=== PATIENT | male | born 1965 | race Caucasian/White ===

== ENCOUNTER 2023-06-25 12:18 | Emergency (ER) | payer MEDICARE, SELFPAY ==
[2023-06-25 12:26] VITALS: BP 120/68; PULSE 82; RESP 20; TEMP 37.2; O2SAT 93; BMI 37.0
--- NOTE | 2023-06-25 13:07 | XR_ITS ---
The [address] [address] Patient Name: ZOIE HEATH MRN: [id number] date: 1965 Sex: M Assigned Patient Location: ER Current Patient Location: ED.MAIN Accession/Order Number: [id number] Exam Date: 06/25/2023 13:15 Report Date: 06/25/2023 13:43 At the request of: VIKY ESPINOZA Procedure: XR chest 2V EXAM: XR chest 2V HISTORY: cough COMPARISON: Chest study dated 11/05/2014 TECHNIQUE: PA and lateral views of the chest were obtained. FINDINGS: Heart and mediastinal contours are unremarkable in appearance. Small faint patchy density overlying the right mid lung field laterally on PA view which may represent atelectatic, fibrotic and/or infiltrative change. No obvious pneumothorax. Mild degenerative changes in the dorsal spine. XR/XR chest 2V IMPRESSION: Mild atelectatic and/or fibrotic and/or minimal infiltrative changes in the right midlung field laterally as described. Follow-up as needed. Electronically authenticated by: OSMANI DINH Date: 06/25/2023 13:43
[2023-06-25 13:45] LABS: Influenza Virus A Antigen Negative; Influenza Virus B Antigen Negative; Internal Control Within Normal Limits
[2023-06-25 13:46] LABS: SARS-CoV-2 Ag NEGATIVE (NEGATIVE)
--- NOTE | 2023-06-25 13:56 | ED.GENADUL1 ---
HPI - General Adult General Chief complaint: Upper Respiratory Infection Stated complaint: URTI Time Seen by Provider: 06/25/23 12:24 Source: patient Mode of arrival: walk-in Limitations: no limitations History of Present Illness HPI narrative: cough for almost 2 weeks. Initially had ear fullness and nasal congestion but that is gone now after taking mucinex and robitussin. However the cough continues and he feels more congestion in my chest . He vomited once but no additional vomiting or any diarrhea. No urinary symptoms. No chest pain, dizziness or syncope. no shortness of breath. Related Data Home Medications Medication Instructions Recorded Confirmed aspirin 81 mg capsule 81 mg PO DAILY 06/25/23 06/25/23 carbamazepine 200 mg 200 mg PO BID 06/25/23 06/25/23 capsule,extended release [id number] cetirizine 10 mg tablet (All Day 10 mg PO DAILY 06/25/23 06/25/23 Allergy (cetirizine)) escitalopram oxalate 20 mg tablet 20 mg PO QDAY 06/25/23 06/25/23 (Lexapro) magnesium 200 mg tablet 400 mg PO BID 06/25/23 06/25/23 montelukast 10 mg tablet 10 mg PO DAILY 06/25/23 06/25/23 (Singulair) mycophenolate sodium 180 mg 1,080 mg PO BID 06/25/23 06/25/23 tablet,delayed release (Myfortic) olanzapine 2.5 mg tablet 2.5 mg PO DAILY 06/25/23 06/25/23 ropinirole 0.5 mg tablet 0.5 mg PO DAILY 06/25/23 06/25/23 ropinirole 0.5 mg tablet 0.5 mg PO DAILY 06/25/23 06/25/23 Previous Rx's Medication Instructions Recorded azithromycin 250 mg tablet See Rx Instructions PO .COMPLEX #6 06/25/23 tabs mumklwiipqtsmos-mhdebzakpcniorp-TU 5 ml PO Q6H PRN cold symptoms #118 06/25/23 2 mg-30 mg-10 mg/5 mL oral syrup mL (Bromfed DM) Allergies Allergy/AdvReac Type Severity Reaction Status Date / Time NSAIDS (Non-Steroidal Allergy Verified 06/25/23 12:26 Anti-Inflamma PFSH PFSH Social History Smoking status: Former smoker Exam Narrative Exam Narrative: Nurses notes and vital signs reviewed and patient is not hypoxic -but room air pulse ox is 93%. afebrile General: Well-appearing and in no apparent distress. Skin: Warm, dry, no pallor noted. No rash. Head: Normocephalic, atraumatic. Neck: Supple, non-tender. No cervical lymphadenopathy Eye: Pupils are equal, round and EOMI. No scleral icterus. Ears, Nose, Mouth, and Throat: TM are clear, no posterior oropharynx erythema or nasal mucosal hypertrophy, uvula is mid-line Oral mucosa is moist Cardiovascular: Regular Rate and Rhythm without murmur, gallop or rub. Respiratory: No accessory muscle use or respiratory distress. Lungs with scattered rhonchi GI: Abdomen is soft, non-distended. Normal bowel sounds. No tenderness to palpation. No rebound, guarding, or rigidity noted. Neurological: A&O x4. No cranial nerve dysfunction observed. No truncal ataxia. Moves all extremities. Sensation intact. Psychiatric: Cooperative and interactive. Normal mood and affect. Constitutional Vital Signs, click to edit/add: Last Vital Signs Temp 99.0 F 06/25/23 12:26 Pulse 82 06/25/23 12:26 Resp 20 06/25/23 12:26 BP 120/68 06/25/23 12: Pulse Ox 93 L 06/25/23 12:26 Course Vital Signs Vital signs: Vital Signs Temperature 99.0 F 06/25/23 12:26 Pulse Rate 82 06/25/23 12:26 Respiratory Rate 20 06/25/23 12:26 Blood Pressure 120/68 06/25/23 12:26 Pulse Oximetry 93 L 06/25/23 12:26 Temperature 99.0 F 06/25/23 12:26 Pulse Rate 82 06/25/23 12:26 Respiratory Rate 20 06/25/23 12:26 Blood Pressure 120/68 06/25/23 12:26 Pulse Oximetry 93 L 06/25/23 12:26 Medical Decision Making MDM Narrative Medical decision making narrative: Swabs for influenza and covid were negative. Symptoms over 2 weeks and now in chest with continued sputum production. Patient discharged home with prescriptions for bromfed syrup for the cough a course of azithromycin. due to duration of illness. ED return if he worsens. Patient advised to rest, stay at home, practice social distancing, take Motrin and Tylenol for pain and fever if not allergic, stay well hydrated with Gatorade or similar drinks if vomiting or eat as tolerated if not and take any meds as prescribed. Reviewed reasons to return including rapid increase in respiratory rate, shortness of breath, confusion, inability to keep down sips of swallowed liquids for more than 24 hours. Asked patient to encourage any ill contacts to stay home and practice similar advice. Lab Data Lab results reviewed: Yes I reviewed the patient's lab results Labs: Lab Results 06/25/23 Range/Units 13:20 SARS-CoV-2 (PCR) Negative (NEGATIVE) Influenza Type A Ag Negative Influenza Type B Ag Negative Discharge Plan Discharge Chief Complaint: Upper Respiratory Infection Clinical Impression: Upper respiratory infection Time of Disposition Decision: 13:59 Prescriptions / Home Meds: New hsrixqmktdvyatu-ractsrkfl-YM [Bromfed DM] 2-30-10 mg/5 mL syrup 5 ml PO Q6H PRN (Reason: cold symptoms) Qty: 118 0RF azithromycin 250 mg tablet See Rx Instructions .ROUTE .COMPLEX Qty: 6 0RF Rx Instructions: For 250 mg dose pack: take 500 mg today (day 1), then 250 mg for 4 days (days 2-5) No Action olanzapine 2.5 mg tablet 2.5 mg PO DAILY magnesium 200 mg tablet 400 mg PO BID cetirizine [All Day Allergy (cetirizine)] 10 mg tablet 10 mg PO DAILY montelukast [Singulair] 10 mg tablet 10 mg PO DAILY ropinirole 0.5 mg tablet 0.5 mg PO DAILY ropinirole 0.5 mg tablet 0.5 mg PO DAILY aspirin 81 mg capsule 81 mg PO DAILY carbamazepine 200 mg capsule, ER multiphase 12 hr 200 mg PO BID escitalopram oxalate [Lexapro] 20 mg tablet 20 mg PO QDAY mycophenolate sodium [Myfortic] 180 mg tablet,delayed release (DR/EC) 1,080 mg PO BID Instructions: Upper Respiratory Infection (ED) Stand Alone Forms: Portal Instructions Referrals: Physician,Non-Staff, MD [Primary Care Provider] - 1 week
[2023-06-26 10:05] LABS: SARS-CoV-2 NAA NOT DETECTED (NOT DETECTE)
== END 2023-06-25 14:10 | disposition home or self-care (01) ==
PROVIDERS: Emergency Provider Emergency Medicine
DX: J06.9 Acute upper respiratory infection, unspecified (principal); Z79.82 Long term (current) use of aspirin; Z79.899 Other long term (current) drug therapy; Z87.891 Personal history of nicotine dependence; Z20.822 Contact with and (suspected) exposure to COVID-19
CPT/HCPCS: 71046; 87635; 87804; 87811; 99284

== ENCOUNTER 2023-10-29 22:13 | Emergency (ER) | payer MEDICARE, SELFPAY ==
[2023-10-29 22:22] VITALS: BP 124/79; PULSE 83; TEMP 37; O2SAT 97; BMI 36.3
--- OUTSIDE RECORDS SUMMARY | 2023-10-29 22:27 | XMS_ITS | CCD ---
Author Organization [facility] Care Team Providers Care 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 Name Role Phone UNKNOWN, PROVIDER Unavailable Unavailable CALL, DOCTOR ON Unavailable Unavailable CALL, DOCTOR ON Unavailable Unavailable KHAVARI, FERESHTE Unavailable Unavailable UNKNOWN, PROVIDER Unavailable Unavailable EL-HINNAWI, ARIEL M Unavailable Unavailable EL-HINNAWI, ARIEL M Unavailable Unavailable KHAVARI, FERESHTE Unavailable Unavailable UNKNOWN, PROVIDER Unavailable Unavailable CALL, DOCTOR ON Unavailable Unavailable CALL, DOCTOR ON Unavailable Unavailable KHAVARI, FERESHTE Unavailable Unavailable KHAVARI, FERESHTE Unavailable Unavailable EL-HINNAWI, ARIEL M Unavailable Unavailable EL-HINNAWI, ARIEL M Unavailable Unavailable UNKNOWN, PROVIDER Unavailable Unavailable KHAVARI, FERESHTE Unavailable Unavailable EL-HINNAWI, ARIEL M Unavailable Unavailable EL-HINNAWI, ARIEL M Unavailable Unavailable UNKNOWN, PROVIDER Unavailable Unavailable Transplant, Coordinator Unavailable Janet, Mariana A Unavailable [phone] FOSTER, JORGE Unavailable Unavailable FOSTER, JORGE Unavailable Unavailable FOSTER, JORGE Unavailable Unavailable AVERY, ROSY L Unavailable Unavailable AVERY, ROSY L Unavailable Unavailable SELF, SELF Unavailable Unavailable AVERY, ROSY L Unavailable Unavailable AVERY, ROSY L Unavailable Unavailable AVERY, ROSY L Unavailable Unavailable SELF, SELF Unavailable Unavailable FOSTER, JORGE Unavailable Unavailable FOSTER, JORGE Unavailable Unavailable JONES, TUCKER Unavailable Unavailable JONES, TUCKER Unavailable Unavailable Eduardubachiterrell, Mariana A Primary Care Unavailable Familia Stringer Attending Unavailable Transplant, Coordinator Unavailable Janet TRACK RIDER-MACHINE STAMPER, Mariana A Primary Care Provide r Transplant, Coordinator Unavailable Transplant, Coordinator Unavailable Trubachik TRACK RIDER-MACHINE STAMPER, Mariana A Primary Care Provide r Trubachik MACHINE STAMPER, Mariana Pollo Primary Care Provider [place]ach[place] TRACK RIDER-MACHINE STAMPER, Mariana A Primary Care Provide r JASVIR VILCHIS Attending Unavailable TRUBACHIK, MARIANA POLLO Primary Care Unavailable JASVIR VILCHIS Attending Unavailable TRUBACHIK, MARIANA POLLO Primary Care Unavailable CHARLEY PASTRANA Attending Unavailable TRUBACHIK, MARIANA POLLO Primary Care Unavailable TRUBACHIK, MARIANA POLLO Primary Care Unavailable MARY MOREIRA Attending Unavailable Transplant, Coordinator Unavailable [phone] Trubach[place] TRACK RIDER-MACHINE STAMPER, Mariana A Primary Care Provide r Transplant, Coordinator Unavailable Trubachik TRACK RIDER-MACHINE STAMPER, Mariana A Primary Care Provide r TRUBACHIK, MARIANA A Primary Care Unavailable TRUBACHIK, MARIANA A Primary Care Unavailable ISABELA TRUONG Attending Unavailable TRUBACHIK, MARIANA A Primary Care Unavailable ELIZABETH HERNADEZ Attending Unavailable TRUBACHIK, MARIANA A Primary Care Unavailable RAHEEM ARCHULETA Attending Unavailable JACKSON SHAFFER Attending Unavailable TRUBACHIK, MARIANA A Primary Care Unavailable TRUBACHIK, MARIANA A Primary Care Unavailable SANJIV, COLIN Referring Unavailable SANJIV, COLIN Attending Unavailable TRUBACHIK, MARIANA A Primary Care Unavailable CATY PENN Referring Unavailabl e CATY PENN Attending Unavailabl e TRUBACHIK, MARIANA A Primary Care Unavailable SANJIV, COLIN Referring Unavailable SANJIV, COLIN Attending Unavailable TRUBACHIK, MARIANA A Primary Care Unavailable TRUBACHIK, MARIANA A Primary Care Unavailable TRUBACHIK, MARIANA A Attending Unavailable SELF, SELF Referring Unavailable TRUBACHIK, MARIANA A Primary Care Unavailable TRUBACHIK, MARIANA A Attending Unavailable SELF, SELF Referring Unavailable BARK, ILENE E Attending Unavailable TRUBACHIK, MARIANA A Primary Care Unavailable TRUBACHIK, MARIANA A Referring Unavailable BARK, ILENE E Referring Unavailable TRUBACHIK, MARIANA A Primary Care Unavailable BARK, ILENE E Attending Unavailable SELF, SELF Referring Unavailable TRUBACHIK, MARIANA A Primary Care Unavailable CATY PENN Referring Unavaila ble GULSHAN, SCHUYLER K Attending Unavailable TRUBACHIK, MARIANA A Primary Care Unavailable REYNALDO MARES Attending Unavailable TRUBACHIK, MARIANA A Primary Care Unavailable SELF, SELF Referring Unavailable TRUBACHIK, MARIANA A Primary Care Unavailable SALBADOR LAWRENCE Attending Unavailable SELF, SELF Referring Unavailable TRUBACHIK, MARIANA A Primary Care Unavailable SELF, SELF Referring Unavailable TYCHONIEVICHCATY Attending Unavaila ble SELF, SELF Referring Unavailable TRUBACHIK, MARIANA A Primary Care Unavailable TYCHONIEVCATY WAYNE Attending Unavaila ble TRUBACHIK, MARIANA A Primary Care Unavailable TRUBACHIK, MARIANA A Referring Unavailable TYCHOCATY CHAPMAN Attending Unavaila ble TRUBACHIK, MARIANA A Primary Care Unavailable TRUBACHIK, MARIANA A Referring Unavailable TYCATY MARTI Attending Unavaila ble TYCHONIEVCATY WAYNE Referring Unavaila ble TRUBACHIK, MARIANA A Primary Care Unavailable TYCHOCATY CHAPMAN Attending Unavaila ble Allergies Allergy Classification Reported Allergen(s) Allergy Type Date of Onset Reaction(s) Facility (20 sources) *Seasonal Propensity to adverse reactions to substance 04-21-2021 [facility] (6 sources) Non-steroidal anti-inflammator y agent Propensity to adverse reactions to drug 04-16-2023 [facility] Medications Current Medications Medication Drug Class(es) Dates Sig (Normalized) Sig (Original) acyclovir 0.05 mg/mg topical ointment (5 sources) Herpesvirus Nucleoside Analog DNA Polymerase Inhibitor, Herpes Simplex Virus Nucleoside Analog DNA Polymerase Inhibitor, Herpes Zoster Virus Nucleoside Analog DNA Polymerase Inhibitor Start: 03-28-2018 acyclovir 5 % Ointment Apply topically to all lesions 6 times daily X 7 days. 1 Tube 0 03/28/2018 Active [id number] 200 actuat albuterol 0.09 mg/actuat metered dose inhaler (5 sources) beta2-Adrenergic Agonist Start: 08-30-2022 End: 09-06-2022 take 2 puff(s) by inhalation every six hours as needed for wheezing albuterol 90 mcg/actuation inhaler Indications: Viral URI Inhale 2 (two) puffs every 6 (six) hours as needed for wheezing . 6.7 g 0 08/30/2022 Active alclometasone dipropionate 0.5 mg/ml topical cream (20 sources) Corticosteroid Start: 04-01-2020 Alclometasone Dipropionate 0.05 % Cream Indications: Seborrheic dermatitis Apply to affected area 1-2 times daily when skin flared 45 g 3 04/01/2020 Active Start: 04-01-2020 alclometasone (ACLOVATE) 0.05 % cream Apply to affected area 1-2 times daily when skin flared 0 04/01/2020 Active amoxicillin 875 mg / clavulanate 125 mg oral tablet (3 sources) Penicillin-class Antibacterial Start: 10-26-2022 take 1 tablet by mouth twice daily Amoxicillin-clavulanate 875-125 MG tablet Take 1 tablet by mouth Twice daily. 0 10/26/2022 Active asenapine 2.5 mg sublingual tablet (5 sources) Atypical Antipsychotic Start: 01-14-2018 Asenapine Maleate (SAPHRIS) 2.5 MG Tab SL 2.5 mg at bedtime. 01/14/2018 Active aspirin 81 mg chewable tablet (20 sources) Platelet Aggregation Inhibitor, Nonsteroidal Anti-inflammatory Drug Start: 10-14-2017 aspirin 81 MG Chew Tab chewable tablet Chew 1 tablet daily every morning. ..Please obtain future renewals of this prescription from your primary care provider. 30 tablet 11 10/14/2017 Active azithromycin 250 mg oral tablet (2 sources) Macrolide Antimicrobial Start: 09-02-2022 End: 09-07-2022 take 2 tablets by mouth once daily, then take 1 tablet by mouth once daily azithromycin (ZITHROMAX) 250 MG tablet Indications: Sinusitis, unspecified chronicity, unspecified location Take 2 (two) tablets (500 mg total) by mouth daily for 1 day, THEN 1 (one) tablet (250 mg total) daily for 4 days. 6 tablet 0 09/02/2022 09/07/2022 Active benzonatate 100 mg oral capsule (4 sources) Non-narcotic Antitussive Start: 08-30-2022 End: 09-06-2022 take 1 capsule by mouth three times daily as needed for cough benzonatate (TESSALON) 100 MG capsule Indications: Viral URI Take 1 (one) capsule (100 mg total) by mouth 3 (three) times a day as needed for cough . 20 capsule 0 08/30/2022 09/06/2022 Active calcium citrate 1200 mg oral tablet (20 sources) take 1200 mg by mouth twice daily CALCIUM CITRATE PO Take 1,200 mg by mouth 2 times daily. Active take 1200 mg by mouth once daily CALCIUM CITRATE PO Take 1,200 mg by mouth daily. 0 Active carBAMazepine 100 mg chewable tablet (20 sources) Mood Stabilizer Start: 04-21-2021 carBAMazepine 100 MG Chew Tab Take 2 tablets daily in the morning and 3 tablets daily in the evening 150 tablet 04/21/2021 Active Start: 12-30-2017 carBAMazepine 100 MG Chew Tab Take 200 mg in the morning & take 200 mg tab along with a 100 mg tab for a total dose of 300 mg in the evening. 14 tablet 0 12/30/2017 Active Start: 12-30-2017 carBAMazepine 200 MG Tab Take 200 mg in the morning & take 200 mg tab along with a 100 mg tab for a total dose of 300 mg in the evening. 28 tablet 0 12/30/2017 Active cetirizine hydrochloride 10 mg oral tablet (20 sources) Histamine-1 Receptor Antagonist Start: 06-28-2023 take 1 tablet by mouth once daily Cetirizine 10 MG tablet Take 1 tablet by mouth daily. 90 tablet 1 06/28/2023 Active Start: 12-05-2021 End: 10-29-2022 take 1 tablet by mouth once daily Cetirizine 10 MG tablet Take 1 tablet by mouth daily. 90 tablet 1 10/29/2022 Active Start: 07-10-2021 take 1 tablet by bernice th once daily cetirizine 10 MG tablet Take 1 tablet by mouth daily. 90 tablet 1 07/10/2021 Active Start: 02-11-2018 End: 05-20-2018 take 1 tablet by mouth once daily cetirizine 10 MG Tab tablet Take 1 tablet by mouth daily. 30 tablet 5 05/20/2018 Active chlorthalidone 25 mg oral tablet (6 sources) Thiazide-like Diuretic take 25 mg by mouth once daily Chlorthalidone (THALITONE PO) Take 25 mg by mouth daily. Active escitalopram 20 mg oral tablet (20 sources) Serotonin Reuptake Inhibitor Start: 021 take 1 tablet by mouth once daily in the morning escitalopram 20 MG tablet Take 1 tablet by mouth daily every morning. 30 tablet 04/21/2021 Active Start: 04-29-2015 take 1 tablet by bernice th at bedtime escitalopram 20 MG Tab tablet Take 20 mg by mouth at bedtime. 04/29/2015 Active fluticasone propionate 0.05 mg/actuat metered dose nasal spray (5 sources) Corticosteroid Start: 04-15-2017 fluticasone 50 MCG/ACT Suspension nasal spray 2 sprays by Nasal route daily. 1 Bottle 2 04/15/2017 Active ketoconazole 20 mg/ml topical cream (20 sources) Azole Antifungal Start: 04-01-2020 ketoconazole 2 % Cream cream Indications: Seborrheic dermatitis Apply to affected area up to twice daily --> okay to use every day without breaks if needed 30 g 3 04/01/2020 Active Start: 04-01-2020 ketoconazole ( NIZORAL) 2 % cream Apply to affected area up to twice daily --> okay to use every day without breaks if needed 0 04/01/2020 Active Start: 11-05-2017 ketoconazole 2 % Shampoo shampoo Apply 1 Application topically 3 times weekly. 120 mL 5 11/05/2017 Active losartan potassium 25 mg oral tablet (20 sources) Angiotensin 2 Receptor Matthew Start: 09-19-2022 take 1 tablet by mouth once daily Losartan 25 MG tablet Take 1 tablet by mouth daily. 90 tablet 3 09/19/2022 Active Start: 09-15-2020 End: 09-18-2021 take 1 tablet by mouth once daily Losartan 25 MG tablet Take 1 tablet by mouth daily. 90 tablet 3 09/19/2022 Active Magnesium Oxide (20 sources) Start: 09-18-2021 take 1 tablet by bernice th twice daily magnesium oxide 400 (241.3 Mg) MG tablet Take 1 tablet by mouth 2 times daily. 180 tablet 3 09/18/2021 Active Start: 09-15-2020 End: 09-18-2021 take 1 tablet by mouth twice daily magnesium oxide 400 (241.3 Mg) MG tablet Take 1 tablet by mouth 2 times daily. 180 tablet 3 09/18/2021 Active Start: 02-27-2018 take 1 tablet by bernice th twice daily magnesium oxide 400 (241.3 Mg) MG Tab tablet Take 1 tablet by mouth 2 times daily. 60 tablet 11 02/27/2018 Active montelukast 10 mg oral tablet (20 sources) Leukotriene Receptor Antagonist Start: 06-28-2023 take 1 tablet by mouth once daily Montelukast 10 MG tablet Take 1 tablet by mouth daily. 90 tablet 1 06/28/2023 Active Start: 12-05-2021 End: 10-29-2022 take 1 tablet by mouth once daily Montelukast 10 MG tablet Take 1 tablet by mouth daily. 90 tablet 1 10/29/2022 Active Start: 07-10-2021 take 1 tablet by bernice th once daily montelukast 10 MG tablet Take 1 tablet by mouth daily. 90 tablet 1 07/10/2021 Active Start: 03-11-2018 take 1 tablet by bernice th once daily montelukast 10 MG Tab tablet Take 1 tablet by mouth daily. 30 tablet 5 03/11/2018 Active Multiple Vitamins-Minerals (Multivitamins) Chew Tab (20 sources) Start: 08-12-2019 Multiple Vitam ins-Minerals (Multivitamins) Chew Tab Indications: S/P laparoscopic sleeve gastrectomy Chew 2 tablets daily. May take pediatric or adult chalky chewable vitamin; double the recommended daily dose. 08/12/2019 Active Start: 08-12-2019 Multiple Vitam ins-Minerals (Multivitamins) Chew Tab Indications: S/P laparoscopic sleeve gastrectomy Chew 2 tablets daily. May take pediatric or adult chalky chewable vitamin; double the recommended daily dose. 0 08/12/2019 Active mycophenolic acid 180 mg delayed release oral tablet (20 sources) Antimetabolite Immunosuppressant Start: 09-18-2021 take 3 tablets by mouth every twelve hours mycophenolate sodium (MYFORTIC) 180 MG EC tablet Take 3 (three) tablets (540 mg total) by mouth every 12 (twelve) hours . 0 09/18/2021 Active Start: 05-18-2021 End: 09-18-2021 take 3 tablets by mouth every twelve hours mycophenolate sodium (MYFORTIC) [address] Take 3 tablets by mouth every 12 hours. 560 tablet 3 09/18/2021 Active Start: 09-18-2017 take 2 tablets by mo [facility] every twelve hours mycophenolate sodium (generic) [address] Take 2 tablets by mouth every 12 hours. 120 tablet 11 09/18/2017 Active ofloxacin 3 mg/ml ophthalmic solution (4 sources) Quinolone Antimicrobial Start: 04-21-2022 End: 09-08-2022 take 1 drop(s) into the eye(s) four times daily ofloxacin 0.3 % ophthalmic solution Place 1 drop in right eye 4 times daily. 5 mL 0 04/21/2022 Active OLANZapine 2.5 mg oral tablet (20 sources) Atypical Antipsychotic Start: 04-21-2021 take 1 tablet by mouth once daily in the morning OLANZapine 2.5 MG tablet Take 1 tablet by mouth daily every morning. 30 tablet 04/21/2021 Active ondansetron 4 mg oral tablet (5 sources) Serotonin-3 Receptor Antagonist Start: 02-22-2017 take 1 tablet by mouth every eight hours as needed ondansetron 4 MG Tab take 1 tablet by mouth every 8 hours as needed for Nausea / Vomiting or Nausea.. 90 tablet 1 02/22/2017 Active pantoprazole 40 mg delayed release oral tablet (8 sources) Proton Pump Inhibitor Start: 03-07-2023 take 1 tablet by mouth twice daily Pantoprazole (Protonix) [address] tablet DR Take 1 tablet by mouth 2 times daily. 180 tablet 2 03/07/2023 Active Start: 12-10-2022 take 1 tablet by bernice twice daily Pantoprazole (Protonix) [address] tablet DR Take 1 tablet by mouth 2 times daily. 180 tablet 0 12/10/2022 Active polymyxin b 72484 unt/ml / trimethoprim 1 mg/ml ophthalmic solution (3 sources) Dihydrofolate Reductase Inhibitor Antibacterial, Polymyxin-class Antibacterial Start: 09-02-2022 End: 09-09-2022 take 1 drop(s) into the eye(s) every six hours trimethoprim-polymyxin b (POLYTRIM) 10,000 unit- 1 mg/mL Drop ophthalmic solution Indications: Acute conjunctivitis of both eyes, unspecified acute conjunctivitis type Apply 1 (one) drop to eye every 6 (six) hours for 7 days . 10 mL 0 09/02/2022 09/03/2022 Discontinued Start: 03-02-2022 End: 03-09-2022 take 1 drop(s) into the eye(s) every four hours polymyxin b-trimethoprim 49476-8.1 UNIT/ML-% Solution ophthalmic solution Place 1 drop in both eyes every 4 hours for 7 days. 10 mL 0 03/02/2022 03/09/2022 Active rOPINIRole 0.5 mg oral tablet (20 sources) Nonergot Dopamine Agonist take 1 tablet by mouth at bedtime rOPINIRole 0.5 MG tablet Take 1 tablet by mouth at bedtime. Active rOPINIRole 0.25 MG Tab take 0.25 mg by mouth at bedtime.. Active sildenafil 100 mg oral tablet (20 sources) Phosphodiesterase 5 Inhibitor Start: 10-09-2021 sildenafil citrate 100 MG tablet Take 0.5-1 tablets by mouth as needed for Erectile Dysfunction. 30 tablet 2 10/09/2021 Active Start: 10-09-2021 sildenafiL ( AGRA) 100 MG tablet Take 0.5 (one-half) tablet to 1 (one) tablet (50-100 mg total) by mouth as needed . 0 10/09/2021 Active sodium zirconium cyclosilicate 5000 mg powder for oral suspension (6 sources) Sodium Zirconium Cyclosilicate (Lokelma) 5 g Pack powder Take 2 packets by mouth daily. Active tacrolimus 1 mg oral capsule (20 sources) Calcineurin Inhibitor Immunosuppressant Start: 021 End: 022 take 1 capsule by mouth twice daily tacrolimus (PROGRAF) 1 MG capsule Take 5 capsules by mouth 2 times daily. 900 capsule 3 09/18/2021 Active Start: 02-27-2018 take 6 capsules by m outh every twelve hours, then take 1 capsule by mouth tacrolimus (generic) 1 MG Cap capsule Take 6 capsules by mouth every 12 hours. Diagnosis Code: ICD 9:V42.0, ICD 10:Z94.0 - Kidney transplant 09/25/2016 360 capsule 11 02/27/2018 Active terbinafine hydrochloride 10 mg/ml topical cream (20 sources) Allylamine Antifungal Start: 04-01-2020 terbinafine 1 % Crea m cream Indications: Tinea pedis, unspecified laterality Apply to affected area (feet) twice daily 36 g 3 04/01/2020 Active testosterone cypionate 200 mg/ml injectable solution (9 sources) Androgen Start: 03-12-2022 Testosterone C ypionate 200 MG/ML Solution Indications: Low testosterone in male Inject 200 mg as directed every 28 days. 5 mL 1 03/12/2022 Active Start: 03-12-2022 testosterone c ypionate (DEPOTESTOTERONE CYPIONATE) 200 mg/mL injection Inject 1 mL (200 mg total) as directed every 28 days . 0 03/12/2022 Active Start: 03-02-2022 Testosterone 1 .62 % Gel Indications: Low testosterone in male 40.5 mg applied once daily in the morning to the shoulder and upper arms 75 g 0 03/02/2022 Active vitamin b12 0.5 mg oral tablet (20 sources) Vitamin B12 Start: 09-26-2021 take 2 tablets by mouth once daily cyanocobalamin 500 MCG tablet Take 2 tablets by mouth daily. 60 tablet 11 09/26/2021 Active Start: 08-22-2020 take 2 tablets by mo uth once daily cyanocobalamin 500 MCG tablet Take 2 tablets by mouth daily. 60 tablet 11 08/22/2020 Active Completed/Discontinued Medications Medication Drug Class(es) Dates Sig (Normalized) Sig (Original) acetaminophen 325 mg oral tablet (11 sources) Start: 03-11-2023 End: 03-11-2023 Acetaminophen (TYLENOL) tablet 650 mg Start: 01-25-2022 End: 12-10-2022 take 3 tablets by mouth every eight hours acetaminophen 325 MG tablet Take 3 tablets by mouth every 8 hours for 5 days. 45 tablet 0 01/25/2022 12/10/2022 Discontinued (Therapy completed) bacitracin 0.5 unt/mg / neomycin 0.0035 mg/mg / polymyxin b 10 unt/mg topical ointment (1 source) Aminoglycoside Antibacterial, Polymyxin-class Antibacterial Start: 10-24-2022 End: 10-24-2022 hztvqnec-lngcqqolfw-izypdgsv n (NEOSPORIN) 400-5-5000 ointment 1 Application. cefTRIAXone 1000 mg injection (2 sources) Cephalosporin Antibacterial Start: 10-26-2022 End: 10-26-2022 cefTRIAXone (ROCEPHIN) injec tion 1,000 mg Start: 10-26-2022 End: 10-26-2022 cefTRIAXone (ROCEPHIN) injec tion 1,000 mg famotidine 20 mg oral tablet (1 source) Histamine-2 Receptor Antagonist Start: 04-21-2021 End: 09-18-2021 take 1 tablet by mouth twice daily famotidine 20 MG tablet Take 1 tablet by mouth 2 times daily. 60 tablet 5 04/21/2021 09/18/2021 Discontinued omeprazole 40 mg delayed release oral capsule (20 sources) Proton Pump Inhibitor Start: 11-09-2022 End: 12-10-2022 take 1 capsule by mouth twice daily omeprazole [address] capsule Indications: Gastroesophageal reflux disease without esophagitis , S/P laparoscopic sleeve gastrectomy Take 1 capsule by mouth 2 times daily. 180 capsule 3 11/09/2022 12/10/2022 Discontinued (Alternate therapy) Start: 02-23-2022 End: 10-29-2022 take 1 capsule by mouth once daily omeprazole [address] capsule Take 1 capsule by mouth daily. 90 capsule 0 09/05/2022 10/29/2022 Discontinued (Therapy completed) Start: 08-17-2021 End: 11-03-2021 take 1 capsule by mouth once daily omeprazole [address] capsule Indications: Gastroesophageal reflux disease without esophagitis , S/P laparoscopic sleeve gastrectomy Take 1 capsule by mouth daily. 90 capsule 0 11/03/2021 Active Start: 04-29-2015 take 1 tablet by bernice th every twelve hours Omeprazole [address] take 20 mg by mouth every 12 hours. 04/29/2015 Active oxyCODONE hydrochloride 5 mg oral tablet (1 source) Opioid Agonist Start: 01-25-2022 End: 03-02-2022 oxyCODONE 5 MG tablet Indications: Polycystic kidney disease Take 1 tablet by mouth every 6 hours as needed for Moderate Pain or Severe Pain for up to 5 doses. 5 tablet 0 01/25/2022 03/02/2022 Discontinued (Therapy completed) patiromer 8400 mg powder for oral suspension (4 sources) Potassium Binder End: 04-16-2023 patiromer 8.4 g Pack Take by mouth daily. 0 04/16/2023 Discontinued (Therapy completed) phentermine hydrochloride 8 mg oral tablet (3 sources) Sympathomimetic Amine Anorectic Start: 03-07-2023 End: 04-16-2023 take 36-36.9 tablets by mouth once daily Phentermine HCl 8 MG tablet Indications: Class 2 severe obesity with serious comorbidity and body mass index (BMI) of 36.0 to 36.9 in adult, unspecified obesity type , Gastroesophageal reflux disease without esophagitis , S/P laparoscopic sleeve gastrectomy 1 tab PO QD 30 tablet 0 03/07/2023 04/16/2023 Discontinued (Therapy completed) Start: 12-10-2022 End: 01-09-2023 take 36-36.9 tablets by mouth once daily in the morning Phentermine HCl 8 MG tablet Indications: Class 2 severe obesity with serious comorbidity and body mass index (BMI) of 36.0 to 36.9 in adult, unspecified obesity type , Gastroesophageal reflux disease without esophagitis , S/P laparoscopic sleeve gastrectomy Take 0.5 tab PO QAM x 7d; then if BP 30 tablet 0 12/10/2022 01/09/2023 Active proparacaine hydrochloride 5 mg/ml ophthalmic solution (1 source) Local Anesthetic Start: 04-21-2022 End: 04-21-2022 proparacaine (ALCAINE) 0.5 % ophthalmic solution 2 drop Problems Active Problems Problem Classification Problem Date Documented Date Episodic/Chronic Administrative/social admission (20 sources) Patient encounter status; 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: [Dietary counseling and surveillance] Onset: 9 Resolved: 0 01-05-2020 Episodic Anxiety disorders (20 sources) Anxiety disorder; 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: [Anxiety disorder, unspecified] Onset: 7 02-19-2017 Chronic Chronic kidney disease (20 sources) End stage renal disease; 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: [History of renal transplant] Onset: 7 Resolved: 2 09-24-2016 Chronic Chronic kidney disease (2 sources) Chronic kidney disease; 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: [Chronic kidney disease, stage 3a] Onset: 2 E Codes: Natural/environment (3 sources) Dog bite - wound; 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: [Bitten by dog, initial encounter] Onset: 3 Episodic Esophageal disorders (20 sources) Gastroesophageal reflux disease; 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: [Gastro-esophageal reflux disease without esophagitis] Onset: 4 Resolved: 0 02-19-2017 Chronic Essential hypertension (12 sources) Essential hypertension; 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: [Essential (primary) hypertension] Onset: 2 07-24-2022 Chronic Hyperplasia of prostate (1 source) Benign prostatic hypertrophy with outflow obstruction; 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: [Benign prostatic hyperplasia with lower urinary tract symptoms] Chronic Immunity disorders (20 sources) Immunodeficiency, unspecified; 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: [Immunosuppression] Onset: 7 Resolved: 7 05-21-2017 Chronic Inflammation; infection of eye (except that caused by tuberculosis or sexually transmitteddisease) (5 sources) Acute infectious conjunctivitis; 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: [Unspecified acute conjunctivitis, right eye] Onset: 3 Episodic Miscellaneous mental health disorders (5 sources) Lack or loss of sexual desire; 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] Onset: 4 Chronic Mood disorders (20 sources) Depressive disorder; 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: [Depression] 02-19-2017 Chronic Mood disorders (17 sources) Mood disorders; 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: [Depression, unspecified] Onset: 7 Resolved: 4 11-30-2021 Nutritional deficiencies (20 sources) Vitamin D deficiency; 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: [Vitamin D deficiency, unspecified] Onset: 9 Resolved: 0 04-26-2020 Chronic Nutritional deficiencies (20 sources) Iron deficiency; 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: [Iron deficiency] Onset: 9 Resolved: 0 04-26-2020 Episodic Other aftercare (2 sources) Transplant follow-up; 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: [Encounter for aftercare following other organ transplant] Chronic Other aftercare (2 sources) Taking high risk medication; 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] Episodic Other aftercare (1 source) Long-term current use of immunosuppressive drug; 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] Episodic Other aftercare (1 source) Wound ; 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: [Encounter for other specified surgical aftercare] Episodic Other aftercare (2 sources) 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; 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: [Other custodial (current) drug therapy] Onset: 4 Episodic Other and unspecified benign neoplasm (1 source) Senile angioma; 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: [Hemangioma of skin and subcutaneous tissue] 05-28-2023 Episodic Other and unspecified benign neoplasm (1 source) Melanocytic nevus of lower limb; 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: [Melanocytic nevi of unspecified lower limb, including hip] 05-28-2023 Episodic Other and unspecified benign neoplasm (1 source) Melanocytic nevus of upper limb; 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: [Melanocytic nevi of unspecified upper limb, including shoulder] 05-28-2023 Episodic Other connective tissue disease (20 sources) Nocturnal muscle spasm ; 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: [Other muscle spasm] 04-15-2017 Episodic Other connective tissue disease (1 source) Pain in right foot; 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: [Pain in right foot] 04-19-2023 Episodic Other diseases of kidney and ureters (20 sources) Hyperparathyroidism due to renal insufficiency; 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: [Secondary hyperparathyroidism of renal origin] 09-25-2016 Chronic Other eye disorders (1 source) Red right eye; 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: [Other specified disorders of eye and adnexa] Episodic Other gastrointestinal disorders (20 sources) History of sleeve gastrectomy; 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: [Bariatric surgery status] Onset: 0 09-03-2021 Episodic Other hereditary and degenerative nervous system conditions (12 sources) Restless legs; 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: [Restless legs syndrome] Onset: 2 03-02-2022 Chronic Other male genital disorders (2 sources) Male erectile dysfunction, unspecified; 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: [Impotence of organic origin] Chronic Other nervous system disorders (2 sources) Other chronic pain; 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: [Other chronic pain] Onset: 8 Chronic Other nervous system disorders (1 source) H/O: respiratory disease; 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: [Personal history of other diseases of the nervous system and sense organs] 09-30-2023 Episodic Other nervous system disorders (2 sources) Personal history of other diseases of the nervous system and sense organs; 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: [Personal history of other diseases of the nervous system and sense organs] Onset: 4 Episodic Other non-traumatic joint disorders (2 sources) Pain in right knee; 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: [Pain in right knee] Onset: 8 Episodic Other non-traumatic joint disorders (1 source) Acute ankle pain; 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: [Pain in right ankle and joints of right foot] 04-16-2023 Episodic Other non-traumatic joint disorders (2 sources) Pain in right ankle and joints of right foot; 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: [Pain in right ankle and joints of right foot] Onset: 3 Episodic Other nutritional; endocrine; and metabolic disorders (20 sources) Morbid (severe) obesity due to excess calories; 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: [Severe obesity] Onset: 7 Resolved: 9 05-10-2017 Chronic Other nutritional; endocrine; and metabolic disorders (2 sources) Body mass index (BMI) 35.0-35.9, adult; 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: [Body mass index (BMI) 35.0-35.9, adult] Onset: 4 Chronic Other nutritional; endocrine; and metabolic disorders (2 sources) Body mass index (BMI) 36.0-36.9, adult; 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: [Body mass index (BMI) 36.0-36.9, adult] Onset: 3 Chronic Other screening for suspected conditions (not mental disorders or infectious disease) (7 sources) Blood chemistry abnormal; 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: [Abnormal finding of blood chemistry, unspecified] Onset: 3 Episodic Other skin disorders (1 source) Lentiginosis; 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: [Other melanin hyperpigmentation] 05-28-2023 Episodic Other skin disorders (1 source) Seborrheic keratosis; 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: [Other seborrheic keratosis] 05-28-2023 Episodic Other upper respiratory disease (20 sources) Allergic disposition; 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: [Other allergic rhinitis] Onset: 8 02-11-2018 Chronic Other upper respiratory infections (4 sources) Sinusitis; 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: [Chronic sinusitis, unspecified] Onset: 3 Chronic Other upper respiratory infections (4 sources) Viral upper respiratory tract infection; 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: [Acute upper respiratory infection, unspecified] Onset: 3 Episodic Residual codes; unclassified (20 sources) Obstructive sleep apnea syndrome; 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: [Obstructive sleep apnea (adult) (pediatric)] Onset: 0 Resolved: 0 04-26-2020 Chronic Residual codes; unclassified (2 sources) Obstructive sleep apnea (adult) (pediatric); 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: [Obstructive sleep apnea (adult) (pediatric)] Onset: 4 Chronic Residual codes; unclassified (1 source) Other general symptoms and signs; 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: [Other general symptoms] Episodic Residual codes; unclassified (1 source) At risk of nutritional deficit; 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: [Other specified personal risk factors, not elsewhere classified] 09-30-2023 Episodic Residual codes; unclassified (2 sources) Other specified personal risk factors, not elsewhere classified; 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: [Other specified personal risk factors, not elsewhere classified] Onset: 4 Episodic Residual codes; unclassified (2 sources) Acquired absence of stomach [part of]; 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: [Acquired absence of stomach (part of)] Onset: 4 Episodic Screening and history of mental health and substance abuse codes (14 sources) Ex-smoker; 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: [Personal history of nicotine dependence] Onset: 2 01-21-2022 Episodic Skin and subcutaneous tissue infections (2 sources) Local infection of the skin and subcutaneous tissue, unspecified; 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: [Local infection of the skin and subcutaneous tissue, unspecified] Onset: 3 Episodic Spondylosis; intervertebral disc disorders; other back problems (2 sources) Acute low back pain; 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: [Acute bilateral low back pain without sciatica] Episodic Sprains and strains (10 sources) Sprain of right ankle; 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: [Sprain of unspecified ligament of right ankle, initial encounter] Onset: 3 03-11-2023 Episodic Unclassified (1 source) Follow-up / 145() Onset: 8 Unclassified (1 source) MRI Results / 555() Onset: 8 Unclassified (1 source) Knee Pain / [id number]() Onset: 8 Past or Other Problems Problem Classification Problem Date Documented Da te Episodic/Chronic Abdominal hernia (20 sources) Umbilical hernia without obstruction AND without gangrene ; 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: [Umbilical hernia] Onset: 04-24-2017 Resolved: 01-05-2020 07-16-2017 Episodic Abdominal pain (20 sources) Right lower quadrant pain; 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: [Right lower quadrant pain] Onset: 02-19-2017 Resolved: 02-20-2017 02-20-2017 Episodic Allergic reactions (8 sources) Allergic disposition; 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 degeneration] Onset: 02-11-2018 02-11-2018 Episodic Appendicitis and other appendiceal conditions (20 sources) Appendicitis; 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: [Unspecified appendicitis] Onset: 12-26-2019 Resolved: 01-05-2020 01-05-2020 Episodic Diabetes mellitus without complication (20 sources) Prediabetes; 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: [Prediabetes] Onset: 04-02-2019 Resolved: 04-29-2020 04-29-2020 Episodic Genitourinary congenital anomalies (20 sources) Multiple congenital cysts of kidney; 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] Onset: 09-24-2016 Resolved: 03-02-2022 02-19-2017 Chronic Intestinal obstruction without hernia (20 sources) Partial obstruction of small bowel; 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: [Partial intestinal obstruction, unspecified as to cause] Onset: 02-28-2019 Resolved: 07-07-2019 07-07-2019 Episodic Mycoses (20 sources) Tinea cruris; 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: [Tinea cruris] Onset: 02-11-2018 Resolved: 03-04-2019 02-11-2018 Episodic Neoplasms of unspecified nature or uncertain behavior (3 sources) Neoplasm of uncertain behavior of skin; 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: [Neoplasm of uncertain behavior of skin] Onset: 05-28-2023 05-28-2023 Episodic Open wounds of extremities (6 sources) Laceration of hand without foreign body; 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: [Laceration without foreign body of right hand, initial encounter] Onset: 10-24-2022 Episodic Other aftercare (1 source) Encounter for other specified aftercare; 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: [Encounter for other specified aftercare] Onset: 10-27-2022 Episodic Other and unspecified benign neoplasm (2 sources) Melanocytic nevus of trunk; 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: [Melanocytic nevi of trunk] Onset: 05-28-2023 05-28-2023 Episodic Other and unspecified benign neoplasm (2 sources) Hemangioma of skin and subcutaneous tissue; 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: [Hemangioma of skin and subcutaneous tissue] Onset: 05-28-2023 Episodic Other and unspecified benign neoplasm (2 sources) Melanocytic nevi of unspecified lower limb, including hip; 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: [Melanocytic nevi of unspecified lower limb, including hip] Onset: 05-28-2023 Episodic Other and unspecified benign neoplasm (1 source) Melanocytic nevi of trunk; 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: [Melanocytic nevi of trunk] Onset: 05-28-2023 Episodic Other and unspecified benign neoplasm (2 sources) Melanocytic nevi of unspecified upper limb, including shoulder; 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: [Melanocytic nevi of unspecified upper limb, including shoulder] Onset: 05-28-2023 Episodic Other eye disorders (2 sources) Ocular pain, right eye; 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: [Ocular pain, right eye] Onset: 04-20-2022 Episodic Other eye disorders (2 sources) Other specified disorders of eye and adnexa; 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: [Other specified disorders of eye and adnexa] Onset: 04-21-2022 Episodic Other gastrointestinal disorders (2 sources) Bariatric surgery status; 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: [Bariatric surgery status] Onset: 01-07-2023 Episodic Other lower respiratory disease (20 sources) Snoring; 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: [Snoring] Resolved: 07-07-2019 04-15-2017 Episodic Other non-traumatic joint disorders (2 sources) Knee pain; 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: [Knee Pain] Onset: 01-29-2018 Episodic Other non-traumatic joint disorders (2 sources) Pain in left knee; 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: [Pain in left knee] Onset: 01-15-2018 Episodic Other nutritional; endocrine; and metabolic disorders (20 sources) Obesity, unspecified; 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: [Obese class I] Onset: 02-19-2017 Resolved: 10-29-2022 05-21-2017 Chronic Other nutritional; endocrine; and metabolic disorders (20 sources) Obesity; 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: [Obesity, unspecified] Resolved: 04-15-2017 04-15-2017 Chronic Other nutritional; endocrine; and metabolic disorders (20 sources) Body mass index 40+ - severely obese; 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: [Morbid (severe) obesity due to excess calories] Onset: 02-28-2019 Resolved: 01-05-2020 01-05-2020 Chronic Other nutritional; endocrine; and metabolic disorders (20 sources) Morbid obesity; 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: [Morbid (severe) obesity due to excess calories] Onset: 07-16-2019 Resolved: 01-05-2020 01-05-2020 Chronic Other nutritional; endocrine; and metabolic disorders (20 sources) Weight gain; 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: [Abnormal weight gain] Onset: 04-02-2019 Resolved: 01-05-2020 01-05-2020 Episodic Other skin disorders (2 sources) Other melanin hyperpigmentation; 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: [Other melanin hyperpigmentation] Onset: 05-28-2023 Episodic Other skin disorders (2 sources) Other seborrheic keratosis; 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: [Other seborrheic keratosis] Onset: 05-28-2023 Episodic Residual codes; unclassified (5 sources) Patient awaiting renal transplant; 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: [Kidney transplant candidate] Onset: 09-24-2016 Resolved: 09-25-2016 09-25-2016 Chronic Residual codes; unclassified (20 sources) Awaiting transplantation of kidney; 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: [Awaiting organ transplant status] Onset: 09-24-2016 Resolved: 09-25-2016 09-25-2016 Chronic Residual codes; unclassified (20 sources) History of repair of umbilical hernia; 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: [Encounter for follow-up examination after completed treatment for conditions other than malignant neoplasm] Onset: 05-10-2017 Resolved: 05-21-2017 05-10-2017 Episodic Unclassified (1 source) Osteoarthritis of right knee, unspecified osteoarthritis type Unclassified (1 source) MRI Results; 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: [MRI Results] Onset: 06-18-2018 Unclassified (5 sources) Onset: 03-10-2023 Resolved: 04-16-2023 03-10-2023 Results Test Name Value Interpretation Reference Range Facility PTH INTACTOrdered By: Kaia Ni on 10-01-2023 Interpretation and review of laboratory results Abnormal [facility] Parathyrin.intact [Mass/Vol] 76.2 pg/mL High 14.0 - 72.0 pg/mL [facility] CBC,PLATELETSon 09-30-2023 Hematocrit (Bld) [Volume fraction] 37.8 % Low 39.6-48.8 [facility] Comment on above: Order Comment: Pleas e CC to PCP (Mariana Miranda) at fax: [phone] Performed By: #### H [facility] #### [facility] (DEFAULT) [address] [place] [address] Hemoglobin (Bld) [Mass/Vol] 12.2 g/dL Low 13.4-16.8 [facility] Comment on above: Order Comment: Pleas e CC to PCP (Mariana Miranda) at fax: [phone] Performed By: #### H [facility] #### [facility] (DEFAULT) [address] [place] [address] MCV (RBC) [Entitic vol] 88.9 fL Normal 79.0-94.5 [facility] Comment on above: Order Comment: Pleas e CC to PCP (Mariana A Trubachik) at fax: [phone] Performed By: #### H EMOGC #### [facility] (DEFAULT) [address] [address] Mean Cell Hgb 28.7 pg Normal 26.1-33.3 [facility] Comment on above: Order Comment: Pleas e CC to PCP (Mariana A Trubachik) at fax: [phone] Performed By: #### H EMOGC #### [facility] (DEFAULT) [address] [address] Mean Cell Hgb Conc 32.3 g/dL Normal 31.9-36.5 [facility] Comment on above: Order Comment: Pleas e CC to PCP (Mariana A Trubachik) at fax: [phone] Performed By: #### H EMOGC #### [facility] (DEFAULT) [address] [place] [address] Platelet mean volume (Bld) [Entitic vol] 11.2 fL Normal 8.7-12.3 [facility] Comment on above: Order Comment: Pleas e CC to PCP (Mariana A Trubachik) at fax: [phone] Performed By: #### H EMOGC #### [facility] (DEFAULT) [address] [address] Platelets (Bld) [#/Vol] 191 10*3/uL Normal 146-337 [facility] Comment on above: Order Comment: Pleas e CC to PCP (Mariana A Trubachik) at fax: [phone] Performed By: #### H EMOGC #### [facility] (DEFAULT) [address] [address] RBC (Bld) [#/Vol] 4.25 10*6/uL Low 4.38-5.83 [facility] Comment on above: Order Comment: Pleas e CC to PCP (Mariana Miranda) at fax: [phone] Performed By: #### H [facility] #### [facility] (DEFAULT) [address] [place] [address] RBC Distribution 12.7 % Normal 10.9-14.3 [facility] Comment on above: Order Comment: Pleas e CC to PCP (Mariana Miranda) at fax: [phone] Performed By: #### H [facility] #### [facility] (DEFAULT) [address] [place] [address] WBC (Bld) [#/Vol] 8.38 10*3/uL Normal 3.73-10.10 [facility] Comment on above: Order Comment: Pleas e CC to PCP (Mariana Miranda) at fax: [phone] Performed By: #### H [facility] #### [facility] (DEFAULT) [address] [place] [address] Erythrocyte distribution width (RBC) [Ratio] 12.7 % 10.9 - 14.3 % [facility] Hematocrit (Bld) [Volume fraction] 37.8 % Low 39.6 - 48.8 % [facility] Hemoglobin (Bld) [Mass/Vol] 12.2 g/dL Low 13.4 - 16.8 g/dL [facility] Interpretation and review of laboratory results Abnormal [facility] MCH (RBC) [Entitic mass] 28.7 pg 26.1 - 33.3 pg [facility] MCHC (RBC) [Mass/Vol] 32.3 g/dL 31.9 - 36.5 g/dL [facility] MCV (RBC) [Entitic vol] 88.9 fL 79.0 - 94.5 fL [facility] Platelet mean volume (Bld) [Entitic vol] 11.2 fL 8.7 - 12.3 fL [facility] Platelets (Bld) [#/Vol] 191 10*3/uL 146 - 337 K/uL [facility] RBC (Bld) [#/Vol] 4.25 10*6/uL Low [facility] WBC (Bld) [#/Vol] 8.38 10*3/uL 3.73 - 10. 10 K/uL [facility] COMPREHENSIVE METABOLIC PANE Abel 09-30-2023 Albumin [Mass/Vol] 4.4 g/dL Normal 3.5-5.0 [facility] Comment on above: Order Comment: Pleas e CC to PCP (Mariana A Trubachik) at fax: [phone] Performed By: #### I RBC, CMPN #### [facility] (DEFAULT) [address] [place] [address] ALP [Catalytic activity/Vol] 60 U/L Normal 32-126 [facility] Comment on above: Order Comment: Pleas e CC to PCP (Mariana A Trubachik) at fax: [phone] Performed By: #### I RBC, CMPN #### [facility] (DEFAULT) [address] [place] [address] ALT [Catalytic activity/Vol] 11 U/L Normal 10-52 [facility] Comment on above: Order Comment: Pleas e CC to PCP (Mariana A Trubachik) at fax: [phone] Performed By: #### I RBC, CMPN #### [facility] (DEFAULT) [address] [place] [address] Anion gap [Moles/Vol] 16 mmol/L Normal 7-17 [facility] Comment on above: Order Comment: Pleas e CC to PCP (Mariana A Trubachik) at fax: [phone] Performed By: #### I RBC, CMPN #### [facility] (DEFAULT) [address] [place] [address] AST [Catalytic activity/Vol] 12 U/L Normal 10-39 [facility] Comment on above: Order Comment: Pleas e CC to PCP (Mariana A Trubachik) at fax: [phone] Performed By: #### I RBC, CMPN #### [facility] (DEFAULT) [address] [place] [address] Bilirubin [Mass/Vol] 0.3 mg/dL Normal <1.5 [facility] Comment on above: Order Comment: Pleas e CC to PCP (Mariana A Trubachik) at fax: [phone] Performed By: #### I RBC, CMPN #### [facility] (DEFAULT) [address] [place] [address] Calcium [Mass/Vol] 9.7 mg/dL Normal 8.6-10.5 [facility] Comment on above: Order Comment: Pleas e CC to PCP (Mariana A Trubachik) at fax: [phone] Performed By: #### I RBC, CMPN #### [facility] (DEFAULT) [address] [place] [address] Chloride [Moles/Vol] 105 mmol/L Normal 98-108 [facility] Comment on above: Order Comment: Pleas e CC to PCP (Mariaan A Trubachik) at fax: [phone] Performed By: #### I RBC, CMPN #### [facility] (DEFAULT) [address] [place] [address] CO2 [Moles/Vol] 25 mmol/L Normal 21-31 [facility] Comment on above: Order Comment: Pleas e CC to PCP (Mariana A Trubachik) at fax: [phone] Performed By: #### I RBC, CMPN #### [facility] (DEFAULT) [address] [place] [address] Creatinine [Mass/Vol] 1.72 mg/dL High 0.70-1.30 [facility] Comment on above: Order Comment: Pleas e CC to PCP (Mariana A Trubachik) at fax: [phone] Performed By: #### I RBC, CMPN #### [facility] (DEFAULT) [address] [place] [address] GFR/1.73 sq M.predicted among non-blacks MDRD (S/P/Bld) [Vol rate/Area] 46 mL/min/{1.73_m2} Low >=60 [facility] Comment on above: Order Comment: Pleas e CC to PCP (Mariana A Trubachik) at fax: [phone] Result Comment: Repo rted eGFR is based on the CKD-EPI 2020 equation using creatinine, age, and sex. Performed By: #### I RBC, CMPN #### [facility] (DEFAULT) [address] [place] [address] Glucose [Mass/Vol] 78 mg/dL Normal 70-99 [facility] Comment on above: Order Comment: Pleas e CC to PCP (Mariana A Trubachik) at fax: [phone] Performed By: #### I RBC, CMPN #### [facility] (DEFAULT) [address] [place] [address] Osmolality [Osmolality] 302 mosm/kg Normal 278-305 [facility] Comment on above: Order Comment: Pleas e CC to PCP (Mariana A Trubachik) at fax: [phone] Performed By: #### I RBC, CMPN #### [facility] (DEFAULT) [address] [place] [address] Potassium [Moles/Vol] 5.0 mmol/L Normal 3.5-5.0 [facility] Comment on above: Order Comment: Pleas e CC to PCP (Mariana A Trubachik) at fax: [phone] Performed By: #### I RBC, CMPN #### [facility] (DEFAULT) [address] [place] [address] Protein [Mass/Vol] 6.9 g/dL Normal 6.4-8.3 [facility] Comment on above: Order Comment: Pleas e CC to PCP (Mariana A Trubachik) at fax: [phone] Performed By: #### I RBC, CMPN #### [facility] (DEFAULT) [address] [place] [address] Sodium [Moles/Vol] 141 mmol/L Normal 135-145 [facility] Comment on above: Order Comment: Pleas e CC to PCP (Mariana A Trubachik) at fax: [phone] Performed By: #### I RBC, CMPN #### [facility] (DEFAULT) [address] [place] [address] Urea nitrogen [Mass/Vol] 31 mg/dL High 7-25 [facility] Comment on above: Order Comment: Pleas e CC to PCP (Mariana A Trubachik) at fax: [phone] Performed By: #### I RBC, CMPN #### [facility] (DEFAULT) [address] [place] [address] Urea nitrogen/Creatinine [Mass ratio] 18 mg/mg Normal [facility] Comment on above: Order Comment: Pleas e CC to PCP (Mariana A Trubachik) at fax: [phone] Performed By: #### I RBC, CMPN #### [facility] (DEFAULT) [address] [place] [address] Albumin [Mass/Vol] 4.4 g/dL 3.5 - 5.0 g/dL [facility] ALP [Catalytic activity/Vol] 60 U/L 32 - 126 U/L [facility] ALT [Catalytic activity/Vol] 11 U/L 10 - 52 U/L [facility] Anion gap [Moles/Vol] 16 mmol/L 7 - 17 mmol/L [facility] AST [Catalytic activity/Vol] 12 U/L 10 - 39 U/L [facility] Bilirubin [Mass/Vol] 0.3 mg/dL NINF - [facility] Calcium [Mass/Vol] 9.7 mg/dL 8.6 - 10. 5 mg/dL [facility] Chloride [Moles/Vol] 105 mmol/L 98 - 10 8 mmol/L [facility] CO2 [Moles/Vol] 25 mmol/L 21 - 31 mmol/L [facility] Creatinine [Mass/Vol] 1.72 mg/dL High 0.70 - 1.30 mg/dL [facility] eGFR, CKD-EPI, Male 46 Low - PINF [facility] Comment on above: Reported eGFR is bas ed on the CKD-EPI 2020 equation using creatinine, age, and sex. Glucose [Mass/Vol] 78 mg/dL 70 - 99 mg/dL [facility] Interpretation and review of laboratory results Abnormal [facility] Osmolality Calc [Osmolality] 302 [facility] Potassium [Moles/Vol] 5.0 mmol/L 3.5 - 5.0 mmol/L [facility] Protein [Mass/Vol] 6.9 g/dL 6.4 - 8.3 g/dL [facility] Sodium [Moles/Vol] 141 mmol/L 135 - 145 mmol/L [facility] Urea nitrogen [Mass/Vol] 31 mg/dL High 7 - 25 mg/dL [facility] Urea nitrogen/Creatinine [Mass ratio] 18 mg/mg [facility] FERRITINon 09-30-2023 Ferritin [Mass/Vol] 381.3 ng/mL High 10.5-307.3 [facility] Comment on above: Order Comment: Pleas e CC to PCP (Mariana Miranda) at fax: [phone] Performed By: #### F OLSB, FERIB, B12B #### [facility] (DEFAULT) [address] [place] [place] [address] Ferritin [Mass/Vol] 381.3 ng/mL High 10.5 - 3 07.3 ng/mL [facility] Interpretation and review of laboratory results Abnormal [facility] FOLATE, SERUMOrdered By: Guerrero Wick on 09-30-2023 Folate [Mass/Vol] 44.78 ng/mL 5.38 - PIN F ng/mL [facility] Interpretation and review of laboratory results Normal [facility] FOLATE, SERUMon 09-30-2023 Folate 44.78 ng/mL Normal >5.38 [facility] Comment on above: Order Comment: Pleas e CC to PCP (Mariana A Trubachik) at fax: [phone] Performed By: #### F OLSB, FERIB, B12B #### [facility] (DEFAULT) [address] [place] [address] IRON/IRON BINDING/TRANSFERRI Non 09-30-2023 Iron [Mass/Vol] 91 ug/dL Normal 40-174 [facility] Comment on above: Order Comment: Pleas e CC to PCP (Mariana A Trubachik) at fax: [phone] Performed By: #### I RBC, CMPN #### [facility] (DEFAULT) [address] [place] [address] Iron Saturation 31 % Normal 20-55 [facility] Comment on above: Order Comment: Pleas e CC to PCP (Mariana A Trubachik) at fax: [phone] Performed By: #### I RBC, CMPN #### [facility] (DEFAULT) [address] [place] [address] Total Iron Binding Capacity 295 mcg/dL Normal 250-425 [facility] Comment on above: Order Comment: Pleas e CC to PCP (Mariana A Trubachik) at fax: [phone] Performed By: #### I RBC, CMPN #### [facility] (DEFAULT) [address] [place] [address] Transferrin [Mass/Vol] 236 mg/dL Normal 200-400 [facility] Comment on above: Order Comment: Pleas e CC to PCP (Mariana A Trubachik) at fax: [phone] Performed By: #### I RBC, CMPN #### [facility] (DEFAULT) [address] [place] [address] Interpretation and review of laboratory results Normal [facility] Iron [Mass/Vol] 91 ug/dL [facility] Iron binding capacity [Mass/Vol] 295 [facility] Iron saturation [Mass fraction] 31 % 20 - 55 % [facility] Transferrin [Mass/Vol] 236 mg/dL 200 - 400 mg/dL [facility] NICOTINE AND METABOLITES,SER UMon 09-30-2023 COTININE <3.0 Normal <3.0 [facility] Comment on above: Result Comment: ADDITIONAL INFORMATION This test was developed and its performance characteristics determined by [facility] in a manner consistent with CLIA requirements. This test has not been cleared or approved by the U.S. Food and Drug Administration. Test Performed by: [place] [address] Industrial Cook: Tashi Zhou M.D. Ph.D.; CLIA# [id number] Performed By: #### Y COT #### [facility] (DEFAULT) [address] [address] NICOTINE <3.0 Normal <3.0 [facility] Comment on above: Performed By: #### Y COT #### [facility] (DEFAULT) [address] [address] No Panel Informationon 09-29 [facility] PTH INTACTon 09-30-2023 Intact PTH 76.2 pg/mL High 14.0-72.0 [facility] Comment on above: Order Comment: Pleas e CC to PCP (Mariana Miranda) at fax: [phone] Performed By: #### I PTH #### [facility] (DEFAULT) [address] [address] VITAMIN Aon 09-30-2023 FREE RETINOL (VIT A) 106.0 mcg/dL High 32.5-78.0 [facility] Comment on above: Order Comment: Joslyn ward CC to PCP (Mariana Miranda) at fax: [phone] Result Comment: ADDITIONAL INFORMATION This test was developed and its performance characteristics determined by [facility] in a manner consistent with CLIA requirements. This test has not been cleared or approved by the U.S. Food and Drug Administration. Test Performed by: [facility] [place] [address] Industrial Cook: Tashi Zhou M.D. Ph.D.; CLIA# [id number] Performed By: #### I PTH #### [facility] (DEFAULT) [address] [place] [address] VITAMIN B1on 09-30-2023 THIAMIN, RBC 159 nmol/L Normal 70-180 [facility] Comment on above: Order Comment: Joslyn ward CC to PCP (Mariana Miranda) at fax: [phone] Result Comment: ADDITIONAL INFORMATION This test was developed and its performance characteristics determined by [facility] in a manner consistent with CLIA requirements. This test has not been cleared or approved by the U.S. Food and Drug Administration. Test Performed by: [facility] [employer] [facility] [place] [address] Industrial Cook: Tashi Zhou M.D. Ph.D.; CLIA# [id number] Performed By: #### Y VITB1 #### [facility] (DEFAULT) [address] [place] [address] VITAMIN B12on 09-30-2023 Cobalamin (Vitamin B12) [Mass/Vol] 513 pg/mL Normal 211-911 [facility] Comment on above: Order Comment: Joslyn ward CC to PCP (Mariana Tone Miranda) at fax: [phone] Result Comment: Test ing of Methylmalonic Acid and Intrinsic Factor Blocking Antibody are recommended if clinical suspicion for pernicious anemia due to B12 deficiency is high for patients with intermediate B12 levels (211 to 400 pg/mL) to rule out spurious heterophile antibodies. Performed By: #### F OLSNELSON Richardson, B12B #### [facility] (DEFAULT) [address] [place] [address] Cobalamin (Vitamin B12) [Mass/Vol] 513 pg/mL 211 - 911 pg/mL [facility] Comment on above: Testing of Methylmal onic Acid and Intrinsic Factor Blocking Antibody are recommended if clinical suspicion for pernicious anemia due to B12 deficiency is high for patients with intermediate B12 levels (211 to 400 pg/mL) to rule out spurious heterophile antibodies. Interpretation and review of laboratory results Normal [facility] VITAMIN D (25-HYDROXY,TOTAL) on 09-30-2023 Interpretation and review of laboratory results Normal [facility] Vitamin D+Metabolites [Mass/Vol] 41.0 ng/mL 30.0 - 100.0 ng/mL [facility] Comment on above: <10 Deficiency 10-29 Insufficiency 30-100 Optimal Level >100 Possible Toxicity Vitamin D values hav e been shown to be falsely decreased in lipemic samples and should be interpreted with caution. [facility] 25-OH Vitamin D Total 41.0 ng/mL Normal 30.0-100.0 [facility] Comment on above: Order Comment: Joslyn HODGSON to PCP (Mariana Miranda) at fax: [phone] Vitamin D values have been shown to be falsely decreased in lipemic samples and should be interpreted with caution. Result Comment: <10 Deficiency 10-29 Insufficiency 30-100 Optimal Level >100 Possible Toxicity Performed By: #### D 25OH #### [facility] (DEFAULT) [address] [place] [address] INTERVENTIONAL UPPER ENDOSCO PYon 2023 [facility] Gastro[facility] Patient Name: Zoie Heath Procedure Date: 2023 9:29 AM Date of : 1965 Admit Type: Outpatient Age: 58 Room: [place] [address] Gender: Male Note Status: Finalized Attending MD: Schuyler Sparks MD, [id number] Procedure: Upper GI endoscopy Indications: Surveillance procedure, Epigastric abdominal pain, Heartburn, Postoperative assessment Providers: Schuyler Sparks MD (Doctor), Carl Mari MD (Doctor), Alex Rascon, TABATHA (Nurse), Ella Gordon RN (Nurse), Cosmo Waters MD (Anesthesia Staff), JADEN Painting (Anesthesia Staff) Referring MD: Caty Penn APRN-TAMY (Referring MD) Medicines: Monitored Anesthesia Care Complications: No immediate complications. Procedure: Pre-Anesthesia Assessment: - Prior to the procedure, a History and Physical was performed, and patient medications, allergies and sensitivities were reviewed. The patient's tolerance of previous anesthesia was reviewed. - The risks and benefits of the procedure and the sedation options and risks were discussed with the patient. All questions were answered and informed consent was obtained. - Patient identification and proposed procedure were verified prior to the procedure by the physician. The procedure was verified in the endoscopy suite at 09:41 AM. - Airway Examination: Mallampati Class II (the uvula but not tonsillar pillars visualized). - ASA Grade Assessment: III - A patient with severe systemic disease. After obtaining informed consent, the endoscope was passed under direct vision. Throughout the procedure, the patient's blood pressure, pulse, and oxygen saturations were monitored continuously. The Endoscope was introduced through the mouth, and advanced to the second part of duodenum. The upper GI endoscopy was accomplished without difficulty. The patient tolerated the procedure well. Findings: No gross lesions were noted in the entire esophagus. The BERGERON capsule with delivery system was introduced through the mouth and advanced into the esophagus, such that the BERGERON pH capsule was positioned 36 cm from the incisors, which was 6 cm proximal to the GE junction. The BERGERON pH capsule was then deployed and attached to the esophageal mucosa. The delivery system was then withdrawn. Endoscopy was utilized for probe placement and diagnostic evaluation. 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 This was characterized by healthy appearing mucosa. The examined duodenum was normal. Impression: - No gross lesions in the entire esophagus. 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 - Normal second portion of the duodenum. - The BERGERON pH capsule was deployed. - No specimens collected. Recommendation: - Discharge patient to home (ambulatory). - Resume previous diet. - Continue present medications. - Patient has a contact number available for emergencies. The signs and symptoms of potential delayed complications were discussed with the patient. Return to normal activities tomorrow. Written discharge instructions were provided to the patient. Procedure Code(s): --- Professional --- 26300, Esophagogastroduodeno scopy, flexible, transoral; diagnostic, including collection of specimen(s) by brushing or washing, when performed (separate procedure) Diagnosis Code(s): --- Professional --- Z98.84, Bariatric surgery status R10.13, Epigastric pain R12, Heartburn Z09, Encounter for follow-up examination after completed treatment for conditions other than (more content not included)... LAB, [facility] Radiology Study observation (narrative) [facility] SURG PATH REQUESTon 05-28-20 Case Report [facility] Comment on above: Result Comment: Surg ical Pathology Report Case: [id number] Authorizing Provider: Aliza Davis MD Collected: 05/28/2023 02:42 PM Ordering Location: Dermatology Outpatient Received: 05/28/2023 02:44 PM [facility] Pathologist: Carlos Eduardo Sharif MD Specimen: Skin Bx Not cyst/tag/debridement/ plastic Performed By: #### I PTH #### [facility] (DEFAULT) [address] [place] [address] Clinical History Associated Diagnosis : Neoplasm of uncertain behavior of skin [D48.5]. Clinical History: R/o irritated nevus vs r/o atypia. Normal [facility] Comment on above: Performed By: #### I PTH #### [facility] (DEFAULT) [address] [place] [address] Gross Description Normal [facility] Comment on above: Result Comment: The specimen is received in one properly labeled container with the patient's name and accession number. A. The specimen is designated L upper arm and consists of an irregular shave of skin that measures 0.5 x 0.3 x 0.1 cm. The surface is raised, saldana to light brown, crusted and roughened. The surgical margin is inked blue and the specimen is submitted whole. TE 1 Lab Use Only: JobID [id number] Grosser for this case was: Génesis Glover Performed By: #### I PTH #### [facility] (DEFAULT) [address] [place] [id number] Microscopic Description A. Histologic sections show nevus cells that are confined to the dermis, that are arranged in nests and cords. The intradermal melanocytes mature adequately showing diminished nest size with depth. [facility] Comment on above: Performed By: #### I PTH #### [facility] (DEFAULT) [address] [place] [address] Pathologic Diagnosis [facility] Comment on above: Result Comment: A. S kin, left upper arm, shave: Melanocytic nevus, intradermal type. Performed By: #### I PTH #### [facility] (DEFAULT) [address] [address] Professional Interpretation Performed at: [facility] Comment on above: Result Comment: [facility] For Immediate Release to Patient's [facility]? Yes [address] [place] [address] Performed By: #### I PTH #### [facility] (DEFAULT) [address] [place] [id number] No Panel Informationon 03-11 IMPRESSION: Radiographically negative right foot and right ankle. RADIOLOGY EXAM: XR FOOT RIGHT 3 VIEWS, XR ANKLE RIGHT 3+ VIEWS HISTORY: The patient is a 57-year-old male with pain COMPARISON: None. FINDINGS: The right foot is radiographically negative with no evidence of fracture, dislocation, joint space narrowing, osteophytes, or other osseous or articular abnormalities. No acute or ununited fractures are seen within or around the ankle joint. The ankle mortise is intact and uniform. The syndesmosis is maintained. No soft tissue swelling is seen. RADIOLOGY Felix Adame M D - 03/11/2023 EXAM: XR FOOT RIGHT 3 VIEWS, XR ANKLE RIGHT 3+ VIEWS HISTORY: The patient is a 57-year-old male with pain COMPARISON: None. FINDINGS: The right foot is radiographically negative with no evidence of fracture, dislocation, joint space narrowing, osteophytes, or other osseous or articular abnormalities. No acute or ununited fractures are seen within or around the ankle joint. The ankle mortise is intact and uniform. The syndesmosis is maintained. No soft tissue swelling is seen. IMPRESSION IMPRESSION: Radiographically negative right foot and right ankle. [facility] No Panel InformationOrdered By: Felix Adame on 03-11-2023 [facility] Work Phone: XR ANKLE RIGHT 3+ VIEWSon XR ANKLE RIGHT 3+ VIEWS EXAM: XR FOOT RIGHT 3 VIEWS, XR ANKLE RIGHT 3+ VIEWS HISTORY: The patient is a 57-year-old male with pain COMPARISON: None. FINDINGS: The right foot is radiographically negative with no evidence of fracture, dislocation, joint space narrowing, osteophytes, or other osseous or articular abnormalities. No acute or ununited fractures are seen within or around the ankle joint. The ankle mortise is intact and uniform. The syndesmosis is maintained. No soft tissue swelling is seen. IMPRESSION: Radiographically negative right foot and right ankle. Normal [facility] XR FOOT RIGHT 3 VIEWSon 03-01 XR FOOT RIGHT 3 VIEWS EXAM: XR FOOT RIGH T 3 VIEWS, XR ANKLE RIGHT 3+ VIEWS HISTORY: The patient is a 57-year-old male with pain COMPARISON: None. FINDINGS: The right foot is radiographically negative with no evidence of fracture, dislocation, joint space narrowing, osteophytes, or other osseous or articular abnormalities. No acute or ununited fractures are seen within or around the ankle joint. The ankle mortise is intact and uniform. The syndesmosis is maintained. No soft tissue swelling is seen. IMPRESSION: Radiographically negative right foot and right ankle. Normal [facility] XR Ankle - right 3 Viewson 0 03-10-2023 Radiology Study observation (narrative) [facility] XR Foot - right 3 Viewson Radiology Study observation (narrative) [facility] VIT.B1 THIAMINE-BLDon 2022 VIT.B1 THIAMINE-BLD 181.7 Normal [facility] Comment on above: Result Comment: Refe rence range: 66.5 to 200.0 Unit: nmol/L (NOTE) This test was developed and its performance characteristics determined by [facility]. It has not been cleared or approved by the Food and Drug Administration. PERFORMED AT [facility] Performed By: #### I PTH #### Testing performed at [address] [address] VITAMIN Aon 01-18-2023 VITAMIN A 101.1 High [facility] Comment on above: Result Comment: Refe rence range: 20.1 to 62.0 Unit: ug/dL (NOTE) Reference intervals for vitamin A determined from [facility] internal studies. Individuals with vitamin A less than 20 ug/dL are considered vitamin A deficient and those with serum concentrations less than 10 ug/dL are considered severely deficient. This test was developed and its performance characteristics determined by [facility]. It has not been cleared or approved by the Food and Drug Administration. PERFORMED AT [facility] Performed By: #### I PTH #### Testing performed at [address] [address] 25 0H VITAMIN D LEVELon 12-29 25 0H VITAMIN D LEVEL 65.9 NG/ML Normal [facility] Comment on above: Result Comment: DEFICIENT <20 NG/ML INSUFFICIENT 20-<30 NG/ML SUFFICIENT 30-100 NG/ML POTENTIAL TOXICITY >100 NG/ML ALBUMINon 01-15-2023 ALBUMIN 4.8 G/dl Normal 3.5-5.0 [facility] Comment on above: Performed By: #### I PTH #### Testing performed at [address] [address] CALCIUMon 01-15-2023 Calcium [Mass/Vol] 9.9 mg/dL Normal 8.4-10.2 [facility] Comment on above: Performed By: #### I PTH #### Testing performed at [address] [address] FAX REQUESTon 01-15-2023 FAX TO ,[phone] Normal [facility] Comment on above: Performed By: #### I PTH #### Testing performed at [address] [address] FAX TO ,[phone] Normal [facility] FAX TO ,[phone] Normal [facility] Comment on above: Performed By: #### I PTH #### Testing performed at [address] [address] FOLATEon 01-15-2023 FOLATE 14.4 NG/ML Normal 2.56-20.0 [facility] Comment on above: Performed By: #### I PTH #### Testing performed at [address] [address] VITAMIN B12on 01-15-2023 Cobalamin (Vitamin B12) [Mass/Vol] 630 pg/mL Normal 239-931 [facility] Comment on above: Performed By: #### I PTH #### Testing performed at [address] [address] TACROLIMUSon 10-18-2022 Tacrolimus (Bld) [Mass/Vol] 6.6 ng/mL Normal [facility] Comment on above: Result Comment: Refe rence range: 2.0 to 20.0 Unit: ng/mL (NOTE) This test was developed and its performance characteristics determined by [facility]. It has not been cleared or approved by the Food and Drug Administration. Trough (immediately following transplant) 15.0 Trough (steady state, 2 weeks or more after transplant): 3.0 - 8.0 Performed by LC-MS/MS technology. PERFORMED AT [facility] Performed By: #### I PTH #### Testing performed at [address] [address] CBCon 10-16-2022 ABSOLUTE BAS 0.0 10*3/uL Normal 0.0-0.2 [facility] Comment on above: Performed By: #### I PTH #### Testing performed at [address] [place] [address] ABSOLUTE EOS 0.1 10*3/uL Normal 0.0-0.7 [facility] Comment on above: Performed By: #### I PTH #### Testing performed at [address] [place] [address] ABSOLUTE NEUTROPHIL COUNT 5.2 10*3/uL Normal 1.4-6.5 [facility] Comment on above: Performed By: #### I PTH #### Testing performed at [address] [place] [address] Basophils/100 WBC (Bld) 0.4 % Normal 0.0-2.0 [facility] Comment on above: Performed By: #### I PTH #### Testing performed at [address] [place] [address] DTYPE AUTO DIFF Normal [facility] Comment on above: Performed By: #### I PTH #### Testing performed at [address] [place] [address] Eosinophils/100 WBC (Bld) 1.1 % Normal 0.0-11.0 [facility] Comment on above: Performed By: #### I PTH #### Testing performed at [address] [place] [address] Lymphocytes (Bld) [#/Vol] 1.8 10*3/uL Normal 1.2-3.4 [facility] Comment on above: Performed By: #### I PTH #### Testing performed at [address] [place] [address] Lymphocytes/100 WBC (Bld) 24.3 % Normal 20.0-55.0 [facility] Comment on above: Performed By: #### I PTH #### Testing performed at [address] [place] [address] Monocytes (Bld) [#/Vol] 0.4 10*3/uL Normal 0.0-0.7 [facility] Comment on above: Performed By: #### I PTH #### Testing performed at [address] [place] [address] Monocytes/100 WBC (Bld) 4.8 % Normal 0.0-10.0 [facility] Comment on above: Performed By: #### I PTH #### Testing performed at [address] [address] Neutrophils/100 WBC (Bld) 69.4 % Normal 37.0-75.0 [facility] Comment on above: Performed By: #### I PTH #### Testing performed at [address] [address] Erythrocyte distribution width (RBC) [Ratio] 13.3 % Normal 11.5-14.5 [facility] Comment on above: Performed By: #### I PTH #### Testing performed at [address] [address] Hematocrit (Bld) [Volume fraction] 37.5 % Low 42.0-52.0 [facility] Comment on above: Performed By: #### I PTH #### Testing performed at [address] [address] Hemoglobin (Bld) [Mass/Vol] 12.5 g/dL Low 14.0-18.0 [facility] Comment on above: Performed By: #### I PTH #### Testing performed at [address] [address] MCH (RBC) [Entitic mass] 30.0 pg Normal 26.0-35.0 [facility] Comment on above: Performed By: #### I PTH #### Testing performed at [address] [address] MCHC (RBC) [Mass/Vol] 33.3 g/dL Normal 27.0-37.0 [facility] Comment on above: Performed By: #### I PTH #### Testing performed at [address] [address] MCV (RBC) [Entitic vol] 90.1 fL Normal 80.0-100.0 [facility] Comment on above: Performed By: #### I PTH #### Testing performed at [address] [address] Platelet mean volume (Bld) [Entitic vol] 9.0 fL Normal 7.4-11.0 [facility] Comment on above: Performed By: #### I PTH #### Testing performed at [address] [place] [address] Platelets (Bld) [#/Vol] 168 10*3/uL Normal 130-400 [facility] Comment on above: Performed By: #### I PTH #### Testing performed at [address] [place] [address] RBC (Bld) [#/Vol] 4.17 10*6/uL Normal 4.0-6.1 [facility] Comment on above: Performed By: #### I PTH #### Testing performed at [address] [address] WBC (Bld) [#/Vol] 7.5 10*3/uL Normal 3.6-11.0 [facility] Comment on above: Performed By: #### I PTH #### Testing performed at [address] [place] [address] CMP FASTINGon 10-16-2022 A:G RATIO 1.4 RATIO Normal 1.3-2.2 [facility] Comment on above: Performed By: #### I PTH #### Testing performed at [address] [place] [address] ALBUMIN 4.5 G/dl Normal 3.5-5.0 [facility] Comment on above: Performed By: #### I PTH #### Testing performed at [address] [place] [address] ALP [Catalytic activity/Vol] 96 U/L Normal 38-126 [facility] Comment on above: Performed By: #### I PTH #### Testing performed at [address] [place] [address] ALT [Catalytic activity/Vol] 18 U/L Normal <50 [facility] Comment on above: Performed By: #### I PTH #### Testing performed at [address] [place] [address] AST [Catalytic activity/Vol] 21 U/L Normal 17-59 [facility] Comment on above: Performed By: #### I PTH #### Testing performed at [address] [address] Bilirubin [Mass/Vol] 0.3 mg/dL Normal 0.2-1.3 [facility] Comment on above: Performed By: #### I PTH #### Testing performed at [address] [address] Calcium [Mass/Vol] 9.3 mg/dL Normal 8.4-10.2 [facility] Comment on above: Performed By: #### I PTH #### Testing performed at [address] [address] Chloride [Moles/Vol] 103 mmol/L Normal 98-107 [facility] Comment on above: Result Comment: Leela pringle note: Triglyceride levels of 600mg/dL or higher may positively bias chloride results by approximately 2.1 mmol Performed By: #### I PTH #### Testing performed at [address] [address] CO2 [Moles/Vol] 25 mmol/L Normal 22-30 [facility] Comment on above: Performed By: #### I PTH #### Testing performed at [address] [address] Creatinine [Mass/Vol] 1.63 mg/dL High 0.7-1.2 [facility] Comment on above: Performed By: #### I PTH #### Testing performed at [address] [address] EST. GFR, 57 ml/min/1.73sq.m [facility] Comment on above: Performed By: #### I PTH #### Testing performed at [address] [place] [address] EST. GFR,Non 47 ml/min/1.73sq.m [facility] Comment on above: Performed By: #### I PTH #### Testing performed at [address] [place] [address] GFR Information Average GFR for 50-5 9 years old = 93. Normal [facility] Comment on above: Result Comment: [employer]isan miguel Kidney disease, GFR = <60. Kidney failure, GFR = <15. The GFR estimate is not adjusted for extreme body surface area or acute process, nor has it been validated for women or ethnic groups other than and . Performed By: #### I PTH #### Testing performed at [address] [address] Glucose [Mass/Vol] 95 mg/dL Normal 70-100 [facility] Comment on above: Result Comment: NORMAL <100 mg/dL PREDIABETES 101-126 mg/dL DIABETES 126 mg/dL or higher Performed By: #### I PTH #### Testing performed at [address] [address] Potassium [Moles/Vol] 5.1 mmol/L Normal 3.5-5.1 [facility] Comment on above: Performed By: #### I PTH #### Testing performed at [address] [address] Protein [Mass/Vol] 7.7 g/dL Normal 6.3-8.2 [facility] Comment on above: Performed By: #### I PTH #### Testing performed at [address] [address] Sodium [Moles/Vol] 137 mmol/L Normal 137-145 [facility] Comment on above: Performed By: #### I PTH #### Testing performed at [address] [address] Urea nitrogen [Mass/Vol] 32 mg/dL High 7-20 [facility] Comment on above: Performed By: #### I PTH #### Testing performed at [address] [place] [address] FAX REQUESTon 10-16-2022 FAX TO [phone] [facility] Comment on above: Performed By: #### I PTH #### Testing performed at [address] [place] [address] FAX TO [phone] [facility] FAX TO [phone] [facility] Comment on above: Performed By: #### I PTH #### Testing performed at [address] [place] [address] FAX TO [phone] Normal [facility] Comment on above: Performed By: #### I PTH #### Testing performed at [address] [place] [address] FERRITINon 10-16-2022 Ferritin [Mass/Vol] 367 ng/mL Normal 17.9-464 [facility] Comment on above: Performed By: #### I PTH #### Testing performed at [address] [place] [address] HEMOGLOBIN A1Con 10-16-2022 Glucose [Mass/Vol] 97 mg/dL Normal [facility] HbA1c (Bld) [Mass fraction] 5.0 % Normal 0-6 [facility] Comment on above: Result Comment: NORMAL <5.7% PREDIABETES 5.7-6.4% DIABETES 6.5% OR HIGHER IRON PROFILEon 10-16-2022 IRON BINDING 295 UG/DL Normal 250-450 [facility] Comment on above: Performed By: #### I PTH #### Testing performed at [address] [place] [address] TRANSFERRIN SATURATION,CALCULATED 26 % Normal [facility] Comment on above: Performed By: #### I PTH #### Testing performed at [address] [place] [address] Iron [Mass/Vol] 78 ug/dL Normal 49-181 [facility] Comment on above: Performed By: #### I PTH #### Testing performed at [address] [place] [address] LAST DOSEon 10-16-2022 LAST DOSE 10/15/22 2330 Normal [facility] Comment on above: Performed By: #### I PTH #### Testing performed at [address] [place] [address] LIPID PROFILEon 10-16-2022 Cholesterol [Mass/Vol] 168 mg/dL Normal 120-200 [facility] Comment on above: Performed By: #### I PTH #### Testing performed at [facility] [address] [place] [address] Cholesterol in HDL [Mass/Vol] 42 mg/dL Normal 26-63 [facility] Comment on above: Performed By: #### I PTH #### Testing performed at [address] [address] Cholesterol in LDL [Mass/Vol] 108 mg/dL Normal [facility] Comment on above: Performed By: #### I PTH #### Testing performed at [address] [place] [address] Cholesterol in VLDL [Mass/Vol] 18 mg/dL Normal 5.0-25 [facility] Comment on above: Performed By: #### I PTH #### Testing performed at [address] [address] Cholesterol.total/Chol esterol in HDL [Mass ratio] 4.00 {ratio} Normal [facility] Comment on above: Result Comment: RISK TOTAL/HDL RATIO MEN WOMEN 1/2 AVERAGE 3.43 3.27 AVERAGE 4.97 4.44 2X AVERAGE 9.55 7.05 3X AVERAGE 23.99 11.04 Performed By: #### I PTH #### Testing performed at [address] [place] [address] Triglyceride [Mass/Vol] 91 mg/dL Normal 0-150 [facility] Comment on above: Performed By: #### I PTH #### Testing performed at [address] [place] [address] MAGNESIUMon 10-16-2022 Magnesium [Mass/Vol] 1.8 mg/dL Normal 1.6-2.3 [facility] Comment on above: Performed By: #### I PTH #### Testing performed at [address] [place] [address] PHOSPHOROUSon 10-16-2022 PHOSPHOROUS 3.1 MG/DL Normal 2.5-4.5 [facility] Comment on above: Performed By: #### I PTH #### Testing performed at [address] [place] [address] PROTEIN CREATININE RATIOon 0 10-16-2022 PROTEIN CREATININE RATIO 0.4 Normal [facility] Comment on above: Result Comment: REFERENCE RANGES <0.2 NORMAL 0.2-3.5 NON-NEPHROTIC >3.5 NEPHROTIC URINE CREATININE RANDOM 23.5 MG/DL Normal [facility] Comment on above: Result Comment: NO N ORMAL VALUES ESTABLISHED FOR RANDOM SPECIMENS URINE TP RANDOM 10 MG/DL Normal 0-10 [facility] PTH,INTACTon 10-16-2022 PTH,INTACT 70.4 pg/mL Normal 12-88 [facility] Comment on above: Performed By: #### I PTH #### Testing performed at [address] [address] TRANSFERRINon 10-16-2022 Transferrin [Mass/Vol] 211 mg/dL Normal 206-381 [facility] Comment on above: Performed By: #### I PTH #### Testing performed at [address] [address] URIC ACIDon 10-16-2022 Urate [Mass/Vol] 7.6 mg/dL Normal 3.5-8.5 [facility] Comment on above: Performed By: #### I PTH #### Testing performed at [address] [address] TACROLIMUSon 04-08-2022 Tacrolimus (Bld) [Mass/Vol] 5.9 ng/mL Normal [facility] Comment on above: Result Comment: Refe rence range: 2.0 to 20.0 Unit: ng/mL (NOTE) This test was developed and its performance characteristics determined by [facility]. It has not been cleared or approved by the Food and Drug Administration. Trough (immediately following transplant) 15.0 Trough (steady state, 2 weeks or more after transplant): 3.0 - 8.0 Performed by LC-MS/MS technology. PERFORMED AT [facility] Performed By: #### I PTH #### Testing performed at [address] [address] BMP FASTINGon 04-05-2022 Anion gap [Moles/Vol] 8 mmol/L Normal 8-16 [facility] Comment on above: Performed By: #### L TAC #### Testing performed at [facility] Calcium [Mass/Vol] 9.2 mg/dL Normal 8.4-10.2 [facility] Comment on above: Performed By: #### L TAC #### Testing performed at [facility] Chloride [Moles/Vol] 107 mmol/L Normal 98-107 [facility] Comment on above: Result Comment: Leela pringle note: Triglyceride levels of 600mg/dL or higher may positively bias chloride results by approximately 2.1 mmol Performed By: #### L TAC #### Testing performed at [facility] CO2 [Moles/Vol] 23 mmol/L Normal 22-30 [facility] Comment on above: Performed By: #### L TAC #### Testing performed at [facility] Creatinine [Mass/Vol] 1.51 mg/dL High 0.7-1.2 [facility] Comment on above: Performed By: #### L TAC #### Testing performed at [facility] EST. GFR, 62 ml/min/1.73sq.m [facility] Comment on above: Performed By: #### L TAC #### Testing performed at [facility] EST. GFR,Non 51 ml/min/1.73sq.m [facility] Comment on above: Performed By: #### L TAC #### Testing performed at [facility] GFR Information Average GFR for 50-5 9 years old = 93. Normal [facility] Comment on above: Result Comment: [employer] miguel Kidney disease, GFR = <60. Kidney failure, GFR = <15. The GFR estimate is not adjusted for extreme body surface area or acute process, nor has it been validated for women or ethnic groups other than and . Performed By: #### L TAC #### Testing performed at [facility] Glucose [Mass/Vol] 99 mg/dL Normal 70-100 [facility] Comment on above: Result Comment: NORMAL <100 mg/dL PREDIABETES 101-126 mg/dL DIABETES 126 mg/dL or higher Performed By: #### L TAC #### Testing performed at [facility] Potassium [Moles/Vol] 4.9 mmol/L Normal 3.5-5.1 [facility] Comment on above: Performed By: #### L TAC #### Testing performed at [facility] Sodium [Moles/Vol] 138 mmol/L Normal 137-145 [facility] Comment on above: Performed By: #### L TAC #### Testing performed at [facility] Urea nitrogen [Mass/Vol] 29 mg/dL High 7-20 [facility] Comment on above: Performed By: #### L TAC #### Testing performed at [facility] CBCon 04-05-2022 ABSOLUTE BAS 0.0 10*3/uL Normal 0.0-0.2 [facility] Comment on above: Performed By: #### L TAC #### Testing performed at [facility] ABSOLUTE EOS 0.1 10*3/uL Normal 0.0-0.7 [facility] Comment on above: Performed By: #### L TAC #### Testing performed at [facility] ABSOLUTE NEUTROPHIL COUNT 4.7 10*3/uL Normal 1.4-6.5 [facility] Comment on above: Performed By: #### L TAC #### Testing performed at [facility] Basophils/100 WBC (Bld) 0.5 % Normal 0.0-2.0 [facility] Comment on above: Performed By: #### L TAC #### Testing performed at [facility] DTYPE AUTO DIFF Normal [facility] Comment on above: Performed By: #### L TAC #### Testing performed at [facility] Eosinophils/100 WBC (Bld) 1.1 % Normal 0.0-11.0 [facility] Comment on above: Performed By: #### L TAC #### Testing performed at [facility] Lymphocytes (Bld) [#/Vol] 1.7 10*3/uL Normal 1.2-3.4 [facility] Comment on above: Performed By: #### L TAC #### Testing performed at [facility] Lymphocytes/100 WBC (Bld) 24.7 % Normal 20.0-55.0 [facility] Comment on above: Performed By: #### L TAC #### Testing performed at [facility] Monocytes (Bld) [#/Vol] 0.3 10*3/uL Normal 0.0-0.7 [facility] Comment on above: Performed By: #### L TAC #### Testing performed at [facility] Monocytes/100 WBC (Bld) 4.1 % Normal 0.0-10.0 [facility] Comment on above: Performed By: #### L TAC #### Testing performed at [facility] Neutrophils/100 WBC (Bld) 69.6 % Normal 37.0-75.0 [facility] Comment on above: Performed By: #### L TAC #### Testing performed at [facility] Erythrocyte distribution width (RBC) [Ratio] 13.3 % Normal 11.5-14.5 [facility] Comment on above: Performed By: #### L TAC #### Testing performed at [facility] Hematocrit (Bld) [Volume fraction] 36.7 % Low 42.0-52.0 [facility] Comment on above: Performed By: #### L TAC #### Testing performed at [facility] Hemoglobin (Bld) [Mass/Vol] 12.5 g/dL Low 14.0-18.0 [facility] Comment on above: Performed By: #### L TAC #### Testing performed at [facility] MCH (RBC) [Entitic mass] 30.5 pg Normal 26.0-35.0 [facility] Comment on above: Performed By: #### L TAC #### Testing performed at [facility] MCHC (RBC) [Mass/Vol] 34.2 g/dL Normal 27.0-37.0 [facility] Comment on above: Performed By: #### L TAC #### Testing performed at [facility] MCV (RBC) [Entitic vol] 89.1 fL Normal 80.0-100.0 [facility] Comment on above: Performed By: #### L TAC #### Testing performed at [facility] Platelet mean volume (Bld) [Entitic vol] 8.6 fL Normal 7.4-11.0 [facility] Comment on above: Performed By: #### L TAC #### Testing performed at [facility] Platelets (Bld) [#/Vol] 151 10*3/uL Normal 130.0-400.0 [facility] Comment on above: Performed By: #### L TAC #### Testing performed at [facility] RBC (Bld) [#/Vol] 4.11 10*6/uL Normal 4.0-6.1 [facility] Comment on above: Performed By: #### L TAC #### Testing performed at [facility] WBC (Bld) [#/Vol] 6.8 10*3/uL Normal 3.6-11.0 [facility] Comment on above: Performed By: #### L TAC #### Testing performed at [facility] FAX REQUESTon 04-05-2022 FAX TO [phone] [facility] Comment on above: Performed By: #### I PTH #### Testing performed at [facility] [address] [place] [address] FAX TO [phone] [facility] Comment on above: Performed By: #### L TAC #### Testing performed at [facility] LAST DOSEon 04-05-2022 LAST DOSE 10.5.22 @2230 [facility] Comment on above: Performed By: #### L TAC #### Testing performed at [facility] MAGNESIUMon 04-05-2022 Magnesium [Mass/Vol] 1.9 mg/dL Normal 1.6-2.3 [facility] Comment on above: Performed By: #### L TAC #### Testing performed at [facility] PHOSPHOROUSon 04-05-2022 PHOSPHOROUS 2.8 MG/DL Normal 2.5-4.5 [facility] Comment on above: Performed By: #### L TAC #### [facility]TACT[facility] 04-05-2022 PTH,INTACT 59.2 pg/mL Normal 12-88 [facility] Comment on above: Performed By: #### I PTH #### Testing performed at [facility] [address] [place] [address] PSA, REFLEX TO FREE AND TOTA L PSAon 01-04-2022 Interpretation and review of laboratory results Normal [facility] Prostate specific Ag [Mass/Vol] 0.68 ng/mL <=4.00 [facility] Comment on above: This test was perfor med on the [employer] Immunoassay platform which is a 2-step sandwich chemiluminescent immunoassay. It is important to note that assays using different manufacturers and/or methods may not be comparable. [facility] TYPE AND SCREEN - PREADMISSI ONon 01-04-2022 ABO/RH(D) TYPE Positive [facility] XR Spine Lumbar and Sacrum 5 Viewson 10-13-2021 IMPRESSION: No evidence of acute fracture or dislocation. No significant degeneration. RADIOLOGY EXAM: XR SPINE LUMBOSACRAL 5 VIEWS HISTORY: Low back pain. COMPARISON: None. TECHNIQUE: 5 views. FINDINGS: 5 lumbar type vertebrae are present. Pedicles are intact. Vertebral body heights and disc spaces are well-maintained. No evidence of acute fracture or dislocation. RADIOLOGY Radha Tejada DO - 10/13/2021 EXAM: XR SPINE LUMBOSACRAL 5 VIEWS HISTORY: Low back pain. COMPARISON: None. TECHNIQUE: 5 views. FINDINGS: 5 lumbar type vertebrae are present. Pedicles are intact. Vertebral body heights and disc spaces are well-maintained. No evidence of acute fracture or dislocation. IMPRESSION IMPRESSION: No evidence of acute fracture or dislocation. No significant degeneration. [facility] XR Spine Lumbar and Sacrum 5 ViewsOrdered By: Radha Tejada on 10-13-2021 [facility] [employer] [facility] Work Phone: Kidneyon 10-12-2021 IMPRESSION: 1. Polycystic kidneys. 2. Mild hydronephrosis of the right lower quadrant renal transplant which allowing for differences in technique is similar to CT from 12/25/2019. RADIOLOGY EXAM: US RENAL INDICATION: Polycystic kidney disease. Renal transplant 09/25/2016 COMPARISON: CT abdomen pelvis 12/25/2019 TECHNIQUE: Grayscale, color Doppler, and spectral images of the kidneys were obtained. Ultrasound of the bladder was also performed. FINDINGS: Right Kidney: Enlarged right kidney containing numerous cysts replacing the majority of the parenchyma. No suspicious renal lesion identified. Right Kidney length: 16.6 cm Right Collecting System: No hydronephrosis. Left Kidney: Enlarged left kidney contains numerous cysts replacing the majority of the parenchyma. No suspicious renal lesion identified. Left Kidney length: 15.6 cm Left Collecting System: No hydronephrosis. Right lower quadrant renal transplant: Normal corticomedullary differentiation. The right renal transplant measures 11.4 x 4.9 x 6.2 cm. No suspicious renal lesion or stone. Mild hydronephrosis which allowing for differences in technique is similar to prior CT. Bladder: Normal. Bilateral ureteral jets seen. RADIOLOGY Trisha Martines MD - 10/12/2021 EXAM: US RENAL INDICATION: Polycystic kidney disease. Renal transplant 09/25/2016 COMPARISON: CT abdomen pelvis 12/25/2019 TECHNIQUE: Grayscale, color Doppler, and spectral images of the kidneys were obtained. Ultrasound of the bladder was also performed. FINDINGS: Right Kidney: Enlarged right kidney containing numerous cysts replacing the majority of the parenchyma. No suspicious renal lesion identified. Right Kidney length: 16.6 cm Right Collecting System: No hydronephrosis. Left Kidney: Enlarged left kidney contains numerous cysts replacing the majority of the parenchyma. No suspicious renal lesion identified. Left Kidney length: 15.6 cm Left Collecting System: No hydronephrosis. Right lower quadrant renal transplant: Normal corticomedullary differentiation. The right renal transplant measures 11.4 x 4.9 x 6.2 cm. No suspicious renal lesion or stone. Mild hydronephrosis which allowing for differences in technique is similar to prior CT. Bladder: Normal. Bilateral ureteral jets seen. IMPRESSION IMPRESSION: 1. Polycystic kidneys. 2. Mild hydronephrosis of the right lower quadrant renal transplant which allowing for differences in technique is similar to CT from 12/25/2019. [facility] Radiology Study observation (narrative) [facility] US KidneyOrdered By: Trisha Patino on 10-12-2021 [facility] Work Phone: XR Spine Lumbar and Sacrum 5 Viewson 10-12-2021 Radiology Study observation (narrative) [facility] POCT URINALYSIS DIPSTICK AUT OMATED W/O SCOPon 10-09-2021 Amorphous sediment LM Ql (Urine sed) [facility] Appearance (U) CLEAR [facility] Bacteria LM Ql (Urine sed) [facility] Bilirubin Ql (U) Negative [facility] Casts LM.LPF (Urine sed) [#/Area] [facility] Color (U) YELLOW [facility] Crystals LM Nom (Urine sed) [facility] Epithelial cells.squamous LM.HPF (Urine sed) [#/Area] [facility] Flow cytometry specialist review Vikas (Unsp spec) [Interp] [facility] Glucose Auto test strip (U) [Mass/Vol] Negative mg/dL [facility] Interpretation and review of laboratory results Normal [facility] Ketones [Mass/Vol] Negative mg/dL [facility] Leukocyte esterase Qn (U) [facility] Leukocyte esterase Test strip Ql (U) Negative [facility] Nitrite Ql (U) Negative [facility] pH (U) 7.0 [pH] [facility] Protein Ql (U) Negative mg/dL [facility] RBC LM.HPF (Urine sed) [#/Area] [facility] RBC Ql (U) Negative [facility] Specific gravity (U) [Rel density] 1.025 [facility] Transitional cells LM Ql (Urine sed) [facility] Urobilinogen Qn (U) 0.2 [facility] WBC LM.HPF (Urine sed) [#/Area] [facility] ECG 12 lead ECGon 08-06-2018 ECG 12 lead ECG [facility] Main [address] [address] Electrocardiograph Report Signed Patient: Zoie Heath MR#: [id number] : 1965 Acct:[id number] Age/Sex: 53 / M ADM Date: 08/06/18 Loc: ID Room: Type: [facility] Attending Dr: Familia Stringer MD Ordering Provider: Jackson De La Cruz MD Date of Service: 08/06/18 ECG/ECG 12 lead ECG: pre-op Copies to: Test Reason : Blood Pressure : / mmHG Vent. Rate : 064 BPM Atrial Rate : 064 BPM P-R Int : 178 ms QRS Dur : 092 ms QT Int : 392 ms P-R-T Axes : 042 -29 029 degrees QTc Int : 404 ms Normal sinus rhythm Normal ECG Confirmed by DEREK JIMÉNEZ DO ([id number]) on 08/06/2018 12:03:24 PM Referred By: Electronically Signed By:DEREK JIMÉNEZ DO Transcribed By: MUS Dictated By: Derek Jiménez DO 08/06/18 0759 Signed By: 08/06/18 1203 [facility] Abel 08-06-2018 L - -------- Specimen: [id number] Received: 08/06/18 Status: EMILIE Gastelum Num: [id number] Spec Type: Surgical Subm Dr: Familia Stringer MD Tissues: A Fistula (LT UP ARM FISTULA) Procedures: SONYA Garner, Gross/Micro L3 -------- Patient Age/Sex Location Account Attending Physician -------- Zoie Heath 53/M ID [id number] Familia Stringer MD -------- SPEC NUM: [id number] RECD: 08/06/18 STATUS: EMILIE GASTELUM NUM: [id number] ZULEIMA: 08/06/[address] [facility] [address]: Familia Stringer MD ENTERED: 08/06/[address] [facility] [address]: ADAM TYPE: Surgical DEPT: S ENTERED BY: [id number] RECV BY: [id number] ORDERED: HE Stain, Gross/Micro L3 ORDERED: HE Stain, Gross/Micro L3 Pathological Diagnosis Left upper arm, aneurysm, excision: Blood clot consistent with aneurysm. Specimen Clinical Information Aneurysm AV fistula; excision left arm fistula Gross Received in formalin, labeled with the patient's name, number, and aneurysm left upper arm fistula is a 14.3 cm in length x 0.7 to 2.7 cm in diameter tubular tissue fragment with scant adherent yellow lobulated fat. Within the most dilated portion of the specimen is red, laminated, gelatinous blood clot. [employer] sections are submitted in one cassette. (OCTAVIO/ORACIO/mary anne) Microscopic One glass slide with H E stained material has been examined. The microscopic findings support the above pathologic diagnosis. [id number] A. Fistula - LT UP ARM FISTULA -------- -------- Specimen: [id number] Received: 08/06/18 Status: EMILIE Gastelum Num: [id number] Spec Type: Surgical Subm Dr: Familia Stringer MD Tissues: A Fistula (LT UP ARM FISTULA) Procedures: HE Stain, Gross/Micro L3 -------- Patient: Zoie Heath [id number] (Continued) -------- Signed (signature on file) Jone Bentley MD 08/07/18 1512 Normal [facility] Potassiumon 08-06-2018 Potassium molar conc 4.9 mmol/L Normal 3.5-5.1 [facility] Comment on above: Result Comment: PERF ORMED BY: [facility] [address] [facility] [place] [id number] PATHOLOGIST [employer]ERE[employer] COMP[employer]ER CLARIBEL MCKENZIE M.D. Performed By: #### K #### [facility] [address] CBC, PLATELETS PANEL, MANUAL ENTERon 05-28-2018 CBC, PLATELETS, MANUAL ENTER Invalid Interpretation Code LAB, [facility] HEMATOCRIT (HCT), MANUAL ENTER 48 Invalid Interpretation Code LAB, [facility] Hemoglobin (HGB), MANUAL ENTER 16.1 Invalid Interpretation Code LAB, [facility] MEAN CELL HGB CONCENTRATION, MANUAL ENTER Invalid Interpretation Code LAB, [facility] MEAN CELL VOLUME, MANUAL ENTER Invalid Interpretation Code LAB, [facility] MEAN PLATELET VOLUME, MANUAL ENTER Invalid Interpretation Code LAB, [facility] PLATELETS, MANUAL ENTER 148 Invalid Interpretation Code LAB, [facility] WBC, MANUAL ENTER 7.2 Invalid Interpretation Code LAB, [facility] NA,K,CL,CO2,BUN,CREA,GLUC, M ANUAL ENTERon 05-28-2018 Blood Urea Nitrogen (BUN), MANUAL ENTER 26 Invalid Interpretation Code LAB, [facility] Carbon Diox(CO2), MANUAL ENTER 26 Invalid Interpretation Code LAB, [facility] Chloride (CL), MANUAL ENTER 106 Invalid Interpretation Code LAB, [facility] CREATININE, SERUM, MANUAL ENTER 1.7 Invalid Interpretation Code LAB, [facility] GLUCOSE, MANUAL ENTER 103 Invalid Interpretation Code LAB, [facility] POTASSIUM (K+), MANUAL ENTER 5.5 Invalid Interpretation Code LAB, [facility] SODIUM (NA), MANUAL ENTER 139 mmol/L Invalid Interpretation Code LAB, [facility] Urinalysison 05-28-2018 RBC Test strip #/vol (U) Invalid Interpretation Code LAB, [facility] Fax Requeston 01-28-2017 Fax To [phone] [facility] Comment on above: Performed By: #### F X ####[facility] [id number] [place] [id number] lab Director: Dr. Bryce Vaughn DO Faxed By PAY 12:58 01/28/17 [facility] Comment on above: Performed By: #### F X ####[facility] [id number] [place] [address] lab Director: Dr. Bryce Vaughn DO Specimen # [id number] [facility] Comment on above: Performed By: #### F X ####[facility] [address] [place] [id number] lab Director: Dr. Bryce Vaughn DO Tacrolimus Lvlon 01-28-2017 Last Dose 01.27.17 at 2245 [facility] Comment on above: Performed By: #### L TAC ####[facility] [address] [place] [address] Tacrolimus Level See Ref. Lab report [facility] Comment on above: Performed By: #### L TAC ####[facility] [address] [place] [address] Fax Requeston 01-21-2017 Fax To [phone] [facility] Comment on above: Performed By: #### F X ####[facility] [address] [place], [place] [id number] lab Director: Dr. Bryce Vaughn DO Faxed By [facility] 01/21/17 @ [facility]2 [facility] Comment on above: Performed By: #### F X ####[facility] [address] [place] [address] lab Director: Dr. Bryce Vaughn, Lipid Profileon 01-21-2017 Cholesterol 124 mg/dL Normal 100 - 199 [facility] Comment on above: Performed By: #### L IP2 ####[facility] [address] [place] [address] Cholesterol in VLDL mass conc 13.0 mg/dL Normal <50.0 [facility] Comment on above: Performed By: #### L IP2 ####[facility] [address] [place] [address] Comment [facility] Comment on above: Result Comment: Lito martin Reference RangeDesirable <200 mg/dLBoderline High 200-239mg/dLHigh >240 mg/dL Performed By: #### L IP2 ####[facility] [address] [place] [address] Coronary Risk 2.88 [facility] Comment on above: Performed By: #### L IP2 ####[facility] [address] [place] [address] Coronary Risk Ref Text Normal [facility] Comment on above: Result Comment: Risk Ratio Men Women1/2 Average 3.433.27Average 4.97 4.442X Average 9.55 7.053X Hmkffig82.99 11.04 Performed By: #### L IP2 ####[facility] [address] [place] [address] HDL Cholesterol 43 mg/dL Normal 40 - 60 [facility] Comment on above: Performed By: #### L IP2 ####[facility] [address] [place] [address] LDL Cholesterol 68 mg/dl Normal 0 - 100 [facility] Comment on above: Performed By: #### L IP2 ####[facility] [address] [place] [address] Specimen # Vitros [id number] [facility] Comment on above: Performed By: #### L IP2 ####[facility] [address] [place] [address] Triglyceride 65 mg/dL Normal <150 [facility] Comment on above: Performed By: #### L IP2 ####[facility] [address] [place] [address] Tacrolimus Lvlon 01-21-2017 Last Dose 01.20.2017 AT 2300 [facility] Comment on above: Performed By: #### L TAC ####[facility] [address] [place] [address] [facility] By [facility] Comment on above: Performed By: #### L TAC ####[facility] [address] [place] [address] lab Director: Dr. Bryce Vaughn DO Specimen # [id number] [facility] Comment on above: Performed By: #### L TAC ####[facility] [address] [place] [address] lab Director: Dr. Bryce Vaughn DO Performed By: #### F X ####[facility] [address] [place] [address] lab Director: Dr. Bryce Vaughn DO Tacrolimus Level See Ref. Lab report [facility] Comment on above: Performed By: #### L TAC ####[facility] [place], [place] [id number] Tacrolimus Lvl 7.4 [facility] Comment on above: Performed By: #### L TAC ####[facility] [address] [place] [address] lab Director: Dr. Bryce Vaughn DO Tacrolimus Lvl Ref Text [facility] Comment on above: Result Comment: Refe rence range: 2.0 to 20.0 Unit: ng/mL(NOTE) Trough (immediately following transplant) 15.0 Trough (steady state, 2 weeks or more after transplant): 3.0 - 8.0 Detection Limit = 1.0 Performed by LC-MS/MS technology.PERFORMED AT [facility] Performed By: #### L TAC ####[facility] [address] [place], [place] [id number] lab Director: Dr. Bryce Vaughn DO Radiologyon 01-14-2017 Radiology Type: OutpatientDictated by: Signed by: Transcribed by: Transcribed Date/Time: 01/04/2017 12:06Dictation Date/Time: 01/02/2017 10:49Report: DATE OF SERVICE: 12/26/2016 DIAGNOSTIC STUDIES/INTERPRETATIO N: Three views of the left wrist taken in our office today interpreted by me demonstrate a distal radius fracture, which is nondisplaced and non-angulated. The fracture lines are less evident and there are signs of callus healing compared to previous study. The metacarpals and remaining components of the wrist remain well aligned. No other acute osseous abnormalities noted. [facility] Tacrolimus Lvlon 01-14-2017 Last Dose 01-13-17 AT 2200 [facility] Comment on above: Performed By: #### L TAC ####[facility] [address] [place] [address] Performed By [facility] Comment on above: Performed By: #### L TAC ####[facility] [address] [place], [place] [id number] lab Director: Dr. Bryce Vaughn, DO Specimen # [id number] [facility] Comment on above: Performed By: #### L TAC ####[facility] [address] [place] [address] lab Director: Dr. Bryce Vaughn, DO Tacrolimus Level See Ref. Lab report [facility] Comment on above: Performed By: #### L TAC ####[facility] [address] [place] [address] Tacrolimus Lvl 8.7 [facility] Comment on above: Performed By: #### L TAC ####[facility] [address] [place], [place] [id number] Lab Director: Dr. Bryce Vaughn, DO Tacrolimus Lvl Ref Text [facility] Comment on above: Result Comment: Refe rence range: 2.0 to 20.0 Unit: ng/mL(NOTE) Trough (immediately following transplant) 15.0 Trough (steady state, 2 weeks or more after transplant): 3.0 - 8.0 Detection Limit = 1.0 Performed by LC-MS/MS technology.PERFORMED AT [facility] Performed By: #### L TAC ####[facility] [address] [place] [address] lab Director: Dr. Bryce Vaughn, DO Tacrolimus Lvlon 01-07-2017 Last Dose 7.9.17 at 2215 [facility] Comment on above: Performed By: #### L TAC ####[facility] [address] [place] [address] Performed By [facility] Comment on above: Performed By: #### L TAC ####[facility] [address] [place] [address] lab Director: Dr. Bryce Vaughn, Specimen # [id number] [facility] Comment on above: Performed By: #### L TAC ####[facility] [address] [place] [id number] lab Director: Dr. Bryce Vaughn, DO Tacrolimus Level See Ref. Lab report [facility] Comment on above: Performed By: #### L TAC ####[facility] [address] [place] [address] Tacrolimus Lvl 7.2 [facility] Comment on above: Performed By: #### L TAC ####[facility] [address] [place] [id number] lab Director: Dr. Bryce Vaughn, DO Tacrolimus Lvl Ref Text [facility] Comment on above: Result Comment: Refe rence range: 2.0 to 20.0 Unit: ng/mL(NOTE) Trough (immediately following transplant) 15.0 Trough (steady state, 2 weeks or more after transplant): 3.0 - 8.0 Detection Limit = 1.0 Performed by LC-MS/MS technology.PERFORMED AT [facility] Performed By: #### L TAC ####[facility] [address] [place] [address] lab Director: Dr. Bryce Vaughn, Tacrolimus Lvlon 12-31-2016 Last Dose . at 2230 [facility] Comment on above: Performed By: #### L TAC ####[facility] [address] [place] [address] Performed By [facility] Comment on above: Performed By: #### L TAC ####[facility] [address] [place] [address] lab Director: Dr. Bryce Vaughn, Specimen # [id number] [facility] Comment on above: Performed By: #### L TAC ####[facility] [address] [place] [address] lab Director: Dr. Bryce Vaughn, Tacrolimus Level See Ref. Lab report [facility] Comment on above: Performed By: #### L TAC ####[facility] [address] [place] [address] Tacrolimus Lvl 8.3 [facility] Comment on above: Performed By: #### L TAC ####[facility] [address] [place] [address] lab Director: Dr. Bryce Vaughn, Tacrolimus Lvl Ref Text [facility] Comment on above: Result Comment: Refe rence range: 2.0 to 20.0 Unit: ng/mL(NOTE) Trough (immediately following transplant) 15.0 Trough (steady state, 2 weeks or more after transplant): 3.0 - 8.0 Detection Limit = 1.0 Performed by LC-MS/MS technology.PERFORMED AT [facility] Performed By: #### L TAC ####[facility] [address] [place] [address] lab Director: Dr. Bryce Vaughn, Vital Signs Date Time Vital Sign Value Performing Clinician Faci lity 09-30-2023 15:22-0400 Diastolic blood pressure 82 mm[Hg] Caty Tychonievich TRACK RIDER-MACHINE STAMPER Work Phone: [facility] 09-30-2023 15:22-0400 Systolic blood pressure 132 mm[Hg] Caty Tychonievich TRACK RIDER-MACHINE STAMPER Work Phone: [facility] 09-30-2023 13:51-0400 Body height 170.2 cm Caty Tyguillermonievich TRACK RIDER-MACHINE STAMPER Work Phone: [facility] 09-30-2023 13:51-0400 Body mass index (BMI) [Ratio] 35.91 kg/m2 Caty Tychonievich TRACK RIDER-MACHINE STAMPER Work Phone: [facility] 09-30-2023 13:51-0400 Body temperature 97.81 [degF] Caty Tyrogerioevich TRACK RIDER-MACHINE STAMPER Work Phone: [facility] 09-30-2023 13:51-0400 Body weight 104.01 kg Caty Tyrogerioevich TRACK RIDER-MACHINE STAMPER Work Phone: [facility] 09-30-2023 13:51-0400 Heart rate 63 /min Catyjuan Johnsonich TRACK RIDER-MACHINE STAMPER Work Phone: [facility] 09-30-2023 13:51-0400 Respiratory rate 16 /min Catyjuan Navanievich TRACK RIDER-MACHINE STAMPER Work Phone: [facility] 09-30-2023 13:51-0400 SaO2% (BldA) [Mass fraction] 98 % [facility] TRACK RIDER-MACHINE STAMPER Work Phone: [facility] Comment on above: [facility] 2023 10:30-0500 Diastolic blood pressure 75 mm[Hg] Schuyler Sparks MD Work Phone: [facility] 2023 10:30-0500 Heart rate 58 /min Schuyler Sparks MD Work Phone: [facility] 2023 10:30-0500 Respiratory rate 22 /min Schuyler Sparks MD Work Phone: [facility] 2023 10:30-0500 SaO2% (BldA) [Mass fraction] 97 % Schuyler Sparks MD Work Phone: [facility] 2023 10:30-0500 Systolic blood pressure 158 mm[Hg] Schuyler Sparks MD Work Phone: [facility] 2023 09:59-0500 Body temperature 98.6 [degF] Schuyler Sparks MD Work Phone: [facility] 2023 09:09-0500 Body height 170.2 cm Schuyler Sparks MD Work Phone: [facility] 04-19-2023 10:26-0400 Body height 170.2 cm Ilene Bark DPM Work Phone: [facility] 04-19-2023 10:26-0400 Body mass index (BMI) [Ratio] 38.4 kg/m2 Ilene Bark DPM Work Phone: [facility] 04-19-2023 10:26-0400 Body temperature 97.7 [degF] Ilene Bark DPM Work Phone: [facility] 04-19-2023 10:26-0400 Body weight 111.2 kg Ilene Bark DPM Work Phone: [facility] 04-16-2023 14:21-0400 Body height 170.2 cm Mariana Miranda APRN-MACHINE STAMPER Work Phone: [facility] 04-16-2023 14:21-0400 Body mass index (BMI) [Ratio] 38.4 kg/m2 Mariana Miranda TRACK RIDER-MACHINE STAMPER Work Phone: [facility] 04-16-2023 14:21-0400 Body temperature 98.71 [degF] Mariana Miranda TRACK RIDER-MACHINE STAMPER Work Phone: [facility] 04-16-2023 14:21-0400 Body weight 111.22 kg Mariana Miranda TRACK RIDER-MACHINE STAMPER Work Phone: [facility] 04-16-2023 14:21-0400 Diastolic blood pressure 74 mm[Hg] Mariana Miranda TRACK RIDER-MACHINE STAMPER Work Phone: [facility] 04-16-2023 14:21-0400 Heart rate 86 /min Mariana Miranda TRACK RIDER-MACHINE STAMPER Work Phone: [facility] 04-16-2023 14:21-0400 Respiratory rate 18 /min Mariana Miranda TRACK RIDER-MACHINE STAMPER Work Phone: [employer] [facility] 04-16-2023 14:21-0400 SaO2% (BldA) [Mass fraction] 97 % Mariana Miranda TRACK RIDER-MACHINE STAMPER Work Phone: [facility] 04-16-2023 14:21-0400 Systolic blood pressure 120 mm[Hg] Mariana Miranda TRACK RIDER-MACHINE STAMPER Work Phone: [facility] 03-10-2023 23:11-0400 Body height 170.2 cm Jackson Shaffer MD Work Phone: [facility] [employer] [facility] 03-10-2023 23:11-0400 Body temperature 97.39 [degF] Jackson Shaffer MD Work Phone: [facility] 03-10-2023 23:11-0400 Diastolic blood pressure 70 mm[Hg] Jackson Shaffer MD Work Phone: [facility] [employer] [facility] 03-10-2023 23:11-0400 Heart rate 67 /min Jackson Shaffer MD Work Phone: [facility] 03-10-2023 23:11-0400 Respiratory rate 20 /min Jackson Shaffer MD Work Phone: [facility] 03-10-2023 23:11-0400 SaO2% (BldA) [Mass fraction] 100 % Jackson Shaffer MD Work Phone: [facility] 03-10-2023 23:11-0400 Systolic blood pressure 154 mm[Hg] Jackson Shaffer MD Work Phone: [facility] 12-10-2022 14:04-0400 Body height 170.2 cm Caty Tychonievich TRACK RIDER-MACHINE STAMPER Work Phone: [facility] 12-10-2022 14:04-0400 Body mass index (BMI) [Ratio] 37.79 kg/m2 Caty Tychonievich TRACK RIDER-MACHINE STAMPER Work Phone: [facility] 12-10-2022 14:04-0400 Body temperature 97.59 [degF] Caty Tychonievich TRACK RIDER-MACHINE STAMPER Work Phone: [facility] 12-10-2022 14:04-0400 Body weight 109.45 kg Caty Tychonievich TRACK RIDER-MACHINE STAMPER Work Phone: [facility] 12-10-2022 14:04-0400 Diastolic blood pressure 74 mm[Hg] Caty Tychonievich TRACK RIDER-MACHINE STAMPER Work Phone: [facility] 12-10-2022 14:04-0400 Heart rate 65 /min Caty Tychonievich TRACK RIDER-MACHINE STAMPER Work Phone: [facility] 12-10-2022 14:04-0400 Respiratory rate 16 /min Caty Tychonievich TRACK RIDER-MACHINE STAMPER Work Phone: [facility] 12-10-2022 14:04-0400 Systolic blood pressure 142 mm[Hg] Caty Tychonievich TRACK RIDER-MACHINE STAMPER Work Phone: [facility] 10-29-2022 09:57-0400 Body height 170.2 cm Mariana Miranda TRACK RIDER-MACHINE STAMPER Work Phone: [facility] 10-29-2022 09:57-0400 Body mass index (BMI) [Ratio] 37.34 kg/m2 Mariana Harkinschik TRACK RIDER-MACHINE STAMPER Work Phone: [facility] [employer] [facility] 10-29-2022 09:57-0400 Body temperature 97.5 [degF] Mariana Harkinschik TRACK RIDER-MACHINE STAMPER Work Phone: [facility] [facility] 10-29-2022 09:57-0400 Body weight 108.14 kg Mariana Harkinschik TRACK RIDER-MACHINE STAMPER Work Phone: [facility] [employer] [facility] 10-29-2022 09:57-0400 Diastolic blood pressure 58 mm[Hg] Mariana Harkinschik TRACK RIDER-MACHINE STAMPER Work Phone: [facility] [facility] 10-29-2022 09:57-0400 Heart rate 71 /min Mariana Healyk TRACK RIDER-MACHINE STAMPER Work Phone: [facility] [facility] 10-29-2022 09:57-0400 Respiratory rate 18 /min Mariana Healyk TRACK RIDER-MACHINE STAMPER Work Phone: [facility] [facility] 10-29-2022 09:57-0400 SaO2% (BldA) [Mass fraction] 97 % Mariana Harkinschik TRACK RIDER-MACHINE STAMPER Work Phone: [facility] [employer] [facility] 10-29-2022 09:57-0400 Systolic blood pressure 116 mm[Hg] Mariana Harkinschik TRACK RIDER-MACHINE STAMPER Work Phone: [facility] 10-26-2022 20:18-0400 Body height 170.2 cm Mary Moreira PA-C Work Phone: [facility] 10-26-2022 20:18-0400 Body mass index (BMI) [Ratio] 38.01 kg/m2 Mary Diasort PA-C Work Phone: [facility] 10-26-2022 20:18-0400 Body temperature 98.6 [degF] Mary Lamport PA-C Work Phone: [facility] 10-26-2022 20:18-0400 Body weight 110.09 kg Mary Lamport PA-C Work Phone: [facility] 10-26-2022 20:18-0400 Diastolic blood pressure 75 mm[Hg] Mary Lamport PA-C Work Phone: [facility] 10-26-2022 20:18-0400 Heart rate 74 /min Mary Lamport PA-C Work Phone: [facility] 10-26-2022 20:18-0400 Respiratory rate 18 /min Mary Lamport PA-C Work Phone: [facility] 10-26-2022 20:18-0400 SaO2% (BldA) [Mass fraction] 93 % Mary Lamport PA-C Work Phone: [facility] 10-26-2022 20:18-0400 Systolic blood pressure 122 mm[Hg] Mary Lamport PA-C Work Phone: [facility] 10-24-2022 07:18-0400 Body height 170.2 cm Elizabeth Hernadez MD Work Phone: [facility] 10-24-2022 07:16-0400 Body temperature 97.9 [degF] Elizabeth Hernadez MD Work Phone: [facility] 10-24-2022 07:16-0400 Diastolic blood pressure 67 mm[Hg] Elizabeth Hernadez MD Work Phone: [facility] 10-24-2022 07:16-0400 Heart rate 67 /min Elizabeth Henradez MD Work Phone: [facility] 10-24-2022 07:16-0400 Respiratory rate 18 /min Elizabeth Hernadez MD Work Phone: [facility] 10-24-2022 07:16-0400 SaO2% (BldA) [Mass fraction] 99 % Elizabeth Hernadez MD Work Phone: [facility] 10-24-2022 07:16-0400 Systolic blood pressure 140 mm[Hg] Elizabeth Hernadez MD Work Phone: [facility] 09-02-2022 12:57-0500 Body mass index (BMI) [Ratio] 36.59 kg/m2 Jasvir Vilchis MACHINE STAMPER Work Phone: [facility] 09-02-2022 12:57-0500 Body temperature 99.61 [degF] Jasvir Adkinsino MACHINE STAMPER Work Phone: [facility] 09-02-2022 12:57-0500 Body weight 105.96 kg Jasvir Adkinsino MACHINE STAMPER Work Phone: [facility] 09-02-2022 12:57-0500 Diastolic blood pressure 72 mm[Hg] Jasvir Adkinsino MACHINE STAMPER Work Phone: [facility] 09-02-2022 12:57-0500 Heart rate 86 /min Jasvir Adkinsino MACHINE STAMPER Work Phone: [facility] 09-02-2022 12:57-0500 Respiratory rate 16 /min Jasvir Vilchis MACHINE STAMPER Work Phone: [facility] 09-02-2022 12:57-0500 SaO2% (BldA) [Mass fraction] 96 % Jasvir Vilchis MACHINE STAMPER Work Phone: [facility] 09-02-2022 12:57-0500 Systolic blood pressure 114 mm[Hg] Jasvir Adkinsino MACHINE STAMPER Work Phone: [facility] 08-30-2022 10:32-0500 Body height 170.2 cm Jasvir Vilchis MACHINE STAMPER Work Phone: [facility] 08-30-2022 10:32-0500 Body mass index (BMI) [Ratio] 37.12 kg/m2 Jasvir Deng MACHINE STAMPER Work Phone: [facility] 08-30-2022 10:32-0500 Body temperature 98.2 [degF] Jasvir Vilchis CNP Work Phone: [facility] 08-30-2022 10:32-0500 Body weight 107.5 kg Jasvir Vilchis MACHINE STAMPER Work Phone: [facility] 08-30-2022 10:32-0500 Diastolic blood pressure 75 mm[Hg] Jasvri Vilchis MACHINE STAMPER Work Phone: [facility] 08-30-2022 10:32-0500 Heart rate 92 /min Jasvir Vilchis MACHINE STAMPER Work Phone: [facility] 08-30-2022 10:32-0500 Respiratory rate 16 /min Jasvir Vilchis MACHINE STAMPER Work Phone: [facility] 08-30-2022 10:32-0500 SaO2% (BldA) [Mass fraction] 96 % Jasvir Vilchis MACHINE STAMPER Work Phone: [facility] 08-30-2022 10:32-0500 Systolic blood pressure 113 mm[Hg] Jasvir Vilchis MACHINE STAMPER Work Phone: [facility] 04-21-2022 10:51-0400 Body height 170.2 cm Raheem Archuleta MD Work Phone: [facility] 04-21-2022 10:50-0400 Body temperature 98.01 [degF] Raheem Archuleta MD Work Phone: [facility] 04-21-2022 10:50-0400 Diastolic blood pressure 77 mm[Hg] Raheem Archuleta MD Work Phone: [facility] 04-21-2022 10:50-0400 Heart rate 67 /min Raheem Archuleta MD Work Phone: [facility] 04-21-2022 10:50-0400 Respiratory rate 16 /min Raheem Archuleta MD Work Phone: [facility] 04-21-2022 10:50-0400 SaO2% (BldA) [Mass fraction] 97 % Raheem Archuleta MD Work Phone: [facility] 04-21-2022 10:50-0400 Systolic blood pressure 140 mm[Hg] Raheem Archuleta MD Work Phone: [facility] 03-02-2022 14:25-0400 Body height 170.2 cm Mariana Trubachik TRACK RIDER-MACHINE STAMPER Work Phone: [facility] 03-02-2022 14:25-0400 Body mass index (BMI) [Ratio] 35.15 kg/m2 Mariana Trubachik TRACK RIDER-MACHINE STAMPER Work Phone: [facility] 03-02-2022 14:25-0400 Body temperature 98.1 [degF] Mariana Trubachik TRACK RIDER-MACHINE STAMPER Work Phone: [facility] 03-02-2022 14:25-0400 Body weight 101.79 kg Mariana Trubachik TRACK RIDER-MACHINE STAMPER Work Phone: [facility] 03-02-2022 14:25-0400 Diastolic blood pressure 68 mm[Hg] Mariana Trubachik TRACK RIDER-MACHINE STAMPER Work Phone: [employer] 03-02-2022 14:25-0400 Heart rate 73 /min Mariana Trubachik TRACK RIDER-MACHINE STAMPER Work Phone: [facility] 03-02-2022 14:25-0400 Respiratory rate 18 /min Mariana Trubachik TRACK RIDER-MACHINE STAMPER Work Phone: [facility] 03-02-2022 14:25-0400 SaO2% (BldA) [Mass fraction] 97 % Mariana Trubachik TRACK RIDER-MACHINE STAMPER Work Phone: [facility] 03-02-2022 14:25-0400 Systolic blood pressure 130 mm[Hg] Mariana Trubachik TRACK RIDER-MACHINE STAMPER Work Phone: [facility] 01-08-2022 08:20-0400 Body height 170.2 cm Mariana Trubachik TRACK RIDER-MACHINE STAMPER Work Phone: [facility] 01-08-2022 08:20-0400 Body mass index (BMI) [Ratio] 34.64 kg/m2 Mariana Miranda TRACK RIDER-MACHINE STAMPER Work Phone: [facility] 01-08-2022 08:20-0400 Body temperature 98.01 [degF] Mariana Miranda TRACK RIDER-MACHINE STAMPER Work Phone: [facility] 01-08-2022 08:20-0400 Body weight 100.34 kg Mariana Miranda TRACK RIDER-MACHINE STAMPER Work Phone: [facility] 01-08-2022 08:20-0400 Diastolic blood pressure 80 mm[Hg] Mariana Miranda TRACK RIDER-MACHINE STAMPER Work Phone: [facility] 01-08-2022 08:20-0400 Heart rate 62 /min Mariana Healyk TRACK RIDER-MACHINE STAMPER Work Phone: [facility] 01-08-2022 08:20-0400 Respiratory rate 18 /min Mariana Miranda TRACK RIDER-MACHINE STAMPER Work Phone: [facility] 01-08-2022 08:20-0400 SaO2% (BldA) [Mass fraction] 97 % Mariana Miranda TRACK RIDER-MACHINE STAMPER Work Phone: [facility] 01-08-2022 08:20-0400 Systolic blood pressure 122 mm[Hg] Mariana Miranda TRACK RIDER-MACHINE STAMPER Work Phone: [facility] 01-04-2022 11:00-0400 Body height 170.2 cm Jennifer Marrufo DO Work Phone: [facility] 01-04-2022 11:00-0400 Body mass index (BMI) [Ratio] 33.8 kg/m2 Jennifer Marrufo DO Work Phone: [facility] 01-04-2022 11:00-0400 Body temperature 98.1 [degF] Jennifer Marrufo DO Work Phone: [facility] 01-04-2022 11:00-0400 Body weight 97.89 kg Jennifer Marrufo DO Work Phone: [facility] 01-04-2022 11:00-0400 Diastolic blood pressure 74 mm[Hg] Jennifer Marrufo DO Work Phone: [facility] 01-04-2022 11:00-0400 Heart rate 54 /min Jennifer [facility]rufo DO Work Phone: [facility] [facility] 01-04-2022 11:00-0400 Respiratory rate 20 /min Jennifer Marrufo DO Work Phone: [facility] 01-04-2022 11:00-0400 SaO2% (BldA) [Mass fraction] 97 % Jennifer Marrufo DO Work Phone: [facility] 01-04-2022 11:00-0400 Systolic blood pressure 134 mm[Hg] Jennifer Marrufo DO Work Phone: [facility] 11-30-2021 11:13-0400 Body height 170.2 cm Karon Howard MD Work Phone: [facility] 11-30-2021 11:13-0400 Body mass index (BMI) [Ratio] 33.47 kg/m2 Karon Howard MD Work Phone: [facility] 11-30-2021 11:13-0400 Body temperature 98.2 [degF] Karon Howard MD Work Phone: [facility] 11-30-2021 11:13-0400 Body weight 96.93 kg Karon Howard MD Work Phone: [facility] 11-30-2021 11:13-0400 Diastolic blood pressure 75 mm[Hg] Karon Howard MD Work Phone: [facility] 11-30-2021 11:13-0400 Heart rate 51 /min Karon Howard MD Work Phone: [facility] 11-30-2021 11:130400 Respiratory rate 16 /min Karon Howard MD Work Phone: [facility] 11-30-2021 11:13-0400 SaO2% (BldA) [Mass fraction] 96 % Karon Howard MD Work Phone: [facility] 11-30-2021 11:13-0400 Systolic blood pressure 131 mm[Hg] Karon Howard MD Work Phone: [facility] 10-26-2021 09:13-0400 Body mass index (BMI) [Ratio] 31.94 kg/m2 Suzie Giraldo MD, PhD Work Phone: [facility] 10-26-2021 09:13-0400 Body temperature 97.2 [degF] Suzie Giraldo MD, PhD Work Phone: [facility] 10-26-2021 09:13-0400 Body weight 92.49 kg Suzie Giraldo MD, PhD Work Phone: [facility] 10-26-2021 09:13-0400 Diastolic blood pressure 72 mm[Hg] Suzie Giraldo MD, PhD Work Phone: [facility] 10-26-2021 09:13-0400 Heart rate 59 /min Suzie Giraldo MD, PhD Work Phone: [facility] 10-26-2021 09:13-0400 Systolic blood pressure 128 mm[Hg] Suzie Giraldo MD, PhD Work Phone: [facility] 10-09-2021 13:11-0400 Body height 170.2 cm Marianamartir Harkinsneftalyterrell JANICE-MACHINE STAMPER Work Phone: [facility] 10-09-2021 13:11-0400 Body mass index (BMI) [Ratio] 32.62 kg/m2 Mariana Miranda TRACK RIDER-MACHINE STAMPER Work Phone: [facility] 10-09-2021 [id number] Body temperature 97.7 [degF] Mariana Miranda TRACK RIDER-MACHINE STAMPER Work Phone: [facility] 10-09-2021 [id number] Body weight 94.46 kg Mariana Miranda TRACK RIDER-MACHINE STAMPER Work Phone: [facility] 10-09-2021 13:11-0400 Diastolic blood pressure 70 mm[Hg] Mariana Miranda TRACK RIDER-MACHINE STAMPER Work Phone: [facility] 10-09-2021 13:11-0400 Heart rate 60 /min Mariana Miranda TRACK RIDER-MACHINE STAMPER Work Phone: [facility] 10-09-2021 13:11-0400 Respiratory rate 18 /min Mariana Miranda TRACK RIDER-MACHINE STAMPER Work Phone: [facility] 10-09-2021 13:11-0400 SaO2% (BldA) [Mass fraction] 98 % Mariana Miranda TRACK RIDER-MACHINE STAMPER Work Phone: [facility] 10-09-2021 13:11-0400 Systolic blood pressure 126 mm[Hg] Mariana Miranda TRACK RIDER-MACHINE STAMPER Work Phone: [facility] 09-18-2021 09:38-0400 Body mass index (BMI) [Ratio] 32.26 kg/m2 Andrew Trinidad TRACK RIDER-MACHINE STAMPER Work Phone: [facility] 09-18-2021 09:38-0400 Body temperature 97.7 [degF] Andrew Trinidad TRACK RIDER-MACHINE STAMPER Work Phone: [facility] 09-18-2021 09:38-0400 Body weight 93.44 kg Andrew Trinidad TRACK RIDER-MACHINE STAMPER Work Phone: [facility] 09-18-2021 09:38-0400 Diastolic blood pressure 76 mm[Hg] Andrew Trinidad TRACK RIDER-MACHINE STAMPER Work Phone: [facility] 09-18-2021 09:38-0400 Heart rate 56 /min Andrew Trinidad TRACK RIDER-MACHINE STAMPER Work Phone: [facility] 09-18-2021 09:38-0400 Systolic blood pressure 133 mm[Hg] Andrew Trinidad TRACK RIDER-MACHINE STAMPER Work Phone: [facility] 05-15-2018 15:08-0500 BMI (Body Mass Index) 39.63 kg/m2 [facility] Work Phone: 05-15-2018 15:08-0500 Body Temperature 97.11 [degF] [facility] Work Phone: 05-15-2018 15:08-0500 Height 170.2 cm [facility] Work Phone: 05-15-2018 15:08-0500 Weight 114.76 kg [facility] Work Phone: Encounters Encounter Date Encounter Type Care Provider Facility Start: 09-30-2023 ambulatory SELF SELF Facility:[facility] Start: 09-30-2023 Encounter for other preprocedural examination CATY PENN Facility:[facility] Start: 09-30-2023 ambulatory MARIANA Lawrence ity:[facility] Start: 09-30-2023 End: 09-30-2023 Office outpatient visit 40 minutes Caty Penn TRACK RIDER-MACHINE STAMPER Work Phone: [facility] Comment on above: Gastroesophageal ref lux disease, unspecified whether esophagitis present (Primary Dx); Class 2 severe obesity with serious comorbidity and body mass index (BMI) of 35.0 to 35.9 in adult, unspecified obesity type; Obstructive sleep apnea (adult) (pediatric); Vitamin D deficiency; Iron deficiency; Medication management; S/P laparoscopic sleeve gastrectomy; At risk for inadequate intake of multiple nutrients; Pre-op testing; History of obstructive sleep apnea Start: 09-30-2023 End: 09-30-2023 Patient encounter status Caty Penn TRACK RIDER-MACHINE STAMPER [facility] Start: 08-01-2023 ambulatory [facility] JANET Facil ity:[facility] Start: 07-29-2023 ambulatory REYNALDO MARES Facilit y:[facility] Start: 2023 ambulatory CATY PENN Facility:[facility] Start: 2023 End: 2023 Subsequent hospital visit by physician Schuyler Sparks MD Work Phone: [facility] Start: 05-28-2023 ambulatory SELF SELF Facility:[facility] Start: 05-28-2023 End: 05-28-2023 Office outpatient visit 15 minutes Aliza Davis MD Work Phone: [facility] Comment on above: Lentigines (Primary Dx); Skin cancer screening; Actinic skin damage; SK (seborrheic keratosis); [place] angioma; Melanocytic nevus of lower extremity including hip, unspecified laterality; Melanocytic nevi of trunk; Melanocytic nevus of upper extremity, unspecified laterality; Neoplasm of uncertain behavior of skin Start: 04-19-2023 ambulatory ILENE DIEGO [facility] Start: 04-19-2023 End: 04-19-2023 Subsequent hospital visit by physician Ilene Diego DPM Work Phone: [facility] Comment on above: Arrived Start: 04-19-2023 End: 04-19-2023 Office outpatient visit 25 minutes Ilene Diego DPM Work Phone: [facility] Comment on above: Right foot pain (Alesia david Dx); Sprain of right ankle, unspecified ligament, initial encounter Start: 04-16-2023 [facility] Start: 04-16-2023 End: 04-16-2023 Office outpatient visit 25 minutes [facility] TRACK RIDER-MACHINE STAMPER Work Phone: [facility] Comment on above: Acute right ankle pa in (Primary Dx); Sprain of right medial ankle joint, initial encounter Start: 03-11-2023 End: 03-11-2023 Emergency department patient visit JACKSON SHAFFER [facility] Start: 03-10-2023 End: 03-11-2023 Emergency department patient visit Jackson Shaffer MD Work Phone: [facility] Start: 01-15-2023 ambulatory [facility] Start: 01-07-2023 ambulatory CATY PENN Facility:[facility] Start: 12-10-2022 ambulatory [facility] Tone [facility] Facil ity:[facility] Start: 12-10-2022 End: 12-10-2022 Office outpatient visit 25 minutes Caty Penn TRACK RIDER-MACHINE STAMPER Work Phone: Bariatric Surgery [facility] Comment on above: Class 2 severe obesi ty with serious comorbidity and body mass index (BMI) of 36.0 to 36.9 in adult, unspecified obesity type (Primary Dx); Gastroesophageal reflux disease without esophagitis; S/P laparoscopic sleeve gastrectomy Start: 11-05-2022 ambulatory [facility] Start: 10-29-[address] [facility] Start: 10-29-2022 End: 10-29-2022 Office outpatient visit 25 minutes Mariana Miranda TRACK RIDER-MACHINE STAMPER Work Phone: [facility] Comment on above: Dog bite, initial en counter (Primary Dx); Encounter for post surgical wound check Start: 10-27-2022 End: 10-27-2022 Emergency department patient visit [facility] Start: 10-26-2022 End: 10-30-2022 ambulatory [facility] POLLO [facility] Start: 10-26-2022 End: 10-26-2022 Office outpatient visit 15 minutes Mary Moreira PA-C Work Phone: [facility] [place] Comment on above: Dog bite of right brooks nd with infection, initial encounter (Primary Dx) Start: 10-24-2022 End: 10-24-2022 Emergency department patient visit [facility] Start: 10-24-2022 End: 10-24-2022 Emergency department patient visit Elizabeth Hernadez MD Work Phone: [facility] Start: 10-16-2022 ambulatory [facility] Start: 09-02-2022 End: 09-02-2022 ambulatory [facility] Start: 09-02-2022 End: 09-02-2022 Office outpatient visit 15 minutes Jasvir Vilchis CNP Work Phone: [facility] [place] Comment on above: Sinusitis, unspecifi ed chronicity, unspecified location (Primary Dx); Acute conjunctivitis of both eyes, unspecified acute conjunctivitis type Start: 08-30-2022 End: 08-30-2022 ambulatory JASVIR PAZ [facility] Start: 08-30-2022 End: 08-30-2022 Office outpatient visit 15 minutes Jasvir Vilchis CNP Work Phone: [facility] [place] Comment on above: Viral URI (Primary D x) Start: 04-21-2022 End: 04-21-2022 Emergency department patient visit [facility] Start: 04-21-2022 End: 04-21-2022 Emergency department patient visit Raheem Archuleta MD Work Phone: [facility] Start: 04-20-2022 End: 04-20-2022 ambulatory CHARLEY PASTRANA [facility] Start: 04-05-2022 ambulatory [facility] Start: 03-02-2022 End: 03-02-2022 Office outpatient visit 25 minutes Mariana Miranda TRACK RIDER-MACHINE STAMPER Work Phone: [employer] [facility] Comment on above: Low testosterone in male (Primary Dx); Acute bacterial conjunctivitis of right eye Start: 01-08-2022 End: 01-08-2022 Office outpatient visit 15 minutes Mariana Miranda TRACK RIDER-MACHINE STAMPER Work Phone: [employer] [facility] Comment on above: Erectile dysfunction , unspecified erectile dysfunction type (Primary Dx); Gastroesophageal reflux disease without esophagitis; Environmental and seasonal allergies Start: 01-04-2022 End: 01-04-2022 Office consultation new/estab patient 60 min Jennifer Marrufo DO Work Phone: Pre-Procedure Evaluation and Assessment [facility] Comment on above: Preop exam for inter nal medicine (Primary Dx); Polycystic kidney disease; -donor 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/25/2016; Immunosuppression; S/P laparoscopic sleeve gastrectomy; BPH with obstruction/lower urinary tract symptoms Start: 01-04-2022 End: 01-04-2022 Patient encounter status Jennifer Stanley Marrufo DO Work Phone: Pre-Procedure Evaluation and Assessment [facility] Start: 11-30-2021 End: 11-30-2021 Office outpatient new 45 minutes Karon Howard MD Work Phone: [facility]rological [facility] at [facility] Comment on above: Polycystic kidney di sease (Primary Dx) Start: 10-26-2021 End: 10-26-2021 Office outpatient new 45 minutes Suzie Giraldo MD, PhD Work Phone: [facility] Comment on above: Kidney replaced by t ransplant (Primary Dx); Long-term use of immunosuppressant medication; Aftercare following organ transplant; Abnormal blood chemistry; Immunosuppressed status; High risk medication use; Other general symptoms and signs Start: 10-12-2021 End: 10-12-2021 Subsequent hospital visit by physician Mariana Miranda TRACK RIDER-MACHINE STAMPER Work Phone: [facility] Comment on above: Arrived Start: 10-09-2021 End: 10-09-2021 Office outpatient visit 25 minutes Mariana Miranda TRACK RIDER-MACHINE STAMPER Work Phone: [facility] Comment on above: Polycystic kidney di sease (Primary Dx); Acute bilateral low back pain without sciatica; Erectile dysfunction, unspecified erectile dysfunction type; -donor 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/25/2016; Lack of sexual desire Start: 09-18-2021 End: 09-18-2021 Office outpatient visit 15 minutes Andrew Angel Amos TRACK RIDER-MACHINE STAMPER Work Phone: [facility] Comment on above: Kidney replaced by t ransplant (Primary Dx); Abnormal blood chemistry; Immunosuppressed status; Aftercare following organ transplant; High risk medication use Start: 04-02-2019 End: 07-07-2019 Patient encounter status Andrew [place] TRACK RIDER-MACHINE STAMPER Work Phone: [facility] Start: 04-02-2019 End: 07-07-2019 Preprocedural examination done Andrew Amos TRACK RIDER-MACHINE STAMPER Work Phone: [facility] Start: 08-06-2018 End: 08-06-2018 Patient encounter procedure Mariana Wayne Nirajterrell Facility:[facility] Start: 06-18-2018 Patient encounter procedure [facility] Start: 05-27-2018 End: 05-27-2018 Patient encounter procedure Jorge Ireland Work Phone: [facility] Comment on above: Arrived Start: 05-20-2018 End: 05-20-2018 Patient encounter Maggi Mcdaniels [facility] Start: 05-15-2018 Patient encounter procedure [facility] Start: 05-15-2018 End: 05-15-2018 Office outpatient visit 25 minutes Jorge Nirav Work Phone: [facility] Comment on above: Osteoarthritis of ri ght knee, unspecified osteoarthritis type (Primary Dx); Chronic pain of right knee Start: 05-15-2018 End: 05-15-2018 Patient encounter procedure Jorge Nirav Work Phone: [facility] Start: 01-29-2018 Patient encounter procedure TUCKER GOLDMAN [facility] Start: 01-22-2018 Patient encounter procedure ROSY Cid [facility] Start: 01-15-2018 Patient encounter procedure ROSY Cid [facility] Start: 01-28-2017 End: 01-29-2017 [facility] Start: 01-21-2017 End: 01-22-2017 [facility] Start: 01-14-2017 End: 01-15-2017 Ambulatory PROVIDER UNKNOWN [facility] Start: 01-07-2017 End: 01-08-2017 Ambulatory PROVIDER UNKNOWN [facility] Start: 12-31-2016 End: 01-01-2017 Ambulatory PROVIDER UNKNOWN [facility] Procedures Date Procedure Procedure Detail Performing Clinician Start: 2023 INTERVENTIONAL UPPER ENDOSCOPY Caty Penn TRACK RIDER-MACHINE STAMPER Work Phone: Start: 03-10-2023 End: 03-10-2023 Radex ankle complete minimum 3 views Jackson Shaffer MD Work Phone: Start: 10-16-2022 Lipid 1996 panel - Serum or Plasma Elizabeth Hernadez MD Work Phone: Start: 01-04-2022 Antibody screen Jennifer Marrufo DO Work Phone: Start: 01-04-2022 Blood typing serologic abo Jennifer R Skin ner DO Work Phone: Start: 01-04-2022 PSA screening Charley Mccracken MD, P hD Work Phone: Start: 10-12-2021 Radex spine lumbosacral minimum 4 views Mariana A Eduardubachik TRACK RIDER-MACHINE STAMPER Work Phone: Start: 10-12-2021 Us retroperitoneal real time w/image complete Mariana A Trubachik TRACK RIDER-MACHINE STAMPER Work Phone: Start: 10-09-2021 Urnls dip stick/tablet rgnt auto w/o microscopy Mariana A Trubachik TRACK RIDER-MACHINE STAMPER Work Phone: Start: 09-25-2021 Lipid 1996 panel - Serum or Plasma Mariana Trubachik TRACK RIDER-MACHINE STAMPER Work Phone: Start: 05-01-2021 Lipid 1996 panel - Serum or Plasma Andrew Triindad TRACK RIDER-MACHINE STAMPER Work Phone: Start: 08-12-2019 History of renal transplant History of renal transplant Andrew Trinidad TRACK RIDER-MACHINE STAMPER Work Phone: Start: 06-18-2018 Follow-up visit Follow-up JORGE IRELAND Start: 05-27-2018 End: 05-27-2018 CBC, PLATELETS PANEL, MANUAL ENTER Other Other Start: 05-27-2018 End: 05-27-2018 NA,K,CL,CO2,BUN,CREA,GLUC, MANUAL ENTER Other Other Start: 05-27-2018 End: 05-27-2018 MRI of knee Jorge Ireland Work Phone: Start: 04-08-2018 Lipid 1996 panel - Serum or Plasma Jorge Ireland Start: 09-25-2016 History of renal transplant -donor 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/25/2016 Andrew Amos TRACK RIDER-MACHINE STAMPER Work Phone: History of renal transplant Kidney replaced by transplant Andrew Angel Amos TRACK RIDER-MACHINE STAMPER Work Phone: History of renal transplant -donor 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/25/2016 Mariana Wayne Janet TRACK RIDER-MACHINE STAMPER Work Phone: History of renal transplant -donor 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/25/2016 Mariana Wayne Janet TRACK RIDER-MACHINE STAMPER Work Phone: History of renal transplant Kidney replaced by transplant Suzie Giraldo MD, PhD Work Phone: History of renal transplant -donor 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/25/2016 Jennifer Marrufo DO Work Phone: Plan of Treatment Date Care Activity Detail Author Start: 10-17-2027 Lipid panel LIPID SCREENING [facility] Start: 09-25-2026 Fasting lipid profile LIPID SCREENING [facility] Start: 09-25-2026 Lipid panel LIPID SCREENING [facility] Start: 07-10-2026 PNEUMOCOCCAL VACCINE SERIES (3 - PPSV23 if available, else PCV20) PNEUMOCOCCAL VACCINE SERIES (3 - PPSV23 if available, else PCV20) [facility] Start: 07-10-2026 PNEUMOCOCCAL VACCINE SERIES (3 - PPSV23 or PCV20) PNEUMOCOCCAL VACCINE SERIES (3 - PPSV23 or PCV20) [facility] Start: 07-10-2026 PNEUMOCOCCAL VACCINE SERIES (3 of 3 - PPSV23 or PCV20) PNEUMOCOCCAL VACCINE SERIES (3 of 3 - PPSV23 or PCV20) [facility] Start: 07-10-2026 PNEUMOCOCCAL VACCINE SERIES (3 of 4 - PPSV23) PNEUMOCOCCAL VACCINE SERIES (3 of 4 - PPSV23) [facility] Start: 07-10-2026 Pneumococcal Vaccine: Ped or At-Risk (3 - PPSV23 if available, else PCV20) Pneumococcal Vaccine: Ped or At-Risk (3 - PPSV23 if available, else PCV20) [facility] Start: 05-01-2026 Fasting lipid profile LIPID SCREENING [facility] Start: 01-04-2026 Tetanus vaccination [facility] Start: 06-02-2024 End: 06-02-2024 Patient encounter procedure 06/02/2024 1:30 PM EST Office Visit [facility] [address] [place], [place] [id number] Aliza Davis MD [address] [place], [place] [phone] [facility] Start: 05-26-2024 End: 05-26-2024 Patient encounter procedure 05/26/2024 11:15 AM EST Office Visit [facility] [address] [place], [place] [id number] Aliza Davis MD [address] [place], [place] [id number] [facility] Start: 04-16-2024 Prostate specific antigen measurement PROSTATE CANCER SCREENING DISCUSSION [facility] Start: 04-16-2024 Screening for malignant neoplasm of colon COLORECTAL CANCER SCREENING DISCUSSION [facility] Start: 12-31-2023 End: 12-31-2023 Telemedicine consultation with patient 12/31/2023 1:30 PM EDT Telemedicine Bariatric Surgery [facility] [address] [place] [address] Caty Penn, TRACK RIDER-MACHINE STAMPER [address] [place] [address] Bariatric Surgery [facility] Start: 10-01-2023 End: 09-29-2024 Overnight pulse oximetry IN PLACE HOME SLEEP STUDY IN - OFFICE PERFORMED Routine S/P laparoscopic sleeve gastrectomy History of obstructive sleep apnea Expected: 10/01/2023, Expires: 09/29/2024 [facility] Comment on above: Expected: 10/01/2023, Expires: Start: 09-30-2023 End: 09-29-2024 NICOTINE AND METABOLITES,SERUM [facility] Comment on above: Expected: 09/30/2023, Expires: Start: 09-30-2023 End: 09-30-2024 VITAMIN A [facility] Comment on above: Expected: 09/30/2023, Expires: Start: 09-30-2023 End: 09-30-2024 VITAMIN B1 [facility] Comment on above: Expected: 09/30/2023, Expires: Start: 07-08-2023 COVID-19 VACCINE ( season) COVID-19 VACCINE ( season) [facility] Start: 06-26-2023 COVID-19 VACCINE ( season) COVID-19 VACCINE ( season) [facility] Comment on above: [facility]poned from 03/01/2023 (patient prefe rence) Start: 06-26-2023 Zoster vaccine hzv live for subcutaneous use ZOSTER (SHINGLES) VACCINE (1 of 2) [facility] Comment on above: Postponed from 1986 (patient prefe rence) Start: 2023 End: 2023 Patient encounter procedure 2023 9:30 AM EST Appointment [facility] [address] [facility] [address] [place] [address] Schuyler Sparks MD [address] [place] [phone] [facility] Start: 05-28-2023 End: 05-28-2023 Patient encounter procedure 05/28/2023 11:00 AM EST Office Visit [facility] [address] [place], [place] [id number] Aliza Davis MD [address] [place], [place] [phone] [facility] Start: 05-10-2023 End: 05-10-2023 ambulatory 05/10/2023 9:20 AM EST Rehab Services Visit [facility] [place] [phone] Ilene Diego, DPM [address] [phone] Landen Vallejo PTA [facility] [place] Start: 05-08-2023 End: 05-08-2023 ambulatory 05/08/2023 9:20 AM EST Rehab Services Visit [facility] [place] [phone] Ilene Diego, DPM [address] [place] [address] Landen Vallejo PTA [facility] [place] Start: 05-06-2023 End: 05-06-2023 ambulatory 05/06/2023 9:20 AM EST Rehab Services Visit [facility] [place] [address] [place] [phone] Ilene Diego, DPM [address] [place] [address] Landen Vallejo PTA [facility] [place] Start: 05-03-2023 End: 05-03-2023 Patient encounter procedure 05/03/2023 1:00 PM EDT Appointment [facility] [address] [facility] [address] [place] [phone] Nahomy Santos MD [address] [place] [phone] [facility] Start: 04-19-2023 End: 04-19-2023 Patient encounter procedure 04/19/2023 10:30 AM EDT Office Visit [facility] [address] [place] [address] Ilene Diego, DPTomas [address] [place] [address] [facility] Start: 04-08-2023 Fasting lipid profile LIPID SCREENING [facility] Work Phone: Start: 03-26-2023 End: 03-26-2023 Telemedicine consultation with patient 03/26/2023 3:00 PM EDT Telemedicine Bariatric Surgery [facility] [address] [place] [phone] Caty Penn, TRACK RIDER-MACHINE STAMPER [address] [place] [phone] Bariatric Surgery [facility] Start: 03-01-2023 Influenza vaccination [facility] Start: 01-07-2023 End: 01-07-2023 Telemedicine consultation with patient 01/07/2023 12:30 PM EDT Telemedicine Bariatric Surgery [facility] [address] [place] [address] Caty Penn, TRACK RIDER-MACHINE STAMPER [address] [place], [place] [id number] Bariatric Surgery [facility] Start: 01-04-2023 Prostate specific antigen measurement PROSTATE CANCER SCREENING DISCUSSION [facility] Start: 11-30-2022 End: 11-30-2022 Patient encounter procedure 11/30/2022 Office Visit Dermatology Aliza Davis MD [address] [place], [place] [id number] [facility] Start: 11-06-2022 End: 11-06-2022 Patient encounter procedure 11/06/2022 Office Visit Transplant Surgery Payal Mahoney, TRACK RIDER-MACHINE STAMPER [address] [place] [address] [facility] [place] [facility] Start: 11-05-2022 End: 11-05-2022 Telemedicine consultation with patient 11/05/2022 Telemedicine General Surgery Caty Penn, TRACK RIDER-MACHINE STAMPER [address] [place] [address] Bariatric Surgery [facility] Start: 09-20-2022 End: 09-20-2022 Patient encounter procedure 09/20/2022 Office Visit Transplant Surgery Colin Hooper MBBS [address] [place] [address] [facility] Transplant [facility] Start: 07-17-2022 End: 07-17-2022 Patient encounter procedure 07/17/2022 Office Visit Family Medicine Mariana Miranda, TRACK RIDER-MACHINE STAMPER [address] [place] [address] [facility] Start: 05-31-2022 End: 05-31-2022 Patient encounter procedure [facility] Start: 03-30-2022 End: 03-02-2023 FREE TESTOSTERONE FREE TESTOSTERONE Lab Routine Low testosterone in male Expected: 03/30/2022, Expires: 03/02/2023 [facility] Comment on above: Expected: 03/30/2022, Expires: 3 Start: 03-30-2022 End: 03-02-2023 Testosterone [Mass/volume] in Serum or Plasma TESTOSTERONE Lab Routine Low testosterone in male Expected: 03/30/2022, Expires: 03/02/2023 [facility] Comment on above: Expected: 03/30/2022, Expires: 3 Start: 03-01-2022 Influenza vaccination [facility] Start: 02-08-2022 End: 02-08-2022 Patient encounter procedure 02/08/2022 Office Visit Urology Charley Mccracken MD, PhD [address] [place] [id number] Division of Urological Surgery at [facility] Start: 01-23-2022 End: 01-23-2022 Evaluation and management of inpatient CCCT [facility] Comment on above: Polycystic kidney disease NEPHRECTOMY OPEN Start: 01-23-2022 End: 01-23-2022 Nephrectomy w/prtl ureterect opn rib rescj compl NEPHRECTOMY OPEN Polycystic kidney disease 01/23/2022 7:15 AM EDT [facility] Start: 01-08-2022 End: 01-08-2022 Patient encounter procedure 01/08/2022 Office Visit Family Medicine Mariana Miranda, TRACK RIDER-MACHINE STAMPER [address] [place] [address] [facility] Start: 12-12-2021 Colonoscopy COLORECTAL CANCER SCREENING DISCUSSION [facility] Start: 12-12-2021 Prostate specific antigen measurement PROSTATE CANCER SCREENING DISCUSSION [facility] Start: 12-12-2021 Screening for malignant neoplasm of colon COLORECTAL CANCER SCREENING DISCUSSION [facility] Start: 12-08-2021 End: 12-08-2021 Admission to same day surgery center 12/08/2021 Surgery Endoscopy Saira Moore MD [address] [address] EGD DIAGNOSTIC [facility] Comment on above: EGD DIAGNOSTIC Start: 12-08-2021 End: 12-08-2021 Esophagogastroduodenoscopy transoral diagnostic EGD DIAGNOSTIC Gastroesophageal reflux disease without esophagitis S/P laparoscopic sleeve gastrectomy 12/08/2021 9:30 AM EDT [facility] Start: 12-08-2021 Subsequent hospital visit by physician 12/08/2021 Hospital Encounter Endoscopy Saira Moore MD [address] [address] Gastroesophageal reflux disease without esophagitis [facility] Comment on above: Gastroesophageal reflux disease without esophagitis Start: 11-30-2021 End: 11-30-2021 Patient encounter procedure 11/30/2021 Office Visit Urology Karon Howard MD [address] [place] [address] Division of Urological Surgery at [facility] Start: 10-09-2021 End: 10-09-2022 FREE TESTOSTERONE FREE TESTOSTERONE Lab Routine Erectile dysfunction, unspecified erectile dysfunction type Lack of sexual desire Expected: 10/09/2021, Expires: 10/09/2022 [facility] Comment on above: Expected: 10/09/2021, Expires: 3 Start: 10-09-2021 End: 10-09-2022 Testosterone [Mass/volume] in Serum or Plasma TESTOSTERONE Lab Routine Erectile dysfunction, unspecified erectile dysfunction type Lack of sexual desire Expected: 10/09/2021, Expires: 10/09/2022 [facility] Comment on above: Expected: 10/09/2021, Expires: 3 Start: 10-09-2021 End: 10-09-2022 Kidney US RENAL Imaging Routine Polycystic kidney disease -donor 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/25/2016 Expected: 10/09/2021, Expires: 10/09/2022 [facility] Comment on above: Expected: 10/09/2021, Expires: 3 Start: 10-09-2021 End: 10-09-2022 XR Spine Lumbar and Sacrum 5 Views XR SPINE LUMBOSACRAL 5 VIEWS Imaging Routine Acute bilateral low back pain without sciatica Expected: 10/09/2021, Expires: 10/09/2022 [facility] Comment on above: Expected: 10/09/2021, Expires: 3 Start: 09-12-2021 COVID-19 VACCINE (3 - Booster for Jenna series) COVID-19 VACCINE (3 - Booster for Jenna series) [facility] Start: 09-12-2021 COVID-19 VACCINE (3 - Jenna risk series) COVID-19 VACCINE (3 - Jenna risk series) [facility] Start: 10-08-2020 COVID-19 VACCINE (2 - Jenna risk 3-dose series) COVID-19 VACCINE (2 - Jenna risk 3-dose series) [facility] Start: 10-08-2020 COVID-19 VACCINE (2 - Jenna risk series) COVID-19 VACCINE (2 - Jenna risk series) [facility] Start: 09-04-2018 End: 09-04-2018 Ambulatory 09/04/2018 Office Visit Transplant Surgery Colin Hooper, CORNEL [address] [place] [address] [facility] Start: 08-01-2018 End: 08-01-2018 Ambulatory 08/01/2018 Office Visit Orthopaedics Tucker Goldman, TRACK RIDER-MACHINE STAMPER [address] [place] [address] [facility] Start: 07-22-2018 Prostate specific antigen measurement PROSTATE CANCER SCREENING DISCUSSION [facility] Work Phone: Start: 05-27-2018 End: 05-27-2018 Ambulatory 05/27/2018 Appointment Magnetic Resonance Imaging Jorge Ireland MD [address] [id number] [phone] [facility] Start: 05-15-2018 Ambulatory 05/15/2018 Procedure Pass Orthopaedics [facility] Start: 03-01-2018 Influenza vaccination INFLUENZA VACCINE (#1) [facility] Work Phone: Start: 2017 Colonoscopy COLON CANCER SCREENING DISCUSSION [facility] Work Phone: Start: 2017 Protein mass conc COLON CANCER SCREENING DISCUSSION [facility] Work Phone: Start: 2017 Screening for malignant neoplasm of colon Flexible sigmoidoscopy [facility] Start: 2017 Zoster vaccine hzv live for subcutaneous use ZOSTER (SHINGLES) VACCINE (1 of 2) [facility] Start: 1986 Administration of herpes zoster vaccine Zoster Vaccines (1 of 2) [facility] Start: 1986 Hepatitis B vaccination HEP B VACCINE (1 of 3 - 19+ 3-dose series) [facility] Start: 1986 Zoster vaccine hzv live for subcutaneous use ZOSTER (SHINGLES) VACCINE (1 of 2) [facility] Start: 1985 Hepatitis C screening Hepatitis C Screening [facility] Start: 1982 HIV screening HIV Screening [facility] Start: 1980 HIV screening HIV SCREENING DISCUSSION [facility] Work Phone: Start: 1979 Depression screening using PHQ-9 (Patient Health Questionnaire 9) score Depression Screening (PHQ-2/9) [facility] Start: 1970 History and physical examination, annual for health maintenance Wellness Visit [facility] Start: 1967 Prostate specific antigen measurement PSA Level [facility] Start: 1967 Screening for malignant neoplasm of colon [facility] Ecg routine ecg w/le ast 12 lds w/i&r IN ELECTROCARDIOGRAM, COMPLETE IN - OFFICE PERFORMED Routine Preop exam for internal medicine Polycystic kidney disease -donor 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/25/2016 Immunosuppression S/P laparoscopic sleeve gastrectomy Ordered: 01/04/2022 [facility] Comment on above: Ordered: 01/04/2022 Esophagogastroduoden oscopy transoral diagnostic EGD DIAGNOSTIC Gastroesophageal reflux disease without esophagitis S/P laparoscopic sleeve gastrectomy [facility] MRI of knee MRI KNEE RIGHT W ITHOUT CONTRAST Routine Chronic pain of right knee Osteoarthritis of right knee, unspecified osteoarthritis type Ordered: 05/15/2018 [facility] Work Phone: Comment on above: Ordered: 05/15/2018 Orthotics mgmt & tra ing initial enctr ea 15 mins IN ORTHOTICS MGMT & TRAINJ INITIAL ENCTR EA 15 MINS IN - OFFICE PERFORMED Routine Right foot pain Sprain of right ankle, unspecified ligament, initial encounter Ordered: 04/19/2023 [facility] Comment on above: Ordered: 04/19/2023 Polysomnography SCHEDULE HOME SL EEP STUDY PFT Routine S/P laparoscopic sleeve gastrectomy History of obstructive sleep apnea Obstructive sleep apnea (adult) (pediatric) Ordered: 09/30/2023 [facility] Comment on above: Ordered: 09/30/2023 Radiography for bone length studies XR BONE LENGTH STUDY Routine Chronic pain of right knee 05/15/2018 3:[address] [facility] Work Phone: Radiologic examination of knee X R KNEE RIGHT 4+ VIEWS Routine Chronic pain of right knee 05/15/2018 3:03 PM EST [facility] Work Phone: Shvg skin lesion 1 t runk/arm/leg diam 0.6-1.0 cm IN SHAV SKIN LES 0.6-1CM TRUNK,ARM,LEG IN Charge Routine Neoplasm of uncertain behavior of skin Ordered: 05/28/2023 [facility] Comment on above: Ordered: 05/28/2023 Standard ECG ECG ECG Routine S/P laparoscopic sleeve gastrectomy Vitamin D deficiency Iron deficiency Medication management Ordered: 09/30/2023 [facility] Comment on above: Ordered: 09/30/2023 SURG PATH REQUEST SURG PATH REQU EST Surg Path Routine Neoplasm of uncertain behavior of skin 05/28/2023 2:42 PM EST [facility] XR Foot - right 3 Views XR FOOT RIGHT 3 VIEWS Imaging Routine Right foot pain 04/19/2023 10:49 AM EDT [facility] Work Phone: Immunizations Immunization Date Immunization Notes Care Provider Antonio guerrero 07-10-2021 pneumococcal polysaccharide vaccine, 23 valent Andrew [employer]Layer TRACK RIDER-MACHINE STAMPER Work Phone: [facility] 04-18-2021 influenza virus vacc ine, unspecified formulation Jennifer Marrufo DO Work Phone: [facility] 09-10-2020 COVID-19 vaccine, AD 26, Jenna 0.5 ML i3 membrane TRACK RIDER-MACHINE STAMPER Work Phone: [facility] 09-12-2018 influenza, injectabl e, quadrivalent, preservative free i3 membrane TRACK RIDER-MACHINE STAMPER Work Phone: [facility] 01-05-2016 tetanus and diphther ia toxoids, adsorbed, preservative free, for adult use (2 Lf of tetanus toxoid and 2 Lf of diphtheria toxoid) [facility] Work Phone: 12-30-2015 pneumococcal conjuga te vaccine, 13 valent [facility] Work Phone: Payers Date Payer Category Payer Medicare [id number] 2018 Self-pay 2013 Medicare [id number] 2013 Medicare [id number] 2013 Medicare [id number] 1967 Unknown [id number] 2.16. 840.1.675495.3.579.2.903 1967 Unknown [id number] 2.16. 840.1.282291.3.579.2.903 1967 Unknown [id number] 2.16. 840.1.963849.3.579.2.903 1967 Unknown [id number] 2.16. 840.1.756754.3.579.2.903 1967 Unknown [id number] 2.16.8 40.1.528215.3.579.2.983 1967 Unknown [id number] 2.16.8 40.1.530683.3.579.2.983 1967 Unknown [id number] 2.16.8 40.1.530653.3.579.2.983 1967 Unknown [id number] 2.16.8 40.1.290126.3.579.2.983 1967 Unknown [id number] 2.16.8 40.1.963666.3.579.2.983 1967 Unknown [id number] 2.16.8 40.1.516806.3.579.2.983 1967 Unknown [id number] 2.16.8 40.1.499134.3.579.2.983 1967 Unknown [id number] 2.16.8 40.1.116993.3.579.2.983 1967 Unknown [id number] 2.16.8 40.1.574958.3.579.2.983 1967 Unknown [id number] 2.16.8 40.1.618868.3.579.2.983 1967 Unknown [id number] 2.16.8 40.1.720880.3.579.2.983 1967 Unknown [id number] 2.16.8 40.1.504619.3.579.2.983 1967 Unknown [id number] 2.16.8 40.1.283783.3.579.2.983 1967 Unknown [id number] 2.16. 840.1.267461.3.579.2.594 1967 Unknown [id number] 2.16. 840.1.524394.3.579.2.594 1967 Unknown [id number] 2.16. 840.1.494157.3.579.2.594 1967 Unknown [id number] 2.16. 840.1.383144.3.579.2.594 1967 Unknown [id number] 2.16. 840.1.699197.3.579.2.594 1967 Unknown [id number] 2.16. 840.1.789710.3.579.2.594 1967 Unknown [id number] 2.16. 840.1.598637.3.579.2.594 1967 Unknown [id number] 2.16. 840.1.622925.3.579.2.594 1967 Unknown [id number] 2.16. 840.1.391389.3.579.2.594 Unknown [id number] 2.16.840 .1.838895.3.579.2.531 Unknown [id number] Social History Date Type Detail Facility Start: 05-15-2018 End: 09-30-2023 Tobacco smoking status NHIS Former smoker [facility] Work Phone: Start: 07-01-1982 End: 07-01-1999 History of tobacco use Current smoker [facility] Work Phone: Start: 07-01-1982 End: 07-01-1999 History of tobacco use Cigarette Smoker [facility] Work Phone: Start: 05-15-2018 End: 09-30-2023 Cigarettes smoked current (pack per day) - Reported [facility] Work Phone: Start: 1965 Sex Assigned At Not on file [facility] Work Phone: Start: 11-30-2016 End: 09-30-2023 Tobacco use and exposure Smokeless tobacco non-user [facility] Start: 08-17-2021 End: 10-01-2023 Alcohol intake Current non-drinker of alcohol (finding) [facility] Start: 09-08-2021 End: 10-27-2022 Exposure to SARS-CoV-2 (event) Not sure [facility] End: 07-01-1999 History of tobacco use Pipe Smoker [facility] Start: 01-21-2022 History SDOH Alcohol Comment none [facility] Start: 08-30-2022 End: 10-26-2022 Alcohol intake Ex-drinker (finding) [facility] Start: 09-02-2022 End: 09-30-2023 Tobacco use panel [facility] Adolescent depressio n screening assessment 0 [facility] Gender identity Identifies as ma le gender (finding) [facility] Start: 09-02-2018 Sexual orientation Heterosexual (fin ding) [facility] NEGATED: Highlighted rowStart: NINF History of tobacco use Passive smoker [facility] Medical Equipment Procedure Code Equipment Code Equipment Origin al Text Equipment Identifier Dates [id number] Uh [employer] Mesh Open Skirt [id number] Start: 05-09-2017 [id number] Uh [employer] Mesh Open Skirt [id number] Start: 05-09-2017 [id number] Uh [employer] Mesh Open Skirt [id number] Start: 05-09-2017 [id number] Uh [employer] Mesh Open Skirt [id number] Start: 05-09-2017 [id number] Uh [employer] Mesh Open Skirt [id number] Start: 05-09-2017 Mesh Marlex 10in X 14in - [id number] Start: 02-27-2019 [id number] Uh [employer] Mesh Open Skirt [id number] Comment on above: Description: [id number] Uh [employer] Mesh Open Skirt [id number] Start: 05-09-2017 Comment on above: Description: [id number] X Goals Date Patient Goal Desired Activity /State Personal health goal Comment on above: Formatting of this n ote might be different from the original. Short Term Goal The patient will demonstrate good adherence and understanding to recommended home exercise program for maintenance of functional gains Alf Goal Increase R ankle PF Strength to 4+ to 5/5 demonstrated by ability to perform at least 15 single leg heel raises to facilitate normalization of gait and stability during dynamic standing activities. Increase ankle PF AROM to 40 deg and DF to 10 deg to facilitate gait mechanics on all surfaces including negotiation of steps. Pt will have pain no greater than 2-3/10 in R ankle after 4-5 hours of accumulated standing throughout a day to improve tolerance for work and household activities. Clinical Notes 09-25-2016 to 09-30-2023 Hetal Willis RN - 09/30/2023 2:00 PM Lesli Penn APRN-TAMY - 09/30/2023 2:00 PM FRANCISCO Cary - 09/30/2023 2:00 PM Lisette Sánchez RN - 2023 11:20 AM ESTAttachments Note Date & Type Note Facility 09-30-2023 History of Present illness Narrative Presents for surgical weight management evaluation. Is interested in a revision. Psych eval has been completed. He was Negative for DEMI. NC is 18. Highest reported weight is 250# and lowest adult weight was 193#. He is currently following a meal plan of low carb high protein. Reports drinking 64 water daily. For exercise he is doing cardio and strength training 2-3 days per week for 60-90 minutes. New Patient Bariatric SURGERY Consult Visit. Nurse Assessment and Education ASSESSMENT: Presents for a surgical weight management evaluation. Stated the following, when asked to complete the sentence I want to have weight loss surgery because... 2. Viewed online/or attended in person information session [x] Yes [] No, Provided Website to review: [email or web address] 3. Is interested in the: [] Sleeve [] RNY [x] Revision [] Lap Band [] Other [] Unknown/Unsure 4. Psych evaluation (a 2 hour visit) (First hour testing, 2nd hour psychologist evaluation) is: [] scheduled [x] completed [] Has ongoing [facility] Pyschologist follow up appts scheduled [] has not been scheduled 5. Dietitian evaluation (a 1 hour visit) is: [] scheduled [x] completed [] Has ongoing CWM RD follow up appts scheduled [] has not been scheduled 6. [] Pt self reports is positive for DEMI Pt is using prescribed treatment device: [] CPAP [] BiPap [] Trilogy [] Pt has DEMI but no use of device was prescribed 7. Other DEMI related: Neck Circumference is__18 [x] Pt self reports is not positive for DEMI [] Patient is not using prescribed DEMI treatment device [] Pt has never tested for DEMI. [] Pt does not have a test that is current for DEMI. [] Pt has had a sleep medicine consult within the last year and continues in evaluation/workup 8. Never had weight surgery: Highest reported adult weight (between the ages of 18 and today) is . Lowest adult weight (never had bariatric surgery) was . 9. Prior history of wt loss surgery: Highest reported adult weight pre bariatric surgery: ___250# . Lowest adult post op bariatric surgery weight was: ___193# . 10. [] Patient is not currently following a formal meal plan that includes no snacking and no sweets. [x] Patient is currently following a formal meal plan that includes no snacking and no sweets. 11. Pt reports is currently drinking at least 64 oz of water daily. [x] Yes [] No 12. Pt is formally exercising outside of normal day to day activity [] No [x] Yes Exercise routine includes: cardio and strength training 2-3/week for 60-90 mins EDUCATION: Pre-visit Nurse Screening Assessment completed [x] Yes [] No DIRECTOR HOUSEKEEPING vs MD Visit General Visit Information: Reinforced instruction on the following as needed: 1. Pt instructed to consider self as an applicant for surgery. Pt will become a candidate for surgery when all initial Providers (DIRECTOR HOUSEKEEPING/RD/Psychologist) have approved the patient to move forward. 2. Notified that all bariatric surgeries are elective. Instructed that will see either rn medical surgical or TRACK RIDER-TAMY today. Currently, RD and Psychologist may both be completed remotely for initial evaluation of surgical requirements if not already completed. 3. Will see Surgeon MD at a pre-operative visit after completing surgery requirements. 4. Expect that a Financial Plant And Instrument Engineer will be in contact within the next 2 weeks and will assist with insurance requirements and programming navigation. The coordinator will follow the pt from the point of contact through surgical approval and scheduling. 5. Testing plan: If a Lab draw is requested today, it will be completed in the [facility] lab. An EKG will be done in the [facility] here on site. Done if none has been completed within the last 6 months, or if otherwise indicated. Call Center Instruction: 1. There are no direct department calls. When calling the office ([phone]), the Call Center staff will notify the appropriate parties. 2. Encouraged the use of MY Chart and assisted with set up as needed. 3. Instructed and demonstrated as needed: sign up for [facility] [phone] text message appointment reminders as applicable. 4. Reminded that the clinic office is open for calls M-F between 8:00am and 3:30pm. There is a Bariatric Surgery resident professional programmer analyst after this at [phone] Pt has 24 hour 7 days per week access to assistance. Assigned Clinic RN Instruction: An assigned clinic nurse will follow pt care along with today's Provider as of this date and throughout pre and postoperative care. A nurse is generally the initial person to receive the MY Chart and Call Center messages for the physicians and DIRECTOR HOUSEKEEPING's. These messages are triaged and answered by the nurse and forwarded on to a Provider as needed. Lab review process 1. Pt may see testing results in [facility]. In general, pts will receive a call, [facility] message, or letter from the Provider after all testing orders from today are resulted. 2. Instructed regarding subsequent routine labs which are done at 6 months and annually. Pt may contact the office 2 weeks before an appt to have their lab orders for the future appointment placed so that results can be reviewed at the point of care, rather than retrospectively. Pts need to call with the name of the facility or Provider and a fax number to have the order placed. Language Preference [x] [place] Leonean [] Other: Badge Number of Dispersion Mixer: Orientation [x] Oriented to room and space as needed Stated understanding of educational instructions provided today. Additional questions answered. [x] Yes [] No If no, additional questions answered: 1. 2. 3. [facility] Surgical Weight Management Evaluation Note CC: New Patient (Presents for surgical weight management evaluation. Is interested in a revision. Psych eval has been completed. He was Negative for DEMI. NC is 18. Highest reported weight is 250# and lowest adult weight was 193#. He is currently following a meal plan of low carb high protein. Reports drinking 64 water daily. For exercise he is doing cardio and strength training 2-3 days per week for 60-90 minutes.) HPI: Camilo presents to clinic today to discuss surgery for durable weight control and the problems that result from obesity. They have been provided with an opportunity to review, discuss, and sign our bariatric surgery patient agreement. PCP: Mariana Miranda Reviewed weight history, goals, desired surgery, occupation & post operative support Goal weight/Surgery goals: to resolve GERD/severe reflux; weight goal 180 - 185 lbs. Weight issues date back to: early adult years - after leaving the [employer] & they have tried the following to lose weight: bariatric surgery (sleeve). phentermine (Adipex/Lomaira) - limited in dosing due to kidney disease / s/p renal transplant; couldn't use top or Well due to renal fxn. 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 Social History Tobacco Use Smoking status: Former Current packs/day: 0.00 Average packs/day: 1 pack/day for 20.0 years (20.0 ttl pk-yrs) Types: Cigarettes Start date: 07/01/1982 Quit date: 07/01/1999 Years since quittin.2 Passive exposure: Never Smokeless tobacco: Never Substance Use Topics Alcohol use: No Comment: none I have reviewed the patient's medication list, medical, surgical, & family history as applicable & emphasized the risks of tobacco and alcohol use after surgery. If applicable, we've discussed the importance of contraception. Relevant Past anesthesia/surgical/pain medication history: morphine equivalent: history DEMI has been off CPAP Review of Systems Gen: denies recent acute illness, fever or chills and denies fatigue; Notes pneumonia and was hospitalized in July. Now recovered. He is drinking > 64 oz fluids; is following a meal plan that includes no snacking and no sweets; eating 3 meals and 2-3 snacks; is not tracking intake. HEENT: Negative for blurry vision, visual field changes, history of glaucoma, hearing loss, frequent nosebleeds, dysphagia , and odynophagia; Advocates: Rx for glasses/contacts CV: Negative for chest pain or pressure , palpitations, and hyperlipidemia requiring medication ; Advocates: HTN , peripheral edema, and notes swelling chronically since dialysis treatments ; losartan is maintenance post transplant. Resp: Negative for chronic cough and shortness of breath; Advocates: Singulair and zyrtec for allergies. +DEMI but no longer symptomatic and not using CPAP GI: Negative for abdominal pain, nausea , vomiting, diarrhea, constipation, flushing, and dumping; Advocates: GERD: severe (heartburn/regurgitation/atypical GERD) > 50% of days; taking Protonix BID : Negative for dysuria, hematuria, urinary frequency, urinary incontinence, and history of kidney stones; Advocates: kidney disease / s/p renal transplant M/S: Negative for back pain and joint pain; Advocates: n/a Neur: Negative for dizziness, frequent headache, numbness/tingling , and history of seizures ; Advocates: n/a Psych: Negative for depression and anxiety; Advocates: n/a Lymph/Heme: Negative for history of clotting disorder and history of bleeding disorder; Advocates: using ASA - due to transplant. Endocrine: Negative for thyroid disease and diabetes ; Negative for thyroid/MEC cancer; Advocates: n/a Skin: Negative for non-healing wounds, skin cancer, eczema, and psoriasis; Advocates: n/a Activity/Body Movement: Can climb 1 flight stairs without stopping 4.0 Mets; doing physical activity outside of ADLs 2-3 days per week Degree of dyspnea 1 no dyspnea except with strenuous exercise - other than while ill with pneumonia Functional status: Independent with daily activities. Pertinent Diagnostic Testing: EKG in past year: no Stress Test: yes - pre transplant Sleep study: none since bariatric surgery, will updated EGD: yes; Screening Colonoscopy: due Baseline bone density test: no (Risks to consider: age (postmenopause, >50 y.o.), previous fracture, steroids, smoking, heavy alcohol use, RA) Sleep related / DEMI screening Sleep history: sleep is restorative, getting at least 8 hours a night; 1. Do you Snore? No 2. Do you often feel Tired or sleepy? No 3. Have you been Observed gasping/choking while asleep? No 4. Do you have or are you being treated for high blood Pressure? On losartan due to transplant history 5. BMI - greater than 35kg/m2? Body mass index is 35.91 kg/m . 6. Age - over 50 years old? 58 y.o. 7. Neck Circumference: >16in. for women and >17in. for men? Yes 18 in 8. Gender - Male? male STOP-BANG score of 3 or more Y = increased risk for sleep apnea; 5 or more: HIGH risk of sleep apnea; Reference: Noble F, Ran R, Fred P, et al. High STOP-Bang score indicates a high probability of obstructive sleep apnoea. Br J Anaesth 2012; 108:768. This patient's DEMI risk score: 10/06 Objective: BP 152/77 (BP Location: Left arm, BP Position: Sitting) Pulse 63 Temp 97.8 F (36.6 C) (Temporal) Resp 16 Ht 1.702 m (5' 7 ) Wt 104 kg (229 lb 4.8 oz) SpO2 98% Comment: roomair BMI 35.91 kg/m Smoking Status Former Body mass index is 35.91 kg/m . 104 kg (229 lb 4.8 oz) BPs at home in 120s / 70s Constitutional: in no apparent distress, well developed and well nourished, in no respiratory distress and acyanotic, and oriented times 3; Grooming: appropriate HEENT: Head: Normocephalic. Eyes: Pupils are equal and round and reactive to light and accomodation. Neck is supple. No carotid bruits heard. No obvious thyromegaly. Mouth/nose appearance grossly normal. Cardiovascular: Normal rate, S1 and S2, No murmur heard. Cardiac sounds distant due to body habitus. Peripheral pulses normal. Trace edema to L >R LE Pulmonary/Chest: Effort normal and no respiratory distress. Breath sounds normal. No wheezes. No rales. Abdominal: Visible central adiposity without visible distension or mass. Musculoskeletal: Ambulates without assistance. Grossly normal range of motion. Exhibits Negative edema. Neurological: they are alert and oriented without focal abnormalities. Skin: Skin is warm, dry and intact. No cyanosis. Clubbing of nails: Absent. Psychiatric: Affect appropriate for situation. Assessment: Zoie Heath is requesting consideration for is interested in gastro-jejunostomy to treat their obesity with common related conditions including: DEMI: needs sleep eval/study, Hypertension: taking med(s), and GERD: taking med(s). They meet NIH criteria for surgery and were informed that surgery is elective. We discussed the operation and required lifestyle changes, how surgery is a tool, the need for vitamin and mineral supplementation, and results are not guaranteed. We discussed the plan of care and expectations after surgery. Additional counseling as noted below regarding tobacco, alcohol and/or drug use and contraception for female patients which was also included in the patient instructions from today's visit. Concerns: none. Pre-Bariatric Surgery Plan Developed 09/30/23 & shared with the patient (already complete if checked): [x] Dietitian evaluation has been completed and does not need follow up. [x] Psychological evaluation has been completed and does not need follow up. [] Risk for sleep apnea. High risk; sleep study ordered; if positive, needs record showing optimized DEMI care near completion of insurance and medical requirements. [] Will provide printed Labs: stool H pylori;. [] Labs: CBC/plt; CMP (including albumin,protein, calcium, chem 7 and LFTs); folate, serum; ferritin; iron/iron binding/transferrin; PTH intact; 25-OH vitamin D; vitamin B12; vitamin A; vitamin B1 (whole blood preferred) serum quant. cotinine/nicotine;. [x] Screening upper endoscopy (EGD) has been completed, is NOT recommended at this time. [x] EKG/ECG ordered. Reviewed in clinic, unchanged from prior. Sinus gorge. [x] Cardiac clearance is not indicated at this time and Pulmonary clearance is not indicated at this time. [] Additional notes / Preventive health recommended: colonoscopy [] 6 months of weight management program is required by our program for patients seeking revision. Programs include: Healthy Living, Living Well, Step It Up!, [employer], one-on-one appointments with PCP and dietitian. Has completed ~ 3 months weight management with me within the last year (October, November, December 2022), will check with PCP to see if she's able to see him for weight management follow up. [] Obesity surgery is contraindicated (not allowed) for patients with ongoing substance abuse problems (including chronic marijuana use or excessive alcohol use) within the previous year. Patients who have recently stopped occasional use of marijuana will need to be free of use, confirmed by testing, for 90 days prior to surgery. [] Insurance/Program Requirements per our Program Financial Plant And Instrument Engineer. All patients will be checked for nicotine/cotinine levels. If not tested via EGD with Bx, typically H pylori stool testing is needed. Note that prior to collecting the stool sample: patients must be off antibiotics for 4 weeks, PPIs (such as omeprazole) for 2 weeks, H2 blockers (such as Pepcid) for 5 days, antacids (such as TUMS) x 1 day. Goals before surgery: Patient is assessed to be a suitable candidate, psychiatrically stable (for at least a year), able to give informed consent. Clearance/support may be needed from behavioral health provider(s). Hemoglobin A1C <8% (controlled blood sugars) Surgery will be postponed for uncontrolled blood sugar, at surgeon's discretion. Tobacco free for 90 days minimum, confirmed by testing; pre-op cotinine test for all patients. Patients cannot use tobacco after bariatric surgery. Documented effectiveness of treatment for > 30 days for patients with meeting criteria for compliance and effectiveness. No weight gain; recommended weight loss of 5-10% for patients with a BMI > 60 Surgery will be postponed if no weight loss or if weight is gained, at surgeon's discretion. BP <140/90 We recommend that you do NOT take NSAIDs (non-steroidal anti-inflammatory medications) after bariatric surgery such as Ibuprofen, Aleve, Motrin, Advil or Aspirin. Try Tylenol based pain medication before your surgery to make sure that it will work for your pain. All patients who can get need to use effective contraception pre-operatively, cannot have surgery sooner than 12 months after a ; it is recommended to wait until 18 months after surgery to become . Alcohol and/or drug use after surgery can derail weight loss, can cause faster intoxication (even 1 drink could take you over the legal limit to drive) and there is a risk of addiction transfer. Tobacco use after bariatric surgery increases risk for stricture and ulcer. [facility]'s Bariatric Surgery website is here: [email or web address] Link to watch [facility] Bariatric Surgery info session is here: [email or web address] Link to watch Dr. Santos's interview with a patient is here: [email or web address] Phone numbers for scheduling [facility] [phone]. [facility] (pulmonary consult, sleep studies, sleep consult): [phone]. EGD [phone], option 2. Comprehensive Weight Management Nurse Practitioner, Dietitian, Psychologist or Seam Rubbing Machine Operator appointments: [phone]. REYES Massey, with surgeons Saira Moore, Maikel Frank, Schuyler Sparks, Danny Ireland, & Nahomy Santos ACTIVITY TIME Direct communication with the patient 40 minutes Other patient care activities related to this service including chart/data review, coordination of care, and/or preparation of documentation. 6 minutes Total time spent on this service. 46 minutes Disposition: please schedule a 30 min Epic video visit follow up with Caty Penn in next available appointment for for surgical follow up AND weight management and specifically pre-op weight management for revision 12 Lead ECG performed per provider's order, per policy. Sign off provided by REYES Peña. Tracing to be scanned into IHIS. documented in this encounter [facility] 2023 Nurse Surgical operation note MD armando to DC. IV removed. DC teaching reviewed. Pt declines help getting dressed. Family present. [facility] 2023 Nurse Note MD armando to DC. IV removed. DC teaching reviewed. Pt declines help getting dressed. Family present. documented in this encounter [facility] 2023 Nurse Note Sedation vitals and monitoring provided by anesthesia. [facility] 2023 Miscellaneous Notes Sedation vitals and monitoring provided by anesthesia. Bergeron teaching done with pt. He has been off of PPI x 1 week and has no stated nickel allergy. Pt states his worst symptoms are reflux and heartburn. He was taught how to record these, plus meals and sleep. Pt voices understanding. Box was given to return recorder via UPS. documented in this encounter [facility] 2023 History and physical note ENDOSCOPIC PREPROCEDURE HISTORY AND PHYSICAL HISTORY OF PRESENT ILLNESS: Zoie Heath is a 58 y.o. male seen in the pre-procedure area at [facility]. The indication for endoscopic evaluation includes: Gastroesophageal reflux disease without esophagitis S/P laparoscopic sleeve gastrectomy Gastroesophageal reflux disease without esophagitis S/P laparoscopic sleeve gastrectomy Having reflex/heart burn x 1 year after having had a sleeve gastrectomy. 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 Chronic kidney disease, stage 4, severely decreased GFR dialysis 3x weekly Depression 2010 1 suicide attempt in 2010 Diverticulosis Dry skin severe dry skin on bottom of bilateral feet - cracked heels ESRD on dialysis 02/22/2011 Fatigue GERD (gastroesophageal reflux disease) Hyperparathyroidism, secondary renal Hyperphosphatemia Inguinal hernia Insomnia Kidney transplant recipient Migraine Night muscle spasms Obesity (BMI 30-39.9) Obesity, Class III, BMI 40-49.9 (morbid obesity) 01/29/2019 DEMI on CPAP Osteoarthritis of knee Polycystic kidney disease 1999 Snoring Umbilical hernia not yet repaired SURGICAL HISTORY: Past Surgical History: Procedure Laterality Date NEPHRECTOMY OPEN Bilateral 01/23/2022 Laterality: Bilateral; Surgeon: Charley Mccracken MD, PhD; [facility] NEPHRECT[facility]Y 2021 APPENDECTOMY LAPAROSCOPIC N/A 12/26/2019 Laterality: N/A; Surgeon: Rosy Lynn DO; [facility] MAIN OR GASTRECTOMY LONGITUDINAL (SLEEVE) LAPAROSCOPIC N/A 08/10/2019 Laterality: N/A; Surgeon: Saira Moore MD; Location: [facility] MAIN OR EGD DIAGNOSTIC N/A 08/10/2019 Laterality: N/A; Surgeon: Saira Moore MD; Location: [facility] MAIN OR EGD DIAGNOSTIC N/A 04/24/2019 Laterality: N/A; Surgeon: Nahomy Santos MD; Location[facility] LAPAROTOMY EXPLORATORY N/A 02/27/2019 Laterality: N/A; Surgeon: Raul Lott MD; [facility] HERN[facility]PAIR 02/27/2019 REPAIR HERNIA UMBILICAL OPEN W/ MESH N/A 05/09/2017 Laterality: N/A; Surgeon: CORNEL Elizondo; Location: [facility] MAIN OR KIDNEY TRANSPLANT W/O TYONEK NEPHRECTOMY N/A 09/25/2016 Laterality: N/A; Surgeon: Jose Shaw MD; Location: [facility] MAIN OR IN KNEE SCOPE, MENISC TRANSPLANT Right 11/12/2014 right knee scope with lateral meniscus repair per Dr. Zepeda HERNIA REPAIR Right 01/08/2012 inguinal - uncomplicated HERNIA REPAIR 01/08/2012 umbilical - incarcerated CREATION ARTERIOVENOUS FISTULA W/ AUTOGENOUS GRAFT Left 2009 CREATION ARTERIOVENOUS FISTULA W/ NONAUTOGENOUS GRAFT 2010 SHOULDER SURGERY Left 2007 clavicle repair and shoulder arthroscopy CHOLECYSTECTOMY 2004 KNEE SURGERY Left 1992 arthroscopy ADENOIDECTOMY EXCISION FISTULA LACTIFEROUS DUCT TONSILLECTOMY MEDICATIONS: Current Outpatient Medications Medication Instructions Alclometasone Dipropionate 0.05 % Cream Apply to affected area 1-2 times daily when skin flared aspirin 81 mg, Oral, DAILY EVERY MORNING, ..Please obtain future renewals of this prescription from your primary care provider. CALCIUM CITRATE PO 1,200 mg, Oral, 2 TIMES DAILY carBAMazepine 100 MG Chew Tab Take 2 tablets daily in the morning and 3 tablets daily in the evening Cetirizine (ZYRTEC) 10 mg, Oral, DAILY Chlorthalidone (THALITONE PO) 25 mg, Oral, DAILY cyanocobalamin (VITAMIN B12) 1,000 mcg, Oral, DAILY escitalopram (LEXAPRO) 20 mg, Oral, DAILY EVERY MORNING ketoconazole 2 % Cream cream Apply to affected area up to twice daily --> okay to use every day without breaks if needed Losartan (COZAAR) 25 mg, Oral, DAILY magnesium oxide (MAX-OX) 400 mg, Oral, 2 TIMES DAILY Montelukast (SINGULAIR) 10 mg, Oral, DAILY Multiple Vitamins-Minerals (Multivitamins) Chew Tab 2 tablets, Oral, DAILY, May take pediatric or adult chalky chewable vitamin; double the recommended daily dose. Mycophenolate sodium (MYFORTIC) 540 mg, Oral, EVERY 12 HOURS OLANZapine (ZYPREXA) 2.5 mg, Oral, DAILY EVERY MORNING Pantoprazole (PROTONIX) 40 mg, Oral, 2 TIMES DAILY rOPINIRole (REQUIP) 0.5 mg, Oral, DAILY AT BEDTIME sildenafil citrate (VIAGRA) 50-100 mg, Oral, NEEDED Sodium Zirconium Cyclosilicate (LOKELMA) 10 g, Oral, DAILY Tacrolimus (PROGRAF) 5 mg, Oral, 2 TIMES DAILY terbinafine 1 % Cream cream Apply to affected area (feet) twice daily Current Outpatient Medications: Alclometasone Dipropionate 0.05 % Cream, Apply to affected area 1-2 times daily when skin flared (Patient taking differently: Apply 0.05 mg topically As directed as needed. Apply to affected area 1-2 times daily when skin flared), Disp: 45 g, Rfl: 3 aspirin 81 MG Chew Tab chewable tablet, Chew 1 tablet daily every morning. ..Please obtain future renewals of this prescription from your primary care provider., Disp: 30 tablet, Rfl: 11 CALCIUM CITRATE PO, Take 1,200 mg by mouth 2 times daily., Disp: , Rfl: carBAMazepine 100 MG Chew Tab, Take 2 tablets daily in the morning and 3 tablets daily in the evening (Patient taking differently: Chew 1 tablet 2 times daily. Take 2 tablets daily in the morning and 3 tablets daily in the evening), Disp: 150 tablet, Rfl: 0 Cetirizine 10 MG tablet, Take 1 tablet by mouth daily., Disp: 90 tablet, Rfl: 1 Chlorthalidone (THALITONE PO), Take 25 mg by mouth daily., Disp: , Rfl: cyanocobalamin 500 MCG tablet, Take 2 tablets by mouth daily. (Patient taking differently: Take 2 tablets by mouth daily every morning.), Disp: 60 tablet, Rfl: 11 escitalopram 20 MG tablet, Take 1 tablet by mouth daily every morning., Disp: 30 tablet, Rfl: 0 ketoconazole 2 % Cream cream, Apply to affected area up to twice daily --> okay to use every day without breaks if needed (Patient taking differently: Apply 1 Application topically daily as needed. Apply to affected area up to twice daily --> okay to use every day without breaks if needed), Disp: 30 g, Rfl: 3 Losartan 25 MG tablet, Take 1 tablet by mouth daily., Disp: 90 tablet, Rfl: 3 magnesium oxide 400 (241.3 Mg) MG tablet, Take 1 tablet by mouth 2 times daily., Disp: 180 tablet, Rfl: 3 Montelukast 10 MG tablet, Take 1 tablet by mouth daily., Disp: 90 tablet, Rfl: 1 Multiple Vitamins-Minerals (Multivitamins) Chew Tab, Chew 2 tablets daily. May take pediatric or adult chalky chewable vitamin; double the recommended daily dose. (Patient taking differently: Chew 2 tablets daily every morning. May take pediatric or adult chalky chewable vitamin; double the recommended daily dose.), Disp: , Rfl: mycophenolate sodium (MYFORTIC) [address], Take 3 tablets by mouth every 12 hours. (Patient taking differently: Take 3 tablets by mouth every 12 hours. Take 3 tablets every AM and every HS.), Disp: 560 tablet, Rfl: 3 OLANZapine 2.5 MG tablet, Take 1 tablet by mouth daily every morning. (Patient taking differently: Take 1 tablet by mouth at bedtime.), Disp: 30 tablet, Rfl: 0 Pantoprazole (Protonix) [address] tablet DR, Take 1 tablet by mouth 2 times daily., Disp: 180 tablet, Rfl: 2 rOPINIRole 0.5 MG tablet, Take 1 tablet by mouth at bedtime., Disp: , Rfl: sildenafil citrate 100 MG tablet, Take 0.5-1 tablets by mouth as needed for Erectile Dysfunction., Disp: 30 tablet, Rfl: 2 Sodium Zirconium Cyclosilicate (Lokelma) 5 g Pack powder, Take 2 packets by mouth daily., Disp: , Rfl: tacrolimus (PROGRAF) 1 MG capsule, Take 5 capsules by mouth 2 times daily. (Patient taking differently: Take 6 capsules by mouth 2 times daily.), Disp: 900 capsule, Rfl: 3 terbinafine 1 % Cream cream, Apply to affected area (feet) twice daily (Patient taking differently: Place 1 Application on skin As directed as needed. Apply to affected area (feet) twice daily), Disp: 36 g, Rfl: 3 ALLERGIES: Allergies Allergen Reactions Nsaids Cannot take due to renal transplant and gastric sleeve *Seasonal Runny Nose FOCUSED REVIEW OF SYSTEMS: Negative for nausea, vomiting, abdominal pain and diarrhea VITAL SIGNS: There were no vitals filed for this visit. PREPROCEDURE PHYSICAL EXAM: AIRWAY: normal, Mallampati: Class II (complete visualization of the uvula) HEART: HDS. PULMONARY: Normal work of breathing, no respiratory distress. ABDOMEN: Soft, nontender, nondistended ASSESSMENT: Zoie Heath is a 58 y.o. male is ready for the planned procedure. ASA Class: ASA 2 - Patient with mild systemic disease with no functional limitations PLAN: Will plan to proceed with [facility]ERGER[facility] PH INTERVENTIONAL UPPER ENDOSCOPY using Monitored Anesthesia Care. Schuyler Sparks MD [facility] Work Phone: 2023 History and physical note ENDOSCOPIC PREPROCEDURE HISTORY AND PHYSICAL HISTORY OF PRESENT ILLNESS: Zoie Heath is a 58 y.o. male seen in the pre-procedure area at [facility]. The indication for endoscopic evaluation includes: Gastroesophageal reflux disease without esophagitis S/P laparoscopic sleeve gastrectomy Gastroesophageal reflux disease without esophagitis S/P laparoscopic sleeve gastrectomy Having reflex/heart burn x 1 year after having had a sleeve gastrectomy. 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 Chronic kidney disease, stage 4, severely decreased GFR dialysis 3x weekly Depression 2010 1 suicide attempt in 2010 Diverticulosis Dry skin severe dry skin on bottom of bilateral feet - cracked heels ESRD on dialysis 02/22/2011 Fatigue GERD (gastroesophageal reflux disease) Hyperparathyroidism, secondary renal Hyperphosphatemia Inguinal hernia Insomnia Kidney transplant recipient Migraine Night muscle spasms Obesity (BMI 30-39.9) Obesity, Class III, BMI 40-49.9 (morbid obesity) 01/29/2019 DEMI on CPAP Osteoarthritis of knee Polycystic kidney disease 1999 Snoring Umbilical hernia not yet repaired SURGICAL HISTORY: Past Surgical History: Procedure Laterality Date NEPHRECTOMY OPEN Bilateral 01/23/2022 Laterality: Bilateral; Surgeon: Charley Mccracken MD, PhD; [facility] [place] [facility] OR NEPHRECTOMY 2021 APPENDECTOMY LAPAROSCOPIC N/A 12/26/2019 Laterality: N/A; Surgeon: Rosy Lynn DO; [facility] GASTRECTOMY LONGITUDINAL (SLEEVE) LAPAROSCOPIC N/A 08/10/2019 Laterality: N/A; Surgeon: Saira Moore MD; [facility] EGD DIAGNOSTIC N/A 08/10/2019 Laterality: N/A; Surgeon: Saira Moore MD; Location: [facility] SAME DAY SURGERY MAIN OR EGD DIAGNOSTIC N/A 04/24/2019 Laterality: N/A; Surgeon: Nahomy Santos MD; [facility] LAPAROTOMY EXPLORATORY N/A 02/27/2019 Laterality: N/A; Surgeon: Raul Lott MD; [facility] HERNIA REPAIR 02/27/2019 REPAIR HERNIA UMBILICAL OPEN W/ MESH N/A 05/09/2017 Laterality: N/A; Surgeon: CORNEL Elizondo; [facility] KIDNEY TRANSPLANT W/O TYONEK NEPHRECTOMY N/A 09/25/2016 Laterality: N/A; Surgeon: Jose Shaw MD; [facility] IN KNEE SCOPE, MENISC TRANSPLANT Right 11/12/2014 right knee scope with lateral meniscus repair per Dr. Zepeda HERNIA REPAIR Right 01/08/2012 inguinal - uncomplicated HERNIA REPAIR 01/08/2012 umbilical - incarcerated CREATION ARTERIOVENOUS FISTULA W/ AUTOGENOUS GRAFT Left 2010 CREATION ARTERIOVENOUS FISTULA W/ NONAUTOGENOUS GRAFT 2009 SHOULDER SURGERY Left 2007 clavicle repair and shoulder arthroscopy CHOLECYSTECTOMY 2005 KNEE SURGERY Left 1992 arthroscopy ADENOIDECTOMY EXCISION FISTULA LACTIFEROUS DUCT TONSILLECTOMY MEDICATIONS: Current Outpatient Medications Medication Instructions Alclometasone Dipropionate 0.05 % Cream Apply to affected area 1-2 times daily when skin flared aspirin 81 mg, Oral, DAILY EVERY MORNING, ..Please obtain future renewals of this prescription from your primary care provider. CALCIUM CITRATE PO 1,200 mg, Oral, 2 TIMES DAILY carBAMazepine 100 MG Chew Tab Take 2 tablets daily in the morning and 3 tablets daily in the evening Cetirizine (ZYRTEC) 10 mg, Oral, DAILY Chlorthalidone (THALITONE PO) 25 mg, Oral, DAILY cyanocobalamin (VITAMIN B12) 1,000 mcg, Oral, DAILY escitalopram (LEXAPRO) 20 mg, Oral, DAILY EVERY MORNING ketoconazole 2 % Cream cream Apply to affected area up to twice daily --> okay to use every day without breaks if needed Losartan (COZAAR) 25 mg, Oral, DAILY magnesium oxide (MAX-OX) 400 mg, Oral, 2 TIMES DAILY Montelukast (SINGULAIR) 10 mg, Oral, DAILY Multiple Vitamins-Minerals (Multivitamins) Chew Tab 2 tablets, Oral, DAILY, May take pediatric or adult chalky chewable vitamin; double the recommended daily dose. Mycophenolate sodium (MYFORTIC) 540 mg, Oral, EVERY 12 HOURS OLANZapine (ZYPREXA) 2.5 mg, Oral, DAILY EVERY MORNING Pantoprazole (PROTONIX) 40 mg, Oral, 2 TIMES DAILY rOPINIRole (REQUIP) 0.5 mg, Oral, DAILY AT BEDTIME sildenafil citrate (VIAGRA) 50-100 mg, Oral, NEEDED Sodium Zirconium Cyclosilicate (LOKELMA) 10 g, Oral, DAILY Tacrolimus (PROGRAF) 5 mg, Oral, 2 TIMES DAILY terbinafine 1 % Cream cream Apply to affected area (feet) twice daily Current Outpatient Medications: Alclometasone Dipropionate 0.05 % Cream, Apply to affected area 1-2 times daily when skin flared (Patient taking differently: Apply 0.05 mg topically As directed as needed. Apply to affected area 1-2 times daily when skin flared), Disp: 45 g, Rfl: 3 aspirin 81 MG Chew Tab chewable tablet, Chew 1 tablet daily every morning. ..Please obtain future renewals of this prescription from your primary care provider., Disp: 30 tablet, Rfl: 11 CALCIUM CITRATE PO, Take 1,200 mg by mouth 2 times daily., Disp: , Rfl: carBAMazepine 100 MG Chew Tab, Take 2 tablets daily in the morning and 3 tablets daily in the evening (Patient taking differently: Chew 1 tablet 2 times daily. Take 2 tablets daily in the morning and 3 tablets daily in the evening), Disp: 150 tablet, Rfl: 0 Cetirizine 10 MG tablet, Take 1 tablet by mouth daily., Disp: 90 tablet, Rfl: 1 Chlorthalidone (THALITONE PO), Take 25 mg by mouth daily., Disp: , Rfl: cyanocobalamin 500 MCG tablet, Take 2 tablets by mouth daily. (Patient taking differently: Take 2 tablets by mouth daily every morning.), Disp: 60 tablet, Rfl: 11 escitalopram 20 MG tablet, Take 1 tablet by mouth daily every morning., Disp: 30 tablet, Rfl: 0 ketoconazole 2 % Cream cream, Apply to affected area up to twice daily --> okay to use every day without breaks if needed (Patient taking differently: Apply 1 Application topically daily as needed. Apply to affected area up to twice daily --> okay to use every day without breaks if needed), Disp: 30 g, Rfl: 3 Losartan 25 MG tablet, Take 1 tablet by mouth daily., Disp: 90 tablet, Rfl: 3 magnesium oxide 400 (241.3 Mg) MG tablet, Take 1 tablet by mouth 2 times daily., Disp: 180 tablet, Rfl: 3 Montelukast 10 MG tablet, Take 1 tablet by mouth daily., Disp: 90 tablet, Rfl: 1 Multiple Vitamins-Minerals (Multivitamins) Chew Tab, Chew 2 tablets daily. May take pediatric or adult chalky chewable vitamin; double the recommended daily dose. (Patient taking differently: Chew 2 tablets daily every morning. May take pediatric or adult chalky chewable vitamin; double the recommended daily dose.), Disp: , Rfl: mycophenolate sodium (MYFORTIC) [address], Take 3 tablets by mouth every 12 hours. (Patient taking differently: Take 3 tablets by mouth every 12 hours. Take 3 tablets every AM and every HS.), Disp: 560 tablet, Rfl: 3 OLANZapine 2.5 MG tablet, Take 1 tablet by mouth daily every morning. (Patient taking differently: Take 1 tablet by mouth at bedtime.), Disp: 30 tablet, Rfl: 0 Pantoprazole (Protonix) [address] tablet DR, Take 1 tablet by mouth 2 times daily., Disp: 180 tablet, Rfl: 2 rOPINIRole 0.5 MG tablet, Take 1 tablet by mouth at bedtime., Disp: , Rfl: sildenafil citrate 100 MG tablet, Take 0.5-1 tablets by mouth as needed for Erectile Dysfunction., Disp: 30 tablet, Rfl: 2 Sodium Zirconium Cyclosilicate (Lokelma) 5 g Pack powder, Take 2 packets by mouth daily., Disp: , Rfl: tacrolimus (PROGRAF) 1 MG capsule, Take 5 capsules by mouth 2 times daily. (Patient taking differently: Take 6 capsules by mouth 2 times daily.), Disp: 900 capsule, Rfl: 3 terbinafine 1 % Cream cream, Apply to affected area (feet) twice daily (Patient taking differently: Place 1 Application on skin As directed as needed. Apply to affected area (feet) twice daily), Disp: 36 g, Rfl: 3 ALLERGIES: Allergies Allergen Reactions Nsaids Cannot take due to renal transplant and gastric sleeve *Seasonal Runny Nose FOCUSED REVIEW OF SYSTEMS: Negative for nausea, vomiting, abdominal pain and diarrhea VITAL SIGNS: There were no vitals filed for this visit. PREPROCEDURE PHYSICAL EXAM: AIRWAY: normal, Mallampati: Class II (complete visualization of the uvula) HEART: HDS. PULMONARY: Normal work of breathing, no respiratory distress. ABDOMEN: Soft, nontender, nondistended ASSESSMENT: Zoie Heath is a 58 y.o. male is ready for the planned procedure. ASA Class: ASA 2 - Patient with mild systemic disease with no functional limitations PLAN: Will plan to proceed with BERGERON PH INTERVENTIONAL UPPER ENDOSCOPY using Monitored Anesthesia Care. Schuyler Sparks MD documented in this encounter [facility] 2023 Nurse Note Bergeron teaching done with pt. He has been off of PPI x 1 week and has no stated nickel allergy. Pt states his worst symptoms are reflux and heartburn. He was taught how to record these, plus meals and sleep. Pt voices understanding. Box was given to return recorder via UPS. [facility] 05-28-2023 History of Present illness Narrative -Referring Provider for today's consult: Self, Self CC: Chief Complaint Patient presents with Skin Exam HPI: Zoie Heath is an 57 y.o. year old male who presents for: FBSE Duration: on going Location: full body Associated Symptoms: Scattered brown spots Modifying factors/treatments tried: FBSE Other social history (marital status, employment, etc): General Questions for Skin Cancer Screening Yes No Comments Previous history of Skin Cancer? If yes, see comments [] [x] Previous history of systemic cancers? If yes, see comments [] [x] Family history of skin cancer? 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 Allergies / Medications / Immunizations: The patient is allergic to nsaids and *seasonal. The patient has a current medication list which includes the following prescription(s): alclometasone dipropionate, aspirin, calcium citrate, carbamazepine, cetirizine, chlorthalidone, cyanocobalamin, escitalopram, ketoconazole, losartan, magnesium oxide, montelukast, multivitamins, mycophenolate sodium, olanzapine, pantoprazole, ropinirole, sildenafil citrate, sodium zirconium cyclosilicate, tacrolimus, and terbinafine. Physical Exam: WD, WN, NAD, A&O x 3. Normal mood and affect. Exam included: This exam/procedure/test/treatment was conducted by Aliza Davis MD, in the presence of a medical web pressman. [x] A full body skin exam was performed including scalp, face, lips, eyelids, neck, back, chest, buttocks, right arm, left arm, right leg, left leg, digits [] A focused waist up exam of scalp, face, lips, eyelids, neck, back, chest, left arm, right arm, and digits performed [] A lymph node exam was performed [] A genital exam was performed [] A focused exam of the following areas was performed: All normal except: Right foot 5th digit brown macule 3 x 2.5 mm-no change from past photo Declined genital exam [x] Sun Damage: Actinic damage present [x] SK: Scattered verrucous stuck on papules [x] Lentigines: Scattered light brown macules in sun-exposed areas [x] Wadsworth Angiomas: Scattered bright red papules [] Dermatofibroma: Firm hyperpigmented, domeshaped papule: Location: [] CALM: Well circumscribed homogenious ovoid brown patch: Location: [] Sebaceous hyperplasia: Dome shaped, yellow papules on the face [] Dilated Pore: Skin colored to brown papules with overlying open black pore [] Milia: Small dome shaped white smooth papules [x] Nevi: Scattered well circumscribed brown macules and papules [] Scar: well healed scar - no evidence of recurrence Location: [] Monitoring Nevi: Brown macule - reassuring under dermoscopy: Location: Size: Shave Removal: [x] Fleshy brown papule Location: left upper arm Size: 6 x 3mm Procedures Performed: Neoplasm of Uncertain Behavior [x] Shave Removal performed with intent for complete removal. Size documented in physical exam section [] Tangential Skin Biopsy performed with intent for diagnosis before treatment Procedure performed after risks, benefits, alternatives discussed. Informed consent obtained. Site: left upper arm Ddx: irritated nevus vs rule out atypia Explained the risk of scarring, bleeding, infection and wound care instructions. Area(s) prepped with alcohol and anesthetized with 1cc intradermal 1% lidocaine with 1:100,000 epinephrine Sterile shave blade used to performed procedure Specimen(s) submitted to pathology <1cc estimated blood loss, procedure well-tolerated Cautery used to stop bleeding if applicable Wound covered with aquaphor and bandaid Wound care instructions given Path / Imaging / Lab Data: None Impression/Plan: ICD-10-CM 1. Lentigines L81.4 2. Skin cancer screening Z12.83 3. Actinic skin damage L57.8 4. SK (seborrheic keratosis) L82.1 5. 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 Melanocytic nevus of lower extremity including hip, unspecified laterality D22.70 7. Melanocytic nevi of trunk D22.5 8. Melanocytic nevus of upper extremity, unspecified laterality D22.60 9. Neoplasm of uncertain behavior of skin D48.5 IN SHAV SKIN LES 0.6-1CM TRUNK,ARM,LEG SURG PATH REQUEST Skin Cancer Screening -education, reassurance regarding benign-appearing lesions on exam today -sunsmart educational materials provided on AVS reviewing sunsmarts including recommendation for daily suscreen spf 30, sun-protective clothing, sun avoidance, and benefit of self skin exams - Explained no need for further tx/biopsy at this time for Seborrheic Keratosis , Lentigines , and Wadsworth Angioma. Will continue to monitor clinically. - Explained that the patient should check their skin monthly at home and watch for growing/changing lesions and call us immediately if they notice any changes. - Discussed importance of photoprotection Nevi - Discussed risk of melanoma in growing/changing moles. Advised monthly self exams, was educated on the ABCD of moles, and broad spectrum SPF and sun/UV protection/avoidance. Patient is to return [facility] for new rapidly growing or unusual appearing moles, if any changes in shape, color or size of the existing moles, and/or if any mole becomes itchy or start to bleed. Nevi-->right fifth digit--> 3 x 2.5 mm--> no change from past photo - pt reports present 10+ years without change. - Discussed treatment options --> bx vs clinical monitoring --> pt opted for clinical monitoring. Took photo and measurement today --> plan to recheck in 12 months - Pt aware of risks/benefits of clinical monitoring vs bx today. - Pt aware that they should take a photo of this spot on their phone and compare the spot to the photo every month. If any change/growth they are aware to call the office and we will schedule a biopsy. Chronic Actinic Damage - This is a chronic condition that requires treatment and long-term monitoring --> recommend at least annual full body skin exam - Recommend photo protection with pants, long sleeves, wide-brimmed hats - Discussed importance of broad-spectrum sunscreen with SPF 30 or greater - Without monitoring and treatment when needed actinic damage can lead to cutaneous malignancies with can result in disfigurement, pain, organ damage, and in some cases NUB Biopsy done today. See procedure note. Return in about 1 year (around 05/28/2024) for Skin Check. Prescriptions written or refilled today include: Requested Prescriptions No prescriptions requested or ordered in this encounter ISarah LPN , served as a scribe and medical web pressman for this exam/procedure on 05/28/2023 This exam/procedure was conducted by Aliza Davis MD in the presence of a medical web pressman I have reviewed this documentation scribed above and it is accurate as of 05/28/2023 12:25 PM Aliza Davis MD Regional Office Coordinator Division of Dermatology [facility] documented in this encounter [facility] 05-28-2023 Instructions Sarah Guerra - 05/28/2023 11:00 AM EST Images from the original note were not included. Skin cancer is the abnormal growth of cells in the skin. It usually appears as a growth that changes in color, shape, or size. This can be a sore that does not heal or a change in a wart or a mole. Skin cancer is almost always curable when found early and treated. So it is important to see your doctor if you have any of these changes in your skin. Skin cancer is the most common type of cancer. It often appears on areas of the body that have been exposed to the sun, such as the head, face, neck, back, chest, or shoulders. Monitor your own skin for the warning signs of a melanoma: A - Asymmetry. Your mole should look the same right side versus left side, and top versus bottom. B - Borders. Your mole should have straight edges. Borders that are jagged or when you can't see where it starts and stops have an increased risk of being troublesome. C - Color. All of your moles should be the same color which corresponds to your hair color, eye color, and skin type. Any mole that looks different, whether black, blue, red, white, or otherwise different is at a higher risk. D - Diameter. Your moles should be less than 6mm which is the width of a pencil. E - Evolution. If any mole is changing color, size, shape, or otherwise, it is at a higher risk. If you are worried about a mole, please make an appointment to be seen. If a mole has one or more of these features, it does not mean that it is a melanoma, but does mean it is higher risk to be a melanoma and should be evaluated. There are two types of sun rays that are harmful to the skin. UVA rays cause skin aging and skin cancer, such as melanoma. UVB rays cause sunburns, cataracts, and also contribute to skin cancer. How can you care for yourself at home? Wear a wide-brimmed hat and long sleeves and pants if you are going to be outdoors for a long time. Avoid the sun between 10 a.m. and 4 p.m., which is the peak time for UV rays. Wear sunscreen on exposed skin. Make sure to use a broad-spectrum sunscreen that has a sun protection factor (SPF) of 30 or higher. Use it every day, even when it is cloudy. Do not use tanning booths or sunlamps. Use lip balm or cream that has sun protection factor (SPF) to protect your lips from getting sunburned. Wear sunglasses that block UV rays. I prefer sunscreens with a physical matthew (titanium dioxide or zinc oxide). Some that I recommend include: - Irish Gold Botanical Mineral Sunscreen - SPF 30 or 50 - Aveeno Baby Continuous Protection Zinc Oxide Mineral Sunscreen - SPF 50 - Aveeno Mineral Sensitive Skin Sunscreen - SPF 50 - Bare Republic Mineral Body Lotion - SPF50 - La Araceli-Posay Anthelios Body And Face Soft Finish Mineral Sunscreen Lotion - SPF 50 - Neutrogena Sheer Zinc Sunscreen Lotion - SPF 50 Wound Care for Open or Sutured Wounds Wound care is done to clean the wound, prevent infection and prevent scab formation. Wounds heal faster when scabs are not allowed to form on wounds. Biopsy and Electrodessication and Curretage (EDC) sites Leave original bandaid in place for 24 Wash the area with gentle soap and water daily. Do not use a wash cloth, loofah or scrubbing brush on area Make sure that the site is the last thing washed before getting out of the shower Pat area dry, apply a layer of Vaseline or Aquaphor using a clean q-tip and apply a bandage Do not use neosporin or polysporin to biopsy or EDC sites Repeat until healed (or until stitches are removed if stitches are placed) It is normal for the site to have a rim of redness and a yellow/red base while healing Call the office if you are concerned about infection or have severe pain, pus, redness spreading > 1 inch outside of the biopsy site We will make every effort to communicate your biopsy test results within ten business days. Certain results may take longer, but are usually received within fourteen days. Results are autoreleased on [employer] before being reviewed by the physician. Please allow 3 business days after results are released for the physician to review results and determine management. Surgical Sites Leave original dressing in place for 48 hours After 48 hours, wash the area with gentle soap and water daily. Do not use a wash cloth, loofah or scrubbing brush on area Wash your hands with soap and water before removing bandage If the bandage is stuck, wet the dressing/bandage with tap water, wait 3-5 minutes and then remove it. Make sure that the surgery site is the last thing washed before getting out of the shower Avoid submerging wound in a bath tub (showers are fine) for 14 days Pat area dry, apply a layer of Vaseline or Aquaphor with a clean qtip and apply a bandage Do NOT use neosporin or polysporin to surgery sites Repeat until stitches are removed. If stitches are all under the skin, repeat for 14 days. Redness along the stitch line is normal Call the office if you are concerned about infection or have severe pain, pus, redness spreading > 1 inch outside the stitch line Avoid elevating your heart rate for atleast 3 days post surgery to prevent bleeding Avoid heavy lifting, exercise, swimming, golfing, fishing, etc until stitches removed to avoid opening wound. If all stitches are under the skin, gradually return to normal activity starting at 14 days Bleeding: Apply direct pressure firmly over the wound for 20 minutes, timed by the clock. If bleeding has not stopped, apply pressure for 20 more minutes along with ice. If bleeding still has not stopped, continue holding pressure on the wound and call your taker away or go to your local emergency room. Pain: Local anesthesia will wear off in approximately 1-3 hours. The area may burn, throb, feel tender or sore but should NOT be excruciatingly painful. If your wound hurts, take Tylenol or Extra-Strength Tylenol (acetaminophen) as directed on bottle, as needed. If Tylenol does not control the pain, alternate between Tylenol and Ibuprofen Call your taker away for pain not controlled by Tylenol and Ibuprofen, this may be a sign of infection Do not take Tylenol or Ibuprofen if instructed to avoid these medications by a Physician What to Expect after Surgery The wound may have a slight pink or brown colored fluid leaking from it. This may show on the dressing. Mild pain. Mild tenderness at the wound site, like a bruise. Mild color changes to skin, like a bruise. A black eye can appear with facial surgeries. Swelling of the eyelids may happen with facial surgeries. Swelling will get worse for the first three days before it will start to improve. To reduce the amount of swelling that may occur, you can apply an ice pack to the area once an hour for 20 minutes at a time. Call your Doctor if you have: Bleeding not controlled by pressure. Increase in redness Pain not controlled by Tylenol and Ibuprofen Swelling Increases or severe pain Drainage of pus Fever over 100.5 degrees Red streaks extending from the operative site. A marble size bump (hematoma) under the skin that is blue/purple/and/or red To reduce scarring: Silicone scar sheets can be applied to the scar or silicone scar gel can be massaged into the scar once the stitches are removed (over the counter) Who to call [facility] Dermatology at for problems Saturday through Saturday in the morning or afternoon. For Urgent problems in the evenings or after hours, call the hospital briquette machine operator helper at and ask for the Delivery Lead professional programmer analyst. TEST RESULTS: We will make every effort to communicate your biopsy test results within ten business days. Certain results may take longer, but are usually received within fourteen days. Results are autoreleased on [employer] before being reviewed by the physician. Please allow 3 business days after results are released for the physician to review results and determine management. Your results will be communicated to you in one of three ways; Mailed to you [id number] Message Reviewed with you over the phone If you have any questions about your visit today or your tests, please call us at [phone] Option 4. Please wait 14 days prior to calling for test results This flipbook was created as a guide to Mohs micrographic surgery, but it has helpful information about healing towards the end. documented in this encounter [facility] 04-22-2023 History of Present illness Narrative Date of Service : 04/19/2023 CHIEF COMPLAINT: New patient with right ankle pain. Chief Complaint Patient presents with New Patient New Pt, Rt ankle pain. DOI 03/11/23(39 days) Jacky Wrap from ED with minimal relief. 4/10 pain at rest, 6/10 pain with WB/Activity. HISTORY: The patient is a 57-year-old male, who presents today with right ankle pain. He injured it about 40 days ago. He had an Jacky bandage, they gave him minimal relief. It never got better. He has 4/10 pain at rest, 6/10 with activity. He notes that he fell and rolled his ankle. He was seen in the [place] [facility] on March 11, 2023, a day after the injury and only one in an Jacky wrap at that point. 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 Chronic kidney disease, stage 4, severely decreased GFR dialysis 3x weekly Depression 2010 1 suicide attempt in 2010 Diverticulosis Dry skin severe dry skin on bottom of bilateral feet - cracked heels ESRD on dialysis 02/22/2011 Fatigue GERD (gastroesophageal reflux disease) Hyperparathyroidism, secondary renal Hyperphosphatemia Inguinal hernia Insomnia Kidney transplant recipient Migraine Night muscle spasms Obesity (BMI 30-39.9) Obesity, Class III, BMI 40-49.9 (morbid obesity) 01/29/2019 DEMI on CPAP Osteoarthritis of knee Polycystic kidney disease 1999 Snoring Umbilical hernia not yet repaired Past Surgical History: Procedure Laterality Date NEPHRECTOMY OPEN Bilateral 01/23/2022 Laterality: Bilateral; Surgeon: Charley Mccracken MD, PhD; [facility] NEPHRECTOMY 2021 APPENDECTOMY LAPAROSCOPIC N/A 12/26/2019 Laterality: N/A; Surgeon: Rosy Lynn DO; Location: [facility] MAIN OR GASTRECTOMY LONGITUDINAL (SLEEVE) LAPAROSCOPIC N/A 08/10/2019 Laterality: N/A; Surgeon: Saira Moore MD; Location: [facility] SAME DAY SURGERY MAIN OR EGD DIAGNOSTIC N/A 08/10/2019 Laterality: N/A; Surgeon: Saira Moore MD; Location: [facility] SAME DAY SURGERY MAIN OR EGD DIAGNOSTIC N/A 04/24/2019 Laterality: N/A; Surgeon: Nahomy Santos MD; Location: [facility] ENDOSCOPY LAPAROTOMY EXPLORATORY N/A 02/27/2019 Laterality: N/A; Surgeon: Rual Lott MD; [facility]PA[facility] 02/27/2019 REPAIR HERNIA UMBILICAL OPEN W/ MESH N/A 05/09/2017 Laterality: N/A; Surgeon: CORNEL Elizondo; Location: [facility] MAIN OR KIDNEY TRANSPLANT W/O TYONEK NEPHRECTOMY N/A 09/25/2016 Laterality: N/A; Surgeon: Jose Shaw MD; Location: [facility] MAIN OR IN KNEE SCOPE, MENISC TRANSPLANT Right 11/12/2014 right knee scope with lateral meniscus repair per Dr. Zepeda HERNIA REPAIR Right 01/08/2012 inguinal - uncomplicated HERNIA REPAIR 01/08/2012 umbilical - incarcerated CREATION ARTERIOVENOUS FISTULA W/ AUTOGENOUS GRAFT Left 2009 CREATION ARTERIOVENOUS FISTULA W/ NONAUTOGENOUS GRAFT 2010 SHOULDER SURGERY Left 2008 clavicle repair and shoulder arthroscopy CHOLECYSTECTOMY 2005 KNEE SURGERY Left 1992 arthroscopy ADENOIDECTOMY EXCISION FISTULA LACTIFEROUS DUCT TONSILLECTOMY Current Outpatient Medications: Alclometasone Dipropionate 0.05 % Cream, Apply to affected area 1-2 times daily when skin flared (Patient taking differently: Apply 0.05 mg topically As directed as needed. Apply to affected area 1-2 times daily when skin flared), Disp: 45 g, Rfl: 3 aspirin 81 MG Chew Tab chewable tablet, Chew 1 tablet daily every morning. ..Please obtain future renewals of this prescription from your primary care provider., Disp: 30 tablet, Rfl: 11 CALCIUM CITRATE PO, Take 1,200 mg by mouth 2 times daily., Disp: , Rfl: carBAMazepine 100 MG Chew Tab, Take 2 tablets daily in the morning and 3 tablets daily in the evening (Patient taking differently: Chew 1 tablet 2 times daily. Take 2 tablets daily in the morning and 3 tablets daily in the evening), Disp: 150 tablet, Rfl: 0 Cetirizine 10 MG tablet, Take 1 tablet by mouth daily., Disp: 90 tablet, Rfl: 1 Chlorthalidone (THALITONE PO), Take 25 mg by mouth daily., Disp: , Rfl: cyanocobalamin 500 MCG tablet, Take 2 tablets by mouth daily. (Patient taking differently: Take 2 tablets by mouth daily every morning.), Disp: 60 tablet, Rfl: 11 escitalopram 20 MG tablet, Take 1 tablet by mouth daily every morning., Disp: 30 tablet, Rfl: 0 ketoconazole 2 % Cream cream, Apply to affected area up to twice daily --> okay to use every day without breaks if needed (Patient taking differently: Apply 1 Application topically daily as needed. Apply to affected area up to twice daily --> okay to use every day without breaks if needed), Disp: 30 g, Rfl: 3 Losartan 25 MG tablet, Take 1 tablet by mouth daily., Disp: 90 tablet, Rfl: 3 magnesium oxide 400 (241.3 Mg) MG tablet, Take 1 tablet by mouth 2 times daily., Disp: 180 tablet, Rfl: 3 Montelukast 10 MG tablet, Take 1 tablet by mouth daily., Disp: 90 tablet, Rfl: 1 Multiple Vitamins-Minerals (Multivitamins) Chew Tab, Chew 2 tablets daily. May take pediatric or adult chalky chewable vitamin; double the recommended daily dose. (Patient taking differently: Chew 2 tablets daily every morning. May take pediatric or adult chalky chewable vitamin; double the recommended daily dose.), Disp: , Rfl: mycophenolate sodium (MYFORTIC) [address], Take 3 tablets by mouth every 12 hours. (Patient taking differently: Take 3 tablets by mouth every 12 hours. Take 3 tablets every AM and every HS.), Disp: 560 tablet, Rfl: 3 OLANZapine 2.5 MG tablet, Take 1 tablet by mouth daily every morning. (Patient taking differently: Take 1 tablet by mouth at bedtime.), Disp: 30 tablet, Rfl: 0 Pantoprazole (Protonix) [address] tablet DR, Take 1 tablet by mouth 2 times daily., Disp: 180 tablet, Rfl: 2 rOPINIRole 0.5 MG tablet, Take 1 tablet by mouth at bedtime., Disp: , Rfl: sildenafil citrate 100 MG tablet, Take 0.5-1 tablets by mouth as needed for Erectile Dysfunction., Disp: 30 tablet, Rfl: 2 Sodium Zirconium Cyclosilicate (Lokelma) 5 g Pack powder, Take 2 packets by mouth daily., Disp: , Rfl: tacrolimus (PROGRAF) 1 MG capsule, Take 5 capsules by mouth 2 times daily. (Patient taking differently: Take 6 capsules by mouth 2 times daily.), Disp: 900 capsule, Rfl: 3 terbinafine 1 % Cream cream, Apply to affected area (feet) twice daily (Patient taking differently: Place 1 Application on skin As directed as needed. Apply to affected area (feet) twice daily), Disp: 36 g, Rfl: 3 Allergies Allergen Reactions Nsaids Cannot take due to renal transplant and gastric sleeve *Seasonal Runny Nose Social History Socioeconomic History Marital status: Spouse name: Derick Number of children: 3 Years of education: 12 Highest education level: Not on file Occupational History Not on file Tobacco Use Smoking status: Former Packs/day: 1.00 Years: 20.00 Additional pack years: 0.00 Total pack years: 20.00 Types: Cigarettes Start date: 07/01/1982 Quit date: 07/01/1999 Years since quittin.8 Passive exposure: Never Smokeless tobacco: Never Vaping Use Vaping Use: Never used Substance and Sexual Activity Alcohol use: No Comment: none Drug use: Never Sexual activity: Yes Partners: Female Comment: Other Topics Concern Service Not Asked Blood Transfusions Not Asked Caffeine Concern Not Asked Occupational Exposure Not Asked Hobby Hazards Not Asked Sleep Concern Not Asked Stress Concern Not Asked Weight Concern Not Asked Special Diet Not Asked Back Care Not Asked Exercise Not Asked Bike Helmet Not Asked Seat Belt Not Asked Domestic Violence No Social History Narrative Not on file Social Determinants of Health Financial Resource Strain: Not on file Food Insecurity: Not on file Transportation Needs: Not on file Physical Activity: Not on file Stress: Not on file Social Connections: Not on file Intimate Partner Violence: Not on file Housing Stability: Not on file Family History Problem Relation Age of Onset Kidney Disease Mother PKD; transplant Hypertension Mother Diabetes Father Diabetes Sister Alzheimer's Maternal Grandmother Other - Specify Maternal Grandfather esrd Anesth Problems Neg Hx Review of Systems Constitutional: Negative for chills, fatigue, fever and unexpected weight change. HENT: Negative for hearing loss. Respiratory: Negative for shortness of breath. Cardiovascular: Negative for chest pain. Gastrointestinal: Negative for abdominal pain and blood in stool. Endocrine: Negative for polydipsia. Genitourinary: Negative for hematuria. Musculoskeletal: Positive for arthralgias. Neurological: Negative for seizures. Hematological: Does not bruise/bleed easily. Psychiatric/Behavioral: Negative for dysphoric mood. *Not diabetic *No dentures/partials PHYSICAL EXAMINATION: GENERAL: He is in no acute distress. He is alert, awake, and oriented x3. His affect is normal. VITAL SIGNS: His temperature is 97.7 degrees Fahrenheit. Height is 5 feet 7 inches, weight is 101.2 kg. EXTREMITIES: On his right ankle, he has no tenderness to palpation over the ATFL over the lateral ankle. He has some tenderness over the deltoid ligament as well as the medial ankle. No instability is notable. No deformity is notable with weightbearing. No weaknesses are notable. He has smooth range of motion in dorsiflexion, plantar flexion, eversion, and inversion with definitive endpoint present. IMAGING: The x-rays from the emergency room were reviewed, 3 views of the right ankle, which revealed no fractures, no dislocations. No signs of significant arthritic changes. DIAGNOSIS: Right ankle sprain. PLAN: Discussed with the patient today that he did sprain the ankle in the medial side. It does sometimes take longer to feel better. At this point, I recommended a brace to give him some support, especially for when he is walking and physical therapy. The ankle lacer brace was dispensed to the patient today. He was shown how to utilize the straps and the laces, how to position the boot for a comfort, stability, and structural fit in all 3 cardinal planes. Six minutes of time spent with the patient and explaining how to utilize the brace. He does not need to sleep in it and we will leave the brace as tolerated and he does physical therapy. (DOC:[id number]) Review of Systems Constitutional: Negative for chills, fatigue, fever and unexpected weight change. HENT: Negative for hearing loss. Respiratory: Negative for shortness of breath. Cardiovascular: Negative for chest pain. Gastrointestinal: Negative for abdominal pain and blood in stool. Endocrine: Negative for polydipsia. Genitourinary: Negative for hematuria. Musculoskeletal: Positive for arthralgias. Neurological: Negative for seizures. Hematological: Does not bruise/bleed easily. Psychiatric/Behavioral: Negative for dysphoric mood. *Not diabetic *No dentures/partials documented in this encounter [facility] 04-16-2023 History of Present illness Narrative Subjective History of Present Illness Right Ankle Pain Zoie Heath presents with ankle pain that started 03/10/2023. This was in association to an injury/accident. 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 Location of pain: right medial ankle to heel. Associated symptoms: pain and swelling )especially end of the day). Aggravating factors: standing, weight bearing, some movements. Alleviating factors: tylenol. No dysesthesias, weakness. Able to bear weight immediately: no, did wrap and stayed off of ankle X 1 day Objective Review of Systems Constitutional: Negative for chills, fatigue, fever. 8# weight gain since in last HENT: Positive for congestion. Negative for ear pain, nosebleeds, postnasal drip, rhinorrhea, sinus pressure, sinus pain, sneezing and sore throat. Eyes: Negative for pain, discharge, redness and itching. Respiratory: Negative for cough, chest tightness, shortness of breath and wheezing. Cardiovascular: Positive for leg swelling (chronic and unchanged). Negative for chest pain and palpitations. Gastrointestinal: Negative for abdominal pain, constipation, diarrhea, nausea and vomiting. Genitourinary: Negative for dysuria, frequency, hematuria and urgency. Skin: Negative for rash. Allergic/Immunologic: Negative for environmental allergies. Neurological: Negative for dizziness and headaches. Psychiatric/Behavioral: Negative for agitation and sleep disturbance. The patient is not nervous/anxious. Physical Exam Musculoskeletal: Right ankle: Swelling (surrounding medial malleolus ) present. No deformity, ecchymosis or lacerations. Tenderness (medial malleolus) present over the medial malleolus. Decreased range of motion. Normal pulse. Constitutional: He is oriented to person, place, and time and well-developed, well-nourished, and in no distress. No distress. overweight HENT: Right Ear: External ear and TM normal. Light yellow, non-occlusive cerumen present. Left Ear: External ear normal tympanic membrane normal. Nose: Mild swollen turbinates with mild erythema, clear rhinorrhea. Right sinus exhibits no maxillary and frontal sinus tenderness and left sinus exhibits maxillary and frontal sinus tenderness. Mouth/Throat: Uvula is midline, oropharynx is clear and moist and mucous membranes are normal. Clear post nasal drainage present with minimal erythema present Eyes: Conjunctivae and lids are normal. Neck: Normal range of motion. Neck supple. Cardiovascular: Normal rate, regular rhythm, S1 normal, S2 normal and intact distal pulses. Murmur heard. Systolic murmur is present with a grade of 2/6 Pulmonary/Chest: Effort normal and breath sounds normal. Lymphadenopathy: Head (right side): No submental, no submandibular and no tonsillar adenopathy present. Head (left side): No submental, no submandibular and no tonsillar adenopathy present. Right cervical: No superficial cervical adenopathy present. Left cervical: No superficial cervical adenopathy present. Right: No supraclavicular adenopathy present. Left: No supraclavicular adenopathy present. Neurological: He is oriented to person, place, and time. He has normal reflexes. Skin: Skin is warm, dry and intact. No abrasion and no bruising noted. Psychiatric: Memory and affect normal. His mood appears not anxious. He does not exhibit a depressed mood. Mental Status Oriented to person, place, and time. Assessment and Plan Right Ankle Pain: s/sx very consistent with sprain and reviewed this. Given educational information regarding this referral in for Dr Diego for repeat imaging if determined needed and to discuss immobilization for healing. Will F/U pending referral results. Discussed rest, ice, elevation to help. documented in this encounter [facility] 03-11-2023 Emergency department Note Pts right foot wrapped in an jacky bandage. Pt verbalized understanding of DC instructions. He denied any further complaints and ambulated out of er [facility] 03-11-2023 Emergency department Note Pts right foot wrapped in an jacky bandage. Pt verbalized understanding of DC instructions. He denied any further complaints and ambulated out of er Emergency Department Report [facility] EMERGENCY MEDICINE Service Date:.03/11/23 PCP: Mariana Miranda Chief Complaint: Chief Complaint Patient presents with Foot Pain Fell and injured inside of right foot at 1530 today. 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 male presents to the ED today due to right foot and ankle injury. Patient fell and injured his right foot and ankle about 3:30 p.m. today. He is able to bear weight. He does have some swelling. He did not take anything for pain. He denies any other injury. He is not on any blood thinners. He has no numbness or tingling.. He has abrasion over knee but does no bother him He has no pain over knee. His tetanus is up to date per him Patient can not take anti-inflammatories because he is a transplant patient Review of Systems: Review of Systems Constitutional: Negative. Musculoskeletal: Positive for joint swelling. Negative for back pain, gait problem, myalgias, neck pain and neck stiffness. Ankle and foot pain Skin: Negative. Neurological: Negative for weakness and numbness. All other systems reviewed and are negative. 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 Chronic kidney disease, stage 4, severely decreased GFR dialysis 3x weekly Depression 2010 1 suicide attempt in 2010 Diverticulosis Dry skin severe dry skin on bottom of bilateral feet - cracked heels ESRD on dialysis 02/22/2011 Fatigue GERD (gastroesophageal reflux disease) Hyperparathyroidism, secondary renal Hyperphosphatemia Inguinal hernia Insomnia Kidney transplant recipient Migraine Night muscle spasms Obesity (BMI 30-39.9) Obesity, Class III, BMI 40-49.9 (morbid obesity) 01/29/2019 DEMI on CPAP Osteoarthritis of knee Polycystic kidney disease 1999 Snoring Umbilical hernia not yet repaired Past Surgical History: Past Surgical History: Procedure Laterality Date NEPHRECTOMY OPEN Bilateral 01/23/2022 Laterality: Bilateral; Surgeon: Charley Mccracken MD, PhD; Location: [facility] MAIN OR NEPHRECTOMY 2021 APPENDECTOMY LAPAROSCOPIC N/A 12/26/2019 Laterality: N/A; Surgeon: Rosy Lynn DO; Location: [facility] MAIN OR GASTRECTOMY LONGITUDINAL (SLEEVE) LAPAROSCOPIC N/A 08/10/2019 Laterality: N/A; Surgeon: Saira Moore MD; Location: [facility] SAME DAY SURGERY MAIN OR EGD DIAGNOSTIC N/A 08/10/2019 Laterality: N/A; Surgeon: Saira Moore MD; Location: [facility] SAME DAY SURGERY MAIN OR EGD DIAGNOSTIC N/A 04/24/2019 Laterality: N/A; Surgeon: Nahomy Santos MD; Location: [facility] ENDOSCOPY LAPAROTOMY EXPLORATORY N/A 02/27/2019 Laterality: N/A; Surgeon: Raul Lott MD; [facility] HERNIA REPAIR 02/27/2019 REPAIR HERNIA UMBILICAL OPEN W/ MESH N/A 05/09/2017 Laterality: N/A; Surgeon: CORNEL Elizondo; Location: [facility] MAIN OR KIDNEY TRANSPLANT W/O TYONEK NEPHRECTOMY N/A 09/25/2016 Laterality: N/A; Surgeon: Jose Shaw MD; Location: [facility] MAIN OR IN KNEE SCOPE, MENISC TRANSPLANT Right 11/12/2014 right knee scope with lateral meniscus repair per Dr. Zepeda HERNIA REPAIR Right 01/08/2012 inguinal - uncomplicated HERNIA REPAIR 01/08/2012 umbilical - incarcerated CREATION ARTERIOVENOUS FISTULA W/ AUTOGENOUS GRAFT Left 2010 CREATION ARTERIOVENOUS FISTULA W/ NONAUTOGENOUS GRAFT 2010 SHOULDER SURGERY Left 2008 clavicle repair and shoulder arthroscopy CHOLECYSTECTOMY 2005 KNEE SURGERY Left 1992 arthroscopy ADENOIDECTOMY EXCISION FISTULA LACTIFEROUS DUCT TONSILLECTOMY Allergies: Allergies Allergen Reactions *Seasonal Runny Nose Medications: Patient's Medications New Prescriptions No medications on file Previous Medications ALCLOMETASONE DIPROPIONATE 0.05 % CREAM Apply to affected area 1-2 times daily when skin flared ASPIRIN 81 MG CHEW TAB CHEWABLE TABLET Chew 1 tablet daily every morning. ..Please obtain future renewals of this prescription from your primary care provider. CALCIUM CITRATE PO Take 1,200 mg by mouth 2 times daily. CARBAMAZEPINE 100 MG CHEW TAB Take 2 tablets daily in the morning and 3 tablets daily in the evening CETIRIZINE 10 MG TABLET Take 1 tablet by mouth daily. CYANOCOBALAMIN 500 MCG TABLET Take 2 tablets by mouth daily. ESCITALOPRAM 20 MG TABLET Take 1 tablet by mouth daily every morning. KETOCONAZOLE 2 % CREAM CREAM Apply to affected area up to twice daily --> okay to use every day without breaks if needed LOSARTAN 25 MG TABLET Take 1 tablet by mouth daily. MAGNESIUM OXIDE 400 (241.3 MG) MG TABLET Take 1 tablet by mouth 2 times daily. MONTELUKAST 10 MG TABLET Take 1 tablet by mouth daily. MULTIPLE VITAMINS-MINERALS (MULTIVITAMINS) CHEW TAB Chew 2 tablets daily. May take pediatric or adult chalky chewable vitamin; double the recommended daily dose. MYCOPHENOLATE SODIUM (MYFORTIC) [address] Take 3 tablets by mouth every 12 hours. OLANZAPINE 2.5 MG TABLET Take 1 tablet by mouth daily every morning. PANTOPRAZOLE (PROTONIX) [address] TABLET DR Take 1 tablet by mouth 2 times daily. PATIROMER 8.4 G PACK Take by mouth daily. PHENTERMINE HCL 8 MG TABLET 1 tab PO QD ROPINIROLE 0.5 MG TABLET Take 1 tablet by mouth at bedtime. SILDENAFIL CITRATE 100 MG TABLET Take 0.5-1 tablets by mouth as needed for Erectile Dysfunction. TACROLIMUS (PROGRAF) 1 MG CAPSULE Take 5 capsules by mouth 2 times daily. TERBINAFINE 1 % CREAM CREAM Apply to affected area (feet) twice daily Modified Medications No medications on file Discontinued Medications No medications on file Family History: Family History Problem Relation Age of Onset Kidney Disease Mother PKD; transplant Hypertension Mother Diabetes Father Diabetes Sister Alzheimer's Maternal Grandmother Other - Specify Maternal Grandfather esrd Anesth Problems Neg Hx Social History: Social History Socioeconomic History Marital status: Spouse name: Derick Number of children: 3 Years of education: 12 Highest education level: Not on file Occupational History Not on file Tobacco Use Smoking status: Former Packs/day: 1.00 Years: 20.00 Additional pack years: 0.00 Total pack years: 20.00 Types: Cigarettes Start date: 07/01/1982 Quit date: 07/01/1999 Years since quittin.7 Passive exposure: Never Smokeless tobacco: Never Vaping Use Vaping Use: Never used Substance and Sexual Activity Alcohol use: No Comment: none Drug use: Never Sexual activity: Yes Partners: Female Comment: Other Topics Concern Service Not Asked Blood Transfusions Not Asked Caffeine Concern Not Asked Occupational Exposure Not Asked Hobby Hazards Not Asked Sleep Concern Not Asked Stress Concern Not Asked Weight Concern Not Asked Special Diet Not Asked Back Care Not Asked Exercise Not Asked Bike Helmet Not Asked Seat Belt Not Asked Domestic Violence No Social History Narrative Not on file Social Determinants of Health Financial Resource Strain: Not on file Food Insecurity: Not on file Transportation Needs: Not on file Physical Activity: Not on file Stress: Not on file Social Connections: Not on file Intimate Partner Violence: Not on file Housing Stability: Not on file Physical Exam: Physical Exam Vitals and nursing note reviewed. Constitutional: General: He is not in acute distress. Appearance: He is not toxic-appearing. Musculoskeletal: Right ankle: Swelling present. No deformity, ecchymosis or lacerations. Tenderness present over the medial malleolus. No lateral malleolus, ATF ligament, AITF ligament, CF ligament, posterior TF ligament, base of 5th metatarsal or proximal fibula tenderness. Normal range of motion. Anterior drawer test negative. Normal pulse. Right Achilles Tendon: Normal. Right foot: Normal range of motion and normal capillary refill. Swelling and tenderness present. No deformity, bunion, Charcot foot, foot drop, prominent metatarsal heads, laceration, bony tenderness or crepitus. Normal pulse. Neurological: Mental Status: He is alert. Vital Signs During ED Visit Patient Vitals for the past 24 hrs: BP Temp Temp src Pulse Resp SpO2 Height 03/10/23 2311 154/70 97.4 F (36.3 C) Oral 67 20 100 % 1.702 m (5' 7 ) Orders/Results: Orders Placed This Encounter XR FOOT RIGHT 3 VIEWS XR ANKLE RIGHT 3+ VIEWS AMB REFERRAL TO FAMILY [facility] Acetaminophen (TYLENOL) tablet 650 mg Results for orders placed or performed in visit on 01/15/23 ALBUMIN Result Value Ref Range Albumin 4.8 3.5 - 5.0 G/dl VITAMIN B12 Result Value Ref Range VITAMIN B12 630 239 - 931 PG/ML CALCIUM Result Value Ref Range CALCIUM 9.9 8.4 - 10.2 MG/DL FOLATE, SERUM Result Value Ref Range FOLATE 14.4 2.56 - 20.0 NG/ML VITAMIN A Result Value Ref Range VITAMIN A 101.1 (H) VITAMIN D (25-HYDROXY,TOTAL) Result Value Ref Range VITAMIN D 25 HYDROXY 65.9 NG/ML VITAMIN B1 Result Value Ref Range Vitamin B1, Thiamine, plasma 181.7 Radiographic Imaging XR FOOT RIGHT 3 VIEWS Final Result IMPRESSION: Radiographically negative right foot and right ankle. XR ANKLE RIGHT 3+ VIEWS Final Result IMPRESSION: Radiographically negative right foot and right ankle. Procedures: Procedures ED Summary/MDM Patient fell and injured his right foot and ankle. He is neurovascularly intact in that leg. She has an abrasion over the knee but denies any knee pain. States his tetanus immunization is up-to-date. X-ray of the ankle and foot reviewed by Radiology and myself was negative for fracture or dislocation. Patient did not want an air splint so was given Jacky wrap. He also declined crutches. He is to take Tylenol as directed as needed for pain. He is to apply ice 5 times a day 15 minutes of time as needed for pain and swelling. He is to follow up with his primary doctor. His primary doctor can decide if further imaging or physical therapy indicated. Patient is comfortable going home and understands discharge and follow-up instructions. Clinical Impression: 1. Sprain of right ankle, unspecified ligament, initial encounter 2. Sprain of right foot, initial encounter No follow-ups on file. New Prescriptions No medications on file Discontinued Medications No medications on file An After Visit Summary was printed and given to the patient with above information. . . Jackson Shaffer MD 03/11/23 0022 Has rt inner foot/ankle pain. + Rt pedal pulse, moves toes easily. Fresh Ice pack to area. documented in this encounter [facility] 03-11-2023 Hospital Discharge instructions Jackson Shaffer MD - 03/11/2023 12:16 AM EDT Call your doctor for follow-up appointment. Apply ice 5 times a day 15 minutes a time as needed for pain and swelling over the next 48 hours. Continue to wear the Jacky wrap until you follow-up with your primary doctor. You can take Tylenol 650 mg every 6 hours as needed for pain. If worsening symptoms come back to the ER. The following attachments cannot be sent through Care Everywhere.[facility] ([facility]) ([place])Ankle Sprain ([place])Ankle Sprain: Rehab Exercises ([place])RICE: General Info ([place])documented in this encounter [facility] 03-10-2023 Physician Emergency department Note Emergency Department Report [facility] EMERGENCY MEDICINE Service Date:.03/11/23 PCP: Mariana Miranda Chief Complaint: Chief Complaint Patient presents with Foot Pain Fell and injured inside of right foot at 1530 today. 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 male presents to the ED today due to right foot and ankle injury. Patient fell and injured his right foot and ankle about 3:30 p.m. today. He is able to bear weight. He does have some swelling. He did not take anything for pain. He denies any other injury. He is not on any blood thinners. He has no numbness or tingling.. He has abrasion over knee but does no bother him He has no pain over knee. His tetanus is up to date per him Patient can not take anti-inflammatories because he is a transplant patient Review of Systems: Review of Systems Constitutional: Negative. Musculoskeletal: Positive for joint swelling. Negative for back pain, gait problem, myalgias, neck pain and neck stiffness. Ankle and foot pain Skin: Negative. Neurological: Negative for weakness and numbness. All other systems reviewed and are negative. 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 Chronic kidney disease, stage 4, severely decreased GFR dialysis 3x weekly Depression 2010 1 suicide attempt in 2010 Diverticulosis Dry skin severe dry skin on bottom of bilateral feet - cracked heels ESRD on dialysis 02/22/2011 Fatigue GERD (gastroesophageal reflux disease) Hyperparathyroidism, secondary renal Hyperphosphatemia Inguinal hernia Insomnia Kidney transplant recipient Migraine Night muscle spasms Obesity (BMI 30-39.9) Obesity, Class III, BMI 40-49.9 (morbid obesity) 01/29/2019 DEMI on CPAP Osteoarthritis of knee Polycystic kidney disease 1999 Snoring Umbilical hernia not yet repaired Past Surgical History: Past Surgical History: Procedure Laterality Date NEPHRECTOMY OPEN Bilateral 01/23/2022 Laterality: Bilateral; Surgeon: Charley Mccracken MD, PhD; Location: [facility] MAIN OR NEPHRECTOMY 2021 APPENDECTOMY LAPAROSCOPIC N/A 12/26/2019 Laterality: N/A; Surgeon: Rosy Lynn DO; Location: [facility] MAIN OR GASTRECTOMY LONGITUDINAL (SLEEVE) LAPAROSCOPIC N/A 08/10/2019 Laterality: N/A; Surgeon: Saira Moore MD; Location: [facility] SAME DAY SURGERY MAIN OR EGD DIAGNOSTIC N/A 08/10/2019 Laterality: N/A; Surgeon: Saira Moore MD; Location: [facility] SAME DAY SURGERY MAIN OR EGD DIAGNOSTIC N/A 04/24/2019 Laterality: N/A; Surgeon: Nahomy Santos MD; Location: [facility] ENDOSCOPY LAPAROTOMY EXPLORATORY N/A 02/27/2019 Laterality: N/A; Surgeon: Raul Lott MD; [facility] HERNIA REPAIR 02/27/2019 REPAIR HERNIA UMBILICAL OPEN W/ MESH N/A 05/09/2017 Laterality: N/A; Surgeon: CORNEL Elizondo; Location: [facility] MAIN OR KIDNEY TRANSPLANT W/O TYONEK NEPHRECTOMY N/A 09/25/2016 Laterality: N/A; Surgeon: Jose Shaw MD; Location: [facility] MAIN OR IN KNEE SCOPE, MENISC TRANSPLANT Right 11/12/2014 right knee scope with lateral meniscus repair per Dr. eZpeda HERNIA REPAIR Right 01/08/2012 inguinal - uncomplicated HERNIA REPAIR 01/08/2012 umbilical - incarcerated CREATION ARTERIOVENOUS FISTULA W/ AUTOGENOUS GRAFT Left 2009 CREATION ARTERIOVENOUS FISTULA W/ NONAUTOGENOUS GRAFT 2010 SHOULDER SURGERY Left 2007 clavicle repair and shoulder arthroscopy CHOLECYSTECTOMY 2005 KNEE SURGERY Left 1992 arthroscopy ADENOIDECTOMY EXCISION FISTULA LACTIFEROUS DUCT TONSILLECTOMY Allergies: Allergies Allergen Reactions *Seasonal Runny Nose Medications: Patient's Medications New Prescriptions No medications on file Previous Medications ALCLOMETASONE DIPROPIONATE 0.05 % CREAM Apply to affected area 1-2 times daily when skin flared ASPIRIN 81 MG CHEW TAB CHEWABLE TABLET Chew 1 tablet daily every morning. ..Please obtain future renewals of this prescription from your primary care provider. CALCIUM CITRATE PO Take 1,200 mg by mouth 2 times daily. CARBAMAZEPINE 100 MG CHEW TAB Take 2 tablets daily in the morning and 3 tablets daily in the evening CETIRIZINE 10 MG TABLET Take 1 tablet by mouth daily. CYANOCOBALAMIN 500 MCG TABLET Take 2 tablets by mouth daily. ESCITALOPRAM 20 MG TABLET Take 1 tablet by mouth daily every morning. KETOCONAZOLE 2 % CREAM CREAM Apply to affected area up to twice daily --> okay to use every day without breaks if needed LOSARTAN 25 MG TABLET Take 1 tablet by mouth daily. MAGNESIUM OXIDE 400 (241.3 MG) MG TABLET Take 1 tablet by mouth 2 times daily. MONTELUKAST 10 MG TABLET Take 1 tablet by mouth daily. MULTIPLE VITAMINS-MINERALS (MULTIVITAMINS) CHEW TAB Chew 2 tablets daily. May take pediatric or adult chalky chewable vitamin; double the recommended daily dose. MYCOPHENOLATE SODIUM (MYFORTIC) [address] Take 3 tablets by mouth every 12 hours. OLANZAPINE 2.5 MG TABLET Take 1 tablet by mouth daily every morning. PANTOPRAZOLE (PROTONIX) [address] TABLET DR Take 1 tablet by mouth 2 times daily. PATIROMER 8.4 G PACK Take by mouth daily. PHENTERMINE HCL 8 MG TABLET 1 tab PO QD ROPINIROLE 0.5 MG TABLET Take 1 tablet by mouth at bedtime. SILDENAFIL CITRATE 100 MG TABLET Take 0.5-1 tablets by mouth as needed for Erectile Dysfunction. TACROLIMUS (PROGRAF) 1 MG CAPSULE Take 5 capsules by mouth 2 times daily. TERBINAFINE 1 % CREAM CREAM Apply to affected area (feet) twice daily Modified Medications No medications on file Discontinued Medications No medications on file Family History: Family History Problem Relation Age of Onset Kidney Disease Mother PKD; transplant Hypertension Mother Diabetes Father Diabetes Sister Alzheimer's Maternal Grandmother Other - Specify Maternal Grandfather esrd Anesth Problems Neg Hx Social History: Social History Socioeconomic History Marital status: Spouse name: Derick Number of children: 3 Years of education: 12 Highest education level: Not on file Occupational History Not on file Tobacco Use Smoking status: Former Packs/day: 1.00 Years: 20.00 Additional pack years: 0.00 Total pack years: 20.00 Types: Cigarettes Start date: 07/01/1982 Quit date: 07/01/1999 Years since quittin.7 Passive exposure: Never Smokeless tobacco: Never Vaping Use Vaping Use: Never used Substance and Sexual Activity Alcohol use: No Comment: none Drug use: Never Sexual activity: Yes Partners: Female Comment: Other Topics Concern Service Not Asked Blood Transfusions Not Asked Caffeine Concern Not Asked Occupational Exposure Not Asked Hobby Hazards Not Asked Sleep Concern Not Asked Stress Concern Not Asked Weight Concern Not Asked Special Diet Not Asked Back Care Not Asked Exercise Not Asked Bike Helmet Not Asked Seat Belt Not Asked Domestic Violence No Social History Narrative Not on file Social Determinants of Health Financial Resource Strain: Not on file Food Insecurity: Not on file Transportation Needs: Not on file Physical Activity: Not on file Stress: Not on file Social Connections: Not on file Intimate Partner Violence: Not on file Housing Stability: Not on file Physical Exam: Physical Exam Vitals and nursing note reviewed. Constitutional: General: He is not in acute distress. Appearance: He is not toxic-appearing. Musculoskeletal: Right ankle: Swelling present. No deformity, ecchymosis or lacerations. Tenderness present over the medial malleolus. No lateral malleolus, ATF ligament, AITF ligament, CF ligament, posterior TF ligament, base of 5th metatarsal or proximal fibula tenderness. Normal range of motion. Anterior drawer test negative. Normal pulse. Right Achilles Tendon: Normal. Right foot: Normal range of motion and normal capillary refill. Swelling and tenderness present. No deformity, bunion, Charcot foot, foot drop, prominent metatarsal heads, laceration, bony tenderness or crepitus. Normal pulse. Neurological: Mental Status: He is alert. Vital Signs During ED Visit Patient Vitals for the past 24 hrs: BP Temp Temp src Pulse Resp SpO2 Height 03/10/23 2311 154/70 97.4 F (36.3 C) Oral 67 20 100 % 1.702 m (5' 7 ) Orders/Results: Orders Placed This Encounter XR FOOT RIGHT 3 VIEWS XR ANKLE RIGHT 3+ VIEWS AMB REFERRAL TO FAMILY PRACTICE Acetaminophen (TYLENOL) tablet 650 mg Results for orders placed or performed in visit on 01/15/23 ALBUMIN Result Value Ref Range Albumin 4.8 3.5 - 5.0 G/dl VITAMIN B12 Result Value Ref Range VITAMIN B12 630 239 - 931 PG/ML CALCIUM Result Value Ref Range CALCIUM 9.9 8.4 - 10.2 MG/DL FOLATE, SERUM Result Value Ref Range FOLATE 14.4 2.56 - 20.0 NG/ML VITAMIN A Result Value Ref Range VITAMIN A 101.1 (H) VITAMIN D (25-HYDROXY,TOTAL) Result Value Ref Range VITAMIN D 25 HYDROXY 65.9 NG/ML VITAMIN B1 Result Value Ref Range Vitamin B1, Thiamine, plasma 181.7 Radiographic Imaging XR FOOT RIGHT 3 VIEWS Final Result IMPRESSION: Radiographically negative right foot and right ankle. XR ANKLE RIGHT 3+ VIEWS Final Result IMPRESSION: Radiographically negative right foot and right ankle. Procedures: Procedures ED Summary/MDM Patient fell and injured his right foot and ankle. He is neurovascularly intact in that leg. She has an abrasion over the knee but denies any knee pain. States his tetanus immunization is up-to-date. X-ray of the ankle and foot reviewed by Radiology and myself was negative for fracture or dislocation. Patient did not want an air splint so was given Jacky wrap. He also declined crutches. He is to take Tylenol as directed as needed for pain. He is to apply ice 5 times a day 15 minutes of time as needed for pain and swelling. He is to follow up with his primary doctor. His primary doctor can decide if further imaging or physical therapy indicated. Patient is comfortable going home and understands discharge and follow-up instructions. Clinical Impression: 1. Sprain of right ankle, unspecified ligament, initial encounter 2. Sprain of right foot, initial encounter No follow-ups on file. New Prescriptions No medications on file Discontinued Medications No medications on file An After Visit Summary was printed and given to the patient with above information. . . Jackson Shaffer MD 03/11/23 0022 [facility] 03-10-2023 Emergency department Note Has rt inner foot/ankle pain. + Rt pedal pulse, moves toes easily. Fresh Ice pack to area. [facility] 12-10-2022 History of Present illness Narrative Comprehensive Weight [facility] Program Clinic Follow-Up Visit: CC: Follow-up (Here to discuss weight loss medication. Had sleeve 2020. Kidney transplant recipient. Does cardio/weight lifting 3x weekly. Tries to follow low CHO meal plan. Gets 60 gm protein daily and drinks > 60 oz fluid daily. Weight has increased 11# since 11/15/22.) Subjective: HPI: Visit conducted today for weight management follow-up. Specific concerns identified today include: for surgical follow up s/p. Gaining weight based available information. Side Effects: Advocates: n/a Increasing omeprazole not helpful,still up several nights a week, even vomiting at times. Habit to avoid any intake after 7 p.m with bedtime 10 p.m. Current use of weight loss tools: Bariatric Surgery: vertical sleeve gastrectomy Medication: phentermine (Adipex/Lomaira) started 12/10/22 with low dose to be used intentionally. Prior relevant medication history: Goals from last visit: updates in bold Doing well with goals. for patients with history of bariatric surgery: No problems updated. Total weight loss since surgery: Patient reports a weight management goal of: BMI Readings from Last 1 Encounters: 12/10/22 37.79 kg/m Wt Readings from Last 3 Encounters: 12/10/22 109.5 kg (241 lb 4.8 oz) 11/05/22 104.3 kg (230 lb) 10/29/22 108.1 kg (238 lb 6.4 oz) ROS: Constitutional: denies recent acute illness, fever or chills and denies fatigue; Hydration/Nutrition: is drinking > 64 oz fluids; is eating > 60 grm protein daily; is not tracking intake. Activity: doing physical activity outside of ADLs 3 days per week; cardio - elliptical aim for 1.5 miles and also weights Supplements: per med list CV: Negative for chest pain, palpitations Resp: Negative for new SOB, dyspnea GI: Negative for abdominal pain, nausea , vomiting, diarrhea, constipation, flushing and dumping; Advocates: GERD: severe (heartburn/regurgitation/atypical GERD) > 50% of days; taking Omeprazola and increased to BID without improvement. : Negative for history kidney stones, abnormal kidney function; contraception plan as noted above. Neur: Negative for numbness, tingling, history seizures Psych: Negative for untreated or new anxiety, depression, states stress is managed well. Social History Tobacco Use Smoking status: Former Packs/day: 1.00 Years: 20.00 Total pack years: 20.00 Types: Cigarettes Start date: 07/01/1982 Quit date: 07/01/1999 Years since quittin.4 Passive exposure: Never Smokeless tobacco: Never Substance Use Topics Alcohol use: No Comment: none I have reviewed the patient's medical history in detail. ECG from 01/04/22 reviewed and acceptable. Sinus gorge at 51 with poss LVH per voltage criteria (h/o DEMI) Objective: BP 142/74 Pulse 65 Temp 97.6 F (36.4 C) (Oral) Resp 16 Ht 1.702 m (5' 7 ) Wt 109.5 kg (241 lb 4.8 oz) BMI 37.79 kg/m Smoking Status Former Body mass index is 37.79 kg/m . 109.5 kg (241 lb 4.8 oz) Exam: Constitutional: in no apparent distress, well developed and well nourished, alert and oriented times 3; Grooming: appropriate Cardiovascular: Normal rate, S1 and S2, No murmur heard. Pulmonary/Chest: Effort normal and no respiratory distress. Breath sounds normal. No wheezes. No rales. Musculoskeletal: Ambulates without assistance. Grossly normal range of motion. Neurological: alert, oriented, cooperative, without focal abnormalities. Skin: Skin is warm, dry and intact. Psychiatric: Appropriate mood and affect for the clinical situation. If medication for weight loss was provided, patient currently meets criteria for weight loss medication use. Impression: Obesity with a history of bariatric surgery who has no contraindications to medication to promote weight loss as an adjunct to diet and exercise. We've identified the tools and goals listed below. Plan: 1. Rx for phentermine 4 - 8 mg PO 1 times a day month # 1 Protonix (pantoprazole). Encouraged vitamin/mineral supplement use as appropriate. 2. no lab studies available for review at time of visit. Continue following with Mariana Miranda to discuss preventive health recommendations. 3. Goals as identified below. See AVS/MyChart for patient education. Follow up: in 6 week(s) via Epic video visit I have counseled the patient on weight loss options and have reviewed the current nutrition and physical activity plan. We discussed criteria, efficacy, side effects and cost for use of medication for weight loss when indicated & when applicable [place]ARRS was reviewed. Goals as of 12/10/22: To reach my health goal(s) I will aim to do the following: Nutrition - I will continue to be mindful and eat the way we were Fluid intake - I will stay hydrated, trying to include water with gatorade low olga and decaf tea and coffee Physical activity - I will keep doing elliptical and weight training Behavior / stress - I will pay attention to this. Sleep - I will make time for rest and I will trial changing to protonix to see if this allows me better rest at night. ACTIVITY TIME Direct communication with the patient 23 minutes Other patient care activities related to this service including chart/data review, coordination of care, and/or preparation of documentation. 5 minutes Total time spent on this service. 28 minutes documented in this encounter [facility] 10-29-2022 History of Present illness Narrative History of Present Illness Dog Bite Onset: Saturday the . Bite by own dog (age 14), up to date with rabies vaccination. Location: in between 2nd and third digits. Patient tried to get dog on bed and and reached for his collar and dog bit him. Aggravating factors: when fingers. Has been lisa taping 2nd and third digits. Sensitive to heat. Relieving factors: Tylenol and lisa taping. Also on Augmentin. Associated s/sx: heat to palm and some discomfort (relieved with Tylenol). Four stiches were placed on 10/24/2022. Started with infective s/sx on 10/26/2022 and was given a Rocephin injection and Augmentin. Area was marked and continued to spread so was seen in ER 10/27/2022 ad nothing was done. Area is looking a lot better. Still has 1 week left on ATB. Review of Systems Vitals: Blood pressure 116/58, pulse 71, temperature 97.5 F (36.4 C), temperature source Temporal, resp. rate 18, height 1.702 m (5' 7 ), weight 108.1 kg (238 lb 6.4 oz), SpO2 97 %. Constitutional: Negative for chills, fatigue and fever. 14 lb weight increase since in last HENT: Positive for rhinorrhea. Negative for congestion, ear pain, sinus pressure, sinus pain, sneezing and sore throat. Eyes: Negative for pain, redness and itching. Respiratory: Negative for cough, chest tightness and shortness of breath. Cardiovascular: Positive for leg swelling (chronic and unchanged). Negative for chest pain and palpitations. Gastrointestinal: Positive for diarrhea (with ATB and new medication). Negative for abdominal pain, blood in stool and nausea. Genitourinary: Negative for decreased urine volume, dysuria, frequency and hematuria. Musculoskeletal: Negative for arthralgias, back pain, myalgias and neck pain. Skin: Positive for wound (dog bite). Negative for rash. Neurological: Negative for dizziness, seizures, light-headedness and headaches. Hematological: Does not bruise/bleed easily. Psychiatric/Behavioral: Negative for sleep disturbance.declines anxiety or depression. Physical Exam Eyes: Conjunctiva/sclera: Right eye: Right conjunctiva is injected. No chemosis, exudate or hemorrhage. Constitutional: General: He is not in acute distress. Appearance: Normal appearance. He is obese. He is not ill-appearing, toxic-appearing or diaphoretic. Psychiatric: Behavior: Behavior is cooperative. Neck: Normal range of motion. Neck supple. Cardiovascular: Normal rate, regular rhythm, S1 normal, S2 normal and intact distal pulses. Murmur heard. Systolic murmur is present with a grade of 2/6 Pulmonary/Chest: Effort normal and breath sounds normal. Abdominal: Soft. Normal appearance and bowel sounds are normal. There is no tenderness. There is no rebound and no CVA tenderness. Surgical scars throughout abdomen. Healed well. Lymphadenopathy: Head (right side): No submental, no submandibular and no tonsillar adenopathy present. Head (left side): No submental, no submandibular and no tonsillar adenopathy present. Right cervical: No superficial cervical adenopathy present. Left cervical: No superficial cervical adenopathy present. Right: No supraclavicular adenopathy present. Left: No supraclavicular adenopathy present. Neurological: He is oriented to person, place, and time. He has normal reflexes. Skin: Skin is warm, dry and intact. No abrasion and no bruising noted. 5 cm, sutured laceration (4 sutures noted) in between the 2nd and third digits of the right dorsal hand. No drainage and minimal surrounding redness right around the wound. No swelling up into wrist or arm as it was before. Healing well. Psychiatric: Memory and affect normal. His mood appears not anxious. He does not exhibit a depressed mood. Mental Status Oriented to person, place, and time. Assessment and Plan Dog Bite/Wound F/U: reviewed all recent ED and urgent care notations. Area healing well with almost complete resolution of redness previously seen. Will finish off course with Augmentin and to scheduled for November 07 for suture removal. Encouraged on continuing with lisa taping and encouraged on steri-strip. Will F/U as needed. To call/return if s/sx persist/worsen. documented in this encounter [facility] 10-26-2022 History of Present illness Narrative Images from the original note were not included. Patient Name: [facility] Location: [address] [facility] [id number] Date Of : Date Of Visit: 1965 10/26/2022 MRN# Provider: [id number] Mary Moreira PA-C Chief Complaint Patient presents with Wound Check Patient got bit by a dog on 10/24, went to ER they closed with stitches, now his entire right hand is swollen going up past his wrist with increased pain in the palm Assessment & Plan 1. Dog bite of right hand with infection, initial encounter No follow-ups on file. Medical Decision Making He has now developed an infected dog bite with lymphangitis. The pharmacies are closed at this time of night. I did go ahead and give him 1 g of Rocephin IM in the clinic today. Augmentin 875 twice daily for 10 days is sent to the local pharmacy and this will be started tomorrow morning. I did go ahead and brad the limits of the redness and swelling. If this is significantly worse tomorrow morning on awakening I would recommend he go to the emergency department for possible IV antibiotics. Subjective 57 y.o. male presents with Wound Check (Patient got bit by a dog on 10/24, went to ER they closed with stitches, now his entire right hand is swollen going up past his wrist with increased pain in the palm) 3 days ago he was bitten on his right hand by a dog that he knew. He presented to [facility] ED in [place]. The ED provider sutured a wound between his second and third interspace. Patient was then discharged. He was not placed on any antibiotics. Over the past 36 hours he has had increased pain, redness and swelling of the right hand and now he has some red streaks going up his right arm. He denies fever or chill. Review Of Systems Review of Systems Constitutional: Negative for chills, fatigue and fever. HENT: Negative for congestion, rhinorrhea, sinus pressure and sore throat. Eyes: Negative for redness. Respiratory: Negative for cough and shortness of breath. Cardiovascular: Negative for chest pain. Gastrointestinal: Negative for abdominal pain, diarrhea, nausea and vomiting. Genitourinary: Negative for dysuria. Musculoskeletal: Negative for arthralgias. Skin: Positive for wound. Negative for rash. Neurological: Negative for dizziness. Medical History History reviewed. No pertinent past medical history. Past Surgical History: Procedure Laterality Date NEPHRECTOMY PT HAD KIDNEY TRANSPLANT There is no problem list on file for this patient. Social History Social History Tobacco Use Smoking status: Former Types: Cigarettes Smokeless tobacco: Never Vaping Use Vaping status: Never Used Substance Use Topics Alcohol use: Not Currently Drug use: Not Currently Family History History reviewed. No pertinent family history. Objective Physical Exam BP 122/75 Pulse 74 Temp 98.6 F (37 C) (Tympanic) Resp 18 Ht 5' 7 Wt 110.1 kg (242 lb 11.2 oz) SpO2 93% BMI 38.01 kg/m Vision/Hearing Exam:No results found. Physical Exam Vitals and nursing note reviewed. Skin: Comments: NoseExamination of the right upper extremity and infected dog bite on the right hand dorsally. There is redness and swelling of the hand. This redness is extending up onto the dorsal aspect of the right wrist. He also has red streaks extending on the volar surface of the wrist up through the antecubital area into the bicep area. There is no obvious abscess at the sutured wound. Procedure Notes Procedures Results No results found for this or any previous visit (from the past 168 hour(s)). No orders to display Orders Placed This Visit No orders of the defined types were placed in this encounter. Medication List At End Of Visit Current Outpatient Medications Medication Sig Dispense Refill acetaminophen (TYLENOL) 325 MG tablet Take 3 (three) tablets (975 mg total) by mouth every 8 (eight) hours . alclometasone (ACLOVATE) 0.05 % cream Apply to affected area 1-2 times daily when skin flared aspirin 81 mg chewable tablet Chew and Swallow 1 (one) tablet (81 mg total) every morning . carBAMazepine (TEGretol) 100 mg chewable tablet Take 2 tablets daily in the morning and 3 tablets daily in the evening cetirizine (ZYRTEC) 10 MG tablet Take 1 (one) tablet (10 mg total) by mouth daily . cyanocobalamin (B-12) 500 MCG tablet Take 2 (two) tablets (1,000 mcg total) by mouth daily . escitalopram oxalate (LEXAPRO) 20 MG tablet Take 1 (one) tablet (20 mg total) by mouth every morning . ketoconazole (NIZORAL) 2 % cream Apply to affected area up to twice daily --> okay to use every day without breaks if needed losartan (COZAAR) 25 MG tablet Take 1 (one) tablet (25 mg total) by mouth daily . montelukast (SINGULAIR) 10 mg tablet Take 1 (one) tablet (10 mg total) by mouth daily . mycophenolate sodium (MYFORTIC) 180 MG EC tablet Take 3 (three) tablets (540 mg total) by mouth every 12 (twelve) hours . OLANZapine (ZYPREXA) 2.5 MG tablet Take 1 (one) tablet (2.5 mg total) by mouth every morning . omeprazole (PRILOSEC) 40 MG capsule Take 1 (one) capsule (40 mg total) by mouth daily . sildenafiL (VIAGRA) 100 MG tablet Take 0.5 (one-half) tablet to 1 (one) tablet (50-100 mg total) by mouth as needed . tacrolimus (PROGRAF) 1 MG capsule Take 5 (five) capsules (5 mg total) by mouth 2 (two) times a day . testosterone cypionate (DEPOTESTOTERONE CYPIONATE) 200 mg/mL injection Inject 1 mL (200 mg total) as directed every 28 days . albuterol 90 mcg/actuation inhaler Inhale 2 (two) puffs every 6 (six) hours as needed for wheezing . 6.7 g 0 amoxicillin-clavulanate (AUGMENTIN) 875-125 mg per tablet Take 1 (one) tablet by mouth 2 (two) times a day . 20 tablet 0 Current Facility-Administered Medications Medication Dose Route Frequency Provider Last Rate Last Admin cefTRIAXone (ROCEPHIN) injection 1,000 mg 1,000 mg Intramuscular Once Mary Moreira PA-C There are no Patient Instructions on file for this visit. documented in this encounter [facility] 10-24-2022 Emergency department Note Triple antibiotic ointment applied to laceration post suture. Non-stick dressing applied and wrapped with kerlix [facility] 10-24-2022 Emergency department Note Triple antibiotic ointment applied to laceration post suture. Non-stick dressing applied and wrapped with kerlix Cleansed laceration with hibiclens and sterile water, bleeding controlled. Emergency Department Report [facility] EMERG[facility] Service Date:.10/24/22 PCP: Mariana A Janet Chief Complaint: No chief complaint on file. HPI Zoie Heath is a 57 y.o. male presents to the ED with chief complaint of laceration to the right hand. States this morning he got cut in his basement around 645. He sustained a laceration to the back of right hand between the 2nd and 3rd digits. He states there is no foreign bodies no glass. He states his last tetanus shot was 4 years ago. He is right-hand dominant. He denies any crush injury or potential fracture. He denies any bleeding disorders or being on blood thinning medications. He denies any numbness or tingling to the fingers. 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 Chronic kidney disease, stage 4, severely decreased GFR dialysis 3x weekly Depression 2010 1 suicide attempt in 2010 Diverticulosis Dry skin severe dry skin on bottom of bilateral feet - cracked heels ESRD on dialysis 02/22/2011 Fatigue GERD (gastroesophageal reflux disease) Hyperparathyroidism, secondary renal Hyperphosphatemia Inguinal hernia Insomnia Kidney transplant recipient Migraine Night muscle spasms Obesity (BMI 30-39.9) Obesity, Class III, BMI 40-49.9 (morbid obesity) 01/29/2019 DEMI on CPAP Osteoarthritis of knee Polycystic kidney disease 1999 Snoring Umbilical hernia not yet repaired Past Surgical History: Past Surgical History: Procedure Laterality Date NEPHRECTOMY OPEN Bilateral 01/23/2022 Laterality: Bilateral; Surgeon: Charley Mccracken MD, PhD; Location: [facility] MAIN OR APPENDECTOMY LAPAROSCOPIC N/A 12/26/2019 Laterality: N/A; Surgeon: Rosy Lynn DO; Location: [facility] MAIN OR GASTRECTOMY LONGITUDINAL (SLEEVE) LAPAROSCOPIC N/A 08/10/2019 Laterality: N/A; Surgeon: Saira Moore MD; Location: [facility] SAME DAY SURGERY MAIN OR EGD DIAGNOSTIC N/A 08/10/2019 Laterality: N/A; Surgeon: Saira Moore MD; Location: [facility] SAME DAY SURGERY MAIN OR EGD DIAGNOSTIC N/A 04/24/2019 Laterality: N/A; Surgeon: Nahomy Santos MD; Location: [facility] ENDOSCOPY LAPAROTOMY EXPLORATORY N/A 02/27/2019 Laterality: N/A; Surgeon: Raul Lott MD; Location: [facility] MAIN OR HERNIA REPAIR 02/27/2019 REPAIR HERNIA UMBILICAL OPEN W/ MESH N/A 05/09/2017 Laterality: N/A; Surgeon: CORNEL Elizondo; Location: [facility] MAIN OR KIDNEY TRANSPLANT W/O TYONEK NEPHRECTOMY N/A 09/25/2016 Laterality: N/A; Surgeon: Jose Shaw MD; Location: [facility] MAIN OR IN KNEE SCOPE, MENISC TRANSPLANT Right 11/12/2014 right knee scope with lateral meniscus repair per Dr. Zepeda HERNIA REPAIR Right 01/08/2012 inguinal - uncomplicated HERNIA REPAIR 01/08/2012 umbilical - incarcerated CREATION ARTERIOVENOUS FISTULA W/ AUTOGENOUS GRAFT Left 2010 CREATION ARTERIOVENOUS FISTULA W/ NONAUTOGENOUS GRAFT 2010 SHOULDER SURGERY Left 2007 clavicle repair and shoulder arthroscopy CHOLECYSTECTOMY 2004 KNEE SURGERY Left 1992 arthroscopy ADENOIDECTOMY EXCISION FISTULA LACTIFEROUS DUCT TONSILLECTOMY Allergies: Allergies Allergen Reactions *Seasonal Runny Nose Medications: Patient's Medications New Prescriptions No medications on file Previous Medications ACETAMINOPHEN 325 MG TABLET Take 3 tablets by mouth every 8 hours for 5 days. ALCLOMETASONE DIPROPIONATE 0.05 % CREAM Apply to affected area 1-2 times daily when skin flared ASPIRIN 81 MG CHEW TAB CHEWABLE TABLET Chew 1 tablet daily every morning. ..Please obtain future renewals of this prescription from your primary care provider. CALCIUM CITRATE PO Take 1,200 mg by mouth 2 times daily. CARBAMAZEPINE 100 MG CHEW TAB Take 2 tablets daily in the morning and 3 tablets daily in the evening CETIRIZINE 10 MG TABLET Take 1 tablet by mouth daily. CYANOCOBALAMIN 500 MCG TABLET Take 2 tablets by mouth daily. ESCITALOPRAM 20 MG TABLET Take 1 tablet by mouth daily every morning. KETOCONAZOLE 2 % CREAM CREAM Apply to affected area up to twice daily --> okay to use every day without breaks if needed LOSARTAN 25 MG TABLET Take 1 tablet by mouth daily. MAGNESIUM OXIDE 400 (241.3 MG) MG TABLET Take 1 tablet by mouth 2 times daily. MONTELUKAST 10 MG TABLET Take 1 tablet by mouth daily. MULTIPLE VITAMINS-MINERALS (MULTIVITAMINS) CHEW TAB Chew 2 tablets daily. May take pediatric or adult chalky chewable vitamin; double the recommended daily dose. MYCOPHENOLATE SODIUM (MYFORTIC) [address] Take 3 tablets by mouth every 12 hours. OFLOXACIN 0.3 % OPHTHALMIC SOLUTION Place 1 drop in right eye 4 times daily. OLANZAPINE 2.5 MG TABLET Take 1 tablet by mouth daily every morning. OMEPRAZOLE [address] CAPSULE Take 1 capsule by mouth daily. Please call in May to schedule follow up in Aug 2021. Scheduling phone [phone] OMEPRAZOLE [address] CAPSULE Take 1 capsule by mouth daily. ROPINIROLE 0.5 MG TABLET Take 0.5 mg by mouth at bedtime. SILDENAFIL CITRATE 100 MG TABLET Take 0.5-1 tablets by mouth as needed for Erectile Dysfunction. TACROLIMUS (PROGRAF) 1 MG CAPSULE Take 5 capsules by mouth 2 times daily. TERBINAFINE 1 % CREAM CREAM Apply to affected area (feet) twice daily TESTOSTERONE CYPIONATE 200 MG/ML SOLUTION Inject 200 mg as directed every 28 days. Modified Medications No medications on file Discontinued Medications No medications on file Family History: Family History Problem Relation Age of Onset Kidney Disease Mother PKD; transplant Hypertension Mother Diabetes Father Diabetes Sister Alzheimer's Maternal Grandmother Other - Specify Maternal Grandfather esrd Anesth Problems Neg Hx Social History: Social History Socioeconomic History Marital status: Spouse name: Derick Number of children: 3 Years of education: 12 Highest education level: Not on file Occupational History Not on file Tobacco Use Smoking status: Former Packs/day: 1.00 Years: 20.00 Pack years: 20.00 Types: Cigarettes Start date: 07/01/1982 Quit date: 07/01/1999 Years since quittin.3 Smokeless tobacco: Never Vaping Use Vaping Use: Never used Substance and Sexual Activity Alcohol use: No Comment: none Drug use: Never Sexual activity: Not on file Other Topics Concern Service Not Asked Blood Transfusions Not Asked Caffeine Concern Not Asked Occupational Exposure Not Asked Hobby Hazards Not Asked Sleep Concern Not Asked Stress Concern Not Asked Weight Concern Not Asked Special Diet Not Asked Back Care Not Asked Exercise Not Asked Bike Helmet Not Asked Seat Belt Not Asked Domestic Violence No Social History Narrative Not on file Social Determinants of Health Financial Resource Strain: Not on file Food Insecurity: Not on file Transportation Needs: Not on file Physical Activity: Not on file Stress: Not on file Social Connections: Not on file Intimate Partner Violence: Not on file Housing Stability: Not on file Physical Exam: Physical Exam General: Well-nourished well-developed nontoxic HENT: Head is. Face is symmetric. Mucous membranes are hydrated Skin: 5 cm laceration noted between the 1st and 2nd digits of the right hand. No foreign body. No injury to the nail beds or tips of the digits Neurologic: Intact sensation to the tips of the digits of the right hand. Hand grasp is strong Lymphatic: No lymphangitis Musculoskeletal: No trauma fracture or deformity noted Psychiatric: Cooperative with examiner Vital Signs During ED Visit No data found. Orders/Results: No results found for this visit on 10/24/22. Radiographic Imaging No orders to display Procedures: Laceration repair Procedures Patient was prepped and draped in a sterile fashion. The wound had been cleaned by nursing staff. 1% lidocaine was instilled into the wound margins. The entire length of laceration was 2.5 cm. The wound was explored. No foreign bodies were seen. The wound was then brought together using 4 0 Ethilon suture. Closure required 4 simple interrupted sutures. Good wound approximation was maintained. Moderate Sedation Procedure: No ED Summary/MDM Patient was placed in sterile dressing. He is to have the sutures removed in the next 14 days. He is return if any worsening symptoms or any signs of infection. Keep the area clean. Clinical Impression: No diagnosis found. No follow-ups on file. New Prescriptions No medications on file Discontinued Medications No medications on file An After Visit Summary was printed and given to the patient with above information. . Elizabeth Hernadez MD 10/24/22 0731 documented in this encounter [facility] 10-24-2022 Emergency department Note Cleansed laceration with hibiclens and sterile water, bleeding controlled. [facility] 10-24-2022 Physician Emergency department Note Emergency Department Report [facility] Service Date:.10/24/22 PCP: Mariana Miranda Chief Complaint: No chief complaint on file. HPI Zoie Heath is a 57 y.o. male presents to the ED with chief complaint of laceration to the right hand. States this morning he got cut in his basement around 645. He sustained a laceration to the back of right hand between the 2nd and 3rd digits. He states there is no foreign bodies no glass. He states his last tetanus shot was 4 years ago. He is right-hand dominant. He denies any crush injury or potential fracture. He denies any bleeding disorders or being on blood thinning medications. He denies any numbness or tingling to the fingers. 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 Chronic kidney disease, stage 4, severely decreased GFR dialysis 3x weekly Depression 2010 1 suicide attempt in 2010 Diverticulosis Dry skin severe dry skin on bottom of bilateral feet - cracked heels ESRD on dialysis 02/22/2011 Fatigue GERD (gastroesophageal reflux disease) Hyperparathyroidism, secondary renal Hyperphosphatemia Inguinal hernia Insomnia Kidney transplant recipient Migraine Night muscle spasms Obesity (BMI 30-39.9) Obesity, Class III, BMI 40-49.9 (morbid obesity) 01/29/2019 DEMI on CPAP Osteoarthritis of knee Polycystic kidney disease 1999 Snoring Umbilical hernia not yet repaired Past Surgical History: Past Surgical History: Procedure Laterality Date NEPHRECTOMY OPEN Bilateral 01/23/2022 Laterality: Bilateral; Surgeon: Charley Mccracken MD, PhD; Location: [facility] MAIN OR APPENDECTOMY LAPAROSCOPIC N/A 12/26/2019 Laterality: N/A; Surgeon: Rosy Lynn DO; Location: [facility] MAIN OR GASTRECTOMY LONGITUDINAL (SLEEVE) LAPAROSCOPIC N/A 08/10/2019 Laterality: N/A; Surgeon: Saira Moore MD; Location: [facility] SAME DAY SURGERY MAIN OR EGD DIAGNOSTIC N/A 08/10/2019 Laterality: N/A; Surgeon: Saira Moore MD; Location: [facility] SAME DAY SURGERY MAIN OR EGD DIAGNOSTIC N/A 04/24/2019 Laterality: N/A; Surgeon: Nahomy Santos MD; Location: [facility] ENDOSCOPY LAPAROTOMY EXPLORATORY N/A 02/27/2019 Laterality: N/A; Surgeon: Raul Lott MD; Location: [facility] MAIN OR HERNIA REPAIR 02/27/2019 REPAIR HERNIA UMBILICAL OPEN W/ MESH N/A 05/09/2017 Laterality: N/A; Surgeon: CORNEL Elizondo; Location: [facility] MAIN OR KIDNEY TRANSPLANT W/O TYONEK NEPHRECTOMY N/A 09/25/2016 Laterality: N/A; Surgeon: Jose Shaw MD; Location: [facility] MAIN OR IN KNEE SCOPE, MENISC TRANSPLANT Right 11/12/2014 right knee scope with lateral meniscus repair per Dr. Zepeda HERNIA REPAIR Right 01/08/2012 inguinal - uncomplicated HERNIA REPAIR 01/08/2012 umbilical - incarcerated CREATION ARTERIOVENOUS FISTULA W/ AUTOGENOUS GRAFT Left 2009 CREATION ARTERIOVENOUS FISTULA W/ NONAUTOGENOUS GRAFT 2010 SHOULDER SURGERY Left 2007 clavicle repair and shoulder arthroscopy CHOLECYSTECTOMY 2004 KNEE SURGERY Left 1992 arthroscopy ADENOIDECTOMY EXCISION FISTULA LACTIFEROUS DUCT TONSILLECTOMY Allergies: Allergies Allergen Reactions *Seasonal Runny Nose Medications: Patient's Medications New Prescriptions No medications on file Previous Medications ACETAMINOPHEN 325 MG TABLET Take 3 tablets by mouth every 8 hours for 5 days. ALCLOMETASONE DIPROPIONATE 0.05 % CREAM Apply to affected area 1-2 times daily when skin flared ASPIRIN 81 MG CHEW TAB CHEWABLE TABLET Chew 1 tablet daily every morning. ..Please obtain future renewals of this prescription from your primary care provider. CALCIUM CITRATE PO Take 1,200 mg by mouth 2 times daily. CARBAMAZEPINE 100 MG CHEW TAB Take 2 tablets daily in the morning and 3 tablets daily in the evening CETIRIZINE 10 MG TABLET Take 1 tablet by mouth daily. CYANOCOBALAMIN 500 MCG TABLET Take 2 tablets by mouth daily. ESCITALOPRAM 20 MG TABLET Take 1 tablet by mouth daily every morning. KETOCONAZOLE 2 % CREAM CREAM Apply to affected area up to twice daily --> okay to use every day without breaks if needed LOSARTAN 25 MG TABLET Take 1 tablet by mouth daily. MAGNESIUM OXIDE 400 (241.3 MG) MG TABLET Take 1 tablet by mouth 2 times daily. MONTELUKAST 10 MG TABLET Take 1 tablet by mouth daily. MULTIPLE VITAMINS-MINERALS (MULTIVITAMINS) CHEW TAB Chew 2 tablets daily. May take pediatric or adult chalky chewable vitamin; double the recommended daily dose. MYCOPHENOLATE SODIUM (MYFORTIC) [address] Take 3 tablets by mouth every 12 hours. OFLOXACIN 0.3 % OPHTHALMIC SOLUTION Place 1 drop in right eye 4 times daily. OLANZAPINE 2.5 MG TABLET Take 1 tablet by mouth daily every morning. OMEPRAZOLE [address] CAPSULE Take 1 capsule by mouth daily. Please call in May to schedule follow up in Aug 2021. Scheduling phone [phone] OMEPRAZOLE [address] CAPSULE Take 1 capsule by mouth daily. ROPINIROLE 0.5 MG TABLET Take 0.5 mg by mouth at bedtime. SILDENAFIL CITRATE 100 MG TABLET Take 0.5-1 tablets by mouth as needed for Erectile Dysfunction. TACROLIMUS (PROGRAF) 1 MG CAPSULE Take 5 capsules by mouth 2 times daily. TERBINAFINE 1 % CREAM CREAM Apply to affected area (feet) twice daily TESTOSTERONE CYPIONATE 200 MG/ML SOLUTION Inject 200 mg as directed every 28 days. Modified Medications No medications on file Discontinued Medications No medications on file Family History: Family History Problem Relation Age of Onset Kidney Disease Mother PKD; transplant Hypertension Mother Diabetes Father Diabetes Sister Alzheimer's Maternal Grandmother Other - Specify Maternal Grandfather esrd Anesth Problems Neg Hx Social History: Social History Socioeconomic History Marital status: Spouse name: Derick Number of children: 3 Years of education: 12 Highest education level: Not on file Occupational History Not on file Tobacco Use Smoking status: Former Packs/day: 1.00 Years: 20.00 Pack years: 20.00 Types: Cigarettes Start date: 07/01/1982 Quit date: 07/01/1999 Years since quittin.3 Smokeless tobacco: Never Vaping Use Vaping Use: Never used Substance and Sexual Activity Alcohol use: No Comment: none Drug use: Never Sexual activity: Not on file Other Topics Concern Service Not Asked Blood Transfusions Not Asked Caffeine Concern Not Asked Occupational Exposure Not Asked Hobby Hazards Not Asked Sleep Concern Not Asked Stress Concern Not Asked Weight Concern Not Asked Special Diet Not Asked Back Care Not Asked Exercise Not Asked Bike Helmet Not Asked Seat Belt Not Asked Domestic Violence No Social History Narrative Not on file Social Determinants of Health Financial Resource Strain: Not on file Food Insecurity: Not on file Transportation Needs: Not on file Physical Activity: Not on file Stress: Not on file Social Connections: Not on file Intimate Partner Violence: Not on file Housing Stability: Not on file Physical Exam: Physical Exam General: Well-nourished well-developed nontoxic HENT: Head is. Face is symmetric. Mucous membranes are hydrated Skin: 5 cm laceration noted between the 1st and 2nd digits of the right hand. No foreign body. No injury to the nail beds or tips of the digits Neurologic: Intact sensation to the tips of the digits of the right hand. Hand grasp is strong Lymphatic: No lymphangitis Musculoskeletal: No trauma fracture or deformity noted Psychiatric: Cooperative with examiner Vital Signs During ED Visit No data found. Orders/Results: No results found for this visit on 10/24/22. Radiographic Imaging No orders to display Procedures: Laceration repair Procedures Patient was prepped and draped in a sterile fashion. The wound had been cleaned by nursing staff. 1% lidocaine was instilled into the wound margins. The entire length of laceration was 2.5 cm. The wound was explored. No foreign bodies were seen. The wound was then brought together using 4 0 Ethilon suture. Closure required 4 simple interrupted sutures. Good wound approximation was maintained. Moderate Sedation Procedure: No ED Summary/MDM Patient was placed in sterile dressing. He is to have the sutures removed in the next 14 days. He is return if any worsening symptoms or any signs of infection. Keep the area clean. Clinical Impression: No diagnosis found. No follow-ups on file. New Prescriptions No medications on file Discontinued Medications No medications on file An After Visit Summary was printed and given to the patient with above information. . Elizabeth Hernadez MD 10/24/22 0731 [facility] Work Phone: 09-03-2022 Note Addended by: ANDREW BINGHAM on: 09/03/2022 09:41 AM Modules accepted: Orders [facility] 09-03-2022 Miscellaneous Notes Addended by: ANDREW MCDUFFIE on: 09/03/2022 09:41 AM Modules accepted: Orders documented in this encounter [facility] 09-02-2022 Instructions Jasvir Vilchis CNP - 09/02/2022 1:23 PM EST Plan: Zithromax and Polytrim as prescribed. Call your equipment coordinator nurse today to notify of the new medications you are taking and inquire if any additional lab work is necessary. Make a follow up appointment with your primary care provider within 7 days for recheck. If symptoms worsen, change, or new symptoms develop go instead immediately to the nearest emergency room for further evaluation and treatment. The following attachments cannot be sent through Care Everywhere.Conjunctivitis ([place])Taking Care of [place]e at Home: Video ([place])Here's Help: How to Give Yourself Eyedrops or Eye Ointment: Video ([place])Sinusitis ([place])documented in this encounter [facility] 09-02-2022 Instructions Jasvir Vilchis CNP - 09/02/2022 1:23 PM EST Plan: Zithromax and Polytrim as prescribed. Call your equipment coordinator nurse today to notify of the new medications you are taking and inquire if any additional lab work is necessary. Make a follow up appointment with your primary care provider within 7 days for recheck. If symptoms worsen, change, or new symptoms develop go instead immediately to the nearest emergency room for further evaluation and treatment. The following attachments cannot be sent through Care Everywhere.Conjunctivitis ([place])Taking Care of [place]e at Home: Video ([place])Here's Help: How to Give Yourself Eyedrops or Eye Ointment: Video ([place])Sinusitis ([place])documented in this encounter [facility] 09-02-2022 History of Present illness Narrative Images from the original note were not included. Patient Name: [facility] Location: Zoie Heath [address] [facility] [id number] Date Of : Date Of Visit: 1965 09/02/2022 MRN# Provider: [id number] Jasvir Vilchis CNP Chief Complaint Patient presents with Illness Was seen , Pt still has runny nose, cough, woke up with matted eyes Assessment & Plan 1. Sinusitis, unspecified chronicity, unspecified location azithromycin (ZITHROMAX) 250 MG tablet 2. Acute conjunctivitis of both eyes, unspecified acute conjunctivitis type trimethoprim-polymyxin b (POLYTRIM) 10,000 unit- 1 mg/mL Drop ophthalmic solution No follow-ups on file. Medical Decision Making See HPI. See Exam findings. Vital signs reviewed. Sinus pain, pressure, drainage, cough, eye redness, matting eye discharge, eye irritation. Symptoms started few days ago and worsening. Denies sharp eye pain, vision loss, double vision. Denies any accident fall or trauma. Exam highlights: Lungs clear. Eyes reddened with drainage, sinus tenderness. No evidence of AOM. Discussion: Discussed with patient's symptoms may represent bacterial sinus infection and bacterial conjunctivitis. Patient was agreeable to try antibiotic treatment. Diagnosis sinusitis, conjunctivitis. Differential considered included bacterial sinus infection, viral sinusitis, bacterial conjunctivitis, viral conjunctivitis, acute otitis media, pneumonia, seasonal allergies. Plan: Zithromax and Polytrim as prescribed. Call your equipment coordinator nurse today to notify of the new medications you are taking and inquire if any additional lab work is necessary. Make a follow up appointment with your primary care provider within 7 days for recheck. If symptoms worsen, change, or new symptoms develop go instead immediately to the nearest emergency room for further evaluation and treatment. Prior to the conclusion of the encounter the nurse practitioner discussed with the patient the diagnosis, treatment plan, and follow up recommendation. Questions were answered until the patient expressed satisfaction that they had no further question, comment or concern. Subjective 57 y.o. male presents with Illness (Was seen , Pt still has runny nose, cough, woke up with matted eyes ) Sinus pain, pressure, drainage, cough, eye redness, matting eye discharge, eye irritation. Symptoms started few days ago and worsening. Denies sharp eye pain, vision loss, double vision. Denies any accident fall or trauma. Illness Associated symptoms include congestion, eye discharge, eye itching, eye redness, rhinorrhea, a sore throat and coughing. Pertinent negatives include no ear discharge, ear pain, stridor, fever, chest pain, shortness of breath, wheezing, diarrhea, vomiting or rash. Review Of Systems Review of Systems Constitutional: Negative for fever. HENT: Positive for congestion, postnasal drip, rhinorrhea, sinus pressure, sinus pain and sore throat. Negative for ear discharge and ear pain. Eyes: Positive for discharge, redness and itching. Respiratory: Positive for cough. Negative for shortness of breath, wheezing and stridor. Cardiovascular: Negative for chest pain and palpitations. Gastrointestinal: Negative for diarrhea and vomiting. Skin: Negative for rash. Neurological: Negative for weakness. Hematological: Negative for adenopathy. Psychiatric/Behavioral: Negative for confusion. Medical History History reviewed. No pertinent past medical history. Past Surgical History: Procedure Laterality Date NEPHRECTOMY PT HAD KIDNEY TRANSPLANT There is no problem list on file for this patient. Social History Social History Tobacco Use Smoking status: Former Types: Cigarettes Smokeless tobacco: Never Substance Use Topics Alcohol use: Not Currently Drug use: Not Currently Family History History reviewed. No pertinent family history. Objective Physical Exam BP 114/72 Pulse 86 Temp 99.6 F (37.6 C) Resp 16 Wt 106 kg (233 lb 9.6 oz) SpO2 96% BMI 36.59 kg/m Vision/Hearing Exam:No results found. Physical Exam Constitutional: General: He is not in acute distress. Appearance: Normal appearance. He is not toxic-appearing. HENT: Head: Normocephalic and atraumatic. Right Ear: Tympanic membrane, ear canal and external ear normal. Left Ear: Tympanic membrane, ear canal and external ear normal. Nose: No congestion or rhinorrhea. Right Sinus: Maxillary sinus tenderness present. Left Sinus: Maxillary sinus tenderness present. Mouth/Throat: Mouth: Mucous membranes are moist. Pharynx: No oropharyngeal exudate or posterior oropharyngeal erythema. Eyes: General: Lids are everted, no foreign bodies appreciated. Vision grossly intact. No allergic shiner, visual field deficit or scleral icterus. Right eye: No foreign body or hordeolum. Left eye: No foreign body or hordeolum. Extraocular Movements: Extraocular movements intact. Conjunctiva/sclera: Right eye: Right conjunctiva is injected. Exudate present. No chemosis or hemorrhage. Left eye: Left conjunctiva is injected. Exudate present. No chemosis or hemorrhage. Pupils: Pupils are equal, round, and reactive to light. Funduscopic exam: Right eye: No papilledema. Red reflex present. Left eye: No papilledema. Red reflex present. Cardiovascular: Rate and Rhythm: Normal rate. Pulmonary: Effort: Pulmonary effort is normal. No respiratory distress. Abdominal: General: There is no distension. Musculoskeletal: Cervical back: Normal range of motion and neck supple. Lymphadenopathy: Cervical: No cervical adenopathy. Skin: General: Skin is warm and dry. Capillary Refill: Capillary refill takes less than 2 seconds. Coloration: Skin is not jaundiced. Neurological: General: No focal deficit present. Mental Status: He is alert and oriented to person, place, and time. Motor: No weakness. Coordination: Coordination normal. Psychiatric: Behavior: Behavior normal. Thought Content: Thought content normal. Procedure Notes Procedures Results No results found for this or any previous visit (from the past 168 hour(s)). No orders to display Orders Placed This Visit No orders of the defined types were placed in this encounter. Medication List At End Of Visit Current Outpatient Medications Medication Sig Dispense Refill acetaminophen (TYLENOL) 325 MG tablet Take 3 (three) tablets (975 mg total) by mouth every 8 (eight) hours . albuterol 90 mcg/actuation inhaler Inhale 2 (two) puffs every 6 (six) hours as needed for wheezing . 6.7 g 0 alclometasone (ACLOVATE) 0.05 % cream Apply to affected area 1-2 times daily when skin flared aspirin 81 mg chewable tablet Chew and Swallow 1 (one) tablet (81 mg total) every morning . benzonatate (TESSALON) 100 MG capsule Take 1 (one) capsule (100 mg total) by mouth 3 (three) times a day as needed for cough . 20 capsule 0 carBAMazepine (TEGretol) 100 mg chewable tablet Take 2 tablets daily in the morning and 3 tablets daily in the evening cetirizine (ZYRTEC) 10 MG tablet Take 1 (one) tablet (10 mg total) by mouth daily . cyanocobalamin (B-12) 500 MCG tablet Take 2 (two) tablets (1,000 mcg total) by mouth daily . escitalopram oxalate (LEXAPRO) 20 MG tablet Take 1 (one) tablet (20 mg total) by mouth every morning . ketoconazole (NIZORAL) 2 % cream Apply to affected area up to twice daily --> okay to use every day without breaks if needed losartan (COZAAR) 25 MG tablet Take 1 (one) tablet (25 mg total) by mouth daily . montelukast (SINGULAIR) 10 mg tablet Take 1 (one) tablet (10 mg total) by mouth daily . mycophenolate sodium (MYFORTIC) 180 MG EC tablet Take 3 (three) tablets (540 mg total) by mouth every 12 (twelve) hours . OLANZapine (ZYPREXA) 2.5 MG tablet Take 1 (one) tablet (2.5 mg total) by mouth every morning . omeprazole (PRILOSEC) 40 MG capsule Take 1 (one) capsule (40 mg total) by mouth daily . sildenafiL (VIAGRA) 100 MG tablet Take 0.5 (one-half) tablet to 1 (one) tablet (50-100 mg total) by mouth as needed . tacrolimus (PROGRAF) 1 MG capsule Take 5 (five) capsules (5 mg total) by mouth 2 (two) times a day . testosterone cypionate (DEPOTESTOTERONE CYPIONATE) 200 mg/mL injection Inject 1 mL (200 mg total) as directed every 28 days . azithromycin (ZITHROMAX) 250 MG tablet Take 2 (two) tablets (500 mg total) by mouth daily for 1 day, THEN 1 (one) tablet (250 mg total) daily for 4 days. 6 tablet 0 trimethoprim-polymyxin b (POLYTRIM) 10,000 unit- 1 mg/mL Drop ophthalmic solution Apply 1 (one) drop to eye every 6 (six) hours for 7 days . 10 mL 0 No current facility-administered medications for this visit. Patient Instructions Plan: Zithromax and Polytrim as prescribed. Call your equipment coordinator nurse today to notify of the new medications you are taking and inquire if any additional lab work is necessary. Make a follow up appointment with your primary care provider within 7 days for recheck. If symptoms worsen, change, or new symptoms develop go instead immediately to the nearest emergency room for further evaluation and treatment. documented in this encounter [facility] 09-02-2022 History of Present illness Narrative Images from the original note were not included. Patient Name: [facility] Location: [facility] [address] [facility] [id number] Date Of : Date Of Visit: 1965 09/02/2022 MRN# Provider: [id number] Jasvir Vilchis CNP Chief Complaint Patient presents with Illness Was seen , Pt still has runny nose, cough, woke up with matted eyes Assessment & Plan 1. Sinusitis, unspecified chronicity, unspecified location azithromycin (ZITHROMAX) 250 MG tablet 2. Acute conjunctivitis of both eyes, unspecified acute conjunctivitis type trimethoprim-polymyxin b (POLYTRIM) 10,000 unit- 1 mg/mL Drop ophthalmic solution No follow-ups on file. Medical Decision Making See HPI. See Exam findings. Vital signs reviewed. Sinus pain, pressure, drainage, cough, eye redness, matting eye discharge, eye irritation. Symptoms started few days ago and worsening. Denies sharp eye pain, vision loss, double vision. Denies any accident fall or trauma. Exam highlights: Lungs clear. Eyes reddened with drainage, sinus tenderness. No evidence of AOM. Discussion: Discussed with patient's symptoms may represent bacterial sinus infection and bacterial conjunctivitis. Patient was agreeable to try antibiotic treatment. Diagnosis sinusitis, conjunctivitis. Differential considered included bacterial sinus infection, viral sinusitis, bacterial conjunctivitis, viral conjunctivitis, acute otitis media, pneumonia, seasonal allergies. Plan: Zithromax and Polytrim as prescribed. Call your equipment coordinator nurse today to notify of the new medications you are taking and inquire if any additional lab work is necessary. Make a follow up appointment with your primary care provider within 7 days for recheck. If symptoms worsen, change, or new symptoms develop go instead immediately to the nearest emergency room for further evaluation and treatment. Prior to the conclusion of the encounter the nurse practitioner discussed with the patient the diagnosis, treatment plan, and follow up recommendation. Questions were answered until the patient expressed satisfaction that they had no further question, comment or concern. Subjective 57 y.o. male presents with Illness (Was seen , Pt still has runny nose, cough, woke up with matted eyes ) Sinus pain, pressure, drainage, cough, eye redness, matting eye discharge, eye irritation. Symptoms started few days ago and worsening. Denies sharp eye pain, vision loss, double vision. Denies any accident fall or trauma. Illness Associated symptoms include congestion, eye discharge, eye itching, eye redness, rhinorrhea, a sore throat and coughing. Pertinent negatives include no ear discharge, ear pain, stridor, fever, chest pain, shortness of breath, wheezing, diarrhea, vomiting or rash. Review Of Systems Review of Systems Constitutional: Negative for fever. HENT: Positive for congestion, postnasal drip, rhinorrhea, sinus pressure, sinus pain and sore throat. Negative for ear discharge and ear pain. Eyes: Positive for discharge, redness and itching. Respiratory: Positive for cough. Negative for shortness of breath, wheezing and stridor. Cardiovascular: Negative for chest pain and palpitations. Gastrointestinal: Negative for diarrhea and vomiting. Skin: Negative for rash. Neurological: Negative for weakness. Hematological: Negative for adenopathy. Psychiatric/Behavioral: Negative for confusion. Medical History History reviewed. No pertinent past medical history. Past Surgical History: Procedure Laterality Date NEPHRECTOMY PT HAD KIDNEY TRANSPLANT There is no problem list on file for this patient. Social History Social History Tobacco Use Smoking status: Former Types: Cigarettes Smokeless tobacco: Never Substance Use Topics Alcohol use: Not Currently Drug use: Not Currently Family History History reviewed. No pertinent family history. Objective Physical Exam BP 114/72 Pulse 86 Temp 99.6 F (37.6 C) Resp 16 Wt 106 kg (233 lb 9.6 oz) SpO2 96% BMI 36.59 kg/m Vision/Hearing Exam:No results found. Physical Exam Constitutional: General: He is not in acute distress. Appearance: Normal appearance. He is not toxic-appearing. HENT: Head: Normocephalic and atraumatic. Right Ear: Tympanic membrane, ear canal and external ear normal. Left Ear: Tympanic membrane, ear canal and external ear normal. Nose: No congestion or rhinorrhea. Right Sinus: Maxillary sinus tenderness present. Left Sinus: Maxillary sinus tenderness present. Mouth/Throat: Mouth: Mucous membranes are moist. Pharynx: No oropharyngeal exudate or posterior oropharyngeal erythema. Eyes: General: Lids are everted, no foreign bodies appreciated. Vision grossly intact. No allergic shiner, visual field deficit or scleral icterus. Right eye: No foreign body or hordeolum. Left eye: No foreign body or hordeolum. Extraocular Movements: Extraocular movements intact. Conjunctiva/sclera: Right eye: Right conjunctiva is injected. Exudate present. No chemosis or hemorrhage. Left eye: Left conjunctiva is injected. Exudate present. No chemosis or hemorrhage. Pupils: Pupils are equal, round, and reactive to light. Funduscopic exam: Right eye: No papilledema. Red reflex present. Left eye: No papilledema. Red reflex present. Cardiovascular: Rate and Rhythm: Normal rate. Pulmonary: Effort: Pulmonary effort is normal. No respiratory distress. Abdominal: General: There is no distension. Musculoskeletal: Cervical back: Normal range of motion and neck supple. Lymphadenopathy: Cervical: No cervical adenopathy. Skin: General: Skin is warm and dry. Capillary Refill: Capillary refill takes less than 2 seconds. Coloration: Skin is not jaundiced. Neurological: General: No focal deficit present. Mental Status: He is alert and oriented to person, place, and time. Motor: No weakness. Coordination: Coordination normal. Psychiatric: Behavior: Behavior normal. Thought Content: Thought content normal. Procedure Notes Procedures Results No results found for this or any previous visit (from the past 168 hour(s)). No orders to display Orders Placed This Visit No orders of the defined types were placed in this encounter. Medication List At End Of Visit Current Outpatient Medications Medication Sig Dispense Refill acetaminophen (TYLENOL) 325 MG tablet Take 3 (three) tablets (975 mg total) by mouth every 8 (eight) hours . albuterol 90 mcg/actuation inhaler Inhale 2 (two) puffs every 6 (six) hours as needed for wheezing . 6.7 g 0 alclometasone (ACLOVATE) 0.05 % cream Apply to affected area 1-2 times daily when skin flared aspirin 81 mg chewable tablet Chew and Swallow 1 (one) tablet (81 mg total) every morning . benzonatate (TESSALON) 100 MG capsule Take 1 (one) capsule (100 mg total) by mouth 3 (three) times a day as needed for cough . 20 capsule 0 carBAMazepine (TEGretol) 100 mg chewable tablet Take 2 tablets daily in the morning and 3 tablets daily in the evening cetirizine (ZYRTEC) 10 MG tablet Take 1 (one) tablet (10 mg total) by mouth daily . cyanocobalamin (B-12) 500 MCG tablet Take 2 (two) tablets (1,000 mcg total) by mouth daily . escitalopram oxalate (LEXAPRO) 20 MG tablet Take 1 (one) tablet (20 mg total) by mouth every morning . ketoconazole (NIZORAL) 2 % cream Apply to affected area up to twice daily --> okay to use every day without breaks if needed losartan (COZAAR) 25 MG tablet Take 1 (one) tablet (25 mg total) by mouth daily . montelukast (SINGULAIR) 10 mg tablet Take 1 (one) tablet (10 mg total) by mouth daily . mycophenolate sodium (MYFORTIC) 180 MG EC tablet Take 3 (three) tablets (540 mg total) by mouth every 12 (twelve) hours . OLANZapine (ZYPREXA) 2.5 MG tablet Take 1 (one) tablet (2.5 mg total) by mouth every morning . omeprazole (PRILOSEC) 40 MG capsule Take 1 (one) capsule (40 mg total) by mouth daily . sildenafiL (VIAGRA) 100 MG tablet Take 0.5 (one-half) tablet to 1 (one) tablet (50-100 mg total) by mouth as needed . tacrolimus (PROGRAF) 1 MG capsule Take 5 (five) capsules (5 mg total) by mouth 2 (two) times a day . testosterone cypionate (DEPOTESTOTERONE CYPIONATE) 200 mg/mL injection Inject 1 mL (200 mg total) as directed every 28 days . azithromycin (ZITHROMAX) 250 MG tablet Take 2 (two) tablets (500 mg total) by mouth daily for 1 day, THEN 1 (one) tablet (250 mg total) daily for 4 days. 6 tablet 0 trimethoprim-polymyxin b (POLYTRIM) 10,000 unit- 1 mg/mL Drop ophthalmic solution Apply 1 (one) drop to eye every 6 (six) hours for 7 days . 10 mL 0 No current facility-administered medications for this visit. Patient Instructions Plan: Zithromax and Polytrim as prescribed. Call your equipment coordinator nurse today to notify of the new medications you are taking and inquire if any additional lab work is necessary. Make a follow up appointment with your primary care provider within 7 days for recheck. If symptoms worsen, change, or new symptoms develop go instead immediately to the nearest emergency room for further evaluation and treatment. documented in this encounter [facility] 08-30-2022 Instructions Jasvir Vilchis CNP - 08/30/2022 11:03 AM EST . Plan: Consider trying over the counter Afrin, Guaifenesin, Dextromethorphan. Avoid NDAIDS including but not limited to ibuprofen, aspirin, aleve, naproxen, advil. Use over the counter plain acetaminophen for pain. Tessalon and Albuterol as prescribed. Make a follow up appointment with your primary care provider within 7 days for recheck. If symptoms worsen, change, or new symptoms develop go instead immediately to the nearest emergency room for further evaluation and treatment. documented in this encounter [facility] 08-30-2022 History of Present illness Narrative Images from the original note were not included. Patient Name: [facility] Location: [facility] [address] [place], [place] [id number] Date Of : Date Of Visit: 1965 08/30/2022 MRN# Provider: [id number] Jasvir Vilchis CNP Chief Complaint Patient presents with Illness Left ear pain, congestion, cough, body aches, chills. Does not want covid test. Pt has kidney transplant, concerned about which meds he can take for cold/flu Assessment & Plan 1. Viral URI albuterol 90 mcg/actuation inhaler benzonatate (TESSALON) 100 MG capsule No follow-ups on file. Medical Decision Making See HPI. See Exam findings. Vital signs reviewed. Coughing, congestion, body aches, chills. Symptoms started yesterday. History kidney transplant. Stated transplanted a few years ago. Taking medications as prescribed; denies any known recent changes/complications related to kidney transplant or kidney function. Denies recent travel, hospitalization, surgery, known exposure to anyone with covid-19. Covid-19 concerns were discussed. Covid-19 test was offered and recommended but patient declined. Influenza testing also declined. Exam highlights: Lungs clear. Afebrile. Diagnosis Viral URI . Differential considered included rhinovirus, covid-19, influenza, bacterial sinusitis, aom, pneumonia . Plan: Consider trying over the counter Afrin, Guaifenesin, Dextromethorphan. Avoid NDAIDS including but not limited to ibuprofen, aspirin, aleve, naproxen, advil. Use over the counter plain acetaminophen for pain. Tessalon and Albuterol as prescribed. Make a follow up appointment with your primary care provider within 7 days for recheck. If symptoms worsen, change, or new symptoms develop go instead immediately to the nearest emergency room for further evaluation and treatment. Prior to the conclusion of the encounter the nurse practitioner discussed with the patient the diagnosis, treatment plan, and follow up recommendation. Questions were answered until the patient expressed satisfaction that they had no further question, comment or concern. Subjective 57 y.o. male presents with Illness (Left ear pain, congestion, cough, body aches, chills. Does not want covid test. Pt has kidney transplant, concerned about which meds he can take for cold/flu) Coughing, congestion, body aches, chills. Symptoms started yesterday. Denies recent travel, hospitalization, surgery, known exposure to anyone with covid-19. Illness Associated symptoms include congestion, ear pain, rhinorrhea and coughing. Pertinent negatives include no sore throat, stridor, fever, chest pain, shortness of breath, wheezing, diarrhea, vomiting or rash. Review Of Systems Review of Systems Constitutional: Positive for chills. Negative for fever. HENT: Positive for congestion, ear pain and rhinorrhea. Negative for sore throat. Respiratory: Positive for cough. Negative for shortness of breath, wheezing and stridor. Cardiovascular: Negative for chest pain and palpitations. Gastrointestinal: Negative for diarrhea and vomiting. Musculoskeletal: Positive for myalgias. Skin: Negative for rash. Neurological: Negative for tremors and weakness. Hematological: Negative for adenopathy. Psychiatric/Behavioral: Negative for confusion. Medical History History reviewed. No pertinent past medical history. Past Surgical History: Procedure Laterality Date NEPHRECTOMY PT HAD KIDNEY TRANSPLANT There is no problem list on file for this patient. Social History Social History Tobacco Use Smoking status: Former Types: Cigarettes Smokeless tobacco: Never Substance Use Topics Alcohol use: Not Currently Drug use: Not Currently Family History History reviewed. No pertinent family history. Objective Physical Exam BP 113/75 Pulse 92 Temp 98.2 F (36.8 C) (Oral) Resp 16 Ht 5' 7 Wt 107.5 kg (237 lb) SpO2 96% BMI 37.12 kg/m Vision/Hearing Exam:No results found. Physical Exam Constitutional: General: He is not in acute distress. Appearance: Normal appearance. He is not ill-appearing, toxic-appearing or diaphoretic. HENT: Head: Normocephalic and atraumatic. Right Ear: Tympanic membrane, ear canal and external ear normal. Left Ear: Tympanic membrane, ear canal and external ear normal. Mouth/Throat: Mouth: Mucous membranes are moist. Pharynx: No oropharyngeal exudate or posterior oropharyngeal erythema. Eyes: Conjunctiva/sclera: Conjunctivae normal. Cardiovascular: Rate and Rhythm: Regular rhythm. Heart sounds: Normal heart sounds. Pulmonary: Effort: Pulmonary effort is normal. No respiratory distress. Breath sounds: Normal breath sounds. No stridor. No wheezing, rhonchi or rales. Abdominal: General: There is no distension. Lymphadenopathy: Cervical: No cervical adenopathy. Skin: General: Skin is warm and dry. Capillary Refill: Capillary refill takes less than 2 seconds. Coloration: Skin is not jaundiced. Neurological: General: No focal deficit present. Mental Status: He is alert and oriented to person, place, and time. Motor: No weakness. Coordination: Coordination normal. Psychiatric: Behavior: Behavior normal. Thought Content: Thought content normal. Procedure Notes Procedures Results No results found for this or any previous visit (from the past 168 hour(s)). No orders to display Orders Placed This Visit No orders of the defined types were placed in this encounter. Medication List At End Of Visit Current Outpatient Medications Medication Sig Dispense Refill acetaminophen (TYLENOL) 325 MG tablet Take 3 (three) tablets (975 mg total) by mouth every 8 (eight) hours . albuterol 90 mcg/actuation inhaler Inhale 2 (two) puffs every 6 (six) hours as needed for wheezing . 6.7 g 0 alclometasone (ACLOVATE) 0.05 % cream Apply to affected area 1-2 times daily when skin flared aspirin 81 mg chewable tablet Chew and Swallow 1 (one) tablet (81 mg total) every morning . benzonatate (TESSALON) 100 MG capsule Take 1 (one) capsule (100 mg total) by mouth 3 (three) times a day as needed for cough . 20 capsule 0 carBAMazepine (TEGretol) 100 mg chewable tablet Take 2 tablets daily in the morning and 3 tablets daily in the evening cetirizine (ZYRTEC) 10 MG tablet Take 1 (one) tablet (10 mg total) by mouth daily . cyanocobalamin (B-12) 500 MCG tablet Take 2 (two) tablets (1,000 mcg total) by mouth daily . escitalopram oxalate (LEXAPRO) 20 MG tablet Take 1 (one) tablet (20 mg total) by mouth every morning . ketoconazole (NIZORAL) 2 % cream Apply to affected area up to twice daily --> okay to use every day without breaks if needed losartan (COZAAR) 25 MG tablet Take 1 (one) tablet (25 mg total) by mouth daily . montelukast (SINGULAIR) 10 mg tablet Take 1 (one) tablet (10 mg total) by mouth daily . mycophenolate sodium (MYFORTIC) 180 MG EC tablet Take 3 (three) tablets (540 mg total) by mouth every 12 (twelve) hours . OLANZapine (ZYPREXA) 2.5 MG tablet Take 1 (one) tablet (2.5 mg total) by mouth every morning . omeprazole (PRILOSEC) 40 MG capsule Take 1 (one) capsule (40 mg total) by mouth daily . sildenafiL (VIAGRA) 100 MG tablet Take 0.5 (one-half) tablet to 1 (one) tablet (50-100 mg total) by mouth as needed . tacrolimus (PROGRAF) 1 MG capsule Take 5 (five) capsules (5 mg total) by mouth 2 (two) times a day . testosterone cypionate (DEPOTESTOTERONE CYPIONATE) 200 mg/mL injection Inject 1 mL (200 mg total) as directed every 28 days . No current facility-administered medications for this visit. Patient Instructions . Plan: Consider trying over the counter Afrin, Guaifenesin, Dextromethorphan. Avoid NDAIDS including but not limited to ibuprofen, aspirin, aleve, naproxen, advil. Use over the counter plain acetaminophen for pain. Tessalon and Albuterol as prescribed. Make a follow up appointment with your primary care provider within 7 days for recheck. If symptoms worsen, change, or new symptoms develop go instead immediately to the nearest emergency room for further evaluation and treatment. documented in this encounter [facility] 04-21-2022 Emergency department Note Patient presented discharge instructions and education to follow up with an staging technician and milk pickup driver medications from the pharmacy. Patient left this ED ambulatory with a steady gait and even respirations. [facility] 04-21-2022 Emergency department Note Patient presented discharge instructions and education to follow up with an staging technician and milk pickup driver medications from the pharmacy. Patient left this ED ambulatory with a steady gait and even respirations. Patient's vision assessed. 20/50 with both eyes. But unable to see anything with affected eye. He did state that he wears bifocals normally and has terrible vision. Dr. Archuleta aware of his baseline vision. EMERGENCY DEPARTMENT REPORT [facility] EMERGENCY MEDICINE SERVICE DATE: 04/21/22 PCP: Mariana Miranda CHIEF COMPLAINT: Right eye redness Chief Complaint Patient presents with Eye Problem Right eye redness x2 days, denies injury and pain HPI: Zoie Heath is a 56 y.o. male who presents with complaint of right eye redness. Onset of redness the previous day. No change in vision. Patient reports no associated pain at this time. Patient reports course to be improving. Patient was evaluated in the urgent care setting the previous day. Patient was informed to present to the emergency department or see an dividend deposit voucher clerk. Patient wears contacts. REVIEW OF SYSTEMS: As documented in HPI. General: No fevers or chills. Eyes: Right eye redness. ENT: Runny nose. Cardiovascular: No chest pain. Respiratory: No shortness of breath. 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 Chronic kidney disease, stage 4, severely decreased GFR dialysis 3x weekly Depression 2010 1 suicide attempt in 2010 Diverticulosis Dry skin severe dry skin on bottom of bilateral feet - cracked heels ESRD on dialysis 02/22/2011 Fatigue GERD (gastroesophageal reflux disease) Hyperparathyroidism, secondary renal Hyperphosphatemia Inguinal hernia Insomnia Kidney transplant recipient Migraine Night muscle spasms Obesity (BMI 30-39.9) Obesity, Class III, BMI 40-49.9 (morbid obesity) 01/29/2019 DEMI on CPAP Osteoarthritis of knee Polycystic kidney disease 1999 Snoring Umbilical hernia not yet repaired SURGICAL HISTORY: Past Surgical History: Procedure Laterality Date NEPHRECTOMY OPEN Bilateral 01/23/2022 Laterality: Bilateral; Surgeon: Charley Mccracken MD, PhD; Location[facility] MAIN OR APPENDECTOMY LAPAROSCOPIC N/A 12/26/2019 Laterality: N/A; Surgeon: Rosy Lynn DO; Location: [facility] MAIN OR GASTRECTOMY LONGITUDINAL (SLEEVE) LAPAROSCOPIC N/A 08/10/2019 Laterality: N/A; Surgeon: Saira Moore MD; Location: [facility] SAME DAY SURGERY MAIN OR EGD DIAGNOSTIC N/A 08/10/2019 Laterality: N/A; Surgeon: Saira Moore MD; Location: [facility] SAME DAY SURGERY MAIN OR EGD DIAGNOSTIC N/A 04/24/2019 Laterality: N/A; Surgeon: Nahomy Santos MD; Location: [facility] ENDOSCOPY LAPAROTOMY EXPLORATORY N/A 02/27/2019 Laterality: N/A; Surgeon: Raul Lott MD; [facility] OR HERNIA REPAIR 02/27/2019 REPAIR HERNIA UMBILICAL OPEN W/ MESH N/A 05/09/2017 Laterality: N/A; Surgeon: CORNEL Elizondo; [facility] KIDNEY TRANSPLANT W/O TYONEK NEPHRECTOMY N/A 09/25/2016 Laterality: N/A; Surgeon: Jose Shaw MD; [facility] IN KNEE SCOPE, MENISC TRANSPLANT Right 11/12/2014 right knee scope with lateral meniscus repair per Dr. Zepeda HERNIA REPAIR Right 01/08/2012 inguinal - uncomplicated HERNIA REPAIR 01/08/2012 umbilical - incarcerated CREATION ARTERIOVENOUS FISTULA W/ AUTOGENOUS GRAFT Left 2009 CREATION ARTERIOVENOUS FISTULA W/ NONAUTOGENOUS GRAFT 2010 SHOULDER SURGERY Left 2007 clavicle repair and shoulder arthroscopy CHOLECYSTECTOMY 2005 KNEE SURGERY Left 1992 arthroscopy ADENOIDECTOMY EXCISION FISTULA LACTIFEROUS DUCT TONSILLECTOMY CURRENT MEDICATIONS: Patient's Medications New Prescriptions OFLOXACIN 0.3 % OPHTHALMIC SOLUTION Place 1 drop in right eye 4 times daily. Previous Medications ACETAMINOPHEN 325 MG TABLET Take 3 tablets by mouth every 8 hours for 5 days. ALCLOMETASONE DIPROPIONATE 0.05 % CREAM Apply to affected area 1-2 times daily when skin flared ASPIRIN 81 MG CHEW TAB CHEWABLE TABLET Chew 1 tablet daily every morning. ..Please obtain future renewals of this prescription from your primary care provider. CALCIUM CITRATE PO Take 1,200 mg by mouth 2 times daily. CARBAMAZEPINE 100 MG CHEW TAB Take 2 tablets daily in the morning and 3 tablets daily in the evening CETIRIZINE 10 MG TABLET Take 1 tablet by mouth daily. CYANOCOBALAMIN 500 MCG TABLET Take 2 tablets by mouth daily. ESCITALOPRAM 20 MG TABLET Take 1 tablet by mouth daily every morning. KETOCONAZOLE 2 % CREAM CREAM Apply to affected area up to twice daily --> okay to use every day without breaks if needed LOSARTAN 25 MG TABLET Take 1 tablet by mouth daily. MAGNESIUM OXIDE 400 (241.3 MG) MG TABLET Take 1 tablet by mouth 2 times daily. MONTELUKAST 10 MG TABLET Take 1 tablet by mouth daily. MULTIPLE VITAMINS-MINERALS (MULTIVITAMINS) CHEW TAB Chew 2 tablets daily. May take pediatric or adult chalky chewable vitamin; double the recommended daily dose. MYCOPHENOLATE SODIUM (MYFORTIC) [address] Take 3 tablets by mouth every 12 hours. OLANZAPINE 2.5 MG TABLET Take 1 tablet by mouth daily every morning. OMEPRAZOLE [address] CAPSULE Take 1 capsule by mouth daily. Please call in May to schedule follow up in Aug 2021. Scheduling phone [phone] ROPINIROLE 0.5 MG TABLET Take 0.5 mg by mouth at bedtime. SILDENAFIL CITRATE 100 MG TABLET Take 0.5-1 tablets by mouth as needed for Erectile Dysfunction. TACROLIMUS (PROGRAF) 1 MG CAPSULE Take 5 capsules by mouth 2 times daily. TERBINAFINE 1 % CREAM CREAM Apply to affected area (feet) twice daily TESTOSTERONE CYPIONATE 200 MG/ML SOLUTION Inject 200 mg as directed every 28 days. Modified Medications No medications on file Discontinued Medications No medications on file ALLERGIES: Allergies Allergen Reactions *Seasonal Runny Nose FAMILY HISTORY: Family History Problem Relation Age of Onset Kidney Disease Mother PKD; transplant Hypertension Mother Diabetes Father Diabetes Sister Alzheimer's Maternal Grandmother Other - Specify Maternal Grandfather esrd Anesth Problems Neg Hx SOCIAL HISTORY: Social History Socioeconomic History Marital status: Spouse name: Derick Number of children: 3 Years of education: 12 Highest education level: Not on file Occupational History Not on file Tobacco Use Smoking status: Former Packs/day: 1.00 Years: 20.00 Pack years: 20.00 Types: Cigarettes Start date: 07/01/1982 Quit date: 07/01/1999 Years since quittin.8 Smokeless tobacco: Never Vaping Use Vaping Use: Never used Substance and Sexual Activity Alcohol use: No Comment: none Drug use: Never Sexual activity: Not on file Other Topics Concern Service Not Asked Blood Transfusions Not Asked Caffeine Concern Not Asked Occupational Exposure Not Asked Hobby Hazards Not Asked Sleep Concern Not Asked Stress Concern Not Asked Weight Concern Not Asked Special Diet Not Asked Back Care Not Asked Exercise Not Asked Bike Helmet Not Asked Seat Belt Not Asked Domestic Violence No Social History Narrative Not on file Social Determinants of Health Financial Resource Strain: Not on file Food Insecurity: Not on file Transportation Needs: Not on file Physical Activity: Not on file Stress: Not on file Social Connections: Not on file Intimate Partner Violence: Not on file Housing Stability: Not on file PHYSICAL EXAM: Constitutional: Oriented and well-developed, well-nourished, and in no distress. Non-toxic appearance. HEENT: Normocephalic and atraumatic. No mucosal edema, rhinorrhea, or nasal deformity. Uvula is midline, no asymmetry or fullness. Mucous membranes are moist. No oral lesions. No posterior oropharyngeal exudate or erythema. No stridor. Eyes: Pupils are equal and round. No scleral icterus. Cardiovascular: Regular rate and rhythm, normal heart sounds and intact distal pulses. No murmur heard. Pulmonary/Chest: Effort normal. Lungs are clear without wheezes, rales or rhonchi. No accessory muscle usage or stridor. No tenderness or retraction. Extremities: No lower extremity edema. Psychiatric: Affect appropriate. VITAL SIGNS DURING ED VISIT: Patient Vitals for the past 24 hrs: BP Temp Temp src Pulse Resp SpO2 Height 04/21/22 1051 -- -- -- -- -- -- 1.702 m (5' 7 ) 04/21/22 1050 140/77 98 F (36.7 C) Oral 67 16 97 % -- ED COURSE & MEDICAL DECISION MAKING: Sharif-Pen pressures obtained in the right eye: 11, 10, 9. Patient reported course to be improving. Nevertheless, patient advised of NEED to follow-up with an eye doctor BAYLEE. Prescription for ofloxacin drops sent as patient uses contacts. ORDERS/RESULTS: Orders Placed This Encounter proparacaine (ALCAINE) 0.5 % ophthalmic solution 2 drop ofloxacin 0.3 % ophthalmic solution Results for orders placed or performed in visit on 04/05/22 PTH INTACT, MANUAL ENTER Result Value Ref Range PTH INTACT, MANUAL ENTER 59.2 IMAGING: No orders to display CLINICAL IMPRESSION: 1. Redness of right eye DISPOSITION: Discharged home. No follow-ups on file. New Prescriptions OFLOXACIN 0.3 % OPHTHALMIC SOLUTION Place 1 drop in right eye 4 times daily. Discontinued Medications No medications on file An after visit summary was printed and given to the patient with the above information. Portions of this chart were created using [employer] electronic dictation. Please excuse any typographical or grammatical errors contained herein. Raheem Archuleta MD 04/21/22 1120 TO Ed with c/o right eye redness. Denies pain, itching, FB sensation, and injury. Saw urgent care tomorrow and was advised to seek emergent treatment and possible dividend deposit voucher clerk eval. documented in this encounter [facility] 04-21-2022 Hospital Discharge instructions Raheem Archuleta MD - 04/21/2022 11:12 AM EDT You will need to see an eye doctor BAYLEE. The following attachments cannot be sent through Care Everywhere.Iritis ([place])documented in this encounter [facility] 04-21-2022 Emergency department Note Patient's vision assessed. 20/50 with both eyes. But unable to see anything with affected eye. He did state that he wears bifocals normally and has terrible vision. Dr. Archuleta aware of his baseline vision. [facility] 04-21-2022 Physician Emergency department Note EMERGENCY DEPARTMENT REPORT [facility] EMERGENCY MEDICINE SERVICE DATE: 04/21/22 PCP: Mariana Miranda CHIEF COMPLAINT: Right eye redness Chief Complaint Patient presents with Eye Problem Right eye redness x2 days, denies injury and pain HPI: Zoie Heath is a 56 y.o. male who presents with complaint of right eye redness. Onset of redness the previous day. No change in vision. Patient reports no associated pain at this time. Patient reports course to be improving. Patient was evaluated in the urgent care setting the previous day. Patient was informed to present to the emergency department or see an dividend deposit voucher clerk. Patient wears contacts. REVIEW OF SYSTEMS: As documented in HPI. General: No fevers or chills. Eyes: Right eye redness. ENT: Runny nose. Cardiovascular: No chest pain. Respiratory: No shortness of breath. 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 Chronic kidney disease, stage 4, severely decreased GFR dialysis 3x weekly Depression 2010 1 suicide attempt in 2010 Diverticulosis Dry skin severe dry skin on bottom of bilateral feet - cracked heels ESRD on dialysis 02/22/2011 Fatigue GERD (gastroesophageal reflux disease) Hyperparathyroidism, secondary renal Hyperphosphatemia Inguinal hernia Insomnia Kidney transplant recipient Migraine Night muscle spasms Obesity (BMI 30-39.9) Obesity, Class III, BMI 40-49.9 (morbid obesity) 01/29/2019 DEMI on CPAP Osteoarthritis of knee Polycystic kidney disease 1999 Snoring Umbilical hernia not yet repaired SURGICAL HISTORY: Past Surgical History: Procedure Laterality Date NEPHRECTOMY OPEN Bilateral 01/23/2022 Laterality: Bilateral; Surgeon: Charley Mccracken MD, PhD; [facility] MA[facility] OR APPENDECTOMY LAPAROSCOPIC N/A 12/26/2019 Laterality: N/A; Surgeon: Rosy Lynn DO; [facility] OR GASTRECTOMY LONGITUDINAL (SLEEVE) LAPAROSCOPIC N/A 08/10/2019 Laterality: N/A; Surgeon: Saira Moore MD; Location: [facility] SAME DAY SURGERY MAIN OR EGD DIAGNOSTIC N/A 08/10/2019 Laterality: N/A; Surgeon: Saira Moore MD; Location: [facility] SAME DAY SURGERY MAIN OR EGD DIAGNOSTIC N/A 04/24/2019 Laterality: N/A; Surgeon: Nahomy Santos MD; Location: [facility] ENDOSCOPY LAPAROTOMY EXPLORATORY N/A 02/27/2019 Laterality: N/A; Surgeon: Raul Lott MD; Location: [facility] MAIN OR HERNIA REPAIR 02/27/2019 REPAIR HERNIA UMBILICAL OPEN W/ MESH N/A 05/09/2017 Laterality: N/A; Surgeon: CORNEL Elizondo; Location: [facility] MAIN OR KIDNEY TRANSPLANT W/O TYONEK NEPHRECTOMY N/A 09/25/2016 Laterality: N/A; Surgeon: Jose Shwa MD; [facility] MA[facility] OR IN KNEE SCOPE, MENISC TRANSPLANT Right 11/12/2014 right knee scope with lateral meniscus repair per Dr. Zepeda HERNIA REPAIR Right 01/08/2012 inguinal - uncomplicated HERNIA REPAIR 01/08/2012 umbilical - incarcerated CREATION ARTERIOVENOUS FISTULA W/ AUTOGENOUS GRAFT Left 2010 CREATION ARTERIOVENOUS FISTULA W/ NONAUTOGENOUS GRAFT 2010 SHOULDER SURGERY Left 2007 clavicle repair and shoulder arthroscopy CHOLECYSTECTOMY 2005 KNEE SURGERY Left 1992 arthroscopy ADENOIDECTOMY EXCISION FISTULA LACTIFEROUS DUCT TONSILLECTOMY CURRENT MEDICATIONS: Patient's Medications New Prescriptions OFLOXACIN 0.3 % OPHTHALMIC SOLUTION Place 1 drop in right eye 4 times daily. Previous Medications ACETAMINOPHEN 325 MG TABLET Take 3 tablets by mouth every 8 hours for 5 days. ALCLOMETASONE DIPROPIONATE 0.05 % CREAM Apply to affected area 1-2 times daily when skin flared ASPIRIN 81 MG CHEW TAB CHEWABLE TABLET Chew 1 tablet daily every morning. ..Please obtain future renewals of this prescription from your primary care provider. CALCIUM CITRATE PO Take 1,200 mg by mouth 2 times daily. CARBAMAZEPINE 100 MG CHEW TAB Take 2 tablets daily in the morning and 3 tablets daily in the evening CETIRIZINE 10 MG TABLET Take 1 tablet by mouth daily. CYANOCOBALAMIN 500 MCG TABLET Take 2 tablets by mouth daily. ESCITALOPRAM 20 MG TABLET Take 1 tablet by mouth daily every morning. KETOCONAZOLE 2 % CREAM CREAM Apply to affected area up to twice daily --> okay to use every day without breaks if needed LOSARTAN 25 MG TABLET Take 1 tablet by mouth daily. MAGNESIUM OXIDE 400 (241.3 MG) MG TABLET Take 1 tablet by mouth 2 times daily. MONTELUKAST 10 MG TABLET Take 1 tablet by mouth daily. MULTIPLE VITAMINS-MINERALS (MULTIVITAMINS) CHEW TAB Chew 2 tablets daily. May take pediatric or adult chalky chewable vitamin; double the recommended daily dose. MYCOPHENOLATE SODIUM (MYFORTIC) [address] Take 3 tablets by mouth every 12 hours. OLANZAPINE 2.5 MG TABLET Take 1 tablet by mouth daily every morning. OMEPRAZOLE [address] CAPSULE Take 1 capsule by mouth daily. Please call in May to schedule follow up in Aug 2021. Scheduling phone [phone] ROPINIROLE 0.5 MG TABLET Take 0.5 mg by mouth at bedtime. SILDENAFIL CITRATE 100 MG TABLET Take 0.5-1 tablets by mouth as needed for Erectile Dysfunction. TACROLIMUS (PROGRAF) 1 MG CAPSULE Take 5 capsules by mouth 2 times daily. TERBINAFINE 1 % CREAM CREAM Apply to affected area (feet) twice daily TESTOSTERONE CYPIONATE 200 MG/ML SOLUTION Inject 200 mg as directed every 28 days. Modified Medications No medications on file Discontinued Medications No medications on file ALLERGIES: Allergies Allergen Reactions *Seasonal Runny Nose FAMILY HISTORY: Family History Problem Relation Age of Onset Kidney Disease Mother PKD; transplant Hypertension Mother Diabetes Father Diabetes Sister Alzheimer's Maternal Grandmother Other - Specify Maternal Grandfather esrd Anesth Problems Neg Hx SOCIAL HISTORY: Social History Socioeconomic History Marital status: Spouse name: Derick Number of children: 3 Years of education: 12 Highest education level: Not on file Occupational History Not on file Tobacco Use Smoking status: Former Packs/day: 1.00 Years: 20.00 Pack years: 20.00 Types: Cigarettes Start date: 07/01/1982 Quit date: 07/01/1999 Years since quittin.8 Smokeless tobacco: Never Vaping Use Vaping Use: Never used Substance and Sexual Activity Alcohol use: No Comment: none Drug use: Never Sexual activity: Not on file Other Topics Concern Service Not Asked Blood Transfusions Not Asked Caffeine Concern Not Asked Occupational Exposure Not Asked Hobby Hazards Not Asked Sleep Concern Not Asked Stress Concern Not Asked Weight Concern Not Asked Special Diet Not Asked Back Care Not Asked Exercise Not Asked Bike Helmet Not Asked Seat Belt Not Asked Domestic Violence No Social History Narrative Not on file Social Determinants of Health Financial Resource Strain: Not on file Food Insecurity: Not on file Transportation Needs: Not on file Physical Activity: Not on file Stress: Not on file Social Connections: Not on file Intimate Partner Violence: Not on file Housing Stability: Not on file PHYSICAL EXAM: Constitutional: Oriented and well-developed, well-nourished, and in no distress. Non-toxic appearance. HEENT: Normocephalic and atraumatic. No mucosal edema, rhinorrhea, or nasal deformity. Uvula is midline, no asymmetry or fullness. Mucous membranes are moist. No oral lesions. No posterior oropharyngeal exudate or erythema. No stridor. Eyes: Pupils are equal and round. No scleral icterus. Cardiovascular: Regular rate and rhythm, normal heart sounds and intact distal pulses. No murmur heard. Pulmonary/Chest: Effort normal. Lungs are clear without wheezes, rales or rhonchi. No accessory muscle usage or stridor. No tenderness or retraction. Extremities: No lower extremity edema. Psychiatric: Affect appropriate. VITAL SIGNS DURING ED VISIT: Patient Vitals for the past 24 hrs: BP Temp Temp src Pulse Resp SpO2 Height 04/21/22 1051 -- -- -- -- -- -- 1.702 m (5' 7 ) 04/21/22 1050 140/77 98 F (36.7 C) Oral 67 16 97 % -- ED COURSE & MEDICAL DECISION MAKING: Sharif-Pen pressures obtained in the right eye: 11, 10, 9. Patient reported course to be improving. Nevertheless, patient advised of NEED to follow-up with an eye doctor BAYLEE. Prescription for ofloxacin drops sent as patient uses contacts. ORDERS/RESULTS: Orders Placed This Encounter proparacaine (ALCAINE) 0.5 % ophthalmic solution 2 drop ofloxacin 0.3 % ophthalmic solution Results for orders placed or performed in visit on 04/05/22 PTH INTACT, MANUAL ENTER Result Value Ref Range PTH INTACT, MANUAL ENTER 59.2 IMAGING: No orders to display CLINICAL IMPRESSION: 1. Redness of right eye DISPOSITION: Discharged home. No follow-ups on file. New Prescriptions OFLOXACIN 0.3 % OPHTHALMIC SOLUTION Place 1 drop in right eye 4 times daily. Discontinued Medications No medications on file An after visit summary was printed and given to the patient with the above information. Portions of this chart were created using [employer] electronic dictation. Please excuse any typographical or grammatical errors contained herein. Raheem Archuleta MD 04/21/22 1120 [facility] 04-21-2022 Emergency department Note TO Ed with c/o right eye redness. Denies pain, itching, FB sensation, and injury. Saw urgent care tomorrow and was advised to seek emergent treatment and possible dividend deposit voucher clerk eval. [facility] 03-02-2022 History of Present illness Narrative History of Present Illness Low Testosterone Recent labs showing free testosterone. Total testosterone at 570 obtained 10/12/2021 and free testosterone at 3.5 obtained 10/12/2021. Patient states that he is having s/sx associated with low testosterone such as: decreased sex drive, depression, erectile dysfunction. Patient does not experience s/sx such as decrease in hair growth on the face and body, decrease in muscle mass, development of breast tissue (gynecomastia), loss of bone mass (osteoporosis). Patient did have additional hormones screened on 10/23/2021 with elevated LH at 8.9 and FSH at 8.9. Patient would like to discuss testosterone supplementation at this time. Red Eye Onset: couple days ago. Location: right eye. Duration: all day over past couple days. Aggravating factors: nothing. Relieving factors: nothing. Associated s/sx: red eye, watery eye. No matting, no pain. Just irritating. Tried to change out contact and tried visine without relief. No known exposure to pink eye. Review of Systems Constitutional: Negative for chills, fatigue, fever. 10# weight gain since in last HENT: Positive for rhinorrhea. Negative for congestion, ear pain, nosebleeds, postnasal drip, sinus pressure, sinus pain, sneezing and sore throat. Eyes: Positive for discharge (Watery right eye) and redness (Right eye). Negative for pain and itching. Respiratory: Negative for cough, chest tightness, shortness of breath and wheezing. Cardiovascular: Positive for leg swelling (Bilateral legs, chronic and unchanged). Negative for chest pain and palpitations. Gastrointestinal: Positive for abdominal pain (Pain from recent nephrectomy). Negative for constipation, diarrhea, nausea and vomiting. Genitourinary: Negative for dysuria, frequency, hematuria and urgency. Skin: Negative for rash. Allergic/Immunologic: Positive for environmental allergies. Neurological: Negative for dizziness and headaches. Psychiatric/Behavioral: Negative for agitation and sleep disturbance. The patient is not nervous/anxious. Physical Exam Eyes: Conjunctiva/sclera: Right eye: Right conjunctiva is injected. No chemosis, exudate or hemorrhage. Constitutional: General: He is not in acute distress. Appearance: Normal appearance. He is obese. He is not ill-appearing, toxic-appearing or diaphoretic. Psychiatric: Behavior: Behavior is cooperative. Neck: Normal range of motion. Neck supple. Cardiovascular: Normal rate, regular rhythm, S1 normal, S2 normal and intact distal pulses. Murmur heard. Systolic murmur is present with a grade of 2/6 Pulmonary/Chest: Effort normal and breath sounds normal. Abdominal: Soft. Normal appearance and bowel sounds are normal. There is no tenderness. There is no rebound and no CVA tenderness. Surgical scars throughout abdomen, healing well and scabbed. Lymphadenopathy: Head (right side): No submental, no submandibular and no tonsillar adenopathy present. Head (left side): No submental, no submandibular and no tonsillar adenopathy present. Right cervical: No superficial cervical adenopathy present. Left cervical: No superficial cervical adenopathy present. Right: No supraclavicular adenopathy present. Left: No supraclavicular adenopathy present. Neurological: He is oriented to person, place, and time. He has normal reflexes. Skin: Skin is warm, dry and intact. No abrasion and no bruising noted. Psychiatric: Memory and affect normal. His mood appears not anxious. He does not exhibit a depressed mood. Mental Status Oriented to person, place, and time. Assessment and Plan Low testosterone: reviewed recent labs. Patient does wish to start on testosterone therapy. Will start on Androgel topically. advised on med, how to use and potential ADR's. Will repeat testosterone lab in 1 month and will call with results and adjust treatment accordingly. F/U in office in 4 months. Sooner if needed. Conjunctivitis: noted conjunctivitis on exam. Will start on antibacterial eye drops for treatment. Advised on med, how to use and potential ADR's. Discussed compresses as well as appropriate cleaning of eye and avoidance of any triggers. F/U as needed. To call/retrun fi s/sx worsen, progress or no resolution with tx. documented in this encounter [facility] 01-08-2022 Instructions REYES Shook - 01/08/2022 8:59 AM EDT Erectile Dysfunction: Pt doing well on current ED medication. To continue with this. spoke regarding methods to help with erectile dysfunction aside from medication including stress reduction, avoid ETOH with sexual intercourse. will f/u in 6 months. sooner if needed. GERD: GERD fairly controlled at this time. to continue with current medication regimen. encouraged on methods to help with heartburn control aside from medication (avoidance of greasy/fatty/spicy foods, don't eat prior to bedtime, sleep with head inclined, take appropriate medications with food, appropriate diet, lose weight, exercise, etc). Encouraged on getting EGD when able. will f/u in 6 months. sooner if needed. Allergies: allergies controlled at this time. To continue with current medication regimen. spoke regarding methods to help with allergy control including keeping pets outdoors or out of bedroom, cover pillows and mattress in plastic to help prevent dust mites, HEPA filter in furnace/air conditioner and vacuum, stay indoors with windows shut as much as possible with high pollen counts, keep away from smoke/burning, cool mist humidification, nasal saline spray. will f/u in 6 months. sooner if needed. documented in this encounter [facility] 01-08-2022 History of Present illness Narrative History of Present Illness Erectile Dysfunction There is a complaint of erectile problems. Onset of problem was the beginning of the year and is described as cant last (will obtain erection, however, this will not last and then, at times, unable to even obtain an erection, also, dont get the urge to want to have sex. 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 The patient reports is able to obtain an erection with masturbation. Ejaculatory problems - No . The patient does not believe that these symptoms are related to medications (nothing has changed). Relationship with partner is good. Risk factors for ED include: nothing. Patient current prescribed and he is taking Viagra 100 mg prior to sexual intercourse and feels like medication is effective. GERD Zoie presents to the office today for follow-up of GERD. He reports None . Additional symptoms include: No abdominal pain, No change in bowel habits, No significant heartburn, No significant change in appetite, No nausea, vomiting, diarrhea, or constipation, No hematemesis, No blood in stools or black tarry stools, No abdominal bloating or early satiety, No dysphagia. He denies dysphagia He has tried, is currently taking include Omeprazole 40 mg once daily. Patient states that current medication is effective at this time. Patient did have to cancel his EGD. Intends to see if he can get this done when in hospital for nephrectomy on 01/23/2022. If eats too late at night, will sometimes have to take second does with Prilosec. Allergies Zoie Hdezguy presents for follow up for allergies. Eyes red/itchy/tearing: yes Nasal congestion: yes Runny nose: yes Ear pain/pressure/stuffiness: no Post nasal drainage: no Sinus pain: no Current medication: Cetrizine 10 mg once daily and Singulair 10 mg once daily. Current medication is effective at this time. Gets allergy s/sx when outside. Review of Systems Constitutional: Negative for chills, fatigue, fever and unexpected weight change. HENT: Rhinorrhea this morning. Negative for congestion, ear pain, nosebleeds, postnasal drip, sinus pressure, sinus pain, sneezing and sore throat. Eyes: Negative for pain, discharge, and itching. Broken blood vessel to left eye. Respiratory: Negative for cough, chest tightness, shortness of breath and wheezing. Cardiovascular: Positive for leg swelling (chronic and unchanged). Negative for chest pain and palpitations. Gastrointestinal: Negative for abdominal pain, constipation, diarrhea, nausea and vomiting. Genitourinary: Negative for dysuria, frequency, hematuria and urgency. Musculoskeletal: Positive for back pain (with kidneys, getting nephrectomy 01/23/2022). Skin: Negative for rash. Allergic/Immunologic: Positive for environmental allergies. Neurological: Negative for dizziness and headaches. Psychiatric/Behavioral: Negative for agitation and sleep disturbance. The patient is not nervous/anxious or depressed. Physical Exam Constitutional: General: He is not in acute distress. Appearance: Normal appearance. He is obese. He is not ill-appearing, toxic-appearing or diaphoretic. Psychiatric: Behavior: Behavior is cooperative. HENT: Eyes: Conjunctivae and lids are normal. Neck: Normal range of motion. Neck supple. Cardiovascular: Normal rate, regular rhythm, S1 normal, S2 normal and intact distal pulses. Murmur heard. Systolic murmur is present with a grade of 2/6 Pulmonary/Chest: Effort normal and breath sounds normal. Abdominal: Soft. Normal appearance and bowel sounds are normal. There is no tenderness. There is no rebound and no CVA tenderness. Surgical scars throughout abdomen, healing well and scabbed. Lymphadenopathy: Head (right side): No submental, no submandibular and no tonsillar adenopathy present. Head (left side): No submental, no submandibular and no tonsillar adenopathy present. Right cervical: No superficial cervical adenopathy present. Left cervical: No superficial cervical adenopathy present. Right: No supraclavicular adenopathy present. Left: No supraclavicular adenopathy present. Neurological: He is oriented to person, place, and time. He has normal reflexes. Skin: Skin is warm, dry and intact. No abrasion and no bruising noted. Psychiatric: Memory and affect normal. His mood appears not anxious. He does not exhibit a depressed mood. Mental Status Oriented to person, place, and time. Assessment and Plan Erectile Dysfunction: Pt doing well on current ED medication. To continue with this. spoke regarding methods to help with erectile dysfunction aside from medication including stress reduction, avoid ETOH with sexual intercourse. will f/u in 6 months. sooner if needed. GERD: GERD fairly controlled at this time. to continue with current medication regimen. encouraged on methods to help with heartburn control aside from medication (avoidance of greasy/fatty/spicy foods, don't eat prior to bedtime, sleep with head inclined, take appropriate medications with food, appropriate diet, lose weight, exercise, etc). Encouraged on getting EGD when able. will f/u in 6 months. sooner if needed. Allergies: allergies controlled at this time. To continue with current medication regimen. spoke regarding methods to help with allergy control including keeping pets outdoors or out of bedroom, cover pillows and mattress in plastic to help prevent dust mites, HEPA filter in furnace/air conditioner and vacuum, stay indoors with windows shut as much as possible with high pollen counts, keep away from smoke/burning, cool mist humidification, nasal saline spray. will f/u in 6 months. sooner if needed. documented in this encounter [facility] 01-04-2022 History and physical note History of Present Illness Mr. Heath is a 56 y.o. male is being evaluated in OPAC due to his medical condition(s) S/p gastric bypass - 2019 Hypertension- stable on medication Kidney transplant 2016 - history of polycystic kidney disease GERD- stable on medication DEMI on CPAP- resolved since wt loss which increases his risk for perioperative complications. Name: Zoie Heath Date of Surgery: 01/23/2022 Surgeon: Kaykay Pre-Op Diagnosis: chronic pain due to kake kidney - polycystic kidney disease Planned Procedure: EXAM UNDER ANESTHESIA, OPEN BILATERAL TYONEK NEPHRECTOMY Do you take Aspirin? Yes, prevenative Does the patient have a central line - no BP 134/74 Pulse 54 Temp 98.1 F (36.7 C) Resp 20 Ht 1.702 m (5' 7 ) Wt 97.9 kg (215 lb 12.8 oz) SpO2 97% BMI 33.80 kg/m Smoking Status Former Smoker ANESTHESIA/AIRWAY Anesthesia alerts -PONV ( scopderm), DEMI risk, renal transplant Personal history of problems related to anesthesia (ex.Malignant Hyperthermia): no Family History of problems related to anesthesia (ex.Malignant Hyperthermia: no Pacer/AICD/DBS: no Glaucoma: no Beta Matthew: no Diabetic Mellitus: no DEMI: no STOP-BANG Risk Assessment (3 or more YES responses is high risk) Do you snore - No Are you frequently tired during the day? - No Have you been observed gasping or choking while asleep? - No Do you have high blood pressure? - No Age more than 50? - Yes Gender male? - Yes Neck circumference greater than 40 cm? - Yes Neck Circumference (cm): 43 BMI more then 35? - No Body mass index is 33.8 kg/m . Mallampati class - 2 TM Distance - 3 FB Oral Opening - 3 FB Teeth - poor condition Cervical range of motion - within normal limits Neck circumference - Neck Circumference (cm): 43 Allergies and adverse drug reactions Allergies Allergen Reactions *Seasonal Anesthesia/Airway A/P - no problems anticipated Intubation Date/Time: 12/26/2019 2:43 PM Airway not difficult General Information and Staff Patient location during procedure: OR Room: [facility] Attending: Danny Mina MD Performed by: Bryon Jacobson DO Indications and Patient Condition Indications for airway management: general anesthesia Spontaneous Ventilation: absent Sedation level: general anesthesia Preoxygenated: yes Patient position: sniffing Mask difficulty assessment: 0 - not attempted Final Airway Details Final airway type: endotracheal airway Successful airway: ETT ETT size: 7.0 mm Cuffed: yes Endotracheal tube insertion site: oral Successful intubation technique: direct laryngoscopy Blade: Fernie Blade size: #4 Facilitating devices/methods: cricoid pressure Cormack-Lehane Classification: grade I - full view of glottis Placement verified by: auscultation, CO2 detection and visualization through the cords Tube secured: 23 CM at the lips Tube Secured with: tape Number of attempts at approach: 1 CARDIOVASCULAR Cardiovascular A/P - This patient is in a low risk category as calculated using the RCRI. RCRI score is 0 points placing the patient at a 4% cardiac risk in the perioperative setting Functional status - : moderate - walks 2 miles, push mows the yard, walks up 2 flights of steps. He denies CP or SOb. BP Readings from Last 3 Encounters: 01/04/22 134/74 01/04/22 141/80 11/30/21 131/75 1. Hypertension - stable on medication PLAN: he has no history of coronary artery disease or cerebral vascular accident. No cardiovascular stents. CARDIAC TESTING: ECG - 01/04/2022, sinus bradycardia , rate 51, ST segments are unremarkable PULMONARY Social History Tobacco Use Smoking Status Former Smoker Packs/day: 1.00 Years: 20.00 Pack years: 20.00 Types: Cigarettes Quit date: 07/01/1999 Years since quittin.5 Smokeless Tobacco Never Used Pulmonary A/P - he has no history of lung disease. Stopped smoking in 1999 SUBSTANCE ABUSE Social History Substance and Sexual Activity Alcohol Use No Social History Substance and Sexual Activity Drug Use Never Substance Abuse A/P - no issues, Pt advised to avoid illicit Rx use, substance abuse, stop smoking leading up to day of surgery due to delayed wound healing. CLOTTING/BLEEDING History of DVT/PE - no Are you a Jehovah Witness? - no In case of surgeons plan or unforseen emergency, are you okay with receiving blood products? - yes Clotting Bleeding A/P - denies issues, Recommend standard DVT/PE prophylaxis postoperatively. DIABETES Diabetes A/P - none Lab Results Component Value Date HGBA1C 5.2 09/25/2021 HGBA1C 5.2 09/25/2021 ADDITIONAL DIAGNOSES OF CONCERN MEDICATIONS Current Outpatient Medications Medication Sig Alclometasone Dipropionate 0.05 % Cream Apply to affected area 1-2 times daily when skin flared (Patient taking differently: Apply 0.05 mg topically As directed as needed. Apply to affected area 1-2 times daily when skin flared) aspirin 81 MG Chew Tab chewable tablet Chew 1 tablet daily every morning. ..Please obtain future renewals of this prescription from your primary care provider. CALCIUM CITRATE PO Take 1,200 mg by mouth 2 times daily. carBAMazepine 100 MG Chew Tab Take 2 tablets daily in the morning and 3 tablets daily in the evening (Patient taking differently: Chew 100 mg 2 times daily. Take 2 tablets daily in the morning and 3 tablets daily in the evening) cetirizine 10 MG tablet Take 1 tablet by mouth daily. (Patient taking differently: Take 10 mg by mouth daily every morning.) cyanocobalamin 500 MCG tablet Take 2 tablets by mouth daily. (Patient taking differently: Take 1,000 mcg by mouth daily every morning.) escitalopram 20 MG tablet Take 1 tablet by mouth daily every morning. ketoconazole 2 % Cream cream Apply to affected area up to twice daily --> okay to use every day without breaks if needed (Patient taking differently: Apply 1 Application topically daily as needed. Apply to affected area up to twice daily --> okay to use every day without breaks if needed) losartan 25 MG tablet Take 1 tablet by mouth daily. (Patient taking differently: Take 25 mg by mouth daily every morning.) magnesium oxide 400 (241.3 Mg) MG tablet Take 1 tablet by mouth 2 times daily. montelukast 10 MG tablet Take 1 tablet by mouth daily. (Patient taking differently: Take 10 mg by mouth daily every morning.) Multiple Vitamins-Minerals (Multivitamins) Chew Tab Chew 2 tablets daily. May take pediatric or adult chalky chewable vitamin; double the recommended daily dose. (Patient taking differently: Chew 2 tablets daily every morning. May take pediatric or adult chalky chewable vitamin; double the recommended daily dose.) mycophenolate sodium (MYFORTIC) [address] Take 3 tablets by mouth every 12 hours. (Patient taking differently: Take 540 mg by mouth every 12 hours. Take 3 tablets every AM and every HS.) OLANZapine 2.5 MG tablet Take 1 tablet by mouth daily every morning. (Patient taking differently: Take 2.5 mg by mouth at bedtime.) omeprazole [address] capsule Take 1 capsule by mouth daily. (Patient taking differently: Take 40 mg by mouth daily every morning.) rOPINIRole 0.5 MG tablet Take 0.5 mg by mouth at bedtime. sildenafil citrate 100 MG tablet Take 0.5-1 tablets by mouth as needed for Erectile Dysfunction. tacrolimus (PROGRAF) 1 MG capsule Take 5 capsules by mouth 2 times daily. terbinafine 1 % Cream cream Apply to affected area (feet) twice daily (Patient taking differently: Place 1 Application on skin As directed as needed. Apply to affected area (feet) twice daily) Medication A/P - Instructions for preoperative medications given to the patient in AVS. LABS Orders Placed This Encounter Type and Cross -Preadmission IN ECG, CLINIC PERFORMED Lab A/P - Labs ordered and reviewed. Lab Results Component Value Date ABORHDTYPE O POS 01/04/2022 Lab Results Component Value Date SODIUM 138 01/02/2022 SODIUM 138 01/02/2022 POTASSIUM 4.7 01/02/2022 POTASSIUM 4.4 01/02/2022 CHLORIDE 106 01/02/2022 CHLORIDE 106 01/02/2022 CO2 25 01/02/2022 CO2 25 01/02/2022 BUN 28 (H) 01/02/2022 CREATSERUM 1.53 (H) 01/02/2022 CREATSERUM 1.53 01/02/2022 Lab Results Component Value Date WBC 5.8 01/02/2022 WBC 5.8 01/02/2022 HGB 15.9 01/02/2022 HGB 15.9 01/02/2022 HCT 45.9 01/02/2022 HCT 45.9 01/02/2022 PLATELET 151 01/02/2022 PLATELET 151 01/02/2022 MCV 89.6 01/02/2022 Lab Results Component Value Date TSH 2.300 09/25/2021 Lab Results Component Value Date GLUCOSE 110 (H) 01/02/2022 OPTIMIZED AT THIS TIME Does pt meet criteria for liberalized NPO? no. If no, why? ASA 3 or more DO Jono Cano [facility] [address] [facility] Review of Systems Review of Systems Constitutional: Negative for chills and fever. HENT: Negative for hearing loss, nosebleeds and sore throat. Eyes: Negative for pain. Respiratory: Negative for cough, wheezing and stridor. Cardiovascular: Negative for chest pain, palpitations and leg swelling. Gastrointestinal: Negative for constipation, nausea and vomiting. Endocrine: Negative for polydipsia. Genitourinary: Positive for flank pain (and lower back pain). Negative for dysuria and urgency. Musculoskeletal: Negative for myalgias and neck pain. Skin: Negative for rash. Neurological: Negative for dizziness, seizures and headaches. Hematological: Does not bruise/bleed easily. Psychiatric/Behavioral: Negative for suicidal ideas. Physical Examination (PHYSEXAM)Physical Exam Vitals and nursing note reviewed. Constitutional: General: He is not in acute distress. Appearance: He is well-developed. He is not toxic-appearing. HENT: Head: Normocephalic and atraumatic. Nose: Nose normal. Eyes: General: Lids are normal. Right eye: No discharge. Left eye: No discharge. Pupils: Pupils are equal, round, and reactive to light. Neck: Thyroid: No thyroid mass. Vascular: Normal carotid pulses. No carotid bruit or JVD. Trachea: Trachea normal. Cardiovascular: Rate and Rhythm: Normal rate and regular rhythm. Pulses: Dorsalis pedis pulses are 2+ on the right side and 2+ on the left side. Posterior tibial pulses are 2+ on the right side and 2+ on the left side. Heart sounds: Normal heart sounds. No murmur heard. No friction rub. No gallop. Pulmonary: Effort: Pulmonary effort is normal. No tachypnea, accessory muscle usage or respiratory distress. Breath sounds: Normal breath sounds. No stridor. No decreased breath sounds, wheezing or rhonchi. Chest: Chest wall: No tenderness. Abdominal: General: Bowel sounds are normal. Palpations: Abdomen is soft. There is no mass. Tenderness: There is no abdominal tenderness. There is no guarding or rebound. Hernia: No hernia is present. Musculoskeletal: General: No deformity. Cervical back: Normal range of motion. No rigidity. Lymphadenopathy: Head: Right side of head: No submandibular or occipital adenopathy. Left side of head: No submandibular or occipital adenopathy. Cervical: No cervical adenopathy. Skin: General: Skin is warm and dry. Findings: No erythema or rash. Nails: There is no clubbing. Neurological: Mental Status: He is alert and oriented to person, place, and time. Cranial Nerves: No cranial nerve deficit. Coordination: Coordination normal. Psychiatric: Attention and Perception: He is attentive. Mood and Affect: Affect is not inappropriate. Behavior: Behavior normal. Thought Content: Thought content normal. Judgment: Judgment normal. Judgment is not inappropriate. Blood pressure 134/74, pulse 54, temperature 98.1 F (36.7 C), resp. rate 20, height 1.702 m (5' 7 ), weight 97.9 kg (215 lb 12.8 oz), SpO2 97 %. 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 Chronic kidney disease, stage 4, severely decreased GFR dialysis 3x weekly Depression 2011 1 suicide attempt in 2010 Diverticulosis Dry skin severe dry skin on bottom of bilateral feet - cracked heels ESRD on dialysis 02/22/2011 Fatigue GERD (gastroesophageal reflux disease) Hyperparathyroidism, secondary renal Hyperphosphatemia Inguinal hernia Insomnia Kidney transplant recipient Migraine Night muscle spasms Obesity (BMI 30-39.9) Obesity, Class III, BMI 40-49.9 (morbid obesity) 01/29/2019 DEMI on CPAP Osteoarthritis of knee Polycystic kidney disease 1999 Snoring Umbilical hernia not yet repaired Past Surgical History: Procedure Laterality Date APPENDECTOMY LAPAROSCOPIC N/A 12/26/2019 Laterality: N/A; Surgeon: Rosy Lynn DO; Location: [facility] MAIN OR GASTRECTOMY LONGITUDINAL (SLEEVE) LAPAROSCOPIC N/A 08/10/2019 Laterality: N/A; Surgeon: Saira Moore MD; Location: [facility] SAME DAY SURGERY MAIN OR EGD DIAGNOSTIC N/A 08/10/2019 Laterality: N/A; Surgeon: Saira Moore MD; Location: [facility] SAME DAY SURGERY MAIN OR EGD DIAGNOSTIC N/A 04/24/2019 Laterality: N/A; Surgeon: Nahomy Santos MD; Location: [facility] ENDOSCOPY LAPAROTOMY EXPLORATORY N/A 02/27/2019 Laterality: N/A; Surgeon: Raul Lott MD; Location: [facility] MAIN OR HERNIA REPAIR 02/27/2019 REPAIR HERNIA UMBILICAL OPEN W/ MESH N/A 05/09/2017 Laterality: N/A; Surgeon: CORNEL Elizondo; Location: [facility] MAIN OR KIDNEY TRANSPLANT W/O TYONEK NEPHRECTOMY N/A 09/25/2016 Laterality: N/A; Surgeon: Jose Shaw MD; Location: [facility] MAIN OR IN KNEE SCOPE, MENISC TRANSPLANT Right 11/12/2014 right knee scope with lateral meniscus repair per Dr. Zepeda HERNIA REPAIR Right 01/08/2012 inguinal - uncomplicated HERNIA REPAIR 01/08/2012 umbilical - incarcerated CREATION ARTERIOVENOUS FISTULA W/ AUTOGENOUS GRAFT Left 2010 CREATION ARTERIOVENOUS FISTULA W/ NONAUTOGENOUS GRAFT 2010 SHOULDER SURGERY Left 2007 clavicle repair and shoulder arthroscopy CHOLECYSTECTOMY 2004 KNEE SURGERY Left 1992 arthroscopy ADENOIDECTOMY EXCISION FISTULA LACTIFEROUS DUCT TONSILLECTOMY Patient Care Team: Mariana Miranda APRN-TAMY as PCP - General (Nurse Practitioner - Family) Coordinator Transplant (Inactive) as PCP - Lottery Office Manager Family History Problem Relation Age of Onset Kidney Disease Mother PKD; transplant Hypertension Mother Diabetes Father Diabetes Sister Alzheimer's Maternal Grandmother Other - Specify Maternal Grandfather esrd Anesth Problems Neg Hx Social History Socioeconomic History Marital status: Spouse name: Derick Number of children: 3 Years of education: 12 Tobacco Use Smoking status: Former Smoker Packs/day: 1.00 Years: 20.00 Pack years: 20.00 Types: Cigarettes Quit date: 07/01/1999 Years since quittin.5 Smokeless tobacco: Never Used Vaping Use Vaping Use: Never used Substance and Sexual Activity Alcohol use: No Drug use: Never Other Topics Concern Domestic Violence No [facility] 01-04-2022 History and physical note History of Present Illness Mr. Heath is a 56 y.o. male is being evaluated in OPAC due to his medical condition(s) S/p gastric bypass - 2019 Hypertension- stable on medication Kidney transplant 2016 - history of polycystic kidney disease GERD- stable on medication DEMI on CPAP- resolved since wt loss which increases his risk for perioperative complications. Name: Zoie Heath Date of Surgery: 01/23/2022 Surgeon: Kaykay Pre-Op Diagnosis: chronic pain due to kake kidney - polycystic kidney disease Planned Procedure: EXAM UNDER ANESTHESIA, OPEN BILATERAL TYONEK NEPHRECTOMY Do you take Aspirin? Yes, prevenative Does the patient have a central line - no BP 134/74 Pulse 54 Temp 98.1 F (36.7 C) Resp 20 Ht 1.702 m (5' 7 ) Wt 97.9 kg (215 lb 12.8 oz) SpO2 97% BMI 33.80 kg/m Smoking Status Former Smoker ANESTHESIA/AIRWAY Anesthesia alerts -PONV ( scopderm), DEMI risk, renal transplant Personal history of problems related to anesthesia (ex.Malignant Hyperthermia): no Family History of problems related to anesthesia (ex.Malignant Hyperthermia: no Pacer/AICD/DBS: no Glaucoma: no Beta Matthew: no Diabetic Mellitus: no DEMI: no STOP-BANG Risk Assessment (3 or more YES responses is high risk) Do you snore - No Are you frequently tired during the day? - No Have you been observed gasping or choking while asleep? - No Do you have high blood pressure? - No Age more than 50? - Yes Gender male? - Yes Neck circumference greater than 40 cm? - Yes Neck Circumference (cm): 43 BMI more then 35? - No Body mass index is 33.8 kg/m . Mallampati class - 2 TM Distance - 3 FB Oral Opening - 3 FB Teeth - poor condition Cervical range of motion - within normal limits Neck circumference - Neck Circumference (cm): 43 Allergies and adverse drug reactions Allergies Allergen Reactions *Seasonal Anesthesia/Airway A/P - no problems anticipated Intubation Date/Time: 12/26/2019 2:43 PM Airway not difficult General Information and Staff Patient location during procedure: OR Room: [facility] Attending: Danny Mina MD Performed by: Bryon Jacobson DO Indications and Patient Condition Indications for airway management: general anesthesia Spontaneous Ventilation: absent Sedation level: general anesthesia Preoxygenated: yes Patient position: sniffing Mask difficulty assessment: 0 - not attempted Final Airway Details Final airway type: endotracheal airway Successful airway: ETT ETT size: 7.0 mm Cuffed: yes Endotracheal tube insertion site: oral Successful intubation technique: direct laryngoscopy Blade: Fernie Blade size: #4 Facilitating devices/methods: cricoid pressure Cormack-Lehane Classification: grade I - full view of glottis Placement verified by: auscultation, CO2 detection and visualization through the cords Tube secured: 23 CM at the lips Tube Secured with: tape Number of attempts at approach: 1 CARDIOVASCULAR Cardiovascular A/P - This patient is in a low risk category as calculated using the RCRI. RCRI score is 0 points placing the patient at a 4% cardiac risk in the perioperative setting Functional status - : moderate - walks 2 miles, push mows the yard, walks up 2 flights of steps. He denies CP or SOb. BP Readings from Last 3 Encounters: 01/04/22 134/74 01/04/22 141/80 11/30/21 131/75 1. Hypertension - stable on medication PLAN: he has no history of coronary artery disease or cerebral vascular accident. No cardiovascular stents. CARDIAC TESTING: ECG - 01/04/2022, sinus bradycardia , rate 51, ST segments are unremarkable PULMONARY Social History Tobacco Use Smoking Status Former Smoker Packs/day: 1.00 Years: 20.00 Pack years: 20.00 Types: Cigarettes Quit date: 07/01/1999 Years since quittin.5 Smokeless Tobacco Never Used Pulmonary A/P - he has no history of lung disease. Stopped smoking in 1999 SUBSTANCE ABUSE Social History Substance and Sexual Activity Alcohol Use No Social History Substance and Sexual Activity Drug Use Never Substance Abuse A/P - no issues, Pt advised to avoid illicit Rx use, substance abuse, stop smoking leading up to day of surgery due to delayed wound healing. CLOTTING/BLEEDING History of DVT/PE - no Are you a Jehovah Witness? - no In case of surgeons plan or unforseen emergency, are you okay with receiving blood products? - yes Clotting Bleeding A/P - denies issues, Recommend standard DVT/PE prophylaxis postoperatively. DIABETES Diabetes A/P - none Lab Results Component Value Date HGBA1C 5.2 09/25/2021 HGBA1C 5.2 09/25/2021 ADDITIONAL DIAGNOSES OF CONCERN MEDICATIONS Current Outpatient Medications Medication Sig Alclometasone Dipropionate 0.05 % Cream Apply to affected area 1-2 times daily when skin flared (Patient taking differently: Apply 0.05 mg topically As directed as needed. Apply to affected area 1-2 times daily when skin flared) aspirin 81 MG Chew Tab chewable tablet Chew 1 tablet daily every morning. ..Please obtain future renewals of this prescription from your primary care provider. CALCIUM CITRATE PO Take 1,200 mg by mouth 2 times daily. carBAMazepine 100 MG Chew Tab Take 2 tablets daily in the morning and 3 tablets daily in the evening (Patient taking differently: Chew 100 mg 2 times daily. Take 2 tablets daily in the morning and 3 tablets daily in the evening) cetirizine 10 MG tablet Take 1 tablet by mouth daily. (Patient taking differently: Take 10 mg by mouth daily every morning.) cyanocobalamin 500 MCG tablet Take 2 tablets by mouth daily. (Patient taking differently: Take 1,000 mcg by mouth daily every morning.) escitalopram 20 MG tablet Take 1 tablet by mouth daily every morning. ketoconazole 2 % Cream cream Apply to affected area up to twice daily --> okay to use every day without breaks if needed (Patient taking differently: Apply 1 Application topically daily as needed. Apply to affected area up to twice daily --> okay to use every day without breaks if needed) losartan 25 MG tablet Take 1 tablet by mouth daily. (Patient taking differently: Take 25 mg by mouth daily every morning.) magnesium oxide 400 (241.3 Mg) MG tablet Take 1 tablet by mouth 2 times daily. montelukast 10 MG tablet Take 1 tablet by mouth daily. (Patient taking differently: Take 10 mg by mouth daily every morning.) Multiple Vitamins-Minerals (Multivitamins) Chew Tab Chew 2 tablets daily. May take pediatric or adult chalky chewable vitamin; double the recommended daily dose. (Patient taking differently: Chew 2 tablets daily every morning. May take pediatric or adult chalky chewable vitamin; double the recommended daily dose.) mycophenolate sodium (MYFORTIC) [address] Take 3 tablets by mouth every 12 hours. (Patient taking differently: Take 540 mg by mouth every 12 hours. Take 3 tablets every AM and every HS.) OLANZapine 2.5 MG tablet Take 1 tablet by mouth daily every morning. (Patient taking differently: Take 2.5 mg by mouth at bedtime.) omeprazole [address] capsule Take 1 capsule by mouth daily. (Patient taking differently: Take 40 mg by mouth daily every morning.) rOPINIRole 0.5 MG tablet Take 0.5 mg by mouth at bedtime. sildenafil citrate 100 MG tablet Take 0.5-1 tablets by mouth as needed for Erectile Dysfunction. tacrolimus (PROGRAF) 1 MG capsule Take 5 capsules by mouth 2 times daily. terbinafine 1 % Cream cream Apply to affected area (feet) twice daily (Patient taking differently: Place 1 Application on skin As directed as needed. Apply to affected area (feet) twice daily) Medication A/P - Instructions for preoperative medications given to the patient in AVS. LABS Orders Placed This Encounter Type and Cross -Preadmission IN ECG, CLINIC PERFORMED Lab A/P - Labs ordered and reviewed. Lab Results Component Value Date ABORHDTYPE O POS 01/04/2022 Lab Results Component Value Date SODIUM 138 01/02/2022 SODIUM 138 01/02/2022 POTASSIUM 4.7 01/02/2022 POTASSIUM 4.4 01/02/2022 CHLORIDE 106 01/02/2022 CHLORIDE 106 01/02/2022 CO2 25 01/02/2022 CO2 25 01/02/2022 BUN 28 (H) 01/02/2022 CREATSERUM 1.53 (H) 01/02/2022 CREATSERUM 1.53 01/02/2022 Lab Results Component Value Date WBC 5.8 01/02/2022 WBC 5.8 01/02/2022 HGB 15.9 01/02/2022 HGB 15.9 01/02/2022 HCT 45.9 01/02/2022 HCT 45.9 01/02/2022 PLATELET 151 01/02/2022 PLATELET 151 01/02/2022 MCV 89.6 01/02/2022 Lab Results Component Value Date TSH 2.300 09/25/2021 Lab Results Component Value Date GLUCOSE 110 (H) 01/02/2022 OPTIMIZED AT THIS TIME Does pt meet criteria for liberalized NPO? no. If no, why? ASA 3 or more DO Jono Cano [facility] Perioperative Clinic [facility] [address] [facility] Review of Systems Review of Systems Constitutional: Negative for chills and fever. HENT: Negative for hearing loss, nosebleeds and sore throat. Eyes: Negative for pain. Respiratory: Negative for cough, wheezing and stridor. Cardiovascular: Negative for chest pain, palpitations and leg swelling. Gastrointestinal: Negative for constipation, nausea and vomiting. Endocrine: Negative for polydipsia. Genitourinary: Positive for flank pain (and lower back pain). Negative for dysuria and urgency. Musculoskeletal: Negative for myalgias and neck pain. Skin: Negative for rash. Neurological: Negative for dizziness, seizures and headaches. Hematological: Does not bruise/bleed easily. Psychiatric/Behavioral: Negative for suicidal ideas. Physical Examination (PHYSEXAM)Physical Exam Vitals and nursing note reviewed. Constitutional: General: He is not in acute distress. Appearance: He is well-developed. He is not toxic-appearing. HENT: Head: Normocephalic and atraumatic. Nose: Nose normal. Eyes: General: Lids are normal. Right eye: No discharge. Left eye: No discharge. Pupils: Pupils are equal, round, and reactive to light. Neck: Thyroid: No thyroid mass. Vascular: Normal carotid pulses. No carotid bruit or JVD. Trachea: Trachea normal. Cardiovascular: Rate and Rhythm: Normal rate and regular rhythm. Pulses: Dorsalis pedis pulses are 2+ on the right side and 2+ on the left side. Posterior tibial pulses are 2+ on the right side and 2+ on the left side. Heart sounds: Normal heart sounds. No murmur heard. No friction rub. No gallop. Pulmonary: Effort: Pulmonary effort is normal. No tachypnea, accessory muscle usage or respiratory distress. Breath sounds: Normal breath sounds. No stridor. No decreased breath sounds, wheezing or rhonchi. Chest: Chest wall: No tenderness. Abdominal: General: Bowel sounds are normal. Palpations: Abdomen is soft. There is no mass. Tenderness: There is no abdominal tenderness. There is no guarding or rebound. Hernia: No hernia is present. Musculoskeletal: General: No deformity. Cervical back: Normal range of motion. No rigidity. Lymphadenopathy: Head: Right side of head: No submandibular or occipital adenopathy. Left side of head: No submandibular or occipital adenopathy. Cervical: No cervical adenopathy. Skin: General: Skin is warm and dry. Findings: No erythema or rash. Nails: There is no clubbing. Neurological: Mental Status: He is alert and oriented to person, place, and time. Cranial Nerves: No cranial nerve deficit. Coordination: Coordination normal. Psychiatric: Attention and Perception: He is attentive. Mood and Affect: Affect is not inappropriate. Behavior: Behavior normal. Thought Content: Thought content normal. Judgment: Judgment normal. Judgment is not inappropriate. Blood pressure 134/74, pulse 54, temperature 98.1 F (36.7 C), resp. rate 20, height 1.702 m (5' 7 ), weight 97.9 kg (215 lb 12.8 oz), SpO2 97 %. 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 Chronic kidney disease, stage 4, severely decreased GFR dialysis 3x weekly Depression 2010 1 suicide attempt in 2010 Diverticulosis Dry skin severe dry skin on bottom of bilateral feet - cracked heels ESRD on dialysis 02/22/2011 Fatigue GERD (gastroesophageal reflux disease) Hyperparathyroidism, secondary renal Hyperphosphatemia Inguinal hernia Insomnia Kidney transplant recipient Migraine Night muscle spasms Obesity (BMI 30-39.9) Obesity, Class III, BMI 40-49.9 (morbid obesity) 01/29/2019 DEMI on CPAP Osteoarthritis of knee Polycystic kidney disease 2000 Snoring Umbilical hernia not yet repaired Past Surgical History: Procedure Laterality Date APPENDECTOMY LAPAROSCOPIC N/A 12/26/2019 Laterality: N/A; Surgeon: Rosy Lynn DO; [facility] GASTRECTOMY LONGITUDINAL (SLEEVE) LAPAROSCOPIC N/A 08/10/2019 Laterality: N/A; Surgeon: Saira Moore MD; [facility] SAME DAY SURGERY MAIN OR EGD DIAGNOSTIC N/A 08/10/2019 Laterality: N/A; Surgeon: Saiar Moore MD; [facility] SAME [facility] SURGERY MAIN OR EGD DIAGNOSTIC N/A 04/24/2019 Laterality: N/A; Surgeon: Nahomy Santos MD; [facility] ENDOSCOPY LAPAROTOMY EXPLORATORY N/A 02/27/2019 Laterality: N/A; Surgeon: Raul Lott MD; [facility] MA[facility] OR HERNIA REPAIR 02/27/2019 REPAIR HERNIA UMBILICAL OPEN W/ MESH N/A 05/09/2017 Laterality: N/A; Surgeon: CORNEL Elizondo; [facility] MAIN OR KIDNEY TRANSPLANT W/O TYONEK NEPHRECTOMY N/A 09/25/2016 Laterality: N/A; Surgeon: Jose Shaw MD; [facility] MAIN OR IN KNEE SCOPE, MENISC TRANSPLANT Right 11/12/2014 right knee scope with lateral meniscus repair per Dr. Zepeda HERNIA REPAIR Right 01/08/2012 inguinal - uncomplicated HERNIA REPAIR 01/08/2012 umbilical - incarcerated CREATION ARTERIOVENOUS FISTULA W/ AUTOGENOUS GRAFT Left 2009 CREATION ARTERIOVENOUS FISTULA W/ NONAUTOGENOUS GRAFT 2010 SHOULDER SURGERY Left 2007 clavicle repair and shoulder arthroscopy CHOLECYSTECTOMY 2005 KNEE SURGERY Left 1992 arthroscopy ADENOIDECTOMY EXCISION FISTULA LACTIFEROUS DUCT TONSILLECTOMY Patient Care Team: Mariana Miranda APRN-MACHINE STAMPER as PCP - General (Nurse Practitioner - Family) Coordinator Transplant (Inactive) as PCP - Lottery Office Manager Family History Problem Relation Age of Onset Kidney Disease Mother PKD; transplant Hypertension Mother Diabetes Father Diabetes Sister Alzheimer's Maternal Grandmother Other - Specify Maternal Grandfather esrd Anesth Problems Neg Hx Social History Socioeconomic History Marital status: Spouse name: Derick Number of children: 3 Years of education: 12 Tobacco Use Smoking status: Former Smoker Packs/day: 1.00 Years: 20.00 Pack years: 20.00 Types: Cigarettes Quit date: 07/01/1999 Years since quittin.5 Smokeless tobacco: Never Used Vaping Use Vaping Use: Never used Substance and Sexual Activity Alcohol use: No Drug use: Never Other Topics Concern Domestic Violence No documented in this encounter [facility] 01-04-2022 Instructions Cayla Dean RN - 01/04/2022 11:13 AM EDT Patient Medication Instructions: - Only take : carbamazepine escitalopram mycophenolate sodium olanzapine omeprazole Tacrolimus on the morning of surgery with a sip of water. Do not take any of your other medications on the morning of surgery. If you use an Inhaler/Inhalers on a daily basis, then use your inhaler on the morning of surgery. Stop taking losartan 24 hours prior to surgery. Do not use aspirin starting 7 days prior to surgery. - Do NOT take herbal medications and supplements (including multi-vitamin, garlic, Glucosamine - Chondroitin, gingko, ginseng, Vitamin E, Vitamin A, probiotics) 2 weeks before surgery, unless otherwise instructed above. - Do NOT take Excedrin, ibuprofen, Advil, Voltaren (Diclofenac), Motrin, naproxen, or Aleve, Mobic (Meloxicam) for the 7-14 days before surgery. Acetaminophen (Tylenol) is ok to take up until the day of surgery. Patient Pre-Operative Instructions: Diet Instructions: -NO food or drink after 11 pm the night before surgery except for enough water to take your medications. (No Candy, Mints and/or Gum) - Do NOT wear any hearing aids, jewelry, watches, rings, hairpieces, makeup, glasses or contact lenses with you into your surgery. - Shower the night before and the morning of surgery. - Do NOT shave, or pluck hair from anywhere near the surgical site one week prior to surgery. - Doyle your teeth and rinse your mouth the morning of surgery. - Do NOT bring your dentures or partials with you into surgery. They may be lost. Give them to someone to bring to you after surgery. If you are unable to complete your scheduled testing or appointments made by [facility] please contact [facility] at [phone]. Failure to do so could delay or cancel your surgery. If you become ill, develop a fever, cough, or any type of infection within 14 days of your scheduled surgery, please call the surgeon's office. You may need to have your surgery moved, as we would not want to put you at risk for complications due to an illness. If you are placed on Antibiotics within 1 week of surgery, please notify our team immediately. - If you have Sleep apnea and have a CPAP or BIPAP, then bring your CPAP mask and machine with you to the hospital. Patient identified as being at high risk for sleep apnea. Patient education material for obstructive sleep apnea given and reviewed. To lessen your chance of getting an infection after your surgery, you will need to wash your skin with a special soap called 4% Chlorhexidine Gluconate (CHG) before your surgery. Your nurse has given you CHG soap today and written instructions; Getting Your Skin Ready for Surgery . Please review the instructions carefully prior to your surgery. ASPEN/MUSA Please contact Medical Information Management Department for all records requests. [phone] [phone] documented in this encounter [facility] 11-30-2021 History and physical note Images from the original note were not included. HPI 56 y.o. 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 He received a donor Kidney Transplant on 09/25/2016 (Kidney). He has been doing well since his transplant until 08/2021. He has constant stabbing bilateral flank and back pain that he rates a 5/10. Sitting too longs is bothersome, moving too much is bothersome. Tylenol sometimes takes the edge off . Denies GH, UTI, dysuria, abdominal distention or bloating. He has been experiencing more acid reflux recently. EGD scheduled next week to evaluate. Energy and appetite are good. Bowels are moving. Dr. Giraldo recommended bilateral robotic nephrectomy. 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 Past Surgical History: He has a past surgical history that includes cholecystectomy (2004); shoulder surgery (Left, 2007); knee surgery (Left, 1992); hernia repair (Right, 01/08/2012); creation arteriovenous fistula w/ autogenous graft (Left, 2009); tonsillectomy; kidney transplant w/o kake nephrectomy (N/A, 09/25/2016); pr knee scope, menisc transplant (Right, 11/12/2014); adenoidectomy; hernia repair (01/08/2012); creation arteriovenous fistula w/ nonautogenous graft (2009); repair hernia umbilical open w/ mesh (N/A, 05/09/2017); excision fistula lactiferous duct; laparotomy exploratory (N/A, 02/27/2019); hernia repair (02/27/2019); egd diagnostic (N/A, 04/24/2019); gastrectomy longitudinal (sleeve) laparoscopic (N/A, 08/10/2019); egd diagnostic (N/A, 08/10/2019); and appendectomy laparoscopic (N/A, 12/26/2019). Medications: He has a current medication list which includes the following prescription(s): alclometasone dipropionate, aspirin, calcium citrate, carbamazepine, cetirizine, cyanocobalamin, escitalopram, ketoconazole, losartan, magnesium oxide, montelukast, multivitamins, mycophenolate sodium, olanzapine, omeprazole, ropinirole, sildenafil citrate, tacrolimus, and terbinafine. Allergies: He is allergic to *seasonal. Social History He reports that he quit smoking about 22 years ago. His smoking use included cigarettes and pipe. He has a 20.00 pack-year smoking history. He has never used smokeless tobacco. He reports that he does not drink alcohol and does not use drugs. Family History: He family history includes Alzheimer's in his maternal grandmother; Diabetes in his father and sister; Hypertension in his mother; Kidney Disease in his mother; Other - Specify in his maternal grandfather. Review of Systems Constitutional: Negative for fever, chills, weight loss, weight gain and malaise/fatigue. Cardiovascular: Negative for chest pain. Respiratory: Negative for shortness of breath. Gastrointestinal: Negative for nausea, abdominal pain, diarrhea, constipation. Genitourinary: see HPI Musculoskeletal: Negative for back pain and joint pain. Neurological: Negative for dizziness and headaches. Psychiatric- no depression or anxiety. Integumentary- no rashes Physical Exam BP 131/75 Pulse 51 Temp 98.2 F (36.8 C) Resp 16 Ht 1.702 m (5' 7 ) Wt 96.9 kg (213 lb 11.2 oz) SpO2 96% BMI 33.47 kg/m Smoking Status Former Smoker Constitutional: NAD, WDWN. HEENT: NCAT. Conjunctivae normal. MMM. Cardiovascular: Regular rate. Pulmonary/Chest: Respirations are even and non-labored bilaterally. Abdominal: Soft. No distension, tenderness, masses or guarding. No CVA tenderness. Neurological: A + O x 3. Normal gait. Extremities: BRYAN x 4, Warm. No clubbing. No cyanosis. Skin: [place], warm and dry. No rashes noted. Diagnostic Tests Lab Results Component Value Date LEUKOCESTUR TRACE (A) 02/27/2019 NITRITE NEG 10/09/2021 PROTEIN NEG 10/09/2021 UPH 5.5 02/27/2019 BLOOD NEG 10/09/2021 SPECIFICGRAV 1.025 10/09/2021 GLUCOSE NEG 10/09/2021 Lab Results Component Value Date CREATSERUM 1.30 (H) 09/25/2021 CREATSERUM 1.42 (H) 07/13/2021 CREATSERUM 1.42 07/13/2021 CREATSERUM 1.47 (H) 05/01/2021 CREATSERUM 1.47 05/01/2021 CREATSERUM 1.40 (H) 02/27/2021 CREATSERUM 1.4 02/27/2021 CREATSERUM 1.49 (H) 12/29/2020 CREATSERUM 1.49 12/29/2020 CREATSERUM 1.40 (H) 11/03/2020 CREATSERUM 1.4 11/03/2020 CREATSERUM 1.46 (H) 08/30/2020 CREATSERUM 1.46 08/30/2020 CREATSERUM 1.64 (H) 07/06/2020 CREATSERUM 1.64 07/06/2020 CREATSERUM 1.56 02/26/2020 Lab Results Component Value Date SODIUM 134 (L) 09/25/2021 POTASSIUM 4.7 09/25/2021 CHLORIDE 107 09/25/2021 CO2 24 09/25/2021 BUN 26 (H) 09/25/2021 CREATSERUM 1.30 (H) 09/25/2021 Lab Results Component Value Date ALT 15 09/25/2021 AST 19 09/25/2021 GGT 57 02/09/2011 ALKPHOS 75 09/25/2021 BILITOTAL 0.6 09/25/2021 BILIDIRECT 0.2 05/01/2021 Lab Results Component Value Date WBC 5.2 09/25/2021 HGB 14.9 09/25/2021 HCT 43.9 09/25/2021 PLATELET 166 09/25/2021 MCV 89.2 09/25/2021 No results found for: CRP Lab Results Component Value Date PSA 1.250 07/22/2017 Radiographic Studies Renal US (10/12/21) 1. Polycystic kidneys. 2. Mild hydronephrosis of the right lower quadrant renal transplant which allowing for differences in technique is similar to CT from 12/25/2019. CT AP (12/25/19) 1. Mildly prominent proximal to midportion of the appendix with a large appendicolith in the proximal aspect of the appendix with minimal induration of the surrounding fat without intraluminal air. This might be secondary to early acute appendicitis without perforation or abscess formation. 2. Previously seen right spigelian hernia probably has been reduced or repaired. 3. Polycystic kidney disease with multiple cysts in the liver with several of these cysts in the kake kidneys have increased density probably secondary to hemorrhage however low-grade malignancy would be difficult to exclude. 4. Diverticulosis without diverticulitis. Assessment 56 y.o. 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 He received a donor Kidney Transplant on 09/25/2016 (Kidney). He has been doing well since his transplant until 08/2021. He has constant stabbing bilateral flank and back pain that he rates a 5/10. Plan - [facility] - Refer to Dr. Mccracken for surgery Associated attestation - Karon Howard MD - 11/30/2021 12:17 PM EDT I have independently interviewed and examined the patient and agree with the history, findings, and assessment as documented by Elena Hu N.P., below. I discussed the case with Elena Hu N.P. I have edited the document as appropriate. In addition: Zoie Heath is a 56 y.o. male who presents in consultation for consideration for bilateral robotic kake nephrectomy of polycystic kidneys which are painfully symptomatic. He was referred by Dr. Giraldo. He has a past medical history of umbilical hernia repair and right inguinal hernia repair with mesh. On examination he has a small periumbilical scar and a right lower quadrant Garcia incision. The Garcia incision is the 1 that herniated and was repaired with mesh. The umbilical hernia was repaired separately had a previous occasion and the patient believes he has mesh in this area. I reviewed images from the November 2019 CT scan. The renal transplant is in the right iliac fossa. I advised the patient that I do think a bilateral kake nephrectomy is indicated given his symptoms. I typically perform this operation through the conventional midline open approach. I have discussed the case via e-mail with my colleague Dr. Mccracken who has experience robotic surgeon. I recommended that the patient consult with Dr. Mccracken for consideration of bilateral robotic kake nephrectomy. In the meantime I do not believe he needs any additional imaging. We will refer him to [facility] for preoperative clearance. [facility] Work Phone: 11-30-2021 History and physical note Images from the original note were not included. HPI 56 y.o. 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 He received a donor Kidney Transplant on 09/25/2016 (Kidney). He has been doing well since his transplant until 08/2021. He has constant stabbing bilateral flank and back pain that he rates a 5/10. Sitting too longs is bothersome, moving too much is bothersome. Tylenol sometimes takes the edge off . Denies GH, UTI, dysuria, abdominal distention or bloating. He has been experiencing more acid reflux recently. EGD scheduled next week to evaluate. Energy and appetite are good. Bowels are moving. Dr. Giraldo recommended bilateral robotic nephrectomy. 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 Past Surgical History: He has a past surgical history that includes cholecystectomy (2004); shoulder surgery (Left, 2007); knee surgery (Left, 1992); hernia repair (Right, 01/08/2012); creation arteriovenous fistula w/ autogenous graft (Left, 2009); tonsillectomy; kidney transplant w/o kake nephrectomy (N/A, 09/25/2016); pr knee scope, menisc transplant (Right, 11/12/2014); adenoidectomy; hernia repair (01/08/2012); creation arteriovenous fistula w/ nonautogenous graft (2009); repair hernia umbilical open w/ mesh (N/A, 05/09/2017); excision fistula lactiferous duct; laparotomy exploratory (N/A, 02/27/2019); hernia repair (02/27/2019); egd diagnostic (N/A, 04/24/2019); gastrectomy longitudinal (sleeve) laparoscopic (N/A, 08/10/2019); egd diagnostic (N/A, 08/10/2019); and appendectomy laparoscopic (N/A, 12/26/2019). Medications: He has a current medication list which includes the following prescription(s): alclometasone dipropionate, aspirin, calcium citrate, carbamazepine, cetirizine, cyanocobalamin, escitalopram, ketoconazole, losartan, magnesium oxide, montelukast, multivitamins, mycophenolate sodium, olanzapine, omeprazole, ropinirole, sildenafil citrate, tacrolimus, and terbinafine. Allergies: He is allergic to *seasonal. Social History He reports that he quit smoking about 22 years ago. His smoking use included cigarettes and pipe. He has a 20.00 pack-year smoking history. He has never used smokeless tobacco. He reports that he does not drink alcohol and does not use drugs. Family History: He family history includes Alzheimer's in his maternal grandmother; Diabetes in his father and sister; Hypertension in his mother; Kidney Disease in his mother; Other - Specify in his maternal grandfather. Review of Systems Constitutional: Negative for fever, chills, weight loss, weight gain and malaise/fatigue. Cardiovascular: Negative for chest pain. Respiratory: Negative for shortness of breath. Gastrointestinal: Negative for nausea, abdominal pain, diarrhea, constipation. Genitourinary: see HPI Musculoskeletal: Negative for back pain and joint pain. Neurological: Negative for dizziness and headaches. Psychiatric- no depression or anxiety. Integumentary- no rashes Physical Exam BP 131/75 Pulse 51 Temp 98.2 F (36.8 C) Resp 16 Ht 1.702 m (5' 7 ) Wt 96.9 kg (213 lb 11.2 oz) SpO2 96% BMI 33.47 kg/m Smoking Status Former Smoker Constitutional: NAD, WDWN. HEENT: NCAT. Conjunctivae normal. MMM. Cardiovascular: Regular rate. Pulmonary/Chest: Respirations are even and non-labored bilaterally. Abdominal: Soft. No distension, tenderness, masses or guarding. No CVA tenderness. Neurological: A + O x 3. Normal gait. Extremities: BRYAN x 4, Warm. No clubbing. No cyanosis. Skin: [place], warm and dry. No rashes noted. Diagnostic Tests Lab Results Component Value Date LEUKOCESTUR TRACE (A) 02/27/2019 NITRITE NEG 10/09/2021 PROTEIN NEG 10/09/2021 UPH 5.5 02/27/2019 BLOOD NEG 10/09/2021 SPECIFICGRAV 1.025 10/09/2021 GLUCOSE NEG 10/09/2021 Lab Results Component Value Date CREATSERUM 1.30 (H) 09/25/2021 CREATSERUM 1.42 (H) 07/13/2021 CREATSERUM 1.42 07/13/2021 CREATSERUM 1.47 (H) 05/01/2021 CREATSERUM 1.47 05/01/2021 CREATSERUM 1.40 (H) 02/27/2021 CREATSERUM 1.4 02/27/2021 CREATSERUM 1.49 (H) 12/29/2020 CREATSERUM 1.49 12/29/2020 CREATSERUM 1.40 (H) 11/03/2020 CREATSERUM 1.4 11/03/2020 CREATSERUM 1.46 (H) 08/30/2020 CREATSERUM 1.46 08/30/2020 CREATSERUM 1.64 (H) 07/06/2020 CREATSERUM 1.64 07/06/2020 CREATSERUM 1.56 02/26/2020 Lab Results Component Value Date SODIUM 134 (L) 09/25/2021 POTASSIUM 4.7 09/25/2021 CHLORIDE 107 09/25/2021 CO2 24 09/25/2021 BUN 26 (H) 09/25/2021 CREATSERUM 1.30 (H) 09/25/2021 Lab Results Component Value Date ALT 15 09/25/2021 AST 19 09/25/2021 GGT 57 02/09/2011 ALKPHOS 75 09/25/2021 BILITOTAL 0.6 09/25/2021 BILIDIRECT 0.2 05/01/2021 Lab Results Component Value Date WBC 5.2 09/25/2021 HGB 14.9 09/25/2021 HCT 43.9 09/25/2021 PLATELET 166 09/25/2021 MCV 89.2 09/25/2021 No results found for: CRP Lab Results Component Value Date PSA 1.250 07/22/2017 Radiographic Studies Renal US (10/12/21) 1. Polycystic kidneys. 2. Mild hydronephrosis of the right lower quadrant renal transplant which allowing for differences in technique is similar to CT from 12/25/2019. CT AP (12/25/19) 1. Mildly prominent proximal to midportion of the appendix with a large appendicolith in the proximal aspect of the appendix with minimal induration of the surrounding fat without intraluminal air. This might be secondary to early acute appendicitis without perforation or abscess formation. 2. Previously seen right spigelian hernia probably has been reduced or repaired. 3. Polycystic kidney disease with multiple cysts in the liver with several of these cysts in the kake kidneys have increased density probably secondary to hemorrhage however low-grade malignancy would be difficult to exclude. 4. Diverticulosis without diverticulitis. Assessment 56 y.o. 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 He received a donor Kidney Transplant on 09/25/2016 (Kidney). He has been doing well since his transplant until 08/2021. He has constant stabbing bilateral flank and back pain that he rates a 5/10. Plan - OPAC - Refer to Dr. Mccracken for surgery Associated attestation - Karon Howard MD - 11/30/2021 12:17 PM EDT I have independently interviewed and examined the patient and agree with the history, findings, and assessment as documented by Elena Hu N.P., below. I discussed the case with Elena Hu N.P. I have edited the document as appropriate. In addition: Zoie Heath is a 56 y.o. male who presents in consultation for consideration for bilateral robotic kake nephrectomy of polycystic kidneys which are painfully symptomatic. He was referred by Dr. Giraldo. He has a past medical history of umbilical hernia repair and right inguinal hernia repair with mesh. On examination he has a small periumbilical scar and a right lower quadrant Garcia incision. The Garcia incision is the 1 that herniated and was repaired with mesh. The umbilical hernia was repaired separately had a previous occasion and the patient believes he has mesh in this area. I reviewed images from the November 2019 CT scan. The renal transplant is in the right iliac fossa. I advised the patient that I do think a bilateral kake nephrectomy is indicated given his symptoms. I typically perform this operation through the conventional midline open approach. I have discussed the case via e-mail with my colleague Dr. Mccracken who has experience robotic surgeon. I recommended that the patient consult with Dr. Mccracken for consideration of bilateral robotic kake nephrectomy. In the meantime I do not believe he needs any additional imaging. We will refer him to OPAC for preoperative clearance. documented in this encounter [facility] 10-26-2021 Instructions Dexter Mcgrath RN - 10/26/2021 10:31 AM EDT - Referral placed with Urology - Return to clinic 09/20/2022 with CORNEL Jones as scheduled documented in this encounter [facility] 10-26-2021 History of Present illness Narrative Images from the original note were not included. PREP SHEET FOR NEPHROLOGY CLINIC Patient Name: Zoie Heath Lottery Office Manager: Chris Curtis Date of Kidney Transplant: 09/25/2016 Primary Disease: Polycystic Kidneys Transplant Frog Farmer: Ariel Hooper Primary Care physician: Mariana Miranda Evaluation for nephrectomy IMMUNOSUPPRESSION AND LABS: Current Immunosuppressive Medication(s) Immunosuppressive Agents mycophenolate sodium (MYFORTIC) [address] Take 3 tablets by mouth every 12 hours. tacrolimus (PROGRAF) 1 MG capsule Take 5 capsules by mouth 2 times daily. I/S levels: Lab Results Component Value Date TACROTRGHMAN 3.8 09/25/2021 TACROTRGHMAN 5.9 07/13/2021 TACROTRGHMAN 2.9 05/01/2021 CHEMISTRY: Lab Results Component Value Date CREATSERUM 1.30 (H) 09/25/2021 CREATSERUM 1.42 (H) 07/13/2021 CREATSERUM 1.42 07/13/2021 HEMATOLOGY: Lab Results Component Value Date WBC 5.2 09/25/2021 WBC 6.4 07/13/2021 WBC 6.4 07/13/2021 Lab Results Component Value Date HGB 14.9 09/25/2021 HGB 14.9 07/13/2021 HGB 14.9 07/13/2021 CURRENT MEDICATIONS: Alclometasone Dipropionate, Calcium Citrate, Multivitamins, OLANZapine, aspirin, carBAMazepine, cetirizine, cyanocobalamin, escitalopram, ketoconazole, losartan, magnesium oxide, montelukast, mycophenolate sodium, omeprazole, rOPINIRole, sildenafil citrate, tacrolimus, and terbinafine [address] [place] [address] [address] [place] [id number] Change in lab frequency / new order today: no Labs needed in clinic today? no COORDINATOR NOTES: Images from the original note were not included. PREP SHEET FOR NEPHROLOGY CLINIC Patient Name: Zoie Heath Lottery Office Manager: Chris Curtis Date of Kidney Transplant: 09/25/2016 Primary Disease: Polycystic Kidneys Transplant Frog Farmer: Ariel Hooper Primary Care physician: Mariana Miranda Last Transplant Appointment: Evaluation for nephrectomy IMMUNOSUPPRESSION AND LABS: Current Immunosuppressive Medication(s) Immunosuppressive Agents mycophenolate sodium (MYFORTIC) [address] Take 3 tablets by mouth every 12 hours. tacrolimus (PROGRAF) 1 MG capsule Take 5 capsules by mouth 2 times daily. I/S levels: Lab Results Component Value Date TACROTRGHMAN 3.8 09/25/2021 TACROTRGHMAN 5.9 07/13/2021 TACROTRGHMAN 2.9 05/01/2021 CHEMISTRY: Lab Results Component Value Date CREATSERUM 1.30 (H) 09/25/2021 CREATSERUM 1.42 (H) 07/13/2021 CREATSERUM 1.42 07/13/2021 HEMATOLOGY: Lab Results Component Value Date WBC 5.2 09/25/2021 WBC 6.4 07/13/2021 WBC 6.4 07/13/2021 Lab Results Component Value Date HGB 14.9 09/25/2021 HGB 14.9 07/13/2021 HGB 14.9 07/13/2021 CURRENT MEDICATIONS: Alclometasone Dipropionate, Calcium Citrate, Multivitamins, OLANZapine, aspirin, carBAMazepine, cetirizine, cyanocobalamin, escitalopram, ketoconazole, losartan, magnesium oxide, montelukast, mycophenolate sodium, omeprazole, rOPINIRole, sildenafil citrate, tacrolimus, and terbinafine [facility] - [address] [place] [address] [facility] [id number] Change in lab frequency / new order today: no Labs needed in clinic today? Physical Exam: Pulse Readings from Last 1 Encounters: 10/26/21 59 BP Readings from Last 1 Encounters: 10/26/21 128/72 Wt Readings from Last 1 Encounters: 10/26/21 92.5 kg (203 lb 14.4 oz) Estimated body mass index is 31.94 kg/m as calculated from the following: Height as of 10/09/21: 1.702 m (5' 7 ). Weight as of this encounter: 92.5 kg (203 lb 14.4 oz). General Appearance: normal HEENT:normal Respiratory: normal Cardiac: normal Abdomen:normal Extremities:normal Other: large PKD with pain Assessment: - 1856 day(s) status post his Donation after Brain donor Kidney Transplant doing well from transplant stand point. He is complaining of abdominal pain likely due to his PKD 1) Kidney function is great creatinine is stable 2) Immunosuppression: [place] 5 mg BID, Myfortic 540 mg BID 3) PKD with abdominal pain: refer to urology for robotic nephrectomy Plan: Labs: Lab Letter: Scripts: Current Outpatient Medications Medication Sig Dispense Refill Alclometasone Dipropionate 0.05 % Cream Apply to affected area 1-2 times daily when skin flared 45 g 3 aspirin 81 MG Chew Tab chewable tablet Chew 1 tablet daily every morning. ..Please obtain future renewals of this prescription from your primary care provider. 30 tablet 11 CALCIUM CITRATE PO Take 1,200 mg by mouth daily. carBAMazepine 100 MG Chew Tab Take 2 tablets daily in the morning and 3 tablets daily in the evening 150 tablet 0 cetirizine 10 MG tablet Take 1 tablet by mouth daily. 90 tablet 1 cyanocobalamin 500 MCG tablet Take 2 tablets by mouth daily. 60 tablet 11 escitalopram 20 MG tablet Take 1 tablet by mouth daily every morning. 30 tablet 0 ketoconazole 2 % Cream cream Apply to affected area up to twice daily --> okay to use every day without breaks if needed 30 g 3 losartan 25 MG tablet Take 1 tablet by mouth daily. 90 tablet 3 magnesium oxide 400 (241.3 Mg) MG tablet Take 1 tablet by mouth 2 times daily. 180 tablet 3 montelukast 10 MG tablet Take 1 tablet by mouth daily. 90 tablet 1 Multiple Vitamins-Minerals (Multivitamins) Chew Tab Chew 2 tablets daily. May take pediatric or adult chalky chewable vitamin; double the recommended daily dose. mycophenolate sodium (MYFORTIC) [address] Take 3 tablets by mouth every 12 hours. 560 tablet 3 OLANZapine 2.5 MG tablet Take 1 tablet by mouth daily every morning. 30 tablet 0 omeprazole [address] capsule Take 1 capsule by mouth daily. May trial MWF dosing after 2 weeks. 30 capsule 2 rOPINIRole 0.5 MG tablet Take 0.5 mg by mouth at bedtime. sildenafil citrate 100 MG tablet Take 0.5-1 tablets by mouth as needed for Erectile Dysfunction. 30 tablet 2 tacrolimus (PROGRAF) 1 MG capsule Take 5 capsules by mouth 2 times daily. 900 capsule 3 terbinafine 1 % Cream cream Apply to affected area (feet) twice daily 36 g 3 No current facility-administered medications for this visit. Mr. Heath is scheduled to return to the [facility] on Visit date not found documented in this encounter [facility] 10-09-2021 Instructions Mariana Miranda, JANICE-MACHINE STAMPER - 10/09/2021 2:46 PM EDT Back Pain: Concern for muscle/bone verses kidney's contributing to pain. Will proceed with imaging of low back as well as renal U/S. He does not appear to have any acute symptoms that suggest as a slipped disk or pinched nerve. I discussed supportive care with the patient, including regular stretching and movement. Heat and ice can also be beneficial. Will call with results once obtained and determine treatment plan accordingly. I have asked the patient to be on the alert for new or increasing symptoms such as worsening pain, new numbness/tingling/radiation of pain, bladder or bowel incontinence, etc and to call directly if such should occur. The patient indicates understanding of these issues and agrees with the plan. Erectile Dysfunction: discussed ED s/sx in depth. pt would like to trial medication management to help with this. discussed risk and potential ADR's with medication management. will rx for Viagra. advised on med, how to take and potential ADR's. spoke regarding methods to help with erectile dysfunction aside from medication including stress reduction, avoid ETOH with sexual intercourse. Will check testosterone levels. will f/u in 3 months. sooner if needed. documented in this encounter [facility] 10-09-2021 History of Present illness Narrative History of Present Illness Back Pain Zoie Heath is a 56 y.o. male who comes in with back pain that started couple months ago. Location lower back. Pain does not radiate to anywhere. Patient experiences pain continuously Trauma/Injury: No Previous similar pain: Yes: When he had a cyst rupture on his kidney. This was short lived, however, and pain now is ongoing. Bladder or Bowel Incontinence/Difficulty: No Tingling, sensory change, focal weakness: No Abdominal Pain: No Dysuria, urgency, frequency, hematuria, flank pain: No Therapies tried so far: nothing. Erectile Dysfunction There is a complaint of erectile problems. Onset of problem was the last four months and is described as cant last (will obtain erection, however, this will not last (here recently, unable to even obtained erection), also, dont get the urge to want to have sex. 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 The patient reports is able to obtain an erection with masturbation. Ejaculatory problems - No . The patient does not believe that these symptoms are related to medications (nothing has changed). Relationship with partner is good. Risk factors for ED include: nothing. Treatments tried in the past include nothing. Review of Systems Constitutional: Negative for chills, fatigue, fever. 4# weight gain since in last HENT: Negative for congestion, ear pain, nosebleeds, postnasal drip, rhinorrhea, sinus pressure, sinus pain, sneezing and sore throat. Eyes: Negative for pain, discharge, redness and itching. Respiratory: Negative for cough, chest tightness, shortness of breath and wheezing. Cardiovascular: Negative for chest pain, palpitations and leg swelling. Gastrointestinal: Negative for abdominal pain, constipation, diarrhea, nausea and vomiting. Genitourinary: Negative for dysuria, frequency, hematuria and urgency. Skin: Negative for rash. Allergic/Immunologic: Positive for environmental allergies. Neurological: Negative for dizziness and headaches. Psychiatric/Behavioral: Negative for agitation and sleep disturbance. The patient is not nervous/anxious. Physical Exam Musculoskeletal/Back: Normal range of motion of back No spinous process tenderness No paraspinal muscular tenderness present in lumbar area Normal sensation, normal strength, normal reflexes Normal gait and balance Negative Straight Leg Raise Test Constitutional: He is oriented to person, place, and time and well-developed, well-nourished, and in no distress. No distress. overweight HENT: Eyes: Conjunctivae and lids are normal. Neck: Normal range of motion. Neck supple. Cardiovascular: Normal rate, regular rhythm, S1 normal, S2 normal and intact distal pulses. Murmur heard. Systolic murmur is present with a grade of 2/6 Pulmonary/Chest: Effort normal and breath sounds normal. Abdominal: Soft. Normal appearance and bowel sounds are normal. There is no tenderness. There is no rebound and no CVA tenderness. Surgical scars throughout abdomen, healing well and scabbed. Lymphadenopathy: Head (right side): No submental, no submandibular and no tonsillar adenopathy present. Head (left side): No submental, no submandibular and no tonsillar adenopathy present. Right cervical: No superficial cervical adenopathy present. Left cervical: No superficial cervical adenopathy present. Right: No supraclavicular adenopathy present. Left: No supraclavicular adenopathy present. Neurological: He is oriented to person, place, and time. He has normal reflexes. Skin: Skin is warm, dry and intact. No abrasion and no bruising noted. Psychiatric: Memory and affect normal. His mood appears not anxious. He does not exhibit a depressed mood. Mental Status Oriented to person, place, and time. Assessment and Plan Back Pain: Concern for muscle/bone verses kidney's contributing to pain. Will proceed with imaging of low back as well as renal U/S. He does not appear to have any acute symptoms that suggest as a slipped disk or pinched nerve. I discussed supportive care with the patient, including regular stretching and movement. Heat and ice can also be beneficial. Will call with results once obtained and determine treatment plan accordingly. I have asked the patient to be on the alert for new or increasing symptoms such as worsening pain, new numbness/tingling/radiation of pain, bladder or bowel incontinence, etc and to call directly if such should occur. The patient indicates understanding of these issues and agrees with the plan. Erectile Dysfunction: discussed ED s/sx in depth. pt would like to trial medication management to help with this. discussed risk and potential ADR's with medication management. will rx for Viagra. advised on med, how to take and potential ADR's. spoke regarding methods to help with erectile dysfunction aside from medication including stress reduction, avoid ETOH with sexual intercourse. Will check testosterone levels. will f/u in 3 months. sooner if needed. documented in this encounter [facility] 09-18-2021 History of Present illness Narrative Images from the original note were not included. Today we were happy to see Zoie Heath at [facility] Transplant Office for evaluation and management of immunosuppression and associated conditions in the setting of solid organ transplantation. As you may be aware Mr. Heath is a 56 y.o. year-old male with a past medical history of ESRD secondary to PKD. He received a donor Kidney Transplant on 09/25/2016 (Kidney). 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 The Myfortic was reduced in dose progressively up to 180 mg BID because of low WBC. He had been on CMV prophylaxis with Valganciclovir. He underwent a ventral hernia repair by Dr. Ny in May. Had L upper arm AVF removed in 2019, done by local vascular Dr. Stringer in [facility] in [place], [place]. Had an incarcerated ventral hernia in March 2019 and underwent ex-lap with small bowel resection and hernia repair. In March he underwent a sleev gastrectomy at [facility] and had lost 30 lbs of weight since then. 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 Chronic kidney disease, stage 4, severely decreased GFR dialysis 3x weekly Depression 2010 1 suicide attempt in 2010 Diverticulosis Dry skin severe dry skin on bottom of bilateral feet - cracked heels ESRD on dialysis 02/22/2011 Fatigue GERD (gastroesophageal reflux disease) Hyperparathyroidism, secondary renal Hyperphosphatemia Inguinal hernia Insomnia Kidney transplant recipient Migraine Night muscle spasms Obesity (BMI 30-39.9) Obesity, Class III, BMI 40-49.9 (morbid obesity) 01/29/2019 DEMI on CPAP Osteoarthritis of knee Polycystic kidney disease 1999 Snoring Umbilical hernia not yet repaired Past Surgical History: Past Surgical History: Procedure Laterality Date APPENDECTOMY LAPAROSCOPIC N/A 12/26/2019 Laterality: N/A; Surgeon: Rosy Lynn DO; Location: [facility] MAIN OR GASTRECTOMY LONGITUDINAL (SLEEVE) LAPAROSCOPIC N/A 08/10/2019 Laterality: N/A; Surgeon: Saira Moore MD; [facility] MA[facility] OR EGD DIAGNOSTIC N/A 08/10/2019 Laterality: N/A; Surgeon: Saira Moore MD; Location: [facility] SAME DAY SURGERY MAIN OR EGD DIAGNOSTIC N/A 04/24/2019 Laterality: N/A; Surgeon: Nahomy Santos MD; Location: [facility] ENDOSCOPY LAPAROTOMY EXPLORATORY N/A 02/27/2019 Laterality: N/A; Surgeon: Raul Lott MD; [facility] HERNIA REPAIR 02/27/2019 REPAIR HERNIA UMBILICAL OPEN W/ MESH N/A 05/09/2017 Laterality: N/A; Surgeon: CORNEL Elizondo; [facility] KIDNEY TRANSPLANT W/O TYONEK NEPHRECTOMY N/A 09/25/2016 Laterality: N/A; Surgeon: Jose Shaw MD; Location: [facility] MAIN OR IN KNEE SCOPE, MENISC TRANSPLANT Right 11/12/2014 right knee scope with lateral meniscus repair per Dr. Zepeda HERNIA REPAIR Right 01/08/2012 inguinal - uncomplicated HERNIA REPAIR 01/08/2012 umbilical - incarcerated CREATION ARTERIOVENOUS FISTULA W/ AUTOGENOUS GRAFT Left 2009 CREATION ARTERIOVENOUS FISTULA W/ NONAUTOGENOUS GRAFT 2010 SHOULDER SURGERY Left 2008 clavicle repair and shoulder arthroscopy CHOLECYSTECTOMY 2005 KNEE SURGERY Left 1992 arthroscopy ADENOIDECTOMY EXCISION FISTULA LACTIFEROUS DUCT TONSILLECTOMY Medications: Current Outpatient Medications Medication Sig Alclometasone Dipropionate 0.05 % Cream Apply to affected area 1-2 times daily when skin flared aspirin 81 MG Chew Tab chewable tablet Chew 1 tablet daily every morning. ..Please obtain future renewals of this prescription from your primary care provider. CALCIUM CITRATE PO Take 1,200 mg by mouth daily. carBAMazepine 100 MG Chew Tab Take 2 tablets daily in the morning and 3 tablets daily in the evening cetirizine 10 MG tablet Take 1 tablet by mouth daily. cyanocobalamin 500 MCG tablet Take 2 tablets by mouth daily. escitalopram 20 MG tablet Take 1 tablet by mouth daily every morning. famotidine 20 MG tablet Take 1 tablet by mouth 2 times daily. ketoconazole 2 % Cream cream Apply to affected area up to twice daily --> okay to use every day without breaks if needed losartan 25 MG tablet Take 1 tablet by mouth daily. magnesium oxide 400 (241.3 Mg) MG tablet Take 1 tablet by mouth 2 times daily. montelukast 10 MG tablet Take 1 tablet by mouth daily. Multiple Vitamins-Minerals (Multivitamins) Chew Tab Chew 2 tablets daily. May take pediatric or adult chalky chewable vitamin; double the recommended daily dose. mycophenolate sodium (MYFORTIC) [address] Take 3 tablets by mouth every 12 hours. OLANZapine 2.5 MG tablet Take 1 tablet by mouth daily every morning. omeprazole [address] capsule Take 1 capsule by mouth daily. May trial MWF dosing after 2 weeks. rOPINIRole 0.5 MG tablet Take 0.5 mg by mouth at bedtime. tacrolimus (PROGRAF) 1 MG capsule Take 5 capsules by mouth 2 times daily. terbinafine 1 % Cream cream Apply to affected area (feet) twice daily Review of systems Const: negative for fever and hot flashes, malaise CV: negative for chest pain, dyspnea on exertion, edema, irregular heartbeat and shortness of breath Lungs: negative for cough, shortness of breath and sputum changes GI: negative for abdominal pain, blood in stools, change in bowel habits, change in stools, hematemesis and melena, appetite loss and nausea/vomiting : negative for dysuria and hematuria Derm: negative for rash or pruritus Physical Exam There were no vitals taken for this visit. Estimated body mass index is 32.26 kg/m as calculated from the following: Height as of 07/10/21: 1.702 m (5' 7 ). Weight as of 07/27/21: 93.4 kg (206 lb). General appearance: alert, well appearing, and in no distress. Chest: clear to auscultation, no wheezes, rales or rhonchi, symmetric air entry. CVS exam: normal rate, regular rhythm, normal S1, S2, no murmurs, rubs, clicks or gallops. Abdominal exam: soft, nontender, nondistended, no masses or organomegaly. Exam of extremities: peripheral pulses normal, no pedal edema, no clubbing or cyanosis Assessment and Plan: 1) Graft function: Creatinine stable 1.4. UPC <1G Last Urine Protein/Creatinine Ratio: PROTEIN/CREAT RATIO, URINE Date Value Ref Range Status 05/01/2021 0.6 Final Comment: REFERENCE RANGES <0.2 NORMAL 0.2-3.5 NON-NEPHROTIC >3.5 NEPHROTIC PROTEIN/CREATININE RATIO, MANUAL ENTER Date Value Ref Range Status 05/01/2021 0.6 Final PROTEIN/CREAT RATION-NEW METHOD, Manual Enter Date Value Ref Range Status 03/12/2019 0.2 Final 2) Immunosuppression Current Immunosuppressive Medication(s) Immunosuppressive Agents mycophenolate sodium (MYFORTIC) [address] Take 3 tablets by mouth every 12 hours. tacrolimus (PROGRAF) 1 MG capsule Take 5 capsules by mouth 2 times daily. Tacrolimus trough goal 4-6. Most recent level within goal and no change today Will continue intensive monitoring for drug levels and toxicity via regularly scheduled laboratory assays given the narrow therapeutic index of the immunosuppressive drug therapy listed above 3) Hypertension BP Readings from Last 3 Encounters: 07/10/21 120/74 04/21/21 110/66 01/09/21 120/72 Home Blood Pressures: 120/130-70's Medications: losartan His blood pressures indicate he is well controlled. We will not be making adjustments to his blood pressure medications. 4) Anemia/iron studies Lab Results Component Value Date HGB 14.9 07/13/2021 HGB 14.9 07/13/2021 HCT 44.7 07/13/2021 HCT 44.7 07/13/2021 PLATELET 167 07/13/2021 PLATELET 167 07/13/2021 MCV 89.9 07/13/2021 Lab Results Component Value Date IRON 81 05/01/2021 IRON 81 05/01/2021 FERRITIN 285 11/03/2020 FERRITIN 285 11/03/2020 Latest hemoglobin is 15 g/dl. stable, and acceptable. 5) Preventative Health PCP Mr. Heath follows with Mariana Miranda for primary care. Risk for Diabetes Mr. Heath was reminded of the risk of new onset diabetes after transplant (NODAT) and we discussed the importance of a healthy weight and lifestyle. His recent glucoses Lab Results Component Value Date GLUCOSE 89 07/13/2021 GLUCOSE 89 07/13/2021 and last hbg A1c, Lab Results Component Value Date HGBA1C 5.1 04/29/2020 indicate his levels are within normal limits, and I am not concerned at this time. Risk for Osteodystrophy Mr. Heath has stable PTH and CA/phos. No intervention needed Lab Results Component Value Date PTH 60.2 11/03/2020 PTH 60.2 11/03/2020 CALCIUM 9.7 05/01/2021 CALCIUM 9.7 05/01/2021 PHOSPHORUS 3.1 05/01/2021 PHOSPHORUS 3.1 05/01/2021 Lifestyle Factors I advised the patient on the importance of lifestyle factors in the improvement of his health, including weight loss, exercise, a healthy, low sodium diet, drinking alcohol in moderation. 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 Return to Clinic: The patient will follow-up with us in clinic in one year however we will see patient earlier should the need arise. We have ordered transplant specific labs per the center s guidelines to monitor and assess for toxicities from immunosuppressant drug therapy. Andrew Trinidad, MSN MACHINE STAMPER Transplant Nurse Practitioner [facility] [address] [address] documented in this encounter [facility] 09-25-2016 Evaluation note Diagnosis Polycystic kidney disease Polycystic kidney, unspecified type -donor 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/25/2016 Kidney replaced by [facility] by transplant- Primary Abnormal blood chemistry Other abnormal blood chemistry Immunosuppressed status Unspecified disorder of immune mechanism Aftercare following organ transplant High risk medication use Encounter for long-term (current) use of other medications [facility] Diagnosis Polycystic kidney disease- Primary Polycystic kidney, unspecified type Acute bilateral low back pain without sciatica Erectile dysfunction, unspecified erectile dysfunction type -donor 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/25/2016 Kidney replaced by transplant Lack of sexual desire Hypoactive sexual desire disorder [facility] Acute bilateral low back pain without sciatica [facility] Diagnosis Kidney replaced by transplant- Primary Long-term use of immunosuppressant medication Encounter for long-term (current) use of other medications Aftercare following organ transplant Abnormal blood chemistry Other abnormal blood chemistry Immunosuppressed status Unspecified disorder of immune mechanism High risk medication use Encounter for long-term (current) use of other medications Other general symptoms and signs Gastroesophageal reflux disease without esophagitis Esophageal reflux S/P laparoscopic sleeve gastrectomy [facility] Diagnosis Polycystic kidney disease- Primary Polycystic kidney, unspecified type Gastroesophageal reflux disease without esophagitis Esophageal reflux S/P laparoscopic sleeve gastrectomy [facility] Preop exam for internal medicine- Primary Other specified pre-operative examination Polycystic kidney disease Polycystic kidney, unspecified type -donor 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/25/2016 Kidney replaced by transplant Immunosuppression Unspecified disorder of immune mechanism S/P laparoscopic 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 and other lower urinary tract symptoms (LUTS) Polycystic kidney disease Polycystic kidney, unspecified type [facility] Diagnosis Erectile dysfunction, unspecified erectile dysfunction type- Primary Gastroesophageal reflux disease without esophagitis Esophageal reflux Environmental and seasonal allergies Polycystic kidney disease Polycystic kidney, unspecified type [facility] Diagnosis Low testosterone in male- Primary Acute bacterial conjunctivitis of right eye [facility]* Diagnosis Redness of right eye- Primary Redness or discharge of eye [facility]* Diagnosis Viral URI- Primary Acute upper respiratory infections of unspecified site [facility] Diagnosis Sinusitis, unspecified chronicity, unspecified location- Primary Acute conjunctivitis of both eyes, unspecified acute conjunctivitis type [facility] Diagnosis Sinusitis, unspecified chronicity, unspecified location- Primary Acute conjunctivitis of both eyes, unspecified acute conjunctivitis type [facility] Diagnosis Laceration of right hand without foreign body, initial encounter- Primary [facility]* Diagnosis Dog bite of right hand with infection, initial encounter- Primary [facility]* Diagnosis Dog bite, initial encounter- Primary Encounter for post surgical wound check [facility]* Diagnosis Class 2 severe obesity with serious comorbidity and body mass index (BMI) of 36.0 to 36.9 in adult, unspecified obesity type- Primary Gastroesophageal reflux disease without esophagitis Esophageal reflux S/P laparoscopic sleeve gastrectomy [facility] Sprain of right ankle, unspecified ligament, initial encounter- Primary Sprain of right foot, initial encounter documented [facility] this [facility]* Diagnosis Acute right ankle pain- Primary Sprain of right medial ankle joint, initial encounter [facility]* Diagnosis Right foot pain- Primary Pain in limb Sprain of right ankle, unspecified ligament, initial encounter [facility]* Diagnosis Lentigines- Primary Other dyschromia Skin cancer screening Screening for malignant neoplasm of the skin Actinic skin damage Other chronic dermatitis due to solar radiation SK (seborrheic keratosis) Other seborrheic keratosis [place]adsworth angioma Nevus, non-neoplastic Melanocytic nevus of lower extremity including hip, unspecified laterality Melanocytic nevi of trunk Benign neoplasm of skin of trunk, except scrotum Melanocytic nevus of upper extremity, unspecified laterality Neoplasm of uncertain behavior of skin [facility] Diagnosis Gastroesophageal reflux disease without esophagitis Esophageal reflux S/P laparoscopic sleeve gastrectomy [facility] Diagnosis Gastroesophageal reflux disease, unspecified whether esophagitis present- Primary Class 2 severe obesity with serious comorbidity and body mass index (BMI) of 35.0 to 35.9 in adult, unspecified obesity type Obstructive sleep apnea (adult) (pediatric) Vitamin D deficiency Unspecified vitamin D deficiency Iron deficiency Other disorders of iron metabolism Medication management Encounter for other specified aftercare S/P laparoscopic sleeve gastrectomy At risk for inadequate intake of multiple nutrients Pre-op testing Preoperative examination, unspecified History of obstructive sleep apnea [facility]* Attachments The following attachments cannot be sent through Care Everywhere. * Hand Laceration: Stitches ([place]) [facility]* Attachments The following attachments cannot be sent through Care Everywhere. * Pain and Pain Control ([facility]) ([place]) [facility] Attachments The following attachments cannot be sent through Care Everywhere. * Bites: Animal ([place]) [facility]* Attachments The following attachments cannot be sent through Care Everywhere. * Ankle Sprain ([place]) [facility] (narrative)* Consultation (Routine) - New Request Specialty Diagnoses / Procedures Referred By Shruthi perry Referred To Contact Urology Diagnoses Kidney replaced by transplant Aftercare following organ transplant Suzie Giraldo MD, PhD [address] [place] [address] Referral ID Status Reason Start Date Expiration Date V isits Requested Visits Authorized [id number] New Request 10/26/2021 11/20/2022 1 1 [facility] Consultation (Urgent) - New Request Specialty Diagnoses / Procedures Referred By Contac t Referred To Contact Family Medicine Diagnoses Sprain of right ankle, unspecified ligament, initial encounter Sprain of right foot, initial encounter Jackson Shaffer MD [address] [place] [address] Mariana Miranda, TRACK RIDER-MACHINE STAMPER [address] [place] [address] Referral ID Status Reason Start Date Expiration Date V isits Requested Visits Authorized [id number] New Request 03/11/2023 04/04/2024 1 1 [facility] Consultation (Routine) - New Request Specialty Diagnoses / Procedures Referred By Contac t Referred To Contact Podiatry Diagnoses Acute right ankle pain Sprain of right medial ankle joint, initial encounter Mariana Miranda, TRACK RIDER-MACHINE STAMPER [address] [place] [address] Ilene Diego, DPM [address] [place] [address] Referral ID Status Reason Start Date Expiration Date V isits Requested Visits Authorized [id number] New Request 04/16/2023 05/10/2024 1 1 [facility] Summary Purpose Family History No Family History Records FoundNo Family History Records FoundNo Family History Records FoundNo Family History Records FoundNo Family History Records FoundNo Family History Records FoundNo Family History Records FoundNo Family History Records Found Advance Directives No Advanced Directives Records FoundLatest Code Status on File Code Status Date Activated Date Inactivated Comments Full Code 12/26/2019 9:39 AM Full Code 08/11/2019 5:40 AM 12/26/2019 9:39 AM Full Code 08/10/2019 11:52 AM 08/10/2019 5:13 PM Full Code 02/28/2019 5:06 AM 08/10/2019 11:52 AM Full Code 02/28/2019 5:06 AM 02/28/2019 5:06 AM Latest Code Status on File Code Status Date Activated Date Inactivated Comments Full Code 12/26/2019 9:39 AM Full Code 08/11/2019 5:40 AM 12/26/2019 9:39 AM Full Code 08/10/2019 11:52 AM 08/10/2019 5:13 PM Full Code 02/28/2019 5:06 AM 08/10/2019 11:52 AM Full Code 02/28/2019 5:06 AM 02/28/2019 5:06 AM Latest Code Status on File Code Status Date Activated Date Inactivated Comments Full Code 01/23/2022 5:28 AM 01/23/2022 4:46 PM Full Code 12/26/2019 9:39 AM 01/23/2022 5:28 AM Latest Code Status on File Code Status Date Activated Date Inactivated Comments Full Code 01/23/2022 5:28 AM 01/23/2022 4:46 PM Code Status History Code Status Date Activated Date Inactivated Comments Full Code 12/26/2019 9:39 AM 01/23/2022 5:28 AM Full Code 08/11/2019 5:40 AM 12/26/2019 9:39 AM Full Code 08/10/2019 11:52 AM 08/10/2019 5:13 PM Full Code 02/28/2019 5:06 AM 08/10/2019 11:52 AM Latest Code Status on File Code Status Date Activated Date Inactivated Comments Full Code 01/23/2022 5:28 AM 01/23/2022 4:46 PM Code Status History Code Status Date Activated Date Inactivated Comments Full Code 12/26/2019 9:39 AM 01/23/2022 5:28 AM Full Code 08/11/2019 5:40 AM 12/26/2019 9:39 AM Full Code 08/10/2019 11:52 AM 08/10/2019 5:13 PM Full Code 02/28/2019 5:06 AM 08/10/2019 11:52 AM Reason for Referral Status Reason Specialty Diagnoses / Procedures Re ferred By Contact Referred To Contact Auth Not Needed Diagnoses Chronic pain of right knee Osteoarthritis of right knee, unspecified osteoarthritis type Procedures MRI KNEE RIGHT WITHOUT CONTRAST IN MRI LOWER EXTREM JT, W/O CONTRAST Jorge Ireland MD [address] [place] [address] Status Reason Specialty Diagnoses / Procedures Referred By Contact Referred To Contact New Request Diagnoses Chronic pain of right knee Procedures XR KNEE RIGHT 4+ VIEWS Jorge Ireland MD [address] [place] [id number] Status Reason Specialty Diagnoses / Procedures Referred By Contact Referred To Contact New Request Diagnoses Chronic pain of right knee Procedures XR BONE LENGTH STUDY Jorge Ireland MD [address] [place] [id number] Specialty Diagnoses / Procedures Referred By Contac t Referred To Contact Diagnoses Polycystic kidney disease -donor kidney transplant Procedures RENAL TrMariana sutton, TRACK RIDER-MACHINE STAMPER [address] [place] [address] Referral ID Status Reason Start Date Expiration Date V isits Requested Visits Authorized [id number] Auth Not Needed 10/09/2021 11/03/2022 1 1 Specialty Diagnoses / Procedures Referred By Contac t Referred To Contact Ultrasound Diagnoses Polycystic kidney disease -donor kidney transplant Procedures RENAL TrubaMariana ware, TRACK RIDER-MACHINE STAMPER [address] [place] [address] [facility] [address] [place] [address] Referral ID Status Reason Start Date Expiration Date Visits Re quested Visits Authorized [id number] Closed 10/09/2021 11/03/2022 1 1 Specialty Diagnoses / Procedures Referred By Contac t Referred To Contact PreOp Diagnoses Polycystic kidney disease Elena Hu, TRACK RIDER-MACHINE STAMPER [address] [place] [id number] Referral ID Status Reason Start Date Expiration Date V isits Requested Visits Authorized [id number] New Request 11/30/2021 12/25/2022 1 1 Specialty Diagnoses / Procedures Referred By Contac t Referred To Contact Podiatry / Physical Therapy Diagnoses Right foot pain Sprain of right ankle, unspecified ligament, initial encounter Ilene Diego, DPM [address] [place] [address] [facility] [address] [address] Referral ID Status Reason Start Date Expiration Date Visits Requested Visits Authorized [id number] Authorized - [facility] 04/19/2023 05/13/2024 6 6 Scheduling Instructions . Specialty Diagnoses / Procedures Referred By Shruthi perry Referred To Contact Diagnoses Gastroesophageal reflux disease without esophagitis S/P laparoscopic sleeve gastrectomy Procedures INTERVENTIONAL UPPER ENDOSCOPY IN ESOPHAGOGASTRODUODENOSCOPY TRANSORAL DIAGNOSTIC Caty Penn TRACK RIDER-MACHINE STAMPER [address] [employer] [address] Referral ID Status Reason Start Date Expiration Date V isits Requested Visits Authorized [id number] Pending Review 11/05/2022 11/30/2023 1 1 Specialty Diagnoses / Procedures Referred By Shruthi perry Referred To Contact Diagnoses S/P laparoscopic sleeve gastrectomy Vitamin D deficiency Iron deficiency Medication management Procedures ECG Caty Penn TRACK RIDER-MACHINE STAMPER [address] [address] Referral ID Status Reason Start Date Expiration Date V isits Requested Visits Authorized [id number] New Request 09/30/2023 10/24/2024 1 1 Specialty Diagnoses / Procedures Referred By Shruthi perry Referred To Contact Diagnoses S/P laparoscopic sleeve gastrectomy History of obstructive sleep apnea Obstructive sleep apnea (adult) (pediatric) Procedures SCHEDULE HOME SLEEP STUDY Caty Penn TRACK RIDER-MACHINE STAMPER [address] [place] [address] Referral ID Status Reason Start Date Expiration Date V isits Requested Visits Authorized [id number] New Request 09/30/2023 10/24/2024 1 1 History of Present Illness * Jorge Ireland MD - 05/15/2018 2:50 PM EST Formatting of this note may be different from the original. Dictation on: 05/15/2018 3:50 PM by: JORGE IRELAND [[email or web address]] I have reviewed the findings of the clinical developer support engineer and agree with their assessment. Jorge Ireland MD Ortho Nurse Patient Intake Room#: 1 Right knee pain Has had cortisone and just finished up Euflexxa injections with no help, PT years ago Date: 05/15/2018 3:12 PM Patient: Zoie Heath MR#: [id number] : 1965 Age: 52 y.o. Referring Physician: Rosy Zepeda MD Insurance: Payor: MEDICARE / Plan: MEDICARE A AND B / Product Type: *No Product type* / Chief Complaint Patient presents with Right Knee - Pain Visit Vitals Temp 97.1 ?F (36.2 ?C) (Temporal) Ht 1.702 m (5' 7 ) Wt 114.8 kg (253 lb) BMI 39.63 kg/m Pain Presence of Pain: complains of pain/discomfort (05/15/18 1509) Pain Location: knee, right (05/15/18 1509) Select Pain Scale: DVPRS (Defense and Veterans Pain Rating Scale) (Adult- Cognitively Intact) (05/15/18 1509) Pain Location: knee, right (05/15/18 1509) Select Pain Scale: DVPRS (Defense and Veterans Pain Rating Scale) (Adult- Cognitively Intact) (05/15/18 1509) Recent Labs No results found for: CRP No results found for: SEDRATE Lab Results Component Value Date WBC 7.0 04/08/2018 WBC 7.0 04/08/2018 HGB 16.7 04/08/2018 HGB 16.7 04/08/2018 HCT 49.0 04/08/2018 HCT 49.0 04/08/2018 PLATELET 161 04/08/2018 PLATELET 161 04/08/2018 MCV 89.7 04/08/2018 History Past Medical History: Diagnosis Date Polycystic kidney disease 1999 Depression 2010 1 suicide attempt in 2010 ESRD on dialysis 02/22/2011 Anxiety disorder 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 Chronic kidney disease, stage 4, severely decreased GFR dialysis 3x weekly Diverticulosis Dry skin severe dry skin on bottom of bilateral feet - cracked heels Fatigue GERD (gastroesophageal reflux disease) Hyperparathyroidism, secondary renal Hyperphosphatemia Inguinal hernia Insomnia Migraine Night muscle spasms Night muscle spasms Obesity Obesity (BMI 30-39.9) Osteoarthritis of knee Snoring Snoring Umbilical hernia not yet repaired Umbilical hernia Past Surgical History: Procedure Laterality Date REPAIR HERNIA UMBILICAL OPEN W/ MESH N/A 05/09/2017 Laterality: N/A; Surgeon: CORNEL Elizondo; Location: [facility] MAIN OR KIDNEY TRANSPLANT W/O TYONEK NEPHRECTOMY N/A 09/25/2016 Laterality: N/A; Surgeon: Jose Shaw MD; Location: [facility] MAIN OR IN KNEE SCOPE, MENISC TRANSPLANT Right 11/12/2014 right knee scope with lateral meniscus repair per Dr. Zepeda HERNIA REPAIR Right 01/08/2012 inguinal - uncomplicated HERNIA REPAIR 01/08/2012 umbilical - incarcerated CREATION ARTERIOVENOUS FISTULA W/ AUTOGENOUS GRAFT Left 2009 CREATION ARTERIOVENOUS FISTULA W/ NONAUTOGENOUS GRAFT 2009 SHOULDER SURGERY Left 2007 clavicle repair and shoulder arthroscopy CHOLECYSTECTOMY 2004 KNEE SURGERY Left 1992 arthroscopy ADENOIDECTOMY TONSILLECTOMY Family History: His family history includes Alzheimer's in his maternal grandmother; Diabetes in his father and sister; Hypertension in his mother; Kidney Disease in his mother. Social History: His reports that he quit smoking about 18 years ago. His smoking use included Cigarettes. He has a 20.00 pack-year smoking history. He has never used smokeless tobacco. He reports that he does not drink alcohol or use drugs. Additional Social History Y N Notes Do you live alone? [] [x] Who lives with you: Do you have children? [x] [] How many: 3 Do you currently work? [] [x] What type of work do you do: Do you have stairs in the home? [x] [] How many do you have to climb to enter your home: What services do you currently receive at home? [] [x] Name: Do you have transportation to go to outpatient therapy if needed? [x] [] What Equipment do you have at home? [x] [] [x]Walker, []Crutches, []Commode Chair, []Shower []Chair, []cane, []bracing Are you followed by a taker away? [] [x] Name: Are you followed by pain management? [] [x] Name: Are you followed by any other specialists? [x] [] Name: Dr Sanjiv CUTLER Nephrology Outpatient Medications Prior to Visit Medication Sig Dispense Refill acyclovir 5 % Ointment Apply topically to all lesions 6 times daily X 7 days. 1 Tube 0 Asenapine Maleate (SAPHRIS) 2.5 MG Tab SL 2.5 mg at bedtime. aspirin 81 MG Chew Tab chewable tablet Chew 1 tablet daily every morning. ..Please obtain future renewals of this prescription from your primary care provider. 30 tablet 11 carBAMazepine 100 MG Chew Tab Take 200 mg in the morning & take 200 mg tab along with a 100 mg tab for a total dose of 300 mg in the evening. 14 tablet 0 carBAMazepine 200 MG Tab Take 200 mg in the morning & take 200 mg tab along with a 100 mg tab for a total dose of 300 mg in the evening. 28 tablet 0 cetirizine 10 MG Tab tablet Take 1 tablet by mouth daily. 30 tablet 2 escitalopram 20 MG Tab tablet Take 20 mg by mouth at bedtime. fluticasone 50 MCG/ACT Suspension nasal spray 2 sprays by Nasal route daily. 1 Bottle 2 ketoconazole 2 % Shampoo shampoo Apply 1 Application topically 3 times weekly. 120 mL 5 magnesium oxide 400 (241.3 Mg) MG Tab tablet Take 1 tablet by mouth 2 times daily. 60 tablet 11 montelukast 10 MG Tab tablet Take 1 tablet by mouth daily. 30 tablet 5 mycophenolate sodium (generic) [address] Take 2 tablets by mouth every 12 hours. 120 tablet 11 Omepraz[address] take 20 mg by mouth every 12 hours. ondansetron 4 MG Tab take 1 tablet by mouth every 8 hours as needed for Nausea / Vomiting or Nausea.. 90 tablet 1 rOPINIRole 0.25 MG Tab take 0.25 mg by mouth at bedtime.. tacrolimus (generic) 1 MG Cap capsule Take 6 capsules by mouth every 12 hours. Diagnosis Code: ICD 9:V42.0, ICD 10:Z94.0 - Kidney transplant 09/25/2016 360 capsule 11 No facility-administered medications prior to visit. Current Outpatient Prescriptions: acyclovir 5 % Ointment, Apply topically to all lesions 6 times daily X 7 days., Disp: 1 Tube, Rfl: 0 Asenapine Maleate (SAPHRIS) 2.5 MG Tab SL, 2.5 mg at bedtime. , Disp: , Rfl: aspirin 81 MG Chew Tab chewable tablet, Chew 1 tablet daily every morning. ..Please obtain future renewals of this prescription from your primary care provider., Disp: 30 tablet, Rfl: 11 carBAMazepine 100 MG Chew Tab, Take 200 mg in the morning & take 200 mg tab along with a 100 mgtab for a total dose of 300 mg in the evening., Disp: 14 tablet, Rfl: 0 carBAMazepine 200 MG Tab, Take 200 mg in the morning & take 200 mg tab along with a 100 mg tab for a total dose of 300 mg in the evening., Disp: 28 tablet, Rfl: 0 cetirizine 10 MG Tab tablet, Take 1 tablet by mouth daily., Disp: 30 tablet, Rfl: 2 escitalopram 20 MG Tab tablet, Take 20 mg by mouth at bedtime. , Disp: , Rfl: fluticasone 50 MCG/ACT Suspension nasal spray, 2 sprays by Nasal route daily., Disp: 1 Bottle, Rfl:2 ketoconazole 2 % Shampoo shampoo, Apply 1 Application topically 3 times weekly., Disp: 120 mL, Rfl:5 magnesium oxide 400 (241.3 Mg) MG Tab tablet, Take 1 tablet by mouth 2 times daily., Disp: 60 tablet, Rfl: 11 montelukast 10 MG Tab tablet, Take 1 tablet by mouth daily., Disp: 30 tablet, Rfl: 5 mycophenolate sodium (generic) [address], Take 2 tablets by mouth every 12 hours., Disp: 120 tablet, Rfl: 11 Omeprazole [address], take 20 mg by mouth every 12 hours. , Disp: , Rfl: ondansetron 4 MG Tab, take 1 tablet by mouth every 8 hours as needed for Nausea / Vomiting or Nausea.., Disp: 90 tablet, Rfl: 1 rOPINIRole 0.25 MG Tab, take 0.25 mg by mouth at bedtime.., Disp: , Rfl: tacrolimus (generic) 1 MG Cap capsule, Take 6 capsules by mouth every 12 hours. Diagnosis Code: ICD9:V42.0, ICD 10:Z94.0 - Kidney transplant 09/25/2016, Disp: 360 capsule, Rfl: 11 Allergies: He has No Known Allergies. Y N Are you allergic to any metals? [] [x] If yes, what metals: Review of Systems System Y N Symptoms Constitutional [] [x] Weight Loss [] [x] Weight Gain [] [x] Chronic Fever [] [x] Insomnia Eyes [] [x] Resent Vision Change [] [x] Cataracts [] [x] Glaucoma [] [x] Any Hx of Metal Fragments in the Eye ENT [] [x] Loss of hearing [] [x] Hearing Aids [x] [x] Seasonal Allergies [] [x] Dental Issues Cardiovascular [] [x] Chest Pain [] [x] Angina [] [x] Stent [] [x] Hypertension [] [x] Heart Murmur [] [x] Irregular Pulse [] [x] Pacemaker [] [x] Palpitations [] [x] High cholesterol Respiratory [] [x] Wheezing [] [x] Shortness of Breath [] [x] Pneumonia [] [x] Bronchitis [] [x] Sleep Apnea [] [x] COPD [] [x] Date/ LOC of last CXR: Gastrointestinal [x] [] Heartburn [] [x] Indigestion [] [x] Constipation [] [x] Ulcer [] [x] GI Stomach Bleed [] [x] Diarrhea [] [x] Colon Cancer [x] [] Acid Reflux [] [x] Blood in Stools Musculoskeletal [x] [] Arthritis [] [x] Muscle Weakness [x] [] Joint Pain [] [x] Back Pain [] [x] Fibromyalgia [] [x] Bone Infection [] [x] Swelling Multiple Joints [] [x] Reflex Sympathetic Dystrophy Skin [] [x] Chronic Rash [] [x] Ulcers [] [x] Eczema [] [x] Psoriasis [] [x] Skin Cancer [] [x] Melanoma Neurologic [] [x] Numbness [] [x] Weakness or loss of sensation in arms or legs [] [x] Leg Pain / Sciatica [] [x] Headaches [] [x] Loss of bowel or bladder control Psychiatric [x] [] Anxiety [] [x] Claustrophobia [] [x] Other Psychiatric Problems Hematologic [x] [] Easy Bruising [] [x] Easy Bleeding [] [x] Blood Transfusion Date: Endocrine [] [x] Hypothyroid [] [x] Hyperthyroid [] [x] Hot Flashes [] [x] Hormone Replacement [x] [] Prednisone Use Does pt have dentures? no Procedures * ChitoAngelo LPN - 05/15/2018 2:50 PM EST Formatting of this note may be different from the original. Ortho Nurse Patient Intake Room#: 1 Right knee pain Has had cortisone and just finished up Euflexxa injections with no help, PT years ago Date: 05/15/2018 3:12 PM Patient: Zoie Heath MR#: [id number] : 1965 Age: 52 y.o. Referring Physician: Rosy Zepeda MD Insurance: Payor: MEDICARE / Plan: MEDICARE A AND B / Product Type: *No Product type* / Chief Complaint Patient presents with Right Knee - Pain Visit Vitals Temp 97.1 ?F (36.2 ?C) (Temporal) Ht 1.702 m (5' 7 ) Wt 114.8 kg (253 lb) BMI 39.63 kg/m Pain Presence of Pain: complains of pain/discomfort (05/15/18 1509) Pain Location: knee, right (05/15/18 1509) Select Pain Scale: DVPRS (Defense and Veterans Pain Rating Scale) (Adult- Cognitively Intact) (05/15/18 1509) Pain Location: knee, right (05/15/18 1509) Select Pain Scale: DVPRS (Defense and Veterans Pain Rating Scale) (Adult- Cognitively Intact) (05/15/18 1509) Recent Labs No results found for: CRP No results found for: SEDRATE Lab Results Component Value Date WBC 7.0 04/08/2018 WBC 7.0 04/08/2018 HGB 16.7 04/08/2018 HGB 16.7 04/08/2018 HCT 49.0 04/08/2018 HCT 49.0 04/08/2018 PLATELET 161 04/08/2018 PLATELET 161 04/08/2018 MCV 89.7 04/08/2018 History Past Medical History: Diagnosis Date Polycystic kidney disease 1999 Depression 2010 1 suicide attempt in 2010 ESRD on dialysis 02/22/2011 Anxiety disorder 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 Chronic kidney disease, stage 4, severely decreased GFR dialysis 3x weekly Diverticulosis Dry skin severe dry skin on bottom of bilateral feet - cracked heels Fatigue GERD (gastroesophageal reflux disease) Hyperparathyroidism, secondary renal Hyperphosphatemia Inguinal hernia Insomnia Migraine Night muscle spasms Night muscle spasms Obesity Obesity (BMI 30-39.9) Osteoarthritis of knee Snoring Snoring Umbilical hernia not yet repaired Umbilical hernia Past Surgical History: Procedure Laterality Date REPAIR HERNIA UMBILICAL OPEN W/ MESH N/A 05/09/2017 Laterality: N/A; Surgeon: CORNEL Elizondo; Location: [facility] MAIN OR KIDNEY TRANSPLANT W/O TYONEK NEPHRECTOMY N/A 09/25/2016 Laterality: N/A; Surgeon: Jose Shaw MD; Location: [facility] MAIN OR IN KNEE SCOPE, MENISC TRANSPLANT Right 11/12/2014 right knee scope with lateral meniscus repair per Dr. Zepeda HERNIA REPAIR Right 01/08/2012 inguinal - uncomplicated HERNIA REPAIR 01/08/2012 umbilical - incarcerated CREATION ARTERIOVENOUS FISTULA W/ AUTOGENOUS GRAFT Left 2009 CREATION ARTERIOVENOUS FISTULA W/ NONAUTOGENOUS GRAFT 2009 SHOULDER SURGERY Left 2007 clavicle repair and shoulder arthroscopy CHOLECYSTECTOMY 2005 KNEE SURGERY Left 1992 arthroscopy ADENOIDECTOMY TONSILLECTOMY Family History: His family history includes Alzheimer's in his maternal grandmother; Diabetes in his father and sister; Hypertension in his mother; Kidney Disease in his mother. Social History: His reports that he quit smoking about 18 years ago. His smoking use included Cigarettes. He has a 20.00 pack-year smoking history. He has never used smokeless tobacco. He reports that he does not drink alcohol or use drugs. Additional Social History Y N Notes Do you live alone? [] [x] Who lives with you: Do you have children? [x] [] How many: 3 Do you currently work? [] [x] What type of work do you do: Do you have stairs in the home? [x] [] How many do you have to climb to enter your home: What services do you currently receive at home? [] [x] Name: Do you have transportation to go to outpatient therapy if needed? [x] [] What Equipment do you have at home? [x] [] [x]Walker, []Crutches, []Commode Chair, []Shower []Chair, []cane, []bracing Are you followed by a taker away? [] [x] Name: Are you followed by pain management? [] [x] Name: Are you followed by any other specialists? [x] [] Name: Dr Sanjiv CUTLER Nephrology Outpatient Medications Prior to Visit Medication Sig Dispense Refill acyclovir 5 % Ointment Apply topically to all lesions 6 times daily X 7 days. 1 Tube 0 Asenapine Maleate (SAPHRIS) 2.5 MG Tab SL 2.5 mg at bedtime. aspirin 81 MG Chew Tab chewable tablet Chew 1 tablet daily every morning. ..Please obtain future renewals of this prescription from your primary care provider. 30 tablet 11 carBAMazepine 100 MG Chew Tab Take 200 mg in the morning & take 200 mg tab along with a 100 mg tab for a total dose of 300 mg in the evening. 14 tablet 0 carBAMazepine 200 MG Tab Take 200 mg in the morning & take 200 mg tab along with a 100 mg tab for a total dose of 300 mg in the evening. 28 tablet 0 cetirizine 10 MG Tab tablet Take 1 tablet by mouth daily. 30 tablet 2 escitalopram 20 MG Tab tablet Take 20 mg by mouth at bedtime. fluticasone 50 MCG/ACT Suspension nasal spray 2 sprays by Nasal route daily. 1 Bottle 2 ketoconazole 2 % Shampoo shampoo Apply 1 Application topically 3 times weekly. 120 mL 5 magnesium oxide 400 (241.3 Mg) MG Tab tablet Take 1 tablet by mouth 2 times daily. 60 tablet 11 montelukast 10 MG Tab tablet Take 1 tablet by mouth daily. 30 tablet 5 mycophenolate sodium (generic) [address] Take 2 tablets by mouth every 12 hours. 120 tablet 11 Omeprazole [address] take 20 mg by mouth every 12 hours. ondansetron 4 MG Tab take 1 tablet by mouth every 8 hours as needed for Nausea / Vomiting or Nausea.. 90 tablet 1 rOPINIRole 0.25 MG Tab take 0.25 mg by mouth at bedtime.. tacrolimus (generic) 1 MG Cap capsule Take 6 capsules by mouth every 12 hours. Diagnosis Code: ICD 9:V42.0, ICD 10:Z94.0 - Kidney transplant 09/25/2016 360 capsule 11 No facility-administered medications prior to visit. Current Outpatient Prescriptions: acyclovir 5 % Ointment, Apply topically to all lesions 6 times daily X 7 days., Disp: 1 Tube, Rfl: 0 Asenapine Maleate (SAPHRIS) 2.5 MG Tab SL, 2.5 mg at bedtime. , Disp: , Rfl: aspirin 81 MG Chew Tab chewable tablet, Chew 1 tablet daily every morning. ..Please obtain future renewals of this prescription from your primary care provider., Disp: 30 tablet, Rfl: 11 carBAMazepine 100 MG Chew Tab, Take 200 mg in the morning & take 200 mg tab along with a 100 mgtab for a total dose of 300 mg in the evening., Disp: 14 tablet, Rfl: 0 carBAMazepine 200 MG Tab, Take 200 mg in the morning & take 200 mg tab along with a 100 mg tab for a total dose of 300 mg in the evening., Disp: 28 tablet, Rfl: 0 cetirizine 10 MG Tab tablet, Take 1 tablet by mouth daily., Disp: 30 tablet, Rfl: 2 escitalopram 20 MG Tab tablet, Take 20 mg by mouth at bedtime. , Disp: , Rfl: fluticasone 50 MCG/ACT Suspension nasal spray, 2 sprays by Nasal route daily., Disp: 1 Bottle, Rfl:2 ketoconazole 2 % Shampoo shampoo, Apply 1 Application topically 3 times weekly., Disp: 120 mL, Rfl:5 magnesium oxide 400 (241.3 Mg) MG Tab tablet, Take 1 tablet by mouth 2 times daily., Disp: 60 tablet, Rfl: 11 montelukast 10 MG Tab tablet, Take 1 tablet by mouth daily., Disp: 30 tablet, Rfl: 5 mycophenolate sodium (generic) [address], Take 2 tablets by mouth every 12 hours., Disp: 120 tablet, Rfl: 11 Omeprazole [address], take 20 mg by mouth every 12 hours. , Disp: , Rfl: ondansetron 4 MG Tab, take 1 tablet by mouth every 8 hours as needed for Nausea / Vomiting or Nausea.., Disp: 90 tablet, Rfl: 1 rOPINIRole 0.25 MG Tab, take 0.25 mg by mouth at bedtime.., Disp: , Rfl: tacrolimus (generic) 1 MG Cap capsule, Take 6 capsules by mouth every 12 hours. Diagnosis Code: ICD9:V42.0, ICD 10:Z94.0 - Kidney transplant 09/25/2016, Disp: 360 capsule, Rfl: 11 Allergies: He has No Known Allergies. Y N Are you allergic to any metals? [] [x] If yes, what metals: Review of Systems System Y N Symptoms Constitutional [] [x] Weight Loss [] [x] Weight Gain [] [x] Chronic Fever [] [x] Insomnia Eyes [] [x] Resent Vision Change [] [x] Cataracts [] [x] Glaucoma [] [x] Any Hx of Metal Fragments in the Eye ENT [] [x] Loss of hearing [] [x] Hearing Aids [x] [x] Seasonal Allergies [] [x] Dental Issues Cardiovascular [] [x] Chest Pain [] [x] Angina [] [x] Stent [] [x] Hypertension [] [x] Heart Murmur [] [x] Irregular Pulse [] [x] Pacemaker [] [x] Palpitations [] [x] High cholesterol Respiratory [] [x] Wheezing [] [x] Shortness of Breath [] [x] Pneumonia [] [x] Bronchitis [] [x] Sleep Apnea [] [x] COPD [] [x] Date/ LOC of last CXR: Gastrointestinal [x] [] Heartburn [] [x] Indigestion [] [x] Constipation [] [x] Ulcer [] [x] GI Stomach Bleed [] [x] Diarrhea [] [x] Colon Cancer [x] [] Acid Reflux [] [x] Blood in Stools Musculoskeletal [x] [] Arthritis [] [x] Muscle Weakness [x] [] Joint Pain [] [x] Back Pain [] [x] Fibromyalgia [] [x] Bone Infection [] [x] Swelling Multiple Joints [] [x] Reflex Sympathetic Dystrophy Skin [] [x] Chronic Rash [] [x] Ulcers [] [x] Eczema [] [x] Psoriasis [] [x] Skin Cancer [] [x] Melanoma Neurologic [] [x] Numbness [] [x] Weakness or loss of sensation in arms or legs [] [x] Leg Pain / Sciatica [] [x] Headaches [] [x] Loss of bowel or bladder control Psychiatric [x] [] Anxiety [] [x] Claustrophobia [] [x] Other Psychiatric Problems Hematologic [x] [] Easy Bruising [] [x] Easy Bleeding [] [x] Blood Transfusion Date: Endocrine [] [x] Hypothyroid [] [x] Hyperthyroid [] [x] Hot Flashes [] [x] Hormone Replacement [x] [] Prednisone Use Does pt have dentures? no in this encounter Assessments Diagnosis Osteoarthritis of right knee , unspecified osteoarthritis type - Primary Chronic pain of right knee Additional Source Comments (unrecognized sect ion and content) No Status Records FoundNo Status Records FoundNo Status Records FoundNo Status Records FoundNo Status Records FoundNo Status Records FoundNo Status Records FoundNo Status Records Found INFORMATION SOURCE (unrecogn ized section and content) DATE CREATED AUTHOR 12/24/2017 [facility] DATE CREATED AUTHOR AUTHOR'S ORGANIZ ATION 12/25/2017 [facility] DATE CREATED AUTHOR AUTHOR'S ORGANIZ ATION 07/02/2018 [facility] DATE CREATED AUTHOR AUTHOR'S ORGANIZ ATION 08/19/2018 [facility] DATE CREATED AUTHOR AUTHOR'S ORGANIZ ATION 10/31/2022 [facility] DATE CREATED AUTHOR AUTHOR'S ORGANIZ ATION 03/15/2023 [facility] DATE CREATED AUTHOR AUTHOR'S ORGANIZ ATION [facility]/20[facility] DATE CREATED AUTHOR AUTHOR'S ORGANIZ ATION 10/12/2023 [facility] Reason for Visit (unrecogniz ed section and content) Reason Comments Pain Reason Comments Medication Refill Status Reason Specialty Diagnoses / Procedures Re ferred By Contact Referred To Contact Closed Diagnoses Chronic pain of right knee Osteoarthritis of right knee, unspecified osteoarthritis type Procedures MRI KNEE RIGHT WITHOUT CONTRAST IN MRI LOWER EXTREM JT, W/O CONTRAST Jorge Ireland MD [address] [place] [address] Status Reason Specialty Diagnoses / Procedures Referred By Contact Referred To Contact New Request Diagnoses Chronic pain of right knee Procedures XR BONE LENGTH STUDY Jorge Ireland MD [address] [place] [address] Reason Comments Kidney Recipient Follow-up Reason Comments Back Pain Specialty Diagnoses / Procedures Referred By Contjulia t Referred To Contact Ultrasound Diagnoses Polycystic kidney disease -donor kidney transplant Procedures US RENAL Mariana Miranda, TRACK RIDER-MACHINE STAMPER [address] [place] [address] [facility] [address] [place] [address] Referral ID Status Reason Start Date Expiration Date Visits Re quested Visits Authorized [id number] Closed 10/09/2021 11/03/2022 1 1 Reason Comments Kidney Recipient Follow-up Reason Comments New Patient Specialty Diagnoses / Procedures Referred By Shruthi perry Referred To Contact Urology Diagnoses Kidney replaced by transplant Aftercare following organ transplant Suzie Giraldo MD, PhD [address] [place] [address] Referral ID Status Reason Start Date Expiration Date V isits Requested Visits Authorized [id number] New Request 10/26/2021 11/20/2022 1 1 Reason Comments Pre-operative Consultation Specialty Diagnoses / Procedures Referred By Shruthi perry Referred To Contact PreOp Diagnoses Polycystic kidney disease Elena Hu, TRACK RIDER-MACHINE STAMPER [address] [place] [address] Referral ID Status Reason Start Date Expiration Date V isits Requested Visits Authorized [id number] New Request 11/30/2021 12/25/2022 1 1 Reason Comments Erectile Dysfunction Esophageal Reflux Other Allergies Reason Comments Other Low testosterone Reason Comments Eye Problem Right eye redness x2 days, denies injury and pain Reason Comments Illness Left ear pain, conge stion, cough, body aches, chills. Does not want covid test. Pt has kidney transplant, concerned about which meds he can take for cold/flu Reason Comments Illness Was seen , P t still has runny nose, cough, woke up with matted eyes Reason Comments Laceration Patient ambulatory t o ED 1 with complaints of a laceration to his right hand while working on some machinery in the basement this morning. He states it was not crushed nor does he have any reason to believe it is broken. Reason Comments Wound Check Patient got bit by a dog on 10/24, went to ER they closed with stitches, now his entire right hand is swollen going up past his wrist with increased pain in the palm Reason Comments ED Follow-up Was dog bitten was at ER and received four stitches, follow up with Urgent Care on Saturday, received two abx at that time. Is following up with Mariana today. Reason Comments Follow-up Here to discuss weig ht loss medication. Had sleeve 2019. Kidney transplant recipient. Does cardio/weight lifting 3x weekly. Tries to follow low CHO meal plan. Gets 60 gm protein daily and drinks > 60 oz fluid daily. Weight has increased 11# since 11/15/22. Reason Comments Foot Pain Fell and injured ins denis of right foot at 1530 today. 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 DOI 03/11/23(39 days) Jacky Wrap from ED with minimal relief. 4/10 pain at rest, 6/10 pain with WB/Activity. Specialty Diagnoses / Procedures Referred By Shruthi perry Referred To Contact Podiatry Diagnoses Acute right ankle pain Sprain of right medial ankle joint, initial encounter Mariana Miranda, TRACK RIDER-MACHINE STAMPER [address] [place] [address] Ilene Diego, [address] [place] [address] Referral ID Status Reason Start Date Expiration Date V isits Requested Visits Authorized [id number] New Request 04/16/2023 05/10/2024 1 1 Reason Comments Skin Exam Specialty Diagnoses / Procedures Referred By Shruthi perry Referred To Contact Diagnoses Gastroesophageal reflux disease without esophagitis S/P laparoscopic sleeve gastrectomy Procedures INTERVENTIONAL UPPER ENDOSCOPY IN ESOPHAGOGASTRODUODENOSCOPY TRANSORAL DIAGNOSTIC Caty Penn, TRACK RIDER-MACHINE STAMPER [address] [facility] [address] [place] [address] Referral ID Status Reason Start Date Expiration Date V isits Requested Visits Authorized [id number] Pending Review 11/05/2022 11/30/2023 1 1 Reason Comments New Patient Presents for surgica l weight management evaluation. Is interested in a revision. Psych eval has been completed. He was Negative for DEMI. NC is 18. Highest reported weight is 250# and lowest adult weight was 193#. He is currently following a meal plan of low carb high protein. Reports drinking 64 water daily. For exercise he is doing cardio and strength training 2-3 days per week for 60-90 minutes. Care Teams (unrecognized sec tion and content) 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 Relationship Specialty Start Date End Date Transplant, Coordinator [address] [place] [address], [place] [phone] PCP - Lottery Office Manager 08/23/10 Mariana Miranda APRN-MACHINE STAMPER PCP - General Nurse Practitioner - Family 07/16/17 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 Relationship Specialty Start Date End Date Transplant, Coordinator [address] [place] [address], [place] [phone] PCP - Lottery Office Manager 08/23/10 Mariana Miranda APRN-MACHINE STAMPER PCP - General Nurse Practitioner - Family 07/16/17 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 Relationship Specialty Start Date End Date Transplant, Coordinator [address] [place] [address], [place] [address] PCP - Lottery Office Manager 08/23/10 Mariana Miranda APRN-MACHINE STAMPER PCP - General Nurse Practitioner - Family 07/16/17 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 Relationship Specialty Start Date End Date Transplant, Coordinator [address] [place] [phone] PCP - Lottery Office Manager 08/23/10 Mariana Miranda APRN-MACHINE STAMPER PCP - General Nurse Practitioner - Family 07/16/17 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 Relationship Specialty Start Date End Date Transplant, Coordinator [address] [place] [address], [place] [phone] PCP - Lottery Office Manager 08/23/10 Mariana Miranda APRN-MACHINE STAMPER PCP - General Nurse Practitioner - Family 07/16/17 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 Relationship Specialty Start Date End Date Transplant, Coordinator [address] [place] [address], [place] [phone] PCP - Lottery Office Manager 08/23/10 Mariana Miranda APRN-MACHINE STAMPER PCP - General Nurse Practitioner - Family 07/16/17 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 Relationship Specialty Start Date End Date Transplant, Coordinator [address] [place] [address], [place] [address] PCP - Lottery Office Manager 08/23/10 Mariana Miranda APRN-MACHINE STAMPER PCP - General Nurse Practitioner - Family 07/16/17 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 Relationship Specialty Start Date End Date Transplant, Coordinator [address] [place] [address], [place] [address] PCP - Lottery Office Manager 08/23/10 Mariana Miranda APRN-MACHINE STAMPER PCP - General Nurse Practitioner - Family 07/16/17 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 Relationship Specialty Start Date End Date Transplant, Coordinator [address] [place] [address], [place] [address] PCP - Lottery Office Manager 08/23/10 Mariana Miranda APRN-MACHINE STAMPER PCP - General Nurse Practitioner - Family 07/16/17 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 Relationship Specialty Start Date End Date Transplant, Coordinator [address] [place] [address], [place] [address] PCP - Lottery Office Manager 08/23/10 Mariana Miranda APRN-MACHINE STAMPER PCP - General Nurse Practitioner - Family 07/16/17 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 Relationship Specialty Start Date End Date Mariana Miranda CNP [address] [facility] [place] [address] PCP - General Nurse Practitioner 04/20/22 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 Relationship Specialty Start Date End Date Mariana Miranda CNP [address] [facility] [place] [address] PCP - General Nurse Practitioner 04/20/22 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 Relationship Specialty Start Date End Date Mariana Miranda CNP [address] [facility] [place] [address] PCP - General Nurse Practitioner 04/20/22 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 Relationship Specialty Start Date End Date Transplant, Coordinator [address] [place] [address] PCP - Lottery Office Manager 08/23/10 Mariana Miranda APRN-MACHINE STAMPER PCP - General Nurse Practitioner - Family 07/16/17 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 Relationship Specialty Start Date End Date Mariana Miranda CNP [address] [facility] [place] [address] PCP - General Nurse Practitioner 04/20/22 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 Relationship Specialty Start Date End Date Transplant, Coordinator [address] [place] [address] PCP - Lottery Office Manager 08/23/10 Mariana Miranda APRN-MACHINE STAMPER PCP - General Nurse Practitioner - Family 07/16/17 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 Relationship Specialty Start Date End Date Transplant, Coordinator [address] [place] [address] PCP - Lottery Office Manager 08/23/10 Mariana Miranda APRN-MACHINE STAMPER [address] [place] [address], [place] [address] PCP - General Nurse Practitioner - Family 07/16/17 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 Relationship Specialty Start Date End Date Transplant, Coordinator [address] [place] [address], [place] [address] PCP - Lottery Office Manager 08/23/10 Mariana Miranda APRN-MACHINE STAMPER [address] [place] [address], [place] [address] PCP - General Nurse Practitioner - Family 07/16/17 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 Relationship Specialty Start Date End Date Transplant, Coordinator [address] [place] [address], [place] [address] PCP - Lottery Office Manager 08/23/10 Mariana Miranda APRN-MACHINE STAMPER [address] [place] [address], [place] [address] PCP - General Nurse Practitioner - Family 07/16/17 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 Relationship Specialty Start Date End Date Transplant, Coordinator [address] [place] [address], [place] [address] PCP - Lottery Office Manager 08/23/10 Mariana Miranda APRN-MACHINE STAMPER [address] [place] [address], [place] [address] PCP - General Nurse Practitioner - Family 07/16/17 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 Relationship Specialty Start Date End Date Transplant, Coordinator [address] [place] [address], [place] [address] PCP - Lottery Office Manager 08/23/10 Mariana Miranda APRN-MACHINE STAMPER [address] [place] [phone] PCP - General Nurse Practitioner - Family 07/16/17 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 Relationship Specialty Start Date End Date Transplant, Coordinator [address] [place] [phone] PCP - Lottery Office Manager 08/23/10 Mariana Miranda APRN-TAMY [address] [place] [phone] PCP - General Nurse Practitioner - Family 07/16/17 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 Relationship Specialty Start Date End Date Transplant, Coordinator [address] [place] [phone] PCP - Lottery Office Manager 08/23/10 Mariana Miranda APRN-TAMY [address] [place] [phone] PCP - General Nurse Practitioner - Family 07/16/17 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 Relationship Specialty Start Date End Date Transplant, Coordinator [address] [place] [phone] PCP - Lottery Office Manager 08/23/10 Mariana Miranda APRN-TAMY [address] [place] [phone] PCP - General Nurse Practitioner - Family 07/16/17 Scheduled Active and Recently Administ ered Medications (unrecognized section and content) Medication Order 04/19/2022 04/20/2022 04/21/2022 proparacaine (ALCAINE) 0.5 % ophthalmic solution 2 drop (COMPLETED) 2 drop, Right Eye, ONCE, 1 dose, On 04/21/22 at 1130 1115 (Given - Provid er: Andrew Guan RN - Comment: per Dr. [place] for bedside procedure) Scheduled Medication Order 10/22/2022 10/23/2022 10/24/2022 qetqwoye-bluhuqsmgg-hkeyppyut (NEOSPORIN) 400-5-5000 ointment 1 Application. (COMPLETED) 1 Application., Topical, ONCE, 1 dose, On Sat10/24/22 at 0800 0749 (Given - Provid er: Amairani Au RN - Comment: was applied and rest sent home with patient) Scheduled Medication Order 03/09/2023 03/10/2023 03/11/2023 Acetaminophen (TYLENOL) tablet 650 mg (COMPLETED) 650 mg, Oral, ONCE, 1 dose, On 03/11/23 at 0000 2348 (Given - Provider: Patience Hurtado RN) FOR RECORDS PERTAINING TO PATIENTS WHO ARE OR HAVE BEEN ENROLLED IN A CHEMICAL DEPENDENCY/SUBSTANCEABUSE PROGRAM, SOME INFORMATION MAY BE OMITTED. This clinical summary was aggregated from multiple sources. Caution should be exercised in using it in the provision of clinical care. This summary normalizes information from multiple sources, and as a consequence, information in this document may materially change the coding, format and clinical context of patient data. In addition, data may be omitted in some cases. CLINICAL DECISIONS SHOULD BE BASED ON THE PRIMARY CLINICAL RECORDS. [employer] provides no warranty or guarantee of the accuracy or completeness of information in this document.
--- NOTE | 2023-10-29 22:28 | XR_ITS ---
The [address] [address] Patient Name: ZOIE HEATH MRN: [id number] date: 1965 Sex: M Assigned Patient Location: ER Current Patient Location: ER Accession/Order Number: [id number] Exam Date: 10/29/2023 22:35 Report Date: 10/29/2023 23:03 At the request of: KAMINI BOLES Procedure: XR chest 1V EXAM: XR chest 1V HISTORY: Cough, short of breath COMPARISON: None. TECHNIQUE: Single view of the chest FINDINGS: Heart size normal. No focal consolidation, pleural effusion, pulmonary congestion or pneumothorax. XR/XR chest 1V IMPRESSION: No acute findings. Electronically authenticated by: FELIPA CABRERA Date: 10/29/2023 23:03
--- NOTE | 2023-10-29 22:28 | ED.URI1 ---
HPI - URI/Sore Throat General Chief Complaint: Upper Respiratory Infection Stated Complaint: URTI Time Seen by Provider: 10/29/23 22:17 Source: patient Limitations: no limitations History of Present Illness HPI Narrative: 58-year-old male presents for cough. Started yesterday and has been nonproductive. He felt a bit winded today. He had pneumonia few months ago and was worried he was getting it again. He is a former smoker. No history of COPD. No vomiting or diarrhea or fever. Related Data Home Medications ?Medication ?Instructions ?Recorded ?Confirmed aspirin 81 mg capsule 81 mg PO DAILY 06/25/23 06/25/23 carbamazepine 200 mg 200 mg PO BID 06/25/23 06/25/23 capsule,extended release [id number] cetirizine 10 mg tablet (All Day 10 mg PO DAILY 06/25/23 06/25/23 Allergy (cetirizine)) escitalopram oxalate 20 mg tablet 20 mg PO QDAY 06/25/23 06/25/23 (Lexapro) magnesium 200 mg tablet 400 mg PO BID 06/25/23 06/25/23 montelukast 10 mg tablet 10 mg PO DAILY 06/25/23 06/25/23 (Singulair) mycophenolate sodium 180 mg 1,080 mg PO BID 06/25/23 06/25/23 tablet,delayed release (Myfortic) olanzapine 2.5 mg tablet 2.5 mg PO DAILY 06/25/23 06/25/23 ropinirole 0.5 mg tablet 0.5 mg PO DAILY 06/25/23 06/25/23 ropinirole 0.5 mg tablet 0.5 mg PO DAILY 06/25/23 06/25/23 Previous Rx's ?Medication ?Instructions ?Recorded azithromycin 250 mg tablet See Rx Instructions PO .COMPLEX #6 06/25/23 tabs kfnunnnkayflbgy-kkuhnftvvhvcetb-RT 5 ml PO Q6H PRN cold symptoms #118 06/25/23 2 mg-30 mg-10 mg/5 mL oral syrup mL (Bromfed DM) azithromycin 250 mg tablet 250 mg PO DAILY 4 days #4 tabs 10/29/23 (Zithromax) Allergies Allergy/AdvReac Type Severity Reaction Status Date / Time NSAIDS (Non-Steroidal Allergy Verified 10/29/23 22:24 Anti-Inflamma Review of Systems ROS Narrative A ten point review of systems is negative except as noted above. PFSH PFSH Social History Smoking status: Former smoker Exam Narrative Exam Narrative: Nurses note and vital signs reviewed and patient is not hypoxic. General: The patient appears well and in no apparent distress. Patient is resting comfortably on cart. Skin: Warm, dry, no pallor noted. There is no rash noted. Head: Normocephalic, atraumatic Eye: Normal conjunctiva, no drainage Ears, Nose, Mouth, and Throat: oral mucosa is moist. Nares patent. Cardiovascular: Regular Rate and Rhythm Respiratory: Patient is in no distress, no accessory muscle use, lungs are clear to auscultation, no wheezing, rales or rhonchi. Good air movement present. Back: non-tender GI: Normal bowel sounds, no tenderness to palpation, no masses appreciated. No rebound, guarding, or rigidity noted. Musculoskeletal: The patient has no evidence of calf tenderness, no pitting edema, symmetrical pulses noted bilaterally Neurological: A&, normal speech Psychiatric: Cooperative Constitutional Vital Signs, click to edit/add: Last Vital Signs Temp 98.6 F 10/29/23 22:22 Pulse 83 10/29/23 22:22 Resp 22 H 10/29/23 22:22 BP 124/79 10/29/23 22:22 Pulse Ox 96 10/29/23 22:32 O2 Del Method Room Air 10/29/23 22:32 Course Vital Signs Vital signs: Vital Signs Temperature 98.6 F 10/29/23 22:22 Pulse Rate 83 10/29/23 22:22 Respiratory Rate 22 H 10/29/23 22:22 Blood Pressure 124/79 10/29/23 22:22 Pulse Oximetry 97 10/29/23 22:22 Oxygen Delivery Method Room Air 10/29/23 22:22 Temperature 98.6 F 10/29/23 22:22 Pulse Rate 83 10/29/23 22:22 Respiratory Rate 22 H 10/29/23 22:22 Blood Pressure 124/79 10/29/23 22:22 Pulse Oximetry 96 10/29/23 22:32 Oxygen Delivery Method Room Air 10/29/23 22:32 MDM - URI/Sore Throat MDM Narrative Medical decision making narrative: COVID and influenza test are negative. Chest x-ray also negative. He is immunocompromise, had a kidney transplant. He started on Zithromax here and prescribed the rest of the course of Zithromax. Treatment diagnosis and follow-up were discussed with the patient. Differential Diagnosis Differential diagnosis: Likely upper respiratory infection, influenza and other (Pneumonia, COVID) Lab Data Attestation: I reviewed the patient's lab results. Labs: Lab Results 10/29/23 Range/Units 22:25 Influenza Type A Ag Negative Influenza Type B Ag Negative SARS-CoV-2 Ag (CV2AG) Negative (NEGATIVE) Imaging Data Chest x-ray: Radiologist's impression: ITS Impressions Chest X-Ray 10/29/23 22:28 IMPRESSION: No acute findings. Electronically authenticated by: FELIPA CABRERA Date: 10/29/2023 23:03 Discharge Plan Discharge Stand Alone Forms: Portal Instructions Chief Complaint: Upper Respiratory Infection Clinical Impression: Upper respiratory infection Patient Disposition: Home, Self-Care Time of Disposition Decision: 23:24 Condition: Good Mode of Transportation: Private Vehicle Prescriptions / Home Meds: New azithromycin [Zithromax] 250 mg tablet 250 mg PO DAILY 4 Days Qty: 4 0RF Rx Instructions: start on day 2 of therapy No Action olanzapine 2.5 mg tablet 2.5 mg PO DAILY magnesium 200 mg tablet 400 mg PO BID cetirizine [All Day Allergy (cetirizine)] 10 mg tablet 10 mg PO DAILY montelukast [Singulair] 10 mg tablet 10 mg PO DAILY ropinirole 0.5 mg tablet 0.5 mg PO DAILY ropinirole 0.5 mg tablet 0.5 mg PO DAILY aspirin 81 mg capsule 81 mg PO DAILY carbamazepine 200 mg capsule, ER multiphase 12 hr 200 mg PO BID escitalopram oxalate [Lexapro] 20 mg tablet 20 mg PO QDAY mycophenolate sodium [Myfortic] 180 mg tablet,delayed release (DR/EC) 1,080 mg PO BID [id number] [Bromfed DM] 2-30-10 mg/5 mL syrup 5 ml PO Q6H PRN (Reason: cold symptoms) Qty: 118 0RF azithromycin 250 mg tablet See Rx Instructions .ROUTE .COMPLEX Qty: 6 0RF Rx Instructions: For 250 mg dose pack: take 500 mg today (day 1), then 250 mg for 4 days (days 2-5) Print Language: Faroese Instructions: Upper Respiratory Infection (ED) Referrals: Physician,Non-Staff, MD [Primary Care Provider] - 1 week
[2023-10-29 22:32] VITALS: O2SAT 96
[2023-10-29 22:44] LABS: Influenza Virus A Antigen Negative; Influenza Virus B Antigen Negative; Internal Control Within Normal Limits; SARS-CoV-2 Ag NEGATIVE (NEGATIVE)
[2023-10-29] MEDS: AZITHROMYCIN 250 MG TABLET 500 MG PO (23:47)
== END 2023-10-30 00:01 | disposition home or self-care (01) ==
PROVIDERS: Emergency Provider Emergency Medicine
DX: J06.9 Acute upper respiratory infection, unspecified (principal); Z87.891 Personal history of nicotine dependence; Z87.01 Personal history of pneumonia (recurrent); Z79.82 Long term (current) use of aspirin; Z79.899 Other long term (current) drug therapy; Z94.0 Kidney transplant status; Z20.822 Contact with and (suspected) exposure to COVID-19
CPT/HCPCS: 71045; 87804; 87811; 99285

== ENCOUNTER 2024-02-24 11:05 | Outpatient (OUT) | payer MEDICARE, SELFPAY ==
--- NOTE | 2024-02-24 11:11 | XR_ITS ---
The [address] [address] Patient Name: ZOIE HEATH MRN: [id number] date: 1965 Sex: M Assigned Patient Location: [facility] Current Patient Location: Accession/Order Number: [id number] Exam Date: 02/24/2024 11:21 Report Date: 02/25/2024 10:36 At the request of: ASHU EVANS Procedure: XR ankle RT min 3V PROCEDURE: XR ankle RT min 3V HISTORY: Right Ankle Pain M25.571 ; lateral ankle pain COMPARISON: None. FINDINGS: BONES:No fracture, dislocation, bone lesion. Small degenerative osteophytes along the anterior articular margin of ankle joint. Small calcaneal plantar spur. SOFT TISSUES:Soft tissue swelling surrounding the ankle. EFFUSION:None visible. OTHER: Negative. XR/XR ankle RT min 3V IMPRESSION: 1. No acute bone abnormality to account for patient's symptoms. Minimal degenerative changes. Electronically authenticated by: MARK CARTWRIGHT Date: 02/25/2024 10:36
--- OUTSIDE RECORDS SUMMARY | 2024-02-24 11:27 | XMS_ITS | CCD ---
Author Organization [facility] Providers Care Header Setup Operator Name Role Phone UNKNOWN, PROVIDER Unavailable Unavailable [...] UNKNOWN, PROVIDER Unavailable Unavailable Transplant, Coordinator Unavailable [phone] Trubachik, Mariana A Unavailable FOSTER, JORGE Unavailable Unavailable FOSTER, JORGE Unavailable Unavailable FOSTER, JORGE Unavailable Unavailable AVERY, ROSY L Unavailable Unavailable AVERY, ROSY L Unavailable Unavailable SELF, SELF Unavailable Unavailable AVERY, ROSY L Unavailable Unavailable AVERY, ROSY L Unavailable Unavailable AVERY, ROSY L Unavailable Unavailable SELF, SELF Unavailable Unavailable FOSTER, JORGE Unavailable Unavailable FOSTER, JORGE Unavailable Unavailable JONES, TUCKER Unavailable Unavailable JONES, TUCKER Unavailable Unavailable Trubachik, Mariana A Primary Care Unavailable Familia Stringer Attending Unavailable Transplant, Coordinator Unavailable [place] CORE CUTTER [employer] REAMER-PUDDLER HELPER, Mariana A Primary Care Provide r Transplant, Coordinator Unavailable Transplant, Coordinator Unavailable [place] CORE CUTTER [employer] REAMER-PUDDLER HELPER, Mariana A Primary Care Provide r [place] PUDDLER HELPER, Mariana Pollo Primary Care Provider [place] [facility], Mariana A Primary Care Provide r JASVIR VILCHIS Attending Unavailable TRUBACHIK, MARIANA POLLO Primary Care Unavailable JASVIR VILCHIS Attending Unavailable TRUBACHIK, MARIANA POLLO Primary Care Unavailable CHARLEY PASTRANA Attending Unavailable TRUBACHIK, MARIANA POLLO Primary Care Unavailable TRUBACHIK, MARIANA POLLO Primary Care Unavailable MARY MOREIRA Attending Unavailable Transplant, Coordinator Unavailable [phone] [place] [facility] A Primary Care Provide r Transplant, Coordinator Unavailable [place] [facility], Mariana A Primary Care Provide r Transplant, Coordinator Unavailable [phone] [place] [facility] Primary Care Provider Unavailable Transplant, Coordinator Unavailable Yosef Saravia MDeshte Primary Care Provider Yosef Saravia MDeshoralia Primary Care Provider TRUBACHIK, MARIANA Primary Care Unavailable SELF, SELF Referring Unavailable TRUBACHIK, MARIANA Attending Unavailable SELF, SELF Referring Unavailable KHAVARI, FERESHTE Attending Unavailable KHAVARI, FERESHTE Primary Care Unavailable SELF, SELF Referring Unavailable KHAVARI, FERESHTE Attending Unavailable TRUBACHIK, MARIANA Primary Care Unavailable BARK, ILENE Referring Unavailable BARK, ILENE Attending Unavailable TRUBACHIK, MARIANA Primary Care Unavailable BARK, ILENE Attending Unavailable TRUBACHIK, MARIANA Referring Unavailable TRUBACHIK, MARIANA Primary Care Unavailable REYNALDO MARES Attending Unavailable SELF, SELF Referring Unavailable TRUBACHIK, MARIANA Primary Care Unavailable SALBADOR LAWRENCE Attending Unavailable SELF, SELF Referring Unavailable TRUBACHIK, MARIANA Primary Care Unavailable CATY PENN Attending Unavaila ble SELF, SELF Referring Unavailable SELF, SELF Referring Unavailable TRUBACHIK, MARIANA Primary Care Unavailable CATY PENN Attending Unavaila ble TRUBACHIK, MARIANA Primary Care Unavailable TYCHONICATY MYLES Referring Unavaila ble SELF, SELF Referring Unavailable KHAVARI, FERESHTE Primary Care Unavailable KHAVARI, FERESHTE Primary Care Unavailable GIANGARDELLA ANNE-MARIE Attending Unavailable GIANGARDELLA, ANNE-MARIE Referring Unavailable SELF, SELF Referring Unavailable KHAVARI, FERESHTE Primary Care Unavailable BRETHAUERGRISELDA A Attending Unavailable KHAVARI, FERESHTE Primary Care Unavailable KHAVARI, FERESHTE Referring Unavailable BRETHAUERGRISELDA A Attending Unavailable TRUBACHIK, MARIANA Referring Unavailable KHAVARI, FERESHTE Primary Care Unavailable TYCHONIEVICHCATY Attending Unavaila ble TRUBACHIK, MARIANA Primary Care Unavailable SELF, SELF Referring Unavailable TRUBACHIK, MARIANA Primary Care Unavailable GULSHAN, SCHUYLER K Attending Unavailable TYCHONIEVICH, CATY Marin Referring Unavaila ble TYCHONIEVICH, CATY Attending Unavailabl e TYCHONIEVICH, CATY Referring Unavailabl e TYCHONIEVICH, CATY Referring Unavailabl e TYCHONIEVICH, CATY Attending Unavailabl e JACKSON SHAFFER Attending Unavailable TRUBACHIK, MARIANA Primary Care Unavailable TRUBACHIK, MARIANA Primary Care Unavailable BARK, ILENE E Referring Unavailable BARK, ILENE E Attending Unavailable TRUBACHIK, MARIANA Primary Care Unavailable BARK, ILENE E Referring Unavailable BARK, ILENE E Attending Unavailable Allergies Allergy Classification Reported Allergen(s) Allergy Type Date of Onset Reaction(s) Facility (20 sources) *Seasonal Propensity to adverse reactions to substance [facility] (14 sources) Non-steroidal anti-inflammator y agent Propensity to adverse reactions to drug 04-16-2023 [facility] Medications Current Medications Medication Drug Class(es) Dates Sig (Normalized) Sig (Original) acyclovir 0.05 mg/mg topical ointment (5 sources) Herpesvirus Nucleoside Analog DNA Polymerase Inhibitor, Herpes Simplex Virus Nucleoside Analog DNA Polymerase Inhibitor, Herpes Zoster Virus Nucleoside Analog DNA Polymerase Inhibitor Start: 03-28-2018 acyclovir 5 % Ointment Apply topically to all lesions 6 times daily X 7 days. 1 Tube 0 03/28/2018 Active [id number] 200 actuat albuterol 0.09 mg/actuat metered dose inhaler (5 sources) beta2-Adrenergic Agonist Start: 08-30-2022 End: 09-06-2022 take 2 puff(s) by inhalation every six hours as needed for wheezing albuterol 90 mcg/actuation inhaler Indications: Viral URI Inhale 2 (two) puffs every 6 (six) hours as needed for wheezing . 6.7 g 0 08/30/2022 Active alclometasone dipropionate 0.5 mg/ml topical cream (20 sources) Corticosteroid Start: 02-24-2024 Alclometasone Active 1 APPLIC TOPICAL Twice daily February 24, 2024 12:00am Start: 12-04-2023 Alclometasone Dipropionate 0.05 % Cream Indications: Seborrheic dermatitis Apply 0.05 mg topically As directed as needed. Apply to affected area 1-2 times daily when skin flared 12/04/2023 Active Start: 04-01-2020 End: 12-04-2023 Alclometasone Dipropionate 0 .05 % Cream Indications: Seborrheic dermatitis Apply to affected area 1-2 times daily when skin flared 45 g 3 04/01/2020 12/04/2023 Discontinued Start: 04-01-2020 alclometasone (ACLOVATE) 0.05 % cream [...] at bedtime. 01/14/2018 Active aspirin 81 mg delayed release oral tablet (20 sources) Platelet Aggregation Inhibitor, Nonsteroidal Anti-inflammatory Drug Start: 08-06-2018 take 81 mg by mouth once daily Aspirin Active 81 MG PO Daily August 06, 2018 1:00am Start: 10-14-2017 aspirin 81 MG Chew Tab [...] capsule 0 08/30/2022 09/06/2022 Active calcium citrate 1040 mg oral tablet (20 sources) Start: 02-24-2024 take 500 mg by mouth once daily Calcium Citrate Active 500 MG PO Daily February 24, 2024 12:00am take 600 mg by mouth twice daily CALCIUM CITRATE PO Take 600 mg by mouth 2 times daily. Active take 1200 mg by mouth twice renetta y CALCIUM CITRATE PO Take 1,200 mg by mouth 2 times daily. Active take 1200 mg by mouth once daily CALCIUM CITRATE PO Take 1,200 mg by mouth daily. 0 Active carBAMazepine 100 mg chewable tablet (20 sources) Mood Stabilizer Start: 04-21-2021 End: 12-04-2023 carBAMazepine 100 MG Chew Tab Take 2 tablets daily in the morning and 3 tablets daily in the evening 12/04/2023 Active Start: 08-06-2018 take 300 mg by mouth once daily at bedtime Carbamazepine Active 300 MG PO Daily at bedtime August 06, 2018 1:00am Start: 08-06-2018 take 200 mg by mouth once daily in the morning Carbamazepine Active 200 MG PO Every morning August 06, 2018 1:00am Start: 12-30-2017 carBAMazepine 100 MG Chew Tab [...] (20 sources) Histamine-1 Receptor Antagonist Start: 06-28-2023 End: 12-04-2023 take 1 tablet by mouth once daily Cetirizine 10 MG tablet Take 1 tablet by mouth daily. 90 tablet 3 12/04/2023 Active Start: 12-05-2021 End: 10-29-2022 take 1 tablet by mouth once daily Cetirizine 10 MG tablet Take 1 tablet by mouth daily. 90 tablet 1 10/29/2022 Active Start: 08-06-2018 take 1 tablet by bernice th once daily cetirizine 10 MG tablet Take 1 tablet by mouth daily. 90 tablet 1 07/10/2021 Active Start: 02-11-2018 End: 05-20-2018 take 1 tablet by mouth once daily cetirizine 10 MG Tab tablet Take 1 tablet by mouth daily. 30 tablet 5 05/20/2018 Active chlorthalidone 25 mg oral tablet (15 sources) Thiazide-like Diuretic Start: 02-24-2024 take 25 mg by mouth once daily Chlorthalidone Active 25 MG PO Daily February 24, 2024 12:00am take 25 mg by mouth once daily C hlorthalidone (THALITONE PO) Take 25 mg by mouth daily. Active Cpap (Continuous Positive Airway Pressure) (1 source) Start: 02-24-2024 Cpap (Continuo us Positive Airway Pressure) Active 0 .ROUTE February 24, 2024 12:00am As directed escitalopram 20 mg oral tablet (20 sources) Serotonin Reuptake Inhibitor Start: 08-06-2018 take 1 tablet by mouth once daily [...] topical cream (20 sources) Azole Antifungal Start: 02-24-2024 Ketoconazole Active 1 APPLIC TOPICAL Daily February 24, 2024 12:00am Start: 12-04-2023 Ketoconazole 2 % Cream cream Indications: Seborrheic dermatitis Apply 1 Application topically daily as needed. Apply to affected area up to twice daily --> okay to use every day without breaks if needed 12/04/2023 Active Start: 04-01-2020 End: 12-04-2023 ketoconazole 2 % Cream cream Indications: Seborrheic dermatitis Apply to affected area up to twice daily --> okay to use every day without breaks if needed 30 g 3 04/01/2020 12/04/2023 Discontinued Start: 04-01-2020 ketoconazole ( NIZORAL) 2 % cream Apply to affected area up to twice daily --> okay to use every day without breaks if needed 0 04/01/2020 Active Start: 11-05-2017 ketoconazole 2 % Shampoo shampoo Apply 1 Application topically 3 times weekly. 120 mL 5 11/05/2017 Active losartan potassium 25 mg oral tablet (20 sources) Angiotensin 2 Receptor Matthew Start: 02-24-2024 take 25 mg by mouth once daily Losartan Active 25 MG PO Daily February 24, 2024 12:00am Start: 09-19-2022 take 1 tablet by bernice th once daily Losartan 25 MG tablet Take [...] daily. 180 tablet 3 09/18/2021 Active Start: 08-06-2018 take 400 mg by mouth twice ruben ly Magnesium Oxide Active 400 MG PO Twice daily August 06, 2018 1:00am Start: 02-27-2018 take 1 tablet by bernice th twice daily magnesium oxide 400 (241.3 Mg) MG Tab tablet Take 1 tablet by mouth 2 times daily. 60 tablet 11 02/27/2018 Active montelukast 10 mg oral tablet (20 sources) Leukotriene Receptor Antagonist Start: 06-28-2023 End: 12-04-2023 take 1 tablet by mouth once daily Montelukast 10 MG tablet Take 1 tablet by mouth daily. 90 tablet 3 12/04/2023 Active Start: 12-05-2021 End: 10-29-2022 take 1 tablet by mouth once daily Montelukast 10 MG tablet Take 1 tablet by mouth daily. 90 tablet 1 10/29/2022 Active Start: 08-06-2018 take 1 tablet by bernice th once daily montelukast 10 MG tablet Take 1 tablet by mouth daily. 90 tablet 1 07/10/2021 Active Start: 03-11-2018 take 1 tablet by bernice th once daily montelukast 10 MG Tab tablet Take 1 tablet by mouth daily. 30 tablet 5 03/11/2018 Active multi (1 source) Start: 02-24-2024 multi Active P O February 24, 2024 12:00am Multiple Vitamins-Minerals (Multivitamins) Chew Tab (20 sources) [...] hours. 560 tablet 3 09/18/2021 Active Start: 08-06-2018 take 360 mg by mouth twice daily Mycophenolate Sodium Active 360 MG PO Twice daily August 06, 2018 1:00am Start: 09-18-2017 take 2 tablets by mo [facility] every twelve hours mycophenolate sodium (generic) 180 [...] oral tablet (20 sources) Atypical Antipsychotic Start: 02-24-2024 take 2.5 mg by mouth once daily Olanzapine Active 2.5 MG PO Daily February 24, 2024 12:00am Start: 04-21-2021 End: 12-04-2023 take 1 tablet by mouth at bedtime OLANZapine 2.5 MG tablet Take 1 tablet by mouth at bedtime. 12/04/2023 Active ondansetron 4 mg oral tablet (5 sources) Serotonin-3 Receptor Antagonist Start: 02-22-2017 take 1 tablet by mouth every eight hours as needed ondansetron 4 MG Tab take 1 tablet by mouth every 8 hours as needed for Nausea / Vomiting or Nausea.. 90 tablet 1 02/22/2017 Active pantoprazole (17 sources) Proton Pump Inhibitor Start: 02-24-2024 Pantoprazole Active MG PO February 24, 2024 12:00am Start: 12-31-2023 take 1 tablet by bernice th twice daily Pantoprazole (Protonix) [address] tablet DR Take 1 tablet by mouth 2 times daily. 180 tablet 3 12/31/2023 Active Start: 03-07-2023 take 1 tablet by bernice th twice daily Pantoprazole (Protonix) [address] tablet DR Take 1 tablet by mouth 2 times daily. 180 tablet 2 03/07/2023 Active Start: 12-10-2022 take 1 tablet by bernice th twice daily Pantoprazole (Protonix) [address] tablet DR Take 1 tablet by mouth 2 times daily. 180 tablet 0 12/10/2022 Active polymyxin b 90272 unt/ml / trimethoprim 1 mg/ml ophthalmic solution [...] the eye(s) every four hours polymyxin b-trimethoprim 65318-6.1 UNIT/ML-% Solution ophthalmic solution Place 1 drop in both eyes every 4 hours for 7 days. 10 mL 0 03/02/2022 03/09/2022 Active rOPINIRole 0.25 mg oral tablet (20 sources) Nonergot Dopamine Agonist Start: 02-24-2024 take 0.5 mg by mouth once daily at bedtime Ropinirole Active 0.5 MG PO Daily at bedtime February 24, 2024 9:32am Start: 08-06-2018 End: 02-24-2024 take 0.25 mg by mouth once daily at bedtime Ropinirole Discontinued 0.25 MG PO Daily at bedtime August 06, 2018 1:00am February 24, 2024 9:35am take 1 tablet by bernice th at bedtime rOPINIRole 0.5 MG tablet Take 1 tablet by mouth at bedtime. Active rOPINIRole 0.25 MG Tab take 0.25 mg by mouth at bedtime.. Active sildenafil 100 mg oral tablet (20 sources) Phosphodiesterase 5 Inhibitor Start: 02-24-2024 Sildenafil Active 100 MG PO Daily February 24, 2024 12:00am administer 30 minutes to 4 hours before activity Start: 10-09-2021 sildenafil cit rate 100 MG tablet Take 0.5-1 tablets by mouth as needed for Erectile Dysfunction. 30 tablet 2 10/09/2021 Active Start: 10-09-2021 sildenafiL ( AGRA) 100 MG tablet Take 0.5 (one-half) tablet to 1 (one) tablet (50-100 mg total) by mouth as needed . 0 10/09/2021 Active sodium zirconium cyclosilica te 5000 mg powder for oral suspension (15 sources) Start: 02-24-2024 Sodium Zirconi um Cyclosilicate (Lokelma) 5 gram powder in packet Active 5 GM PO Daily February 24, 2024 12:00am Sodium Zirconium Cyclosilicate (Lokelma) 5 g Pack powder Take 2 packets by mouth daily. Active tacrolimus 1 mg oral capsule (20 sources) Calcineurin Inhibitor Immunosuppressant Start: 05-18-2021 End: 12-04-2023 take 1 capsule by mouth twice daily Tacrolimus (PROGRAF) 1 MG capsule Take 6 capsules by mouth 2 times daily. 12/04/2023 Active Start: 08-06-2018 take 6 mg by mouth e very twelve hours Tacrolimus Active 6 MG PO Q12H August 06, 2018 1:00am Start: 02-27-2018 take 6 capsules by m outh every twelve hours, then take 1 capsule by mouth tacrolimus (generic) 1 MG Cap capsule Take 6 capsules by mouth every 12 hours. Diagnosis Code: ICD 9:V42.0, ICD 10:Z94.0 - Kidney transplant 09/25/2016 360 capsule 11 02/27/2018 Active terbinafine hydrochloride 10 mg/ml topical cream (20 sources) Allylamine Antifungal Start: 12-04-2023 Terbinafine 1 % Crea m cream Indications: Tinea pedis, unspecified laterality Place 1 Application on skin As directed as needed. Apply to affected area (feet) twice daily 12/04/2023 Active Start: 04-01-2020 End: 12-04-2023 terbinafine 1 % Cream cream Indications: Tinea pedis, unspecified laterality Apply to affected area (feet) twice daily 36 g 3 04/01/2020 12/04/2023 Discontinued testosterone cypionate 200 mg/ml injectable solution (9 [...] tablet (20 sources) Vitamin B12 Start: 09-26-2021 End: 12-04-2023 take 2 tablets by mouth once daily in the morning cyanocobalamin 500 MCG tablet Take 2 tablets by mouth daily every morning. 12/04/2023 Active Start: 08-22-2020 take 2 tablets by [...] Antibacterial, Polymyxin-class Antibacterial Start: 10-24-2022 End: 10-24-2022 fypkeaal-gprmnqhkgx-bgwqkhrn n (NEOSPORIN) 400-5-5000 ointment 1 Application. cefTRIAXone [...] daily. 90 capsule 0 11/03/2021 Active Start: 08-06-2018 End: 02-24-2024 take 40 mg by mouth once daily Omeprazole Discontinued 40 MG PO Daily August 06, 2018 1:00am February 24, 2024 9:34am Start: 04-29-2015 take 1 tablet by bernice [...] 4 Resolved: 0 02-19-2017 Chronic Essential hypertension (20 sources) Essential hypertension; 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: [Essential (primary) hypertension] Onset: 2 01-21-2022 Chronic Hyperplasia of prostate (1 source) Benign [...] disorder; 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: [Depression] 02-19-2017 Chronic Mood disorders (20 sources) Mood disorders; 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: [Depression, unspecified] Onset: 7 Resolved: 4 11-30-2021 Nutritional deficiencies (20 sources) Vitamin D deficiency; 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: [Vitamin D deficiency, unspecified] Onset: 9 Resolved: 0 04-26-2020 Chronic Open wounds of extremities (4 sources) Laceration of hand without foreign body; 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: [Laceration without foreign body of right hand, initial encounter] Onset: 3 Episodic Other aftercare (2 sources) Transplant follow-up; 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: [Encounter for aftercare following other organ transplant] Chronic Other aftercare (2 sources) Taking high risk medication; 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: [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] Episodic Other aftercare (1 source) Long-term current use of immunosuppressive drug; 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: [Other halfway (current) drug therapy] Episodic Other aftercare (1 source) Wound ; 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: [Encounter for other specified surgical aftercare] Episodic Other and unspecified benign neoplasm (1 [...] hyperparathyroidism of renal origin] 09-25-2016 Chronic Other ear and sense organ disorders (1 source) Impacted cerumen in right ear; 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: [Impacted cerumen, right ear] 12-04-2023 Episodic Other eye disorders (1 source) Red right eye; 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: [Other specified disorders of eye and adnexa] Episodic Other gastrointestinal disorders (3 sources) Bariatric surgery status; 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: [Bariatric surgery status] Onset: 3 Episodic Other gastrointestinal disorders (1 source) History of bypass of stomach; 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: [Bariatric surgery status] 02-24-2024 Episodic Other hereditary and degenerative nervous system conditions (20 sources) Restless legs; 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: [Restless legs syndrome] Onset: 2 03-02-2022 Chronic Other inflammatory condition of skin (1 source) Seborrheic dermatitis; 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: [Seborrheic dermatitis, unspecified] 12-04-2023 Episodic Other inflammatory condition of skin (2 sources) Seborrheic dermatitis, unspecified; 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: [Seborrheic dermatitis, unspecified] Onset: 4 Episodic Other male genital disorders (2 sources) Male erectile dysfunction, unspecified; 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: [Impotence of organic origin] Chronic Other nervous system disorders (2 sources) Other chronic pain; 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: [Other chronic pain] Onset: 8 Chronic Other nervous system disorders (3 sources) H/O: respiratory disease; 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: [Personal history of other diseases of the nervous system and sense organs] 09-30-2023 Episodic Other non-traumatic joint disorders (2 sources) Pain in right knee; 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: [Pain in right knee] Onset: 8 Episodic Other non-traumatic joint disorders (2 sources) Acute ankle pain; 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: [Pain in right ankle and joints of right foot] 04-16-2023 Episodic Other non-traumatic joint disorders (2 sources) Pain in right ankle and joints of right foot; 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: [Pain in right ankle and joints of right foot] Onset: 4 Episodic Other non-traumatic joint disorders (1 source) Ankle pain; 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: [Pain in right ankle and joints of right foot] 02-24-2024 Episodic Other nutritional; endocrine; and metabolic disorders (20 sources) Morbid (severe) obesity due to excess calories; 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: [Severe obesity] Onset: 7 Resolved: 9 05-10-2017 Chronic Other nutritional; endocrine; and metabolic disorders (20 sources) Morbid obesity; 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: [Morbid (severe) obesity due to excess calories] Onset: 0 Resolved: 0 01-05-2020 Chronic Other nutritional; endocrine; and metabolic disorders (2 sources) Body mass index (BMI) 35.0-35.9, adult; 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: [Body mass index (BMI) 35.0-35.9, adult] Onset: 4 Chronic Other screening for suspected conditions (not mental disorders or infectious disease) (9 sources) Blood chemistry abnormal; 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: [Abnormal finding [...] Resolved: 0 04-26-2020 Chronic Residual codes; unclassified (4 sources) Obstructive sleep apnea (adult) (pediatric); 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: [Obstructive sleep apnea (adult) (pediatric)] Onset: 4 Chronic Residual codes; unclassified (1 source) Other general symptoms and signs; 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: [Other general symptoms] Episodic Residual codes; unclassified (1 source) At risk of nutritional deficit; 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: [Other specified personal risk factors, not elsewhere classified] 09-30-2023 Episodic Skin and subcutaneous tissue infections (2 sources) Local infection of the skin and subcutaneous tissue, unspecified; 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: [Local infection of the skin and subcutaneous tissue, unspecified] Onset: 3 Episodic Spondylosis; intervertebral disc disorders; other back problems (2 sources) Acute low back pain; 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: [Acute bilateral low back pain without sciatica] Episodic Unclassified (1 source) Follow-up / 145() Onset: 8 Unclassified (1 source) MRI Results / 555() Onset: 8 Unclassified (1 source) Knee Pain / [id number]() Onset: 8 Past or Other Problems Problem [...] behavior of skin] Onset: 05-28-2023 05-28-2023 Episodic Nutritional deficiencies (20 sources) Iron deficiency; 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: [Iron deficiency] Onset: 04-02-2019 Resolved: 04-26-2020 04-26-2020 Episodic Other aftercare (2 sources) Other halfway (current) drug therapy; 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: [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] Onset: 09-30-2023 Episodic Other and unspecified benign neoplasm (2 [...] limb, including shoulder] Onset: 05-28-2023 Episodic Other connective tissue disease (2 sources) Pain in right foot; 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: [Pain in right foot] Onset: 04-30-2023 Episodic Other eye disorders (2 sources) Ocular pain, right eye; 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: [Ocular pain, right eye] Onset: 04-20-2022 Episodic Other gastrointestinal disorders (20 sources) History of sleeve gastrectomy; 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: [Bariatric surgery status] Onset: 08-10-2019 09-03-2021 Episodic Other lower respiratory disease (20 sources) Snoring; 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: [Snoring] Resolved: 07-07-2019 04-15-2017 Episodic Other nervous system disorders (2 sources) Personal history of other diseases of the nervous system and sense organs; 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: [Personal history of other diseases of the nervous system and sense organs] Onset: 11-15-2023 Episodic Other non-traumatic joint disorders (2 sources) [...] neoplasm] Onset: 05-10-2017 Resolved: 05-21-2017 05-10-2017 Episodic Residual codes; unclassified (2 sources) Other specified personal risk factors, not elsewhere classified; 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: [Other specified personal risk factors, not elsewhere classified] Onset: 09-30-2023 Episodic Residual codes; unclassified (2 sources) Acquired absence of stomach [part of]; 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: [Acquired absence of stomach (part of)] Onset: 07-29-2023 Episodic Screening and history of mental health and substance abuse codes (20 sources) Ex-smoker; 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: [Personal history of nicotine dependence] Onset: 01-21-2022 01-21-2022 Episodic Sprains and strains (12 sources) Sprain of right ankle; 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: [Sprain of unspecified ligament of right ankle, initial encounter] Onset: 03-10-2023 03-11-2023 Episodic Unclassified (1 source) Osteoarthritis of right knee, unspecified osteoarthritis type Unclassified (1 source) MRI Results; 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: [MRI Results] Onset: 06-18-2018 Unclassified (5 sources) Onset: 03-10-2023 Resolved: 04-16-2023 03-10-2023 Results Test Name Value Interpretation Reference Range Facility EAR CERUMEN REMOVALon 2023 Sushila Saravia MD 12/04/2023 11:45 AM EAR CERUMEN REMOVAL Date/Time: 12/04/2023 11:00 AM Performed by: Sushila Saravia MD Authorized by: Sushila Saravia MD Procedure: Visualization: otoscopy Impaction noted: yes Location details: Right ear Procedure type: curette Patient tolerance: Tolerated well, no immediate complications [facility] Radiology Study observation (narrative) [facility] H. PYLORI STOOL AGon 024 H. PYLORI STOOL AG Negative Normal [facility] Comment on above: Result Comment: Refe rence range: Negative PERFORMED AT [facility] Performed By: #### L HPYG #### Testing performed at [facility] [address] [place] [address] [place] [address] FAX REQUESTon 11-21-2023 FAX TO [phone] and [phone] Normal [facility] Comment on above: Performed By: #### L HPYG #### Testing performed at [facility] [address] [place] [address] [place] [address] FAX REQUESTon 11-20-2023 FAX TO [phone] Normal [facility] HEMOGLOBIN A1Con 11-20-2023 Glucose [Mass/Vol] 114 mg/dL Normal [facility] HbA1c (Bld) [Mass fraction] 5.6 % Normal 0-6 [facility] Comment on above: Result Comment: NORMAL <5.7% PREDIABETES 5.7-6.4% DIABETES 6.5% OR HIGHER PTH INTACTOrdered By: Kaia Ni on 10-01-2023 Interpretation and review of laboratory results Abnormal [facility] Parathyrin.intact [Mass/Vol] 76.2 pg/mL High 14.0 - 72.0 pg/mL [facility] CBC,PLATELETSon 09-30-2023 Erythrocyte distribution width (RBC) [Ratio] 12.7 % 10.9 - 14.3 % [facility] Hematocrit (Bld) [Volume fraction] 37.8 % Low 39.6 - 48.8 % [facility] Hemoglobin (Bld) [Mass/Vol] 12.2 g/dL Low 13.4 - 16.8 g/dL [facility] Interpretation and review of laboratory results Abnormal [facility] MCH (RBC) [Entitic mass] 28.7 pg 26.1 - 33.3 pg [facility] MCHC (RBC) [Mass/Vol] 32.3 g/dL 31.9 - 36.5 g/dL [facility] MCV (RBC) [Entitic vol] 88.9 fL 79.0 - 94.5 fL [facility] Platelet mean volume (Bld) [Entitic vol] 11.2 fL 8.7 - 12.3 fL [facility] Platelets (Bld) [#/Vol] 191 10*3/uL 146 - 337 K/uL [facility] RBC (Bld) [#/Vol] 4.25 10*6/uL Low [facility] WBC (Bld) [#/Vol] 8.38 10*3/uL 3.73 - 10. 10 K/uL [facility] Hematocrit (Bld) [Volume fraction] 37.8 % Low 39.6-48.8 [facility] Comment on above: Order Comment: Pleas e CC to PCP (Mariana A Nirajk) at fax: [phone] Performed By: #### [place] [facility] [place] #### [facility] (DEFAULT) [address] [address] Hemoglobin (Bld) [Mass/Vol] 12.2 g/dL Low 13.4-16.8 [facility] Comment on above: Order Comment: Pleas e CC to PCP (Mariana A Eduardubachik) at fax: [phone] Performed By: #### [place] [facility] [place] #### [facility] (DEFAULT) [address] [address] MCV (RBC) [Entitic vol] 88.9 fL Normal 79.0-94.5 [facility] Comment on above: Order Comment: Pleas e CC to PCP (Mariana A Eduardubachik) at fax: [phone] Performed By: #### H EMO #### [facility] (DEFAULT) [address] [place] [address] Mean Cell Hgb 28.7 pg Normal 26.1-33.3 [facility] Comment on above: Order Comment: Pleas e CC to PCP (Mraiana A Eduardubachik) at fax: [phone] Performed By: #### H EMO #### [facility] (DEFAULT) [address] [place] [address] Mean Cell Hgb Conc 32.3 g/dL Normal 31.9-36.5 [facility] Comment on above: Order Comment: Pleas e CC to PCP (Mariana A Trubachik) at fax: [phone] Performed By: #### H EMOGC #### [facility] (DEFAULT) [address] [place] [address] Platelet mean volume (Bld) [Entitic vol] 11.2 fL Normal 8.7-12.3 [facility] Comment on above: Order Comment: Pleas e CC to PCP (Mariana A Trubachik) at fax: [phone] Performed By: #### H EMOGC #### [facility] (DEFAULT) [address] [place] [address] Platelets (Bld) [#/Vol] 191 10*3/uL Normal 146-337 [facility] Comment on above: Order Comment: Pleas e CC to PCP (Mariana A Trubachik) at fax: [phone] Performed By: #### H EMOGC #### [facility] (DEFAULT) [address] [place] [address] RBC (Bld) [#/Vol] 4.25 10*6/uL Low 4.38-5.83 [facility] Comment on above: Order Comment: Pleas e CC to PCP (Mariana A Trubachik) at fax: [phone] Performed By: #### H EMOGC #### [facility] (DEFAULT) [address] [place] [address] RBC Distribution 12.7 % Normal 10.9-14.3 [facility] Comment on above: Order Comment: Pleas e CC to PCP (Mariana A Trubachik) at fax: [phone] Performed By: #### H EMOGC #### [facility] (DEFAULT) [address] [place] [address] WBC (Bld) [#/Vol] 8.38 10*3/uL Normal 3.73-10.10 [facility] Comment on above: Order Comment: Pleas e CC to PCP (Mariana Miranda) at fax: [phone] Performed By: #### H [facility] [place] #### [facility] (DEFAULT) [address] [place] [address] COMPREHENSIVE METABOLIC PANE Abel 09-30-2023 Albumin [Mass/Vol] 4.4 g/dL 3.5 - 5.0 g/dL [facility] ALP [Catalytic activity/Vol] 60 U/L 32 - 126 U/L [facility] ALT [Catalytic activity/Vol] 11 U/L 10 - 52 U/L [facility] Anion gap [Moles/Vol] 16 mmol/L 7 - 17 mmol/L [facility] AST [Catalytic activity/Vol] 12 U/L 10 - 39 U/L [facility] Bilirubin [Mass/Vol] 0.3 mg/dL NINF - 1.5 mg/dL [facility] Calcium [Mass/Vol] 9.7 mg/dL 8.6 - 10. 5 mg/dL [facility] Chloride [Moles/Vol] 105 mmol/L 98 - 10 8 mmol/L [facility] CO2 [Moles/Vol] 25 mmol/L 21 - 31 mmol/L [facility] Creatinine [Mass/Vol] 1.72 mg/dL High 0.70 - 1.30 mg/dL [facility] eGFR, CKD-EPI, Male 46 Low - PINF [facility] Comment on above: Reported eGFR is bas ed on the CKD-EPI 2020 equation using creatinine, age, and sex. Glucose [Mass/Vol] 78 mg/dL 70 - 99 mg/dL [facility] Interpretation and review of laboratory results Abnormal [facility] Osmolality Calc [Osmolality] [facility] Potassium [Moles/Vol] 5.0 mmol/L 3.5 - 5.0 mmol/L [facility] Protein [Mass/Vol] 6.9 g/dL 6.4 - 8.3 g/dL [facility] Sodium [Moles/Vol] 141 mmol/L 135 - 145 mmol/L [facility] Urea nitrogen [Mass/Vol] 31 mg/dL High 7 - 25 mg/dL [facility] Urea nitrogen/Creatinine [Mass ratio] 18 mg/mg [facility] Albumin [Mass/Vol] 4.4 g/dL Normal 3.5-5.0 [facility] Comment on above: Order Comment: Pleas e CC to PCP (Mariana A Trubachik) at fax: [phone] Performed By: #### I RBC, CMPN #### [facility] (DEFAULT) [address] [place] [address] ALP [Catalytic activity/Vol] 60 U/L Normal 32-126 [facility] Comment on above: Order Comment: Pleas e CC to PCP (Mariana A Trubachik) at fax: [phone] Performed By: #### I RBC, CMPN #### [facility] (DEFAULT) [address] [place] [address] ALT [Catalytic activity/Vol] 11 U/L Normal 10-52 [facility] Comment on above: Order Comment: Pleas e CC to PCP (Mariana A Trubachik) at fax: [phone] Performed By: #### I RBC, CMPN #### [facility] (DEFAULT) [address] [place] [address] Anion gap [Moles/Vol] 16 mmol/L Normal 7-17 [facility] Comment on above: Order Comment: Pleas e CC to PCP (Mariana A Trubachik) at fax: [phone] Performed By: #### I RBC, CMPN #### [facility] (DEFAULT) [address] [place] [address] AST [Catalytic activity/Vol] 12 U/L Normal 10-39 [facility] Comment on above: Order Comment: Pleas e CC to PCP (Mariana A Trubachik) at fax: [phone] Performed By: #### I RBC, CMPN #### [facility] (DEFAULT) [address] [place] [address] Bilirubin [Mass/Vol] 0.3 mg/dL Normal <1.5 [facility] Comment on above: Order Comment: Pleas e CC to PCP (Mariana A Trubachik) at fax: [phone] Performed By: #### I RBC, CMPN #### [facility] (DEFAULT) [address] [place] [address] Calcium [Mass/Vol] 9.7 mg/dL Normal 8.6-10.5 [facility] Comment on above: Order Comment: Pleas e CC to PCP (Mariana A Trubachik) at fax: [phone] Performed By: #### I RBC, CMPN #### [facility] (DEFAULT) [address] [place] [address] Chloride [Moles/Vol] 105 mmol/L Normal 98-108 [facility] Comment on above: Order Comment: Pleas e CC to PCP (Mariana A Trubachik) at fax: [phone] Performed By: #### I RBC, CMPN #### [facility] (DEFAULT) [address] [place] [address] CO2 [Moles/Vol] 25 mmol/L Normal 21-31 [facility] Comment on above: Order Comment: Pleas e CC to PCP (Mariana A Trubachik) at fax: [phone] Performed By: #### I RBC, CMPN #### [facility] (DEFAULT) [address] [place] [address] Creatinine [Mass/Vol] 1.72 mg/dL High 0.70-1.30 [facility] Comment on above: Order Comment: Pleas e CC to PCP (Mariana A Trubachik) at fax: [phone] Performed By: #### I RBC, CMPN #### [facility] (DEFAULT) [address] [place] [address] GFR/1.73 sq M.predicted among non-blacks MDRD (S/P/Bld) [Vol rate/Area] 46 mL/min/{1.73_m2} Low >=60 [facility] Comment on above: Order Comment: Pleas e CC to PCP (Mariana A Trubachik) at fax: [phone] Result Comment: Repo rted eGFR is based on the CKD-EPI 2020 equation using creatinine, age, and sex. Performed By: #### I RBC, CMPN #### [facility] (DEFAULT) [address] [place] [address] Glucose [Mass/Vol] 78 mg/dL Normal 70-99 [facility] Comment on above: Order Comment: Pleas e CC to PCP (Mariana A Trubachik) at fax: [phone] Performed By: #### I RBC, CMPN #### [facility] (DEFAULT) [address] [place] [address] Osmolality [Osmolality] 302 mosm/kg Normal 278-305 [facility] Comment on above: Order Comment: Pleas e CC to PCP (Mariana A Trubachik) at fax: [phone] Performed By: #### I RBC, CMPN #### [facility] (DEFAULT) [address] [place] [address] Potassium [Moles/Vol] 5.0 mmol/L Normal 3.5-5.0 [facility] Comment on above: Order Comment: Pleas e CC to PCP (Mariana A Trubachik) at fax: [phone] Performed By: #### I RBC, CMPN #### [facility] (DEFAULT) [address] [place] [address] Protein [Mass/Vol] 6.9 g/dL Normal 6.4-8.3 [facility] Comment on above: Order Comment: Pleas e CC to PCP (Mariana A Trubachik) at fax: [phone] Performed By: #### I RBC, CMPN #### [facility] (DEFAULT) [address] [place] [address] Sodium [Moles/Vol] 141 mmol/L Normal 135-145 [facility] Comment on above: Order Comment: Pleas e CC to PCP (Mariana A Trubachik) at fax: [phone] Performed By: #### I RBC, CMPN #### [facility] (DEFAULT) [address] [place] [address] Urea nitrogen [Mass/Vol] 31 mg/dL High 7-25 [facility] Comment on above: Order Comment: Pleas e CC to PCP (Mariana A Trubachik) at fax: [phone] Performed By: #### I RBC, CMPN #### [facility] (DEFAULT) [address] [place] [address] Urea nitrogen/Creatinine [Mass ratio] 18 mg/mg Normal [facility] Comment on above: Order Comment: Pleas e CC to PCP (Mariana A Trubachik) at fax: [phone] Performed By: #### I RBC, CMPN #### [facility] (DEFAULT) [address] [place] [address] FERRITINon 09-30-2023 Ferritin [Mass/Vol] 381.3 ng/mL High 10.5 - 3 07.3 ng/mL [facility] Interpretation and review of laboratory results Abnormal [facility] Ferritin [Mass/Vol] 381.3 ng/mL High 10.5-307.3 [facility] Comment on above: Order Comment: Pleas e CC to PCP (Mariana A Trubachik) at fax: [phone] Performed By: #### F ERIB, FOLSB, B12B #### [facility] (DEFAULT) [address] [place] [address] FOLATE, SERUMOrdered By: Guerrero Wick on 09-30-2023 Folate [Mass/Vol] 44.78 ng/mL 5.38 - PIN F ng/mL [facility] Interpretation and review of laboratory results Normal [facility] FOLATE, SERUMon 09-30-2023 Folate 44.78 ng/mL Normal >5.38 [facility] Comment on above: Order Comment: Pleas e CC to PCP (Mariana Miranda) at fax: [phone] Performed By: #### I RBC, CMPN #### [facility] (DEFAULT) [address] [place] [address] IRON/IRON BINDING/TRANSFERRI Non 09-30-2023 Interpretation and review of laboratory results Normal [facility] Iron [Mass/Vol] 91 ug/dL [facility] Iron binding capacity [Mass/Vol] 295 [facility] Iron saturation [Mass fraction] 31 % 20 - 55 % [facility] Transferrin [Mass/Vol] 236 mg/dL 200 - 400 mg/dL [facility] Iron [Mass/Vol] 91 ug/dL Normal 40-174 [facility] Comment on above: Order Comment: Pleas e CC to PCP (Mariana Miranda) at fax: [phone] Performed By: #### I RBC, CMPN #### [facility] (DEFAULT) [address] [place] [address] Iron Saturation 31 % Normal 20-55 [facility] Comment on above: Order Comment: Pleas e CC to PCP (Mariana Miranda) at fax: [phone] Performed By: #### I RBC, CMPN #### [facility] (DEFAULT) [address] [place] [address] Total Iron Binding Capacity 295 mcg/dL Normal 250-425 [facility] Comment on above: Order Comment: Pleas e CC to PCP (Mariana Miranda) at fax: [phone] Performed By: #### I RBC, CMPN #### [facility] (DEFAULT) [address] [place] [address] Transferrin [Mass/Vol] 236 mg/dL Normal 200-400 [facility] Comment on above: Order Comment: Pleas e CC to PCP (Mariana Miranda) at fax: [phone] Performed By: #### I RBC, CMPN #### [facility] (DEFAULT) [address] [address] NICOTINE AND METABOLITES,SER UMon 09-30-2023 COTININE <3.0 Normal <3.0 [facility] Comment on above: Result Comment: ADDITIONAL INFORMATION This test was developed and its performance characteristics determined by [facility] in a manner consistent with CLIA requirements. This test has not been cleared or approved by the U.S. Food and Drug Administration. Test Performed by: [place] [address] Global Climate Change Researcher: Tashi Zhou M.D. Ph.D.; CLIA# [id number] Performed By: #### I RBC, CMPN #### [facility] (DEFAULT) [address] [address] NICOTINE <3.0 Normal <3.0 [facility] Comment on above: Performed By: #### I RBC, CMPN #### [facility] (DEFAULT) [address] [address] No Panel Informationon 09-29 [facility] PTH INTACTon 09-30-2023 Intact PTH 76.2 pg/mL High 14.0-72.0 [facility] Comment on above: Order Comment: Pleas e CC to PCP (Mariana Miranda) at fax: [phone] Performed By: #### I PTH #### [facility] (DEFAULT) [address] [address] VITAMIN Aon 09-30-2023 FREE RETINOL (VIT A) 106.0 mcg/dL High 32.5-78.0 [facility] Comment on above: Order Comment: Pleas e CC to PCP (Mariana Miranda) at fax: [phone] Result Comment: ADDITIONAL INFORMATION This test was developed and its performance characteristics determined by [facility] in a manner consistent with CLIA requirements. This test has not been cleared or approved by the U.S. Food and Drug Administration. Test Performed by: [facility] [place] [address] Global Climate Change Researcher: Tashi Zhou M.D. Ph.D.; CLIA# [id number] Performed By: #### Y TAE #### [facility] (DEFAULT) [address] [place] [address] VITAMIN B1on 09-30-2023 THIAMIN, RBC 159 nmol/L Normal 70-180 [facility] Comment on above: Order Comment: Joslyn HODGSON to PCP (Mariana Miranda) at fax: [phone] Result Comment: ADDITIONAL INFORMATION This test was developed and its performance characteristics determined by [facility] in a manner consistent with CLIA requirements. This test has not been cleared or approved by the U.S. Food and Drug Administration. Test Performed by: [facility] [place] [address] Global Climate Change Researcher: Tashi Zhou M.D. Ph.D.; CLIA# [id number] Performed By: #### Y VITB1 #### [facility] (DEFAULT) [address] [place] [address] VITAMIN B12on 09-30-2023 Cobalamin (Vitamin B12) [Mass/Vol] 513 pg/mL 211 - 911 pg/mL [facility] Comment on above: Testing of Methylmal onic Acid and Intrinsic Factor Blocking Antibody are recommended if clinical suspicion for pernicious anemia due to B12 deficiency is high for patients with intermediate B12 levels (211 to 400 pg/mL) to rule out spurious heterophile antibodies. Interpretation and review of laboratory results Normal [facility] Cobalamin (Vitamin B12) [Mass/Vol] 513 pg/mL Normal 211-911 [facility] Comment on above: Order Comment: Joslyn ward CC to PCP (Mariana Miranda) at fax: [phone] Result Comment: Test ing of Methylmalonic Acid and Intrinsic Factor Blocking Antibody are recommended if clinical suspicion for pernicious anemia due to B12 deficiency is high for patients with intermediate B12 levels (211 to 400 pg/mL) to rule out spurious heterophile antibodies. Performed By: #### F ERIB, FOLSB, B12B #### [facility] (DEFAULT) [address] [address] VITAMIN D (25-HYDROXY,TOTAL) on 09-30-2023 Interpretation and review of laboratory results Normal [facility] Vitamin D+Metabolites [Mass/Vol] 41.0 ng/mL 30.0 - 100.0 ng/mL [facility] Comment on above: <10 Deficiency 10-29 Insufficiency 30-100 Optimal Level >100 Possible Toxicity Vitamin D values hav e been shown to be falsely decreased in lipemic samples and should be interpreted with caution. [facility] 25-OH Vitamin D Total 41.0 ng/mL Normal 30.0-100.0 [facility] Comment on above: Order Comment: Joslyn ward CC to PCP (Mariana Miranda) at fax: [phone] Vitamin D values have been shown to be falsely decreased in lipemic samples and should be interpreted with caution. Result Comment: <10 Deficiency 10-29 Insufficiency 30-100 Optimal Level >100 Possible Toxicity Performed By: #### D 25OH #### [facility] (DEFAULT) [address] [address] INTERVENTIONAL UPPER ENDOSCO PYon 2023 [facility] Gastroenterology Patient Name: Lino Fontenot Procedure Date: 2023 9:29 AM Date of : 1965 Admit Type: Outpatient Age: 58 Room: [place] [address] Gender: Male Note Status: Finalized Attending MD: Schuyler Sparks MD, [id number] Procedure: Upper GI endoscopy Indications: Surveillance procedure, Epigastric abdominal pain, Heartburn, Postoperative assessment Providers: Schuyler Sparks MD (Doctor), Carl Mari MD (Doctor), Alex Rascon, RN (Nurse), Ella Gordon RN (Nurse), Cosmo Waters MD (Anesthesia Staff), JADEN Painting (Anesthesia Staff) Referring MD: REYES Gotti (Referring MD) Medicines: Monitored Anesthesia Care Complications: [...] the patient. Procedure Code(s): --- Professional --- 76040, Esophagogastroduodeno scopy, flexible, transoral; diagnostic, including collection of specimen(s) by brushing or washing, when performed (separate procedure) Diagnosis Code(s): --- Professional --- Z98.84, Bariatric surgery status R10.13, Epigastric pain R12, Heartburn Z09, Encounter for follow-up examination after completed treatment for conditions other than (more content not included)... LAB, [facility] Radiology Study observation (narrative) [facility] SURG PATH REQUESTon 05-28-20 Case Report [facility] Comment on above: Result Comment: Surg ical Pathology Report Case: [id number] Authorizing Provider: Aliza Davis MD Collected: 05/28/2023 02:42 PM Ordering Location: Dermatology Outpatient Received: 05/28/2023 02:44 PM [facility] Pathologist: Carlos Eduardo Sharif MD Specimen: Skin Bx Not cyst/tag/debridement/ plastic Performed By: #### S URGP #### [facility] (DEFAULT) [address] [place] [address] Clinical History Associated Diagnosis : Neoplasm of uncertain behavior of skin [D48.5]. Clinical History: R/o irritated nevus vs r/o atypia. Normal [facility] Comment on above: Performed By: #### S URGP #### [facility] (DEFAULT) [address] [place] [address] Gross Description [facility] Comment on above: Result Comment: The [...] whole. TE 1 Lab Use Only: JobID [id number] Grosser for this case was: Génesis Glover Performed By: #### S URGP #### [facility] (DEFAULT) [address] [place] [address] Microscopic Description A. Histologic sections show nevus cells that are confined to the dermis, that are arranged in nests and cords. The intradermal melanocytes mature adequately showing diminished nest size with depth. [facility] Comment on above: Performed By: #### S URGP #### [facility] (DEFAULT) [address] [place] [address] Pathologic Diagnosis [facility] Comment on above: Result Comment: A. S yomi, left upper arm, shave: Melanocytic nevus, intradermal type. Performed By: #### S URGP #### [facility] (DEFAULT) [address] [place], [place] [address] Professional Interpretation Performed at: [facility] Comment on above: Result Comment: [facility] For Immediate Release to Patient's [facility]? Yes [address] [address] Performed By: #### S URGP #### [facility] (DEFAULT) [address] [place], [place] [address] No Panel Informationon 03-11 IMPRESSION: Radiographically negative [...] Radiographically negative right foot and right ankle. [facility] No Panel InformationOrdered By: Felix Adame on 03-11-2023 [facility] Work Phone: XR ANKLE RIGHT 3+ [...] negative right foot and right ankle. Normal [facility] XR FOOT RIGHT 3 VIEWSon 03-01 [...] negative right foot and right ankle. Normal [facility] XR Ankle - right 3 View[facility] 0 03-10-2023 Radiology Study observation (narrative) [facility] XR Foot - right 3 [facility] Radiology Study observation (narrative) [facility] PSA, REFLEX TO FREE AND TOTA L PSAon 01-04-2022 Interpretation and review of laboratory results Normal [facility] Prostate specific Ag [Mass/Vol] 0.68 ng/mL <=4.00 [facility] Comment on above: This test was perfor med on the [employer] IM Immunoassay platform which is a 2-step sandwich chemiluminescent immunoassay. It is important to note that assays using different manufacturers and/or methods may not be comparable. [facility] TYPE AND SCREEN - PREADMISSI ONon 01-04-2022 ABO/RH(D) TYPE Positive [facility] XR Spine Lumbar and Sacrum 5 View[place] 10-13-2021 IMPRESSION: No evidence of acute fracture or dislocation. No significant degeneration. RADIOLOGY EXAM: XR SPINE LUMBOSACRAL 5 VIEWS HISTORY: Low back pain. COMPARISON: None. TECHNIQUE: 5 views. FINDINGS: 5 lumbar type vertebrae are present. Pedicles are intact. Vertebral body heights and disc spaces are well-maintained. No evidence of acute fracture or dislocation. RADIOLOGY Radha Tejada, - 10/13/2021 EXAM: XR SPINE LUMBOSACRAL 5 VIEWS HISTORY: Low back pain. COMPARISON: None. TECHNIQUE: 5 views. FINDINGS: 5 lumbar type vertebrae are present. Pedicles are intact. Vertebral body heights and disc spaces are well-maintained. No evidence of acute fracture or dislocation. IMPRESSION IMPRESSION: No evidence of acute fracture or dislocation. No significant degeneration. [facility] XR Spine Lumbar and Sacrum 5 ViewsOrdered By: Radha Tejada on 10-13-2021 [facility] Work Phone: US Kidneyon 10-12-2021 IMPRESSION: 1. Polycystic kidneys. 2. [...] technique is similar to CT from 12/25/2019. [facility] Radiology Study observation (narrative) [facility] US KidneyOrdered By: Trisha Patino on 10-12-2021 [facility] Work Phone: XR Spine Lumbar and Sacrum 5 Viewson 10-12-2021 Radiology Study observation (narrative) [facility] POCT URINALYSIS DIPSTICK AUT OMATED W/O SCOPon 10-09-2021 Amorphous sediment LM Ql (Urine sed) [facility] Appearance (U) CLEAR [facility] Bacteria LM Ql (Urine sed) [facility] Bilirubin Ql (U) Negative [facility] Casts LM.LPF (Urine sed) [#/Area] [facility] Color (U) YELLOW [facility] Crystals LM Nom (Urine sed) [facility] Epithelial cells.squamous LM.HPF (Urine sed) [#/Area] [facility] Flow cytometry specialist review Vikas (Unsp spec) [Interp] [facility] Glucose Auto test strip (U) [Mass/Vol] Negative mg/dL [facility] Interpretation and review of laboratory results Normal [facility] Ketones [Mass/Vol] Negative mg/dL [facility] Leukocyte esterase Qn (U) [facility] Leukocyte esterase Test strip Ql (U) Negative [facility] Nitrite Ql (U) Negative [facility] pH (U) 7.0 [pH] [facility] Protein Ql (U) Negative mg/dL [facility] RBC LM.HPF (Urine sed) [#/Area] [facility] RBC Ql (U) Negative [facility] Specific gravity (U) [Rel density] 1.025 [facility] Transitional cells LM Ql (Urine sed) [facility] Urobilinogen Qn (U) 0.2 [facility] WBC LM.HPF (Urine sed) [#/Area] [facility] ECG 12 lead ECGon 08-06-2018 ECG 12 lead ECG [facility] [place] [address] Electrocardiograph Report Signed Patient: Lino Fontenot MR#: [id number] : 1965 Acct:[id number] Age/Sex: 53 / M ADM Date: 08/06/18 Loc: [place] Room: Type: [facility] Attending Dr: Familia Stringer MD Ordering Provider: [...] DO 08/06/18 0759 Signed By: 08/06/18 1203 [facility] Abel 08-06-2018 L - -------- Specimen: [id number] Received: 08/06/18 Status: JHOANACatie Laura Num: [id number] Spec Type: Surgical Subm Dr: Familia Stringer MD Tissues: A Fistula (LT UP ARM FISTULA) Procedures: Agnes Mora/Isatu L3 -------- Patient Age/Sex Location Account Attending Physician -------- Lino Fontenot 53/M [place] [id number] Familia Stringer MD -------- SPEC NUM: [id number] RECD: 08/06/18 STATUS: EMILIE GASTELUM NUM: [id number] ZULEIMA: 08/06/[address] [facility] [address]: Familia Stringer MD ENTERED: 08/06/[address] [facility] [address]: ADAM TYPE: Surgical DEPT: S ENTERED BY: [id number] RECV BY: [id number] ORDERED: HE Stain, Gross/Micro L3 ORDERED: HE [...] specimen is red, laminated, gelatinous blood clot. Bait Painter sections are submitted in one cassette. (OCTAVIO/ORACIO/mary anne) Microscopic One glass slide with H E stained material has been examined. The microscopic findings support the above pathologic diagnosis. 74672 A. Fistula - LT UP ARM FISTULA -------- -------- Specimen: [id number] Received: 08/06/18 Status: EMILIE Gastelum Num: [id number] Spec Type: Surgical Subm Dr: Familia Stringer MD Tissues: A Fistula (LT UP ARM FISTULA) Procedures: HE Stain, Gross/Micro L3 -------- Patient: Lino Fontenot [id number] (Continued) -------- Signed (signature on file) Jone Bentley MD 08/07/18 [address] [facility] Potassiumon 08-06-2018 Potassium molar conc 4.9 mmol/L Normal 3.5-5.1 [facility] Comment on above: Result Comment: PERF ORMED BY: [facility] [address] [place] [address] PATHOLOGIST SOLARIS ADMINISTRATOR CLARIBEL MCKENZIE M.D. Performed By: #### K #### [facility] [address] CBC, PLATELETS PANEL, MANUAL ENTERon 05-28-2018 [...] LAB, [facility] Fax Requeston 01-28-2017 Fax To [phone] [facility] Comment on above: Performed By: #### F X ####[facility] [address] [place] [id number] lab Director: Dr. Bryce Vaughn DO Faxed By PAY 12:58 01/28/17 [facility] Comment on above: Performed By: #### F X ####[facility] [address] [place] [id number] [facility] Director: Dr. Bryce Vaughn DO Specimen # [id number] [facility] Comment on above: Performed By: #### F X ####[facility] [address] [place] [id number] lab Director: Dr. Bryce Vaughn DO Tacrolimus Lvlon 01-28-2017 Last Dose 01.27.17 at 2245 [facility] Comment on above: Performed By: #### L TAC ####[facility] [place] [id number] Tacrolimus Level See Ref. Lab report [facility] Comment on above: Performed By: #### L TAC ####[facility] [address] [place] [address] Fax Requeston 01-21-2017 Fax To [phone] [facility] Comment on above: Performed By: #### F X ####[facility] [address] [place] [address] lab Director: Dr. Bryce Vaughn DO Faxed By [facility] 01/21/17 @ 1112 [facility] Comment on above: Performed By: #### F X ####[facility] [address] [place] [address] lab Director: Dr. Bryce Vaughn, Lipid Profileon 01-21-2017 Cholesterol 124 mg/dL Normal 100 - 199 [facility] Comment on above: Performed By: #### L IP2 ####[facility] [address] [place] [address] Cholesterol in VLDL mass conc 13.0 mg/dL Normal <50.0 [facility] Comment on above: Performed By: #### L IP2 ####[facility] [address] [place] [address] Comment Normal [facility] Comment on above: Result Comment: Lito veronica Reference RangeDesirable <200 mg/dLBoderline High 200-239mg/dLHigh >240 mg/dL Performed By: #### L IP2 ####[facility] [address] [place] [address] Coronary Risk 2.88 Normal [facility] Comment on above: Performed By: #### L IP2 ####[facility] [address] [place] [address] Coronary Risk Ref Text Normal [facility] Comment on above: Result Comment: Risk Ratio Men Women1/2 Average 3.433.27Average 4.97 4.442X Average 9.55 7.053X Uwqqnsj99.99 11.04 Performed By: #### L IP2 ####[facility] [address] [place] [address] HDL Cholesterol 43 mg/dL Normal 40 - 60 [facility] Comment on above: Performed By: #### L IP2 ####[facility] [address] [place] [address] LDL Cholesterol 68 mg/dl Normal 0 - 100 [facility] Comment on above: Performed By: #### L IP2 ####[facility] [address] [address] Specimen # [id number] [facility] Comment on above: Performed By: #### L IP2 ####[facility] [address] [place] [address] Triglyceride 65 mg/dL Normal <150 [facility] Comment on above: Performed By: #### L IP2 ####[facility] [address] [place] [address] Tacrolimus Lvlon 01-21-2017 Last Dose 01.20.2017 AT 2300 [facility] Comment on above: Performed By: #### L TAC ####[facility] [address] [place] [address] Performed By [facility] Comment on above: Performed By: #### L TAC ####[facility] [address] [place] [address] [facility] Director: Dr. Bryce Vaughn, DO Specimen # [id number] [facility] Comment on above: Performed By: #### L TAC ####[facility] [address] [place] [address] lab Director: Dr. Bryce Vaughn DO Performed By: #### F X ####[facility] [address] [place] [address] lab Director: Dr. Bryce Vaughn DO Tacrolimus Level See Ref. Lab report [facility] Comment on above: Performed By: #### L TAC ####[facility] [place] [address] Tacrolimus Lvl 7.4 [facility] Comment on above: Performed By: #### L TAC ####[facility] [address] [place] [address] lab Director: Dr. Bryce Vaughn DO Tacrolimus Lvl Ref Text [facility] Comment on above: Result Comment: Refe rence range: 2.0 to 20.0 Unit: ng/mL(NOTE) Trough (immediately following transplant) 15.0 Trough (steady state, 2 weeks or more after transplant): 3.0 - 8.0 Detection Limit = 1.0 Performed by LC-MS/MS technology.PERFORMED AT [facility] Performed By: #### L TAC ####[facility] [address] [place] [address] lab Director: Dr. Bryce Vaughn DO Radiologyon [...] aligned. No other acute osseous abnormalities noted. [facility] Tacrolimus Lvlon 01-14-2017 Last Dose 01-13-17 AT 2200 [facility] Comment on above: Performed By: #### L TAC ####[facility] [address] [place] [address] Performed By [facility] Comment on above: Performed By: #### L TAC ####[facility] [address] [place] [address] lab Director: Dr. Bryce Vaughn, Specimen # [id number] [facility] Comment on above: Performed By: #### L TAC ####[facility] [address] [place], [place] [id number] lab Director: Dr. Bryce Vaughn, Tacrolimus Level See Ref. Lab report [facility] Comment on above: Performed By: #### L TAC ####[facility] [address] [place] [address] Tacrolimus Lvl 8.7 [facility] Comment on above: Performed By: #### L TAC ####[facility] [address] [place] [address] lab Director: Dr. Bryce Vaughn, Tacrolimus Lvl Ref Text [facility] Comment on above: Result Comment: Refe rence range: 2.0 to 20.0 Unit: ng/mL(NOTE) Trough (immediately following transplant) 15.0 Trough (steady state, 2 weeks or more after transplant): 3.0 - 8.0 Detection Limit = 1.0 Performed by LC-MS/MS technology.PERFORMED AT [facility] Performed By: #### L TAC ####[facility] [address] [place], [place] [id number] lab Director: Dr. Bryce Vaughn, Tacrolimus Lvlon 01-07-2017 Last Dose 7..17 at 2215 [facility] Comment on above: Performed By: #### L TAC ####[facility] [place] [address] Performed By [facility] Comment on above: Performed By: #### L TAC ####[facility] [address] [place] [address] lab Director: Dr. Bryce Vaughn, Specimen # [id number] [facility] Comment on above: Performed By: #### L TAC ####[facility] [address] [place] [address] lab Director: Dr. Bryce Vaughn, DO Tacrolimus Level See Ref. Lab report [facility] Comment on above: Performed By: #### L TAC ####[facility] [place] [address] Tacrolimus Lvl 7.2 [facility] Comment on above: Performed By: #### L TAC ####[facility] [address] [place] [address] lab Director: Dr. Bryce Vaughn, DO Tacrolimus Lvl Ref Text [facility] Comment on above: Result Comment: Refe rence range: 2.0 to 20.0 Unit: ng/mL(NOTE) Trough (immediately following transplant) 15.0 Trough (steady state, 2 weeks or more after transplant): 3.0 - 8.0 Detection Limit = 1.0 Performed by LC-MS/MS technology.PERFORMED AT [facility] Performed By: #### L TAC ####[facility] [address] [place] [address] lab Director: Dr. Bryce Vaughn, DO Tacrolimus Lvlon 12-31-2016 Last Dose 7. at 2230 [facility] Comment on above: Performed By: #### L TAC ####[facility] [place] [address] Performed By [facility] Comment on above: Performed By: #### L TAC ####[facility] [address] [place] [address] lab Director: Dr. Bryce Vaughn, Specimen # [id number] [facility] Comment on above: Performed By: #### L TAC ####[facility] [address] [place] [address] lab Director: Dr. Bryce Vaughn, DO Tacrolimus Level See Ref. Lab report [facility] Comment on above: Performed By: #### L TAC ####[facility] [address] [place] [address] Tacrolimus Lvl 8.3 [facility] Comment on above: Performed By: #### L TAC ####[facility] [address] [place] [address] lab Director: Dr. Bryce Vaughn, DO Tacrolimus Lvl Ref Text [facility] Comment on above: Result Comment: Refe rence range: 2.0 to 20.0 Unit: ng/mL(NOTE) Trough (immediately following transplant) 15.0 Trough (steady state, 2 weeks or more after transplant): 3.0 - 8.0 Detection Limit = 1.0 Performed by LC-MS/MS technology.PERFORMED AT [facility] Performed By: #### L TAC ####[facility] [address] [place] [address] lab Director: Dr. Bryce Vaughn, Vital Signs Date Time Vital Sign Value Performing Clinician Stefany burnham 02-24-2024 09: Body height 170.18 cm [facility] 02-24-2024 09: Body mass index (BMI) [Ratio] 36.9 kg/m2 [facility] 02-24-2024 09:09-0400 Body weight 107.04 kg [facility] 02-24-2024 09:09-0400 Diastolic blood pressure 68 mm[Hg] [facility] 02-24-2024 09:09-0400 Heart rate 62 /min [facility] 02-24-2024 09:09-0400 SaO2% (BldA) [Mass fraction] 98 % [facility] 02-24-2024 09:09-0400 Systolic blood pressure 112 mm[Hg] [facility] 02-20-2024 11:20-0400 Body height 170.2 cm Griselda Moore MD Work Phone: [facility] 02-20-2024 11:20-0400 Body mass index (BMI) [Ratio] 37.59 kg/m2 Griselda Moore MD Work Phone: [facility] 02-20-2024 11:20-0400 Body temperature 97.2 [degF] Griselda Moore MD Work Phone: [facility] 02-20-2024 11:20-0400 Body weight 108.86 kg Griselda Moore MD Work Phone: [facility] 02-20-2024 11:20-0400 Diastolic blood pressure 72 mm[Hg] Griselda Moore MD Work Phone: [facility] 02-20-2024 11:20-0400 Heart rate 62 /min Griselda Moore MD Work Phone: [facility] 02-20-2024 11:20-0400 Respiratory rate 16 /min Griselda Moore MD Work Phone: [facility] 02-20-2024 11:20-0400 SaO2% (BldA) [Mass fraction] 98 % Griselda Moore MD Work Phone: [facility] 02-20-2024 11:20-0400 Systolic blood pressure 148 mm[Hg] Griselda Moore MD Work Phone: [facility] 01-15-2024 11:08-0400 Body height 170.2 cm Sushila Saravia MD Work Phone: [facility] 01-15-2024 11:08-0400 Body mass index (BMI) [Ratio] 37.93 kg/m2 Sushila Saravia MD Work Phone: [facility] 01-15-2024 11:08-0400 Body temperature 98.01 [degF] Sushila Saravia MD Work Phone: [facility] 01-15-2024 11:08-0400 Body weight 109.86 kg Sushila Saravia MD Work Phone: [facility] 01-15-2024 11:08-0400 Diastolic blood pressure 60 mm[Hg] Sushila Saravia MD Work Phone: [facility] 01-15-2024 11:08-0400 Heart rate 68 /min Sushila Saravia MD Work Phone: [facility] 01-15-2024 11:08-0400 Respiratory rate 12 /min Sushila Saravia MD Work Phone: [facility] 01-15-2024 11:08-0400 SaO2% (BldA) [Mass fraction] 96 % Sushila Saravia MD Work Phone: [facility] 01-15-2024 11:08-0400 Systolic blood pressure 118 mm[Hg] Sushila Saravia MD Work Phone: [facility] 12-25-2023 08:16-0400 Body height 170.2 cm Cait Richardson MD Work Phone: [facility] Comment on above: Per patient 12-25-2023 08:16-0400 Body mass index (BMI) [Ratio] 37.07 kg/m2 Cait Richardson MD Work Phone: [facility] 12-25-2023 08:16-0400 Body weight 107.37 kg Cait Richardson MD Work Phone: [facility] 12-25-2023 08:16-0400 Diastolic blood pressure 68 mm[Hg] Cait Richardson MD Work Phone: [facility] 12-25-2023 08:16-0400 Heart rate 60 /min Cait Richardson MD Work Phone: [facility] 12-25-2023 08:16-0400 SaO2% (BldA) [Mass fraction] 98 % Cait Richardson MD Work Phone: [facility] 12-25-2023 08:16-0400 Systolic blood pressure 122 mm[Hg] Cait Richardson MD Work Phone: [facility] 12-04-2023 10:48-0400 Body height 170.2 cm Sushila Saravia MD Work Phone: [facility] 12-04-2023 10:48-0400 Body mass index (BMI) [Ratio] 37.21 kg/m2 Sushila Saravia MD Work Phone: [facility] 12-04-2023 10:48-0400 Body temperature 98.8 [degF] Sushila Saravia MD Work Phone: [facility] 12-04-2023 10:48-0400 Body weight 107.78 kg Sushila Saravia MD Work Phone: [facility] 12-04-2023 10:48-0400 Diastolic blood pressure 68 mm[Hg] Sushila Saravia MD Work Phone: [facility] 12-04-2023 10:48-0400 Heart rate 71 /min Sushila Saravia MD Work Phone: [facility] 12-04-2023 10:48-0400 Respiratory rate 18 /min Sushila Saravia MD Work Phone: [facility] 12-04-2023 10:48-0400 SaO2% (BldA) [Mass fraction] 97 % Sushila Saravia MD Work Phone: [facility] 12-04-2023 10:48-0400 Systolic blood pressure 94 mm[Hg] Sushila Saravia MD Work Phone: [facility] 09-30-2023 15:22-0400 Diastolic blood pressure 82 mm[Hg] Caty Tychonievich CORE CUTTER AND REAMER-PUDDLER HELPER Work Phone: [facility] 09-30-2023 15:22-0400 Systolic blood pressure 132 mm[Hg] Caty Tychonievich CORE CUTTER AND REAMER-PUDDLER HELPER Work Phone: [facility] 09-30-2023 13:51-0400 Body height 170.2 cm Caty Tychonievich CORE CUTTER AND REAMER-PUDDLER HELPER Work Phone: [facility] 09-30-2023 13:51-0400 Body mass index (BMI) [Ratio] 35.91 kg/m2 Caty Tychonievich CORE CUTTER AND REAMER-PUDDLER HELPER Work Phone: [facility] 09-30-2023 13:51-0400 Body temperature 97.81 [degF] Caty Tychonievich CORE CUTTER AND REAMER-PUDDLER HELPER Work Phone: [facility] 09-30-2023 13:51-0400 Body weight 104.01 kg Caty Tychonievich CORE CUTTER AND REAMER-PUDDLER HELPER Work Phone: [facility] 09-30-2023 13:51-0400 Heart rate 63 /min Caty Tychonievich CORE CUTTER AND REAMER-PUDDLER HELPER Work Phone: [facility] 09-30-2023 13:51-0400 Respiratory rate 16 /min Caty Tychonievich CORE CUTTER AND REAMER-PUDDLER HELPER Work Phone: [facility] 09-30-2023 13:51-0400 SaO2% (BldA) [Mass fraction] 98 % Caty CHAMBERS Work Phone: [facility] Comment on above: roomair 2023 10:30-0500 Diastolic blood pressure 75 mm[Hg] Schuyler Sparks MD Work Phone: [facility] 2023 10:30-0500 Heart rate 58 /min Schuyler Sparks MD Work Phone: [facility] 2023 10:30-0500 Respiratory rate 22 /min Schuyler Sparks MD Work Phone: [facility] 2023 10:30-0500 SaO2% (BldA) [Mass fraction] 97 % Schuyler Sparks MD Work Phone: [facility] 2023 10:30-0500 Systolic blood pressure 158 mm[Hg] Schuyler Sparks MD Work Phone: [facility] 2023 09:59-0500 Body temperature 98.6 [degF] Schuyler Sparks MD Work Phone: [facility] 2023 09:09-0500 Body height 170.2 cm Schuyler Sparks MD Work Phone: [facility] 04-19-2023 10:26-0400 Body height 170.2 cm Ilene Diego DPM Work Phone: [facility] 04-19-2023 10:26-0400 Body mass index (BMI) [Ratio] 38.4 kg/m2 Ilene Bark DPM Work Phone: [facility] 04-19-2023 10:26-0400 Body temperature 97.7 [degF] Ilene Diego DPM Work Phone: [facility] 04-19-2023 10:260400 Body weight 111.2 kg Ilene Diego DPM Work Phone: [facility] 04-16-2023 14:210400 Body height 170.2 cm Mariana Miranda CORE CUTTER AND REAMER-PUDDLER HELPER Work Phone: [facility] [employer] [facility] 04-16-2023 14:-0400 Body mass index (BMI) [Ratio] 38.4 kg/m2 Mariana Chapaubachik CORE CUTTER AND REAMER-PUDDLER HELPER Work Phone: [employer] [facility] 04-16-2023 14:-0400 Body temperature 98.71 [degF] Mariana Chapaubachik CORE CUTTER AND REAMER-PUDDLER HELPER Work Phone: [facility] [employer] [facility] 04-16-2023 14:-0400 Body weight 111.22 kg Mariana Harkinschik CORE CUTTER AND REAMER-PUDDLER HELPER Work Phone: [facility] [employer] [facility] 04-16-2023 14:21-0400 Diastolic blood pressure 74 mm[Hg] Mariana Chapaubachik CORE CUTTER AND REAMER-PUDDLER HELPER Work Phone: [email or web address] [facility] 04-16-2023 14:21-0400 Heart rate 86 /min Mariana Chapaubachik CORE CUTTER AND REAMER-PUDDLER HELPER Work Phone: [facility] [employer] [facility] 04-16-2023 14:21-0400 Respiratory rate 18 /min Mariana Chapaubachik CORE CUTTER AND REAMER-PUDDLER HELPER Work Phone: [facility] [employer] [facility] 04-16-2023 14:21-0400 SaO2% (BldA) [Mass fraction] 97 % Mariana Chapaubachik CORE CUTTER AND REAMER-PUDDLER HELPER Work Phone: [email or web address] [facility] 04-16-2023 14:21-0400 Systolic blood pressure 120 mm[Hg] Mariana Trubachik CORE CUTTER AND REAMER-PUDDLER HELPER Work Phone: [facility] 03-10-2023 23:11-0400 Body height 170.2 cm Jackson Shaffer MD Work Phone: [facility] [employer] [facility] 03-10-2023 23:11-0400 Body temperature 97.39 [degF] Jackson Shaffer MD Work Phone: [facility] 03-10-2023 23:11-0400 Diastolic blood pressure 70 mm[Hg] Jackson Shaffer MD Work Phone: [facility] 03-10-2023 23:11-0400 Heart rate 67 /min Jackson Shaffer MD Work Phone: [facility] 03-10-2023 23:11-0400 Respiratory rate 20 /min Jackson Shaffer MD Work Phone: [facility] 03-10-2023 23:11-0400 SaO2% (BldA) [Mass fraction] 100 % Jackson Shaffer MD Work Phone: [facility] 03-10-2023 23:11-0400 Systolic blood pressure 154 mm[Hg] Jackson Shaffer MD Work Phone: [facility] 12-10-2022 14:04-0400 Body height 170.2 cm Caty Tychonievich CORE CUTTER AND REAMER-PUDDLER HELPER Work Phone: [facility] 12-10-2022 14:04-0400 Body mass index (BMI) [Ratio] 37.79 kg/m2 Caty Tychonievich CORE CUTTER AND REAMER-PUDDLER HELPER Work Phone: [facility] 12-10-2022 14:04-0400 Body temperature 97.59 [degF] Caty Tychonievich CORE CUTTER AND REAMER-PUDDLER HELPER Work Phone: [facility] 12-10-2022 14:04-0400 Body weight 109.45 kg Caty Tychonievich CORE CUTTER AND REAMER-PUDDLER HELPER Work Phone: [facility] 12-10-2022 14:04-0400 Diastolic blood pressure 74 mm[Hg] Caty Tychonievich CORE CUTTER AND REAMER-PUDDLER HELPER Work Phone: [facility] 12-10-2022 14:04-0400 Heart rate 65 /min Caty Tychonievich CORE CUTTER AND REAMER-PUDDLER HELPER Work Phone: [facility] 12-10-2022 14:04-0400 Respiratory rate 16 /min Caty Penn APRN-PUDDLER HELPER Work Phone: [facility] 12-10-2022 14:04-0400 Systolic blood pressure 142 mm[Hg] Caty Penn APRN-PUDDLER HELPER Work Phone: [facility] 10-29-2022 09:57-0400 Body height 170.2 cm Mariana Mrianda APRN-PUDDLER HELPER Work Phone: [facility] 10-29-2022 09:57-0400 Body mass index (BMI) [Ratio] 37.34 kg/m2 Mariana Miranda CORE CUTTER AND REAMER-PUDDLER HELPER Work Phone: [facility] 10-29-2022 09:57-0400 Body temperature 97.5 [degF] Mariana Miranda APRN-PUDDLER HELPER Work Phone: [facility] 10-29-2022 09:57-0400 Body weight 108.14 kg Mariana Miranda CORE CUTTER AND REAMER-PUDDLER HELPER Work Phone: [facility] 10-29-2022 09:57-0400 Diastolic blood pressure 58 mm[Hg] Mariana Miranda CORE CUTTER AND REAMER-PUDDLER HELPER Work Phone: [facility] 10-29-2022 09:57-0400 Heart rate 71 /min Mariana Miranda CORE CUTTER AND REAMER-PUDDLER HELPER Work Phone: [facility] 10-29-2022 09:57-0400 Respiratory rate 18 /min Mariana Miranda CORE CUTTER AND REAMER-PUDDLER HELPER Work Phone: [facility] 10-29-2022 09:57-0400 SaO2% (BldA) [Mass fraction] 97 % Mariana Miranda CORE CUTTER AND REAMER-PUDDLER HELPER Work Phone: [facility] 10-29-2022 09:57-0400 Systolic blood pressure 116 mm[Hg] Mariana Miranda CORE CUTTER AND REAMER-PUDDLER HELPER Work Phone: [facility] 10-26-2022 20:18-0400 Body height 170.2 cm Mary Lamport PA-C Work Phone: [facility] 10-26-2022 20:18-0400 Body mass index (BMI) [Ratio] 38.01 kg/m2 Mary Lamport PA-C Work Phone: [facility] 10-26-2022 20:18-0400 Body temperature 98.6 [degF] Mary Lamport PA-C Work Phone: [facility] 10-26-2022 20:18-0400 Body weight 110.09 kg Mary Lamport PA-C Work Phone: [facility] 10-26-2022 20:18-0400 Diastolic blood pressure 75 mm[Hg] Mary Lamport PA-C Work Phone: [facility] 10-26-2022 20:18-0400 Heart rate 74 /min Mary Lamport PA-C Work Phone: [facility] 10-26-2022 20:18-0400 Respiratory rate 18 /min Mary Lamport PA-C Work Phone: [facility] 10-26-2022 20:18-0400 SaO2% (BldA) [Mass fraction] 93 % Mary Lamport PA-C Work Phone: [facility] 10-26-2022 20:18-0400 Systolic blood pressure 122 mm[Hg] Mary Lamport PA-C Work Phone: [facility] 10-24-2022 07:18-0400 Body height 170.2 cm Maico Hernadez MD Work Phone: [facility] 10-24-2022 07:16-0400 Body temperature 97.9 [degF] Maico Hernadez MD Work Phone: [facility] 10-24-2022 07:16-0400 Diastolic blood pressure 67 mm[Hg] Maico Hernadez MD Work Phone: [facility] 10-24-2022 07:16-0400 Heart rate 67 /min Maico Hernadez MD Work Phone: [facility] 10-24-2022 07:16-0400 Respiratory rate 18 /min Maico Hernadez MD Work Phone: [facility] 10-24-2022 07:16-0400 SaO2% (BldA) [Mass fraction] 99 % Maico Hernadez MD Work Phone: [facility] 10-24-2022 07:16-0400 Systolic blood pressure 140 mm[Hg] Maico Hernadez MD Work Phone: [facility] 09-02-2022 12:57-0500 Body mass index (BMI) [Ratio] 36.59 kg/m2 Jasvir Vilchis PUDDLER HELPER Work Phone: [facility] 09-02-2022 12:57-0500 Body temperature 99.61 [degF] Jasvir Deng PUDDLER HELPER Work Phone: [facility] 09-02-2022 12:57-0500 Body weight 105.96 kg Jasvir Deng PUDDLER HELPER Work Phone: [facility] 09-02-2022 12:57-0500 Diastolic blood pressure 72 mm[Hg] Jasvir Vilchis PUDDLER HELPER Work Phone: [facility] 09-02-2022 12:57-0500 Heart rate 86 /min Jasvir Vilchis PUDDLER HELPER Work Phone: [facility] 09-02-2022 12:57-0500 Respiratory rate 16 /min Jasvir Vilchis PUDDLER HELPER Work Phone: [facility] 09-02-2022 12:57-0500 SaO2% (BldA) [Mass fraction] 96 % Jasvir Vilchis PUDDLER HELPER Work Phone: [facility] 09-02-2022 12:57-0500 Systolic blood pressure 114 mm[Hg] Jasvir Vilchis CNP Work Phone: [facility] 08-30-2022 10:32-0500 Body height 170.2 cm Jasvir Vilchis CNP Work Phone: [facility] 08-30-2022 10:32-0500 Body mass index (BMI) [Ratio] 37.12 kg/m2 Jasvir Vilchis CNP Work Phone: [facility] 08-30-2022 10:32-0500 Body temperature 98.2 [degF] Jasvir Vilchis CNP Work Phone: [facility] 08-30-2022 10:32-0500 Body weight 107.5 kg Jasvir Vilchis CNP Work Phone: [facility] 08-30-2022 10:32-0500 Diastolic blood pressure 75 mm[Hg] Jasvir Vilchis CNP Work Phone: [facility] 08-30-2022 10:32-0500 Heart rate 92 /min Jasvir Vilchis CNP Work Phone: [facility] 08-30-2022 10:32-0500 Respiratory rate 16 /min Jasvir Vilchis CNP Work Phone: [facility] 08-30-2022 10:32-0500 SaO2% (BldA) [Mass fraction] 96 % Jasvir Vilchis CNP Work Phone: [facility] 08-30-2022 10:32-0500 Systolic blood pressure 113 mm[Hg] Jasvir Vilchis CNP Work Phone: [facility] 04-21-2022 10:51-0400 Body height 170.2 cm Raheem Archuleta MD Work Phone: [facility] 04-21-2022 10:50-0400 Body temperature 98.01 [degF] Raheem Archuleta MD Work Phone: [facility] 04-21-2022 10:50-0400 Diastolic blood pressure 77 mm[Hg] Raheem Archuleta MD Work Phone: [facility] 04-21-2022 10:50-0400 Heart rate 67 /min Raheem Archuleta MD Work Phone: [facility] [employer] [facility] 04-21-2022 10:50-0400 Respiratory rate 16 /min Raheem Archuleta MD Work Phone: [facility] 04-21-2022 10:50-0400 SaO2% (BldA) [Mass fraction] 97 % Raheem Archuleta MD Work Phone: [facility] 04-21-2022 10:50-0400 Systolic blood pressure 140 mm[Hg] Raheem Archuleta MD Work Phone: [facility] [employer] [facility] 03-02-2022 14:25-0400 Body height 170.2 cm Mariana Trubachik CORE CUTTER AND REAMER-PUDDLER HELPER Work Phone: [facility] [employer] [facility] 03-02-2022 14:25-0400 Body mass index (BMI) [Ratio] 35.15 kg/m2 Mariana Trubachik CORE CUTTER AND REAMER-PUDDLER HELPER Work Phone: [facility] [employer] [facility] 03-02-2022 14:25-0400 Body temperature 98.1 [degF] Mariana Trubachik CORE CUTTER AND REAMER-PUDDLER HELPER Work Phone: [employer] [facility] 03-02-2022 14:25-0400 Body weight 101.79 kg Mariana Trubachik CORE CUTTER AND REAMER-PUDDLER HELPER Work Phone: [employer] [facility] 03-02-2022 14:25-0400 Diastolic blood pressure 68 mm[Hg] Mariana Trubachik CORE CUTTER AND REAMER-PUDDLER HELPER Work Phone: [email or web address] [facility] 03-02-2022 14:25-0400 Heart rate 73 /min Mariana Trubachik CORE CUTTER AND REAMER-PUDDLER HELPER Work Phone: [email or web address] [facility] 03-02-2022 14:25-0400 Respiratory rate 18 /min Mariana Trubachik CORE CUTTER AND REAMER-PUDDLER HELPER Work Phone: [email or web address] [facility] 03-02-2022 14:25-0400 SaO2% (BldA) [Mass fraction] 97 % Mariana Trubachik CORE CUTTER AND REAMER-PUDDLER HELPER Work Phone: [email or web address] [facility] 03-02-2022 14:25-0400 Systolic blood pressure 130 mm[Hg] Mariana Miranda CORE CUTTER AND REAMER-PUDDLER HELPER Work Phone: [email or web address] [facility] 01-08-2022 08:20-0400 Body height 170.2 cm Mariana Miranda CORE CUTTER AND REAMER-PUDDLER HELPER Work Phone: [email or web address] [facility] 01-08-2022 08:20-0400 Body mass index (BMI) [Ratio] 34.64 kg/m2 Mariana Miranda CORE CUTTER AND REAMER-PUDDLER HELPER Work Phone: [email or web address] [facility] 01-08-2022 08:20-0400 Body temperature 98.01 [degF] Mariana Miranda CORE CUTTER AND REAMER-PUDDLER HELPER Work Phone: [email or web address] [facility] 01-08-2022 08:20-0400 Body weight 100.34 kg Mariana Healyk CORE CUTTER AND REAMER-PUDDLER HELPER Work Phone: [email or web address] [facility] 01-08-2022 08:20-0400 Diastolic blood pressure 80 mm[Hg] Mariana Chapaubachik CORE CUTTER AND REAMER-PUDDLER HELPER Work Phone: [email or web address] [facility] 01-08-2022 08:20-0400 Heart rate 62 /min Mariana Healyk CORE CUTTER AND REAMER-PUDDLER HELPER Work Phone: [employer] 01-08-2022 08:20-0400 Respiratory rate 18 /min Mariana Healyk CORE CUTTER AND REAMER-PUDDLER HELPER Work Phone: [email or web address] [facility] 01-08-2022 08:20-0400 SaO2% (BldA) [Mass fraction] 97 % Mariana Healyk CORE CUTTER AND REAMER-PUDDLER HELPER Work Phone: [email or web address] [facility] 01-08-2022 08:20-0400 Systolic blood pressure 122 mm[Hg] Mariana Miranda CORE CUTTER AND REAMER-PUDDLER HELPER Work Phone: [email or web address] [facility] 01-04-2022 11:00-0400 Body height 170.2 cm Jennifer Marrufo DO Work Phone: [facility] 01-04-2022 11:00-0400 Body mass index (BMI) [Ratio] 33.8 kg/m2 Jennifer Marrufo DO Work Phone: [facility] 01-04-2022 11:00-0400 Body temperature 98.1 [degF] Jennifer Marrufo DO Work Phone: [facility] 01-04-2022 11:00-0400 Body weight 97.89 kg Jennifer Marrufo DO Work Phone: [facility] 01-04-2022 11:00-0400 Diastolic blood pressure 74 mm[Hg] Jennifer Marrufo DO Work Phone: [facility] 01-04-2022 11:00-0400 Heart rate 54 /min Jennifer Marrufo DO Work Phone: [facility] 01-04-2022 11:00-0400 Respiratory rate 20 /min Jennifer Marrufo DO Work Phone: [facility] 01-04-2022 11:00-0400 SaO2% (BldA) [Mass fraction] 97 % Jennifer Marrufo DO Work Phone: [facility] 01-04-2022 11:00-0400 Systolic blood pressure 134 mm[Hg] Jennifer Marrufo DO Work Phone: [facility] 11-30-2021 11:13-0400 Body height 170.2 cm Karon Howard MD Work Phone: [facility] 11-30-2021 11:13-0400 Body mass index (BMI) [Ratio] 33.47 kg/m2 Karon Howard MD Work Phone: [facility] 11-30-2021 11:13-0400 Body temperature 98.2 [degF] Karon Howard MD Work Phone: [facility] 11-30-2021 11:13-0400 Body weight 96.93 kg Karon Howard MD Work Phone: [facility] 11-30-2021 11:13-0400 Diastolic blood pressure 75 mm[Hg] Karon Howard MD Work Phone: [facility] 11-30-2021 11:13-0400 Heart rate 51 /min Karon Howard MD Work Phone: [facility] 11-30-2021 11:13-0400 Respiratory rate 16 /min Karon Howard MD Work Phone: [facility] 11-30-2021 11:13-0400 SaO2% (BldA) [Mass fraction] 96 % Karon Howard MD Work Phone: [facility] 11-30-2021 11:13-0400 Systolic blood pressure 131 mm[Hg] Karon Howard MD Work Phone: [facility] 10-26-2021 09:13-0400 Body mass index (BMI) [Ratio] 31.94 kg/m2 Suzie Giraldo MD, PhD Work Phone: [facility] 10-26-2021 09:13-0400 Body temperature 97.2 [degF] Suzie Giraldo MD, PhD Work Phone: [facility] 10-26-2021 09:13-0400 Body weight 92.49 kg Suzie Giraldo MD, PhD Work Phone: [facility] 10-26-2021 09:13-0400 Diastolic blood pressure 72 mm[Hg] Suzie Giraldo MD, PhD Work Phone: [facility] 10-26-2021 09:13-0400 Heart rate 59 /min Suzie Giraldo MD, PhD Work Phone: [facility] 10-26-2021 09:13-0400 Systolic blood pressure 128 mm[Hg] Suzie Giraldo MD, PhD Work Phone: [facility] 10-09-2021 13:11-0400 Body height 170.2 cm Mariana Miranda CORE CUTTER AND REAMER-PUDDLER HELPER Work Phone: [facility] 10-09-2021 13:11-0400 Body mass index (BMI) [Ratio] 32.62 kg/m2 Mariana Chapaubachik CORE CUTTER AND REAMER-PUDDLER HELPER Work Phone: [facility] 10-09-2021 13:11-0400 Body temperature 97.7 [degF] Mariana Chapaubachik CORE CUTTER AND REAMER-PUDDLER HELPER Work Phone: [facility] 10-09-2021 13:11-0400 Body weight 94.46 kg Mariana Chapaubachik CORE CUTTER AND REAMER-PUDDLER HELPER Work Phone: [facility] 10-09-2021 13:11-0400 Diastolic blood pressure 70 mm[Hg] Mariana Chapaubachik CORE CUTTER AND REAMER-PUDDLER HELPER Work Phone: [employer] [facility] 10-09-2021 13:11-0400 Heart rate 60 /min Mariana Chapaubachik CORE CUTTER AND REAMER-PUDDLER HELPER Work Phone: [facility] 10-09-2021 13:11-0400 Respiratory rate 18 /min Mariana Chapaubachik CORE CUTTER AND REAMER-PUDDLER HELPER Work Phone: [employer] [facility] 10-09-2021 13:11-0400 SaO2% (BldA) [Mass fraction] 98 % Mariana Chapaubachik CORE CUTTER AND REAMER-PUDDLER HELPER Work Phone: [email or web address] [facility] 10-09-2021 13:11-0400 Systolic blood pressure 126 mm[Hg] Mariana Chapaubachik CORE CUTTER AND REAMER-PUDDLER HELPER Work Phone: [facility] 09-18-2021 09:38-0400 Body mass index (BMI) [Ratio] 32.26 kg/m2 Andrew Trinidad CORE CUTTER AND REAMER-PUDDLER HELPER Work Phone: [facility] 09-18-2021 09:38-0400 Body temperature 97.7 [degF] Andrew Trinidad CORE CUTTER AND REAMER-PUDDLER HELPER Work Phone: [facility] 09-18-2021 09:38-0400 Body weight 93.44 kg Andrew Trinidad CORE CUTTER AND REAMER-PUDDLER HELPER Work Phone: [facility] 09-18-2021 09:38-0400 Diastolic blood pressure 76 mm[Hg] Andrew Trinidad CORE CUTTER AND REAMER-PUDDLER HELPER Work Phone: [facility] 09-18-2021 09:38-0400 Heart rate 56 /min Andrew Trinidad CORE CUTTER AND REAMER-PUDDLER HELPER Work Phone: [facility] 09-18-2021 09:38-0400 Systolic blood pressure 133 mm[Hg] Andrew Trinidad CORE CUTTER AND REAMER-PUDDLER HELPER Work Phone: [facility] 05-15-2018 15:08-0500 BMI (Body Mass Index) 39.63 kg/m2 [facility] Work Phone: 05-15-2018 15:08-0500 Body Temperature 97.11 [degF] [facility] Work Phone: 05-15-2018 15:08-0500 Height 170.2 cm [facility] Work Phone: 05-15-2018 15:08-0500 Weight 114.76 kg [facility] Work Phone: Encounters Encounter Date Encounter Type Care Provider Facility Start: 02-24-2024 End: 02-24-2024 ambulatory [facility] Work Phone: Start: 02-24-2024 End: 02-24-2024 Patient encounter procedure Pending Sale To [facility] Work Phone: Start: 02-20-2024 End: 02-20-2024 Patient encounter procedure Griselda Moore MD Work Phone: Bariatric Surgery [facility] Comment on above: Encounter for weight loss counseling (Primary Dx) Start: 02-20-2024 End: 02-20-2024 Office outpatient visit 15 minutes Griselda Moore MD Work Phone: Bariatric Surgery [facility] Comment on above: Gastroesophageal ref lux disease without esophagitis (Primary Dx); Morbid obesity Start: 02-20-2024 ambulatory SELF SELF Facility:[facility] Start: 02-07-2024 ambulatory SUSHILA [place] ty:[facility] Start: 01-15-2024 End: 01-15-2024 Office outpatient visit 25 minutes Sushila Saravia MD Work Phone: [facility] Comment on above: Morbid obesity (Prim gina Dx); Acute right ankle pain; Gastroesophageal reflux disease without esophagitis; Benign hypertension; DEMI (obstructive sleep apnea) Start: 01-15-2024 ambulatory [facility]F [facility] Start: 12-31-2023 [facility] Start: 12-25-2023 End: 12-25-2023 Office consultation new/estab patient 60 min Cait Richardson MD Work Phone: [facility] [place] Comment on above: Obstructive sleep ap hu (adult) (pediatric) [G47.33] (Primary Dx) Start: 12-25-2023 ambulatory SELF SELF Facility:[facility] Start: 12-04-2023 End: 12-04-2023 Office outpatient visit 25 minutes Sushila Saravia MD Work Phone: [facility] Comment on above: Gastroesophageal ref lux disease without esophagitis (Primary Dx); Seborrheic dermatitis; Tinea pedis, unspecified laterality; Morbid obesity; Right ear impacted cerumen Start: 12-04-2023 ambulatory SELF SELF [facility] Start: 11-21-2023 ambulatory [facility] Start: 11-20-2023 ambulatory CATY PENN [facility] Start: 11-15-2023 End: 11-15-2023 Patient encounter procedure [facility] Sleep Therapist Sleep Medicine [facility] Comment on above: S/P laparoscopic sle pearl gastrectomy; History of obstructive sleep apnea Obstructive sleep ap hu (adult) (pediatric) [G47.33] (Primary Dx); S/P laparoscopic sleeve gastrectomy; History of obstructive sleep apnea Start: 11-15-2023 ambulatory MARIANA TRUBACHIK Facilit y:[facility] Start: 11-08-2023 End: 11-08-2023 Documentation procedure [facility] Start: 09-30-2023 ambulatory SELF SELF Facility:[facility] Start: 09-30-2023 Encounter for other preprocedural examination CATY PENN Facility:[facility] Start: 09-30-2023 End: 09-30-2023 Office outpatient visit 40 minutes Caty Penn CORE CUTTER AND REAMER-PUDDLER HELPER Work Phone: Bariatric Surgery [facility] Comment on above: Gastroesophageal ref [...] End: 09-30-2023 Patient encounter status Caty Penn CORE CUTTER AND REAMER-PUDDLER HELPER Work Phone: [facility] Start: 09-30-2023 ambulatory MARIANA TRUBACHIK Facilit y:[facility] Start: 08-01-2023 ambulatory MARIANA TRUBACHIK Facilit y:[facility] Start: 07-29-2023 ambulatory MARIANA TRUBACHIK Facilit y:[facility] Start: 2023 ambulatory MARIANA TRUBACHIK Facilit y:[facility] Start: 2023 End: 2023 Subsequent hospital visit by physician Schuyler Sparks MD Work Phone: [facility] Start: 05-28-2023 End: 05-28-2023 Office outpatient visit 15 minutes Aliza Davis MD Work Phone: [facility] Comment on above: Lentigines (Primary Dx); Skin cancer screening; Actinic skin damage; SK (seborrheic keratosis); [place] angioma; Melanocytic nevus of lower extremity including hip, unspecified laterality; Melanocytic nevi of trunk; Melanocytic nevus of upper extremity, unspecified laterality; Neoplasm of uncertain behavior of skin Start: 05-28-2023 [facility] Start: 05-06-2023 [facility] Start: 04-30-2023 [facility] Start: 04-19-2023 End: 04-19-2023 Subsequent hospital visit by physician Ilene Diego DPM Work Phone: [facility] Comment on above: Arrived Start: 04-19-2023 End: 04-19-2023 Office outpatient visit 25 minutes Ilene Diego DPM Work Phone: [facility] Comment on above: Right foot pain (Alesia david Dx); Sprain of right ankle, unspecified ligament, initial encounter Start: 04-19-2023 [facility] Start: 04-16-2023 End: 04-16-2023 Office outpatient visit 25 minutes Mariana Tone Miranda CORE CUTTER AND REAMER-PUDDLER HELPER Work Phone: [facility] Comment on above: Acute right ankle pa in (Primary Dx); Sprain of right medial ankle joint, initial encounter Start: 04-16-2023 [facility] Start: 03-10-2023 End: 03-11-2023 Emergency department patient visit Jackson Shaffer MD Work Phone: [facility] Start: 12-10-2022 End: 12-10-2022 Office outpatient visit 25 minutes Caty Penn CORE CUTTER AND REAMER-PUDDLER HELPER Work Phone: Bariatric Surgery [facility] Comment on above: Class 2 severe obesi ty with serious comorbidity and body mass index (BMI) of 36.0 to 36.9 in adult, unspecified obesity type (Primary Dx); Gastroesophageal reflux disease without esophagitis; S/P laparoscopic sleeve gastrectomy Start: 10-29-2022 End: 10-29-2022 Office outpatient visit 25 minutes Mariana Miranda CORE CUTTER AND REAMER-PUDDLER HELPER Work Phone: [facility] Comment on above: Dog bite, initial en counter (Primary Dx); Encounter for post surgical wound check Start: 10-26-2022 End: 10-30-2022 [facility] Start: 10-26-2022 End: 10-26-2022 Office outpatient visit 15 minutes Mary Moreira PA-C Work Phone: [facility] Comment on above: Dog bite of right brooks nd with infection, initial encounter (Primary Dx) Start: 10-24-2022 End: 10-24-2022 Emergency department patient visit [facility]ico [facility]adez MD [facility] Start: 09-02-2022 End: 09-02-2022 ambulatory JASVIR [facility] Start: 09-02-2022 End: 09-02-2022 Office outpatient visit 15 minutes Jasvir Vilchis PUDDLER HELPER Work Phone: [facility] Comment on above: Sinusitis, unspecifi ed chronicity, unspecified location (Primary Dx); Acute conjunctivitis of both eyes, unspecified acute conjunctivitis type Start: 08-30-2022 End: 08-30-2022 ambulatory JASVIR [facility] Start: 08-30-2022 End: 08-30-2022 Office outpatient visit 15 minutes Jasvir Vilchis PUDDLER HELPER Work Phone: [facility] Comment on above: Viral URI (Primary D x) Start: 04-21-2022 End: 04-21-2022 Emergency department patient visit Raheem Archuleta MD Work Phone: [facility] Start: 04-20-2022 End: 04-20-2022 ambulatory CHARLEY Fox [facility] Start: 03-02-2022 End: 03-02-2022 Office outpatient visit 25 minutes Mariana Tone Rayn CORE CUTTER AND REAMER-PUDDLER HELPER Work Phone: [employer] [facility] Comment on above: Low testosterone in male (Primary Dx); Acute bacterial conjunctivitis of right eye Start: 01-08-2022 End: 01-08-2022 Office outpatient visit 15 minutes Mariana A Rayn CORE CUTTER AND REAMER-PUDDLER HELPER Work Phone: [facility] Comment on above: Erectile dysfunction , unspecified erectile dysfunction type (Primary Dx); Gastroesophageal reflux disease without esophagitis; Environmental and seasonal allergies Start: 01-04-2022 End: 01-04-2022 Office consultation new/estab patient 60 min Jennifer Marrufo DO Work Phone: Pre-Procedure Evaluation and Assessment [facility] Comment on above: Preop exam for inter nal medicine (Primary Dx); Polycystic kidney disease; -donor 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/25/2016; Immunosuppression; S/P laparoscopic sleeve gastrectomy; BPH with obstruction/lower urinary tract symptoms Start: 01-04-2022 End: 01-04-2022 Patient encounter status Jennifer Marrufo DO Work Phone: Pre-Procedure Evaluation and Assessment [facility] Start: 11-30-2021 End: 11-30-2021 Office outpatient new 45 minutes Karon Howard MD Work Phone: [facility] Comment on above: Polycystic kidney di sease (Primary Dx) Start: 10-26-2021 End: 10-26-2021 Office outpatient new 45 minutes Suzie Giraldo MD, PhD Work Phone: [facility] Comment on above: Kidney replaced by t ransplant (Primary Dx); Long-term use of immunosuppressant medication; Aftercare following organ transplant; Abnormal blood chemistry; Immunosuppressed status; High risk medication use; Other general symptoms and signs Start: 10-12-2021 End: 10-12-2021 Subsequent hospital visit by physician Mariana Miranda APRN-PUDDLER HELPER Work Phone: [facility] Comment on above: Arrived Start: 10-09-2021 End: 10-09-2021 Office outpatient visit 25 minutes Mariana Miranda APRN-PUDDLER HELPER Work Phone: [facility] Comment on above: Polycystic kidney di sease (Primary Dx); Acute bilateral low back pain without sciatica; Erectile dysfunction, unspecified erectile dysfunction type; -donor 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/25/2016; Lack of sexual desire Start: 09-18-2021 End: 09-18-2021 Office outpatient visit 15 minutes Andrew Trinidad CORE CUTTER AND REAMER-PUDDLER HELPER Work Phone: [facility] Comment on above: Kidney replaced by t ransplant (Primary Dx); Abnormal blood chemistry; Immunosuppressed status; Aftercare following organ transplant; High risk medication use Start: 04-02-2019 End: 07-07-2019 Patient encounter status Andrew Trinidad CORE CUTTER AND REAMER-PUDDLER HELPER Work Phone: [facility] Start: 04-02-2019 End: 07-07-2019 Preprocedural examination done Andrew Trinidad APRN-PUDDLER HELPER Work Phone: [facility] Start: 08-06-2018 End: 08-06-2018 Patient encounter procedure Mariana Miranda Facility:[facility] Start: 06-18-2018 Patient encounter procedure [facility] Start: 05-27-2018 End: 05-27-2018 Patient encounter procedure Jorge Nirav Work Phone: [facility] Comment on above: Arrived Start: 05-20-2018 End: 05-20-2018 Patient encounter Maggi Mcdaniels [facility] Start: 05-15-2018 Patient encounter procedure [facility] Start: 05-15-2018 End: 05-15-2018 Office outpatient visit 25 minutes Jorge Ireland Work Phone: [facility] Comment on above: Osteoarthritis of ri ght knee, unspecified osteoarthritis type (Primary Dx); Chronic pain of right knee Start: 05-15-2018 End: 05-15-2018 Patient encounter procedure Jorge Ireland Work Phone: [facility] Start: 01-29-2018 Patient encounter procedure TUCKER GOLDMAN [facility] Start: 01-22-2018 Patient encounter procedure ROSY Cid [facility] Start: 01-15-2018 Patient encounter procedure ROSY Cid [facility] Start: 01-28-2017 End: 01-29-2017 [facility] Start: 01-21-2017 End: 01-22-2017 [facility] Start: 01-14-2017 End: 01-15-2017 Ambulatory PROVIDER UNKNOWN [facility] Start: 01-07-2017 End: 01-08-2017 Ambulatory PROVIDER UNKNOWN [facility] Start: 12-31-2016 End: 01-01-2017 Ambulatory PROVIDER UNKNOWN [facility] Procedures Date Procedure Procedure Detail Performing Clinician Start: 12-31-2023 Follow-up visit Follow-up CATY VERONICA Start: 12-04-2023 Removal impacted cerumen instrumentation elielat Sushila Saravia MD Work Phone: Start: 2023 INTERVENTIONAL UPPER ENDOSCOPY Caty Penn CORE CUTTER AND REAMER-PUDDLER HELPER Work Phone: Start: 03-10-2023 End: 03-10-2023 Radex ankle complete minimum 3 views Jackson Shaffer MD Work Phone: Start: 10-16-2022 Lipid 1996 panel - Serum or Plasma Maico Hernadez MD Work Phone: Start: 01-04-2022 Antibody screen Jennifer Mansfieldner DO Work Phone: Start: 01-04-2022 Blood typing serologic abo Jennifer R Skin ner DO Work Phone: Start: 01-04-2022 PSA screening Charley Mccracken MD, P hD Work Phone: Start: 10-12-2021 Radex spine lumbosacral minimum 4 views Mariana Miranda CORE CUTTER AND REAMER-PUDDLER HELPER Work Phone: Start: 10-12-2021 Us retroperitoneal real time w/image complete Mariana Healyk CORE CUTTER AND REAMER-PUDDLER HELPER Work Phone: Start: 10-09-2021 Urnls dip stick/tablet rgnt auto w/o microscopy Mariana Harkinschik CORE CUTTER AND REAMER-PUDDLER HELPER Work Phone: Start: 09-25-2021 Lipid 1996 panel - Serum or Plasma Mariana Miranda CORE CUTTER AND REAMER-PUDDLER HELPER Work Phone: Start: 05-01-2021 Lipid 1996 panel - Serum or Plasma Andrew Amos CORE CUTTER AND REAMER-PUDDLER HELPER Work Phone: Start: 08-12-2019 History of renal transplant History of renal transplant Andrew Trinidad CORE CUTTER AND REAMER-PUDDLER HELPER Work Phone: Start: 06-18-2018 Follow-up visit Follow-up JORGE IRELAND Start: 05-27-2018 End: 05-27-2018 CBC, PLATELETS PANEL, MANUAL ENTER Other Other Start: 05-27-2018 End: 05-27-2018 NA,K,CL,CO2,BUN,CREA,GLUC, MANUAL ENTER Other Other Start: 05-27-2018 End: 05-27-2018 MRI of knee Jorge Ireland Work Phone: Start: 04-08-2018 Lipid 1996 panel - Serum or Plasma Jorge Ireland Start: 09-25-2016 History of renal transplant -donor 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/25/2016 Andrew Trinidad CORE CUTTER AND REAMER-PUDDLER HELPER Work Phone: History of renal transplant Kidney replaced by transplant Andrew Trinidad CORE CUTTER AND REAMER-PUDDLER HELPER Work Phone: History of renal transplant -donor 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/25/2016 Mariana Miranda CORE CUTTER AND REAMER-PUDDLER HELPER Work Phone: History of renal transplant -donor 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/25/2016 Mariana Chapaubachik CORE CUTTER AND REAMER-PUDDLER HELPER Work Phone: History of renal transplant Kidney replaced by transplant Suzie Giraldo MD, PhD Work Phone: History of renal transplant -donor 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/25/2016 Jennifer Stanley Marrufo DO Work Phone: History of renal transplant History of kidney transplant Plan of Treatment Date Care Activity Detail Author Start: 10-17-2027 Lipid panel LIPID SCREENING [facility] Start: 09-25-2026 Fasting lipid profile LIPID SCREENING [facility] Start: 09-25-2026 Lipid panel LIPID SCREENING [facility] Start: 07-10-2026 PNEUMOCOCCAL VACCINE SERIES (3 - PPSV23 if available, else PCV20) PNEUMOCOCCAL VACCINE SERIES (3 - PPSV23 if available, else PCV20) [facility] Start: 07-10-2026 PNEUMOCOCCAL VACCINE SERIES (3 - PPSV23 or PCV20) PNEUMOCOCCAL VACCINE SERIES (3 - PPSV23 or PCV20) [facility] Start: 07-10-2026 PNEUMOCOCCAL VACCINE SERIES (3 of 3 - PPSV23 or PCV20) PNEUMOCOCCAL VACCINE SERIES (3 of 3 - PPSV23 or PCV20) [facility] Start: 07-10-2026 PNEUMOCOCCAL VACCINE SERIES (3 of 4 - PPSV23) PNEUMOCOCCAL VACCINE SERIES (3 of 4 - PPSV23) [facility] Start: 07-10-2026 Pneumococcal Vaccine: Ped or At-Risk (3 - PPSV23 if available, else PCV20) Pneumococcal Vaccine: Ped or At-Risk (3 - PPSV23 if available, else PCV20) [facility] Start: 05-01-2026 Fasting lipid profile LIPID SCREENING [facility] Start: 01-04-2026 Tetanus vaccination [facility] Start: 06-19-2024 End: 06-19-2024 Patient encounter procedure 06/19/2024 8:00 AM EST Office Visit Sleep Medicine Outpatient Care [address] [place] [address] Anne-Marie Smith, CORE CUTTER AND REAMER-PUDDLER HELPER [address] [place] [address] [facility] Start: 06-02-2024 End: 06-02-2024 Patient encounter procedure 06/02/2024 1:30 PM EST Office Visit [facility] [address] [place] [address] Aliza Davis MD [address] [place] [address] [facility] Start: 05-26-2024 End: 05-26-2024 Patient encounter procedure 05/26/2024 11:15 AM EST Office Visit [facility] [address] [place] [address] Aliza Davis MD [address] [place] [address] [facility] Start: 04-16-2024 Prostate specific antigen measurement PROSTATE CANCER SCREENING DISCUSSION [facility] Start: 04-16-2024 Screening for malignant neoplasm of colon COLORECTAL CANCER SCREENING DISCUSSION [facility] Start: 04-16-2024 End: 04-16-2024 Patient encounter procedure 04/16/2024 9:00 AM EDT Office Visit [facility] [address] [place] [address] Sushila Saravia MD [address] [place] [address] [facility] Start: 03-23-2024 End: 03-23-2024 Esophagogastroduodenoscopy transoral diagnostic EGD DIAGNOSTIC Gastroesophageal reflux disease without esophagitis Morbid obesity 03/23/2024 10:20 AM EDT [facility] Start: 03-23-2024 End: 03-23-2024 Evaluation and management of inpatient MARY [facility] Comment on above: Gastroesophageal reflux disease without esophagitis CONVERSION SLEEVE TO REBEKA-EN-Y GASTRIC BYPASS LAPAROSCOPIC Start: 03-23-2024 End: 03-23-2024 Unlisted laparoscopic procedure stomach CONVERSION SLEEVE TO REBEKA-EN-Y GASTRIC BYPASS LAPAROSCOPIC Gastroesophageal reflux disease without esophagitis Morbid obesity 03/23/2024 10:20 AM EDT [facility] Start: 03-09-2024 End: 03-09-2024 ambulatory 03/09/2024 11:30 AM EDT Pre-Operative Nurse Assessment Telehealth Pre Procedure Preparation [address] [place] [address] Trisha Bass, TABATHA Telehealth Pre Procedure Preparation Start: 03-01-2024 Influenza vaccination INFLUENZA VACCINE (#1) [facility] Start: 02-25-2024 End: 02-25-2024 Patient encounter procedure 02/25/2024 10:30 AM EDT Pre-Operative Assessment Pre-Procedure Evaluation and Assessment [facility] [address] [place] [address] [place] [phone] Sulma Plata APRN-PUDDLER HELPER [address] [facility] [address] [place] [phone] Pre-Procedure Evaluation and Assessment [facility] Start: 02-07-2024 End: 02-07-2024 Telemedicine consultation with patient 02/07/2024 9:00 AM EDT Telemedicine Sleep Medicine Outpatient Care [address] [place], [place] [id number] Anne-Marie Smith CORE CUTTER AND REAMER-PUDDLER HELPER [address] [place], [place] [phone] [facility] [place] Start: 01-15-2024 End: 01-14-2025 XR Ankle - right 3 Views XR ANKLE RIGHT 3+ VIEWS Imaging Routine Acute right ankle pain Expected: 01/15/2024, Expires: 01/14/2025 [facility] Comment on above: Expected: 01/15/2024, Expires: Start: 01-15-2024 End: 01-15-2024 Patient encounter procedure 01/15/2024 11:00 AM EDT Office Visit [facility] [address] [place] [address] Sushila Saravia MD [address] [place] [address] [facility] Start: 01-08-2024 End: 01-08-2024 Patient encounter procedure 01/08/2024 11:00 AM EDT Office Visit Sleep Medicine Outpatient Care [place] [id number] [address] Cait Richardson MD [address] [place] [id number] [facility] [place] Start: 12-31-2023 End: 12-31-2023 Telemedicine consultation with patient 12/31/2023 1:30 PM EDT Telemedicine Bariatric Surgery [facility] [address] [place] [address] [place] [phone] Caty Penn, CORE CUTTER AND REAMER-PUDDLER HELPER [address] [facility] [address] [place] [address] Bariatric Surgery [facility] Start: 12-04-2023 End: 12-04-2023 Patient encounter procedure 12/04/2023 11:00 AM EDT Office Visit [facility] [address] [place] [address] Sushila Saravia MD [address] [place] [address] [facility] Start: 10-01-2023 End: 09-29-[address]24 [address]night [address] PL[address] HOME SLEEP STUDY DE - OFFICE PERFORMED Routine S/P laparoscopic sleeve gastrectomy History of obstructive sleep apnea Expected: 10/01/2023, Expires: 09/29/2024 [facility] Comment on above: Expected: 10/01/2023, Expires: Start: 09-30-2023 End: 09-29-2024 NICOTINE AND METABOLITES,SERUM [facility] Comment on above: Expected: 09/30/2023, Expires: Start: 09-30-2023 End: 09-30-2024 VITAMIN A [facility] Comment on above: Expected: 09/30/2023, Expires: Start: 09-30-2023 End: 09-30-2024 VITAMIN B1 [facility] Comment on above: Expected: 09/30/2023, Expires: Start: 07-08-2023 COVID-19 VACCINE () COVID-19 VACCINE () [facility] Start: 06-26-2023 COVID-19 VACCINE () COVID-19 VACCINE () [facility] Comment on above: Postponed from 03/01/2023 (patient prefe rence) Start: 06-26-2023 Zoster vaccine hzv live for subcutaneous use ZOSTER (SHINGLES) VACCINE (1 of 2) [facility] Comment on above: Postponed from 1986 (patient prefe rence) Start: 2023 End: 2023 Patient encounter procedure 2023 9:30 AM EST Appointment [facility] [address] [facility] [address] [place] [phone] Schuyler Sparks MD [address] [facility] [address] [place] [phone] [facility] Start: 05-28-2023 End: 05-28-2023 Patient encounter procedure 05/28/2023 11:00 AM EST Office Visit [facility] [address] [place] [address] Aliza Davis MD [address] [place] [address] [facility] Start: 05-10-2023 End: 05-10-2023 ambulatory 05/10/2023 9:20 AM EST Rehab Services Visit [facility] [address] [place] [address] Ilene Diego, DPM [address] [facility] [place] [address] Landen Vallejo PTA [facility] [place] Start: 05-08-2023 End: 05-08-2023 ambulatory 05/08/2023 9:20 AM EST Rehab Services Visit [facility] [address], [facility] Ilene Diego, DPM [address] [place] [address] Landen Vallejo PTA [facility] [place] Start: 05-06-2023 End: 05-06-2023 ambulatory 05/06/2023 9:20 AM EST Rehab Services Visit [facility] [place] [phone] Ilene Diego, DPM [address] [facility] Landen Vallejo PTA [facility] [place] Start: 05-03-2023 End: 05-03-2023 Patient encounter procedure 05/03/2023 1:00 PM EDT Appointment [facility] [address] [facility] [address] [place] [phone] Nahomy Santos MD [address] [facility] [address] [place] [address] [facility] Start: 04-19-2023 End: 04-19-2023 Patient encounter procedure 04/19/2023 10:30 AM EDT Office Visit [facility] [address] [place] [address] Ilene Diego, DPM [address] [place] [address] [facility] Start: 04-08-2023 Fasting lipid profile [facility] Work Phone: Start: 03-26-2023 End: 03-26-2023 Telemedicine consultation with patient 03/26/2023 3:00 PM EDT Telemedicine Bariatric Surgery [facility] [address] [place] [phone] Caty Penn, CORE CUTTER AND REAMER-PUDDLER HELPER [address] [facility] [address] [place] [phone] Bariatric Surgery [facility] Start: 03-01-2023 Influenza vaccination [facility] Start: 01-07-2023 End: 01-07-2023 Telemedicine consultation with patient 01/07/2023 12:30 PM EDT Telemedicine Bariatric Surgery [facility] [address] [place] [phone] Caty Penn, CORE CUTTER AND REAMER-PUDDLER HELPER [address] [facility] [address] [place] [phone] Bariatric Surgery [facility] Start: 01-04-2023 Prostate specific antigen measurement PROSTATE CANCER SCREENING DISCUSSION [facility] Start: 11-30-2022 End: 11-30-2022 Patient encounter procedure 11/30/2022 Office Visit Dermatology Aliza Davis MD [address] [place] [address] [facility] Start: 11-06-2022 End: 11-06-2022 Patient encounter procedure 11/06/2022 Office Visit Transplant Surgery Payal Mahoney, CORE CUTTER AND REAMER-PUDDLER HELPER [address] [place] [phone] [facility] Start: 11-05-2022 End: 11-05-2022 Telemedicine consultation with patient 11/05/2022 Telemedicine General Surgery Caty Penn, CORE CUTTER AND REAMER-PUDDLER HELPER [address] [place] [address] [place] [phone] Bariatric Surgery [facility] Start: 09-20-2022 End: 09-20-2022 Patient encounter procedure 09/20/2022 Office Visit Transplant Surgery Colin Hooper MBBS [address] [place] [address] [facility] Start: 07-17-2022 End: 07-17-2022 Patient encounter procedure 07/17/2022 Office Visit Family Medicine Mariana Miranda, CORE CUTTER AND REAMER-PUDDLER HELPER [address] [place] [address] [facility] Start: 05-31-2022 End: 05-31-2022 Patient encounter procedure [facility] Start: 03-30-2022 End: 03-02-2023 FREE TESTOSTERONE FREE TESTOSTERONE Lab Routine Low testosterone in male Expected: 03/30/2022, Expires: 03/02/2023 [facility] Comment on above: Expected: 03/30/2022, Expires: 3 Start: 03-30-2022 End: 03-02-2023 Testosterone [Mass/volume] in Serum or Plasma TESTOSTERONE Lab Routine Low testosterone in male Expected: 03/30/2022, Expires: 03/02/2023 [facility] Comment on above: Expected: 03/30/2022, Expires: 3 Start: 03-01-2022 Influenza vaccination [facility] Start: 02-08-2022 End: 02-08-2022 Patient encounter procedure 02/08/2022 Office Visit Urology Charley Mccracken MD, PhD [address] [place] [address] Division of [facility] at [facility] Start: 01-23-2022 End: 01-23-2022 Evaluation and management of inpatient [facility] Comment on above: Polycystic kidney disease NEPHRECTOMY OPEN Start: 01-23-2022 End: 01-23-2022 Nephrectomy w/prtl ureterect opn rib rescj compl NEPHRECTOMY OPEN Polycystic kidney disease 01/23/2022 7:15 AM EDT [facility] Start: 01-08-2022 End: 01-08-2022 Patient encounter procedure 01/08/2022 Office Visit Family [facility] Mariana Miranda, CORE CUTTER AND REAMER-PUDDLER HELPER [address] [place] [address] [facility] Start: 12-12-2021 Colonoscopy COLORECTAL CANCER SCREENING DISCUSSION [facility] Start: 12-12-2021 Prostate specific antigen measurement PROSTATE CANCER SCREENING DISCUSSION [facility] Start: 12-12-2021 Screening for malignant neoplasm of colon COLORECTAL CANCER SCREENING DISCUSSION [facility] Start: 12-08-2021 End: 12-08-2021 Admission to same day surgery center 12/08/2021 Surgery Endoscopy Griselda Moore MD [address] [address] EGD DIAGNOSTIC [facility] Comment on above: EGD DIAGNOSTIC Start: 12-08-2021 End: 12-08-2021 Esophagogastroduodenoscopy transoral diagnostic EGD DIAGNOSTIC Gastroesophageal reflux disease without esophagitis S/P laparoscopic sleeve gastrectomy 12/08/2021 9:30 AM EDT [facility] Start: 12-08-2021 Subsequent hospital visit by physician 12/08/2021 Hospital Encounter Endoscopy Griselda Moore MD [address] [address] Gastroesophageal reflux disease without esophagitis [facility] Comment on above: Gastroesophageal reflux disease without esophagitis Start: 11-30-2021 End: 11-30-2021 Patient encounter procedure 11/30/2021 Office Visit Urology Karon Howard MD [address] 1[address] Floor [place] [phone] Division [facility] Start: 10-09-2021 End: 10-09-2022 FREE TESTOSTERONE FREE TESTOSTERONE Lab Routine Erectile dysfunction, unspecified erectile dysfunction type Lack of sexual desire Expected: 10/09/2021, Expires: 10/09/2022 [facility] Comment on above: Expected: 10/09/2021, Expires: 3 Start: 10-09-2021 End: 10-09-2022 Testosterone [Mass/volume] in Serum or Plasma TESTOSTERONE Lab Routine Erectile dysfunction, unspecified erectile dysfunction type Lack of sexual desire Expected: 10/09/2021, Expires: 10/09/2022 [facility] Comment on above: Expected: 10/09/2021, Expires: 3 Start: 10-09-2021 End: 10-09-2022 US Kidney US RENAL Imaging Routine Polycystic kidney disease -donor 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/25/2016 Expected: 10/09/2021, Expires: 10/09/2022 [facility] Comment on above: Expected: 10/09/2021, Expires: 3 Start: 10-09-2021 End: 10-09-2022 XR Spine Lumbar and Sacrum 5 Views XR SPINE LUMBOSACRAL 5 VIEWS Imaging Routine Acute bilateral low back pain without sciatica Expected: 10/09/2021, Expires: 10/09/2022 [facility] Comment on above: Expected: 10/09/2021, Expires: 3 Start: 09-12-2021 COVID-19 VACCINE (3 - Booster for Jenna series) COVID-19 VACCINE (3 - Booster for Jenna series) [facility] Start: 09-12-2021 COVID-19 VACCINE (3 - Jenna risk series) COVID-19 VACCINE (3 - Jenna risk series) [facility] Start: 10-08-2020 COVID-19 VACCINE (2 - Jenna risk 3-dose series) COVID-19 VACCINE (2 - Jenna risk 3-dose series) [facility] Start: 10-08-2020 COVID-19 VACCINE (2 - Jenna risk series) COVID-19 VACCINE (2 - Jenna risk series) [facility] Start: 09-04-2018 End: 09-04-2018 Ambulatory 09/04/2018 Office Visit Transplant Surgery Colin Hooper, CORNEL [address] [place] [phone] [facility] Office Start: 08-01-2018 End: 08-01-2018 Ambulatory 08/01/2018 Office Visit Orthopaedics Tucker Goldman, JANICE-PUDDLER HELPER [address] [place] [phone] [facility] Start: 07-22-2018 Prostate specific antigen measurement PROSTATE CANCER SCREENING DISCUSSION [facility] Work Phone: Start: 05-27-2018 End: 05-27-2018 Ambulatory 05/27/2018 Appointment Magnetic Resonance Imaging Jorge Ireland MD [address] [place] [address] [phone] [facility] Start: 05-15-2018 Ambulatory 05/15/2018 Procedure Pass Orthopaedics [facility] Start: 03-01-2018 Influenza vaccination INFLUENZA VACCINE (#1) [facility] Work Phone: Start: 2017 Colonoscopy COLON CANCER SCREENING DISCUSSION [facility] Work Phone: Start: 2017 Protein mass conc COLON CANCER SCREENING DISCUSSION [facility] Work Phone: Start: 2017 Screening for malignant neoplasm of colon Flexible sigmoidoscopy [facility] Start: 2017 Zoster vaccine hzv live for subcutaneous use ZOSTER (SHINGLES) VACCINE (1 of 2) [facility] Start: 1986 Administration of herpes zoster vaccine Zoster Vaccines (1 of 2) [facility] Start: 1986 Hepatitis B vaccination HEP B VACCINE (1 of 3 - 19+ 3-dose series) [facility] Start: 1986 Zoster vaccine hzv live for subcutaneous use ZOSTER (SHINGLES) VACCINE (1 of 2) [facility] Start: 1985 Hepatitis C screening Hepatitis C Screening [facility] Start: 1982 HIV screening HIV Screening [facility] Start: 1980 HIV screening HIV SCREENING DISCUSSION [facility] Work Phone: Start: 1979 Depression screening using PHQ-9 (Patient Health Questionnaire 9) score Depression Screening (PHQ-2/9) [facility] Start: 1970 History and physical examination, annual for health maintenance Wellness Visit [facility] Start: 1965 Prostate specific antigen measurement PSA Level [facility] Start: 1965 Screening for malignant neoplasm of colon [facility] Comprehensive metabo lic 2000 panel - Serum or Plasma [facility] Ecg routine ecg w/le ast 12 lds w/i&r DE ELECTROCARDIOGRAM, COMPLETE DE - OFFICE PERFORMED Routine Preop exam for internal medicine Polycystic kidney disease -donor 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/25/2016 Immunosuppression S/P laparoscopic sleeve gastrectomy Ordered: 01/04/2022 [facility] Comment on above: Ordered: 01/04/2022 Esophagogastroduoden oscopy transoral diagnostic EGD DIAGNOSTIC Gastroesophageal reflux disease without esophagitis S/P laparoscopic sleeve gastrectomy [facility] ENDOSCOPY MRI of knee MRI KNEE RIGHT W ITHOUT CONTRAST Routine Chronic pain of right knee Osteoarthritis of right knee, unspecified osteoarthritis type Ordered: 05/15/2018 [facility] Work Phone: Comment on above: Ordered: 05/15/2018 Orthotics mgmt & tra ing initial enctr ea 15 mins DE ORTHOTICS MGMT & TRAINJ INITIAL ENCTR EA 15 MINS DE - OFFICE PERFORMED Routine Right foot pain Sprain of right ankle, unspecified ligament, initial encounter Ordered: 04/19/2023 [facility] Comment on above: Ordered: 04/19/2023 Polysomnography SCHEDULE HOME SL EEP STUDY PFT Routine S/P laparoscopic sleeve gastrectomy History of obstructive sleep apnea Obstructive sleep apnea (adult) (pediatric) Ordered: 09/30/2023 [facility] Comment on above: Ordered: 09/30/2023 Radiography for bone length studies XR BONE LENGTH STUDY Routine Chronic pain of right knee 05/15/2018 3:03 PM [facility] Work Phone: Radiologic examination of knee X R KNEE RIGHT 4+ VIEWS Routine Chronic pain of right knee 05/15/2018 3:03 PM [facility] Work Phone: Shvg skin lesion 1 t runk/arm/leg diam 0.6-1.0 cm DE SHAV SKIN LES 0.6-1CM TRUNK,ARM,LEG DE Charge Routine Neoplasm of uncertain behavior of skin Ordered: 05/28/2023 [facility] Comment on above: Ordered: 05/28/2023 Standard ECG ECG ECG Routine S/P laparoscopic sleeve gastrectomy Vitamin D deficiency Iron deficiency Medication management Ordered: 09/30/2023 [facility] Comment on above: Ordered: 09/30/2023 SURG PATH REQUEST SURG PATH REQU EST Surg Path Routine Neoplasm of uncertain behavior of skin 05/28/2023 2:42 PM [facility] XR Ankle - right GE [address] [facility] XR Foot - right 3 Views XR FOOT RIGHT 3 VIEWS Imaging Routine Right foot pain 04/19/2023 10:49 AM EDT [facility] Work Phone: [facility] Immunizations Immunization Date Immunization Notes Care Provider Antonio guerrero 05-13-2023 influenza virus vacc ine, unspecified formulation Sushila Saravia MD Work Phone: [facility] 07-10-2021 pneumococcal polysaccharide vaccine, 23 valent Andrew Trinidad C[employer] CUTTER [employer]PUDDLER HELPER Work Phone: [facility] 04-18-2021 influenza virus vacc ine, unspecified formulation Jennifer Marrufo DO Work Phone: [facility] 09-10-2020 COVID-19 vaccine, AD 26, Jenna 0.5 ML Andrew Trinidad CORE CUTTER AND REAMER-PUDDLER HELPER Work Phone: [facility] 09-12-2018 influenza, injectabl e, quadrivalent, preservative free Andrew Pringlewell CORE CUTTER AND REAMER-PUDDLER HELPER Work Phone: [facility] 01-05-2016 tetanus and diphther ia toxoids, adsorbed, preservative free, for adult use (2 Lf of tetanus toxoid and 2 Lf of diphtheria toxoid) Jorge [facility] Work Phone: 12-30-2015 pneumococcal conjuga te vaccine, 13 valent [facility] Work Phone: Payers Date Payer Category Payer Medicare [id number] 2018 Self-pay 2013 Medicare [id number] 2013 Medicare [id number] 2013 Medicare [id number] 1967 Unknown [id number] 2.16. 840.1.887725.3.579.2.903 1967 Unknown [id number] 2.16. 840.1.227622.3.579.2.903 1967 Unknown [id number] 2.16. 840.1.691882.3.579.2.903 1967 Unknown [id number] 2.16. 840.1.080349.3.579.2.903 1967 Unknown [id number] 2.16.8 40.1.702760.3.579.2.983 1967 Unknown [id number] 2.16.8 40.1.739986.3.579.2.983 1967 Unknown [id number] 2.16.8 40.1.945462.3.579.2.983 1967 Unknown [id number] 2.16.8 40.1.302131.3.579.2.983 1967 Unknown [id number] 2.16.8 40.1.381150.3.579.2.983 1967 Unknown [id number] 2.16. 840.1.904855.3.579.2.594 1967 Unknown [id number] 2.16. 840.1.051308.3.579.2.594 1967 Unknown [id number] 2.16. 840.1.782407.3.579.2.594 1967 Unknown [id number] 2.16. 840.1.351714.3.579.2.594 1967 Unknown [id number] 2.16. 840.1.805472.3.579.2.594 1967 Unknown [id number] 2.16. 840.1.121056.3.579.2.594 1967 Unknown [id number] 2.16. 840.1.750522.3.579.2.594 1967 Unknown [id number] 2.16. 840.1.943693.3.579.2.594 1967 Unknown [id number] 2.16. 840.1.931932.3.579.2.594 1967 Unknown [id number] 2.16. 840.1.950349.3.579.2.594 1967 Unknown [id number] 2.16. 840.1.216881.3.579.2.594 1967 Unknown [id number] 2.16. 840.1.648834.3.579.2.594 1967 Unknown [id number] 2.16.8 40.1.957704.3.579.2.983 1967 Unknown [id number] 2.16.8 40.1.134565.3.579.2.983 1967 Unknown [id number] 2.16.8 40.1.492455.3.579.2.983 1967 Unknown [id number] 2.16.8 40.1.526685.3.579.2.983 1967 Unknown [id number] 2.16.8 40.1.203014.3.579.2.983 Medicaid Medicaid [id number] Unknown [id number] 2.16.840 .1.632027.3.579.2.531 Social History Date Type Detail Facility Start: 05-15-2018 End: 02-24-2024 Tobacco smoking status NHIS Former smoker [facility] Work Phone: Start: 07-01-1982 End: 12-30-1999 History of tobacco use Current smoker [facility] Work Phone: Start: 07-01-1982 End: 12-30-1999 History of tobacco use Cigarette Smoker [facility] Work Phone: Start: 05-15-2018 End: 02-20-2024 Cigarettes smoked current (pack per day) - Reported [facility] Work Phone: Start: 1965 Sex Assigned At Not on file O [facility] Work Phone: Start: 11-30-2016 End: 02-20-2024 Tobacco use and exposure Smokeless tobacco non-user [facility] Start: 08-17-2021 End: 12-25-2023 Alcohol intake Current non-drinker of alcohol (finding) [facility] Start: 09-08-2021 End: 10-27-2022 Exposure to SARS-CoV-2 (event) Not sure [facility] End: 07-01-1999 History of tobacco use Pipe Smoker [facility] Start: 01-21-2022 History SDOH Alcohol Comment [facility] Start: 08-30-2022 End: 02-20-2024 Alcohol intake Ex-drinker (finding) [facility] Start: 09-02-2022 End: 02-20-2024 Tobacco use panel [facility] Adolescent depressio n screening assessment 0 [facility] Gender identity Identifies as ma le gender (finding) [facility] Start: 09-02-2018 Sexual orientation Heterosexual (fin ding) [facility] History of tobacco use Passive smoker [facility] Start: 1965 Sex Assigned At Male F [facility] NEGATED: Highlighted rowStart: NINF History of tobacco use Passive smoker [facility] Medical Equipment Procedure Code Equipment Code Equipment Origin al Text Equipment Identifier Dates [id number] Uh Covidien Mesh Open Skirt [id number] Start: 05-09-2017 [id number] Uh Covidien Mesh Open Skirt [id number] Start: 05-09-2017 [id number] Uh Covidien Mesh Open Skirt [id number] Start: 05-09-2017 [id number] Uh Covidien Mesh Open Skirt [id number] Start: 05-09-2017 [id number] Uh Covidien Mesh Open Skirt [id number] Start: 05-09-2017 Mesh Marlex 10in X 14in - [id number] Start: 02-27-2019 [id number] Uh Covidien Mesh Open Skirt [id number] Comment on above: Description: [id number] X [id number] Uh Covidien Mesh Open Skirt [id number] Start: 05-09-2017 Comment on above: Description: [id number] X Goals Date Patient Goal Desired Activity /State Personal health goal Comment on above: Formatting of this n ote might be different from the original. Short Term Goal The patient will demonstrate good adherence and understanding to recommended home exercise program for maintenance of functional gains Longterm Goal Increase R ankle PF Strength to [...] and household activities. Clinical Notes 09-25-2016 to 02-20-[address] - 02/20/2024 11:30 AM Alla Sam RN - 02/20/2024 11:00 AM Attila Moore MD - 02/20/2024 11:00 AM EDTPatient InstructionsPatient InstructionsPatient Instructions Note Date & Type Note Facility 02-20-2024 History of Present illness Narrative Pre-Operative Diet Education Met with Lino who was referred by Dr. Griselda Moore to discuss the liver shrink diet providing 1200 calories and 120 g protein. Relevant PMHx: Past Medical History: Diagnosis Date Anxiety disorder [...] 1999 Snoring Umbilical hernia not yet repaired We discussed using lower carb meal replacement shakes to help reduce liver-volume for surgery. Encouraged him to use non-starchy vegetables as snacks to aid with hunger. Reinforced eating only foods mentioned within the parameters of the diet and to consume >64 oz of sugar free, decaf fluids. Advised patient to remain on diet for the 2-3 weeks prior to his surgery date. Reviewed instructions for the pre-operative drinks, clarifying he needs to consume 1 bottle the night before surgery and 1 bottle 2 hours before his scheduled arrival time on the day of surgery. Discussed the reasoning and benefits for consuming these drinks as directed. Reviewed the step II diet parameters for after surgery. Patient asked appropriate questions and demonstrated understanding; therefore, expect good outcome. Malnutrition Assessment: Unable to Assess due to telehealth visit *based on the AND/ASPEN Malnutrition Criteria 2012 NFPE not warranted at this time; deferred at this time. Learning Barriers Identified: can read and write adequately Understanding Demonstrated: Patient states full understanding Expected Adherence: Patient voices high motivation to learn and/or adhere to recommendations Division Sales Manager resource utilized: No Spent 10 minutes with patient [id number] providing nutrition assessment and/or counseling/education Bina Sheets MS, RDN, LD documented in this encounter [facility] 02-20-2024 History of Present illness Narrative Surgeon Pre-operative Visit: Bariatric Surgery Nurse Education 1 [x] 1. Reviewed todays visit sequence plan. 2. Oriented to room and clinic space. 2 [x] 1. Discussed today's visit as an opportunity to meet the attending surgeon and have discussion regarding the operative procedure(s), ask questions, and verbalize any concerns. 2. Discussed surgeon will often draw a photo of the post op anatomy and obtain surgical consent 3 [x] 1. Introduced to [facility] Nursing Clinical Care Management and call triage process. The outpatient registered nurse team assists with patient care and calls to the department through the Call Center and MY Chart. 2. RN's in the clinic support physician and Nurse Practitioner office care. Discussed that messages sent to a Provider are seen at multiple levels, and may default to the nursing team that supports that individual. The nurse will respond to the messages. He/she may also forward it on to a SENIOR MOBILE WEB DEVELOPER and or the surgeon, or dietitian, as appropriate. 4 [x] 1. Identified location of surgery as [address] with arrival location at the main hospital entrance at Registration. Advised: 2. Preregistration - The hospital will call to pre-register patients for surgery. For patients that have not been called within 2 days of the surgery date, they should call Preregistration at [phone] or [phone]. Patients with MYChart should log in to complete the preregistration questionnaire. 5 [x] Reviewed: 1. Importance of vitamin regimen compliance for disease management as well as water and protein 64 oz/60 grams. 2. Vitamins after surgery are required and are lifelong. 3. Advised patient to take 2-3 sips to finish 1 oz every 10 minutes. Instructed using metrics of cubic centimeter (cc),versus milliliter (ml), versus ounce, versus tablespoons, using a medicine cup a a visual aide. 4. Advised to call the clinic for symptoms of dehydration (identified as most common post op complication) early in the event and early in the day for the best plan of treatment. 5. Advised on use of prescribed or over the counter Miralax as the first line of treatment for prevention of constipation. Stool consistency should be soft (not diarrhea nor hard). Patients should not be straining to have a bowel movement. If constipation is not relieved, pt may use Milk of Magnesia per label instructions and advised to call the office or send a MY CHART for these concerns. 6 [x] Discussed: 1. Pre-Admission Testing as an appointment where a plan is drafted in final preparation for surgery including: A. Type and cross-match for blood B. Lab testing (as determined by PAT) C. Medication holds Reminded to bring their medication(s) in the original vial(s) with them to the Pre-admission testing visit and to the hospital, so that the care team can visualize the medication in case there is a question regarding what is being taken versus the label. D. Surgical scrub protocol (advised of use from neck down, and of special attention needed to cleanse abdomen, arms, and groin) E. Check oral cavity for any evidence of loose teeth or infection 2. Compac evaluation protocol discussed as indicated 7 [x] Notified that this office does not respond to pharmacy requests for medication refill as a policy. A direct call or MYChart message from the patient is required in order to have confirmation of continued use, dosage, and effect. 8 [x] 1. Discussed wearing and use of abdominal binder to be received in-patient. If binder is uncomfortable, may also use tights/jegging. 2. Discussed largest port as location of laprascopic manipulation (commonly RLQ) which may be more tender than other lapracopic incisions. This port may bruise around the incision and it may pucker, however, it should not drain. Uploaded MYchart pictures may be needed to assess a post op wound complication. 9 [x] Requested to bring one to two of their dietitian approved protein shakes to the hospital in case they don't like the [facility] provided shakes. 10 [x] 1. Discussed having chewable multivitamins pre-purchased so they are ready for home. EX: Flintstones Complete with iron or Centrum Chewable or a chewable bariatric vitamin. Reminded to avoid gummies because they do not contain the iron that is needed after surgery. 2. Advised that prescribed post op meds are scheduled and not optional or to be taken as needed, including: A. Anti-acid (for acid suppression around suture line vs GERD), B. Acetaminophen for pain C. Zofran/ondansetron an anti-emetic D. May be prescribed an anti-inflammatory such as Celebrex E. May be prescribed Cyclobenzaprine, a muscle relaxant to help with muscular pain. One as needed medication may be prescribed for pain, such as Percocet 11 [] 1. Advised to pre-purchase unsweetened applesauce. Reviewed this as helpful to mix with medications that may need to be crushed or capsules that need to be opened, also used because of its acidic nature which helps with gallstone and bladder stone prevention. Sugar free gelatin, popsicles, and broth are also items patients may want to pre-purchase which may be helpful as hydration supplements after surgery. 2. After surgery, medications must be SMALLER than the size of a DIME in order to take them whole. Medications that touch the edges of the dime are too big and must be crushed or split. (Large capsules must be opened) until you are on STEP 3 diet. If you have to chew, it's not step two ! 3. Discussed no use of straws. (Complimentary bottle may have a straw which is not to be used after surgery) 12 [x] Regarding DEMI, reminded to bring their own CPAP or BiPAP with them to the hospital! This is very important! 13 [] 1. Advised to discuss diet concerns here today at the RD appointment. Patients will be on a liver shrink diet before surgery. 2. Reviewed that the outpatient dietitian team will also be available to discuss any dietary concerns before surgery and after surgery as well. 14 [x] 1. Advised to schedule a post-operative appointment with primary care provider within 1 month of surgery. 2. Offered [facility] resources as needed. [facility] Internal Medicine accepts patients in attending clinic and residents clinic. Call 15 [x] 1. Pre-Surgery Drink: Reviewed and instructed on the use of the pre-surgery drink to be used the night before and the morning of surgery. This information is included in the Having Bariatric Surgery Book and other individual booklets/handouts that may be received today from the RN and the Dietitian. 2. Advised that the surgical drink is used to decrease hunger, thirst, and nausea before surgery and to improve recovery after surgery. The Dietitian will provide additional instructions if the patient is diabetic. 16 [x] 1. Incentive Spirometer: Completed education on How to Use an Incentive Spirometer/Breathing Director [employer]. [facility] Patient Education information sheet included in clinic pre-op bag. 2. Reviewed use of a pillow to splint the abdomen for coughing and deep breathing. 17 [x] Reinforced the importance of calling surgery procedural scheduling at [phone] for the development of any untoward symptoms such as a cold, new infection, etc. That might develop before surgery. A surgery may be cancelled up to and including the day of surgery for any pt with symptomatic contraindications to surgery. 18 [x] Advised to bring cell phone and records management clerk on the day of surgery. (Patients can use their phones to set a timer to remind them to drink). 19 [x] 1. Pt advised General anticipated length of stay in-patient is 48 hours. 2. Patients should arrange to have an adult escort to home at discharge. Patients will not be permitted to leave the hospital alone 3. As little as possible should be brought to the hospital for this stay. No perishable items, jewelry, nor other valuables should be brought, as family will need to carry these items. The pre op holding is a small area with limited storage. Things to bring with you: A. Your photo ID and health insurance card(s). B. Copay, coinsurance, or deductible for the amount you are responsible for. C. Phone numbers for your doctors and pharmacy you use. D. List of preferred home health agencies or rehabilitation centers, if needed. E. Current copy of your medicine list. Please include all over the counter and prescription medicines, and vitamins, minerals, and herbal products that you take along with the amount (dose) and how often you take it. Also list the last time the medicine was taken. F. Copies of your Living Will and Health Care Power of Promotions Coordinator forms (if you have them). G. Your cell phone and records management clerk. Your phone will be used as a timer to remind you to sip on liquids after surgery. H. Your small bag of clothing and toiletries for the hospital. I. A couple of dietitian approved shakes, in case you do not like what the hospital serves. J. If you have sleep apnea and use a APAP, BiPAP, or CPAP machine, please bring it with you to the hospital. You will be wearing it when you come out of surgery. K. Your Bariatric Surgery Book 1 (If available at this time). L. BSTOP-D (Bariatric Surgery Targeting Opioid Prescriptions) Patient education pamphlet provided with extended education about documentation on Opioid Use Log. Please plan to document your pain rating (scale 1-10), the # of opioids taken, and the # of opioids remaining in the prescription. Please bring this information to your first post op visit. 20 [x] 1. Reviewed department general protocol for seeing surgeon at the 1st post op visit within 2 weeks of discharge. The [place] [facility] PUDDLER HELPER will then see the patient at subsequent post-operative visits of 1 month, 2 months, 6 months, then annually. 2. Reviewed importance to be seen annually by a bariatric deck specialist and to have a nutritional lab review annually so that specific nuances of bariatric care are addressed. 21 [x] 1. Discussed ability to obtain lab draw pre-visit for the 6 month and annual visits. Patient is to contact the office if he/she chooses to do so via office call or MY Chart. 2. If labs are not being done at [facility] the pt will need to provide the facility name and fax number. 3. Advised to keep all surgery materials in the surgery binder for current and future reference. 22 [x] Future Clinic visits after surgery: Advised: Pt should to plan to arrive to the complex at least 30 minutes before any scheduled clinic appt time for parking, vital sign check, and nurse check in which is currently not part of a patients Provider appt time. If a patient is more than 15 minutes late for a visit they may be asked to reschedule. Met with [facility] for liver shrink diet review and post op diet Subjective: Lino Fontenot is a 58 y.o. obese male who presents to clinic today to discuss options for alleviation of reflux secondary to previous laparoscopic sleeve gastrectomy. He has been suffering with reflux for 3 years. Demester score: 44.2 Heaviest weight is 250. The most He has been able to lose is 60 lbs, by LSG. Has regained about 50 pounds back Past Medical History: Diagnosis Date Anxiety disorder [...] Bilateral; Surgeon: Charley Mccracken MD, PhD; Location: [facility] MAIN OR NEPHRECTOMY 2021 APPENDECTOMY LAPAROSCOPIC N/A 12/26/2019 Laterality: N/A; Surgeon: Rosy Lynn DO; Location: [facility] MAIN OR GASTRECTOMY LONGITUDINAL (SLEEVE) LAPAROSCOPIC N/A 08/10/2019 Laterality: N/A; Surgeon: Griselda Moore MD; Location: [facility] SAME DAY SURGERY MAIN OR EGD DIAGNOSTIC N/A 08/10/2019 Laterality: N/A; Surgeon: Griselda Moore MD; Location: [facility] SAME DAY SURGERY MAIN OR EGD DIAGNOSTIC N/A 04/24/2019 Laterality: N/A; Surgeon: Nahomy Santos MD; Location: [facility] ENDOSCOPY LAPAROTOMY EXPLORATORY N/A 02/27/2019 Laterality: N/A; Surgeon: Raul Lott MD; Location: [facility] MAIN OR HERNIA REPAIR 02/27/2019 REPAIR HERNIA UMBILICAL OPEN W/ MESH N/A 05/09/2017 Laterality: N/A; Surgeon: CORNEL Elizondo; Location: [facility] MAIN OR KIDNEY TRANSPLANT W/O AKIAK NEPHRECTOMY N/A 09/25/2016 Laterality: N/A; Surgeon: Jose Shaw MD; Location: [facility] MAIN OR DE ARTHROSCOPY KNEE MENISCAL TRNSPLJ MED/LAT Right 11/12/2014 right knee scope with lateral [...] EXCISION FISTULA LACTIFEROUS DUCT TONSILLECTOMY Current Outpatient Medications Medication Sig Alclometasone Dipropionate 0.05 % Cream Apply 0.05 mg topically As directed as needed. Apply to affected area 1-2 times daily when skin flared aspirin 81 MG Chew Tab chewable tablet Chew 1 tablet daily every morning. ..Please obtain future renewals of this prescription from your primary care provider. CALCIUM CITRATE PO Take 600 mg by mouth 2 times daily. carBAMazepine 100 MG Chew Tab Take 2 tablets daily in the morning and 3 tablets daily in the evening Cetirizine 10 MG tablet Take 1 tablet by mouth daily. Chlorthalidone (THALITONE PO) Take 25 mg by mouth daily. cyanocobalamin 500 MCG tablet Take 2 tablets by mouth daily every morning. (Patient taking differently: Take 1 tablet by mouth daily every morning.) escitalopram 20 MG tablet Take 1 tablet by mouth daily every morning. Ketoconazole 2 % Cream cream Apply 1 Application topically daily as needed. Apply to affected area up to twice daily --> okay to use every day without breaks if needed Losartan 25 MG tablet Take 1 tablet by mouth daily. magnesium oxide 400 (241.3 Mg) MG tablet Take 1 tablet by mouth 2 times daily. Montelukast 10 MG tablet Take 1 tablet [...] Take 1 tablet by mouth at bedtime. Pantoprazole (Protonix) [address] tablet DR Take 1 tablet by mouth 2 times daily. rOPINIRole 0.5 MG tablet Take 1 tablet by mouth at bedtime. sildenafil citrate 100 MG tablet Take 0.5-1 tablets by mouth as needed for Erectile Dysfunction. Sodium Zirconium Cyclosilicate (Lokelma) 5 g Pack powder Take 2 packets by mouth daily. Tacrolimus (PROGRAF) 1 MG capsule Take 6 capsules by mouth 2 times daily. Terbinafine 1 % Cream cream Place 1 Application on skin As directed as needed. Apply to affected area (feet) twice daily Allergies Allergen Reactions Nsaids Cannot take due to renal transplant and gastric sleeve *Seasonal Runny Nose Social History Tobacco Use Smoking status: Former Current packs/day: 0.00 Average packs/day: 1 pack/day for 20.0 years (20.0 ttl pk-yrs) Types: Cigarettes Start date: 07/01/1982 Quit date: 12/30/1999 Years since quittin.1 Passive exposure: Past Smokeless tobacco: Never Substance Use Topics Alcohol use: Not Currently Comment: none Family History Problem Relation Age of Onset Kidney Disease Mother PKD; transplant Hypertension Mother Diabetes Father Diabetes Sister Alzheimer's Maternal Grandmother Other - Specify Maternal Grandfather esrd Anesth Problems Neg Hx Colorectal Cancer Neg Hx GI Disease Neg Hx Review of Systems General/Constitutional: Negative for fever, chills. HEENT: No dysphagia or odynophagia. Cardiovascular: Negative for palpitations or chest pain. Respiratory: Negative for chronic or productive cough or hemoptysis. Gastrointestinal: No abdominal pain, nausea, vomiting, or changes in bowel habits. Genitourinary: Negative for dysuria or kidney stones Musculoskeletal: Negative for other arthralgias, myalgias, or back pain than described. Neurological: Negative for seizures. Psychiatric: Negative for untreated disorders. Lymph/Heme: No history clotting or bleeding disorders. Endocrine: Negative for thyroid or other endocrine disorders Skin: Negative for acute skin lesions. Objective: BP 148/72 (BP Location: Left arm, BP Position: Sitting) Pulse 62 Temp 97.2 F (36.2 C) (Infrared) Resp 16 Ht 1.702 m (5' 7 ) Wt 108.9 kg (240 lb) SpO2 98% BMI 37.59 kg/m Smoking Status Former Body mass index is 37.59 kg/m . 108.9 kg (240 lb) Data Review: Lab Results Component Value Date WBC 8.38 09/30/2023 WBC 7.5 10/16/2022 WBC 7.5 10/16/2022 MCV 88.9 09/30/2023 MCV 90.1 10/16/2022 Lab Results Component Value Date SODIUM 141 09/30/2023 SODIUM 137 10/16/2022 SODIUM 137 10/16/2022 SODIUM 127 (L) 09/25/2016 POTASSIUM 5.0 09/30/2023 POTASSIUM 5.1 10/16/2022 POTASSIUM 5.1 10/16/2022 GLUCOSE 78 09/30/2023 GLUCOSE 95 10/16/2022 GLUCOSE 95 10/16/2022 GLUCOSE 113 (H) 09/25/2016 CHLORIDE 105 09/30/2023 CHLORIDE 103 10/16/2022 CHLORIDE 103 10/16/2022 CO2 25 09/30/2023 CO2 25 10/16/2022 CO2 25 10/16/2022 BUN 31 (H) 09/30/2023 BUN 32 (H) 10/16/2022 BUN 32 10/16/2022 Lab Results Component Value Date ALT 11 09/30/2023 ALT 18 10/16/2022 ALT 18 10/16/2022 AST 12 09/30/2023 AST 21 10/16/2022 AST 21 10/16/2022 GGT 57 02/09/2011 BILIRUBIN NEG 10/09/2021 Lab Results Component Value Date HGBA1C 5.6 11/20/2023 HGBA1C 5.0 10/16/2022 Assessment: Lino Fontenot has clinically severe reflux and specifically desires a laparoscopic revision with a gastrojejunostomy and rebeka-en-y reconstruction. Plan: Lino Fontenot was informed of their options that included continued, non-operative medical management. We spent 20 Minutes discussing this operation, how it achieves resolution of reflux. We also discussed the risks, complications or side-effects whenever someone has an operation or medical procedure. We did talk about the major and most common complications that could happen after this operation including: , heart and lung problems (heart attack, stroke, abnormal heart rhythm), blood clots and pulmonary embolism, leaks at the suture lines in the bowel, bleeding requiring transfusion or reoperation, conversion to an open operation, wound complications such as infections and hernias, strictures in the pouch, nutritional problems including low iron, B12, calcium, and others, gall stones, body image issues related to loose skin, internal hernias, marginal ulcers (shouldn't smoke or take NSAIDs), watch consumption of alcohol, and other rare non-discussed complications We discussed that our goal is to ameliorate reflux and not to obtain a specific body mass index. He understands the risks and benefits and wishes to proceed with the procedure. The consent was signed. He will see our television schedule coordinator prior to starting the 3 week liver shrink diet. He will also be seen in the OPAC clinic. I spent a total of 30 minutes with the patient of which 20 minutes were spent face to face counseling on the above and coordinating care. Preop conversion of LSG to RYGB for GERD BMI 37 Had bilateral nephrectomies done after LSG through chevron incision Transplanted kidney function is stable No prior VTE R/b/a/p discussed, agrees to proceed Griselda Moore MD Preoperative Education Check-List The patient was educated regarding the following perioperative expectations. 1. The expected hospital length of stay for this operation, barring complications, is 1-2 day(s): 2. During the index stay, pain control will be managed by non-opioids first, including tylenol, celebrex, toradol, and lidocaine blocks. Opioid therapy will be considered last-line for uncontrollable pain: yes 3. PONV: The patient was educated that nausea control will be managed by a protocol that includes preoperative prophylaxis with a scopolamine patch, intraoperative treatment of zofran/phenergan and Dexamethasone, and post-operative symptom control: yes 4. The patient will be able to have a Clearfast drink the night of their operation and 2 hours prior to their scheduled operation time: yes 5. The patient is expected to continue a clear liquid diet up to the morning of surgery: yes 6. The patient is expected to drink the provided carb drink 2 hours prior to the scheduled surgical time: yes 7. The patient was instructed to undergo a shower with chlorhexidine the night before surgery:yes 8. The patient was instructed to discontinue all ACEI/ARB medications within 24 hours of surgery :yes 9. The patient was educated was provided an incentive spirometer. yes 10. The patient was provided with educational information covering all discussed material, as well contact information should there be any follow-up questions:yes 11. The patient will be administered a pre-operative education assessment survey prior to leaving this visit: yes documented in this encounter [facility] 02-20-2024 Instructions Lidia ValenciaJordan - 02/20/2024 11:00 AM EDT BEFORE SURGERY: PRE-PROCEDURE PREPARATION (COMPAC) Date: 03/09/24 Call Time: 11:30 am Patients who are scheduled for a surgical or other procedure at [facility] may be required to complete a pre-operative phone/video call. A nurse will collect information about your health, fitness, previous operations, allergies and more. This helps prepare the surgeon, the anesthesiologist and you by identifying any potential anesthetic, surgical or post-operative complications. If applicable, you may be referred to undergo an electrocardiogram (ECG), blood or urine tests or other tests. You will also receive pre- and post-surgery instructions to help ensure you are completely informed about what to expect. [facility] PREOPERATIVE [facility]ESS[facility] (OPAC) Date: 02/25/24 Arrival Time: 10:15 am Located at: [facility] [address] [facility] - 1st floor of the mineral, [address] [place] [address] PLEASE REGISTER ON THE 1ST FLOOR [place] Please allow 2 hours for your OPAC appointment. Your physician has chosen to send you to the OPAC to have your preoperative testing completed. The OPAC is a single site that will help coordinate your preoperative needs and provide you with the information and education you need prior to your surgery. This could include tests and assessments such as: Medical history and physical examination EKG Blood testing Medication documentation Chest x-rays Referrals for other diagnostic testing Preparing for Your OPAC Appointment Please bring the following items to your appointment: A list of medications including the name, dosage and how often you take each medication (you may also bring the bottles, with labels intact) Your insurance card and identification including your social security number or medical record number. Your insurance co-payment if required by your insurance Previous tests and radiology reports (if you have them) Names, addresses and phone numbers of other doctors who are treating you or referred you Personal health information including dates when events occurred and any allergies you may have to medications Family health history information listing significant conditions that affected family members directly related to you A list of questions or concerns you may want to discuss with the doctor or nurse [facility] doctors and staff are educators who teach others about health and medical procedures. We are happy to talk with you so that you can fully understand your condition and can be an active participant in your journey to better health. We look forward to serving you. Please don t hesitate to ask any questions. DAY OF SURGERY: IMPORTANT: If you develop cold/flu like symptoms prior to surgery, please contact our office at [phone] Please note that this schedule is subject to change, you may be contacted up to 24 hours in advance of surgery for any necessary adjustments. This may include an arrival time as early as 5:00 AM. Please plan accordingly. [x] SURGERY SCHEDULE YOUR SURGERY DATE: 03/23/24 ARRIVAL TIME: You will receive an automated call 24-48 hours prior to surgery please call if you do [place] [address] [place] in [address], Patient Admissions (1st room on the right) Office #: [phone] Fax #: [phone] CURRENT COVID VISITOR POLICY: These visitor policy changes for hospital inpatients only are effective 08/24: Hospital inpatients, including COVID-19 positive and suspected patients, can have two named visitors of the patient s choice per day as identified in the patient s electronic medical record. Visitors are required to wear a wristband or visitor badge with the date and visitor s name. Visitation is permitted between 8 a.m. to 7 p.m., seven days a week. Visitors must have no COVID-19 symptoms or recently known exposures. Visitors must have no COVID-19 symptoms or recent known exposures and adhere to these protocols: Show a government-issued photo ID upon arrival. Wear a hospital-provided mask over nose AND mouth at all times in all health care settings, including the patient's room, regardless of vaccination status. Practice good hand hygiene. Existing visitor exceptions remain in place for: Emergency departments Surgery/Procedures End of life/Goals of care Outpatient obstetrics Maternity NOTHING TO EAT OR DRINK AFTER MIDNIGHT. PLEASE HAVE YOUR TRANSPORTATION AVAILABLE AT ANY TIME. Arrange to have an adult to drive you to the hospital and be there to take you home after the surgery. If you are taking a cab, bus or medical transportation service home, an adult, other than the piledriver carpenter, needs to ride with you for your safety. This person will also be responsible for communicating post-operative instructions to you. If you would like to sign up for text messages for [facility] appointment reminders text [facility] TO [phone]. You will receive a response within a few minutes after sending to verify. Please call our office at if you have any questions, problems or if you develop any illnesses such as a cold, sore throat, cough, or fever prior to your surgery. If you are a patient who will require disability paperwork to be completed, please bring your paperwork with you to an office visit. Please allow 7-10 business days for these to be completed. The clinic staff will be completing these forms and you can call the office if you have questions. Medicines to prevent blood clots If you are taking aspirin to prevent blood clots because you have a stent, or you have had a heart attack or stroke, continue to take your aspirin up to, and even on the day of a surgery . If you have a stent, read the Protect Your Stent handout to learn more. The medicines listed below thin the blood to prevent blood clots. Taking them decreases the chance of heart attack, stroke and blood clots. However, taking them before a surgery can also increase the chance of bleeding. Apixiban (Eliquis) Clopidogrel (Plavix) Dabigatran (Pradaxa) Dalteparin (Fragmin) Enoxaparin (Lovenox) Fondaparinux (Arixtra) Prasugrel (Effient) Rivaroxaban (Xarelto) Ticagrelor (Brilinta) Ticlopidine (Ticlid) Warfarin (Coumadin) As soon as you know about a planned surgery: Tell your surgeon about the medicine you take to prevent blood clots. Also, talk with the doctor who prescribes your medicine to prevent clots. He or she can tell you how to adjust your medicine around the time of your surgery. If your surgery date is changed and you stopped taking your medicine to prevent clots, call your doctor. You may need to restart the medicine while you are waiting for your surgery to be rescheduled. What to do about your medicines before surgery Please call your doctor s office if you have any questions about your regular medicines. Some medicines need to be stopped for a time before your surgery to prevent problems. Use this list as a guide. If you are not sure which medicines you should stop before your surgery, ask your doctor to be sure. Follow the directions of your doctor. All herbal medicines should be stopped 14 days before surgery. Monamine oxidase inhibitors should be stopped 7 to 14 days before surgery. These include drugs such as Nardil (Phenelzine Sulfate), Parnate (Tranylcypromine Sulfate), Eldepryl (Seleqiline Hydrochloride). Glucophage (Metformin) should be stopped 48 hours before surgery. Do not take these kinds of medicines the morning of surgery: Metformin should be stopped 48 hours prior to surgery Insulin or oral diabetes medicines - Please check your blood sugar the morning of surgery if you have diabetes. Diuretics (water pills) JACKY Inhibitors for blood pressure Digoxin unless used for irregular heartbeat, such as atrial fibrillation Take these medicines the morning of surgery with a sip of water: All heart medicines All blood pressure medicine, except diuretics (water pills) and JACKY inhibitors All breathing medicines, including inhalers All anti-seizure medicine All heartburn or gastric reflux medicine, except antacids such as Maalox or Mylanta Pain medicine, prescribed to you by a doctor, if in severe pain Steroid medicine Antidepressant medicines, except monamine oxidase inhibitors such as Nardil (Phenelzine Sulfate), Parnate (Tranylcypromine Sulfate), and Eldepryl (Seleqiline Hydrochloride) Preparing for Surgery Do not eat or drink anything (including water, coffee, candy, gum or mints) after midnight before your surgery. Only take the medicine your surgeon or anesthesiologist told you to take by mouth the morning of your surgery. You may brush your teeth, but do not swallow the water. It is important to have an empty stomach before your surgery. Do not smoke/use any sort of tobacco after 6 p.m. the night before your surgery. Wear casual, loose-fitting clothing to the hospital. Do not wear makeup, nail st lucian or hair pins to the hospital. Please remove any body piercing's. Please leave jewelry and other valuables at home. Bring a storage case for contact lenses or glasses. They cannot be worn during surgery. If you take medicines on a routine basis, please bring an updated list of medications with you. Limit the number of people bringing you to the hospital. Adult patients should be escorted by one adult. Arrive at the hospital two hours before your surgery, or as directed by your surgeon s office, to allow time to get you ready for surgery. If you have a living will or durable power of candy starch mold printer, please bring a copy of the documents with you. IF YOU USE CPAP BRING YOUR MACHINE WITH YOU TO THE HOSPITAL ALONG WITH THE PRESCRIPTION FOR CPAP PRESSURE LEVELS Getting Your Skin Ready for Surgery You are scheduled to have a surgery that involves cutting through the skin. Because germs live on everyone's skin, there is a greater chance of getting an infection. To lessen your chance of getting an infection, you need to take special care of your skin before the surgery. Follow These Instructions: You may be given or you will need to buy a special soap called 4% chlorhexidine gluconate or CHG. Common brand names for this soap are Hex-A-Clens or Hibiclens. You will need 2 of the 4-ounce bottles or Hibiclens Foam wash. There may be a store brand that is less costly. Ask your pharmacist where to find it in the drug store. It is often with first aid supplies. You may want to call ahead to check that they have the CHG soap in the store. Do not shave near the site where your doctor will be making the cut for your surgery for at least 48 hours before surgery. You need to shower with the CHG soap two times before your surgery within 48 hours Cleaning Your Skin with CHG * 1. Start by washing your hair as usual with your normal shampoo and wash your body with regular soap. Rinse your hair and body very well to remove any shampoo or soap that might be on your skin. 2. Wet a clean washcloth and turn off the shower. 3. Put the CHG soap on the wet clean washcloth. 4. Apply the CHG soap to your whole body from the neck down only. Do not use CHG soap on your face and be careful not to get the CHG in your eyes or ears. CHG soap does not lather well. Put more CHG on the cloth as you cover more of your body. You should use about 4 ounces or 1/2 cup of CHG with each shower. Note: If you are using the Hibiclens (chlorhexidine) Foam wash, then apply 3 pumps of wash directly onto your skin and lather your body from the neck down. 5. Wash your body gently for 5 minutes, paying special attention to the part on your body where the surgery will be done. Be sure to wash the back of your neck, under your arms, your belly button, private parts and your legs down to your toes. Do not scrub too hard. 6. Turn the shower back on and rinse well to get the CHG soap off your body. 7. Pat yourself dry with a clean, dry towel. 8. Do not use any lotions, moisturizer, make-up or other products on the skin near the part of your body that will be cut for surgery. 9. Put on clean clothes. *Special Notes If you do not have a shower or you are not able to get into the shower, do a sponge bath each time. Do not wash your hair unless you are to have a cut into your scalp. First, bathe with a washcloth and regular soap. Rinse with clean water. Then get a clean washcloth and use the CHG to wash your body. Rinse with another clean washcloth and plain water. Dry with a clean towel. If you have any questions about cleaning your skin, call your doctor s office. Driving Directions to [facility] From the North ([place], [place] and [place]) Take any major highway to [address] to the [address] [employer] exit Turn left onto [address] Road ([employer] turns into [address]) Take [address] to [address] Turn left onto [address] Turn left onto [address] Turn right onto [address] See Parking Directions - Continued From the South ([facility] and [place]) Take any major highway to [address] to the [address] exit Turn right onto [address] Turn right onto [address] Turn left to stay on [address] Turn left onto [address] Turn left onto [address] Turn right onto [address] See Parking Directions - Continued From the East ([place], [place] and [place]) Take any major highway to [address] to the [address] exit Turn right onto [address] Turn right onto [address] Turn left to stay on [address] Turn left onto [address] Turn left onto [address] Turn right onto [address] See Parking Directions - Continued From the West ([place], [place] and [place]) Take any major highway to [address] to the the [address] exit Turn right onto [address] Turn right onto [address] Turn left to stay on [address] Turn left onto [address] Turn left onto [address] Turn right onto [address] See Parking Directions - Continued Parking Directions - Continued [employer] Continued: Take [address] past the intersection of [address] and [address]. Continue straight to the front of [facility] ([facility]). Pull into [employer] on your right. [address] [facility] [place] [address] Continued: From [address], turn left onto [facility]. The [employer] [address] is located on the left and is connected to the medical center by a walkway bridge on the second fl oor. [address] [place] [address] Continued: Take [address] to [address]. Turn right onto [address]. Turn left onto [address]. Turn left onto [address]. The [address] is located on the right and is connected to the medical center by a walkway bridge on the third floor. NOTE: Discounted Garage Parking is available. Please bring your garage ticket to any information desk in the Medical Center to receive your discount ticket. Financial Obligation: Your insurance many require an authorization prior to the procedure. Our pre-cert office will be contacting your insurance to see if authorization is required. If you have questions about how much your insurance will pay, please contact your insurance directly. Please be prepared to pay your co-pay, co-insurance, or deductible on the day of your surgery. We request patients with insurance that is less than 100% coverage to pay a deposit prior to the procedure being performed. A account services representative from the [facility] will contact you to pre-register you for your services. If you have not received a call by two days prior to your procedure date, please call our Pre-Registration Department at [phone] or [phone]. By calling us in advance, your wait time will be reduced. Our trained representatives can assist you in discussing both your physician and hospital obligations. Are you a [employer] user? If yes, you can log on and complete a pre-registration questionnaire. [employer]: You are not eligible for Financial Assistance if you are entering the [facility] solely to seek medical treatment. We want to make sure all patients have access to quality healthcare services at [facility], and we are committed to working with you and your family to obtain appropriate financial assistance. We are here to help. Please let us know if you do not have health insurance or cannot pay your bill in full. We encourage you to contact our Office of Financial Counseling, where staff members are trained to assist you in determining whether you might qualify for an assistance program. Our financial counselors can help you complete applications for government-sponsored programs, describe other financial assistance programs that can help offset costs, or structure workable payment plans for your required medical treatment if you meet certain financial criteria. They can also assist you in explaining your options related to the Affordable Care Act. These options include helping you apply for: [place] Medicaid (if your income meets guidelines) The Affordable Care Act Insurance Exchange Program. Other federal/state assistance programs Or establish a payment plan Other Assistance: [facility] offers an additional sliding scale financial assistance based on Federal Poverty Guidelines. To help determine the appropriate assistance programs for you, you will need to provide details about your job, income, resources, insurance coverage, family size and other information. We realize some of these details may be of a sensitive nature, but it is necessary that you provide them to enable us to help you. We are committed to respecting you and your privacy during this process. If you are uninsured but do not qualify for Medicaid or other assistance programs, our Financial Counselors will be happy to discuss the Affordable Care Act Insurance Exchange programs. If you are interested in learning more about these programs, please contact the Financial Counseling Department at [phone] between 8 a.m. and 5 p.m. weekdays. A financial counselor can assist you with the application process. You will be screened for all potential programs. If you appear to be eligible for Medicaid, you will be assisted through the application process. As a Medicaid recipient, your physician fees and facility fees could be covered. Services not covered by [facility] financial assistance program: Physician Fees Transportation fees Dental Services Medically unnecessary services Prescriptions Durable Medical Equipment We Are 100% Tobacco-Free At [facility], we care about the health of our patients, visitors and staff. That s why all of our locations - inside and outside - are 100% tobacco-free. We understand that nicotine is addictive, and we regret the inconvenience to tobacco users. However, as an academic medical [facility] with leading cancer and [facility] hospitals, creating a healthy environment for everyone who attends, works and visits our [facility] is important. documented in this encounter [facility] 01-15-2024 History of Present illness Narrative Nurse Note: Review of Systems Constitutional: Negative for chills, fever and unexpected weight change. HENT: Negative for nosebleeds and trouble swallowing. Eyes: Negative for pain. Respiratory: Negative for cough, chest tightness, shortness of breath and wheezing. Cardiovascular: Positive for leg swelling. Negative for chest pain. Gastrointestinal: Negative for constipation, diarrhea and vomiting. Endocrine: Negative for polyuria. Genitourinary: Negative for dysuria and urgency. Musculoskeletal: Negative for neck pain. Allergic/Immunologic: Positive for environmental allergies. Neurological: Negative for seizures and syncope. Hematological: Bruises/bleeds easily. Psychiatric/Behavioral: Negative for sleep disturbance. Nursing Assessment: Subjective History of Present Illness 58 year old white male with past medical history status post kidney transplant on 09/25/16 due to polycystic kidney disease, restless leg syndrome, former smoker with last use 24 years ago, HTN, immunosuppression, obesity, hyperparathyroidism, allergies, depression, ckd III, anxiety, and status laparoscopic sleeve gastrectomy in 08/10/2019 presenting for obesity and possible weight loss surgery Patient seen TAMY Penn on 09/30/23. Patient's highest weight on 07/06/2019 was 261. After surgery , weight dropped to 194 on 04/21/21. Weight now has increased to 241 on 01/15/24 Patient has been eating small portions with about 1600 caloric intake. Has been exercising 3 times a week for 1 to 1 1/2 hours. Has been swimming as part of exercise.Patient drinking about 60 ounces of water a day. Does not drink pop.avoiding nsaids at this time except for 81 mg a day. Patient having sever GERD symptoms. Symptoms occurring daily despite taking pantoprazole 40 mg twice a day. Has mid chest burning with burning in back of throat with nausea, halitosis, bloating, burping, nausea,and foul taste in posterior pharynx.coughing with GERD symptoms.has good appetite.Patient denies any melena, abdominal pain, vomiting, chest pain, shortness of breath at rest or exertion, worsening of leg swelling or syncope. 8 pound gain since 09/30/23. Status post status laparoscopic sleeve gastrectomy in 08/10/2019 and adipex 06/04/23;ph monitoring device showed acid exposure 12.4%, longest time for acid exposure 44.6 minutes, DeMeester score 44.2 06/04/23; EGD;No gross lesions in the entire esophagus. 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 - Normal second portion of the duodenum. - The BERGERON pH capsule was deployed. - No specimens collected. 11/20/23; negative H.pylori 11/20/23: hemoglobin A1c 5.6 Has follow up with sleep clinic 02/07/24. Will be seeing Briatric surgeon once has finished with check list for approval Right ankle pain ; present for one month. Awakens patient at night. No injury or falls. Pain described as achy/sharp pain. Worse with weight bearing. Improves with ice and elevation Objective Review of Systems Constitutional: Positive for unexpected weight change (3 pound gain). Negative for activity change, appetite change, chills, diaphoresis, fatigue and fever. HENT: Negative for congestion, ear discharge, ear pain, facial swelling, mouth sores, postnasal drip, rhinorrhea, sinus pressure, sinus pain, sore throat, tinnitus, trouble swallowing and voice change. Eyes: Negative for redness and itching. Respiratory: Negative for apnea, cough, choking, chest tightness, shortness of breath, wheezing and stridor. Cardiovascular: Positive for leg swelling. Negative for chest pain and palpitations. Gastrointestinal: Negative for abdominal distention, abdominal pain, anal bleeding, blood in stool, constipation, diarrhea, nausea, rectal pain and vomiting. Endocrine: Negative for cold intolerance, heat intolerance, polydipsia, polyphagia and polyuria. Genitourinary: Negative for difficulty urinating, dysuria, enuresis, frequency and urgency. Musculoskeletal: Negative for arthralgias, back pain and myalgias. Skin: Negative for rash. Allergic/Immunologic: Positive for environmental allergies. Negative for food allergies. Neurological: Negative for dizziness, tremors, seizures, syncope, facial asymmetry, speech difficulty, weakness, light-headedness, numbness and headaches. Hematological: Negative for adenopathy. Bruises/bleeds easily. Psychiatric/Behavioral: Negative for confusion and dysphoric mood. Psych Review of Symptoms: Depressive Symptoms: No fatigue. Elimination Symptoms: No constipation. Vitals: Blood pressure 118/60, pulse 68, temperature 98 F (36.7 C), temperature source Oral, resp. rate 12, height 1.702 m (5' 7 ), weight 109.9 kg (242 lb 3.2 oz), SpO2 96%. Physical Exam Constitutional: General: He is not in acute distress. Appearance: Normal appearance. He is not ill-appearing, toxic-appearing or diaphoretic. HENT: Head: Normocephalic and atraumatic. Right Ear: Tympanic membrane, ear canal and external ear normal. There is no impacted cerumen. Left Ear: Tympanic membrane, ear canal and external ear normal. There is no impacted cerumen. Nose: Congestion present. Mouth/Throat: Mouth: Mucous membranes are moist. Pharynx: Oropharynx is clear. No oropharyngeal exudate or posterior oropharyngeal erythema. Eyes: General: Lids are normal. No scleral icterus. Right eye: No discharge. Left eye: No discharge. Extraocular Movements: Extraocular movements intact. Conjunctiva/sclera: Conjunctivae normal. Pupils: Pupils are equal, round, and reactive to light. Neck: Thyroid: No thyromegaly. Vascular: No carotid bruit or JVD. Trachea: No tracheal deviation. Cardiovascular: Rate and Rhythm: Normal rate and regular rhythm. Pulses: Normal pulses. Dorsalis pedis pulses are 2+ on the right side and 2+ on the left side. Posterior tibial pulses are 2+ on the right side and 2+ on the left side. Heart sounds: S1 normal and S2 normal. No murmur heard. No friction rub. No gallop. No S3 or S4 sounds. Pulmonary: Effort: Pulmonary effort is normal. No respiratory distress. Breath sounds: Normal breath sounds. No stridor. No wheezing, rhonchi or rales. Chest: Chest wall: No tenderness. Abdominal: General: Abdomen is flat. Bowel sounds are normal. There is no distension. Palpations: Abdomen is soft. There is no mass. Tenderness: There is no abdominal tenderness. There is right CVA tenderness. There is no left CVA tenderness, guarding or rebound. Hernia: A hernia (reducible ventral) is present. Musculoskeletal: General: No tenderness. Cervical back: Normal range of motion and neck supple. No rigidity or tenderness. No muscular tenderness. Right lower leg: Edema (trace pedal edema) present. Left lower leg: Edema (trace pedal edema) present. Lymphadenopathy: Cervical: No cervical adenopathy. Skin: General: Skin is warm. Neurological: General: No focal deficit present. Mental Status: He is alert and oriented to person, place, and time. Psychiatric: Mood and Affect: Mood normal. Behavior: Behavior normal. Neurological Exam Mental Status Alert. Oriented to person, place, and time. Cranial Nerves CN III, IV, : Extraocular movements intact bilaterally. Normal lids and orbits bilaterally. Pupils equal round and reactive to light bilaterally. Right Ankle Exam Tenderness The patient is experiencing tenderness in the ATF and lateral malleolus. Range of Motion Dorsiflexion: normal Plantar flexion: normal Eversion: normal Inversion: abnormal Muscle Strength The patient has normal right ankle strength. Tests Anterior drawer: negative Varus tilt: negative Other Erythema: absent Scars: absent Sensation: normal Pulse: present Assessment and Plan Morbid obesity with uncontrolled GERd. Patient failed diet and exercise . Gained 4 pounds in last month. Patient due to foot pain unable to exercise hard. Patient would be a candidate for weight loss surgery due to hypertension, chronic kidney disease, obesity, GERD, sleep apnea, and right knee osteoarthritis. Call surgeon to set up follow up GERD uncontrolled despite taking pantoprazole 40 mg twice a day Hypertension ; controlled Sleep apnea. Seeing sleep specialist in 02/07/24. Right ankle pain. Concerned for fracture. Will get x-ray of right ankle. If no fracture, then will refer to physical therapy documented in this encounter [facility] 01-15-2024 Instructions Sushila Saravia MD - 01/15/2024 11:00 AM EDT Morbid obesity with uncontrolled GERd. Patient failed diet and exercise . Gained 4 pounds in last month. Patient due to foot pain unable to exercise hard. Patient would be a candidate for weight loss surgery due to hypertension, chronic kidney disease, obesity, GERD, sleep apnea, and right knee osteoarthritis. Call surgeon to set up follow up GERD uncontrolled despite taking pantoprazole 40 mg twice a day Hypertension ; controlled Sleep apnea. Seeing sleep specialist in 02/07/24. Right ankle pain. Concerned for fracture. Will get x-ray of right ankle. If no fracture, then will refer to physical therapy documented in this encounter [facility] 12-25-2023 History of Present illness Narrative This MA verified the patients name and date of . Lino Fontenot is a 58 y.o. male who comes in for consultation regarding recent diagnosis of sleep apnea . Previous sleep study: Yes Positive airway pressure (PAP) device use: No Onset of symptoms was years ago. He goes to bed at 2200 on weekdays and 2300 on weekends. He awakens at 1700 on weekdays and 1800 on weekends. He estimates a total sleep time of 5 hours each night. He falls asleep in 10 minutes, and awakens 0 times per night. Naps: No ( [ ] per week for [ ] min). Abnormal work hours (outside 6 am-7 pm): No. Sleep disordered breathing symptoms (last month) Loud Snoring Never Snorting or gasping Never Breathing stops, chokes, or struggles Never Sleepiness and fatigue frequency (last month) Tired upon awakening Never Very sleepy during the day Never Involuntarialy falling asleep Never Tired or Fatigued Never Fallen asleep driving Never Insomnia severity (last month). Currently having any of the following: No Difficulty falling asleep Difficulty staying asleep Problems waking up too early Abnormal behaviors frequency (last month) Problems disturb bed partner s sleep Never Unusual behaviors during sleep Never Kicking while asleep 5-7 times a week Acting out dreams Never Violent behaviors while asleep Never Hypnagogic hallucinations Never Sleep paralysis Never Cataplexy (ever experienced) No Restless Leg Symptoms (Ever had these symptoms) Unpleasant sensations in legs and urge to move Yes Feelings in your legs occur mainly or only at rest Yes Feelings in your legs improve with movement Yes Feelings worse in the evening or night than in the morning Yes Past Medical History He has a past medical history of [...] disease (1999), Snoring, and Umbilical hernia. Past Family History family history includes Alzheimer's in his maternal grandmother; Diabetes in his father and sister; Hypertension in his mother; Kidney Disease in his mother; Other - Specify in his maternal grandfather. Past Social History He reports that he quit smoking about 24 years ago. His smoking use included cigarettes. He started smoking about 41 years ago. He has a 20 pack-year smoking history. He has never been exposed to tobacco smoke. He has never used smokeless tobacco. He reports that he does not drink alcohol and does not use drugs. Caffeine intake is [ 0 ] drinks per day, up until [ ] hours before bed. Past Surgical History has a past surgical history that includes cholecystectomy (2004); shoulder surgery (Left, 2007); knee surgery (Left, 1992); hernia repair (Right, 01/08/2012); creation arteriovenous fistula w/ autogenous graft (Left, 2009); tonsillectomy; kidney transplant w/o [place] nephrectomy (N/A, 09/25/2016); pr arthroscopy knee meniscal trnsplj med/lat (Right, 11/12/2014); adenoidectomy; hernia repair (01/08/2012); creation arteriovenous fistula w/ nonautogenous graft (2009); repair hernia umbilical open w/ mesh (N/A, 05/09/2017); excision fistula lactiferous duct; laparotomy exploratory (N/A, 02/27/2019); hernia repair (02/27/2019); egd diagnostic (N/A, 04/24/2019); gastrectomy longitudinal (sleeve) laparoscopic (N/A, 08/10/2019); egd diagnostic (N/A, 08/10/2019); appendectomy laparoscopic (N/A, 12/26/2019); nephrectomy open (Bilateral, 01/23/2022); and nephrectomy (2021). Allergies He is allergic to nsaids and *seasonal. Medications He has a current medication list which includes the following prescription(s): alclometasone dipropionate, aspirin, calcium citrate, carbamazepine, cetirizine, chlorthalidone, cyanocobalamin, escitalopram, ketoconazole, losartan, magnesium oxide, montelukast, multivitamins, mycophenolate sodium, olanzapine, pantoprazole, ropinirole, sildenafil citrate, sodium zirconium cyclosilicate, tacrolimus, and terbinafine. Review of Systems Weight has had [ 15 lbs gained], [ lbs lost] in the last year. Patient reported positive symptoms in the past month include: Swelling in the ankles or legs, Heartburn All other systems are negative. Physical Exam height is 1.702 m (5' 7 ) and weight is 107.4 kg (236 lb 11.2 oz). His blood pressure is 122/68 and his pulse is 60. His oxygen saturation is 98%. Body mass index is 37.07 kg/m . Neck Circumference (in): 16 General: alert and oriented, no apparent distress HEENT: Nose: Septum: midline; Mucosa: nl Tongue: Ridging: Yes: Overjet: No Lateral Peritonsilar narrowing: Yes: Retrognathia: No Mallampati Score: III Neck: Goiter: No Chest: Auscultation: clear to auscultation with no crackles or wheezing Heart: RRR: No murmurs, rubs or gallops Ext: Edema: No Clubbing: No Neuro: normal gait, no tremor, alert and oriented Diagnostic Review:I personally reviewed the following tests today: 10/2023 HSAT showed an apnea hypopnea index of 8.6/hour 03/10/2019 11:00 AM 06/05/2019 3:00 PM 12/18/2023 2:24 PM Sleep Medicine Patient Reported Outcomes ESS 9 ESS (manually scored) 3 7 FOSQ 18 FOSQ (manually scored) 20 17.5 IRLS 12 MVAP 0.729 Assessment and Plan The encounter diagnosis was Obstructive sleep apnea (adult) (pediatric) [G47.33]. He has a history of comorbid depression and is post renal transplant. He is currently undergoing an evaluation for possible bariatric surgery. 1. He has mild obstructive sleep apnea with depression. He is currently undergoing an evaluation for possible bariatric surgery. 2. Ordering autotitrating CPAP. He will use [employer]. He understands that untreated DEMI is associated with heart failure, atrial fibrillation, strokes, HTN, and impaired glucose tolerance. 3. He should avoid respiratory suppressants as these can worsen sleep disordered breathing. 4. 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 A handout on drowsy driving tips was given to the patient. 5.Return in about 3 weeks (around 01/15/2024) for follow up with one of the BRITTNY's (video visit is fine). At that time we will discuss his study results and tolerance of therapy if indicated. 6. Weight loss is associated with improvement in sleep disordered breathing. Lino Fontenot should exercise regularly and watch his diet. documented in this encounter [facility] 12-25-2023 Instructions Cait Richardson MD - 12/25/2023 8:30 AM EDT [employer] 4.7(509) [facility] DEMI Education: You have obstructive sleep apnea (DEMI): 1. Obstructive sleep apnea (DEMI) is a condition where the upper airway narrows or closes intermittently during sleep. This can lead to drops in your oxygen levels during sleep, arousals from sleep, and excessive daytime sleepiness. 2. Untreated DEMI is associated with increased risk of hypertension, cardiac disease, myocardial infarction, stroke, and poor blood sugar control. Treating your DEMI can decrease these risks. 3. Weight loss does improve sleep apnea. It is important to have a healthy diet and an exercise program. 4. Alcohol and sedating medicine can make DEMI worse and should be avoided in particular before sleep. 5. If you have surgery or are hospitalized, tell your doctor that you have DEMI and bring your CPAP to the hospital. 6. If you are drowsy or sleepy, you should not drive. If you are driving and become drowsy or sleepy, you should conductor pullman to a safe place. Below are our drowsy driving tips. PAP Machine Care: You should clean your PAP regularly (see your PAP yarn cleaner site for more details) Daily cleaning 1. Wipe mask with a damp towel with mild detergent, rinse with a damp towel and let air dry. You can also use CPAP cleaning wipes. Avoid harsh cleaning wipes or chemicals. 2. Humidifier- empty water daily. Fill with clean distilled water before use before sleep. Weekly Cleaning 1. Clean the mask and tubing weekly with mild dish soap and water. 2. Fill your sink with warm water and a few drops of mild dish soap. Swirl equipment for at least 5 minutes. Rinse well and air dry. Hang hose over something so the water droplets drip out. 3. Clean filter- disposable filters should be changed once a month. 4. Humidifier- Disinfect in solution that is one part vinegar and 5 parts water for 30 min. Thoroughly rinse after. Ask your medical equipment company about renewal of your supplies. At the very least- this should be done once a year. Weight Loss Weight Loss is an important part of treating obstructive sleep apnea. Being at a healthy weight is improtant to prevent and/or facilitate treatment of chronic conditions such as heart disease and diabetes in addition to obstructive sleep apnea. This is optimally achieved through a healthy diet and exercise program that can be maintained [employer]. [facility] does have a Living Well Program to help patients achieve their weight loss goals in a healthy and safe manor. This consists of a 6 month program that focuses on weight loss, nutrition, stress management and exercise. [email or web address] Wellness and Prevention First floor of the [place] [address] For more information please call [phone]. documented in this encounter [facility] 12-04-2023 History of Present illness Narrative Nurse Note: Review of Systems Constitutional: Negative for chills, fatigue, fever and unexpected weight change. HENT: Negative for congestion, ear pain, nosebleeds, postnasal drip, rhinorrhea, sinus pressure, sinus pain, sneezing and sore throat. Eyes: Negative for pain, discharge, redness and itching. Respiratory: Negative for cough, chest tightness, shortness of breath and wheezing. Cardiovascular: Positive for leg swelling. Negative for chest pain and palpitations. Gastrointestinal: Negative for abdominal pain, constipation, diarrhea, nausea and vomiting. Genitourinary: Negative for dysuria, frequency, hematuria and urgency. Skin: Negative for rash. Allergic/Immunologic: Negative for environmental allergies. Neurological: Negative for dizziness and headaches. Psychiatric/Behavioral: Negative for agitation and sleep disturbance. The patient is not nervous/anxious. Nursing Assessment: Physical Exam Weight Management: Camilo is here for weight management for bariatric surgery. Paperwork has been faxed over. Subjective History of Present Illness 58 year old white male with past medical history status post kidney transplant on 09/25/16 due to polycystic kidney disease, restless leg syndrome, former smoker with last use 24 years ago, HTN, immunosuppression, obesity, hyperparathyroidism, allergies, depression, ckd III, anxiety, and status laparoscopic sleeve gastrectomy in 08/10/2019 presenting for obesity and possible weight loss surgery Patient seen PUDDLER HELPER suzanne Penn on 09/30/23. Patient's highest weight on 07/06/2019 was 261. After surgery , weight dropped to 194 on 04/21/21. Weight now has increased to 237 on 12/04/23. Patient has been eating small portions with about 1600 caloric intake. Has been exercising 3 times a week for 1 to 1 1/2 hours. Patient drinking about 60 ounces of water a day. Does not drink pop.avoiding nsaids at this time except for 81 mg a day. Patient having sever GERD symptoms. Symptoms occurring daily despite taking pantoprazole 40 mg twice a day. Has mid chest burning with burning in back of throat with nausea and foul taste in posterior pharynx.coughing with GERD symptoms.has good appetite.Patient denies any bloating, burping , melena, abdominal pain, vomiting, chest pain, shortness of breath at rest or exertion, worsening of leg swelling or syncope. 8 pound gain since 09/30/23. Status post status laparoscopic sleeve gastrectomy in 08/10/2019 and adipex 06/04/23;ph monitoring device showed acid exposure 12.4%, longest time for acid exposure 44.6 minutes, DeMeester score 44.2 06/04/23; EGD;No gross lesions in the entire esophagus. 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 - Normal second portion of the duodenum. - The BERGERON pH capsule was deployed. - No specimens collected. 11/20/23; negative H.pylori 11/20/23: hemoglobin A1c 5.6 09/30/23; negative for nicotine metabolites, , vitamin D 41. Vitamin b12 513, thiamin 159, vitamin A 106, PTH 76 was 196, normal iron 91, transferrin 236, folate 44.78, ferritin 381.3. sodium 141, potassium 5.0, chloride 105, creatinine 1.72 with GFR 46. Normal liver function. Normal white blood cell 8.38, hemoglobin 12.2, hematocrit 37.8 and platelet count 191 Objective Review of Systems Constitutional: Positive for fatigue (occasional fatigue). Negative for activity change, appetite change, chills, diaphoresis, fever and unexpected weight change. HENT: Negative for congestion, ear discharge, ear pain, facial swelling, mouth sores, postnasal drip, rhinorrhea, sinus pressure, sinus pain, sore throat, tinnitus, trouble swallowing and voice change. Eyes: Negative for redness and itching. Respiratory: Negative for apnea, cough, choking, chest tightness, shortness of breath, wheezing and stridor. Cardiovascular: Positive for leg swelling (unchanged leg swelling). Negative for chest pain and palpitations. Gastrointestinal: Negative for abdominal distention, abdominal pain, anal bleeding, blood in stool, constipation, diarrhea, nausea, rectal pain and vomiting. Endocrine: Negative for cold intolerance, heat intolerance, polydipsia, polyphagia and polyuria. Genitourinary: Negative for difficulty urinating, dysuria, enuresis, frequency and urgency. Musculoskeletal: Negative for arthralgias, back pain and myalgias. Skin: Negative for rash. Allergic/Immunologic: Negative for food allergies. Neurological: Negative for dizziness, tremors, seizures, syncope, facial asymmetry, speech difficulty, weakness, light-headedness, numbness and headaches. Hematological: Negative for adenopathy. Psychiatric/Behavioral: Negative for confusion and dysphoric mood. Psych Review of Symptoms: Depressive Symptoms: Fatigue (occasional fatigue). Elimination Symptoms: No constipation. Vitals: Blood pressure 94/68, pulse 71, temperature 98.8 F (37.1 C), resp. rate 18, height 1.702 m (5' 7 ), weight 107.8 kg (237 lb 9.6 oz), SpO2 97%. Physical Exam Constitutional: General: He is not in acute distress. Appearance: Normal appearance. He is not ill-appearing, toxic-appearing or diaphoretic. HENT: Head: Normocephalic and atraumatic. Right Ear: Tympanic membrane, ear canal and external ear normal. There is impacted cerumen. Left Ear: Tympanic membrane, ear canal and external ear normal. There is no impacted cerumen. Nose: Congestion present. No rhinorrhea. Mouth/Throat: Mouth: Mucous membranes are moist. Pharynx: Oropharynx is clear. No oropharyngeal exudate or posterior oropharyngeal erythema. Eyes: General: Lids are normal. No scleral icterus. Right eye: No discharge. Left eye: No discharge. Extraocular Movements: Extraocular movements intact. Conjunctiva/sclera: Conjunctivae normal. Pupils: Pupils are equal, round, and reactive to light. Neck: Thyroid: No thyromegaly. Vascular: No carotid bruit or JVD. Trachea: No tracheal deviation. Cardiovascular: Rate and Rhythm: Normal rate and regular rhythm. Pulses: Normal pulses. Dorsalis pedis pulses are 2+ on the right side and 2+ on the left side. Posterior tibial pulses are 2+ on the right side and 2+ on the left side. Heart sounds: Normal heart sounds, S1 normal and S2 normal. No murmur heard. No friction rub. No gallop. No S3 or S4 sounds. Comments: No jvd or bruit Pulmonary: Effort: Pulmonary effort is normal. No respiratory distress. Breath sounds: Normal breath sounds. No stridor. No wheezing, rhonchi or rales. Chest: Chest wall: No tenderness. Abdominal: General: Abdomen is flat. Bowel sounds are normal. There is no distension. Palpations: Abdomen is soft. There is no mass. Tenderness: There is no abdominal tenderness. There is no right CVA tenderness, left CVA tenderness, guarding or rebound. Hernia: No hernia is present. Comments: Right upper quadrant scare with fullness at site Musculoskeletal: General: No tenderness. Cervical back: Normal range of motion and neck supple. No rigidity or tenderness. No muscular tenderness. Right lower leg: Edema (trace ankle edema) present. Left lower leg: Edema (trace ankle edema) present. Lymphadenopathy: Cervical: No cervical adenopathy. Skin: General: Skin is warm. Neurological: General: No focal deficit present. Mental Status: He is alert and oriented to person, place, and time. Psychiatric: Mood and Affect: Mood normal. Behavior: Behavior normal. Neurological Exam Mental Status Alert. Oriented to person, place, and time. Cranial Nerves CN III, IV, : Extraocular movements intact bilaterally. Normal lids and orbits bilaterally. Pupils equal round and reactive to light bilaterally. Assessment and Plan Morbid obesity along with uncontrolled GERD. Positive ph monitoring system. Patient has negative EGD. Negative h.pylori. sleep study pending. Status post laparoscopic sleev gastrectomy in 08/2019. Patient has hypertension at this time controlled. Advise to exercise moderately 150 minutes a week, monitor diet and keep caloric intake below 1500. Follow up in one month to check weight. With continue obesity and GERD symptoms, patient at risk of developing rodriguez's esophagitis, arthritis, heart disease, diabetes, etc. documented in this encounter [facility] 12-04-2023 Instructions Sushila Saravia MD - 12/04/2023 11:00 AM EDT Morbid obesity along with uncontrolled GERD. Positive ph monitoring system. Patient has negative EGD. Negative h.pylori. sleep study pending. Status post laparoscopic sleev gastrectomy in 08/2019. Patient has hypertension at this time controlled. Advise to exercise moderately 150 minutes a week, monitor diet and keep caloric intake below 1500. Follow up in one month to check weight. With continue obesity and GERD symptoms, patient at risk of developing rodriguez's esophagitis, arthritis, heart disease, diabetes, etc. documented in this encounter [facility] 12-04-2023 Procedure note Associated Ord er(s): EAR CERUMEN REMOVAL Post-Procedure Diagnose(s): Right ear impacted cerumen EAR CERUMEN REMOVAL Date/Time: 12/04/2023 11:00 AM Performed by: Sushila Saravia MD Authorized by: Sushila Saravia MD Procedure: Visualization: otoscopy Impaction noted: yes Location details: Right ear Procedure type: curette Patient tolerance: Tolerated well, no immediate complications [facility] 12-04-2023 Procedure note Associated Ord er(s): EAR CERUMEN REMOVAL Post-Procedure Diagnose(s): Right ear impacted cerumen EAR CERUMEN REMOVAL Date/Time: 12/04/2023 11:00 AM Performed by: Sushila Saravia MD Authorized by: Sushila Saravia MD Procedure: Visualization: otoscopy Impaction noted: yes Location details: Right ear Procedure type: curette Patient tolerance: Tolerated well, no immediate complications documented in this encounter [facility] 11-15-2023 History of Present illness Narrative Encounter for [facility] Home Sleep Apnea Test Patient has completed home sleep testing through [facility]. The data has been reviewed and sent to the interpreting physician. documented in this encounter [facility] 11-15-2023 History of Present illness Narrative Encounter for [facility] Home Sleep Apnea Test Patient has completed home sleep testing through [facility]. The data has been reviewed and sent to the interpreting physician. documented in this encounter [facility] 11-08-2023 History of Present illness Narrative Images from the original note were not included. HSAT ordered by Caty Penn during office visit on 09/30/2023 DX - DEMI Previously DX. Please review. I reviewed the request for the sleep study. The patient was evaluated by the requesting provider and the indication for the study is appropriate. I concur with the planned study. Additional information for the sleep study include: none Talat Carbajal M.D. Professor of Internal Medicine and Neuroscience Division of Pulmonary, Allergy, Critical Care, and Sleep Medicine Director, Sleep Disorders Center [facility] FAX: [phone] Email: [email or web address] documented in this encounter [facility] 09-30-2023 History of Present illness Narrative Presents [...] Yes [] No, Provided Website to review: [email or web address] 3. Is interested in the: [] Sleeve [...] Screening Assessment completed [x] Yes [] No SENIOR MOBILE WEB DEVELOPER vs MD Visit General Visit Information: Reinforced instruction on the following as needed: 1. Pt instructed to consider self as an applicant for surgery. Pt will become a candidate for surgery when all initial Providers (SENIOR MOBILE WEB DEVELOPER/RD/Psychologist) have approved the patient to move forward. 2. Notified that all bariatric surgeries are elective. Instructed that will see either medical records director or CORE CUTTER AND REAMER-PUDDLER HELPER today. Currently, RD and Psychologist may both be completed remotely for initial evaluation of surgical requirements if not already completed. 3. Will see Surgeon MD at a pre-operative visit after completing surgery requirements. 4. Expect that a Financial Furnace Installer will be in contact within the next 2 weeks and will assist with insurance requirements and programming navigation. The coordinator will follow the pt from the point of contact through surgical approval and scheduling. 5. Testing plan: If a Lab draw is requested today, [facility] Done if none has been completed within the last 6 months, or if otherwise indicated. Call Center Instruction: 1. There are no direct department calls. When calling the office ([phone]), the Call Center staff will notify the appropriate parties. 2. Encouraged the use of MY Chart and assisted with set up as needed. 3. Instructed and demonstrated as needed: sign up for [facility] [phone] text message appointment reminders as applicable. 4. Reminded that the clinic office is open for calls M-F between 8:00am and 3:30pm. There is a Bariatric Surgery resident microelectronics engineer after this at [phone] Pt has 24 hour 7 days per week access to assistance. Assigned Clinic RN Instruction: An assigned clinic nurse will follow pt care along with today's Provider as of this date and throughout pre and postoperative care. A nurse is generally the initial person to receive the MY Chart and Call Center messages for the physicians and SENIOR MOBILE WEB DEVELOPER's. These messages are triaged and answered by the nurse and forwarded on to a Provider as needed. Lab review process 1. Pt may see testing results in MYCHART. In general, pts will receive a call, GI TrackHART message, or letter from the Provider after [...] have the order placed. Language Preference [x] Micronesian [] Other: Badge Number of Division Sales Manager: Orientation [x] Oriented to room and space [...] early adult years - after leaving the [employer] & they have tried the following to lose weight: bariatric surgery (sleeve). phentermine (Adipex/Lomaira) - limited in dosing due to kidney disease / s/p renal transplant; couldn't use top or Well due to renal fxn. 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 Social History Tobacco [...] more: HIGH risk of sleep apnea; Reference: Ran Marquez, Fred P, et al. High STOP-Bang score [...] Absent. Psychiatric: Affect appropriate for situation. Assessment: Lino Fontenot is requesting consideration for is interested in [...] [] Insurance/Program Requirements per our Program Financial Furnace Installer. All patients will be checked for nicotine/cotinine [...] surgery increases risk for stricture and ulcer. [facility]'s Bariatric Surgery website is here: [email or web address] Link to watch [facility] Bariatric Surgery info session is here: [email or web address] Link to watch Dr. Santos's interview with a patient is here: [email or web address] Phone numbers for scheduling [facility] Cardiology & ECG [phone]. [facility] Pulmonary & Sleep Medicine (pulmonary consult, sleep studies, sleep consult): [phone]. EGD [phone], option 2. Comprehensive Weight Management Nurse Practitioner, Dietitian, Psychologist or Local Government Legislator appointments: [phone]. Caty Penn APRN-TAMY, with surgeons Griselda Moore, Maikel Frank, Schuyler Sparks, Danny Ireland, [...] scanned into IHIS. documented in this encounter [facility] 2023 Nurse Surgical operation note MD armando to DC. IV removed. DC teaching reviewed. Pt declines help getting dressed. Family present. [facility] 2023 Nurse Note MD armando to HELADIO. IV removed. DC teaching reviewed. Pt declines help getting dressed. Family present. documented in this encounter [facility] 2023 Nurse Note Sedation vitals and monitoring provided by anesthesia. [facility] 2023 Miscellaneous Notes Sedation vitals and monitoring [...] recorder via UPS. documented in this encounter [facility] 2023 History and physical note ENDOSCOPIC PREPROCEDURE HISTORY AND PHYSICAL HISTORY OF PRESENT ILLNESS: Lino Fontenot is a 58 y.o. male seen in the pre-procedure area at [facility]. The indication for endoscopic evaluation [...] Bilateral; Surgeon: Charley Mccracken MD, PhD; Location: [facility] MAIN OR NEPHRECTOMY 2021 APPENDECTOMY LAPAROSCOPIC N/A 12/26/2019 Laterality: N/A; Surgeon: Rosy Lynn DO; Location: [facility] MAIN OR GASTRECTOMY LONGITUDINAL (SLEEVE) LAPAROSCOPIC N/A 08/10/2019 Laterality: N/A; Surgeon: Griselda Moore MD; Location: [facility] SAME DAY SURGERY MAIN OR EGD DIAGNOSTIC N/A 08/10/2019 Laterality: N/A; Surgeon: Griselda Moore MD; Location: [facility] SAME DAY SURGERY MAIN OR EGD DIAGNOSTIC N/A 04/24/2019 Laterality: N/A; Surgeon: Nahomy Santos MD; Location: [facility] ENDOSCOPY LAPAROTOMY EXPLORATORY N/A 02/27/2019 Laterality: N/A; Surgeon: Raul Lott MD; Location: [facility] MAIN OR HERNIA REPAIR 02/27/2019 REPAIR HERNIA UMBILICAL OPEN W/ MESH N/A 05/09/2017 Laterality: N/A; Surgeon: CORNEL Elizondo; Location: [facility] MAIN OR KIDNEY TRANSPLANT W/O AKIAK NEPHRECTOMY N/A 09/25/2016 Laterality: N/A; Surgeon: Jose Shaw MD; Location: [facility] MAIN OR DE KNEE SCOPE, MENISC TRANSPLANT Right 11/12/2014 right [...] respiratory distress. ABDOMEN: Soft, nontender, nondistended ASSESSMENT: Lino Fontenot is a 58 y.o. male is ready for the planned procedure. ASA Class: ASA 2 - Patient with mild systemic disease with no functional limitations PLAN: Will plan to proceed with BERGERON PH INTERVENTIONAL UPPER ENDOSCOPY using Monitored Anesthesia Care. Schuyler Sparks MD [facility] Work Phone: 2023 History and physical note ENDOSCOPIC PREPROCEDURE HISTORY AND PHYSICAL HISTORY OF PRESENT ILLNESS: Lino Fontenot is a 58 y.o. male seen in the pre-procedure area at [facility]. The indication for endoscopic evaluation [...] Bilateral; Surgeon: Charley Mccracken MD, PhD; Location: [facility] MAIN OR NEPHRECTOMY 2021 APPENDECTOMY LAPAROSCOPIC N/A 12/26/2019 Laterality: N/A; Surgeon: Rosy Lynn DO; Location: [facility] MAIN OR GASTRECTOMY LONGITUDINAL (SLEEVE) LAPAROSCOPIC N/A 08/10/2019 Laterality: N/A; Surgeon: Griselda Moore MD; Location: [facility] SAME DAY SURGERY MAIN OR EGD DIAGNOSTIC N/A 08/10/2019 Laterality: N/A; Surgeon: Griselda Moore MD; Location: [facility] SAME DAY SURGERY MAIN OR EGD DIAGNOSTIC N/A 04/24/2019 Laterality: N/A; Surgeon: Nahomy Santos MD; Location: [facility] ENDOSCOPY LAPAROTOMY EXPLORATORY N/A 02/27/2019 Laterality: N/A; Surgeon: Raul Lott MD; Location: [facility] MAIN OR HERNIA REPAIR 02/27/2019 REPAIR HERNIA UMBILICAL OPEN W/ MESH N/A 05/09/2017 Laterality: N/A; Surgeon: CORNEL Elizondo; Location: [facility] MAIN OR KIDNEY TRANSPLANT W/O AKIAK NEPHRECTOMY N/A 09/25/2016 Laterality: N/A; Surgeon: Jose Shaw MD; Location: [facility] MAIN OR DE KNEE SCOPE, MENISC TRANSPLANT Right 11/12/2014 right [...] respiratory distress. ABDOMEN: Soft, nontender, nondistended ASSESSMENT: Lino Fontenot is a 58 y.o. male is ready for the planned procedure. ASA Class: ASA 2 - Patient with mild systemic disease with no functional limitations PLAN: Will plan to proceed with BERGERON PH INTERVENTIONAL UPPER ENDOSCOPY using Monitored Anesthesia Care. Schuyler Sparks MD documented in this encounter [facility] 2023 Nurse Note Bergeron teaching done with pt. He has been off of PPI x 1 week and has no stated nickel allergy. Pt states his worst symptoms are reflux and heartburn. He was taught how to record these, plus meals and sleep. Pt voices understanding. Box was given to return recorder via UPS. [facility] 05-28-2023 History of Present illness Narrative -Referring Provider for today's consult: Self, Self CC: Chief Complaint Patient presents with Skin Exam HPI: Lino Fontenot is an 57 y.o. year old male [...] MD, in the presence of a medical supervisor post wave. [x] A full body skin exam was [...] Neoplasm of uncertain behavior of skin D48.5 DE SHAV SKIN LES 0.6-1CM TRUNK,ARM,LEG SURG PATH [...] prescriptions requested or ordered in this encounter Sarah Pacheco LPN , served as a scribe and medical supervisor post wave for this exam/procedure on 05/28/2023 This exam/procedure was conducted by Aliza Davis MD in the presence of a medical supervisor post wave I have reviewed this documentation scribed above and it is accurate as of 05/28/2023 12:25 PM Aliza Davis MD It Programmer Division of Dermatology [facility] documented in this encounter [facility] 05-28-2023 Instructions Sarah Guerra - 05/28/2023 11:00 [...] oxide). Some that I recommend include: - Cape Verdean Gold Botanical Mineral Sunscreen - SPF 30 or 50 - Aveeno Baby Continuous Protection Zinc Oxide Mineral Sunscreen - SPF 50 - Aveeno Mineral Sensitive Skin Sunscreen - SPF 50 - Bare Republic Mineral Body Lotion - SPF50 - [place]eli-Posay Anthelios Body And Face Soft Finish Mineral [...] within fourteen days. Results are autoreleased on [email or web address] before being reviewed by the physician. Please [...] pressure on the wound and call your statement request clerk or go to your local emergency room. Pain: Local anesthesia will wear off in approximately 1-3 hours. The area may burn, throb, feel tender or sore but should NOT be excruciatingly painful. If your wound hurts, take Tylenol or Extra-Strength Tylenol (acetaminophen) as directed on bottle, as needed. If Tylenol does not control the pain, alternate between Tylenol and Ibuprofen Call your statement request clerk for pain not controlled by Tylenol and [...] removed (over the counter) Who to call [facility] Dermatology at for problems Saturday through Saturday in the morning or afternoon. For Urgent problems in the evenings or after hours, call the hospital non licensed operator at and ask for the Morphologist microelectronics engineer. TEST RESULTS: We will make every effort to communicate your biopsy test results within ten business days. Certain results may take longer, but are usually received within fourteen days. Results are autoreleased on [email or web address] before being reviewed by the physician. Please allow 3 business days after results are released for the physician to review results and determine management. Your results will be communicated to you in one of three ways; Mailed to you ShoutEm Message Reviewed with you over the phone If you have any questions about your visit today or your tests, please call us at [phone] Option 4. Please wait 14 days prior to calling for test results This flipbook was created as a guide to Mohs micrographic surgery, but it has helpful information about healing towards the end. documented in this encounter [facility] 04-22-2023 History of Present illness Narrative Date [...] his ankle. He was seen in the [place] [facility] on March 11, 2023, a [...] Bilateral; Surgeon: Charley Mccracken MD, PhD; Location: [facility] MAIN OR NEPHRECTOMY 2021 APPENDECTOMY LAPAROSCOPIC N/A 12/26/2019 Laterality: N/A; Surgeon: Rosy Lynn DO; Location: [facility] MAIN OR GASTRECTOMY LONGITUDINAL (SLEEVE) LAPAROSCOPIC N/A 08/10/2019 Laterality: N/A; Surgeon: Griselda Moore MD; Location: [facility] SAME DAY SURGERY MAIN OR EGD DIAGNOSTIC N/A 08/10/2019 Laterality: N/A; Surgeon: Griselda Moore MD; Location: [facility] SAME DAY SURGERY MAIN OR EGD DIAGNOSTIC N/A 04/24/2019 Laterality: N/A; Surgeon: Nahomy Santos MD; Location: [facility] ENDOSCOPY LAPAROTOMY EXPLORATORY N/A 02/27/2019 Laterality: N/A; Surgeon: Raul Lott MD; Location: [facility] MAIN OR HERNIA REPAIR 02/27/2019 REPAIR HERNIA UMBILICAL OPEN W/ MESH N/A 05/09/2017 Laterality: N/A; Surgeon: CORNEL Elizondo; Location: [facility] MAIN OR KIDNEY TRANSPLANT W/O AKIAK NEPHRECTOMY N/A 09/25/2016 Laterality: N/A; Surgeon: Jose Shaw MD; Location: [facility] MAIN OR DE KNEE SCOPE, MENISC TRANSPLANT Right 11/12/2014 right [...] as tolerated and he does physical therapy. (DOC:[id number]) Review of Systems Constitutional: Negative for chills, [...] diabetic *No dentures/partials documented in this encounter [facility] 04-16-2023 History of Present illness Narrative Subjective History of Present Illness Right Ankle Pain Lino Fontenot presents with ankle pain that started 03/10/2023. [...] elevation to help. documented in this encounter [facility] 03-11-2023 Emergency department Note Pts right foot wrapped in an jacky bandage. Pt verbalized understanding of DC instructions. He denied any further complaints and ambulated out of er [facility] 03-11-2023 Emergency department Note Pts right foot wrapped in an jacky bandage. Pt verbalized understanding of DC instructions. He denied any further complaints and ambulated out of er Emergency Department Report [facility] Service Date:.03/11/23 PCP: Mariana Miranda Chief Complaint: Chief Complaint Patient presents with Foot Pain Fell and injured inside of right foot at 1530 today. 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 male presents to [...] Surgeon: Charley Mccracken MD, PhD; Location: [facility] MAIN OR NEPHRECTOMY 2021 APPENDECTOMY LAPAROSCOPIC N/A 12/26/2019 Laterality: N/A; Surgeon: Rosy Lynn DO; Location: [facility] MAIN OR GASTRECTOMY LONGITUDINAL (SLEEVE) LAPAROSCOPIC N/A 08/10/2019 Laterality: N/A; Surgeon: Griselda Moore MD; Location: [facility] SAME DAY SURGERY MAIN OR EGD DIAGNOSTIC N/A 08/10/2019 Laterality: N/A; Surgeon: Griselda Moore MD; Location: [facility] SAME DAY SURGERY MAIN OR EGD DIAGNOSTIC N/A 04/24/2019 Laterality: N/A; Surgeon: Nahomy Santos MD; Location: [facility] ENDOSCOPY LAPAROTOMY EXPLORATORY N/A 02/27/2019 Laterality: N/A; Surgeon: Raul Lott MD; Location: [facility] MAIN OR HERNIA REPAIR 02/27/2019 REPAIR HERNIA UMBILICAL OPEN W/ MESH N/A 05/09/2017 Laterality: N/A; Surgeon: CORNEL Elizondo; Location: [facility] MAIN OR KIDNEY TRANSPLANT W/O AKIAK NEPHRECTOMY N/A 09/25/2016 Laterality: N/A; Surgeon: Jose Shaw MD; Location: [facility] MAIN OR DE KNEE SCOPE, MENISC TRANSPLANT Right 11/12/2014 right [...] pack to area. documented in this encounter [facility] 03-11-2023 Hospital Discharge instructions Jackson Shaffer [...] through Care Everywhere.Pain and Pain Control ([facility]) (Micronesian)Ankle Sprain (Micronesian)Ankle Sprain: Rehab Exercises (Micronesian)RICE: General Info (Micronesian)documented in this encounter [facility] 03-10-2023 Physician Emergency department Note Emergency Department Report [facility] Service Date:.03/11/23 PCP: Mariana Miranda Chief Complaint: Chief Complaint Patient presents with Foot Pain Fell and injured inside of right foot at 1530 today. 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 male presents to [...] Bilateral; Surgeon: Charley Mccracken MD, PhD; [facility] OR NEPHRECTOMY 2021 APPENDECTOMY LAPAROSCOPIC N/A 12/26/2019 Laterality: N/A; Surgeon: Rosy Lynn DO; Location: [facility] MAIN OR GASTRECTOMY LONGITUDINAL (SLEEVE) LAPAROSCOPIC N/A 08/10/2019 Laterality: N/A; Surgeon: Griselda Moore MD; Location: [facility] SAME DAY SURGERY MAIN OR EGD DIAGNOSTIC N/A 08/10/2019 Laterality: N/A; Surgeon: Griselda Moore MD; Location: [facility] SAME DAY SURGERY MAIN OR EGD DIAGNOSTIC N/A 04/24/2019 Laterality: N/A; Surgeon: Nahomy Santos MD; Location: [facility] ENDOSCOPY LAPAROTOMY EXPLORATORY N/A 02/27/2019 Laterality: N/A; Surgeon: Raul Lott MD; Location: [facility] MAIN OR HERNIA REPAIR 02/27/2019 REPAIR HERNIA UMBILICAL OPEN W/ MESH N/A 05/09/2017 Laterality: N/A; Surgeon: CORNEL Elizondo; Location: [facility] MAIN OR KIDNEY TRANSPLANT W/O AKIAK NEPHRECTOMY N/A 09/25/2016 Laterality: N/A; Surgeon: Jose Shaw MD; Location: [facility] MAIN OR DE KNEE SCOPE, MENISC TRANSPLANT Right 11/12/2014 right [...] . . Jackson Shaffer MD 03/11/23 0022 [facility] 03-10-2023 Emergency department Note Has rt inner foot/ankle pain. + Rt pedal pulse, moves toes easily. Fresh Ice pack to area. [facility] 12-10-2022 History of Present illness Narrative [facility] Clinic Follow-Up Visit: CC: Follow-up (Here to discuss weight loss medication. Had sleeve 2019. Kidney transplant [...] service. 28 minutes documented in this encounter [facility] 10-29-2022 History of Present illness Narrative History [...] for suture removal. Encouraged on continuing with lsia taping and encouraged on steri-strip. Will F/U as needed. To call/return if s/sx persist/worsen. documented in this encounter [facility] 10-26-2022 History of Present illness Narrative Images from the original note were not included. Patient Name: [facility] Location: Lino Fontenot [address] [facility] [address] Date Of : Date Of Visit: 1965 10/26/2022 MRN# Provider: [id number] Mary Moreira PA-C Chief Complaint Patient presents [...] dog that he knew. He presented to [facility] ED in [place]. The ED provider sutured a wound between [...] for this visit. documented in this encounter [facility] 10-24-2022 Emergency department Note Triple antibiotic ointment applied to laceration post suture. Non-stick dressing applied and wrapped with kerlix [facility] 10-24-2022 Emergency department Note Triple antibiotic ointment applied to laceration post suture. Non-stick dressing applied and wrapped with kerlix Cleansed laceration with hibiclens and sterile water, bleeding controlled. Emergency Department Report [facility] EMERGENCY MEDICINE Service Date:.10/24/22 PCP: Mariana Miranda Chief Complaint: No chief complaint on file. HPI Lino Fontenot is a 57 y.o. male presents to [...] Bilateral; Surgeon: Charley Mccracken MD, PhD; [facility] MAIN OR APPENDECTOMY LAPAROSCOPIC N/A 12/26/2019 Laterality: N/A; Surgeon: Rosy Lynn DO; Location: [facility] MAIN OR GASTRECTOMY LONGITUDINAL (SLEEVE) LAPAROSCOPIC N/A 08/10/2019 Laterality: N/A; Surgeon: Griselda Moore MD; Location: [facility] SAME DAY SURGERY MAIN OR EGD DIAGNOSTIC N/A 08/10/2019 Laterality: N/A; Surgeon: Griselda Moore MD; Location: [facility] SAME DAY SURGERY MAIN OR EGD DIAGNOSTIC N/A 04/24/2019 Laterality: N/A; Surgeon: Nahomy Santos MD; Location: [facility] ENDOSCOPY LAPAROTOMY EXPLORATORY N/A 02/27/2019 Laterality: N/A; Surgeon: Raul Lott MD; Location: [facility] MAIN OR HERNIA REPAIR 02/27/2019 REPAIR HERNIA UMBILICAL OPEN W/ MESH N/A 05/09/2017 Laterality: N/A; Surgeon: CORNEL Elizondo; Location: [facility] MAIN OR KIDNEY TRANSPLANT W/O AKIAK NEPHRECTOMY N/A 09/25/2016 Laterality: N/A; Surgeon: Jose Shaw MD; Location: [facility] MAIN OR DE KNEE SCOPE, MENISC TRANSPLANT Right 11/12/2014 right [...] follow up in Aug 2021. Scheduling phone [phone] CAPSULE Take [...] to the patient with above information. . Maico Hernadez MD 10/24/22 0731 documented in this encounter [facility] 10-24-2022 Emergency department Note Cleansed laceration with hibiclens and sterile water, bleeding controlled. [facility] 10-24-2022 Physician Emergency department Note Emergency Department Report [facility] EMERGENCY MEDICINE Service Date:.10/24/22 PCP: Mariana Miranda Chief Complaint: No chief complaint on file. HPI Lino Fontenot is a 57 y.o. male presents to [...] Bilateral; Surgeon: Charley Mccracken MD, PhD; Location: [facility] MAIN OR APPENDECTOMY LAPAROSCOPIC N/A 12/26/2019 Laterality: N/A; Surgeon: Rosy Lynn DO; Location: [facility] MAIN OR GASTRECTOMY LONGITUDINAL (SLEEVE) LAPAROSCOPIC N/A 08/10/2019 Laterality: N/A; Surgeon: Griselda Moore MD; Location: [facility] SAME DAY SURGERY MAIN OR EGD DIAGNOSTIC N/A 08/10/2019 Laterality: N/A; Surgeon: Griselda Moore MD; Location: [facility] SAME DAY SURGERY MAIN OR EGD DIAGNOSTIC N/A 04/24/2019 Laterality: N/A; Surgeon: Nahomy Santos MD; Location: [facility] ENDOSCOPY LAPAROTOMY EXPLORATORY N/A 02/27/2019 Laterality: N/A; Surgeon: Raul Lott MD; Location: [facility] MAIN OR HERNIA REPAIR 02/27/2019 REPAIR HERNIA UMBILICAL OPEN W/ MESH N/A 05/09/2017 Laterality: N/A; Surgeon: CORNEL Elizondo; Location: [facility] MAIN OR KIDNEY TRANSPLANT W/O AKIAK NEPHRECTOMY N/A 09/25/2016 Laterality: N/A; Surgeon: Jose Shaw MD; Location: [facility] MAIN OR DE KNEE SCOPE, MENISC TRANSPLANT Right 11/12/2014 right [...] follow up in Aug 2021. Scheduling phone [phone] [address]ME[address]LE [address] CAPSULE Take [...] to the patient with above information. . Maico Hernadez MD 10/24/22 0731 [facility] Work Phone: 09-03-2022 Note Addended by: ANDREW BINGHAM on: 09/03/2022 09:41 AM Modules accepted: Orders [facility] 09-03-2022 Miscellaneous Notes Addended by: ANDREW MCDUFFIE on: 09/03/2022 09:41 AM Modules accepted: Orders documented in this encounter [facility] 09-02-2022 Instructions Jasvir Vilchis CNP - 09/02/2022 1:23 PM EST Plan: Zithromax and Polytrim as prescribed. Call your services coordinator nurse today to notify of the [...] attachments cannot be sent through Care Everywhere.Conjunctivitis (Micronesian)Taking Care of [place]keye at Home: Video (Micronesian)Here's Help: How to Give Yourself Eyedrops or Eye Ointment: Video (Micronesian)Sinusitis (Micronesian)documented in this encounter [facility] 09-02-2022 Instructions Jasvir Vilchis CNP - 09/02/2022 1:23 PM EST Plan: Zithromax and Polytrim as prescribed. Call your services coordinator nurse today to notify of the [...] attachments cannot be sent through Care Everywhere.Conjunctivitis (Micronesian)Taking Care of Pinkeye at Home: Video (Micronesian)Here's Help: How to Give Yourself Eyedrops or Eye Ointment: Video (Micronesian)Sinusitis (Micronesian)documented in this encounter [facility] 09-02-2022 History of Present illness Narrative Images from the original note were not included. Patient Name: [facility] Location: Lino [place] [id number] [id number] Date Of : Date Of Visit: 1965 09/02/2022 MRN# Provider: [id number] Jasvir Vilchis CNP Chief Complaint Patient presents [...] Zithromax and Polytrim as prescribed. Call your services coordinator nurse today to notify of the [...] Zithromax and Polytrim as prescribed. Call your services coordinator nurse today to notify of the new medications you are taking and inquire if any additional lab work is necessary. Make a follow up appointment with your primary care provider within 7 days for recheck. If symptoms worsen, change, or new symptoms develop go instead immediately to the nearest emergency room for further evaluation and treatment. documented in this encounter [facility] 09-02-2022 History of Present illness Narrative Images from the original note were not included. Patient Name: [facility] Location: Lino Fontenot [address] [place] [address] Date Of : Date Of Visit: 1965 09/02/2022 MRN# Provider: [id number] Jasvir Vilchis CNP Chief Complaint Patient presents [...] Zithromax and Polytrim as prescribed. Call your services coordinator nurse today to notify of the [...] Zithromax and Polytrim as prescribed. Call your services coordinator nurse today to notify of the new medications you are taking and inquire if any additional lab work is necessary. Make a follow up appointment with your primary care provider within 7 days for recheck. If symptoms worsen, change, or new symptoms develop go instead immediately to the nearest emergency room for further evaluation and treatment. documented in this encounter [facility] 08-30-2022 Instructions Jasvir Vilchis CNP - [...] evaluation and treatment. documented in this encounter [facility] 08-30-2022 History of Present illness Narrative Images from the original note were not included. Patient Name: [facility] Location: Lino Fontenot [address] [facility] [address] Date Of : Date Of Visit: 1965 08/30/2022 MRN# Provider: [id number] Jasvir Vilchis CNP Chief Complaint Patient presents [...] evaluation and treatment. documented in this encounter [facility] 04-21-2022 Emergency department Note Patient presented discharge instructions and education to follow up with an neonatal social worker and chart picker medications from the pharmacy. Patient left this ED ambulatory with a steady gait and even respirations. [facility] 04-21-2022 Emergency department Note Patient presented discharge instructions and education to follow up with an neonatal social worker and chart picker medications from the pharmacy. Patient left this ED ambulatory with a steady gait and even respirations. Patient's vision assessed. 20/50 with both eyes. But unable to see anything with affected eye. He did state that he wears bifocals normally and has terrible vision. Dr. Archuleta aware of his baseline vision. EMERGENCY DEPARTMENT REPORT [facility] EMERGENCY MEDICINE SERVICE DATE: 04/21/22 PCP: Mariana Miranda CHIEF COMPLAINT: Right eye redness Chief Complaint Patient presents with Eye Problem Right eye redness x2 days, denies injury and pain HPI: Lino Fontenot is a 56 y.o. male who presents with complaint of right eye redness. Onset of redness the previous day. No change in vision. Patient reports no associated pain at this time. Patient reports course to be improving. Patient was evaluated in the urgent care setting the previous day. Patient was informed to present to the emergency department or see an chemical laboratory scientist. Patient wears contacts. REVIEW OF SYSTEMS: As [...] OPEN Bilateral 01/23/2022 Laterality: Bilateral; Surgeon: Charley cMcracken MD, PhD; [facility] MA[facility] OR APPENDECTOMY LAPAROSCOPIC N/A 12/26/2019 Laterality: N/A; Surgeon: Rosy Lynn DO; Location: [facility] MAIN OR GASTRECTOMY LONGITUDINAL (SLEEVE) LAPAROSCOPIC N/A 08/10/2019 Laterality: N/A; Surgeon: Griselda Moore MD; Location: [facility] SAME DAY SURGERY MAIN OR EGD DIAGNOSTIC N/A 08/10/2019 Laterality: N/A; Surgeon: Griselda Moore MD; Location: [facility] SAME DAY SURGERY MAIN OR EGD DIAGNOSTIC N/A 04/24/2019 Laterality: N/A; Surgeon: Nahomy Santos MD; Location: [facility] ENDOSCOPY LAPAROTOMY EXPLORATORY N/A 02/27/2019 Laterality: N/A; Surgeon: Raul Lott MD; Location: [facility] MAIN OR HERNIA REPAIR 02/27/2019 REPAIR HERNIA UMBILICAL OPEN W/ MESH N/A 05/09/2017 Laterality: N/A; Surgeon: CORNEL Elizondo; Location: [facility] MAIN OR KIDNEY TRANSPLANT W/O AKIAK NEPHRECTOMY N/A 09/25/2016 Laterality: N/A; Surgeon: Jose Shaw MD; Location: [facility] MAIN OR DE KNEE SCOPE, MENISC TRANSPLANT Right 11/12/2014 right [...] follow up in Aug 2021. Scheduling phone [phone] ROPINIROLE 0.5 MG TABLET Take 0.5 mg [...] Portions of this chart were created using [employer] electronic dictation. Please excuse any typographical or grammatical errors contained herein. Raheem Archuleta MD 04/21/22 1120 TO Ed with c/o right eye redness. Denies pain, itching, FB sensation, and injury. Saw urgent care tomorrow and was advised to seek emergent treatment and possible chemical laboratory scientist eval. documented in this encounter [facility] 04-21-2022 Hospital Discharge instructions Raheem Archuleta MD - 04/21/2022 11:12 AM EDT You will need to see an eye doctor B[place]. The following attachments cannot be sent through Care Everywhere.Iritis (Micronesian)documented in this encounter [facility] 04-21-2022 Emergency department Note Patient's vision assessed. 20/50 with both eyes. But unable to see anything with affected eye. He did state that he wears bifocals normally and has terrible vision. Dr. Archuleta aware of his baseline vision. [facility] 04-21-2022 Physician Emergency department Note EMERGENCY DEPARTMENT REPORT [facility] EMERGENCY MEDICINE SERVICE DATE: 04/21/22 PCP: Mariana Miranda CHIEF COMPLAINT: Right eye redness Chief Complaint Patient presents with Eye Problem Right eye redness x2 days, denies injury and pain HPI: Lino Fontenot is a 56 y.o. male who presents with complaint of right eye redness. Onset of redness the previous day. No change in vision. Patient reports no associated pain at this time. Patient reports course to be improving. Patient was evaluated in the urgent care setting the previous day. Patient was informed to present to the emergency department or see an chemical laboratory scientist. Patient wears contacts. REVIEW OF SYSTEMS: As [...] Bilateral; Surgeon: Charley Mccracken MD, PhD; Location: [facility] MAIN OR APPENDECTOMY LAPAROSCOPIC N/A 12/26/2019 Laterality: N/A; Surgeon: Rosy Lynn DO; Location: [facility] MAIN OR GASTRECTOMY LONGITUDINAL (SLEEVE) LAPAROSCOPIC N/A 08/10/2019 Laterality: N/A; Surgeon: Griselda Moore MD; Location: [facility] SAME DAY SURGERY MAIN OR EGD DIAGNOSTIC N/A 08/10/2019 Laterality: N/A; Surgeon: Griselda Moore MD; Location: [facility] SAME DAY SURGERY MAIN OR EGD DIAGNOSTIC N/A 04/24/2019 Laterality: N/A; Surgeon: Nahomy Santos MD; Location: [facility] ENDOSCOPY LAPAROTOMY EXPLORATORY N/A 02/27/2019 Laterality: N/A; Surgeon: Raul Lott MD; Location: [facility] MAIN OR HERNIA REPAIR 02/27/2019 REPAIR HERNIA UMBILICAL OPEN W/ MESH N/A 05/09/2017 Laterality: N/A; Surgeon: CORNEL Elizondo; Location: [facility] MAIN OR KIDNEY TRANSPLANT W/O AKIAK NEPHRECTOMY N/A 09/25/2016 Laterality: N/A; Surgeon: Jose Shaw MD; Location: [facility] MAIN OR DE KNEE SCOPE, MENISC TRANSPLANT Right 11/12/2014 right [...] follow up in Aug 2021. Scheduling phone [phone] ROPINIROLE 0.5 MG TABLET Take 0.5 mg [...] Portions of this chart were created using [employer] electronic dictation. Please excuse any typographical or grammatical errors contained herein. Raheem Archuleta MD 04/21/22 1120 [facility] 04-21-2022 Emergency department Note TO Ed with c/o right eye redness. Denies pain, itching, FB sensation, and injury. Saw urgent care tomorrow and was advised to seek emergent treatment and possible chemical laboratory scientist eval. [facility] 03-02-2022 History of Present illness Narrative [...] resolution with tx. documented in this encounter [facility] 01-08-2022 Instructions REYES Shook - 01/08/2022 [...] sooner if needed. documented in this encounter [facility] 01-08-2022 History of Present illness Narrative History of Present Illness Erectile Dysfunction There is a complaint of erectile problems. Onset of problem was the beginning of the year and is described as cant last (will obtain erection, however, this will not last and then, at times, unable to even obtain an erection, also, dont get the urge to want to have sex. 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 EDWARDO Lino presents to the office today for follow-up [...] to take second does with Prilosec. Allergies Lino Fontenot presents for follow up for allergies. Eyes [...] sooner if needed. documented in this encounter [facility] 01-04-2022 History and physical note History of Present Illness Mr. Fontenot is a 56 y.o. male is being evaluated in [facility] due to his medical condition(s) S/p gastric bypass - 2019 Hypertension- stable on medication Kidney transplant 2016 - history of polycystic kidney disease GERD- stable on medication DEMI on CPAP- resolved since wt loss which increases his risk for perioperative complications. Name: Lino Fontenot Date of Surgery: 01/23/2022 Surgeon: Kaykay Pre-Op Diagnosis: chronic pain due to [place] kidney - polycystic kidney disease Planned Procedure: EXAM UNDER ANESTHESIA, OPEN BILATERAL AKIAK NEPHRECTOMY Do you take Aspirin? Yes, prevenative [...] Staff Patient location during procedure: OR Room: [facility] Attending: Danny Mina MD Performed by: Bryon [...] Placed This Encounter Type and Cross -Preadmission DE ECG, CLINIC PERFORMED Lab A/P - Labs [...] ASA 3 or more DO Jono Cano [facility] Perioperative Clinic [facility] [address] [facility] Review of Systems Review of Systems Constitutional: [...] Laterality: N/A; Surgeon: Rosy Lynn DO; Location: [facility] MAIN OR GASTRECTOMY LONGITUDINAL (SLEEVE) LAPAROSCOPIC N/A 08/10/2019 Laterality: N/A; Surgeon: Griselda Moore MD; Location: [facility] SAME DAY SURGERY MAIN OR EGD DIAGNOSTIC N/A 08/10/2019 Laterality: N/A; Surgeon: Griselda Moore MD; Location: [facility] SAME DAY SURGERY MAIN OR EGD DIAGNOSTIC N/A 04/24/2019 Laterality: N/A; Surgeon: Nahomy Santos MD; Location: [facility] ENDOSCOPY LAPAROTOMY EXPLORATORY N/A 02/27/2019 Laterality: N/A; Surgeon: Raul Lott MD; Location: [facility] MAIN OR HERNIA REPAIR 02/27/2019 REPAIR HERNIA UMBILICAL OPEN W/ MESH N/A 05/09/2017 Laterality: N/A; Surgeon: CORNEL Elizondo; Location: [facility] MAIN OR KIDNEY TRANSPLANT W/O AKIAK NEPHRECTOMY N/A 09/25/2016 Laterality: N/A; Surgeon: Jose Shaw MD; Location: [facility] MAIN OR DE KNEE SCOPE, MENISC TRANSPLANT Right 11/12/2014 right [...] DUCT TONSILLECTOMY Patient Care Team: Mariana Miranda APRN-PUDDLER HELPER as PCP - General (Nurse Practitioner - Family) Coordinator Transplant (Inactive) as PCP - Drive In Waiter/Waitress Family History Problem Relation Age of Onset [...] Never Other Topics Concern Domestic Violence No [facility] 01-04-2022 History and physical note History of Present Illness Mr. Fontenot is a 56 y.o. male is being evaluated in [facility] due to his medical condition(s) S/p gastric bypass - 2019 Hypertension- stable on medication Kidney transplant 2017 - history of polycystic kidney disease GERD- stable on medication DEMI on CPAP- resolved since wt loss which increases his risk for perioperative complications. Name: Lino Fontenot Date of Surgery: 01/23/2022 Surgeon: Kaykay Pre-Op Diagnosis: chronic pain due to [place] kidney - polycystic kidney disease Planned Procedure: EXAM UNDER ANESTHESIA, OPEN BILATERAL AKIAK NEPHRECTOMY Do you take Aspirin? Yes, prevenative [...] Staff Patient location during procedure: OR Room: [facility] Attending: Danny Mina MD Performed by: Bryon [...] Placed This Encounter Type and Cross -Preadmission DE ECG, CLINIC PERFORMED Lab A/P - Labs [...] DO Jono Cano [facility] Perioperative Clinic [facility] [address] [facility] Review of Systems Review of Systems Constitutional: [...] Psychiatric/Behavioral: Negative for suicidal ideas. Physical Examination ([facility]Physical Exam Vitals and nursing note reviewed. Constitutional: [...] Laterality: N/A; Surgeon: Rosy Lynn DO; Location: [facility] MAIN OR GASTRECTOMY LONGITUDINAL (SLEEVE) LAPAROSCOPIC N/A 08/10/2019 Laterality: N/A; Surgeon: Griselda Moore MD; Location: [facility] SAME DAY SURGERY MAIN OR EGD DIAGNOSTIC N/A 08/10/2019 Laterality: N/A; Surgeon: Griselda Moore MD; Location: [facility] SAME DAY SURGERY MAIN OR EGD DIAGNOSTIC N/A 04/24/2019 Laterality: N/A; Surgeon: Nahomy Santos MD; Location: [facility] ENDOSCOPY LAPAROTOMY EXPLORATORY N/A 02/27/2019 Laterality: N/A; Surgeon: Raul Lott MD; Location: [facility] MAIN OR HERNIA REPAIR 02/27/2019 REPAIR HERNIA UMBILICAL OPEN W/ MESH N/A 05/09/2017 Laterality: N/A; Surgeon: CORNEL Elizondo; Location: [facility] MAIN OR KIDNEY TRANSPLANT W/O AKIAK NEPHRECTOMY N/A 09/25/2016 Laterality: N/A; Surgeon: Jose Shaw MD; Location: [facility] MAIN OR DE KNEE SCOPE, MENISC TRANSPLANT Right 11/12/2014 right [...] DUCT TONSILLECTOMY Patient Care Team: Mariana Miranda APRN-PUDDLER HELPER as PCP - General (Nurse Practitioner - Family) Coordinator Transplant (Inactive) as PCP - Drive In Waiter/Waitress Family History Problem Relation Age of Onset [...] Violence No documented in this encounter [facility] 01-04-2022 Instructions Cayla Dean RN - 01/04/2022 [...] site one week prior to surgery. - [place] your teeth and rinse your mouth the morning of surgery. - Do NOT bring your dentures or partials with you into surgery. They may be lost. Give them to someone to bring to you after surgery. If you are unable to complete your scheduled testing or appointments made by [facility] please contact [facility] at [phone]. Failure to do so could delay or [...] Information Management Department for all records requests. [phone] [phone] documented in this encounter [facility] 11-30-2021 History and physical note Images from [...] graft (Left, 2009); tonsillectomy; kidney transplant w/o [place] nephrectomy (N/A, 09/25/2016); pr knee scope, menisc [...] 4, Warm. No clubbing. No cyanosis. Skin: [employer], warm and dry. No rashes noted. Diagnostic [...] with several of these cysts in the [place] kidneys have increased density probably secondary to [...] edited the document as appropriate. In addition: Lino Fontenot is a 56 y.o. male who presents in consultation for consideration for bilateral robotic [place] nephrectomy of polycystic kidneys which are painfully [...] patient that I do think a bilateral [place] nephrectomy is indicated given his symptoms. I typically perform this operation through the conventional midline open approach. I have discussed the case via e-mail with my colleague Dr. Mccracken who has experience robotic surgeon. I recommended that the patient consult with Dr. Mccracken for consideration of bilateral robotic [place] nephrectomy. In the meantime I do not believe he needs any additional imaging. We will refer him to [facility] for preoperative clearance. [facility] Work Phone: 11-30-2021 History and physical note [...] graft (Left, 2009); tonsillectomy; kidney transplant w/o [place] nephrectomy (N/A, 09/25/2016); pr knee scope, menisc [...] 4, Warm. No clubbing. No cyanosis. Skin: [employer], warm and dry. No rashes noted. Diagnostic [...] with several of these cysts in the [place] kidneys have increased density probably secondary to [...] edited the document as appropriate. In addition: Lino Fontenot is a 56 y.o. male who presents in consultation for consideration for bilateral robotic [place] nephrectomy of polycystic kidneys which are painfully [...] patient that I do think a bilateral [place] nephrectomy is indicated given his symptoms. I typically perform this operation through the conventional midline open approach. I have discussed the case via e-mail with my colleague Dr. Mccracken who has experience robotic surgeon. I recommended that the patient consult with Dr. Mccracken for consideration of bilateral robotic [place] nephrectomy. In the meantime I do not believe he needs any additional imaging. We will refer him to [facility] for preoperative clearance. documented in this encounter [facility] 10-26-2021 Instructions Dexter Mcgrath RN - 10/26/2021 10:31 AM EDT - Referral placed with Urology - Return to clinic 09/20/2022 with CORNEL Jones as scheduled documented in this encounter [facility] 10-26-2021 History of Present illness Narrative Images from the original note were not included. PREP SHEET FOR NEPHROLOGY CLINIC Patient Name: Lino Fontenot Drive In Waiter/Waitress: Chris Curtis Date of Kidney Transplant: 09/25/2016 Primary Disease: Polycystic Kidneys Transplant Rubber Turner: Ariel Hooper Primary Care physician: Mariana Miranda [...] omeprazole, rOPINIRole, sildenafil citrate, tacrolimus, and terbinafine [facility] - [address] - [facility] [address] [facility] [address] Change in lab frequency / new order today: no Labs needed in clinic today? no COORDINATOR NOTES: Images from the original note were not included. PREP SHEET FOR NEPHROLOGY CLINIC Patient Name: Lino Fontenot Drive In Waiter/Waitress: Chris Curtis Date of Kidney Transplant: 09/25/2016 Primary Disease: Polycystic Kidneys Transplant Rubber Turner: Ariel Hooper Primary Care physician: Mariana Miranda [...] omeprazole, rOPINIRole, sildenafil citrate, tacrolimus, and terbinafine [place] [address] [address] [place] [address] [address] [place] [id number] Change in lab frequency / new order [...] current facility-administered medications for this visit. Mr. Fontenot is scheduled to return to the [facility] on Visit date not found documented in this encounter [facility] 10-09-2021 Instructions REYES Shook - 10/09/2021 2:46 PM EDT Back Pain: [...] sooner if needed. documented in this encounter [facility] 10-09-2021 History of Present illness Narrative History of Present Illness Back Pain Lino Fontenot is a 56 y.o. male who comes [...] the urge to want to have sex. 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 documented in this encounter [facility] 09-18-2021 History of Present illness Narrative Images from the original note were not included. Today we were happy to see Lino Fontenot at [facility] Post Transplant Office for evaluation and management of immunosuppression and associated conditions in the setting of solid organ transplantation. As you may be aware Mr. Fontenot is a 56 y.o. year-old male with [...] Had L upper arm AVF removed in 2018, done by local vascular Dr. Stringer in [facility] in [place], [place]. Had an incarcerated ventral hernia in [...] (SLEEVE) LAPAROSCOPIC N/A 08/10/2019 Laterality: N/A; Surgeon: Griselda Moore MD; Location: [facility] SAME DAY SURGERY MAIN OR EGD DIAGNOSTIC N/A 08/10/2019 Laterality: N/A; Surgeon: Griselda Moore MD; Location: [facility] SAME DAY SURGERY MAIN OR EGD DIAGNOSTIC N/A 04/24/2019 Laterality: N/A; Surgeon: Nahomy Santos MD; Location: [facility] ENDOSCOPY LAPAROTOMY EXPLORATORY N/A 02/27/2019 Laterality: N/A; Surgeon: Raul Lott MD; Location: [facility] MAIN OR HERNIA REPAIR 02/27/2019 REPAIR HERNIA UMBILICAL OPEN W/ MESH N/A 05/09/2017 Laterality: N/A; Surgeon: CORNEL Elizondo; Location: [facility] MAIN OR KIDNEY TRANSPLANT W/O [place]IAK NEPHRECTOMY N/A 09/25/2016 Laterality: N/A; Surgeon: Jose Shaw MD; Location: [facility] MAIN OR DE KNEE SCOPE, MENISC TRANSPLANT Right 11/12/2014 right [...] and acceptable. 5) Preventative Health PCP Mr. Fontenot follows with Mariana Miranda for primary care. Risk for Diabetes Mr. Fontenot was reminded of the risk of new [...] at this time. Risk for Osteodystrophy Mr. Fontenot has stable PTH and CA/phos. No intervention [...] skin issues, and follow up with his statement request clerk.This, in combination with his current medical regimen should help improve blood pressure, cholesterol levels, energy level, and will help prevent halfway health complications, and may improve quality and length of life. Return to Clinic: The patient will follow-up with us in clinic in one year however we will see patient earlier should the need arise. We have ordered transplant specific labs per the center s guidelines to monitor and assess for toxicities from immunosuppressant drug therapy. Andrew Trinidad, SAPNA PUDDLER HELPER Transplant Nurse Practitioner [facility] [place] [place] [address] documented in this encounter [facility] 09-25-2016 Evaluation note Diagnosis Polycystic kidney disease Polycystic kidney, unspecified type -donor 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/25/2016 Kidney replaced by transplant [facility] Kidney replaced by transplant- Primary Abnormal blood chemistry Other abnormal blood chemistry Immunosuppressed status Unspecified disorder of immune mechanism Aftercare following organ transplant High risk medication use Encounter for long-term (current) use of other medications [facility] Diagnosis Polycystic kidney disease- Primary Polycystic kidney, unspecified type Acute bilateral low back pain without sciatica Erectile dysfunction, unspecified erectile dysfunction type -donor 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/25/2016 Kidney replaced by transplant Lack of sexual desire Hypoactive sexual desire disorder [facility] Diagnosis Acute bilateral low back pain without sciatica [facility] Diagnosis Kidney replaced by transplant- Primary [...] laparoscopic sleeve gastrectomy [facility] Diagnosis Polycystic kidney disease- Primary Polycystic kidney, unspecified type Gastroesophageal reflux disease without esophagitis Esophageal reflux S/P laparoscopic sleeve gastrectomy [facility] Diagnosis Preop exam for internal medicine- [...] kidney, unspecified type [facility] Diagnosis Erectile dysfunction, unspecified erectile dysfunction type- Primary Gastroesophageal reflux disease without esophagitis Esophageal reflux Environmental and seasonal allergies Polycystic kidney disease Polycystic kidney, unspecified type [facility] Diagnosis Low testosterone in male- Primary Acute bacterial conjunctivitis of right eye [facility] Diagnosis Redness of right eye- Primary Redness or discharge of eye [facility]* Diagnosis Viral URI- Primary Acute upper respiratory infections of unspecified site [facility] Diagnosis Sinusitis, unspecified chronicity, unspecified location- Primary Acute conjunctivitis of both eyes, unspecified acute conjunctivitis type [facility] Diagnosis Sinusitis, unspecified chronicity, unspecified location- Primary Acute conjunctivitis of both eyes, unspecified acute conjunctivitis type [facility] Diagnosis Laceration of right hand without foreign body, initial encounter- Primary [facility]* Diagnosis Dog bite of right hand with infection, initial encounter- Primary [facility] Diagnosis Dog bite, initial encounter- Primary Encounter for post surgical wound check [facility] Diagnosis Class 2 severe obesity with serious comorbidity and body mass index (BMI) of 36.0 to 36.9 in adult, unspecified obesity type- Primary Gastroesophageal reflux disease without esophagitis Esophageal reflux S/P laparoscopic sleeve gastrectomy [facility] Diagnosis Sprain of right ankle, unspecified ligament, initial encounter- Primary Sprain of right foot, initial encounter [facility] Diagnosis Acute right ankle pain- Primary Sprain of right medial ankle joint, initial encounter [facility] Diagnosis Right foot pain- Primary Pain in limb Sprain of right ankle, unspecified ligament, initial encounter [facility]* Diagnosis Lentigines- Primary Other dyschromia Skin [...] behavior of skin [facility] Diagnosis Gastroesophageal reflux disease without esophagitis Esophageal reflux S/P laparoscopic sleeve gastrectomy [facility] Diagnosis Gastroesophageal reflux disease, unspecified whether [...] obstructive sleep apnea [facility] Diagnosis S/P laparoscopic sleeve gastrectomy History of obstructive sleep apnea [facility] Diagnosis Gastroesophageal reflux disease without esophagitis- Primary Esophageal reflux Seborrheic dermatitis Seborrheic dermatitis, unspecified Tinea pedis, unspecified laterality Morbid obesity Right ear impacted cerumen Impacted cerumen [facility] Diagnosis Obstructive sleep apnea (adult) (pediatric) [G47.33]- Primary Obstructive sleep apnea (adult) (pediatric) S/P laparoscopic sleeve gastrectomy History of obstructive sleep apnea [facility] Diagnosis Obstructive sleep apnea (adult) (pediatric) [G47.33]- Primary Obstructive sleep apnea (adult) (pediatric) [facility] Diagnosis Morbid obesity- Primary Acute right ankle pain Gastroesophageal reflux disease without esophagitis Esophageal reflux Benign hypertension Essential hypertension, benign DEMI (obstructive sleep apnea) Obstructive sleep apnea (adult) (pediatric) [facility]* Diagnosis Gastroesophageal reflux disease without esophagitis- Primary Esophageal reflux Morbid obesity Gastroesophageal reflux disease without esophagitis Esophageal reflux Morbid obesity [facility] Diagnosis Encounter for weight loss counseling- Primary Gastroesophageal reflux disease without esophagitis Esophageal reflux Morbid obesity [facility] Diagnosis Onset Date Resolution Status History of gastric bypass ac [place] History of kidney transplant acute Screening for lipid disorders acute Screening for prostate cancer acute [facility] Work Phone: Hospital Discharge instructions* Attachments The following attachments cannot be sent through Care Everywhere. * Hand Laceration: Stitches ([place]) [facility]* Attachments The following attachments cannot be sent through Care Everywhere. * Pain and Pain Control ([facility]) ([place]) [facility] Attachments The following attachments cannot be sent through Care Everywhere. * Bites: Animal (Micron[place]) [facility]* Attachments The following attachments cannot be sent through Care Everywhere. * Ankle Sprain ([place]) [facility] (narrative)* Consultation (Routine) - New Request Specialty Diagnoses / Procedures Referred By Contac t Referred To Contact Urology Diagnoses Kidney replaced by transplant Aftercare following organ transplant Suzie Giraldo MD, PhD [address] [place] [address] Referral ID Status Reason Start Date Expiration Date V isits Requested Visits Authorized [id number] New Request 10/26/2021 11/20/2022 1 1 [facility] [place] [facility] for referral (narrative)* Consultation (Urgent) - New Request Specialty Diagnoses / Procedures Referred By Contac t Referred To Contact Family Medicine Diagnoses Sprain of right ankle, unspecified ligament, initial encounter Sprain of right foot, initial encounter Jackson Shaffer MD [address] [place] [address] Mariana Miranda, CORE CUTTER AND REAMER-PUDDLER HELPER [address] [place] [address] Referral ID Status Reason Start Date Expiration Date V isits Requested Visits Authorized [id number] New Request 03/11/2023 04/04/2024 1 1 [facility] for referral (narrative)* Consultation (Routine) - New Request Specialty Diagnoses / Procedures Referred By Contac t Referred To Contact Podiatry Diagnoses Acute right ankle pain Sprain of right medial ankle joint, initial encounter Mariana Miranda, CORE CUTTER AND REAMER-PUDDLER HELPER [address] [place] [address] Ilene Diego DPM [address] [place] [address] Referral ID Status Reason Start Date Expiration Date V isits Requested Visits Authorized [id number] New Request 04/16/2023 05/10/2024 1 1 [facility] for referral (narrative)* Consultation (Routine) - New Request Specialty Diagnoses / Procedures Referred By Contac t Referred To Contact PreOp Diagnoses Gastroesophageal reflux disease without esophagitis Griselda Moore MD [address] [place] [address] Referral ID Status Reason Start Date Expiration Date V isits Requested Visits Authorized [id number] New Request 02/20/2024 03/16/2025 1 1 [facility] Summary Purpose Family History No Family History Records FoundNo Family History Records FoundNo Family History Records FoundNo Family History Records FoundNo Family History Records FoundNo Family History Records FoundNo Family History Records FoundNo Family History Records Found Advance Directives Latest Code Status on File Code Status [...] Code 02/28/2019 5:06 AM 08/10/2019 11:52 AM Date Activated Date Inactivated Comments 01/23/2022 5:28 AM 01/23/2022 4:46 PM Date Activated Date Inactivated Comments 12/26/2019 9:39 AM 01/23/2022 5:28 AM Date Activated Date Inactivated Comments 08/11/2019 5:40 AM 12/26/2019 9:39 AM Date Activated Date Inactivated Comments 08/10/2019 11:52 AM 08/10/2019 5:13 PM Date Activated Date Inactivated Comments 02/28/2019 5:06 AM 08/10/2019 11:52 AM Date Activated Date Inactivated Comments 01/23/2022 5:28 AM 01/23/2022 4:46 PM Date Activated Date Inactivated Comments 12/26/2019 9:39 AM 01/23/2022 5:28 AM Date Activated Date Inactivated Comments 08/11/2019 5:40 AM 12/26/2019 9:39 AM Date Activated Date Inactivated Comments 08/10/2019 11:52 AM 08/10/2019 5:13 PM Date Activated Date Inactivated Comments 02/28/2019 5:06 AM 08/10/2019 11:52 AM Advance Directive Response Recorded Date/ Time Advance Directives No August 01, 2018 3:35pm Reason for Referral Status Reason Specialty Diagnoses / Procedures Re ferred By Contact Referred To Contact Auth Not Needed Diagnoses Chronic pain of right knee Osteoarthritis of right knee, unspecified osteoarthritis type Procedures MRI KNEE RIGHT WITHOUT CONTRAST DE MRI LOWER EXTREM JT, W/O CONTRAST Jorge Ireland MD [address] [place] [address] Status Reason Specialty Diagnoses / Procedures Referred By Contact Referred To Contact New Request Diagnoses Chronic pain of right knee Procedures XR KNEE RIGHT 4+ VIEWS Jorge Ireland MD [address] [place] [address] Status Reason Specialty Diagnoses / Procedures Referred By Contact Referred To Contact New Request Diagnoses Chronic pain of right knee Procedures XR BONE LENGTH STUDY Jorge Ireland MD [address] [place] [address] Specialty Diagnoses / Procedures Referred By Contac t Referred To Contact Diagnoses Polycystic kidney disease -donor kidney transplant Procedures RENAL TrMariana sutton, CORE CUTTER AND REAMER-PUDDLER HELPER [address] [place] [address] Referral ID Status Reason Start Date Expiration Date V isits Requested Visits Authorized [id number] Auth Not Needed 10/09/2021 11/03/2022 1 1 Specialty Diagnoses / Procedures Referred By Contac t Referred To Contact Ultrasound Diagnoses Polycystic kidney disease -donor kidney transplant Procedures RENAL TrubaMariana ware, CORE CUTTER AND REAMER-PUDDLER HELPER [address] [place] [address] [facility] [address] [place] [address] Referral ID Status Reason Start Date Expiration Date Visits Re quested Visits Authorized [id number] Closed 10/09/2021 11/03/2022 1 1 Specialty Diagnoses / Procedures Referred By Contac t Referred To Contact PreOp Diagnoses Polycystic kidney disease Elena Hu, CORE CUTTER AND REAMER-PUDDLER HELPER [address] [place] [id number] Referral ID Status Reason Start Date Expiration Date V isits Requested Visits Authorized [id number] New Request 11/30/2021 12/25/2022 1 1 Specialty Diagnoses / Procedures Referred By Contac t Referred To Contact Podiatry / Physical Therapy Diagnoses Right foot pain Sprain of right ankle, unspecified ligament, initial encounter Ilene Diego, DPM [address] [place] [address] [facility] [address] [address] Referral ID Status Reason Start Date Expiration Date Visits Requested Visits Authorized [id number] Authorized - [facility] 04/19/2023 05/13/2024 6 6 Scheduling Instructions . Specialty Diagnoses / Procedures Referred By Shruthi perry Referred To Contact Diagnoses Gastroesophageal reflux disease without esophagitis S/P laparoscopic sleeve gastrectomy Procedures INTERVENTIONAL UPPER ENDOSCOPY DE ESOPHAGOGASTRODUODENOSCOPY TRANSORAL DIAGNOSTIC Caty Penn CORE CUTTER AND REAMER-PUDDLER HELPER [address] [employer] [address] [place] [phone] Referral ID Status Reason Start Date Expiration Date V isits Requested Visits Authorized [id number] Pending Review 11/05/2022 11/30/2023 1 1 Specialty Diagnoses / Procedures Referred By Shruthi perry Referred To Contact Diagnoses S/P laparoscopic sleeve gastrectomy Vitamin D deficiency Iron deficiency Medication management Procedures ECG Caty Penn CORE CUTTER AND REAMER-PUDDLER HELPER [address] [facility] [address] [address] Referral ID Status Reason Start Date Expiration Date V isits Requested Visits Authorized [id number] New Request 09/30/2023 10/24/2024 1 1 Specialty Diagnoses / Procedures Referred By Shruthi perry Referred To Contact Diagnoses S/P laparoscopic sleeve gastrectomy History of obstructive sleep apnea Obstructive sleep apnea (adult) (pediatric) Procedures SCHEDULE HOME SLEEP STUDY Caty Penn CORE CUTTER AND REAMER-PUDDLER HELPER [address] [facility] [address] [place] [address] Referral ID Status Reason Start Date Expiration Date V isits Requested Visits Authorized [id number] New Request 09/30/2023 10/24/2024 1 1 Specialty Diagnoses / Procedures Referred By Shruthi perry Referred To Contact Diagnoses Obstructive sleep apnea (adult) (pediatric) Procedures CPAP / BPAP SETUP FOR HOME Cait Richardson MD [address] [place] [id number] Referral ID Status Reason Start Date Expiration Date V isits Requested Visits Authorized [id number] New Request 12/25/2023 01/18/2025 1 1 History of Present Illness * Jorge Ireland MD - 05/15/2018 2:50 PM EST Formatting of this note may be different from the original. Dictation on: 05/15/2018 3:50 PM by: JORGE IRELAND [[email or web address]] I have reviewed the findings of the clinical patient support representative and agree with their assessment. Jorge Ireland MD Ortho Nurse Patient Intake Room#: 1 Right knee pain Has had cortisone and just finished up Euflexxa injections with no help, PT years ago Date: 05/15/2018 3:12 PM Patient: Lino Fontenot MR#: [id number] : 1965 Age: 52 y.o. Referring Physician: [...] Location: [facility] MAIN OR KIDNEY TRANSPLANT W/O AKIA[place] NEPHRECTOMY N/A 09/25/2016 Laterality: N/A; Surgeon: Jose Shaw MD; Location: [facility] MAIN OR DE KNEE SCOPE, MENISC TRANSPLANT Right 11/12/2014 right [...] []cane, []bracing Are you followed by a handle and vent machine operator? [] [x] Name: Are you followed by pain management? [] [x] Name: Are you followed by any other specialists? [x] [] Name: Dr Sandie CUTLER Nephrology Outpatient Medications Prior to Visit [...] Does pt have dentures? no Procedures * Angelo Dale LPN - 05/15/2018 2:50 PM EST Formatting of this note may be different from the original. Ortho Nurse Patient Intake Room#: 1 Right knee pain Has had cortisone and just finished up Euflexxa injections with no help, PT years ago Date: 05/15/2018 3:12 PM Patient: Lino Fontenot MR#: [id number] : 1965 Age: 52 y.o. Referring Physician: [...] Location: [facility] MAIN OR KIDNEY TRANSPLANT W/O AKIAK NEPHRECTOMY N/A 09/25/2016 Laterality: N/A; Surgeon: Jose Shaw MD; Location: [facility] MAIN OR DE KNEE SCOPE, MENISC TRANSPLANT Right 11/12/2014 right [...] []cane, []bracing Are you followed by a handle and vent machine operator? [] [x] Name: Are you followed by pain management? [] [x] Name: Are you followed by any other specialists? [x] [] Name: Dr Sandie CUTLER Nephrology Outpatient Medications Prior to Visit [...] - Primary Chronic pain of right knee Chief Complaint and Reason for Visit Chief Complaint Establish Reason for Visit History of gastric b ypass History of kidney transplant Screening for lipid disorders Screening for prostate cancer Additional Source Comments (unrecognized sect ion and content) No Status Records FoundNo Status Records FoundNo Status Records FoundNo Status Records FoundNo Status Records FoundNo Status Records FoundNo Status Records FoundNo Status Records Found INFORMATION SOURCE (unrecogn ized section and content) DATE CREATED AUTHOR 12/24/2017 [facility] DATE CREATED AUTHOR AUTHOR'S ORGANIZ ATION 12/25/2017 [facility] DATE CREATED AUTHOR AUTHOR'S ORGANIZ ATION 07/02/2018 [facility] DATE CREATED AUTHOR AUTHOR'S ORGANIZ ATION 08/19/2018 [facility] DATE CREATED AUTHOR AUTHOR'S ORGANIZ ATION 10/31/2022 [facility] DATE CREATED AUTHOR AUTHOR'S ORGANIZ ATION 01/18/2024 [facility] DATE CREATED AUTHOR AUTHOR'S ORGANIZ ATION 02/22/2024 [facility] DATE CREATED AUTHOR AUTHOR'S ORGANIZ ATION 02/22/2024 [facility] Reason for Visit (unrecogniz ed section and content) Reason Comments New Patient Specialty Diagnoses / Procedures Referred By Shruthi perry Referred To Contact Pulmonary Disease / Sleep Medicine Diagnoses new bariatric Procedures NEW BARIATRIC PATIENT Self, Self Cait Richardson MD [address] [place] [id number] Referral ID Status Reason Start Date Expiration Date V isits Requested Visits Authorized [id number] New Request 01/08/2024 02/01/2025 1 1 Reason Comments Pain Reason Comments Medication Refill Status Reason Specialty Diagnoses / Procedures Re ferred By Contact Referred To Contact Closed Diagnoses Chronic pain of right knee Osteoarthritis of right knee, unspecified osteoarthritis type Procedures MRI KNEE RIGHT WITHOUT CONTRAST DE MRI LOWER EXTREM JT, W/O CONTRAST Jorge Ireland MD [address] [place] [address] Status Reason Specialty Diagnoses / Procedures Referred By Contact Referred To Contact New Request Diagnoses Chronic pain of right knee Procedures XR BONE LENGTH STUDY Jorge Ireland MD [address] [place] [address] Reason Comments Kidney Recipient Follow-up Reason Comments Back Pain Specialty Diagnoses / Procedures Referred By Shruthi t Referred To Contact Ultrasound Diagnoses Polycystic kidney disease -donor kidney transplant Procedures RENAL Mariana Miranda, CORE CUTTER AND REAMER-PUDDLER HELPER [address] [place] [address] [facility] [address] [place] [address] Referral ID Status Reason Start Date Expiration Date Visits Re quested Visits Authorized [id number] Closed 10/09/2021 11/03/2022 1 1 Reason Comments Kidney Recipient Follow-up Specialty Diagnoses / Procedures Referred By Shruthi t Referred To Contact Urology Diagnoses Kidney replaced by transplant Aftercare following organ transplant Suzie Giraldo MD, PhD [address] [place] [address] Referral ID Status Reason Start Date Expiration Date V isits Requested Visits Authorized [id number] New Request 10/26/2021 11/20/2022 1 1 Reason Comments Pre-operative Consultation Specialty Diagnoses / Procedures Referred By Contac t Referred To Contact PreOp Diagnoses Polycystic kidney disease Elena Hu, CORE CUTTER AND REAMER-PUDDLER HELPER [address] [place] [address] Referral ID Status Reason Start Date Expiration Date V isits Requested Visits Authorized [id number] New Request 11/30/2021 12/25/2022 1 1 Reason [...] at 1530 today. 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 DOI 03/11/23(39 days) Jacky Wrap from ED with minimal relief. 4/10 pain at rest, 6/10 pain with WB/Activity. Specialty Diagnoses / Procedures Referred By Shruthi perry Referred To Contact Podiatry Diagnoses Acute right ankle pain Sprain of right medial ankle joint, initial encounter Mariana Miranda, CORE CUTTER AND REAMER-PUDDLER HELPER [address] [place] [address] Ilene Diego, EDER [address] [place] [id number] Referral ID Status Reason Start Date Expiration Date V isits Requested Visits Authorized [id number] New Request 04/16/2023 05/10/2024 1 1 Reason Comments Skin Exam Specialty Diagnoses / Procedures Referred By Shruthi perry Referred To Contact Diagnoses Gastroesophageal reflux disease without esophagitis S/P laparoscopic sleeve gastrectomy Procedures INTERVENTIONAL UPPER ENDOSCOPY DE ESOPHAGOGASTRODUODENOSCOPY TRANSORAL DIAGNOSTIC Caty Penn Tomas, CORE CUTTER AND REAMER-PUDDLER HELPER [address] [place] [address] Referral ID Status Reason Start Date Expiration Date V isits Requested Visits Authorized [id number] Pending Review 11/05/2022 11/30/2023 1 1 Reason Comments New Patient Presents for surgLifestander l weight management evaluation. Is interested in [...] 2-3 days per week for 60-90 minutes. Reason Comments Record Review Reason Comments Sleep Study Hypersomnia Specialty Diagnoses / Procedures Referred By Shruthi perry Referred To Contact Diagnoses S/P laparoscopic sleeve gastrectomy History of obstructive sleep apnea Obstructive sleep apnea (adult) (pediatric) Procedures SCHEDULE HOME SLEEP STUDY Caty Penn, CORE CUTTER AND REAMER-PUDDLER HELPER [address] [place] [address] Referral ID Status Reason Start Date Expiration Date V isits Requested Visits Authorized [id number] New Request 09/30/2023 10/24/2024 1 1 Reason Comments Weight Management Session Reason Comments Follow-up 6 Weeks Seborrheic Dermatitis Other tinea pedis,Right ea r impacted cerumen Morbid Obesity Reason Comments Heartburn Here to schedule Gas tro J due to GERD. [place] 08/10/2019 GERD started 18 months ago. Pre op weight 249 lbs, lowest post op 194 lbs. +DEMI getting C pap next week. Specialty Diagnoses / Procedures Referred By Shruthi perry Referred To Contact General Surgery Diagnoses Pre op Pt Name: Lino Fontenot MD: Dr. Moore Insurance: [employer] Medicare Auth#: [id number] Procedure: 70600 (Gj), 48806 (Revision), 89036 (EGD) DOS: 05/08/24 - filler date Inpatient stay Procedures NEW BARIATRIC PATIENT Sushila Saravia MD [address] [place] [address] Griselda Moore MD [address] [place] [address] Referral ID Status Reason Start Date Expiration Date V isits Requested Visits Authorized [id number] New Request 02/20/2024 03/16/2025 1 1 Reason Comments Follow-up Care Teams (unrecognized sec tion and content) Header Setup Operator Relationship Specialty Start Date End Date Transplant, Coordinator [address] [place] [phone] PCP - Drive In Waiter/Waitress 08/23/10 Mariana Miranda APRN-PUDDLER HELPER PCP - General Nurse Practitioner - Family 07/16/17 Header Setup Operator Relationship Specialty Start Date End Date Transplant, Coordinator [address] [place] [phone] PCP - Drive In Waiter/Waitress 08/23/10 Mariana Miranda APRN-PUDDLER HELPER PCP - General Nurse Practitioner - Family 07/16/17 Header Setup Operator Relationship Specialty Start Date End Date Transplant, Coordinator [address] [place] [phone] PCP - Drive In Waiter/Waitress 08/23/10 Mariana Miranda APRN-PUDDLER HELPER PCP - General Nurse Practitioner - Family 07/16/17 Header Setup Operator Relationship Specialty Start Date End Date Transplant, Coordinator [address] [place] [phone] PCP - Drive In Waiter/Waitress 08/23/10 Mariana Miranda APRN-PUDDLER HELPER PCP - General Nurse Practitioner - Family 07/16/17 Header Setup Operator Relationship Specialty Start Date End Date Transplant, Coordinator [address] [place] [address], [place] [address] PCP - Drive In Waiter/Waitress 08/23/10 Mariana Miranda CORE CUTTER AND REAMER-PUDDLER HELPER PCP - General Nurse Practitioner - Family 07/16/17 Header Setup Operator Relationship Specialty Start Date End Date Transplant, Coordinator [address] [place] [address], [place] [address] PCP - Drive In Waiter/Waitress 08/23/10 Mariana Miranda APRN-PUDDLER HELPER PCP - General Nurse Practitioner - Family 07/16/17 Header Setup Operator Relationship Specialty Start Date End Date Transplant, Coordinator [address] [place] [address], [place] [address] PCP - Drive In Waiter/Waitress 08/23/10 Mariana Miranda APRN-PUDDLER HELPER PCP - General Nurse Practitioner - Family 07/16/17 Header Setup Operator Relationship Specialty Start Date End Date Transplant, Coordinator [address] [place] [phone] PCP - Drive In Waiter/Waitress 08/23/10 Mariana Miranda APRN-PUDDLER HELPER PCP - General Nurse Practitioner - Family 07/16/17 Header Setup Operator Relationship Specialty Start Date End Date Transplant, Coordinator [address] [place] [phone] PCP - Drive In Waiter/Waitress 08/23/10 Mariana Miranda CORE CUTTER AND REAMER-PUDDLER HELPER PCP - General Nurse Practitioner - Family 07/16/17 Header Setup Operator Relationship Specialty Start Date End Date Transplant, Coordinator [address] [place] [phone] PCP - Drive In Waiter/Waitress 08/23/10 Mariana Miranda CORE CUTTER AND REAMER-PUDDLER HELPER PCP - General Nurse Practitioner - Family 07/16/17 Header Setup Operator Relationship Specialty Start Date End Date Mariana Miranda CNP [address] [place] [facility] [address] PCP - General Nurse Practitioner 04/20/22 Header Setup Operator Relationship Specialty Start Date End Date Mariana Miranda CNP [address] [place] [facility] [address] PCP - General Nurse Practitioner 04/20/22 Header Setup Operator Relationship Specialty Start Date End Date Mariana Miranda CNP [address] [place] [address] PCP - General Nurse Practitioner 04/20/22 Header Setup Operator Relationship Specialty Start Date End Date Transplant, Coordinator [address] [place] [phone] PCP - Drive In Waiter/Waitress 08/23/10 Mariana Miranda CORE CUTTER AND REAMER-PUDDLER HELPER PCP - General Nurse Practitioner - Family 07/16/17 Header Setup Operator Relationship Specialty Start Date End Date Mariana Miranda CNP [address] [place] [address] PCP - General Nurse Practitioner 04/20/22 Header Setup Operator Relationship Specialty Start Date End Date Transplant, Coordinator [address] [place] [address], [place] [address] PCP - Drive In Waiter/Waitress 08/23/10 Mariana Miranda APRN-CNP PCP - General Nurse Practitioner - Family 07/16/17 Header Setup Operator Relationship Specialty Start Date End Date Transplant, Coordinator [address] [place] [address], [place] [address] PCP - Drive In Waiter/Waitress 08/23/10 Mariana Miranda APRN-TAMY [address] [place] [phone] PCP - General Nurse Practitioner - Family 07/16/17 Header Setup Operator Relationship Specialty Start Date End Date Transplant, Coordinator [address] [place] [phone] PCP - Drive In Waiter/Waitress 08/23/10 Mariana Miranda APRN-TAMY [address] [place] [phone] PCP - General Nurse Practitioner - Family 07/16/17 Header Setup Operator Relationship Specialty Start Date End Date Transplant, Coordinator [address] [place] [phone] PCP - Drive In Waiter/Waitress 08/23/10 Mariana Miranda APRN-TAMY [address] [place] [phone] PCP - General Nurse Practitioner - Family 07/16/17 Header Setup Operator Relationship Specialty Start Date End Date Transplant, Coordinator [address] [place] [phone] PCP - Drive In Waiter/Waitress 08/23/10 Mariana Miranda APRN-PUDDLER HELPER [address] [place] [address], [place] [address] PCP - General Nurse Practitioner - Family 07/16/17 Header Setup Operator Relationship Specialty Start Date End Date Transplant, Coordinator [address] [place] [address], [place] [address] PCP - Drive In Waiter/Waitress 08/23/10 Mariana Miranda APRN-PUDDLER HELPER [address] [place] [address], [place] [address] PCP - General Nurse Practitioner - Family 07/16/17 Header Setup Operator Relationship Specialty Start Date End Date Transplant, Coordinator [address] [place] [address], [place] [address] PCP - Drive In Waiter/Waitress 08/23/10 Mariana Miranda APRN-PUDDLER HELPER [address] [place] [address], [place] [address] PCP - General Nurse Practitioner - Family 07/16/17 Header Setup Operator Relationship Specialty Start Date End Date Transplant, Coordinator [address] [place] [address], [place] [address] PCP - Drive In Waiter/Waitress 08/23/10 Mariana Miranda APRN-PUDDLER HELPER [address] [place] [address], [place] [address] PCP - General Nurse Practitioner - Family 07/16/17 Header Setup Operator Relationship Specialty Start Date End Date Transplant, Coordinator [address] [place] [address], [place] [address] PCP - Drive In Waiter/Waitress 08/23/10 Mariana Miranda APRN-PUDDLER HELPER [address] [place] [phone] PCP - General Nurse Practitioner - Family 07/16/17 Header Setup Operator Relationship Specialty Start Date End Date Transplant, Coordinator [address] [place] [phone] PCP - Drive In Waiter/Waitress 08/23/10 Mariana Miranda APRN-PUDDLER HELPER [address] [place] [phone] PCP - General Nurse Practitioner - Family 07/16/17 Header Setup Operator Relationship Specialty Start Date End Date Transplant, Coordinator [address] [place] [phone] PCP - Drive In Waiter/Waitress 08/23/10 Mariana Miranda APRN-PUDDLER HELPER [address] [place] [phone] PCP - General Nurse Practitioner - Family 07/16/17 11/19/23 Header Setup Operator Relationship Specialty Start Date End Date Transplant, Coordinator [address] [place] [phone] PCP - Drive In Waiter/Waitress 08/23/10 Header Setup Operator Relationship Specialty Start Date End Date Transplant, Coordinator [address] [place] [phone] PCP - Drive In Waiter/Waitress 08/23/10 Mariana Miranda APRN-PUDDLER HELPER [address] [place] [phone] PCP - General Nurse Practitioner - Family 07/16/17 11/19/23 Sushila Saravia MD [address] [place] [address] PCP - General Family Medicine 12/04/23 Header Setup Operator Relationship Specialty Start Date End Date Transplant, Coordinator [address] [place] [phone] PCP - Drive In Waiter/Waitress 08/23/10 Sushila Saravia MD [address] [place] [address] PCP - General Family Medicine 12/04/23 Header Setup Operator Relationship Specialty Start Date End Date Transplant, Coordinator [address] [place] [phone] PCP - Drive In Waiter/Waitress 08/23/10 Sushila Saravia MD [address] [place] [address] PCP - General Family Medicine 12/04/23 Header Setup Operator Relationship Specialty Start Date End Date Transplant, Coordinator [address] [place] [phone] PCP - Drive In Waiter/Waitress 08/23/10 Sushila Saravia MD [address] [place] [address] PCP - General Family Medicine 12/04/23 Header Setup Operator Relationship Specialty Start Date End Date Transplant, Coordinator [address] [place] [phone] PCP - Drive In Waiter/Waitress 08/23/10 Sushila Saravia MD [address] [place] [address] PCP - General Family Medicine 12/04/23 Team Status: Active Member Role Status Dates Cayla Velazquez APRN SENIOR MOBILE WEB DEVELOPER-C Primary Care Provider Active Team Status: Inactive Member Role Status Dates Cayla Velazquez APRN SENIOR MOBILE WEB DEVELOPER-C Primary Care Provider, Attending Provider Active Start: February 24, 2024 End: February 24, 2024 Scheduled Active and Recently Administ ered Medications (unrecognized section and content) Medication Order 04/19/2022 04/20/2022 04/21/2022 proparacaine (ALCAINE) 0.5 % ophthalmic solution 2 drop (COMPLETED) 2 drop, Right Eye, ONCE, 1 dose, On 04/21/22 at 1130 1115 (Given - Provid er: Andrew Guan RN - Comment: per Dr. Archuleta for bedside procedure) Scheduled Medication Order 10/22/2022 10/23/2022 10/24/2022 [id number] (NEOSPORIN) 400-5-5000 ointment 1 Application. (COMPLETED) 1 Application., Topical, ONCE, 1 dose, On 10/24/22 at 0800 0749 (Given - Provid er: Amairani Au RN - Comment: was applied and rest sent home with patient) Scheduled Medication Order 03/09/2023 03/10/2023 03/11/2023 Acetaminophen (TYLENOL) tablet 650 mg (COMPLETED) 650 mg, Oral, ONCE, 1 dose, On 03/11/23 at 0000 2348 (Given - Provider: Patience Hurtado RN) Goals (unrecognized section and content) Goals may be documented in a n alternate section FOR RECORDS PERTAINING TO PATIENTS WHO ARE [...] BE BASED ON THE PRIMARY CLINICAL RECORDS. [facility]. provides no warranty or guarantee of the accuracy or completeness of information in this document.
== END 2024-02-24 11:06 | disposition home or self-care (01) ==
LOC: RAD 11:06
PROVIDERS: PCP Nurse Practitioner Family; Visit Provider Nurse Practitioner Family
DX: M25.571 Pain in right ankle and joints of right foot (principal)
CPT/HCPCS: 73610

== ENCOUNTER 2024-02-27 10:12 | Outpatient (OUT) | payer MEDICARE, SELFPAY ==
[2024-02-27 10:48] LABS: Basophils Absolute Auto 0.1 10^3/uL (0.0-0.1); Basophils Percent Auto 0.6 % (0.2-2.0); Eosinophils Absolute Auto 0.1 10^3/uL (0.0-0.7); Eosinophils Percent Auto 1.5 % (0.9-7.0); Hemoglobin 10.9 g/dL (14.0-18.0); Immature Granulocytes Abs Auto 0.02 10^3/uL (0.00-0.03); Immature Granulocytes Pct Auto 0.2 % (0.0-0.5); Lymphocytes Absolute Auto 1.9 10^3/uL (1.2-3.8); Lymphocytes Percent Auto 22.8 % (20.5-60.0); Mean Corpuscular Hemoglobin 29.8 pg (25.9-34.0); Mean Corpuscular Volume 90.2 fL (80.0-94.0); Mean Platelet Volume 11.1 fL (9.5-13.5); Monocytes Absolute Auto 0.5 10^3/uL (0.3-0.8); Monocytes Percent Auto 5.5 % (1.7-12.0); Neutrophils Absolute Auto 5.7 10^3/uL (1.4-6.5); Neutrophils Percent Auto 69.4 % (43.0-75.0); Platelet Count 203 10^3/uL (150-450); Red Blood Count 3.66 10^6/uL (4.70-6.10); Red Cell Distribution Width 12.1 % (11.0-15.0); White Blood Count 8.2 10^3/uL (4.0-11.0)
[2024-02-27 11:26] LABS: Alanine Aminotransferase 21 U/L (16-63); Albumin Globulin Ratio 1.2; Albumin Level 4.1 g/dL (3.4-5.0); Alkaline Phosphatase 81 U/L (46-116); Anion Gap 15.6; Aspartate Amino Transferase 15 U/L (15-37); BUN Creatinine Ratio 19.9; Bilirubin Total 0.3 mg/dL (0.2-1.0); Calcium 9.6 mg/dL (8.5-10.1); Carbon Dioxide 24.1 mmol/L (21.0-32.0); Chloride 103 mmol/L (98-107); Estimated GFR (African America 29 (>=60); Estimated GFR (Non-African Ame 24 (>=60); Globulin 3.5 g/dL; Glucose 93 mg/dL (74-106); Potassium 4.7 mmol/L (3.5-5.1); Sodium 138 mmol/L (136-145); Total Protein 7.6 g/dL (6.4-8.2)
[2024-02-27 11:29] LABS: Chol HDL Ratio 3.4; Cholesterol 160 mg/dL (<=200); HDL Cholesterol 47 mg/dL (40-60); LDL Cholesterol Calculated 87.8 mg/dL; Triglycerides 126 mg/dL (<=150); VLDL CHOLESTEROL 25.2 mg/dL
[2024-02-27 11:47] LABS: Prostate Specific Antigen Scrn 1.95 ng/mL (<=4.00)
== END 2024-02-27 10:13 | disposition home or self-care (01) ==
LOC: LAB 10:14
PROVIDERS: PCP Nurse Practitioner Family; Visit Provider Nurse Practitioner Family
DX: Z01.818 Encounter for other preprocedural examination (principal); Z94.0 Kidney transplant status; Z98.84 Bariatric surgery status; Z13.220 Encounter for screening for lipoid disorders; Z12.5 Encounter for screening for malignant neoplasm of prostate
CPT/HCPCS: 36415; 80053; 80061; 81003; 85025; G0103

== ENCOUNTER 2024-02-27 10:15 | Outpatient (OUT) | payer MEDICARE, SELFPAY ==
[2024-02-27 10:47] LABS: Bilirubin Urine NEGATIVE (NEGATIVE); Blood Urine NEGATIVE (NEGATIVE); Clarity Urine CLEAR (CLEAR); Color Urine LT. YELLOW (YELLOW); Glucose Urine UA NEGATIVE (NEGATIVE); Ketones Urine NEGATIVE (NEGATIVE); Leukocyte Esterase Urine NEGATIVE (NEGATIVE); Nitrite Urine NEGATIVE (NEGATIVE); Protein Urine NEGATIVE (NEG/TRACE); Specific Gravity Urine 1.015 (1.005-1.025); Urobilinogen Urine 0.2 EU/dL (0.2-1.0)
[2024-02-27 10:48] LABS: Urine Microscopic Indicated NO
== END 2024-02-27 10:16 | disposition home or self-care (01) ==
PROVIDERS: PCP Nurse Practitioner Family
DX: Z01.818 Encounter for other preprocedural examination (principal)
CPT/HCPCS: 81003

== ENCOUNTER 2024-03-04 08:34 | Outpatient (OUT) | payer MEDICARE, SELFPAY ==
--- NOTE | 2024-03-04 | XR_ITS ---
[address] [address] Patient Name: ZOIE HEATH MRN: [id number] date: 1965 Sex: M Assigned Patient Location: Current Patient Location: Accession/Order Number: [id number] Exam Date: 03/04/2024 08:38 Report Date: 03/04/2024 18:55 At the request of: BECCA FRANZ Procedure: XR foot RT min 3V EXAM: XR ankle RT min 3V, XR foot RT min 3V HISTORY: RIGHT ANKLE PAIN COMPARISON: None. FINDINGS/IMPRESSION: 1. No acute fracture or dislocation. 2. Ankle mortise is maintained. 3. Small calcaneal Achilles and plantar enthesophytes. 4. No ankle joint effusion. 5. Subcutaneous soft tissue edema about the foot. 6. Mild degeneration of the interphalangeal joints. 7. Normal alignment of the forefoot. Electronically authenticated by: JANELL VALERIO Date: 03/04/2024 18:55
--- NOTE | 2024-03-04 | XR_ITS ---
[address] [address] Patient Name: ZOIE HEATH MRN: [id number] date: 1965 Sex: M Assigned Patient Location: Current Patient Location: Accession/Order Number: [id number] Exam Date: 03/04/2024 08:38 Report Date: 03/04/2024 18:55 At the request of: BECCA FRANZ Procedure: XR ankle RT min 3V EXAM: XR ankle RT min 3V, XR foot RT min 3V HISTORY: RIGHT ANKLE PAIN COMPARISON: None. FINDINGS/IMPRESSION: 1. No acute fracture or dislocation. 2. Ankle mortise is maintained. 3. Small calcaneal Achilles and plantar enthesophytes. 4. No ankle joint effusion. 5. Subcutaneous soft tissue edema about the foot. 6. Mild degeneration of the interphalangeal joints. 7. Normal alignment of the forefoot. Electronically authenticated by: JANELL VALERIO Date: 03/04/2024 18:55
== END 2024-03-04 08:35 | disposition home or self-care (01) ==
LOC: EC 08:35
PROVIDERS: PCP Nurse Practitioner Family; Visit Provider Podiatrist Foot & Ankle Surgery
DX: M25.571 Pain in right ankle and joints of right foot (principal); M25.474 Effusion, right foot
CPT/HCPCS: 73610; 73630

== ENCOUNTER 2024-03-04 11:05 | Outpatient (RCR) | payer MEDICARE, SELFPAY | END 2024-03-21 15:25 | disposition home or self-care (01) | LOC: PT 11:05 | PROVIDERS: PCP Nurse Practitioner Family; Visit Provider Podiatrist Foot & Ankle Surgery | DX: M25.571 Pain in right ankle and joints of right foot (principal) | CPT/HCPCS: 97010; 97035; 97110; 97112; 97162 ==

== ENCOUNTER 2024-04-15 09:14 | Outpatient (OUT) | payer MEDICARE, SELFPAY ==
[2024-04-15 09:28] LABS: Basophils Percent Auto 0.8 % (0.2-2.0); Eosinophils Absolute Auto 0.2 10^3/uL (0.0-0.7); Eosinophils Percent Auto 2.8 % (0.9-7.0); Hematocrit 28.6 % (42.0-54.0); Hemoglobin 9.1 g/dL (14.0-18.0); Immature Granulocytes Abs Auto 0.01 10^3/uL (0.00-0.03); Immature Granulocytes Pct Auto 0.2 % (0.0-0.5); Lymphocytes Absolute Auto 1.4 10^3/uL (1.2-3.8); Lymphocytes Percent Auto 26.5 % (20.5-60.0); Mean Corpuscular HGB Conc 31.8 g/dL (29.9-35.2); Mean Corpuscular Volume 94.4 fL (80.0-94.0); Mean Platelet Volume 11.9 fL (9.5-13.5); Monocytes Absolute Auto 0.3 10^3/uL (0.3-0.8); Monocytes Percent Auto 5.3 % (1.7-12.0); Neutrophils Absolute Auto 3.4 10^3/uL (1.4-6.5); Neutrophils Percent Auto 64.4 % (43.0-75.0); Platelet Count 205 10^3/uL (150-450); Red Blood Count 3.03 10^6/uL (4.70-6.10); Red Cell Distribution Width 12.5 % (11.0-15.0); White Blood Count 5.3 10^3/uL (4.0-11.0)
[2024-04-15 10:32] LABS: Alanine Aminotransferase 17 U/L (16-63); Albumin Globulin Ratio 1.2; Albumin Level 3.7 g/dL (3.4-5.0); Alkaline Phosphatase 68 U/L (46-116); Aspartate Amino Transferase 8 U/L (15-37); BUN Creatinine Ratio 10.5; Bilirubin Total 0.4 mg/dL (0.2-1.0); Calcium 9.6 mg/dL (8.5-10.1); Carbon Dioxide 24.4 mmol/L (21.0-32.0); Chloride 106 mmol/L (98-107); Estimated GFR (African America 24 (>=60 mL/min/1.73m^2); Estimated GFR (Non-African Ame 20 (>=60 mL/min/1.73m^2); Globulin 3.2 g/dL; Glucose 99 mg/dL (74-106); Potassium 5.4 mmol/L (3.5-5.1); Sodium 140 mmol/L (136-145); Total Protein 6.9 g/dL (6.4-8.2)
== END 2024-04-15 09:15 | disposition home or self-care (01) ==
LOC: LAB 09:16
PROVIDERS: PCP Nurse Practitioner Family; Visit Provider Nurse Practitioner Family
DX: D64.9 Anemia, unspecified (principal); Z94.0 Kidney transplant status; R79.89 Other specified abnormal findings of blood chemistry
CPT/HCPCS: 36415; 80053; 85025

== ENCOUNTER 2024-05-06 09:03 | Outpatient (OUT) | payer MEDICARE, SELFPAY ==
--- NOTE | 2024-05-06 09:10 | MR_ITS ---
[address] [address] Patient Name: ZOIE HEATH MRN: [id number] date: 1965 Sex: M Assigned Patient Location: MRI Current Patient Location: Accession/Order Number: [id number] Exam Date: 05/06/2024 09:35 Report Date: 05/08/2024 16:06 At the request of: BECCA FRANZ Procedure: MR ankle RT wo con EXAM: MR ankle RT wo con REASON FOR EXAM: Peroneal Tear. TECHNIQUE: Multiplanar, multisequence imaging of the right ankle was performed without contrast COMPARISON: Radiographs 03/04/2024. FINDINGS: There is fusiform thickening and intermediate signal the Achilles tendon with distal Achilles enthesophytes consistent with tendinosis. No tear is evident. Trace amount of fluid is present in the retrocalcaneal bursa. The visualized plantar fascial appears intact with a tiny inferior calcaneal spur. Laterally, the peroneal tendons are thickened with intermediate signal consistent with tendinosis. Probable intermediate grade partial tearing of the peroneus longus tendon, which extends from the peroneal tubercle to the peroneal tunnel spanning approximately 4 cm in AP dimension. A high-grade tear is not evident. A definite tear of the peroneus brevis tendon is not evident. The superficial peroneal retinaculum is intact. The lateral ligaments are grossly intact. Medially, mild thickening of the posterior tibial tendon, consistent with tendinosis. No tear. The flexor pollicis longus and flexor digitorum longus tendons are intact. The deep deltoid ligament is intact. The spring ligament is intact. The Lisfranc ligament appears intact. Anteriorly, the anterior extensor tendons demonstrate normal thickness and signal without tendinosis or tear. The bone marrow signal is without fracture. The talar dome is congruent. The subtalar joints intact. The sinus tarsi is moderately edematous. The midfoot appears congruent. The plantar musculature demonstrates normal bulk and signal. Nonspecific subcutaneous edema about the lower extremity. MR/MR ankle RT wo con IMPRESSION: 1. Peroneal tendinosis with intermediate grade partial tearing spanning approximately 4 cm in longitudinal dimension from the peroneal tubercle to the peroneal tunnel. A complete rupture not evident. 2. 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 3. Mildly edematous sinus tarsi Electronically authenticated by: INDIO SZYMANSKI Date: 05/08/2024 16:06
--- OUTSIDE RECORDS SUMMARY | 2024-05-06 09:27 | XMS_ITS | CCD ---
Author Organization [facility] CliniSyor Care Team Providers Care Powerhouse Electrician Name Role Phone UNKNOWN, PROVIDER Unavailable Unavailable [...] UNKNOWN, PROVIDER Unavailable Unavailable Transplant, Coordinator Unavailable Trubachik, Geovanna A Unavailable FOSTER, ARI Unavailable Unavailable FOSTER, ARI Unavailable Unavailable FOSTER, ARI Unavailable Unavailable AVERY, ROSY L Unavailable Unavailable AVERY, ROSY L Unavailable Unavailable SELF, SELF Unavailable Unavailable AVERY, ROSY L Unavailable Unavailable AVERY, ROSY L Unavailable Unavailable AVERY, ROSY L Unavailable Unavailable SELF, SELF Unavailable Unavailable FOSTER, ARI Unavailable Unavailable FOSTER, ARI Unavailable Unavailable JONES, NARGIS Unavailable Unavailable JONES, NARGIS Unavailable Unavailable Trubachik, Geovnana A Primary Care Unavailable Familia Stringer Attending Unavailable Transplant, Coordinator Unavailable Trubachik TRIM SAWYER-SHAKE CUTTER, Geovanna A Primary Care Provide r Transplant, Coordinator Unavailable [phone] Transplant, Coordinator Unavailable [phone] Trubachik TRIM SAWYER-SHAKE CUTTER, Geovanna A Primary Care Provide r Trubachik SHAKE CUTTER, [facility] Shu Primary Care Provider Trubachik [facility], [facility] A Primary Care Provide r JAYSHREE VILCHIS Attending Unavailable TRUBACHIK, GEOVANNA SHU Primary Care Unavailable JAYSHREE VILCHIS Attending Unavailable TRUBACHIK, GEOVANNA SHU Primary Care Unavailable CHARLEY PASTRANA Attending Unavailable TRUBACHIK, GEOVANNA SHU Primary Care Unavailable TRUBACHIK, GEOVANNA SHU Primary Care Unavailable MARY MOREIRA Attending Unavailable Transplant, Coordinator Unavailable Trubawilliamson [facility] hospit[facility], [facility] A Primary Care Provide r Transplant, Coordinator Unavailable Trubachik [facility], [facility] A Primary Care Provide r Transplant, Coordinator Unavailable Trubawilliamson arh hospitalk [facility], [facility] Primary Care Provider Unavailable Transplant, Coordinator Unavailable [facility] Primary [facility] Provider [facility]osef [facility] Primary Care Provider TRUBACHIK, GEOVANNA Primary Care Unavailable SELF, SELF Referring Unavailable TRUBACHIK, GEOVANNA Attending Unavailable SELF, SELF Referring Unavailable KHAVARI, FERESHTE Attending Unavailable KHAVARI, FERESHTE Primary Care Unavailable SELF, SELF Referring Unavailable KHAVARI, FERESHTE Attending Unavailable TRUBACHIK, GEOVANNA Primary Care Unavailable BARK, JAVAN Referring Unavailable BARK, JAVAN Attending Unavailable TRUBACHIK, GEOVANNA Primary Care Unavailable BARK, JAVAN Attending Unavailable TRUBACHIK, GEOVANNA Referring Unavailable TYCHONISHAMEKA, LIZA Attending Unavailabl e TYCHONISHAMEKA, LIZA Referring Unavailabl e TYCHONIEVICH, LIZA Referring Unavailabl e TANNACHOADELA, LIZA Attending Unavailabl e ILIA SHAFFER Attending Unavailable TRUBACHIK, GEOVANNA Primary Care Unavailable TRUBACHIK, GEOVANNA Primary Care Unavailable BARK, JAVAN E Referring Unavailable BARK, JAVAN E Attending Unavailable TRUBACHIK, GEOVANNA Primary Care Unavailable BARK, JAVAN E Referring Unavailable BARK, JAVAN E Attending Unavailable Rohrbacher TAMY [facility] Provider Roberto Carlos Davey MD Unavailable ROHCATHERINEACHEStanley CAYLA Referring Unavailable ROHACHER, [facility] Primary Care Unavailable CAYLA GONZALEZ Attending Unavailable LIZA PENN Attending Unavaila ble SELF, SELF Referring Unavailable [facility], [facility] Primary Care Unavailable LIZA PENN Referring Unavaila ble GULSHAN, IVELISSE K Attending Unavailable [facility] Primary Care Unavailable SELF, SELF Referring Unavailable SALBADOR LAWRENCE Attending Unavailable [facility] Primary Care Unavailable GIANGNAHUMELLA ANNE-MARIE Referring Unavailable CYELLA ANNE-MARIE Attending Unavailable K[facility]AVAVA, [facility] Primary Care Unavailable LIZA PENN Attending Unavaila ble TRUBACHIK, [facility] Primary Care Unavailable SELF, SELF Referring Unavailable SELF, SELF Referring Unavailable [facility] Primary Care Unavailable [facility] Primary Care Unavailable SELF, SELF Referring Unavailable GRISELDA GALLEGOS Attending Unavailable [facility] Primary Care Unavailable LIZA PENN Attending Unavaila ble SELF, SELF Referring Unavailable SELF, SELF Referring Unavailable SAM WEISS Attending Un[facility] Primary Care Unavailable [facility] Primary Care Unavailable SWEIGERT, ISABELL E Referring Unavailable SWEIGERT, ISABELL E Attending Unavailable [facility] Primary Care Unavailable GRISELDA GALLEGOS Referring Unavailable SELF, SELF Referring Unavailable KHAVARI, FERESHTE Primary Care Unavailable LIZA PENN Referring Unavaila ble TRUBACHIK, [facility] Primary Care Unavailable GRISELDA GALLEGOS Attending Unavailable KHAVARI, FERESHTE Primary Care Unavailable KHAVARI, FERESHTE Referring Unavailable SELF, SELF Referring Unavailable GRISELDA GALLEGOS Attending Unavailable KHAVARI, FERESHTE Primary Care Unavailable LIZA PENN Attending Unavaila ble KHAVARI, [facility] Primary Care Unavailable [facility], GEOVANNA Referring Unavailable ROHRBACHER, [facility] Primary Care Unavailable SELF, SELF Referring Unavailable ROSY, GRISELDA A Attending Unavailable SELF, SELF Referring Unavailable GEOVANNA GONZALES Primary Care Unavailable ALICIAYONYEVAN PachecoTone Angel Attending Unavailable [facility] Unavailable KELSEY LOZANO Attending Unavailable LINNAUER, GRISELDA A Referring Unavailable [facility] Care Unavailable KELSEY LOZANO Attending Unavailable LINNAUER, GRISELDA A Referring Unavailable [facility] Care Unavailable KHAVARI, FERESHTE Referring Unavailable BRETHAUER, GRISELDA A Attending Unavailable BRETHAUER, GRISELDA A Admitting Unavailable KHAVARI, FERESHTE Primary Care Unavailable CONSULT, NEPHROLOGY - TRANSPLANT (MED) Consultin g Unavailable NATHAN, [facility] Unavailable SELF, SELF Referring Unavailable ROSY GRISELDA A Attending Unavailable Allergies Allergy Classification Reported Allergen(s) Allergy Type Date of Onset Reaction(s) Facility (20 sources) *Seasonal Propensity to adverse reactions to substance [facility] ([facility] sources) Non-steroidal anti-inflammator y agent Propensity to adverse reactions to drug 04-16-2023 [facility] Medications Current Medications Medication Drug Class(es) Dates Sig (Normalized) Sig (Original) acyclovir 0.05 mg/mg topical ointment (5 sources) Herpesvirus Nucleoside Analog DNA Polymerase Inhibitor, Herpes Simplex Virus Nucleoside Analog DNA Polymerase Inhibitor, Herpes Zoster Virus Nucleoside Analog DNA Polymerase Inhibitor Start: 03-28-2018 acyclovir 5 % Ointment Apply topically to all lesions 6 times daily X 7 days. 1 Tube 0 03/28/2018 Active [id number] 200 actuat albuterol 0.09 mg/actuat metered dose [...] Daily August 06, 2018 1:00am Start: 10-14-2017 End: 03-28-2024 aspirin 81 MG Chew Tab chewa ble tablet Chew 1 tablet daily every morning. Take this 1 to 2 hours after taking sucralfate slurry. 30 tablet 11 03/27/2024 Active azithromycin 250 mg oral tablet (2 [...] . 20 capsule 0 08/30/2022 09/06/2022 Active carBAMazepine 100 mg chewable tablet (20 sources) Mood Stabilizer Start: 04-21-2021 End: 12-04-2023 carBAMazepine 100 MG Chew Tab Take 2 tablets daily in the morning and 3 tablets daily in the evening 12/04/2023 Active Start: 08-06-2018 End: 03-28-2024 take 200 mg by mouth once daily in the morning 200 mg, Oral, DAILY EVERY MORNING, First dose (after last modification) on Sat03/24/24 at 0900, Until Discontinued Start: 08-06-2018 End: 03-28-2024 take 300 mg by mouth once daily 300 mg, Oral, Nightly, First dose on Sat03/23/24 at 2100, Until Discontinued Start: 12-30-2017 carBAMazepine 100 MG Chew Tab [...] tablet (20 sources) Histamine-1 Receptor Antagonist Start: 08-06-2018 End: 03-28-2024 take 1 tablet by mouth once daily Cetirizine 10 MG tablet Take 1 tablet by mouth daily. 90 tablet 3 12/04/2023 Active Start: 02-11-2018 End: 05-20-2018 take 1 tablet by mouth once daily cetirizine 10 MG Tab tablet Take 1 tablet by mouth daily. 30 tablet 5 05/20/2018 Active Cpap (Continuous Positive rway Pressure) (2 sources) Start: 02-24-2024 Cpap (Continuo us Positive Airway Pressure) Active 0 .Route February 24, 2024 12:00am As directed Start: 02-24-2024 Cpap (Continuo us Positive Airway Pressure) Active 0 .ROUTE February 24, 2024 12:00am As directed fluticasone propionate 0.05 mg/actuat metered dose nasal spray (5 sources) Corticosteroid Start: 04-15-2017 fluticasone 50 MCG/ACT Suspension nasal spray 2 sprays by Nasal route daily. 1 Bottle 2 04/15/2017 Active ketoconazole 20 mg/ml topical cream (20 sources) Azole Antifungal Start: 12-04-2023 Ketoconazole 2 % Cream cream [...] times weekly. 120 mL 5 11/05/2017 Active Magnesium Oxide (20 sources) Start: 09-18-2021 [...] tablet (20 sources) Leukotriene Receptor Antagonist Start: 08-06-2018 End: 03-28-2024 take 1 tablet by mouth once daily Montelukast 10 MG tablet Take 1 tablet by mouth daily. 90 tablet 3 12/04/2023 Active Start: 03-11-2018 take 1 tablet by bernice th once daily montelukast 10 MG Tab tablet Take 1 tablet by mouth daily. 30 tablet 5 03/11/2018 Active multi (2 sources) Start: 02-24-2024 multi Active P O February 24, 2024 12:00am ofloxacin 3 mg/ml ophthalmic solution (4 sources) Quinolone Antimicrobial Start: 04-21-2022 End: 09-08-2022 take 1 drop(s) into the eye(s) four times daily ofloxacin 0.3 % ophthalmic solution Place 1 drop in right eye 4 times daily. 5 mL 0 04/21/2022 Active ondansetron 4 mg oral tablet (11 sources) Serotonin-3 Receptor Antagonist Start: 04-07-2024 take 4 mg by mouth every six hours Ondansetron Hcl Active 4 MG PO Every 6 hours April 07, 2024 12:00am Start: 03-27-2024 End: 04-10-2024 Ondansetron 4 MG tablet Mariangel cations: Nausea Take 1 tablet by mouth 3 times daily for 14 days. Take scheduled for the first 7 days, then take as needed 42 tablet 03/27/2024 04/10/2024 Active Start: 03-23-2024 End: 03-28-2024 Ondansetron (ZOFRAN) tablet 4 mg Start: 02-22-2017 take 1 tablet by bernice th every eight hours as needed ondansetron 4 MG Tab take 1 tablet by mouth every 8 hours as needed for Nausea / Vomiting or Nausea.. 90 tablet 1 02/22/2017 Active pantoprazole 40 mg delayed release oral tablet (20 sources) Proton Pump Inhibitor Start: 02-24-2024 Pantoprazole Active MG PO February 24, 2024 12:00am Start: 12-31-2023 End: 03-28-2024 Pantoprazole (Protonix) [address] tablet DR Take 1 tablet by mouth 2 times daily. Take 90 days after surgery for ulcer prevention, then stop taking 03/27/2024 Active Start: 03-07-2023 take 1 tablet by [...] 180 tablet 0 12/10/2022 Active polymyxin b 20863 unt/ml / trimethoprim 1 mg/ml ophthalmic solution [...] the eye(s) every four hours polymyxin b-trimethoprim 32833-3.1 UNIT/ML-% Solution ophthalmic solution Place 1 drop in both eyes every 4 hours for 7 days. 10 mL 0 03/02/2022 03/09/2022 Active sucralfate 1000 mg oral tablet (11 sources) Aluminum Complex Start: 03-23-2024 End: 06-25-2024 take 1 tablet by mouth twice daily before mealtime Sucralfate 1 g tablet Take 1 tablet by mouth 2 times daily (take before meals). Put pill into a tablespoon of water to create a slurry. Take for 90 days after surgery for ulcer prevention. 60 tablet 2 03/27/2024 06/25/2024 Active tacrolimus 1 mg oral capsule (20 sources) Calcineurin Inhibitor Immunosuppressant Start: 04-07-2024 take 4 mg by mouth every twelve hours Tacrolimus Active 4 MG PO Q12H April 07, 2024 1:59pm Start: 03-27-2024 End: 03-28-2024 take 4 mg by mouth every twelve hours 4 mg, Oral, EVERY 12 HOURS, First dose (after last modification) on Sat03/27/24 at 2100, Until Discontinued, Do not split, break, crush, or open doses of this medication. Contact pharmacy if altered dose or route needed. Do not split, break, crush, or open doses of this medication. Contact pharmacy if altered dose or route needed. Start: 03-25-2024 End: 03-27-2024 take 5 mg by mouth every twelve hours 5 mg, Oral, EVERY 12 HOURS, First dose on Sat03/25/24 at 2100, Until Discontinued, Do not split, break, crush, or open doses of this medication. Contact pharmacy if altered dose or route needed. Do not split, break, crush, or open doses of this medication. Contact pharmacy if altered dose or route needed. Start: 03-23-2024 End: 03-25-2024 6 mg, Oral, EVERY 12 HOURS, First dose on Sat03/23/24 at 2100, Until Discontinued, Caution check route of administration. For sublingual administration, place liquid under tongue and allow absorption. Start: 05-18-2021 End: 12-04-2023 take 1 capsule by mouth twice daily Tacrolimus (PROGRAF) 1 MG capsule Take 6 capsules by mouth 2 times daily. 12/04/2023 Active Start: 08-06-2018 End: 04-07-2024 take 6 mg by mouth every twelve hours Tacrolimus Discontinued 6 MG PO Q12H August 06, 2018 1:00am April 07, 2024 2:01pm Start: 02-27-2018 take 6 capsules by m outh every twelve hours, then take 1 capsule by mouth tacrolimus (generic) 1 MG Cap capsule Take 6 capsules by mouth every 12 hours. Diagnosis Code: ICD 9:V42.0, ICD 10:Z94.0 - Kidney transplant 09/25/2016 360 capsule 11 02/27/2018 Active tamsulosin hydrochloride 0.4 mg oral capsule (5 sources) alpha-Adrenergic Matthew Start: 04-21-2024 take 1 capsule by mouth once daily Tamsulosin HCl 0.4 MG capsule Take 1 capsule by mouth daily. 90 capsule 3 04/21/2024 Active terbinafine hydrochloride 10 mg/ml topical cream (20 sources) Allylamine Antifungal Start: 12-04-2023 Terbinafine 1 % Cream cream Indications: Tinea pedis, unspecified laterality Place [...] upper arms 75 g 0 03/02/2022 Active Completed/Discontinued Medications Medication Drug Class(es) Dates Sig (Normalized) Sig (Original) acetaminophen 325 mg oral tablet (13 sources) Start: 03-23-2024 End: 03-28-2024 take 1 tablet by mouth every six hours 650 mg, Oral, EVERY 6 HOURS NON-STANDARD, First dose on Sat03/23/24 at 1530, Until Discontinued, Administer if tolerating PO. Do not exceed 4000 mg in 24 hours., Post-op/Post-Proc Start: 03-23-2024 End: 03-23-2024 take 4000 mg by mouth every twenty-four hours 975 mg, Oral, ONCE, 1 dose, On Sat03/23/24 at 0845, Maximum dose of acetaminophen is 4000 mg from all sources in 24 hours., Pre-op/Pre-Proc Start: 03-11-2023 End: 03-11-2023 Acetaminophen (TYLENOL) tabl et 650 mg Start: 01-25-2022 End: 12-10-2022 take 3 tablets by mouth every eight hours acetaminophen 325 MG tablet Take 3 tablets by mouth every 8 hours for 5 days. 45 tablet 0 01/25/2022 12/10/2022 Discontinued (Therapy completed) Ampicillin-Sulbactam Sodium (UNASYN) 3 g in sodium chloride 0.9% (MB PLUS) 100 mL (total volume) IVPB (1 source) Start: 03-27-2024 End: 03-27-2024 3 g, Intravenous, Administer over 30 Minutes, WOODS RIDER TO PROCEDURE, 1 dose, Starting on Sat03/27/24 at 1017, Until Sat03/27/24 at 1501, Surgical Prophylaxis, Initiate antibiotic administration 30-60 minutes prior to surgical incision and complete administration prior to surgical incision., Pre-op/Pre-Proc Aprepitant (APONVIE) injection 32 mg (1 source) Start: 03-23-2024 End: 03-23-2024 32 mg, Intravenous, ONCE, 1 dose, On Sat03/23/24 at 0845, Give by rapid IV push over 30 seconds. bacitracin 0.5 unt/mg / neomycin 0.0035 mg/mg / polymyxin b 10 unt/mg topical ointment (1 source) Aminoglycoside Antibacterial, Polymyxin-class Antibacterial Start: 10-24-2022 End: 10-24-2022 neomycin-bacitracin -polymyxin (NEOSPORIN) 400-5-5000 ointment 1 Application. calcium chloride 0.0014 meq/ml / potassium chloride 0.004 meq/ml / sodium chloride 0.103 meq/ml / sodium lactate 0.028 meq/ml injectable solution (3 sources) Start: 03-23-2024 End: 03-28-2024 Intravenous, at 125 mL/hr, CONTINUOUS, Starting on Sat03/27/24 at 0000, Until Sat03/28/24 at 1526 calcium citrate 1040 mg oral tablet (20 sources) Start: 02-24-2024 End: 04-07-2024 take 500 mg by mouth once daily Calcium Citrate Discontinued 500 MG PO Daily February 24, 2024 12:00am April 07, 2024 2:01pm End: 03-27-2024 take 600 mg by mouth twice daily CALCIUM CITRATE PO Take 600 mg by mouth 2 times daily. 03/27/2024 Discontinued (Stop Taking at Discharge) take 600 mg by mouth twice daily CALCIUM CITRATE PO Take 600 mg by mouth 2 times daily. Active take 1200 mg by mout h twice daily CALCIUM CITRATE PO Take 1,200 mg by mouth 2 times daily. Active take 1200 mg by mout h once daily CALCIUM CITRATE PO Take 1,200 mg by mouth daily. 0 Active cefTRIAXone 1000 mg injection (2 sources) Cephalosporin Antibacterial Start: 10-26-2022 End: 10-26-2022 cefTRIAXone (ROCEPHIN) injection 1,000 mg Start: 10-26-2022 End: 10-26-2022 cefTRIAXone (ROCEPHIN) injec tion 1,000 mg chlorthalidone 25 mg oral tablet (18 sources) Thiazide-like Diuretic Start: 02-24-2024 End: 04-07-2024 take 25 mg by mouth once daily Chlorthalidone Discontinued 25 MG PO Daily February 24, 2024 12:00am April 07, 2024 2:00pm cyclobenzaprine hydrochloride 10 mg oral tablet (1 source) Muscle Relaxant Start: 03-23-2024 End: 03-28-2024 take 5 mg by mouth three times daily as needed for pain 5 mg, Oral, 3 TIMES DAILY NEEDED, Starting on Sat03/23/24 at 1459, Until Sat03/28/24 at 1527, Mild Pain, Post-op/Post-Proc 0.4 ml enoxaparin sodium 100 mg/ml prefilled syringe (2 sources) Low Molecular Weight Heparin Start: 03-24-2024 End: 03-28-2024 inject 40 mg by subcutaneous injection every twenty-four hours 40 mg, Subcutaneous, EVERY 24 HOURS, First dose (after last modification) on Sat03/28/24 at 0900, Until Discontinued, For SUBCUTANEOUS route ONLY: alternate injection sites between left and right abdominal wall, pinching location and avoiding area around navel. If unable to use abdominal sites, may use the front or side of thighs., Indications: DVT/PE prophylaxis escitalopram 10 mg oral tablet (20 sources) Serotonin Reuptake Inhibitor Start: 03-24-2024 End: 03-28-2024 take 20 mg by mouth once daily in the morning 20 mg, Oral, DAILY EVERY MORNING, First dose on Sat03/24/24 at 0900, Until Discontinued Start: 08-06-2018 take 1 tablet by bernice th once daily in the morning escitalopram 20 MG tablet Take 1 tablet by mouth daily every morning. 30 tablet 04/21/2021 Active Start: 04-29-2015 take 1 tablet by bernice th at bedtime escitalopram 20 MG Tab tablet Take 20 mg by mouth at bedtime. 04/29/2015 Active famotidine 20 mg oral tablet (1 source) Histamine-2 Receptor Antagonist Start: 04-21-2021 End: 09-18-2021 take 1 tablet by mouth twice daily famotidine 20 MG tablet Take 1 tablet by mouth 2 times daily. 60 tablet 5 04/21/2021 09/18/2021 Discontinued Flintstones Complete 18 MG Chew Tab (9 sources) Start: 03-27-2024 Flintstones Complete 18 MG Chew Tab Chew 1 tablet 2 times daily. 03/27/2024 Active Furosemide (1 source) Loop Diuretic Start: 03-24-2024 End: 03-24-2024 40 mg, Intravenous, ONCE, 1 dose, On Sat03/24/24 at 0615, Administer by slow IV push at a rate not exceeding 40mg/min haloperidol 0.5 mg oral tablet (1 source) Typical Antipsychotic Start: 03-23-2024 End: 03-28-2024 take 1 tablet by mouth every six hours as needed 0.5 mg, Oral, EVERY 6 HOURS NEEDED, Starting on Sat03/23/24 at 1459, Until 03/28/24 at 1526, nausea/vomiting 2nd line, Post-op/Post-Proc 1 ml heparin sodium, porcine 5000 unt/ml prefilled syringe (1 source) Unfractionated Heparin, Anti-coagulant Start: 03-23-2024 End: 03-23-2024 5,000 Units, Subcutaneous, PRE-OP, 1 dose, On Sat03/23/24 at 0845, Pre-op/Pre-Proc losartan potassium 25 mg oral tablet (20 sources) Angiotensin 2 Receptor Matthew Start: 09-19-2022 End: 04-07-2024 take 25 mg by mouth once daily Losartan Discontinued 25 MG PO Daily February 24, 2024 12:00am April 07, 2024 2:00pm Start: 09-15-2020 End: 09-18-2021 take 1 tablet by mouth once daily Losartan 25 MG tablet Take 1 tablet by mouth daily. 90 tablet 3 09/19/2022 Active Multiple Vitamins-Minerals (Multivitamins) Chew Tab (20 sources) Start: 08-12-2019 End: 03-27-2024 Multiple Vitamins-Minerals (Multivitamins) Chew Tab Indications: S/P laparoscopic sleeve gastrectomy Chew 2 tablets daily. May take pediatric or adult chalky chewable vitamin; double the recommended daily dose. 08/12/2019 03/27/2024 Discontinued (Stop Taking at Discharge) Start: 08-12-2019 Multiple Vitam ins-Minerals (Multivitamins) Chew [...] the recommended daily dose. 0 08/12/2019 Active mycophenolate mofetil 200 mg /ml oral suspension (10 sources) Start: 03-27-2024 End: 04-23-2024 Mycophenolate 200 MG/ML Renan n Susp oral suspension Take 3.75 mL by mouth 2 times daily, at 0800 and 2000 for 14 days. Can go back to taking Myfortic after 14 days. 105 mL 03/27/2024 04/23/2024 Discontinued (Therapy completed) Start: 03-23-2024 End: 03-28-2024 750 mg, Oral, 2 TIMES DAILY (Solid Organ Transplant), First dose on Sat03/23/24 at 2000, Until Discontinued, May be administered via a nasogastric tube (minimum 8 Cymraes, 1.7 mm interior diameter); oral suspension should not be mixed with other medications. Storage Change-Refrigeration no longer required mycophenolic acid 180 mg delayed release oral tablet (20 sources) Antimetabolite Immunosuppressant Start: 09-18-2021 take 3 tablets by mouth every twelve hours mycophenolate sodium (MYFORTIC) 180 MG EC tablet Take 3 (three) tablets (540 mg total) by mouth every 12 (twelve) hours . 0 09/18/2021 Active Start: 05-18-2021 End: 03-27-2024 take 3 tablets by mouth every twelve hours mycophenolate sodium (MYFORTIC) [address] Take 3 tablets by mouth every 12 hours. 560 tablet 3 09/18/2021 03/27/2024 Discontinued (Stop Taking at Discharge) Start: 08-06-2018 take 360 mg by mouth twice daily Mycophenolate Sodium Active 360 MG PO Twice daily August 06, 2018 1:00am Start: 09-18-2017 take 2 tablets by mo uth every twelve hours mycophenolate sodium (generic) [address] Take 2 tablets by mouth every 12 hours. 120 tablet 11 09/18/2017 Active OLANZapine 5 mg oral tablet (20 sources) Atypical Antipsychotic Start: 03-23-2024 End: 03-28-2024 take 2.5 mg by mouth once daily at bedtime 2.5 mg, Oral, DAILY AT BEDTIME, First dose on Sat03/23/24 at 2100, Until Discontinued Start: 04-21-2021 End: 12-04-2023 take 1 tablet by mouth at bedtime OLANZapine 2.5 MG tablet Take 1 tablet by mouth at bedtime. 12/04/2023 Active omeprazole 40 mg delayed release oral capsule [...] Active oxyCODONE hydrochloride 5 mg oral tablet (3 sources) Opioid Agonist Start: 03-25-2024 End: 03-28-2024 take 1 tablet by mouth every six hours as needed 5 mg, Oral, EVERY 6 HOURS NEEDED, Starting on Sat03/25/24 at 1105, Until 03/28/24 at 1526, Moderate Pain, Severe Pain, Post-op/Post-Proc Start: 03-23-2024 End: 03-25-2024 take 1 tablet by mouth every three hours as needed 5 mg, Oral, EVERY 3 HOURS NEEDED, Starting on 03/23/24 at 1459, Until Sat03/25/24 at 1106, Moderate Pain, Severe Pain, Post-op/Post-Proc Start: 01-25-2022 End: 03-02-2022 oxyCODONE 5 MG tablet Indica tions: Polycystic kidney disease Take 1 tablet by [...] BP 30 tablet 0 12/10/2022 01/09/2023 Active polyethylene glycol 3350 47691 mg powder for oral solution (7 sources) Osmotic Laxative Start: 03-24-2024 End: 04-21-2024 Polyethylene glycol (MiraLax) 17 GM/SCOOP Powder powder Take 17 g by mouth daily as needed for Constipation. 225 g 03/27/2024 04/21/2024 Discontinued (Therapy completed) Prochlorperazine (COMPAZINE) injection 5 mg (1 source) Start: 03-23-2024 End: 03-28-2024 take 5 mg intravenously every six hours as needed Prochlorperazine (COMPAZINE) injection 5 mg proparacaine hydrochloride 5 mg/ml ophthalmic solution (1 source) Local Anesthetic Start: 04-21-2022 End: 04-21-2022 proparacaine (ALCAINE) 0.5 % ophthalmic solution 2 drop rOPINIRole 0.5 mg oral tablet (20 sources) Nonergot Dopamine Agonist Start: 03-23-2024 End: 03-28-2024 take 0.5 mg by mouth once daily at bedtime 0.5 mg, Oral, DAILY AT BEDTIME, First dose on Sat03/23/24 at 2100, Until Discontinued, Max 24 mg/day Start: 02-24-2024 take 0.5 mg by mouth once daily at bedtime Ropinirole Active 0.5 MG PO Daily at bedtime February 24, 2024 9:32am Start: 08-06-2018 End: 02-24-2024 take 0.25 mg by mouth once daily at bedtime Ropinirole Discontinued 0.25 MG PO Daily at bedtime August 06, 2018 1:00am February 24, 2024 9:35am rOPINIRole 0.25 MG Tab take 0.25 mg by mouth at bedtime.. Active sildenafil 100 mg oral tablet (20 sources) Phosphodiesterase 5 Inhibitor Start: 10-09-2021 End: 04-21-2024 sildenafil citrate 100 MG tablet Take 0.5-1 tablets by mouth as needed for Erectile Dysfunction. 30 tablet 2 10/09/2021 04/21/2024 Discontinued (Therapy completed) Start: 10-09-2021 sildenafiL ( AGRA) 100 MG tablet Take 0.5 (one-half) tablet to 1 (one) tablet (50-100 mg total) by mouth as needed . 0 10/09/2021 Active 10 ml sodium bicarbonate 84 mg/ml injection (1 source) Start: 03-24-2024 End: 03-24-2024 50 mEq, Intravenous, ONCE, 1 dose, On 03/24/24 at 1030 1000 ml sodium chloride 9 mg /ml injection (1 source) Start: 03-23-2024 End: 03-28-2024 Intravenous, at 20 mL/hr, NEEDED, Starting on 03/23/24 at 1459, Until 03/28/24 at 1527, Carrier Fluid - See Admin. Inst, 250mL 0.9NS to be used as carrier fluid for intermittent small volume or piggyback medication administration as needed. Infusion rate of the carrier fluid should be set at 20 mL/hr unless the rate as the intermittent medication is less than 20 mL/hr. For intermittent medications with a rate less than 20 mL/hr set the carrier fluid at that rate of the intermittent or piggy back medication., Post-op/Post-Proc sodium zirconium cyclosilica te 5000 mg powder for oral suspension (18 sources) Start: 02-24-2024 End: 04-07-2024 Sodium Zirconium Cyclosilica te (Lokelma) 5 gram powder in packet Discontinued 5 GM PO Daily February 24, 2024 12:00am April 07, 2024 2:00pm Sodium Zirconium Cyclosilicate (Lokelma) 5 g Pack powder Take 2 packets by mouth daily. Active vitamin b12 0.5 mg oral tablet (20 sources) Vitamin B12 Start: 09-26-2021 End: 03-27-2024 take 2 tablets by mouth once daily in the morning cyanocobalamin 500 MCG tablet Take 2 tablets by mouth daily every morning. 12/04/2023 03/27/2024 Discontinued (Stop Taking at Discharge) Start: 08-22-2020 take 2 tablets by mo [facility] once daily cyanocobalamin 500 MCG tablet Take 2 tablets by mouth daily. 60 tablet 11 08/22/2020 Active Problems Active Problems Problem Classification Problem Date Documented Date Episodic/Chronic Administrative/social admission (20 sources) Patient encounter status; 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: [Dietary counseling and surveillance] Onset: 9 Resolved: 0 01-05-2020 Episodic Anxiety disorders (20 sources) Anxiety disorder; 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: [Anxiety disorder, unspecified] Onset: 7 02-19-2017 Chronic Cardiac and circulatory congenital anomalies (3 sources) Patent foramen ovale; 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: [PFO (patent foramen ovale)] Onset: 4 02-25-2024 Chronic Chronic kidney disease (20 sources) End stage renal disease; 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: [History of renal transplant] Onset: 7 Resolved: 2 09-24-2016 Chronic Chronic kidney disease (2 sources) Chronic kidney disease; 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: [Chronic kidney disease, stage 3a] Onset: 2 Deficiency and other anemia (1 source) Hemoglobin low; 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: [Anemia, unspecified] 04-07-2024 Episodic Deficiency and other anemia (1 source) Anemia, unspecified; 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: [Anemia, unspecified] 04-07-2024 Episodic E Codes: Natural/environment (3 sources) Dog bite - wound; 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: [Bitten by dog, initial encounter] Onset: 3 Episodic Esophageal disorders (20 sources) Gastroesophageal reflux disease; 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: [Gastro-esophageal reflux disease without esophagitis] Onset: 4 Resolved: 0 02-19-2017 Chronic Essential hypertension (20 sources) Essential hypertension; 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: [Essential (primary) hypertension] Onset: 2 01-21-2022 Chronic Fluid and electrolyte disorders (4 sources) Hyperkalemia; 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: [Hyperkalemia] Onset: 4 03-27-2024 Episodic Genitourinary symptoms and ill-defined conditions (5 sources) Retention of urine; 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: [Retention of urine, unspecified] Onset: 4 04-06-2024 Episodic Hyperplasia of prostate (1 source) Benign prostatic [...] [Depression, unspecified] Onset: 7 Resolved: 4 11-30-2021 Nausea and vomiting (3 sources) Nausea; 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: [Nausea] Onset: 4 03-27-2024 Episodic Nutritional deficiencies (20 sources) Vitamin D deficiency; 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: [Vitamin D deficiency, unspecified] Onset: 9 Resolved: 0 04-26-2020 Chronic Open wounds of extremities (4 sources) Laceration of hand without foreign body; 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: [Laceration without foreign body of right hand, initial encounter] Onset: 3 Episodic Other aftercare (3 sources) Transplant follow-up; 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: [Encounter for aftercare following other organ transplant] Chronic Other aftercare (2 sources) Encounter for aftercare following other organ transplant; 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: [Encounter for aftercare following other organ transplant] Onset: 4 Chronic Other aftercare (3 sources) Taking high risk medication; 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: [Other half-way (current) drug therapy] Episodic Other aftercare (1 source) Long-term current use of immunosuppressive drug; 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: [Other intermediate project manager (current) drug therapy] Episodic Other aftercare (1 source) Wound ; 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: [Encounter for other specified surgical aftercare] Episodic Other aftercare (1 source) Post-discharge follow-up; 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: [Encounter for follow-up examination after completed treatment for conditions other than malignant neoplasm] 04-07-2024 Episodic Other aftercare (1 source) Encounter for follow-up examination after completed treatment for conditions other than malignant neoplasm; 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: [Other follow-up examination] 04-07-2024 Episodic Other aftercare (2 sources) Other intermediate project manager (current) drug therapy; 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: [Other half-way (current) drug therapy] Onset: 4 Episodic Other [...] hyperparathyroidism of renal origin] 09-25-2016 Chronic Other diseases of kidney and ureters (2 sources) Hydronephrosis; 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: [Unspecified hydronephrosis] 03-27-2024 Episodic Other diseases of kidney and ureters (2 sources) Unspecified hydronephrosis; 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: [Unspecified hydronephrosis] Onset: 4 Episodic Other ear and sense organ disorders (1 source) Impacted cerumen in right ear; 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: [Impacted cerumen, right ear] 12-04-2023 Episodic Other eye disorders (1 source) Red right eye; 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: [Other specified disorders of eye and adnexa] Episodic Other gastrointestinal disorders (2 sources) Intestinal bypass and anastomosis status; 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] Onset: 4 Chronic Other gastrointestinal disorders (2 sources) History of bypass of stomach; 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: [Bariatric [...] Onset: 8 Chronic Other nervous system disorders (4 sources) H/O: respiratory disease; 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: [Personal history [...] foot] 04-16-2023 Episodic Other non-traumatic joint disorders (3 sources) Pain in right ankle and joints of right foot; 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: [Pain in joint, ankle and foot] Onset: 4 Episodic Other non-traumatic joint disorders (2 sources) Ankle pain; 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: [Pain in right ankle and joints of right foot] 02-24-2024 Episodic Other nutritional; endocrine; and metabolic disorders (20 sources) Morbid (severe) obesity due to excess calories; 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: [Severe obesity] Onset: 7 Resolved: 9 05-10-2017 Chronic Other nutritional; endocrine; and metabolic disorders (20 sources) Obesity; 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: [Obesity, unspecified] Onset: 4 Resolved: 7 04-15-2017 Chronic Other nutritional; endocrine; and metabolic disorders (2 sources) Body mass index (BMI) 33.0-33.9, adult; 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: [Body mass index (BMI) 33.0-33.9, adult] Onset: 4 Chronic Other nutritional; endocrine; and metabolic disorders (2 sources) Body mass index (BMI) 35.0-35.9, adult; 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: [Body mass index (BMI) 35.0-35.9, adult] Onset: 4 Chronic Other nutritional; endocrine; and metabolic disorders (1 source) H/O: endocrine disorder; 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: [Personal history of other endocrine, nutritional and metabolic disease] 02-25-2024 Episodic Other nutritional; endocrine; and metabolic disorders (1 source) H/O: obesity; 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: [Personal history of other endocrine, nutritional and metabolic disease] 04-23-2024 Episodic Other nutritional; endocrine; and metabolic disorders (2 sources) Personal history of other endocrine, nutritional and metabolic disease; 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: [Personal history of other endocrine, nutritional and metabolic disease] Onset: 4 Episodic Other screening for suspected conditions (not mental disorders or infectious disease) (16 sources) Blood chemistry abnormal; 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: [Abnormal finding of blood chemistry, unspecified] Onset: 3 Episodic Other skin disorders (1 source) Lentiginosis; 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: [Other melanin hyperpigmentation] 05-28-2023 Episodic Other skin disorders (1 source) Seborrheic keratosis; 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: [Other seborrheic keratosis] 05-28-2023 Episodic Other upper respiratory disease (20 sources) Allergic disposition; 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: [Other allergic rhinitis] Onset: 8 02-11-2018 Chronic Other upper respiratory disease (1 source) Allergic rhinitis; 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: [Allergic rhinitis, unspecified] 02-25-2024 Chronic Other upper respiratory disease (2 sources) Allergic rhinitis, unspecified; 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: [Allergic rhinitis, unspecified] Onset: 4 Chronic Other upper respiratory infections (4 sources) Sinusitis; 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: [Chronic sinusitis, unspecified] Onset: 3 Chronic Other upper respiratory infections (4 sources) Viral upper respiratory tract infection; 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: [Acute upper respiratory infection, unspecified] Onset: 3 Episodic Residual codes; unclassified (5 sources) Obstructive sleep apnea (adult) (pediatric); 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: [Obstructive sleep apnea (adult)(pediatric)] Onset: 4 Chronic Residual codes; unclassified (1 source) Other general symptoms and signs; 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: [Other general symptoms] Episodic Residual codes; unclassified (1 source) At risk of nutritional deficit; 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: [Other specified personal risk factors, not elsewhere classified] 09-30-2023 Episodic Residual codes; unclassified (1 source) History of radical nephrectomy; 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: [Acquired absence of kidney] 02-25-2024 Episodic Residual codes; unclassified (1 source) Bilateral lower limb edema; 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: [Localized edema] 02-25-2024 Episodic Residual codes; unclassified (1 source) Postoperative state; 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: [Other specified postprocedural states] 04-23-2024 Episodic Residual codes; unclassified (2 sources) Other specified postprocedural states; 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: [Other specified postprocedural states] Onset: 4 Episodic Residual codes; unclassified (2 sources) Acquired absence of stomach [part of]; 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: [Acquired absence of stomach (part of)] Onset: 4 Episodic Residual codes; unclassified (2 sources) Acquired absence of kidney; 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: [Acquired absence of kidney] Onset: 4 Episodic Residual codes; unclassified (2 sources) Localized edema; 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: [Localized edema] Onset: 4 Episodic Skin and subcutaneous tissue infections (2 [...] 8 Unclassified (1 source) Knee Pain / [id number]() Onset: 8 Unclassified (1 source) Obesity, class 1; 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: [Obesity, class 1] Onset: 4 Past or Other Problems Problem Classification Problem [...] Onset: 04-02-2019 Resolved: 04-26-2020 04-26-2020 Episodic Other and unspecified benign neoplasm (2 [...] surgery status] Onset: 08-10-2019 09-03-2021 Episodic Other gastrointestinal disorders (4 sources) Bariatric surgery status; 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: [Bariatric surgery status] Onset: 01-07-2023 02-24-2024 Episodic Other lower respiratory disease (20 sources) [...] Onset: 04-02-2019 Resolved: 01-05-2020 01-05-2020 Episodic Other nutritional; endocrine; and metabolic disorders (9 sources) Weight increased; 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: [Abnormal weight gain] Onset: 04-02-2019 Resolved: [...] 09-25-2016 Chronic Residual codes; unclassified (20 sources) Obstructive sleep apnea syndrome; 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: [Obstructive sleep apnea (adult) (pediatric)] Onset: 07-07-2019 Resolved: 04-26-2020 04-26-2020 Chronic Residual codes; unclassified (20 sources) History of repair of umbilical hernia; 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: [Encounter for follow-up examination after completed treatment for conditions other than malignant neoplasm] Onset: 05-10-2017 Resolved: 05-21-2017 05-10-2017 Episodic Residual codes; unclassified (2 sources) Other specified personal risk factors, not elsewhere classified; 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: [Other specified personal risk factors, not elsewhere classified] Onset: 09-30-2023 Episodic Screening and history of mental health [...] (5 sources) Onset: 03-10-2023 Resolved: 04-16-2023 03-10-2023 Unclassified (1 source) Obesity, class 1; 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: [Obesity, class 1] Onset: 04-23-2024 Results Test Name Value Interpretation Reference Range Facility ALLOSCREEN RECIPIENT (POST T X PRA)on 04-21-2024 AB SPECIFICITY CLASS COMMENT Antibody Specificity testing performed by [facility]. cPRA calculation based on identification of HLA antibody specificities at MFI >2000 and/or presence of CREG antibodies. Normal [facility] Comment on above: Result Comment: Some of the reagents used for testing in the Clinical Histocompatibility Laboratory have yet to be approved by the FDA. Our certification by CLIA to perform high complexity tests allows us to use these reagents in the context of a stringent QC program, and obviates the need for FDA approval.Testing performed by the [facility] Clinical Histocompatibility Laboratory. [facility] number: [id number]. CLIA number: [id number], Director: Everton Hernandez, PhD, F([facility]). Performed By: #### C A, MGO, IPB, CHM7 #### [facility] (DEFAULT) [address] [address] ANTIBODY SPECIFICITY INTERPRETATION Detected Normal [facility] Comment on above: Performed By: #### C A, MGO, IPB, CHM7 #### [facility] (DEFAULT) [address] [address] CLASS I SPECIFICITIES C:18 Normal [facility] Comment on above: Performed By: #### C A, MGO, IPB, CHM7 #### [facility] (DEFAULT) [address] [place] [address] CLASS II SPECIFICITIES Not detected Normal [facility] Comment on above: Performed By: #### C A, MGO, IPB, CHM7 #### [facility] (DEFAULT) [address] [address] cPRA 1 % High 0 [facility] Comment on above: Performed By: #### C A, MGO, IPB, CHM7 #### [facility] (DEFAULT) [address] [address] BK VIRUS DNA QN, PCR, PLASMA on 04-21-2024 Bk Viral Load, Plasma <500 Normal <500 [facility] Comment on above: Order Comment: This test was performed using a real time PCR assay. The dynamic range for this assay is 500-5,000,000 copies/mL. This test was developed and its performance characteristics determined by The [facility] at [facility]. It has not been cleared or approved by the FDA. The laboratory is regulated under CLIA as qualified to perform high-complexity testing. This test is used for clinical purposes. It should not be regarded as investigational or for research. Performed By: #### X MPO #### [facility] (DEFAULT) [address] [place] [address] CBC,PLATELETSon 04-21-2024 Erythrocyte distribution width (RBC) [Ratio] 12.3 % 10.9 - 14.3 % [facility] Hematocrit (Bld) [Volume fraction] 30.7 % Low 39.6 - 48.8 % [facility] Hemoglobin (Bld) [Mass/Vol] 9.5 g/dL Low 13.4 - 16.8 g/dL [facility] Interpretation and review of laboratory results Abnormal [facility] MCH (RBC) [Entitic mass] 29.0 pg 26.1 - 33.3 pg [facility] MCHC (RBC) [Mass/Vol] 30.9 g/dL Low 31.9 - 36.5 g/dL [facility] MCV (RBC) [Entitic vol] 93.6 fL 79.0 - 94.5 fL [facility] Platelet mean volume (Bld) [Entitic vol] 12.4 fL High 8.7 - 12.3 fL [facility] Platelets (Bld) [#/Vol] 175 10*3/uL 146 - 337 K/uL [facility] RBC (Bld) [#/Vol] 3.28 10*6/uL Low [facility] WBC (Bld) [#/Vol] 6.63 10*3/uL 3.73 - 10. 10 K/uL [facility] Hematocrit (Bld) [Volume fraction] 30.7 % Low 39.6-48.8 [facility] Comment on above: Performed By: #### S URGP #### [facility] (DEFAULT) [address] [place] [address] Hemoglobin (Bld) [Mass/Vol] 9.5 g/dL Low 13.4-16.8 [facility] Comment on above: Performed By: #### S URGP #### [facility] (DEFAULT) [address] [place] [address] MCV (RBC) [Entitic vol] 93.6 fL Normal 79.0-94.5 [facility] Comment on above: Performed By: #### S URGP #### [facility] (DEFAULT) [address] [place] [address] Mean Cell Hgb 29.0 pg Normal 26.1-33.3 [facility] Comment on above: Performed By: #### S URGP #### [facility] (DEFAULT) [address] [place] [address] Mean Cell Hgb Conc 30.9 g/dL Low 31.9-36.5 [facility] Comment on above: Performed By: #### S URGP #### [facility] (DEFAULT) [address] [place] [address] Platelet mean volume (Bld) [Entitic vol] 12.4 fL High 8.7-12.3 [facility] Comment on above: Performed By: #### S URGP #### [facility] (DEFAULT) [address] [place] [address] Platelets (Bld) [#/Vol] 175 10*3/uL Normal 146-337 [facility] Comment on above: Performed By: #### S URGP #### [facility] (DEFAULT) [address] [place] [address] RBC (Bld) [#/Vol] 3.28 10*6/uL Low 4.38-5.83 [facility] Comment on above: Performed By: #### S URGP #### [facility] (DEFAULT) [address] [place] [address] RBC Distribution 12.3 % Normal 10.9-14.3 [facility] Comment on above: Performed By: #### S URGP #### [facility] (DEFAULT) [address] [place] [address] WBC (Bld) [#/Vol] 6.63 10*3/uL Normal 3.73-10.10 [facility] Comment on above: Performed By: #### S URGP #### [facility] (DEFAULT) [address] [place] [address] CHEM 7 (LYTES,BUN,CREA,GLUC) on 04-21-2024 Anion gap [Moles/Vol] 13 mmol/L 7 - 17 mmol/L [facility] Chloride [Moles/Vol] 106 mmol/L 98 - 10 8 mmol/L [facility] CO2 [Moles/Vol] 24 mmol/L 21 - 31 mmol/L [facility] Creatinine [Mass/Vol] 2.35 mg/dL High 0.70 - 1.30 mg/dL [facility] eGFR, CKD-EPI, Male 32 Low - PINF [facility] Comment on above: Reported eGFR is bas ed on the CKD-EPI 2020 equation using creatinine, age, and sex. Glucose [Mass/Vol] 99 mg/dL 70 - 99 mg/dL [facility] Interpretation and review of laboratory results Abnormal [facility] Osmolality Calc [Osmolality] 296 [facility] Potassium [Moles/Vol] 4.6 mmol/L 3.5 - 5.0 mmol/L [facility] Sodium [Moles/Vol] 138 mmol/L 135 - 145 mmol/L [facility] Urea nitrogen [Mass/Vol] 29 mg/dL High 7 - 25 mg/dL [facility] Urea nitrogen/Creatinine [Mass ratio] 12 mg/mg [facility] Anion gap [Moles/Vol] 13 mmol/L Normal 7-17 [facility] Comment on above: Performed By: #### S URGP #### [facility] (DEFAULT) [address] [place] [address] Chloride [Moles/Vol] 106 mmol/L Normal 98-108 [facility] Comment on above: Performed By: #### S URGP #### [facility] (DEFAULT) [address] [place] [address] CO2 [Moles/Vol] 24 mmol/L Normal 21-31 [facility] Comment on above: Performed By: #### S URGP #### [facility] (DEFAULT) [address] [place] [address] Creatinine [Mass/Vol] 2.35 mg/dL High 0.70-1.30 [facility] Comment on above: Performed By: #### S URGP #### [facility] (DEFAULT) [address] [place] [address] GFR/1.73 sq M.predicted among non-blacks MDRD (S/P/Bld) [Vol rate/Area] 32 mL/min/{1.73_m2} Low >=60 [facility] Comment on above: Result Comment: Repo rted eGFR is based on the CKD-EPI 2020 equation using creatinine, age, and sex. Performed By: #### S URGP #### [facility] (DEFAULT) [address] [place] [address] Glucose [Mass/Vol] 99 mg/dL Normal 70-99 [facility] Comment on above: Performed By: #### S URGP #### [facility] (DEFAULT) [address] [place] [address] Osmolality [Osmolality] 296 mosm/kg Normal 278-305 [facility] Comment on above: Performed By: #### S URGP #### [facility] (DEFAULT) [address] [place] [address] Potassium [Moles/Vol] 4.6 mmol/L Normal 3.5-5.0 [facility] Comment on above: Performed By: #### S URGP #### [facility] (DEFAULT) [address] [place] [address] Sodium [Moles/Vol] 138 mmol/L Normal 135-145 [facility] Comment on above: Performed By: #### S URGP #### [facility] (DEFAULT) [address] [place] [address] Urea nitrogen [Mass/Vol] 29 mg/dL High 7-25 [facility] Comment on above: Performed By: #### S URGP #### [facility] (DEFAULT) [address] [place] [address] Urea nitrogen/Creatinine [Mass ratio] 12 mg/mg Normal [facility] Comment on above: Performed By: #### S URGP #### [facility] (DEFAULT) [address] [place] [address] CMV BY PCR, QUANTITATIVE, BL OODon 04-21-2024 CMV By Pcr, Iu/Ml, Plasma <50 Normal <50 [facility] Comment on above: Order Comment: To be collected on POD1 Performed By: #### H EMOGC #### [facility] (DEFAULT) [address] [place] [address] POCT URINE DIPSTICK AUTOMATE Don 04-21-2024 Amorphous sediment LM Ql (Urine sed) [facility] (U[facility] Bacteria LM Ql (Urine sed) [facility] Bilirubin Ql (U) [facility] Casts LM.LPF (Urine sed) [#/Area] [facility] Color (U) yellow [facility] Crystals LM Nom (Urine sed) [facility] Epithelial cells.squamous LM.HPF (Urine sed) [#/Area] [facility] Flow cytometry specialist review Vikas (Unsp spec) [Interp] [facility] Glucose Auto test strip (U) [Mass/Vol] Negative mg/dL [facility] Ketones [Mass/Vol] Negative mg/dL [facility] Leukocyte esterase Qn (U) [facility] Leukocyte esterase Test strip Ql (U) Negative [facility] Microscopic observation Gram stain Nom (Bronch spec) [facility] Nitrite Ql (U) Negative [facility] pH (U) 6.0 [pH] 5 - 7 [facility] Protein Ql (U) Negative mg/dL [facility] RBC LM.HPF (Urine sed) [#/Area] [facility] RBC Ql (U) Negative [facility] Specific gravity (U) [Rel density] 1.010 1.001 - 1.035 [facility] Transitional cells LM Ql (Urine sed) [facility] Urobilinogen Qn (U) 0.2 [facility] WBC LM.HPF (Urine sed) [#/Area] [facility] URINE PROTEIN/CREA RATIO, RA NDOMon 04-21-2024 Creatinine (24H U) [Mass/Vol] 73.10 mg/dL [facility] Protein Unsp time (U) [Mass/Vol] 4 mg/dL [facility] Protein/Creatinine (U) [Mass ratio] 0.055 mg/mg [facility] Creatinine (U) [Mass/Vol] 73.10 mg/dL Normal [facility] Comment on above: Performed By: #### U PCR #### [facility] (DEFAULT) [address] [place] [address] 50269 Prot/Creat Ratio 0.055 mg/mg Normal [facility] Comment on above: Performed By: #### U PCR #### [facility] (DEFAULT) [address] [place] [address] 07298 Protein Ql (U) 4 mg/dL Normal [facility] Comment on above: Performed By: #### U PCR #### [facility] (DEFAULT) [address] [place] [address] 15596 US RENAL TRANSPLANT SCANon 1 US RENAL TRANSPLANT SCAN EXAM: US RENAL TRANSPLANT SCAN, 04/21/2024 13:27 PM CLINICAL INDICATIONS: rising creatitine, previous hydronephrosis of the kidney R33.9:Urinary retention COMPARISON: Ultrasound transplant kidney dated March 25, 2024 TECHNIQUE: Real-time mcgowan scale ultrasound images of the renal transplant in the right lower quadrant were obtained in longitudinal and transverse orientations utilizing a curved array transducer. Color and duplex doppler imaging was used to evaluate vascular flow. FINDINGS: Transplant Kidney: The transplanted kidney is identified in the right lower quadrant. It measures 12.1 cm in bipolar length. Slightly heterogeneous echotexture of the transplant kidney. There is interval mild improvement in the right-sided hydronephrosis with mild residual hydronephrosis within the transplant kidney which persists on the post void images. No peritransplant fluid collections or ascites. No focal cortical lesions. Doppler: Duplex imaging demonstrates normal arterial waveforms in the renal artery. Peak systolic velocity (PSV) in the renal artery: 165 cm/s Acceleration time (AT): 36.7 ms Peak systolic velocity (PSV) in the external iliac artery: 248 cm/s Ratio of PSV(renal) to PSV(iliac): 0.7 Intrarenal arterial resistive indices as follows: Upper pole: 0.67 Interpolar: 0.70 Lower pole: 0.71 (range of resistive indices on the previous examination was 0.74-0.79). Bladder: Urinary bladder is distended with no gross mass or calculus. Bladder wall thickness is within normal limits. Prevoid bladder volume measures 230 cc. Post void residue measures 52.5 cc Abdomen: No ascites in the visualized images. IMPRESSION: 1. Slight heterogeneous echotexture of the transplant kidney with mild residual hydronephrosis improved since the prior comparison study. No focal renal mass lesions or peritransplant fluid collections. No renal calculi 2. Normal vascular flow to the transplant kidney. Resistivity indices within normal limits. 3. No definite bladder mass or stones. Slightly significant post void bladder residue. Please correlate with lower urinary tract symptoms 4. No pelvic ascites Normal [facility] US for transplanted kidney l imitedon 04-21-2024 IMPRESSION: 1. Slight heterogeneous echotexture of the transplant kidney with mild residual hydronephrosis improved since the prior comparison study. No focal renal mass lesions or peritransplant fluid collections. No renal calculi 2. Normal vascular flow to the transplant kidney. Resistivity indices within normal limits. 3. No definite bladder mass or stones. Slightly significant post void bladder residue. Please correlate with lower urinary tract symptoms 4. No pelvic ascites OLOGY EXAM: US RENAL TRANSPLANT SCAN, 04/21/2024 13:27 PM CLINICAL INDICATIONS: rising creatitine, previous hydronephrosis of the kidney R33.9:Urinary retention COMPARISON: Ultrasound transplant kidney dated March 25, 2024 TECHNIQUE: Real-time mcgowan scale ultrasound images of the renal transplant in the right lower quadrant were obtained in longitudinal and transverse orientations utilizing a curved array transducer. Color and duplex doppler imaging was used to evaluate vascular flow. FINDINGS: Transplant Kidney: The transplanted kidney is identified in the right lower quadrant. It measures 12.1 cm in bipolar length. Slightly heterogeneous echotexture of the transplant kidney. There is interval mild improvement in the right-sided hydronephrosis with mild residual hydronephrosis within the transplant kidney which persists on the post void images. No peritransplant fluid collections or ascites. No focal cortical lesions. Doppler: Duplex imaging demonstrates normal arterial waveforms in the renal artery. Peak systolic velocity (PSV) in the renal artery: 165 cm/s Acceleration time (AT): 36.7 ms Peak systolic velocity (PSV) in the external iliac artery: 248 cm/s Ratio of PSV(renal) to PSV(iliac): 0.7 Intrarenal arterial resistive indices as follows: Upper pole: 0.67 Interpolar: 0.70 Lower pole: 0.71 (range of resistive indices on the previous examination was 0.74-0.79). Bladder: Urinary bladder is distended with no gross mass or calculus. Bladder wall thickness is within normal limits. Prevoid bladder volume measures 230 cc. Post void residue measures 52.5 cc Abdomen: No ascites in the visualized images. RADIOLOGY Hayder Orourke MBBS - 04/21/2024 EXAM: US RENAL TRANSPLANT SCAN, 04/21/2024 13:27 PM CLINICAL INDICATIONS: rising creatitine, previous hydronephrosis of the kidney R33.9:Urinary retention COMPARISON: Ultrasound transplant kidney dated March 25, 2024 TECHNIQUE: Real-time mcgowan scale ultrasound images of the renal transplant in the right lower quadrant were obtained in longitudinal and transverse orientations utilizing a curved array transducer. Color and duplex doppler imaging was used to evaluate vascular flow. FINDINGS: Transplant Kidney: The transplanted kidney is identified in the right lower quadrant. It measures 12.1 cm in bipolar length. Slightly heterogeneous echotexture of the transplant kidney. There is interval mild improvement in the right-sided hydronephrosis with mild residual hydronephrosis within the transplant kidney which persists on the post void images. No peritransplant fluid collections or ascites. No focal cortical lesions. Doppler: Duplex imaging demonstrates normal arterial waveforms in the renal artery. Peak systolic velocity (PSV) in the renal artery: 165 cm/s Acceleration time (AT): 36.7 ms Peak systolic velocity (PSV) in the external iliac artery: 248 cm/s Ratio of PSV(renal) to PSV(iliac): 0.7 Intrarenal arterial resistive indices as follows: Upper pole: 0.67 Interpolar: 0.70 Lower pole: 0.71 (range of resistive indices on the previous examination was 0.74-0.79). Bladder: Urinary bladder is distended with no gross mass or calculus. Bladder wall thickness is within normal limits. Prevoid bladder volume measures 230 cc. Post void residue measures 52.5 cc Abdomen: No ascites in the visualized images. IMPRESSION IMPRESSION: 1. Slight heterogeneous echotexture of the transplant kidney with mild residual hydronephrosis improved since the prior comparison study. No focal renal mass lesions or peritransplant fluid collections. No renal calculi 2. Normal vascular flow to the transplant kidney. Resistivity indices within normal limits. 3. No definite bladder mass or stones. Slightly significant post void bladder residue. Please correlate with lower urinary tract symptoms 4. 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 He presents to interventional radiology for transplant nephrostogram and possible nephrostomy catheter. MEDICATIONS: 1:54 PM 03/27/24 midazolam (VERSED) injection 10 mg Ordered and Given 0.5 mg Given Rate: 0 Route: Intravenous; 1:54 PM 03/27/24 fentaNYL (SUBLIMAZE) injection 300 mcg Ordered and Given 25 mcg Given Rate: 0 Route: Intravenous; 2:16 PM 03/27/24 midazolam (VERSED) injection 10 mg Given 1 mg Given Rate: 0 Route: Intravenous; 2:16 PM 03/27/24 fentaNYL (SUBLIMAZE) injection 300 mcg Given 50 mcg Given Rate: 0 Route: Intravenous; 2:26 PM 03/27/24 midazolam (VERSED) injection 10 mg Given 0.5 mg Given Rate: 0 Route: Intravenous; 2:26 PM 03/27/24 fentaNYL (SUBLIMAZE) injection 300 mcg Given 25 mcg Given Rate: 0 Route: Intravenous; 2:36 PM 03/27/24 Iohexol (OMNIPAQUE) 300 MG/ML vial 50 mL Given 13 mL Given Rate: 0 Route: Intravenous; 2:37 PM 03/27/24 Lidocaine 2 % injection Ordered and Given 5 mL Given Rate: 0 Route: Other; TOTAL FLUORO TIME: 0.9 minutes OPERATORS: Netta Titus MD (attending), Anthony Hairston MD (resident) CONSENT: Following discussion of the risks, benefits and alternatives of the procedure, written informed consent was obtained. SEDATION: I performed Moderate Sedation which included the presence of a nurse that assisted in monitoring the patient's level of consciousness and physiologic status. After administration of sedative medication(s), I spent 41 minutes of continuous [id number] time with the patient. COMPARISON: Transplant kidney ultrasound dated March 25, 2024 TIME OUT: Prior to the procedure a time out was performed in the presence of the patient and all personnel involved in this case. The patient identity, procedure type, procedure side/site, and allergies were verified. Intravenous antibiotics were administered before and during the procedure. TECHNIQUE: Position: The patient was transferred to the IR laboratory and was positioned prone on the procedural table. The right lower quadrant using maximum sterile barrier technique. This consisted of cap, mask, hand hygiene, sterile gown and gloves, cutaneous antisepsis and occlusive sterile draping of the field. Procedure: After infiltration of local anesthesia and using direct ultrasound guidance, a 21G needle was advanced into a midpole calyx and an image was saved in the imaging archive system for documentation. Contrast was injected and an antegrade nephrostogram was performed. This demonstrated no significant hydroureteronephrosis with smooth passage of contrast into the bladder and washout of the majority of the contrast. Given these findings, transplant nephrology was contacted, and per attending Dr. Giraldo nephrostomy was no longer needed. The needle was then removed. A sterile occlusive dressing was then placed over the needle access site. IMPRESSION: Right lower quadrant transplant nephrostogram demonstrated no hydroureteronephrosis and brisk passage of contrast into the bladder. Transplant extruder operator multiple was contacted during the case and decision was made not to place nephrostomy catheter. Netta Titus MD was in the room and participated during all jane portions of this procedure. I personally viewed and interpreted these images and I have reviewed and approved this report. Table formatting from the original result was not included. Meds Meds Time Date Event Details User 1:38 PM 03/27/24 Timeout: Sign-in Signed by Maxwell Hsu RN at 03/27/2024 1:38 PM BM 1:54 PM 03/27/24 midazolam (VERSED) injection 10 mg Ordered and Given 0.5 mg Given Rate: 0 Route: Intravenous BM 1:54 PM 03/27/24 fentaNYL (SUBLIMAZE) injection 300 mcg Ordered and Given 25 mcg Given Rate: 0 Route: Intravenous BM 2:16 PM 03/27/24 Timeout: TimeOut Signed by Maxwell Hsu RN at 03/27/2024 2:16 PM BM 2:16 PM 03/27/24 midazolam (VERSED) injection 10 mg Given 1 mg Given Rate: 0 Route: Intravenous BM 2:16 PM 03/27/24 fentaNYL (SUBLIMAZE) injection 300 mcg Given 50 mcg Given Rate: 0 Route: Intravenous BM 2:26 PM 03/27/24 midazolam (VERSED) injection 10 mg Given 0.5 mg Given Rate: 0 Route: Intravenous BM 2:26 PM 03/27/24 fentaNYL (SUBLIMAZE) injection 300 mcg Given 25 mcg Given Rate: 0 Route: Intravenous BM 2:35 PM 03/27/24 Timeout: Sign-out Signed by Maxwell Hsu RN at 03/27/2024 2:35 PM BM 2:36 PM 03/27/24 Iohexol (OMNIPAQUE) 300 MG/ML vial 50 mL Given 13 mL Given Rate: 0 Route: Intravenous CW 2:37 PM 03/27/24 Lidocaine 2 % injection Ordered and Given 5 mL Given Rate: 0 Route: Other CW Physician Physician Time Date Event Details User 1:37 PM 03/27/24 Netta Titus MD - Arrived (more content not included)... Normal [facility] CBC,PLATELETSon 03-28-2024 Erythrocyte distribution width (RBC) [Ratio] 12.5 % 10.9 - 14.3 % [facility] Hematocrit (Bld) [Volume fraction] 23.3 % Low 39.6 - 48.8 % [facility] Hemoglobin (Bld) [Mass/Vol] 7.5 g/dL Low 13.4 - 16.8 g/dL [facility] Interpretation and review of laboratory results Abnormal [facility] MCH (RBC) [Entitic mass] 30.0 pg 26.1 - 33.3 pg [facility] MCHC (RBC) [Mass/Vol] 32.2 g/dL 31.9 - 36.5 g/dL [facility] MCV (RBC) [Entitic vol] 93.2 fL 79.0 - 94.5 fL [facility] Platelet mean volume (Bld) [Entitic vol] 11.6 fL 8.7 - 12.3 fL [facility] Platelets (Bld) [#/Vol] 136 10*3/uL Low 146 - 337 K/uL [facility] RBC (Bld) [#/Vol] 2.50 10*6/uL Low [facility] WBC (Bld) [#/Vol] 5.12 10*3/uL 3.73 - 10. 10 K/uL [facility] Hematocrit (Bld) [Volume fraction] 23.3 % Low 39.6-48.8 [facility] Comment on above: Performed By: #### C A, MGO, IPB, CHM7 #### [facility] (DEFAULT) [address] [place] [address] 44130 Hemoglobin (Bld) [Mass/Vol] 7.5 g/dL Low 13.4-16.8 [facility] Comment on above: Performed By: #### Pamela Wayne, MGO, IPB, CHM7 #### [facility] (DEFAULT) [address] [place] [address] 74101 MCV (RBC) [Entitic vol] 93.2 fL Normal 79.0-94.5 [facility] Comment on above: Performed By: #### Pamela A, MGO, IPB, CHM7 #### [facility] (DEFAULT) [address] [place] [address] 52257 Mean Cell Hgb 30.0 pg Normal 26.1-33.3 [facility] Comment on above: Performed By: #### C A, MGO, IPB, CHM7 #### [facility] (DEFAULT) [address] [place] [address] 23603 Mean Cell Hgb Conc 32.2 g/dL Normal 31.9-36.5 [facility] Comment on above: Performed By: #### C A, MGO, IPB, CHM7 #### [facility] (DEFAULT) [address] [place] [address] 71974 Platelet mean volume (Bld) [Entitic vol] 11.6 fL Normal 8.7-12.3 [facility] Comment on above: Performed By: #### C A, MGO, IPB, CHM7 #### [facility] (DEFAULT) [address] [place] [address] 27330 Platelets (Bld) [#/Vol] 136 10*3/uL Low 146-337 [facility] Comment on above: Performed By: #### C A, MGO, IPB, CHM7 #### U [facility] (DEFAULT) [address] [place] [address] 59920 RBC (Bld) [#/Vol] 2.50 10*6/uL Low 4.38-5.83 [facility] Comment on above: Performed By: #### C A, MGO, IPB, CHM7 #### U [facility] (DEFAULT) [address] [place] [address] 08054 RBC Distribution 12.5 % Normal 10.9-14.3 [facility] Comment on above: Performed By: #### Pamela A, MGO, IPB, CHM7 #### [facility] (DEFAULT) [address] [place] [address] 87137 WBC (Bld) [#/Vol] 5.12 10*3/uL Normal 3.73-10.10 [facility] Comment on above: Performed By: #### C A, MGO, IPB, CHM7 #### [facility] (DEFAULT) [address] [place] [address] 70460 CHEM 7 (LYTES,BUN,CREA,GLUC) on 03-28-2024 Anion gap [Moles/Vol] 13 mmol/L 7 - 17 mmol/L [facility] Chloride [Moles/Vol] 107 mmol/L 98 - 10 8 mmol/L [facility] CO2 [Moles/Vol] 23 mmol/L 21 - 31 mmol/L [facility] Creatinine [Mass/Vol] 2.15 mg/dL High 0.70 - 1.30 mg/dL [facility] eGFR, CKD-EPI, Male 35 Low - PINF [facility] Comment on above: Reported eGFR is bas ed on the CKD-EPI 2020 equation using creatinine, age, and sex. Glucose [Mass/Vol] 87 mg/dL 70 - 99 mg/dL [facility] Interpretation and review of laboratory results Abnormal [facility] Osmolality Calc [Osmolality] 300 [facility] Potassium [Moles/Vol] 4.8 mmol/L 3.5 - 5.0 mmol/L [facility] Sodium [Moles/Vol] 138 mmol/L 135 - 145 mmol/L [facility] Urea nitrogen [Mass/Vol] 41 mg/dL High 7 - 25 mg/dL [facility] Urea nitrogen/Creatinine [Mass ratio] 19 mg/mg [facility] Anion gap [Moles/Vol] 13 mmol/L Normal 7-17 [facility] Comment on above: Performed By: #### JUAN GONZALEZ, IPB ####[facility] (DEFAULT)[address] [facility] [place] [address] Chloride [Moles/Vol] 107 mmol/L Normal 98-108 [facility] Comment on above: Performed By: #### JUAN GONZALEZ, IPB ####[facility] (DEFAULT)[address] [facility] [place] [address] CO2 [Moles/Vol] 23 mmol/L Normal 21-31 [facility] Comment on above: Performed By: #### JUAN GONZALEZ, IPB ####[facility] (DEFAULT)[address] [facility] [place] [address] Creatinine [Mass/Vol] 2.15 mg/dL High 0.70-1.30 [facility] Comment on above: Performed By: #### JUAN GONZALEZ, IPB ####[facility] (DEFAULT)[address] [facility] [place] [address] GFR/1.73 sq M.predicted among non-blacks MDRD (S/P/Bld) [Vol rate/Area] 35 mL/min/{1.73_m2} Low >=60 [facility] Comment on above: Result Comment: Repo rted eGFR is based on the CKD-EPI 2020 equation using creatinine, age, and sex. Performed By: #### JUAN GONZALEZ, IPB ####[facility] (DEFAULT)[address] [place] [address] Glucose [Mass/Vol] 87 mg/dL Normal 70-99 [facility] Comment on above: Performed By: #### JUAN GONZALEZ, IPB ####[facility] (DEFAULT)[address] [place] [address] Osmolality [Osmolality] 300 mosm/kg Normal 278-305 [facility] Comment on above: Performed By: #### JUAN GONZALEZ, IPB ####[facility] (DEFAULT)[address] [place] [address] Potassium [Moles/Vol] 4.8 mmol/L Normal 3.5-5.0 [facility] Comment on above: Performed By: #### JUAN GONZALEZ, IPB ####[facility] (DEFAULT)[address] [place] [address] Sodium [Moles/Vol] 138 mmol/L Normal 135-145 [facility] Comment on above: Performed By: #### JUAN GONZALEZ, IPB ####[facility] (DEFAULT)[address] [place] [address] Urea nitrogen [Mass/Vol] 41 mg/dL High 7-25 [facility] Comment on above: Performed By: #### JUAN GONZALEZ, IPB ####[facility] (DEFAULT)[address] [place] [address] Urea nitrogen/Creatinine [Mass ratio] 19 mg/mg Normal [facility] Comment on above: Performed By: #### JUAN GONZALEZ, IPB ####[facility] (DEFAULT)[address] [place] [address] MAGNESIUMon 03-28-2024 Magnesium [Mass/Vol] 1.7 mg/dL 1.6 - 2 .6 mg/dL [facility] Magnesium [Mass/Vol] 1.7 mg/dL Normal 1.6-2.6 [facility] Comment on above: Performed By: #### JUAN GONZALEZ, TERI ####[facility] (DEFAULT)[address] [place] [address] No Panel Informationon 03-28 Interpretation and review of laboratory results Normal [facility] PHOSPHATE, INORGANICon 03-28 Phosphate [Mass/Vol] 2.8 mg/dL 2.2 - 4 .6 mg/dL [facility] Phosphorous 2.8 mg/dL Normal 2.2-4.6 [facility] Comment on above: Performed By: #### JUAN GONZALEZ, TERI ####[facility] (DEFAULT)[address] [place] [address] TACROLIMUS LEVEL, TROUGH ([place] E DRUG LEVEL)on 03-28-2024 Tacrolimus (Bld) [Mass/Vol] 6.7 ng/mL Bone Marrow Transplant: 5.0-15.0 Kidney/Pancr eatic Transplant: 0 to 3 months: 8.0-10.0, 3 to 12 months: 6.0-8.0, >12 months: 4.0-6.0 [facility] Method performed is a chemiluminescent microparticle immunoasssay on the [employer] i2000. The range is based on experience at [facility] and users should be aware that target concentrations vary widely depending on concomitant therapy, time post-transplant, and desired degree of immunosuppression. [facility] CBC,PLATELETSon 03-27-2024 Erythrocyte distribution width (RBC) [Ratio] 12.5 % 10.9 - 14.3 % [facility] Hematocrit (Bld) [Volume fraction] 23.5 % Low 39.6 - 48.8 % [facility] Hemoglobin (Bld) [Mass/Vol] 7.5 g/dL Low 13.4 - 16.8 g/dL [facility] Interpretation and review of laboratory results Abnormal [facility] MCH (RBC) [Entitic mass] 30.4 pg 26.1 - 33.3 pg [facility] MCHC (RBC) [Mass/Vol] 31.9 g/dL 31.9 - 36.5 g/dL [facility] MCV (RBC) [Entitic vol] 95.1 fL High 79.0 - 94.5 fL [facility] Platelet mean volume (Bld) [Entitic vol] [facility] Comment on above: Not measured Platelets (Bld) [#/Vol] 128 10*3/uL Low 146 - 337 K/uL [facility] RBC (Bld) [#/Vol] 2.47 10*6/uL Low [facility] WBC (Bld) [#/Vol] 5.55 10*3/uL 3.73 - 10. 10 K/uL [facility] Hematocrit (Bld) [Volume fraction] 23.5 % Low 39.6-48.8 [facility] Comment on above: Performed By: #### S URGP #### [facility] (DEFAULT) [address] [address] Hemoglobin (Bld) [Mass/Vol] 7.5 g/dL Low 13.4-16.8 [facility] Comment on above: Performed By: #### S URGP #### [facility] (DEFAULT) [address] [address] MCV (RBC) [Entitic vol] 95.1 fL High 79.0-94.5 [facility] Comment on above: Performed By: #### S URGP #### [facility] (DEFAULT) [address] [address] Mean Cell Hgb 30.4 pg Normal 26.1-33.3 [facility] Comment on above: Performed By: #### S URGP #### [facility] (DEFAULT) [address] [address] Mean Cell Hgb Conc 31.9 g/dL Normal 31.9-36.5 [facility] Comment on above: Performed By: #### S URGP #### [facility] (DEFAULT) [address] [place] [address] 29300 Mean Platelet Volume Normal [facility] Comment on above: Result Comment: Not measured Performed By: #### S URGP #### [facility] (DEFAULT) [address] [place] [address] 71881 Platelets (Bld) [#/Vol] 128 10*3/uL Low 146-337 [facility] Comment on above: Performed By: #### S URGP #### [facility] (DEFAULT) [address] [place] [address] 70925 RBC (Bld) [#/Vol] 2.47 10*6/uL Low 4.38-5.83 [facility] Comment on above: Performed By: #### S URGP #### [facility] (DEFAULT) [address] [place] [address] 14960 RBC Distribution 12.5 % Normal 10.9-14.3 [facility] Comment on above: Performed By: #### S URGP #### [facility] (DEFAULT) [address] [place] [address] 66470 WBC (Bld) [#/Vol] 5.55 10*3/uL Normal 3.73-10.10 [facility] Comment on above: Performed By: #### S URGP #### [facility] (DEFAULT) [address] [place] [address] 01299 CHEM 7 (LYTES,BUN,CREA,GLUC) on 03-27-2024 Anion gap [Moles/Vol] 12 mmol/L 7 - 17 mmol/L [facility] Chloride [Moles/Vol] 111 mmol/L High 98 - 10 8 mmol/L [facility] CO2 [Moles/Vol] 22 mmol/L 21 - 31 mmol/L [facility] Creatinine [Mass/Vol] 2.24 mg/dL High 0.70 - 1.30 mg/dL [facility] eGFR, CKD-EPI, Male 34 Low - PINF [facility] Comment on above: Reported eGFR is bas ed on the CKD-EPI 2020 equation using creatinine, age, and sex. Glucose [Mass/Vol] 92 mg/dL 70 - 99 mg/dL [facility] Interpretation and review of laboratory results Abnormal [facility] Osmolality Calc [Osmolality] 305 [facility] Potassium [Moles/Vol] 4.9 mmol/L 3.5 - 5.0 mmol/L [facility] [facility] Sodium [Moles/Vol] 140 mmol/L 135 - 145 mmol/L [facility] Urea nitrogen [Mass/Vol] 43 mg/dL High 7 - 25 mg/dL [facility] Urea nitrogen/Creatinine [Mass ratio] 19 mg/mg [facility] Anion gap [Moles/Vol] 12 mmol/L Normal 7-17 [facility] Comment on above: Performed By: #### X MPO #### [facility] (DEFAULT) [address] [place] [address] Chloride [Moles/Vol] 111 mmol/L High 98-108 [facility] Comment on above: Performed By: #### X MPO #### [facility] (DEFAULT) [address] [place] [address] CO2 [Moles/Vol] 22 mmol/L Normal 21-31 [facility] Comment on above: Performed By: #### X MPO #### [facility] (DEFAULT) [address] [place] [address] Creatinine [Mass/Vol] 2.24 mg/dL High 0.70-1.30 [facility] Comment on above: Performed By: #### X MPO #### [facility] (DEFAULT) [address] [address] GFR/1.73 sq M.predicted among non-blacks MDRD (S/P/Bld) [Vol rate/Area] 34 mL/min/{1.73_m2} Low >=60 [facility] Comment on above: Result Comment: Repo rted eGFR is based on the CKD-EPI 2020 equation using creatinine, age, and sex. Performed By: #### X MPO #### [facility] (DEFAULT) [address] [place] [address] Glucose [Mass/Vol] 92 mg/dL Normal 70-99 [facility] Comment on above: Performed By: #### X MPO #### [facility] (DEFAULT) [address] [place] [address]41 Osmolality [Osmolality] 305 mosm/kg Normal 278-305 [facility] Comment on above: Performed By: #### X MPO #### [facility] (DEFAULT) [address] [place] [address] Potassium [Moles/Vol] 4.9 mmol/L Normal 3.5-5.0 [facility] Comment on above: Performed By: #### X MPO #### [facility] (DEFAULT) [address] [place] [address]66 Sodium [Moles/Vol] 140 mmol/L Normal 135-145 [facility] Comment on above: Performed By: #### X MPO #### [facility] (DEFAULT) [address] [place] [address]30 Urea nitrogen [Mass/Vol] 43 mg/dL High 7-25 [facility] Comment on above: Performed By: #### X MPO #### [facility] (DEFAULT) [address] [place] [address]382 Urea nitrogen/Creatinine [Mass ratio] 19 mg/mg Normal [facility] Comment on above: Performed By: #### X MPO #### [facility] (DEFAULT) [address] [place] [address]99 GENERAL PROCEDUREon 03-27-20 [facility] Radiology Study observation (narrative) [facility] MAGNESIUMon 03-27-2024 Magnesium [Mass/Vol] 1.8 mg/dL 1.6 - 2 .6 mg/dL [facility] Magnesium [Mass/Vol] 1.8 mg/dL Normal 1.6-2.6 [facility] Comment on above: Performed By: #### X MPO #### [facility] (DEFAULT) [address] [place] [address] No Panel Informationon 03-27 Interpretation and review of laboratory results Normal [facility] PHOSPHATE, INORGANICon 03-27 Phosphate [Mass/Vol] 2.7 mg/dL 2.2 - 4 .6 mg/dL [facility] Phosphorous 2.7 mg/dL Normal 2.2-4.6 [facility] Comment on above: Performed By: #### X MPO #### [facility] (DEFAULT) [address] [place] [address] PREPARE TO TRANSFUSE RED BLO OD CELLSon 03-27-2024 ABO/RH(D) TYPE Positive [facility] BLOOD COMPONENT TYPE Red Cells, Leukoreduced [facility] EXPIRATION DATE [id number] [facility] Product ABO/RH(D) Positive [facility] Product ABO/RH(D) NUMBER [id number] [facility] PRODUCT CODE [id number] [facility] UNIT NUMBER [id number] [facility] UNIT STATUS Available [facility] PT,INR,PTTon 03-27-2024 aPTT Coag (PPP) [Time] 33.0 s [facility] INR Coag (Bld) [Relative time] 1.1 {INR} 0.9 - 1.1 [facility] Interpretation and review of laboratory results Abnormal [facility] PT Coag (PPP) [Time] 14.6 s High [facility] aPTT Coag (Bld) [Time] 33.0 s Normal 24.0-34.3 [facility] Comment on above: Performed By: #### X MPO #### [facility] (DEFAULT) [address] [place] [address] INR Coag (PPP) [Relative time] 1.1 {INR} Normal 0.9-1.1 [facility] Comment on above: Performed By: #### X MPO #### [facility] (DEFAULT) [address] [place] [address] PT Coag (PPP) [Time] 14.6 s High 11.9-14.2 [facility] Comment on above: Performed By: #### X MPO #### [facility] (DEFAULT) [address] [place] [address]75 TACROLIMUS LEVEL, TROUGH ([place] E DRUG LEVEL)on 03-27-2024 Tacrolimus, Trough 6.7 ng/mL Normal [facility] ow Transplant: 5.0-15.0 Kidney/Pancr eatic Transplant: 0 to 3 months: 8.0-10.0, 3 to 12 months: 6.0-8.0, >12 months: 4.0-6.0 [facility] Comment on above: Order Comment: Pleas e draw at specified interval PRIOR to dose. Do not hold dose to wait for level. Specimens batched twice per day, (M-F) and once per day weekendsMethod performed is a chemiluminescent microparticle immunoasssay on the Cash [employer] Manager i2000.The range is based on experience at [facility] and users should be aware that target concentrations vary widely depending on concomitant therapy, time post-transplant, and desired degree of immunosuppression. Performed By: #### S URGP #### [facility] (DEFAULT) [address] [place] [address]95 Tacrolimus (Bld) [Mass/Vol] 7.8 ng/mL Bone Marrow Transplant: 5.0-15.0 Kidney/Pancr eatic Transplant: 0 to 3 months: 8.0-10.0, 3 to 12 months: 6.0-8.0, >12 months: 4.0-6.0 [facility] Method performed is a chemiluminescent microparticle immunoasssay on the [employer] i2000. The range is based on experience at [facility] and users should be aware that target concentrations vary widely depending on concomitant therapy, time post-transplant, and desired degree of immunosuppression. [facility] Tacrolimus, Trough 7.8 ng/mL Normal Bone [facility] ow Transplant: 5.0-15.0 Kidney/Pancr eatic Transplant: 0 to 3 months: 8.0-10.0, 3 to 12 months: 6.0-8.0, >12 months: 4.0-6.0 [facility] Comment on above: Order Comment: To be collected on POD1 Performed By: #### C A, MGO, IPB, CHM7 #### [facility] (DEFAULT) [address] [place] [id number] CBC,PLATELETSon 03-26-2024 Erythrocyte distribution width (RBC) [Ratio] 12.8 % 10.9 - 14.3 % [facility] Hematocrit (Bld) [Volume fraction] 25.1 % Low 39.6 - 48.8 % [facility] Hemoglobin (Bld) [Mass/Vol] 8.0 g/dL Low 13.4 - 16.8 g/dL [facility] Interpretation and review of laboratory results Abnormal [facility] MCH (RBC) [Entitic mass] 30.4 pg 26.1 - 33.3 pg [facility] MCHC (RBC) [Mass/Vol] 31.9 g/dL 31.9 - 36.5 g/dL [facility] MCV (RBC) [Entitic vol] 95.4 fL High 79.0 - 94.5 fL [facility] Platelet mean volume (Bld) [Entitic vol] [facility] Comment on above: Not measured Platelets (Bld) [#/Vol] 141 10*3/uL Low 146 - 337 K/uL [facility] RBC (Bld) [#/Vol] 2.63 10*6/uL Low [facility] WBC (Bld) [#/Vol] 6.70 10*3/uL 3.73 - 10. 10 K/uL [facility] Hematocrit (Bld) [Volume fraction] 25.1 % Low 39.6-48.8 [facility] Comment on above: Performed By: #### H EMOGC #### [facility] (DEFAULT) [address] [address] Hemoglobin (Bld) [Mass/Vol] 8.0 g/dL Low 13.4-16.8 [facility] Comment on above: Performed By: #### H EMOGC #### [facility] (DEFAULT) [address] [address] MCV (RBC) [Entitic vol] 95.4 fL High 79.0-94.5 [facility] Comment on above: Performed By: #### H EMOGC #### [facility] (DEFAULT) [address] [address] Mean Cell Hgb 30.4 pg Normal 26.1-33.3 [facility] Comment on above: Performed By: #### H EMOGC #### [facility] (DEFAULT) [address] [address] Mean Cell Hgb Conc 31.9 g/dL Normal 31.9-36.5 [facility] Comment on above: Performed By: #### H EMOGC #### [facility] (DEFAULT) [address] [address] Mean Platelet Volume Normal [facility] Comment on above: Result Comment: Not measured Performed By: #### H EMOGC #### [facility] (DEFAULT) [address] [address] Platelets (Bld) [#/Vol] 141 10*3/uL Low 146-337 [facility] Comment on above: Performed By: #### H EMOGC #### [facility] (DEFAULT) [address] [address] RBC (Bld) [#/Vol] 2.63 10*6/uL Low 4.38-5.83 [facility] Comment on above: Performed By: #### H [facility] #### [facility] (DEFAULT) [address] [place] [address] RBC Distribution 12.8 % Normal 10.9-14.3 [facility] Comment on above: Performed By: #### H [facility] #### [facility] (DEFAULT) [address] [place] [address] WBC (Bld) [#/Vol] 6.70 10*3/uL Normal 3.73-10.10 [facility] Comment on above: Performed By: #### H [facility] #### [facility] (DEFAULT) [address] [place] [address] CHEM 7 (LYTES,BUN,CREA,GLUC) on 03-26-2024 Anion gap [Moles/Vol] 13 mmol/L 7 - 17 mmol/L [facility] Chloride [Moles/Vol] 111 mmol/L High 98 - 10 8 mmol/L [facility] CO2 [Moles/Vol] 21 mmol/L 21 - 31 mmol/L [facility] Creatinine [Mass/Vol] 2.32 mg/dL High 0.70 - 1.30 mg/dL [facility] eGFR, CKD-EPI, Male 32 Low - PINF [facility] Comment on above: Reported eGFR is bas ed on the CKD-EPI 2020 equation using creatinine, age, and sex. Glucose [Mass/Vol] 96 mg/dL 70 - 99 mg/dL [facility] Interpretation and review of laboratory results Abnormal [facility] Osmolality Calc [Osmolality] 305 [facility] Potassium [Moles/Vol] 5.1 mmol/L High 3.5 - 5.0 mmol/L [facility] Sodium [Moles/Vol] 140 mmol/L 135 - 145 mmol/L [facility] Urea nitrogen [Mass/Vol] 43 mg/dL High 7 - 25 mg/dL [facility] Urea nitrogen/Creatinine [Mass ratio] 19 mg/mg [facility] Anion gap [Moles/Vol] 13 mmol/L Normal 7-17 [facility] Comment on above: Performed By: #### TERI GONZALEZ CHM7 ####[facility] (DEFAULT)[address] [place] [address] Chloride [Moles/Vol] 111 mmol/L High 98-108 [facility] Comment on above: Performed By: #### TERI GONZALEZ CHM7 ####[facility] (DEFAULT)[address] [place] [address] CO2 [Moles/Vol] 21 mmol/L Normal 21-31 [facility] Comment on above: Performed By: #### TERI GONZALEZ CHM7 ####[facility] (DEFAULT)[address] [facility] [place] [address] Creatinine [Mass/Vol] 2.32 mg/dL High 0.70-1.30 [facility] Comment on above: Performed By: #### TERI GONZALEZ, CHM7 ####[facility] (DEFAULT)[address] [facility] [place] [address] GFR/1.73 sq M.predicted among non-blacks MDRD (S/P/Bld) [Vol rate/Area] 32 mL/min/{1.73_m2} Low >=60 [facility] Comment on above: Result Comment: Repo rted eGFR is based on the CKD-EPI 2020 equation using creatinine, age, and sex. Performed By: #### TERI GONZALEZ, CHM7 ####[facility] (DEFAULT)[address] [facility] [place] [address] Glucose [Mass/Vol] 96 mg/dL Normal 70-99 [facility] Comment on above: Performed By: #### TERI GONZALEZ, CHM7 ####[facility] (DEFAULT)[address] [facility] [place] [address] Osmolality [Osmolality] 305 mosm/kg Normal 278-305 [facility] Comment on above: Performed By: #### TERI GONZALEZ CHM7 ####[facility] (DEFAULT)[address] [facility] [place] [address] Potassium [Moles/Vol] 5.1 mmol/L High 3.5-5.0 [facility] Comment on above: Performed By: #### TERI GONZALEZ CHM7 ####[facility] (DEFAULT)[address] [facility] [place] [address] Sodium [Moles/Vol] 140 mmol/L Normal 135-145 [facility] Comment on above: Performed By: #### TERI GONZALEZ CHM7 ####[facility] (DEFAULT)[address] [facility] [place] [address] Urea nitrogen [Mass/Vol] 43 mg/dL High 7-25 [facility] Comment on above: Performed By: #### TERI GONZALEZ CHM7 ####[facility] (DEFAULT)[address] [facility] [place] [address] Urea nitrogen/Creatinine [Mass ratio] 19 mg/mg Normal [facility] Comment on above: Performed By: #### TERI GONZALEZ CHM7 ####[facility] (DEFAULT)[address] [facility] [place] [address] CONTINUOUS CARDIAC MONITORIN G STRIPon 03-26-2024 [facility] MAGNESIUMon 03-26-2024 Magnesium [Mass/Vol] 1.8 mg/dL 1.6 - 2 .6 mg/dL [facility] Magnesium [Mass/Vol] 1.8 mg/dL Normal 1.6-2.6 [facility] Comment on above: Performed By: #### TERI GONZALEZ CHTomas7 ####[facility] (DEFAULT)[address] [facility] [place] [address] No Panel Informationon 03-26 Interpretation and review of laboratory results Normal [facility] PHOSPHATE, INORGANICon 03-26 Phosphate [Mass/Vol] 2.3 mg/dL 2.2 - 4 .6 mg/dL [facility] Phosphorous 2.3 mg/dL Normal 2.2-4.6 [facility] Comment on above: Performed By: #### M GO, IPB, CHM7 ####[facility] (DEFAULT)[address] [place] [address] TACROLIMUS LEVEL, TROUGH ([place] E DRUG LEVEL)on 03-26-2024 Tacrolimus (Bld) [Mass/Vol] 8.5 ng/mL Bone Marrow Transplant: 5.0-15.0 Kidney/Pancr eatic Transplant: 0 to 3 months: 8.0-10.0, 3 to 12 months: 6.0-8.0, >12 months: 4.0-6.0 [facility] Method performed is a chemiluminescent microparticle immunoasssay on the [employer] i2000. The range is based on experience at [facility] and users should be aware that target concentrations vary widely depending on concomitant therapy, time post-transplant, and desired degree of immunosuppression. [facility] Tacrolimus, Trough 8.5 ng/mL Normal Bone [facility] ow Transplant: 5.0-15.0 Kidney/Pancr eatic Transplant: 0 to 3 months: 8.0-10.0, 3 to 12 months: 6.0-8.0, >12 months: 4.0-6.0 [facility] Comment on above: Order Comment: Pleas e draw at specified interval PRIOR to dose. Do not hold dose to wait for level. Specimens batched twice per day, (M-F) and once per day weekendsMethod performed is a chemiluminescent microparticle immunoasssay on the Cash [employer] i2000.The range is based on experience at [facility] and users should be aware that target concentrations vary widely depending on concomitant therapy, time post-transplant, and desired degree of immunosuppression. Performed By: #### T ACRO ####[facility] (DEFAULT)[address] [place] [address] CALCIUMon 03-25-2024 Calcium [Mass/Vol] 8.7 mg/dL 8.6 - 10. 5 mg/dL [facility] Calcium [Mass/Vol] 8.7 mg/dL Normal 8.6-10.5 [facility] Comment on above: Performed By: #### U PCR #### [facility] (DEFAULT) [address] [place] [address] CBC AND ELECTRONIC DIFFon Basophils (Bld) [#/Vol] K/uL 0.00 - 0.09 K/uL [facility] Basophils/100 WBC (Bld) 0.4 % [facility] Differential cell count method Nom (Bld) Electronic Differential [facility] Eosinophils (Bld) [#/Vol] 0.16 10*3/uL 0.00 - 0.48 K/uL [facility] Eosinophils/100 WBC (Bld) 2.2 % [facility] Erythrocyte distribution width (RBC) [Ratio] 13.2 % 10.9 - 14.3 % [facility] Comment on above: This is an appended report. These results have been appended to a previously preliminary verified report. Hematocrit (Bld) [Volume fraction] 21.3 % Low 39.6 - 48.8 % [facility] Comment on above: This is an appended report. These results have been appended to a previously preliminary verified report. Hemoglobin (Bld) [Mass/Vol] 6.5 g/dL Critically low 13.4 - 16.8 g/dL [facility] Comment on above: This result has been called to ALINE ISRAEL RN by João Peña on 03 25 2024 at 1727, and has been read back. This is an appended report. These results have been appended to a previously preliminary verified report. Immature granulocytes (Bld) [#/Vol] 0.04 10*3/uL NINF - 0.07 K/uL [facility] Immature granulocytes/100 WBC (Bld) 0.6 % [facility] Interpretation and review of laboratory results Abnormal [facility] Lymphocytes (Bld) [#/Vol] 1.05 10*3/uL 0.83 - 3.57 K/uL [facility] Lymphocytes/100 WBC (Bld) 14.7 % [facility] MCH (RBC) [Entitic mass] 29.7 pg 26.1 - 33.3 pg [facility] Comment on above: This is an appended report. These results have been appended to a previously preliminary verified report. MCHC (RBC) [Mass/Vol] 30.5 g/dL Low 31.9 - 36.5 g/dL [facility] Comment on above: This is an appended report. These results have been appended to a previously preliminary verified report. MCV (RBC) [Entitic vol] 97.3 fL High 79.0 - 94.5 fL [facility] Comment on above: This is an appended report. These results have been appended to a previously preliminary verified report. Monocytes (Bld) [#/Vol] 0.44 10*3/uL 0.24 - 0.93 K/uL [facility] Monocytes/100 WBC (Bld) 6.2 % [facility] Neutrophils (Bld) [#/Vol] 5.43 10*3/uL 1.57 - 6.19 K/uL [facility] Nucleated RBC/100 WBC (Bld) [Ratio] 0.0 % [facility] Comment on above: This is an appended report. These results have been appended to a previously preliminary verified report. Platelet mean volume (Bld) [Entitic vol] [facility] Comment on above: Not measured Platelets (Bld) [#/Vol] 121 10*3/uL Low 146 - 337 K/uL [facility] Comment on above: This is an appended report. These results have been appended to a previously preliminary verified report. RBC (Bld) [#/Vol] 2.19 10*6/uL Low [facility] Comment on above: This is an appended report. These results have been appended to a previously preliminary verified report. Segmented neutrophils/100 WBC (Bld) 75.9 % [facility] WBC (Bld) [#/Vol] 7.15 10*3/uL 3.73 - 10. 10 K/uL [facility] Comment on above: This is an appended report. These results have been appended to a previously preliminary verified report. [facility] Abs Baso Auto < Normal 0.00-0.09 [facility] Comment on above: Performed By: #### S URGP #### [facility] (DEFAULT) [address] [address] Basophils/100 WBC (Bld) 0.4 % Normal [facility] Comment on above: Performed By: #### S URGP #### [facility] (DEFAULT) [address] [address] DIFF STATUS Electronic Differential Normal [facility] Comment on above: Performed By: #### S URGP #### [facility] (DEFAULT) [address] [place] [address] Eosinophils (Bld) [#/Vol] 0.16 10*3/uL Normal 0.00-0.48 [facility] Comment on above: Performed By: #### S URGP #### [facility] (DEFAULT) [address] [address] Eosinophils/100 WBC (Bld) 2.2 % Normal [facility] Comment on above: Performed By: #### S URGP #### [facility] (DEFAULT) [address] [address] Hematocrit (Bld) [Volume fraction] 21.3 % Low 39.6-48.8 [facility] Comment on above: Result Comment: This is an appended report. These results have been appended to a previously preliminary verified report. Performed By: #### S URGP #### [facility] (DEFAULT) [address] [address] Hemoglobin (Bld) [Mass/Vol] 6.5 g/dL Critically low 13.4-16.8 [facility] Comment on above: Result Comment: This result has been called to ALINE ISRAEL RN by João Peña on 03 25 2024 at 1727, and has been read back. This is an appended report. These results have been appended to a previously preliminary verified report. Performed By: #### S URGP #### [facility] (DEFAULT) [address] [address] Immature Grans % 0.6 % Normal [facility] Comment on above: Performed By: #### S URGP #### [facility] (DEFAULT) [address] [address] Immature Grans Absolute 0.04 K/uL Normal <=0.07 [facility] Comment on above: Performed By: #### S URGP #### [facility] (DEFAULT) [address] [address] Lymphocytes (Bld) [#/Vol] 1.05 10*3/uL Normal 0.83-3.57 [facility] Comment on above: Performed By: #### S URGP #### [facility] (DEFAULT) [address] [address] Lymphocytes/100 WBC (Bld) 14.7 % Normal [facility] Comment on above: Performed By: #### S URGP #### [facility] (DEFAULT) [address] [address] MCV (RBC) [Entitic vol] 97.3 fL High 79.0-94.5 [facility] Comment on above: Result Comment: This is an appended report. These results have been appended to a previously preliminary verified report. Performed By: #### S URGP #### [facility] (DEFAULT) [address] [address] Mean Cell Hgb 29.7 pg Normal 26.1-33.3 [facility] Comment on above: Result Comment: This is an appended report. These results have been appended to a previously preliminary verified report. Performed By: #### S URGP #### [facility] (DEFAULT) [address] [address] Mean Cell Hgb Conc 30.5 g/dL Low 31.9-36.5 [facility] Comment on above: Result Comment: This is an appended report. These results have been appended to a previously preliminary verified report. Performed By: #### S URGP #### [facility] (DEFAULT) [address] [address] Mean Platelet Volume Normal [facility] Comment on above: Result Comment: Not measured Performed By: #### S URGP #### [facility] (DEFAULT) [address] [address] Monocytes (Bld) [#/Vol] 0.44 10*3/uL Normal 0.24-0.93 [facility] Comment on above: Performed By: #### S URGP #### [facility] (DEFAULT) [address] [address] Monocytes/100 WBC (Bld) 6.2 % Normal [facility] Comment on above: Performed By: #### S URGP #### [facility] (DEFAULT) [address] [address] Nucleated RBC 0.0 /100 WBC Normal <=0.2 [facility] Comment on above: Result Comment: This is an appended report. These results have been appended to a previously preliminary verified report. Performed By: #### S URGP #### [facility] (DEFAULT) [address] [address] Platelets (Bld) [#/Vol] 121 10*3/uL Low 146-337 [facility] Comment on above: Result Comment: This is an appended report. These results have been appended to a previously preliminary verified report. Performed By: #### S URGP #### [facility] (DEFAULT) [address] [address] RBC (Bld) [#/Vol] 2.19 10*6/uL Low 4.38-5.83 [facility] Comment on above: Result Comment: This is an appended report. These results have been appended to a previously preliminary verified report. Performed By: #### S URGP #### [facility] (DEFAULT) [address] [place] [address] RBC Distribution 13.2 % Normal 10.9-14.3 [facility] Comment on above: Result Comment: This is an appended report. These results have been appended to a previously preliminary verified report. Performed By: #### S URGP #### [facility] (DEFAULT) [address] [place] [address] Segs + Bands Auto 75.9 % Normal [facility] Comment on above: Performed By: #### S URGP #### [facility] (DEFAULT) [address] [place] [address] Segs + Bands,Absolute Auto 5.43 K/uL Normal 1.57-6.19 [facility] Comment on above: Performed By: #### S URGP #### [facility] (DEFAULT) [address] [place] [address] WBC (Bld) [#/Vol] 7.15 10*3/uL Normal 3.73-10.10 [facility] Comment on above: Result Comment: This is an appended report. These results have been appended to a previously preliminary verified report. Performed By: #### S URGP #### [facility] (DEFAULT) [address] [address] CBC,PLATELETSon 03-25-2024 Erythrocyte distribution width (RBC) [Ratio] 13.1 % 10.9 - 14.3 % [facility] Hematocrit (Bld) [Volume fraction] 26.8 % Low 39.6 - 48.8 % [facility] Hemoglobin (Bld) [Mass/Vol] 8.2 g/dL Low 13.4 - 16.8 g/dL [facility] Interpretation and review of laboratory results Abnormal [facility] MCH (RBC) [Entitic mass] 29.4 pg 26.1 - 33.3 pg [facility] MCHC (RBC) [Mass/Vol] 30.6 g/dL Low 31.9 - 36.5 g/dL [facility] MCV (RBC) [Entitic vol] 96.1 fL High 79.0 - 94.5 fL [facility] Platelet mean volume (Bld) [Entitic vol] 11.4 fL 8.7 - 12.3 fL [facility] Platelets (Bld) [#/Vol] 148 10*3/uL 146 - 337 K/uL [facility] RBC (Bld) [#/Vol] 2.79 10*6/uL Low [facility] WBC (Bld) [#/Vol] 8.94 10*3/uL 3.73 - 10. 10 K/uL [facility] Hematocrit (Bld) [Volume fraction] 26.8 % Low 39.6-48.8 [facility] Comment on above: Performed By: #### S URGP #### [facility] (DEFAULT) [address] [place] [address] Hemoglobin (Bld) [Mass/Vol] 8.2 g/dL Low 13.4-16.8 [facility] Comment on above: Performed By: #### S URGP #### [facility] (DEFAULT) [address] [place] [address] MCV (RBC) [Entitic vol] 96.1 fL High 79.0-94.5 [facility] Comment on above: Performed By: #### S URGP #### [facility] (DEFAULT) [address] [place] [address] Mean Cell Hgb 29.4 pg Normal 26.1-33.3 [facility] Comment on above: Performed By: #### S URGP #### [facility] (DEFAULT) [address] [place] [address] Mean Cell Hgb Conc 30.6 g/dL Low 31.9-36.5 [facility] Comment on above: Performed By: #### S URGP #### [facility] (DEFAULT) [address] [place] [address] Platelet mean volume (Bld) [Entitic vol] 11.4 fL Normal 8.7-12.3 [facility] Comment on above: Performed By: #### S URGP #### [facility] (DEFAULT) [address] [place] [address] Platelets (Bld) [#/Vol] 148 10*3/uL Normal 146-337 [facility] Comment on above: Performed By: #### S URGP #### [facility] (DEFAULT) [address] [place] [address] RBC (Bld) [#/Vol] 2.79 10*6/uL Low 4.38-5.83 [facility] Comment on above: Performed By: #### S URGP #### [facility] (DEFAULT) [address] [place] [address] RBC Distribution 13.1 % Normal 10.9-14.3 [facility] Comment on above: Performed By: #### S URGP #### [facility] (DEFAULT) [address] [place] [address] WBC (Bld) [#/Vol] 8.94 10*3/uL Normal 3.73-10.10 [facility] Comment on above: Performed By: #### S URGP #### [facility] (DEFAULT) [address] [place] [address] Erythrocyte distribution width (RBC) [Ratio] 13.2 % 10.9 - 14.3 % [facility] Hematocrit (Bld) [Volume fraction] 25.2 % Low 39.6 - 48.8 % [facility] Hemoglobin (Bld) [Mass/Vol] 8.0 g/dL Low 13.4 - 16.8 g/dL [facility] Interpretation and review of laboratory results Abnormal [facility] MCH (RBC) [Entitic mass] 29.9 pg 26.1 - 33.3 pg [facility] MCHC (RBC) [Mass/Vol] 31.7 g/dL Low 31.9 - 36.5 g/dL [facility] MCV (RBC) [Entitic vol] 94.0 fL 79.0 - 94.5 fL [facility] Platelet mean volume (Bld) [Entitic vol] 11.5 fL 8.7 - 12.3 fL [facility] Platelets (Bld) [#/Vol] 149 10*3/uL 146 - 337 K/uL [facility] RBC (Bld) [#/Vol] 2.68 10*6/uL Low [facility] WBC (Bld) [#/Vol] 8.93 10*3/uL 3.73 - 10. 10 K/uL [facility] Hematocrit (Bld) [Volume fraction] 25.2 % Low 39.6-48.8 [facility] Comment on above: Performed By: #### H [facility] #### [facility] (DEFAULT) [address] [place] [address] Hemoglobin (Bld) [Mass/Vol] 8.0 g/dL Low 13.4-16.8 [facility] Comment on above: Performed By: #### H EMO #### [facility] (DEFAULT) [address] [place] [address] MCV (RBC) [Entitic vol] 94.0 fL Normal 79.0-94.5 [facility] Comment on above: Performed By: #### H EMOGC #### [facility] (DEFAULT) [address] [place] [address] Mean Cell Hgb 29.9 pg Normal 26.1-33.3 [facility] Comment on above: Performed By: #### H EMOGC #### [facility] (DEFAULT) [address] [place] [address] Mean Cell Hgb Conc 31.7 g/dL Low 31.9-36.5 [facility] Comment on above: Performed By: #### H EMO #### [facility] (DEFAULT) [address] [place] [address] Platelet mean volume (Bld) [Entitic vol] 11.5 fL Normal 8.7-12.3 [facility] Comment on above: Performed By: #### H EMO #### [facility] (DEFAULT) [address] [address] Platelets (Bld) [#/Vol] 149 10*3/uL Normal 146-337 [facility] Comment on above: Performed By: #### H EMO #### [facility] (DEFAULT) [address] [address] RBC (Bld) [#/Vol] 2.68 10*6/uL Low 4.38-5.83 [facility] Comment on above: Performed By: #### H EMO #### [facility] (DEFAULT) [address] [address] RBC Distribution 13.2 % Normal 10.9-14.3 [facility] Comment on above: Performed By: #### H EMO #### [facility] (DEFAULT) [address] [address] WBC (Bld) [#/Vol] 8.93 10*3/uL Normal 3.73-10.10 [facility] Comment on above: Performed By: #### H EMO #### [facility] (DEFAULT) [address] [address] Erythrocyte distribution width (RBC) [Ratio] 13.2 % 10.9 - 14.3 % [facility] Hematocrit (Bld) [Volume fraction] 25.1 % Low 39.6 - 48.8 % [facility] Hemoglobin (Bld) [Mass/Vol] 8.0 g/dL Low 13.4 - 16.8 g/dL [facility] Interpretation and review of laboratory results Abnormal [facility] MCH (RBC) [Entitic mass] 30.2 pg 26.1 - 33.3 pg [facility] MCHC (RBC) [Mass/Vol] 31.9 g/dL 31.9 - 36.5 g/dL [facility] MCV (RBC) [Entitic vol] 94.7 fL High 79.0 - 94.5 fL [facility] Platelet mean volume (Bld) [Entitic vol] 11.7 fL 8.7 - 12.3 fL [facility] Platelets (Bld) [#/Vol] 150 10*3/uL 146 - 337 K/uL [facility] RBC (Bld) [#/Vol] 2.65 10*6/uL Low [facility] WBC (Bld) [#/Vol] 9.82 10*3/uL 3.73 - 10. 10 K/uL [facility] Hematocrit (Bld) [Volume fraction] 25.1 % Low 39.6-48.8 [facility] Comment on above: Performed By: #### U PCR #### [facility] (DEFAULT) [address] [address] Hemoglobin (Bld) [Mass/Vol] 8.0 g/dL Low 13.4-16.8 [facility] Comment on above: Performed By: #### U PCR #### [facility] (DEFAULT) [address] [place] [address] MCV (RBC) [Entitic vol] 94.7 fL High 79.0-94.5 [facility] Comment on above: Performed By: #### U PCR #### [facility] (DEFAULT) [address] [place] [address] Mean Cell Hgb 30.2 pg Normal 26.1-33.3 [facility] Comment on above: Performed By: #### U PCR #### [facility] (DEFAULT) [address] [place] [address] Mean Cell Hgb Conc 31.9 g/dL Normal 31.9-36.5 [facility] Comment on above: Performed By: #### U PCR #### [facility] (DEFAULT) [address] [place] [address] Platelet mean volume (Bld) [Entitic vol] 11.7 fL Normal 8.7-12.3 [facility] Comment on above: Performed By: #### U PCR #### [facility] (DEFAULT) [address] [place] [address] Platelets (Bld) [#/Vol] 150 10*3/uL Normal 146-337 [facility] Comment on above: Performed By: #### U PCR #### [facility] (DEFAULT) [address] [place] [address] RBC (Bld) [#/Vol] 2.65 10*6/uL Low 4.38-5.83 [facility] Comment on above: Performed By: #### U PCR #### [facility] (DEFAULT) [address] [place] [address] RBC Distribution 13.2 % Normal 10.9-14.3 [facility] Comment on above: Performed By: #### U PCR #### [facility] (DEFAULT) [address] [place] [address] WBC (Bld) [#/Vol] 9.82 10*3/uL Normal 3.73-10.10 [facility] Comment on above: Performed By: #### U PCR #### [facility] (DEFAULT) [address] [place] [address] CHEM 7 (LYTES,BUN,CREA,GLUC) on 03-25-2024 Anion gap [Moles/Vol] 11 mmol/L 7 - 17 mmol/L [facility] Chloride [Moles/Vol] 112 mmol/L High 98 - 10 8 mmol/L [facility] CO2 [Moles/Vol] 24 mmol/L 21 - 31 mmol/L [facility] Creatinine [Mass/Vol] 2.49 mg/dL High 0.70 - 1.30 mg/dL [facility] eGFR, CKD-EPI, Male 30 Low - PINF [facility] Comment on above: Reported eGFR is bas ed on the CKD-EPI 2020 equation using creatinine, age, and sex. Glucose [Mass/Vol] 96 mg/dL 70 - 99 mg/dL [facility] Osmolality Calc [Osmolality] 310 High [facility] Potassium [Moles/Vol] 5.0 mmol/L 3.5 - 5.0 mmol/L [facility] Sodium [Moles/Vol] 142 mmol/L 135 - 145 mmol/L [facility] Urea nitrogen [Mass/Vol] 45 mg/dL High 7 - 25 mg/dL [facility] Urea nitrogen/Creatinine [Mass ratio] 18 mg/mg [facility] Anion gap [Moles/Vol] 11 mmol/L Normal 7-17 [facility] Comment on above: Performed By: #### X MPO #### [facility] (DEFAULT) [address] [address] Chloride [Moles/Vol] 112 mmol/L High 98-108 [facility] Comment on above: Performed By: #### X MPO #### [facility] (DEFAULT) [address] [address] CO2 [Moles/Vol] 24 mmol/L Normal 21-31 [facility] Comment on above: Performed By: #### X MPO #### [facility] (DEFAULT) [address] [address] Creatinine [Mass/Vol] 2.49 mg/dL High 0.70-1.30 [facility] Comment on above: Performed By: #### X MPO #### [facility] (DEFAULT) [address] [address] GFR/1.73 sq M.predicted among non-blacks MDRD (S/P/Bld) [Vol rate/Area] 30 mL/min/{1.73_m2} Low >=60 [facility] Comment on above: Result Comment: Repo rted eGFR is based on the CKD-EPI 2020 equation using creatinine, age, and sex. Performed By: #### X MPO #### [facility] (DEFAULT) [address] [place] [address] Glucose [Mass/Vol] 96 mg/dL Normal 70-99 [facility] Comment on above: Performed By: #### X MPO #### [facility] (DEFAULT) [address] [place] [address] Osmolality [Osmolality] 310 mosm/kg High 278-305 [facility] Comment on above: Performed By: #### X MPO #### [facility] (DEFAULT) [address] [place] [address] Potassium [Moles/Vol] 5.0 mmol/L Normal 3.5-5.0 [facility] Comment on above: Performed By: #### X MPO #### [facility] (DEFAULT) [address] [place] [address] Sodium [Moles/Vol] 142 mmol/L Normal 135-145 [facility] Comment on above: Performed By: #### X MPO #### [facility] (DEFAULT) [address] [place] [address] Urea nitrogen [Mass/Vol] 45 mg/dL High 7-25 [facility] Comment on above: Performed By: #### X MPO #### [facility] (DEFAULT) [address] [place] [address] Urea nitrogen/Creatinine [Mass ratio] 18 mg/mg Normal [facility] Comment on above: Performed By: #### X MPO #### [facility] (DEFAULT) [address] [place] [address] Anion gap [Moles/Vol] 12 mmol/L 7 - 17 mmol/L [facility] Chloride [Moles/Vol] 111 mmol/L High 98 - 10 8 mmol/L [facility] CO2 [Moles/Vol] 24 mmol/L 21 - 31 mmol/L [facility] Creatinine [Mass/Vol] 2.51 mg/dL High 0.70 - 1.30 mg/dL [facility] eGFR, CKD-EPI, Male 29 Low - PINF [facility] Comment on above: Reported eGFR is bas ed on the CKD-EPI 2020 equation using creatinine, age, and sex. Glucose [Mass/Vol] 110 mg/dL High 70 - 99 mg/dL [facility] Interpretation and review of laboratory results Abnormal [facility] Osmolality Calc [Osmolality] 310 High [facility] Potassium [Moles/Vol] 5.2 mmol/L High 3.5 - 5.0 mmol/L [facility] Sodium [Moles/Vol] 142 mmol/L 135 - 145 mmol/L [facility] Urea nitrogen [Mass/Vol] 43 mg/dL High 7 - 25 mg/dL [facility] Urea nitrogen/Creatinine [Mass ratio] 17 mg/mg [facility] Anion gap [Moles/Vol] 12 mmol/L Normal 7-17 [facility] Comment on above: Performed By: #### H [facility] #### [facility] (DEFAULT) [address] [address] Chloride [Moles/Vol] 111 mmol/L High 98-108 [facility] Comment on above: Performed By: #### H [facility] #### [facility] (DEFAULT) [address] [place] [address] CO2 [Moles/Vol] 24 mmol/L Normal 21-31 [facility] Comment on above: Performed By: #### H EMO #### [facility] (DEFAULT) [address] [address] Creatinine [Mass/Vol] 2.51 mg/dL High 0.70-1.30 [facility] Comment on above: Performed By: #### H EMO #### [facility] (DEFAULT) [address] [place] [address] GFR/1.73 sq M.predicted among non-blacks MDRD (S/P/Bld) [Vol rate/Area] 29 mL/min/{1.73_m2} Low >=60 [facility] Comment on above: Result Comment: Repo rted eGFR is based on the CKD-EPI 2020 equation using creatinine, age, and sex. Performed By: #### H EMOGC #### [facility] (DEFAULT) [address] [place] [address] Glucose [Mass/Vol] 110 mg/dL High 70-99 [facility] Comment on above: Performed By: #### H EMOGC #### [facility] (DEFAULT) [address] [address] Osmolality [Osmolality] 310 mosm/kg High 278-305 [facility] Comment on above: Performed By: #### H EMO #### [facility] (DEFAULT) [address] [address] Potassium [Moles/Vol] 5.2 mmol/L High 3.5-5.0 [facility] Comment on above: Performed By: #### H EMO #### [facility] (DEFAULT) [address] [place] [address] Sodium [Moles/Vol] 142 mmol/L Normal 135-145 [facility] Comment on above: Performed By: #### H EMOGC #### [facility] (DEFAULT) [address] [place] [address] Urea nitrogen [Mass/Vol] 43 mg/dL High 7-25 [facility] Comment on above: Performed By: #### H EMOGC #### [facility] (DEFAULT) [address] [address] Urea nitrogen/Creatinine [Mass ratio] 17 mg/mg Normal [facility] Comment on above: Performed By: #### H EMOGC #### [facility] (DEFAULT) [address] [place] [address] Anion gap [Moles/Vol] 12 mmol/L 7 - 17 mmol/L [facility] Chloride [Moles/Vol] 110 mmol/L High 98 - 10 8 mmol/L [facility] CO2 [Moles/Vol] 24 mmol/L 21 - 31 mmol/L [facility] Creatinine [Mass/Vol] 2.60 mg/dL High 0.70 - 1.30 mg/dL [facility] eGFR, CKD-EPI, Male 28 Low - PINF [facility] Comment on above: Reported eGFR is bas ed on the CKD-EPI 2020 equation using creatinine, age, and sex. Glucose [Mass/Vol] 111 mg/dL High 70 - 99 mg/dL [facility] Interpretation and review of laboratory results Abnormal [facility] Osmolality Calc [Osmolality] 309 High [facility] Potassium [Moles/Vol] 5.0 mmol/L 3.5 - 5.0 mmol/L [facility] Sodium [Moles/Vol] 141 mmol/L 135 - 145 mmol/L [facility] Urea nitrogen [Mass/Vol] 47 mg/dL High 7 - 25 mg/dL [facility] Urea nitrogen/Creatinine [Mass ratio] 18 mg/mg [facility] Anion gap [Moles/Vol] 12 mmol/L Normal 7-17 [facility] Comment on above: Performed By: #### U PCR #### [facility] (DEFAULT) [address] [place] [address] Chloride [Moles/Vol] 110 mmol/L High 98-108 [facility] Comment on above: Performed By: #### U PCR #### [facility] (DEFAULT) [address] [place] [address] CO2 [Moles/Vol] 24 mmol/L Normal 21-31 [facility] Comment on above: Performed By: #### U PCR #### [facility] (DEFAULT) [address] [place] [address] Creatinine [Mass/Vol] 2.60 mg/dL High 0.70-1.30 [facility] Comment on above: Performed By: #### U PCR #### [facility] (DEFAULT) [address] [place] [address] GFR/1.73 sq M.predicted among non-blacks MDRD (S/P/Bld) [Vol rate/Area] 28 mL/min/{1.73_m2} Low >=60 [facility] Comment on above: Result Comment: Repo rted eGFR is based on the CKD-EPI 2020 equation using creatinine, age, and sex. Performed By: #### U PCR #### [facility] (DEFAULT) [address] [place] [address] Glucose [Mass/Vol] 111 mg/dL High 70-99 [facility] Comment on above: Performed By: #### U PCR #### [facility] (DEFAULT) [address] [place] [address] Osmolality [Osmolality] 309 mosm/kg High 278-305 [facility] Comment on above: Performed By: #### U PCR #### [facility] (DEFAULT) [address] [place] [address] Potassium [Moles/Vol] 5.0 mmol/L Normal 3.5-5.0 [facility] Comment on above: Performed By: #### U PCR #### [facility] (DEFAULT) [address] [place] [address] Sodium [Moles/Vol] 141 mmol/L Normal 135-145 [facility] Comment on above: Performed By: #### U PCR #### [facility] (DEFAULT) [address] [place] [address] Urea nitrogen [Mass/Vol] 47 mg/dL High 7-25 [facility] Comment on above: Performed By: #### U PCR #### [facility] (DEFAULT) [address] [place] [address] Urea nitrogen/Creatinine [Mass ratio] 18 mg/mg Normal [facility] Comment on above: Performed By: #### U PCR #### [facility] (DEFAULT) [address] [place] [address] CONTINUOUS CARDIAC MONITORIN G STRIPon 03-25-2024 [facility] MAGNESIUMon 03-25-2024 Interpretation and review of laboratory results Normal [facility] Magnesium [Mass/Vol] 1.9 mg/dL 1.6 - 2 .6 mg/dL [facility] Magnesium [Mass/Vol] 1.9 mg/dL Normal 1.6-2.6 [facility] Comment on above: Performed By: #### X MPO #### [facility] (DEFAULT) [address] [place] [address] Magnesium [Mass/Vol] 1.9 mg/dL 1.6 - 2 .6 mg/dL [facility] Magnesium [Mass/Vol] 1.9 mg/dL Normal 1.6-2.6 [facility] Comment on above: Performed By: #### H EMOGC #### [facility] (DEFAULT) [address] [place] [address] Magnesium [Mass/Vol] 1.9 mg/dL 1.6 - 2 .6 mg/dL [facility] Magnesium [Mass/Vol] 1.9 mg/dL Normal 1.6-2.6 [facility] Comment on above: Performed By: #### U PCR #### [facility] (DEFAULT) [address] [place] [address] No Panel Informationon 03-25 ABO/RH(D) TYPE Positive [facility] BLOOD COMPONENT TYPE Red Cells, Leukoreduced [facility] EXPIRATION DATE [id number] [facility] Product ABO/RH(D) Positive [facility] Product ABO/RH(D) NUMBER 5100 [facility] PRODUCT CODE [id number] [facility] UNIT NUMBER [id number] [facility] Interpretation and review of laboratory results Abnormal [facility] Method performed is a chemiluminescent microparticle immunoasssay on the [employer] i2000. The range is based on experience at [facility] and users should be aware that target concentrations vary widely depending on concomitant therapy, time post-transplant, and desired degree of immunosuppression. [facility] Interpretation and review of laboratory results Normal [facility] Interpretation and review of laboratory results Normal [facility] PHOSPHATE, INORGANICon 03-25 Phosphate [Mass/Vol] 2.1 mg/dL Low 2.2 - 4 .6 mg/dL [facility] Phosphorous 2.1 mg/dL Low 2.2-4.6 [facility] Comment on above: Performed By: #### X MPO #### [facility] (DEFAULT) [address] [place] [address] Phosphate [Mass/Vol] 2.6 mg/dL 2.2 - 4 .6 mg/dL [facility] Phosphorous 2.6 mg/dL Normal 2.2-4.6 [facility] Comment on above: Performed By: #### H EMOGC #### [facility] (DEFAULT) [address] [place] [address] Phosphate [Mass/Vol] 2.9 mg/dL 2.2 - 4 .6 mg/dL [facility] Phosphorous 2.9 mg/dL Normal 2.2-4.6 [facility] Comment on above: Performed By: #### U PCR #### [facility] (DEFAULT) [address] [place] [address] PREPARE TO TRANSFUSE RED BLO OD CELLSon 03-25-2024 UNIT STATUS released [facility] UNIT STATUS Available [facility] TACROLIMUS LEVEL, TROUGH ([place] E DRUG LEVEL)on 03-25-2024 Tacrolimus (Bld) [Mass/Vol] 8.2 ng/mL Bone Marrow Transplant: 5.0-15.0 Kidney/Pancr eatic Transplant: 0 to 3 months: 8.0-10.0, 3 to 12 months: 6.0-8.0, >12 months: 4.0-6.0 [facility] Method performed is a chemiluminescent microparticle immunoasssay on the [employer] R[employer] Unit Manager i2000. The range is based on experience at [facility] and users should be aware that target concentrations vary widely depending on concomitant therapy, time post-transplant, and desired degree of immunosuppression. [facility] Tacrolimus (Bld) [Mass/Vol] 8.6 ng/mL Bone Marrow Transplant: 5.0-15.0 Kidney/Pancr eatic Transplant: 0 to 3 months: 8.0-10.0, 3 to 12 months: 6.0-8.0, >12 months: 4.0-6.0 [facility] Tacrolimus (Bld) [Mass/Vol] 9.0 ng/mL Bone Marrow Transplant: 5.0-15.0 Kidney/Pancr eatic Transplant: 0 to 3 months: 8.0-10.0, 3 to 12 months: 6.0-8.0, >12 months: 4.0-6.0 [facility] Tacrolimus, Trough 8.2 ng/mL Normal Bone [place]uyler ow Transplant: 5.0-15.0 Kidney/Pancr eatic Transplant: 0 to 3 months: 8.0-10.0, 3 to 12 months: 6.0-8.0, >12 months: 4.0-6.0 [facility] Comment on above: Order Comment: To be collected on POD1 Performed By: #### H [facility] #### [facility] (DEFAULT) [address] [place] [address] Tacrolimus, Trough 9.0 ng/mL Normal Bone [place] ow Transplant: 5.0-15.0 Kidney/Pancr eatic Transplant: 0 to 3 months: 8.0-10.0, 3 to 12 months: 6.0-8.0, >12 months: 4.0-6.0 [facility] Comment on above: Order Comment: To be collected on POD1 Performed By: #### C A, MGSeema, IPB, CHM7 #### [facility] (DEFAULT) [address] [place] [address] TYPE AND SCREENon 03-25-2024 ABO/RH(D) TYPE Positive Normal [facility] Comment on above: Performed By: #### H [facility] #### [facility] (DEFAULT) [address] [place] [address] Outdate Specimen 03/28/2024 23:59 Normal [facility] Comment on above: Performed By: #### H [facility] #### [facility] (DEFAULT) [address] [place] [address] US RENAL TRANSPLANT SCANon 0 03-25-2024 US RENAL TRANSPLANT SCAN EXAM: US RENAL TRANSPLANT SCAN, 03/25/2024 16:15 PM CLINICAL INDICATIONS: Hydronephrosis follow up after bray placement COMPARISON: Renal transplant ultrasound dated March 24, 2024 TECHNIQUE: Real-time mcgowan scale ultrasound images of the renal transplant in the right lower quadrant were obtained in longitudinal and transverse orientations utilizing a curved array transducer. Color and duplex doppler imaging was used to evaluate vascular flow. FINDINGS: Transplant Kidney: The transplanted kidney is identified in the right lower quadrant. It measures 14.0 cm in length. Severe hydronephrosis, similar to the prior exam. Doppler: Duplex imaging demonstrates normal arterial waveforms in the renal artery. Peak systolic velocity (PSV) in the renal artery: 97 cm/s Acceleration time (AT): 44 ms Peak systolic velocity (PSV) in the external iliac artery: 94 cm/s Ratio of PSV(renal) to PSV(iliac): 1 Intrarenal arterial resistive indices as follows: Upper pole: 0.74 Interpolar: 0.77 Lower pole: 0.79 (range of resistive indices on the previous examination was 0.6, 4.7). Bladder: Bray catheter within a mildly distended bladder. Abdomen: No ascites in the visualized images. IMPRESSION: 1. Severe hydronephrosis in the right lower quadrant transplant kidney, similar to the prior exam 2. Resistivity indices within normal limits. Normal [facility] US for transplanted kidney l imitedon 03-25-2024 IMPRESSION: 1. Severe hydronephrosis in the right lower quadrant transplant kidney, similar to the prior exam 2. Resistivity indices within normal limits. OLOGY EXAM: US RENAL TRANSPLANT SCAN, 03/25/2024 16:15 PM CLINICAL INDICATIONS: Hydronephrosis follow up after bray placement COMPARISON: Renal transplant ultrasound dated March 24, 2024 TECHNIQUE: Real-time mcgowan scale ultrasound images of the renal transplant in the right lower quadrant were obtained in longitudinal and transverse orientations utilizing a curved array transducer. Color and duplex doppler imaging was used to evaluate vascular flow. FINDINGS: Transplant Kidney: The transplanted kidney is identified in the right lower quadrant. It measures 14.0 cm in length. Severe hydronephrosis, similar to the prior exam. Doppler: Duplex imaging demonstrates normal arterial waveforms in the renal artery. Peak systolic velocity (PSV) in the renal artery: 97 cm/s Acceleration time (AT): 44 ms Peak systolic velocity (PSV) in the external iliac artery: 94 cm/s Ratio of PSV(renal) to PSV(iliac): 1 Intrarenal arterial resistive indices as follows: Upper pole: 0.74 Interpolar: 0.77 Lower pole: 0.79 (range of resistive indices on the previous examination was 0.6, 4.7). Bladder: Bray catheter within a mildly distended bladder. Abdomen: No ascites in the visualized images. RADIOLOGY Maurice Corbett DO - 03/25/2024 EXAM: US RENAL TRANSPLANT SCAN, 03/25/2024 16:15 PM CLINICAL INDICATIONS: Hydronephrosis follow up after bray placement COMPARISON: Renal transplant ultrasound dated March 24, 2024 TECHNIQUE: Real-time mcgowan scale ultrasound images of the renal transplant in the right lower quadrant were obtained in longitudinal and transverse orientations utilizing a curved array transducer. Color and duplex doppler imaging was used to evaluate vascular flow. FINDINGS: Transplant Kidney: The transplanted kidney is identified in the right lower quadrant. It measures 14.0 cm in length. Severe hydronephrosis, similar to the prior exam. Doppler: Duplex imaging demonstrates normal arterial waveforms in the renal artery. Peak systolic velocity (PSV) in the renal artery: 97 cm/s Acceleration time (AT): 44 ms Peak systolic velocity (PSV) in the external iliac artery: 94 cm/s Ratio of PSV(renal) to PSV(iliac): 1 Intrarenal arterial resistive indices as follows: Upper pole: 0.74 Interpolar: 0.77 Lower pole: 0.79 (range of resistive indices on the previous examination was 0.6, 4.7). Bladder: Bray catheter within a mildly distended bladder. Abdomen: No ascites in the visualized images. IMPRESSION IMPRESSION: 1. Severe hydronephrosis in the right lower quadrant transplant kidney, similar to the prior exam 2. Resistivity indices within normal limits. [facility] Radiology Study observation (narrative) [facility] US for transplanted kidney l imitedOrdered By: Maurice Corbett on 03-25-2024 [facility] Work Phone: CALCIUMon 03-24-2024 Calcium [Mass/Vol] 8.6 mg/dL 8.6 - 10. 5 mg/dL [facility] Calcium [Mass/Vol] 8.6 mg/dL Normal 8.6-10.5 [facility] Comment on above: Order Comment: To be collected on POD1 Performed By: #### C A, MGO, IPB, CHM7 #### [facility] (DEFAULT) [address] [place] [address] CBC,PLATELETSon 03-24-2024 Erythrocyte distribution width (RBC) [Ratio] 12.9 % 10.9 - 14.3 % [facility] Hematocrit (Bld) [Volume fraction] 28.3 % Low 39.6 - 48.8 % [facility] Hemoglobin (Bld) [Mass/Vol] 9.3 g/dL Low 13.4 - 16.8 g/dL [facility] Interpretation and review of laboratory results Abnormal [facility] MCH (RBC) [Entitic mass] 30.4 pg 26.1 - 33.3 pg [facility] MCHC (RBC) [Mass/Vol] 32.9 g/dL 31.9 - 36.5 g/dL [facility] MCV (RBC) [Entitic vol] 92.5 fL 79.0 - 94.5 fL [facility] Platelet mean volume (Bld) [Entitic vol] 11.6 fL 8.7 - 12.3 fL [facility] Platelets (Bld) [#/Vol] 179 10*3/uL 146 - 337 K/uL [facility] RBC (Bld) [#/Vol] 3.06 10*6/uL Low [facility] WBC (Bld) [#/Vol] 14.38 10*3/uL High 3.73 - 10 .10 K/uL [facility] Hematocrit (Bld) [Volume fraction] 28.3 % Low 39.6-48.8 [facility] Comment on above: Order Comment: To be collected on POD1 Performed By: #### H [facility] #### [facility] (DEFAULT) [address] [address] Hemoglobin (Bld) [Mass/Vol] 9.3 g/dL Low 13.4-16.8 [facility] Comment on above: Order Comment: To be collected on POD1 Performed By: #### H EMOGC #### [facility] (DEFAULT) [address] [address] MCV (RBC) [Entitic vol] 92.5 fL Normal 79.0-94.5 [facility] Comment on above: Order Comment: To be collected on POD1 Performed By: #### H EMOGC #### [facility] (DEFAULT) [address] [address] Mean Cell Hgb 30.4 pg Normal 26.1-33.3 [facility] Comment on above: Order Comment: To be collected on POD1 Performed By: #### H EMOGC #### [facility] (DEFAULT) [address] [address] Mean Cell Hgb Conc 32.9 g/dL Normal 31.9-36.5 [facility] Comment on above: Order Comment: To be collected on POD1 Performed By: #### H EMOGC #### [facility] (DEFAULT) [address] [place] [address] Platelet mean volume (Bld) [Entitic vol] 11.6 fL Normal 8.7-12.3 [facility] Comment on above: Order Comment: To be collected on POD1 Performed By: #### H EMOGC #### [facility] (DEFAULT) [address] [place] [address] Platelets (Bld) [#/Vol] 179 10*3/uL Normal 146-337 [facility] Comment on above: Order Comment: To be collected on POD1 Performed By: #### H EMOGC #### [facility] (DEFAULT) [address] [place] [address] RBC (Bld) [#/Vol] 3.06 10*6/uL Low 4.38-5.83 [facility] Comment on above: Order Comment: To be collected on POD1 Performed By: #### H EMOGC #### [facility] (DEFAULT) [address] [place] [address] RBC Distribution 12.9 % Normal 10.9-14.3 [facility] Comment on above: Order Comment: To be collected on POD1 Performed By: #### H EMOGC #### [facility] (DEFAULT) [address] [place] [address] WBC (Bld) [#/Vol] 14.38 10*3/uL High 3.73-10.10 [facility] Comment on above: Order Comment: To be collected on POD1 Performed By: #### H EMOGC #### [facility] (DEFAULT) [address] [place] [address] CHEM 7 (LYTES,BUN,CREA,GLUC) on 03-24-2024 Anion gap [Moles/Vol] 14 mmol/L 7 - 17 mmol/L [facility] Chloride [Moles/Vol] 111 mmol/L High 98 - 10 8 mmol/L [facility] CO2 [Moles/Vol] 19 mmol/L Low 21 - 31 mmol/L [facility] Creatinine [Mass/Vol] 2.17 mg/dL High 0.70 - 1.30 mg/dL [facility] eGFR, CKD-EPI, Male 35 Low - PINF [facility] Comment on above: Reported eGFR is bas ed on the CKD-EPI 2020 equation using creatinine, age, and sex. Glucose [Mass/Vol] 144 mg/dL High 70 - 99 mg/dL [facility] Interpretation and review of laboratory results Abnormal [facility] Osmolality Calc [Osmolality] 306 High [facility] Potassium [Moles/Vol] 5.5 mmol/L High 3.5 - 5.0 mmol/L [facility] Sodium [Moles/Vol] 138 mmol/L 135 - 145 mmol/L [facility] Urea nitrogen [Mass/Vol] 45 mg/dL High 7 - 25 mg/dL [facility] Urea nitrogen/Creatinine [Mass ratio] 21 mg/mg [facility] Anion gap [Moles/Vol] 14 mmol/L Normal 7-17 [facility] Comment on above: Order Comment: To be collected on POD1 Performed By: #### MINDY Lamar IPB, CHM7 #### [facility] (DEFAULT) [address] [place] [address] Chloride [Moles/Vol] 111 mmol/L High 98-108 [facility] Comment on above: Order Comment: To be collected on POD1 Performed By: #### MINDY Lamar IPB, CHM7 #### [facility] (DEFAULT) [address] [place] [address] CO2 [Moles/Vol] 19 mmol/L Low 21-31 [facility] Comment on above: Order Comment: To be collected on POD1 Performed By: #### MINDY Lamar IPB, CHM7 #### [facility] (DEFAULT) [address] [place] [address] Creatinine [Mass/Vol] 2.17 mg/dL High 0.70-1.30 [facility] Comment on above: Order Comment: To be collected on POD1 Performed By: #### MINDY Lamar IPB, CHM7 #### [facility] (DEFAULT) [address] [place] [address] GFR/1.73 sq M.predicted among non-blacks MDRD (S/P/Bld) [Vol rate/Area] 35 mL/min/{1.73_m2} Low >=60 [facility] Comment on above: Order Comment: To be collected on POD1 Result Comment: Repo rted eGFR is based on the CKD-EPI 2020 equation using creatinine, age, and sex. Performed By: #### MINDY Lamar IPB, CHM7 #### [facility] (DEFAULT) [address] [place] [address] Glucose [Mass/Vol] 144 mg/dL High 70-99 [facility] Comment on above: Order Comment: To be collected on POD1 Performed By: #### MINDY Lamar IPB, CHM7 #### [facility] (DEFAULT) [address] [place] [address] Osmolality [Osmolality] 306 mosm/kg High 278-305 [facility] Comment on above: Order Comment: To be collected on POD1 Performed By: #### Pamela Wayne, MGSeema, IPB, CHM7 #### [facility] (DEFAULT) [address] [place] [address] Potassium [Moles/Vol] 5.5 mmol/L High 3.5-5.0 [facility] Comment on above: Order Comment: To be collected on POD1 Performed By: #### Pamela Wayne, MGO, IPB, CHM7 #### [facility] (DEFAULT) [address] [place] [address] Sodium [Moles/Vol] 138 mmol/L Normal 135-145 [facility] Comment on above: Order Comment: To be collected on POD1 Performed By: #### C Tone, MGO, IPB, CHM7 #### [facility] (DEFAULT) [address] [place] [address] Urea nitrogen [Mass/Vol] 45 mg/dL High 7-25 [facility] Comment on above: Order Comment: To be collected on POD1 Performed By: #### C A, MGO, IPB, CHM7 #### [facility] (DEFAULT) [address] [place] [address] Urea nitrogen/Creatinine [Mass ratio] 21 mg/mg Normal [facility] Comment on above: Order Comment: To be collected on POD1 Performed By: #### Pamela Wayne, MGO, IPB, CHM7 #### [facility] (DEFAULT) [address] [place] [address] CONTINUOUS CARDIAC MONITORIN G STRIPon 03-24-2024 [facility] MAGNESIUMon 03-24-2024 Magnesium [Mass/Vol] 1.9 mg/dL 1.6 - 2 .6 mg/dL [facility] Magnesium [Mass/Vol] 1.9 mg/dL Normal 1.6-2.6 [facility] Comment on above: Order Comment: To be collected on POD1 Performed By: #### C Tone, MGO, IPB, CHM7 #### [facility] (DEFAULT) [address] [place] [address] No Panel Informationon 03-24 Interpretation and review of laboratory results Normal [facility] PHOSPHATE, INORGANICon 03-24 Phosphate [Mass/Vol] 2.7 mg/dL 2.2 - 4 .6 mg/dL [facility] Phosphorous 2.7 mg/dL Normal 2.2-4.6 [facility] Comment on above: Order Comment: To be collected on POD1 Performed By: #### C A, MGO, IPB, CHM7 #### [facility] (DEFAULT) [address] [address] POTASSIUMon 03-24-2024 Interpretation and review of laboratory results Normal [facility] Potassium [Moles/Vol] 5.0 mmol/L 3.5 - 5.0 mmol/L [facility] Potassium [Moles/Vol] 5.0 mmol/L Normal 3.5-5.0 [facility] Comment on above: Order Comment: First draw 6-8 hours after administration of potassium eliminating medications per Hyperkalemia treatment guideline. Performed By: #### K KO ####[facility] (DEFAULT)[address] [place] [address] Potassium [Moles/Vol] 5.0 mmol/L Normal 3.5-5.0 [facility] Comment on above: Order Comment: To be collected on POD1 Performed By: #### MINDY Lamar IPB, CHM7 #### [facility] (DEFAULT) [address] [address] POTASSIUMOrdered By: Liss Brito on 03-24-2024 Interpretation and review of laboratory results Normal [facility] Potassium [Moles/Vol] 5.0 mmol/L 3.5 - 5.0 mmol/L [facility] TACROLIMUS LEVEL, TROUGH ([place] E DRUG LEVEL)on 03-24-2024 Tacrolimus, Trough 8.6 ng/mL Normal [facility] Transplant: 5.0-15.0 Kidney/Pancr eatic Transplant: 0 to 3 months: 8.0-10.0, 3 to 12 months: 6.0-8.0, >12 months: 4.0-6.0 [facility] Comment on above: Order Comment: Pleas e draw at specified interval PRIOR to dose. Do not hold dose to wait for level. Specimens batched twice per day, (M-F) and once per day weekendsMethod performed is a chemiluminescent microparticle immunoasssay on the [employer] i2000.The range is based on experience at [facility] and users should be aware that target concentrations vary widely depending on concomitant therapy, time post-transplant, and desired degree of immunosuppression. Performed By: #### T ACRO ####[facility] (DEFAULT)[address] [place], [place] [id number] US RENAL TRANSPLANT SCANon 0 03-24-2024 US RENAL TRANSPLANT SCAN EXAM: US RENAL TRANSPLANT SCAN, 03/24/2024 14:39 PM CLINICAL INDICATIONS: Increased creatinine, hyperkalemia COMPARISON: CT abdomen and pelvis from December 18, 2018 TECHNIQUE: Real-time mcgowan scale ultrasound images of the renal transplant in the right lower quadrant were obtained in longitudinal and transverse orientations utilizing a curved array transducer. Color and duplex doppler imaging was used to evaluate vascular flow. FINDINGS: Transplant Kidney: The transplanted kidney is identified in the right lower quadrant. It measures 14.0 cm in length. There is severe hydronephrosis. No peritransplant fluid collection. Doppler: Duplex imaging demonstrates normal arterial waveforms in the renal artery. Peak systolic velocity (PSV) in the renal artery: 63.7 cm/s Acceleration time (AT): 73.3 ms Peak systolic velocity (PSV) in the external iliac artery: 184 cm/s Ratio of PSV(renal) to PSV(iliac): 0.3 Intrarenal arterial resistive indices as follows: Upper pole: 0.74 Interpolar: 0.64 Lower pole: 0.65 Bladder: Limited imaging of the urinary bladder is distended with volume of 362 cc. Patient unable to void. Abdomen: No ascites in the visualized images. IMPRESSION: 1. Severe hydronephrosis of the transplant kidney. 2. Resistivity indices are normal. I personally viewed and interpreted these images and I have reviewed and approved this report. Normal [facility] US for transplanted kidney l imitedon 03-24-2024 IMPRESSION: 1. Severe hydronephrosis of the transplant kidney. 2. Resistivity indices are normal. I personally viewed and interpreted these images and I have reviewed and approved this report. OLOGY EXAM: US RENAL TRANSPLANT SCAN, 03/24/2024 14:39 PM CLINICAL INDICATIONS: Increased creatinine, hyperkalemia COMPARISON: CT abdomen and pelvis from December 18, 2018 TECHNIQUE: Real-time mcgowan scale ultrasound images of the renal transplant in the right lower quadrant were obtained in longitudinal and transverse orientations utilizing a curved array transducer. Color and duplex doppler imaging was used to evaluate vascular flow. FINDINGS: Transplant Kidney: The transplanted kidney is identified in the right lower quadrant. It measures 14.0 cm in length. There is severe hydronephrosis. No peritransplant fluid collection. Doppler: Duplex imaging demonstrates normal arterial waveforms in the renal artery. Peak systolic velocity (PSV) in the renal artery: 63.7 cm/s Acceleration time (AT): 73.3 ms Peak systolic velocity (PSV) in the external iliac artery: 184 cm/s Ratio of PSV(renal) to PSV(iliac): 0.3 Intrarenal arterial resistive indices as follows: Upper pole: 0.74 Interpolar: 0.64 Lower pole: 0.65 Bladder: Limited imaging of the urinary bladder is distended with volume of 362 cc. Patient unable to void. Abdomen: No ascites in the visualized images. RADIOLOGY Isabelle Escobar MD - 03/24/2024 EXAM: US RENAL TRANSPLANT SCAN, 03/24/2024 14:39 PM CLINICAL INDICATIONS: Increased creatinine, hyperkalemia COMPARISON: CT abdomen and pelvis from December 18, 2018 TECHNIQUE: Real-time mcgowan scale ultrasound images of the renal transplant in the right lower quadrant were obtained in longitudinal and transverse orientations utilizing a curved array transducer. Color and duplex doppler imaging was used to evaluate vascular flow. FINDINGS: Transplant Kidney: The transplanted kidney is identified in the right lower quadrant. It measures 14.0 cm in length. There is severe hydronephrosis. No peritransplant fluid collection. Doppler: Duplex imaging demonstrates normal arterial waveforms in the renal artery. Peak systolic velocity (PSV) in the renal artery: 63.7 cm/s Acceleration time (AT): 73.3 ms Peak systolic velocity (PSV) in the external iliac artery: 184 cm/s Ratio of PSV(renal) to PSV(iliac): 0.3 Intrarenal arterial resistive indices as follows: Upper pole: 0.74 Interpolar: 0.64 Lower pole: 0.65 Bladder: Limited imaging of the urinary bladder is distended with volume of 362 cc. Patient unable to void. Abdomen: No ascites in the visualized images. IMPRESSION IMPRESSION: 1. Severe hydronephrosis of the transplant kidney. 2. Resistivity indices are normal. I personally viewed and interpreted these images and I have reviewed and approved this report. [facility] Radiology Study observation (narrative) [facility] US for transplanted kidney l imitedOrdered By: Isabelle Escobar on 03-24-2024 [facility] Work Phone: BASIC METABOLIC PANELon 03-02 Anion gap [Moles/Vol] 12 mmol/L 7 - 17 mmol/L [facility] Calcium [Mass/Vol] 9.3 mg/dL 8.6 - 10. 5 mg/dL [facility] Chloride [Moles/Vol] 111 mmol/L High 98 - 10 8 mmol/L [facility] CO2 [Moles/Vol] 20 mmol/L Low 21 - 31 mmol/L [facility] Creatinine [Mass/Vol] 2.08 mg/dL High 0.70 - 1.30 mg/dL [facility] eGFR, CKD-EPI, Male 37 Low - PINF [facility] Comment on above: Reported eGFR is bas ed on the CKD-EPI 2020 equation using creatinine, age, and sex. Glucose [Mass/Vol] 99 mg/dL 70 - 99 mg/dL [facility] Interpretation and review of laboratory results Abnormal [facility] Osmolality Calc [O[facility]olality] [facility] Potassium [Moles/Vol] 5.1 mmol/L High 3.5 - 5.0 mmol/L [facility] Sodium [Moles/Vol] 138 mmol/L 135 - 145 mmol/L [facility] Urea nitrogen [Mass/Vol] 47 mg/dL High 7 - 25 mg/dL [facility] Urea nitrogen/Creatinine [Mass ratio] 23 mg[facility] Anion gap [Moles/Vol] 12 mmol/L Normal 7-17 [facility] Comment on above: Performed By: #### U PCR #### [facility] (DEFAULT) [address] [place] [address] Calcium [Mass/Vol] 9.3 mg/dL Normal 8.6-10.5 [facility] Comment on above: Performed By: #### U PCR #### [facility] (DEFAULT) [address] [address] Chloride [Moles/Vol] 111 mmol/L High 98-108 [facility] Comment on above: Performed By: #### U PCR #### [facility] (DEFAULT) [address] [address] CO2 [Moles/Vol] 20 mmol/L Low 21-31 [facility] Comment on above: Performed By: #### U PCR #### [facility] (DEFAULT) [address] [address] Creatinine [Mass/Vol] 2.08 mg/dL High 0.70-1.30 [facility] Comment on above: Performed By: #### U PCR #### [facility] (DEFAULT) [address] [address] GFR/1.73 sq M.predicted among non-blacks MDRD (S/P/Bld) [Vol rate/Area] 37 mL/min/{1.73_m2} Low >=60 [facility] Comment on above: Result Comment: Repo rted eGFR is based on the CKD-EPI 2020 equation using creatinine, age, and sex. Performed By: #### U PCR #### [facility] (DEFAULT) [address] [address] Glucose [Mass/Vol] 99 mg/dL Normal 70-99 [facility] Comment on above: Performed By: #### U PCR #### [facility] (DEFAULT) [address] [place] [address] Osmolality [Osmolality] 303 mosm/kg Normal 278-305 [facility] Comment on above: Performed By: #### U PCR #### [facility] (DEFAULT) [address] [place] [address] Potassium [Moles/Vol] 5.1 mmol/L High 3.5-5.0 [facility] Comment on above: Performed By: #### U PCR #### [facility] (DEFAULT) [address] [place] [address] Sodium [Moles/Vol] 138 mmol/L Normal 135-145 [facility] Comment on above: Performed By: #### U PCR #### [facility] (DEFAULT) [address] [place] [address] Urea nitrogen [Mass/Vol] 47 mg/dL High 7-25 [facility] Comment on above: Performed By: #### U PCR #### [facility] (DEFAULT) [address] [place] [address] Urea nitrogen/Creatinine [Mass ratio] 23 mg/mg Normal [facility] Comment on above: Performed By: #### U PCR #### [facility] (DEFAULT) [address] [place] [address] CONTINUOUS CARDIAC MONITORIN G STRIPon 03-23-2024 [facility] GLUCOSE POCon 03-23-2024 Glucose [Mass/Vol] 104 mg/dL High 70 - 99 mg/dL [facility] Interpretation and review of laboratory results Abnormal [facility] POC Sample Type CAPBL [facility] Test performed at address of the patient encounter. [facility] No Panel InformationOrdered By: Unassigned Pacs on 03-23-2024 [facility] Work Phone: Basophils Auto (Bld) [#/Vol] on 02-27-2024 Basophils (Bld) [#/Vol] 0.1 10 3/uL 0.0-0.1 [facility] Basophils/100 WBC Auto (Bld) on 02-27-2024 Basophils/100 WBC (Bld) 0.6 % 0.2-2.0 [facility] Cholesterol in LDL Calc [Mas s/Vol]on 02-27-2024 Cholesterol in LDL [Mass/Vol] 87.8 mg/dL [facility] Comment on above: <100 mg/dl [id number] 0-129 mg/dl NEAR OR ABOVE [id number] mg/dl BORDERLINE [id number] mg/dl HIGH>190 mg/dl VERY HIGH Cholesterol in VLDL Calc [Ma ss/Vol]on 02-27-2024 Cholesterol in VLDL [Mass/Vol] 25.2 mg/dL [facility] Eosinophils/100 WBC Auto (Bl d)on 02-27-2024 Eosinophils/100 WBC (Bld) 1.5 % 0.9-7.0 [facility] Erythrocyte distribution wid th Auto (RBC) [Ratio]on 02-27-2024 Erythrocyte distribution width (RBC) [Ratio] 12.1 % 11.0-15.0 [facility] Estimated glomerular filtrat ion rate (GFR) non- Americanon 02-27-2024 GFR/1.73 sq M.predicted among non-blacks MDRD (S/P/Bld) [Vol rate/Area] 24 mL/min/{1.73_m2} Low >=60 [facility] Globulin Calc (S) [Mass/Vol] on 02-27-2024 Globulin (S) [Mass/Vol] 3.5 g/dL [facility] Hematocrit Auto (Bld) [Volum e fraction]on 02-27-2024 Hematocrit (Bld) [Volume fraction] 33.0 % Low 42.0-54.0 [facility] Hemoglobin [Mass/volume] in Bloodon 02-27-2024 Hemoglobin (Bld) [Mass/Vol] 10.9 g/dL Low 14.0-18.0 [facility] Laboratory - Chemistry and C hemistry - challengeon 02-27-2024 Albumin [Mass/Vol] 4.1 g/dL 3.4-5.0 [facility] ALP [Catalytic activity/Vol] 81 U/L 46-116 [facility] ALT [Catalytic activity/Vol] 21 U/L 16-63 [facility] AST [Catalytic activity/Vol] 15 U/L 15-37 [facility] Bilirubin [Mass/Vol] 0.3 mg/dL 0.2-1.0 [facility] Calcium [Mass/Vol] 9.6 mg/dL 8.5-10.1 [facility] Chloride [Moles/Vol] 103 mmol/L 98-107 [facility] Cholesterol [Mass/Vol] 160 mg/dL <=200 [facility] Cholesterol in HDL [Mass/Vol] 47 mg/dL 40-60 [facility] Comment on above: > or =60 mg/dl - LOW CARDIOVASCULAR RISK<40 mg/dl - HIGH CARDIOVASCULAR RISK CO2 [Moles/Vol] 24.1 mmol/L 21.0-32.0 [facility] Creatinine [Mass/Vol] 2.77 mg/dL High 0.70-1.30 [facility] GFR/1.73 sq M.predicted MDRD (S/P/Bld) [Vol rate/Area] 29 mL/min/{1.73_m2} Low >=60 [facility] Glucose [Mass/Vol] 93 mg/dL 74-106 [facility] Potassium [Moles/Vol] 4.7 mmol/L 3.5-5.1 [facility] Protein [Mass/Vol] 7.6 g/dL 6.4-8.2 [facility] Sodium [Moles/Vol] 138 mmol/L 136-145 [facility] Triglyceride [Mass/Vol] 126 mg/dL <=150 [facility] Urea nitrogen [Mass/Vol] 55.0 mg/dL High 7.0-18.0 [facility] Urea nitrogen/Creatinine [Mass ratio] 19.9 mg/mg [facility] Bilirubin Ql (U) Negative NEGATIVE [facility] Glucose (U) [Mass/Vol] Negative NEGATIVE [facility] Ketones Ql (U) Negative NEGATIVE [facility] pH (U) 6.0 [pH] 5.0-9.0 [facility] Specific gravity (U) [Rel density] 1.015 1.005-1.025 [facility] Urobilinogen Qn (U) 0.2 {Brodie'U}/dL 0.2-1.0 [facility] Laboratory - Hematology and Cell countson 02-27-2024 Immature granulocytes/100 WBC (Bld) 0.2 % 0.0-0.5 [facility] - Specimen inform ationon 02-27-2024 Appearance (U) CLEAR CLEAR [facility] Color (U) LT. YELLOW YELLOW [facility] Laboratory - Urinalysison Leukocyte esterase Test strip Ql (U) Negative NEGATIVE [facility] Nitrite Ql (U) Negative NEGATIVE [facility] Protein Ql (U) Negative NEG/TRACE [facility] Leukocytes [#/volume] correc july for nucleated erythrocytes in Blood by Automated counon 02-27-2024 WBC corrected for nucl RBC Auto (Bld) [#/Vol] 8.2 10 3/uL 4.0-11.0 [facility] Lymphocytes Auto (Bld) [#/Vo l]on 02-27-2024 Lymphocytes (Bld) [#/Vol] 1.9 10 3/uL 1.2-3.8 [facility] Lymphocytes/100 WBC Auto (Bl d)on 02-27-2024 Lymphocytes/100 WBC (Bld) 22.8 % 20.5-60.0 [facility] MCH Auto (RBC) [Entitic mass ]on 02-27-2024 MCH (RBC) [Entitic mass] 29.8 pg 25.9-34.0 [facility] MCHC Auto (RBC) [Mass/Vol]on 02-27-2024 MCHC (RBC) [Mass/Vol] 33.0 g/dL 29.9-35.2 [facility] MCV Auto (RBC) [Entitic vol] on 02-27-2024 MCV (RBC) [Entitic vol] 90.2 fL 80.0-94.0 [facility] Monocytes Auto (Bld) [#/Vol] on 02-27-2024 Monocytes (Bld) [#/Vol] 0.5 10 3/uL 0.3-0.8 [facility] Monocytes/100 WBC Auto (Bld) on 02-27-2024 Monocytes/100 WBC (Bld) 5.5 % 1.7-12.0 [facility] Neutrophils Auto (Bld) [#/Vo l]on 02-27-2024 Neutrophils (Bld) [#/Vol] 5.7 10 3/uL 1.4-6.5 [facility] Neutrophils/100 WBC Auto (Bl d)on 02-27-2024 Neutrophils/100 WBC (Bld) 69.4 % 43.0-75.0 [facility] No Panel Informationon 02-26 Eosinophils # (Auto) 0.1 10 3/uL 0.0-0.7 [facility] Immature Granulocyte # (Auto) 0.02 10 3/uL 0.00-0.03 [facility] Prostate Specific Antigen Screen 1.95 ng/mL <=4.00 [facility] Urine Microscopic Review NO [facility] Urine Occult Blood Negative NEGATIVE [facility] Platelet mean volume Auto (B ld) [Entitic vol]on 02-27-2024 Platelet mean volume (Bld) [Entitic vol] 11.1 fL 9.5-13.5 [facility] Platelets Auto (Bld) [#/Vol] on 02-27-2024 Platelets (Bld) [#/Vol] 203 10 3/uL 150-450 [facility] RBC Auto (Bld) [#/Vol]on RBC (Bld) [#/Vol] 3.66 10 6/uL Low 4.70-6.10 [facility] Serum or plasma albumin/glob ulin mass ratioon 02-27-2024 Albumin/Globulin [Mass ratio] 1.2 {ratio} [facility] Serum or plasma anion gap de terminationon 02-27-2024 Anion gap [Moles/Vol] 15.6 mmol/L [facility] Serum or plasma total choles terol/high density lipoprotein (HDL) cholesterol mass lotus 02-27-2024 Cholesterol.total/Chol esterol in HDL [Mass ratio] 3.4 {ratio} [facility] Comment on above: 3.3 - 4.4 LOW RISK4. 4 - 7.1 AVERAGE RISK7.1 - 11.0 MODERATE RISK>11.0 HIGH RISK CBC AND ELECTRONIC DIFFon Basophils (Bld) [#/Vol] 0.05 10*3/uL 0.00 - 0.09 K/uL [facility] Basophils/100 WBC (Bld) 0.5 % [facility] Differential cell count method Nom (Bld) Electronic Differential [facility] Eosinophils (Bld) [#/Vol] 0.16 10*3/uL 0.00 - 0.48 K/uL [facility] Eosinophils/100 WBC (Bld) 1.5 % [facility] Erythrocyte distribution width (RBC) [Ratio] 12.2 % 10.9 - 14.3 % [facility] Hematocrit (Bld) [Volume fraction] 34.6 % Low 39.6 - 48.8 % [facility] Hemoglobin (Bld) [Mass/Vol] 11.2 g/dL Low 13.4 - 16.8 g/dL [facility] Immature granulocytes (Bld) [#/Vol] 0.04 10*3/uL NINF - 0.07 K/uL [facility] Immature granulocytes/100 WBC (Bld) 0.4 % [facility] Interpretation and review of laboratory results Abnormal [facility] Lymphocytes (Bld) [#/Vol] 2.14 10*3/uL 0.83 - 3.57 K/uL [facility] Lymphocytes/100 WBC (Bld) 20.3 % [facility] MCH (RBC) [Entitic mass] 29.3 pg 26.1 - 33.3 pg [facility] MCHC (RBC) [Mass/Vol] 32.4 g/dL 31.9 - 36.5 g/dL [facility] MCV (RBC) [Entitic vol] 90.6 fL 79.0 - 94.5 fL [facility] Monocytes (Bld) [#/Vol] 0.50 10*3/uL 0.24 - 0.93 K/uL [facility] Monocytes/100 WBC (Bld) 4.7 % [facility] Neutrophils (Bld) [#/Vol] 7.65 10*3/uL High 1.57 - 6.19 K/uL [facility] Nucleated RBC/100 WBC (Bld) [Ratio] 0.0 % NINF [facility] Platelet mean volume (Bld) [Entitic vol] 11.1 fL 8.7 - 12.3 fL [facility] Platelets (Bld) [#/Vol] 218 10*3/uL 146 - 337 K/uL [facility] RBC (Bld) [#/Vol] 3.82 10*6/uL Low [facility] Segmented neutrophils/100 WBC (Bld) 72.6 % [facility] WBC (Bld) [#/Vol] 10.54 10*3/uL High 3.73 - 10 .10 K/uL [facility] Basophils (Bld) [#/Vol] 0.05 10*3/uL Normal 0.00-0.09 [facility] Comment on above: Performed By: #### S URGP #### [facility] (DEFAULT) [address] [address] Basophils/100 WBC (Bld) 0.5 % Normal [facility] Comment on above: Performed By: #### S URGP #### [facility] (DEFAULT) [address] [address] DIFF STATUS Electronic Differential Normal [facility] Comment on above: Performed By: #### S URGP #### [facility] (DEFAULT) [address] [address] Eosinophils (Bld) [#/Vol] 0.16 10*3/uL Normal 0.00-0.48 [facility] Comment on above: Performed By: #### S URGP #### [facility] (DEFAULT) [address] [place] [address] Eosinophils/100 WBC (Bld) 1.5 % Normal [facility] Comment on above: Performed By: #### S URGP #### [facility] (DEFAULT) [address] [address] Hematocrit (Bld) [Volume fraction] 34.6 % Low 39.6-48.8 [facility] Comment on above: Performed By: #### S URGP #### [facility] (DEFAULT) [address] [address] Hemoglobin (Bld) [Mass/Vol] 11.2 g/dL Low 13.4-16.8 [facility] Comment on above: Performed By: #### S URGP #### [facility] (DEFAULT) [address] [address] Immature Grans % 0.4 % Normal [facility] Comment on above: Performed By: #### S URGP #### [facility] (DEFAULT) [address] [address] Immature Grans Absolute 0.04 K/uL Normal <=0.07 [facility] Comment on above: Performed By: #### S URGP #### [facility] (DEFAULT) [address] [place] [address] Lymphocytes (Bld) [#/Vol] 2.14 10*3/uL Normal 0.83-3.57 [facility] Comment on above: Performed By: #### S URGP #### [facility] (DEFAULT) [address] [address] Lymphocytes/100 WBC (Bld) 20.3 % Normal [facility] Comment on above: Performed By: #### S URGP #### [facility] (DEFAULT) [address] [address] MCV (RBC) [Entitic vol] 90.6 fL Normal 79.0-94.5 [facility] Comment on above: Performed By: #### S URGP #### [facility] (DEFAULT) [address] [address] Mean Cell Hgb 29.3 pg Normal 26.1-33.3 [facility] Comment on above: Performed By: #### S URGP #### [facility] (DEFAULT) [address] [address] Mean Cell Hgb Conc 32.4 g/dL Normal 31.9-36.5 [facility] Comment on above: Performed By: #### S URGP #### [facility] (DEFAULT) [address] [address] Monocytes (Bld) [#/Vol] 0.50 10*3/uL Normal 0.24-0.93 [facility] Comment on above: Performed By: #### S URGP #### [facility] (DEFAULT) [address] [address] Monocytes/100 WBC (Bld) 4.7 % Normal [facility] Comment on above: Performed By: #### S URGP #### [facility] (DEFAULT) [address] [address] Nucleated RBC 0.0 /100 WBC Normal <=0.2 [facility] Comment on above: Performed By: #### S URGP #### [facility] (DEFAULT) [address] [address] Platelet mean volume (Bld) [Entitic vol] 11.1 fL Normal 8.7-12.3 [facility] Comment on above: Performed By: #### S URGP #### [facility] (DEFAULT) [address] [address] Platelets (Bld) [#/Vol] 218 10*3/uL Normal 146-337 [facility] Comment on above: Performed By: #### S URGP #### [facility] (DEFAULT) [address] [address] RBC (Bld) [#/Vol] 3.82 10*6/uL Low 4.38-5.83 [facility] Comment on above: Performed By: #### S URGP #### [facility] (DEFAULT) [address] [place] [address] RBC Distribution 12.2 % Normal 10.9-14.3 [facility] Comment on above: Performed By: #### S URGP #### [facility] (DEFAULT) [address] [place] [address] Segs + Bands Auto 72.6 % Normal [facility] Comment on above: Performed By: #### S URGP #### [facility] (DEFAULT) [address] [place] [address] Segs + Bands,Absolute Auto 7.65 K/uL High 1.57-6.19 [facility] Comment on above: Performed By: #### S URGP #### [facility] (DEFAULT) [address] [place] [address] WBC (Bld) [#/Vol] 10.54 10*3/uL High 3.73-10.10 [facility] Comment on above: Performed By: #### S URGP #### [facility] (DEFAULT) [address] [place] [address] COMPREHENSIVE METABOLIC PANE Abel 02-25-2024 Albumin [Mass/Vol] 4.6 g/dL 3.5 - 5.0 g/dL [facility] ALP [Catalytic activity/Vol] 71 U/L 32 - 126 U/L [facility] ALT [Catalytic activity/Vol] 13 U/L 10 - 52 U/L [facility] Anion gap [Moles/Vol] 12 mmol/L 7 - 17 mmol/L [facility] AST [Catalytic activity/Vol] 15 U/L 10 - 39 U/L [facility] Bilirubin [Mass/Vol] 0.4 mg/dL NINF - 1.5 mg/dL [facility] Calcium [Mass/Vol] 10.0 mg/dL 8.6 - 10. 5 mg/dL [facility] Chloride [Moles/Vol] 102 mmol/L 98 - 10 8 mmol/L [facility] CO2 [Moles/Vol] 26 mmol/L 21 - 31 mmol/L [facility] Creatinine [Mass/Vol] 2.65 mg/dL High 0.70 - 1.30 mg/dL [facility] eGFR, CKD-EPI, Male 29 Low - PINF [facility] Comment on above: Reported eGFR is bas ed on the CKD-EPI 2020 equation using creatinine, age, and sex. Glucose [Mass/Vol] 95 mg/dL 70 - 99 mg/dL [facility] Interpretation and review of laboratory results Abnormal [facility] Osmolality Calc [Osmolality] 297 [facility] Potassium [Moles/Vol] 5.0 mmol/L 3.5 - 5.0 mmol/L [facility] Protein [Mass/Vol] 7.8 g/dL 6.4 - 8.3 g/dL [facility] Sodium [Moles/Vol] 135 mmol/L 135 - 145 mmol/L [facility] Urea nitrogen [Mass/Vol] 45 mg/dL High 7 - 25 mg/dL [facility] Urea nitrogen/Creatinine [Mass ratio] 17 mg/mg [facility] Albumin [Mass/Vol] 4.6 g/dL Normal 3.5-5.0 [facility] Comment on above: Performed By: #### C MPN ####[facility] (DEFAULT)[address] [place] [address] ALP [Catalytic activity/Vol] 71 U/L Normal 32-126 [facility] Comment on above: Performed By: #### C MPN ####[facility] (DEFAULT)[address] [place] [address] ALT [Catalytic activity/Vol] 13 U/L Normal 10-52 [facility] Comment on above: Performed By: #### C MPN ####[facility] (DEFAULT)[address] [place] [address] Anion gap [Moles/Vol] 12 mmol/L Normal 7-17 [facility] Comment on above: Performed By: #### C MPN ####[facility] (DEFAULT)[address] [place] [address] AST [Catalytic activity/Vol] 15 U/L Normal 10-39 [facility] Comment on above: Performed By: #### C MPN ####[facility] (DEFAULT)[address] [place] [address] Bilirubin [Mass/Vol] 0.4 mg/dL Normal <1.5 [facility] Comment on above: Performed By: #### C MPN ####[facility] (DEFAULT)[address] [place] [address] Calcium [Mass/Vol] 10.0 mg/dL Normal 8.6-10.5 [facility] Comment on above: Performed By: #### C MPN ####[facility] (DEFAULT)[address] [facility] [place] [address] Chloride [Moles/Vol] 102 mmol/L Normal 98-108 [facility] Comment on above: Performed By: #### C MPN ####[facility] (DEFAULT)[address] [place] [address] CO2 [Moles/Vol] 26 mmol/L Normal 21-31 [facility] Comment on above: Performed By: #### C MPN ####[facility] (DEFAULT)[address] [facility] [place] [address] Creatinine [Mass/Vol] 2.65 mg/dL High 0.70-1.30 [facility] Comment on above: Performed By: #### C MPN ####[facility] (DEFAULT)[address] [place] [address] GFR/1.73 sq M.predicted among non-blacks MDRD (S/P/Bld) [Vol rate/Area] 27 mL/min/{1.73_m2} Low >=60 [facility] Comment on above: Result Comment: Repo rted eGFR is based on the CKD-EPI 2020 equation using creatinine, age, and sex. Performed By: #### C MPN ####[facility] (DEFAULT)[address] [place] [address] Glucose [Mass/Vol] 95 mg/dL Normal 70-99 [facility] Comment on above: Performed By: #### C MPN ####[facility] (DEFAULT)[address] [place] [address] Osmolality [Osmolality] 297 mosm/kg Normal 278-305 [facility] Comment on above: Performed By: #### C MPN ####[facility] (DEFAULT)[address] [place] [address] Potassium [Moles/Vol] 5.0 mmol/L Normal 3.5-5.0 [facility] Comment on above: Performed By: #### C MPN ####[facility] (DEFAULT)[address] [place] [address] Protein [Mass/Vol] 7.8 g/dL Normal 6.4-8.3 [facility] Comment on above: Performed By: #### C MPN ####[facility] (DEFAULT)[address] [place] [address] Sodium [Moles/Vol] 135 mmol/L Normal 135-145 [facility] Comment on above: Performed By: #### C MPN ####[facility] (DEFAULT)[address] [place] [address] Urea nitrogen [Mass/Vol] 45 mg/dL High 7-25 [facility] Comment on above: Performed By: #### C MPN ####[facility] (DEFAULT)[address] [place] [address] Urea nitrogen/Creatinine [Mass ratio] 17 mg/mg Normal [facility] Comment on above: Performed By: #### C MPN ####[facility] (DEFAULT)[address] [place] [address] TYPE AND SCREEN - PREADMISSI ONon 02-25-2024 ABO/RH(D) TYPE Positive [facility] ABO/RH(D) TYPE Positive Normal [facility] Comment on above: Performed By: #### X MPO #### [facility] (DEFAULT) [address] [place] [address] Outdate Specimen 03/25/2024 08:56 Normal [facility] Comment on above: Performed By: #### X MPO #### [facility] (DEFAULT) [address] [place] [address] EAR CERUMEN REMOVALon 2023 Rodrigo Saravia MD 12/04/2023 11:45 AM EAR CERUMEN REMOVAL Date/Time: 12/04/2023 11:00 AM Performed by: Rodrigo Saravia MD Authorized by: Rodrigo Saravia MD Procedure: Visualization: otoscopy Impaction noted: yes Location details: Right ear Procedure type: curette Patient tolerance: Tolerated well, no immediate complications [facility] Radiology Study observation (narrative) [facility] H. PYLORI STOOL AGon 024 H. PYLORI STOOL AG Negative [facility] Comment on above: Result Comment: Refe rence range: Negative PERFORMED AT [facility] Performed By: #### L HPYG #### Testing performed at [facility] [address] [place] [address] [place] [address] FAX REQUESTon 11-21-2023 FAX TO [phone] and [phone] [facility] Comment on above: Performed By: #### L HPYG #### Testing performed at [facility] [address] [facility] [place] [address] [place] [address] FAX REQUESTon 11-20-2023 FAX TO [phone] [facility] HEMOGLOBIN A1Con 11-20-2023 Glucose [Mass/Vol] 114 mg/dL Normal [facility] HbA1c (Bld) [Mass fraction] 5.6 % Normal 0-6 [facility] Comment on above: Result Comment: NORMAL <5.7% PREDIABETES 5.7-6.4% DIABETES 6.5% OR HIGHER PTH INTACTOrdered By: Kaia Ni on 10-01-2023 Interpretation and review of laboratory results Abnormal [facility] Parathyrin.intact [Mass/Vol] 76.2 pg/mL High 14.0 - 72.0 pg/mL [facility] CBC,PLATELETSon 09-30-2023 Erythrocyte distribution width (RBC) [Ratio] 12.7 % 10.9 - 14.3 % [facility] Hematocrit (Bld) [Volume fraction] 37.8 % Low 39.6 - 48.8 % [facility] Hemoglobin (Bld) [Mass/Vol] 12.2 g/dL Low 13.4 - 16.8 g/dL [facility] Interpretation and review of laboratory results Abnormal [facility] MCH (RBC) [Entitic mass] 28.7 pg 26.1 - 33.3 pg [facility] MCHC (RBC) [Mass/Vol] 32.3 g/dL 31.9 - 36.5 g/dL [facility] MCV (RBC) [Entitic vol] 88.9 fL 79.0 - 94.5 fL [facility] Platelet mean volume (Bld) [Entitic vol] 11.2 fL 8.7 - 12.3 fL [facility] Platelets (Bld) [#/Vol] 191 10*3/uL 146 - 337 K/uL [facility] RBC (Bld) [#/Vol] 4.25 10*6/uL Low [facility] WBC (Bld) [#/Vol] 8.38 10*3/uL 3.73 - 10. 10 K/uL [facility] Hematocrit (Bld) [Volume fraction] 37.8 % Low 39.6-48.8 [facility] Comment on above: Order Comment: To be collected on POD1 Performed By: #### C A, MGO, IPB, CHM7 #### [facility] (DEFAULT) [address] [place] [address] Hemoglobin (Bld) [Mass/Vol] 12.2 g/dL Low 13.4-16.8 [facility] Comment on above: Order Comment: To be collected on POD1 Performed By: #### C A, MGO, IPB, CHM7 #### [facility] (DEFAULT) [address] [place] [address] MCV (RBC) [Entitic vol] 88.9 fL Normal 79.0-94.5 [facility] Comment on above: Order Comment: To be collected on POD1 Performed By: #### Pamela A, MGO, IPB, CHM7 #### [facility] (DEFAULT) [address] [place] [address] Mean Cell Hgb 28.7 pg Normal 26.1-33.3 [facility] Comment on above: Order Comment: To be collected on POD1 Performed By: #### Pamela A, MGO, IPB, CHM7 #### [facility] (DEFAULT) [address] [place] [address] Mean Cell Hgb Conc 32.3 g/dL Normal 31.9-36.5 [facility] Comment on above: Order Comment: To be collected on POD1 Performed By: #### C A, MGO, IPB, CHM7 #### [facility] (DEFAULT) [address] [place] [address] Platelet mean volume (Bld) [Entitic vol] 11.2 fL Normal 8.7-12.3 [facility] Comment on above: Order Comment: To be collected on POD1 Performed By: #### C A, MGO, IPB, CHM7 #### [facility] (DEFAULT) [address] [place] [address] Platelets (Bld) [#/Vol] 191 10*3/uL Normal 146-337 [facility] Comment on above: Order Comment: To be collected on POD1 Performed By: #### Pamela Wayne, MGO, IPB, CHM7 #### [facility] (DEFAULT) [address] [place] [address] RBC (Bld) [#/Vol] 4.25 10*6/uL Low 4.38-5.83 [facility] Comment on above: Order Comment: To be collected on POD1 Performed By: #### Pamela Wayne, MGO, IPB, CHM7 #### [facility] (DEFAULT) [address] [place] [address] RBC Distribution 12.7 % Normal 10.9-14.3 [facility] Comment on above: Order Comment: To be collected on POD1 Performed By: #### Pamela Wayne, MGO, IPB, CHM7 #### [facility] (DEFAULT) [address] [place] [address] WBC (Bld) [#/Vol] 8.38 10*3/uL Normal 3.73-10.10 [facility] Comment on above: Order Comment: To be collected on POD1 Performed By: #### Pamela A, MGO, IPB, CHM7 #### [facility] (DEFAULT) [address] [place] [address] COMPREHENSIVE METABOLIC PANE Abel 09-30-2023 Albumin [Mass/Vol] 4.4 g/dL 3.5 - 5.0 g/dL [facility] ALP [Catalytic activity/Vol] 60 U/L 32 - 126 U/L [facility] ALT [Catalytic activity/Vol] 11 U/L 10 - 52 U/L [facility] Anion gap [Moles/Vol] 16 mmol/L 7 - 17 [facility] AST [Catalytic activity/Vol] 12 U/L 10 - 39 U/L [facility] Bilirubin [Mass/Vol] 0.3 mg/dL NINF - 1.5 mg/dL [facility] Calcium [Mass/Vol] 9.7 mg/dL 8.6 - 10. 5 mg/dL [facility] Chloride [Moles/Vol] 105 mmol/L 98 - 10 8 mmol/L [facility] CO2 [Moles/Vol] 25 mmol/L 21 - 31 mmol/L [facility] Creatinine [Mass/Vol] 1.72 mg/dL High 0.70 - 1.30 mg/dL [facility] eGFR, CKD-EPI, Male 46 Low - PINF [facility] Comment on above: Reported eGFR is bas ed on the CKD-EPI 2020 equation using creatinine, age, and sex. Glucose [Mass/Vol] 78 mg/dL 70 - 99 mg/dL [facility] Interpretation and review of laboratory results Abnormal [facility] Osmolality Calc [Osmolality] 302 [facility] Potassium [Moles/Vol] 5.0 mmol/L 3.5 - 5.0 mmol/L [facility] Protein [Mass/Vol] 6.9 g/dL 6.4 - 8.3 g/dL [facility] Sodium [Moles/Vol] 141 mmol/L 135 - 145 mmol/L [facility] Urea nitrogen [Mass/Vol] 31 mg/dL High 7 - 25 mg/dL [facility] Urea nitrogen/Creatinine [Mass ratio] 18 mg/mg [facility] Albumin [Mass/Vol] 4.4 g/dL Normal 3.5-5.0 [facility] Comment on above: Order Comment: To be collected on POD1 Performed By: #### H [facility] #### [facility] (DEFAULT) [address] [place] [address] ALP [Catalytic activity/Vol] 60 U/L Normal 32-126 [facility] Comment on above: Order Comment: To be collected on POD1 Performed By: #### H [facility] #### [facility] (DEFAULT) [address] [place] [address] ALT [Catalytic activity/Vol] 11 U/L Normal 10-52 [facility] Comment on above: Order Comment: To be collected on POD1 Performed By: #### H EMOGC #### [facility] (DEFAULT) [address] [place] [address] Anion gap [Moles/Vol] 16 mmol/L Normal 7-17 [facility] [facility] Comment on above: Order Comment: To be collected on POD1 Performed By: #### H EMOGC #### [facility] (DEFAULT) [address] [place] [address] 29475 AST [Catalytic activity/Vol] 12 U/L Normal 10-39 [facility] Comment on above: Order Comment: To be collected on POD1 Performed By: #### H EMOGC #### [facility] (DEFAULT) [address] [place] [address] 77486 Bilirubin [Mass/Vol] 0.3 mg/dL Normal <1.5 [facility] Comment on above: Order Comment: To be collected on POD1 Performed By: #### H EMOGC #### [facility] (DEFAULT) [address] [place] [address] 23224 Calcium [Mass/Vol] 9.7 mg/dL Normal 8.6-10.5 [facility] Comment on above: Order Comment: To be collected on POD1 Performed By: #### H EMOGC #### [facility] (DEFAULT) [address] [place] [address] 47534 Chloride [Moles/Vol] 105 mmol/L Normal 98-108 [facility] Comment on above: Order Comment: To be collected on POD1 Performed By: #### H EMOGC #### [facility] (DEFAULT) [address] [place] [address] 85417 CO2 [Moles/Vol] 25 mmol/L Normal 21-31 [facility] Comment on above: Order Comment: To be collected on POD1 Performed By: #### H EMOGC #### [facility] (DEFAULT) [address] [place] [address] 54076 Creatinine [Mass/Vol] 1.72 mg/dL High 0.70-1.30 [facility] Comment on above: Order Comment: To be collected on POD1 Performed By: #### H EMO #### [facility] (DEFAULT) [address] [place] [address] 41343 GFR/1.73 sq M.predicted among non-blacks MDRD (S/P/Bld) [Vol rate/Area] 46 mL/min/{1.73_m2} Low >=60 [facility] Comment on above: Order Comment: To be collected on POD1 Result Comment: Repo rted eGFR is based on the CKD-EPI 2020 equation using creatinine, age, and sex. Performed By: #### H EMO #### [facility] (DEFAULT) [address] [place] [address] 64928 Glucose [Mass/Vol] 78 mg/dL Normal 70-99 [facility] Comment on above: Order Comment: To be collected on POD1 Performed By: #### H EMO #### [facility] (DEFAULT) [address] [place] [address] 73486 Osmolality [Osmolality] 302 mosm/kg Normal 278-305 [facility] Comment on above: Order Comment: To be collected on POD1 Performed By: #### H EMO #### [facility] (DEFAULT) [address] [place] [address] 46577 Potassium [Moles/Vol] 5.0 mmol/L Normal 3.5-5.0 [facility] Comment on above: Order Comment: To be collected on POD1 Performed By: #### H EMOGC #### [facility] (DEFAULT) [address] [address] Protein [Mass/Vol] 6.9 g/dL Normal 6.4-8.3 [facility] Comment on above: Order Comment: To be collected on POD1 Performed By: #### H EMOGC #### [facility] (DEFAULT) [address] [place] [address] 48658 Sodium [Moles/Vol] 141 mmol/L Normal 135-145 [facility] Comment on above: Order Comment: To be collected on POD1 Performed By: #### H EMOGC #### [facility] (DEFAULT) [address] [place] [address] 82951 Urea nitrogen [Mass/Vol] 31 mg/dL High 7-25 [facility] Comment on above: Order Comment: To be collected on POD1 Performed By: #### H EMOGC #### [facility] (DEFAULT) [address] [place] [address] 77464 Urea nitrogen/Creatinine [Mass ratio] 18 mg/mg Normal [facility] Comment on above: Order Comment: To be collected on POD1 Performed By: #### H EMOGC #### [facility] (DEFAULT) [address] [place] [address] 81761 FERRITINon 09-30-2023 Ferritin [Mass/Vol] 381.3 ng/mL High 10.5 - 3 07.3 ng/mL [facility] Interpretation and review of laboratory results Abnormal [facility] Ferritin [Mass/Vol] 381.3 ng/mL High 10.5-307.3 [facility] Comment on above: Order Comment: Pleas e CC to PCP (Geovanna Gonzales) at fax: [phone] Performed By: #### S URGP #### [facility] (DEFAULT) [address] [address] FOLATE, SERUMOrdered By: Guerrero Wick on 09-30-2023 Folate [Mass/Vol] 44.78 ng/mL 5.38 - PIN F ng/mL [facility] Interpretation and review of laboratory results Normal [facility] FOLATE, SERUMon 09-30-2023 Folate 44.78 ng/mL Normal >5.38 [facility] Comment on above: Order Comment: Pleas e CC to PCP (Geovanna Gonzales) at fax: [phone] Performed By: #### S URGP #### [facility] (DEFAULT) [address] [place] [address] 39820 IRON/IRON BINDING/TRANSFERRI Non 09-30-2023 Interpretation and review of laboratory results Normal [facility] Iron [Mass/Vol] 91 ug/dL [facility] Iron binding capacity [Mass/Vol] 295 [facility] Iron saturation [Mass fraction] 31 % 20 - 55 % [facility] Transferrin [Mass/Vol] 236 mg/dL 200 - 400 mg/dL [facility] Iron [Mass/Vol] 91 ug/dL Normal 40-174 [facility] Comment on above: Order Comment: To be collected on POD1 Performed By: #### H EMOGC #### [facility] (DEFAULT) [address] [place] [address] 62213 Iron Saturation 31 % Normal 20-55 [facility] Comment on above: Order Comment: To be collected on POD1 Performed By: #### H EMOGC #### [facility] (DEFAULT) [address] [place] [address] 20415 Total Iron Binding Capacity 295 mcg/dL Normal 250-425 [facility] Comment on above: Order Comment: To be collected on POD1 Performed By: #### H EMOGC #### [facility] (DEFAULT) [address] [place] [address] 35241 Transferrin [Mass/Vol] 236 mg/dL Normal 200-400 [facility] Comment on above: Order Comment: To be collected on POD1 Performed By: #### H EMOGC #### [facility] (DEFAULT) [address] [place] [address] 63917 NICOTINE AND METABOLITES,SER UMon 09-30-2023 COTININE <3.0 Normal <3.0 [facility] Comment on above: Result Comment: ADDITIONAL INFORMATION This test was developed and its performance characteristics determined by [facility] in a manner consistent with CLIA requirements. This test has not been cleared or approved by the U.S. Food and Drug Administration. Test Performed by: [facility] [place] [address] Trade Mark Attorney: Tashi Zhou M.D. Ph.D.; CLIA# [id number] Performed By: #### U PCR #### [facility] (DEFAULT) [address] [address] NICOTINE <3.0 Normal <3.0 [facility] Comment on above: Performed By: #### U PCR #### [facility] (DEFAULT) [address] [place] [address]376 No Panel Informationon 09-29 [facility] PTH INTACTon 09-30-2023 Intact PTH 76.2 pg/mL High 14.0-72.0 [facility] Comment on above: Order Comment: Laias dahlia CC to PCP (Geovanna Gonzales) at fax: [phone] Performed By: #### X MPO #### [facility] (DEFAULT) [address] [place] [address] 27998 VITAMIN Aon 09-30-2023 FREE RETINOL (VIT A) 106.0 mcg/dL High 32.5-78.0 [facility] Comment on above: Order Comment: To be collected on POD1 Result Comment: ADDITIONAL INFORMATION This test was developed and its performance characteristics determined by [facility] in a manner consistent with CLIA requirements. This test has not been cleared or approved by the U.S. Food and Drug Administration. Test Performed by: [facility] [place] [address] Trade Mark Attorney: Tashi Zhou M.D. Ph.D.; CLIA# [id number] Performed By: #### C A, MGO, IPB, CHM7 #### [facility] (DEFAULT) [address] [place] [address] [place] [address] VITAMIN B1on 09-30-2023 THIAMIN, RBC 159 nmol/L Normal 70-180 [facility] Comment on above: Order Comment: To be collected on POD1 Result Comment: ADDITIONAL INFORMATION This test was developed and its performance characteristics determined by [facility] in a manner consistent with CLIA requirements. This test has not been cleared or approved by the U.S. Food and Drug Administration. Test Performed by: [facility] [address] [place] [address] Trade Mark Attorney: Tashi Zhou M.D. Ph.D.; CLIA# [id number] Performed By: #### H [facility] #### [facility] (DEFAULT) [address] [address] VITAMIN B12on 09-30-2023 Cobalamin (Vitamin B12) [Mass/Vol] 513 pg/mL 211 - 911 pg/mL [facility] Comment on above: Testing of Methylmal onic Acid and Intrinsic Factor Blocking Antibody are recommended if clinical suspicion for pernicious anemia due to B12 deficiency is high for patients with intermediate B12 levels (211 to 400 pg/mL) to rule out spurious heterophile antibodies. Interpretation and review of laboratory results Normal [facility] Cobalamin (Vitamin B12) [Mass/Vol] 513 pg/mL Normal 211-911 [facility] Comment on above: Order Comment: Joslyn HODGSON to PCP (Geovanna Gonzales) at fax: [phone] Result Comment: Test ing of Methylmalonic Acid and Intrinsic Factor Blocking Antibody are recommended if clinical suspicion for pernicious anemia due to B12 deficiency is high for patients with intermediate B12 levels (211 to 400 pg/mL) to rule out spurious heterophile antibodies. Performed By: #### S URG #### [facility] (DEFAULT) [address] [address] VITAMIN D (25-HYDROXY,TOTAL) on 04-01-2024 Interpretation and review of laboratory results Normal [facility] Vitamin D+Metabolites [Mass/Vol] 41.0 ng/mL 30.0 - 100.0 ng/mL [facility] Comment on above: <10 Deficiency 10-29 Insufficiency 30-100 Optimal Level >100 Possible Toxicity Vitamin D values hav e been shown to be falsely decreased in lipemic samples and should be interpreted with caution. [facility] 25-OH Vitamin D Total 41.0 ng/mL Normal 30.0-100.0 [facility] Comment on above: Order Comment: Joslyn ward CC to PCP (Geovanna Gonzales) at fax: [phone] D values have been shown to be falsely decreased in lipemic samples and should be interpreted with caution. Result Comment: <10 Deficiency 10-29 Insufficiency 30-100 Optimal Level >100 Possible Toxicity Performed By: #### X MPO #### [facility] (DEFAULT) [address] [place] [address] INTERVENTIONAL UPPER ENDOSCO PYon 2023 [facility] Gastroenterology Patient Name: Lino Fontenot Procedure Date: 2023 9:29 AM Date of : 1965 Admit Type: Outpatient Age: 58 Room: [place] [address] Gender: Male Note Status: Finalized Attending MD: Ivelisse Sparks MD, [id number] Procedure: Upper GI endoscopy Indications: Surveillance procedure, Epigastric abdominal pain, Heartburn, Postoperative assessment Providers: Ivelisse Sparks MD (Doctor), Carl Mari MD (Doctor), Alex Rascon RN (Nurse), Ella Gordon RN (Nurse), Cosmo Waters MD (Anesthesia Staff), JADEN Paintnig (Anesthesia Staff) Referring MD: REYES Gotti (Referring [...] the patient. Procedure Code(s): --- Professional --- 18596, Esophagogastroduodeno scopy, flexible, transoral; diagnostic, including collection of specimen(s) by brushing or washing, when performed (separate procedure) Diagnosis Code(s): --- Professional --- Z98.84, Bariatric surgery status R10.13, Epigastric pain R12, Heartburn Z09, Encounter for follow-up examination after completed treatment for conditions other than (more content not included)... LAB, [facility] Radiology Study observation (narrative) [facility] SURG PATH REQUESTon 05-28-20 Case Report [facility] Comment on above: Result Comment: Surg ical Pathology Report Case: [id number] Authorizing Provider: Aliza Davis MD Collected: 05/28/2023 02:42 PM Ordering Location: Dermatology Outpatient Received: 05/28/2023 02:44 PM [facility] Pathologist: Carlos Eduardo Sharif MD Specimen: Skin Bx Not cyst/tag/debridement/ plastic Performed By: #### S URGP #### [facility] (DEFAULT) [address] [place] [address] Clinical History Associated Diagnosis : Neoplasm of uncertain behavior of skin [D48.5]. Clinical History: R/o irritated nevus vs r/o atypia. [facility] Comment on above: Performed By: #### S URGP #### [facility] (DEFAULT) [address] [place] [address] Gross Description [facility] Comment on above: Result Comment: The [...] whole. TE 1 Lab Use Only: JobID [id number] Grosser for this case was: Génesis Glover Performed By: #### S URGP #### [facility] (DEFAULT) [address] [place] [address]70 Microscopic Description A. Histologic sections show nevus cells that are confined to the dermis, that are arranged in nests and cords. The intradermal melanocytes mature adequately showing diminished nest size with depth. [facility] Comment on above: Performed By: #### S URGP #### [facility] (DEFAULT) [address] [place] [address] 399[address] Pathologic Diagnosis [facility] Comment on above: Result Comment: Danica celaya, left upper arm, shave: Melanocytic nevus, intradermal type. Performed By: #### S URGP #### [facility] (DEFAULT) [address] [place] [address] Professional Interpretation Performed at: Normal [facility] Comment on above: Result Comment: [facility] For Immediate Release [facility] [address] [address] Performed By: #### S URGP #### [facility] (DEFAULT) [address] [place] [address] No Panel Informationon 03-11 IMPRESSION: Radiographically negative [...] Radiographically negative right foot and right ankle. [employer] No Panel InformationOrdered By: Felix Adame on 03-11-2023 [employer] Work Phone: XR ANKLE RIGHT 3+ VIEWSon [...] negative right foot and right ankle. Normal [facility] XR FOOT RIGHT 3 VIEWSon [...] negative right foot and right ankle. Normal [facility] XR Ankle - right 3 [facility] 0 03-10-2023 Radiology Study observation (narrative) [facility] XR Foot - right 3 [place] Radiology Study observation (narrative) [facility] PSA, REFLEX TO FREE AND TOTA L PSAon 01-04-2022 Interpretation and review of laboratory results Normal [facility] Prostate specific Ag [Mass/Vol] 0.68 ng/mL <=4.00 [facility] Comment on above: This test was perfor med on the Accurence IM Immunoassay platform which is a 2-step sandwich chemiluminescent immunoassay. It is important to note that assays using different manufacturers and/or methods may not be comparable. [facility] TYPE AND SCREEN - PREADMISSI ONon 01-04-2022 ABO/RH(D) TYPE Positive [facility] XR Spine Lumbar and Sacrum [...] acute fracture or dislocation. No significant degeneration. [employer] XR Spine Lumbar and Sacrum 5 ViewsOrdered By: Radha Tejada on 10-13-2021 [employer] Work Phone: Kidneyon 10-12-2021 IMPRESSION: 1. Polycystic [...] technique is similar to CT from 12/25/2019. [facility] Radiology Study observation (narrative) [facility] US KidneyOrdered By: Trisha Gonzalez on 10-12-2021 [facility] Work Phone: XR Spine Lumbar and Sacrum 5 Viewson 10-12-2021 Radiology Study observation (narrative) [facility] POCT URINALYSIS DIPSTICK AUT OMATED W/O SCOPon 10-09-2021 Amorphous sediment LM Ql (Urine sed) [facility] Appearance (U) CLEAR [facility] Bacteria LM Ql (Urine sed) [facility] Bilirubin Ql (U) Negative [facility] Casts LM.LPF (Urine sed) [#/Area] [facility] Color (U) YELLOW [facility] Crystals LM Nom (Urine sed) [facility] Epithelial cells.squamous LM.HPF (Urine sed) [#/Area] [facility] Flow cytometry specialist review Vikas (Unsp spec) [Interp] [facility] Glucose Auto test strip (U) [Mass/Vol] Negative mg/dL [facility] Interpretation and review of laboratory results Normal [facility] Ketones [Mass/Vol] Negative mg/dL [facility] Leukocyte esterase Qn (U) [facility] Leukocyte esterase Test strip Ql (U) Negative [facility] Nitrite Ql (U) Negative [facility] pH (U) 7.0 [pH] [facility] Protein Ql (U) Negative mg/dL [facility] RBC LM.HPF (Urine sed) [#/Area] [facility] RBC Ql (U) Negative [facility] Specific gravity (U) [Rel density] 1.025 [facility] Transitional cells LM Ql (Urine sed) [facility] Urobilinogen Qn (U) 0.2 [facility] WBC LM.HPF (Urine sed) [#/Area] [facility] ECG 12 lead ECGon 08-06-2018 ECG 12 lead ECG [facility] [place] [address] [place] [address] Electrocardiograph Report Signed Patient: Lino Fontenot MR#: [id number] : 1965 Acct:[id number] Age/Sex: 53 / M ADM Date: 08/06/18 Loc: [place] Room: Type: [facility] Attending Dr: Familia Stringer MD Ordering Provider: Ilia De La Cruz MD Date of Service: [...] DO 08/06/18 0759 Signed By: 08/06/18 1203 [facility] Abel 08-06-2018 L - -------- Specimen: [id number] Received: 08/06/18 Status: EMILIE Pablotobin Num: [id number] Spec Type: Surgical Subm Dr: Familia Stringer MD Tissues: A Fistula (LT UP ARM FISTULA) Procedures: HE Stain, Gross/Micro L3 -------- Patient Age/Sex Location Account Attending Physician -------- Lino Fontenot/M [place] [id number] Familia Stringer MD -------- SPEC NUM: [id number] RECD: 08/06/18 STATUS: EMILIE ORIANA NUM: [id number] ZULEIMA: 08/06/18 [facility] [address]: Familia Stringer MD ENTERED: 08/06/[address]: ADAM TYPE: Surgical DEPT: S ENTERED BY: [id number] RECV BY: [id number] ORDERED: HE Stain, Gross/Micro L3 ORDERED: HE [...] specimen is red, laminated, gelatinous blood clot. [employer] Tester sections are submitted in one cassette. (OCTAVIO/ORACIO/mary anne) Microscopic One glass slide with H E stained material has been examined. The microscopic findings support the above pathologic diagnosis. 680[address] A. Fistula - LT UP ARM FISTULA -------- -------- Specimen: [id number] Received: 08/06/18 Status: EMILIE Sanchez Num: [id number] Spec Type: Surgical Subm Dr: Familia Stringer MD Tissues: A Fistula (LT UP ARM FISTULA) Procedures: HE Stain, Gross/Micro L3 -------- Patient: Lino Fontenot [id number] (Continued) -------- Signed (signature on file) Jone Bentley MD 08/07/18 1512 Normal [facility] Potassiumon 08-06-2018 Potassium molar conc 4.9 mmol/L Normal 3.5-5.1 [facility] Comment on above: Result Comment: PERF ORMED BY: [facility] [address] [place] [address] PATHOLOGIST SOCIAL SCIENCES RESEARCH SCIENTIST CLARIBEL MCKENZIE M.D. Performed By: #### K #### [facility] [address] CBC, PLATELETS PANEL, MANUAL ENTERon 05-28-2018 [...] LAB, [facility] Fax Requeston 01-28-2017 Fax To [phone] [facility] Comment on above: Performed By: #### F X ####[facility] [address] [place] [address] Lab Director: Dr. Bryce Vaughn DO Faxed By PAY 12:58 01/28/17 [facility] Comment on above: Performed By: #### F X ####[facility] [address] [place] [address] Lab Director: Dr. Bryce Vaughn DO Specimen # [id number] [facility] Comment on above: Performed By: #### F X ####[facility] [address] [place] [address] Lab Director: Dr. Bryce Vaughn DO Tacrolimus Lvlon 01-28-2017 Last Dose 01.27.17 at 2245 [facility] Comment on above: Performed By: #### L TAC ####[facility] [address] [place] [address] Tacrolimus Level See Ref. Lab report [facility] Comment on above: Performed By: #### L TAC ####[facility] [place] [address] Fax Requeston 01-21-2017 Fax To [phone] [facility] Comment on above: Performed By: #### F X ####[facility] [address] [place] [address] Lab Director: Dr. Bryce Vaughn DO Faxed By [facility] 01/21/17 @ 1112 [facility] Comment on above: Performed By: #### F X ####[facility] [address] [place] [address] Lab Director: Dr. Bryce Vaughn, DO Lipid Profileon 01-21-2017 Cholesterol 124 mg/dL Normal 100 - 199 [facility] Comment on above: Performed By: #### L IP2 ####[facility] [address] [place] [address] Cholesterol in VLDL mass conc 13.0 mg/dL Normal <50.0 [facility] Comment on above: Performed By: #### L IP2 ####[facility] [address] [place] [address] Comment Normal [facility] Comment on above: Result Comment: Lito martin Reference RangeDesirable <200 mg/dLBoderline High 200-239mg/dLHigh >240 mg/dL Performed By: #### L IP2 ####[facility] [address] [place] [address] Coronary Risk 2.88 Normal [facility] Comment on above: Performed By: #### L IP2 ####[facility] [address] [place] [address] Coronary Risk Ref Text Normal [facility] Comment on above: Result Comment: Risk Ratio Men Women1/2 Average 3.433.27Average 4.97 4.442X Average 9.55 7.053X Qjirdbk55.99 11.04 Performed By: #### L IP2 ####[facility] [address] [place] [address] HDL Cholesterol 43 mg/dL Normal 40 - 60 [facility] Comment on above: Performed By: #### L IP2 ####[facility] [address] [place] [address] LDL Cholesterol 68 mg/dl Normal 0 - 100 [facility] Comment on above: Performed By: #### L IP2 ####[facility] [address] [place] [address] Specimen # [id number] [id number] [facility] Comment on above: Performed By: #### L IP2 ####[facility] [address] [place] [address] Triglyceride 65 mg/dL Normal <150 [facility] Comment on above: Performed By: #### L IP2 ####[facility] [address] [place] [address] Tacrolimus Lvlon 01-21-2017 Last Dose 01.20.2017 AT 2300 [facility] Comment on above: Performed By: #### L TAC ####[facility] [place] [address] Performed By [facility] Comment on above: Performed By: #### L TAC ####[facility] [address] [place] [address] lab Director: Dr. Bryce Vaughn, DO Specimen # [id number] [facility] Comment on above: Performed By: #### L TAC ####[facility] [address] [place] [address] lab Director: Dr. Bryce Vaughn, DO Performed By: #### F X ####[facility] [address] [place] [address] lab Director: Dr. Bryce Vaughn, DO Tacrolimus Level See Ref. Lab report [facility] Comment on above: Performed By: #### L TAC ####[facility] [address] [place] [address] Tacrolimus Lvl 7.4 [facility] Comment on above: Performed By: #### L TAC ####[facility] [address] [place] [address] lab Director: Dr. Bryce Vaughn DO Tacrolimus Lvl Ref Text [facility] Comment on above: Result Comment: Refe rence range: 2.0 to 20.0 Unit: ng/mL(NOTE) Trough (immediately following transplant) 15.0 Trough (steady state, 2 weeks or more after transplant): 3.0 - 8.0 Detection Limit = 1.0 Performed by LC-MS/MS technology.PERFORMED AT [facility] Performed By: #### L TAC ####[facility] [address] [place] [id number] lab Director: Dr. Bryce Vaughn DO Radiologyon [...] aligned. No other acute osseous abnormalities noted. [facility] Tacrolimus Lvlon 01-14-2017 Last Dose 01-13-17 AT 2200 [facility] Comment on above: Performed By: #### L TAC ####[facility] [address] [place] [address] Performed By [facility] Comment on above: Performed By: #### L TAC ####[facility] [address] [place], [place] [id number] lab Director: Dr. Bryce Vaughn DO Specimen # [id number] [facility] Comment on above: Performed By: #### L TAC ####[facility] [address] [place], [place] [id number] lab Director: Dr. Bryce Vaughn, DO Tacrolimus Level See Ref. Lab report [facility] Comment on above: Performed By: #### L TAC ####[facility] [address] [place] [address] Tacrolimus Lvl 8.7 [facility] Comment on above: Performed By: #### L TAC ####[facility] [address] [place] [address] Lab Director: Dr. Bryce Vaughn, DO Tacrolimus Lvl Ref Text [facility] Comment on above: Result Comment: Refe rence range: 2.0 to 20.0 Unit: ng/mL(NOTE) Trough (immediately following transplant) 15.0 Trough (steady state, 2 weeks or more after transplant): 3.0 - 8.0 Detection Limit = 1.0 Performed by LC-MS/MS technology.PERFORMED AT [facility] Performed By: #### L TAC ####[facility] [address] [place] [address] Lab Director: Dr. Bryce Vaughn, DO Tacrolimus Lvlon 01-07-2017 Last Dose 7..17 at 2215 [facility] Comment on above: Performed By: #### L TAC ####[facility] [address] [place] [address] Performed By [facility] Comment on above: Performed By: #### L TAC ####[facility] [address] [place] [address] lab Director: Dr. Bryce Vaughn, DO Specimen # [id number] [facility] Comment on above: Performed By: #### L TAC ####[facility] [address] [place] [address] lab Director: Dr. Bryce Vaughn, DO Tacrolimus Level See Ref. Lab report [facility] Comment on above: Performed By: #### L TAC ####[facility] [address] [place] [address] Tacrolimus Lvl 7.2 [facility] Comment on above: Performed By: #### L TAC ####[facility] [address] [place] [address] lab Director: Dr. Bryce Vaughn, DO Tacrolimus Lvl Ref Text [facility] Comment on above: Result Comment: Refe rence range: 2.0 to 20.0 Unit: ng/mL(NOTE) Trough (immediately following transplant) 15.0 Trough (steady state, 2 weeks or more after transplant): 3.0 - 8.0 Detection Limit = 1.0 Performed by LC-MS/MS technology.PERFORMED AT [facility] Performed By: #### L TAC ####[facility] [address] [place] [id number] lab Director: Dr. Bryce Vaughn, DO Tacrolimus Lvlon 12-31-2016 Last Dose 7. at 2230 [facility] Comment on above: Performed By: #### L TAC ####[facility] [address] [place] [address] Performed By [facility] Comment on above: Performed By: #### L TAC ####[facility] [address] [place] [address] lab Director: Dr. Bryce Vaughn, DO Specimen # [id number] [facility] Comment on above: Performed By: #### L TAC ####[facility] [address] [place] [address] lab Director: Dr. rByce Vaughn, DO Tacrolimus Level See Ref. Lab report [facility] Comment on above: Performed By: #### L TAC ####[facility] [address] [place], [place] [id number] Tacrolimus Lvl 8.3 [facility] Comment on above: Performed By: #### L TAC ####[facility] [address] [place] [address] lab Director: Dr. Bryce Vaughn, DO Tacrolimus Lvl Ref Text [facility] Comment on above: Result Comment: Refe rence range: 2.0 to 20.0 Unit: ng/mL(NOTE) Trough (immediately following transplant) 15.0 Trough (steady state, 2 weeks or more after transplant): 3.0 - 8.0 Detection Limit = 1.0 Performed by LC-MS/MS technology.PERFORMED AT [facility] Performed By: #### L TAC ####[facility] [address] [place], [place] [id number] lab Director: Dr. Bryce Vaughn, Vital Signs Date Time Vital Sign Value Performing Clinician Stefany burnham 04-23-2024 09:56-0400 Body height 170.2 cm Liza Tyroger[employer] Work Phone: [facility] 04-23-2024 09:56-0400 Body mass index (BMI) [Ratio] 33.74 kg/m2 Liza Tyivette [employer]IM [employer] Work Phone: [facility] 04-23-2024 09:56-0400 Body temperature 97.2 [degF] LizaIdeal Me [employer]IM [employer] Work Phone: [facility] 04-23-2024 09:56-0400 Body weight 97.7 kg Defywire [employer]IM [employer] Work Phone: [facility] 04-23-2024 09:56-0400 Diastolic blood pressure 63 mm[Hg] Liza Tuteeivette [employer]IM [employer] Work Phone: [facility] 04-23-2024 09:56-0400 Heart rate 63 /min Liza Penn TRIM [employer]KE [employer] Work Phone: [facility] 04-23-2024 09:56-0400 Respiratory rate 16 /min Liza Penn TRIM [employer] Work Phone: [facility] 04-23-2024 09:56-0400 SaO2% (BldA) [Mass fraction] 100 % Liza Penn TRIM [employer]KE [employer] Work Phone: [facility] Comment on above: toom [employer] 04-23-2024 09:56-0400 Systolic blood pressure 132 mm[Hg] Liza Penn TRIM [employer]KE [employer] Work Phone: [facility] 04-21-2024 14:13-0400 Body mass index (BMI) [Ratio] 34.03 kg/m2 Sam UNGER Work Phone: [facility] 04-21-2024 14:13-0400 Body temperature 98.1 [degF] Sam UNGER Work Phone: [facility] 04-21-2024 14:13-0400 Body weight 98.57 kg Sam UNGER Work Phone: [facility] 04-21-2024 14:13-0400 Diastolic blood pressure 70 mm[Hg] Sam UNGER Work Phone: [facility] 04-21-2024 14:13-0400 Heart rate 72 /min Sam UNGER Work Phone: [facility] 04-21-2024 14:13-0400 Systolic blood pressure 137 mm[Hg] Sam UNGER Work Phone: [facility] 04-21-2024 11:24-0400 Body mass index (BMI) [Ratio] 33.63 kg/m2 Isabell Frank MD Work Phone: [facility] 04-21-2024 11:24-0400 Body weight 97.39 kg Isabell Frank MD Work Phone: [facility] 04-21-2024 11:24-0400 Diastolic blood pressure 59 mm[Hg] Isabell Frank MD Work Phone: [facility] 04-21-2024 11:24-0400 Heart rate 60 /min Isabell Frank MD Work Phone: [facility] 04-21-2024 11:24-0400 SaO2% (BldA) [Mass fraction] 99 % Isabell Frank MD Work Phone: [facility] 04-21-2024 11:24-0400 Systolic blood pressure 138 mm[Hg] Isabell Frank MD Work Phone: [facility] 04-09-2024 10:22-0400 Body height 170.2 cm Griselda Gallegos MD Work Phone: [facility] 04-09-2024 10:22-0400 Body mass index (BMI) [Ratio] 36.18 kg/m2 Griselda Gallegos MD Work Phone: [facility] 04-09-2024 10:22-0400 Body temperature 97.81 [degF] Griselda Gallegos MD Work Phone: [facility] 04-09-2024 10:22-0400 Body weight 104.78 kg Griselda Gallegos MD Work Phone: [facility] 04-09-2024 10:22-0400 Diastolic blood pressure 69 mm[Hg] Griselda Gallegos MD Work Phone: [facility] 04-09-2024 10:22-0400 Heart rate 61 /min Griselda Gallegos MD Work Phone: [facility] 04-09-2024 10:22-0400 Respiratory rate 16 /min Griselda Gallegos MD Work Phone: [facility] 04-09-2024 10:22-0400 SaO2% (BldA) [Mass fraction] 100 % Griselda Gallegos MD Work Phone: [facility] Comment on above: room air 04-09-2024 10:22-0400 Systolic blood pressure 151 mm[Hg] Griselda Gallegos MD Work Phone: [facility] 04-07-2024 13:56-0400 Body height 170.18 cm [facility] 04-07-2024 13:56-0400 Body mass index (BMI) [Ratio] 36.8 kg/m2 [facility] 04-07-2024 13:56-0400 Body temperature 97.8 [degF] [facility] 04-07-2024 13:56-0400 Body weight 106.7 kg [facility] 04-07-2024 13:56-0400 Diastolic blood pressure 66 mm[Hg] [facility] 04-07-2024 13:56-0400 Heart rate 68 /min [facility] 04-07-2024 13:56-0400 SaO2% (BldA) [Mass fraction] 96 % [facility] 04-07-2024 13:56-0400 Systolic blood pressure 120 mm[Hg] [facility] 04-06-2024 10:59-0400 Body height 170.2 cm aCyla CHAMBERS Work Phone: [facility] 04-06-2024 10:59-0400 Body mass index (BMI) [Ratio] 36.57 kg/m2 Cayla CHAMBERS Work Phone: [facility] 04-06-2024 10:59-0400 Body weight 105.92 kg Cayla CHAMBERS Work Phone: [facility] 04-06-2024 10:59-0400 Heart rate 71 /min Cayla Carey [employer]IM [employer] Work Phone: [facility] 04-06-2024 10:59-0400 SaO2% (BldA) [Mass fraction] 99 % Cayla Carey [employer] Work Phone: [facility] 03-28-2024 10:30-0400 Body temperature 98.6 [degF] Griselda Gallegos MD Work Phone: [facility] 03-28-2024 10:30-0400 Diastolic blood pressure 57 mm[Hg] Griselda Gallegos MD Work Phone: [facility] 03-28-2024 10:30-0400 Heart rate 68 /min Griselda Gallegos MD Work Phone: [facility] 03-28-2024 10:30-0400 Respiratory rate 16 /min Griselda Gallegos MD Work Phone: [facility] 03-28-2024 10:30-0400 SaO2% (BldA) [Mass fraction] 95 % Griselda Gallegos MD Work Phone: [facility] 03-28-2024 10:30-0400 Systolic blood pressure 118 mm[Hg] Griselda Gallegos MD Work Phone: [facility] 03-26-2024 02:34-0400 Body mass index (BMI) [Ratio] 37.07 kg/m2 Griselda Gallegos MD Work Phone: [facility] 03-26-2024 02:34-0400 Body weight 107.37 kg Griselda Gallegos MD Work Phone: [facility] 03-23-2024 08:55-0400 Body height 170.2 cm Griselda Gallegos MD Work Phone: [facility] 02-25-2024 10:18-0400 Body height 170.2 cm Kelsey Lozano [employer] Work Phone: [facility] 02-25-2024 10:18-0400 Body mass index (BMI) [Ratio] 37.26 kg/m2 Kelsey Lozano [employer] Work Phone: [facility] 02-25-2024 10:18-0400 Body temperature 98.2 [degF] Kelsey Joynerner [employer] Work Phone: [facility] 02-25-2024 10:18-0400 Body weight 107.91 kg Kelsey Joynerner [employer] Work Phone: [facility] 02-25-2024 10:18-0400 Diastolic blood pressure 76 mm[Hg] Kelsey Joynerner TRIM [employer] Work Phone: [facility] 02-25-2024 10:18-0400 Heart rate 57 /min Kelsey Joynerner [employer]IM [employer] Work Phone: [facility] 02-25-2024 10:18-0400 Respiratory rate 16 /min Kelsey Lozano TRIM [employer] Work Phone: [facility] 02-25-2024 10:18-0400 SaO2% (BldA) [Mass fraction] 97 % Kelsey Sherlyn [employer]IM [employer] Work Phone: [facility] 02-25-2024 10:18-0400 Systolic blood pressure 112 mm[Hg] Kelsey Sherlyn TRIM [employer] Work Phone: [facility] 02-24-2024 09:09-0400 Body height 170.18 cm [facility] 02-24-2024 09:09-0400 Body mass index (BMI) [Ratio] 36.9 kg/m2 [facility] 02-24-2024 09:09-0400 Body weight 107.04 kg [facility] 02-24-2024 09:09-0400 Diastolic blood pressure 68 mm[Hg] [facility] 02-24-2024 09:09-0400 Heart rate 62 /min [facility] 02-24-2024 09:09-0400 SaO2% (BldA) [Mass fraction] 98 % [facility] 02-24-2024 09:09-0400 Systolic blood pressure 112 mm[Hg] [facility] 02-20-2024 11:20-0400 Body height 170.2 cm Griselda Gallegos MD Work Phone: [facility] 02-20-2024 11:20-0400 Body mass index (BMI) [Ratio] 37.59 kg/m2 Griselda Gallegos MD Work Phone: [facility] 02-20-2024 11:20-0400 Body temperature 97.2 [degF] Griselda Gallegos MD Work Phone: [facility] 02-20-2024 11:20-0400 Body weight 108.86 kg Griselda Gallegos MD Work Phone: [facility] 02-20-2024 11:20-0400 Diastolic blood pressure 72 mm[Hg] Griselda Gallegos MD Work Phone: [facility] 02-20-2024 11:20-0400 Heart rate 62 /min Griselda Gallegos MD Work Phone: [facility] 02-20-2024 11:20-0400 Respiratory rate 16 /min Griselda Gallegos MD Work Phone: [facility] 02-20-2024 11:20-0400 SaO2% (BldA) [Mass fraction] 98 % Griselda Gallegos MD Work Phone: [facility] 02-20-2024 11:20-0400 Systolic blood pressure 148 mm[Hg] Griselda Gallegos MD Work Phone: [facility] 01-15-2024 11:08-0400 Body height 170.2 cm Rodrigo Saravia MD Work Phone: [facility] 01-15-2024 11:08-0400 Body mass index (BMI) [Ratio] 37.93 kg/m2 Rodrigo Saravia MD Work Phone: [facility] 01-15-2024 11:08-0400 Body temperature 98.01 [degF] Rodrigo Saravia MD Work Phone: [facility] 01-15-2024 11:08-0400 Body weight 109.86 kg Rodrigo Saravia MD Work Phone: [facility] 01-15-2024 11:08-0400 Diastolic blood pressure 60 mm[Hg] Rodrigo Saravia MD Work Phone: [facility] 01-15-2024 11:08-0400 Heart rate 68 /min Rodrigo Saravia MD Work Phone: [facility] 01-15-2024 11:08-0400 Respiratory rate 12 /min Rodrigo Saravia MD Work Phone: [facility] 01-15-2024 11:08-0400 SaO2% (BldA) [Mass fraction] 96 % Rodrigo Saravia MD Work Phone: [facility] 01-15-2024 11:08-0400 Systolic blood pressure 118 mm[Hg] Rodrigo Saravia MD Work Phone: [facility] 12-25-2023 08:16-0400 Body height 170.2 cm Cait Richardson MD Work Phone: [facility] Comment on above: Per patient 12-25-2023 08:16-0400 Body mass index (BMI) [Ratio] 37.07 kg/m2 Cait Richardson MD Work Phone: [facility] 12-25-2023 08:16-0400 Body weight 107.37 kg Cait Richardson MD Work Phone: [facility] 12-25-2023 08:16-0400 Diastolic blood pressure 68 mm[Hg] Cait Richardson MD Work Phone: [facility] 12-25-2023 08:16-0400 Heart rate 60 /min Cait Richardson MD Work Phone: [facility] 12-25-2023 08:16-0400 SaO2% (BldA) [Mass fraction] 98 % Cait Richardson MD Work Phone: [facility] 12-25-2023 08:16-0400 Systolic blood pressure 122 mm[Hg] Cait Richardson MD Work Phone: [facility] 12-04-2023 10:48-0400 Body height 170.2 cm Rodrigo Saravia MD Work Phone: [facility] 12-04-2023 10:48-0400 Body mass index (BMI) [Ratio] 37.21 kg/m2 Rodrigo Saravia MD Work Phone: [facility] 12-04-2023 10:48-0400 Body temperature 98.8 [degF] Rodrigo Saravia MD Work Phone: [facility] 12-04-2023 10:48-0400 Body weight 107.78 kg Rodrigo Saravia MD Work Phone: [facility] 12-04-2023 10:48-0400 Diastolic blood pressure 68 mm[Hg] Rodrigo Saravia MD Work Phone: [facility] 12-04-2023 10:48-0400 Heart rate 71 /min Rodrigo Saravia MD Work Phone: [facility] 12-04-2023 10:48-0400 Respiratory rate 18 /min Rodrigo Saravia MD Work Phone: [facility] 12-04-2023 10:48-0400 SaO2% (BldA) [Mass fraction] 97 % Rodrigo Saravia MD Work Phone: [facility] 12-04-2023 10:48-0400 Systolic blood pressure 94 mm[Hg] Rodrigo Saravia MD Work Phone: [facility] 09-30-2023 15:22-0400 Diastolic blood pressure 82 mm[Hg] Liza Tychonievich TRIM [employer]KE [employer] Work Phone: [facility] 09-30-2023 15:22-0400 Systolic blood pressure 132 mm[Hg] Liza Tychonievich TRIM [employer] Work Phone: [facility] 09-30-2023 13:51-0400 Body height 170.2 cm Liza Tychonievich TRIM [employer] Work Phone: [facility] 09-30-2023 13:51-0400 Body mass index (BMI) [Ratio] 35.91 kg/m2 Liza Tychonievich TR[employer] Work Phone: [facility] 09-30-2023 13:51-0400 Body temperature 97.81 [degF] Liza Tychonievich TRIM [employer] Work Phone: [facility] 09-30-2023 13:51-0400 Body weight 104.01 kg Liza Tychonievich TRIM [employer]KE [employer] Work Phone: [facility] 09-30-2023 13:51-0400 Heart rate 63 /min Liza Tychonievich TRIM [employer] Work Phone: [facility] 09-30-2023 13:51-0400 Respiratory rate 16 /min Liza Tychonievich TR[employer] Work Phone: [facility] 09-30-2023 13:51-0400 SaO2% (BldA) [Mass fraction] 98 % Liza CHAMBERS Work Phone: [facility] Comment on above: roomair 2023 10:30-0500 Diastolic blood pressure 75 mm[Hg] Ivelisse Sparks MD Work Phone: [facility] 2023 10:30-0500 Heart rate 58 /min Ivelisse Sparks MD Work Phone: [facility] 2023 10:30-0500 Respiratory rate 22 /min Ivelisse Sparks MD Work Phone: [facility] 2023 10:30-0500 SaO2% (BldA) [Mass fraction] 97 % Ivelisse Sparks MD Work Phone: [facility] 2023 10:30-0500 Systolic blood pressure 158 mm[Hg] Ivelisse Sparks MD Work Phone: [facility] 2023 09:59-0500 Body temperature 98.6 [degF] Ivelisse Sparks MD Work Phone: [facility] 2023 09:09-0500 Body height 170.2 cm Ivelisse Sparks MD Work Phone: [facility] 04-19-2023 10:26-0400 Body height 170.2 cm Javan Diego DPM Work Phone: [facility] 04-19-2023 10:26-0400 Body mass index (BMI) [Ratio] 38.4 kg/m2 Javan Bark DPM Work Phone: [facility] 04-19-2023 10:26-0400 Body temperature 97.7 [degF] Javan Diego DPM Work Phone: [facility] 04-19-2023 10:0400 Body weight 111.2 kg Javan Diego DPM Work Phone: [facility] 04-16-2023 14:0400 Body height 170.2 cm Geovanna Gonzales TRIM [employer]KE [employer] Work Phone: [facility] [employer] [facility] 04-16-2023 14:21-0400 Body mass index (BMI) [Ratio] 38.4 kg/m2 Geovanna Trubachik TRIM [employer]KE [employer] Work Phone: [facility] [employer] [facility] 04-16-2023 14:21-0400 Body temperature 98.71 [degF] Geovanna Trubachik TRIM [employer]SHAKE C[employer] Work Phone: [facility] [employer] [facility] 04-16-2023 14:-0400 Body weight 111.22 kg Geovanna Trubachik TRIM [employer]KE [employer] Work Phone: [facility] [employer] [facility] 04-16-2023 14:21-0400 Diastolic blood pressure 74 mm[Hg] Geovanna Trubachik TRIM SAW[employer]ER[employer]SHAKE CUTTER Work Phone: [employer] [facility] 04-16-2023 14:21-0400 Heart rate 86 /min Geovanna Trubachik TRIM [employer] Work Phone: [facility] [employer] [facility] 04-16-2023 14:21-0400 Respiratory rate 18 /min Geovanna Trubachik TRIM [employer] Work Phone: [facility] [employer] [facility] 04-16-2023 14:21-0400 SaO2% (BldA) [Mass fraction] 97 % Geovanna Trubachik TRIM [employer]KE [employer] Work Phone: [employer] [facility] 04-16-2023 14:21-0400 Systolic blood pressure 120 mm[Hg] Geovanna Trubachik TRIM [employer]KE [employer] Work Phone: [facility] 03-10-2023 23:11-0400 Body height 170.2 cm Ilia Shaffer MD Work Phone: [facility] [employer] [facility] 03-10-2023 23:11-0400 Body temperature 97.39 [degF] Ilia Shaffer MD Work Phone: [facility] 03-10-2023 23:11-0400 Diastolic blood pressure 70 mm[Hg] Ilia Shaffer MD Work Phone: [facility] 03-10-2023 23:11-0400 Heart rate 67 /min Ilia Shaffer MD Work Phone: [facility] 03-10-2023 23:11-0400 Respiratory rate 20 /min Ilia Shaffer MD Work Phone: [facility] 03-10-2023 23:11-0400 SaO2% (BldA) [Mass fraction] 100 % Ilia Shaffer MD Work Phone: [facility] 03-10-2023 23:11-0400 Systolic blood pressure 154 mm[Hg] Ilia Shaffer MD Work Phone: [facility] 12-10-2022 14:04-0400 Body height 170.2 cm Liza Tychonievich TRIM [employer] Work Phone: [facility] 12-10-2022 14:04-0400 Body mass index (BMI) [Ratio] 37.79 kg/m2 Liza Tychonievich TR[employer] Work Phone: [facility] 12-10-2022 14:04-0400 Body temperature 97.59 [degF] Liza Tychonievich TR[employer] Work Phone: [facility] 12-10-2022 14:04-0400 Body weight 109.45 kg Liza Tychonievich [employer] Work Phone: [facility] 12-10-2022 14:04-0400 Diastolic blood pressure 74 mm[Hg] Liza Tychonievich TRIM [employer] Work Phone: [facility] 12-10-2022 14:04-0400 Heart rate 65 /min Liza Tychonievich TRIM [employer] Work Phone: [facility] 12-10-2022 14:04-0400 Respiratory rate 16 /min Liza Penn APRN-SHAKE CUTTER Work Phone: [facility] 12-10-2022 14:04-0400 Systolic blood pressure 142 mm[Hg] Liza Penn APRN-SHAKE CUTTER Work Phone: [facility] 10-29-2022 09:57-0400 Body height 170.2 cm Geovanna Gonzales APRN-SHAKE CUTTER Work Phone: [facility] 10-29-2022 09:57-0400 Body mass index (BMI) [Ratio] 37.34 kg/m2 Geovanna Gonzales TRIM [employer] Work Phone: [facility] 10-29-2022 09:57-0400 Body temperature 97.5 [degF] Geovanna Gonzales APRN-SHAKE CUTTER Work Phone: [facility] 10-29-2022 09:57-0400 Body weight 108.14 kg Geovanna Gonzales TRIM [employer] Work Phone: [facility] 10-29-2022 09:57-0400 Diastolic blood pressure 58 mm[Hg] Geovanna Gonzales TRIM [employer] Work Phone: [facility] 10-29-2022 09:57-0400 Heart rate 71 /min Geovanna Gonzales TRIM [employer] Work Phone: [facility] 10-29-2022 09:57-0400 Respiratory rate 18 /min Geovanna Gonzales TRIM [employer] Work Phone: [facility] 10-29-2022 09:57-0400 SaO2% (BldA) [Mass fraction] 97 % Geovanna Gonzales TRIM [employer] Work Phone: [facility] 10-29-2022 09:57-0400 Systolic blood pressure 116 mm[Hg] Geovanna Gonzales TRIM [employer] Work Phone: [facility] 10-26-2022 20:18-0400 Body height 170.2 cm Mary Lamport PA-C Work Phone: [facility] 10-26-2022 20:18-0400 Body mass index (BMI) [Ratio] 38.01 kg/m2 Mary Lamport PA-C Work Phone: [facility] 10-26-2022 20:18-0400 Body temperature 98.6 [degF] Mary Lamport PA-C Work Phone: [facility] 10-26-2022 20:18-0400 Body weight 110.09 kg Mary Lamport PA-C Work Phone: [facility] 10-26-2022 20:18-0400 Diastolic blood pressure 75 mm[Hg] Mary Lamport PA-C Work Phone: [facility] 10-26-2022 20:18-0400 Heart rate 74 /min Mary Lamport PA-C Work Phone: [facility] 10-26-2022 20:18-0400 Respiratory rate 18 /min Mary Lamport PA-C Work Phone: [facility] 10-26-2022 20:18-0400 SaO2% (BldA) [Mass fraction] 93 % Mary Lamport PA-C Work Phone: [facility] 10-26-2022 20:18-0400 Systolic blood pressure 122 mm[Hg] Mary Lamport PA-C Work Phone: [facility] 10-24-2022 07:18-0400 Body height 170.2 cm Maico Hernadez MD Work Phone: [facility] 10-24-2022 07:16-0400 Body temperature 97.9 [degF] Maico Hernadez MD Work Phone: [facility] 10-24-2022 07:16-0400 Diastolic blood pressure 67 mm[Hg] Maico Hernadez MD Work Phone: [facility] 10-24-2022 07:16-0400 Heart rate 67 /min Maico Hernadez MD Work Phone: [facility] 10-24-2022 07:16-0400 Respiratory rate 18 /min Maico Hernadez MD Work Phone: [facility] 10-24-2022 07:16-0400 SaO2% (BldA) [Mass fraction] 99 % Maico Hernadez MD Work Phone: [facility] 10-24-2022 07:16-0400 Systolic blood pressure 140 mm[Hg] Maico Hernadez MD Work Phone: [facility] 09-02-2022 12:57-0500 Body mass index (BMI) [Ratio] 36.59 kg/m2 Jayshree Vilchis SHAKE CUTTER Work Phone: [facility] 09-02-2022 12:57-0500 Body temperature 99.61 [degF] Jayshree Deng SHAKE CUTTER Work Phone: [facility] 09-02-2022 12:57-0500 Body weight 105.96 kg Jayshree Deng SHAKE CUTTER Work Phone: [facility] 09-02-2022 12:57-0500 Diastolic blood pressure 72 mm[Hg] Jayshree Vilchis SHAKE CUTTER Work Phone: [facility] 09-02-2022 12:57-0500 Heart rate 86 /min Jayshree Vilchis SHAKE CUTTER Work Phone: [facility] 09-02-2022 12:57-0500 Respiratory rate 16 /min Jayshree Vilchis SHAKE CUTTER Work Phone: [facility] 09-02-2022 12:57-0500 SaO2% (BldA) [Mass fraction] 96 % Jayshree Vilchis SHAKE CUTTER Work Phone: [facility] 09-02-2022 12:57-0500 Systolic blood pressure 114 mm[Hg] Jayshree Deng SHAKE CUTTER Work Phone: [facility] 08-30-2022 10:32-0500 Body height 170.2 cm Jayshree Vilchis CNP Work Phone: [facility] 08-30-2022 10:32-0500 Body mass index (BMI) [Ratio] 37.12 kg/m2 Jayshree Vilchis CNP Work Phone: [facility] 08-30-2022 10:32-0500 Body temperature 98.2 [degF] Jayshree Vilchis CNP Work Phone: [facility] 08-30-2022 10:32-0500 Body weight 107.5 kg Jayshree Vilchis CNP Work Phone: [facility] 08-30-2022 10:32-0500 Diastolic blood pressure 75 mm[Hg] Jayshree Vilchis CNP Work Phone: [facility] 08-30-2022 10:32-0500 Heart rate 92 /min Jayshree Vilchis CNP Work Phone: [facility] 08-30-2022 10:32-0500 Respiratory rate 16 /min Jayshree Vilchis CNP Work Phone: [facility] 08-30-2022 10:32-0500 SaO2% (BldA) [Mass fraction] 96 % Jayshree Vilchis CNP Work Phone: [facility] 08-30-2022 10:32-0500 Systolic blood pressure 113 mm[Hg] Jayshree Vilchis CNP Work Phone: [facility] 04-21-2022 10:51-0400 Body height 170.2 cm Raheem Archuleta MD Work Phone: [facility] 04-21-2022 10:50-0400 Body temperature 98.01 [degF] Raheem Archuleta MD Work Phone: [facility] 04-21-2022 10:50-0400 Diastolic blood pressure 77 mm[Hg] Raheem Archuleta MD Work Phone: [facility] 04-21-2022 10:50-0400 Heart rate 67 /min Raheem Archuleta MD Work Phone: [facility] 04-21-2022 10:50-0400 Respiratory rate 16 /min Raheem Archuleta MD Work Phone: [facility] 04-21-2022 10:50-0400 SaO2% (BldA) [Mass fraction] 97 % Raheem Archuleta MD Work Phone: [facility] 04-21-2022 10:50-0400 Systolic blood pressure 140 mm[Hg] Raheem Archuleta MD Work Phone: [facility] 03-02-2022 14:25-0400 Body height 170.2 cm Geovanna Trubachik TRIM [employer]WYER[employer]SHAKE C[employer]TER Work Phone: [facility] 03-02-2022 14:25-0400 Body mass index (BMI) [Ratio] 35.15 kg/m2 Geovanna Trubachik TRIM SAWYER-SHAKE CUTTER Work Phone: [facility] [employer] [facility] 03-02-2022 14:25-0400 Body temperature 98.1 [degF] Geovanna Trubachik TRIM [employer]SHAKE C[employer] Work Phone: [facility] 03-02-2022 14:25-0400 Body weight 101.79 kg Geovanna Trubachik TRIM [employer]SHAKE C[employer] Work Phone: [facility] [employer] [facility] 03-02-2022 14:25-0400 Diastolic blood pressure 68 mm[Hg] Geovanna Trubachik TRIM [employer]SHAKE C[employer] Work Phone: [facility] [employer] [facility] 03-02-2022 14:25-0400 Heart rate 73 /min Geovanna Trubachik TRIM SAWYER[employer]SHAKE C[employer]TER Work Phone: [facility] 03-02-2022 14:25-0400 Respiratory rate 18 /min Geovanna Trubachik TRIM [employer]SHAKE C[employer] Work Phone: [facility] 03-02-2022 14:25-0400 SaO2% (BldA) [Mass fraction] 97 % Geovanna Trubachik TRIM SA[employer]SHAKE C[employer]TER Work Phone: [employer] [facility] 03-02-2022 14:25-0400 Systolic blood pressure 130 mm[Hg] Geovanna Gonzales TRIM [employer]SHAKE C[employer] Work Phone: [employer] [facility] 01-08-2022 08:20-0400 Body height 170.2 cm Geovanna Gonzales TRIM [employer]SHAKE C[employer] Work Phone: [employer] [facility] 01-08-2022 08:20-0400 Body mass index (BMI) [Ratio] 34.64 kg/m2 Geovanna Gonzales TRIM [employer]SHAKE C[employer] Work Phone: [employer] [facility] 01-08-2022 08:20-0400 Body temperature 98.01 [degF] Geovanna Gonzales TRIM [employer]KE [employer] Work Phone: [employer] [facility] 01-08-2022 08:20-0400 Body weight 100.34 kg Geovanna Gonzales TRIM [employer]KE [employer] Work Phone: [employer] [facility] 01-08-2022 08:20-0400 Diastolic blood pressure 80 mm[Hg] Geovanna Healyk TRIM [employer]KE [employer] Work Phone: [employer] [facility] 01-08-2022 08:20-0400 Heart rate 62 /min Geovanna Gonzales TRIM [employer] Work Phone: [employer] [facility] 01-08-2022 08:20-0400 Respiratory rate 18 /min Geovanna Gonzales TRIM [employer]KE [employer] Work Phone: [employer] [facility] 01-08-2022 08:20-0400 SaO2% (BldA) [Mass fraction] 97 % Geovanna Gonzales TRIM [employer]KE [employer] Work Phone: [employer] [facility] 01-08-2022 08:20-0400 Systolic blood pressure 122 mm[Hg] Geovanna Gonzales TRIM [employer]KE [employer] Work Phone: [employer] [facility] 01-04-2022 11:00-0400 Body height 170.2 cm Jennifer Marrufo DO Work Phone: [facility] 01-04-2022 11:00-0400 Body mass index (BMI) [Ratio] 33.8 kg/m2 Jennifer Marrufo DO Work Phone: [facility] 01-04-2022 11:00-0400 Body temperature 98.1 [degF] Jennifer Marrufo DO Work Phone: [facility] 01-04-2022 11:00-0400 Body weight 97.89 kg Jennifer Marrufo DO Work Phone: [facility] 01-04-2022 11:00-0400 Diastolic blood pressure 74 mm[Hg] Jennifer Marrufo DO Work Phone: [facility] 01-04-2022 11:00-0400 Heart rate 54 /min Jennifer Marrufo DO Work Phone: [facility] 01-04-2022 11:00-0400 Respiratory rate 20 /min Jennifer Marrufo DO Work Phone: [facility] 01-04-2022 11:00-0400 SaO2% (BldA) [Mass fraction] 97 % Jennifer Marrufo DO Work Phone: [facility] 01-04-2022 11:00-0400 Systolic blood pressure 134 mm[Hg] Jennifer Marrufo DO Work Phone: [facility] 11-30-2021 11:13-0400 Body height 170.2 cm Karon Howard MD Work Phone: [facility] 11-30-2021 11:13-0400 Body mass index (BMI) [Ratio] 33.47 kg/m2 Karon Howard MD Work Phone: [facility] 11-30-2021 11:13-0400 Body temperature 98.2 [degF] Karon Howard MD Work Phone: [facility] 11-30-2021 11:13-0400 Body weight 96.93 kg Karon Howard MD Work Phone: [facility] 11-30-2021 11:13-0400 Diastolic blood pressure 75 mm[Hg] Karon Howard MD Work Phone: [facility] 11-30-2021 11:13-0400 Heart rate 51 /min Karon Howard MD Work Phone: [facility] 11-30-2021 11:13-0400 Respiratory rate 16 /min Karon Howard MD Work Phone: [facility] 11-30-2021 11:13-0400 SaO2% (BldA) [Mass fraction] 96 % Karon Howard MD Work Phone: [facility] 11-30-2021 11:13-0400 Systolic blood pressure 131 mm[Hg] Karon Howard MD Work Phone: [facility] 10-26-2021 09:13-0400 Body mass index (BMI) [Ratio] 31.94 kg/m2 Suzie Giraldo MD, PhD Work Phone: [facility] 10-26-2021 09:13-0400 Body temperature 97.2 [degF] Suzie Giraldo MD, PhD Work Phone: [facility] 10-26-2021 09:13-0400 Body weight 92.49 kg Suzie Giraldo MD, PhD Work Phone: [facility] 10-26-2021 09:13-0400 Diastolic blood pressure 72 mm[Hg] Suzie Giraldo MD, PhD Work Phone: [facility] 10-26-2021 09:13-0400 Heart rate 59 /min Suzie Giraldo MD, PhD Work Phone: [facility] 10-26-2021 09:13-0400 Systolic blood pressure 128 mm[Hg] Suzie Giraldo MD, PhD Work Phone: [facility] 10-09-2021 13:11-0400 Body height 170.2 cm Geovanna Gonzales TRIM [employer] Work Phone: [facility] 10-09-2021 13:11-0400 Body mass index (BMI) [Ratio] 32.62 kg/m2 Geovanna Chapaubaneftalyk TRIM [employer]SHAKE C[employer]TER Work Phone: [facility] [employer] [facility] 10-09-2021 13:11-0400 Body temperature 97.7 [degF] Geovanna Harkinschik TRIM [employer]KE [employer] Work Phone: [facility] [employer] [facility] 10-09-2021 13:11-0400 Body weight 94.46 kg Geovanna Chapaubachaz TRIM [employer] Work Phone: [facility] [employer] [facility] 10-09-2021 13:11-0400 Diastolic blood pressure 70 mm[Hg] Geovanna Chapaubachik TRIM [employer]KE [employer] Work Phone: [facility] [facility] 10-09-2021 13:11-0400 Heart rate 60 /min Geovanna Chapaubaneftalyk TRIM [employer]SHAKE [employer] Work Phone: [facility] [employer] [facility] 10-09-2021 13:11-0400 Respiratory rate 18 /min Geovanna Chapaubachik TRIM [employer]KE [employer] Work Phone: [facility] [employer] [facility] 10-09-2021 13:11-0400 SaO2% (BldA) [Mass fraction] 98 % Geovanna Harkinschik TRIM [employer]SHAKE C[employer]TER Work Phone: [employer] [facility] 10-09-2021 13:11-0400 Systolic blood pressure 126 mm[Hg] Geovanna Chapaubachaz TRIM [employer]SHAKE [employer] Work Phone: [facility] [employer] [facility] 09-18-2021 09:38-0400 Body mass index (BMI) [Ratio] 32.26 kg/m2 Andrew Trinidad TRIM [employer]SHAKE [employer] Work Phone: [facility] 09-18-2021 09:38-0400 Body temperature 97.7 [degF] Andrew Trinidad TRIM [employer]KE [employer] Work Phone: [facility] 09-18-2021 09:38-0400 Body weight 93.44 kg Andrew Trinidad TRIM [employer]KE [employer] Work Phone: [facility] 09-18-2021 09:38-0400 Diastolic blood pressure 76 mm[Hg] Andrew Trinidad TRIM [employer]KE [employer] Work Phone: [facility] 09-18-2021 09:38-0400 Heart rate 56 /min Andrew Trinidad TRIM [employer]SHAKE [employer] Work Phone: [facility] 09-18-2021 09:38-0400 Systolic blood pressure 133 mm[Hg] Andrew Trinidad TRIM [employer]SHAKE [employer] Work Phone: [facility] 05-15-2018 15:08-0500 BMI (Body Mass Index) 39.63 kg/m2 [facility] Work Phone: 05-15-2018 15:08-0500 Body Temperature 97.11 [degF] [facility] Work Phone: 05-15-2018 15:08-0500 Height 170.2 cm [facility] Work Phone: 05-15-2018 15:08-0500 Weight 114.76 kg [facility] Work Phone: Encounters Encounter Date Encounter Type Care Provider Facility Start: 04-23-2024 End: 04-23-2024 Patient encounter procedure Liza Penn TRIM [employer]KE [employer] Work Phone: B[facility]ric [facility] Comment on above: Encounter for weight loss counseling (Primary Dx) Start: 04-23-2024 End: 04-23-2024 Postop follow up visit related to original px Liza Penn TRIM [employer]ER[employer]SHAKE C[employer]TER Work Phone: Bariatric Surgery [facility] Comment on above: S/P bypass gastrojej unostomy (Primary Dx); Class 1 obesity with serious comorbidity and body mass index (BMI) of 33.0 to 33.9 in adult, unspecified obesity type; Post-operative state; History of obstructive sleep apnea; History of morbid obesity Start: 04-23-2024 ambulatory CAYLA Sloan ility:[facility] Start: 04-21-2024 End: 04-21-2024 Office outpatient visit 40 minutes Sam UNGER Work Phone: [facility] Comment on above: Kidney replaced by t ransplant (Primary Dx); Abnormal blood chemistry; Aftercare following organ transplant; Immunosuppressed status; High risk medication use; Hydronephrosis, unspecified hydronephrosis type; Hyperkalemia Start: 04-21-2024 ambulatory SELF SELF Facility:[facility] Start: 04-21-2024 ambulatory CAYLA Sloan ility:[facility] Start: 04-21-2024 End: 04-21-2024 Subsequent hospital visit by physician Isabell Frank MD Work Phone: Imaging [facility] Comment on above: Arrived Start: 04-21-2024 End: 04-21-2024 Office consultation new/estab patient 60 min Isabell Frank MD Work Phone: [facility] [place] Comment on above: Urinary retention (P rimary Dx) Start: 04-21-2024 ambulatory CAYLA Sloan ili:[facility] Start: 04-09-2024 End: 04-09-2024 Patient encounter procedure Bina Sheets RD Work Phone: Bariatric Surgery [facility] Comment on above: Encounter for weight loss counseling (Primary Dx) Start: 04-09-2024 End: 04-09-2024 Postop follow up visit related to original px Griselda Gallegos MD Work Phone: Bariatric Surgery [facility] Comment on above: Gastroesophageal ref lux disease without esophagitis (Primary Dx) Start: 04-09-2024 ambulatory CAYLA Sloan ility:[facility] Start: 04-07-2024 End: 04-07-2024 ambulatory [facility] Work Phone: Start: 04-07-2024 End: 04-07-2024 Patient encounter procedure [facility] Work Phone: Start: 04-06-2024 End: 04-06-2024 Clinical Support Encounter Cayla Gonzalez TRIM [employer]ER[employer]SHAKE CUTTER Work Phone: [facility] Comment on above: Urinary retention (P rimary Dx) Start: 04-06-2024 ambulatory CAYLA Sloan ility:[facility] Start: 03-23-2024 End: 03-28-2024 Encounter for other preprocedural examination GRISELDA GALLEGOS Facility:[facility] Start: 03-23-2024 End: 03-28-2024 Evaluation and management of inpatient Griselda Gallegos MD Work Phone: [email or web address] Comment on above: Elective surgery Start: 03-23-2024 End: 03-28-2024 Patient encounter status Griselda Gallegos MD Work Phone: [facility] Start: 03-09-2024 ambulatory CAYLA Sloan ility:[facility] Start: 02-27-2024 Non-patient / Non-visit [facility] Work Phone: Start: 02-25-2024 ambulatory CAYLA Sloan ility:[facility] Start: 02-25-2024 End: 02-25-2024 Office consultation new/estab patient 60 min Kelsey Lozano TRIM [employer]SHAKE C[employer]TER Work Phone: Pre-Procedure Evaluation and Assessment [facility] Comment on above: Preop exam for inter nal medicine (Primary Dx); Gastroesophageal reflux disease without esophagitis; History of surgery; Essential hypertension; PFO (patent foramen ovale); DEMI (obstructive sleep apnea); Allergic rhinitis, unspecified seasonality, unspecified trigger; Former smoker; History of hyperparathyroidism; -donor kidney transplant; History of radical nephrectomy; Depression, unspecified depression type; Anxiety disorder, unspecified type; Bilateral lower extremity edema; H/O gastric sleeve Start: 02-25-2024 End: 02-25-2024 Patient encounter status Kelsey Lozano TRIM [employer]ER[employer]SHAKE CUTTER Work Phone: [facility] Work Phone: Start: 02-25-[address] [facility] ility:[facility] Start: 02-24-2024 End: 02-24-2024 ambulatory [facility] Work Phone: Start: 02-24-2024 End: 02-24-2024 Patient encounter procedure [facility] Work Phone: Start: 02-20-2024 End: 02-20-2024 Patient encounter procedure Griselda Gallegos MD Work Phone: Bariatric Surgery [facility] Comment on above: Encounter for weight loss counseling (Primary Dx) Start: 02-20-2024 End: 02-20-2024 Office outpatient visit 15 minutes Griselda Gallegos MD Work Phone: Bariatric Surgery [facility] Comment on above: Gastroesophageal ref lux disease without esophagitis (Primary Dx); Morbid obesity Start: 02-20-2024 ambulatory SELF SELF Facility:[facility] Start: 02-07-2024 ambulatory ANNE-MARIE Sloan ility:[facility] Start: 01-15-2024 End: 01-15-2024 Office outpatient visit 25 minutes Rodrigo Saravia MD Work Phone: [facility] Comment on above: Morbid obesity (Prim gina Dx); Acute right ankle pain; Gastroesophageal reflux disease without esophagitis; Benign hypertension; DEMI (obstructive sleep apnea) Start: 01-15-2024 ambulatory SELF SELF [facility] Start: 12-31-2023 ambulatory LIZA PENN Facility:[facility] Start: 12-25-2023 End: 12-25-2023 Office consultation new/estab patient 60 min Cait Richardson MD Work Phone: [facility] [place] Comment on above: Obstructive sleep ap hu (adult) (pediatric) [G47.33] (Primary Dx) Start: 12-25-2023 ambulatory SELF SELF Facility:[facility] Start: 12-04-2023 End: 12-04-2023 Office outpatient visit 25 minutes Rodrigo Saravia MD Work Phone: [facility] Comment on above: Gastroesophageal ref lux disease without esophagitis (Primary Dx); Seborrheic dermatitis; Tinea pedis, unspecified laterality; Morbid obesity; Right ear impacted cerumen Start: 12-04-2023 ambulatory SELF SELF [facility] Start: 11-21-2023 ambulatory [facility] Start: 11-20-2023 ambulatory [facility] Start: 11-15-2023 End: 11-15-2023 Patient encounter procedure [facility] Sleep Therapist Sleep Medicine [facility] Comment on above: S/P laparoscopic sle pearl gastrectomy; History of obstructive sleep apnea Obstructive sleep ap hu (adult) (pediatric) [G47.33] (Primary Dx); S/P laparoscopic sleeve gastrectomy; History of obstructive sleep apnea Start: 11-15-2023 ambulatory LIZA PENN Facility:[facility] Start: 11-08-2023 End: 11-08-2023 Documentation procedure [facility] Start: 09-30-2023 ambulatory LIZA PENN Facility:[facility] Start: 09-30-2023 End: 09-30-2023 Office outpatient visit 40 minutes Liza Penn TRIM [employer] Work Phone: Bariatric Surgery [facility] Comment on above: Gastroesophageal [...] Start: 09-30-2023 End: 09-30-2023 Patient encounter status Liza Penn TRIM [employer]KE [employer]TER Work Phone: [facility] Start: 09-30-2023 ambulatory LIZA PENN Facility:[facility] Start: 08-01-2023 ambulatory SELF SELF Facility:[facility] Start: 07-29-2023 ambulatory SELF SELF Facility:[facility] Start: 2023 ambulatory [facility] Tomas ROGERIOROSANA Facility:[facility] Start: 2023 End: 2023 Subsequent hospital visit by physician Ivelisse Sparks MD Work Phone: [facility] Start: 05-28-2023 End: 05-28-2023 Office outpatient visit 15 minutes Aliza Davis MD Work Phone: [facility] [place] Comment on above: Lentigines (Primary Dx); Skin cancer screening; Actinic skin damage; SK (seborrheic keratosis); [place] angioma; Melanocytic nevus of lower extremity including hip, unspecified laterality; Melanocytic nevi of trunk; Melanocytic nevus of upper extremity, unspecified laterality; Neoplasm of uncertain behavior of skin Start: 05-28-2023 ambulatory SELF SELF Facility:[facility] Start: 05-06-2023 ambulatory [facility] Start: 04-30-2023 ambulatory [facility] Start: 04-19-2023 End: 04-19-2023 Subsequent hospital visit by physician Javan Diego DPM Work Phone: [facility] [facility] Comment on above: Arrived Start: 04-19-2023 End: 04-19-2023 Office outpatient visit 25 minutes Javan Diego DPM Work Phone: [facility] Comment on above: Right foot pain (Alesia david Dx); Sprain of right ankle, unspecified ligament, initial encounter Start: 04-19-2023 ambulatory [facility] Start: 04-16-2023 End: 04-16-2023 Office outpatient visit 25 minutes [facility]-SHAKE CUTTER Work Phone: [facility] Comment on above: Acute right ankle pa in (Primary Dx); Sprain of right medial ankle joint, initial encounter Start: 04-16-2023 ambulatory [facility] Start: 03-10-2023 End: 03-11-2023 Emergency department patient visit Ilia Shaffer MD Work Phone: [facility] Medicine Start: 12-10-2022 End: 12-10-2022 Office outpatient visit 25 minutes Liza Penn TRIM [employer]ER[employer]SHAKE C[employer]TER Work Phone: Bariatric Surgery [facility] Comment on above: Class 2 severe obesi ty with serious comorbidity and body mass index (BMI) of 36.0 to 36.9 in adult, unspecified obesity type (Primary Dx); Gastroesophageal reflux disease without esophagitis; S/P laparoscopic sleeve gastrectomy Start: 10-29-2022 End: 10-29-2022 Office outpatient visit 25 minutes [facility]-SHAKE CUTTER Work Phone: [facility] Comment on above: Dog bite, initial en counter (Primary Dx); Encounter for post surgical wound check Start: 10-26-2022 End: 10-30-2022 ambulatory [facility] Start: 10-26-2022 End: 10-26-2022 Office outpatient visit 15 minutes Mary Moreira PA-C Work Phone: [facility] [place] Comment on above: Dog bite of right brooks nd with infection, initial encounter (Primary Dx) Start: 10-24-2022 End: 10-24-2022 Emergency department patient visit Maico Hernadez MD Work Phone: [facility] Emergency Medicine Start: 09-02-2022 End: 09-02-2022 ambulatory [facility] Start: 09-02-2022 End: 09-02-2022 Office outpatient visit 15 minutes Jayshree Vilchis SHAKE CUTTER Work Phone: [facility] Comment on above: Sinusitis, unspecifi ed chronicity, unspecified location (Primary Dx); Acute conjunctivitis of both eyes, unspecified acute conjunctivitis type Start: 08-30-2022 End: 08-30-2022 ambulatory JAYSHREE [facility] Start: 08-30-2022 End: 08-30-2022 Office outpatient visit 15 minutes Jayshree Vilchis SHAKE CUTTER Work Phone: [facility] Comment on above: Viral URI (Primary D x) Start: 04-21-2022 End: 04-21-2022 Emergency department patient visit Raheem Archuleta MD Work Phone: [facility] Emergency Medicine Start: 04-20-2022 End: 04-20-2022 ambulatory [facility] Start: 03-02-2022 End: 03-02-2022 Office outpatient visit 25 minutes Geovanna Tone Gonzales TRIM [employer]SHAKE CUTTER Work Phone: [facility] Comment on above: Low testosterone in male (Primary Dx); Acute bacterial conjunctivitis of right eye Start: 01-08-2022 End: 01-08-2022 Office outpatient visit 15 minutes Geovanna Tone Gonzales TRIM [employer]SHAKE C[employer]TER Work Phone: [facility] Comment on above: Erectile dysfunction , unspecified erectile dysfunction type (Primary Dx); Gastroesophageal reflux disease without esophagitis; Environmental and seasonal allergies Start: 01-04-2022 End: 01-04-2022 Office consultation new/estab patient 60 min Jennifer Marrufo DO Work Phone: Pre-Procedure Evaluation and Assessment [facility] Comment on above: Preop exam for inter nal medicine (Primary Dx); Polycystic kidney disease; -donor 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/25/2016; Immunosuppression; S/P laparoscopic sleeve gastrectomy; BPH with obstruction/lower urinary tract symptoms Start: 01-04-2022 End: 01-04-2022 Patient encounter status Jennifer Stanley Marrufo DO Work Phone: Pre-Procedure Evaluation and Assessment [facility] Start: 11-30-2021 End: 11-30-2021 Office outpatient new 45 minutes Karon Howard MD Work Phone: Division [facility] Urological Surgery at [facility] Comment on above: Polycystic kidney di sease (Primary Dx) Start: 10-26-2021 End: 10-26-2021 Office outpatient new 45 minutes Suzie Giraldo MD, PhD Work Phone: [facility] Trans[facility] Comment on above: Kidney replaced by t ransplant (Primary Dx); Long-term use of immunosuppressant medication; Aftercare following organ transplant; Abnormal blood chemistry; Immunosuppressed status; High risk medication use; Other general symptoms and signs Start: 10-12-2021 End: 10-12-2021 Subsequent hospital visit by physician Geovanna Gonzales APRN-SHAKE CUTTER Work Phone: [facility] Diagnostic Radiology Comment on above: Arrived Start: 10-09-2021 End: 10-09-2021 Office outpatient visit 25 minutes Geovanna Gonzales TRIM [employer]SHAKE C[employer]TER [facility] Comment on above: Polycystic kidney di sease (Primary Dx); Acute bilateral low back pain without sciatica; Erectile dysfunction, unspecified erectile dysfunction type; -donor 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/25/2016; Lack of sexual desire Start: 09-18-2021 End: 09-18-2021 Office outpatient visit 15 minutes Andrew Trinidad TRIM SAWYER-SHAKE CUTTER Work Phone: [facility] Comment on above: Kidney replaced by t ransplant (Primary Dx); Abnormal blood chemistry; Immunosuppressed status; Aftercare following organ transplant; High risk medication use Start: 04-02-2019 End: 07-07-2019 Patient encounter status Andrew Trinidad TRIM SAW[employer]ER-SHAKE CUTTER Work Phone: [facility] Start: 04-02-2019 End: 07-07-2019 Preprocedural examination done Andrew Amos TRIM SAWYER-SHAKE CUTTER Work Phone: [facility] Start: 08-06-2018 End: 08-06-2018 Patient encounter procedure Geovanna Gonzales Facility:[facility] Start: 06-18-2018 Patient encounter procedure [facility] Start: 05-27-2018 End: 05-27-2018 Patient encounter procedure Ari Ireland Work Phone: [facility] Comment on above: Arrived Start: 05-20-2018 End: 05-20-2018 Patient encounter Maggi Mcdaniels [facility] Start: 05-15-2018 Patient encounter procedure [facility] Start: 05-15-2018 End: 05-15-2018 Office outpatient visit 25 minutes Ari Ireland Work Phone: [facility] Comment on above: Osteoarthritis of ri ght knee, unspecified osteoarthritis type (Primary Dx); Chronic pain of right knee Start: 05-15-2018 End: 05-15-2018 Patient encounter procedure Ari Ireland Work Phone: [facility] Start: 01-29-2018 Patient encounter procedure NARGIS GOLDMAN [facility] Start: 01-22-2018 Patient encounter procedure ROSY Cid [facility] Start: 01-15-2018 Patient encounter procedure ROSY Cid [facility] Start: 01-28-2017 End: 01-29-2017 Ambulatory [facility] Start: 01-21-2017 End: 01-22-2017 Ambulatory [facility] Start: 01-14-2017 End: 01-15-2017 Ambulatory PROVIDER UNKNOWN [facility] Start: 01-07-2017 End: 01-08-2017 Ambulatory PROVIDER UNKNOWN [facility] Start: 12-31-2016 End: 01-01-2017 Ambulatory PROVIDER UNKNOWN [facility] Procedures Date Procedure Procedure Detail Performing Clinician Start: 04-23-2024 H/O: 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 S/P bypass gastrojejunostomy Liza Penn TRIM [employer]SHAKE CUTTER Work Phone: Start: 04-21-2024 Creatinine blood Alesiadanish Abhishek UNGER Work Phone: Start: 04-21-2024 Us trnsplnt kidney real time w/image docmtn Isabell Frank MD Work Phone: Start: 04-21-2024 Urnls dip stick/tablet rgnt auto w/o microscopy Isabell Frank MD Work Phone: Start: 03-28-2024 Assay of magnesium Jamel Uriarte MD Work Phone: Start: 03-27-2024 Drug screen quantitative tacrolimus Lauren Roman [facility] Work Phone: Start: 03-27-2024 Assay of magnesium Jamel Uriarte MD Work Phone: Start: 03-27-2024 Drug screen quantitative tacrolimus Jamel Uriarte MD Work Phone: Start: 03-26-2024 CONTINUOUS CARDIAC MONITORING STRIP Other Other Start: 03-26-2024 Blood count complete automated Jamel keenan MD Work Phone: Start: 03-26-2024 CONTINUOUS CARDIAC MONITORING STRIP Other Other Start: 03-26-2024 Assay of magnesium Jamel Uriarte MD Work Phone: Start: 03-26-2024 Drug screen quantitative tacrolimus Jyotsna Bahena MD Work Phone: Start: 03-25-2024 Blood count complete automated Jesus Tonja daly MD Work Phone: Start: 03-25-2024 CBC AND ELECTRONIC DIFF Griselda angel MD Work Phone: Start: 03-25-2024 Complete blood count with white cell differential, automated Griselda Gallegos MD Work Phone: Start: 03-25-2024 Us trnsplnt kidney real time w/image docmatthewn Jamel Uriarte MD Work Phone: Start: 03-25-2024 Assay of magnesium Griselda Gallegos MD Work Phone: Start: 03-25-2024 CONTINUOUS CARDIAC MONITORING STRIP Other Other Start: 03-25-2024 End: 03-25-2024 Antibody screen Griselda Gallegos MD Work Phone: Comment on above: Performed By: #### HEMOGC #### [facility] ([facility]) [address] [place] [address] Start: 03-25-2024 Assay of magnesium Jamel Uriarte MD Work Phone: Start: 03-25-2024 Drug screen quantitative tacrolimus Griselda Gallegos MD Work Phone: Start: 03-25-2024 PREPARE TO TRANSFUSE RED BLOOD CELLS Jesus Mck[place] MD Work Phone: Start: 03-25-2024 CONTINUOUS CARDIAC MONITORING STRIP Other Other Start: 03-25-2024 Assay of magnesium Jamel Uriarte MD Work Phone: Start: 03-25-2024 Drug screen quantitative tacrolimus Jyotsna Bahena MD Work Phone: Start: 03-24-2024 Drug screen quantitative tacrolimus Jyotsna Bahena MD Work Phone: Start: 03-24-2024 Potassium serum plasma/whole blood Hayley Alcantar MD Work Phone: Start: 03-24-2024 CONTINUOUS CARDIAC MONITORING STRIP Other Other Start: 03-24-2024 trnsplnt kidney real time w/image docmtn Jamel Uriarte MD Work Phone: Start: 03-24-2024 Potassium serum plasma/whole blood Hayley Alcantar MD Work Phone: Start: 03-24-2024 Assay of magnesium Jyotsna Bahena MD Work Phone: Start: 03-23-2024 CONTINUOUS CARDIAC MONITORING STRIP Other Other Start: 03-23-2024 CONTINUOUS CARDIAC MONITORING STRIP Other Other Start: 03-23-2024 CARDIAC RHYTHM Other Other Start: 03-23-2024 End: 03-23-2024 Esophagogastroduodenoscopy transoral diagnostic Griselda Gallegos MD Work Phone: Start: 03-23-2024 End: 03-23-2024 Unlisted laparoscopic procedure stomach Griselda Gallegos MD Work Phone: Start: 03-23-2024 Basic metabolic panel calcium total Griselda Gallegos MD Work Phone: Start: 03-23-2024 Glucose measurement, blood Griselda swann MD Work Phone: Start: 02-25-2024 Antibody screen Kelsey Lozano [employer]IM [employer]SHAKE CUTTER Work Phone: Start: 02-25-2024 Antibody screen CAYLA VELAZQUEZ Comment on above: Performed By: #### XMPO #### [facility] (DEFAULT) [address] [place] [address] Start: 02-25-2024 Blood typing serologic abo Kelsey villarreal [employer]IM [employer]SHAKE C[employer]TER Work Phone: Start: 02-25-2024 CBC AND ELECTRONIC DIFF Kelsey Lozano [employer]IM [employer]KE [employer]TER Work Phone: Start: 02-25-2024 Complete blood count with white cell differential, automated Kelsey Lozano [employer]IM [employer]SHAKE C[employer]TER Work Phone: Start: 02-25-2024 Comprehensive metabolic panel Kelsey huizar [employer]IM [employer]SHAKE C[employer]TER Work Phone: Start: 12-31-2023 Follow-up visit Follow-up LIZA PENN Start: 12-04-2023 Removal impacted cerumen instrumentation elielat Rodrigo Saravia MD Work Phone: Start: 2023 INTERVENTIONAL UPPER ENDOSCOPY Liza Penn TRIM [employer]ER[employer]SHAKE CUTTER Work Phone: Start: 03-10-2023 End: 03-10-2023 Radex ankle complete minimum 3 views Ilia Shaffer MD Work Phone: Start: 10-16-2022 Lipid 1996 panel - Serum or Plasma Maico Hernadez MD Work Phone: Start: 01-04-2022 Antibody screen Jennifer Marrufo DO Work Phone: Start: 01-04-2022 Blood typing serologic abo Jennifer Angel Skin ner DO Work Phone: Start: 01-04-2022 PSA screening Charley Mccracken MD, PhD Work Phone: Start: 10-12-2021 Radex spine lumbosacral minimum 4 views Geovanna Wayne Trubachik TRIM [employer]SHAKE C[employer]TER Work Phone: Start: 10-12-2021 Us retroperitoneal real time w/image complete Geovanna Wayne Trubachik TRIM [employer]SHAKE C[employer]TER Work Phone: Start: 10-09-2021 Urnls dip stick/tablet rgnt auto w/o microscopy Egovanna A Trubachik [employer]IM [employer]SHAKE CUTTER Work Phone: Start: 09-25-2021 Lipid 1996 panel - Serum or Plasma Geovanna ChapaBooxmediachik TRIM [employer]ER[employer]SHAKE CUTTER Work Phone: Start: 05-01-2021 Lipid 1996 panel - Serum or Plasma Andrew Trinidad TRIM [employer]SHAKE C[employer]TER Work Phone: Start: 08-12-2019 History of renal transplant History of renal transplant Adnrew Pringlewell TRIM SAWYER-SHAKE CUTTER Work Phone: Start: 06-18-2018 Follow-up visit Follow-up ARI IRELAND Start: 05-27-2018 End: 05-27-2018 CBC, PLATELETS PANEL, MANUAL ENTER Other Other Start: 05-27-2018 End: 05-27-2018 NA,K,CL,CO2,BUN,CREA,GLUC, MANUAL ENTER Other Other Start: 05-27-2018 End: 05-27-2018 MRI of knee Ari Ireland Work Phone: Start: 04-08-2018 Lipid 1996 panel - Serum or Plasma rAi Ireland Start: 09-25-2016 History of renal transplant -donor 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/25/2016 Andrew Trinidad TRIM [employer]SHAKE C[employer]TER Work Phone: H/O: surgery History of surgery Kelsey Lozano TRIM [employer]SHAKE CUTTER Work Phone: History of renal transplant Kidn ey replaced by transplant Andrew Trinidad TRIM [employer]SHAKE CUTTER Work Phone: History of renal transplant Dece ased-donor 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/25/2016 Geovanna Harkinsneftalyterrell TRIM SAWYER-SHAKE CUTTER Work Phone: History of renal transplant Dece ased-donor 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/25/2016 Geovanna A Trubachiterrell TRIM SAWYER[employer]SHAKE CUTTER Work Phone: History of renal transplant Kidn ey replaced by transplant Suzie Giraldo MD, PhD Work Phone: History of renal transplant Dece ased-donor 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/25/2016 Jennifer Marrufo DO Work Phone: History of renal transplant Hist ory of kidney transplant History of renal transplant Dece ased-donor kidney transplant Kelsey Lozano TRIM SAWYER-SHAKE CUTTER Work Phone: History of renal transplant Kidn ey replaced by transplant Sam UNGER Work Phone: Plan of Treatment Date Care Activity Detail Author Start: 2032 PNEUMOCOCCAL VACCINE SERIES (4 of 4 - PPSV23 or PCV20) PNEUMOCOCCAL VACCINE SERIES (4 of 4 - PPSV23 or PCV20) [facility] Start: 10-17-2027 Lipid panel LIPID SCREENING [facility] Start: 09-25-2026 Fasting lipid profile LIPID SCREENING [facility] Start: 09-25-2026 Lipid panel LIPID SCREENING [facility] Start: 07-10-2026 PNEUMOCOCCAL VACCINE SERIES (3 - PPSV23 if available, else PCV20) PNEUMOCOCCAL VACCINE SERIES (3 - PPSV23 if available, else PCV20) [facility] Start: 07-10-2026 PNEUMOCOCCAL VACCINE SERIES (3 - PPSV23 or PCV20) PNEUMOCOCCAL VACCINE SERIES (3 - PPSV23 or PCV20) [facility] Start: 07-10-2026 PNEUMOCOCCAL VACCINE SERIES (3 of 3 - PPSV23 or PCV20) PNEUMOCOCCAL VACCINE SERIES (3 of 3 - PPSV23 or PCV20) [facility] Start: 07-10-2026 PNEUMOCOCCAL VACCINE SERIES (3 of 4 - PPSV23) PNEUMOCOCCAL VACCINE SERIES (3 of 4 - PPSV23) [facility] Start: 07-10-2026 Pneumococcal Vaccine: Ped or At-Risk (3 - PPSV23 if available, else PCV20) Pneumococcal Vaccine: Ped or At-Risk (3 - PPSV23 if available, else PCV20) [facility] Start: 05-01-2026 Fasting lipid profile LIPID SCREENING [facility] Start: 01-04-2026 Tetanus vaccination [facility] Start: 10-29-2024 End: 10-29-2024 Patient encounter procedure 10/29/2024 9:45 AM EDT Office Visit [facility]plant [facility] [address] [place] [address] Kadeem rFanco MBBS [address] 1st [place] [address] [facility] [facility] Start: 06-19-2024 End: 06-19-2024 Patient encounter procedure 06/19/2024 8:00 AM EST Office Visit [facility] [address] [place] [address] Anne-Marie Smith, TRIM SAWYER-SHAKE CUTTER [address] [facility] [address] [place] [address] [facility] [place] Start: 06-02-2024 End: 06-02-2024 Patient encounter procedure 06/02/2024 1:30 PM EST Office Visit [facility] [place] [address] [place], [place] [id number] Aliza Davis MD [address] [facility] [address] [place], [place] [id number] [facility] [place] Start: 06-01-2024 End: 06-01-2024 Patient encounter procedure 06/01/2024 3:15 PM EST Office Visit Urology Outpatient Care [address] [place] [address] Isabell Frank MD [address] [facility] [address] [place] [address] [facility] [place] Start: 05-26-2024 End: 05-26-2024 Patient encounter procedure 05/26/2024 11:15 AM EST Office Visit [facility] [place] [address] [place] [address] Aliza Davis MD [address] [place] [address] [facility] [place] Start: 05-21-2024 End: 05-21-2024 Patient encounter procedure 05/21/2024 10:00 AM EST Office Visit Bariatric Surgery [facility] [address] [facility] [address] [place] [phone] Liza Penn, TRIM SAWYER-SHAKE CUTTER [address] [facility] [address] [place] [phone] Bariatric Surgery [facility] Start: 04-23-2024 End: 04-23-2024 Patient encounter procedure 04/23/2024 10:00 AM EDT Office Visit Bariatric Surgery [facility] [address] [facility] [address] [place] [phone] Liza Penn, TRIM SAWYER-SHAKE CUTTER [address] [facility] [address] [place] [address] Bariatric Surgery [facility] Start: 04-21-2024 End: 04-21-2024 Patient encounter procedure 04/21/2024 3:00 PM EDT Office Visit [facility] [address] [place] [address] Sam Weiss MBBS [address] [address] [facility] Start: 04-21-2024 End: 04-21-2025 ALLOSCREEN RECIPIENT (POST TX PRA) [facility] Comment on above: Expected: 04/21/2024, Expires: Start: 04-21-2024 End: 04-21-2025 BK VIRUS DNA QN, PCR, PLASMA [facility] Comment on above: Expected: 04/21/2024, Expires: Start: 04-21-2024 End: 04-21-2025 CMV BY PCR, QUANTITATIVE, BLOOD [facility] Comment on above: Expected: 04/21/2024, Expires: Start: 04-16-2024 Prostate specific antigen measurement PROSTATE CANCER SCREENING DISCUSSION [facility] Start: 04-16-2024 Screening for malignant neoplasm of colon COLORECTAL CANCER SCREENING DISCUSSION [facility] Start: 04-16-2024 End: 04-16-2024 Patient encounter procedure 04/16/2024 9:00 AM EDT Office Visit [facility] [address] [place] [address] Rodrigo Saravia MD [address] [place] [address] [facility] Start: 04-09-2024 End: 04-09-2024 Patient encounter procedure Bariatric [facility] Start: 03-27-2024 End: 03-27-2025 CHEM 7 (LYTES,BUN,CREA,GLUC) CHEM 7 (LYTES,BUN,CREA,GLUC) Lab Routine Hydronephrosis, unspecified hydronephrosis type Hyperkalemia Expected: 03/27/2024, Expires: 03/27/2025 [facility] Comment on above: Expected: 03/27/2024, Expires: Start: 03-23-2024 End: 03-23-2024 Esophagogastroduodenoscopy transoral diagnostic EGD DIAGNOSTIC Gastroesophageal reflux disease without esophagitis Morbid obesity 03/23/2024 10:20 AM EDT [facility] Start: 03-23-2024 End: 03-23-2024 Evaluation and management of inpatient MARY ANNE Comment on above: Gastroesophageal reflux disease without esophagitis CONVERSION SLEEVE TO MAY-EN-Y GASTRIC BYPASS LAPAROSCOPIC Start: 03-23-2024 End: 03-23-2024 Unlisted laparoscopic procedure stomach CONVERSION SLEEVE TO MAY-EN-Y GASTRIC BYPASS LAPAROSCOPIC Gastroesophageal reflux disease without esophagitis Morbid obesity 03/23/2024 10:20 AM EDT [facility] Start: 03-09-2024 End: 03-09-2024 ambulatory 03/09/2024 11:30 AM EDT Pre-Operative Nurse Assessment Telehealth Pre Procedure Preparation [address] [place] [address] Trisha Bass RN Telehealth Pre Procedure Preparation Start: 03-01-2024 Influenza vaccination INFLUENZA VACCINE (#1) [facility] Start: 02-26-2024 End: 04-26-2024 CHEM 6 (LYTES, BUN CREA) CHEM 6 (LYTES, BUN CREA) Lab Routine Preop exam for internal medicine Expected: 02/26/2024, Expires: 04/26/2024 [facility] Comment on above: Expected: 02/26/2024, Expires: Start: 02-26-2024 End: 04-26-2024 URINALYSIS REFLEX TO CULTURE URINALYSIS REFLEX TO CULTURE Fluids Routine Preop exam for internal medicine Expected: 02/26/2024, Expires: 04/26/2024 [facility] Comment on above: Expected: 02/26/2024, Expires: Start: 02-25-2024 End: 02-25-2024 Patient encounter procedure 02/25/2024 10:30 AM EDT Pre-Operative Assessment Pre-Procedure Evaluation and Assessment [facility] [address] [facility] [address] [place] [address] Kelsey Lozano, TRIM SAWYER-SHAKE CUTTER [address] [facility] [address] [place] [phone] Pre-Procedure Evaluation and Assessment [facility] Start: 02-07-2024 End: 02-07-2024 Telemedicine consultation with patient 02/07/2024 9:00 AM EDT Telemedicine Sleep [facility]patient Care [address] [place] [address] Anne-Marie Smith, TRIM SAWYER-SHAKE CUTTER [address] [place] [address] [facility] [place] Start: 01-15-2024 End: 01-14-2025 XR Ankle - right 3 Views XR ANKLE RIGHT 3+ VIEWS Imaging Routine Acute right ankle pain Expected: 01/15/2024, Expires: 01/14/2025 [facility] Comment on above: Expected: 01/15/2024, Expires: Start: 01-15-2024 End: 01-15-2024 Patient encounter procedure 01/15/2024 11:00 AM EDT Office Visit [facility] [address] [place] [address] Rodrigo Saravia MD [address] [place] [address] [facility] Start: 01-08-2024 End: 01-08-2024 Patient encounter procedure 01/08/2024 11:00 AM EDT Office Visit [facility] [address] [place] [address] Cait Richardson MD [address] [place] [address] [facility] [place] Start: 12-31-2023 End: 12-31-2023 Telemedicine consultation with patient 12/31/2023 1:30 PM EDT Telemedicine Bariatric [facility] [address] [facility] [address] [place] [address] Liza Penn, TRIM SAWYER-SHAKE CUTTER [address] [place] [address] [place] [address] [facility] Start: 12-04-2023 End: 12-04-2023 Patient encounter procedure 12/04/2023 11:00 AM EDT Office Visit [facility] [address] [place] [address] Rodrigo Saravia MD [address] [place] [address] [facility] Start: 10-01-2023 End: 09-29-2024 [address]night [address]xim[address] [place] [address] [facility] SLEEP STUDY [place] - OFFICE PERFORMED Routine S/P laparoscopic sleeve gastrectomy History of obstructive sleep apnea Expected: 10/01/2023, Expires: 09/29/2024 [facility] Comment on above: Expected: 10/01/2023, Expires: Start: 09-30-2023 End: 09-29-2024 NICOTINE AND METABOLITES,SERUM [facility] Comment on above: Expected: 09/30/2023, Expires: Start: 09-30-2023 End: 09-30-2024 VITAMIN A [facility] Comment on above: Expected: 09/30/2023, Expires: Start: 09-30-2023 End: 09-30-2024 VITAMIN B1 [facility] Comment on above: Expected: 09/30/2023, Expires: Start: 07-08-2023 COVID-19 VACCINE ( season) COVID-19 VACCINE () [facility] Start: 06-26-2023 COVID-19 VACCINE ( season) COVID-19 VACCINE () [facility] Comment on above: Postponed from 03/01/2023 (patient prefe rence) Start: 06-26-2023 Zoster vaccine hzv live for subcutaneous use ZOSTER (SHINGLES) VACCINE (1 of 2) [facility] Comment on above: Postponed from 1986 (patient prefdahlia trevizo) Start: 2023 End: 2023 Patient encounter procedure 2023 9:30 AM EST Appointment [facility] [address] [facility] 2nd [place] [address] Ivelisse Sparks MD [address] [place] [phone] [facility] Start: 05-28-2023 End: 05-28-2023 Patient encounter procedure 05/28/2023 11:00 AM EST Office Visit [facility] [place] [address] [place] [address] Aliza Davis MD [address] [place], [place] [phone] [facility] [place] Start: 05-10-2023 End: 05-10-2023 ambulatory 05/10/2023 9:20 AM EST Rehab Services Visit [facility] [place] [address] [place] [address] Javan Diego, DPM [address] [place] [address] Landen Vallejo PTA [facility] [place] Start: 05-08-2023 End: 05-08-2023 ambulatory 05/08/2023 9:20 AM EST Rehab Services Visit [facility] [place] [address] [place] [address] Javan Diego, DPM [address] [place] [address] Landen Vallejo PTA [facility] [place] Start: 05-06-2023 End: 05-06-2023 ambulatory 05/06/2023 9:20 AM EST Rehab Services Visit [facility] [place] [phone] [place] [phone] Javan Diego DPM [address] [place] [address] Landen Vallejo PTA [facility] [place] Start: 05-03-2023 End: 05-03-2023 Patient encounter procedure 05/03/2023 1:00 PM EDT Appointment [facility] [address] [facility] 2nd [place] [address] Nahomy Santos MD [address] [facility] [address] [place] [phone] [facility] Start: 04-19-2023 End: 04-19-2023 Patient encounter procedure 04/19/2023 10:30 AM EDT Office Visit [facility] [address] [place] [address] Javan Diego DPM [address] [facility] [place] [address] [facility] Start: 04-08-2023 Fasting lipid profile LIPID SCREENING [facility] Work Phone: Start: 03-26-2023 End: 03-26-2023 Telemedicine consultation with patient 03/26/2023 3:00 PM EDT Telemedicine Bariatric Surgery [facility] [address] [place] [address] Liza Penn, TRIM SAWYER-SHAKE CUTTER [address] [place] [phone] Bariatric Surgery [facility] Start: 03-01-2023 Influenza vaccination [facility] Start: 01-07-2023 End: 01-07-2023 Telemedicine consultation with patient 01/07/2023 12:30 PM EDT Telemedicine Bariatric Surgery [facility] [address] [place] [phone] Liza Penn, TRIM SAWYER-SHAKE CUTTER [address] [facility] [address] [place] [address] Bariatric Surgery [facility] Start: 01-04-2023 Prostate specific antigen measurement PROSTATE CANCER SCREENING DISCUSSION [facility] Start: 11-30-2022 End: 11-30-2022 Patient encounter procedure 11/30/2022 Office Visit Dermatology Aliza Davis MD [address] [facility] [address] [place], [place] [phone] [facility] [place] Start: 11-06-2022 End: 11-06-2022 Patient encounter procedure 11/06/2022 Office Visit Transplant Surgery Payal Mahoney, TRIM SAWYER-SHAKE CUTTER [address] [place] [address] [facility] [place] [facility] Start: 11-05-2022 End: 11-05-2022 Telemedicine consultation with patient 11/05/2022 Telemedicine General Surgery Liza Penn, TRIM SAWYER-SHAKE CUTTER [address] [facility] [address] [place] [address] Bariatric Surgery [facility] Start: 09-20-2022 End: 09-20-2022 Patient encounter procedure 09/20/2022 Office Visit Transplant Surgery Colin Hooper MBBS [address] [place] [address] [facility] Start: 07-17-2022 End: 07-17-2022 Patient encounter procedure 07/17/2022 Office Visit Family Medicine Geovanna Gonzales TRIM [employer]WYER-SHAKE CUTTER [address] [place] [address] [facility] Start: 05-31-2022 End: 05-31-2022 Patient encounter procedure [facility] [place] Start: 03-30-2022 End: 03-02-2023 FREE TESTOSTERONE FREE TESTOSTERONE Lab Routine Low testosterone in male Expected: 03/30/2022, Expires: 03/02/2023 [facility] Comment on above: Expected: 03/30/2022, Expires: 3 Start: 03-30-2022 End: 03-02-2023 Testosterone [Mass/volume] in Serum or Plasma TESTOSTERONE Lab Routine Low testosterone in male Expected: 03/30/2022, Expires: 03/02/2023 [facility] Comment on above: Expected: 03/30/2022, Expires: 3 Start: 03-01-2022 Influenza vaccination [facility] Start: 02-08-2022 End: 02-08-2022 Patient encounter procedure 02/08/2022 Office Visit Urology Charley Mccracken MD, PhD [address] [place] [id number] Division of Urological Surgery at [facility] Start: 01-23-2022 End: 01-23-2022 Evaluation and management of inpatient CCCT [facility] Comment on above: Polycystic kidney disease NEPHRECTOMY OPEN Start: 01-23-2022 End: 01-23-2022 Nephrectomy w/prtl ureterect opn rib rescj compl NEPHRECTOMY OPEN Polycystic kidney disease 01/23/2022 7:15 AM EDT [facility] Start: 01-08-2022 End: 01-08-2022 Patient encounter procedure 01/08/2022 Office Visit Family Medicine Geovanna Gonzales, TRIM [employer]KE [employer]TER [address] [place] [address] [facility] Start: 12-12-2021 Colonoscopy COLORECTAL CANCER SCREENING DISCUSSION [facility] Start: 12-12-2021 Prostate specific antigen measurement PROSTATE CANCER SCREENING DISCUSSION [facility] Start: 12-12-2021 Screening for malignant neoplasm of colon COLORECTAL CANCER SCREENING DISCUSSION [facility] Start: 12-08-2021 End: 12-08-2021 Admission to same day surgery center 12/08/2021 Surgery Endoscopy Griselda Gallegos MD [address] [place] [phone] EGD DIAGNOSTIC [facility] Comment on above: EGD DIAGNOSTIC Start: 12-08-2021 End: 12-08-2021 Esophagogastroduodenoscopy transoral diagnostic EGD DIAGNOSTIC Gastroesophageal reflux disease without esophagitis S/P laparoscopic sleeve gastrectomy 12/08/2021 9:30 AM EDT [facility] Start: 12-08-2021 Subsequent hospital visit by physician 12/08/2021 Hospital Encounter Endoscopy Griselda Gallegos MD [address] [address] Gastroesophageal reflux disease without esophagitis [facility] Comment on above: Gastroesophageal reflux disease without esophagitis Start: 11-30-2021 End: 11-30-2021 Patient encounter procedure 11/30/2021 Office Visit Urology Karon Howard MD [address] [place] [address] Division of Urological Surgery at [facility] Start: 10-09-2021 End: 10-09-2022 FREE TESTOSTERONE FREE TESTOSTERONE Lab Routine Erectile dysfunction, unspecified erectile dysfunction type Lack of sexual desire Expected: 10/09/2021, Expires: 10/09/2022 [facility] Comment on above: Expected: 10/09/2021, Expires: Start: 10-09-2021 End: 10-09-2022 Testosterone [Mass/volume] in Serum or Plasma TESTOSTERONE Lab Routine Erectile dysfunction, unspecified erectile dysfunction type Lack of sexual desire Expected: 10/09/2021, Expires: 10/09/2022 [facility] Comment on above: Expected: 10/09/2021, Expires: 3 Start: 10-09-2021 End: 10-09-2022 US Kidney US RENAL Imaging Routine Polycystic kidney disease -donor 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/25/2016 Expected: 10/09/2021, Expires: 10/09/2022 [facility] Comment on above: Expected: 10/09/2021, Expires: 3 Start: 10-09-2021 End: 10-09-2022 XR Spine Lumbar and Sacrum 5 Views XR SPINE LUMBOSACRAL 5 VIEWS Imaging Routine Acute bilateral low back pain without sciatica Expected: 10/09/2021, Expires: 10/09/2022 [facility] Comment on above: Expected: 10/09/2021, Expires: 3 Start: 09-12-2021 COVID-19 VACCINE (3 - Booster for Jenna series) COVID-19 VACCINE (3 - Booster for Jenna series) [facility] Start: 09-12-2021 COVID-19 VACCINE (3 - Jenna risk series) COVID-19 VACCINE (3 - Jenna risk series) [facility] Start: 10-08-2020 COVID-19 VACCINE (2 - Jenna risk 3-dose series) COVID-19 VACCINE (2 - Jenna risk 3-dose series) [facility] Start: 10-08-2020 COVID-19 VACCINE (2 - Jenna risk series) COVID-19 VACCINE (2 - Jenna risk series) [facility] Start: 09-04-2018 End: 09-04-2018 Ambulatory 09/04/2018 Office Visit Transplant Surgery Colin Hooper, CORNEL [address] [place] [address] [facility] Post Transplant Office Start: 08-01-2018 End: 08-01-2018 Ambulatory 08/01/2018 Office Visit Orthopaedics Nargis Goldman, TRIM [employer] [address] [place] [address] [facility] Start: 07-22-2018 Prostate specific antigen measurement PROSTATE CANCER SCREENING DISCUSSION [facility] Work Phone: Start: 05-27-2018 End: 05-27-2018 Ambulatory 05/27/2018 Appointment Magnetic Resonance Imaging Ari Ireland MD [address] [place] [address] [phone] [facility] Start: 05-15-2018 Ambulatory 05/15/2018 Procedure Pass Orthopaedics [facility] Start: 03-01-2018 Influenza vaccination INFLUENZA VACCINE (#1) [facility] Work Phone: Start: 2017 Colonoscopy COLON CANCER SCREENING DISCUSSION [facility] Work Phone: Start: 2017 Protein mass conc COLON CANCER SCREENING DISCUSSION [facility] Work Phone: Start: 2017 Screening for malignant neoplasm of colon Flexible sigmoidoscopy [facility] Start: 2017 Zoster vaccine hzv live for subcutaneous use ZOSTER (SHINGLES) VACCINE (1 of 2) [facility] Start: 1986 Administration of herpes zoster vaccine Zoster Vaccines (1 of 2) [facility] Start: 1986 Hepatitis B vaccination HEP B VACCINE (1 of 3 - 19+ 3-dose series) [facility] Start: 1986 Zoster vaccine hzv live for subcutaneous use ZOSTER (SHINGLES) VACCINE (1 of 2) [facility] Start: 1985 Hepatitis C screening Hepatitis C Screening [facility] Start: 1982 HIV screening HIV Screening [facility] Start: 1980 HIV screening HIV SCREENING DISCUSSION [facility] Work Phone: Start: 1979 Depression screening using PHQ-9 (Patient Health Questionnaire 9) score Depression Screening (PHQ-2/9) [facility] Start: 1970 History and physical examination, annual for health maintenance Wellness Visit [facility] Start: 1967 Prostate specific antigen measurement PSA Level [facility] Start: 1967 Screening for malignant neoplasm of colon [facility] Bldr irrigation smpl lavage &/instlj WY BLDR IRRIGATION SMPL LAVAGE &/INSTLJ WY Charge Routine Urinary retention Ordered: 04/06/2024 [facility] Comment on above: Ordered: 04/06/2024 Comprehensive metabo lic 1999 panel - Serum or Plasma [facility] Comprehensive metabo lic 1999 panel - Serum or Plasma [facility] Ecg routine ecg w/le ast 12 lds w/i&r WY ELECTROCARDIOGRAM, COMPLETE WY - OFFICE PERFORMED Routine Preop exam for internal medicine Polycystic kidney disease -donor 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/25/2016 Immunosuppression S/P laparoscopic sleeve gastrectomy Ordered: 01/04/2022 [facility] Comment on above: Ordered: 01/04/2022 Ecg routine ecg w/le ast 12 lds w/i&r WY ECG ROUTINE ECG W/LEAST 12 LDS W/I&R WY - OFFICE PERFORMED Routine Preop exam for internal medicine History of surgery Ordered: 02/25/2024 [facility] Comment on above: Ordered: 02/25/2024 Esophagogastroduoden oscopy transoral diagnostic EGD DIAGNOSTIC Gastroesophageal reflux disease without esophagitis S/P laparoscopic sleeve gastrectomy [facility] End: 03-27-2024 GENERAL PROCEDURE GENERAL PROCEDURE Procedures Routine Once for 1 Occurrences starting 03/27/2024 until 03/27/2024 [facility] Work Phone: Comment on above: Once for 1 Occurrences starting 03/27/20 24 until 03/27/2024 Gaurav post-voiding re sidual urine&/bladder cap WY GAURAV POST-VOIDING RESIDUAL URINE&/BLADDER CAP WY Charge Routine Urinary retention Ordered: 04/06/2024 [facility] Comment on above: Ordered: 04/06/2024 Gaurav post-voiding re sidual urine&/bladder cap WY GAURAV POST-VOIDING RESIDUAL URINE&/BLADDER CAP WY Charge Routine Urinary retention Ordered: 04/21/2024 [facility] Comment on above: Ordered: 04/21/2024 MRI of knee MRI KNEE RIGHT W ITHOUT CONTRAST Routine Chronic pain of right knee Osteoarthritis of right knee, unspecified osteoarthritis type Ordered: 05/15/2018 [facility] Work Phone: Comment on above: Ordered: 05/15/2018 Orthotics mgmt & tra ing initial enctr ea 15 mins WY ORTHOTICS MGMT & TRAINJ INITIAL ENCTR EA 15 MINS WY - OFFICE PERFORMED Routine Right foot pain Sprain of right ankle, unspecified ligament, initial encounter Ordered: 04/19/2023 [facility] Comment on above: Ordered: 04/19/2023 End: 03-26-2024 PLACEMENT NEPHROSTOMY CATHETER PERCUTANEOUS W/ IMAGE GUIDANCE [facility] Work Phone: Comment on above: One Time for 1 Occurrences starting 03/02 until 03/26/2024 Polysomnography SCHEDULE HOME SL EEP STUDY PFT Routine S/P laparoscopic sleeve gastrectomy History of obstructive sleep apnea Obstructive sleep apnea (adult) (pediatric) Ordered: 09/30/2023 [facility] Comment on above: Ordered: 09/30/2023 WY REMOVE BRAY CATHETER WY CEE VE BRAY CATHETER WY - OFFICE PERFORMED Routine Urinary retention Ordered: 04/06/2024 [facility] Comment on above: Ordered: 04/06/2024 Radiography for bone length studies XR BONE LENGTH STUDY Routine Chronic pain of right knee 05/15/2018 3:03 PM [facility] Work Phone: Radiologic examination of knee X R KNEE RIGHT 4+ VIEWS Routine Chronic pain of right knee 05/15/2018 3:03 PM EST [facility] Work Phone: Shvg skin lesion 1 t runk/arm/leg diam 0.6-1.0 cm WY SHAV SKIN LES 0.6-1CM TRUNK,ARM,LEG WY Charge Routine Neoplasm of uncertain behavior of skin Ordered: 05/28/2023 [facility] Comment on above: Ordered: 05/28/2023 Standard ECG ECG ECG Routine S/P laparoscopic sleeve gastrectomy Vitamin D deficiency Iron deficiency Medication management Ordered: 09/30/2023 [facility] Comment on above: Ordered: 09/30/2023 SURG PATH REQUEST SURG PATH REQU EST Surg Path Routine Neoplasm of uncertain behavior of skin 05/28/2023 2:42 PM EST [facility] XR Ankle - right GE 3 Views [facility] XR Foot - right 3 Views XR FOOT RIGHT 3 VIEWS Imaging Routine Right foot pain 04/19/2023 10:49 AM EDT [facility] Work Phone: [facility] Immunizations Immunization Date Immunization Notes Care Provider Fa cili 05-13-2023 influenza virus vacc ine, unspecified formulation Rodrigo Saravia MD Work Phone: [facility] 07-10-2021 pneumococcal polysaccharide vaccine, 23 valent Andrew Amos [employer] Work Phone: [facility] 04-18-2021 influenza virus vacc ine, unspecified formulation Jennifer Marrufo DO Work Phone: [facility] 09-10-2020 COVID-19 vaccine, AD 26, Jenna 0.5 ML Face++ [employer] Work Phone: [facility] 09-12-2018 influenza, injectabl e, quadrivalent, preservative free Andrew [employer] Work Phone: [facility] 01-05-2016 tetanus and diphther ia toxoids, adsorbed, preservative free, for adult use (2 Lf of tetanus toxoid and 2 Lf of diphtheria toxoid) [facility] Work Phone: 12-30-2015 pneumococcal conjuga te vaccine, 13 valent [facility] Work Phone: Payers Date Payer Category Payer Medicare [id number] 2018 Self-pay 2013 Medicare [id number] 2013 Medicare [id number] 2013 Medicare [id number] 1967 Unknown [id number] 2.16. 840.1.241648.3.579.2.903 1967 Unknown [id number] 2.16. 840.1.153982.3.579.2.903 1967 Unknown [id number] 2.16. 840.1.368545.3.579.2.903 1967 Unknown [id number] 2.16. 840.1.118944.3.579.2.903 1967 Unknown [id number] 2.16.8 40.1.045070.3.579.2.983 1967 Unknown [id number] 2.16.8 40.1.922149.3.579.2.983 1967 Unknown [id number] 2.16.8 40.1.670945.3.579.2.983 1967 Unknown [id number] 2.16.8 40.1.570883.3.579.2.983 1967 Unknown [id number] 2.16.8 40.1.259778.3.579.2.983 1967 Unknown [id number] 2.16.8 40.1.278747.3.579.2.983 1967 Unknown [id number] 2.16.8 40.1.420194.3.579.2.983 1967 Unknown [id number] 2.16.8 40.1.535530.3.579.2.983 1967 Unknown [id number] 2.16.8 40.1.520570.3.579.2.983 1967 Unknown [id number] 2.16.8 40.1.503983.3.579.2.983 1967 Unknown [id number] 2.16. 840.1.000433.3.579.2.594 1967 Unknown [id number] 2.16. 840.1.894707.3.579.2.594 1967 Unknown [id number] 2.16. 840.1.896635.3.579.2.594 1967 Unknown [id number] 2.16. 840.1.122997.3.579.2.594 1967 Unknown [id number] 2.16. 840.1.857752.3.579.2.594 1967 Unknown [id number] 2.16. 840.1.800938.3.579.2.594 1967 Unknown [id number] 2.16. 840.1.030104.3.579.2.594 1967 Unknown [id number] 2.16. 840.1.504170.3.579.2.594 1967 Unknown [id number] 2.16 840.1.061094.3.579.2.594 1967 Unknown [id number] 2.16 840.1.886705.3.579.2.594 1967 Unknown [id number] 2.16. 840.1.795508.3.579.2.594 1967 Unknown [id number] 2.16. 840.1.510711.3.579.2.594 1967 Unknown [id number] 2.16. 840.1.090187.3.579.2.594 1967 Unknown [id number] 2.16 840.1.049126.3.579.2.594 1967 Unknown [id number] 2.16. 840.1.282565.3.579.2.594 1967 Unknown [id number] 2.16. 840.1.310214.3.579.2.594 1967 Unknown [id number] 2.16. 840.1.599745.3.579.2.594 1967 Unknown [id number] 2.16. 840.1.657929.3.579.2.594 1967 Unknown [id number] 2.16. 840.1.523363.3.579.2.594 1967 Unknown [id number] 2.16. 840.1.406381.3.579.2.594 1967 Unknown [id number] 2.16. 840.1.509488.3.579.2.594 1967 Unknown [id number] 2.16. 840.1.348285.3.579.2.594 1967 Unknown [id number] 2.16. 840.1.262680.3.579.2.594 1967 Unknown [id number] 2.16. 840.1.676847.3.579.2.594 Medicaid Medicaid [id number] [id number] Unknown [id number] 2.16.840 .1.853819.3.579.2.531 Social History Date Type Detail Facility Start: 05-15-2018 End: 02-20-2024 Tobacco smoking status NHIS Former smoker [facility] Work Phone: Start: 07-01-1982 End: 12-30-1999 History of tobacco use Current smoker [facility] Work Phone: Start: 07-01-1982 End: 12-30-1999 History of tobacco use Cigarette Smoker [facility] Work Phone: Start: 05-15-2018 End: 04-23-2024 Cigarettes smoked current (pack per day) - Reported [facility] Work Phone: Start: 1965 Sex Assigned At Not on file [facility] Work Phone: Start: 11-30-2016 End: 02-20-2024 Tobacco use and exposure Smokeless tobacco non-user [facility] Start: 08-17-2021 End: 12-25-2023 Alcohol intake Current non-drinker of alcohol (finding) [facility] Start: 09-08-2021 End: 10-27-2022 Exposure to SARS-CoV-2 (event) Not sure [facility] End: 07-01-1999 History of tobacco use Pipe Smoker [facility] Start: 01-21-2022 History SDOH Alcohol Comment none [facility] Start: 08-30-2022 End: 04-23-2024 Alcohol intake Ex-drinker (finding) [facility] Start: 09-02-2022 End: 04-23-2024 Tobacco use panel [facility] Adolescent depressio n screening assessment 0 [facility] Gender identity Identifies as ma le gender (finding) [facility] Start: 09-02-2018 Sexual orientation Heterosexual (alfredo telles) [facility] History of tobacco use Passive smoker [facility] Start: 1965 Sex Assigned At Male F [facility] Has the electric, gas, oil, or water company threatened to shut off services in your home in past 12Mo No [facility] (I/We) worried whether (my/our) food would run out before (I/we) got money to buy more. Never true [facility] NEGATED: Highlighted rowStart: NINF History of tobacco use Passive smoker [facility] Medical Equipment Procedure Code Equipment Code Equipment Origin al Text Equipment Identifier Dates [id number] Uh Covidien Mesh Open Skirt [id number] Start: 05-09-2017 [id number] Uh Covidien Mesh Open Skirt [id number] Start: 05-09-2017 [id number] Uh Covidien Mesh Open Skirt [id number] Start: 05-09-2017 [id number] Uh Covidien Mesh Open Skirt [id number] Start: 05-09-2017 [id number] Uh Covidien Mesh Open Skirt [id number] Start: 05-09-2017 Mesh Marlex 10in X 14in - [id number] Start: 02-27-2019 [id number] Covidiskinny Mesh Open Skirt [id number] Comment on above: Description: [id number] Covidiskinny Mesh Open Skirt [id number] Start: 05-09-2017 Comment on above: Description: [id number] X Goals Date Patient Goal Desired Activity /State Personal health goal Comment on above: Formatting of this n ote might be different from the original. Short Term Goal The patient will demonstrate good adherence and understanding to recommended home exercise program for maintenance of functional gains Wheel Cutter Goal Increase R ankle PF Strength to [...] and household activities. Clinical Notes 09-25-2016 to 04-23-2024 Bina Sheets, SHITAL - 04/23/2024 10:30 AM EDTAssessment & Plan Note - REYES Massey - 04/23/2024 10:20 AM ELVITHARSH Massey CNP - 04/23/2024 10:00 AM EDT Note Date & Type Note Facility 04-23-2024 History of Present illness Narrative Patient was referred to group underwriter by Liza Peralta CNP for step IV diet advancement. Patient is about 1 month s/p Sleeve gastrectomy to May-en-Y gastric bypass surgery. BMI: Estimated body mass index is 33.74 kg/m as calculated from the following: Height as of an earlier encounter on 04/23/24: 1.702 m (5' 7 ). Weight as of an earlier encounter on 04/23/24: 97.7 kg (215 lb 6.4 oz). Patient stated they have been tolerating step III diet well and denies any regular nausea, vomiting, abdominal pain/dumping. Pt said their current intake is at least 60 grams of protein and >64 oz fluid daily. Advanced to step IV, encouraging 60-80 gm of protein and >64oz of sugar free, decaf, and non-carbonated fluids. Discussed supplementing protein intake at meals/snacks. Advised to advance slowly with well-tolerated foods. Discussed continuing with pre-pao/multivitamin, 1,200-1,500 mg calcium citrate, and 500 mcg of vitamin B12. Patient states understanding of info presented. Malnutrition Assessment: Patient does not meet malnutrition criteria for diagnosis; *based on the AND/ASPEN Malnutrition Criteria 2012 NFPE not warranted at this time; deferred at this time. Learning Barriers Identified: can read and write adequately Understanding Demonstrated: Patient states full understanding Expected Adherence: Patient voices high motivation to learn and/or adhere to recommendations Health And Safety Coordinator resource utilized: No Spent 10 minutes with patient [id number] providing nutrition assessment and/or counseling/education and discussing step IV dietary guidelines. Bina Sheets MS, RDN, LD documented in this encounter [facility] 04-23-2024 Evaluation + Plan note Associated Problem(s): S/P bypass gastrojejunostomy 1 months post gastro-jejunostomy. Should now be following the Step [address] referral is desired by the provider/patient at this time. Labs will be checked 6 months post op, typically ordered at 2 month post op visit. Continue following with Cayla Gons[facility] Rx provided: n/a. Encouraged vitamin/mineral supplement use as appropriate. Continue PPI and carafate for a total of 3 mos post surgery & follow up if discontinuation not tolerated. Gallstone prophylaxis with ursodiol is not indicated s/p knual. Activity restrictions: No lifting more than 25 lbs until 2 mos post-op We recommend continuation PAP use until 6 months post-op & having sleep apnea re-assessed if not using, if symptoms change, or at 6 months or more post-op. [facility] 04-23-2024 Miscellaneous Notes Associated Problem(s): S/P bypass gastrojejunostomy 1 months post gastro-jejunostomy. Should now be following the Step [address] referral is desired by the provider/patient at this time. Labs will be checked 6 months post op, typically ordered at 2 month post op visit. Continue following with Cayla Gonsalez [facility] Rx provided: n/a. Encouraged vitamin/mineral supplement use as appropriate. Continue PPI and carafate for a total of 3 mos post surgery & follow up if discontinuation not tolerated. Gallstone prophylaxis with ursodiol is not indicated s/p kunal. Activity restrictions: No lifting more than 25 lbs until 2 mos post-op We recommend continuation PAP use until 6 months post-op & having sleep apnea re-assessed if not using, if symptoms change, or at 6 months or more post-op. documented in this encounter [facility] 04-23-2024 History of Present illness Narrative Images from the original note were not included. [facility] Surgical Follow-Up Note CC: Follow-up (Sleeve to May-En-Y 03/23/2024. Had some N/V 10 days ago, thinks it was eating too much, no problems since. Fluid intake 1 gallon per day, protein intake eats first every meal, 1 shake per day. Bowels working well. Exercise is walking .5-1 mile daily, Weight is down 15 lbs from last visit and DOS. ) HPI: Lino Fontenot is a patient with a history of bariatric surgery. Specific concerns identified today include: for bariatric surgery follow up. Problem S/P Bypass Gastrojejunostomy As of current visit, regarding common health conditions associated with obesity DEMI []using PAP [x]not using PAP []needs sleep f/u []resolved per study []did not have prior to diallo sx HTN [x]taking med(s) Renal protection []Off meds []did not have prior to diallo sx HLD []taking med(s) []Off meds [x]did not have prior to diallo sx GERD [x]taking med(s) Pantoprazole BID []Is < 90d post op []Off meds []did not have prior to diallo sx DM []Insulin []other med(s) []Off meds [x]did not have prior to diallo sx Weight Data: At time of gastroj conversion: 231 lbs 0 oz. At time of sleeve surgery: 249 lbs. 14 oz. Highest weight in the year prior to surgery: 261 lbs. 13 oz. Date: 07-07-19 He reports a goal weight of 170-175 pounds. Last weighed this in his 20s. Email on file: [email or web address] is not on surgical patient support group email list. Declines Today's Weight Wt Readings from Last 1 Encounters: 04/23/24 97.7 kg (215 lb 6.4 oz) BMI Readings from Last 1 Encounters: 04/23/24 33.74 kg/m Wt Readings from Last 3 Encounters: 04/23/24 97.7 kg (215 lb 6.4 oz) 04/21/24 98.6 kg (217 lb 4.8 oz) 04/21/24 97.4 kg (214 lb 11.2 oz) Total weight decrease since surgery: 16 lbs since gastroj ROS: Hydration/Nutrition: is drinking > 64 oz hydrating fluids; is eating 60 - 80 gm protein daily via 08/29- ; is not tracking intake. Supplements: per med list Activity: activity includes walking for 0.5-1 mile daily Constitutional: denies recent acute illness, fever or chills and denies fatigue; is not currently using CPAP. GI: Negative for abdominal pain, nausea , vomiting, diarrhea, constipation, flushing, dumping, and GERD ; Advocates a little nausea or sensation of food being stuck early post op - still getting adjusted to portions post-op ; Derm (positive if checked): [] hair loss [] rashes [] yeast infection [] Treatment including: Social History Tobacco Use Smoking status: Former Current packs/day: 0.00 Average packs/day: 1 pack/day for 20.0 years (20.0 ttl pk-yrs) Types: Cigarettes Start date: 07/01/1982 Quit date: 12/30/1999 Years since quittin.3 Passive exposure: Past Smokeless tobacco: Never Substance Use Topics Alcohol use: Not Currently Comment: none I have reviewed the patient's medical history in detail. Vital Signs BP 132/63 (BP Location: Left arm, BP Position: Sitting) Pulse 63 Temp 97.2 F (36.2 C) (Temporal) Resp 16 Ht 1.702 m (5' 7 ) Wt 97.7 kg (215 lb 6.4 oz) SpO2 100% Comment: toom air BMI 33.74 kg/m Smoking Status Former Exam Constitutional: They are in no acute distress. Cardiovascular: Normal rate, S1 and S2, No murmur heard. Pulmonary/Chest: Effort normal with no respiratory distress. Clear to auscultation bilaterally. Abdominal: soft, nontender, nondistended, no masses or organomegaly. Incisions healed. Neurological: Alert and cooperative. No focal abnormalities. Skin: Skin appears well perfused and intact. Psychiatric: Appropriate mood and affect for the clinical situation. Assessment/Plan S/P bypass gastrojejunostomy 1 months post gastro-jejunostomy. Should now be following the Step [address] referral is desired by the provider/patient at this time. Labs will be checked 6 months post op, typically ordered at 2 month post op visit. [facility] Rx provided: n/a. Encouraged vitamin/mineral supplement use as appropriate. Continue PPI and carafate for a total of 3 mos post surgery & follow up if discontinuation not tolerated. Gallstone prophylaxis with ursodiol is not indicated s/p kunal. Activity restrictions: No lifting more than 25 lbs until 2 mos post-op We recommend continuation PAP use until 6 months post-op & having sleep apnea re-assessed if not using, if symptoms change, or at 6 months or more post-op. He's following closely re: kidney health with his provider team, notes I was in appointments all day yesterday. Post bariatric lifestyle recommendations were reinforced, including adequate hydration (64 oz or more for most patients, mostly water), nutrition (60 - 80 gm protein daily; calorie/portion-controlled), activity (working toward >=150 min / wk including cardio and strength), healthy self-care and adequate sleep. We discussed importance of ongoing protein rich diet and resistance training to maintain healthy body composition. Please see Patient Instructions/MyChart and/or notes below for applicable patient education/goals. Disposition: patient with a history of vertical sleeve gastrectomy and gastro-jejunostomy conversion on 03/23/24 to follow up in 1 month for bariatric surgery follow up. 30 min clinic visit, reason: early post op with Kourtney Simon in Dr. Gallegos clinic to be scheduled by staff/patient. ACTIVITY TIME Direct communication with the patient 19 minutes Other patient care activities related to this service including chart/data review, coordination of care, and/or preparation of documentation. 5 minutes Total time spent on this service. 24 minutes LEARNING ASSESSMENT Learning needs identified: Yes Learner: patient Readiness to learn: No barriers; Ready to learn EDUCATION PLAN Educational packet: Yes Reviewed action plan and expected sequence of events for today s visit. Oriented to room and clinic environment Diet and exercise tracking reviewed and encouraged LEARNING RESPONSE Teaching method Verbal Response to teaching Applies knowledge LENGTH OF TIME TEACHING Time spent teaching [address] for diet review and recommendations documented in this encounter [facility] 04-21-2024 History of Present illness Narrative Images from the original note were not included. PREP SHEET FOR NEPHROLOGY CLINIC Patient Name: Lino Fontenot Blending Operator: Chris Curtis Date of Kidney Transplant: 09/25/2016 7 years 6 months S/P transplant Primary Disease: Polycystic Kidneys Transplant Email Campaign Manager: Kadeem Franco, Primary Care physician: Cayla Velazquez Last Transplant Appointment: 09/30/2023- Transferred his TXP care to local provider- Coordinator Notes: [facility] discharge 03/28/2024- who presented on 03/23/24 for elective sleeve gastrectomy conversion to May-en-Y gastric bypass. The patient tolerated the procedure well. Patient was found to have rising creatinine and low urine output, so he received a renal transplant ultrasound which revealed severe hydronephrosis. A bray catheter was placed and another ultrasound was performed shortly after which revealed minimal change in his hydronephrosis. He was taken to IR for nephrogram and potential nephrostomy tube placement, which revealed significant improvement in the hydronephrosis so no nephrostomy was placed. Patient also had increased creatinine at that time, and tacrolimus levels were elevated. Patient's tacrolimus was decreased to 4 mg bid. IMMUNOSUPPRESSION AND LABS: Current Immunosuppressive Medication(s) Immunosuppressive Agents Mycophenolate 200 MG/ML Recon Susp oral suspension Take 3.75 mL by mouth 2 times daily, at 0800 and 2000 for 14 days. Can go back to taking Myfortic after 14 days. Tacrolimus (PROGRAF) 1 MG capsule Take 6 capsules by mouth 2 times daily. Patient taking differently: Take 4 capsules by mouth 2 times daily. I/S levels: No results found for: CYCLOSPORIN , CYCLOSPORIN2 , [id number] , CYCLORAND No results found for: CYCLOSPORINE No results found for: SIROLIMUS , RAPAMUNE , RAPAMYCIN No results found for: EVEROLIMUS , EVRLMSTRGH , EVERTRGHMANE , EVRLMSRND Lab Results Component Value Date TACROLIMUS 6.7 03/27/2024 TACROLIMUS 7.8 03/27/2024 TACROLIMUS 8.5 03/26/2024 TACROTRGHMAN 6.6 10/16/2022 TACROTRGHMAN 5.9 04/05/2022 TACROTRGHMAN 3.8 09/25/2021 CHEMISTRY: Lab Results Component Value Date CREATSERUM 2.15 (H) 03/28/2024 CREATSERUM 2.24 (H) 03/27/2024 CREATSERUM 2.32 (H) 03/26/2024 HEMATOLOGY: Lab Results Component Value Date WBC 5.12 03/28/2024 WBC 5.55 03/27/2024 WBC 6.70 03/26/2024 Lab Results Component Value Date HGB 7.5 (L) 03/28/2024 HGB 7.5 (L) 03/27/2024 HGB 8.0 (L) 03/26/2024 IMMUNOLOGY: Lab Results Component Value Date CMVPCR Positive < 200 08/31/2019 CMVPCR positive <200 08/31/2019 CMVPCR Negative 07/08/2019 CMVPCR negative 07/08/2019 EBVBYPCR <2000 01/23/2017 EBVBYPCR <2000 11/21/2016 EBVBYPCR <2000 11/07/2016 BKVIRALP <500 06/05/2017 BKVIRALP <500 04/24/2017 BKVIRALP <500 03/27/2017 CURRENT MEDICATIONS: Alclometasone Dipropionate, Cetirizine, Flintstones Complete, Ketoconazole, Montelukast, Mycophenolate, OLANZapine, Pantoprazole, Polyethylene glycol, Sucralfate, Tacrolimus, Terbinafine, aspirin, carBAMazepine, escitalopram, magnesium oxide, rOPINIRole, and sildenafil citrate [place] [id number] [facility] [address] Change in lab frequency / new order today: no Labs needed in clinic today? no enter orders & screen shot Images from the original note were not included. Nursing Assessment In Clinic Patient is accompanied to clinic today by: self only Did patient require a wheelchair or medical transport for appointment: no Is patient employed: no (Needed for [employer] forms) VITALS BP Readings from Last 3 Encounters: 04/21/24 137/70 04/21/24 138/59 04/09/24 151/69 Pulse Readings from Last 3 Encounters: 04/21/24 72 04/21/24 60 04/09/24 61 Wt Readings from Last 6 Encounters: 04/21/24 98.6 kg (217 lb 4.8 oz) 04/21/24 97.4 kg (214 lb 11.2 oz) 04/09/24 104.8 kg (231 lb) 04/06/24 105.9 kg (233 lb 8 oz) 03/26/24 107.4 kg (236 lb 11.2 oz) 02/25/24 107.9 kg (237 lb 14.4 oz) Body mass index is 34.03 kg/m . Lab Results Component Value Date GLUCOSE neg 04/21/2024 Lab Results Component Value Date HGBA1C 5.6 11/20/2023 IMMUNOSUPPRESSION Current Immunosuppressive Medication(s) Immunosuppressive Agents Mycophenolate 200 MG/ML Recon Susp oral suspension Take 3.75 mL by mouth 2 times daily, at 0800 and 2000 for 14 days. Can go back to taking Myfortic after 14 days. Tacrolimus (PROGRAF) 1 MG capsule Take 6 capsules by mouth 2 times daily. Patient taking differently: Take 4 capsules by mouth 2 times daily. PREFERRED LAB AND PHARMACY: [facility] - [facility] Suresh BAGLEY. [address] [place] [address]Ambrose BAGLEY. [address] [place] [id number] [facility] [id number] - [place] [address] - [address] [facility] [address] [facility] [address] ROS and SCREEN: Chest Pain: negative Cough: negative SOB: negative Abd Pain: negative Nausea: negative Vomiting: negative Diarrhea: negative Constipation: negative Dysuria: negative; notes UOP has been baseline since hospital discharge. Edema: BLE edema Tremors: positive Headaches: negative Wound issues: negative Have a Primary Care provider? yes Cayla Banks in [place] Been seen in the last 12 months? yes QUESTIONS OR CONCERNS TO ADDRESS WITH PHYSICIAN: Notes he has had labs checked locally since hospital discharge, creatinine was 3.23 on 04/18/24. No tacrolimus level with that draw. Images from the original note were not included. Today we were happy to see Lino Fontenot at [facility] Post Transplant Office for evaluation and management of immunosuppression and associated conditions in the setting of solid organ transplantation. As you may be aware Mr. Fontenot is a 58 y.o. year-old male. He received an organ transplant from a Don[facility] after [facility] on 09/25/2016 (Kidney). The patient is currently 2765 days out from transplantation. 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 BL around 1.3-1.5. But starting last year looks like it has been progressing. Cr recently in 2s. Current IS Tac 6/6 and Myfortic 720. Hospital course complicated by hydronephrosis of the transplant kidney. He had low UOP and rising creatinine which did not improve with bray placement so he was going to have a nephrostomy tube placed, but was noted to have resolved hydronephrosis on the antegrade nephrostogram by IR and prompt drainage into the bladder, so no NT was placed. He was discharged with his bray catheter and this was removed on 04/06/24 after successful void trial in the urology clinic with a PVR of 2 cc. Plan for today - feeling well. Renal function on labs 2 days ago was 3.2 but labs from today at [facility] is improving to 2.35. he is still not at baseline of 1.7. We will obtain chem 7 next week to continue monitoring for improvement. UPC minimal. BK, alloscreen pending. No change in IS. Will follow with general nephrology and dermatology. US with improving hydronephrosis and follows with Dr. Frank who started him on flomax. The patient was last seen for follow-up at the [facility] on 04/21/24. We did review if the patient has had any changes in the past medical history, general state of health, hospitalizations, or visited the Emergency Room for any reason. The patient s problem, allergy and medication lists have been reviewed and updated today. REVIEW OF SYSTEMS: The patient currently endorses no complains and denies chest pain, shortness of breath, nausea or emesis. Otherwise all other systems are per HPI or negative. MEDICATIONS: Current Outpatient Medications Medication Sig aspirin 81 MG Chew Tab chewable tablet Chew 1 tablet daily every morning. Take this 1 to 2 hours after taking sucralfate slurry. carBAMazepine 100 MG Chew Tab Take 2 tablets daily in the morning and 3 tablets daily in the evening Cetirizine 10 MG tablet Take 1 tablet by mouth daily. (Patient taking differently: Take 1 tablet by mouth daily every morning.) escitalopram 20 MG tablet Take 1 tablet by mouth daily every morning. Flintstones Complete 18 MG Chew Tab Chew 1 tablet 2 times daily. magnesium oxide 400 (241.3 Mg) MG tablet Take 1 tablet by mouth 2 times daily. Montelukast 10 MG tablet Take 1 tablet by mouth daily. (Patient taking differently: Take 1 tablet by mouth daily every morning.) Mycophenolate sodium (MYFORTIC) [address] Take 3 tablets by mouth every 12 hours. OLANZapine 2.5 MG tablet Take 1 tablet by mouth at bedtime. Pantoprazole (Protonix) [address] tablet DR Take 1 tablet by mouth 2 times daily. Take 90 days after surgery for ulcer prevention, then stop taking rOPINIRole 0.5 MG tablet Take 1 tablet by mouth at bedtime. Sucralfate 1 g tablet Take 1 tablet by mouth 2 times daily (take before meals). Put pill into a tablespoon of water to create a slurry. Take for 90 days after surgery for ulcer prevention. Tacrolimus (PROGRAF) 1 MG capsule Take 6 capsules by mouth 2 times daily. (Patient taking differently: Take 4 capsules by mouth 2 times daily.) Tamsulosin HCl 0.4 MG capsule Take 1 capsule by mouth daily. Alclometasone Dipropionate 0.05 % Cream Apply 0.05 mg topically As directed as needed. Apply to affected area 1-2 times daily when skin flared Ketoconazole 2 % Cream cream Apply 1 Application topically daily as needed. Apply to affected area up to twice daily --> okay to use every day without breaks if needed Mycophenolate 200 MG/ML Recon Susp oral suspension Take 3.75 mL by mouth 2 times daily, at 0800 and 2000 for 14 days. Can go back to taking Myfortic after 14 days. Polyethylene glycol (MiraLax) 17 GM/SCOOP Powder powder Take 17 g by mouth daily as needed for Constipation. sildenafil citrate 100 MG tablet Take 0.5-1 tablets by mouth as needed for Erectile Dysfunction. Terbinafine 1 % Cream cream Place 1 Application on skin As directed as needed. Apply to affected area (feet) twice daily PHYSICAL EXAM: VITALS: Blood pressure 137/70, pulse 72, temperature 98.1 F (36.7 C), temperature source Temporal, weight 98.6 kg (217 lb 4.8 oz). GENERAL: Alert and oriented x 3 in no apparent Distress HEENT: Normocephalic, EOMI, Moist Oral Membranes, Neck Soft/Supple, No JVD or LAD CV: Regular Rhythm, Positive S1 / S2, Negative for Rubs PULM: Bilateral Breath Sounds. No Wheezes, Crackles, Rubs, Ronchi ABD: Soft, Non-Tender, Positive Bowel Sounds : Transplanted Graft Palpable. Non-Tender, Erythematous, or Warm EXT: Symmetric, Mobile, No Edema, No Cyanosis or Clubbing LABORATORY VALUES: WBC Count Date Value Ref Range Status 04/21/2024 6.63 3.73 - 10.10 K/uL Final Hemoglobin Date Value Ref Range Status 04/21/2024 9.5 (L) 13.4 - 16.8 g/dL Final Hematocrit Date Value Ref Range Status 04/21/2024 30.7 (L) 39.6 - 48.8 % Final Platelet Count Date Value Ref Range Status 04/21/2024 175 146 - 337 K/uL Final Sodium Date Value Ref Range Status 04/21/2024 138 135 - 145 mmol/L Final Chloride Date Value Ref Range Status 04/21/2024 106 98 - 108 mmol/L Final BUN Date Value Ref Range Status 04/21/2024 29 (H) 7 - 25 mg/dL Final Potassium Date Value Ref Range Status 04/21/2024 4.6 3.5 - 5.0 mmol/L Final HCO3 Date Value Ref Range Status 09/25/2016 25 mmol/L Final Creatinine Date Value Ref Range Status 04/21/2024 2.35 (H) 0.70 - 1.30 mg/dL Final Glucose Date Value Ref Range Status 04/21/2024 99 70 - 99 mg/dL Final PT Date Value Ref Range Status 03/27/2024 14.6 (H) 11.9 - 14.2 sec Final PTT Date Value Ref Range Status 03/27/2024 33.0 24.0 - 34.3 sec Final Total Protein Date Value Ref Range Status 02/25/2024 7.8 6.4 - 8.3 g/dL Final Albumin Date Value Ref Range Status 02/25/2024 4.6 3.5 - 5.0 g/dL Final AST Date Value Ref Range Status 02/25/2024 15 10 - 39 U/L Final ALT Date Value Ref Range Status 02/25/2024 13 10 - 52 U/L Final GGT Date Value Ref Range Status 02/09/2011 57 8 - 64 U/L Final Bilirubin Total Date Value Ref Range Status 02/25/2024 0.4 <1.5 mg/dL Final Calcium Date Value Ref Range Status 03/25/2024 8.7 8.6 - 10.5 mg/dL Final Phosphorous Date Value Ref Range Status 03/28/2024 2.8 2.2 - 4.6 mg/dL Final Magnesium Date Value Ref Range Status 03/28/2024 1.7 1.6 - 2.6 mg/dL Final ASSESSMENT AND PLAN: Encounter for aftercare post-transplant: Latest Creatinine Lab Results Component Value Date CREATSERUM 2.35 (H) 04/21/2024 CREATURINE 73.10 04/21/2024 Improving, follow BK and alloscreen No interventions are warranted at this time. Proteinuria: Last Urine Protein/Creatinine Ratio: PROTEIN/CREAT RATIO, URINE Date Value Ref Range Status 10/16/2022 0.4 Final Comment: REFERENCE RANGES <0.2 NORMAL 0.2-3.5 NON-NEPHROTIC >3.5 NEPHROTIC PROTEIN/CREATININE RATIO, MANUAL ENTER Date Value Ref Range Status 10/16/2022 0.4 Final Prot/Creat Ratio Date Value Ref Range Status 04/21/2024 0.055 mg/mg Final At Goal. An intervention is not indicated at this time. High Risk Medical Decision Making For Drug Therapy Requiring Intensive Monitoring For Toxicity Current Immunosuppressive medication(s) include: Current Immunosuppressive Medication(s) Immunosuppressive Agents Mycophenolate sodium (MYFORTIC) [address] Take 3 tablets by mouth every 12 hours. Tacrolimus (PROGRAF) 1 MG capsule Take 6 capsules by mouth 2 times daily. Patient taking differently: Take 4 capsules by mouth 2 times daily. Mycophenolate 200 MG/ML Recon Susp oral suspension Take 3.75 mL by mouth 2 times daily, at 0800 and 2000 for 14 days. Can go back to taking Myfortic after 14 days. I/S levels: Lab Results Component Value Date TACROLIMUS 6.7 03/27/2024 No Changes are warranted at this time. Will continue intensive monitoring for drug levels and toxicity via regularly scheduled laboratory assays given the narrow therapeutic index of the immunosuppressive drug therapy listed above. High risk for infection in setting of immunosuppression 1) BK, CMV pending 2) On bactrim 3) DSAs pending Hypertension: Stable Today in the clinic the blood pressure was BP Readings from Last 1 Encounters: 04/21/24 137/70 These values are acceptable. An intervention is not indicated at this time. Anemia of chronic kidney disease: Latest hemoglobin Hemoglobin Date Value Ref Range Status 04/21/2024 9.5 (L) 13.4 - 16.8 g/dL Final Acceptable per current post-transplant protocols. An intervention is not indicated at this time. Bone mineral disease Last Phosphorous Level: Phosphorous Date Value Ref Range Status 03/28/2024 2.8 2.2 - 4.6 mg/dL Final Last Calcium Level: Calcium Date Value Ref Range Status 03/25/2024 8.7 8.6 - 10.5 mg/dL Final Last PTH Intact PTH Date Value Ref Range Status 09/30/2023 76.2 (H) 14.0 - 72.0 pg/mL Final No interventions are warranted at this time. Hyperlipidemia: Stable CHOLESTEROL Date Value Ref Range Status 10/16/2022 168 120 - 200 MG/DL Final TOTAL CHOLESTERL, MANUAL ENTER Date Value Ref Range Status 10/16/2022 168 Final HDL, MANUAL ENTER Date Value Ref Range Status 10/16/2022 42 Final HDL CHOLESTEROL Date Value Ref Range Status 10/16/2022 42 26 - 63 MG/DL Final LDL CHOLESTEROL, CALCULATED Date Value Ref Range Status 10/16/2022 108 MG/DL Final LDL, MANUAL ENTER Date Value Ref Range Status 10/16/2022 108 Final TRIGLYCERIDES, MANUAL ENTER Date Value Ref Range Status 10/16/2022 91 Final TRIGLYCERIDE Date Value Ref Range Status 10/16/2022 91 0 - 150 MG/DL Final TCHOL/HDL RATIO, MANUAL ENTER Date Value Ref Range Status 10/16/2022 4.00 RATIO Final Comment: RISK TOTAL/HDL RATIO MEN WOMEN 1/2 AVERAGE 3.43 3.27 AVERAGE 4.97 4.44 2X AVERAGE 9.55 7.05 3X AVERAGE 23.99 11.04 An intervention is not indicated at this time. Counseling: I counseled the patient on: The need to avoid sun exposure and the use of sunblock while outdoors given the relatively higher risk of skin malignancy in an immunosuppressed state. The need for adherence to immunosuppression medication. Patient verbalized understanding. Follow-Up: The patient will follow-up with us in clinic per transplant center follow-up protocol however we will see patient earlier should the need arise. We have ordered transplant specific labs per the center s guidelines to monitor and assess for toxicities from immunosuppressant drug therapy. - Yearly dermatology follow-up - Establish contact with general nephrology per Transplant center protocol - Age appropriate health screening per PCP I confirm that I have addressed the multifaceted nature of patients health needs by furnishing care for the patients complex, chronic condition that will require ongoing care with myself or someone from the transplant team. Thank you for allowing us to partake in the care of your patient. Should you have any questions please do not hesitate to contact me. documented in this encounter [facility] 04-21-2024 Instructions Isabell Zuleta RN - 04/21/2024 3:00 PM EDT - Return to see Dr. Franco in 6 months. - Labs today in clinic. documented in this encounter [facility] 04-21-2024 History of Present illness Narrative U/A dip was performed and results documented. Bladder Scan for Post-Void Residual: Bladder scan was performed for a residual of 101ml Patient tolerated well with no complaints. Results recorded to [facility] flow sheet. Referring provider: Griselda Gallegos MD Chief Complaint Elevated PVR Hydronephrosis of transplant kidney HPI Mr. Fontenot is a 58 y.o. male with history of anxiety/depression who presents with hydronephrosis of the transplant kidney, elevated PVR, and rising Cr. He was recently hospitalized for a may-en-y gastric bypass with Dr. Gallegos. He had low UOP and rising creatinine which did not improve with bray placement so he was going to have a nephrostomy tube placed, but was noted to have resolved hydronephrosis on the antegrade nephrostogram by IR and prompt drainage into the bladder, so no NT was placed. He was discharged with his bray catheter and this was removed on 04/06/24 after successful void trial in the urology clinic with a PVR of 2 cc. Here today for follow up. He denies baseline LUTS. Reports stream is good, feels he empties his bladder. Nocturia x1. PVR today 101 cc. Cr done by PCP yesterday increased to 3.2, baseline of 1.6. Past Medical History Past Medical History: Diagnosis Date Anxiety disorder [...] Umbilical hernia not yet repaired Past Surgical History Past Surgical History: Procedure Laterality Date PLACEMENT NEPHROSTOMY CATHETER PERCUTANEOUS W/ IMAGE GUIDANCE Right 03/27/2024 Laterality: Right; Surgeon: Netta Titus MD; Location: [facility] INTERVENTIONAL RADIOLOGY (VIR) EGD DIAGNOSTIC N/A 03/23/2024 Laterality: N/A; Surgeon: Griselda Gallegos MD; Location: [facility] SAME DAY SURGERY MAIN OR NEPHRECTOMY OPEN Bilateral 01/23/2022 Laterality: Bilateral; Surgeon: Charley Mccracken MD, PhD; Location: [facility] MAIN OR NEPHRECTOMY 2021 APPENDECTOMY LAPAROSCOPIC N/A 12/26/2019 Laterality: N/A; Surgeon: Rosy Lynn DO; Location: [facility] MAIN OR GASTRECTOMY LONGITUDINAL (SLEEVE) LAPAROSCOPIC N/A 08/10/2019 Laterality: N/A; Surgeon: Griselda Gallegos MD; Location: [facility] SURGERY MAIN OR EGD DIAGNOSTIC N/A 08/10/2019 Laterality: N/A; Surgeon: Griselda Gallegos MD; Location: [facility] SAME [facility] SURGERY MAIN OR EGD DIAGNOSTIC N/A 04/24/2019 Laterality: N/A; Surgeon: Nahomy Santos MD; Location: [facility] ENDOSCOPY LAPAROTOMY EXPLORATORY N/A 02/27/2019 Laterality: N/A; Surgeon: Raul Lott MD; Location: [facility] MA[facility] OR HERNIA REPAIR 02/27/2019 REPAIR HERNIA UMBILICAL OPEN W/ MESH N/A 05/09/2017 Laterality: N/A; Surgeon: CORNEL Elizondo; Location: [facility] MAIN OR KIDNEY TRANSPLANT W/O TUNUNAK NEPHRECTOMY N/A 09/25/2016 Laterality: N/A; Surgeon: Jose Shaw MD; Location: [facility] MAIN OR [place] ARTHROSCOPY KNEE MENISCAL TRNSPLJ MED/LAT Right 11/12/2014 [...] arthroscopy ADENOIDECTOMY EXCISION FISTULA LACTIFEROUS DUCT TONSILLECTOMY Medications Current Outpatient Medications Medication Sig Dispense Refill Alclometasone Dipropionate 0.05 % Cream Apply 0.05 mg topically As directed as needed. Apply to affected area 1-2 times daily when skin flared aspirin 81 MG Chew Tab chewable tablet Chew 1 tablet daily every morning. Take this 1 to 2 hours after taking sucralfate slurry. 30 tablet 11 carBAMazepine 100 MG Chew Tab Take 2 tablets daily in the morning and 3 tablets daily in the evening Cetirizine 10 MG tablet Take 1 tablet by mouth daily. (Patient taking differently: Take 1 tablet by mouth daily every morning.) 90 tablet 3 escitalopram 20 MG tablet Take 1 tablet by mouth daily every morning. 30 tablet 0 Flintstones Complete 18 MG Chew Tab Chew 1 tablet 2 times daily. Ketoconazole 2 % Cream cream Apply 1 Application topically daily as needed. Apply to affected area up to twice daily --> okay to use every day without breaks if needed magnesium oxide 400 (241.3 Mg) MG tablet Take 1 tablet by mouth 2 times daily. 180 tablet 3 Montelukast 10 MG tablet Take 1 tablet by mouth daily. (Patient taking differently: Take 1 tablet by mouth daily every morning.) 90 tablet 3 Mycophenolate 200 MG/ML Recon Susp oral suspension Take 3.75 mL by mouth 2 times daily, at 0800 and 2000 for 14 days. Can go back to taking Myfortic after 14 days. 105 mL 0 OLANZapine 2.5 MG tablet Take 1 tablet by mouth at bedtime. Pantoprazole (Protonix) [address] tablet DR Take 1 tablet by mouth 2 times daily. Take 90 days after surgery for ulcer prevention, then stop taking Polyethylene glycol (MiraLax) 17 GM/SCOOP Powder powder Take 17 g by mouth daily as needed for Constipation. 225 g 0 rOPINIRole 0.5 MG tablet Take 1 tablet by mouth at bedtime. sildenafil citrate 100 MG tablet Take 0.5-1 tablets by mouth as needed for Erectile Dysfunction. 30 tablet 2 Sucralfate 1 g tablet Take 1 tablet by mouth 2 times daily (take before meals). Put pill into a tablespoon of water to create a slurry. Take for 90 days after surgery for ulcer prevention. 60 tablet 2 Tacrolimus (PROGRAF) 1 MG capsule Take 6 capsules by mouth 2 times daily. (Patient taking differently: Take 4 capsules by mouth 2 times daily.) Tamsulosin HCl 0.4 MG capsule Take 1 capsule by mouth daily. 90 capsule 3 Terbinafine 1 % Cream cream Place 1 Application on skin As directed as needed. Apply to affected area (feet) twice daily No current facility-administered medications for this visit. Allergies Allergies Allergen Reactions Nsaids Cannot take due to renal transplant and gastric sleeve *Seasonal Runny Nose Social History Social History Socioeconomic History Marital status: Spouse name: Derick Number of children: 3 Years of education: 12 Tobacco Use Smoking status: Former Current packs/day: 0.00 Average packs/day: 1 pack/day for 20.0 years (20.0 ttl pk-yrs) Types: Cigarettes Start date: 07/01/1982 Quit date: 12/30/1999 Years since quittin.3 Passive exposure: Past Smokeless tobacco: Never Vaping Use Vaping status: Never Used Substance and Sexual Activity Alcohol use: Not Currently Comment: none Drug use: Never Sexual activity: Yes Partners: Female control/protection: Hysterectomy Comment: Other Topics Concern Occupational Exposure No Hobby Hazards No Domestic Violence No Social Determinants of Health Food Insecurity: No Food Insecurity (03/23/2024) Hunger Vital Sign Worried About Running Out of Food in the Last Year: Never true Ran Out of Food in the Last Year: Never true Transportation Needs: No Transportation Needs (03/23/2024) PRAPARE - Transportation Lack of Transportation (Medical): No Lack of Transportation (Non-Medical): No Intimate Partner Violence: Not At Risk (03/23/2024) Humiliation, Afraid, Rape, and Kick questionnaire Fear of Current or Ex-Partner: No Emotionally Abused: No Physically Abused: No Sexually Abused: No Housing Stability: Unknown (03/23/2024) Housing Stability Vital Sign Unable to Pay for Housing in the Last Year: No Homeless in the Last Year: No Family History Family History Problem Relation Age of Onset Kidney Disease Mother PKD; transplant Hypertension Mother Diabetes Father Diabetes Sister Alzheimer's Maternal Grandmother Other - Specify Maternal Grandfather esrd Anesth Problems Neg Hx Colorectal Cancer Neg Hx GI Disease Neg Hx Physical Exam BP 138/59 (BP Location: Right arm, BP Position: Sitting) Pulse 60 Wt 97.4 kg (214 lb 11.2 oz) SpO2 99% BMI 33.63 kg/m Smoking Status Former Body mass index is 33.63 kg/m . Constitutional: NAD Pulmonary: Respirations are even and non-labored bilaterally. Neurological: A + O x 3 Extremities: BRYAN x 4 Labs TESTOSTERONE (no units) Date Value 10/12/2021 570 FSH (no units) Date Value 10/23/2021 8.9 LH (no units) Date Value 10/23/2021 8.9 (H) Hematocrit (Calculated) (%) Date Value 09/25/2016 35 (L) 09/25/2016 35 (L) 09/25/2016 35 (L) HEMATOCRIT (HCT), MANUAL ENTER (no units) Date Value 10/16/2022 37.5 04/05/2022 36.7 01/02/2022 45.9 07/13/2021 44.7 05/01/2021 47.3 02/27/2021 47.4 12/29/2020 42.6 11/03/2020 48.8 08/30/2020 47.1 07/06/2020 46.3 HEMATOCRIT (HCT) (%) Date Value 10/16/2022 37.5 (L) 04/05/2022 36.7 (L) 01/02/2022 45.9 09/25/2021 43.9 07/13/2021 44.7 05/01/2021 47.3 02/27/2021 47.4 12/29/2020 42.6 11/03/2020 48.8 08/30/2020 47.1 Hematocrit (%) Date Value 03/28/2024 23.3 (L) 03/27/2024 23.5 (L) 03/26/2024 25.1 (L) 03/25/2024 26.8 (L) 03/25/2024 21.3 (L) 03/25/2024 25.2 (L) 03/25/2024 25.1 (L) 03/24/2024 28.3 (L) 02/25/2024 34.6 (L) 09/30/2023 37.8 (L) PROSTATE SPECIFIC ANTIGEN (NG/ML) Date Value 07/22/2017 1.250 PSA (Prostate Sp Ag) (ng/mL) Date Value 01/04/2022 0.68 Lab Results Component Value Date HGBA1C 5.6 11/20/2023 Lab Results Component Value Date TSH 2.300 09/25/2021 Lab Results Component Value Date CHOLESTEROL 168 10/16/2022 CHOLESTEROL 168 10/16/2022 CHOLESTEROL 155 11/07/2016 HDL 42 10/16/2022 HDL 42 10/16/2022 CHOLTOTALHDL 3.7 01/29/2019 CHOLTOTALHDL 3.1 11/07/2016 The 10-year ASCVD risk score (Rufus GRAJEDA, et al., 2019) is: 6.7%* Values used to calculate the score: Age: 58 years Sex: Male Is Non- : No Diabetic: No Tobacco smoker: No Systolic Blood Pressure: 138 mmHg Is BP treated: No HDL Cholesterol: 42 mg/dL* Total Cholesterol: 168 mg/dL* * - Cholesterol units were assumed for this score calculation Imaging I personally reviewed the following images: CT AP 12/25/19: IMPRESSION: 1. Mildly prominent proximal to midportion of [...] with several of these cysts in the [place] kidneys have increased density probably secondary to hemorrhage however low-grade malignancy would be difficult to exclude. 4. Diverticulosis without diverticulitis. Assessment/Plan Mr. Fontenot is a 58 y.o. male with hydronephrosis of the transplant kidney, elevated PVR, and rising Cr. - No ureteral obstruction seen on antegrade nephrostogram - PVR is not dramatic today but question whether retention + vesicoureteral reflux into the transplant kidney is a component. His prostate measures ~[address] from 2019 so likely some degree of BPH. - Would not place a bray for this degree of retention - Will start Flomax 0.4 mg daily - Repeat renal transplant US today ordered STAT prior to his nephrology follow up this afternoon - Defer to nephrology for other potential causes of RJ and will touch base after his appointment today for follow up plan Isabell Frank MD Assembly Line Machine Operator of Urology documented in this encounter [facility] 04-09-2024 History of Present illness Narrative Patient was referred to group underwriter by Dr. Griselda Gallegos for step III diet advancement. Patient is about 2 weeks s/p May-en-Y gastric bypass surgery. BMI: Estimated body mass index is 36.18 kg/m as calculated from the following: Height as of an earlier encounter on 04/09/24: 1.702 m (5' 7 ). Weight as of an earlier encounter on 04/09/24: 104.8 kg (231 lb). Patient stated that they have been tolerating step II diet well and denies any regular nausea, vomiting, abdominal pain/dumping. Pt said their current intake is at least 60 grams of protein and 64 oz fluid daily. Endorses some episodes of self-advancement with diet textures. Continues to trial and error different textures, reports he is listening to satiety cues. Advanced diet to step III, encouraging 60-80 gm of protein and >64oz of sugar free, decaf, non-carbonated fluids. Discussed supplementing protein intake at meals/snacks. Reviewed portion sizes on Step III & progressing to solid foods slowly. Discussed avoiding high calorie/fat foods and focusing on allowed step III foods. Reviewed with patient adding [id number] mg calcium citrate and 500mcg of Sublingual vitamin B12. Patient states understanding of info presented. Malnutrition Assessment: Patient does not meet malnutrition criteria for diagnosis; *based on the AND/ASPEN Malnutrition Criteria 2012 NFPE not warranted at this time; deferred at this time. Learning Barriers Identified: can read and write adequately Understanding Demonstrated: Patient states full understanding Expected Adherence: Patient voices motivation to learn and/or adhere to recommendations Health And Safety Coordinator resource utilized: No Spent 12 minutes with patient [id number] providing nutrition assessment and/or counseling/education and discussing step III dietary guidelines. Bina Sheets MS, RDN, LD documented in this encounter [facility] 04-09-2024 History of Present illness Narrative First Post-Operative Visit Goals Marker Response/Education Standards Reviewed MD/MUD TEMPERER notified of deviation from standard 1. 64 oz water/fluid [] Yes [] No Ounces: [] If no, Post op standard reviewed, education provided [] Comment: 2. 60 gm protein [] Yes [] No Grams: [] If no, Post op standard reviewed, education provided [] Comment: 3. Exercise/activity began [] Yes Activity: How many minutes: [] No [] If no, Post op standard reviewed, education provided [] Comment: 4. Pain Controlled [] Yes [] No * Pain Number: (Rate pain, even if 0 ). See pain flowsheets for detail. [] If no, Post op standard reviewed, education provided [] Comment: 5. Wearing Binder [] Yes [] No [] If no, Post op standard reviewed, education provided [] Comment: 6. Incisions closed [] Yes [] No. [] If no, Post op Standard discussed. Reviewed with MD/MUD TEMPERER. Gave wound care and instructions. Verbal understanding reciprocated. [] Other Comment: 7. Voiding clear yellow urine regularly [] Yes [] No [] If no, Post op standard reviewed, education provided [] Comment: 8. Stools soft, w/o constipation, diarrhea, bloating [] Yes [] No [] If no, Post op standard reviewed, education provided [] Comment: 9. Energy, weakness, fatigue resolving [] Yes [] No [] If no, Post op standard reviewed, education provided [] Comment: 10. Swallowing with ease [] Yes [] No [] If no, Post op standard reviewed, education provided [] Comment: 11. Nausea is present [] Yes [] If yes, Post op standard reviewed, education provided [] Comment: [] No 12. Vomiting is present [] Yes [] If yes, Post op standard reviewed, education provided [] Comment: [] No 13. Reflux is present [] Yes [] If yes, Post op standard reviewed, education provided [] Comment: [] No 14. Aware of activity restrictions protocol [] Yes [] No [] If no, Post op standard reviewed, education provided [] Comment: 15. Medication refill requests [] Yes [] If yes, med(s) requested: 1. 2. 3. [] No 16. Work restrictions/FMLA paperwork needed [] Yes [] If Yes, post op education provided as needed. Referred to FML office staff as needed. [] Comment: [] No 17. Primary care 1 month post op scheduled [] Yes [] No [] If no, Post op standard reviewed, education provided [] Comment: 18. Have you disposed of the [facility] prescribed opioid pills? [] Yes [] No # of narcotic pills remaining: [] If no, discussed disposal how, where, and why. [] Comment: LEARNING ASSESSMENT Learning needs identified: Yes Learner: patient Readiness to learn: No barriers; Ready to learn First Post-Operative Visit Goals Marker Response/Education Standards Reviewed MD/MUD TEMPERER notified of deviation from standard 1. 64 oz water/fluid [x] Yes [] No Ounces: [] If no, Post op standard reviewed, education provided [] Comment: 2. 60 gm protein [x] Yes [] No Grams: [] If no, Post op standard reviewed, education provided [] Comment: 3. Exercise/activity began [x] Yes Activity: How many minutes:_ 60 [] No [] If no, Post op standard reviewed, education provided [] Comment: 4. Pain Controlled [x] Yes [] No * Pain Number:___0 (Rate pain, even if 0 ). See pain flowsheets for detail. [] If no, Post op standard reviewed, education provided [] Comment: 5. Wearing Binder [] Yes [x] No [x] If no, Post op standard reviewed, education provided [] Comment: 6. Incisions closed [x] Yes [] No. [] If no, Post op Standard discussed. Reviewed with MD/MUD TEMPERER. Gave wound care and instructions. Verbal understanding reciprocated. [] Other Comment: 7. Voiding clear yellow urine regularly [x] Yes [] No [] If no, Post op standard reviewed, education provided [] Comment: 8. Stools soft, w/o constipation, diarrhea, bloating [x] Yes [] No [] If no, Post op standard reviewed, education provided [] Comment: 9. Energy, weakness, fatigue resolving [x] Yes [] No [] If no, Post op standard reviewed, education provided [] Comment: 10. Swallowing with ease [x] Yes [] No [] If no, Post op standard reviewed, education provided [] Comment: 11. Nausea is present [] Yes [] If yes, Post op standard reviewed, education provided [] Comment: [x] No 12. Vomiting is present [] Yes [] If yes, Post op standard reviewed, education provided [] Comment: [x] No 13. Reflux is present [] Yes [] If yes, Post op standard reviewed, education provided [] Comment: [x] No 14. Aware of activity restrictions protocol [x] Yes [] No [] If no, Post op standard reviewed, education provided [] Comment: 15. Medication refill requests [] Yes [] If yes, med(s) requested: 1. 2. 3. [x] No 16. Work restrictions/FMLA paperwork needed [] Yes [] If Yes, post op education provided as needed. Referred to FML office staff as needed. [] Comment: [x] No 17. Primary care 1 month post op scheduled [x] Yes [] No [] If no, Post op standard reviewed, education provided [] Comment: 18. Have you disposed of the [facility] prescribed opioid pills? [] Yes [] No # of narcotic pills remaining: [] If no, discussed disposal how, where, and why. [] Comment: none prescribed Chief Complaint Patient presents with Post Op Visit Here for first post op visit for sleeve to RNY 03/23/24. Denies n/v. No heartburn, no dysphagia. Bowels move daily. Incisions with no redness or swelling. Drinking > 64 oz daily andgetting > 60 gm protein daily.Weight is unchanged since DOS. Will meet with RD for nutrition education. Lino Fontenot presents today 2 weeks after having undergone a gastric bypass. He reports that when following the step 2 diet He does not have negative symptoms including nausea, vomiting, reflux symptoms, bloating, diarrhea or constipation, or hair loss He reports an intact satiety mechanism but notes He has to remind themselves to eat. He is remaining active and energy level is as expected. He is tolerating the appropriate diet. Past Medical History: Diagnosis Date Anxiety disorder [...] repaired Past Surgical History: Procedure Laterality Date PLACEMENT NEPHROSTOMY CATHETER PERCUTANEOUS W/ IMAGE GUIDANCE Right 03/27/2024 Laterality: Right; Surgeon: Netta Titus MD; Location: [facility] INTERVENTIONAL RADIOLOGY (VIR) EGD DIAGNOSTIC N/A 03/23/2024 Laterality: N/A; Surgeon: Griselda Gallegos MD; Location: [facility] SAME DAY SURGERY MAIN OR NEPHRECTOMY OPEN Bilateral 01/23/2022 Laterality: Bilateral; Surgeon: Charley Mccracken MD, PhD; Location: [facility] MAIN OR NEPHRECTOMY 2021 APPENDECTOMY LAPAROSCOPIC N/A 12/26/2019 Laterality: N/A; Surgeon: Rosy Lynn DO; Location: [facility] MAIN OR GASTRECTOMY LONGITUDINAL (SLEEVE) LAPAROSCOPIC N/A 08/10/2019 Laterality: N/A; Surgeon: Griselda Gallegos MD; Location: [facility] SAME DAY SURGERY MAIN OR EGD DIAGNOSTIC N/A 08/10/2019 Laterality: N/A; Surgeon: Griselda Gallegos MD; Location: [facility] SAME DAY SURGERY MAIN OR EGD DIAGNOSTIC N/A 04/24/2019 Laterality: N/A; Surgeon: Nahomy Santos MD; Location: [facility] ENDOSCOPY LAPAROTOMY EXPLORATORY N/A 02/27/2019 Laterality: N/A; Surgeon: Raul Lott MD; Location: [facility] MAIN OR HERNIA REPAIR 02/27/2019 REPAIR HERNIA UMBILICAL OPEN W/ MESH N/A 05/09/2017 Laterality: N/A; Surgeon: CORNEL Elizondo; Location: [facility] MAIN OR KIDNEY TRANSPLANT W/O TUNUNAK NEPHRECTOMY N/A 09/25/2016 Laterality: N/A; Surgeon: Jose Shaw MD; Location: [facility] MAIN OR WY ARTHROSCOPY KNEE MENISCAL TRNSPLJ MED/LAT Right 11/12/2014 [...] tablet Chew 1 tablet daily every morning. Take this 1 to 2 hours after taking sucralfate slurry. carBAMazepine 100 MG Chew Tab Take 2 tablets daily in the morning and 3 tablets daily in the evening Cetirizine 10 MG tablet Take 1 tablet by mouth daily. (Patient taking differently: Take 1 tablet by mouth daily every morning.) escitalopram 20 MG tablet Take 1 tablet by mouth daily every morning. Flintstones Complete 18 MG Chew Tab Chew 1 tablet 2 times daily. Ketoconazole 2 % Cream cream Apply 1 Application topically daily as needed. Apply to affected area up to twice daily --> okay to use every day without breaks if needed magnesium oxide 400 (241.3 Mg) MG tablet Take 1 tablet by mouth 2 times daily. Montelukast 10 MG tablet Take 1 tablet by mouth daily. (Patient taking differently: Take 1 tablet by mouth daily every morning.) Mycophenolate 200 MG/ML Recon Susp oral suspension Take 3.75 mL by mouth 2 times daily, at 0800 and 2000 for 14 days. Can go back to taking Myfortic after 14 days. OLANZapine 2.5 MG tablet Take 1 tablet by mouth at bedtime. Ondansetron 4 MG tablet Take 1 tablet by mouth 3 times daily for 14 days. Take scheduled for the first 7 days, then take as needed Pantoprazole (Protonix) [address] thomas RIVERA Take 1 tablet by mouth 2 times daily. Take 90 days after surgery for ulcer prevention, then stop taking Polyethylene glycol (MiraLax) 17 GM/SCOOP Powder powder Take 17 g by mouth daily as needed for Constipation. rOPINIRole 0.5 MG tablet Take 1 tablet by mouth at bedtime. Sucralfate 1 g tablet Take 1 tablet by mouth 2 times daily (take before meals). Put pill into a tablespoon of water to create a slurry. Take for 90 days after surgery for ulcer prevention. Tacrolimus (PROGRAF) 1 MG capsule Take 6 capsules by mouth 2 times daily. (Patient taking differently: Take 4 capsules by mouth 2 times daily.) Terbinafine 1 % Cream cream Place 1 Application on skin As directed as needed. Apply to affected area (feet) twice daily sildenafil citrate 100 MG tablet Take 0.5-1 tablets by mouth as needed for Erectile Dysfunction. Wt Readings from Last 3 Encounters: 04/09/24 104.8 kg (231 lb) 04/06/24 105.9 kg (233 lb 8 oz) 03/26/24 107.4 kg (236 lb 11.2 oz) Body mass index is 36.18 kg/m . BP 151/69 (BP Location: Left arm, BP Position: Sitting) Pulse 61 Temp 97.8 F (36.6 C) (Temporal) Resp 16 Ht 1.702 m (5' 7 ) Wt 104.8 kg (231 lb) SpO2 100% Comment: room air BMI 36.18 kg/m Smoking Status Former On Exam Abdomen in soft and non-tender. The incisions are well healed, without signs of infection. There are no palpable seromas or hernias Assessment: He is s/p gastric bypass and is doing as expected. No further issues related to his transplanted kidney, bray out, getting creatinine checked by PCP next week. Plan: 1. We have recommended transition to a Step 3 diet. 2. The patient will see our disability case manager today 3. We encouraged exercise and/or increasing overall activity as appropriate. 4. Prescription offered as needed. 5. The patient will follow up in 2 weeks or earlier if needed. documented in this encounter [facility] 04-06-2024 History of Present illness Narrative Pt was given an explanation regarding the voiding trial and wishes to proceed. Pt undressed and the bray bag was removed from the catheter. 420 mL of 0.9%NaCl was slowly instilled into the bladder. The balloon of a 16 Cymraes catheter was then deflated. The patient voiced an urge to urinate and the catheter was removed. The patient tolerated the procedure well. Pt was allowed to void. 420 mL of clear urine was returned and a PVR was performed and showed 2 mL of urine in the bladder Provider, Cayla Gonzalez CNP, was immediately available in the suite for any questions or concerns. Nurse Visit. I was present in the clinic area and available should any issues or questions arise documented in this encounter [facility] 03-28-2024 History of Present illness Narrative Patient discharged to home per MD order. Charge nurse reviewed bariatric diet instructions, post-surgical instructions, and urinary catheter instructions. Additional catheter supplies including leg bag sent with patient. Mr. Fontenot verbalized understanding regarding follow up appointments, medications, catheter care requirements, and when to notify health care provider/surgery team. Patient left facility via wheelchair with car ride en-route home. Pt is back from IR. No neph tubes placed. Assessment complete and the only difference is in urine being bloody/blood tinged which is expected. Will check vitals and monitor. Pt left to IR in stable condition accompanied by transport. Notified Dr Mckenzie of Hgb results=6.[address] Banks that hgb result=6.5 Transplant Nephrology Follow Up Subjective Resting in bed today. No overnight events. 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 Transplant consulted for IS management. Immunosuppression: Continue current management. Check Tac troughs. Saturday and Saturday. Today tac trough 8.2. Decrease to Tac 5/5. Graft function Hyperkalemia - BL difficult to assess. Likely 1.3-1.6. Cr max 2.6. Currently 2.51. Renal US with severe hydro. TRR consulted. Bray placed. Monitor output. Enrique Ambriz Nephrology Fellow PGY-7 Please see attending attestation for final recommendations. Attending Physician Addendum I saw and personally examined Mr. Fontenot with the renal team. I discussed the findings and plan of the case. I agree with the history, physical examination, and medical decisions as outlined above. VS Temp: [97.7 F (36.5 C)-99.3 F (37.4 C)] 98.6 F (37 C) Pulse (Heart Rate): [64-75] 71 Resp Rate: [16-18] 16 BP: (131-155)/(55-69) 137/60 O2 Sat (%): [92 %-96 %] 96 % I/O last 3 completed shifts: In: 2385.2 [P.O.:1105; I.V.:1190.2; Other:90] Out: 2600 [Urine:2600] I/O this shift: In: 76.5 [I.V.:76.5] Out: - LABS Lab Results Component Value Date WBC 8.93 03/25/2024 HGB 8.0 (L) 03/25/2024 PLATELET 149 03/25/2024 Lab Results Component Value Date SODIUM 142 03/25/2024 POTASSIUM 5.0 03/25/2024 CHLORIDE 112 (H) 03/25/2024 CO2 24 03/25/2024 BUN 45 (H) 03/25/2024 CREATSERUM 2.49 (H) 03/25/2024 GLUCOSE 96 03/25/2024 Lab Results Component Value Date CALCIUM 8.7 03/25/2024 PHOSPHORUS 2.1 (L) 03/25/2024 Lab Results Component Value Date CREATSERUM 2.49 (H) 03/25/2024 CREATSERUM 2.51 (H) 03/25/2024 CREATSERUM 2.60 (H) 03/25/2024 CREATSERUM 1.63 (H) 10/16/2022 CREATSERUM 1.63 10/16/2022 CREATSERUM 1.51 (H) 04/05/2022 CREATSERUM 1.51 04/05/2022 CREATSERUM 1.53 (H) 01/02/2022 CREATSERUM 1.53 01/02/2022 Scr improving Decrease FK as above Volume expand Primo Barber MD, DIANN Assembly Line Machine Operator of Clinical Medicine [facility] A dual assessment of skin condition was performed by this group underwriter and Tere MAYS. Skin Assessment: Skin within defined limits:Yes Except surgical incisions Adilson Score: 20 LDA Added:No Aline Israel RN BARIATRIC SURGERY ATTENDING Day 2 s/p lap sleeve to bypass for severe GERD Preop his creatinine had bumped transiently to 2.6 but came down to 2.0 the day of surgery. Back up to 2.6 today. UO 2600 yesterday. Renal ultrasound yesterday showed severe hydronephrosis of transplant kidney Hb is drifting down from 11 preop to 9 yesterday and 8 today. Minimal blood loss during case and not tachycardic or hypotensive but need to watch closely. Make sure T&S is current Recheck labs this afternoon Will follow up with transplant team to help manage hydronephrosis. Can continue clear liquids for now. Griselda Gallegos MD Post Bariatric Surgery education reviewed with the patient. Topics covered: Step 2 pureed diet essentials; home medications-what to take, hold and crush/split; medications to be prescribed to control pain and nausea at discharge; getting in 60 gm protein and 64 oz fluid each day at home/recording amounts in the handbook provided and home BP monitoring. Explained the goal to get to 40-48 oz of fluid intake by early evening tomorrow for discharge to home. The patient was provided opportunities to ask questions and seek clarification. Staff will continue to reinforce daily while inpatient. REYES Ann, 03/24/2024 1:12 PM Advised primary team that Carafate may require PA Discharge Planning Patient Assessment Admission Assessment Patient Assessment Completed: Initial Expected Discharge Disposition: Home Reason for Admission: planned admission for bariatric revision surgery Is the patient able to participate in the assessment?: Yes Information source: Patient Demographics Verified and Updated: Yes Has the patient been admitted to any hospital in the last 30 days?: No Advanced Care Planning Has the patient completed Advance Directives?: Not Completed Referral to Social Work for Advance Care Planning? : Patient Declines Legal Next of Kin Does the patient have a Guardian?: No Spouse: Yes Name and Contact information: Derick Fontenot Spouse [phone] Adult Child(edgardo), List All Adult Children: Yes Referral to Social Work to Identify Legal Next of Kin?: No Reviewed and Updated in Demographics? : Yes Outpatient Providers Does patient have a primary care physician? : Yes When was the patient's last PCP visit?: Unknown at this time Does the patient follow any specialists?: Yes Reviewed and updated Care Team?: Yes Patient Care Team: Cayla Velazquez CNP as PCP - General (Certified Nurse Practitioner) Coordinator Transplant (Inactive) as PCP - Blending Operator Roberto Carlos Davey MD as Consulting Physician (Nephrology) Environment/Caregivers Is the patient from a facility or alf?: No Patient lives with: Spouse or Partner Living Environment: House How many steps does the patient have to navigate to enter or inside the home? : none Does the patient have a first floor set-up with bed and bathroom?: Yes Patient Caregiving Responsibilities: Self Patient-identified caregiver/support network: Family Who does the patient identify as a teachable caregiver(s)?: Spouse or Partner Services Does the patient use a home health or hospice agency?: No Current with dialysis?: No Does the patient use any community programs or services?: No Does patient use DME? : none Does the patient use oxygen?: No Does patient use medical supplies? : none Anticipated Changes Related to Illness/Injury? : No Initial ADLs Prior to Arrival What is the patient's baseline physical functioning prior to this acute illness?: independent What is the patient's baseline cognitive functioning prior to this acute illness?: independent Is the patient's baseline functioning changed by this acute illness? : No Concerns with patient being able to care for themselves at home? : No Are there therapy or specialists consults?: No Does the patient's home require any home modifications for discharge? : No CM to recommend therapy or other consults? : No Medication Management Does the patient have prescription insurance coverage? : Yes Is the patient on Anticoagulation? : No [id number] [place] [address] - [address] [facility] [address] [facility] [address] [address] Does the patient or manufacturer representative express financial concerns? : No Employed?: Retired Coping/Stress Concerns about patient s coping and stress?: No Concerns about patient s caregiver s coping and stress?: No Values and Beliefs Cultural or zoroastrianism practices that may impact discharge planning and/or medical care?: No Initial Discharge Planning Expected Discharge Disposition: Home Transportation Available for Discharge: Private Vehicle Anticipated DME: none Anticipated Services at Discharge: Outpatient follow up Patient Assessment Completed: Initial Expected Discharge Date: 03/25/2024 Discharge Planning Summary Met with patient for initial assessment. Patient denies any discharge planning needs. Patient will discharge in 1-2 days if patient remains medically stable post op, is meeting all their post op goals and is tolerating a bariatric diet. No needs identified. CM will continue to follow to assess ongoing needs and assist with discharge planning. Care Management Plan Home Brad Silva RN, BSN, ACM Clinical Time Broker [place] Bariatric Surgery Progress Note Subjective: Reports no problems overnight. Pain is under control. Nausea is under control. Reports voiding without difficulty. PMHx: Obesity, Body mass index is 36.59 kg/m ., Kidney Transplant, depression, anxiety, GERD, and PCKD Objective: BP 151/78 (BP Location: Left arm, BP Position: Lying) Pulse 72 Temp 98.2 F (36.8 C) (Oral) Resp 16 Ht 1.702 m (5' 7 ) Wt 106 kg (233 lb 9.6 oz) SpO2 92% BMI 36.59 kg/m Smoking Status Former I/O last 3 completed shifts: In: 4008.2 [P.O.:400; I.V.:3508.2; IV Piggyback:100] Out: 550 [Urine:550] Recent Labs 03/23/24 0903/24/24 0157 POTASSIUM 5.1* 5.5* CREATSERUM 2.08* 2.17* Physical Exam: Gen: sitting up in bed, alert and oriented, in no acute distress Lungs: unlabored breathing on room air Cardiac: regular rate and rhythm on quality assurance monitor body Abdomen: soft, appropriately-tender, non-distended, laparoscopic incisions well approximated, dry, without signs of infection. Labs: WBC/Hgb/Hct/Plts: 14.38/9.3/28.3/179 (03/24 157) Na/K+/Phos/Mg/Ca: 138/5.5/2.7/1.9/8.6 (03/24 157) Bun/Creat/Cl/CO2/Glucose: 45/2.17/111/19/144 (03/24 157) Assessment/Plan: Lino Fontenot is a 58 y.o. male with Class III Obesity, Body mass index is 36.59 kg/m ., who is 1 Day Post-Op following Procedure(s) (LRB): CONVERSION SLEEVE TO MAY-EN-Y GASTRIC BYPASS LAPAROSCOPIC (N/A) EGD DIAGNOSTIC (N/A). Fluid management/Diet: MIV 150ml/hr and will go down to 50ml/hr later today if po intake and urine output are adequate; Step 1 bariatric liquid protein diet-encourage 6 oz per hour oral intake. DVT prophylaxis: SCD, SQ lovenox to start POD1 Pain control: Scheduled: Tylenol; PRN: Flexeril and Oxycodone; Nausea control: Scheduled zofran, scopolamine patch placed on POD 0, PRN: Haldol, Compazine GI: Miralax daily until return of bowel function, PPI ulcer prophylaxis Resp: Encourage patient to ambulate in the hallway 3-5x per day and use incentive spirometer every hour while awake. Nephrology: Lasix 40 mg IV x1, Sodium Bicarbonate 50 mEq IV x1, Renal Transplant Ultrasound, Transplant Nephrology consulted, Tacrolimus level to be obtained. Continue home tacrolimus and mycophenolate Discharge planning: Resume pertinent home meds. Encouraged patient to review of Step 2 diet education provided at bedside and watch discharge video. Complexity. Obesity Body mass index is 36.59 kg/m . - Follow with PCP for dietary and lifestyle modifications. Any conditions listed below are present on admission unless otherwise specified. . Discharge pending transplant nephrology evaluation Jamel Uriarte MD, 03/24/2024 9:53 AM Bariatric Surgery Post-Operative Check ID/CC: Lino Fontenot is a 58 y.o. male who is now status post Procedure(s) (LRB): CONVERSION SLEEVE TO MAY-EN-Y GASTRIC BYPASS LAPAROSCOPIC (N/A) EGD DIAGNOSTIC (N/A). I came to evaluate the patient after he came up to the hospital floor. Subjective: Patient reports mild abdominal pain, well-controlled with pain medications. He denies any nausea, emesis, chest pain, palpitations, or dyspnea. He has not voided, has ambulated, has attempted PO. The patient has no other immediate concerns. Objective: BP 123/65 (BP Location: Left arm, BP Position: Lying) Pulse 62 Temp 97.2 F (36.2 C) (Oral) Resp 16 Ht 1.702 m (5' 7 ) Wt 104.3 kg (230 lb) SpO2 92% BMI 36.02 kg/m Smoking Status Former Physical Exam: Gen: lying in bed, NAD Cardiac: regular rate and rhythm Lung: no increased work of breathing, equal chest rise bilaterally, oxygen via Abdomen: soft, appropriately tender to palpation, non-distended; surgical wounds clean, dry, and intact : deferred Extremities: no cyanosis, no edema, warm and well-perfused Neuro: AAOx3, CN 2-12 grossly intact, no focal motor or sensory deficits Psych: no evidence of delirium or psychosis, appropriate mood and affect Assessment/Plan: Lino Fontenot is a 58 y.o. male who is now s/p Procedure(s) (LRB): CONVERSION SLEEVE TO MAY-EN-Y GASTRIC BYPASS LAPAROSCOPIC (N/A) EGD DIAGNOSTIC (N/A). He is recovering well post-operatively. - pain and nausea control as needed - DIET BARIATRIC STEP 1 - IS, OOB; ambulate as able - I/Os - will continue to monitor If there are any questions or concerns, please do not hesitate to page the logistics operations director resident Jamel Uriarte MD PGY-1 Anesthesiology Bariatric ([facility]) Surgery Service Pager: [phone] 03/23/24 5:54 PM On admission to [facility], from OR a dual RN initial assessment of skin condition was performed by Roberto Carlos Morgan RN and Andrew MAYS. Skin Assessment: Skin within defined limits:Yes Adilson Score: 19 LDA Added:No Roberto Carlos Morgan RN documented in this encounter [facility] 03-28-2024 Plan of care note Problem: Adult Inpatient Plan of Care Goal: Plan of Care Review Outcome: Progressing Goal: Patient-Specific Goal (Individualized) Outcome: Progressing Goal: Absence of Hospital-Acquired Illness or Injury Outcome: Progressing Goal: Optimal Comfort and Wellbeing Outcome: Progressing Goal: Readiness for Transition of Care Outcome: Progressing Problem: VTE (Venous Thromboembolism) Goal: Tissue Perfusion Outcome: Progressing Problem: Pain Acute Goal: Optimal Pain Control and Function Outcome: Progressing [facility] 03-28-2024 Miscellaneous Notes Problem: Adult Inpatient Plan of Care Goal: Plan of Care Review Outcome: Progressing Goal: Patient-Specific Goal (Individualized) Outcome: Progressing Goal: Absence of Hospital-Acquired Illness or Injury Outcome: Progressing Goal: Optimal Comfort and Wellbeing Outcome: Progressing Goal: Readiness for Transition of Care Outcome: Progressing Problem: VTE (Venous Thromboembolism) Goal: Tissue Perfusion Outcome: Progressing Problem: Pain Acute Goal: Optimal Pain Control and Function Outcome: Progressing Plan of care update - Notified intra-procedurally of nephrostogram findings with mild hydronephrosis and w/o obstruction - decision made not to place transplant nephrostomy tube - Given continued improvement of Cr with bray placement, OK for discharge from transplant surgery perspective WITH bray in place - Please have patient follow-up with urology for void trial in a couple weeks - Please have patient follow-up with the transplant center for continued follow-up to ensure Cr continues to normalize, ludwig once bray is removed - We will otherwise sign off at this time. Please call with questions. Patient was discussed with transplant surgery attending, Dr. Giraldo. Thank you for allowing us to participate in the care of your patient. Should you have any further questions, please do not hesitate to contact the surgery consult team. PER Bentley MD PGY4 General Surgery *[id number] Transplant Nephrology Plan of Care Tac trough remains elevated. Reduce Tac to 4mg/4mg. Problem: Adult Inpatient Plan of Care Goal: Plan of Care Review Outcome: Progressing Problem: Bariatric Surgery Goal: Optimal Coping with Surgery Outcome: Progressing Goal: Absence of Infection Signs and Symptoms Outcome: Progressing Goal: Optimal Pain Control and Function Outcome: Progressing Intervention: Prevent or Manage Pain Flowsheets (Taken 03/27/2024 0936) Diversional Activities: television smartphone Pain Management Interventions: [id number] dosing utilized pain medication given pain management plan reviewed with patient/caregiver relaxation techniques promoted Problem: Adult Inpatient Plan of Care Goal: Plan of Care Review Outcome: Progressing Goal: Patient-Specific Goal (Individualized) Outcome: Progressing Goal: Absence of Hospital-Acquired Illness or Injury Outcome: Progressing Goal: Optimal Comfort and Wellbeing Outcome: Progressing Goal: Readiness for Transition of Care Outcome: Progressing Problem: VTE (Venous Thromboembolism) Goal: Tissue Perfusion Outcome: Progressing Goal: Right Ventricular Function Outcome: Progressing Problem: Pain Acute Goal: Optimal Pain Control and Function Outcome: Progressing Problem: Bariatric Surgery Goal: Optimal Coping with Surgery Outcome: Progressing Goal: Absence of Bleeding Outcome: Progressing Goal: Fluid and Electrolyte Balance Outcome: Progressing Goal: Effective Gastrointestinal Motility and Elimination Outcome: Progressing Goal: Blood Glucose Level Within Desired Range Outcome: Progressing Goal: Absence of Infection Signs and Symptoms Outcome: Progressing Goal: Anesthesia/Sedation Recovery Outcome: Progressing Goal: Optimal Pain Control and Function Outcome: Progressing Goal: Nausea and Vomiting Relief Outcome: Progressing Goal: Effective Urinary Elimination Outcome: Progressing Goal: Effective Oxygenation and Ventilation Outcome: Progressing Problem: VTE (Venous Thromboembolism) Goal: Tissue Perfusion Outcome: Progressing Problem: Bariatric Surgery Goal: Optimal Coping with Surgery Outcome: Progressing Problem: Pain Acute Goal: Optimal Pain Control and Function Outcome: Progressing Plan of care update - Repeat U/S renal reviewed w/ concern for persistent severe hydronephrosis in transplant kidney despite bray placement - Recommend IR consult for nephrostogram and transplant neph tube placement Thank you for allowing us to participate in the care of your patient. Should you have any further questions, please do not hesitate to contact the surgery consult team. PER Bentley MD PGY4 General Surgery *[id number] Problem: Adult Inpatient Plan of Care Goal: Plan of Care Review Outcome: Progressing Goal: Patient-Specific Goal (Individualized) Outcome: Progressing Goal: Absence of Hospital-Acquired Illness or Injury Outcome: Progressing Goal: Optimal Comfort and Wellbeing Outcome: Progressing Goal: Readiness for Transition of Care Outcome: Progressing Problem: VTE (Venous Thromboembolism) Goal: Tissue Perfusion Outcome: Progressing Goal: Right Ventricular Function Outcome: Progressing Problem: Pain Acute Goal: Optimal Pain Control and Function Outcome: Progressing Problem: Bariatric Surgery Goal: Optimal Coping with Surgery Outcome: Progressing Goal: Absence of Bleeding Outcome: Progressing Goal: Fluid and Electrolyte Balance Outcome: Progressing Goal: Effective Gastrointestinal Motility and Elimination Outcome: Progressing Goal: Blood Glucose Level Within Desired Range Outcome: Progressing Goal: Absence of Infection Signs and Symptoms Outcome: Progressing Goal: Anesthesia/Sedation Recovery Outcome: Progressing Goal: Optimal Pain Control and Function Outcome: Progressing Goal: Nausea and Vomiting Relief Outcome: Progressing Goal: Effective Urinary Elimination Outcome: Progressing Goal: Effective Oxygenation and Ventilation Outcome: Progressing Problem: Pain Acute Goal: Optimal Pain Control and Function Outcome: Progressing Problem: Bariatric Surgery Goal: Optimal Coping with Surgery Outcome: Progressing 03/24/24 1115 Medication Prior Auth Medication Requiring Prior Auth SUCRALFATE Dosage Form Tablet Intervention spoke with team Outcome Prior Auth Started Medication PA Process Complete? In Progress Brad Silva RN, BSN, ACM Clinical Time Broker Problem: Adult Inpatient Plan of Care Goal: Plan of Care Review Outcome: Progressing Goal: Patient-Specific Goal (Individualized) Outcome: Progressing Goal: Absence of Hospital-Acquired Illness or Injury Outcome: Progressing Goal: Optimal Comfort and Wellbeing Outcome: Progressing Goal: Readiness for Transition of Care Outcome: Progressing Problem: VTE (Venous Thromboembolism) Goal: Tissue Perfusion Outcome: Progressing Goal: Right Ventricular Function Outcome: Progressing Problem: Pain Acute Goal: Optimal Pain Control and Function Outcome: Progressing Problem: Bariatric Surgery Goal: Optimal Coping with Surgery Outcome: Progressing Goal: Absence of Bleeding Outcome: Progressing Goal: Fluid and Electrolyte Balance Outcome: Progressing Goal: Effective Gastrointestinal Motility and Elimination Outcome: Progressing Goal: Blood Glucose Level Within Desired Range Outcome: Progressing Goal: Absence of Infection Signs and Symptoms Outcome: Progressing Goal: Anesthesia/Sedation Recovery Outcome: Progressing Goal: Optimal Pain Control and Function Outcome: Progressing Goal: Nausea and Vomiting Relief Outcome: Progressing Goal: Effective Urinary Elimination Outcome: Progressing Goal: Effective Oxygenation and Ventilation Outcome: Progressing Pt's V/S are stable, Afebrile, AOX4. Pt's states pain is 0/10 Pt has been educated with meals and fluid encouragement Pt is receiving SCD's/Medication intervention for DVT prophylaxis Call light is within reach. Will continue to monitor Coughing and I/S therapy/use was also encouraged. Problem: Adult Inpatient Plan of Care Goal: Plan of Care Review Outcome: Progressing Goal: Optimal Comfort and Wellbeing Outcome: Progressing Problem: Bariatric Surgery Goal: Optimal Coping with Surgery Outcome: Progressing Goal: Effective Gastrointestinal Motility and Elimination Outcome: Progressing Goal: Optimal Pain Control and Function Outcome: Progressing Problem: Adult Inpatient Plan of Care Goal: Plan of Care Review Outcome: Progressing Goal: Patient-Specific Goal (Individualized) Outcome: Progressing Goal: Absence of Hospital-Acquired Illness or Injury Outcome: Progressing Goal: Optimal Comfort and Wellbeing Outcome: Progressing Goal: Readiness for Transition of Care Outcome: Progressing Problem: VTE (Venous Thromboembolism) Goal: Tissue Perfusion Outcome: Progressing Goal: Right Ventricular Function Outcome: Progressing Problem: Pain Acute Goal: Optimal Pain Control and Function Outcome: Progressing Pt's V/S are stable, Afebrile, AOX4. Pt's states pain is 0/10 Pt has been educated with meals and fluid encouragement Pt is receiving SCD's/Medication intervention for DVT prophylaxis Coughing and I/S therapy/use was also encouraged. Call light is within reach. Will continue to monitor Patient met PACU discharge criteria. Phone report given to TABATHA Townsend. Patient transported on telemetry and cont. Pulse ox with Rn. Patient family updated. Lino Fontenot ([id number]) PRE OPERATIVE DIAGNOSIS Gastroesophageal reflux disease without esophagitis [K21.9] Morbid obesity [E66.01] POST OPERATIVE DIAGNOSIS Gastroesophageal reflux disease without esophagitis [K21.9] Morbid obesity [E66.01] PROCEDURE PERFORMED Procedure(s) (LRB): CONVERSION SLEEVE TO MAY-EN-Y GASTRIC BYPASS LAPAROSCOPIC (N/A) EGD DIAGNOSTIC (N/A) PRIMARY CLOSURE Yes INTRAOPERATIVE FINDINGS Lap sleeve to bypass. Negative leak test SURGEON Surgeons and Role: * Griselda Gallegos MD - Primary * Jyotsna Bahena MD - Assisting ANESTHESIOLOGIST Anesthesiologist: Kurt Gonzalez MD; Yulia Hong MD Coat Padder: JADEN Vaughan; JADEN Orosco Student Anesthesiologist Sheep Sticker: Jayshree West SURGICAL STAFF Slot Floorman: Della Ace RN; Prema Rodriguez RN Scrub Person: Mary Ortiz COMPLICATIONS None ESTIMATED BLOOD LOSS Minimal SPECIMENS No specimen sent * No specimens in log * Jyotsna Bahena MD March 23, 2024 1:47 PM OPERATIVE/PROCEDURE REPORT Surgeon(s)/Proceduralist(s) and Sheep Sticker(s): Surgeon(s) and Role: * Griselda Gallegos - Primary * - Fellow - Jyotsna Bahena Please note due to the complex nature of this advanced laparoscopic procedure, Dr. Bahena's presence was requested, as there were no capable available residents. Procedure(s): - Laparoscopic conversion of sleeve gastrectomy to May en Y gastric bypass - EGD Anesthesia: Choice - Anesthesia Consult Pre-Op/Pre-Procedure Diagnosis: - Morbid obesity with a Body mass index is 36.18 kg/m . and GERD s/p LSG Post-Op/Post-Procedure Diagnosis: - Morbid obesity with a Body mass index is 36.18 kg/m . and and GERD s/p LSG Operative Indication: The patient is a 58 y.o. male with Body mass index is 36.18 kg/m . and GERD s/p LSG refractory to maximal medical therapy. Operative Findings: - Operation completed laparoscopically. 150 cm antecolic-antegastric Amy limb, 50 cm biliopancreatic limb, and 15 mL gastric pouch. - Endoscopic leak test performed and negative Operative Procedure: Informed consent was obtained. The patient was taken to the main operating room and a identified by name, MRN, and date of . A sign in huddle was done. The patient was then placed under general anesthesia. The abdomen was prepped and draped in a sterile fashion. A Veress needle was used to establish pneumoperitoneum through a left upper quadrant incision. A 5-mm optical trocar was placed through the same incision and visual access to the peritoneal cavity was obtained. Remaining trocars were placed in the standard positions across the upper abdomen under direct vision. There were omental adhesions to the anterior abdominal wall from his prior umbilical hernia repair and prior bilateral nephrectomies and these were easily taken down using Ligasure. After we were able to retract the omentum above the transverse colong, the ligament of Treitz was easily identified and the small bowel divided 50 cm distal to the ligament of Treitz. A saldana load of the linear stapler was used to divide the bowel and then the mesentery was divided with the Ligasure device. The May limb was marked with a suture. A 150 cm May limb was measured and approximated to the end of the biliopancreatic limb. Adjacent enterotomies were created with ultrasonic rosibel and a saldana load of the stapler was used to create a [id number] anastomosis. The common opening was closed with a transverse firing of the stapler and reinforcement stitches were placed at both ends of the anastomosis. The mesenteric defect was closed with running 2-0 Surgidac suture. The omental split was then completed with the Ligasure device. The liver retractor was placed. The patient was put in steep reverse Trendelenburg position and the pars flaccida was opened. The lesser omentum was then divided with the Ligasure device and the omental adhesions to the lateral edge of the pouch were divided and the upper sleeve was inspected. The sleeve was tubular without retained fundus and no hiatal hernia was present. We then fired a purple load horizontally to create the gastric pouch. The tip of the remnant staple line was also resected with a purple load to avoid ischemia and the small piece of stomach was removed through the 12 mm port. Once this was completed, the May limb was brought up in the antecolic-antegastric position sewn to the posterior gastric pouch with running 2-0 Surgidac suture. Adjacent enterotomy and gastrotomy were created with ultrasonic rosibel and the purple load of the stapler was used to create a 1.5 cm linear stapled anastomosis. The common opening was closed with a running 2-0 Polysorb suture. An imbricating anterior layer was placed using 2-0 Surgidac to complete the 2-layer anastomosis. The bowel clamp was placed on the May limb. The endoscope was used to provide air insufflation and a leak test was performed, which was negative for any air leaks and the endoscopic view was normal. The mesenteric defect was then closed behind the May limb and approximated the May limb mesentery to the mesocolon up to the the level of the gastric remnant. The omentum was then sewn anteriorly over the gastrojejunostomy. The 12-mm trocar sites were closed with #0 Vicryl suture using the Malachi-Eusebia suture passer and the final inspection for hemostasis was good. Sponge and needle counts were correct. The trocars were removed under direct vision and the abdomen desufflated. Fascial sutures were tied down. Skin incisions were closed with 4-0 Monocryl. Dressings were applied. The patient tolerated the procedure well, was awakened, extubated in the operating room, and taken to recovery room in stable condition. Estimated Blood Loss: minimal Specimens: - None Implantable Devices: None Drains: - None Complications: None Dr. Gallegos was scrubbed the entire case. Griselda Gallegos MD Patient arrived to PACU 8 from OR . Patient stable and attached to monitors. Bedside report from Dahlia Bahena MD and JADEN Krishnan. Patient turned side to side to remove extra linens. Patient denies nausea, states has moderate pain. VSS. documented in this encounter [facility] 03-27-2024 Plan of care note Plan of care update - Notified intra-procedurally of nephrostogram findings with mild hydronephrosis and w/o obstruction - decision made not to place transplant nephrostomy tube - Given continued improvement of Cr with bray placement, OK for discharge from transplant surgery perspective WITH bray in place - Please have patient follow-up with urology for void trial in a couple weeks - Please have patient follow-up with the transplant center for continued follow-up to ensure Cr continues to normalize, ludwig once bray is removed - We will otherwise sign off at this time. Please call with questions. Patient was discussed with transplant surgery attending, Dr. Giraldo. Thank you for allowing us to participate in the care of your patient. Should you have any further questions, please do not hesitate to contact the surgery consult team. PER Bentley MD PGY4 General Surgery *[id number] [facility] Work Phone: 03-27-2024 Plan of care note Transplant Nephrology Plan of Care Tac trough remains elevated. Reduce Tac to 4mg/4mg. [facility] 03-27-2024 Plan of care note Problem: Adult Inpatient Plan of Care Goal: Plan of Care Review Outcome: Progressing Problem: Bariatric Surgery Goal: Optimal Coping with Surgery Outcome: Progressing Goal: Absence of Infection Signs and Symptoms Outcome: Progressing Goal: Optimal Pain Control and Function Outcome: Progressing Intervention: Prevent or Manage Pain Flowsheets (Taken 03/27/2024 0936) Diversional Activities: television smartphone Pain Management Interventions: [id number] dosing utilized pain medication given pain management plan reviewed with patient/caregiver relaxation techniques promoted [facility] 03-27-2024 Consult note Formatting of th is note might be different from the original. Consults Vascular Access Consult Note Assessment: Patient seen and evaluated for peripheral IV insertion using ultrasound guidance. ID band present, allergies verified and patient/nurse questioned of limb precautions. Skin integrity within normal limits at time of insertion. No evidence of ecchymosis, infiltration, hematoma, or any condition that would prevent safe insertion of a peripheral IV with ultrasound. Insertion Ultrasound guided access: 20 gauge 1.75 length Nexiva [employer] catheter inserted into right forearm. Peripheral IV placed per aseptic technique under ultrasound guidance. Positive blood return, flushes easily without symptoms, occlusive dressing applied. Patient tolerated procedure well. []Obtained labs. [x]Call light. [x]Bed locked. [x]Bed low. [x]Tray table within reach. [x]Physician and junior business analyst notified of the above Education Patient/Family informed to notify nurse of any complications including pain, redness, swelling, or leaking post-insertion. Thank you for allowing our team to participate in the care of this patient. Vascular Access Team [phone] [facility] 03-27-2024 Consult note Formatting of th is note might be different from the original. Consults Vascular Access Consult Note Assessment: Patient seen and evaluated for peripheral IV insertion using ultrasound guidance. ID band present, allergies verified and patient/nurse questioned of limb precautions. Skin integrity within normal limits at time of insertion. No evidence of ecchymosis, infiltration, hematoma, or any condition that would prevent safe insertion of a peripheral IV with ultrasound. Insertion Ultrasound guided access: 20 gauge 1.75 length Nexiva [employer] catheter inserted into right forearm. Peripheral IV placed per aseptic technique under ultrasound guidance. Positive blood return, flushes easily without symptoms, occlusive dressing applied. Patient tolerated procedure well. []Obtained labs. [x]Call light. [x]Bed locked. [x]Bed low. [x]Tray table within reach. [x]Physician and junior business analyst notified of the above Education Patient/Family informed to notify nurse of any complications including pain, redness, swelling, or leaking post-insertion. Thank you for allowing our team to participate in the care of this patient. Vascular Access Team [phone] Associated Order(s): IP CONSULT TO INTERVENTIONAL RADIOLOGY Interventional Radiology Consult Note [facility] temple marker [id number] - [facility] temple marker [id number] Admission Date: 03/23/2024 Requesting Provider/Service: Hayley Alcantar MD Reason for Consult: h/o renal transplant 2016, now with severe hydronephrosis. pls assess for nephrostogram and transplant neph tube placement per transplant surgery HPI: Lino Fontenot is a 58 y.o. male with a past medical history of polycystic kidney disease s/p renal transplant presenting with severe hydronephrosis. IR consulted for nephrostomy tube placement. Barriers to Consent: None Sedation Anticipated: Moderate Diet: DIET BARIATRIC STEP 1 Code Status: Full Code Anticoagulation: LVX not held Contrast allergy: None Pertinent Labs: PT/INR None this admission PLT 141 Cr 2.32 Laboratory Data: Lab Results Component Value Date/Time PT 13.2 02/27/2019 04:11 PM PT 10.2 02/27/2019 11:40 AM INR 1.0 02/27/2019 04:11 PM INR 0.94 02/27/2019 11:40 AM PTT 34.4 (H) 02/18/2017 07:05 PM Lab Results Component Value Date WBC 6.70 03/26/2024 HGB 8.0 (L) 03/26/2024 HCT 25.1 (L) 03/26/2024 PLATELET 141 (L) 03/26/2024 MCV 95.4 (H) 03/26/2024 Lab Results Component Value Date SODIUM 140 03/26/2024 POTASSIUM 5.1 (H) 03/26/2024 CHLORIDE 111 (H) 03/26/2024 CO2 21 03/26/2024 BUN 43 (H) 03/26/2024 CREATSERUM 2.32 (H) 03/26/2024 GLUCOSE 96 03/26/2024 Lab Results Component Value Date/Time GFR 32 (L) 03/26/2024 05:45 AM GFR 47 10/16/2022 11:39 AM GFR 47 10/16/2022 11:39 AM Allergies: Allergies Allergen Reactions Nsaids Cannot take due to renal transplant and gastric sleeve *Seasonal Runny Nose Imaging Findings: Severe hydronephrosis in the right lower quadrant transplant kidney, similar to the prior exam. Impression/Plan: Lino Fontenot is a 58 y.o. year old male who presents with right lower quadrant transplant kidney hydronephrosis. This appears amenable to percutaneous nephrostomy placement. Request for nephrostogram and nephrostomy tube received. This appears amenable to percutaneous nephrostomy with ultrasound guidance. Will schedule as imaging suite availability permits. Please make patient NPO at midnight prior to the procedure Coagulation goals: Hemoglobin > 8, Platelets > 50, INR < 1.5 Blood pressure goal: 160s/90 or lower Anticoagulation, if any not listed, will need to be held per guidelines Consult discussed with Dr. Uriarte from the requesting team on 03/26/2024 at 0900 Consult reviewed with IR Attending Dr. Titus who agrees with the above plan. Salbador Hardy MD 03/26/2024 9:09 AM Important Notes Procedures are performed with either moderate sedation or anesthesia services. Both require the patient to be NPO (which includes tube feeds). Patients will need to lie flat comfortably for the duration of the procedure. Please be aware that patients requiring anesthesia services will require additional coordination which may increase the time from consult to procedure. Associated Order(s): IP CONSULT TO SURGERY - TRANSPLANT (RENAL) TRANSPLANT SURGERY CONSULT NOTE: Consult: 03/25/2024, 7:37 AM Theatre Arts Professor: Aurora Guardado MD Reason for Consult: 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 CURRENT HOSPITALIZATION LOS: Admit Date: 03/23/2024 [facility] LOS: 2 days Lino Fontenot is a 58 y.o. 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 Shaw 08/2016 and bilateral nephrectomies ([place], 2021), currently POD2 from laparoscopic conversion of sleeve gastrectomy to May-en-Y gastric bypass for reflux. He has been recovering appropriately from a bariatric surgery standpoint and was planned for discharge today; however his creatinine has been uptrending. Baseline Cr around 1.3-1.7, but has been progressing in the past two years; 2.08 prior to surgery, today 2.60. K5.5 yesterday, treated with lokelma, now 5.0. Has good UOP (2.6L in past 24hrs). Transplant medicine following. Transplant US 03/24 showed severe hydronephrosis of transplanted kidney with normal resistive indices. Patient denies dysuria, hematuria, abdominal pain. Endorses good UOP at home prior to surgery. PROBLEM LIST: Principal Problem: Elective surgery Active Problems: Obesity MEDICAL HISTORY: Past Medical History: Diagnosis Date [...] HISTORY: Past Surgical History: Procedure Laterality Date EGD DIAGNOSTIC N/A 03/23/2024 Laterality: N/A; Surgeon: Griselda Gallegos MD; Location: [facility] MAIN OR NEPHRECTOMY OPEN Bilateral 01/23/2022 Laterality: Bilateral; Surgeon: Charley Mccracken MD, PhD; Location: [facility] MAIN OR NEPHRECTOMY 2021 APPENDECTOMY LAPAROSCOPIC N/A 12/26/2019 Laterality: N/A; Surgeon: Rosy Lynn DO; Location: [facility] MAIN OR GASTRECTOMY LONGITUDINAL (SLEEVE) LAPAROSCOPIC N/A 08/10/2019 Laterality: N/A; Surgeon: Griselda Gallegos MD; Location[facility] MA[facility] OR EGD DIAGNOSTIC N/A 08/10/2019 Laterality: N/A; Surgeon: Griselda Gallegos MD; Location[facility] MAIN OR EGD DIAGNOSTIC N/A 04/24/2019 Laterality: N/A; Surgeon: Nahomy Santos MD; Location: [facility] ENDOSCOPY LAPAROTOMY EXPLORATORY N/A 02/27/2019 Laterality: N/A; Surgeon: Raul Lott MD; Location: [facility] MA[facility] OR HERNIA REPAIR 02/27/2019 REPAIR HERNIA UMBILICAL OPEN W/ MESH N/A 05/09/2017 Laterality: N/A; Surgeon: CORNEL Elizondo; Location: [facility] MAIN OR KIDNEY TRANSPLANT W/O TUNUNAK NEPHRECTOMY N/A 09/25/2016 Laterality: N/A; Surgeon: Jose Shaw MD; Location: [facility] MAIN OR [place] ARTHROSCOPY KNEE MENISCAL TRNSPLJ MED/LAT Right 11/12/2014 [...] arthroscopy ADENOIDECTOMY EXCISION FISTULA LACTIFEROUS DUCT TONSILLECTOMY ALLERGIES: Allergies Allergen Reactions Nsaids Cannot take due to renal transplant and gastric sleeve *Seasonal Runny Nose PRIOR TO ARRIVAL MEDS: Current Facility-Administered Medications Medication Dose Route Frequency Provider Last Rate Last Admin Acetaminophen (TYLENOL) tablet 650 mg 650 mg Oral Q6HNS Jyotsna Bahena MD 650 mg at 03/25/24 0532 aspirin chewable tablet 81 mg 81 mg Oral QAM Tiki Mi APRN-SHAKE CUTTER 81 mg at 03/24/24 0802 carBAMazepine (TEGRETOL) chewable tablet 200 mg 200 mg Oral QAM Tiki Mi APRN-SHAKE CUTTER 200 mg at 03/24/24 0804 carBAMazepine (TEGRETOL) chewable tablet 300 mg 300 mg Oral Nightly Jyotsna Bahena MD 300 mg at 03/24/242021 Cetirizine (ZyrTEC) tablet 10 mg 10 mg Oral Daily REYES Ann Cyclobenzaprine (FLEXERIL) tablet 5 mg 5 mg Oral TID PRN Jyotsna Bahena MD 5 mg at 03/24/242024 Enoxaparin Sodium (LOVENOX) injection 40 mg 40 mg Subcutaneous Q24H Jyotsna Bahena MD 40 mg at 03/24/24 08 Escitalopram (LEXAPRO) tablet 20 mg 20 mg Oral QAM Jyotsna Bahena MD 20 mg at 03/24/24 08 Haloperidol (HALDOL) tablet 0.5 mg 0.5 mg Oral Q6H PRN Jyotsna Bahena MD Lactated ringers IV solution Intravenous Continuous Jamel Uriarte MD 50 mL/hr at 03/25/24 0358 Rate Verify at 03/25/24 0358 Montelukast (SINGULAIR) tablet 10 mg 10 mg Oral Daily REYES Ann Mycophenolate oral suspension 750 mg 750 mg Oral bid Jyotsna Bahena MD 750 mg at 03/24/242020 OLANZapine (zyPREXA) tablet 2.5 mg 2.5 mg Oral QHS Jyotsna Bahena MD 2.5 mg at 03/24/242154 Ondansetron (ZOFRAN) tablet 4 mg 4 mg Oral Q6HNS Jyotsna Bahena MD 4 mg at 03/25/24 0103 Or Ondansetron 4mg/2ml (ZOFRAN) injection 4 mg 4 mg Intravenous Q6HNS Jyotsna Bahena MD 4 mg at 03/23/24 182 oxyCODONE (ROXICODONE) tablet 5 mg 5 mg Oral Q3H PRN Jyotsna Bahena MD 5 mg at 03/23/242030 Pantoprazole (PROTONIX) tablet DR 40 mg 40 mg Oral BID REYES Ann 40 mg at 03/24/24 165 Polyethylene glycol (MIRALAX) packet 17 g 17 g Oral Daily Jyotsna Bahnea MD 17 g at 03/24/24 0803 Prochlorperazine (COMPAZINE) injection 5 mg 5 mg Intravenous Q6H PRN Jyotsna Bahena MD Or Prochlorperazine (COMPAZINE) tablet 5 mg 5 mg Oral Q6H PRN Jyotsna Bahena MD 5 mg at 03/24/242023 rOPINIRole (REQUIP) tablet 0.5 mg 0.5 mg Oral QHS Jyotsna Bahena MD 0.5 mg at 03/24/242023 Sodium chloride 0.9% IV solution 250 mL 250 mL Intravenous PRN Jyotsna Bahena MD Sucralfate (CARAFATE) tablet 1 g 1 g Oral BID AC Tiki Mi APRN-SHAKE CUTTER 1 g at 03/24/241652 tacrolimus (PROGRAF) susp 6 mg 6 mg Oral Q12H Griselda Gallegos MD 6 mg at 03/24/242020 REVIEW OF SYSTEMS: As Per HPI CURRENT MEDS: Scheduled Meds: Acetaminophen 650 mg Oral Q6HNS aspirin 81 mg Oral QAM carBAMazepine 200 mg Oral QAM carBAMazepine 300 mg Oral Nightly cetirizine 10 mg Oral Daily enoxaparin 40 mg Subcutaneous Q24H escitalopram 20 mg Oral QAM Montelukast 10 mg Oral Daily Mycophenolate 750 mg Oral bid OLANZapine 2.5 mg Oral QHS Ondansetron 4 mg Oral Q6HNS Or Ondansetron 4mg/2ml 4 mg Intravenous Q6HNS Pantoprazole 40 mg Oral BID Polyethylene glycol 17 g Oral Daily rOPINIRole 0.5 mg Oral QHS Sucralfate 1 g Oral BID AC tacrolimus 6 mg Oral Q12H Continuous Infusions: Lactated ringers 50 mL/hr at 03/25/24 0358 PRN Meds:Cyclobenzaprine, Haloperidol, oxyCODONE, Prochlorperazine OR Prochlorperazine, Sodium chloride 0.9% OBJECTIVE FINDINGS: Vital Signs (24hrs): Temp: [97.4 F (36.3 C)-98.1 F (36.7 C)] 97.7 F (36.5 C) Pulse (Heart Rate): [60-75] 75 Resp Rate: [16-18] 18 BP: (131-147)/(62-69) 145/65 O2 Sat (%): [92 %-94 %] 94 % Hemodynamic/Invasive Device Data (24 hrs): Pulmonary/Cardiac Hemodynamics Pulse (Heart Rate): 75 Neuro ICP/CPP Monitoring MAP (mmHg): 96 mmHg Neuro ICP/CPP Monitoring 2 MAP (mmHg): 96 mmHg Lines/Drains/Airways/Wounds: Patient Lines/Drains/Airways Status Active Lines, Drains, Airways, & Wound Overview Name Placement date Placement time Site Days Peripheral IV Line - Single Lumen 03/23/24 09 metacarpal vein (top of hand), right 20 gauge 03/23/24 0920 -- 1 Wound Surgical 03/23/24 1130 Abdomen 03/23/24 1130 Abdomen 1 Subcutaneous Infusion Insertion/Assess 01/23/22 1025 01/23/22 1025 -- 791 Fluid Management (24hrs): Intake/Output last 3 shifts: I/O last 3 completed shifts: In: 3059.4 [P.O.:1055; I.V.:1914.4; Other:90] Out: 2650 [Urine:2650] Intake/Output this shift: No intake/output data recorded. PHYSICAL EXAM: Current vitals: BP 145/65 (BP Location: Left arm, BP Position: Lying) Pulse 75 Temp 97.7 F (36.5 C) (Oral) Resp 18 Ht 1.702 m (5' 7 ) Wt 106 kg (233 lb 9.6 oz) SpO2 94% BMI 36.59 kg/m Smoking Status Former General: No acute distress Neuro: alert and oriented x 3 Cardiovascular: regular rate and rhythm, no murmurs, rubs, gallops Pulmonary: normal work of breathing on room air Abdomen: soft, mildly distended, appropriately tender to palpation, lap incision sites c/d/I with dermabond, no TTP to lower quadrants Extremities: warm and well perfused, no pitting edema DIAGNOSTIC RESULTS/PROCEDURES: Imaging/Radiological Studies: Transplant US 03/24 - severe hydronephrosis of transplanted kidney with normal resistive indices Labs-CBC: WBC/Hgb/Hct/Plts: 9.82/8.0/25.1/150 (03/25 310) Labs-Chem 7([facility]): Bun/Creat/Cl/CO2/Glucose: 47/2.60/110/24/111 (03/25 310) Na/K+/Phos/Mg/Ca: 141/5.0/2.9/1.9/8.7 (03/25 310) Labs-Coags: ASSESSMENT/PLAN: Lino Fontenot is a 58 y.o. 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 Shaw 08/2016 and bilateral nephrectomies ([place], 2021), currently POD2 from lap conversion of sleeve gastrectomy to RNYGB, found to have severe hydronephrosis of transplanted kidney seen on renal US. - Place bray for decompression - Repeat transplant renal US this afternoon - Further recs to follow Patient was discussed with fellow Dr. Ketan Mcduffie. Thank you for the opportunity to participate in the care of this patient. Aurora Guardado MD General Surgery PGY-1 Transplant - Renal Associated attestation - Suzie Giraldo MD, PhD - 03/25/2024 11:09 AM EDT I. Suzie Giraldo MD, PhD, have independently seen and examined the patient, reviewed the labs, discussed the patient with the fellow/resident and agree with the note. I agree with the team plan: please repeat renal ultrasound to see if hydronephrosis improve with Bray. If not he will need a nephrostogram by IR. Associated Order(s): IP CONSULT TO NEPHROLOGY - TRANSPLANT (MEDICINE) Transplant Consult Note HPI: 56M with HX of PCKD s/p DDKT 08/2016 and BL nephrectomies presented for conversion for sleeve to R&Y 2/2 reflux. BL uncertain. Was around 1.3-1.5. But starting last year looks like it has been progressing. Cr recently in 2s. 02/24 2.65 then 2.2 prior to procedure. Now 2.17. Current IS Tac 6/6 and Myfortic 720. 4008/550 UOP . K 5.5. Bicarb 19. Hgb 9.3 from 11.2. Seen at bedside. Resting in bed. Has abd pain but doing well otherwise. No changes in urination. Past Medical History: Diagnosis Date Anxiety disorder [...] repaired Past Surgical History: Procedure Laterality Date EGD DIAGNOSTIC N/A 03/23/2024 Laterality: N/A; Surgeon: Griselda Gallegos MD; Location: [facility] MAIN OR NEPHRECTOMY OPEN Bilateral 01/23/2022 Laterality: Bilateral; Surgeon: Charley Mccracken MD, PhD; [facility] 2021 APPENDECTOMY LAPAROSCOPIC N/A 12/26/2019 Laterality: N/A; Surgeon: Rosy Lynn DO; Location: [facility] MAIN OR GASTRECTOMY LONGITUDINAL (SLEEVE) LAPAROSCOPIC N/A 08/10/2019 Laterality: N/A; Surgeon: Griselda Gallegos MD; Location: [facility] MAIN OR EGD DIAGNOSTIC N/A 08/10/2019 Laterality: N/A; Surgeon: Griselda Gallegos MD; Location: [facility] SAME DAY SURGERY MAIN OR EGD DIAGNOSTIC N/A 04/24/2019 Laterality: N/A; Surgeon: Nahomy Santos MD; Location: [facility] ENDOSCOPY LAPAROTOMY EXPLORATORY N/A 02/27/2019 Laterality: N/A; Surgeon: Raul Lott MD; Location: [facility] MAIN OR HERNIA REPAIR 02/27/2019 REPAIR HERNIA UMBILICAL OPEN W/ MESH N/A 05/09/2017 Laterality: N/A; Surgeon: CORNEL Elizondo; Location: [facility] MAIN OR KIDNEY TRANSPLANT W/O TUNUNAK NEPHRECTOMY N/A 09/25/2016 Laterality: N/A; Surgeon: Jose Shaw MD; Location: [facility] MAIN OR [place] ARTHROSCOPY KNEE MENISCAL TRNSPLJ MED/LAT Right 11/12/2014 [...] arthroscopy ADENOIDECTOMY EXCISION FISTULA LACTIFEROUS DUCT TONSILLECTOMY Social History Socioeconomic History Marital status: Spouse name: Derick Number of children: 3 Years of education: 12 Tobacco Use Smoking status: Former Current packs/day: 0.00 Average packs/day: 1 pack/day for 20.0 years (20.0 ttl pk-yrs) Types: Cigarettes Start date: 07/01/1982 Quit date: 12/30/1999 Years since quittin.2 Passive exposure: Past Smokeless tobacco: Never Vaping Use Vaping status: Never Used Substance and Sexual Activity Alcohol use: Not Currently Comment: none Drug use: Never Sexual activity: Yes Partners: Female control/protection: Hysterectomy Comment: Other Topics Concern Occupational Exposure No Hobby Hazards No Domestic Violence No Social Determinants of Health Food Insecurity: No Food Insecurity (03/23/2024) Hunger Vital Sign Worried About Running Out of Food in the Last Year: Never true Ran Out of Food in the Last Year: Never true Transportation Needs: No Transportation Needs (03/23/2024) PRAPARE - Transportation Lack of Transportation (Medical): No Lack of Transportation (Non-Medical): No Intimate Partner Violence: Not At Risk (03/23/2024) Humiliation, Afraid, Rape, and Kick questionnaire Fear of Current or Ex-Partner: No Emotionally Abused: No Physically Abused: No Sexually Abused: No Housing Stability: Unknown (03/23/2024) Housing Stability Vital Sign Unable to Pay for Housing in the Last Year: No Homeless in the Last Year: No family history includes Alzheimer's in his maternal grandmother; Diabetes in his father and sister; Hypertension in his mother; Kidney Disease in his mother; Other - Specify in his maternal grandfather. Objective: BP 131/63 (BP Location: Left arm, BP Position: Lying) Pulse 75 Temp 97.4 F (36.3 C) (Oral) Resp 16 Ht 1.702 m (5' 7 ) Wt 106 kg (233 lb 9.6 oz) SpO2 92% BMI 36.59 kg/m Smoking Status Former Gen: NAD Heart: audible heart sounds, minimal edema Lungs: CTAB Abd: soft, NT Neuro: Awake and alert Bun/Creat/Cl/CO2/Glucose: 45/2.17/111/19/144 (03/24 157) WBC/Hgb/Hct/Plts: 14.38/9.3/28.3/179 (03/24 157) Assessment / Plan 56M with HX of PCKD s/p DDKT 08/2016 and BL nephrectomies presented for conversion for sleeve to R&Y 2/2 reflux. Transplant consulted for IS management. Immunosuppression: Continue current management. Check Tac troughs Saturday and Saturday. Graft function Hyperkalemia - BL difficult to assess. Likely 1.3-1.6. Recently had Cr of 2.65. Recheck 2.2. Now 2.08. Acidosis and hyperkalemia noted. Please check Transplant US. Recommend an amp of bicarb and lokelma. Agree with fluids at thsi time. Enrique Ambriz Nephrology Fellow PGY-7 Please see attending attestation for final recommendations. Attending Physician Addendum I saw and personally examined Mr. Fontenot with the renal team. I discussed the findings and plan of the case. I agree with the history, physical examination, and medical decisions as outlined above. VS Temp: [97.4 F (36.3 C)-98.2 F (36.8 C)] 98.1 F (36.7 C) Pulse (Heart Rate): [60-76] 64 Resp Rate: [16] 16 BP: (122-151)/(62-78) 142/69 O2 Sat (%): [92 %-93 %] 92 % Weight: [106 kg (233 lb 9.6 oz)] 106 kg (233 lb 9.6 oz) I/O last 3 completed shifts: In: 4035.1 [P.O.:700; I.V.:3335.1] Out: 1150 [Urine:1150] I/O this shift: In: 320 [P.O.:320] Out: 700 [Urine:700] LABS Lab Results Component Value Date WBC 14.38 (H) 03/24/2024 HGB 9.3 (L) 03/24/2024 PLATELET 179 03/24/2024 Lab Results Component Value Date SODIUM 138 03/24/2024 POTASSIUM 5.0 03/24/2024 CHLORIDE 111 (H) 03/24/2024 CO2 19 (L) 03/24/2024 BUN 45 (H) 03/24/2024 CREATSERUM 2.17 (H) 03/24/2024 GLUCOSE 144 (H) 03/24/2024 Lab Results Component Value Date CALCIUM 8.6 03/24/2024 PHOSPHORUS 2.7 03/24/2024 Lab Results Component Value Date CREATSERUM 2.17 (H) 03/24/2024 CREATSERUM 2.08 (H) 03/23/2024 CREATSERUM 2.65 (H) 02/25/2024 CREATSERUM 1.63 (H) 10/16/2022 CREATSERUM 1.63 10/16/2022 CREATSERUM 1.51 (H) 04/05/2022 CREATSERUM 1.51 04/05/2022 CREATSERUM 1.53 (H) 01/02/2022 CREATSERUM 1.53 01/02/2022 Primo Barber MD, DIANN Assembly Line Machine Operator of Clinical Medicine [facility] documented in this encounter [facility] 03-26-2024 Plan of care note Problem: Adult Inpatient Plan of Care Goal: Plan of Care Review Outcome: Progressing Goal: Patient-Specific Goal (Individualized) Outcome: Progressing Goal: Absence of Hospital-Acquired Illness or Injury Outcome: Progressing Goal: Optimal Comfort and Wellbeing Outcome: Progressing Goal: Readiness for Transition of Care Outcome: Progressing Problem: VTE (Venous Thromboembolism) Goal: Tissue Perfusion Outcome: Progressing Goal: Right Ventricular Function Outcome: Progressing Problem: Pain Acute Goal: Optimal Pain Control and Function Outcome: Progressing Problem: Bariatric Surgery Goal: Optimal Coping with Surgery Outcome: Progressing Goal: Absence of Bleeding Outcome: Progressing Goal: Fluid and Electrolyte Balance Outcome: Progressing Goal: Effective Gastrointestinal Motility and Elimination Outcome: Progressing Goal: Blood Glucose Level Within Desired Range Outcome: Progressing Goal: Absence of Infection Signs and Symptoms Outcome: Progressing Goal: Anesthesia/Sedation Recovery Outcome: Progressing Goal: Optimal Pain Control and Function Outcome: Progressing Goal: Nausea and Vomiting Relief Outcome: Progressing Goal: Effective Urinary Elimination Outcome: Progressing Goal: Effective Oxygenation and Ventilation Outcome: Progressing Problem: VTE (Venous Thromboembolism) Goal: Tissue Perfusion Outcome: Progressing Problem: Bariatric Surgery Goal: Optimal Coping with Surgery Outcome: Progressing Problem: Pain Acute Goal: Optimal Pain Control and Function Outcome: Progressing [facility] 03-26-2024 Consult note Associated Order (s): IP CONSULT TO INTERVENTIONAL RADIOLOGY Interventional Radiology Consult Note [facility] [place] [id number] - [facility] [place] [id number] Admission Date: 03/23/2024 Requesting Provider/Service: Hayley Alcantar MD Reason for Consult: h/o renal transplant 2016, now with severe hydronephrosis. pls assess for nephrostogram and transplant neph tube placement per transplant surgery HPI: Lino Fontenot is a 58 y.o. male with a past medical history of polycystic kidney disease s/p renal transplant presenting with severe hydronephrosis. IR consulted for nephrostomy tube placement. Barriers to Consent: None Sedation Anticipated: Moderate Diet: DIET BARIATRIC STEP 1 Code Status: Full Code Anticoagulation: LVX not held Contrast allergy: None Pertinent Labs: PT/INR None this admission PLT 141 Cr 2.32 Laboratory Data: Lab Results Component Value Date/Time PT 13.2 02/27/2019 04:11 PM PT 10.2 02/27/2019 11:40 AM INR 1.0 02/27/2019 04:11 PM INR 0.94 02/27/2019 11:40 AM PTT 34.4 (H) 02/18/2017 07:05 PM Lab Results Component Value Date WBC 6.70 03/26/2024 HGB 8.0 (L) 03/26/2024 HCT 25.1 (L) 03/26/2024 PLATELET 141 (L) 03/26/2024 MCV 95.4 (H) 03/26/2024 Lab Results Component Value Date SODIUM 140 03/26/2024 POTASSIUM 5.1 (H) 03/26/2024 CHLORIDE 111 (H) 03/26/2024 CO2 21 03/26/2024 BUN 43 (H) 03/26/2024 CREATSERUM 2.32 (H) 03/26/2024 GLUCOSE 96 03/26/2024 Lab Results Component Value Date/Time GFR 32 (L) 03/26/2024 05:45 AM GFR 47 10/16/2022 11:39 AM GFR 47 10/16/2022 11:39 AM Allergies: Allergies Allergen Reactions Nsaids Cannot take due to renal transplant and gastric sleeve *Seasonal Runny Nose Imaging Findings: Severe hydronephrosis in the right lower quadrant transplant kidney, similar to the prior exam. Impression/Plan: Lino Fontenot is a 58 y.o. year old male who presents with right lower quadrant transplant kidney hydronephrosis. This appears amenable to percutaneous nephrostomy placement. Request for nephrostogram and nephrostomy tube received. This appears amenable to percutaneous nephrostomy with ultrasound guidance. Will schedule as imaging suite availability permits. Please make patient NPO at midnight prior to the procedure Coagulation goals: Hemoglobin > 8, Platelets > 50, INR < 1.5 Blood pressure goal: 160s/90 or lower Anticoagulation, if any not listed, will need to be held per guidelines Consult discussed with Dr. Uriarte from the requesting team on 03/26/2024 at 0900 Consult reviewed with IR Attending Dr. Titus who agrees with the above plan. Salbador Hardy MD 03/26/2024 9:09 AM Important Notes Procedures are performed with either moderate sedation or anesthesia services. Both require the patient to be NPO (which includes tube feeds). Patients will need to lie flat comfortably for the duration of the procedure. Please be aware that patients requiring anesthesia services will require additional coordination which may increase the time from consult to procedure. [facility] Work Phone: 03-25-2024 Plan of care note Plan of care update - Repeat U/S renal reviewed w/ concern for persistent severe hydronephrosis in transplant kidney despite bray placement - Recommend IR consult for nephrostogram and transplant neph tube placement Thank you for allowing us to participate in the care of your patient. Should you have any further questions, please do not hesitate to contact the surgery consult team. PER Bentley MD PGY4 General Surgery *[id number] [facility] 03-25-2024 Plan of care note Problem: Adult Inpatient Plan of Care Goal: Plan of Care Review Outcome: Progressing Goal: Patient-Specific Goal (Individualized) Outcome: Progressing Goal: Absence of Hospital-Acquired Illness or Injury Outcome: Progressing Goal: Optimal Comfort and Wellbeing Outcome: Progressing Goal: Readiness for Transition of Care Outcome: Progressing Problem: VTE (Venous Thromboembolism) Goal: Tissue Perfusion Outcome: Progressing Goal: Right Ventricular Function Outcome: Progressing Problem: Pain Acute Goal: Optimal Pain Control and Function Outcome: Progressing Problem: Bariatric Surgery Goal: Optimal Coping with Surgery Outcome: Progressing Goal: Absence of Bleeding Outcome: Progressing Goal: Fluid and Electrolyte Balance Outcome: Progressing Goal: Effective Gastrointestinal Motility and Elimination Outcome: Progressing Goal: Blood Glucose Level Within Desired Range Outcome: Progressing Goal: Absence of Infection Signs and Symptoms Outcome: Progressing Goal: Anesthesia/Sedation Recovery Outcome: Progressing Goal: Optimal Pain Control and Function Outcome: Progressing Goal: Nausea and Vomiting Relief Outcome: Progressing Goal: Effective Urinary Elimination Outcome: Progressing Goal: Effective Oxygenation and Ventilation Outcome: Progressing Problem: Pain Acute Goal: Optimal Pain Control and Function Outcome: Progressing Problem: Bariatric Surgery Goal: Optimal Coping with Surgery Outcome: Progressing [facility] 03-25-2024 Consult note Associated Order (s): IP CONSULT TO SURGERY - TRANSPLANT (RENAL) TRANSPLANT SURGERY CONSULT NOTE: Consult: 03/25/2024, 7:37 AM Theatre Arts Professor: Aurora Guardado MD Reason for Consult: 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 CURRENT HOSPITALIZATION LOS: Admit Date: 03/23/2024 [facility] LOS: 2 days Lino Fontenot is a 58 y.o. 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 Shaw 08/2016 and bilateral nephrectomies (Gon, 2021), currently POD2 from laparoscopic conversion of sleeve gastrectomy to May-en-Y gastric bypass for reflux. He has been recovering appropriately from a bariatric surgery standpoint and was planned for discharge today; however his creatinine has been uptrending. Baseline Cr around 1.3-1.7, but has been progressing in the past two years; 2.08 prior to surgery, today 2.60. K5.5 yesterday, treated with lokelma, now 5.0. Has good UOP (2.6L in past 24hrs). Transplant medicine following. Transplant US 03/24 showed severe hydronephrosis of transplanted kidney with normal resistive indices. Patient denies dysuria, hematuria, abdominal pain. Endorses good UOP at home prior to surgery. 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 Chronic kidney disease, stage 4, severely decreased GFR dialysis 3x weekly Depression 2010 07 suicide attempt in 2010 Diverticulosis Dry skin [...] HISTORY: Past Surgical History: Procedure Laterality Date EGD DIAGNOSTIC N/A 03/23/2024 Laterality: N/A; Surgeon: Griselda Gallegos MD; Location: [facility] SAME DAY SURGERY MAIN OR NEPHRECTOMY OPEN Bilateral 01/23/2022 Laterality: Bilateral; Surgeon: Charley Mccracken MD, PhD; Location: [facility] [place] MAIN OR NEPHRECTOMY 2021 APPENDECTOMY LAPAROSCOPIC N/A 12/26/2019 Laterality: N/A; Surgeon: Rosy Lynn DO; Location: [facility] MAIN OR GASTRECTOMY LONGITUDINAL (SLEEVE) LAPAROSCOPIC N/A 08/10/2019 Laterality: N/A; Surgeon: Griselda Gallegos MD; Location: [facility] SAME DAY SURGERY MAIN OR EGD DIAGNOSTIC N/A 08/10/2019 Laterality: N/A; Surgeon: Griselda Gallegos MD; Location: [facility] SAME DAY SURGERY MAIN OR EGD DIAGNOSTIC N/A 04/24/2019 Laterality: N/A; Surgeon: Nahomy Santos MD; Location: [facility] LAPAROTOMY EXPLORATORY N/A 02/27/2019 Laterality: N/A; Surgeon: Raul Lott MD; Location: [facility] MAIN OR HERNIA REPAIR 02/27/2019 REPAIR HERNIA UMBILICAL OPEN W/ MESH N/A 05/09/2017 Laterality: N/A; Surgeon: CORNEL Elizondo; Location: [facility] MAIN OR KIDNEY TRANSPLANT W/O TUNUNAK NEPHRECTOMY N/A 09/25/2016 Laterality: N/A; Surgeon: Jose Shaw MD; Location: [facility] MAIN OR [place] ARTHROSCOPY KNEE MENISCAL TRNSPLJ MED/LAT Right 11/12/2014 [...] arthroscopy ADENOIDECTOMY EXCISION FISTULA LACTIFEROUS DUCT TONSILLECTOMY ALLERGIES: Allergies Allergen Reactions Nsaids Cannot take due to renal transplant and gastric sleeve *Seasonal Runny Nose PRIOR TO ARRIVAL MEDS: Current Facility-Administered Medications Medication Dose Route Frequency Provider Last Rate Last Admin Acetaminophen (TYLENOL) tablet 650 mg 650 mg Oral Q6HNS Jyotsna Bahena MD 650 mg at 03/25/24 0532 aspirin chewable tablet 81 mg 81 mg Oral QAM REYES Ann 81 mg at 03/24/24 0802 carBAMazepine (TEGRETOL) chewable tablet 200 mg 200 mg Oral QAM REYES Ann 200 mg at 03/24/24 0804 carBAMazepine (TEGRETOL) chewable tablet 300 mg 300 mg Oral Nightly Jyotsna Bahena MD 300 mg at 03/24/242021 Cetirizine (ZyrTEC) tablet 10 mg 10 mg Oral Daily REYES Ann Cyclobenzaprine (FLEXERIL) tablet 5 mg 5 mg Oral TID PRN Jyotsna Bahena MD 5 mg at 03/24/242024 Enoxaparin Sodium (LOVENOX) injection 40 mg 40 mg Subcutaneous Q24H Jyotsna D Josef, MD 40 mg at 03/24/24 0803 Escitalopram (LEXAPRO) tablet 20 mg 20 mg Oral QAM Jyotsna Bahena MD 20 mg at 03/24/24 08 Haloperidol (HALDOL) tablet 0.5 mg 0.5 mg Oral Q6H PRN Jyotsna Bahena MD Lactated ringers IV solution Intravenous Continuous Jamel Uriarte MD 50 mL/hr at 03/25/24 0358 Rate Verify at 03/25/24 0358 Montelukast (SINGULAIR) tablet 10 mg 10 mg Oral Daily Tiki Mi APRN-SHAKE CUTTER Mycophenolate oral suspension 750 mg 750 mg Oral bid Jyotsna Bahena MD 750 mg at 03/24/242020 OLANZapine (zyPREXA) tablet 2.5 mg 2.5 mg Oral QHS Jyotsna Bahena MD 2.5 mg at 03/24/242154 Ondansetron (ZOFRAN) tablet 4 mg 4 mg Oral Q6HNS Jyotsna Bahena MD 4 mg at 03/25/24 010 Or Ondansetron 4mg/2ml (ZOFRAN) injection 4 mg 4 mg Intravenous Q6HNS Jyotsna Bahena MD 4 mg at 03/23/24 182 oxyCODONE (ROXICODONE) tablet 5 mg 5 mg Oral Q3H PRN Jyotsna Bahena MD 5 mg at 03/23/242030 Pantoprazole (PROTONIX) tablet DR 40 mg 40 mg Oral BID Tiki Mi APRN-SHAKE CUTTER 40 mg at 03/24/24 165 Polyethylene glycol (MIRALAX) packet 17 g 17 g Oral Daily Jyotsna Bahena MD 17 g at 03/24/24 0803 Prochlorperazine (COMPAZINE) injection 5 mg 5 mg Intravenous Q6H PRN Jyotsna Bahena MD Or Prochlorperazine (COMPAZINE) tablet 5 mg 5 mg Oral Q6H PRN Jyotsna Bahena MD 5 mg at 03/24/242023 rOPINIRole (REQUIP) tablet 0.5 mg 0.5 mg Oral QHS Jyotsna Bahena MD 0.5 mg at 03/24/242023 Sodium chloride 0.9% IV solution 250 mL 250 mL Intravenous PRN Jyotsna Bahena MD Sucralfate (CARAFATE) tablet 1 g 1 g Oral BID AC Tiki Mi APRN-SHAKE CUTTER 1 g at 03/24/241652 tacrolimus (PROGRAF) susp 6 mg 6 mg Oral Q12H Griselda Gallegos MD 6 mg at 03/24/242020 REVIEW OF SYSTEMS: As Per HPI CURRENT MEDS: Scheduled Meds: Acetaminophen 650 mg Oral Q6HNS aspirin 81 mg Oral QAM carBAMazepine 200 mg Oral QAM carBAMazepine 300 mg Oral Nightly cetirizine 10 mg Oral Daily enoxaparin 40 mg Subcutaneous Q24H escitalopram 20 mg Oral QAM Montelukast 10 mg Oral Daily Mycophenolate 750 mg Oral bid OLANZapine 2.5 mg Oral QHS Ondansetron 4 mg Oral Q6HNS Or Ondansetron 4mg/2ml 4 mg Intravenous Q6HNS Pantoprazole 40 mg Oral BID Polyethylene glycol 17 g Oral Daily rOPINIRole 0.5 mg Oral QHS Sucralfate 1 g Oral BID AC tacrolimus 6 mg Oral Q12H Continuous Infusions: Lactated ringers 50 mL/hr at 03/25/24 0358 PRN Meds:Cyclobenzaprine, Haloperidol, oxyCODONE, Prochlorperazine OR Prochlorperazine, Sodium chloride 0.9% OBJECTIVE FINDINGS: Vital Signs (24hrs): Temp: [97.4 F (36.3 C)-98.1 F (36.7 C)] 97.7 F (36.5 C) Pulse (Heart Rate): [60-75] 75 Resp Rate: [16-18] 18 BP: (131-147)/(62-69) 145/65 O2 Sat (%): [92 %-94 %] 94 % Hemodynamic/Invasive Device Data (24 hrs): Pulmonary/Cardiac Hemodynamics Pulse (Heart Rate): 75 Neuro ICP/CPP Monitoring MAP (mmHg): 96 mmHg Neuro ICP/CPP Monitoring 2 MAP (mmHg): 96 mmHg Lines/Drains/Airways/Wounds: Patient Lines/Drains/Airways Status Active Lines, Drains, Airways, & Wound Overview Name Placement date Placement time Site Days Peripheral IV Line - Single Lumen 03/23/24 0920 metacarpal vein (top of hand), right 20 gauge 03/23/24 0920 -- 1 Wound Surgical 03/23/24 1130 Abdomen 03/23/24 1130 Abdomen 1 Subcutaneous Infusion Insertion/Assess 01/23/22 1025 01/23/22 1025 -- 791 Fluid Management (24hrs): Intake/Output last 3 shifts: I/O last 3 completed shifts: In: 3059.4 [P.O.:1055; I.V.:1914.4; Other:90] Out: 2650 [Urine:2650] Intake/Output this shift: No intake/output data recorded. PHYSICAL EXAM: Current vitals: BP 145/65 (BP Location: Left arm, BP Position: Lying) Pulse 75 Temp 97.7 F (36.5 C) (Oral) Resp 18 Ht 1.702 m (5' 7 ) Wt 106 kg (233 lb 9.6 oz) SpO2 94% BMI 36.59 kg/m Smoking Status Former General: No acute distress Neuro: alert and oriented x 3 Cardiovascular: regular rate and rhythm, no murmurs, rubs, gallops Pulmonary: normal work of breathing on room air Abdomen: soft, mildly distended, appropriately tender to palpation, lap incision sites c/d/I with dermabond, no TTP to lower quadrants Extremities: warm and well perfused, no pitting edema DIAGNOSTIC RESULTS/PROCEDURES: Imaging/Radiological Studies: Transplant US 03/24 - severe hydronephrosis of transplanted kidney with normal resistive indices Labs-CBC: WBC/Hgb/Hct/Plts: 9.82/8.0/25.1/150 (03/25 310) Labs-Chem 7([facility]): Bun/Creat/Cl/CO2/Glucose: 47/2.60/110/24/111 (03/25 310) Na/K+/Phos/Mg/Ca: 141/5.0/2.9/1.9/8.7 (03/25 310) Labs-Coags: ASSESSMENT/PLAN: Lino Fontenot is a 58 y.o. 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 Shaw 08/2016 and bilateral nephrectomies (Gong, 2021), currently POD2 from lap conversion of sleeve gastrectomy to RNYGB, found to have severe hydronephrosis of transplanted kidney seen on renal US. - Place bray for decompression - Repeat transplant renal US this afternoon - Further recs to follow Patient was discussed with fellow Dr. Ketan Mcduffie. Thank you for the opportunity to participate in the care of this patient. Aurora Guardado MD General Surgery PGY-1 Transplant - Renal Associated attestation - Suzie Giraldo MD, PhD - 03/25/2024 11:09 AM EDT I. Suzie Giraldo MD, PhD, have independently seen and examined the patient, reviewed the labs, discussed the patient with the fellow/resident and agree with the note. I agree with the team plan: please repeat renal ultrasound to see if hydronephrosis improve with Bray. If not he will need a nephrostogram by IR. [facility] Work Phone: 03-24-2024 Consult note Associated Order (s): IP CONSULT TO NEPHROLOGY - TRANSPLANT (MEDICINE) Transplant Consult Note HPI: 56M with HX of PCKD s/p DDKT 08/2016 and BL nephrectomies presented for conversion for sleeve to R&Y 2/2 reflux. BL uncertain. Was around 1.3-1.5. But starting last year looks like it has been progressing. Cr recently in 2s. 02/24 2.65 then 2.2 prior to procedure. Now 2.17. Current IS Tac 6/6 and Myfortic 720. 4008/550 UOP . K 5.5. Bicarb 19. Hgb 9.3 from 11.2. Seen at bedside. Resting in bed. Has abd pain but doing well otherwise. No changes in urination. Past Medical History: Diagnosis Date Anxiety disorder [...] repaired Past Surgical History: Procedure Laterality Date EGD DIAGNOSTIC N/A 03/23/2024 Laterality: N/A; Surgeon: Griselda Gallegos MD; Location: [facility] SURGERY MAIN OR NEPHRECTOMY OPEN Bilateral 01/23/2022 Laterality: Bilateral; Surgeon: Charley Mccracken MD, PhD; Location[facility] MA[facility] OR NEPHRECTOMY 2021 APPENDECTOMY LAPAROSCOPIC N/A 12/26/2019 Laterality: N/A; Surgeon: Rosy Lynn DO; Location: [facility] MAIN OR GASTRECTOMY LONGITUDINAL (SLEEVE) LAPAROSCOPIC N/A 08/10/2019 Laterality: N/A; Surgeon: Griselda Gallegos MD; Location: [facility]GERY MAIN OR EGD DIAGNOSTIC N/A 08/10/2019 Laterality: N/A; Surgeon: Griselda Gallegos MD; Location: [facility] SAME DAY SURGERY MAIN OR EGD DIAGNOSTIC N/A 04/24/2019 Laterality: N/A; Surgeon: Nahomy Santos MD; Location: [facility] END[facility] LAPAROTOMY EXPLORATORY N/A 02/27/2019 Laterality: N/A; Surgeon: Raul Lott MD; Location: [facility] MAIN OR HERNIA REPAIR 02/27/2019 REPAIR HERNIA UMBILICAL OPEN W/ MESH N/A 05/09/2017 Laterality: N/A; Surgeon: CORNEL Elizondo; Location: [facility] MAIN OR KIDNEY TRANSPLANT W/O TUNUNAK NEPHRECTOMY N/A 09/25/2016 Laterality: N/A; Surgeon: Jose Shaw MD; Location: [facility] MAIN OR [place] ARTHROSCOPY KNEE MENISCAL TRNSPLJ MED/LAT Right 11/12/2014 [...] arthroscopy ADENOIDECTOMY EXCISION FISTULA LACTIFEROUS DUCT TONSILLECTOMY Social History Socioeconomic History Marital status: Spouse name: Derick Number of children: 3 Years of education: 12 Tobacco Use Smoking status: Former Current packs/day: 0.00 Average packs/day: 1 pack/day for 20.0 years (20.0 ttl pk-yrs) Types: Cigarettes Start date: 07/01/1982 Quit date: 12/30/1999 Years since quittin.2 Passive exposure: Past Smokeless tobacco: Never Vaping Use Vaping status: Never Used Substance and Sexual Activity Alcohol use: Not Currently Comment: none Drug use: Never Sexual activity: Yes Partners: Female control/protection: Hysterectomy Comment: Other Topics Concern Occupational Exposure No Hobby Hazards No Domestic Violence No Social Determinants of Health Food Insecurity: No Food Insecurity (03/23/2024) Hunger Vital Sign Worried About Running Out of Food in the Last Year: Never true Ran Out of Food in the Last Year: Never true Transportation Needs: No Transportation Needs (03/23/2024) PRAPARE - Transportation Lack of Transportation (Medical): No Lack of Transportation (Non-Medical): No Intimate Partner Violence: Not At Risk (03/23/2024) Humiliation, Afraid, Rape, and Kick questionnaire Fear of Current or Ex-Partner: No Emotionally Abused: No Physically Abused: No Sexually Abused: No Housing Stability: Unknown (03/23/2024) Housing Stability Vital Sign Unable to Pay for Housing in the Last Year: No Homeless in the Last Year: No family history includes Alzheimer's in his maternal grandmother; Diabetes in his father and sister; Hypertension in his mother; Kidney Disease in his mother; Other - Specify in his maternal grandfather. Objective: BP 131/63 (BP Location: Left arm, BP Position: Lying) Pulse 75 Temp 97.4 F (36.3 C) (Oral) Resp 16 Ht 1.702 m (5' 7 ) Wt 106 kg (233 lb 9.6 oz) SpO2 92% BMI 36.59 kg/m Smoking Status Former Gen: NAD Heart: audible heart sounds, minimal edema Lungs: CTAB Abd: soft, NT Neuro: Awake and alert Bun/Creat/Cl/CO2/Glucose: 45/2.17/111/19/144 (09/24 0157) WBC/Hgb/Hct/Plts: 14.38/9.3/28.3/179 (03/24 157) Assessment / Plan 56M with HX of PCKD s/p DDKT 08/2016 and BL nephrectomies presented for conversion for sleeve to R&Y 2/2 reflux. Transplant consulted for IS management. Immunosuppression: Continue current management. Check Tac troughs Saturday and Saturday. Graft function Hyperkalemia - BL difficult to assess. Likely 1.3-1.6. Recently had Cr of 2.65. Recheck 2.2. Now 2.08. Acidosis and hyperkalemia noted. Please check Transplant US. Recommend an amp of bicarb and lokelma. Agree with fluids at thsi time. Enrique Ambriz Nephrology Fellow PGY-7 Please see attending attestation for final recommendations. Attending Physician Addendum I saw and personally examined Mr. Fontenot with the renal team. I discussed the findings and plan of the case. I agree with the history, physical examination, and medical decisions as outlined above. VS Temp: [97.4 F (36.3 C)-98.2 F (36.8 C)] 98.1 F (36.7 C) Pulse (Heart Rate): [60-76] 64 Resp Rate: [16] 16 BP: (122-151)/(62-78) 142/69 O2 Sat (%): [92 %-93 %] 92 % Weight: [106 kg (233 lb 9.6 oz)] 106 kg (233 lb 9.6 oz) I/O last 3 completed shifts: In: 4035.1 [P.O.:700; I.V.:3335.1] Out: 1150 [Urine:1150] I/O this shift: In: 320 [P.O.:320] Out: 700 [Urine:700] LABS Lab Results Component Value Date WBC 14.38 (H) 03/24/2024 HGB 9.3 (L) 03/24/2024 PLATELET 179 03/24/2024 Lab Results Component Value Date SODIUM 138 03/24/2024 POTASSIUM 5.0 03/24/2024 CHLORIDE 111 (H) 03/24/2024 CO2 19 (L) 03/24/2024 BUN 45 (H) 03/24/2024 CREATSERUM 2.17 (H) 03/24/2024 GLUCOSE 144 (H) 03/24/2024 Lab Results Component Value Date CALCIUM 8.6 03/24/2024 PHOSPHORUS 2.7 03/24/2024 Lab Results Component Value Date CREATSERUM 2.17 (H) 03/24/2024 CREATSERUM 2.08 (H) 03/23/2024 CREATSERUM 2.65 (H) 02/25/2024 CREATSERUM 1.63 (H) 10/16/2022 CREATSERUM 1.63 10/16/2022 CREATSERUM 1.51 (H) 04/05/2022 CREATSERUM 1.51 04/05/2022 CREATSERUM 1.53 (H) 01/02/2022 CREATSERUM 1.53 01/02/2022 Primo Barber MD, DIANN Assembly Line Machine Operator of Clinical Medicine [facility] 03-24-2024 Nurse Note 03/24/24 1115 Medication Prior Auth Medication Requiring Prior Auth SUCRALFATE Dosage Form Tablet Intervention spoke with team Outcome Prior Auth Started Medication PA Process Complete? In Progress Brad Silva RN, BSN, ACM Clinical Time Broker [facility] 03-24-2024 Plan of care note Problem: Adult Inpatient Plan of Care Goal: Plan of Care Review Outcome: Progressing Goal: Patient-Specific Goal (Individualized) Outcome: Progressing Goal: Absence of Hospital-Acquired Illness or Injury Outcome: Progressing Goal: Optimal Comfort and Wellbeing Outcome: Progressing Goal: Readiness for Transition of Care Outcome: Progressing Problem: VTE (Venous Thromboembolism) Goal: Tissue Perfusion Outcome: Progressing Goal: Right Ventricular Function Outcome: Progressing Problem: Pain Acute Goal: Optimal Pain Control and Function Outcome: Progressing Problem: Bariatric Surgery Goal: Optimal Coping with Surgery Outcome: Progressing Goal: Absence of Bleeding Outcome: Progressing Goal: Fluid and Electrolyte Balance Outcome: Progressing Goal: Effective Gastrointestinal Motility and Elimination Outcome: Progressing Goal: Blood Glucose Level Within Desired Range Outcome: Progressing Goal: Absence of Infection Signs and Symptoms Outcome: Progressing Goal: Anesthesia/Sedation Recovery Outcome: Progressing Goal: Optimal Pain Control and Function Outcome: Progressing Goal: Nausea and Vomiting Relief Outcome: Progressing Goal: Effective Urinary Elimination Outcome: Progressing Goal: Effective Oxygenation and Ventilation Outcome: Progressing Pt's V/S are stable, Afebrile, AOX4. Pt's states pain is 0/10 Pt has been educated with meals and fluid encouragement Pt is receiving SCD's/Medication intervention for DVT prophylaxis Call light is within reach. Will continue to monitor Coughing and I/S therapy/use was also encouraged. [facility] 03-23-2024 Plan of care note Problem: Adult Inpatient Plan of Care Goal: Plan of Care Review Outcome: Progressing Goal: Optimal Comfort and Wellbeing Outcome: Progressing Problem: Bariatric Surgery Goal: Optimal Coping with Surgery Outcome: Progressing Goal: Effective Gastrointestinal Motility and Elimination Outcome: Progressing Goal: Optimal Pain Control and Function Outcome: Progressing [facility] 03-23-2024 Plan of care note Problem: Adult Inpatient Plan of Care Goal: Plan of Care Review Outcome: Progressing Goal: Patient-Specific Goal (Individualized) Outcome: Progressing Goal: Absence of Hospital-Acquired Illness or Injury Outcome: Progressing Goal: Optimal Comfort and Wellbeing Outcome: Progressing Goal: Readiness for Transition of Care Outcome: Progressing Problem: VTE (Venous Thromboembolism) Goal: Tissue Perfusion Outcome: Progressing Goal: Right Ventricular Function Outcome: Progressing Problem: Pain Acute Goal: Optimal Pain Control and Function Outcome: Progressing Pt's V/S are stable, Afebrile, AOX4. Pt's states pain is 0/10 Pt has been educated with meals and fluid encouragement Pt is receiving SCD's/Medication intervention for DVT prophylaxis Coughing and I/S therapy/use was also encouraged. Call light is within reach. Will continue to monitor [facility] 03-23-2024 Nurse Note Patient met PACU discharge criteria. Phone report given to TABATHA Townsend. Patient transported on telemetry and cont. Pulse ox with Rn. Patient family updated. [facility] 03-23-2024 Surgery Postoperative evaluation and management note Lino Fontenot ([id number]) PRE OPERATIVE DIAGNOSIS Gastroesophageal reflux disease without esophagitis [K21.9] Morbid obesity [E66.01] POST OPERATIVE DIAGNOSIS Gastroesophageal reflux disease without esophagitis [K21.9] Morbid obesity [E66.01] PROCEDURE PERFORMED Procedure(s) (LRB): CONVERSION SLEEVE TO MAY-EN-Y GASTRIC BYPASS LAPAROSCOPIC (N/A) EGD DIAGNOSTIC (N/A) PRIMARY CLOSURE Yes INTRAOPERATIVE FINDINGS Lap sleeve to bypass. Negative leak test SURGEON Surgeons and Role: * Griselda Gallegos MD - Primary * Jyotsna Bahena MD - Assisting ANESTHESIOLOGIST Anesthesiologist: Kurt Gonzalez MD; Yulia Hong MD Coat Padder: JADEN Vaughan; JADEN Orosco Student Anesthesiologist Sheep Sticker: Jayshree West SURGICAL STAFF Slot Floorman: Della Ace RN; Prema Rodriguez RN Scrub Person: Mary Angel COMPLICATIONS None ESTIMATED BLOOD LOSS Minimal SPECIMENS No specimen sent * No specimens in log * Jyotsna Bahena MD March 23, 2024 1:47 PM [facility] Work Phone: 03-23-2024 Surgery Postoperative evaluation and management note OPERATIVE/PROCEDURE REPORT Surgeon(s)/Proceduralist(s) and Sheep Sticker(s): Surgeon(s) and Role: * Griselda Gallegos - Primary * - Fellow - Jyotsna Bahena Please note due to the complex nature of this advanced laparoscopic procedure, Dr. Bahena's presence was requested, as there were no capable available residents. Procedure(s): - Laparoscopic conversion of sleeve gastrectomy to May en Y gastric bypass - EGD Anesthesia: Choice - Anesthesia Consult Pre-Op/Pre-Procedure Diagnosis: - Morbid obesity with a Body mass index is 36.18 kg/m . and GERD s/p LSG Post-Op/Post-Procedure Diagnosis: - Morbid obesity with a Body mass index is 36.18 kg/m . and and GERD s/p LSG Operative Indication: The patient is a 58 y.o. male with Body mass index is 36.18 kg/m . and GERD s/p LSG refractory to maximal medical therapy. Operative Findings: - Operation completed laparoscopically. 150 cm antecolic-antegastric May limb, 50 cm biliopancreatic limb, and 15 mL gastric pouch. - Endoscopic leak test performed and negative Operative Procedure: Informed consent was obtained. The patient was taken to the main operating room and a identified by name, MRN, and date of . A sign in huddle was done. The patient was then placed under general anesthesia. The abdomen was prepped and draped in a sterile fashion. A Veress needle was used to establish pneumoperitoneum through a left upper quadrant incision. A 5-mm optical trocar was placed through the same incision and visual access to the peritoneal cavity was obtained. Remaining trocars were placed in the standard positions across the upper abdomen under direct vision. There were omental adhesions to the anterior abdominal wall from his prior umbilical hernia repair and prior bilateral nephrectomies and these were easily taken down using Ligasure. After we were able to retract the omentum above the transverse colong, the ligament of Treitz was easily identified and the small bowel divided 50 cm distal to the ligament of Treitz. A saldana load of the linear stapler was used to divide the bowel and then the mesentery was divided with the Ligasure device. The May limb was marked with a suture. A 150 cm May limb was measured and approximated to the end of the biliopancreatic limb. Adjacent enterotomies were created with ultrasonic rosibel and a saldana load of the stapler was used to create a [id number] anastomosis. The common opening was closed with a transverse firing of the stapler and reinforcement stitches were placed at both ends of the anastomosis. The mesenteric defect was closed with running 2-0 Surgidac suture. The omental split was then completed with the Ligasure device. The liver retractor was placed. The patient was put in steep reverse Trendelenburg position and the pars flaccida was opened. The lesser omentum was then divided with the Ligasure device and the omental adhesions to the lateral edge of the pouch were divided and the upper sleeve was inspected. The sleeve was tubular without retained fundus and no hiatal hernia was present. We then fired a purple load horizontally to create the gastric pouch. The tip of the remnant staple line was also resected with a purple load to avoid ischemia and the small piece of stomach was removed through the 12 mm port. Once this was completed, the May limb was brought up in the antecolic-antegastric position sewn to the posterior gastric pouch with running 2-0 Surgidac suture. Adjacent enterotomy and gastrotomy were created with ultrasonic rosibel and the purple load of the stapler was used to create a 1.5 cm linear stapled anastomosis. The common opening was closed with a running 2-0 Polysorb suture. An imbricating anterior layer was placed using 2-0 Surgidac to complete the 2-layer anastomosis. The bowel clamp was placed on the May limb. The endoscope was used to provide air insufflation and a leak test was performed, which was negative for any air leaks and the endoscopic view was normal. The mesenteric defect was then closed behind the May limb and approximated the May limb mesentery to the mesocolon up to the the level of the gastric remnant. The omentum was then sewn anteriorly over the gastrojejunostomy. The 12-mm trocar sites were closed with #0 Vicryl suture using the Malachi-Eusebia suture passer and the final inspection for hemostasis was good. Sponge and needle counts were correct. The trocars were removed under direct vision and the abdomen desufflated. Fascial sutures were tied down. Skin incisions were closed with 4-0 Monocryl. Dressings were applied. The patient tolerated the procedure well, was awakened, extubated in the operating room, and taken to recovery room in stable condition. Estimated Blood Loss: minimal Specimens: - None Implantable Devices: None Drains: - None Complications: None Dr. Gallegos was scrubbed the entire case. Griselda Gallegos MD [facility] 03-23-2024 Nurse Note Patient arrived to PACU 8 from OR . Patient stable and attached to monitors. Bedside report from Dahlia Bahena MD and JADEN Krishnan. Patient turned side to side to remove extra linens. Patient denies nausea, states has moderate pain. VSS. [facility] 03-23-2024 Hospital Discharge instructions Jamel Uriarte MD - 03/23/2024 9:10 AM EDT Reminder about all medications: You may take tablets and capsules whole that are smaller than a dime. All tablets and capsules that are larger than a dime should be split or opened until you are on the Step 3 diet. BARIATRIC SURGERY MEDICATIONS FOR PAIN CONTROL Tylenol (Acetaminophen): you may take [id number] Tylenol as needed every 6 hours. Do not take more than 4,000mg in 24 hours because it can harm your liver. TO PREVENT NAUSEA Many patients experience nausea after bariatric surgery. It is important to control your nausea so you can keep drinking and to prevent dehydration. Take your medications for nausea as prescribed whether or not you have nausea. TO PREVENT CONSTIPATION Milk of Magnesia and Miralax: Take Miralax twice per day if you have constipation. If you have regular bowel movements, you can take Miralax daily to keep your bowels moving. Stop taking Miralax if you develop diarrhea. If you are constipated despite taking Miralax twice daily, you may take Milk of Magnesia as directed on the bottle to assist with constipation. It is also okay to use a suppository to assist with constipation after surgery. Please contact the Bariatric Surgery Clinic if you have not had a bowel movement 5 days from the day of surgery. TO DECREASE STOMACH ACID AND PREVENT ULCERS Take scheduled anti-acid medication as directed for the first three months (90 days) after surgery to prevent ulcers. Avoid things that can irritate the stomach lining such as Aspirin, Ibuprofen, Aleve, Advil, Motrin, Excedrin, Alcohol, Caffeine or Cigarette smoke (including second-hand smoke). VITAMINS [place] Complete Chewable vitamin: take it twice per day rather than once per day. OR Bariatric chewable vitamin: follow the instructions on the bottle. Long-term vitamins will be ordered once you are on Step 3 diet. ACTIVITY You should walk on a regular basis to reduce the risk of blood clots or pneumonia, and improve healing. Gradually increase your activity over the course of the next week until you are walking at least 20-30 minutes per day. It is ok and encouraged to take the stairs. Driving restrictions: You may not return to driving at this time. Your surgeon will tell you if it is ok to drive at your follow-up appointment. Lifting restrictions: Do not lift, push or pull anything that weighs more than 10 pounds (A gallon of milk weighs 8 pounds). Work restrictions: You may not return to work at this time. Your surgeon will discuss recommendations at your follow-up appointment. DIET See the information in your After Bariatric Surgery booklet for instructions about week one and week two at home. You should remain on the Bariatric Step 2 diet until follow up. DRESSING AND WOUND CARE See the information in your After Bariatric Surgery booklet for instructions. HOME MONITORING INSTRUCTIONS For patients with High blood pressure/hypertension: Please check your blood pressure at home at least three times per week and report values to your primary care provider as we expect that your blood pressure will fluctuate while you are losing weight rapidly and your medications may need to be adjusted. If your blood pressure is consistently higher than 140/90 or the top number is less than 110 consistently, please notify your primary provider. WHEN TO NOTIFY YOUR HEALTH CARE TEAM Sign of Wound Infection Fever over 101 degrees. Wound becomes extremely swollen, shows red streaks, warm to the touch, and/or drainage from the incision site or foul-smelling drainage. Wound edges separate or opens up Bleeding or bruising If you have bleeding, apply pressure to the site and hold the pressure firmly for 5 minutes. If the bleeding continues, apply pressure again and call 911. If the bleeding stopped, call your healthcare team to report it. Call your healthcare team if you have increased bleeding from your site and increased bruising or a lump forms or gets larger under your skin at the site. Unrelieved Pain Call your healthcare team if your pain gets worse or is not eased 1 hour after taking your pain medicine, or if it is severe and uncontrolled. Nausea and Vomiting Call your healthcare team as early as possible if you have nausea and vomiting that is keeping you from taking your medicine or keeping you from drinking fluids and taking in protein Fever, Flu-like symptoms Fever over 101 degrees and/or chills Gastrointestinal Bleeding Symptoms Black tarry bowel movements. This can be normal after surgery on the stomach, but should resolve in a day or two. Call 911 if you suddenly have signs of blood loss such as: Vomiting blood Fast heart rate Feeling faint, sweaty, or blacking out Passing bright red blood from your rectum Blood Clot Symptoms Tender, swollen or reddened areas in your calf muscle or thighs. Numbness or tingling in your lower leg or calf, or at the top of your leg or groin Skin on your leg looks pale or blue or feels cold to touch Chest pain or have trouble breathing, lightheadedness, fast heart rate Sudden Onset of Symptoms Call 911 if you suddenly have: Leg weakness and spasm Loss of bladder or bowel function Seizure Confusion, severe headache, dizziness or feeling unsteady, problems talking, difficulty swallowing, and/or numbness or muscle weakness as these can be signs of a stroke CONTACT INFORMATION During usual business hours 8am-4pm, you may call the Bariatric Surgery Clinic Call Center at [phone]. It is important that you try to contact the Bariatric Surgery Clinic Call Center during morning hours if you feel that you may need to be seen the same day before closing time. After 4pm weekdays and on weekends an urgent need that is not an emergency may be handled by the General Surgery Resident Control Specialist: Call the hospital four slide operator at [phone] to ask for the on-call General Surgery Resident to be paged. You may choose to send a [employer] message to your provider for non-urgent questions that can be addressed on the next business day. If you are unable to reach your doctor and it is a medical emergency, dial 911 or report to the nearest Emergency Department for evaluation. LINK: AFTER BARIATRIC SURGERY BOOKLET: (YOU CAN COPY AND PASTE THIS LINK INTO YOUR WEB BROWSER FROM THE AFTER VISIT SUMMARY IN [place] IF YOU WANT AN ELECTRONIC COPY OF THE BOOKLET YOU WERE GIVEN IN THE HOSPITAL): [email or web address] [facility] Comprehensive Weight Management & Bariatric Surgery The following attachments cannot be sent through Care Everywhere.Home Care for Bray Catheter: Male ([facility]) (Russian)Caring for Your Urinary Catheter: Video (Russian)documented in this encounter [facility] 03-23-2024 History and physical note Perioperative Surgical History and Physical Pre-op diagnoses: Gastroesophageal reflux disease without esophagitis [K21.9] Morbid obesity [E66.01] Procedure(s): CONVERSION SLEEVE TO MAY-EN-Y GASTRIC BYPASS LAPAROSCOPIC EGD DIAGNOSTIC Surgeon(s): Surgeons and Role: * Griselda Gallegos MD - Primary S: Patient feeling well. Denies any recent hospitalizations or emergency room visits. Denies chest pain, shortness of breath, abdominal pain, nausea, vomiting, diarrhea, constipation. Has been holding chlorthalidone and losartan since January due to increased creatinine. Denies use of anticoagulation. Confirms use of aspirin, no other antiplatelet medications. Last meal: 03/22/24 1800 O: There were no vitals filed for this visit. Physical Exam: Gen: resting comfortably, in no acute distress CV: RRR on monitor Pulm: breathing easy and regular Abd: soft, nontender, nondistended Ext: warm A/P: Reviewed patient's history and physical exam is reassuring. Will proceed with Procedure(s): CONVERSION SLEEVE TO MAY-EN-Y GASTRIC BYPASS LAPAROSCOPIC EGD DIAGNOSTIC. - ALOC, consent done - Pending BMP for creatinine level Jamel Uriarte MD PGY-1 Anesthesiology Bariatric ([facility]) Surgery Service Pager: [phone] [facility] 03-23-2024 History and physical note Perioperative Surgical History and Physical Pre-op diagnoses: Gastroesophageal reflux disease without esophagitis [K21.9] Morbid obesity [E66.01] Procedure(s): CONVERSION SLEEVE TO MAY-EN-Y GASTRIC BYPASS LAPAROSCOPIC EGD DIAGNOSTIC Surgeon(s): Surgeons and Role: * Griselda Gallegos MD - Primary S: Patient feeling well. Denies any recent hospitalizations or emergency room visits. Denies chest pain, shortness of breath, abdominal pain, nausea, vomiting, diarrhea, constipation. Has been holding chlorthalidone and losartan since January due to increased creatinine. Denies use of anticoagulation. Confirms use of aspirin, no other antiplatelet medications. Last meal: 03/22/24 1800 O: There were no vitals filed for this visit. Physical Exam: Gen: resting comfortably, in no acute distress CV: RRR on monitor Pulm: breathing easy and regular Abd: soft, nontender, nondistended Ext: warm A/P: Reviewed patient's history and physical exam is reassuring. Will proceed with Procedure(s): CONVERSION SLEEVE TO MAY-EN-Y GASTRIC BYPASS LAPAROSCOPIC EGD DIAGNOSTIC. - ALOC, consent done - Pending BMP for creatinine level Jamel Uriarte MD PGY-1 Anesthesiology Bariatric ([facility]) Surgery Service Pager: [phone] documented in this encounter [facility] 02-25-2024 History and physical note Images from the original note were not included. PREOPERATIVE ASSESSMENT [facility] Name: Lino Fontenot Date of Surgery: 03/23/2024 . Surgeon: Rosy Pre-Op Diagnosis: GERD without esophagitis. Planned Procedure: lap conversion of sleeve to gastric bypass, egd Anesthesia Type: planned for general anesthesia SUMMARY AND RECOMMENDATIONS Pending lab results from Outside Facility. Strict NPO Diet recommended. Lino Fontenot is a 58 y.o. year old patient with a history the following diagnoses which increase his risk for perioperative complications. he being referred for pre operative evaluation and optimization. The relative status of the medical conditions are further explained in this note. 1. Preop exam for internal medicine 2. Gastroesophageal reflux disease without esophagitis 3. History of surgery 4. Essential hypertension 5. PFO (patent foramen ovale) 6. DEMI (obstructive sleep apnea) 7. Allergic rhinitis, unspecified seasonality, unspecified trigger 8. Former smoker 9. History of hyperparathyroidism 10. -donor kidney transplant 11. History of radical nephrectomy 12. Depression, unspecified depression type 13. Anxiety disorder, unspecified type 14. Bilateral lower extremity edema 15. H/O gastric sleeve ANESTHESIA and AIRWAY Anesthesia alerts: ESR PROTOCOL. DEMI. Hx of bilateral Nephrectomy, Right Kidney Transplant. PFO found on Echo. Uncontrolled GERD. Personal history of problems related to anesthesia (ex.Malignant Hyperthermia): no Family History of problems related to anesthesia (ex.Malignant Hyperthermia: no Pacer/AICD: no Parenteral Access: no Glaucoma: no DEMI: yes Mallampati class - 1 TM Distance - 2 FB Oral Opening - 3 FB Teeth - normal dentition for age. Cervical range of motion - within normal limits. Denies Radiculopathy. Neck circumference - Body mass index is 37.26 kg/m . Allergies and adverse drug reactions Allergies Allergen Reactions Nsaids Cannot take due to renal transplant and gastric sleeve *Seasonal Runny Nose ANESTHESIA/AIRWAY ASSESSMENT AND PLAN- # Anesthesia Alerts as above if applicable # Previous Airway Details below (if available) 01/23/2022 AIRWAY, NEPHRECTOMY: CARDIOVASCULAR Do you take Aspirin or other antiplatelet agents? yes - after patient had transplant, was told take it daily. Do you take anti-coagulations? no Beta Matthew: no Patient denies a history of cardiac events or IL. Denies chest pain, palpitation or worsening SOB over the last few months ASSESSMENT AND PLAN- # Functional status - METS: Moderate: 4-7 METS functional status. 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 # Pre-operative Risk Evaluation: Patient Meets the Following RCRI Criteria (RCRI): None: 0 criteria suggesting a 3.9% risk of major cardiac events or within 30 days. Lino Fontenot is at a Acceptable risk based on the RCRI above. Patient can achieve METS > 4. Per ACC/AHA guidelines, the patient requires further testing at this time. The patient is at elevated risk for the following perioperative complications not captured by the RCRI: N/A # Essential HTN: -stable/chronic -Controlled on losartan -Hold losartan 24 hours prior to surgery. BP Readings from Last 3 Encounters: 02/25/24 112/76 02/20/24 148/72 01/15/24 118/60 CARDIAC TESTING and REVIEW OF PREVIOUS CARDIAC TESTING/IMAGING EKG (02/25/2024): Sinus Bradycardia with a HR of 58. No LVH. No ST changes noted as interpreted by me 05/04/2016 ECHO, personally reviewed: -Suspected PFO -EF is 55-60% 05/18/2016 PHARM STRESS TEST, personally reviewed: PULMONARY ASSESSMENT AND PLAN: # DEMI: -Getting CPAP this week. -Perioperative DEMI precautions and encourage NIPPV use while naps post operatively. -Cautious narcotic use. -Patient was instructed to bring their device with them. # Allergic Rhinitis: -Chronic/Stable -Takes Montelukast PULMONARY TESTING AND REVIEW OF RECORDS if any SOCIAL/SUBSTANCE USE HISTORY Social History Tobacco Use Smoking Status Former Current packs/day: 0.00 Average packs/day: 1 pack/day for 20.0 years (20.0 ttl pk-yrs) Types: Cigarettes Start date: 07/01/1982 Quit date: 12/30/1999 Years since quittin.1 Passive exposure: Past Smokeless Tobacco Never Social History Substance and Sexual Activity Alcohol Use Not Currently Comment: none Social History Substance and Sexual Activity Drug Use Never Does the patient Vape? no ASSESSMENT AND PLAN: # Former smoker: -Quit 1999. -2 PPD. Since patient was 18 y/o. HEMATOLOGY History of DVT/PE - no In case of surgeons plan or unforseen emergency, are you okay with receiving blood products? - yes Have you ever been diagnosed with any bleeding disorders in the past (Hemophilia A or B, Von Willebrand Disease)? - No Patient has not received blood transfusions in the last 30 days. ASSESSMENT AND PLAN # None Reported. Recommend standard VTE prophylaxis inpatient DIABETES and ENDOCRINOLOGY ASSESSMENT AND PLAN # None Reported. Lab Results Component Value Date HGBA1C 5.6 11/20/2023 # Hx of Hyperparathyroidism: -Secondary to ESRD. ADDITIONAL DIAGNOSES OF CONCERN # GERD without esophagitis: -Planned procedure with Dr. Gallegos for Gastric Sleeve to Roun y. -Talking pantoprazole. -Pt typically sleeps sitting up. Admits to nocturnal s/s. # Kidney Transplant Receipient: -S/p Bilateral Nephrectomy. -s/p right kidney transplant. # Depression: -Chronic. -Subjectively stable on home meds # NADEEM: -Chronic -Subjectively stable on home meds # Bilateral LE: -S/p dialysis -Taking Chlorthalidone. -Pt denies fluid overload today. # Hx of Gastric Sleeve: -S/p 2020. ADVANCED CARE PLANNING (for elderly and frail patients) # Code Status: Prior MEDICATIONS Current Outpatient Medications Medication Sig Alclometasone [...] by mouth daily. (Patient taking differently: Take 1 tablet by mouth daily every morning.) Chlorthalidone (THALITONE PO) Take 25 mg by mouth daily every morning. cyanocobalamin 500 MCG tablet Take 2 tablets [...] by mouth daily. (Patient taking differently: Take 1 tablet by mouth daily every morning.) magnesium oxide 400 (241.3 Mg) MG tablet Take 1 tablet by mouth 2 times daily. Montelukast 10 MG tablet Take 1 tablet by mouth daily. (Patient taking differently: Take 1 tablet by mouth daily every morning.) Multiple Vitamins-Minerals [...] mouth every 12 hours. Take 3 tablets bid.) OLANZapine 2.5 MG tablet Take 1 tablet by mouth at bedtime. Pantoprazole (Protonix) [address] tablet DR Take 1 tablet by mouth 2 times daily. rOPINIRole 0.5 MG tablet Take 1 tablet by mouth at bedtime. sildenafil citrate 100 MG tablet Take 0.5-1 tablets by mouth as needed for Erectile Dysfunction. Sodium Zirconium Cyclosilicate (Lokelma) 5 g Pack powder Take 1 packet by mouth Every morning. 2hrs after all meds Tacrolimus (PROGRAF) 1 MG capsule Take 6 capsules by mouth 2 times daily. Terbinafine 1 % Cream cream Place 1 Application on skin As directed as needed. Apply to affected area (feet) twice daily Medication A/P - Instructions for preoperative medications given to the patient in AVS. LABS Orders Placed This Encounter CBC, EDIF, PLATELET COMPREHENSIVE METABOLIC PANEL CBC AND ELECTRONIC DIFF CHEM 6 (LYTES, BUN CREA) Type and Cross -Preadmission URINALYSIS REFLEX TO CULTURE [place] ECG, CLINIC PERFORMED Lab A/P - Lab Results Component Value Date SODIUM 135 02/25/2024 POTASSIUM 5.0 02/25/2024 CHLORIDE 102 02/25/2024 CO2 26 02/25/2024 BUN 45 (H) 02/25/2024 CREATSERUM 2.65 (H) 02/25/2024 GLUCOSE 95 02/25/2024 This MUD TEMPERER called patient and notified him of abnormal lab results. Instructed patient to hold Chlorthalidone and Losartan for 2 days, increase water intake and that I will place orders for a repeat lab draw on 02/27/2024 at [facility] near patient's home. I asked patient to reach out to his Email Campaign Manager, Dr. Davey at the ID in to regarding lab results. Abnormal results were sent to patient's Nephrologists office, including my recommendations to patient. Lab Results Component Value Date WBC 10.54 (H) 02/25/2024 HGB 11.2 (L) 02/25/2024 HCT 34.6 (L) 02/25/2024 PLATELET 218 02/25/2024 MCV 90.6 02/25/2024 Lab Results Component Value Date INR 1.0 02/27/2019 INR 0.94 02/27/2019 INR 1.0 02/18/2017 PT 13.2 02/27/2019 PT 10.2 02/27/2019 PT 13.2 02/18/2017 Patient had labs recollected on 02/27/2024. Urinalysis order as well d/t elevated WBC. Pending results UA: PENDING OUTSIDE FACILITY. All labs and imaging personally reviewed. Thank you for allowing us to participate in the care of Lino Fontenot. Note to patient: The 21st Century Cures Act makes medical notes like these available to patients in the interest of transparency. However, be advised this is a medical document. It is intended as [id number] communication. It is written in medical language and may contain abbreviations or verbiage that are unfamiliar. It may appear blunt or direct. Medical documents are intended to carry relevant information, facts as evident, and the clinical opinion of the practitioner. Voter [employer] dictation software may have been used to write this note. Please excuse any errors that may have occurred as a result of the dictation. Kelsey Lozano, TRIM [employer]KE [employer]TER [facility] [place] [id number] [facility] Review of Systems (OSUROS) Review of Systems Constitutional: Negative for activity change, appetite change, chills, fatigue, fever and unexpected weight change. HENT: Negative for dental problem, rhinorrhea, sore throat and trouble swallowing. Respiratory: Negative for cough, chest tightness, shortness of breath, wheezing and stridor. Cardiovascular: Negative for chest pain, palpitations and leg swelling. Gastrointestinal: Negative for abdominal pain, blood in stool, constipation, diarrhea, nausea and vomiting. Genitourinary: Negative for difficulty urinating, dysuria, frequency, hematuria and urgency. Skin: Negative for rash and wound. Neurological: Negative for dizziness, light-headedness and headaches. Hematological: Does not bruise/bleed easily. All other pertinent positives are also in the note above. Physical Examination (PHYSEXAM) Blood pressure 112/76, pulse 57, temperature 98.2 F (36.8 C), temperature source Infrared, resp. rate 16, height 1.702 m (5' 7 ), weight 107.9 kg (237 lb 14.4 oz), SpO2 97%. Physical Exam Vitals reviewed. Constitutional: General: He is not in acute distress. Appearance: He is obese. HENT: Mouth/Throat: Mouth: Mucous membranes are moist. Pharynx: Oropharynx is clear. No posterior oropharyngeal erythema. Eyes: Extraocular Movements: Extraocular movements intact. Conjunctiva/sclera: Conjunctivae normal. Pupils: Pupils are equal, round, and reactive to light. Neck: Vascular: No carotid bruit. Cardiovascular: Rate and Rhythm: Normal rate and regular rhythm. Pulses: Normal pulses. Heart sounds: Normal heart sounds. No murmur heard. Pulmonary: Effort: Pulmonary effort is normal. No respiratory distress. Breath sounds: Normal breath sounds. No stridor. No wheezing, rhonchi or rales. Chest: Chest wall: No tenderness. Abdominal: General: Bowel sounds are normal. There is no distension. Palpations: Abdomen is soft. Tenderness: There is no abdominal tenderness. Musculoskeletal: Cervical back: Normal range of motion and neck supple. No tenderness. Right lower leg: No edema. Left lower leg: No edema. Lymphadenopathy: Cervical: No cervical adenopathy. Skin: General: Skin is warm and dry. Findings: No erythema or rash. Neurological: General: No focal deficit present. Mental Status: He is alert and oriented to person, place, and time. Cranial Nerves: No cranial nerve deficit. Psychiatric: Mood and Affect: Mood normal. Behavior: Behavior normal. Thought Content: Thought content normal. Judgment: Judgment normal. Past Medical History: Diagnosis Date Anxiety disorder [...] Bilateral; Surgeon: Charley Mccracken MD, PhD; Location: [facility] [place] MAIN OR NEPHRECTOMY 2021 APPENDECTOMY LAPAROSCOPIC N/A 12/26/2019 Laterality: N/A; Surgeon: Rosy Lynn DO; Location: [facility] MAIN OR GASTRECTOMY LONGITUDINAL (SLEEVE) LAPAROSCOPIC N/A 08/10/2019 Laterality: N/A; Surgeon: Griselda Gallegos MD; Location: [facility] SAME DAY SURGERY MAIN OR EGD DIAGNOSTIC N/A 08/10/2019 Laterality: N/A; Surgeon: Griselda Gallegos MD; Location: [facility] SAME DAY SURGERY MAIN OR EGD DIAGNOSTIC N/A 04/24/2019 Laterality: N/A; Surgeon: Nahomy Santos MD; Location: [facility] ENDOSCOPY LAPAROTOMY EXPLORATORY N/A 02/27/2019 Laterality: N/A; Surgeon: Raul Lott MD; Location: [facility] MAIN OR HERNIA REPAIR 02/27/2019 REPAIR HERNIA UMBILICAL OPEN W/ MESH N/A 05/09/2017 Laterality: N/A; Surgeon: CORNEL Elizondo; Location: [facility] MAIN OR KIDNEY TRANSPLANT W/O TUNUNAK NEPHRECTOMY N/A 09/25/2016 Laterality: N/A; Surgeon: Jose Shaw MD; Location: [facility] MAIN OR [place]Y ARTHROSCOPY KNEE MENISCAL TRNSPLJ MED/LAT Right 11/12/2014 [...] FISTULA LACTIFEROUS DUCT TONSILLECTOMY Patient Care Team: Cayla Velazquez CNP as PCP - General (Certified Nurse Practitioner) Coordinator Transplant (Inactive) as PCP - Blending Operator Roberto Carlos Davey MD as Consulting Physician (Nephrology) Family History Problem Relation Age of Onset Kidney Disease Mother PKD; transplant Hypertension Mother Diabetes Father Diabetes Sister Alzheimer's Maternal Grandmother Other - Specify Maternal Grandfather esrd Anesth Problems Neg Hx Colorectal Cancer Neg Hx GI Disease Neg Hx Social History Socioeconomic History Marital status: Spouse name: Derick Number of children: 3 Years of education: 12 Tobacco Use Smoking status: Former Current packs/day: 0.00 Average packs/day: 1 pack/day for 20.0 years (20.0 ttl pk-yrs) Types: Cigarettes Start date: 07/01/1982 Quit date: 12/30/1999 Years since quittin.1 Passive exposure: Past Smokeless tobacco: Never Vaping Use Vaping status: Never Used Substance and Sexual Activity Alcohol use: Not Currently Comment: none Drug use: Never Sexual activity: Yes Partners: Female control/protection: Hysterectomy Comment: Other Topics Concern Occupational Exposure No Hobby Hazards No Domestic Violence No Anesthesia/Medical Assessment/plan: Reviewed patient's history, assessment & ECG findings with Anesthesiologist Dr. Dykes. [facility] 02-25-2024 History and physical note Images from the original note were not included. PREOPERATIVE ASSESSMENT H&P [facility] [place] Name: Lino Fontenot Date of Surgery: 03/23/2024 . Surgeon: Rosy Pre-Op Diagnosis: GERD without esophagitis. Planned Procedure: lap conversion of sleeve to gastric bypass, egd Anesthesia Type: planned for general anesthesia SUMMARY AND RECOMMENDATIONS Pending lab results from Outside Facility. Strict NPO Diet recommended. Lino Fontenot is a 58 y.o. year old patient with a history the following diagnoses which increase his risk for perioperative complications. he being referred for pre operative evaluation and optimization. The relative status of the medical conditions are further explained in this note. 1. Preop exam for internal medicine 2. Gastroesophageal reflux disease without esophagitis 3. History of surgery 4. Essential hypertension 5. PFO (patent foramen ovale) 6. DEMI (obstructive sleep apnea) 7. Allergic rhinitis, unspecified seasonality, unspecified trigger 8. Former smoker 9. History of hyperparathyroidism 10. -donor kidney transplant 11. History of radical nephrectomy 12. Depression, unspecified depression type 13. Anxiety disorder, unspecified type 14. Bilateral lower extremity edema 15. H/O gastric sleeve ANESTHESIA and AIRWAY Anesthesia alerts: ESR PROTOCOL. DEMI. Hx of bilateral Nephrectomy, Right Kidney Transplant. PFO found on Echo. Uncontrolled GERD. Personal history of problems related to anesthesia (ex.Malignant Hyperthermia): no Family History of problems related to anesthesia (ex.Malignant Hyperthermia: no Pacer/AICD: no Parenteral Access: no Glaucoma: no DEMI: yes Mallampati class - 1 TM Distance - 2 FB Oral Opening - 3 FB Teeth - normal dentition for age. Cervical range of motion - within normal limits. Denies Radiculopathy. Neck circumference - Body mass index is 37.26 kg/m . Allergies and adverse drug reactions Allergies Allergen Reactions Nsaids Cannot take due to renal transplant and gastric sleeve *Seasonal Runny Nose ANESTHESIA/AIRWAY ASSESSMENT AND PLAN- # Anesthesia Alerts as above if applicable # Previous Airway Details below (if available) 01/23/2022 AIRWAY, NEPHRECTOMY: CARDIOVASCULAR Do you take Aspirin or other antiplatelet agents? yes - after patient had transplant, was told take it daily. Do you take anti-coagulations? no Beta Matthew: no Patient denies a history of cardiac events or IL. Denies chest pain, palpitation or worsening SOB over the last few months ASSESSMENT AND PLAN- # Functional status - METS: Moderate: 4-7 METS functional status. 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 # Pre-operative Risk Evaluation: Patient Meets the Following RCRI Criteria (RCRI): None: 0 criteria suggesting a 3.9% risk of major cardiac events or within 30 days. Lino Fontenot is at a Acceptable risk based on the RCRI above. Patient can achieve METS > 4. Per ACC/AHA guidelines, the patient requires further testing at this time. The patient is at elevated risk for the following perioperative complications not captured by the RCRI: N/A # Essential HTN: -stable/chronic -Controlled on losartan -Hold losartan 24 hours prior to surgery. BP Readings from Last 3 Encounters: 02/25/24 112/76 02/20/24 148/72 01/15/24 118/60 CARDIAC TESTING and REVIEW OF PREVIOUS CARDIAC TESTING/IMAGING EKG (02/25/2024): Sinus Bradycardia with a HR of 58. No LVH. No ST changes noted as interpreted by me 05/04/2016 ECHO, personally reviewed: -Suspected PFO -EF is 55-60% 05/18/2016 PHARM STRESS TEST, personally reviewed: PULMONARY ASSESSMENT AND PLAN: # DEMI: -Getting CPAP this week. -Perioperative DEMI precautions and encourage NIPPV use while naps post operatively. -Cautious narcotic use. -Patient was instructed to bring their device with them. # Allergic Rhinitis: -Chronic/Stable -Takes Montelukast PULMONARY TESTING AND REVIEW OF RECORDS if any SOCIAL/SUBSTANCE USE HISTORY Social History Tobacco Use Smoking Status Former Current packs/day: 0.00 Average packs/day: 1 pack/day for 20.0 years (20.0 ttl pk-yrs) Types: Cigarettes Start date: 07/01/1982 Quit date: 12/30/1999 Years since quittin.1 Passive exposure: Past Smokeless Tobacco Never Social History Substance and Sexual Activity Alcohol Use Not Currently Comment: none Social History Substance and Sexual Activity Drug Use Never Does the patient Vape? no ASSESSMENT AND PLAN: # Former smoker: -Quit 1999. -2 PPD. Since patient was 18 y/o. HEMATOLOGY History of DVT/PE - no In case of surgeons plan or unforseen emergency, are you okay with receiving blood products? - yes Have you ever been diagnosed with any bleeding disorders in the past (Hemophilia A or B, Von Willebrand Disease)? - No Patient has not received blood transfusions in the last 30 days. ASSESSMENT AND PLAN # None Reported. Recommend standard VTE prophylaxis inpatient DIABETES and ENDOCRINOLOGY ASSESSMENT AND PLAN # None Reported. Lab Results Component Value Date HGBA1C 5.6 11/20/2023 # Hx of Hyperparathyroidism: -Secondary to ESRD. ADDITIONAL DIAGNOSES OF CONCERN # GERD without esophagitis: -Planned procedure with Dr. Gallegos for Gastric Sleeve to Roun y. -Talking pantoprazole. -Pt typically sleeps sitting up. Admits to nocturnal s/s. # Kidney Transplant Receipient: -S/p Bilateral Nephrectomy. -s/p right kidney transplant. # Depression: -Chronic. -Subjectively stable on home meds # NADEEM: -Chronic -Subjectively stable on home meds # Bilateral LE: -S/p dialysis -Taking Chlorthalidone. -Pt denies fluid overload today. # Hx of Gastric Sleeve: -S/p 2019. ADVANCED CARE PLANNING (for elderly and frail patients) # Code Status: Prior MEDICATIONS Current Outpatient Medications Medication Sig Alclometasone [...] by mouth daily. (Patient taking differently: Take 1 tablet by mouth daily every morning.) Chlorthalidone (THALITONE PO) Take 25 mg by mouth daily every morning. cyanocobalamin 500 MCG tablet Take 2 tablets [...] by mouth daily. (Patient taking differently: Take 1 tablet by mouth daily every morning.) magnesium oxide 400 (241.3 Mg) MG tablet Take 1 tablet by mouth 2 times daily. Montelukast 10 MG tablet Take 1 tablet by mouth daily. (Patient taking differently: Take 1 tablet by mouth daily every morning.) Multiple Vitamins-Minerals [...] mouth every 12 hours. Take 3 tablets bid.) OLANZapine 2.5 MG tablet Take 1 tablet by mouth at bedtime. Pantoprazole (Protonix) [address] tablet DR Take 1 tablet by mouth 2 times daily. rOPINIRole 0.5 MG tablet Take 1 tablet by mouth at bedtime. sildenafil citrate 100 MG tablet Take 0.5-1 tablets by mouth as needed for Erectile Dysfunction. Sodium Zirconium Cyclosilicate (Lokelma) 5 g Pack powder Take 1 packet by mouth Every morning. 2hrs after all meds Tacrolimus (PROGRAF) 1 MG capsule Take 6 capsules by mouth 2 times daily. Terbinafine 1 % Cream cream Place 1 Application on skin As directed as needed. Apply to affected area (feet) twice daily Medication A/P - Instructions for preoperative medications given to the patient in AVS. LABS Orders Placed This Encounter CBC, EDIF, PLATELET COMPREHENSIVE METABOLIC PANEL CBC AND ELECTRONIC DIFF CHEM 6 (LYTES, BUN CREA) Type and Cross -Preadmission URINALYSIS REFLEX TO CULTURE [place] ECG, CLINIC PERFORMED Lab A/P - Lab Results Component Value Date SODIUM 135 02/25/2024 POTASSIUM 5.0 02/25/2024 CHLORIDE 102 02/25/2024 CO2 26 02/25/2024 BUN 45 (H) 02/25/2024 CREATSERUM 2.65 (H) 02/25/2024 GLUCOSE 95 02/25/2024 This MUD TEMPERER called patient and notified him of abnormal lab results. Instructed patient to hold Chlorthalidone and Losartan for 2 days, increase water intake and that I will place orders for a repeat lab draw on 02/27/2024 at [facility] near patient's home. I asked patient to reach out to his Email Campaign Manager, Dr. Davey at the ID in to regarding lab results. Abnormal results were sent to patient's Nephrologists office, including my recommendations to patient. Lab Results Component Value Date WBC 10.54 (H) 02/25/2024 HGB 11.2 (L) 02/25/2024 HCT 34.6 (L) 02/25/2024 PLATELET 218 02/25/2024 MCV 90.6 02/25/2024 Lab Results Component Value Date INR 1.0 02/27/2019 INR 0.94 02/27/2019 INR 1.0 02/18/2017 PT 13.2 02/27/2019 PT 10.2 02/27/2019 PT 13.2 02/18/2017 Patient had labs recollected on 02/27/2024. Urinalysis order as well d/t elevated WBC. Pending results UA: PENDING OUTSIDE FACILITY. All labs and imaging personally reviewed. Thank you for allowing us to participate in the care of Lino Fontenot. Note to patient: The Century Cures Act makes medical notes like these available to patients in the interest of transparency. However, be advised this is a medical document. It is intended as [id number]-pjgy communication. It is written in medical language and may contain abbreviations or verbiage that are unfamiliar. It may appear blunt or direct. Medical documents are intended to carry relevant information, facts as evident, and the clinical opinion of the practitioner. [employer] dictation software may have been used to write this note. Please excuse any errors that may have occurred as a result of the dictation. Kelsey Lozano, TRIM SAW[employer]SHAKE CUTTER [facility] Review of Systems (OSUROS) Review of Systems Constitutional: Negative for activity change, appetite change, chills, fatigue, fever and unexpected weight change. HENT: Negative for dental problem, rhinorrhea, sore throat and trouble swallowing. Respiratory: Negative for cough, chest tightness, shortness of breath, wheezing and stridor. Cardiovascular: Negative for chest pain, palpitations and leg swelling. Gastrointestinal: Negative for abdominal pain, blood in stool, constipation, diarrhea, nausea and vomiting. Genitourinary: Negative for difficulty urinating, dysuria, frequency, hematuria and urgency. Skin: Negative for rash and wound. Neurological: Negative for dizziness, light-headedness and headaches. Hematological: Does not bruise/bleed easily. All other pertinent positives are also in the note above. Physical Examination [facility] Blood pressure 112/76, pulse 57, temperature 98.2 F (36.8 C), temperature source Infrared, resp. rate 16, height 1.702 m (5' 7 ), weight 107.9 kg (237 lb 14.4 oz), SpO2 97%. Physical Exam Vitals reviewed. Constitutional: General: He is not in acute distress. Appearance: He is obese. HENT: Mouth/Throat: Mouth: Mucous membranes are moist. Pharynx: Oropharynx is clear. No posterior oropharyngeal erythema. Eyes: Extraocular Movements: Extraocular movements intact. Conjunctiva/sclera: Conjunctivae normal. Pupils: Pupils are equal, round, and reactive to light. Neck: Vascular: No carotid bruit. Cardiovascular: Rate and Rhythm: Normal rate and regular rhythm. Pulses: Normal pulses. Heart sounds: Normal heart sounds. No murmur heard. Pulmonary: Effort: Pulmonary effort is normal. No respiratory distress. Breath sounds: Normal breath sounds. No stridor. No wheezing, rhonchi or rales. Chest: Chest wall: No tenderness. Abdominal: General: Bowel sounds are normal. There is no distension. Palpations: Abdomen is soft. Tenderness: There is no abdominal tenderness. Musculoskeletal: Cervical back: Normal range of motion and neck supple. No tenderness. Right lower leg: No edema. Left lower leg: No edema. Lymphadenopathy: Cervical: No cervical adenopathy. Skin: General: Skin is warm and dry. Findings: No erythema or rash. Neurological: General: No focal deficit present. Mental Status: He is alert and oriented to person, place, and time. Cranial Nerves: No cranial nerve deficit. Psychiatric: Mood and Affect: Mood normal. Behavior: Behavior normal. Thought Content: Thought content normal. Judgment: Judgment normal. Past Medical History: Diagnosis Date Anxiety disorder [...] Bilateral; Surgeon: Charley Mccracken MD, PhD; Location: [facility] [place] MAIN OR NEPHRECTOMY 2021 APPENDECTOMY LAPAROSCOPIC N/A 12/26/2019 Laterality: N/A; Surgeon: Rosy Lynn DO; Location: [facility] MAIN OR GASTRECTOMY LONGITUDINAL (SLEEVE) LAPAROSCOPIC N/A 08/10/2019 Laterality: N/A; Surgeon: Griselda Gallegos MD; Location: [facility] SAME DAY SURGERY MAIN OR EGD DIAGNOSTIC N/A 08/10/2019 Laterality: N/A; Surgeon: Griselda Gallegos MD; Location: [facility] SAME DAY SURGERY MAIN OR EGD DIAGNOSTIC N/A 04/24/2019 Laterality: N/A; Surgeon: Nahomy Santos MD; Location: [facility] ENDOSCOPY LAPAROTOMY EXPLORATORY N/A 02/27/2019 Laterality: N/A; Surgeon: Raul Lott MD; Location: [facility] MAIN OR HERNIA REPAIR 02/27/2019 REPAIR HERNIA UMBILICAL OPEN W/ MESH N/A 05/09/2017 Laterality: N/A; Surgeon: CORNEL Elizondo; Location: [facility] MAIN OR KIDNEY TRANSPLANT W/O TUNUNAK NEPHRECTOMY N/A 09/25/2016 Laterality: N/A; Surgeon: Jose Shaw MD; Location: [facility] MAIN OR WY ARTHROSCOPY KNEE MENISCAL TRNSPLJ MED/LAT Right 11/12/2014 [...] FISTULA LACTIFEROUS DUCT TONSILLECTOMY Patient Care Team: Cayla Velazquez CNP as PCP - General (Certified Nurse Practitioner) Coordinator Transplant (Inactive) as PCP - Blending Operator Roberto Carlos Davey MD as Consulting Physician (Nephrology) Family History Problem Relation Age of Onset Kidney Disease Mother PKD; transplant Hypertension Mother Diabetes Father Diabetes Sister Alzheimer's Maternal Grandmother Other - Specify Maternal Grandfather esrd Anesth Problems Neg Hx Colorectal Cancer Neg Hx GI Disease Neg Hx Social History Socioeconomic History Marital status: Spouse name: Derick Number of children: 3 Years of education: 12 Tobacco Use Smoking status: Former Current packs/day: 0.00 Average packs/day: 1 pack/day for 20.0 years (20.0 ttl pk-yrs) Types: Cigarettes Start date: 07/01/1982 Quit date: 12/30/1999 Years since quittin.1 Passive exposure: Past Smokeless tobacco: Never Vaping Use Vaping status: Never Used Substance and Sexual Activity Alcohol use: Not Currently Comment: none Drug use: Never Sexual activity: Yes Partners: Female control/protection: Hysterectomy Comment: Other Topics Concern Occupational Exposure No Hobby Hazards No Domestic Violence No Anesthesia/Medical Assessment/plan: Reviewed patient's history, assessment & ECG findings with Anesthesiologist Dr. Dykes. documented in this encounter [facility] 02-25-2024 Instructions Della Purdy LPN - 02/25/2024 10:30 AM EDT PRIOR TO SURGERY INSTRUCTIONS Please follow these instructions prior to surgery to help us minimize delays and complications to your surgery THE FOLLOWING MEDICATIONS LABS, STUDIES, AND CONSULTATIONS WERE ORDERED TODAY: Orders Placed This Encounter CBC, EDIF, PLATELET COMPREHENSIVE METABOLIC PANEL Type and Cross -Preadmission [place] ECG, CLINIC PERFORMED PREOPERATIVE MEDICATION INSTRUCTIONS Below are instructions for what to do with your medicines before your surgery/procedure. Take the medications marked take the morning of surgery/procedure with a sip of water. Please follow this table below for instructions on which medications to hold prior to surgery If you have a change in daily medications prior to surgery/procedure, call the [facility] Clinic at [phone]. Current Outpatient Medications Medication Sig Instructions: Alclometasone Dipropionate 0.05 % Cream Apply 0.05 mg topically As directed as needed. Apply to affected area 1-2 times daily when skin flared Do not take morning of surgery aspirin 81 MG Chew Tab chewable tablet Chew 1 tablet daily every morning. ..Please obtain future renewals of this prescription from your primary care provider. Take morning of surgery. CALCIUM CITRATE PO Take 600 mg by mouth 2 times daily. Do not take morning of surgery carBAMazepine 100 MG Chew Tab Take 2 tablets daily in the morning and 3 tablets daily in the evening Take morning of surgery. Cetirizine 10 MG tablet Take 1 tablet by mouth daily. (Patient taking differently: Take 1 tablet by mouth daily every morning.) Take morning of surgery. Chlorthalidone (THALITONE PO) Take 25 mg by mouth daily every morning. Do not take morning of surgery cyanocobalamin 500 MCG tablet Take 2 tablets by mouth daily every morning. (Patient taking differently: Take 1 tablet by mouth daily every morning.) Do not take morning of surgery escitalopram 20 MG tablet Take 1 tablet by mouth daily every morning. Take morning of surgery. Ketoconazole 2 % Cream cream Apply 1 Application topically daily as needed. Apply to affected area up to twice daily --> okay to use every day without breaks if needed Do not take morning of surgery Losartan 25 MG tablet Take 1 tablet by mouth daily. (Patient taking differently: Take 1 tablet by mouth daily every morning.) Do not take 24 hours prior to surgery magnesium oxide 400 (241.3 Mg) MG tablet Take 1 tablet by mouth 2 times daily. Do not take morning of surgery Montelukast 10 MG tablet Take 1 tablet by mouth daily. (Patient taking differently: Take 1 tablet by mouth daily every morning.) Take morning of surgery. Multiple Vitamins-Minerals (Multivitamins) Chew Tab Chew 2 tablets daily. May take pediatric or adult chalky chewable vitamin; double the recommended daily dose. (Patient taking differently: Chew 2 tablets daily every morning. May take pediatric or adult chalky chewable vitamin; double the recommended daily dose.) Do Not take 14 days prior to surgery mycophenolate sodium (MYFORTIC) [address] Take 3 tablets by mouth every 12 hours. (Patient taking differently: Take 3 tablets by mouth every 12 hours. Take 3 tablets bid.) Take morning of surgery. OLANZapine 2.5 MG tablet Take 1 tablet by mouth at bedtime. Take as normally scheduled. Pantoprazole (Protonix) [address] tablet DR Take 1 tablet by mouth 2 times daily. Take morning of surgery. rOPINIRole 0.5 MG tablet Take 1 tablet by mouth at bedtime. Take as normally scheduled. sildenafil citrate 100 MG tablet Take 0.5-1 tablets by mouth as needed for Erectile Dysfunction. Do not take morning of surgery Sodium Zirconium Cyclosilicate (Lokelma) 5 g Pack powder Take 1 packet by mouth Every morning. 2hrs after all meds Do not take morning of surgery Tacrolimus (PROGRAF) 1 MG capsule Take 6 capsules by mouth 2 times daily. Take morning of surgery. Terbinafine 1 % Cream cream Place 1 Application on skin As directed as needed. Apply to affected area (feet) twice daily Do not take morning of surgery DO NOT take Excedrin, ibuprofen, Advil, Voltaren (Diclofenac), Motrin, naproxen, or Aleve, Mobic (Meloxicam) for the 7 days before surgery. Acetaminophen (Tylenol) is ok to take up until the day of surgery for pain control VITAMINS & HERBALS Do NOT take herbal medications or vitamins such as, but not limited to, fish oil ([place]-3), garlic, glucosamine -chondroitin, gingko, ginseng, probiotics, or multivitamins) 2 weeks before surgery unless your surgeon instructed differently. If your Medical Doctor has prescribed vitamins or herbal supplements due to a medical condition such as malabsorption issues, only hold the day of surgery. DIET INSTRUCTIONS: NO food or drink after 11 pm the night before surgery except for enough water to take your medications. (No Candy, Mints and/or Gum). If your surgeon has given you special shakes to take prior to surgery, it is okay to take them and follow those instructions SOAP INSTRUCTIONS (if this applies to you): To lessen your chance of getting an infection after your surgery, you will need to wash your skin with a special soap called 4% Chlorhexidine Gluconate (CHG) before your surgery. Your nurse has given you CHG soap today and written instructions; Getting Your Skin Ready for Surgery . Please review the instructions carefully prior to your surgery. AVOID using surgical soap around eyes, ears, nose, mouth, and genital areas. OBSTRUCTIVE SLEEP APNEA (if this applies to you): Patients with obstructive sleep apnea need to be cautious with general anesthesia. The condition makes anesthesia riskier because it slows down breathing and can make you more sensitive to its effects. If you have sleep apnea, you might experience being more tired and taking longer to wake up from anesthesia. If you do have a diagnosis of obstructive sleep apnea, we ask you to bring your own CPAP/Autopap or any machine/devices you use for the treatment of sleep apnea if you have them. Patient Education handout DEMI Care after Sedation or Anesthesia given to patient. PREOPERATIVE INSTRUCTIONS: If additional testing has been ordered by [facility]AC outside of what can be done today after your visit, we will contact you with an appointment date, location and time for this testing. Please complete this testing as it would be vital to proceeding with your surgery. Any delays in testing could result in delays in your surgery. . Do not wear any jewelry, watches, rings, hairpieces, makeup, dentures, glasses or contact lenses on day of surgery. Do not wear artificial nails or nail malagasy the day of surgery. Do NOT bring your hearing aids or dentures or partials with you into surgery. They may get lost. Give them to someone to bring to you after surgery Shower the night before and the morning of surgery. If we have provided you with a special soap, follow those directions. AVOID using surgical soap around eyes, ears, nose, mouth, and genital areas Avoid any creams, ointments or deodorant on the morning of surgery Do not shave, or pluck hair from anywhere near the surgical site for 48 hours prior to surgery. [place] your teeth and rinse your mouth the morning of surgery. Avoid Swallowing toothpaste. If you are a female, under the age of 60, you may be required to provide a urine specimen the morning of surgery. DO NOT DRINK ALCOHOL for at least 24 hours prior to surgery. AVOID USING NICOTINE or TOBACCO of any form around the time of surgery. This includes but not limited to: Smoking, Cigarettes, Vaping, Chewing/Rubbing Tobacco and Nicorette Gum. If you smoke, we recommend that you quit smoking at least 2 weeks prior to surgery as nicotine products can impair wound healing. Your anesthesia team recommends that you have no nicotine in your system for at least 24 hours (at a minimum) prior to anesthesia. Your surgery could get cancelled at your surgeon's discretion if you do not follow these instructions AVOID MARIJUANA USE for at least 72 hours prior to surgery. Arriving to surgery intoxicated or under the influence of recreational drugs may result in cancellation of procedure. If you have a cold or flu symptoms, recently hospitalized or new diagnosis, please contact your surgeon s office before your procedure. If you become ill, develop a fever, cough, develop any type of infection, or are admitted to the hospital for any reason within 14 days of your scheduled surgery, please notify our team ([facility]) and your surgeon's office. You may need to have your surgery moved, as we would not want to put you at risk for complications, You MUST arrange for a responsible adult to drive you to your procedure, stay for the surgery, listen to discharge instructions, and drive you home after surgery, otherwise your surgery may be cancelled. SURGERY LOCATIONS [facility] [address] [place] [address] Parking: Cross Country/Track And Field Coach or Safe [employer] Phone-Main [place] [phone]-Ask for the Surgery Department Please call for any questions, delay of arrival, cancellation, or illness on the day of surgery. [facility] [address] [place] [address] 1st Floor Surgery Center [place], [place] [address] Please call for any questions, delay of arrival, cancellation, or illness on the day of surgery. [facility] [address] [place] [address]. [place], [place] [address] Please call for any questions, delay of arrival, cancellation, or illness on the day of surgery. [facility] [place] [address] [place] [id number] Please call for any questions, delay of arrival, cancellation, or illness on the day of surgery. PLEASE BRING YOUR MEDICATIONS WITH YOU IN THE ORIGINAL BOTTLES, ON THE DAY OF SURGERY. [facility] [address] [place] [address] Please call for any questions, delay of arrival, cancellation, or illness on the day of surgery. PLEASE BRING YOUR MEDICATIONS WITH YOU IN THE ORIGINAL BOTTLES, ON THE DAY OF SURGERY. [facility] [address] [place], [place] [address] Please call for any questions, delay of arrival, cancellation, or illness on the day of surgery. [facility] [address] [place], [place] [address] Please call for any questions, delay of arrival, cancellation, or illness on the day of surgery. [facility] Preoperative Testing [facility] [place] [phone] AVS/EEH documented in this encounter [facility] 02-20-2024 History of Present illness Narrative Pre-Operative Diet Education Met with Lino who was referred by Dr. Griselda Gallegos to discuss the liver shrink diet providing [...] motivation to learn and/or adhere to recommendations Health And Safety Coordinator resource utilized: No Spent 10 minutes with patient [id number] providing nutrition assessment and/or counseling/education Bina Sheets MS, RDN, LD documented in this encounter [facility] 02-20-2024 History of Present illness Narrative Surgeon [...] surgical consent 3 [x] 1. Introduced to [facility] Nursing Clinical Care Management and call triage [...] may also forward it on to a MUD TEMPERER and or the surgeon, or dietitian, as appropriate. 4 [x] 1. Identified location of surgery as [address] [place] [address] with arrival location at the main hospital entrance at Registration. Advised: 2. Preregistration - The hospital will call to pre-register patients for surgery. For patients that have not been called within 2 days of the surgery date, they should call Preregistration at [phone] or [phone]. Patients with MYChart should log in to [...] hospital in case they don't like the [facility] provided shakes. 10 [x] 1. Discussed having [...] within 1 month of surgery. 2. Offered [facility] resources as needed. [facility] Internal Medicine accepts patients in attending clinic [...] on How to Use an Incentive Spirometer/Breathing In Home Caregiver. [facility] Patient Education information sheet included in clinic pre-op bag. 2. Reviewed use of a pillow to splint the abdomen for coughing and deep breathing. 17 [x] Reinforced the importance of calling surgery procedural scheduling at [phone] for the development of any untoward symptoms such as a cold, new infection, etc. That might develop before surgery. A surgery may be cancelled up to and including the day of surgery for any pt with symptomatic contraindications to surgery. 18 [x] Advised to bring cell phone and psych sales specialist on the day of surgery. (Patients can [...] Living Will and Health Care Power of Food And Drug Inspector forms (if you have them). G. Your cell phone and psych sales specialist. Your phone will be used as a [...] visit within 2 weeks of discharge. The ripley practice SHAKE CUTTER will then see the patient at subsequent post-operative visits of 1 month, 2 months, 6 months, then annually. 2. Reviewed importance to be seen annually by a bariatric property management specialist and to have a nutritional lab [...] may be asked to reschedule. Met with RD for liver shrink diet review and post [...] Bilateral; Surgeon: Charley Mccracken MD, PhD; Location: [facility] MAIN OR NEPHRECTOMY 2021 APPENDECTOMY LAPAROSCOPIC N/A 12/26/2019 Laterality: N/A; Surgeon: Rosy Lynn DO; Location: [facility] MAIN OR GASTRECTOMY LONGITUDINAL (SLEEVE) LAPAROSCOPIC N/A 08/10/2019 Laterality: N/A; Surgeon: Griselda Gallegos MD; Location: [facility] SAME DAY SURGERY MAIN OR EGD DIAGNOSTIC N/A 08/10/2019 Laterality: N/A; Surgeon: Griselda Gallegos MD; Location: [facility] SAME DAY SURGERY MAIN OR EGD DIAGNOSTIC N/A 04/24/2019 Laterality: N/A; Surgeon: Nahomy Santos MD; Location: [facility] ENDOSCOPY LAPAROTOMY EXPLORATORY N/A 02/27/2019 Laterality: N/A; Surgeon: Raul Lott MD; Location: [facility] MAIN OR HERNIA REPAIR 02/27/2019 REPAIR HERNIA UMBILICAL OPEN W/ MESH N/A 05/09/2017 Laterality: N/A; Surgeon: CORNEL Elizondo; [facility] MA[facility] OR KIDNEY TRANSPLANT W/O TUNUNAK NEPHRECTOMY N/A 09/25/2016 Laterality: N/A; Surgeon: Jose Shaw MD; Location[facility] MAIN OR [place] ARTHROSCOPY KNEE MENISCAL TRNSPLJ MED/LAT Right 11/12/2014 [...] a laparoscopic revision with a gastrojejunostomy and may-en-y reconstruction. Plan: Lino Fontenot was informed of [...] consent was signed. He will see our disability case manager prior to starting the 3 week liver [...] VTE R/b/a/p discussed, agrees to proceed Griselda Gallegos MD Preoperative Education Check-List The patient was [...] this visit: yes documented [facility] Instructions Lidia Rosenthal - 02/20/2024 11:00 AM EDT BEFORE SURGERY: PRE-PROCEDURE PREPARATION ([facility]AC) Date: 03/09/24 Call Time: 11:30 am Patients who are scheduled for a surgical or other procedure at [facility] may be required to complete a pre-operative [...] are completely informed about what to expect. [facility] ([facility]) Date: 02/25/24 Arrival Time: 10:15 am Located at: [address] - 1st floor of the [address]xton, [address] [place] [address] PLEASE REGISTER ON THE 1ST FLOOR BAGLEY Please allow 2 hours for your [facility] [...] to discuss with the doctor or nurse [facility] doctors and staff are educators who teach [...] to surgery, please contact our office at [phone] Please note that this schedule is subject [...] you do [place] [address] [place] in [address], Patient Admissions (1st room on the right) Office #: [phone] Fax #: [phone] CURRENT COVID VISITOR POLICY: These visitor policy [...] service home, an adult, other than the commercial truck driver, needs to ride with you for your safety. This person will also be responsible for communicating post-operative instructions to you. If you would like to sign up for text messages for [facility] appointment reminders text [facility] TO [phone]. You will receive a response within a [...] if you have diabetes. Diuretics (water pills) MICHAEL Inhibitors for blood pressure Digoxin unless used for irregular heartbeat, such as atrial fibrillation Take these medicines the morning of surgery with a sip of water: All heart medicines All blood pressure medicine, except diuretics (water pills) and MICHAEL inhibitors All breathing medicines, including inhalers All [...] the hospital. Do not wear makeup, nail malagasy or hair pins to the hospital. Please [...] a living will or durable power of attorney general, please bring a copy of the documents [...] your doctor s office. Driving Directions to [facility] From the North ([place], [place] and [place]) Take [address] major [address] to [address] south to the [place] exit Turn left onto [address] ([place] turns into [address]) Take [address] to [place] Turn left onto [place] Turn left onto [address] Turn right onto [facility] [address] See Parking Directions - Continued From the South ([facility] and [place]) Take any major highway to [address] to [address] to the [address] exit Turn right onto [address] Turn right onto [address] Turn left to stay on [address] Turn left onto [address] Turn left onto [address] Turn right onto [address] See Parking Directions - Continued From the East ([place], [place] and [place]) Take any major highway to [address] to [address] to the [address] exit Turn right onto [address] Turn right onto [address] Turn left to stay on [address] Turn left onto [address] Turn left onto [address] Turn right onto [address] See Parking Directions - Continued From the West ([place], [place] and [place]) Take any major highway to [address] to [address] to the the [address] exit Turn right onto [address] Turn right onto [address] Turn left to stay on [address] Turn left onto [address] Turn left onto [address] Turn right onto [address] See Parking Directions - Continued Parking Directions - Continued Patient Cross Country/Track And Field Coach Continued: Take [address] past the intersection of [address] and [address]. Continue straight to the front of [facility] ([facility]). Pull into Patient Cross Country/Track And Field Coach on your right. [employer] [address] [facility] [place] [address] Continued: From [address], turn left onto [facility]. The [employer] is located on the left and is connected to the medical center by a walkway bridge on the second fl oor. [address] [place] [address] Continued: Take [address] to [address] [...] ticket to any information desk in the [facility] to receive your discount ticket. Financial Obligation: [...] prior to the procedure being performed. A manufacturer representative from the [facility] will contact you to pre-register you for your services. If you have not received a call by two days prior to your procedure date, please call our Pre-Registration Department at [phone] or [phone]. By calling us in advance, your wait time will be reduced. Our trained representatives can assist you in discussing both your physician and hospital obligations. Are you a [employer] user? If yes, you can log on and complete a pre-registration questionnaire. Room Service Associate: You are not eligible for Financial Assistance if you are entering the [facility] solely to seek medical treatment. We want to make sure all patients have access to quality healthcare services at [facility], and we are committed to working with [...] These options include helping you apply for: [place] Medicaid (if your income meets guidelines) The Affordable Care Act Insurance Exchange Program. Other federal/state assistance programs Or establish a payment plan Other Assistance: [facility] offers an additional sliding scale financial assistance [...] please contact the Financial Counseling Department at [phone] between 8 a.m. and 5 p.m. weekdays. A financial counselor can assist you with the application process. You will be screened for all potential programs. If you appear to be eligible for Medicaid, you will be assisted through the application process. As a Medicaid recipient, your physician fees and facility fees could be covered. Services not covered by [facility] financial assistance program: Physician Fees Transportation fees Dental Services Medically unnecessary services Prescriptions Durable Medical Equipment We Are 100% Tobacco-Free At The [facility], we care about the health of our patients, visitors and staff. That s why all of our locations - inside and outside - are 100% tobacco-free. We understand that nicotine is addictive, and we regret the inconvenience to tobacco users. However, as an [facility] with leading [facility] and [facility] hospitals, creating a healthy environment for everyone who attends, works and visits our Medical Center is important. documented in this encounter [facility] 01-15-2024 History of Present illness Narrative Nurse [...] to physical therapy documented in this encounter [facility] 01-15-2024 Instructions Rodrigo Saravia MD - 01/15/2024 11:00 AM EDT [...] to physical therapy documented in this encounter [facility] 12-25-2023 History of Present illness Narrative [...] graft (Left, 2009); tonsillectomy; kidney transplant w/o [place] nephrectomy (N/A, 09/25/2016); pr arthroscopy knee meniscal [...] 2. Ordering autotitrating CPAP. He will use [employer]. He understands that untreated DEMI is associated with heart failure, atrial fibrillation, strokes, HTN, and impaired glucose tolerance. 3. He should avoid respiratory suppressants as these can worsen sleep disordered breathing. 4. He should never drive if drowsy and should fur puller at a safe place if he becomes [...] his diet. documented in this encounter [facility] 12-25-2023 Instructions Cait Richardson MD - 12/25/2023 8:30 AM EDT [place] [employer] 4.7(527) [place] [facility] DEMI Education: You have obstructive sleep apnea [...] and become drowsy or sleepy, you should fur puller to a safe place. Below are our drowsy driving tips. PAP Machine Care: You should clean your PAP regularly (see your PAP outdoor fitness trainer site for more details) Daily cleaning 1. [...] and exercise program that can be maintained half-way. The [facility] does have a Living Well Program to help patients achieve their weight loss goals in a healthy and safe manor. This consists of a 6 month program that focuses on weight loss, nutrition, stress management and exercise. [email or web address] [email or web address]- [email or web address]-well [facility] Wellness and Prevention First floor of the [place] [address] For more information please call [phone]. documented in this encounter [facility] 12-04-2023 History of Present illness Narrative Nurse [...] disease, diabetes, etc. documented in this encounter [facility] 12-04-2023 Instructions Rodrigo Saravia MD - 12/04/2023 11:00 AM EDT [...] disease, diabetes, etc. documented in this encounter [facility] 12-04-2023 Procedure note Associated Ord er(s): EAR CERUMEN REMOVAL Post-Procedure Diagnose(s): Right ear impacted cerumen EAR CERUMEN REMOVAL Date/Time: 12/04/2023 11:00 AM Performed by: Rodrigo Saravia MD Authorized by: Rodrigo Saravia MD Procedure: Visualization: otoscopy Impaction noted: yes Location details: Right ear Procedure type: curette Patient tolerance: Tolerated well, no immediate complications [facility] 12-04-2023 Procedure note Associated Ord er(s): EAR CERUMEN REMOVAL Post-Procedure Diagnose(s): Right ear impacted cerumen EAR CERUMEN REMOVAL Date/Time: 12/04/2023 11:00 AM Performed by: Rodrigo Saravia MD Authorized by: Rodrigo Saravia MD Procedure: Visualization: otoscopy Impaction noted: yes Location details: Right ear Procedure type: curette Patient tolerance: Tolerated well, no immediate complications documented in this encounter [facility] 11-15-2023 History of Present illness Narrative Encounter for [facility] Home Sleep Apnea Test Patient has completed home sleep testing through [facility]. The data has been reviewed and sent to the interpreting physician. documented in this encounter [facility] 11-15-2023 History of Present illness Narrative Encounter for [facility] Home Sleep Apnea Test Patient has completed home sleep testing through [facility]. The data has been reviewed and sent to the interpreting physician. documented in this encounter [facility] 11-08-2023 History of Present illness Narrative Images from the original note were not included. HSAT ordered by Liza Penn during office visit on 09/30/2023 DX [...] Sleep Medicine Director, Sleep Disorders Center [facility] FAX: [phone] Email: [email or web address] documented in this encounter [facility] 09-30-2023 History of Present illness Narrative Presents [...] Yes [] No, Provided Website to review: [email or web address] 3. Is interested in the: [] Sleeve [...] Screening Assessment completed [x] Yes [] No MUD TEMPERER vs MD Visit General Visit Information: Reinforced instruction on the following as needed: 1. Pt instructed to consider self as an applicant for surgery. Pt will become a candidate for surgery when all initial Providers (MUD TEMPERER/RD/Psychologist) have approved the patient to move forward. 2. Notified that all bariatric surgeries are elective. Instructed that will see either biomedical engineering professor or TRIM SAWYER-SHAKE CUTTER today. Currently, RD and Psychologist may both be completed remotely for initial evaluation of surgical requirements if not already completed. 3. Will see Surgeon MD at a pre-operative visit after completing surgery requirements. 4. Expect that a Financial Land Development Manager will be in contact within the next 2 weeks and will assist with insurance requirements and programming navigation. The coordinator will follow the pt from the point of contact through surgical approval and scheduling. 5. Testing plan: If a Lab draw is requested today, it will be completed in the [facility] lab. An EKG will be done in the [place] here on site. Done if none has been completed within the last 6 months, or if otherwise indicated. Call Center Instruction: 1. There are no direct department calls. When calling the office ([phone]), the Call Center staff will notify the appropriate parties. 2. Encouraged the use of MY Chart and assisted with set up as needed. 3. Instructed and demonstrated as needed: sign up for [place] [phone] text message appointment reminders as applicable. 4. Reminded that the clinic office is open for calls M-F between 8:00am and 3:30pm. There is a Bariatric Surgery resident logistics operations director after this at [phone] Pt has 24 hour 7 days per week access to assistance. Assigned Clinic RN Instruction: An assigned clinic nurse will follow pt care along with today's Provider as of this date and throughout pre and postoperative care. A nurse is generally the initial person to receive the MY Chart and Call Center messages for the physicians and MUD TEMPERER's. These messages are triaged and answered by the nurse and forwarded on to a Provider as needed. Lab review process 1. Pt may see testing results in MYCHART. In general, pts will receive a call, Events CoreHART message, or letter from the Provider after [...] have the order placed. Language Preference [x] Russian [] Other: Badge Number of Health And Safety Coordinator: Orientation [x] Oriented to room and space as needed Stated understanding of educational instructions provided today. Additional questions answered. [x] Yes [] No If no, additional questions answered: 1. 2. 3. [facility] Comprehensive Weight Management, Metabolic & Bariatric Surgery [...] sign our bariatric surgery patient agreement. PCP: Geovanna Gonzales Reviewed weight history, goals, desired surgery, occupation & post operative support Goal weight/Surgery goals: to resolve GERD/severe reflux; weight goal 180 - 185 lbs. Weight issues date back to: early adult years - after leaving the [employer] & they have tried the following to lose weight: bariatric surgery (sleeve). phentermine (Adipex/Lomaira) - limited in dosing due to kidney disease / s/p renal transplant; couldn't use top or Well due to renal fxn. 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 Social History Tobacco [...] [] Insurance/Program Requirements per our Program Financial Land Development Manager. All patients will be checked for nicotine/cotinine [...] surgery increases risk for stricture and ulcer. [facility]'s Bariatric Surgery website is here: [email or web address] Link to watch [facility] Bariatric Surgery info session is here: [email or web address] Link to watch Dr. Santos's interview with a patient is here: [email or web address] Phone numbers for scheduling [facility] Cardiology & ECG [phone]. [facility] Pulmonary & Sleep Medicine (pulmonary consult, sleep studies, sleep consult): [phone]. EGD [phone], option 2. Comprehensive Weight Management Nurse Practitioner, Dietitian, Psychologist or Measurement And Verification Engineer appointments: [phone]. REYES Massey, with surgeons Griselda Gallegos, Maikel Frank, Ivelisse Sparks, Danny Ireland, & Nahomy Santos ACTIVITY TIME Direct communication with the patient 40 minutes Other patient care activities related to this service including chart/data review, coordination of care, and/or preparation of documentation. 6 minutes Total time spent on this service. 46 minutes Disposition: please schedule a 30 min Epic video visit follow up with Liza Penn in next available appointment for for surgical follow up AND weight management and specifically pre-op weight management for revision 12 Lead ECG performed per provider's order, per policy. Sign off provided by REYES Peña. Tracing to be scanned into IHIS. documented in this encounter [facility] 2023 Nurse Surgical operation note MD armando to HELADIO. IV removed. DC teaching reviewed. Pt declines help getting dressed. Family present. [facility] 2023 Nurse Note MD tr tabares DC. IV removed. DC teaching reviewed. Pt declines help getting dressed. Family present. documented in this encounter [facility] 2023 Nurse Note Sedation vitals and monitoring provided by anesthesia. [facility] 2023 Miscellaneous Notes Sedation vitals and [...] recorder via UPS. documented in this encounter [facility] 2023 History and physical note ENDOSCOPIC PREPROCEDURE HISTORY AND PHYSICAL HISTORY OF PRESENT ILLNESS: Lino Fontenot is a 58 y.o. male seen in the pre-procedure area at [facility]. The indication for endoscopic evaluation [...] Bilateral; Surgeon: Charley Mccracken MD, PhD; Location: [facility] MAIN OR NEPHRECTOMY 2021 APPENDECTOMY LAPAROSCOPIC N/A 12/26/2019 Laterality: N/A; Surgeon: Rosy Lynn DO; Location: [facility] MAIN OR GASTRECTOMY LONGITUDINAL (SLEEVE) LAPAROSCOPIC N/A 08/10/2019 Laterality: N/A; Surgeon: Griselda Gallegos MD; Location: [facility] SAME DAY SURGERY MAIN OR EGD DIAGNOSTIC N/A 08/10/2019 Laterality: N/A; Surgeon: Griselda Gallegos MD; Location: [facility] SAME DAY SURGERY MAIN OR EGD DIAGNOSTIC N/A 04/24/2019 Laterality: N/A; Surgeon: Nahomy Santos MD; Location: [facility] LAPAROTOMY EXPLORATORY N/A 02/27/2019 Laterality: N/A; Surgeon: Raul Lott MD; Location: [facility] MAIN OR HERNIA REPAIR 02/27/2019 REPAIR HERNIA UMBILICAL OPEN W/ MESH N/A 05/09/2017 Laterality: N/A; Surgeon: CORNEL Elizondo; Location: [facility] MAIN OR KIDNEY TRANSPLANT W/O TUNUNAK NEPHRECTOMY N/A 09/25/2016 Laterality: N/A; Surgeon: Jose Shaw MD; Location: [facility] MAIN OR WY KNEE SCOPE, MENISC TRANSPLANT Right 11/12/2014 right [...] INTERVENTIONAL UPPER ENDOSCOPY using Monitored Anesthesia Care. Ivelisse Sparks MD [facility] Work Phone: 2023 History and physical note ENDOSCOPIC PREPROCEDURE HISTORY AND PHYSICAL HISTORY OF PRESENT ILLNESS: Lino Fontenot is a 58 y.o. male seen in the pre-procedure area at [facility]. The indication for endoscopic evaluation [...] Bilateral; Surgeon: Charley Mccracken MD, PhD; Location: [facility] MAIN OR NEPHRECTOMY 2021 APPENDECTOMY LAPAROSCOPIC N/A 12/26/2019 Laterality: N/A; Surgeon: Rosy Lynn DO; Location: [facility] MAIN OR GASTRECTOMY LONGITUDINAL (SLEEVE) LAPAROSCOPIC N/A 08/10/2019 Laterality: N/A; Surgeon: Griselda Gallegos MD; Location: [facility] SAME DAY SURGERY MAIN OR EGD DIAGNOSTIC N/A 08/10/2019 Laterality: N/A; Surgeon: Griselda Gallegos MD; Location: [facility] SAME DAY SURGERY MAIN OR EGD DIAGNOSTIC N/A 04/24/2019 Laterality: N/A; Surgeon: Nahomy Santos MD; Location: [facility] ENDOSCOPY LAPAROTOMY EXPLORATORY N/A 02/27/2019 Laterality: N/A; Surgeon: Raul Lott MD; Location: [facility] MAIN OR HERNIA REPAIR 02/27/2019 REPAIR HERNIA UMBILICAL OPEN W/ MESH N/A 05/09/2017 Laterality: N/A; Surgeon: CORNEL Elizondo; Location: [facility] MAIN OR KIDNEY TRANSPLANT W/O TUNUNAK NEPHRECTOMY N/A 09/25/2016 Laterality: N/A; Surgeon: Jose Shaw MD; Location: [facility] MAIN OR WY KNEE SCOPE, MENISC TRANSPLANT Right 11/12/2014 right [...] INTERVENTIONAL UPPER ENDOSCOPY using Monitored Anesthesia Care. Ivelisse Sparks MD documented in this encounter [facility] 2023 Nurse Note Bergeron teaching done with pt. He has been off of PPI x 1 week and has no stated nickel allergy. Pt states his worst symptoms are reflux and heartburn. He was taught how to record these, plus meals and sleep. Pt voices understanding. Box was given to return recorder via UPS. [facility] 05-28-2023 History of Present illness Narrative -Referring [...] MD, in the presence of a medical cement finisher apprentice. [x] A full body skin exam was [...] Neoplasm of uncertain behavior of skin D48.5 WY SHAV SKIN LES 0.6-1CM TRUNK,ARM,LEG SURG PATH [...] , served as a scribe and medical cement finisher apprentice for this exam/procedure on 05/28/2023 This exam/procedure was conducted by Aliza Davis MD in the presence of a medical cement finisher apprentice I have reviewed this documentation scribed above and it is accurate as of 05/28/2023 12:25 PM Aliza Davis MD Assembly Line Machine Operator Division of Dermatology [facility] documented in this encounter [facility] 05-28-2023 Instructions Sarah Guerra - [...] oxide). Some that I recommend include: - Japanese Gold Botanical Mineral Sunscreen - SPF 30 [...] within fourteen days. Results are autoreleased on [facility] before being reviewed by the physician. Please [...] pressure on the wound and call your topper press operator automatic or go to your local emergency room. Pain: Local anesthesia will wear off in approximately 1-3 hours. The area may burn, throb, feel tender or sore but should NOT be excruciatingly painful. If your wound hurts, take Tylenol or Extra-Strength Tylenol (acetaminophen) as directed on bottle, as needed. If Tylenol does not control the pain, alternate between Tylenol and Ibuprofen Call your topper press operator automatic for pain not controlled by Tylenol and [...] removed (over the counter) Who to call [facility] Dermatology at for problems Saturday through Saturday in the morning or afternoon. For Urgent problems in the evenings or after hours, call the hospital four slide operator at and ask for the Seismometer Operator logistics operations director. TEST RESULTS: We will make every effort to communicate your biopsy test results within ten business days. Certain results may take longer, but are usually received within fourteen days. Results are autoreleased on [facility] before being reviewed by the physician. Please allow 3 business days after results are released for the physician to review results and determine management. Your results will be communicated to you in one of three ways; Mailed to you SimpleOrder Message Reviewed with you over the phone If you have any questions about your visit today or your tests, please call us at [phone] Option 4. Please wait 14 days prior to calling for test results This flipbook was created as a guide to Mohs micrographic surgery, but it has helpful information about healing towards the end. documented in this encounter [facility] 04-22-2023 History of Present illness Narrative Date of Service : 04/19/2023 CHIEF COMPLAINT: New patient with right ankle pain. Chief Complaint Patient presents with New Patient New Pt, Rt ankle pain. DOI 03/11/23(39 days) Michael Wrap from ED with minimal relief. 4/10 pain at rest, 6/10 pain with WB/Activity. HISTORY: The patient is a 57-year-old male, who presents today with right ankle pain. He injured it about 40 days ago. He had an Michael bandage, they gave him minimal relief. It never got better. He has 4/10 pain at rest, 6/10 with activity. He notes that he fell and rolled his ankle. He was seen in the [place] [facility] on March 11, 2023, a day after the injury and only one in an Michael wrap at that point. He works doing [...] Bilateral; Surgeon: Charley Mccracken MD, PhD; Location: [facility] [place] MAIN OR NEPHRECTOMY 2021 APPENDECTOMY LAPAROSCOPIC N/A 12/26/2019 Laterality: N/A; Surgeon: Rosy Lynn DO; Location: [facility] MAIN OR GASTRECTOMY LONGITUDINAL (SLEEVE) LAPAROSCOPIC N/A 08/10/2019 Laterality: N/A; Surgeon: Griselda Gallegos MD; Location: [facility] SAME DAY SURGERY MAIN OR EGD DIAGNOSTIC N/A 08/10/2019 Laterality: N/A; Surgeon: Griselda Gallegos MD; Location: [facility] SAME DAY SURGERY MAIN OR EGD DIAGNOSTIC N/A 04/24/2019 Laterality: N/A; Surgeon: Nahomy Santos MD; Location: [facility] ENDOSCOPY LAPAROTOMY EXPLORATORY N/A 02/27/2019 Laterality: N/A; Surgeon: Raul Lott MD; Location: [facility] MAIN OR HERNIA REPAIR 02/27/2019 REPAIR HERNIA UMBILICAL OPEN W/ MESH N/A 05/09/2017 Laterality: N/A; Surgeon: CORNEL Elizondo; Location: [facility] MAIN OR KIDNEY TRANSPLANT W/O TUNUNAK NEPHRECTOMY N/A 09/25/2016 Laterality: N/A; Surgeon: Jose Shaw MD; Location: [facility] MAIN OR WY KNEE SCOPE, MENISC TRANSPLANT Right 11/12/2014 right [...] as tolerated and he does physical therapy. (DOC:[id number]) Review of Systems Constitutional: Negative for chills, [...] diabetic *No dentures/partials [facility] History of Present illness Narrative Subjective [...] elevation to help. documented in this encounter [facility] 03-11-2023 Emergency department Note Pts right foot wrapped in an michael bandage. Pt verbalized understanding of DC instructions. He denied any further complaints and ambulated out of er [facility] 03-11-2023 Emergency department Note Pts right foot wrapped in an michael bandage. Pt verbalized understanding of DC instructions. He denied any further complaints and ambulated out of er Emergency Department Report [facility] Service Date:.03/11/23 PCP: Geovanna Gonzales Chief Complaint: Chief Complaint Patient presents with Foot Pain Fell and injured inside of right foot at 1530 today. 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 HPI Lino Fontenot is a 57 y.o. [...] Surgeon: Charley Mccracken MD, PhD; [facility] NEPHRECTOMY 2021 APPENDECTOMY LAPAROSCOPIC N/A 12/26/2019 Laterality: N/A; Surgeon: Rosy Lynn DO; Location: [facility] MAIN OR GASTRECTOMY LONGITUDINAL (SLEEVE) LAPAROSCOPIC N/A 08/10/2019 Laterality: N/A; Surgeon: Griselda Gallegos MD; Location: [facility] SAME DAY SURGERY MAIN OR EGD DIAGNOSTIC N/A 08/10/2019 Laterality: N/A; Surgeon: Griselda Gallegos MD; Location: [facility] SAME DAY SURGERY MAIN OR EGD DIAGNOSTIC N/A 04/24/2019 Laterality: N/A; Surgeon: Nahomy Santos MD; Location: [facility] ENDOSCOPY LAPAROTOMY EXPLORATORY N/A 02/27/2019 Laterality: N/A; Surgeon: Raul Lott MD; Location: [facility] MAIN OR HERNIA REPAIR 02/27/2019 REPAIR HERNIA UMBILICAL OPEN W/ MESH N/A 05/09/2017 Laterality: N/A; Surgeon: CORNEL Elizondo; Location: [facility] MAIN OR KIDNEY TRANSPLANT W/O TUNUNAK NEPHRECTOMY N/A 09/25/2016 Laterality: N/A; Surgeon: Jose Shaw MD; Location: [facility] MAIN OR WY KNEE SCOPE, MENISC TRANSPLANT Right 11/12/2014 right [...] want an air splint so was given Michael wrap. He also declined crutches. He is [...] the patient with above information. . . Ilia Shaffer MD 03/11/23 0022 Has rt inner foot/ankle pain. + Rt pedal pulse, moves toes easily. Fresh Ice pack to area. documented in this encounter [facility] 03-11-2023 Hospital Discharge instructions Ilia Shaffer MD - 03/11/2023 12:16 AM EDT Call your doctor for follow-up appointment. Apply ice 5 times a day 15 minutes a time as needed for pain and swelling over the next 48 hours. Continue to wear the Michael wrap until you follow-up with your primary doctor. You can take Tylenol 650 mg every 6 hours as needed for pain. If worsening symptoms come back to the ER. The following attachments cannot be sent through Care Everywhere.Pain and Pain Control ([facility]) (Russian)Ankle Sprain (Russian)Ankle Sprain: Rehab Exercises (Russian)RICE: General Info (Russian)documented in this encounter [facility] 03-10-2023 Physician Emergency department Note Emergency Department Report [facility] Service Date:.03/11/23 PCP: Geovanna Gonzales Chief Complaint: Chief Complaint Patient presents with Foot Pain Fell and injured inside of right foot at 1530 today. 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 HPI Lino Fontenot is a 57 y.o. [...] Surgeon: Charley Mccracken MD, PhD; Location: [facility] MAIN OR NEPHRECTOMY 2021 APPENDECTOMY LAPAROSCOPIC N/A 12/26/2019 Laterality: N/A; Surgeon: Rosy Lynn DO; Location: [facility] MAIN OR GASTRECTOMY LONGITUDINAL (SLEEVE) LAPAROSCOPIC N/A 08/10/2019 Laterality: N/A; Surgeon: Griselda Gallegos MD; Location: [facility] SAME DAY SURGERY MAIN OR EGD DIAGNOSTIC N/A 08/10/2019 Laterality: N/A; Surgeon: Griselda Gallegos MD; Location: [facility] DAY [facility]GERY MAIN OR EGD DIAGNOSTIC N/A 04/24/2019 Laterality: N/A; Surgeon: Nahomy Santos MD; Location: [facility] ENDOSCOPY LAPAROTOMY EXPLORATORY N/A 02/27/2019 Laterality: N/A; Surgeon: Raul Lott MD; Location: [facility] MAIN OR HERNIA REPAIR 02/27/2019 REPAIR HERNIA UMBILICAL OPEN W/ MESH N/A 05/09/2017 Laterality: N/A; Surgeon: CORNEL Elizondo; Location: [facility] MAIN OR KIDNEY TRANSPLANT W/O TUNUNAK NEPHRECTOMY N/A 09/25/2016 Laterality: N/A; Surgeon: Jose Shaw MD; Location: [facility] MAIN OR WY KNEE SCOPE, MENISC TRANSPLANT Right 11/12/2014 right [...] want an air splint so was given Michael wrap. He also declined crutches. He is [...] the patient with above information. . . Ilia Shaffer MD 03/11/23 0022 [facility] 03-10-2023 Emergency department Note Has rt inner foot/ankle pain. + Rt pedal pulse, moves toes easily. Fresh Ice pack to area. [facility] 12-10-2022 History of Present illness Narrative Comprehensive [...] at time of visit. Continue following with Geovanna Gonzales to discuss preventive health recommendations. 3. Goals as identified below. See AVS/MyChart for patient education. Follow up: in 6 week(s) via blogfoster video visit I have counseled the patient [...] 28 minutes documented in this encounter [facility] 10-29-2022 History of Present illness [...] if s/sx persist/worsen. documented in this encounter [facility] 10-26-2022 History of Present illness Narrative Images from the original note were not included. Patient Name: [facility] Location: Lino Fontenot [address] [facility] [id number] Date Of : Date Of Visit: 1965 10/26/2022 MRN# Provider: [id number] Mary Moreira PA-C Chief Complaint Patient presents [...] dog that he knew. He presented to [facility] ED in [place]. The ED provider sutured a wound between [...] for this visit. documented in this encounter [facility] 10-24-2022 Emergency department Note Triple antibiotic ointment applied to laceration post suture. Non-stick dressing applied and wrapped with kerlix [facility] 10-24-2022 Emergency department Note Triple antibiotic ointment applied to laceration post suture. Non-stick dressing applied and wrapped with kerlix Cleansed laceration with hibiclens and sterile water, bleeding controlled. Emergency Department Report [facility] Service Date:.10/24/22 PCP: Geovanna Gonzales Chief Complaint: No chief complaint on file. JOE Fontenot is a 57 y.o. male presents [...] Bilateral; Surgeon: Charley Mccracken MD, PhD; Location: [facility] MAIN OR APPENDECTOMY LAPAROSCOPIC N/A 12/26/2019 Laterality: N/A; Surgeon: Rosy Lynn DO; Location: [facility] MAIN OR GASTRECTOMY LONGITUDINAL (SLEEVE) LAPAROSCOPIC N/A 08/10/2019 Laterality: N/A; Surgeon: Griselda Gallegos MD; Location: [facility] SAME DAY SURGERY MAIN OR EGD DIAGNOSTIC N/A 08/10/2019 Laterality: N/A; Surgeon: Griselda Gallegos MD; Location: [facility] SAME DAY SURGERY MAIN OR EGD DIAGNOSTIC N/A 04/24/2019 Laterality: N/A; Surgeon: Nahomy Santos MD; Location: [facility] ENDOSCOPY LAPAROTOMY EXPLORATORY N/A 02/27/2019 Laterality: N/A; Surgeon: Raul Lott MD; Location: [facility] MAIN OR HERNIA REPAIR 02/27/2019 REPAIR HERNIA UMBILICAL OPEN W/ MESH N/A 05/09/2017 Laterality: N/A; Surgeon: CORNEL Elizondo; Location: [facility] MAIN OR KIDNEY TRANSPLANT W/O TUNUNAK NEPHRECTOMY N/A 09/25/2016 Laterality: N/A; Surgeon: Jose Shaw MD; Location: [facility] MAIN OR WY KNEE SCOPE, MENISC TRANSPLANT Right 11/12/2014 right [...] follow up in Aug 2021. Scheduling phone [phone] CAPSULE Take [...] MD 10/24/22 0731 documented in this encounter [facility] 10-24-2022 Emergency department Note Cleansed laceration with hibiclens and sterile water, bleeding controlled. [facility] 10-24-2022 Physician Emergency department Note Emergency Department Report [facility] Service Date:.10/24/22 PCP: Geovanna Gonzales Chief Complaint: No chief complaint on file. JOE Fontenot is a 57 y.o. male presents [...] Bilateral; Surgeon: Charley Mccracken MD, PhD; Location: [facility] MAIN OR APPENDECTOMY LAPAROSCOPIC N/A 12/26/2019 Laterality: N/A; Surgeon: Rosy Lynn DO; Location: [facility] MAIN OR GASTRECTOMY LONGITUDINAL (SLEEVE) LAPAROSCOPIC N/A 08/10/2019 Laterality: N/A; Surgeon: Griselda Gallegos MD; Location: [facility] SAME DAY SURGERY MAIN OR EGD DIAGNOSTIC N/A 08/10/2019 Laterality: N/A; Surgeon: Griselda Gallegos MD; Location: [facility] SAME DAY SURGERY MAIN OR EGD DIAGNOSTIC N/A 04/24/2019 Laterality: N/A; Surgeon: Nahomy Santos MD; Location: [facility] ENDOSCOPY LAPAROTOMY EXPLORATORY N/A 02/27/2019 Laterality: N/A; Surgeon: Raul Lott MD; Location: [facility] MAIN OR HERNIA REPAIR 02/27/2019 REPAIR HERNIA UMBILICAL OPEN W/ MESH N/A 05/09/2017 Laterality: N/A; Surgeon: CORNEL Elizondo; Location: [facility] MAIN OR KIDNEY TRANSPLANT W/O TUNUNAK NEPHRECTOMY N/A 09/25/2016 Laterality: N/A; Surgeon: Jose Shaw MD; Location: [facility] MAIN OR WY KNEE SCOPE, MENISC TRANSPLANT Right 11/12/2014 right knee scope with lateral meniscus repair per Dr. Avery HERNIA REPAIR Right 01/08/2012 inguinal - uncomplicated [...] follow up in Aug 2021. Scheduling phone [phone] [address] CAPSULE Take [...] information. . Maico Hernadez MD 10/24/22 0731 [facility] Work Phone: 09-03-2022 Note Addended by: ANDREW BINGHAM on: 09/03/2022 09:41 AM Modules accepted: Orders [facility] 09-03-2022 Miscellaneous Notes Addended by: ANDREW MCDUFFIE on: 09/03/2022 09:41 AM Modules accepted: Orders documented in this encounter [facility] 09-02-2022 Instructions Jayshree Vilchis CNP - 09/02/2022 1:23 PM EST Plan: Zithromax and Polytrim as prescribed. Call your catering coordinator nurse today to notify of the [...] attachments cannot be sent through Care Everywhere.Conjunctivitis (Russian)Taking Care of Pinkeye at Home: Video (Russian)Here's Help: How to Give Yourself Eyedrops or Eye Ointment: Video (Russian)Sinusitis (Russian)documented in this encounter [facility] 09-02-2022 Instructions Jayshree Vilchis CNP - 09/02/2022 1:23 PM EST Plan: Zithromax and Polytrim as prescribed. Call your catering coordinator nurse today to notify of the [...] attachments cannot be sent through Care Everywhere.Conjunctivitis (Russian)Taking Care of Pinkeye at Home: Video (Russian)Here's Help: How to Give Yourself Eyedrops or Eye Ointment: Video (Russian)Sinusitis (Russian)documented in this encounter [facility] 09-02-2022 History of Present illness Narrative Images from the original note were not included. Patient Name: [facility] Location: Lino Fontenot [address] [facility] [address] Date Of : Date Of Visit: 1965 09/02/2022 MRN# Provider: [id number] Jayshree Vilchis CNP Chief Complaint Patient presents with [...] Zithromax and Polytrim as prescribed. Call your catering coordinator nurse today to notify of the [...] Zithromax and Polytrim as prescribed. Call your catering coordinator nurse today to notify of the new medications you are taking and inquire if any additional lab work is necessary. Make a follow up appointment with your primary care provider within 7 days for recheck. If symptoms worsen, change, or new symptoms develop go instead immediately to the nearest emergency room for further evaluation and treatment. documented in this encounter [facility] 09-02-2022 History of Present illness Narrative Images from the original note were not included. Patient Name: [facility] Location: Lino Fontenot [facility] [address] [facility] [address] Date Of : Date Of Visit: 1965 09/02/2022 MRN# Provider: [id number] Jayshree Vilchis CNP Chief Complaint Patient presents with [...] Zithromax and Polytrim as prescribed. Call your catering coordinator nurse today to notify of the [...] Zithromax and Polytrim as prescribed. Call your catering coordinator nurse today to notify of the new medications you are taking and inquire if any additional lab work is necessary. Make a follow up appointment with your primary care provider within 7 days for recheck. If symptoms worsen, change, or new symptoms develop go instead immediately to the nearest emergency room for further evaluation and treatment. documented in this encounter [facility] 08-30-2022 Instructions Jayshree Vilchis CNP - 08/30/2022 11:03 AM EST [...] evaluation and treatment. documented in this encounter [facility] 08-30-2022 History of Present illness Narrative Images from the original note were not included. Patient Name: [facility] Location: Lino Fontenot [facility] [facility] [address] Date Of : Date Of Visit: 1965 08/30/2022 MRN# Provider: [id number] Jayshree Vilchis CNP Chief Complaint Patient presents with [...] evaluation and treatment. documented in this encounter [facility] 04-21-2022 Emergency department Note Patient presented discharge instructions and education to follow up with an field agent and picking machine operator helper medications from the pharmacy. Patient left this ED ambulatory with a steady gait and even respirations. [facility] 04-21-2022 Emergency department Note Patient presented discharge instructions and education to follow up with an field agent and picking machine operator helper medications from the pharmacy. Patient left this ED ambulatory with a steady gait and even respirations. Patient's vision assessed. 20/50 with both eyes. But unable to see anything with affected eye. He did state that he wears bifocals normally and has terrible vision. Dr. Archuleta aware of his baseline vision. EMERGENCY DEPARTMENT REPORT [facility] EMERGENCY MEDICINE SERVICE DATE: 04/21/22 PCP: Geovanna Gonzales CHIEF COMPLAINT: Right eye redness Chief Complaint [...] to the emergency department or see an extruder operator. Patient wears contacts. REVIEW OF SYSTEMS: As [...] Bilateral; Surgeon: Charley Mccracken MD, PhD; Location: [facility] MAIN OR APPENDECTOMY LAPAROSCOPIC N/A 12/26/2019 Laterality: N/A; Surgeon: Rosy Lynn DO; Location: [facility] MAIN OR GASTRECTOMY LONGITUDINAL (SLEEVE) LAPAROSCOPIC N/A 08/10/2019 Laterality: N/A; Surgeon: Griselda Gallegos MD; Location: [facility] SAME DAY SURGERY MAIN OR EGD DIAGNOSTIC N/A 08/10/2019 Laterality: N/A; Surgeon: Griselda Gallegos MD; Location: [facility] SAME DAY SURGERY MAIN OR EGD DIAGNOSTIC N/A 04/24/2019 Laterality: N/A; Surgeon: Nahomy Santos MD; Location: [facility] ENDOSCOPY LAPAROTOMY EXPLORATORY N/A 02/27/2019 Laterality: N/A; Surgeon: Raul Lott MD; Location: [facility] MAIN OR HERNIA REPAIR 02/27/2019 REPAIR HERNIA UMBILICAL OPEN W/ MESH N/A 05/09/2017 Laterality: N/A; Surgeon: CORNEL Elizondo; Location: [facility] MAIN OR KIDNEY TRANSPLANT W/O TUNUNAK NEPHRECTOMY N/A 09/25/2016 Laterality: N/A; Surgeon: Jose Shaw MD; Location: [facility] MAIN OR [place]Y KNEE SCOPE, MENISC TRANSPLANT Right 11/12/2014 right [...] follow up in Aug 2021. Scheduling phone [phone] ROPINIROLE 0.5 MG TABLET Take 0.5 mg [...] Portions of this chart were created using [email or web address] electronic dictation. Please excuse any typographical or grammatical errors contained herein. Raheem Archuleta MD 04/21/22 1120 TO Ed with c/o right eye redness. Denies pain, itching, FB sensation, and injury. Saw urgent care tomorrow and was advised to seek emergent treatment and possible extruder operator eval. documented in this encounter [facility] 04-21-2022 Hospital Discharge instructions Raheem Archuleta MD - 04/21/2022 11:12 AM EDT You will need to see an eye doctor B[facility]LEE. The following attachments cannot be sent through Care Everywhere.Iritis (Russian)documented in this encounter [facility] 04-21-2022 Emergency department Note Patient's vision assessed. 20/50 with both eyes. But unable to see anything with affected eye. He did state that he wears bifocals normally and has terrible vision. Dr. Archuleta aware of his baseline vision. [facility] 04-21-2022 Physician Emergency department Note EMERGENCY DEPARTMENT REPORT [facility] EMERGENCY MEDICINE SERVICE DATE: 04/21/22 PCP: Geovanna Gonzales CHIEF COMPLAINT: Right eye redness Chief Complaint [...] to the emergency department or see an extruder operator. Patient wears contacts. REVIEW OF SYSTEMS: As [...] Bilateral; Surgeon: Charley Mccracken MD, PhD; Location: [facility] MAIN OR APPENDECTOMY LAPAROSCOPIC N/A 12/26/2019 Laterality: N/A; Surgeon: Rosy Lynn DO; Location: [facility] MAIN OR GASTRECTOMY LONGITUDINAL (SLEEVE) LAPAROSCOPIC N/A 08/10/2019 Laterality: N/A; Surgeon: Griselda Gallegos MD; Location: [facility] SAME DAY SURGERY MAIN OR EGD DIAGNOSTIC N/A 08/10/2019 Laterality: N/A; Surgeon: Griselda Gallegos MD; Location: [facility] SAME DAY SURGERY MAIN OR EGD DIAGNOSTIC N/A 04/24/2019 Laterality: N/A; Surgeon: Nahomy Santos MD; Location: [facility] ENDOSCOPY LAPAROTOMY EXPLORATORY N/A 02/27/2019 Laterality: N/A; Surgeon: Raul Lott MD; Location: [facility] MAIN OR HERNIA REPAIR 02/27/2019 REPAIR HERNIA UMBILICAL OPEN W/ MESH N/A 05/09/2017 Laterality: N/A; Surgeon: CORNEL Elizondo; Location: [facility] MAIN OR KIDNEY TRANSPLANT W/O TUNUNAK NEPHRECTOMY N/A 09/25/2016 Laterality: N/A; Surgeon: Jose Shaw MD; Location: [facility] MAIN OR [place] KNEE SCOPE, MENISC TRANSPLANT Right 11/12/2014 right [...] follow up in Aug 2021. Scheduling phone [phone] ROPINIROLE 0.5 MG TABLET Take 0.5 mg [...] Portions of this chart were created using [email or web address] electronic dictation. Please excuse any typographical or grammatical errors contained herein. Raheem Archuleta MD 04/21/22 1120 [facility] 04-21-2022 Emergency department Note TO Ed with c/o right eye redness. Denies pain, itching, FB sensation, and injury. Saw urgent care tomorrow and was advised to seek emergent treatment and possible extruder operator eval. [facility] 03-02-2022 History of Present illness Narrative History [...] resolution with tx. documented in this encounter [facility] 07-11-2022 Instructions REYES Shook - 01/08/2022 8:59 AM [...] sooner if needed. documented in this encounter [facility] 01-08-2022 History of Present illness Narrative History of Present Illness Erectile Dysfunction There is a complaint of erectile problems. Onset of problem was the beginning of the year and is described as cant last (will obtain erection, however, this will not last and then, at times, unable to even obtain an erection, also, dont get the urge to want to have sex. 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 GERD Lino presents to the office today for [...] sooner if needed. documented in this encounter [facility] 01-04-2022 History and physical note History of Present Illness Mr. Fontenot is a 56 y.o. male is being evaluated in [facility] due to his medical condition(s) S/p gastric bypass - 2019 Hypertension- stable on medication Kidney transplant 2016 - history of polycystic kidney disease GERD- stable on medication DEMI on CPAP- resolved since wt loss which increases his risk for perioperative complications. 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 Yes, prevenative [...] Staff Patient location during procedure: OR Room: [facility] Attending: Danny Mina MD Performed by: Bryon [...] oral Successful intubation technique: direct laryngoscopy Blade: Ferine Blade size: #4 Facilitating devices/methods: cricoid pressure [...] Placed This Encounter Type and Cross -Preadmission [place] ECG, CLINIC PERFORMED Lab A/P - Labs [...] ASA 3 or more DO Jono Cano [facility] Perioperative Clinic [facility] [address] Review of Systems Review of Systems [...] Laterality: N/A; Surgeon: Rosy Lynn DO; Location: [facility] MAIN OR GASTRECTOMY LONGITUDINAL (SLEEVE) LAPAROSCOPIC N/A 08/10/2019 Laterality: N/A; Surgeon: Griselda Gallegos MD; Location: [facility] SAME DAY SURGERY MAIN OR EGD DIAGNOSTIC N/A 08/10/2019 Laterality: N/A; Surgeon: Griselda Gallegos MD; Location: [facility] SAME DAY SURGERY MAIN OR EGD DIAGNOSTIC N/A 04/24/2019 Laterality: N/A; Surgeon: Nahomy Santos MD; Location: [facility] ENDOSCOPY LAPAROTOMY EXPLORATORY N/A 02/27/2019 Laterality: N/A; Surgeon: Raul Lott MD; Location: [facility] MA[facility] OR HERNIA REPAIR 02/27/2019 REPAIR HERNIA UMBILICAL OPEN W/ MESH N/A 05/09/2017 Laterality: N/A; Surgeon: CORNEL Elizondo; Location: [facility] MAIN OR KIDNEY TRANSPLANT W/O TUNUNAK NEPHRECTOMY N/A 09/25/2016 Laterality: N/A; Surgeon: Jose Shaw MD; Location: [facility] MAIN OR [place] KNEE SCOPE, MENISC TRANSPLANT Right 11/12/2014 right [...] FISTULA LACTIFEROUS DUCT TONSILLECTOMY Patient Care Team: Geovanna Gonzales APRN-SHAKE CUTTER as PCP - General (Nurse Practitioner - Family) Coordinator Transplant (Inactive) as PCP - Blending Operator Family History Problem Relation Age of Onset [...] Never Other Topics Concern Domestic Violence No [facility] 01-04-2022 History and physical note History of Present Illness Mr. Fontenot is a 56 y.o. male is being evaluated in [facility] due to his medical condition(s) S/p gastric bypass - 2019 Hypertension- stable on medication Kidney transplant 2017 - history of polycystic kidney disease GERD- stable on medication DEMI on CPAP- resolved since wt loss which increases his risk for perioperative complications. 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 Yes, prevenative [...] Staff Patient location during procedure: OR Room: [facility] Attending: Danny Mina MD Performed by: Bryon [...] Placed This Encounter Type and Cross -Preadmission [place] ECG, CLINIC PERFORMED Lab A/P - Labs [...] DO Jono Cano [facility] Perioperative Clinic [facility] [address] Review of Systems Review of Systems [...] Laterality: N/A; Surgeon: Rosy Lynn DO; Location: [facility] MAIN OR GASTRECTOMY LONGITUDINAL (SLEEVE) LAPAROSCOPIC N/A 08/10/2019 Laterality: N/A; Surgeon: Griselda Gallegos MD; Location: [facility] SAME DAY SURGERY MAIN OR EGD DIAGNOSTIC N/A 08/10/2019 Laterality: N/A; Surgeon: Griselda Gallegos MD; Location: [facility] SAME DAY SURGERY MAIN OR EGD DIAGNOSTIC N/A 04/24/2019 Laterality: N/A; Surgeon: Nahomy Santos MD; Location: [facility] ENDOSCOPY LAPAROTOMY EXPLORATORY N/A 02/27/2019 Laterality: N/A; Surgeon: Raul Lott MD; Location: [facility] MAIN OR HERNIA REPAIR 02/27/2019 REPAIR HERNIA UMBILICAL OPEN W/ MESH N/A 05/09/2017 Laterality: N/A; Surgeon: CORNEL Elizondo; Location: [facility] MAIN OR KIDNEY TRANSPLANT W/O TUNUNAK NEPHRECTOMY N/A 09/25/2016 Laterality: N/A; Surgeon: Jose Shaw MD; Location: [facility] MAIN OR [place] KNEE SCOPE, MENISC TRANSPLANT Right 11/12/2014 right [...] FISTULA LACTIFEROUS DUCT TONSILLECTOMY Patient Care Team: Geovanna Gonzales APRN-SHAKE CUTTER as PCP - General (Nurse Practitioner - Family) Coordinator Transplant (Inactive) as PCP - Blending Operator Family History Problem Relation Age of Onset [...] Violence No documented in this encounter [facility] 01-04-2022 Instructions Cayla Dean RN [...] site one week prior to surgery. - [place] your teeth and rinse your mouth the morning of surgery. - Do NOT bring your dentures or partials with you into surgery. They may be lost. Give them to someone to bring to you after surgery. If you are unable to complete your scheduled testing or appointments made by [facility] please contact [facility] at [phone]. Failure to do so could delay or [...] Information Management Department for all records requests. [phone] [phone] documented in this encounter [facility] 11-30-2021 History and physical note Images [...] graft (Left, 2009); tonsillectomy; kidney transplant w/o shoalwater nephrectomy (N/A, 09/25/2016); pr knee scope, menisc [...] 4, Warm. No clubbing. No cyanosis. Skin: [place], warm and dry. No rashes noted. Diagnostic [...] with several of these cysts in the shoalwater kidneys have increased density probably secondary to [...] in consultation for consideration for bilateral robotic shoalwater nephrectomy of polycystic kidneys which are painfully [...] patient that I do think a bilateral shoalwater nephrectomy is indicated given his symptoms. I typically perform this operation through the conventional midline open approach. I have discussed the case via e-mail with my colleague Dr. Mccracken who has experience robotic surgeon. I recommended that the patient consult with Dr. Mccracken for consideration of bilateral robotic shoalwater nephrectomy. In the meantime I do not believe he needs any additional imaging. We will refer him to [facility] for preoperative clearance. [facility] Work Phone: 11-30-2021 History and physical [...] graft (Left, 2009); tonsillectomy; kidney transplant w/o shoalwater nephrectomy (N/A, 09/25/2016); pr knee scope, menisc [...] 4, Warm. No clubbing. No cyanosis. Skin: [place], warm and dry. No rashes noted. Diagnostic [...] with several of these cysts in the shoalwater kidneys have increased density probably secondary to [...] in consultation for consideration for bilateral robotic shoalwater nephrectomy of polycystic kidneys which are painfully [...] patient that I do think a bilateral shoalwater nephrectomy is indicated given his symptoms. I typically perform this operation through the conventional midline open approach. I have discussed the case via e-mail with my colleague Dr. Mccracken who has experience robotic surgeon. I recommended that the patient consult with Dr. Mccracken for consideration of bilateral robotic shoalwater nephrectomy. In the meantime I do not believe he needs any additional imaging. We will refer him to [facility] for preoperative clearance. documented in this encounter [facility] 10-26-2021 Instructions Dexter Mcgrath RN - 10/26/2021 10:31 AM EDT - Referral placed with Urology - Return to clinic 09/20/2022 with CORNEL Jones as scheduled documented in this encounter [facility] 10-26-2021 History of Present illness Narrative Images from the original note were not included. PREP SHEET FOR NEPHROLOGY CLINIC Patient Name: Lino Fontenot Blending Operator: Chris Curtis Date of Kidney Transplant: 09/25/2016 Primary Disease: Polycystic Kidneys Transplant Email Campaign Manager: Ariel Hooper Primary Care physician: Geovanna Gonzales Evaluation for nephrectomy IMMUNOSUPPRESSION AND LABS: Current [...] omeprazole, rOPINIRole, sildenafil citrate, tacrolimus, and terbinafine [facility] - [address] [place] [address] [facility] [address] Change in lab frequency / new order today: no Labs needed in clinic today? no COORDINATOR NOTES: Images from the original note were not included. PREP SHEET FOR NEPHROLOGY CLINIC Patient Name: Lino Fontenot Blending Operator: Chris Curtis Date of Kidney Transplant: 09/25/2016 Primary Disease: Polycystic Kidneys Transplant Email Campaign Manager: Ariel Hooper Primary Care physician: Geovanna Gonzales Last Transplant Appointment: Evaluation for nephrectomy IMMUNOSUPPRESSION [...] omeprazole, rOPINIRole, sildenafil citrate, tacrolimus, and terbinafine [place] [address] [address] [place] [address] [address] [place] [phone] Change in lab frequency / new order [...] date not found documented in this encounter [facility] 10-09-2021 Instructions REYES Shook - 10/09/2021 2:46 [...] sooner if needed. documented in this encounter [facility] 10-09-2021 History of Present illness Narrative [...] the urge to want to have sex. 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 documented in this encounter [facility] 09-18-2021 History of Present illness Narrative Images from the original note were not included. Today we were happy to see Lino Fontenot at [facility] Post Transplant Office for [...] underwent a ventral hernia repair by Dr. yN in May. Had L upper arm AVF removed in 2018, done by local vascular Dr. Stringer in [facility] in [place], [place]. Had an incarcerated ventral hernia in [...] LAPAROSCOPIC N/A 08/10/2019 Laterality: N/A; Surgeon: Griselda Gallegos MD; Location: [facility] SAME DAY SURGERY MAIN OR EGD DIAGNOSTIC N/A 08/10/2019 Laterality: N/A; Surgeon: Griselda Gallegos MD; Location: [facility] SAME DAY SURGERY MAIN OR EGD DIAGNOSTIC N/A 04/24/2019 Laterality: N/A; Surgeon: Nahomy Santos MD; Location: [facility] ENDOSCOPY LAPAROTOMY EXPLORATORY N/A 02/27/2019 Laterality: N/A; Surgeon: Raul Lott MD; Location: [facility] MAIN OR HERNIA REPAIR 02/27/2019 REPAIR HERNIA UMBILICAL OPEN W/ MESH N/A 05/09/2017 Laterality: N/A; Surgeon: CORNEL Elizondo; Location: [facility] MAIN OR KIDNEY TRANSPLANT W/O TUNUNAK NEPHRECTOMY N/A 09/25/2016 Laterality: N/A; Surgeon: Jose Shaw MD; Location: [facility] MAIN OR [place] KNEE SCOPE, MENISC TRANSPLANT Right 11/12/2014 right [...] Preventative Health PCP Mr. Fontenot follows with Geovanna Gonzales for primary care. Risk for Diabetes Mr. [...] skin issues, and follow up with his topper press operator automatic.This, in combination with his current medical regimen should help improve blood pressure, cholesterol levels, energy level, and will help prevent intermediate project manager health complications, and may improve quality and length of life. Return to Clinic: The patient will follow-up with us in clinic in one year however we will see patient earlier should the need arise. We have ordered transplant specific labs per the center s guidelines to monitor and assess for toxicities from immunosuppressant drug therapy. Andrew Trinidad, MSN SHAKE CUTTER Transplant Nurse Practitioner [facility] [place] [place] [address] documented in this encounter [facility] 09-25-2016 Evaluation note Diagnosis Polycystic kidney disease Polycystic kidney, unspecified type -donor 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/25/2016 Kidney replaced by transplant [facility] Kidney replaced by transplant- Primary Abnormal blood chemistry Other abnormal blood chemistry Immunosuppressed status Unspecified disorder of immune mechanism Aftercare following organ transplant High risk medication use Encounter for long-term (current) use of other medications [facility] Polycystic kidney disease- Primary Polycystic kidney, unspecified type Acute bilateral low back pain without sciatica Erectile dysfunction, unspecified erectile dysfunction type -donor 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/25/2016 Kidney replaced by transplant Lack of sexual desire Hypoactive sexual desire disorder [facility] Diagnosis Acute bilateral low back pain without sciatica [facility] Kidney replaced by transplant- Primary [...] laparoscopic sleeve gastrectomy [facility] Diagnosis Polycystic kidney disease- Primary Polycystic kidney, unspecified type Gastroesophageal reflux disease without esophagitis Esophageal reflux S/P laparoscopic sleeve gastrectomy [facility] Preop exam for internal [...] kidney, unspecified type [facility] Diagnosis Erectile dysfunction, unspecified erectile dysfunction type- Primary Gastroesophageal reflux disease without esophagitis Esophageal reflux Environmental and seasonal allergies Polycystic kidney disease Polycystic kidney, unspecified type [facility] Diagnosis Low testosterone in male- Primary Acute bacterial conjunctivitis of right eye [facility] Diagnosis Redness of right eye- Primary Redness or discharge of eye [facility] Diagnosis Viral URI- Primary Acute upper respiratory infections of unspecified site [facility] Diagnosis Sinusitis, unspecified chronicity, unspecified location- Primary Acute conjunctivitis of both eyes, unspecified acute conjunctivitis type [facility] Diagnosis Sinusitis, unspecified chronicity, unspecified location- Primary Acute conjunctivitis of both eyes, unspecified acute conjunctivitis type [facility] Diagnosis Laceration of right hand without foreign body, initial encounter- Primary documented in this encounter [facility]* Diagnosis Dog bite of right hand with infection, initial encounter- Primary documented in this encounter [facility] note* Diagnosis Dog bite, initial encounter- Primary Encounter for post surgical wound check [facility] Diagnosis Class 2 severe obesity with serious comorbidity and body mass index (BMI) of 36.0 to 36.9 in adult, unspecified obesity type- Primary Gastroesophageal reflux disease without esophagitis Esophageal reflux S/P laparoscopic sleeve gastrectomy [facility] Diagnosis Sprain of right ankle, unspecified ligament, initial encounter- Primary Sprain of right foot, initial encounter [facility] Diagnosis Acute right ankle pain- Primary Sprain of right medial ankle joint, initial encounter documented in this encounter [facility] note* Diagnosis Right foot pain- Primary Pain in limb Sprain of right ankle, unspecified ligament, initial encounter documented in this encounter [facility] note* Diagnosis Lentigines- Primary Other dyschromia Skin [...] behavior of [facility] Diagnosis Gastroesophageal reflux disease without esophagitis Esophageal reflux S/P laparoscopic sleeve gastrectomy [facility] Diagnosis Gastroesophageal reflux disease, unspecified whether [...] obstructive sleep apnea [facility] Diagnosis S/P laparoscopic sleeve gastrectomy History of obstructive sleep apnea [facility] Diagnosis Gastroesophageal reflux disease without esophagitis- Primary Esophageal reflux Seborrheic dermatitis Seborrheic dermatitis, unspecified Tinea pedis, unspecified laterality Morbid obesity Right ear impacted cerumen Impacted cerumen [facility] Diagnosis Obstructive sleep apnea (adult) (pediatric) [G47.33]- Primary Obstructive sleep apnea (adult) (pediatric) S/P laparoscopic sleeve gastrectomy History of obstructive sleep apnea [facility] Diagnosis Obstructive sleep apnea (adult) (pediatric) [G47.33]- Primary Obstructive sleep apnea (adult) (pediatric) [facility] Diagnosis Morbid obesity- Primary Acute right ankle pain Gastroesophageal reflux disease without esophagitis Esophageal reflux Benign hypertension Essential hypertension, benign DEMI (obstructive sleep apnea) Obstructive sleep apnea (adult) (pediatric) [facility] Diagnosis Gastroesophageal reflux disease without esophagitis- Primary Esophageal reflux Morbid obesity Gastroesophageal reflux disease without esophagitis Esophageal reflux Morbid obesity [facility] Diagnosis Encounter for weight loss counseling- Primary Gastroesophageal reflux disease without esophagitis Esophageal reflux Morbid obesity [facility] Diagnosis Onset Date Resolution Status History of gastric bypass ac [place] History of kidney transplant acute Screening for lipid disorders acute Screening for prostate cancer acute [facility] Work Phone: Evaluation note* Diagnosis Preop exam for internal medicine- Primary Other specified pre-operative examination Gastroesophageal reflux disease without esophagitis Esophageal reflux History of surgery Essential hypertension Unspecified essential hypertension PFO (patent foramen ovale) Ostium secundum type atrial septal defect DEMI (obstructive sleep apnea) Obstructive sleep apnea (adult) (pediatric) Allergic rhinitis, unspecified seasonality, unspecified trigger Former smoker Personal history of tobacco use, presenting hazards to health History of hyperparathyroidism Personal history of other endocrine, metabolic, and immunity disorders -donor kidney transplant Kidney replaced by transplant History of radical nephrectomy Depression, unspecified depression type Anxiety disorder, unspecified type Bilateral lower extremity edema Edema H/O gastric sleeve Gastroesophageal reflux disease without esophagitis Esophageal reflux Morbid obesity [facility] Diagnosis Elective surgery- Primary Unspecified elective surgery for purposes other than remedying health states Gastroesophageal reflux disease without esophagitis Esophageal reflux Morbid obesity Preop exam for internal medicine Other specified pre-operative examination Hydronephrosis, unspecified hydronephrosis type Nausea Nausea alone Hyperkalemia Hyperpotassemia Obesity Obesity, unspecified [facility] Diagnosis Urinary retention- Primary Retention of urine, unspecified [facility] Diagnosis Onset Date Resolution Status Anxiety acute Depression acute GERD (gastroesophageal reflux disease) acute History of gastric bypass ac [place] History of kidney transplant acute Hypertension acute DEMI (obstructive sleep apnea) acute Right ankle pain acute Screening for lipid disorders acute Screening for prostate cancer acute Elevated serum creatinine ac [place] History of kidney transplant acute Hospital discharge follow-up acute Low hemoglobin acute [facility] Work Phone: Evaluation note* Diagnosis Encounter for weight loss counseling- Primary [facility] Diagnosis Gastroesophageal reflux disease without esophagitis- Primary Esophageal reflux [facility] Diagnosis Urinary retention- Primary Retention of urine, unspecified Urinary retention Retention of urine, unspecified [facility] Diagnosis Kidney replaced by transplant- Primary Abnormal blood chemistry Other abnormal blood chemistry Aftercare following organ transplant Immunosuppressed status Unspecified disorder of immune mechanism High risk medication use Encounter for long-term (current) use of other medications Hydronephrosis, unspecified hydronephrosis type Hyperkalemia Hyperpotassemia [facility] Diagnosis Urinary retention Retention of urine, unspecified [facility] Diagnosis S/P bypass gastrojejunostomy- Primary Intestinal bypass or anastomosis status Class 1 obesity with serious comorbidity and body mass index (BMI) of 33.0 to 33.9 in adult, unspecified obesity type Post-operative state Other postprocedural status History of obstructive sleep apnea History of morbid obesity [facility] Diagnosis S/P bypass gastrojejunostomy- Primary Intestinal bypass or anastomosis status Class 1 obesity with serious comorbidity and body mass index (BMI) of 33.0 to 33.9 in adult, unspecified obesity type Post-operative state Other postprocedural status History of obstructive sleep apnea History of morbid obesity Encounter for weight loss counseling- Primary [facility]* Attachments The following attachments cannot be sent through Care Everywhere. * Hand Laceration: Stitches (Russian[facility] Attachments The following attachments cannot be sent through Care Everywhere. * [facility] Control [facility] (Russian) [facility] Attachments The following attachments cannot be sent through Care Everywhere. * Bites: Animal (Russian) [facility] Attachments The following attachments cannot be sent through Care Everywhere. * Ankle Sprain (Russian) [facility] Consultation (Routine) - New Request Specialty Diagnoses / Procedures Referred By Shruthi perry Referred To Contact Urology Diagnoses Kidney replaced by transplant Aftercare following organ transplant Suzie Giraldo MD, PhD [address] [place], [place] [address] [address] [place] [address] Referral ID Status Reason Start Date Expiration Date V isits Requested Visits Authorized [id number] New Request 10/26/2021 11/20/2022 1 1 [facility] for referral (narrative)* Consultation (Urgent) - New Request Specialty Diagnoses / Procedures Referred By Shruthi perry Referred To Contact Family Medicine Diagnoses Sprain of right ankle, unspecified ligament, initial encounter Sprain of right foot, initial encounter Ilia Shaffer MD [address] [place] [address] Geovanna Gonzales, TRIM [employer]-SHAKE CUTTER [address] [place] [address] Referral ID Status Reason Start Date Expiration Date V isits Requested Visits Authorized [id number] New Request 03/11/2023 04/04/2024 1 1 [facility] for referral (narrative)* Consultation (Routine) - New Request Specialty Diagnoses / Procedures Referred By Contac t Referred To Contact Podiatry Diagnoses Acute right ankle pain Sprain of right medial ankle joint, initial encounter Geovanna Gonzales APRN-TAMY [address] [place] [address] Javan Diego DPM [address] [place] [address] Referral ID Status Reason Start Date Expiration Date V isits Requested Visits Authorized [id number] New Request 04/16/2023 05/10/2024 1 1 [facility] for referral (narrative)* Consultation (Routine) - New Request Specialty Diagnoses / Procedures Referred By Contac t Referred To Contact PreOp Diagnoses Gastroesophageal reflux disease without esophagitis Griselda Gallegos MD [address] [place] [address] Referral ID Status Reason Start Date Expiration Date V isits Requested Visits Authorized [id number] New Request 02/20/2024 03/16/2025 1 1 [facility] for referral (narrative)* Consultation (Routine) - New Request Specialty Diagnoses / Procedures Referred By Contjulia t Referred To Contact Transplant Surgery Diagnoses Hydronephrosis, unspecified hydronephrosis type Griselda Gallegos MD [address] [place] [address] Referral ID Status Reason Start Date Expiration Date V isits Requested Visits Authorized [id number] New Request 03/27/2024 04/21/2025 1 1 * Consultation (Routine) - New Request Specialty Diagnoses / Procedures Referred By Contac t Referred To Contact Urology Diagnoses Hydronephrosis, unspecified hydronephrosis type Griselda Gallegos MD [address] [place] [address] Referral ID Status Reason Start Date Expiration Date V isits Requested Visits Authorized [id number] New Request 03/27/2024 04/21/2025 1 1 * (Routine) Specialty Diagnoses / Procedures Referred By Contac t Referred To Contact [address] [place] [address] Referral ID Status Reason Start Date Expiration Date Visits Re quested Visits Authorized * Radiology (Routine) - New Request Specialty Diagnoses / Procedures Referred By Contac t Referred To Contact Procedures US RENAL TRANSPLANT SCAN Griselda Gallegos MD [address] [place] [address] Referral ID Status Reason Start Date Expiration Date V isits Requested Visits Authorized [id number] New Request 03/25/2024 04/19/2025 1 1 * Radiology (Routine) - New Request Specialty Diagnoses / Procedures Referred By Contac t Referred To Contact Procedures US RENAL TRANSPLANT SCAN Griselda Gallegos MD [address] [place] [address] Referral ID Status Reason Start Date Expiration Date V isits Requested Visits Authorized [id number] New Request 03/24/2024 04/18/2025 1 1 * Unlisted Procedure Code (Routine) - New Request Specialty Diagnoses / Procedures Referred By Contac t Referred To Contact Procedures PLATELET MONITORING PER PROTOCOL Jyotsna Bahena MD [address] [facility] 2nd [address] [place] [address] Referral ID Status Reason Start Date Expiration Date V isits Requested Visits Authorized [id number] New Request 03/23/2024 04/17/2025 1 1 * Unlisted Procedure Code (Routine) - New Request Specialty Diagnoses / Procedures Referred By Contac t Referred To Contact Procedures DVT/VTE RISK ASSESSMENT Jyotsna Bahena MD [address] [facility] 2[address] [place] [address] Referral ID Status Reason Start Date Expiration Date V isits Requested Visits Authorized [id number] New Request 03/23/2024 04/17/2025 1 1 [facility] Auth/Cert Specialty Diagnoses / Procedures Referred By Contjulia t Referred To Contact Diagnoses Gastroesophageal reflux disease without esophagitis Morbid obesity Gastroesophageal reflux disease without esophagitis [K21.9] Morbid obesity [E66.01] Procedures WY UNLISTED LAPAROSCOPY PROCEDURE STOMACH WY ESOPHAGOGASTRODUODENOSCOPY TRANSORAL DIAGNOSTIC CONVERSION SLEEVE TO MAY-EN-Y GASTRIC BYPASS LAPAROSCOPIC EGD DIAGNOSTIC Griselda Gallegos MD [address] [place] [address] [facility] [address] [place] [address] Referral ID Status Reason Start Date Expiration Date Visits Re quested Visits Authorized [id number] 1 1 [facility] Summary Purpose Family History No Family [...] Advance Directives No August 01, 2018 3:35pm Date Activated Date Inactivated Comments 02/27/2024 8:23 PM Date Activated Date Inactivated Comments 01/23/2022 5:28 AM 01/23/2022 4:46 PM Date Activated Date Inactivated Comments 12/26/2019 9:39 AM 01/23/2022 5:28 AM Date Activated Date Inactivated Comments 08/11/2019 5:40 AM 12/26/2019 9:39 AM Date Activated Date Inactivated Comments 08/10/2019 11:52 AM 08/10/2019 5:13 PM Date Activated Date Inactivated Comments 03/23/2024 8:42 AM Date Activated Date Inactivated Comments 02/27/2024 8:23 PM 03/23/2024 8:42 AM Date Activated Date Inactivated Comments 01/23/2022 5:28 AM 01/23/2022 4:46 PM Date Activated Date Inactivated Comments 12/26/2019 9:39 AM 01/23/2022 5:28 AM Date Activated Date Inactivated Comments 08/11/2019 5:40 AM 12/26/2019 9:39 AM Date Activated Date Inactivated Comments 03/23/2024 8:42 AM Date Activated Date Inactivated Comments 02/27/2024 8:23 PM 03/23/2024 8:42 AM Date Activated Date Inactivated Comments 01/23/2022 5:28 AM 01/23/2022 4:46 PM Date Activated Date Inactivated Comments 12/26/2019 9:39 AM 01/23/2022 5:28 AM Date Activated Date Inactivated Comments 08/11/2019 5:40 AM 12/26/2019 9:39 AM Reason for Referral Status Reason Specialty Diagnoses / Procedures Re ferred By Contact Referred To Contact Auth Not Needed Diagnoses Chronic pain of right knee Osteoarthritis of right knee, unspecified osteoarthritis type Procedures MRI KNEE RIGHT WITHOUT CONTRAST W[place] MRI LOWER EXTREM JT, W/O CONTRAST Ari Ireland MD [address] [place] [address] Status Reason Specialty Diagnoses / Procedures Referred By Contact Referred To Contact New Request Diagnoses Chronic pain of right knee Procedures XR KNEE RIGHT 4+ VIEWS Ari Ireland MD [address] [place] [address] Status Reason Specialty Diagnoses / Procedures Referred By Contact Referred To Contact New Request Diagnoses Chronic pain of right knee Procedures XR BONE LENGTH STUDY Ari Ireland MD [address] [place] [address] Specialty Diagnoses / Procedures Referred By Contac t Referred To Contact Diagnoses Polycystic kidney disease -donor kidney transplant Procedures RENAL TrGeovanna sutton, TRIM [employer]SHAKE CUTTER [address] [place] [address] Referral ID Status Reason Start Date Expiration Date V isits Requested Visits Authorized [id number] Auth Not Needed 10/09/2021 11/03/2022 1 1 Specialty Diagnoses / Procedures Referred By Contac t Referred To Contact Ultrasound Diagnoses Polycystic kidney disease -donor kidney transplant Procedures US RENAL TrGeovanna sutton, TRIM [employer]SHAKE C[employer]TER [address] [place] [address] Jared Buc Ultrasound [address] [place] [address] Referral ID Status Reason Start Date Expiration Date Visits Re quested Visits Authorized [id number] Closed 10/09/2021 11/03/2022 1 1 Specialty Diagnoses / Procedures Referred By Contac t Referred To Contact PreOp Diagnoses Polycystic kidney disease Elena Hu, TRIM [employer]KE [employer]TER [address] [place] [address] Referral ID Status Reason Start Date Expiration Date V isits Requested Visits Authorized [id number] New Request 11/30/2021 12/25/2022 1 1 Specialty Diagnoses / Procedures Referred By Shruthi t Referred To Contact Podiatry / Physical Therapy Diagnoses Right foot pain Sprain of right ankle, unspecified ligament, initial encounter Javan Diego, M [address] [place] [address] [facility] [address] [address] Referral ID Status Reason Start Date Expiration Date Visits Requested Visits Authorized [id number] Authorized - [facility] 04/19/2023 05/13/2024 6 6 Scheduling Instructions . Specialty Diagnoses / Procedures Referred By Shruthi perry Referred To Contact Diagnoses Gastroesophageal reflux disease without esophagitis S/P laparoscopic sleeve gastrectomy Procedures INTERVENTIONAL UPPER ENDOSCOPY WY ESOPHAGOGASTRODUODENOSCOPY TRANSORAL DIAGNOSTIC Liza Penn, TRIM [employer]KE CUTTER [address] [place] [address] Referral ID Status Reason Start Date Expiration Date V isits Requested Visits Authorized [id number] Pending Review 11/05/2022 11/30/2023 1 1 Specialty Diagnoses / Procedures Referred By Shruthi perry Referred To Contact Diagnoses S/P laparoscopic sleeve gastrectomy Vitamin D deficiency Iron deficiency Medication management Procedures ECG Liza Penn, TRIM [employer]KE C[employer]TER [address] [place] [address] Referral ID Status Reason Start Date Expiration Date V isits Requested Visits Authorized [id number] New Request 09/30/2023 10/24/2024 1 1 Specialty Diagnoses / Procedures Referred By Shruthi perry Referred To Contact Diagnoses S/P laparoscopic sleeve gastrectomy History of obstructive sleep apnea Obstructive sleep apnea (adult) (pediatric) Procedures SCHEDULE HOME SLEEP STUDY Liza Penn, TRIM [employer]SHAKE CUTTER [address] [place] [address] Referral ID Status Reason Start Date Expiration Date V isits Requested Visits Authorized [id number] New Request 09/30/2023 10/24/2024 1 1 Specialty Diagnoses / Procedures Referred By Contac t Referred To Contact Diagnoses Obstructive sleep apnea (adult) (pediatric) Procedures CPAP / BPAP SETUP FOR HOME Cait Richardson MD [address] [place] [address] Referral ID Status Reason Start Date Expiration Date V isits Requested Visits Authorized [id number] New Request 12/25/2023 01/18/2025 1 1 Specialty Diagnoses / Procedures Referred By Contac t Referred To Contact Diagnoses Urinary retention Procedures US RENAL TRANSPLANT SCAN Isabell Frank MD [address] [facility] [address] [place] [address] Referral ID Status Reason Start Date Expiration Date V isits Requested Visits Authorized [id number] New Request 04/21/2024 05/16/2025 1 1 History of Present Illness * Ari Ireland MD - 05/15/2018 2:50 PM EST Formatting of this note may be different from the original. Dictation on: 05/15/2018 3:50 PM by: ARI IRELAND [[email or web address]] I have reviewed the findings of the clinical applications support specialist and agree with their assessment. Ari Ireland MD Ortho Nurse Patient Intake Room#: 1 Right knee pain Has had cortisone and just finished up Euflexxa injections with no help, PT years ago Date: 05/15/2018 3:12 PM Patient: Lino Fontenot MR#: [id number] : 1965 Age: 52 y.o. Referring Physician: [...] Location[facility] KIDNEY TRANSPLANT W/O TUNUNAK NEPHRECTOMY N/A 09/25/2016 Laterality: N/A; Surgeon: Jose Shaw MD; Location: [facility] [place] KNEE SCOPE, MENISC TRANSPLANT Right 11/12/2014 right [...] []cane, []bracing Are you followed by a assessment technician? [] [x] Name: Are you followed by [...] 05/15/2018 3:12 PM Patient: Lino Fontenot MR#: [id number] : 1965 Age: 52 y.o. Referring Physician: [...] Location: [facility] KIDNEY TRANSPLANT W/O TUNUNAK NEPHRECTOMY N/A 09/25/2016 Laterality: N/A; Surgeon: Jose Shaw MD; Location: [facility] OR [place] KNEE SCOPE, MENISC TRANSPLANT Right 11/12/2014 right [...] []cane, []bracing Are you followed by a assessment technician? [] [x] Name: Are you followed by [...] for lipid disorders Screening for prostate cancer Chief Complaint Establish [facility] Reason for Visit Anxiety Depression GERD (gastroesophageal reflux disease) History of gastric bypass History of kidney transplant Hypertension DEMI (obstructive sleep apnea) Right ankle pain Screening for lipid disorders Screening for prostate cancer Elevated serum creatinine History of kidney transplant Hospital discharge follow-up Low hemoglobin Additional Source Comments (unrecognized sect ion and content) No Status Records FoundNo Status Records FoundNo Status Records FoundNo Status Records FoundNo Status Records FoundNo Status Records FoundNo Status Records FoundNo Status Records Found INFORMATION SOURCE (unrecogn ized section and content) DATE CREATED AUTHOR 12/24/2017 [facility] DATE CREATED AUTHOR AUTHOR'S ORGANIZ ATION 12/25/2017 [place] [facility] DATE CREATED AUTHOR AUTHOR'S ORGANIZ ATION 07/02/2018 [facility] DATE CREATED AUTHOR AUTHOR'S ORGANIZ ATION 08/19/2018 [facility] DATE CREATED AUTHOR AUTHOR'S ORGANIZ ATION 10/31/2022 [facility] DATE CREATED AUTHOR AUTHOR'S ORGANIZ ATION 01/18/2024 [facility] DATE CREATED AUTHOR AUTHOR'S ORGANIZ ATION 02/22/2024 [facility] DATE CREATED AUTHOR AUTHOR'S ORGANIZ ATION 04/25/2024 [facility] Reason for Visit (unrecogniz ed section and content) Reason Comments New Patient Specialty Diagnoses / Procedures Referred By Shruthi perry Referred To Contact Pulmonary Disease / Sleep Medicine Diagnoses new bariatric Procedures NEW BARIATRIC PATIENT Self, Self Cait Richardson MD [address] [place] [address] Referral ID Status Reason Start Date Expiration Date V isits Requested Visits Authorized [id number] New Request 01/08/2024 02/01/2025 1 1 Reason Comments Pain Reason Comments Medication Refill Status Reason Specialty Diagnoses / Procedures Re ferred By Contact Referred To Contact Closed Diagnoses Chronic pain of right knee Osteoarthritis of right knee, unspecified osteoarthritis type Procedures MRI KNEE RIGHT WITHOUT CONTRAST WY MRI LOWER EXTREM JT, W/O CONTRAST Ari Ireland MD [address] [place] [address] Status Reason Specialty Diagnoses / Procedures Referred By Contact Referred To Contact New Request Diagnoses Chronic pain of right knee Procedures XR BONE LENGTH STUDY Ari Ireland MD [address] [place] [address] Reason Comments Kidney Recipient Follow-up Reason Comments Back Pain Specialty Diagnoses / Procedures Referred By Shruthi t Referred To Contact Ultrasound Diagnoses Polycystic kidney disease -donor kidney transplant Procedures US RENAL Geovanna Gonzales, TRIM SAWYER-SHAKE CUTTER [address] [place] [address] Jared Buc Ultrasound [address] [employer] [facility] [place] [address] Referral ID Status Reason Start Date Expiration Date Visits Re quested Visits Authorized [id number] Closed 10/09/2021 11/03/2022 1 1 Reason Comments Kidney Recipient Follow-up Specialty Diagnoses / Procedures Referred By Shruthi perry Referred To Contact Urology Diagnoses Kidney replaced by transplant Aftercare following organ transplant Suzie Giraldo MD, PhD [address] [place] [address] Referral ID Status Reason Start Date Expiration Date V isits Requested Visits Authorized [id number] New Request 10/26/2021 11/20/2022 1 1 Reason Comments Pre-operative Consultation Specialty Diagnoses / Procedures Referred By Shruthi perry Referred To Contact PreOp Diagnoses Polycystic kidney disease Elena Hu, TRIM [employer]-SHAKE CUTTER [address] [place] [address] Referral ID Status Reason Start Date Expiration Date V isits Requested Visits Authorized [id number] New Request 11/30/2021 12/25/2022 1 1 Reason [...] at that time. Is following up with Geovanna today. Reason Comments Follow-up Here to discuss weig ht loss medication. Had sleeve 2020. Kidney transplant recipient. Does cardio/weight lifting 3x weekly. Tries to follow low CHO meal plan. Gets 60 gm protein daily and drinks > 60 oz fluid daily. Weight has increased 11# since 11/15/22. Reason Comments Foot Pain Fell and injured ins denis of right foot at 1530 today. 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 Reason Comments Ankle Pain Reason Comments New Patient New Pt, Rt ankle amber n. DOI 03/11/23(39 days) Michael Wrap from ED with minimal relief. 4/10 pain at rest, 6/10 pain with WB/Activity. Specialty Diagnoses / Procedures Referred By Shruthi perry Referred To Contact Podiatry Diagnoses Acute right ankle pain Sprain of right medial ankle joint, initial encounter Geovanna Gonzales, TRIM SAWYER-SHAKE CUTTER [address] [place] [address] Javan Diego, [address] [place] [address] Referral ID Status Reason Start Date Expiration Date V isits Requested Visits Authorized [id number] New Request 04/16/2023 05/10/2024 1 1 Reason Comments Skin Exam Specialty Diagnoses / Procedures Referred By Shruthi perry Referred To Contact Diagnoses Gastroesophageal reflux disease without esophagitis S/P laparoscopic sleeve gastrectomy Procedures INTERVENTIONAL UPPER ENDOSCOPY WY ESOPHAGOGASTRODUODENOSCOPY TRANSORAL DIAGNOSTIC Liza Penn, TRIM SAWYER-SHAKE CUTTER [address] [facility] [address] [place] [address] Referral ID Status Reason Start Date Expiration Date V isits Requested Visits Authorized [id number] Pending Review 11/05/2022 11/30/2023 1 1 Reason [...] (adult) (pediatric) Procedures SCHEDULE HOME SLEEP STUDY Liza Penn, TRIM SAWYER-SHAKE CUTTER [address] [place] [address] Referral ID Status Reason Start Date Expiration Date V isits Requested Visits Authorized [id number] New Request 09/30/2023 10/24/2024 1 1 Reason [...] op Pt Name: Lino Fontenot MD: Dr. Gallegos Insurance: An[employer] Medicare Auth#: [id number] Procedure: 48492 (Gj), 84350 (Revision), 26065 (EGD) DOS: 05/08/24 - filler date Inpatient stay Procedures NEW BARIATRIC PATIENT Rodrigo Saravia MD [address] [place] [address] Griselda Gallegos MD [address] [place] [address] Referral ID Status Reason Start Date Expiration Date V isits Requested Visits Authorized [id number] New Request 02/20/2024 03/16/2025 1 1 Reason Comments Follow-up Specialty Diagnoses / Procedures Referred By Shruthi perry Referred To Contact PreOp Diagnoses Gastroesophageal reflux disease without esophagitis Griselda Gallegos MD [address] [place] [address] Referral ID Status Reason Start Date Expiration Date V isits Requested Visits Authorized [id number] New Request 02/20/2024 03/16/2025 1 1 Reason Comments Post Op Visit Here for first post op visit for sleeve to RNY 03/23/24. Denies n/v. No heartburn, no dysphagia. Bowels move daily. Incisions with no redness or swelling. Drinking > 64 oz daily andgetting > 60 gm protein daily.Weight is unchanged since DOS. Will meet with RD for nutrition education. Reason Comments New Patient Hydronephrosis Specialty Diagnoses / Procedures Referred By Shruthi perry Referred To Contact Urology Diagnoses Hydronephrosis, unspecified hydronephrosis type Griselda Gallegos MD [address] [place] [address] Referral ID Status Reason Start Date Expiration Date V isits Requested Visits Authorized [id number] New Request 03/27/2024 04/21/2025 1 1 Specialty Diagnoses / Procedures Referred By Shruthi perry Referred To Contact Diagnoses Urinary retention Procedures US RENAL TRANSPLANT SCAN Isabell Frank MD [address] [facility] [address] [place] [address] Referral ID Status Reason Start Date Expiration Date V isits Requested Visits Authorized [id number] New Request 04/21/2024 05/16/2025 1 1 Reason Comments Follow-up Sleeve to May-En-Y 03/23/2024. Had some N/V 10 days ago, thinks it was eating too much, no problems since. Fluid intake 1 gallon per day, protein intake eats first every meal, 1 shake per day. Bowels working well. Exercise is walking .5-1 mile daily, Weight is down 15 lbs from last visit and DOS. Care Teams (unrecognized sec tion and content) Powerhouse Electrician Relationship Specialty Start Date End Date Transplant, Coordinator [address] [place] [phone] PCP - Blending Operator 08/23/10 Geovanna Gonzales, TRIM SAWYER-SHAKE CUTTER PCP - General Nurse Practitioner - Family 07/16/17 Powerhouse Electrician Relationship Specialty Start Date End Date Transplant, Coordinator [address] [place] [address], [place] [phone] PCP - Blending Operator 08/23/10 Geovanna Gonzaels APRN-SHAKE CUTTER PCP - General Nurse Practitioner - Family 07/16/17 Powerhouse Electrician Relationship Specialty Start Date End Date Transplant, Coordinator [address] [place] [address], [place] [phone] PCP - Blending Operator 08/23/10 Geovanna Gonzales APRN-SHAKE CUTTER PCP - General Nurse Practitioner - Family 07/16/17 Powerhouse Electrician Relationship Specialty Start Date End Date Transplant, Coordinator [address] [place] [address], [place] [phone] PCP - Blending Operator 08/23/10 Geovanna Gonzales APRN-SHAKE CUTTER PCP - General Nurse Practitioner - Family 07/16/17 Powerhouse Electrician Relationship Specialty Start Date End Date Transplant, Coordinator [address] [place] [address], [place] [phone] PCP - Blending Operator 08/23/10 Geovanna Gonzales TRIM SAWYER-SHAKE CUTTER PCP - General Nurse Practitioner - Family 07/16/17 Powerhouse Electrician Relationship Specialty Start Date End Date Transplant, Coordinator [address] [place] [address], [place] [phone] PCP - Blending Operator 08/23/10 Geovanna Gonzales APRN-SHAKE CUTTER PCP - General Nurse Practitioner - Family 07/16/17 Powerhouse Electrician Relationship Specialty Start Date End Date Transplant, Coordinator [address] [place] [phone] PCP - Blending Operator 08/23/10 Geovanna Gonzales APRN-SHAKE CUTTER PCP - General Nurse Practitioner - Family 07/16/17 Powerhouse Electrician Relationship Specialty Start Date End Date Transplant, Coordinator [address] [place] [address], [place] [phone] PCP - Blending Operator 08/23/10 Geovanna Gonzales APRN-SHAKE CUTTER PCP - General Nurse Practitioner - Family 07/16/17 Powerhouse Electrician Relationship Specialty Start Date End Date Transplant, Coordinator [address] [place] [phone] PCP - Blending Operator 08/23/10 Geovanna Gonzales TRIM SAWYER-SHAKE CUTTER PCP - General Nurse Practitioner - Family 07/16/17 Powerhouse Electrician Relationship Specialty Start Date End Date Transplant, Coordinator [address] [place] [phone] PCP - Blending Operator 08/23/10 Geovanna Gonzales TRIM SAWYER-SHAKE CUTTER PCP - General Nurse Practitioner - Family 07/16/17 Powerhouse Electrician Relationship Specialty Start Date End Date Geovanna Gonzales CNP [address] [place] [address] PCP - General Nurse Practitioner 04/20/22 Powerhouse Electrician Relationship Specialty Start Date End Date Geovanna Gonzales CNP [address] [place] [address] PCP - General Nurse Practitioner 04/20/22 Powerhouse Electrician Relationship Specialty Start Date End Date Geovanna Gonzales CNP [address] [place] [facility] [place] [address] PCP - General Nurse Practitioner 04/20/22 Powerhouse Electrician Relationship Specialty Start Date End Date Transplant, Coordinator [address] [place] [address], [place] [phone] PCP - Blending Operator 08/23/10 Geovanna Gonzales APRN-SHAKE CUTTER PCP - General Nurse Practitioner - Family 07/16/17 Powerhouse Electrician Relationship Specialty Start Date End Date Geovanna Gonzales CNP [address] [place] [facility] [place] [address] PCP - General Nurse Practitioner 04/20/22 Powerhouse Electrician Relationship Specialty Start Date End Date Transplant, Coordinator [address] [place] [address], [place] [address] PCP - Blending Operator 08/23/10 Geovanna Gonzales APRN-SHAKE CUTTER PCP - General Nurse Practitioner - Family 07/16/17 Powerhouse Electrician Relationship Specialty Start Date End Date Transplant, Coordinator [address] [place] [phone] PCP - Blending Operator 08/23/10 Geovanna Gonzales APRN-SHAKE CUTTER [address] [place] [phone] PCP - General Nurse Practitioner - Family 07/16/17 Powerhouse Electrician Relationship Specialty Start Date End Date Transplant, Coordinator [address] [place] [phone] PCP - Blending Operator 08/23/10 Geovanna Gonzales APRN-SHAKE CUTTER [address] [place] [address], [place] [phone] PCP - General Nurse Practitioner - Family 07/16/17 Powerhouse Electrician Relationship Specialty Start Date End Date Transplant, Coordinator [address] [place] [address], [place] [phone] PCP - Blending Operator 08/23/10 Geovanna Gonzales APRN-SHAKE CUTTER [address] [place] [address], [place] [address] PCP - General Nurse Practitioner - Family 07/16/17 Powerhouse Electrician Relationship Specialty Start Date End Date Transplant, Coordinator [address] [place] [address], [place] [phone] PCP - Blending Operator 08/23/10 Geovanna Gonzales APRN-SHAKE CUTTER [address] [place] [address], [place] [phone] PCP - General Nurse Practitioner - Family 07/16/17 Powerhouse Electrician Relationship Specialty Start Date End Date Transplant, Coordinator [address] [place] [address], [place] [phone] PCP - Blending Operator 08/23/10 Geovanna Gonzales APRN-SHAKE CUTTER [address] [place] [address], [place] [phone] PCP - General Nurse Practitioner - Family 07/16/17 Powerhouse Electrician Relationship Specialty Start Date End Date Transplant, Coordinator [address] [place] [address], [place] [phone] PCP - Blending Operator 08/23/10 Geovanna Gonzales APRN-SHAKE CUTTER [address] [place] [address], [place] [address] PCP - General Nurse Practitioner - Family 07/16/17 Powerhouse Electrician Relationship Specialty Start Date End Date Transplant, Coordinator [address] [place] [address], [place] [phone] PCP - Blending Operator 08/23/10 Geovanna Gonzales APRN-SHAKE CUTTER [address] [place] [address], [place] [address] PCP - General Nurse Practitioner - Family 07/16/17 Powerhouse Electrician Relationship Specialty Start Date End Date Transplant, Coordinator [address] [place] [address], [place] [address] PCP - Blending Operator 08/23/10 Geovanna Gonzales APRN-SHAKE CUTTER [address] [place] [phone] PCP - General Nurse Practitioner - Family 07/16/17 Powerhouse Electrician Relationship Specialty Start Date End Date Transplant, Coordinator [address] [place] [address], [place] [phone] PCP - Blending Operator 08/23/10 Geovanna Gonzales APRN-SHAKE CUTTER [address] [place] [phone] PCP - General Nurse Practitioner - Family 07/16/17 Powerhouse Electrician Relationship Specialty Start Date End Date Transplant, Coordinator [address] [place] [address], [place] [address] PCP - Blending Operator 08/23/10 Geovanna Gonzales APRN-SHAKE CUTTER [address] [place] [phone] PCP - General Nurse Practitioner - Family 07/16/17 11/19/23 Powerhouse Electrician Relationship Specialty Start Date End Date Transplant, Coordinator [address] [place] [phone] PCP - Blending Operator 08/23/10 Powerhouse Electrician Relationship Specialty Start Date End Date Transplant, Coordinator [address] [place] [address], [place] [phone] PCP - Blending Operator 08/23/10 Geovanna Gonzales, TRIM SAWYER-SHAKE CUTTER [address] [place] [phone] PCP - General Nurse Practitioner - Family 07/16/17 11/19/23 Rodrigo Saravia MD [address] [place] [address] PCP - General Family Medicine 12/04/23 Powerhouse Electrician Relationship Specialty Start Date End Date Transplant, Coordinator [address] [place] [address], [place] [address] PCP - Blending Operator 08/23/10 Rodrigo Saravia MD [address] [place] [address] PCP - General Family Medicine 12/04/23 Powerhouse Electrician Relationship Specialty Start Date End Date Transplant, Coordinator [address] [place] [phone] PCP - Blending Operator 08/23/10 Rodrigo Saravia MD [address] [place] [address] PCP - General Family Medicine 12/04/23 Powerhouse Electrician Relationship Specialty Start Date End Date Transplant, Coordinator [address] [place] [phone] PCP - Blending Operator 08/23/10 Rodrigo Saravia MD [address] [place] [address] PCP - General Family Medicine 12/04/23 Powerhouse Electrician Relationship Specialty Start Date End Date Transplant, Coordinator [address] [place] [phone] PCP - Blending Operator 08/23/10 Rodrigo Saravia MD [address] [place] [address] PCP - General Family Medicine 12/04/23 Team Status: Active Member Role Status Dates Cayla Velazquez APRN MUD TEMPERER-C Primary Care Provider Active Team Status: Inactive Member Role Status Dates Cayla Velazquez APRN MUD TEMPERER-C Primary Care Provider, Attending Provider Active Start: February 24, 2024 End: February 24, 2024 Powerhouse Electrician Relationship Specialty Start Date End Date Transplant, Coordinator [address] [place] [phone] PCP - Blending Operator 08/23/10 Cayla Velazquez CNP [address] [place] [phone] PCP - General Certified Nurse Practitioner 02/25/24 Roberto Carlos Davey MD [address] [place] [address] Consulting Physician Nephrology 02/25/24 Powerhouse Electrician Relationship Specialty Start Date End Date Transplant, Coordinator [address] [place] [phone] PCP - Blending Operator 08/23/10 Cayla Velazquez CNP [address] [place] [phone] PCP - General Certified Nurse Practitioner 02/25/24 Roberto Carlos Davey MD [address] [place] [address] Consulting Physician Nephrology 02/25/24 Powerhouse Electrician Relationship Specialty Start Date End Date Transplant, Coordinator [address] [place] [phone] PCP - Blending Operator 08/23/10 Cayla Velazquez CNP [address] [place] [phone] PCP - General Certified Nurse Practitioner 02/25/24 Roberto Carlos Davey MD [address] [place] [address] Consulting Physician Nephrology 02/25/24 Team Status: Active Member Role Status Dates Cayla Velazquez APRN MUD TEMPERER-C Primary Care Provider, Attending Provider Active Start: February 27, 2024 Team Status: Inactive Member Role Status Dates Cayla Velazquez APRN MUD TEMPERER-C Primary Care Provider, Attending Provider Active Start: April 07, 2024 End: April 07, 2024 Powerhouse Electrician Relationship Specialty Start Date End Date Transplant, Coordinator [address] [place] [phone] PCP - Blending Operator 08/23/10 Cayla Velazquez CNP [address] [place] [address] PCP - General Certified Nurse Practitioner 02/25/24 Roberto Carlos Davey MD [address] [place] [address] Consulting Physician Nephrology 02/25/24 Powerhouse Electrician Relationship Specialty Start Date End Date Transplant, Coordinator [address] [place] [phone] PCP - Blending Operator 08/23/10 Cayla Velazquez CNP [address] [place] [address] (Fax) PCP - General Certified Nurse Practitioner 02/25/24 Roberto Carlos Davey MD [address] [place] [address] Consulting Physician Nephrology 02/25/24 Powerhouse Electrician Relationship Specialty Start Date End Date Transplant, Coordinator [address] [place] [phone] PCP - Blending Operator 08/23/10 Cayla Velazquez CNP [address] [place] [phone] (Fax) PCP - General Certified Nurse Practitioner 02/25/24 Roberto Carlos Davey MD [address] [place] [address] Consulting Physician Nephrology 02/25/24 Powerhouse Electrician Relationship Specialty Start Date End Date Transplant, Coordinator [address] [place] [phone] PCP - Blending Operator 08/23/10 Cayla Velazquez CNP [address] [place] [address] (Fax) PCP - General Certified Nurse Practitioner 02/25/24 Roberto Carlos Davey MD [address] [place] [address] Consulting Physician Nephrology 02/25/24 Powerhouse Electrician Relationship Specialty Start Date End Date Transplant, Coordinator [address] [place] [phone] PCP - Blending Operator 08/23/10 Cayla Velazquez CNP [address] [place] [address] PCP - General Certified Nurse Practitioner 02/25/24 Roberto Carlos Davey MD [address] [place] [address] Consulting Physician Nephrology 02/25/24 Powerhouse Electrician Relationship Specialty Start Date End Date Transplant, Coordinator [address] [place] [phone] PCP - Blending Operator 08/23/10 Cayla Velazquez CNP [address] [place] [phone] PCP - General Certified Nurse Practitioner 02/25/24 Roberto Carlos Davey MD [address] [place] [address] Consulting Physician Nephrology 02/25/24 Scheduled Active and Recently Administ ered Medications (unrecognized section and content) Medication Order 04/19/2022 04/20/2022 04/21/2022 proparacaine (ALCAINE) 0.5 % ophthalmic solution 2 drop (COMPLETED) 2 drop, Right Eye, ONCE, 1 dose, On 04/21/22 at 1130 1115 (Given - Provid er: Andrew Guan RN - Comment: per Dr. Archuleta for bedside procedure) Scheduled Medication Order 10/22/2022 10/23/2022 10/24/2022 kcnnmzxp-ynnvglznbm-useuiipir (NEOSPORIN) 400-5-5000 ointment 1 Application. (COMPLETED) 1 Application., Topical, ONCE, 1 dose, On Sat10/24/22 at 0800 0749 (Given - Provid er: Amairani Au RN - Comment: was applied and rest sent home with patient) Scheduled Medication Order 03/09/2023 03/10/2023 03/11/2023 Acetaminophen (TYLENOL) tablet 650 mg (COMPLETED) 650 mg, Oral, ONCE, 1 dose, On Sat03/11/23 at 0000 2348 (Given - Provider: Patience Hurtado, TABATHA) Scheduled Medication Order 03/26/2024 03/27/2024 03/28/2024 Acetaminophen (TYLENOL) tablet 650 mg 650 mg, Oral, EVERY 6 HOURS NON-STANDARD, First dose on Sat03/23/24 at 1530, Until Discontinued, Administer if tolerating PO. Do not exceed 4000 mg in 24 hours., Post-op/Post-Proc 0531 (Given - Provider: Sarah Mireles RN)0849 (Given - Provider: Aline Israel RN)1628 (Given - Provider: Aline Israel RN)2013 (Given - Provider: Sarah Mireles RN) 0145 (Not Given - Provider: Sarah Mireles RN - Reason: Patient sleeping)0808 (Given - Provider: Gamal Chino RN)1509 (Given - Provider: Gamal Chino RN)2038 (Given - Provider: Kg Blackburn, TABATHA) 0334 (Not Given - Provider: Frederick Campos RN - Reason: Patient sleeping)0909 (Given - Provider: Kg Blackburn, TABATHA) aspirin chewable tablet 81 mg 81 mg, Oral, DAILY EVERY MORNING, First dose on Sat03/24/24 at 0900, Until Discontinued, Give two hours after am carafate slurry please 0844 (Given - Provider: Aline Israel RN) 0808 (Given - Provider: Gamal Chino RN) 0908 (Given - Provider: Kg Blackburn, TABATHA) carBAMazepine (TEGRETOL) chewable tablet 200 mg 200 mg, Oral, DAILY EVERY MORNING, First dose (after last modification) on Sat03/24/24 at 0900, Until Discontinued 0844 (Given - Provider: Aline Israel RN) 08 (Given - Provider: Gamal Chino RN) 09 (Given - Provider: Kg Blackburn, TABATHA) carBAMazepine (TEGRETOL) chewable tablet 300 mg 300 mg, Oral, Nightly, First dose on Sat03/23/24 at 2100, Until Discontinued 2014 (Given - Provider: Sarah Mireles RN) 2040 (Given - Provider: Kg Blackburn RN) Cetirizine (ZyrTEC) tablet 10 mg 10 mg, Oral, DAILY, First dose on Sat03/24/24 at 1400, Until Discontinued 842 (Given - Provider: Aline Israel RN) 08 (Given - Provider: Gamal Chino RN) 907 (Given - Provider: Kg Blackburn RN) Enoxaparin Sodium (LOVENOX) injection 40 mg (CANCELED) 40 mg, Subcutaneous, EVERY 24 HOURS, First dose on Sat03/24/24 at 0900, Until Discontinued, For SUBCUTANEOUS route ONLY: alternate injection sites between left and right abdominal wall, pinching location and avoiding area around navel. If unable to use abdominal sites, may use the front or side of thighs., Indications: DVT/PE prophylaxis, Post-op/Post-Proc, On hold since [facility] 03/26/2024 at 0922 until manually unheld 0841 (Given - Provider: Aline Israel RN)09 (Held by provider - Provider: Jamel Uriarte MD - Reason: Other) 0900 (Automatically Held - Provider: Jamel Uriarte MD)1451 (Unheld by provider - Provider: Jamel Uriarte MD) Enoxaparin Sodium (LOVENOX) injection 40 mg 40 mg, Subcutaneous, EVERY 24 HOURS, First dose (after last modification) on Sat03/28/24 at 0900, Until Discontinued, For SUBCUTANEOUS route ONLY: alternate injection sites between left and right abdominal wall, pinching location and avoiding area around navel. If unable to use abdominal sites, may use the front or side of thighs., Indications: DVT/PE prophylaxis (Not Given - Provider: Kg Blackburn RN - Reason: Patient/family refused) Escitalopram (LEXAPRO) tablet 20 mg 20 mg, Oral, DAILY EVERY MORNING, First dose on Sat03/24/24 at 0900, Until Discontinued 0847 (Given - Provider: Aline Israel RN) 08 (Given - Provider: Gamal Chino RN) 09 (Given - Provider: Kg Blackburn RN) Iohexol (OMNIPAQUE) 300 MG/ML vial 50 mL (COMPLETED) 50 mL, Intravenous, ONCE, 1 dose, On Sat03/27/24 at 1400, Extravasation Risk, Intra-op/Intra-Proc 1400 (Due)1436 (Given - Provider: Netta Titus MD) Montelukast (SINGULAIR) tablet 10 mg 10 mg, Oral, DAILY, First dose on Sat03/24/24 at 1400, Until Discontinued 08 (Given - Provider: Aline Israel RN) 08 (Given - Provider: Gamal Chino RN) 906 (Given - Provider: Kg Blackburn RN) Mycophenolate oral suspension 750 mg 750 mg, Oral, 2 TIMES DAILY (Solid Organ Transplant), First dose on Sat03/23/24 at 2000, Until Discontinued, May be administered via a nasogastric tube (minimum 8 Cymraes, 1.7 mm interior diameter); oral suspension should not be mixed with other medications. Storage Change-Refrigeration no longer required 0848 (Given - Provider: Aline Israel RN)2013 (Given - Provider: Sarah Mireles RN) 810 (Given - Provider: Gamal Chino RN)2038 (Given - Provider: Kg Blackburn, TABATHA) 904 (Given - Provider: Kg Blackburn, TABATHA) OLANZapine (zyPREXA) tablet 2.5 mg 2.5 mg, Oral, DAILY AT BEDTIME, First dose on Sat03/23/24 at 2100, Until Discontinued 2013 (Given - Provider: Sarah Mireles RN) 2040 (Given - Provider: Kg Blackburn, TABATHA) Ondansetron (ZOFRAN) tablet 4 mg(Linked Group 1) 4 mg, Oral, EVERY 6 HOURS NON-STANDARD, First dose on Sat03/23/24 at 1930, Until Discontinued, Post-op/Post-Proc 0314 (Not Given - Provider: Sarah Mireles RN - Reason: Patient sleeping)0531 (Given - Provider: Sarah Mireles RN)1209 (Given - Provider: Aline Israel RN)2013 (Given - Provider: Sarah Mireles RN) 004 (Given - Provider: Sarah Mireles RN)0808 (Given - Provider: Gamal Chino RN)1509 (Given - Provider: Gamal Chino RN)2038 (Given - Provider: Kg Blackburn, ATBATHA) 0103 (Given - Provider: Frederick Campos RN)0908 (Given - Provider: Kg Blackburn RN)1330 (Canceled Entry - Provider: System Discharge - Comment: Automatically canceled at discontinue of medication order) Ondansetron 4mg/2ml (ZOFRAN) injection 4 mg(Linked Group 1) 4 mg, Intravenous, EVERY 6 HOURS NON-STANDARD, First dose on Sat03/23/24 at 1930, Until Discontinued, If unable to take oral ondansetron., Post-op/Post-Proc 0314 (See Alternative - Provider: Sarah Mireles RN)0531 (See Alternative - Provider: Sarah Mireles RN)1209 (See Alternative - Provider: Aline Israel RN)2013 (See Alternative - Provider: Sarah Mireles RN) 004 (See Alternative - Provider: Sarah Mireles RN)0808 (See Alternative - Provider: Gamal Chino RN)150 (See Alternative - Provider: Gamal Chino RN)2038 (See Alternative - Provider: Kg Blackburn RN) 0103 (See Alternative - Provider: Frederick Campos, TABATHA)0908 (See Alternative - Provider: Kg Blackburn, TABATHA)1330 (Canceled Entry - Provider: System Discharge - Comment: Automatically canceled at discontinue of medication order) Pantoprazole (PROTONIX) tablet DR 40 mg 40 mg, Oral, 2 TIMES DAILY, First dose (after last modification) on Sat03/24/24 at 0900, Until Discontinued, Taken whole., Indications: Inpt Stress Ulcer Prophylaxis, Post-op/Post-Proc 0843 (Given - Provider: Aline Israel RN)1628 (Given - Provider: Aline Israel RN) 0808 (Given - Provider: Gamal Chino, TABATHA)1644 (Given - Provider: Maxwell Lopez, TABATHA) 0908 (Given - Provider: Kg Blackburn RN) Polyethylene glycol (MIRALAX) packet 17 g 17 g, Oral, DAILY, First dose on Sat03/24/24 at 0900, Until Discontinued, Post-op/Post-Proc 0836 (Given - Provider: Aline Israel RN) 0819 (Not Given - Provider: Gamal Chino RN - Reason: Other - Comment: NPO for IR) 09 (Given - Provider: Kg Blackburn RN) rOPINIRole (REQUIP) tablet 0.5 mg 0.5 mg, Oral, DAILY AT BEDTIME, First dose on Sat03/23/24 at 2100, Until Discontinued, Max 24 mg/day 2014 (Given - Provider: Sarah Mireles RN) 2037 (Given - Provider: Kg Blackburn RN) Sucralfate (CARAFATE) tablet 1 g 1 g, Oral, 2 TIMES DAILY BEFORE MEALS, First dose on Sat03/23/24 at 1600, Until Discontinued, Avoid administration of other oral medications within 2 hours of sucralfate. Put pill into a tablespoon of water to create a slurry. 0843 (Given - Provider: Aline Israel RN)1629 (Given - Provider: Aline Israle RN) 0808 (Given - Provider: Gamal Chino RN)1644 (Given - Provider: Maxwell Lopez, TABATHA) 0907 (Given - Provider: Kg Blackburn RN) Tacrolimus (PROGRAF) capsule 4 mg 4 mg, Oral, EVERY 12 HOURS, First dose (after last modification) on Sat03/27/24 at 2100, Until Discontinued, Do not split, break, crush, or open doses of this medication. Contact pharmacy if altered dose or route needed. Do not split, break, crush, or open doses of this medication. Contact pharmacy if altered dose or route needed. 2039 (Given - Provider: Kg Blackburn RN) 904 (Given - Provider: Kg Blackburn RN) Tacrolimus (PROGRAF) capsule 5 mg (CANCELED) 5 mg, Oral, EVERY 12 HOURS, First dose on Sat03/25/24 at 2100, Until Discontinued, Do not split, break, crush, or open doses of this medication. Contact pharmacy if altered dose or route needed. Do not split, break, crush, or open doses of this medication. Contact pharmacy if altered dose or route needed. 0845 (Given - Provider: Aline Israel RN)2013 (Given - Provider: Sarah Mireles RN) 0811 (Given - Provider: Gamal Chino RN) Continuous Medication Order 03/26/2024 03/27/2024 03/28/2024 Lactated ringers IV solution () Intravenous, at 50 mL/hr, CONTINUOUS, Starting on Sat03/23/24 at 1500, Until Sat03/27/24 at 0000, Post-op/Post-Proc 0157 (Rate/Dose Verify - Provider: Sarah Mireles RN)0533 ($$New Bag$$ - Provider: Sarah Mireles RN)0833 (Rate/Dose Verify - Provider: Aline Israel RN)1207 (Rate/Dose Verify - Provider: Aline Israel RN)1208 (Rate/Dose Verify - Provider: Aline Israel RN)1625 (Rate/Dose Verify - Provider: Aline Israel RN)2200 (Rate/Dose Verify - Provider: Sarah Mireles RN) 0037 (Restarted - Provider: Sarah Mireles RN)0038 (Stopped - Provider: Sarah Mireles RN)0042 (Stopped - Provider: Sarah Mireles RN) Lactated ringers IV solution Intravenous, at 125 mL/hr, CONTINUOUS, Starting on Sat03/27/24 at 0000, Until Sat03/28/24 at 1526 0038 ($$New Bag$$ - Provider: Sarah Mireles RN)0442 (Rate/Dose Verify - Provider: Sarah Mireles RN)0541 (Stopped - Provider: Sarah Mireles RN)0549 (Restarted - Provider: Gamal Chino RN)0819 ($$New Bag$$ - Provider: Gamal Chino RN)0859 (Paused - Provider: Gamal Chino, RN)0905 (Restarted - Provider: Gamal Chino RN)1052 (Stopped - Provider: Gamal Chino, TABATHA)1053 (Stopped - Provider: Gamal Chino, TABATHA) PRN Medication Order 03/26/2024 03/27/2024 03/28/2024 Ampicillin-Sulbactam Sodium (UNASYN) 3 g in sodium chloride 0.9% (MB PLUS) 100 mL (total volume) IVPB (COMPLETED) 3 g, Intravenous, Administer over 30 Minutes, WOODS RIDER TO PROCEDURE, 1 dose, Starting on Sat03/27/24 at 1017, Until Sat03/27/24 at 1501, Surgical Prophylaxis, Initiate antibiotic administration 30-60 minutes prior to surgical incision and complete administration prior to surgical incision., Pre-op/Pre-Proc 1240 ($$New Bag$$ - Provider : Bee Mccurdy RN)1501 (Stopped - Provider: Gamal Chino RN) Cyclobenzaprine (FLEXERIL) tablet 5 mg 5 mg, Oral, 3 TIMES DAILY NEEDED, Starting on 03/23/24 at 1459, Until 03/28/24 at 1527, Mild Pain, Post-op/Post-Proc fentaNYL (SUBLIMAZE) injection 300 mcg () 300 mcg, Intravenous, Administer over 2 Minutes, ADMINISTER DIRECTED, Starting on Sat03/27/24 at 1353, Until Sat03/27/24 at 1552, intraoperative pain management, Administration during procedure as directed by physician. Recorded MAR dose is cumulative amount given during procedure., Intra-op/Intra-Proc 1354 (Given - Provider: Ruperto Hsu RN)1416 (Given - Provider: Maxwell Hsu RN)1426 (Given - Provider: Maxwell Hsu, TABATHA) Haloperidol (HALDOL) tablet 0.5 mg 0.5 mg, Oral, EVERY 6 HOURS NEEDED, Starting on Sat03/23/24 at 1459, Until 03/28/24 at 1526, nausea/vomiting 2nd line, Post-op/Post-Proc Lidocaine 2 % injection (COMPLETED) ONCE NEEDED, 1 dose, Starting on Sat03/27/24 at 1437, Until Sat03/27/24 at 1437, Intra-op/Intra-Proc 1437 (Given - Provider: Netta Titus MD) midazolam (VERSED) injection 10 mg () 10 mg, Intravenous, ADMINISTER DIRECTED, Starting on Sat03/27/24 at 1353, Until Sat03/27/24 at 1752, Procedural sedation, Administer during procedure as directed by physician. Recorded MAR dose is cumulative amount given during procedure., Intra-op/Intra-Proc 1354 (Given - Provider: Ruperto Hsu, TABATHA)1416 (Given - Provider: Maxwell Hsu, RN)1426 (Given - Provider: Maxwell Hsu RN) oxyCODONE (ROXICODONE) tablet 5 mg 5 mg, Oral, EVERY 6 HOURS NEEDED, Starting on Sat03/25/24 at 1105, Until 03/28/24 at 1526, Moderate Pain, Severe Pain, Post-op/Post-Proc Prochlorperazine (COMPAZINE) injection 5 mg(Linked Group 2) 5 mg, Intravenous, EVERY 6 HOURS NEEDED, Starting on Sat03/23/24 at 1459, Until 03/28/24 at 1526, Nausea / Vomiting, moderate nausea and vomiting, 1st line (if NOT tolerating PO), For IV route: dilute dose with 10mL normal saline and give by slow IV push at a rate of 5mg/min. Maximum of 40mg/day., Post-op/Post-Proc Prochlorperazine (COMPAZINE) tablet 5 mg(Linked Group 2) 5 mg, Oral, EVERY 6 HOURS NEEDED, Starting on Sat03/23/24 at 1459, Until 03/28/24 at 1526, Nausea / Vomiting, Refractory Nausea Vomiting, 1st line (if tolerating PO), Post-op/Post-Proc Sodium chloride 0.9% IV solution 250 mL Intravenous, at 20 mL/hr, NEEDED, Starting on Sat03/23/24 at 1459, Until 03/28/24 at 1527, Carrier Fluid - See Admin. Inst, 250mL 0.9NS to be used as carrier fluid for intermittent small volume or piggyback medication administration as needed. Infusion rate of the carrier fluid should be set at 20 mL/hr unless the rate as the intermittent medication is less than 20 mL/hr. For intermittent medications with a rate less than 20 mL/hr set the carrier fluid at that rate of the intermittent or piggy back medication., Post-op/Post-Proc Linked Groups Order Group 1: Ondansetron (ZOFRAN) tablet 4 mgJump to med 4 mg, Oral, EVERY 6 HOURS NON-STANDARD, First dose on Sat03/23/24 at 1930, Until Discontinued, Post-op/Post-Proc Or Ondansetron 4mg/2ml (ZOFRAN) injection 4 mgJump to med 4 mg, Intravenous, EVERY 6 HOURS NON-STANDARD, First dose on Sat03/23/24 at 1930, Until Discontinued, If unable to take oral ondansetron., Post-op/Post-Proc Group 2: Prochlorperazine (COMPAZINE) injection 5 mgJump to med 5 mg, Intravenous, EVERY 6 HOURS NEEDED, Starting on Sat03/23/24 at 1459, Until 03/28/24 at 1526, Nausea / Vomiting, moderate nausea and vomiting, 1st line (if NOT tolerating PO), For IV route: dilute dose with 10mL normal saline and give by slow IV push at a rate of 5mg/min. Maximum of 40mg/day., Post-op/Post-Proc Or Prochlorperazine (COMPAZINE) tablet 5 mgJump to med 5 mg, Oral, EVERY 6 HOURS NEEDED, Starting on Sat03/23/24 at 1459, Until 03/28/24 at 1526, Nausea / Vomiting, Refractory Nausea Vomiting, 1st line (if tolerating PO), Post-op/Post-Proc Goals (unrecognized section and content) Goals may be documented in a n alternate sectionGoals may be documented in an alternate section FOR RECORDS PERTAINING TO PATIENTS [...] BE BASED ON THE PRIMARY CLINICAL RECORDS. [employer] provides no warranty or guarantee of the accuracy or completeness of information in this document.
== END 2024-05-06 09:04 | disposition home or self-care (01) ==
LOC: MRI 09:04
PROVIDERS: PCP Nurse Practitioner Family; Visit Provider Podiatrist Foot & Ankle Surgery
DX: S86.311A Strain of muscle(s) and tendon(s) of peroneal muscle group at lower leg level, right leg, initial encounter (principal); M76.61 Achilles tendinitis, right leg; M25.571 Pain in right ankle and joints of right foot
CPT/HCPCS: 73721

== ENCOUNTER 2024-05-26 08:57 | Outpatient (OUT) | payer MEDICARE, SELFPAY ==
[2024-05-26 10:11] LABS: Anion Gap 17.8; BUN Creatinine Ratio 10.9; Calcium 8.9 mg/dL (8.5-10.1); Carbon Dioxide 21.1 mmol/L (21.0-32.0); Chloride 108 mmol/L (98-107); Estimated GFR (African America 34 (>=60 mL/min/1.73m^2); Estimated GFR (Non-African Ame 28 (>=60 mL/min/1.73m^2); Glucose 92 mg/dL (74-106); Potassium 4.9 mmol/L (3.5-5.1); Sodium 142 mmol/L (136-145)
== END 2024-05-26 08:58 | disposition home or self-care (01) ==
LOC: LAB 09:00
PROVIDERS: PCP Nurse Practitioner Family
DX: R79.9 Abnormal finding of blood chemistry, unspecified (principal); Z94.0 Kidney transplant status; Z48.298 Encounter for aftercare following other organ transplant; D64.9 Anemia, unspecified; Z79.60 Long term (current) use of unspecified immunomodulators and immunosuppressants; Z79.899 Other long term (current) drug therapy; R68.89 Other general symptoms and signs
CPT/HCPCS: 36415; 80048

== ENCOUNTER 2024-09-04 08:32 | Outpatient (OUT) | payer MEDICARE, SELFPAY ==
[2024-09-04 09:02] LABS: Basophils Percent Auto 0.7 % (0.2-2.0); Eosinophils Absolute Auto 0.1 10^3/uL (0.0-0.7); Eosinophils Percent Auto 2.3 % (0.9-7.0); Hematocrit 30.8 % (42.0-54.0); Hemoglobin 9.9 g/dL (14.0-18.0); Lymphocytes Percent Auto 22.9 % (20.5-60.0); Mean Corpuscular HGB Conc 32.1 g/dL (29.9-35.2); Mean Corpuscular Hemoglobin 29.6 pg (25.9-34.0); Mean Corpuscular Volume 92.2 fL (80.0-94.0); Mean Platelet Volume 10.9 fL (9.5-13.5); Monocytes Absolute Auto 0.3 10^3/uL (0.3-0.8); Neutrophils Percent Auto 68.1 % (43.0-75.0); Platelet Count 161 10^3/uL (150-450); Red Blood Count 3.34 10^6/uL (4.70-6.10); White Blood Count 4.3 10^3/uL (4.0-11.0)
[2024-09-04 09:55] LABS: Percent Iron Saturation 28.3 %
[2024-09-04 09:58] LABS: Alanine Aminotransferase 16 U/L (16-63); Albumin Globulin Ratio 1.4; Albumin Level 3.8 g/dL (3.4-5.0); Alkaline Phosphatase 75 U/L (46-116); Anion Gap 11.1; Aspartate Amino Transferase 16 U/L (15-37); BUN Creatinine Ratio 10.2; Bilirubin Total 0.3 mg/dL (0.2-1.0); Calcium 9.1 mg/dL (8.5-10.1); Carbon Dioxide 26.8 mmol/L (21.0-32.0); Chloride 104 mmol/L (98-107); Estimated GFR (African America 45 (>=60 mL/min/1.73m^2); Estimated GFR (Non-African Ame 37 (>=60 mL/min/1.73m^2); Globulin 2.7 g/dL; Glucose 94 mg/dL (74-106); Potassium 4.9 mmol/L (3.5-5.1); Sodium 137 mmol/L (136-145); Total Protein 6.5 g/dL (6.4-8.2)
[2024-09-05 05:10] LABS: Vitamin B12 551 pg/mL (232-1245)
[2024-09-05 06:10] LABS: Transferrin 198 mg/dL (177-329)
[2024-09-06 11:07] LABS: PTH, Intact 45 pg/mL (15-65)
[2024-09-12 23:07] LABS: Vitamin A, Serum 74.6 ug/dL (20.1-62.0)
== END 2024-09-04 08:33 | disposition home or self-care (01) ==
LOC: LAB 08:34
PROVIDERS: PCP Nurse Practitioner Family
DX: N18.31 Chronic kidney disease, stage 3a (principal); Z98.0 Intestinal bypass and anastomosis status; Z94.0 Kidney transplant status; Z91.89 Other specified personal risk factors, not elsewhere classified; E55.9 Vitamin D deficiency, unspecified; E61.1 Iron deficiency; Z79.899 Other long term (current) drug therapy; R79.89 Other specified abnormal findings of blood chemistry
CPT/HCPCS: 36415; 80053; 82306; 82607; 82728; 82746; 83540; 83550; 83970; 84425; 84466; 84590; 85025

== ENCOUNTER 2025-02-25 09:47 | Outpatient (OUT) | payer MEDICARE, SELFPAY ==
--- OUTSIDE RECORDS SUMMARY | 2025-02-25 09:56 | XMS_ITS | Encounter Summary ---
[facility] Address [address] [place] [address] Care Team Providers Care Inspector Tester Sorter Name Role Phone Transplant, Coordinator Unavailable Unavaila Rodrigo Nash MD Primary Care Provider [phone] Cayla Velazquez CNP Primary Care Provider + Roberto Carlos Davey MD Unavailable [phone] Reason for Visit * Reason Comments Other Encounter Details Date Type Department Care Team (Late st Contact Info) Description 12/06/2023 External Facility Telemed Consult [facility] [address], [place] [id number] Rodrigo Saravia MD [address] [place] [address] Social History Tobacco Use Types Packs/Day Years Used Date Smoking Tobacco: Former Cigarettes 1 20 0 07/01/1982 - 07/01/1999 Passive Smoke Exposure: Never Smokeless Tobacco: Never Alcohol Use Standard Drinks/Week Comments No 0 (1 standard drink = 0.6 oz pur e alcohol) none Depression Answer Date Recorded PHQ-9 Total Score (Interpret ation of Total Score 1-4 = Minimal depression; 5-9 = Mild depression; 10-14 = Moderate depression; 15-19 = Moderately severe depression) 0 09/30/2023 Sex and Gender Information Value Date Recorded Sex Assigned at Not on file Legal Sex Male 6:42 PM EST Gender Identity Male Sexual Orientation Straight 09/02/2018 9: 26 PM EST documented as of this encounter Functional Status * Are you deaf or do you have serious difficulty hearing? Answer Date of Assessment Author No 01/23/2022 4:38 PM EDT Claire Mcbride RN * Are you blind or do you have serious difficulty seeing, even when wearing glasses? Answer Date of Assessment Author No 01/23/2022 4:38 PM EDT Claire Mcbride RN * Do you have serious difficulty walking or climbing stairs (5 years or older)? Answer Date of Assessment Author No 01/23/2022 4:38 PM EDT Claire Mcbride RN * Do you have difficulty dressing or bathing (5 yrs or older)? Answer Date of Assessment Author No 01/23/2022 4:38 PM EDT Claire Mcbride RN * Because of a physical, mental, or emotional condition, do you have difficulty doing errands alone such as visiting a doctor's office or shopping (5 yrs or older)? Answer Date of Assessment Author No 01/23/2022 4:38 PM EDT Claire Mcbride RN documented as of this encounter Mental Status * Because of a physical, mental, or emotional condition, do you have serious difficulty concentrating, remembering, or making decisions (5 yrs or older)? Answer Entry Date Author No 01/23/2022 4:38 PM EDT Claire Mcbride RN documented in this encounter Plan of Treatment Upcoming Encounters Date Type Department Care Team (Late st Contact Info) Description 03/08/2025 11:30 AM EDT Telemedicine Bariatric Surgery [facility] [address] [facility] [address] [phone] [facility] [address] [place] [id number] documented as of this encounter Visit Diagnoses Not on filedocumented in this encounter Additional Health Concerns Assessment Noted Time PHQ-9 Depression Total Score: 0 09/30/19 24 2:03 PM EDT documented as of this encounter Care Teams Inspector Tester Sorter Relationship Specialty Start Date End Date Transplant, Coordinator PCP - Sausage [employer]er 08/23/10 Rodrigo Saravia MD PCP - General Family Medicine 12/04/23 02/24/24 Cayla Velazquez CNP [address] [place] [address] PCP - General Certified Nurse Practitioner 02/25/24 Roberto Carlos Davey MD [address] [place] [address] Consulting Physician Nephrology 02/25/24 documented as of this encounter
--- OUTSIDE RECORDS SUMMARY | 2025-02-25 09:56 | XMS_ITS | Clinical Summary ---
Author Organization [facility] [employer] [facility] Address [address] [place] [address] [place] [address] Care Team Providers Care Certified Orthotist Practice Manager Name Role Phone Transplant, Coordinator Unavailable Cayla Rivers CNP Primary Care Provider + Roberto Carlos Davey MD Unavailable [phone] Allergies Active Allergy Reactions Criticality Noted Date Comments *Seasonal Runny Nose Low 04/21/2021 Nsaids 04/16/2023 Cannot take due to renal transplant and gastric sleeve Medications rOPINIRole 0.5 MG tablet Take 1 tablet by mouth at bedtime. Active escitalopram 20 MG tablet Take 1 tablet by mouth daily every morning. 30 tablet 1 Active magnesium oxide 400 (241.3 Mg) MG tablet Take 1 tablet by mouth 2 times daily. 180 tablet 3 2 Active carBAMazepine 100 MG Chew Tab Take 2 tablets daily in the morning and 3 tablets daily in the evening 4 Active Montelukast 10 MG tablet Take 1 tablet by mouth daily. 90 tablet 3 4 Active Additional Information Patient taking differently:10 mg OralDAILY EVERY MORNING, Reported on 09/09/2024 Cetirizine 10 MG tablet Take 1 tablet by mouth daily. 90 tablet 3 4 Active Additional Information Patient taking differently:10 mg OralDAILY EVERY MORNING, Reported on 09/09/2024 OLANZapine 2.5 MG tablet Take 1 tablet by mouth at bedtime. 4 Active Tacrolimus (PROGRAF) 1 MG capsule Take 6 capsules by mouth 2 times daily. 4 Active Additional Information Patient taking differently: 4 mgOral 2 TIMES DAILY,3 capsules in morning and 4 at night, Reported on 09/09/2024 Terbinafine 1 % Cream creamIndications :Tinea pedis, unspecified laterality Place 1 Application on skin As directed as needed. Apply to affected area (feet) twice daily 4 Active aspirin 81 MG Chew Tab chewable tablet Chew 1 tablet daily every morning. Take this 1 to 2 hours after taking sucralfate slurry. 30 tablet 11 4 Active Tamsulosin HCl 0.4 MG capsule Take 1 capsule by mouth daily. 90 capsule 3 4 Active Mycophenolate sodium (MYFORTIC) [address] Take 3 tablets by mouth every 12 hours. Active Alclometasone Dipropionate 0.05 % CreamIndications :Seborrheic dermatitis Apply 0.05 mg topically As directed as needed. Apply to affected area 1-2 times daily when skin flared 60 g 1 4 Active Ketoconazole 2 % Cream creamIndications :Seborrheic dermatitis Apply 1 Application topically daily as needed. Apply to affected area up to twice daily --> okay to use every day without breaks if needed 60 g 1 4 Active Multiple Vitamin (ONE-A-DAY MENS PO) Take 1 tablet by mouth 2 times daily. Active Active Problems Problem Noted Date Diagnosed Date S/P bypass gastrojejunostomy 04/23/2024 Overview (10/04/2024): As of current visit, regarding common health [...] pounds. Last weighed this in his 20s. Assessment & Plan (10/04/2024 1:57 PM EDT): Labs: orders written for new lab studies as appropriate; see orders, printed lab order to do nutrition labs in ~ [address] consult is requested. Pharmacist consult is not requested. Continue following with Cayla Velazquez to discuss preventive health recommendations. Encouraged vitamin/mineral supplement use as appropriate. Goals as identified below. Assessment & Plan (05/29/2024 9:52 PM EST): Labs: orders written for new lab studies as appropriate; see orders, printed lab order to do nutrition labs in ~ [address] consult is requested. Pharmacist consult is not requested. Continue following with Cayla Velazquez to discuss preventive health recommendations. Encouraged vitamin/mineral supplement use as appropriate. Goals as identified below. Assessment & Plan (04/23/2024 10:20 AM EDT): 1 months post gastro-jejunostomy. Should now be [...] or at 6 months or more post-op. Obesity 03/23/2024 Elective surgery 03/23/2024 Restless leg syndrome 03/02/2022 Stage 3a chronic kidney disease 01/21/2022 Essential hypertension 01/21/2022 Former smoker 01/21/2022 History of renal transplant 08/12/2019 Immunosuppression 08/12/2019 S/P laparoscopic sleeve gastrectomy 08/10/2019 Overview (09/09/2024): As of current visit, regarding common health conditions associated with obesity DEMI []using PAP [x]not using PAP []needs sleep f/u []resolved per study []did not have prior to diallo sx HTN []taking med(s) [x]Off meds []did not have prior to diallo sx HLD []taking med(s) []Off meds [x]did not have prior to diallo sx GERD []taking med(s) Pantoprazole BID []Is < 90d post op [x]Off meds []did not have prior to diallo sx DM []Insulin []other med(s) []Off meds [x]did not have prior to diallo sx Weight Data: At time of surgery: 249 lbs. 14 oz. Highest weight in the year prior to surgery: 261 lbs. 13 oz. Date: 07-07-19 He reports a goal weight of 170-175 pounds. Last weighed this in his 20s. Environmental and seasonal allergies 02/11/2018 Class 2 severe obesity due t o excess calories with serious comorbidity and body mass index (BMI) of 38.0 to 38.9 in adult 05/10/2017 Overview (10/01/2022): 09/29/22 IMO Update S/P umbilical hernia repair, follow-up exam 05/01 -donor 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/25/201609/25 Hyperparathyroidism, secondary renal Depression Anxiety disorder Night muscle spasms Resolved Problems Problem Noted Date Diagnosed Date Resolved Date Appendicitis 12/26/2019 01/05/2020 Overview (12/26/2019): Added automatically from request for surgery [id number] Obesity: body mass index of 30.0-34.9 12/26/2019 10/29/2022 Morbid obesity 07/16/2019 01/05/2020 Overview (07/16/2019): Added automatically from request for surgery [id number] DEMI (obstructive sleep apnea) 07/07/2019 04/26/2020 Morbid obesity with BMI of 40.0-44.9, adult 04/02/2019 07/07/2019 Overview (04/02/2019): Added automatically from request for surgery [id number] Weight loss counseling, encounter for 04/02/2019 01/05/2020 Overview (04/02/2019): Added automatically from request for surgery [id number] Weight gain 04/02/2019 01/05/2020 Overview (04/02/2019): Added automatically from request for surgery [id number] Pre-op testing 04/02/2019 07/07/2019 Overview (04/02/2019): Added automatically from request for surgery [id number] Pre-op evaluation 04/02/2019 07/07/2019 Overview (04/02/2019): Added automatically from request for surgery [id number] Iron deficiency 04/02/2019 04/26/2020 Overview (04/02/2019): Added automatically from request for surgery [id number] Pre-diabetes 04/02/2019 04/29/2020 Overview (04/02/2019): Added automatically from request for surgery [id number] Vitamin D deficiency 04/02/2019 020 Overview (04/02/2019): Added automatically from request for surgery [id number] Obesity: body mass index of 40.0-49.9 02/28/2019 01/05/2020 Small bowel obstruction, partial 02/28/2019 07/07/2019 Incarcerated incisional hernia 02/27/2019 01/05/2020 Overview (02/27/2019): Added automatically from request for surgery [id number] Incisional hernia 02/27/2019 03/04/2019 Bilateral recurrent inguinal hernia without obstruction or gangrene 11/10/2018 01/05/2020 Catrachoethel sherrons 02/11/2018 03/04/2019 H/O umbilical hernia repair 05/10/2017 05/21/2017 Umbilical hernia without obs truction and without gangrene 04/24/2017 07/16/2017 Overview (04/24/2017): Added automatically from request for surgery [id number] Obesity: body mass index of 30.0-34.9 02/19/2017 05/21/2017 Abdominal pain, RLQ 02/19/2017 02/21/20 17 Immunocompromised seconadry to medications 09/25/2016 05/21/2017 Kidney transplant candidate 09/24/2016 09/25/2016 End-stage renal disease 09/24/201608/2021 Polycystic kidney disease 09/24/2016 GERD (gastroesophageal reflux disease) 04/26/2020 Obesity 04/15/2017 Snoring 07/07/2019 Immunizations Immunization Administration Dates Next Due [id number] COVID-19 monovalen t vaccine, AD26, Jenna 0.5 ML 09/10/2020 Influenza, injectable, quadrivalent, preservativ e free 09/12/2018 Pneumococcal Conjugate 13-valent vaccine 016 Pneumococcal Polysac 23-Valent Vaccine 2 Td Vaccine 2-2 LF 01/05/2016 Family History Medical History Relation Name Comments Diabetes Father Wang Other - Specify Maternal Grandfather zoie esrd Alzheimer's Maternal Grandmother Hypertension Mother Abbie Kidney Disease Mother Abbie PKD; transpla nt Other - Specify Mother Abbie esrd Diabetes Sister 1 Walker Diabetes Sister 2 Walker Anesth Problems Neg Hx Colorectal Cancer Neg Hx GI Disease Neg Hx Relation Name Status Comments Brother Vadim Alive Daughter 1 Alive Daughter 2 Alive Father Wang Alive Maternal Grandfather zoie Alive Maternal Grandmother Mother Abbie Alive Paternal Grandfather Paternal Grandmother Sister 1 Walker Alive Sister 2 Walker Alive Son Alive Social History Tobacco Use Types Packs/Day Years Used Date Smoking Tobacco: Former Cigarettes 1 20 0 07/01/1982 - 12/30/1999 Passive Smoke Exposure: Past Smokeless Tobacco: Never Tobacco Cessation:Counseling Given: Not Answered Alcohol Use Standard Drinks/Week Comments Not Currently 0 (1 standard drink = 0.6 oz pur e alcohol) none [facility] Utilities Answer Date Recorded In the past 12 months has th e electric, gas, oil, or water company threatened to shut off services in your home? No 03/23/2024 Hunger Vital Sign Answer Date Recorded Within the past 12 months, y ou worried that your food would run out before you got the money to buy more. Never true 03/23/20 24 Within the past 12 months, t he food you bought just didn't last and you didn't have money to get more. Never true 03/23/2024 PRAPARE - Transportation Answer Date Re corded In the past 12 months, has l ack of transportation kept you from medical appointments or from getting medications? No 03/02 In the past 12 months, has l ack of transportation kept you from meetings, work, or from getting things needed for daily living? No 03/23/2024 Housing Stability Vital Sign Answer Mohan e Recorded In the last 12 months, was t here a time when you were not able to pay the mortgage or rent on time? No 03/23/2024 Number of Times Moved in the Last Year Not on fi le 03/23/2024 At any time in the past 12 m [facility], were you homeless or living in a half-way (including now)? No 03/23/2024 Depression Answer Date Recorded PHQ-9 Total Score (Interpret ation of Total Score 1-4 = Minimal depression; 5-9 = Mild depression; 10-14 = Moderate depression; 15-19 = Moderately severe depression) 0 09/09/2024 Sex and Gender Information Value Date Recorded Sex Assigned at Not on file Legal Sex Male 6:42 PM EST Gender Identity Male Sexual Orientation Straight 09/02/2018 9: 26 PM EST Last Filed Vital Signs Vital Sign Reading Time Taken Comments Blood Pressure 142/79 05/21/2024 10:04 AM EST Pulse 70 05/21/2024 10:04 AM EST Temperature 36.7 C (98.1 F) 05/21/2024 10:04 AM EST Respiratory Rate 16 05/21/2024 10:04 AM EST Oxygen Saturation 99% 05/21/2024 10:04 AM EST Inhaled Oxygen Concentration - - Weight 82.1 kg (181 lb) 09/09/2024 8:36 AM EDT Height 170.2 cm (5' 7 ) 09/09/2024 8:36 AM EDT Body Mass Index 28.35 09/09/2024 8:36 AM EDT Plan of Treatment Upcoming Encounters Date Type Department Care Team (Late st Contact Info) Description 03/08/2025 11:30 AM EDT Telemedicine Bariatric Surgery [facility] [address] [place] [address] Bina Sheets, RD [address] [place] [address] Health Maintenance Due Date Last Done Comments HEP B VACCINE (1 of 3 - 19+ 3-dose series) 1986 COVID-19 VACCINE (4 - season) 2024 05/13/2023, 07/18/2021, 09/10/2020 COLORECTAL CANCER SCREENING DISCUSSION 04/16/2024 04/16/2023 (Declined), 12/12/2020 (Declined) PROSTATE CANCER SCREENING DISCUSSION 04/16/2024 04/16/2023 (Declined), 01/04/2022, 12/12/2020 (Declined), Additional history exists INFLUENZA VACCINE (#1) 2025 , 05/13/2023, 04/16/2023 (Declined), Additional history exists TETANUS 01/04/2026 01/05/2016 PNEUMOCOCCAL VACCINE SERIES (4 of 4 - PCV20 or PCV21) 07/10/2026 07/10/2021, 02/07/2018, 01/10/2016, Additional history exists LIPID SCREENING 10/17/2027 10/16/2022, 03/01/2022, 05/01/2021, Additional history exists HEPATITIS C VIRUS SCREENING Completed 02/09/2011 TDAP (ADULT) Completed 01/05/2016 ZOSTER (SHINGLES) VACCINE Completed 05/20/2019, HIV SCREENING DISCUSSION Addressed 12/12/2020 (Decl ined) Overridden with the intention of not completing the topic PNEUMOCOCCAL VACCINE SERIES Discontinued 07/10/2021, 02/07/2018, 01/10/2016, Additional history exists Medical Devices Implanted Type Area Security Systems Technician Device Identifier Shelf Expiration Date Model / Serial / Lot Mesh Marlex 10in X 14in - [id number] Implanted:Qty: 1 on 02/27/2019 by Raul Lott MD at [facility] Mesh N/A: Abdomen BARD/DAVOL 07/31/2023 [id number] / / [id number] Covidien Mesh Open Skirt [id number] Implanted:Qty: 1 on 05/09/2017 at [facility] Explanted:at [facility] (Quantity not on file) N/A: Umbilical U S SURGICAL 01/28/2021 [id number] / / [id number] Description:[id number] Procedures Procedure Name Priority Date/Time Associated Diagnosis Comments LIPID PANEL W CALCULATED LDL Routine 10/16/2022 11:39 AM EDT PSA, REFLEX TO FREE AND TOTAL PSA Routine 01/04/2022 11:55 AM EDT BPH with obstruction/lower urinary tract symptoms PRE-TRANSPLANT KIDNEY PACKAGE Routine 02/09/2011 11:09 AM EDT from Last 3 Months or Most Recently Relevant to Health Maintenance Results * LIPID PANEL W CALCULATED LDL (10/16/2022 11:39 AM EDT) CHOLESTEROL 168 120 - 200 MG/DL [facility] - [address] - [place] TRIGLYCERIDE 91 0 - 150 MG/DL [facility] - [address] - [facility] HDL CHOLESTEROL 42 26 - 63 MG/DL [facility] - [address] - [place] LDL CHOLESTEROL, CALCULATED 108 MG/DL [facility] - [address] - [facility] VLDL Cholesterol, Calculated 18 5.0 - 25 MG/DL [facility] - [address] - [place] TCHOL/HDL RATIO, MANUAL ENTER 4.00 RATIO [facility] - [address] - [facility] Comment: RISK TOTAL/HDL RATIO MEN WOMEN 1/2 AVERAGE 3.43 3.27 AVERAGE 4.97 4.44 2X AVERAGE 9.55 7.05 3X AVERAGE 23.99 11.04 10/16/2022 11:3 9 AM EDT 10/16/2022 11:40 AM EDT us Colin UNGER CHEMISTRY ORDERABLES Final Resu lt [facility] - [address] - [place] [address] [place] [address] * PSA, REFLEX TO FREE AND TOTAL PSA (01/04/2022 11:55 AM EDT) PSA (Prostate Sp Ag) 0.68 <=4.00 ng/mL 01/04/2022 2:53 PM EDT [facility] Comment:This test was perfor med on the QuantiaMD IM Immunoassay platform which is a 2-step sandwich chemiluminescent immunoassay. It is important to note that assays using different manufacturers and/or methods may not be comparable. Blood Butterfly / Unknown 01/04/2022 11:55 AM EDT 01/04/2022 11:57 AM EDT us Alexandru Mccracken MD, PhD CHEMISTRY ORDERABLES Bridgette l Result [facility] [address] [place] [address] * (ABNORMAL) PRE-TRANSPLANT KIDNEY PACKAGE (02/09/2011 11:09 AM EDT) BUN 47(H) 6.0 - 20.0 mg/dL [facility], [facility] CREATININE SERUM 4.23(H) 0.90 - 1.30 mg/dL [facility] BUN/CREA RATIO 11 [facility] ESTIMATED GFR, NON AMER 15 (mL/min/1.73 square meters) [facility] ESTIMATED GFR, 19 (mL/min/1.73 square meters) The estimated GFRs are based on the MDRD formula for assessment of stable or slowly declining kidney function in adults. Estimated GFR values are not accurate in: obese (BMI>34) or underweight (BMI<20) people, the very old or very young, races other than or -Syrian and people with acute illnesses, amputations or acute kidney failure. Estimated GFR should be interpreted in clinical context and an alternative method such as a timed urine collection for creatinine clearance used to verify questionable results. [facility] CALCIUM 8.9 8.6 - 10.0 mg/dL [facility] ALKALINE PHOSPHATASE 93 38 - 126 U/L [facility] ALT 13 10 - 40 U/L [facility] AST 14 5 - 34 U/L [facility] GGT 57 8 - 64 U/L [facility] BILIRUBIN, TOTAL 0.4 <1.5 mg/dL [facility] Albumin 3.9 3.4 - 4.8 g/dL [facility] HEMOGLOBIN A1C 5.3 4.7 - 5.8 % [facility] Estimated Average Glucose 105 [facility] PTH INTACT 303.7(H) 14.0 - 72.0 pg/mL [facility] Herpes simplex virus 1 Ab.IgG POSITIVE(A) NEG [facility] Herpes simplex virus 2 Ab.IgG NEGATIVE NEG [facility] EBV Antibody to Viral Capsid Antigen IgG POSITIVE(A) NEG [facility] CMV Antibody IgG NEGATIVE NEG [facility] HEP C AB NEGATIVE NEG [facility] Hep B Surf AB NEGATIVE NEG [facility], [facility] HEP B CORE AB,TOTAL(IGG+IG M) NEGATIVE NEG [facility] HIV-1/HIV-2 AB/p24 Antigen NONREACTIVE NRAT [facility], [facility] Hep B Surf AG NEGATIVE NEG [facility] 02/09/2011 11:0 9 AM EDT 02/09/2011 3:40 PM EDT us Jc Burnett MD HEMATOLOGY ORDERABLES Final Re sult LAB, [facility] [address] [place] [address] from Last 3 Months or Most Recently Relevant to Health Maintenance Insurance Medicare [place] HMO Advance Directives For more information, please contact: [phone] (7:30 AM - 6PM [facility], Saturday-Saturday) * Full Code (Latest Code Status on File) Date Activated Date Inactivated Comments 03/23/2024 8:42 AM * Full Code Date Activated Date Inactivated Comments 02/27/2024 8:23 PM 03/23/2024 8:42 AM * Full Code Date Activated Date Inactivated Comments 01/23/2022 5:28 AM 01/23/2022 4:46 PM * Full Code Date Activated Date Inactivated Comments 12/26/2019 9:39 AM 01/23/2022 5:28 AM * Full Code Date Activated Date Inactivated Comments 08/11/2019 5:40 AM 12/26/2019 9:39 AM Care Teams Certified Orthotist Practice Manager Relationship Specialty Start Date End Date Transplant, Coordinator PCP - Piecer 08/23/10 Cayla Velazquez CNP [address] [place] [address] PCP - General Certified Nurse Practitioner 02/25/24 Roberto Carlos Davey MD [address] [place] [address] Consulting Physician Nephrology 02/25/24
--- OUTSIDE RECORDS SUMMARY | 2025-02-25 09:56 | XMS_ITS ---
Continuity of Care Document (CCD) Created on: February 25, 2025 Lino Fontenot External Reference #: [id number] : [id number] Sex: Male Author Organization [facility] [place] Address [address] [place] [phone] Phone [phone] Care Team Providers Care Wrestling Coach Name Role Phone [facility] Care Team Information Planner Chief + [phone] Social History Type Date Description Comments Sex Male Tobacco Use Start: Unknown End: Unknown Patient is a former smoker PT STOPPED IN 1999 Smoking Status Reviewed: 07/01/99 Patient is a former smoker PT STOPPED IN 1999 Results Test Acquired Date Facility Test Result H/L Range N ote BUN - Urea Nitrogen 06/25/2012 [facility] [phone] BUN - Urea Nitrogen 33 Creatine Serum Mass/Vol 06/25/2012 [facility] [phone] Creatine Serum Mass/Vol 4.41 Electrolytes Panel 06/25/2012 [facility] [phone] Carbon Dioxide 24 Chloride 107 Potassium 4.2 Sodium 139 .Calcium, Phosphorus 06/25/2012 [facility] [phone] Calcium Blood 8.5 Phosphorus 3.9 .Hemoglobin And Hematocrit 10/31/2010 [facility] [phone] Hemoglobin 11.6 Hematocrit 32.9 BUN - Urea Nitrogen 10/31/2010 [facility] [phone] BUN - Urea Nitrogen 45 Creatine Serum Mass/Vol 10/31/2010 [facility] [phone] Creatine Serum Mass/Vol 4.06 Electrolytes Panel 10/31/2010 [facility] [phone] Carbon Dioxide 24 Chloride 105 Potassium 4.6 Sodium 137 .Calcium, Phosphorus 10/31/2010 [facility] [phone] Calcium Blood 8.4 Phosphorus 3.8 .Intact Parathyroid Hormone 10/31/2010 [facility] [phone] .Intact Parathyroid Hormone 143 Encounters Type Date Location Provider Dx Diagnosis Office Visit 02/20/2011 3:30p [place] [facility] Sean Hancock M.D. 753.13 Polycystic Kidney Disease, Adult 401.0 Hypertension Maligna nt Essential 588.81 Hyperparathyroidism, Renal 285.21 Anemia In Chronic Ki dney Disease Office Visit 08/17/2010 10:40a [place] [facility] Sean Hancock M.D. 753.13 Polycystic Kidney Disease, Adult 585.4 Chronic Kidney Disea se Stage 4 401.0 Hypertension Maligna nt Essential 588.81 Hyperparathyroidism, Renal Office Visit 05/02/2010 9:40a [place] [facility] Sean sharp M.D. 753.13 Polycystic Kidney Disease, Adult 585.4 Chronic Kidney Disea se Stage 4 404.10 Hypertensive Cardior enal Benign 588.81 Hyperparathyroidism, Renal Assessments Date Code Description Provider 09/28/2016 Q61.2 Polycystic kidney, adult typ e Homero East MD 09/28/2016 N18.6 End stage renal disease Scarlet East MD 09/28/2016 Z99.2 Dependence on renal dialysis Homero East MD 08/28/2016 Q61.2 Polycystic kidney, adult typ e Homero East MD 08/28/2016 N18.6 End stage renal disease Scarlet East MD 08/28/2016 Z99.2 Dependence on renal dialysis Homero East MD 07/31/2016 Q61.2 Polycystic kidney, adult typ e Homero East MD 07/31/2016 N18.6 End stage renal disease Scarlet East MD 07/31/2016 Z99.2 Dependence on renal dialysis Homero East MD 06/30/2016 Q61.2 Polycystic kidney, adult typ e Sean Hancock M.D. 06/30/2016 N18.6 End stage renal disease Maria Luisa Hancock M.D. 06/30/2016 Z99.2 Dependence on renal dialysis Sean Hancock M.D. 05/30/2016 Q61.2 Polycystic kidney, adult typ e Sean Hancock M.D. 05/30/2016 N18.6 End stage renal disease Maria Luisa Hancock M.D. 05/30/2016 Z99.2 Dependence on renal dialysis Sean Hancock M.D. 04/30/2016 Q61.2 Polycystic kidney, adult typ e Sean Hancock M.D. 04/30/2016 N18.6 End stage renal disease Maria Luisa Hancock M.D. 04/30/2016 Z99.2 Dependence on renal dialysis Sean Hancock M.D. 03/30/2016 N18.6 End stage renal disease Maria Luisa Hancock M.D. 03/30/2016 Z99.2 Dependence on renal dialysis Sean Hancock M.D. 02/29/2016 N18.6 End stage renal disease Maria Luisa Hancock M.D. 02/29/2016 Z99.2 Dependence on renal dialysis Sean Hancock M.D. 01/29/2016 N18.6 End stage renal disease Maria Luisa Hancock M.D. 01/29/2016 Z99.2 Dependence on renal dialysis Sean Hancock M.D. 12/29/2015 N18.6 End stage renal disease Maria Luisa Hancock M.D. 12/29/2015 Z99.2 Dependence on renal dialysis Sean Hancock M.D. 11/29/2015 N18.6 End stage renal disease Maria Luisa Hancock M.D. 11/29/2015 Z99.2 Dependence on renal dialysis Sean Hacnock M.D. 10/29/2015 N18.6 End stage renal disease Maria Luisa Hancock M.D. 10/29/2015 Z99.2 Dependence on renal dialysis Sean Hancock M.D. 09/29/2015 N18.6 End stage renal disease Maria Luisa Hancock M.D. 09/29/2015 Z99.2 Dependence on renal dialysis Sean Hancock M.D. 08/29/2015 N18.6 End stage renal disease Maria Luisa Hancock M.D. 08/29/2015 Z99.2 Dependence on renal dialysis Saen Hancock M.D. 07/31/2015 N18.6 End stage renal disease Maria Luisa Hancock M.D. 07/31/2015 Z99.2 Dependence on renal dialysis Sean Hancock M.D. 06/30/2015 N18.6 End stage renal disease Maria Luisa Hancock M.D. 06/30/2015 Z99.2 Dependence on renal dialysis Sean Hancock M.D. 05/30/2015 N18.6 End stage renal disease Maria Luisa Hancock M.D. 05/30/2015 Z99.2 Dependence on renal dialysis Sean Hancock M.D. 04/30/2015 N18.6 End stage renal disease Maria Luisa Hancock M.D. 04/30/2015 Z99.2 Dependence on renal dialysis Sean Hancock M.D. 03/30/2015 N18.6 End stage renal disease Maria Luisa Hancock M.D. 03/30/2015 Z99.2 Dependence on renal dialysis Sean Hancock M.D. 02/28/2015 V45.11 Renal Dialysis Status Sean Hancock M.D. 02/28/2015 585.6 Chronic Renal Failure/End St age Renal Disease Sean Hancock M.D. 01/28/2015 V45.11 Renal Dialysis Status Sean Hancock M.D. 01/28/2015 585.6 Chronic Renal Failure/End St age Renal Disease Sean Hancock M.D. 01/13/2015 V45.11 Renal Dialysis Status Sean Hancock M.D. 01/13/2015 585.6 Chronic Renal Failure/End St age Renal Disease Sean Hancock M.D. 12/28/2014 585.6 Chronic Renal Failure/End St age Renal Disease Sean Hancock M.D. 12/28/2014 V45.11 Renal Dialysis Status Sean Hancock M.D. 11/28/2014 585.6 Chronic Renal Failure/End St age Renal Disease Sean Hancock M.D. 11/28/2014 V45.11 Renal Dialysis Status Sean Hancock M.D. 11/27/2014 585.6 Chronic Renal Failure/End St age Renal Disease Aurora Hancock M.D. 11/27/2014 789.00 Pain Abdominal Unspec Site S jayson Hancock M.D. 11/27/2014 285.21 Anemia In Chronic Kidney Dis ease Aurora Hancock M.D. 11/27/2014 753.13 Polycystic Kidney Disease, A gissellet Aurora Hancock M.D. 11/26/2014 585.6 Chronic Renal Failure/End St age Renal Disease Reji Cole M.D. 11/26/2014 789.00 Pain Abdominal Unspec Site R romeo Cole M.D. 11/26/2014 285.21 Anemia In Chronic Kidney Dis ease Reji Cole M.D. 11/26/2014 753.13 Polycystic Kidney Disease, A gissellet Reji Cole M.D. 11/25/2014 585.6 Chronic Renal Failure/End St age Renal Disease Sean Hancock M.D. 11/25/2014 V45.11 Renal Dialysis Status Sean Hancock M.D. 10/28/2014 585.6 Chronic Renal Failure/End St age Renal Disease Sean Hancock M.D. 10/28/2014 V45.11 Renal Dialysis Status Sean Hancock M.D. 09/28/2014 585.6 Chronic Renal Failure/End St age Renal Disease Sean Hancock M.D. 09/28/2014 V45.11 Renal Dialysis Status Sean Hancock M.D. 08/28/2014 585.6 Chronic Renal Failure/End St age Renal Disease Sean Hancock M.D. 08/28/2014 V45.11 Renal Dialysis Status Sean Hancock M.D. 07/31/2014 585.6 Chronic Renal Failure/End St age Renal Disease Sean Hancock M.D. 07/31/2014 V45.11 Renal Dialysis Status Sean Hancock M.D. 06/30/2014 585.6 Chronic Renal Failure/End St age Renal Disease Sean Hancock M.D. 06/30/2014 V45.11 Renal Dialysis Status Sean Hancock M.D. 05/30/2014 585.6 Chronic Renal Failure/End St age Renal Disease Sean Hancock M.D. 05/30/2014 V45.11 Renal Dialysis Status Sean Hancock M.D. 04/30/2014 585.6 Chronic Renal Failure/End St age Renal Disease Sean Hancock M.D. 04/30/2014 V45.11 Renal Dialysis Status Sean Hancock M.D. 03/30/2014 585.6 Chronic Renal Failure/End St age Renal Disease Sean Hancock M.D. 03/30/2014 V45.11 Renal Dialysis Status Sean Hancock M.D. 02/28/2014 585.6 Chronic Renal Failure/End St age Renal Disease Sean Hancock M.D. 02/28/2014 V45.11 Renal Dialysis Status Sean Hancock M.D. 01/28/2014 585.6 Chronic Renal Failure/End St age Renal Disease Sean Hancock M.D. 01/28/2014 V45.11 Renal Dialysis Status Sean Hancock M.D. 12/28/2013 585.6 Chronic Renal Failure/End St age Renal Disease Sean Hancock M.D. 12/28/2013 V45.11 Renal Dialysis Status Sean Hancock M.D. 11/28/2013 585.6 Chronic Renal Failure/End St age Renal Disease Sean Hancock M.D. 11/28/2013 V45.11 Renal Dialysis Status Sean Hancock M.D. 10/28/2013 585.6 Chronic Renal Failure/End St age Renal Disease Sean Hancock M.D. 10/28/2013 V45.11 Renal Dialysis Status Sean Hancock M.D. 09/28/2013 585.6 Chronic Renal Failure/End St age Renal Disease Sean Hancock M.D. 09/28/2013 V45.11 Renal Dialysis Status Sean Hancock M.D. 08/28/2013 585.6 Chronic Renal Failure/End St age Renal Disease Sean Hancock M.D. 08/28/2013 V45.11 Renal Dialysis Status Sean Hancock M.D. 07/31/2013 585.6 Chronic Renal Failure/End St age Renal Disease Sean Hancock M.D. 07/31/2013 V45.11 Renal Dialysis Status Sean Hancock M.D. 06/30/2013 585.6 Chronic Renal Failure/End St age Renal Disease Sean Hancock M.D. 06/30/2013 V45.11 Renal Dialysis Status Sean Hancock M.D. 05/30/2013 585.6 Chronic Renal Failure/End St age Renal Disease Sean Hancock M.D. 05/30/2013 V45.11 Renal Dialysis Status Sean Hancock M.D. 04/30/2013 585.6 Chronic Renal Failure/End St age Renal Disease Sean Hancock M.D. 04/30/2013 V45.11 Renal Dialysis Status Sean Hancock M.D. 03/30/2013 585.6 Chronic Renal Failure/End St age Renal Disease Sean Hancock M.D. 03/30/2013 V45.11 Renal Dialysis Status Sean Hancock M.D. 02/28/2013 585.6 Chronic Renal Failure/End St age Renal Disease Sean Hancock M.D. 02/28/2013 V45.11 Renal Dialysis Status Sean Hancock M.D. 01/28/2013 585.6 Chronic Renal Failure/End St age Renal Disease Sean Hancock M.D. 01/28/2013 V45.11 Renal Dialysis Status Sean Hancock M.D. 12/28/2012 585.6 Chronic Renal Failure/End St age Renal Disease Sean Hancock M.D. 12/28/2012 V45.11 Renal Dialysis Status Sean Hancock M.D. 11/28/2012 585.6 Chronic Renal Failure/End St age Renal Disease Sean Hancock M.D. 11/28/2012 V45.11 Renal Dialysis Status Sean Hancock M.D. 10/28/2012 585.6 Chronic Renal Failure/End St age Renal Disease Sean Hancock M.D. 10/28/2012 V45.11 Renal Dialysis Status Sean Hancock M.D. 09/28/2012 585.6 Chronic Renal Failure/End St age Renal Disease Sean Hancock M.D. 09/28/2012 V45.11 Renal Dialysis Status Sean Hancock M.D. 08/28/2012 585.6 Chronic Renal Failure/End St age Renal Disease Sean Hancock M.D. 08/28/2012 V45.11 Renal Dialysis Status Sean Hancock M.D. 07/31/2012 585.6 Chronic Renal Failure/End St age Renal Disease Sean Hancock M.D. 07/31/2012 V45.11 Renal Dialysis Status Sean Hancock M.D. 06/30/2012 585.6 Chronic Renal Failure/End St age Renal Disease Sean Hancock M.D. 06/30/2012 V45.11 Renal Dialysis Status Sean Hancock M.D. 05/30/2012 585.6 Chronic Renal Failure/End St age Renal Disease Sean Hancock M.D. 05/30/2012 V45.11 Renal Dialysis Status Sean Hancock M.D. 04/30/2012 585.6 Chronic Renal Failure/End St age Renal Disease Sean Hancock M.D. 04/30/2012 V45.11 Renal Dialysis Status Sean Hancock M.D. 03/30/2012 585.6 Chronic Renal Failure/End St age Renal Disease Sean Hancock M.D. 03/30/2012 V45.11 Renal Dialysis Status Sean Hancock M.D. 02/29/2012 585.6 Chronic Renal Failure/End St age Renal Disease Sean Hancock M.D. 02/29/2012 V45.11 Renal Dialysis Status Sean Hancock M.D. 01/29/2012 585.6 Chronic Renal Failure/End St age Renal Disease Sean Hancock M.D. 01/29/2012 V45.11 Renal Dialysis Status Sean Hancock M.D. 12/29/2011 585.6 Chronic Renal Failure/End St age Renal Disease Sean Hancock M.D. 12/29/2011 V45.11 Renal Dialysis Status Sean Hancock M.D. 11/29/2011 585.6 Chronic Renal Failure/End St age Renal Disease Sean Hancock M.D. 11/29/2011 V45.11 Renal Dialysis Status Sean Hancock M.D. 10/29/2011 585.6 Chronic Renal Failure/End St age Renal Disease Sean Hancock M.D. 10/29/2011 V45.11 Renal Dialysis Status Sean Hancock M.D. 09/29/2011 585.6 Chronic Renal Failure/End St age Renal Disease Sean Hancock M.D. 09/29/2011 V45.11 Renal Dialysis Status Sean Hancock M.D. 08/29/2011 585.6 Chronic Renal Failure/End St age Renal Disease Sean Hancock M.D. 08/29/2011 V45.11 Renal Dialysis Status Sean Hancock M.D. 07/31/2011 585.6 Chronic Renal Failure/End St age Renal Disease Sean Hancock M.D. 07/31/2011 V45.11 Renal Dialysis Status Sean Hancock M.D. 06/30/2011 585.6 Chronic Renal Failure/End St age Renal Disease Sean Hancock M.D. 06/30/2011 V45.11 Renal Dialysis Status Sean Hancock M.D. 05/30/2011 585.6 Chronic Renal Failure/End St age Renal Disease Sean Hancock M.D. 05/30/2011 V45.11 Renal Dialysis Status Sean Hancock M.D. 05/02/2011 585.6 End Stage Renal Disease Maria Luisa Hancock M.D. 04/30/2011 585.6 End Stage Renal Disease Maria Luisa Hancock M.D. 04/30/2011 V45.11 Renal Dialysis Status Sean Hancock M.D. 03/30/2011 585.6 End Stage Renal Disease Maria Luisa Hancock M.D. 03/30/2011 V45.11 Renal Dialysis Status Sean Hancock M.D. 02/23/2011 585.6 End Stage Renal Disease Bryce Smith M.D. 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 02/23/2011 401.1 Hypertension Benign Jaswant Smith M.D. 02/23/2011 285.21 Anemia In Chronic Kidney Dis ease Jaswant Smith M.D. 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 02/22/2011 401.1 Hypertension Benign Jaswant Smith M.D. 02/22/2011 285.21 Anemia In Chronic Kidney Dis ease Jaswant Smith M.D. 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 02/20/2011 401.0 Hypertension Malignant Sean Hancock M.D. 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 02/20/2011 285.21 Anemia In Chronic Kidney Dis ease Sean Hancock M.D. 11/16/2010 585.4 Chronic Kidney Disease Stage 4 Sean Hancock M.D. 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 08/17/2010 585.4 Chronic Kidney Disease Stage IV Severe Sean Hancock M.D. 08/17/2010 401.0 Hypertension Malignant Sean Hancock M.D. 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 05/02/2010 585.4 Chronic Kidney Disease Stage IV Severe Sean Hancock M.D. 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 05/02/2010 588.81 Secondary Hyperparathyroidis m-Renal Sean Hancock M.D. 01/03/2010 585.4 Chronic Kidney Disease Stage IV Severe Sean Hancock M.D. 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 01/03/2010 401.1 Hypertension Benign Sean pitts M.D. 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 09/05/2009 585.4 Chronic Kidney Disease Stage IV Severe Sean Hancock M.D. 09/05/2009 401.0 Hypertension Malignant Sean Hancock M.D. 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
--- OUTSIDE RECORDS SUMMARY | 2025-02-25 09:56 | XMS_ITS | Encounter Summary ---
Author Organization [facility] [employer] Address [address] [place] [address] Care Team Providers Care Go Go Dancer Name Role Phone Rodrigo Saravia MD Primary Care Provider + [phone] Transplant, Coordinator Unavailable Unavaila Mariana Linn SODA ROOM OPERATOR-SHIP SCALER Primary Care Provider Unavailable Rodrigo Saravia MD Primary Care Provider [phone] Cayla Velazquez CNP Primary Care Provider + Roberto Carlos Davey MD Unavailable [phone] Encounter Details Date Type Department Care Team (Late st Contact Info) Description 08/10/2016 Telephone [facility] [address] [place] [address] Renata Noble Social History Tobacco Use Types Packs/Day Years Used Date Smoking Tobacco: Former Cigarettes 1 20 0 07/01/1979 - 07/01/1999 Alcohol Use Standard Drinks/Week Comments No 0 (1 standard drink = 0.6 oz pur e alcohol) Sex and Gender Information Value Date Recorded Sex Assigned at Not on file Legal Sex Male 6:42 PM EST Gender Identity Male Sexual Orientation Straight 09/02/2018 9: 26 PM EST documented as of this encounter Functional Status * Are you deaf or do you have serious difficulty hearing? Answer Date of Assessment Author No 11/25/2015 1:49 AM EDT Yesy torres, Ni, RN * Are you blind or do you have serious difficulty seeing, even when wearing glasses? Answer Date of Assessment Author No 11/25/2015 1:49 AM EDT Ni Dang RN * Do you have serious difficulty walking or climbing stairs (5 years or older)? Answer Date of Assessment Author No 11/25/2015 1:49 AM EDT Ni Dang RN * Do you have difficulty dressing or bathing (5 yrs or older)? Answer Date of Assessment Author No 11/25/2015 1:49 AM EDT Ni Dang RN * Because of a physical, mental, or emotional condition, do you have difficulty doing errands alone such as visiting a doctor's office or shopping (5 yrs or older)? Answer Date of Assessment Author No 11/25/2015 1:49 AM EDT Ni Dang RN documented as of this encounter Mental Status * Because of a physical, mental, or emotional condition, do you have serious difficulty concentrating, remembering, or making decisions (5 yrs or older)? Answer Entry Date Author No 11/25/2015 1:49 AM EDT Ni Dang RN documented in this encounter Plan of Treatment Upcoming Encounters Date Type Department Care Team (Late st Contact Info) Description 03/08/2025 11:30 AM EDT Telemedicine Bariatric Surgery [facility] [address] [facility] [address] [phone] Bina Sheets, RD [address] [facility] [address] [place] [phone] documented as of this encounter Visit Diagnoses Not on filedocumented in this encounter Additional Health Concerns Infection Onset Date Last Indicated Resolved Time COVID-19 Suspected 12/26/2019 12/26/2019 0 9:17 AM EDT COVID-19 Suspected 06/21/2020 06/21/2020 1 4:17 AM EST documented as of this encounter Care Teams Go Go Dancer Relationship Specialty Start Date End Date Rodrigo Saravia MD [address] [place] [address] PCP - General 02/09/11 07/15/17 Transplant, Coordinator [address] [place] [address] PCP - Transportation Dispatcher 08/23/10 Mariana Miranda APRN-SHIP SCALER [address] [place] [address] PCP - General Nurse Practitioner - Family 07/16/17 11/19/23 Rodrigo Saravia MD [address] [place] [address] PCP - General Family Medicine 12/04/23 02/24/24 Cayla Velazquez CNP [address] [place] [address] PCP - General Certified Nurse Practitioner 02/25/24 Roberto Carlos Davey MD [address] [facility] [address] Consulting Physician Nephrology 02/25/24 documented as of this encounter
--- OUTSIDE RECORDS SUMMARY | 2025-02-25 09:56 | XMS_ITS | Encounter Summary ---
Author Organization [facility] [employer] Address [address] [place] [address] Care Team Providers Care Space Operations Officer Name Role Phone Transplant, Coordinator Unavailable Unavaila Mariana Linn Primary Care Provider Unavailable Rodrigo Saravia MD Primary Care Provider Cayla Velazquez CNP Primary Care Provider + Roberto Carlos Davey MD Unavailable [phone] Encounter Details Date Type Department Care Team (Late st Contact Info) Description 09/15/2020 Orders Only [facility] [address] [place] [address] Payal Luis, REYES Social History Tobacco Use Types Packs/Day Years Used Date Smoking Tobacco: Former Cigarettes 1 20 0 07/01/1979 - 07/01/1999 Smokeless Tobacco: Never Alcohol Use Standard Drinks/Week Comments No 0 (1 standard drink = 0.6 oz pur e alcohol) Sex and Gender Information Value Date Recorded Sex Assigned at Not on file Legal Sex Male 6:42 PM EST Gender Identity Male Sexual Orientation Straight 09/02/2018 9: 26 PM EST COVID-19 Exposure Response Date Recorded In the last month, have you been in contact with someone who was confirmed or suspected to have Coronavirus / COVID-19? No / Unsure 09/15/2020 1:03 PM EDT documented as of this encounter Functional Status * Are you deaf or do you have serious difficulty hearing? Answer Date of Assessment Author No 12/26/2019 9:45 AM Edenilson Mock RN * Are you blind or do you have serious difficulty seeing, even when wearing glasses? Answer Date of Assessment Author No 12/26/2019 9:45 AM Edenilson Mock RN * Do you have serious difficulty walking or climbing stairs (5 years or older)? Answer Date of Assessment Author No 12/26/2019 9:45 AM Edenilson Mock RN * Do you have difficulty dressing or bathing (5 yrs or older)? Answer Date of Assessment Author No 12/26/2019 9:45 AM Edenilson Mock RN * Because of a physical, mental, or emotional condition, do you have difficulty doing errands alone such as visiting a doctor's office or shopping (5 yrs or older)? Answer Date of Assessment Author No 12/26/2019 9:45 AM Edenilson Mock RN documented as of this encounter Mental Status * Because of a physical, mental, or emotional condition, do you have serious difficulty concentrating, remembering, or making decisions (5 yrs or older)? Answer Entry Date Author No 12/26/2019 9:45 AM Edenilson Mock RN documented in this encounter Plan of Treatment Upcoming Encounters Date Type Department Care Team (Late st Contact Info) Description 03/08/2025 11:30 AM EDT Telemedicine Bariatric Surgery [facility] Outpatient Care [address] [address] Bina Sheets, RD [address] [address] documented as of this encounter Visit Diagnoses Not on filedocumented in this encounter Care Teams Space Operations Officer Relationship Specialty Start Date End Date Transplant, Coordinator PCP - Blocking Machine Tender 08/23/10 Mariana Miranda APRN-AUTOMATIC FANCY MACHINE OPERATOR PCP - General Nurse Practitioner - Family 07/16/17 11/19/23 Rodrigo Saravia MD PCP - General Family Medicine 12/04/23 02/24/24 Cayla Velazquez CNP [address] [place] [address] PCP - General Certified Nurse Practitioner 02/25/24 Roberto Carlos Davey MD [address] [place] [address] Consulting Physician Nephrology 02/25/24 documented as of this encounter
--- OUTSIDE RECORDS SUMMARY | 2025-02-25 09:56 | XMS_ITS | Encounter Summary ---
Author Organization [facility] Address [address] [place] [id number] Care Team Providers Care Travel Guide Name Role Phone Transplant, Coordinator Unavailable Unavaila Mariana Linn MOBILE UI DEVELOPER-COLLECTOR OF PORT Primary Care Provider Unavailable Rodrigo Saravia MD Primary Care Provider [phone] Cayla Velazquez CNP Primary Care Provider + Roberto Carlos Davey MD Unavailable [phone] Encounter Details Date Type Department Care Team (Late st Contact Info) Description 11/06/2018 Orders Only [facility] [address] [place] [phone] Tramaine Stephens PA-C [address] [place] [address] Social History Tobacco Use Types Packs/Day Years [...] hearing? Answer Date of Assessment Author No 02/18/2017 6:49 PM EDT Franny Strong, TABATHA * Are you blind or do you have serious difficulty seeing, even when wearing glasses? Answer Date of Assessment Author No 02/18/2017 6:49 PM EDT Franny Strong RN * Do you have serious difficulty walking or climbing stairs (5 years or older)? Answer Date of Assessment Author No 02/18/2017 6:49 PM EDT Franny Strong RN * Do you have difficulty dressing or bathing (5 yrs or older)? Answer Date of Assessment Author No 02/18/2017 6:49 PM EDT Franny Strong RN * Because of a physical, mental, or emotional condition, do you have difficulty doing errands alone such as visiting a doctor's office or shopping (5 yrs or older)? Answer Date of Assessment Author No 02/18/2017 6:49 PM EDT Franny Strong RN documented as of this encounter Mental Status * Because of a physical, mental, or emotional condition, do you have serious difficulty concentrating, remembering, or making decisions (5 yrs or older)? Answer Entry Date Author No 02/18/2017 6:49 PM EDT Franny Strong RN documented in this encounter Plan of Treatment Upcoming Encounters Date Type Department Care Team (Late st Contact Info) Description 03/08/2025 11:30 AM EDT Telemedicine Bariatric Surgery [facility]patient [facility] [address] [phone] Bina Sheets, RD [address] [phone] documented as of this encounter Visit Diagnoses Not on filedocumented in this encounter Additional Health Concerns Infection Onset Date Last Indicated Resolved Time COVID-19 Suspected 12/26/2019 12/26/2019 0 9:17 AM EDT COVID-19 Suspected 06/21/2020 06/21/2020 1 4:17 AM EST documented as of this encounter Care Teams Travel Guide Relationship Specialty Start Date End Date Transplant, Coordinator PCP - Vehicle Window Tinter 08/23/10 Mariana Miranda APRN-COLLECTOR OF PORT PCP - General Nurse Practitioner - Family 07/16/17 11/19/23 Rodrigo Saravia MD PCP - General Family Medicine 12/04/23 02/24/24 Cayla Velazquez CNP [address] [place] [address] PCP - General Certified Nurse Practitioner 02/25/24 Roberto Carlos Davey MD [address] [place] [address] Consulting Physician Nephrology 02/25/24 documented as of this encounter
--- OUTSIDE RECORDS SUMMARY | 2025-02-25 09:56 | XMS_ITS | Encounter Summary ---
Author Organization [facility] [employer] [facility] Address [address] [place] [address] Care Team Providers Care Vp Site Name Role Phone Rodrigo Saravia MD Primary Care Provider + [phone] Transplant, Coordinator Unavailable Unavaila Mariana Linn SHOE DRESSER-PAIN MANAGEMENT NURSE Primary Care Provider Unavailable Rodrigo Saravia MD Primary Care Provider [phone] Cayla Velazquez CNP Primary Care Provider + Roberto Carlos Davey MD Unavailable [phone] Encounter Details Date Type Department Care Team (Late st Contact Info) Description 09/19/2016 Telephone Comprehensive Transplant Center [facility] [address] [place] [address] Lynsey Rodriguez Social History Tobacco Use Types Packs/Day Years [...] 03/08/2025 11:30 AM EDT Telemedicine Bariatric Surgery [facility] Outpatient Care [address] [phone] [address]ina Sheets, RD [address] [phone] documented as of this encounter Visit Diagnoses Not on filedocumented in this encounter Additional Health Concerns Infection Onset Date Last Indicated Resolved Time COVID-19 Suspected 12/26/2019 12/26/2019 0 9:17 AM EDT COVID-19 Suspected 06/21/2020 06/21/2020 1 4:17 AM EST documented as of this encounter Care Teams Vp Site Relationship Specialty Start Date End Date Rodrigo Saravia MD [address] [place] [address] PCP - General 02/09/11 07/15/17 Transplant, Coordinator [address] [place] [address] PCP - Lineworker 08/23/10 Mariana Miranda APRN-PAIN MANAGEMENT NURSE [address] [place] [address] PCP - General Nurse Practitioner - Family 07/16/17 11/19/23 Rodrigo Saravia MD [address] [place] [address] PCP - General Family Medicine 12/04/23 02/24/24 Cayla Velazquez CNP [address] [place] [address] PCP - General Certified Nurse Practitioner 02/25/24 Roberto Carlos Davey MD [address] [place] [address] Consulting Physician Nephrology 02/25/24 documented as of this encounter
--- OUTSIDE RECORDS SUMMARY | 2025-02-25 09:56 | XMS_ITS | Encounter Summary ---
Author Organization [facility] [employer] Address [address] [place] [address] Care Team Providers Care Basic Acoustic Analyst Name Role Phone Rodrigo Saravia MD Primary Care Provider + [phone] Transplant, Coordinator Unavailable Unavaila Mariana Linn TELEPHONE SERVICE REPRESENTATIVE-COMPUTER NETWORK AND SYSTEMS ENGINEER Primary Care Provider Unavailable Rodrigo Saravia MD Primary Care Provider [phone] Cayla Velazquez COMPUTER NETWORK AND SYSTEMS ENGINEER Primary Care Provider + Roberto Carlos Davey MD Unavailable [phone] Reason for Visit * Reason Onset Date Comments Insurance 07/12/2016 Encounter Details Date Type Department Care Team (Late st Contact Info) Description 07/12/2016 Telephone Comprehensive Transplant Center Brain [facility] Sp[facility] [address] [place] [id number] Renata Noble Insurance Social History Tobacco Use Types Packs/Day Years [...] 03/08/2025 11:30 AM EDT Telemedicine Bariatric Surgery [facility] Outpatient Care [address] [phone] Bina Sheets, RD [address] [phone] documented as of this encounter Visit Diagnoses Not on filedocumented in this encounter Additional Health Concerns Infection Onset Date Last Indicated Resolved Time COVID-19 Suspected 12/26/2019 12/26/2019 0 9:17 AM EDT COVID-19 Suspected 06/21/2020 06/21/2020 1 4:17 AM EST documented as of this encounter Care Teams Basic Acoustic Analyst Relationship Specialty Start Date End Date Rodrigo Saravia MD [address] [place] [address] PCP - General 02/09/11 07/15/17 Transplant, Coordinator [address] [place] [address] PCP - Green Material Value Added Assessor 08/23/10 Mariana Miranda APRN-COMPUTER NETWORK AND SYSTEMS ENGINEER [address] [place] [address] PCP - General Nurse Practitioner - Family 07/16/17 11/19/23 Rodrigo Saravia MD [address] [place] [address] PCP - General Family Medicine 12/04/23 02/24/24 Cayla Velazquez CNP [address] [place] [address] PCP - General Certified Nurse Practitioner 02/25/24 Roberto Carlos Davey MD [address] [facility] [place] [address] Consulting Physician Nephrology 02/25/24 documented as of this encounter
--- OUTSIDE RECORDS SUMMARY | 2025-02-25 10:16 | XMS_ITS | CCD ---
Author Organization [facility] ion Partnership [facility] Care Team Providers Care Automatic Steel Tie Adjuster Name Role Phone UNKNOWN, PROVIDER Unavailable Unavailable [...] UNKNOWN, PROVIDER Unavailable Unavailable Transplant, Coordinator Unavailable [phone] Ruben, Geovanna A Unavailable FOSTERARI Unavailable Unavailable FOSTER, ARI Unavailable Unavailable FOSTER, ARI Unavailable Unavailable AVERY, ROSY L Unavailable Unavailable AVERY, ROSY L Unavailable Unavailable SELF, SELF Unavailable Unavailable AVERY, ROSY L Unavailable Unavailable AVERY, ROSY L Unavailable Unavailable AVERY, ROSY L Unavailable Unavailable SELF, SELF Unavailable Unavailable FOSTER, ARI Unavailable Unavailable FOSTER, ARI Unavailable Unavailable JONES, NARGIS Unavailable Unavailable JONES, NARGIS Unavailable Unavailable Ruben, Geovanna A Primary Care Unavailable Familia Stringer Attending Unavailable Transplant, Coordinator Unavailable [phone] Ruben CEMENTER HAND-MANAGER DISH, Geovanna A Primary Care Provide r Transplant, Coordinator Unavailable Transplant, Coordinator Unavailable Trubachik CEMENTER [facility], [facility] A Primary Care Provide r Trubachik MANAGER DISH, [facility] Shu Primary Care Provider Trubachik CEMENTER [facility], Geovanna A Primary Care Provide r JAYSHREE VILCHIS Attending Unavailable TRUBACHIK, GEOVANNA SHU Primary Care Unavailable JAYSHREE VILCHIS Attending Unavailable TRUBACHIK, GEOVANNA SHU Primary Care Unavailable CHARLEY PASTRANA Attending Unavailable TRUBACHIK, GEOVANNA SHU Primary Care Unavailable TRUBACHIK, GEOVANNA SHU Primary Care Unavailable MARY MOREIRA Attending Unavailable Transplant, Coordinator Unavailable Trubachik CEMENTER [facility], [facility] A Primary Care Provide r Transplant, Coordinator Unavailable [phone] Trubachik CEMENTER [facility], [facility] A Primary Care Provide r Transplant, Coordinator Unavailable Trubachik CEMENTER [facility], [facility] Primary Care Provider Unavailable Transplant, Coordinator Unavailable [phone] Rodrigo Saravia MD Primary Care Provider [phone] Rodrigo Saravia MD Primary Care Provider [phone] TRUBACHIK, GEOVANNA Primary Care Unavailable SELF, SELF Referring Unavailable TRUBACHIK, GEOVANNA Attending Unavailable SELF, SELF Referring Unavailable KHAVARI, FERESHTE Attending Unavailable KHAVARI, FERESHTE Primary Care Unavailable SELF, SELF Referring Unavailable KHAVARI, FERESHTE Attending Unavailable TRUBACHIK, GEOVANNA Primary Care Unavailable BARK, JAVAN Referring Unavailable BARK, JAVAN Attending Unavailable TRUBACHIK, GEOVANNA Primary Care Unavailable BARK, JAVAN Attending Unavailable TRUBACHIK, GEOVANNA Referring Unavailable TYCHONIEVANICH, LIZA Attending Unavailabl e TYCHONIEVICH, LIZA Referring Unavailabl e TYCHONIEVICH, LIZA Referring Unavailabl e TYCHOADELA, LIZA Attending Unavailabl ILIA Bennett Attending Unavailable TRUBACHIK, GEOVANNA Primary Care Unavailable TRUBACHIK, GEOVANNA Primary Care Unavailable BARK, JAVAN E Referring Unavailable BARK, JAVAN E Attending Unavailable TRUBACHIK, GEOVANNA Primary Care Unavailable BARK, JAVAN E Referring Unavailable BARK, JAVAN E Attending Unavailable Rohrbacher TAMY [facility] Primary Care Provider Roberto Carlos Davey MD Unavailable ROHRBACHER, CAYLA Primary Care Unavailable GRISELDA GALLEGOS Attending Unavailable SELF, SELF Referring Unavailable LIZA PENN Attending Unavaila ble ROHRBACHER, CAYLA Primary Care Unavailable ROHRBACHER, CAYLA Referring Unavailable ROHRBACHER, CAYLA Primary Care Unavailable KHAVARI, FERESHTE Referring Unavailable ROHRBACHER, CAYLA Referring Unavailable CAYLA GONZALEZ Attending Unavailable ROHRBACHER, [facility] Primary Care Unavailable ROHRBACHER, [facility] Primary Care Unavailable LIZA PENN Attending Unavaila ble SELF, SELF Referring Unavailable SELF, SELF Referring Unavailable KHAVARI, FERESHTE Primary Care Unavailable SELF, SELF Referring Unavailable GRISELDA GALLEGOS Attending Unavailable LINDARBACHER, [facility] Primary Care Unavailable LIZA PENN Attending Unavaila ble ROHRBACHER, [facility] Primary Care Unavailable SELF, SELF Referring Unavailable LIZA PENN Attending Unavaila ble TRUBACHIK, GEOVANNA Referring Unavailable KHAVARI, FERESHTE Primary Care Unavailable KHAVARI, FERESHTE Primary Care Unavailable TOSHIA ANNE-MARIE Referring Unavailable ANNE-MARIE POPE Attending Unavailable GRISELDA GALLEGOS Attending Unavailable KHAVARI, FERESHTE Primary Care Unavailable KHAVARI, FERESHTE Referring Unavailable LINDARBACHER, CAYLA Referring Unavailable LIZA PENN Attending Unavaila ble ROHRBACHER, CAYLA Primary Care Unavailable SELF, SELF Referring Unavailable GRISELDA GALLEGOS Attending Unavailable KHAVARI, FERESHTE Primary Care Unavailable ROHRBACHER, CAYLA Primary Care Unavailable SALBDAOR LAWRENCE Attending Unavailable ROHRBACHER, CAYLA Referring Unavailable ROHRBACHER, CAYLA Primary Care Unavailable SAM WEISS Attending Unavailable SELF, SELF Referring Unavailable KELSEY LOZANO Attending Unavailable BRETHAUER, GRISELDA A Referring Unavailable CAYLA VELAZQUEZ Primary Care Unavailable SELF, SELF Referring Unavailable LINNAUER, GRISELDA A Attending Unavailable NATHAN [facility] Care Unavailable LINNAUER, GRISELDA A Referring Unavailable LINDARBACHER, [facility] Care Unavailable KELSEY LOZANO Attending Unavailable LINNAUER, GRISELDA A Referring [facility] Care Unavailable ISABELL FRANK Referring Unavailable ISABELL FRANK Attending Unavailable BAUDILIOR, [facility] Care Unavailable CARYNTHAUER, GRISELDA A Admitting Unavailable LINNAUER, GRISELDA A Attending Unavailable CONSULT, NEPHROLOGY - TRANSPLANT (MED) Consultin g Unavailable RODRIGO SARAVIA Primary Care Unavailable Allergies Allergy Classification Reported Allergen(s) Allergy Type Date of Onset Reaction(s) Facility (20 sources) *Seasonal Propensity to adverse reactions to substance 04-21-2021 [facility] Nose [facility] (20 sources) Non-steroidal anti-inflammator y agent Propensity to adverse reactions to drug 04-16-2023 [facility] Medications Current Medications Medication Drug Class(es) Dates Sig (Normalized) Sig (Original) acyclovir 0.05 mg/mg topical ointment (5 sources) Herpesvirus Nucleoside Analog DNA Polymerase Inhibitor, Herpes Simplex Virus Nucleoside Analog DNA Polymerase Inhibitor, Herpes Zoster Virus Nucleoside Analog DNA Polymerase Inhibitor Start: 03-28-2018 acyclovir 5 % Ointment Apply topically to all lesions 6 times daily X 7 days. 1 Tube 0 03/28/2018 Active [id number] 200 actuat albuterol 0.09 mg/actuat metered dose [...] daily when skin flared 60 g 1 04/24/2024 Active Start: 04-01-2020 End: 12-04-2023 Alclometasone Dipropionate [...] without breaks if needed 60 g 1 04/24/2024 Active Start: 04-01-2020 End: 12-04-2023 ketoconazole 2 [...] 180 tablet 0 12/10/2022 Active polymyxin b 65981 unt/ml / trimethoprim 1 mg/ml ophthalmic solution [...] the eye(s) every four hours polymyxin b-trimethoprim 23687-0.1 UNIT/ML-% Solution ophthalmic solution Place 1 drop in both eyes every 4 hours for 7 days. 10 mL 0 03/02/2022 03/09/2022 Active sucralfate 1000 mg oral tablet (13 sources) Aluminum Complex Start: 03-23-2024 End: 06-25-2024 [...] Active tamsulosin hydrochloride 0.4 mg oral capsule (7 sources) alpha-Adrenergic Matthew Start: 04-21-2024 take 1 [...] 3 g, Intravenous, Administer over 30 Minutes, WATER SYSTEM OPERATOR TO PROCEDURE, 1 dose, Starting on Sat03/27/24 [...] CONTINUOUS, Starting on Sat03/27/24 at 0000, Until 03/28/24 at 1526 calcium citrate 1040 mg oral [...] Discontinued Flintstones Complete 18 MG Chew Tab (11 sources) Start: 03-27-2024 Flintstones Complete 18 MG [...] DAILY (Solid Organ Transplant), First dose on 03/23/24 at 2000, Until Discontinued, May be administered via a nasogastric tube (minimum 8 Guyanese, 1.7 mm interior diameter); oral suspension should [...] Start: 09-18-2017 take 2 tablets by mo [facility] every twelve hours mycophenolate sodium (generic) [...] Start: 04-29-2015 take 1 tablet by bernice every twelve hours Omeprazole [address] take 20 mg by mouth every 12 hours. 04/29/2015 Active oxyCODONE hydrochloride 5 mg oral tablet (3 sources) Opioid Agonist Start: 03-25-2024 End: 09-28-2024 take 1 tablet by mouth every six [...] 0 12/10/2022 01/09/2023 Active polyethylene glycol 3350 32138 mg powder for oral solution (7 sources) [...] Start: 08-22-2020 take 2 tablets by mo coh once daily cyanocobalamin 500 MCG tablet Take 2 tablets by mouth daily. 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] Onset: 8 02-11-2018 Episodic Anxiety disorders (20 sources) Anxiety disorder; 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: [Anxiety disorder, unspecified] Onset: 7 02-19-2017 Chronic Cardiac and circulatory congenital anomalies (3 sources) Patent foramen ovale; 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: [PFO (patent foramen ovale)] Onset: 4 02-25-2024 Chronic Chronic kidney disease (20 sources) End stage renal disease; 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: [History of renal transplant] Onset: 7 Resolved: 2 09-24-2016 Chronic Deficiency and other anemia (1 source) Hemoglobin [...] Onset: 3 Episodic Miscellaneous mental health disorders (1 source) Lack or loss of sexual desire; 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] Chronic Mood disorders (20 sources) Depressive disorder; Translations: [Depression] 02-19-2017 Chronic Mood disorders (20 sources) Mood disorders; Translations: [Depression, unspecified] Onset: 7 Resolved: 4 11-30-2021 Neoplasms of unspecified nature or uncertain behavior (1 source) Neoplasm of uncertain behavior of skin; Translations: [Neoplasm of uncertain behavior of skin] 05-28-2023 Episodic Nutritional deficiencies (20 sources) Vitamin D deficiency; Translations: [Vitamin D deficiency, unspecified] Onset: 9 Resolved: 0 04-26-2020 Chronic Nutritional deficiencies (20 sources) Iron deficiency; Translations: [Iron deficiency] Onset: 9 Resolved: 0 04-26-2020 Episodic Open wounds of extremities (4 sources) Laceration [...] sources) Taking high risk medication; Translations: [Other assisted (current) drug therapy] Episodic Other aftercare (1 source) Long-term current use of immunosuppressive drug; Translations: [Other terminal make up operator (current) drug therapy] Episodic Other aftercare (1 [...] Translations: [Other follow-up examination] 04-07-2024 Episodic Other and unspecified benign neoplasm (1 source) Senile angioma; Translations: [Hemangioma of skin and subcutaneous tissue] 05-28-2023 Episodic Other and unspecified benign neoplasm (1 source) Melanocytic nevus of lower limb; Translations: [Melanocytic nevi of unspecified lower limb, including hip] 05-28-2023 Episodic Other and unspecified benign neoplasm (1 source) Melanocytic nevus of trunk; Translations: [Melanocytic nevi of trunk] 05-28-2023 Episodic Other and unspecified benign neoplasm [...] Hydronephrosis; Translations: [Unspecified hydronephrosis] 03-27-2024 Episodic Other ear and sense organ disorders (1 source) Impacted cerumen in right ear; Translations: [Impacted cerumen, right ear] 12-04-2023 Episodic Other eye disorders (1 source) Red right eye; Translations: [Other specified disorders of eye and adnexa] Episodic Other gastrointestinal disorders (2 sources) Intestinal bypass and anastomosis status; 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] Onset: 4 Chronic Other gastrointestinal disorders (20 sources) History of sleeve gastrectomy; Translations: [Bariatric surgery status] Onset: 0 09-03-2021 Episodic Other gastrointestinal disorders (2 sources) History of bypass of stomach; Translations: [Bariatric surgery status] 02-24-2024 Episodic Other gastrointestinal disorders (2 sources) Bariatric surgery status; Translations: [Bariatric surgery status] 02-24-2024 Episodic Other [...] nutritional; endocrine; and metabolic disorders (1 source) Body mass index 30+ - obesity; Translations: [Obesity, unspecified] 05-29-2024 Chronic Other nutritional; endocrine; and metabolic disorders [...] nutritional and metabolic disease] 04-23-2024 Episodic Other skin disorders (1 source) Lentiginosis; [...] postprocedural states] 04-23-2024 Episodic Residual codes; unclassified (1 source) At risk for imbalanced nutrition, less than body requirements; Translations: [Other specified personal risk factors, not elsewhere classified] 05-21-2024 Episodic Skin and subcutaneous tissue infections (2 [...] 8 Unclassified (1 source) Knee Pain / [id number]() Onset: 8 Unclassified (1 source) Obesity, class 1; Translations: [Obesity, class 1] Onset: 4 Past or Other Problems Problem Classification Problem Date Documented Date Episodic/Chronic Abdominal hernia (20 sources) Umbilical hernia without obstruction AND without gangrene ; Translations: [Umbilical hernia] Onset: 04-24-2017 Resolved: 01-05-2020 07-16-2017 Episodic Abdominal pain (20 sources) Right lower quadrant pain; Translations: [Right lower quadrant pain] Onset: 02-19-2017 Resolved: 02-20-2017 02-20-2017 Episodic Administrative/social admission (20 sources) Patient encounter status; Translations: [Dietary counseling and surveillance] Onset: 04-02-2019 Resolved: 01-05-2020 01-05-2020 Episodic Appendicitis and other appendiceal conditions (20 sources) Appendicitis; Translations: [Unspecified appendicitis] Onset: 12-26-2019 Resolved: 01-05-2020 01-05-2020 Episodic Diabetes mellitus without complication (20 sources) Prediabetes; Translations: [Prediabetes] Onset: 04-02-2019 Resolved: 04-29-2020 04-29-2020 Episodic Fluid and electrolyte disorders (4 sources) Hyperkalemia; Translations: [Hyperkalemia] Onset: 04-21-2024 03-27-2024 Episodic Genitourinary congenital anomalies (20 sources) Multiple congenital cysts of kidney; 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] Onset: 09-24-2016 Resolved: 03-02-2022 02-19-2017 Chronic Genitourinary symptoms and ill-defined conditions (5 sources) Retention of urine; Translations: [Retention of urine, unspecified] Onset: 04-21-2024 04-06-2024 Episodic Intestinal obstruction without hernia (20 sources) Partial obstruction of small bowel; Translations: [Partial intestinal obstruction, unspecified as to cause] Onset: 02-28-2019 Resolved: 07-07-2019 07-07-2019 Episodic Mycoses (20 sources) Tinea cruris; Translations: [Tinea cruris] Onset: 02-11-2018 Resolved: 03-04-2019 02-11-2018 Episodic Nausea and vomiting (3 sources) Nausea; Translations: [Nausea] Onset: 03-23-2024 03-27-2024 Episodic Other aftercare (2 sources) Other terminal make up operator (current) drug therapy; Translations: [Other assisted (current) drug therapy] Onset: 04-21-2024 Episodic Other connective tissue disease (2 sources) Pain in right foot; Translations: [Pain in right foot] Onset: 04-30-2023 Episodic Other diseases of kidney and ureters (2 sources) Unspecified hydronephrosis; Translations: [Unspecified hydronephrosis] Onset: 04-21-2024 Episodic Other eye disorders (2 sources) Ocular pain, right eye; Translations: [Ocular pain, right eye] Onset: 04-20-2022 Episodic Other lower respiratory disease (20 sources) Snoring; Translations: [Snoring] Resolved: 07-07-2019 04-15-2017 Episodic Other nervous system disorders (2 sources) Personal history of other diseases of the nervous system and sense organs; Translations: [Personal history of other diseases of the nervous system and sense organs] Onset: 04-23-2024 Episodic Other non-traumatic joint disorders (2 sources) [...] Episodic Other nutritional; endocrine; and metabolic disorders (11 sources) Weight increased; Translations: [Abnormal weight gain] Onset: 04-02-2019 Resolved: 01-05-2020 01-05-2020 Episodic Other nutritional; endocrine; and metabolic disorders (2 sources) Personal history of other endocrine, nutritional and metabolic disease; Translations: [Personal history of other endocrine, nutritional and metabolic disease] Onset: 04-23-2024 Episodic Other screening for suspected conditions (not mental disorders or infectious disease) (13 sources) Blood chemistry abnormal; Translations: [Abnormal finding of blood chemistry, unspecified] Onset: 04-21-2024 Episodic Residual codes; unclassified (5 sources) Patient [...] states; Translations: [Other specified postprocedural states] Onset: 04-23-2024 Episodic Residual codes; unclassified (2 sources) Acquired absence of kidney; Translations: [Acquired absence of kidney] Onset: 02-25-2024 Episodic Residual codes; unclassified (2 sources) Localized edema; Translations: [Localized edema] Onset: 02-25-2024 Episodic Residual codes; unclassified (2 sources) Acquired absence of stomach [part of]; Translations: [Acquired absence of stomach (part of)] Onset: 02-25-2024 Episodic Screening and history of mental health [...] >2000 and/or presence of CREG antibodies. Normal [facility] Comment on above: Result Comment: Some of the reagents used for testing in the Clinical Histocompatibility Laboratory have yet to be approved by the FDA. Our certification by CLIA to perform high complexity tests allows us to use these reagents in the context of a stringent QC program, and obviates the need for FDA approval.Testing performed by the [facility] Clinical Histocompatibility Laboratory. [facility] number: [id number]. CLIA number: [id number], Director: Everton Hernandez, PhD, F([facility]). Performed By: #### C Tone, IPB, MGO, CHM7 #### [facility] (DEFAULT) [address] [place] [address] [id number] ANTIBODY SPECIFICITY INTERPRETATION Detected Normal [facility] Comment on above: Performed By: #### C A, IPB, MGO, CHM7 #### [facility] (DEFAULT) [address] [place] [address] [id number] CLASS I SPECIFICITIES C:18 Normal [facility] Comment on above: Performed By: #### C A, IPB, MGO, CHM7 #### [facility] (DEFAULT) [address] [place] [address] [id number] CLASS II SPECIFICITIES Not detected Normal [facility] Comment on above: Performed By: #### C A, IPB, MGO, CHM7 #### [facility] (DEFAULT) [address] [place] [address] cPRA 1 % High 0 [facility] Comment on above: Performed By: #### TERI Lamar MGO, CHM7 #### [facility] (DEFAULT) [address] [place] [address] BK VIRUS DNA QN, PCR, PLASMA on 04-21-2024 Bk Viral Load, Plasma <500 Normal <500 [facility] Comment on above: Order Comment: To be collected on POD1 Performed By: #### TERI Lamar MGO, CHM7 #### [facility] (DEFAULT) [address] [place] [address] CBC,PLATELETSon 04-21-2024 Erythrocyte distribution width (RBC) [Ratio] 12.3 % 10.9 - 14.3 % [facility] Hematocrit (Bld) [Volume fraction] 30.7 % Low 39.6 - 48.8 % [facility] Hemoglobin (Bld) [Mass/Vol] 9.5 g/dL Low 13.4 - 16.8 g/dL [facility] Interpretation and review of laboratory results Abnormal [facility] MCH (RBC) [Entitic mass] 29.0 pg 26.1 - 33.3 pg [facility] MCHC (RBC) [Mass/Vol] 30.9 g/dL Low 31.9 - 36.5 g/dL [facility] MCV (RBC) [Entitic vol] 93.6 fL 79.0 - 94.5 fL [facility] Platelet mean volume (Bld) [Entitic vol] 12.4 fL High 8.7 - 12.3 fL [facility] Platelets (Bld) [#/Vol] 175 10*3/uL 146 - 337 K/uL [facility] RBC (Bld) [#/Vol] 3.28 10*6/uL Low [facility] WBC (Bld) [#/Vol] 6.63 10*3/uL 3.73 - 10. 10 K/uL [facility] Hematocrit (Bld) [Volume fraction] 30.7 % Low 39.6-48.8 [facility] Comment on above: Performed By: #### C 7C #### [facility] (DEFAULT) [address] [place] [address]87 Hemoglobin (Bld) [Mass/Vol] 9.5 g/dL Low 13.4-16.8 [facility] Comment on above: Performed By: #### C 7C #### [facility] (DEFAULT) [address] [place] [id number] MCV (RBC) [Entitic vol] 93.6 fL Normal 79.0-94.5 [facility] Comment on above: Performed By: #### C 7C #### [facility] (DEFAULT) [address] [place] [address] [phone] Mean Cell Hgb 29.0 pg Normal 26.1-33.3 [facility] Comment on above: Performed By: #### C 7C #### [facility] (DEFAULT) [address] [place] [address] 72760 Mean Cell Hgb Conc 30.9 g/dL Low 31.9-36.5 [facility] Comment on above: Performed By: #### C 7C #### [facility] (DEFAULT) [address] [place] [address]95 Platelet mean volume (Bld) [Entitic vol] 12.4 fL High 8.7-12.3 [facility] Comment on above: Performed By: #### C 7C #### [facility] (DEFAULT) [address] [place] [address] [id number] Platelets (Bld) [#/Vol] 175 10*3/uL Normal 146-337 [facility] Comment on above: Performed By: #### C 7C #### [facility] (DEFAULT) [address] [place] [address] [id number] RBC (Bld) [#/Vol] 3.28 10*6/uL Low 4.38-5.83 [facility] Comment on above: Performed By: #### C 7C #### [facility] (DEFAULT) [address] [place] [address] RBC Distribution 12.3 % Normal 10.9-14.3 [facility] Comment on above: Performed By: #### C 7C #### [facility] (DEFAULT) [address] [place] [address] WBC (Bld) [#/Vol] 6.63 10*3/uL Normal 3.73-10.10 [facility] Comment on above: Performed By: #### C 7C #### [facility] (DEFAULT) [address] [place] [address] 12507 CHEM 7 (LYTES,BUN,CREA,GLUC) on 04-21-2024 Anion gap [Moles/Vol] 13 mmol/L 7 - 17 mmol/L [facility] Chloride [Moles/Vol] 106 mmol/L 98 - 10 8 mmol/L [facility] CO2 [Moles/Vol] 24 mmol/L 21 - 31 mmol/L [facility] Creatinine [Mass/Vol] 2.35 mg/dL High 0.70 - 1.30 mg/dL [facility] eGFR, CKD-EPI, Male 32 Low - PINF [facility] Comment on above: Reported eGFR is bas ed on the CKD-EPI 2020 equation using creatinine, age, and sex. Glucose [Mass/Vol] 99 mg/dL 70 - 99 mg/dL [facility] Interpretation and review of laboratory results Abnormal [facility] Osmolality Calc [Osmolality] 296 [facility] Potassium [Moles/Vol] 4.6 mmol/L 3.5 - 5.0 mmol/L [facility] Sodium [Moles/Vol] 138 mmol/L 135 - 145 mmol/L [facility] Urea nitrogen [Mass/Vol] 29 mg/dL High 7 - 25 mg/dL [facility] [facility] Urea nitrogen/Creatinine [Mass ratio] 12 mg/mg [facility] Anion gap [Moles/Vol] 13 mmol/L Normal 7-17 [facility] Comment on above: Performed By: #### C A, IPB, MGO, CHM7 #### [facility] (DEFAULT) [address] [place] [address] 52953 Chloride [Moles/Vol] 106 mmol/L Normal 98-108 [facility] Comment on above: Performed By: #### C A, IPB, MGO, CHM7 #### [facility] (DEFAULT) [address] [place] [address] 78710 CO2 [Moles/Vol] 24 mmol/L Normal 21-31 [facility] Comment on above: Performed By: #### Pamela A, IPB, MGO, CHM7 #### [facility] (DEFAULT) [address] [place] [address] 05078 Creatinine [Mass/Vol] 2.35 mg/dL High 0.70-1.30 [facility] Comment on above: Performed By: #### Pamela A, IPB, MGO, CHM7 #### [facility] (DEFAULT) [address] [place] [address] 90115 GFR/1.73 sq M.predicted among non-blacks MDRD (S/P/Bld) [Vol rate/Area] 32 mL/min/{1.73_m2} Low >=60 [facility] Comment on above: Result Comment: Repo rted eGFR is based on the CKD-EPI 2020 equation using creatinine, age, and sex. Performed By: #### C A, IPB, MGO, CHM7 #### [facility] (DEFAULT) [address] [place] [address] 23888 Glucose [Mass/Vol] 99 mg/dL Normal 70-99 [facility] Comment on above: Performed By: #### C A, IPB, MGO, CHM7 #### [facility] (DEFAULT) [address] [place] [address] 66537 Osmolality [Osmolality] 296 mosm/kg Normal 278-305 [facility] Comment on above: Performed By: #### TERI Lamar MGO, CHM7 #### [facility] (DEFAULT) [address] [place] [address] 38181 Potassium [Moles/Vol] 4.6 mmol/L Normal 3.5-5.0 [facility] Comment on above: Performed By: #### TERI Lamar, MINDY, CHM7 #### [facility] (DEFAULT) [address] [place] [address] 33307 Sodium [Moles/Vol] 138 mmol/L Normal 135-145 [facility] Comment on above: Performed By: #### TERI Lamar MGO, CHM7 #### [facility] (DEFAULT) [address] [place] [address] 17308 Urea nitrogen [Mass/Vol] 29 mg/dL High 7-25 [facility] Comment on above: Performed By: #### TERI Lamar MGO, CHM7 #### [facility] (DEFAULT) [address] [place] [address] 85179 Urea nitrogen/Creatinine [Mass ratio] 12 mg/mg Normal [facility] Comment on above: Performed By: #### TERI Lamar MGO, CHM7 #### [facility] (DEFAULT) [address] [place] [address] 05884 CMV BY PCR, QUANTITATIVE, BL OODon 04-21-2024 CMV By Pcr, Iu/Ml, Plasma <50 Normal <50 [facility] Comment on above: Order Comment: To be collected on POD1 Performed By: #### TERI Lamar MGO, CHM7 #### [facility] (DEFAULT) [address] [place] [address] 49989 POCT URINE DIPSTICK AUTOMATE Don 04-21-2024 Amorphous sediment LM Ql (Urine sed) [facility] Appearance (U) clear [facility] Bacteria LM Ql (Urine sed) [facility] Bilirubin Ql (U) Negative [facility] Casts LM.LPF (Urine sed) [#/Area] [facility] Color (U) yellow [facility] Crystals LM Nom (Urine sed) [facility] Epithelial cells.squamous LM.HPF (Urine sed) [#/Area] [facility] Flow cytometry specialist review Vikas (Unsp spec) [Interp] [facility] Glucose Auto test strip (U) [Mass/Vol] Negative mg/dL [facility] Ketones [Mass/Vol] Negative mg/dL [facility] Leukocyte esterase Qn (U) [facility] Leukocyte esterase Test strip Ql (U) Negative [facility] Microscopic observation Gram stain Nom (Bronch spec) [facility] Nitrite Ql (U) Negative [facility] pH (U) 6.0 [pH] 5 - 7 [facility] Protein Ql (U) Negative mg/dL [facility] RBC LM.HPF (Urine sed) [#/Area] [facility] RBC Ql (U) Negative [facility] Specific gravity (U) [Rel density] 1.010 1.001 - 1.035 [facility] Transitional cells LM Ql (Urine sed) [facility] Urobilinogen Qn (U) 0.2 [facility] WBC LM.HPF (Urine sed) [#/Area] [facility] URINE PROTEIN/CREA RATIO, RA LOLISOMon 04-21-2024 Creatinine (24H U) [Mass/Vol] 73.10 mg/dL [facility] Protein Unsp time (U) [Mass/Vol] 4 mg/dL [facility] Protein/Creatinine (U) [Mass ratio] 0.055 mg/mg [facility] Creatinine (U) [Mass/Vol] 73.10 mg/dL Normal [facility] Comment on above: Performed By: #### C A, IPB, MGO, CHM7 #### [facility] (DEFAULT) [address] [place] [address] 81952 Prot/Creat Ratio 0.055 mg/mg Normal [facility] Comment on above: Performed By: #### C A, IPB, MGO, CHM7 #### [facility] (DEFAULT) [address] [place] [address] 23965 Protein Ql (U) 4 mg/dL Normal [facility] Comment on above: Performed By: #### C A, IPB, MGO, CHM7 #### [facility] (DEFAULT) [address] [place] [address] 25296 US RENAL TRANSPLANT SCANon 1 US RENAL [...] tract symptoms 4. No pelvic ascites Normal [facility] US for transplanted kidney l imitedon 04-21-2024 [...] ascites in the visualized images. RADIOLOGY Hayder Orourke, CORNEL - 04/21/2024 EXAM: US RENAL TRANSPLANT SCAN, [...] urinary tract symptoms 4. No pelvic ascites [facility] Radiology Study observation (narrative) [facility] US for transplanted kidney l imitedOrdered By: Hayder Orourke on 04-21-2024 [facility] Work Phone: PLACEMENT NEPHROSTOMY CATHET ER PERCUTANEOUS [...] medication(s), I spent 41 minutes of continuous kjel-ld-nluy time with the patient. COMPARISON: Transplant kidney [...] passage of contrast into the bladder. Transplant cable worker helper was contacted during the case and decision [...] - Arrived (more content not included)... Normal [facility] CBC,PLATELETSon 03-28-2024 Erythrocyte distribution width (RBC) [Ratio] 12.5 % 10.9 - 14.3 % [facility] Hematocrit (Bld) [Volume fraction] 23.3 % Low 39.6 - 48.8 % [facility] Hemoglobin (Bld) [Mass/Vol] 7.5 g/dL Low 13.4 - 16.8 g/dL [facility] Interpretation and review of laboratory results Abnormal [facility] MCH (RBC) [Entitic mass] 30.0 pg 26.1 - 33.3 pg [facility] MCHC (RBC) [Mass/Vol] 32.2 g/dL 31.9 - 36.5 g/dL [facility] MCV (RBC) [Entitic vol] 93.2 fL 79.0 - 94.5 fL [facility] Platelet mean volume (Bld) [Entitic vol] 11.6 fL 8.7 - 12.3 fL [facility] Platelets (Bld) [#/Vol] 136 10*3/uL Low 146 - 337 K/uL [facility] RBC (Bld) [#/Vol] 2.50 10*6/uL Low [facility] WBC (Bld) [#/Vol] 5.12 10*3/uL 3.73 - 10. 10 K/uL [facility] Hematocrit (Bld) [Volume fraction] 23.3 % Low 39.6-48.8 [facility] Comment on above: Performed By: #### C TERI Wayne MGO, CHM7 #### [facility] (DEFAULT) [address] [place] [address] 23286 Hemoglobin (Bld) [Mass/Vol] 7.5 g/dL Low 13.4-16.8 [facility] Comment on above: Performed By: #### C TERI Wayne MGO, CHM7 #### [facility] (DEFAULT) [address] [place] [address] MCV (RBC) [Entitic vol] 93.2 fL Normal 79.0-94.5 [facility] Comment on above: Performed By: #### TERI Lamar MGO, CHM7 #### [facility] (DEFAULT) [address] [place] [address] 21325 Mean Cell Hgb 30.0 pg Normal 26.1-33.3 [facility] Comment on above: Performed By: #### Pamela Wayne, IPB, MGO, CHM7 #### [facility] (DEFAULT) [address] [place] [address] 86180 Mean Cell Hgb Conc 32.2 g/dL Normal 31.9-36.5 [facility] Comment on above: Performed By: #### Pamela Wayne, IPB, MGO, CHM7 #### [facility] (DEFAULT) [address] [place] [address] 28996 Platelet mean volume (Bld) [Entitic vol] 11.6 fL Normal 8.7-12.3 [facility] Comment on above: Performed By: #### Pamela Wayne, IPB, MGO, CHM7 #### [facility] (DEFAULT) [address] [place] [address] 62369 Platelets (Bld) [#/Vol] 136 10*3/uL Low 146-337 [facility] Comment on above: Performed By: #### Pamela Wayne, IPB, MGO, CHM7 #### [facility] (DEFAULT) [address] [place] [address] 87075 RBC (Bld) [#/Vol] 2.50 10*6/uL Low 4.38-5.83 [facility] Comment on above: Performed By: #### Pamela Wyane, IPB, MGO, CHM7 #### [facility] (DEFAULT) [address] [place] [address] 97265 RBC Distribution 12.5 % Normal 10.9-14.3 [facility] Comment on above: Performed By: #### Pamela Wayne, IPB, MGO, CHM7 #### [facility] (DEFAULT) [address] [place] [address] 74336 WBC (Bld) [#/Vol] 5.12 10*3/uL Normal 3.73-10.10 [facility] Comment on above: Performed By: #### Pamela A, IPB, MGO, CHM7 #### [facility] (DEFAULT) [address] [place] [address] CHEM 7 (LYTES,BUN,CREA,GLUC) on 03-28-2024 Anion gap [Moles/Vol] 13 mmol/L 7 - 17 mmol/L [facility] Chloride [Moles/Vol] 107 mmol/L 98 - 10 8 mmol/L [facility] CO2 [Moles/Vol] 23 mmol/L 21 - 31 mmol/L [facility] Creatinine [Mass/Vol] 2.15 mg/dL High 0.70 - 1.30 mg/dL [facility] eGFR, CKD-EPI, Male 35 Low - PINF [facility] Comment on above: Reported eGFR is bas ed on the CKD-EPI 2020 equation using creatinine, age, and sex. Glucose [Mass/Vol] 87 mg/dL 70 - 99 mg/dL [facility] Interpretation and review of laboratory results Abnormal [facility] Osmolality Calc [Osmolality] 300 [facility] Potassium [Moles/Vol] 4.8 mmol/L 3.5 - 5.0 mmol/L [facility] Sodium [Moles/Vol] 138 mmol/L 135 - 145 mmol/L [facility] Urea nitrogen [Mass/Vol] 41 mg/dL High 7 - 25 mg/dL [facility] Urea nitrogen/Creatinine [Mass ratio] 19 mg/mg [facility] Anion gap [Moles/Vol] 13 mmol/L Normal 7-17 [facility] Comment on above: Performed By: #### C Tone, IPB, MGO, CHM7 #### [facility] (DEFAULT) [address] [place] [address] Chloride [Moles/Vol] 107 mmol/L Normal 98-108 [facility] Comment on above: Performed By: #### C Tone, IPB, MGO, CHM7 #### [facility] (DEFAULT) [address] [place] [address] CO2 [Moles/Vol] 23 mmol/L Normal 21-31 [facility] Comment on above: Performed By: #### TERI Lamar MGO, CHM7 #### [facility] (DEFAULT) [address] [place] [address] 65466 Creatinine [Mass/Vol] 2.15 mg/dL High 0.70-1.30 [facility] Comment on above: Performed By: #### TERI Lamar MGO, CHM7 #### [facility] (DEFAULT) [address] [place] [address] 75682 GFR/1.73 sq M.predicted among non-blacks MDRD (S/P/Bld) [Vol rate/Area] 35 mL/min/{1.73_m2} Low >=60 [facility] Comment on above: Result Comment: Repo rted eGFR is based on the CKD-EPI 2020 equation using creatinine, age, and sex. Performed By: #### TERI Lamar MGO, SHAHNAZM7 #### [facility] (DEFAULT) [address] [place] [address] 56732 Glucose [Mass/Vol] 87 mg/dL Normal 70-99 [facility] Comment on above: Performed By: #### TERI Lamar MGO, CHM7 #### [facility] (DEFAULT) [address] [place] [address] 88698 Osmolality [Osmolality] 300 mosm/kg Normal 278-305 [facility] Comment on above: Performed By: #### TERI Lamar MGO, CHM7 #### [facility] (DEFAULT) [address] [place] [address] 23491 Potassium [Moles/Vol] 4.8 mmol/L Normal 3.5-5.0 [facility] Comment on above: Performed By: #### TERI Lamar, MGO, CHM7 #### [facility] (DEFAULT) [address] [place] [address] 88803 Sodium [Moles/Vol] 138 mmol/L Normal 135-145 [facility] Comment on above: Performed By: #### Pamela Wayne, IPB, MGO, CHM7 #### [facility] (DEFAULT) [address] [place] [address] 11602 Urea nitrogen [Mass/Vol] 41 mg/dL High 7-25 [facility] Comment on above: Performed By: #### Pamela Wayne, IPB, MGO, CHM7 #### [facility] (DEFAULT) [address] [place] [address] 32667 Urea nitrogen/Creatinine [Mass ratio] 19 mg/mg Normal [facility] Comment on above: Performed By: #### Pamela Wayne, IPB, MGO, CHM7 #### [facility] (DEFAULT) [address] [place] [address] 40354 MAGNESIUMon 03-28-2024 Magnesium [Mass/Vol] 1.7 mg/dL 1.6 - 2 .6 mg/dL [facility] Magnesium [Mass/Vol] 1.7 mg/dL Normal 1.6-2.6 [facility] Comment on above: Performed By: #### Pamela Wayne, JANEB, MGO, CHM7 #### [facility] (DEFAULT) [address] [place] [address] 13397 No Panel Informationon 03-28 Interpretation and review of laboratory results Normal [facility] PHOSPHATE, INORGANICon 03-28 Phosphate [Mass/Vol] 2.8 mg/dL 2.2 - 4 .6 mg/dL [facility] Phosphorous 2.8 mg/dL Normal 2.2-4.6 [facility] Comment on above: Performed By: #### Pamela Wayne, IPB, MGO, CHM7 #### [facility] (DEFAULT) [address] [place] [address] 13672 TACROLIMUS LEVEL, TROUGH (AL E DRUG LEVEL)on 03-28-2024 Tacrolimus (Bld) [Mass/Vol] 6.7 ng/mL Bone Marrow Transplant: 5.0-15.0 Kidney/Pancr eatic Transplant: 0 to 3 months: 8.0-10.0, 3 to 12 months: 6.0-8.0, >12 months: 4.0-6.0 [facility] Method performed is a chemiluminescent microparticle immunoasssay on the [employer] i2000. The range is based on experience at [facility] and users should be aware that target concentrations vary widely depending on concomitant therapy, time post-transplant, and desired degree of immunosuppression. [facility] CBC,PLATELETSon 03-27-2024 Erythrocyte distribution width (RBC) [Ratio] 12.5 % 10.9 - 14.3 % [facility] Hematocrit (Bld) [Volume fraction] 23.5 % Low 39.6 - 48.8 % [facility] Hemoglobin (Bld) [Mass/Vol] 7.5 g/dL Low 13.4 - 16.8 g/dL [facility] Interpretation and review of laboratory results Abnormal [facility] MCH (RBC) [Entitic mass] 30.4 pg 26.1 - 33.3 pg [facility] MCHC (RBC) [Mass/Vol] 31.9 g/dL 31.9 - 36.5 g/dL [facility] MCV (RBC) [Entitic vol] 95.1 fL High 79.0 - 94.5 fL [facility] Platelet mean volume (Bld) [Entitic vol] [facility] Comment on above: Not measured Platelets (Bld) [#/Vol] 128 10*3/uL Low 146 - 337 K/uL [facility] RBC (Bld) [#/Vol] 2.47 10*6/uL Low [facility] WBC (Bld) [#/Vol] 5.55 10*3/uL 3.73 - 10. 10 K/uL [facility] Hematocrit (Bld) [Volume fraction] 23.5 % Low 39.6-48.8 [facility] Comment on above: Performed By: #### C 7C #### [facility] (DEFAULT) [address] [place] [address] 27919 Hemoglobin (Bld) [Mass/Vol] 7.5 g/dL Low 13.4-16.8 [facility] Comment on above: Performed By: #### C 7C #### [facility] (DEFAULT) [address] [place] [address] 80345 MCV (RBC) [Entitic vol] 95.1 fL High 79.0-94.5 [facility] Comment on above: Performed By: #### C 7C #### [facility] (DEFAULT) [address] [place] [address] 45104 Mean Cell Hgb 30.4 pg Normal 26.1-33.3 [facility] Comment on above: Performed By: #### C 7C #### [facility] (DEFAULT) [address] [address] Mean Cell Hgb Conc 31.9 g/dL Normal 31.9-36.5 [facility] Comment on above: Performed By: #### C 7C #### [facility] (DEFAULT) [address] [address] Mean Platelet Volume Normal [facility] Comment on above: Result Comment: Not measured Performed By: #### C 7C #### [facility] (DEFAULT) [address] [address] Platelets (Bld) [#/Vol] 128 10*3/uL Low 146-337 [facility] Comment on above: Performed By: #### C 7C #### [facility] (DEFAULT) [address] [place] [address] 80413 RBC (Bld) [#/Vol] 2.47 10*6/uL Low 4.38-5.83 [facility] Comment on above: Performed By: #### C 7C #### [facility] (DEFAULT) [address] [place] [address] 67577 RBC Distribution 12.5 % Normal 10.9-14.3 [facility] Comment on above: Performed By: #### C 7C #### [facility] (DEFAULT) [address] [place] [address] WBC (Bld) [#/Vol] 5.55 10*3/uL Normal 3.73-10.10 [facility] Comment on above: Performed By: #### C 7C #### [facility] (DEFAULT) [address] [place] [address] CHEM 7 (LYTES,BUN,CREA,GLUC) on 03-27-2024 Anion gap [Moles/Vol] 12 mmol/L 7 - 17 mmol/L [facility] Chloride [Moles/Vol] 111 mmol/L High 98 - 10 8 mmol/L [facility] CO2 [Moles/Vol] 22 mmol/L 21 - 31 mmol/L [facility] Creatinine [Mass/Vol] 2.24 mg/dL High 0.70 - 1.30 mg/dL [facility] eGFR, CKD-EPI, Male 34 Low - PINF [facility] Comment on above: Reported eGFR is bas ed on the CKD-EPI 2020 equation using creatinine, age, and sex. Glucose [Mass/Vol] 92 mg/dL 70 - 99 mg/dL [facility] Interpretation and review of laboratory results Abnormal [facility] Osmolality Calc [Osmolality] 305 [facility] Potassium [Moles/Vol] 4.9 mmol/L 3.5 - 5.0 mmol/L [facility] Sodium [Moles/Vol] 140 mmol/L 135 - 145 mmol/L [facility] Urea nitrogen [Mass/Vol] 43 mg/dL High 7 - 25 mg/dL [facility] Urea nitrogen/Creatinine [Mass ratio] 19 mg/mg [facility] Anion gap [Moles/Vol] 12 mmol/L Normal 7-17 [facility] Comment on above: Performed By: #### C A, IPB, MGO, CHM7 #### [facility] (DEFAULT) [address] [place] [address] Chloride [Moles/Vol] 111 mmol/L High 98-108 [facility] Comment on above: Performed By: #### TERI Lamar MGO, CHM7 #### [facility] (DEFAULT) [address] [place] [address] 88982 CO2 [Moles/Vol] 22 mmol/L Normal 21-31 [facility] Comment on above: Performed By: #### TERI Lamar MGO CHM7 #### [facility] (DEFAULT) [address] [place] [address] 78088 Creatinine [Mass/Vol] 2.24 mg/dL High 0.70-1.30 [facility] Comment on above: Performed By: #### TERI Lamar MGO CHM7 #### [facility] (DEFAULT) [address] [place] [address] 19831 GFR/1.73 sq M.predicted among non-blacks MDRD (S/P/Bld) [Vol rate/Area] 34 mL/min/{1.73_m2} Low >=60 [facility] Comment on above: Result Comment: Repo rted eGFR is based on the CKD-EPI 2020 equation using creatinine, age, and sex. Performed By: #### TERI Lamar MGO CHM7 #### [facility] (DEFAULT) [address] [place] [address] 37236 Glucose [Mass/Vol] 92 mg/dL Normal 70-99 [facility] Comment on above: Performed By: #### TERI Lamar MGO, CHM7 #### [facility] (DEFAULT) [address] [place] [address] 36228 Osmolality [Osmolality] 305 mosm/kg Normal 278-305 [facility] Comment on above: Performed By: #### TERI Lamar MGO, CHM7 #### [facility] (DEFAULT) [address] [place] [address] 32622 Potassium [Moles/Vol] 4.9 mmol/L Normal 3.5-5.0 [facility] Comment on above: Performed By: #### Pamela Wayne, IPB, MGO, CHM7 #### [facility] (DEFAULT) [address] [place] [address] 65366 Sodium [Moles/Vol] 140 mmol/L Normal 135-145 [facility] Comment on above: Performed By: #### Pamela Wayne, IPB, MGO, CHM7 #### [facility] (DEFAULT) [address] [place] [address] 50202 Urea nitrogen [Mass/Vol] 43 mg/dL High 7-25 [facility] Comment on above: Performed By: #### Pamela Wayne, IPB, MGO, CHM7 #### [facility] (DEFAULT) [address] [place] [address] 04203 Urea nitrogen/Creatinine [Mass ratio] 19 mg/mg Normal [facility] Comment on above: Performed By: #### Pamela Wayne, IPB, MGO, CHM7 #### [facility] (DEFAULT) [address] [place] [address] GENERAL PROCEDUREon 03-27-20 [facility] Radiology Study observation (narrative) [facility] MAGNESIUMon 03-27-2024 Magnesium [Mass/Vol] 1.8 mg/dL 1.6 - 2 .6 mg/dL [facility] Magnesium [Mass/Vol] 1.8 mg/dL Normal 1.6-2.6 [facility] Comment on above: Performed By: #### Pamela Wayne, IPB, MGO, CHM7 #### [facility] (DEFAULT) [address] [place] [id number] No Panel Informationon 03-27 Interpretation and review of laboratory results Normal [facility] PHOSPHATE, INORGANICon 03-27 Phosphate [Mass/Vol] 2.7 mg/dL 2.2 - 4 .6 mg/dL [facility] Phosphorous 2.7 mg/dL Normal 2.2-4.6 [facility] Comment on above: Performed By: #### TERI Lamar MGO, CHM7 #### [facility] (DEFAULT) [address] [place] [address] PREPARE TO TRANSFUSE RED BLO OD CELLSon 03-27-2024 ABO/RH(D) TYPE Positive [facility] BLOOD COMPONENT TYPE Red Cells, Leukoreduced [facility] EXPIRATION DATE [id number] [facility] Product ABO/RH(D) Positive [facility] Product ABO/RH(D) NUMBER 5100 [facility] PRODUCT CODE [id number] [facility] UNIT NUMBER [id number] [facility] UNIT STATUS Available [facility] PT,INR,PTTon 03-27-2024 aPTT Coag (PPP) [Time] 33.0 s [facility] INR Coag (Bld) [Relative time] 1.1 {INR} 0.9 - 1.1 [facility] Interpretation and review of laboratory results Abnormal [facility] PT Coag (PPP) [Time] 14.6 s High [facility] aPTT Coag (Bld) [Time] 33.0 s Normal 24.0-34.3 [facility] Comment on above: Performed By: #### TERI Lamar MGO, CHM7 #### [facility] (DEFAULT) [address] [place] [address] INR Coag (PPP) [Relative time] 1.1 {INR} Normal 0.9-1.1 [facility] Comment on above: Performed By: #### TERI Lamar MGO, CHM7 #### [facility] (DEFAULT) [address] [place] [address] PT Coag (PPP) [Time] 14.6 s High 11.9-14.2 [facility] Comment on above: Performed By: #### TERI Lamar MGO, CHM7 #### [facility] (DEFAULT) [address] [place] [address] 27032 TACROLIMUS LEVEL, TROUGH (AL E DRUG LEVEL)on 03-27-2024 Tacrolimus, Trough 6.7 ng/mL Normal [facility] ow Transplant: 5.0-15.0 Kidney/Pancr eatic Transplant: 0 to 3 months: 8.0-10.0, 3 to 12 months: 6.0-8.0, >12 months: 4.0-6.0 [facility] Comment on above: Order Comment: To be collected on POD1 Performed By: #### TERI Lamar MGO, CHM7 #### [facility] (DEFAULT) [address] [place] [address] 97865 Tacrolimus (Bld) [Mass/Vol] 7.8 ng/mL Bone Marrow Transplant: 5.0-15.0 Kidney/Pancr eatic Transplant: 0 to 3 months: 8.0-10.0, 3 to 12 months: 6.0-8.0, >12 months: 4.0-6.0 [facility] Method performed is a chemiluminescent microparticle immunoasssay on the [employer] i2000. The range is based on experience at [facility] and users should be aware that target concentrations vary widely depending on concomitant therapy, time post-transplant, and desired degree of immunosuppression. [facility] Tacrolimus, Trough 7.8 ng/mL Normal Bone [facility] ow Transplant: 5.0-15.0 Kidney/Pancr eatic Transplant: 0 to 3 months: 8.0-10.0, 3 to 12 months: 6.0-8.0, >12 months: 4.0-6.0 [facility] Comment on above: Order Comment: To be collected on POD1 Performed By: #### TERI Lamar MGO, CHM7 #### [facility] (DEFAULT) [address] [place] [address] CBC,PLATELETSon 03-26-2024 Erythrocyte distribution width (RBC) [Ratio] 12.8 % 10.9 - 14.3 % [facility] Hematocrit (Bld) [Volume fraction] 25.1 % Low 39.6 - 48.8 % [facility] Hemoglobin (Bld) [Mass/Vol] 8.0 g/dL Low 13.4 - 16.8 g/dL [facility] Interpretation and review of laboratory results Abnormal [facility] MCH (RBC) [Entitic mass] 30.4 pg 26.1 - 33.3 pg [facility] MCHC (RBC) [Mass/Vol] 31.9 g/dL 31.9 - 36.5 g/dL [facility] MCV (RBC) [Entitic vol] 95.4 fL High 79.0 - 94.5 fL [facility] Platelet mean volume (Bld) [Entitic vol] [facility] Comment on above: Not measured Platelets (Bld) [#/Vol] 141 10*3/uL Low 146 - 337 K/uL [facility] RBC (Bld) [#/Vol] 2.63 10*6/uL Low [facility] WBC (Bld) [#/Vol] 6.70 10*3/uL 3.73 - 10. 10 K/uL [facility] Hematocrit (Bld) [Volume fraction] 25.1 % Low 39.6-48.8 [facility] Comment on above: Performed By: #### C 7C #### [facility] (DEFAULT) [address] [address] Hemoglobin (Bld) [Mass/Vol] 8.0 g/dL Low 13.4-16.8 [facility] Comment on above: Performed By: #### C 7C #### [facility] (DEFAULT) [address] [address] MCV (RBC) [Entitic vol] 95.4 fL High 79.0-94.5 [facility] Comment on above: Performed By: #### C 7C #### [facility] (DEFAULT) [address] [address] Mean Cell Hgb 30.4 pg Normal 26.1-33.3 [facility] Comment on above: Performed By: #### C 7C #### [facility] (DEFAULT) [address] [address] Mean Cell Hgb Conc 31.9 g/dL Normal 31.9-36.5 [facility] Comment on above: Performed By: #### Pamela 7C #### [facility] (DEFAULT) [address] [address] Mean Platelet Volume Normal [facility] Comment on above: Result Comment: Not measured Performed By: #### Pamela 7C #### [facility] (DEFAULT) [address] [address] Platelets (Bld) [#/Vol] 141 10*3/uL Low 146-337 [facility] Comment on above: Performed By: #### Pamela 7C #### [facility] (DEFAULT) [address] [address] RBC (Bld) [#/Vol] 2.63 10*6/uL Low 4.38-5.83 [facility] Comment on above: Performed By: #### Pamela 7C #### [facility] (DEFAULT) [address] [address] RBC Distribution 12.8 % Normal 10.9-14.3 [facility] Comment on above: Performed By: #### Pamela 7C #### [facility] (DEFAULT) [address] [address] WBC (Bld) [#/Vol] 6.70 10*3/uL Normal 3.73-10.10 [facility] Comment on above: Performed By: #### Pamela 7C #### [facility] (DEFAULT) [address] [address] CHEM 7 (LYTES,BUN,CREA,GLUC) on 03-26-2024 Anion gap [Moles/Vol] 13 mmol/L 7 - 17 mmol/L [facility] Chloride [Moles/Vol] 111 mmol/L High 98 - 10 8 mmol/L [facility] CO2 [Moles/Vol] 21 mmol/L 21 - 31 mmol/L [facility] Creatinine [Mass/Vol] 2.32 mg/dL High 0.70 - 1.30 mg/dL [facility] eGFR, CKD-EPI, Male 32 Low - PINF [facility] Comment on above: Reported eGFR is bas ed on the CKD-EPI 2020 equation using creatinine, age, and sex. Glucose [Mass/Vol] 96 mg/dL 70 - 99 mg/dL [facility] Interpretation and review of laboratory results Abnormal [facility] Osmolality Calc [Osmolality] 305 [facility] Potassium [Moles/Vol] 5.1 mmol/L High 3.5 - 5.0 mmol/L [facility] Sodium [Moles/Vol] 140 mmol/L 135 - 145 mmol/L [facility] Urea nitrogen [Mass/Vol] 43 mg/dL High 7 - 25 mg/dL [facility] Urea nitrogen/Creatinine [Mass ratio] 19 mg/mg [facility] Anion gap [Moles/Vol] 13 mmol/L Normal 7-17 [facility] Comment on above: Performed By: #### L [id number] #### [facility] (DEFAULT) [address] [place] [address] Chloride [Moles/Vol] 111 mmol/L High 98-108 [facility] Comment on above: Performed By: #### L [id number] #### [facility] (DEFAULT) [address] [place] [address] CO2 [Moles/Vol] 21 mmol/L Normal 21-31 [facility] Comment on above: Performed By: #### L [id number] #### [facility] (DEFAULT) [address] [place] [address] Creatinine [Mass/Vol] 2.32 mg/dL High 0.70-1.30 [facility] Comment on above: Performed By: #### L [id number] #### [facility] (DEFAULT) [address] [place] [address] GFR/1.73 sq M.predicted among non-blacks MDRD (S/P/Bld) [Vol rate/Area] 32 mL/min/{1.73_m2} Low >=60 [facility] Comment on above: Result Comment: Repo rted eGFR is based on the CKD-EPI 2020 equation using creatinine, age, and sex. Performed By: #### L [id number] #### [facility] (DEFAULT) [address] [place] [address] Glucose [Mass/Vol] 96 mg/dL Normal 70-99 [facility] Comment on above: Performed By: #### L [id number] #### [facility] (DEFAULT) [address] [place] [address] Osmolality [Osmolality] 305 mosm/kg Normal 278-305 [facility] Comment on above: Performed By: #### L [id number] #### [facility] (DEFAULT) [address] [place] [address] Potassium [Moles/Vol] 5.1 mmol/L High 3.5-5.0 [facility] Comment on above: Performed By: #### L [id number] #### [facility] (DEFAULT) [address] [place] [address] Sodium [Moles/Vol] 140 mmol/L Normal 135-145 [facility] Comment on above: Performed By: #### L [id number] #### [facility] (DEFAULT) [address] [place] [address] Urea nitrogen [Mass/Vol] 43 mg/dL High 7-25 [facility] Comment on above: Performed By: #### L AB980 #### [facility] (DEFAULT) [address] [place] [address] Urea nitrogen/Creatinine [Mass ratio] 19 mg/mg Normal [facility] Comment on above: Performed By: #### L [id number] #### [facility] (DEFAULT) [address] [place] [address] CONTINUOUS CARDIAC MONITORIN G STRIPon 03-26-2024 [facility] MAGNESIUMon 03-26-2024 Magnesium [Mass/Vol] 1.8 mg/dL 1.6 - 2 .6 mg/dL [facility] Magnesium [Mass/Vol] 1.8 mg/dL Normal 1.6-2.6 [facility] Comment on above: Performed By: #### L [id number] #### [facility] (DEFAULT) [address] [place] [address] No Panel Informationon 03-26 Interpretation and review of laboratory results Normal [facility] PHOSPHATE, INORGANICon 03-26 Phosphate [Mass/Vol] 2.3 mg/dL 2.2 - 4 .6 mg/dL [facility] Phosphorous 2.3 mg/dL Normal 2.2-4.6 [facility] Comment on above: Performed By: #### L [id number] #### [facility] (DEFAULT) [address] [place] [address]68 TACROLIMUS LEVEL, TROUGH (AL E DRUG LEVEL)on 03-26-2024 Tacrolimus (Bld) [Mass/Vol] 8.5 ng/mL Bone Marrow Transplant: 5.0-15.0 Kidney/Pancr eatic Transplant: 0 to 3 months: 8.0-10.0, 3 to 12 months: 6.0-8.0, >12 months: 4.0-6.0 [facility] Method performed is a chemiluminescent microparticle immunoasssay on the [employer] i2000. The range is based on experience at [facility] and users should be aware that target concentrations vary widely depending on concomitant therapy, time post-transplant, and desired degree of immunosuppression. [facility] Tacrolimus, Trough 8.5 ng/mL Normal Bone Schuyler ow Transplant: 5.0-15.0 Kidney/Pancr eatic Transplant: 0 to 3 months: 8.0-10.0, 3 to 12 months: 6.0-8.0, >12 months: 4.0-6.0 [facility] Comment on above: Order Comment: Joslyn e draw at specified interval PRIOR to dose. Do not hold dose to wait for level. Specimens batched twice per day, (M-F) and once per day weekendsMethod performed is a chemiluminescent microparticle immunoasssay on the [employer] i2000.The range is based on experience at [facility] and users should be aware that target concentrations vary widely depending on concomitant therapy, time post-transplant, and desired degree of immunosuppression. Performed By: #### L [id number] #### [facility] (DEFAULT) [address] [place] [address] CALCIUMon 03-25-2024 Calcium [Mass/Vol] 8.7 mg/dL 8.6 - 10. 5 mg/dL [facility] Calcium [Mass/Vol] 8.7 mg/dL Normal 8.6-10.5 [facility] Comment on above: Performed By: #### M GO, CHM7, CA, IPB #### [facility] (DEFAULT) [address] [place] [address] CBC AND ELECTRONIC DIFFon Basophils (Bld) [#/Vol] K/uL 0.00 - 0.09 K/uL [facility] Basophils/100 WBC (Bld) 0.4 % [facility] Differential cell count method Nom (Bld) Electronic Differential [facility] Eosinophils (Bld) [#/Vol] 0.16 10*3/uL 0.00 - 0.48 K/uL [facility] Eosinophils/100 WBC (Bld) 2.2 % [facility] Erythrocyte distribution width (RBC) [Ratio] 13.2 % 10.9 - 14.3 % [facility] Comment on above: This is an appended report. These results have been appended to a previously preliminary verified report. Hematocrit (Bld) [Volume fraction] 21.3 % Low 39.6 - 48.8 % [facility] Comment on above: This is an appended report. These results have been appended to a previously preliminary verified report. Hemoglobin (Bld) [Mass/Vol] 6.5 g/dL Critically low 13.4 - 16.8 g/dL [facility] Comment on above: This result has been called to ALINE ISRAEL RN by João Peña on 03 25 2024 at 1727, and has been read back. This is an appended report. These results have been appended to a previously preliminary verified report. Immature granulocytes (Bld) [#/Vol] 0.04 10*3/[facility]L [facility] K/uL [facility] Immature granulocytes/100 WBC (Bld) 0.6 % [facility] Interpretation and review of laboratory results Abnormal [facility] Lymphocytes (Bld) [#/Vol] 1.05 10*3/uL 0.83 - 3.57 K/uL [facility] Lymphocytes/100 WBC (Bld) 14.7 % [facility] MCH (RBC) [Entitic mass] 29.7 pg 26.1 - 33.3 pg [facility] Comment on above: This is an appended report. These results have been appended to a previously preliminary verified report. MCHC (RBC) [Mass/Vol] 30.5 g/dL Low 31.9 - 36.5 g/dL [facility] Comment on above: This is an appended report. These results have been appended to a previously preliminary verified report. MCV (RBC) [Entitic vol] 97.3 fL High 79.0 - 94.5 fL [facility] Comment on above: This is an appended report. These results have been appended to a previously preliminary verified report. Monocytes (Bld) [#/Vol] 0.44 10*3/uL 0.24 - 0.93 K/uL [facility] Monocytes/100 WBC (Bld) 6.2 % [facility] Neutrophils (Bld) [#/Vol] 5.43 10*3/uL 1.57 - 6.19 K/uL [facility] Nucleated RBC/100 WBC (Bld) [Ratio] 0.0 % [facility] Comment on above: This is an appended report. These results have been appended to a previously preliminary verified report. Platelet mean volume (Bld) [Entitic vol] [facility] Comment on above: Not measured Platelets (Bld) [#/Vol] 121 10*3/uL Low 146 - 337 K/uL [facility] Comment on above: This is an appended report. These results have been appended to a previously preliminary verified report. RBC (Bld) [#/Vol] 2.19 10*6/uL Low [facility] Comment on above: This is an appended report. These results have been appended to a previously preliminary verified report. Segmented neutrophils/100 WBC (Bld) 75.9 % [facility] WBC (Bld) [#/Vol] 7.15 10*3/uL 3.73 - 10. 10 K/uL [facility] Comment on above: This is an appended report. These results have been appended to a previously preliminary verified report. [facility] Abs Baso Auto < Normal 0.00-0.09 [facility] Comment on above: Performed By: #### L [id number] #### [facility] (DEFAULT) [address] [address] Basophils/100 WBC (Bld) 0.4 % Normal [facility] Comment on above: Performed By: #### L [id number] #### [facility] (DEFAULT) [address] [address] DIFF STATUS Electronic Differential Normal [facility] Comment on above: Performed By: #### L [id number] #### [facility] (DEFAULT) [address] [address] Eosinophils (Bld) [#/Vol] 0.16 10*3/uL Normal 0.00-0.48 [facility] Comment on above: Performed By: #### L [id number] #### [facility] (DEFAULT) [address] [address] Eosinophils/100 WBC (Bld) 2.2 % Normal [facility] Comment on above: Performed By: #### L [id number] #### [facility] (DEFAULT) [address] [address] Hematocrit (Bld) [Volume fraction] 21.3 % Low 39.6-48.8 [facility] Comment on above: Result Comment: This is an appended report. These results have been appended to a previously preliminary verified report. Performed By: #### L [id number] #### [facility] (DEFAULT) [address] [address] Hemoglobin (Bld) [Mass/Vol] 6.5 g/dL Critically low 13.4-16.8 [facility] Comment on above: Result Comment: This result has been called to ALINE ISRAEL RN by João Peña on 03 25 2024 at 1727, and has been read back. This is an appended report. These results have been appended to a previously preliminary verified report. Performed By: #### L [id number] #### [facility] (DEFAULT) [address] [address] Immature Grans % 0.6 % Normal [facility] Comment on above: Performed By: #### L [id number] #### [facility] (DEFAULT) [address] [address] Immature Grans Absolute 0.04 K/uL Normal <=0.07 [facility] Comment on above: Performed By: #### L [id number] #### [facility] (DEFAULT) [address] [address] Lymphocytes (Bld) [#/Vol] 1.05 10*3/uL Normal 0.83-3.57 [facility] Comment on above: Performed By: #### L [id number] #### [facility] (DEFAULT) [address] [address] Lymphocytes/100 WBC (Bld) 14.7 % Normal [facility] Comment on above: Performed By: #### L [id number] #### [facility] (DEFAULT) [address] [address] MCV (RBC) [Entitic vol] 97.3 fL High 79.0-94.5 [facility] Comment on above: Result Comment: This is an appended report. These results have been appended to a previously preliminary verified report. Performed By: #### L [id number] #### [facility] (DEFAULT) [address] [address] Mean Cell Hgb 29.7 pg Normal 26.1-33.3 [facility] Comment on above: Result Comment: This is an appended report. These results have been appended to a previously preliminary verified report. Performed By: #### L [id number] #### [facility] (DEFAULT) [address] [address] Mean Cell Hgb Conc 30.5 g/dL Low 31.9-36.5 [facility] Comment on above: Result Comment: This is an appended report. These results have been appended to a previously preliminary verified report. Performed By: #### L [id number] #### [facility] (DEFAULT) [address] [address] Mean Platelet Volume Normal [facility] Comment on above: Result Comment: Not measured Performed By: #### L [id number] #### [facility] (DEFAULT) [address] [address] Monocytes (Bld) [#/Vol] 0.44 10*3/uL Normal 0.24-0.93 [facility] Comment on above: Performed By: #### L [id number] #### [facility] (DEFAULT) [address] [address] Monocytes/100 WBC (Bld) 6.2 % Normal [facility] Comment on above: Performed By: #### L [id number] #### [facility] (DEFAULT) [address] [address] Nucleated RBC 0.0 /100 WBC Normal <=0.2 [facility] Comment on above: Result Comment: This is an appended report. These results have been appended to a previously preliminary verified report. Performed By: #### L [id number] #### [facility] (DEFAULT) [address] [address] Platelets (Bld) [#/Vol] 121 10*3/uL Low 146-337 [facility] Comment on above: Result Comment: This is an appended report. These results have been appended to a previously preliminary verified report. Performed By: #### L [id number] #### [facility] (DEFAULT) [address] [address] RBC (Bld) [#/Vol] 2.19 10*6/uL Low 4.38-5.83 [facility] Comment on above: Result Comment: This is an appended report. These results have been appended to a previously preliminary verified report. Performed By: #### L [id number] #### [facility] (DEFAULT) [address] [address] RBC Distribution 13.2 % Normal 10.9-14.3 [facility] Comment on above: Result Comment: This is an appended report. These results have been appended to a previously preliminary verified report. Performed By: #### L [id number] #### [facility] (DEFAULT) [address] [address] Segs + Bands Auto 75.9 % Normal [facility] Comment on above: Performed By: #### L AB980 #### [facility] (DEFAULT) [address] [address] Segs + Bands,Absolute Auto 5.43 K/uL Normal 1.57-6.19 [facility] Comment on above: Performed By: #### L AB980 #### [facility] (DEFAULT) [address] [address] WBC (Bld) [#/Vol] 7.15 10*3/uL Normal 3.73-10.10 [facility] Comment on above: Result Comment: This is an appended report. These results have been appended to a previously preliminary verified report. Performed By: #### L [id number] #### [facility] (DEFAULT) [address] [place] [address] CBC,PLATELETSon 03-25-2024 Erythrocyte distribution width (RBC) [Ratio] 13.1 % 10.9 - 14.3 % [facility] Hematocrit (Bld) [Volume fraction] 26.8 % Low 39.6 - 48.8 % [facility] Hemoglobin (Bld) [Mass/Vol] 8.2 g/dL Low 13.4 - 16.8 g/dL [facility] Interpretation and review of laboratory results Abnormal [facility] MCH (RBC) [Entitic mass] 29.4 pg 26.1 - 33.3 pg [facility] MCHC (RBC) [Mass/Vol] 30.6 g/dL Low 31.9 - 36.5 g/dL [facility] MCV (RBC) [Entitic vol] 96.1 fL High 79.0 - 94.5 fL [facility] Platelet mean volume (Bld) [Entitic vol] 11.4 fL 8.7 - 12.3 fL [facility] Platelets (Bld) [#/Vol] 148 10*3/uL 146 - 337 K/uL [facility] RBC (Bld) [#/Vol] 2.79 10*6/uL Low [facility] WBC (Bld) [#/Vol] 8.94 10*3/uL 3.73 - 10. 10 K/uL [facility] Hematocrit (Bld) [Volume fraction] 26.8 % Low 39.6-48.8 [facility] Comment on above: Performed By: #### C 7C #### [facility] (DEFAULT) [address] [place] [address] Hemoglobin (Bld) [Mass/Vol] 8.2 g/dL Low 13.4-16.8 [facility] Comment on above: Performed By: #### C 7C #### [facility] (DEFAULT) [address] [place] [address] MCV (RBC) [Entitic vol] 96.1 fL High 79.0-94.5 [facility] Comment on above: Performed By: #### C 7C #### [facility] (DEFAULT) [address] [place] [address] 27744 Mean Cell Hgb 29.4 pg Normal 26.1-33.3 [facility] Comment on above: Performed By: #### C 7C #### [facility] (DEFAULT) [address] [place] [address]90 Mean Cell Hgb Conc 30.6 g/dL Low 31.9-36.5 [facility] Comment on above: Performed By: #### C 7C #### [facility] (DEFAULT) [address] [place] [address] Platelet mean volume (Bld) [Entitic vol] 11.4 fL Normal 8.7-12.3 [facility] Comment on above: Performed By: #### C 7C #### [facility] (DEFAULT) [address] [place] [address] Platelets (Bld) [#/Vol] 148 10*3/uL Normal 146-337 [facility] Comment on above: Performed By: #### C 7C #### [facility] (DEFAULT) [address] [place] [address] RBC (Bld) [#/Vol] 2.79 10*6/uL Low 4.38-5.83 [facility] Comment on above: Performed By: #### C 7C #### [facility] (DEFAULT) [address] [address] RBC Distribution 13.1 % Normal 10.9-14.3 [facility] Comment on above: Performed By: #### C 7C #### [facility] (DEFAULT) [address] [place] [address] WBC (Bld) [#/Vol] 8.94 10*3/uL Normal 3.73-10.10 [facility] Comment on above: Performed By: #### C 7C #### [facility] (DEFAULT) [address] [place] [address] Erythrocyte distribution width (RBC) [Ratio] 13.2 % 10.9 - 14.3 % [facility] Hematocrit (Bld) [Volume fraction] 25.2 % Low 39.6 - 48.8 % [facility] Hemoglobin (Bld) [Mass/Vol] 8.0 g/dL Low 13.4 - 16.8 g/dL [facility] Interpretation and review of laboratory results Abnormal [facility] MCH (RBC) [Entitic mass] 29.9 pg 26.1 - 33.3 pg [facility] MCHC (RBC) [Mass/Vol] 31.7 g/dL Low 31.9 - 36.5 g/dL [facility] MCV (RBC) [Entitic vol] 94.0 fL 79.0 - 94.5 fL [facility] Platelet mean volume (Bld) [Entitic vol] 11.5 fL 8.7 - 12.3 fL [facility] Platelets (Bld) [#/Vol] 149 10*3/uL 146 - 337 K/uL [facility] RBC (Bld) [#/Vol] 2.68 10*6/uL Low [facility] WBC (Bld) [#/Vol] 8.93 10*3/uL 3.73 - 10. 10 K/uL [facility] Hematocrit (Bld) [Volume fraction] 25.2 % Low 39.6-48.8 [facility] Comment on above: Performed By: #### C A, IPDylan, MGO, CHM7 #### [facility] (DEFAULT) [address] [place] [address] Hemoglobin (Bld) [Mass/Vol] 8.0 g/dL Low 13.4-16.8 [facility] Comment on above: Performed By: #### Pamela Wayne, IPB, MGO, CHM7 #### [facility] (DEFAULT) [address] [place] [address] MCV (RBC) [Entitic vol] 94.0 fL Normal 79.0-94.5 [facility] Comment on above: Performed By: #### Pamela Wayne, IPB, MGO, CHM7 #### [facility] (DEFAULT) [address] [place] [address] Mean Cell Hgb 29.9 pg Normal 26.1-33.3 [facility] Comment on above: Performed By: #### Pamela Wayne, IPB, MGO, CHM7 #### [facility] (DEFAULT) [address] [place] [address] 111[address] Mean Cell Hgb Conc 31.7 g/dL Low 31.9-36.5 [facility] Comment on above: Performed By: #### Pamela Wayne, IPB, MGO, CHM7 #### [facility] (DEFAULT) [address] [place] [address] Platelet mean volume (Bld) [Entitic vol] 11.5 fL Normal 8.7-12.3 [facility] Comment on above: Performed By: #### Pamela A, IPB, MGO, CHM7 #### [facility] (DEFAULT) [address] [place] [address] Platelets (Bld) [#/Vol] 149 10*3/uL Normal 146-337 [facility] Comment on above: Performed By: #### C A, IPB, MGO, CHM7 #### [facility] (DEFAULT) [address] [place] [address] RBC (Bld) [#/Vol] 2.68 10*6/uL Low 4.38-5.83 [facility] Comment on above: Performed By: #### Pamela A, IPB, MGO, CHM7 #### [facility] (DEFAULT) [address] [place] [address] [place] [address] RBC Distribution 13.2 % Normal 10.9-14.3 [facility] Comment on above: Performed By: #### TERI Lamar MGO, CHM7 #### [facility] (DEFAULT) [address] [place] [address] WBC (Bld) [#/Vol] 8.93 10*3/uL Normal 3.73-10.10 [facility] Comment on above: Performed By: #### TERI Lamar MGO, CHM7 #### [facility] (DEFAULT) [address] [place] [address] Erythrocyte distribution width (RBC) [Ratio] 13.2 % 10.9 - 14.3 % [facility] Hematocrit (Bld) [Volume fraction] 25.1 % Low 39.6 - 48.8 % [facility] Hemoglobin (Bld) [Mass/Vol] 8.0 g/dL Low 13.4 - 16.8 g/dL [facility] Interpretation and review of laboratory results Abnormal [facility] MCH (RBC) [Entitic mass] 30.2 pg 26.1 - 33.3 pg [facility] MCHC (RBC) [Mass/Vol] 31.9 g/dL 31.9 - 36.5 g/dL [facility] MCV (RBC) [Entitic vol] 94.7 fL High 79.0 - 94.5 fL [facility] Platelet mean volume (Bld) [Entitic vol] 11.7 fL 8.7 - 12.3 fL [facility] Platelets (Bld) [#/Vol] 150 10*3/uL 146 - 337 K/uL [facility] RBC (Bld) [#/Vol] 2.65 10*6/uL Low [facility] WBC (Bld) [#/Vol] 9.82 10*3/uL 3.73 - 10. 10 K/uL [facility] Hematocrit (Bld) [Volume fraction] 25.1 % Low 39.6-48.8 [facility] Comment on above: Performed By: #### TERI Lamar, MGSeema, CHM7 #### [facility] (DEFAULT) [address] [place] [address] Hemoglobin (Bld) [Mass/Vol] 8.0 g/dL Low 13.4-16.8 [facility] Comment on above: Performed By: #### Pamela Wayne, JANEB, MGO, CHM7 #### [facility] (DEFAULT) [address] [place] [address] MCV (RBC) [Entitic vol] 94.7 fL High 79.0-94.5 [facility] Comment on above: Performed By: #### JANE LamarB, MGO, CHM7 #### [facility] (DEFAULT) [address] [place] [address] Mean Cell Hgb 30.2 pg Normal 26.1-33.3 [facility] Comment on above: Performed By: #### Pamela Wayne, IPB, MGO, CHM7 #### [facility] (DEFAULT) [address] [place] [address] Mean Cell Hgb Conc 31.9 g/dL Normal 31.9-36.5 [facility] Comment on above: Performed By: #### Pamela Wayne, IPB, MGO, CHM7 #### [facility] (DEFAULT) [address] [place] [address] Platelet mean volume (Bld) [Entitic vol] 11.7 fL Normal 8.7-12.3 [facility] Comment on above: Performed By: #### Pamela Wayne, IPB, MGO, CHM7 #### [facility] (DEFAULT) [address] [place] [address] Platelets (Bld) [#/Vol] 150 10*3/uL Normal 146-337 [facility] Comment on above: Performed By: #### Pamela Wayne, IPB, MGO, CHM7 #### [facility] (DEFAULT) [address] [place] [address] RBC (Bld) [#/Vol] 2.65 10*6/uL Low 4.38-5.83 [facility] Comment on above: Performed By: #### C A, IPB, MGO, CHM7 #### [facility] (DEFAULT) [address] [place] [address] RBC Distribution 13.2 % Normal 10.9-14.3 [facility] Comment on above: Performed By: #### C A, IPB, MGO, CHM7 #### [facility] (DEFAULT) [address] [place] [address] WBC (Bld) [#/Vol] 9.82 10*3/uL Normal 3.73-10.10 [facility] Comment on above: Performed By: #### C A, IPB, MGO, CHM7 #### [facility] (DEFAULT) [address] [place] [address] CHEM 7 (LYTES,BUN,CREA,GLUC) on 03-25-2024 Anion gap [Moles/Vol] 11 mmol/L 7 - 17 mmol/L [facility] Chloride [Moles/Vol] 112 mmol/L High 98 - 10 8 mmol/L [facility] CO2 [Moles/Vol] 24 mmol/L 21 - 31 mmol/L [facility] Creatinine [Mass/Vol] 2.49 mg/dL High 0.70 - 1.30 mg/dL [facility] eGFR, CKD-EPI, Male 30 Low - PINF [facility] Comment on above: Reported eGFR is bas ed on the CKD-EPI 2020 equation using creatinine, age, and sex. Glucose [Mass/Vol] 96 mg/dL 70 - 99 mg/dL [facility] Osmolality Calc [Osmolality] 310 High [facility] Potassium [Moles/Vol] 5.0 mmol/L 3.5 - 5.0 mmol/L [facility] Sodium [Moles/Vol] 142 mmol/L 135 - 145 mmol/L [facility] Urea nitrogen [Mass/Vol] 45 mg/dL High 7 - 25 mg/dL [facility] Urea nitrogen/Creatinine [Mass ratio] 18 mg/mg [facility] Anion gap [Moles/Vol] 11 mmol/L Normal 7-17 [facility] Comment on above: Performed By: #### C A, IPB, MGO, CHM7 #### [facility] (DEFAULT) [address] [place] [address] Chloride [Moles/Vol] 112 mmol/L High 98-108 [facility] Comment on above: Performed By: #### Pamela A, IPB, MGO, CHM7 #### [facility] (DEFAULT) [address] [place] [address] CO2 [Moles/Vol] 24 mmol/L Normal 21-31 [facility] Comment on above: Performed By: #### Pamela A, IPB, MGO, CHM7 #### [facility] (DEFAULT) [address] [place] [address] Creatinine [Mass/Vol] 2.49 mg/dL High 0.70-1.30 [facility] Comment on above: Performed By: #### Pamela A, IPB, MGO, CHM7 #### [facility] (DEFAULT) [address] [place] [address] 35515 GFR/1.73 sq M.predicted among non-blacks MDRD (S/P/Bld) [Vol rate/Area] 30 mL/min/{1.73_m2} Low >=60 [facility] Comment on above: Result Comment: Repo rted eGFR is based on the CKD-EPI 2020 equation using creatinine, age, and sex. Performed By: #### C A, IPB, MGO, CHM7 #### [facility] (DEFAULT) [address] [place] [address] Glucose [Mass/Vol] 96 mg/dL Normal 70-99 [facility] Comment on above: Performed By: #### C A, IPB, MGO, CHM7 #### [facility] (DEFAULT) [address] [place] [address] Osmolality [Osmolality] 310 mosm/kg High 278-305 [facility] Comment on above: Performed By: #### C A, IPB, MGO, CHM7 #### [facility] (DEFAULT) [address] [place] [address] Potassium [Moles/Vol] 5.0 mmol/L Normal 3.5-5.0 [facility] Comment on above: Performed By: #### C A, IPB, MGO, CHM7 #### [facility] (DEFAULT) [address] [place] [address] 369[address] Sodium [Moles/Vol] 142 mmol/L Normal 135-145 [facility] Comment on above: Performed By: #### C A, IPB, MGO, CHM7 #### [facility] (DEFAULT) [address] [place] [address] Urea nitrogen [Mass/Vol] 45 mg/dL High 7-25 [facility] Comment on above: Performed By: #### C A, IPB, MGO, CHM7 #### [facility] (DEFAULT) [address] [place] [address] Urea nitrogen/Creatinine [Mass ratio] 18 mg/mg Normal [facility] Comment on above: Performed By: #### C A, IPB, MGO, CHM7 #### [facility] (DEFAULT) [address] [place] [address] Anion gap [Moles/Vol] 12 mmol/L 7 - 17 mmol/L [facility] Chloride [Moles/Vol] 111 mmol/L High 98 - 10 8 mmol/L [facility] CO2 [Moles/Vol] 24 mmol/L 21 - 31 mmol/L [facility] Creatinine [Mass/Vol] 2.51 mg/dL High 0.70 - 1.30 mg/dL [facility] eGFR, CKD-EPI, Male 29 Low - PINF [facility] Comment on above: Reported eGFR is bas ed on the CKD-EPI 2020 equation using creatinine, age, and sex. Glucose [Mass/Vol] 110 mg/dL High 70 - 99 mg/dL [facility] Interpretation and review of laboratory results Abnormal [facility] Osmolality Calc [Osmolality] 310 High [facility] Potassium [Moles/Vol] 5.2 mmol/L High 3.5 - 5.0 mmol/L [facility] Sodium [Moles/Vol] 142 mmol/L 135 - 145 mmol/L [facility] Urea nitrogen [Mass/Vol] 43 mg/dL High 7 - 25 mg/dL [facility] Urea nitrogen/Creatinine [Mass ratio] 17 mg/mg [facility] Anion gap [Moles/Vol] 12 mmol/L Normal 7-17 [facility] Comment on above: Performed By: #### C A, IPB, MGO, CHM7 #### [facility] (DEFAULT) [address] [place] [address]809 Chloride [Moles/Vol] 111 mmol/L High 98-108 [facility] Comment on above: Performed By: #### C A, IPB, MGO, CHM7 #### [facility] (DEFAULT) [address] [place] [address] 88438 CO2 [Moles/Vol] 24 mmol/L Normal 21-31 [facility] Comment on above: Performed By: #### C A, IPB, MGO, CHM7 #### [facility] (DEFAULT) [address] [place] [address] 42404 Creatinine [Mass/Vol] 2.51 mg/dL High 0.70-1.30 [facility] Comment on above: Performed By: #### C A, IPB, MGO, CHM7 #### [facility] (DEFAULT) [address] [place] [address] 85484 GFR/1.73 sq M.predicted among non-blacks MDRD (S/P/Bld) [Vol rate/Area] 29 mL/min/{1.73_m2} Low >=60 [facility] Comment on above: Result Comment: Repo rted eGFR is based on the CKD-EPI 2020 equation using creatinine, age, and sex. Performed By: #### Pamela Wayne, IPB, MGO, CHM7 #### [facility] (DEFAULT) [address] [place] [address] 24351 Glucose [Mass/Vol] 110 mg/dL High 70-99 [facility] Comment on above: Performed By: #### Pamela Wayne, IPB, MGO, CHM7 #### [facility] (DEFAULT) [address] [place] [address] 57061 Osmolality [Osmolality] 310 mosm/kg High 278-305 [facility] Comment on above: Performed By: #### Pamela Wayne, IPB, MGO, CHM7 #### [facility] (DEFAULT) [address] [place] [address] 48243 Potassium [Moles/Vol] 5.2 mmol/L High 3.5-5.0 [facility] Comment on above: Performed By: #### Pamela Wayne, IPB, MGO, CHM7 #### [facility] (DEFAULT) [address] [place] [address] 89658 Sodium [Moles/Vol] 142 mmol/L Normal 135-145 [facility] Comment on above: Performed By: #### Pamela A, IPB, MGO, CHM7 #### [facility] (DEFAULT) [address] [place] [address] 50012 Urea nitrogen [Mass/Vol] 43 mg/dL High 7-25 [facility] Comment on above: Performed By: #### Pamela A, IPB, MGO, CHM7 #### [facility] (DEFAULT) [address] [place] [address] 65732 Urea nitrogen/Creatinine [Mass ratio] 17 mg/mg Normal [facility] Comment on above: Performed By: #### C TERI Wayne, JUAN GUILLEN #### [facility] (DEFAULT) [address] [place] [address] Anion gap [Moles/Vol] 12 mmol/L 7 - 17 mmol/L [facility] Chloride [Moles/Vol] 110 mmol/L High 98 - 10 8 mmol/L [facility] CO2 [Moles/Vol] 24 mmol/L 21 - 31 mmol/L [facility] Creatinine [Mass/Vol] 2.60 mg/dL High 0.70 - 1.30 mg/dL [facility] eGFR, CKD-EPI, Male 28 Low - PINF [facility] Comment on above: Reported eGFR is bas ed on the CKD-EPI 2020 equation using creatinine, age, and sex. Glucose [Mass/Vol] 111 mg/dL High 70 - 99 mg/dL [facility] Interpretation and review of laboratory results Abnormal [facility] Osmolality Calc [Osmolality] 309 High [facility] Potassium [Moles/Vol] 5.0 mmol/L 3.5 - 5.0 mmol/L [facility] Sodium [Moles/Vol] 141 mmol/L 135 - 145 mmol/L [facility] Urea nitrogen [Mass/Vol] 47 mg/dL High 7 - 25 mg/dL [facility] Urea nitrogen/Creatinine [Mass ratio] 18 mg/mg [facility] Anion gap [Moles/Vol] 12 mmol/L Normal 7-17 [facility] Comment on above: Performed By: #### JUAN GONZALEZ, TERI MO #### [facility] (DEFAULT) [address] [place] [address] Chloride [Moles/Vol] 110 mmol/L High 98-108 [facility] Comment on above: Performed By: #### JUAN GONZALEZ, CHEPE, JANEB #### [facility] (DEFAULT) [address] [place] [address] 31275 CO2 [Moles/Vol] 24 mmol/L Normal 21-31 [facility] Comment on above: Performed By: #### Tomas WILL CHM7, [place], IPB #### [facility] (DEFAULT) [address] [place] [address] 24721 Creatinine [Mass/Vol] 2.60 mg/dL High 0.70-1.30 [facility] Comment on above: Performed By: #### Tomas WILL CHM7, [place], IPB #### [facility] (DEFAULT) [address] [place] [address] 59929 GFR/1.73 sq M.predicted among non-blacks MDRD (S/P/Bld) [Vol rate/Area] 28 mL/min/{1.73_m2} Low >=60 [facility] Comment on above: Result Comment: Repo rted eGFR is based on the CKD-EPI 2020 equation using creatinine, age, and sex. Performed By: #### Tomas WILL CHM7, [place], IPB #### [facility] (DEFAULT) [address] [place] [address] 10407 Glucose [Mass/Vol] 111 mg/dL High 70-99 [facility] Comment on above: Performed By: #### Tomas WILL CHM7, [place], IPB #### [facility] (DEFAULT) [address] [place] [address] 91655 Osmolality [Osmolality] 309 mosm/kg High 278-305 [facility] Comment on above: Performed By: #### Tomas WILL CHM7, [place], IPB #### [facility] (DEFAULT) [address] [place] [address] 81645 Potassium [Moles/Vol] 5.0 mmol/L Normal 3.5-5.0 [facility] Comment on above: Performed By: #### Tomas WILL, CHM7, [place], IPB #### [facility] (DEFAULT) [address] [place] [address] 25338 Sodium [Moles/Vol] 141 mmol/L Normal 135-145 [facility] Comment on above: Performed By: #### JUAN GONZALEZ, [place], IPB #### [facility] (DEFAULT) [address] [place] [address] 39441 Urea nitrogen [Mass/Vol] 47 mg/dL High - [facility] Comment on above: Performed By: #### JUAN GONZALEZ, [place], IPB #### [facility] (DEFAULT) [address] [place] [address] 85478 Urea nitrogen/Creatinine [Mass ratio] 18 mg/mg Normal [facility] [facility] Comment on above: Performed By: #### JUAN GONZALEZ, [place], IPB #### [facility] (DEFAULT) [address] [place] [address] [phone] CONTINUOUS CARDIAC MONITORIN G STRIPon 03-25-2024 [facility] MAGNESIUMon 03-25-2024 Interpretation and review of laboratory results Normal [facility] Magnesium [Mass/Vol] 1.9 mg/dL 1.6 - 2 .6 mg/dL [facility] Magnesium [Mass/Vol] 1.9 mg/dL Normal 1.6-2.6 [facility] Comment on above: Performed By: #### JANE LamarB, MGO, CHM7 #### [facility] (DEFAULT) [address] [place] [address] 67769 Magnesium [Mass/Vol] 1.9 mg/dL 1.6 - 2 .6 mg/dL [facility] Magnesium [Mass/Vol] 1.9 mg/dL Normal 1.6-2.6 [facility] Comment on above: Performed By: #### JANE LamarB, MGO, CHM7 #### [facility] (DEFAULT) [address] [place] [address]406 Magnesium [Mass/Vol] 1.9 mg/dL 1.6 - 2 .6 mg/dL [facility] Magnesium [Mass/Vol] 1.9 mg/dL Normal 1.6-2.6 [facility] Comment on above: Performed By: #### M JUAN WILL, TERI MO #### [facility] (DEFAULT) [address] [place] [address] No Panel Informationon 03-25 ABO/RH(D) TYPE Positive [facility] BLOOD COMPONENT TYPE Red Cells, Leukoreduced [facility] EXPIRATION DATE [id number] [facility] Product ABO/RH(D) Positive [facility] Product ABO/RH(D) NUMBER 5100 [facility] PRODUCT CODE [id number] [facility] UNIT NUMBER [id number] [facility] Interpretation and review of laboratory results Abnormal [facility] Method performed is a chemiluminescent microparticle immunoasssay on the [employer] i2000. The range is based on experience at [facility] and users should be aware that target concentrations vary widely depending on concomitant therapy, time post-transplant, and desired degree of immunosuppression. [facility] Interpretation and review of laboratory results Normal [facility] Interpretation and review of laboratory results Normal [facility] PHOSPHATE, INORGANICon 03-25 Phosphate [Mass/Vol] 2.1 mg/dL Low 2.2 - 4 .6 mg/dL [facility] Phosphorous 2.1 mg/dL Low 2.2-4.6 [facility] Comment on above: Performed By: #### C TERI Wayne, SHAHNAZ GUILLENM7 #### [facility] (DEFAULT) [address] [place] [address] 24090 Phosphate [Mass/Vol] 2.6 mg/dL 2.2 - 4 .6 mg/dL [facility] Phosphorous 2.6 mg/dL Normal 2.2-4.6 [facility] Comment on above: Performed By: #### C AJANEB, MGO, CHM7 #### [facility] (DEFAULT) [address] [place] [address] Phosphate [Mass/Vol] 2.9 mg/dL 2.2 - 4 .6 mg/dL [facility] Phosphorous 2.9 mg/dL Normal 2.2-4.6 [facility] Comment on above: Performed By: #### M GO, CHM7, CA, IPB #### [facility] (DEFAULT) [address] [place] [address] PREPARE TO TRANSFUSE RED BLO OD CELLSon 03-25-2024 UNIT STATUS released [facility] UNIT STATUS Available [facility] TACROLIMUS LEVEL, TROUGH (AL E DRUG LEVEL)on 03-25-2024 Tacrolimus (Bld) [Mass/Vol] 8.2 ng/mL Bone Marrow Transplant: 5.0-15.0 Kidney/Pancr eatic Transplant: 0 to 3 months: 8.0-10.0, 3 to 12 months: 6.0-8.0, >12 months: 4.0-6.0 [facility] Method performed is a chemiluminescent microparticle immunoasssay on the [employer] Ar[employer]ist i2000. The range is based on experience at [facility] and users should be aware that target concentrations vary widely depending on concomitant therapy, time post-transplant, and desired degree of immunosuppression. [facility] Tacrolimus (Bld) [Mass/Vol] 8.6 ng/mL Bone Marrow Transplant: 5.0-15.0 Kidney/Pancr eatic Transplant: 0 to 3 months: 8.0-10.0, 3 to 12 months: 6.0-8.0, >12 months: 4.0-6.0 [facility] Tacrolimus (Bld) [Mass/Vol] 9.0 ng/mL Bone Marrow Transplant: 5.0-15.0 Kidney/Pancr eatic Transplant: 0 to 3 months: 8.0-10.0, 3 to 12 months: 6.0-8.0, >12 months: 4.0-6.0 [facility] Tacrolimus, Trough 8.2 ng/mL Normal Bone Schuyler ow Transplant: 5.0-15.0 Kidney/Pancr eatic Transplant: 0 to 3 months: 8.0-10.0, 3 to 12 months: 6.0-8.0, >12 months: 4.0-6.0 [facility] Comment on above: Order Comment: To be collected on POD1 Performed By: #### C Tone, TERI, MINDY, CHM7 #### [facility] (DEFAULT) [address] [place] [address] 74594 Tacrolimus, Trough 9.0 ng/mL Normal Bone Schuyler ow Transplant: 5.0-15.0 Kidney/Pancr eatic Transplant: 0 to 3 months: 8.0-10.0, 3 to 12 months: 6.0-8.0, >12 months: 4.0-6.0 [facility] Comment on above: Order Comment: To be collected on POD1 Performed By: #### Pamela Wayne, TERI, MINDY, CHM7 #### [facility] (DEFAULT) [address] [place] [address]240 TYPE AND SCREENon 03-25-2024 ABO/RH(D) TYPE Positive Normal [facility] Comment on above: Performed By: #### TERI Lamar, MGSeema, CHM7 #### [facility] (DEFAULT) [address] [place] [address] 98089 Outdate Specimen 03/28/2024 23:59 Normal [facility] Comment on above: Performed By: #### Pamela Wayne, TERI, MGO, CHM7 #### [facility] (DEFAULT) [address] [place] [address]958 US RENAL TRANSPLANT SCANon 0 03-25-2024 US [...] 2. Resistivity indices within normal limits. Normal [facility] US for transplanted kidney l imitedon 03-25-2024 [...] exam 2. Resistivity indices within normal limits. [facility] Radiology Study observation (narrative) [facility] US for transplanted kidney l imitedOrdered By: Maurice Corbett on 03-25-2024 [facility] Work Phone: CALCIUMon 03-24-2024 Calcium [Mass/Vol] 8.6 mg/dL 8.6 - 10. 5 mg/dL [facility] Calcium [Mass/Vol] 8.6 mg/dL Normal 8.6-10.5 [facility] Comment on above: Order Comment: To be collected on POD1 Performed By: #### C A, IPB, MGO, CHM7 #### [facility] (DEFAULT) [address] [place] [address] CBC,PLATELETSon 03-24-2024 Erythrocyte distribution width (RBC) [Ratio] 12.9 % 10.9 - 14.3 % [facility] Hematocrit (Bld) [Volume fraction] 28.3 % Low 39.6 - 48.8 % [facility] Hemoglobin (Bld) [Mass/Vol] 9.3 g/dL Low 13.4 - 16.8 g/dL [facility] Interpretation and review of laboratory results Abnormal [facility] MCH (RBC) [Entitic mass] 30.4 pg 26.1 - 33.3 pg [facility] MCHC (RBC) [Mass/Vol] 32.9 g/dL 31.9 - 36.5 g/dL [facility] MCV (RBC) [Entitic vol] 92.5 fL 79.0 - 94.5 fL [facility] Platelet mean volume (Bld) [Entitic vol] 11.6 fL 8.7 - 12.3 fL [facility] Platelets (Bld) [#/Vol] 179 10*3/uL 146 - 337 K/uL [facility] RBC (Bld) [#/Vol] 3.06 10*6/uL Low [facility] WBC (Bld) [#/Vol] 14.38 10*3/uL High 3.73 - 10 .10 K/uL [facility] Hematocrit (Bld) [Volume fraction] 28.3 % Low 39.6-48.8 [facility] Comment on above: Order Comment: To be collected on POD1 Performed By: #### C 7C #### [facility] (DEFAULT) [address] [place] [address] 41245 Hemoglobin (Bld) [Mass/Vol] 9.3 g/dL Low 13.4-16.8 [facility] Comment on above: Order Comment: To be collected on POD1 Performed By: #### C 7C #### [facility] (DEFAULT) [address] [place] [address] 37868 MCV (RBC) [Entitic vol] 92.5 fL Normal 79.0-94.5 [facility] Comment on above: Order Comment: To be collected on POD1 Performed By: #### C 7C #### [facility] (DEFAULT) [address] [place] [address] 96284 Mean Cell Hgb 30.4 pg Normal 26.1-33.3 [facility] Comment on above: Order Comment: To be collected on POD1 Performed By: #### C 7C #### [facility] (DEFAULT) [address] [place] [address] 45801 Mean Cell Hgb Conc 32.9 g/dL Normal 31.9-36.5 [facility] Comment on above: Order Comment: To be collected on POD1 Performed By: #### C 7C #### [facility] (DEFAULT) [address] [place] [address] 47342 Platelet mean volume (Bld) [Entitic vol] 11.6 fL Normal 8.7-12.3 [facility] Comment on above: Order Comment: To be collected on POD1 Performed By: #### C 7C #### [facility] (DEFAULT) [address] [place] [address] 74192 Platelets (Bld) [#/Vol] 179 10*3/uL Normal 146-337 [facility] Comment on above: Order Comment: To be collected on POD1 Performed By: #### C 7C #### [facility] (DEFAULT) [address] [place] [address] 63320 RBC (Bld) [#/Vol] 3.06 10*6/uL Low 4.38-5.83 [facility] Comment on above: Order Comment: To be collected on POD1 Performed By: #### C 7C #### [facility] (DEFAULT) [address] [place] [address] 75124 RBC Distribution 12.9 % Normal 10.9-14.3 [facility] Comment on above: Order Comment: To be collected on POD1 Performed By: #### C 7C #### [facility] (DEFAULT) [address] [place] [address] 32736 WBC (Bld) [#/Vol] 14.38 10*3/uL High 3.73-10.10 [facility] Comment on above: Order Comment: To be collected on POD1 Performed By: #### C 7C #### [facility] (DEFAULT) [address] [place] [address] 00655 CHEM 7 (LYTES,BUN,CREA,GLUC) on 03-24-2024 Anion gap [Moles/Vol] 14 mmol/L 7 - 17 mmol/L [facility] Chloride [Moles/Vol] 111 mmol/L High 98 - 10 8 mmol/L [facility] CO2 [Moles/Vol] 19 mmol/L Low 21 - 31 mmol/L [facility] Creatinine [Mass/Vol] 2.17 mg/dL High 0.70 - 1.30 mg/dL [facility] eGFR, CKD-EPI, Male 35 Low - PINF [facility] Comment on above: Reported eGFR is bas ed on the CKD-EPI 2020 equation using creatinine, age, and sex. Glucose [Mass/Vol] 144 mg/dL High 70 - 99 mg/dL [facility] Interpretation and review of laboratory results Abnormal [facility] Osmolality Calc [Osmolality] 306 High [facility] Potassium [Moles/Vol] 5.5 mmol/L High 3.5 - 5.0 mmol/L [facility] Sodium [Moles/Vol] 138 mmol/L 135 - 145 mmol/L [facility] Urea nitrogen [Mass/Vol] 45 mg/dL High 7 - 25 mg/dL [facility] Urea nitrogen/Creatinine [Mass ratio] 21 mg/mg [facility] Anion gap [Moles/Vol] 14 mmol/L Normal 7-17 [facility] Comment on above: Order Comment: To be collected on POD1 Performed By: #### C A, IPB, MGO, CHM7 #### [facility] (DEFAULT) [address] [place] [address] 80462 Chloride [Moles/Vol] 111 mmol/L High 98-108 [facility] Comment on above: Order Comment: To be collected on POD1 Performed By: #### C A, IPB, MGO, CHM7 #### [facility] (DEFAULT) [address] [place] [address] 92736 CO2 [Moles/Vol] 19 mmol/L Low 21-31 [facility] Comment on above: Order Comment: To be collected on POD1 Performed By: #### C A, IPB, MGO, CHM7 #### [facility] (DEFAULT) [address] [place] [address] 02645 Creatinine [Mass/Vol] 2.17 mg/dL High 0.70-1.30 [facility] Comment on above: Order Comment: To be collected on POD1 Performed By: #### C A, IPB, MGO, CHM7 #### [facility] (DEFAULT) [address] [place] [address] 79866 GFR/1.73 sq M.predicted among non-blacks MDRD (S/P/Bld) [Vol rate/Area] 35 mL/min/{1.73_m2} Low >=60 [facility] Comment on above: Order Comment: To be collected on POD1 Result Comment: Repo rted eGFR is based on the CKD-EPI 2020 equation using creatinine, age, and sex. Performed By: #### C A, IPB, MGO, CHM7 #### [facility] (DEFAULT) [address] [place] [address] 42645 Glucose [Mass/Vol] 144 mg/dL High 70-99 [facility] Comment on above: Order Comment: To be collected on POD1 Performed By: #### Pamela Wayne, IPB, MGO, CHM7 #### [facility] (DEFAULT) [address] [place] [address] 46192 Osmolality [Osmolality] 306 mosm/kg High 278-305 [facility] Comment on above: Order Comment: To be collected on POD1 Performed By: #### C A, IPB, MGO, CHM7 #### [facility] (DEFAULT) [address] [place] [address] 97293 Potassium [Moles/Vol] 5.5 mmol/L High 3.5-5.0 [facility] Comment on above: Order Comment: To be collected on POD1 Performed By: #### C A, IPB, MGO, CHM7 #### [facility] (DEFAULT) [address] [place] [address] 17456 Sodium [Moles/Vol] 138 mmol/L Normal 135-145 [facility] Comment on above: Order Comment: To be collected on POD1 Performed By: #### C A, IPB, MGO, CHM7 #### [facility] (DEFAULT) [address] [place] [address] 74140 Urea nitrogen [Mass/Vol] 45 mg/dL High 7-25 [facility] Comment on above: Order Comment: To be collected on POD1 Performed By: #### C A, IPB, MGO, CHM7 #### [facility] (DEFAULT) [address] [place] [address] 77408 Urea nitrogen/Creatinine [Mass ratio] 21 mg/mg Normal [facility] Comment on above: Order Comment: To be collected on POD1 Performed By: #### C A, IPB, MGO, CHM7 #### [facility] (DEFAULT) [address] [place] [address] 08796 CONTINUOUS CARDIAC MONITORIN G STRIPon 03-24-2024 [facility] MAGNESIUMon 03-24-2024 Magnesium [Mass/Vol] 1.9 mg/dL 1.6 - 2 .6 mg/dL [facility] Magnesium [Mass/Vol] 1.9 mg/dL Normal 1.6-2.6 [facility] Comment on above: Order Comment: To be collected on POD1 Performed By: #### TERI Lamar MGO, CHM7 #### [facility] (DEFAULT) [address] [place] [address] No Panel Informationon 03-24 Interpretation and review of laboratory results Normal [facility] PHOSPHATE, INORGANICon 03-24 Phosphate [Mass/Vol] 2.7 mg/dL 2.2 - 4 .6 mg/dL [facility] Phosphorous 2.7 mg/dL Normal 2.2-4.6 [facility] Comment on above: Order Comment: To be collected on POD1 Performed By: #### TERI Lamar MGO, CHM7 #### [facility] (DEFAULT) [address] [address] POTASSIUMon 03-24-2024 Interpretation and review of laboratory results Normal [facility] Potassium [Moles/Vol] 5.0 mmol/L 3.5 - 5.0 mmol/L [facility] Potassium [Moles/Vol] 5.0 mmol/L Normal 3.5-5.0 [facility] Comment on above: Order Comment: First draw 6-8 hours after administration of potassium eliminating medications per Hyperkalemia treatment guideline. Performed By: #### L AB980 #### [facility] (DEFAULT) [address] [address] Potassium [Moles/Vol] 5.0 mmol/L Normal 3.5-5.0 [facility] Comment on above: Order Comment: To be collected on POD1 Performed By: #### TERI Lamar MGO, MILDRED7 #### [facility] (DEFAULT) [address] [address] POTASSIUMOrdered By: Liss Brito on 03-24-2024 Interpretation and review of laboratory results Normal [facility] Potassium [Moles/Vol] 5.0 mmol/L 3.5 - 5.0 mmol/L [facility] TACROLIMUS LEVEL, TROUGH (AL E DRUG LEVEL)on 03-24-2024 Tacrolimus, Trough 8.6 ng/mL Normal Bone [facility] ow Transplant: 5.0-15.0 Kidney/Pancr eatic Transplant: 0 to 3 months: 8.0-10.0, 3 to 12 months: 6.0-8.0, >12 months: 4.0-6.0 [facility] Comment on above: Order Comment: To be collected on POD1 Performed By: #### C A, IPB, MGO, CHM7 #### [facility] (DEFAULT) [address] [address] [place] RENAL TRANSPLANT SCANon 0 03-24-2024 US [...] have reviewed and approved this report. Normal [facility] US for transplanted kidney l imitedon 03-24-2024 [...] I have reviewed and approved this report. [facility] Radiology Study observation (narrative) [facility] US for transplanted kidney l imitedOrdered By: Isabelle Escobar on 03-24-2024 [facility] Work Phone: BASIC METABOLIC PANELon 03-02 Anion gap [Moles/Vol] 12 mmol/L 7 - 17 mmol/L [facility] Calcium [Mass/Vol] 9.3 mg/dL 8.6 - 10. 5 mg/dL [facility] Chloride [Moles/Vol] 111 mmol/L High 98 - 10 8 mmol/L [facility] CO2 [Moles/Vol] 20 mmol/L Low 21 - 31 mmol/L [facility] Creatinine [Mass/Vol] 2.08 mg/dL High 0.70 - 1.30 mg/dL [facility] eGFR, CKD-EPI, Male 37 Low - PINF [facility] Comment on above: Reported eGFR is bas ed on the CKD-EPI 2020 equation using creatinine, age, and sex. Glucose [Mass/Vol] 99 mg/dL 70 - 99 mg/dL [facility] Interpretation and review of laboratory results Abnormal [facility] Osmolality Calc [Osmolality] 303 [facility] Potassium [Moles/Vol] 5.1 mmol/L High 3.5 - 5.0 mmol/L [facility] Sodium [Moles/Vol] 138 mmol/L 135 - 145 mmol/L [facility] Urea nitrogen [Mass/Vol] 47 mg/dL High 7 - 25 mg/dL [facility] Urea nitrogen/Creatinine [Mass ratio] 23 mg/mg [facility] Anion gap [Moles/Vol] 12 mmol/L Normal 7-17 [facility] Comment on above: Performed By: #### C 7C #### [facility] (DEFAULT) [address] [place] [address] 10419 Calcium [Mass/Vol] 9.3 mg/dL Normal 8.6-10.5 [facility] Comment on above: Performed By: #### C 7C #### [facility] (DEFAULT) [address] [place] [address] 93674 Chloride [Moles/Vol] 111 mmol/L High 98-108 [facility] Comment on above: Performed By: #### C 7C #### [facility] (DEFAULT) [address] [place] [address] 58338 CO2 [Moles/Vol] 20 mmol/L Low 21-31 [facility] Comment on above: Performed By: #### C 7C #### [facility] (DEFAULT) [address] [place] [address] 77824 Creatinine [Mass/Vol] 2.08 mg/dL High 0.70-1.30 [facility] Comment on above: Performed By: #### C 7C #### [facility] (DEFAULT) [address] [place] [address] 90883 GFR/1.73 sq M.predicted among non-blacks MDRD (S/P/Bld) [Vol rate/Area] 37 mL/min/{1.73_m2} Low >=60 [facility] Comment on above: Result Comment: Repo rted eGFR is based on the CKD-EPI 2020 equation using creatinine, age, and sex. Performed By: #### C 7C #### [facility] (DEFAULT) [address] [place] [address] 01299 Glucose [Mass/Vol] 99 mg/dL Normal 70-99 [facility] Comment on above: Performed By: #### C 7C #### [facility] (DEFAULT) [address] [place] [address] 68022 Osmolality [Osmolality] 303 mosm/kg Normal 278-305 [facility] Comment on above: Performed By: #### C 7C #### [facility] (DEFAULT) [address] [place] [address] 29299 Potassium [Moles/Vol] 5.1 mmol/L High 3.5-5.0 [facility] Comment on above: Performed By: #### C 7C #### [facility] (DEFAULT) [address] [place] [address] 20027 Sodium [Moles/Vol] 138 mmol/L Normal 135-145 [facility] Comment on above: Performed By: #### C 7C #### [facility] (DEFAULT) [address] [place] [address] 14247 Urea nitrogen [Mass/Vol] 47 mg/dL High 7-25 [facility] Comment on above: Performed By: #### C 7C #### [facility] (DEFAULT) [address] [place] [address] 29866 Urea nitrogen/Creatinine [Mass ratio] 23 mg/mg Normal [facility] Comment on above: Performed By: #### C 7C #### [facility] (DEFAULT) [address] [place] [address] 95109 CONTINUOUS CARDIAC MONITORIN G STRIPon 03-23-2024 [facility] GLUCOSE POCon 03-23-2024 Glucose [Mass/Vol] 104 mg/dL High 70 - 99 mg/dL [facility] Interpretation and review of laboratory results Abnormal [facility] POC Sample Type CAPBL [facility] Test performed at address of the patient encounter. [facility] No Panel InformationOrdered By: Unassigned Pacs on 03-23-2024 [facility] Work Phone: Basophils Auto (Bld) [#/Vol] on 02-27-2024 Basophils (Bld) [#/Vol] 0.1 10 3/uL 0.0-0.1 [facility] Basophils/100 WBC Auto (Bld) on 02-27-2024 Basophils/100 WBC (Bld) 0.6 % 0.2-2.0 [facility] Cholesterol in LDL Calc [Mas s/Vol]on 02-27-2024 Cholesterol in LDL [Mass/Vol] 87.8 mg/dL [facility] Comment on above: <100 mg/dl [id number] 0-129 mg/dl NEAR OR ABOVE [id number] mg/dl BORDERLINE [id number] mg/dl HIGH>190 mg/dl VERY HIGH Cholesterol in VLDL Calc [Ma ss/Vol]on 02-27-2024 Cholesterol in VLDL [Mass/Vol] 25.2 mg/dL [facility] Eosinophils/100 WBC Auto (Bl d)on 02-27-2024 Eosinophils/100 WBC (Bld) 1.5 % 0.9-7.0 [facility] Erythrocyte distribution wid th Auto (RBC) [Ratio]on 02-27-2024 Erythrocyte distribution width (RBC) [Ratio] 12.1 % 11.0-15.0 [facility] Estimated glomerular filtrat ion rate (GFR) non- Americanon 02-27-2024 GFR/1.73 sq M.predicted among non-blacks MDRD (S/P/Bld) [Vol rate/Area] 24 mL/min/{1.73_m2} Low >=60 [facility] Globulin Calc (S) [Mass/Vol] on 02-27-2024 Globulin (S) [Mass/Vol] 3.5 g/dL [facility] Hematocrit Auto (Bld) [Volum e fraction]on 02-27-2024 Hematocrit (Bld) [Volume fraction] 33.0 % Low 42.0-54.0 [facility] Hemoglobin [Mass/volume] in Bloodon 02-27-2024 Hemoglobin (Bld) [Mass/Vol] 10.9 g/dL Low 14.0-18.0 [facility] Laboratory - Chemistry and C hemistry - challengeon 02-27-2024 Albumin [Mass/Vol] 4.1 g/dL 3.4-5.0 [facility] ALP [Catalytic activity/Vol] 81 U/L 46-116 [facility] ALT [Catalytic activity/Vol] 21 U/L 16-63 [facility] AST [Catalytic activity/Vol] 15 U/L 15-37 [facility] Bilirubin [Mass/Vol] 0.3 mg/dL 0.2-1.0 [facility] Calcium [Mass/Vol] 9.6 mg/dL 8.5-10.1 [facility] Chloride [Moles/Vol] 103 mmol/L 98-107 [facility] Cholesterol [Mass/Vol] 160 mg/dL <=200 [facility] Cholesterol in HDL [Mass/Vol] 47 mg/dL 40-60 [facility] Comment on above: > or =60 mg/dl - LOW CARDIOVASCULAR RISK<40 mg/dl - HIGH CARDIOVASCULAR RISK CO2 [Moles/Vol] 24.1 mmol/L 21.0-32.0 [facility] Creatinine [Mass/Vol] 2.77 mg/dL High 0.70-1.30 [facility] GFR/1.73 sq M.predicted MDRD (S/P/Bld) [Vol rate/Area] 29 mL/min/{1.73_m2} Low >=60 [facility] Glucose [Mass/Vol] 93 mg/dL 74-106 [facility] Potassium [Moles/Vol] 4.7 mmol/L 3.5-5.1 [facility] Protein [Mass/Vol] 7.6 g/dL 6.4-8.2 [facility] Sodium [Moles/Vol] 138 mmol/L 136-145 [facility] Triglyceride [Mass/Vol] 126 mg/dL <=150 [facility] Urea nitrogen [Mass/Vol] 55.0 mg/dL High 7.0-18.0 [facility] Urea nitrogen/Creatinine [Mass ratio] 19.9 mg/mg [facility] Bilirubin Ql (U) Negative NEGATIVE [facility] Glucose (U) [Mass/Vol] Negative NEGATIVE [facility] Ketones Ql (U) Negative NEGATIVE [facility] pH (U) 6.0 [pH] 5.0-9.0 [facility] Specific gravity (U) [Rel density] 1.015 1.005-1.025 [facility] Urobilinogen Qn (U) 0.2 {Brodie'U}/dL 0.2-1.0 [facility] Laboratory - Hematology and Cell countson 02-27-2024 Immature granulocytes/100 WBC (Bld) 0.2 % 0.0-0.5 [facility] Laboratory - Specimen inform ationon 02-27-2024 Appearance (U) CLEAR CLEAR [facility] Color (U) LT. YELLOW YELLOW [facility] Laboratory - Urinalysison Leukocyte esterase Test strip Ql (U) Negative NEGATIVE [facility] Nitrite Ql (U) Negative NEGATIVE [facility] Protein Ql (U) Negative NEG/TRACE [facility] Leukocytes [#/volume] correc july for nucleated erythrocytes in Blood by Automated counon 02-27-2024 WBC corrected for nucl RBC Auto (Bld) [#/Vol] 8.2 10 3/uL 4.0-11.0 [facility] Lymphocytes Auto (Bld) [#/Vo l]on 02-27-2024 Lymphocytes (Bld) [#/Vol] 1.9 10 3/uL 1.2-3.8 [facility] Lymphocytes/100 WBC Auto (Bl d)on 02-27-2024 Lymphocytes/100 WBC (Bld) 22.8 % 20.5-60.0 [facility] MCH Auto (RBC) [Entitic mass ]on 02-27-2024 MCH (RBC) [Entitic mass] 29.8 pg 25.9-34.0 [facility] MCHC Auto (RBC) [Mass/Vol]on 02-27-2024 MCHC (RBC) [Mass/Vol] 33.0 g/dL 29.9-35.2 [facility] MCV Auto (RBC) [Entitic vol] on 02-27-2024 MCV (RBC) [Entitic vol] 90.2 fL 80.0-94.0 [facility] Monocytes Auto (Bld) [#/Vol] on 02-27-2024 Monocytes (Bld) [#/Vol] 0.5 10 3/uL 0.3-0.8 [facility] Monocytes/100 WBC Auto (Bld) on 02-27-2024 Monocytes/100 WBC (Bld) 5.5 % 1.7-12.0 [facility] Neutrophils Auto (Bld) [#/Vo l]on 02-27-2024 Neutrophils (Bld) [#/Vol] 5.7 10 3/uL 1.4-6.5 [facility] Neutrophils/100 WBC Auto (Bl d)on 02-27-2024 Neutrophils/100 WBC (Bld) 69.4 % 43.0-75.0 [facility] No Panel Informationon 02-26 Eosinophils # (Auto) 0.1 10 3/uL 0.0-0.7 [facility] Immature Granulocyte # (Auto) 0.02 10 3/uL 0.00-0.03 [facility] Prostate Specific Antigen Screen 1.95 ng/mL <=4.00 [facility] Urine Microscopic Review NO [facility] Urine Occult Blood Negative NEGATIVE [facility] Platelet mean volume Auto (B ld) [Entitic vol]on 02-27-2024 Platelet mean volume (Bld) [Entitic vol] 11.1 fL 9.5-13.5 [facility] Platelets Auto (Bld) [#/Vol] on 02-27-2024 Platelets (Bld) [#/Vol] 203 10 3/uL 150-450 [facility] RBC Auto (Bld) [#/Vol]on RBC (Bld) [#/Vol] 3.66 10 6/uL Low 4.70-6.10 [facility] Serum or plasma albumin/glob ulin mass ratioon 02-27-2024 Albumin/Globulin [Mass ratio] 1.2 {ratio} [facility] Serum or plasma anion gap de terminationon 02-27-2024 Anion gap [Moles/Vol] 15.6 mmol/L [facility] Serum or plasma total choles terol/high density lipoprotein (HDL) cholesterol mass lotus 02-27-2024 Cholesterol.total/Chol esterol in HDL [Mass ratio] 3.4 {ratio} [facility] Comment on above: 3.3 - 4.4 LOW RISK4. 4 - 7.1 AVERAGE RISK7.1 - 11.0 MODERATE RISK>11.0 HIGH RISK CBC AND ELECTRONIC DIFFon Basophils (Bld) [#/Vol] 0.05 10*3/uL 0.00 - 0.09 K/uL [facility] Basophils/100 WBC (Bld) 0.5 % [facility] Differential cell count method Nom (Bld) Electronic Differential [facility] Eosinophils (Bld) [#/Vol] 0.16 10*3/uL 0.00 - 0.48 K/uL [facility] Eosinophils/100 WBC (Bld) 1.5 % [facility] Erythrocyte distribution width (RBC) [Ratio] 12.2 % 10.9 - 14.3 % [facility] Hematocrit (Bld) [Volume fraction] 34.6 % Low 39.6 - 48.8 % [facility] Hemoglobin (Bld) [Mass/Vol] 11.2 g/dL Low 13.4 - 16.8 g/dL [facility] Immature granulocytes (Bld) [#/Vol] 0.04 10*3/uL NINF - 0.07 K/uL [facility] Immature granulocytes/100 WBC (Bld) 0.4 % [facility] Interpretation and review of laboratory results Abnormal [facility] Lymphocytes (Bld) [#/Vol] 2.14 10*3/uL 0.83 - 3.57 K/uL [facility] Lymphocytes/100 WBC (Bld) 20.3 % [facility] MCH (RBC) [Entitic mass] 29.3 pg 26.1 - 33.3 pg [facility] MCHC (RBC) [Mass/Vol] 32.4 g/dL 31.9 - 36.5 g/dL [facility] MCV (RBC) [Entitic vol] 90.6 fL 79.0 - 94.5 fL [facility] Monocytes (Bld) [#/Vol] 0.50 10*3/uL 0.24 - 0.93 K/uL [facility] Monocytes/100 WBC (Bld) 4.7 % [facility] Neutrophils (Bld) [#/Vol] 7.65 10*3/uL High 1.57 - 6.19 K/uL [facility] Nucleated RBC/100 WBC (Bld) [Ratio] 0.0 % NINF [facility] Platelet mean volume (Bld) [Entitic vol] 11.1 fL 8.7 - 12.3 fL [facility] Platelets (Bld) [#/Vol] 218 10*3/uL 146 - 337 K/uL [facility] RBC (Bld) [#/Vol] 3.82 10*6/uL Low [facility] Segmented neutrophils/100 WBC (Bld) 72.6 % [facility] WBC (Bld) [#/Vol] 10.54 10*3/uL High 3.73 - 10 .10 K/uL [facility] Basophils (Bld) [#/Vol] 0.05 10*3/uL Normal 0.00-0.09 [facility] Comment on above: Performed By: #### C 7C #### [facility] (DEFAULT) [address] [place] [address] Basophils/100 WBC (Bld) 0.5 % Normal [facility] Comment on above: Performed By: #### C 7C #### [facility] (DEFAULT) [address] [place] [address]994 DIFF STATUS Electronic Differential Normal [facility] Comment on above: Performed By: #### C 7C #### [facility] (DEFAULT) [address] [place] [address] Eosinophils (Bld) [#/Vol] 0.16 10*3/uL Normal 0.00-0.48 [facility] Comment on above: Performed By: #### C 7C #### [facility] (DEFAULT) [address] [place] [address] Eosinophils/100 WBC (Bld) 1.5 % Normal [facility] Comment on above: Performed By: #### C 7C #### [facility] (DEFAULT) [address] [place] [address] Hematocrit (Bld) [Volume fraction] 34.6 % Low 39.6-48.8 [facility] Comment on above: Performed By: #### C 7C #### [facility] (DEFAULT) [address] [place] [address]471 Hemoglobin (Bld) [Mass/Vol] 11.2 g/dL Low 13.4-16.8 [facility] Comment on above: Performed By: #### C 7C #### [facility] (DEFAULT) [address] [place] [address] Immature Grans % 0.4 % Normal [facility] Comment on above: Performed By: #### C 7C #### [facility] (DEFAULT) [address] [place] [address] 97869 Immature Grans Absolute 0.04 K/uL Normal <=0.07 [facility] Comment on above: Performed By: #### C 7C #### [facility] (DEFAULT) [address] [place] [address]69 Lymphocytes (Bld) [#/Vol] 2.14 10*3/uL Normal 0.83-3.57 [facility] Comment on above: Performed By: #### C 7C #### [facility] (DEFAULT) [address] [place] [address]44 Lymphocytes/100 WBC (Bld) 20.3 % Normal [facility] Comment on above: Performed By: #### C 7C #### [facility] (DEFAULT) [address] [place] [address]28 MCV (RBC) [Entitic vol] 90.6 fL Normal 79.0-94.5 [facility] Comment on above: Performed By: #### C 7C #### [facility] (DEFAULT) [address] [address] Mean Cell Hgb 29.3 pg Normal 26.1-33.3 [facility] Comment on above: Performed By: #### C 7C #### [facility] (DEFAULT) [address] [place] [address]15 Mean Cell Hgb Conc 32.4 g/dL Normal 31.9-36.5 [facility] Comment on above: Performed By: #### C 7C #### [facility] (DEFAULT) [address] [place] [address]70 Monocytes (Bld) [#/Vol] 0.50 10*3/uL Normal 0.24-0.93 [facility] Comment on above: Performed By: #### C 7C #### [facility] (DEFAULT) [address] [address] Monocytes/100 WBC (Bld) 4.7 % Normal [facility] Comment on above: Performed By: #### C 7C #### [facility] (DEFAULT) [address] [place] [address]50 Nucleated RBC 0.0 /100 WBC Normal <=0.2 [facility] Comment on above: Performed By: #### C 7C #### [facility] (DEFAULT) [address] [place] [address]755 Platelet mean volume (Bld) [Entitic vol] 11.1 fL Normal 8.7-12.3 [facility] Comment on above: Performed By: #### C 7C #### [facility] (DEFAULT) [address] [address] Platelets (Bld) [#/Vol] 218 10*3/uL Normal 146-337 [facility] Comment on above: Performed By: #### C 7C #### [facility] (DEFAULT) [address] [address] RBC (Bld) [#/Vol] 3.82 10*6/uL Low 4.38-5.83 [facility] Comment on above: Performed By: #### C 7C #### [facility] (DEFAULT) [address] [place] [address] RBC Distribution 12.2 % Normal 10.9-14.3 [facility] Comment on above: Performed By: #### C 7C #### [facility] (DEFAULT) [address] [place] [address] Segs + Bands Auto 72.6 % Normal [facility] Comment on above: Performed By: #### Pamela 7C #### [facility] (DEFAULT) [address] [address] Segs + Bands,Absolute Auto 7.65 K/uL High 1.57-6.19 [facility] Comment on above: Performed By: #### C 7C #### [facility] (DEFAULT) [address] [place] [address]509 WBC (Bld) [#/Vol] 10.54 10*3/uL High 3.73-10.10 [facility] Comment on above: Performed By: #### C 7C #### [facility] (DEFAULT) [address] [place] [address] COMPREHENSIVE METABOLIC PANE Abel 02-25-2024 Albumin [Mass/Vol] 4.6 g/dL 3.5 - 5.0 g/dL [facility] ALP [Catalytic activity/Vol] 71 U/L 32 - 126 U/L [facility] ALT [Catalytic activity/Vol] 13 U/L 10 - 52 U/L [facility] Anion gap [Moles/Vol] 12 mmol/L 7 - 17 mmol/L [facility] AST [Catalytic activity/Vol] 15 U/L 10 - 39 U/L [facility] Bilirubin [Mass/Vol] 0.4 mg/dL NINF - 1.5 mg/dL [facility] Calcium [Mass/Vol] 10.0 mg/dL 8.6 - 10. 5 mg/dL [facility] Chloride [Moles/Vol] 102 mmol/L 98 - 10 8 mmol/L [facility] CO2 [Moles/Vol] 26 mmol/L 21 - 31 mmol/L [facility] Creatinine [Mass/Vol] 2.65 mg/dL High 0.70 - 1.30 mg/dL [facility] eGFR, CKD-EPI, Male 27 Low - PINF [facility] Comment on above: Reported eGFR is bas ed on the CKD-EPI 2020 equation using creatinine, age, and sex. Glucose [Mass/Vol] 95 mg/dL 70 - 99 mg/dL [facility] Interpretation and review of laboratory results Abnormal [facility] Osmolality Calc [Osmolality] 297 [facility] Potassium [Moles/Vol] 5.0 mmol/L 3.5 - 5.0 mmol/L [facility] Protein [Mass/Vol] 7.8 g/dL 6.4 - 8.3 g/dL [facility] Sodium [Moles/Vol] 135 mmol/L 135 - 145 mmol/L [facility] Urea nitrogen [Mass/Vol] 45 mg/dL High 7 - 25 mg/dL [facility] Urea nitrogen/Creatinine [Mass ratio] 17 mg/mg [facility] Albumin [Mass/Vol] 4.6 g/dL Normal 3.5-5.0 [facility] Comment on above: Performed By: #### C 7C #### [facility] (DEFAULT) [address] [place] [address] ALP [Catalytic activity/Vol] 71 U/L Normal 32-126 [facility] Comment on above: Performed By: #### C 7C #### [facility] (DEFAULT) [address] [place] [address] ALT [Catalytic activity/Vol] 13 U/L Normal 10-52 [facility] Comment on above: Performed By: #### C 7C #### [facility] (DEFAULT) [address] [place] [address] Anion gap [Moles/Vol] 12 mmol/L Normal 7-17 [facility] Comment on above: Performed By: #### C 7C #### [facility] (DEFAULT) [address] [place] [address] AST [Catalytic activity/Vol] 15 U/L Normal 10-39 [facility] Comment on above: Performed By: #### C 7C #### [facility] (DEFAULT) [address] [place] [address]643 Bilirubin [Mass/Vol] 0.4 mg/dL Normal <1.5 [facility] Comment on above: Performed By: #### C 7C #### [facility] (DEFAULT) [address] [place] [address] Calcium [Mass/Vol] 10.0 mg/dL Normal 8.6-10.5 [facility] Comment on above: Performed By: #### C 7C #### [facility] (DEFAULT) [address] [place] [address] Chloride [Moles/Vol] 102 mmol/L Normal 98-108 [facility] Comment on above: Performed By: #### C 7C #### [facility] (DEFAULT) [address] [place] [address] CO2 [Moles/Vol] 26 mmol/L Normal 21-31 [facility] Comment on above: Performed By: #### C 7C #### [facility] (DEFAULT) [address] [place] [address] Creatinine [Mass/Vol] 2.65 mg/dL High 0.70-1.30 [facility] Comment on above: Performed By: #### C 7C #### [facility] (DEFAULT) [address] [place] [address] GFR/1.73 sq M.predicted among non-blacks MDRD (S/P/Bld) [Vol rate/Area] 27 mL/min/{1.73_m2} Low >=60 [facility] Comment on above: Result Comment: Repo rted eGFR is based on the CKD-EPI 2020 equation using creatinine, age, and sex. Performed By: #### C 7C #### [facility] (DEFAULT) [address] [address] Glucose [Mass/Vol] 95 mg/dL Normal 70-99 [facility] Comment on above: Performed By: #### C 7C #### [facility] (DEFAULT) [address] [place] [address] Osmolality [Osmolality] 297 mosm/kg Normal 278-305 [facility] Comment on above: Performed By: #### C 7C #### [facility] (DEFAULT) [address] [address] Potassium [Moles/Vol] 5.0 mmol/L Normal 3.5-5.0 [facility] Comment on above: Performed By: #### C 7C #### [facility] (DEFAULT) [address] [address] Protein [Mass/Vol] 7.8 g/dL Normal 6.4-8.3 [facility] Comment on above: Performed By: #### C 7C #### [facility] (DEFAULT) [address] [address] Sodium [Moles/Vol] 135 mmol/L Normal 135-145 [facility] Comment on above: Performed By: #### C 7C #### [facility] (DEFAULT) [address] [place] [address] Urea nitrogen [Mass/Vol] 45 mg/dL High 01-22 [facility] Comment on above: Performed By: #### C 7C #### [facility] (DEFAULT) [address] [place] [address] Urea nitrogen/Creatinine [Mass ratio] 17 mg/mg Normal [facility] Comment on above: Performed By: #### C 7C #### [facility] (DEFAULT) [address] [place] [address] TYPE AND SCREEN - PREADMISSI ONon 02-25-2024 ABO/RH(D) TYPE Positive [facility] ABO/RH(D) TYPE Positive Normal [facility] Comment on above: Performed By: #### C A, TERI, MGO, CHM7 #### [facility] (DEFAULT) [address] [place] [address] Outdate Specimen 03/25/2024 08:56 Normal [facility] Comment on above: Performed By: #### C Tone, JANEB, MGO, CHM7 #### [facility] (DEFAULT) [address] [place] [address] EAR CERUMEN REMOVALon 2023 Rodrigo Saravia MD 12/04/2023 11:45 AM EAR CERUMEN REMOVAL Date/Time: 12/04/2023 11:00 AM Performed by: Rodrigo Saravia MD Authorized by: Rodrigo Saravia MD Procedure: Visualization: otoscopy Impaction noted: yes Location details: Right ear Procedure type: curette Patient tolerance: Tolerated well, no immediate complications [facility] Radiology Study observation (narrative) [facility] H. PYLORI STOOL AGon 024 H. PYLORI STOOL AG Negative Normal [facility] Comment on above: Result Comment: Refe rence range: Negative PERFORMED AT [facility] Performed By: #### L HPYG #### Testing performed at [facility] [address] [address] [place] [address] FAX REQUESTon 11-21-2023 FAX TO [phone] and [phone] Normal [facility] Comment on above: Performed By: #### L HPYG #### Testing performed at [facility] [address] [place] [address] [place] [address] FAX REQUESTon 11-20-2023 FAX TO [phone] Normal [facility] HEMOGLOBIN A1Con 11-20-2023 Glucose [Mass/Vol] 114 mg/dL Normal [facility] HbA1c (Bld) [Mass fraction] 5.6 % Normal 0-6 [facility] Comment on above: Result Comment: NORMAL <5.7% PREDIABETES 5.7-6.4% DIABETES 6.5% OR HIGHER PTH INTACTOrdered By: Kaia Ni on 10-01-2023 Interpretation and review of laboratory results Abnormal [facility] Parathyrin.intact [Mass/Vol] 76.2 pg/mL High 14.0 - 72.0 pg/mL [facility] CBC,PLATELETSon 09-30-2023 Erythrocyte distribution width (RBC) [Ratio] 12.7 % 10.9 - 14.3 % [facility] Hematocrit (Bld) [Volume fraction] 37.8 % Low 39.6 - 48.8 % [facility] Hemoglobin (Bld) [Mass/Vol] 12.2 g/dL Low 13.4 - 16.8 g/dL [facility] Interpretation and review of laboratory results Abnormal [facility] MCH (RBC) [Entitic mass] 28.7 pg 26.1 - 33.3 pg [facility] MCHC (RBC) [Mass/Vol] 32.3 g/dL 31.9 - 36.5 g/dL [facility] MCV (RBC) [Entitic vol] 88.9 fL 79.0 - 94.5 fL [facility] Platelet mean volume (Bld) [Entitic vol] 11.2 fL 8.7 - 12.3 fL [facility] Platelets (Bld) [#/Vol] 191 10*3/uL 146 - 337 K/uL [facility] RBC (Bld) [#/Vol] 4.25 10*6/uL Low [facility] WBC (Bld) [#/Vol] 8.38 10*3/uL 3.73 - 10. 10 K/uL [facility] COMPREHENSIVE METABOLIC PANE Abel 09-30-2023 Albumin [Mass/Vol] 4.4 g/dL 3.5 - 5.0 g/dL [facility] ALP [Catalytic activity/Vol] 60 U/L 32 - 126 U/L [facility] ALT [Catalytic activity/Vol] 11 U/L 10 - 52 U/L [facility] Anion gap [Moles/Vol] 16 mmol/L 7 - 17 mmol/L [facility] AST [Catalytic activity/Vol] 12 U/L 10 - 39 U/L [facility] Bilirubin [Mass/Vol] 0.3 mg/dL NINF - 1.5 mg/dL [facility] Calcium [Mass/Vol] 9.7 mg/dL 8.6 - 10. 5 mg/dL [facility] Chloride [Moles/Vol] 105 mmol/L 98 - 10 8 mmol/L [facility] CO2 [Moles/Vol] 25 mmol/L 21 - 31 mmol/L [facility] Creatinine [Mass/Vol] 1.72 mg/dL High 0.70 - 1.30 mg/dL [facility] eGFR, CKD-EPI, Male 48 Low - PINF [facility] Comment on above: Reported eGFR is bas ed on the CKD-EPI 2020 equation using creatinine, age, and sex. Glucose [Mass/Vol] 78 mg/dL 70 - 99 mg/dL [facility] Interpretation and review of laboratory results Abnormal [facility] Osmolality Calc [facility]olality] [facility] Potassium [Moles/Vol] 5.0 mmol/L 3.5 - 5.0 mmol/L [facility] Protein [Mass/Vol] 6.9 g/dL 6.4 - 8.3 g/dL [facility] Sodium [Moles/Vol] 141 mmol/L 135 - 145 mmol/L [facility] Urea nitrogen [Mass/Vol] 31 mg/dL High 7 - 25 mg/dL [facility] Urea nitrogen/Creatinine [Mass ratio] 18 mg/mg [facility] FERRITINon 09-30-2023 Ferritin [Mass/Vol] 381.3 ng/mL High 10.5 - 3 07.3 ng/mL [facility] Interpretation and review of laboratory results Abnormal [facility] FOLATE, SERUMOrdered By: Guerrero Wick on 09-30-2023 Folate [Mass/Vol] 44.78 ng/mL 5.38 - PIN F ng/mL [facility] Interpretation and review of laboratory results Normal [facility] IRON/IRON BINDING/TRANSFERRI Non 09-30-2023 Interpretation and review of laboratory results Normal [facility] Iron [Mass/Vol] 91 ug/dL [facility] Iron binding capacity [Mass/Vol] 295 [facility] Iron saturation [Mass fraction] 31 % 20 - 55 % [facility] Transferrin [Mass/Vol] 236 mg/dL 200 - 400 mg/dL [facility] No Panel Informationon 09-29 [facility] VITAMIN B12on 09-30-2023 Cobalamin (Vitamin B12) [Mass/Vol] 513 pg/mL 211 - 911 pg/mL [facility] Comment on above: Testing of Methylmal onic Acid and Intrinsic Factor Blocking Antibody are recommended if clinical suspicion for pernicious anemia due to B12 deficiency is high for patients with intermediate B12 levels (211 to 400 pg/mL) to rule out spurious heterophile antibodies. Interpretation and review of laboratory results Normal [facility] VITAMIN D (25-HYDROXY,TOTAL) on 09-30-2023 Interpretation and review of laboratory results Normal [facility] Vitamin D+Metabolites [Mass/Vol] 41.0 ng/mL 30.0 - 100.0 ng/mL [facility] Comment on above: <10 Deficiency 10-29 Insufficiency 30-100 Optimal Level >100 Possible Toxicity Vitamin D values hav e been shown to be falsely decreased in lipemic samples and should be interpreted with caution. [facility] INTERVENTIONAL UPPER ENDOSCO PYon 2023 [facility] [place] [facility] Patient Name: Zoie Heath Procedure Date: 2023 9:29 AM Date of : 1965 Admit Type: Outpatient Age: 58 Room: [place] [address] Gender: Male Note Status: Finalized Attending MD: Schuyler Sparks MD, [id number] Procedure: Upper GI endoscopy Indications: Surveillance procedure, [...] the patient. Procedure Code(s): --- Professional --- 82837, Esophagogastroduodeno scopy, flexible, transoral; diagnostic, including collection of specimen(s) by brushing or washing, when performed (separate procedure) Diagnosis Code(s): --- Professional --- Z98.84, Bariatric surgery status R10.13, Epigastric pain R12, Heartburn Z09, Encounter for follow-up examination after completed treatment for conditions other than (more content not included)... LAB, [facility] Radiology Study observation (narrative) [facility] No Panel Informationon 03-11 IMPRESSION: Radiographically negative [...] Radiographically negative right foot and right ankle. [facility] No Panel InformationOrdered By: Felix Adame on 03-11-2023 [facility] Work Phone: XR ANKLE RIGHT 3+ [...] negative right foot and right ankle. Normal [facility] XR FOOT RIGHT 3 VIEWSon 03-01 XR [...] negative right foot and right ankle. Normal [facility] XR Ankle - right 3 Viewson 0 03-10-2023 Radiology Study observation (narrative) [facility] XR Foot - right 3 Viewson Radiology Study observation (narrative) [facility] PSA, REFLEX TO FREE AND TOTA L PSAon 01-04-2022 Interpretation and review of laboratory results Normal [facility] Prostate specific Ag [Mass/Vol] 0.68 ng/mL <=4.00 [facility] Comment on above: This test was perfor med on the Siemens Socialspiel IM Immunoassay platform which is a 2-step sandwich chemiluminescent immunoassay. It is important to note that assays using different manufacturers and/or methods may not be comparable. [facility] TYPE AND SCREEN - PREADMISSI ONon 01-04-2022 ABO/RH(D) TYPE Positive [facility] XR Spine Lumbar and Sacrum 5 Viewson [...] acute fracture or dislocation. No significant degeneration. [facility] XR Spine Lumbar and Sacrum 5 ViewsOrdered By: Radha Tejada on 10-13-2021 [facility] Work Phone: US Kidneyon 10-12-2021 IMPRESSION: [...] technique is similar to CT from 12/25/2019. [facility] Radiology Study observation (narrative) [facility] US KidneyOrdered By: Trisha Gonzalez on 10-12-2021 [facility] Work Phone: XR Spine Lumbar and Sacrum 5 Viewson 10-12-2021 Radiology Study observation (narrative) [facility] POCT URINALYSIS DIPSTICK AUT OMATED W/O SCOPon 10-09-2021 Amorphous sediment LM Ql (Urine sed) [facility] Appearance (U) CLEAR [facility] Bacteria LM Ql (Urine sed) [facility] Bilirubin Ql (U) Negative [facility] Casts LM.LPF (Urine sed) [#/Area] [facility] Color (U) YELLOW [facility] Crystals LM Nom (Urine sed) [facility] Epithelial cells.squamous LM.HPF (Urine sed) [#/Area] [facility] Flow cytometry specialist review Vikas (Unsp spec) [Interp] [facility] Glucose Auto test strip (U) [Mass/Vol] Negative mg/dL [facility] Interpretation and review of laboratory results Normal [facility] Ketones [Mass/Vol] Negative mg/dL [facility] Leukocyte esterase Qn (U) [facility] Leukocyte esterase Test strip Ql (U) Negative [facility] Nitrite Ql (U) Negative [facility] pH (U) 7.0 [pH] [facility] Protein Ql (U) Negative mg/dL [facility] RBC LM.HPF (Urine sed) [#/Area] [facility] RBC Ql (U) Negative [facility] Specific gravity (U) [Rel density] 1.025 [facility] Transitional cells LM Ql (Urine sed) [facility] Urobilinogen Qn (U) 0.2 [facility] WBC LM.HPF (Urine sed) [#/Area] [facility] ECG 12 lead ECGon 08-06-2018 ECG 12 lead ECG [facility] [place] [address] Electrocardiograph Report Signed Patient: Zoie Heath MR#: [id number] : 1965 Acct:[id number] Age/Sex: 53 / M ADM Date: 08/06/18 Loc: DC Room: Type: [facility] Attending Dr: Familia Stringer MD Ordering [...] [id number] Signed By: 08/06/18 1203 [facility] Abel 08-06-2018 L - -------- Specimen: [id number] Received: 08/06/18 Status: JHOANACatie Laura Num: [id number] Spec Type: Surgical Subm Dr: Familia Stringer MD Tissues: A Fistula (LT UP ARM FISTULA) Procedures: Agnes Mora/Isatu L3 -------- Patient Age/Sex Location Account Attending Physician -------- Zoie Heath/M DC [id number] Familia Stringer MD -------- SPEC NUM: [id number] RECD: 08/06/18 STATUS: EMILIE GASTELUM NUM: [id number] ZULEIMA: 08/06/18 [facility] DR: Familia Stringer MD ENTERED: 08/06/[address] [facility] [address]: ADAM TYPE: Surgical DEPT: S ENTERED BY: [id number] RECV BY: [id number] ORDERED: HE Stain, Gross/Micro L3 ORDERED: HE [...] specimen is red, laminated, gelatinous blood clot. Sustainability Executive Director sections are submitted in one cassette. (OCTAVIO/ORACIO/mary anne) Microscopic One glass slide with H E stained material has been examined. The microscopic findings support the above pathologic diagnosis. 67523 A. Fistula - LT UP ARM FISTULA -------- -------- Specimen: [id number] Received: 08/06/18 Status: EMILIE Gastelum Num: [id number] Spec Type: Surgical Subm Dr: Familia Stringer MD Tissues: A Fistula (LT UP ARM FISTULA) Procedures: HE Stain, Gross/Micro L3 -------- Patient: Zoie Heath [id number] (Continued) -------- Signed (signature on file) Jone Bentley MD 08/07/18 1512 Normal [facility] Potassiumon 08-06-2018 Potassium molar conc 4.9 mmol/L Normal 3.5-5.1 [facility] Comment on above: Result Comment: PERF ORMED BY: [facility] [address] [place] [address] PATHOLOGIST FACTORY MANAGER CLARIBEL MCKENZIE M.D. Performed By: #### K #### [facility] [address] CBC, PLATELETS PANEL, MANUAL ENTERon 05-28-2018 [...] LAB, [facility] Fax Requeston 01-28-2017 Fax To [phone] [facility] Comment on above: Performed By: #### F X ####[facility] [address] [place] [address] lab Director: Dr. Bryce Vaughn DO Faxed By PAY 12:58 01/28/17 [facility] Comment on above: Performed By: #### F X ####[facility] [address] [place], [place] [address] lab Director: Dr. Bryce Vaughn DO Specimen # [id number] [facility] Comment on above: Performed By: #### F X ####[facility] [address] [place] [address] lab Director: Dr. Bryce Vaughn DO Tacrolimus Lvlon 01-28-2017 Last Dose 01.27.17 at 2245 [facility] Comment on above: Performed By: #### L TAC ####[facility] [place] [id number] Tacrolimus Level See Ref. Lab report Normal [facility] Comment on above: Performed By: #### L TAC ####[facility] [address] [place] [address] Fax Requeston 01-21-2017 Fax To [phone] [facility] Comment on above: Performed By: #### F X ####[facility] [address] [place] [address] lab Director: Dr. Bryce Vaughn DO Faxed By [facility] 01/21/17 @ 1112 [facility] Comment on above: Performed By: #### F X ####[facility] [address] [place] [address] lab Director: Dr. Bryce Vaughn, Lipid Profileon 01-21-2017 Cholesterol 124 mg/dL Normal 100 - 199 [facility] Comment on above: Performed By: #### L IP2 ####[facility] [address] [place] [address] Cholesterol in VLDL mass conc 13.0 mg/dL Normal <50.0 [facility] Comment on above: Performed By: #### L IP2 ####[facility] [address] [place] [address] Comment Normal [facility] Comment on above: Result Comment: Lito martin Reference RangeDesirable <200 mg/dLBoderline High 200-239mg/dLHigh >240 mg/dL Performed By: #### L IP2 ####[facility] [address] [facility] [address] Coronary Risk 2.88 Normal [facility] Comment on above: Performed By: #### L IP2 ####[facility] [address] [place] [address] Coronary Risk Ref Text Normal [facility] Comment on above: Result Comment: Risk Ratio Men Women1/2 Average 3.433.27Average 4.97 4.442X Average 9.55 7.053X Civmkkn74.99 11.04 Performed By: #### L IP2 ####[facility] [address] [place] [address] HDL Cholesterol 43 mg/dL Normal 40 - 60 [facility] Comment on above: Performed By: #### L IP2 ####[facility] [address] [place] [address] LDL Cholesterol 68 mg/dl Normal 0 - 100 [facility] Comment on above: Performed By: #### L IP2 ####[facility] [address] [place] [address] Specimen # [id number] [facility] Comment on above: Performed By: #### L IP2 ####[facility] [address] [place] [address] Triglyceride 65 mg/dL Normal <150 [facility] Comment on above: Performed By: #### L IP2 ####[facility] [address] [place] [address] Tacrolimus Lvlon 01-21-2017 Last Dose 01.20.2017 AT 2300 [facility] Comment on above: Performed By: #### L TAC ####[facility] [address] [place] [address] Performed By [facility] Comment on above: Performed By: #### L TAC ####[facility] [address] [facility], [place] [address] [facility] Director: Dr. Bryce Vaughn, DO Specimen # [id number] [facility] Comment on above: Performed By: #### L TAC ####[facility] [address] [place] [address] lab Director: Dr. Bryce Vaughn DO Performed By: #### F X ####[facility] [address] [place] [address] lab Director: Dr. Bryce Vaughn DO Tacrolimus Level See Ref. Lab report [facility] Comment on above: Performed By: #### L TAC ####[facility] [place] [address] Tacrolimus Lvl 7.4 [facility] Comment on above: Performed By: #### L TAC ####[facility] [address] [place] [address] lab Director: Dr. Bryce Vaughn DO Tacrolimus Lvl Ref Text [facility] Comment on above: Result Comment: Refe rence range: 2.0 to 20.0 Unit: ng/mL(NOTE) Trough (immediately following transplant) 15.0 Trough (steady state, 2 weeks or more after transplant): 3.0 - 8.0 Detection Limit = 1.0 Performed by LC-MS/MS technology.PERFORMED AT [facility] Performed By: #### L TAC ####[facility] [address] [place] [address] lab Director: Dr. Bryce Vaughn DO Radiologyon [...] aligned. No other acute osseous abnormalities noted. Normal [facility] Tacrolimus Lvlon 01-14-2017 Last Dose 01-13-17 AT 2200 [facility] Comment on above: Performed By: #### L TAC ####[facility] [place] [address] Performed By [facility] Comment on above: Performed By: #### L TAC ####[facility] [address] [place] [address] lab Director: Dr. Bryce Vaughn, DO Specimen # [id number] [facility] Comment on above: Performed By: #### L TAC ####[facility] [address] [place] [id number] lab Director: Dr. Bryce Vaughn, Tacrolimus Level See Ref. Lab report [facility] Comment on above: Performed By: #### L TAC ####[facility] [address] [place] [address] Tacrolimus Lvl 8.7 [facility] Comment on above: Performed By: #### L TAC ####[facility] [address] [place] [id number] lab Director: Dr. Bryce Vaughn, DO Tacrolimus Lvl Ref Text [facility] Comment on above: Result Comment: Refe rence range: 2.0 to 20.0 Unit: ng/mL(NOTE) Trough (immediately following transplant) 15.0 Trough (steady state, 2 weeks or more after transplant): 3.0 - 8.0 Detection Limit = 1.0 Performed by LC-MS/MS technology.PERFORMED AT [facility] Performed By: #### L TAC ####[facility] [address] [place] [address] lab Director: Dr. Bryce Vaughn, Tacrolimus Lvlon 01-07-2017 Last Dose 7..17 at 2215 [facility] Comment on above: Performed By: #### L TAC ####[facility] [address] [place] [id number] Performed By [facility] Comment on above: Performed By: #### L TAC ####[facility] [address] [place] [id number] lab Director: Dr. Bryce Vaughn, DO Specimen # [id number] [facility] Comment on above: Performed By: #### L TAC ####[facility] [address] [place] [id number] lab Director: Dr. Bryce Vaughn, DO Tacrolimus Level See Ref. Lab report [facility] Comment on above: Performed By: #### L TAC ####[facility] [address] [place] [address] Tacrolimus Lvl 7.2 [facility] Comment on above: Performed By: #### L TAC ####[facility] [address] [place] [id number] lab Director: Dr. Bryce Vaughn, DO Tacrolimus Lvl Ref Text [facility] Comment on above: Result Comment: Refe rence range: 2.0 to 20.0 Unit: ng/mL(NOTE) Trough (immediately following transplant) 15.0 Trough (steady state, 2 weeks or more after transplant): 3.0 - 8.0 Detection Limit = 1.0 Performed by LC-MS/MS technology.PERFORMED AT [facility] Performed By: #### L TAC ####[facility] [address] [place] [id number] lab Director: Dr. Bryce Vaughn, DO Tacrolimus Lvlon 12-31-2016 Last Dose 12.30.2016 at 2230 [facility] Comment on above: Performed By: #### L TAC ####[facility] [address] [place] [id number] Performed By [facility] Comment on above: Performed By: #### L TAC ####[facility] [address] [place], [place] [address] lab Director: Dr. Bryce Vaughn, Specimen # [id number] [facility] Comment on above: Performed By: #### L TAC ####[facility] [address] [place] [address] lab Director: Dr. Bryce Vaughn, DO Tacrolimus Level See Ref. Lab report [facility] Comment on above: Performed By: #### L TAC ####[facility] [address] [place] [address] Tacrolimus Lvl 8.3 [facility] Comment on above: Performed By: #### L TAC ####[facility] [address] [place] [address] lab Director: Dr. Bryce Vaughn, DO Tacrolimus Lvl Ref Text [facility] Comment on above: Result Comment: Refe rence range: 2.0 to 20.0 Unit: ng/mL(NOTE) Trough (immediately following transplant) 15.0 Trough (steady state, 2 weeks or more after transplant): 3.0 - 8.0 Detection Limit = 1.0 Performed by LC-MS/MS technology.PERFORMED AT [facility] Performed By: #### L TAC ####[facility] [address] [place], [place] [address] lab Director: Dr. Bryce Vaughn, Vital Signs Date Time Vital Sign Value Performing Clinician Stefany burnham 05-21-2024 10:04-0500 Body height 170.2 cm Liza Penn CEMENTER HAND-MANAGER DISH Work Phone: [facility] 05-21-2024 10:04-0500 Body mass index (BMI) [Ratio] 32.83 kg/m2 Liza Penn CEMENTER HAND-MANAGER [employer]ISH Work Phone: [facility] 05-21-2024 10:04-0500 Body temperature 98.1 [degF] Liza Penn CEMENTER HAND-MANAGER [employer]ISH Work Phone: [facility] 05-21-2024 10:04-0500 Body weight 95.07 kg Liza Penn CEMENTER HAND-MANAGER [employer] Work Phone: [facility] 05-21-2024 10:04-0500 Diastolic blood pressure 79 mm[Hg] Liza Penn CEMENTER HAND-MANAGER [employer]ISH Work Phone: [facility] 05-21-2024 10:04-0500 Heart rate 70 /min Liza Penn CEMENTER HAND-MANAGER [employer]ISH Work Phone: [facility] 05-21-2024 10:04-0500 Respiratory rate 16 /min Liza Penn CEMENTER HAND-MANAGER [employer]ISH Work Phone: [facility] 05-21-2024 10:04-0500 SaO2% (BldA) [Mass fraction] 99 % Liza Penn CEMENTER HAND-MANAGER [employer]ISH Work Phone: [facility] 05-21-2024 10:04-0500 Systolic blood pressure 142 mm[Hg] Liza Penn CEMENTER HAND-MANAGER DISH Work Phone: [facility] 04-23-2024 09:56-0400 Body height 170.2 cm Liza Penn CEMENTER HAND-MANAGER [employer]ISH Work Phone: [facility] 04-23-2024 09:56-0400 Body mass index (BMI) [Ratio] 33.74 kg/m2 Liza Penn CEMENTER HAND-MANAGER [employer]ISH Work Phone: [facility] 04-23-2024 09:56-0400 Body temperature 97.2 [degF] Liza Penn CEMENTER HAND-MANAGER DISH Work Phone: [facility] 04-23-2024 09:56-0400 Body weight 97.7 kg Liza Penn CEMENTER HAND-MANAGER DISH Work Phone: [facility] 04-23-2024 09:56-0400 Diastolic blood pressure 63 mm[Hg] Liza Popeevich CEMENTER HAND-MANAGER DISH Work Phone: [facility] 04-23-2024 09:56-0400 Heart rate 63 /min Lizajuan Penn CEMENTER HAND-MANAGER [employer]ISH Work Phone: [facility] 04-23-2024 09:56-0400 Respiratory rate 16 /min Lizajuan Penn CEMENTER HAND-MANAGER DISH Work Phone: [facility] 04-23-2024 09:56-0400 SaO2% (BldA) [Mass fraction] 100 % [facility] CEMENTER HAND-MANAGER DISH Work Phone: [facility] Comment on above: toom air 04-23-2024 09:56-0400 Systolic blood pressure 132 mm[Hg] Liza Penn CEMENTER HAND-MANAGER DISH Work Phone: [facility] 04-21-2024 14:13-0400 Body mass index (BMI) [Ratio] 34.03 kg/m2 Sam UNGER Work Phone: [facility] 04-21-2024 14:13-0400 Body temperature 98.1 [degF] Sam UNGER Work Phone: [facility] 04-21-2024 14:13-0400 Body weight 98.57 kg Sam UNGER Work Phone: [facility] 04-21-2024 14:13-0400 Diastolic blood pressure 70 mm[Hg] Sam UNGER Work Phone: [facility] 04-21-2024 14:13-0400 Heart rate 72 /min Sam UNGER Work Phone: [facility] 04-21-2024 14:13-0400 Systolic blood pressure 137 mm[Hg] Sam UNGER Work Phone: [facility] 04-21-2024 11:24-0400 Body mass index (BMI) [Ratio] 33.63 kg/m2 Isabell Frank MD Work Phone: [facility] 04-21-2024 11:24-0400 Body weight 97.39 kg Isabell Frank MD Work Phone: [facility] 04-21-2024 11:24-0400 Diastolic blood pressure 59 mm[Hg] Isabell Frank MD Work Phone: [facility] 04-21-2024 11:24-0400 Heart rate 60 /min Isabell Frank MD Work Phone: [facility] 04-21-2024 11:24-0400 SaO2% (BldA) [Mass fraction] 99 % Isabell Frank MD Work Phone: [facility] 04-21-2024 11:24-0400 Systolic blood pressure 138 mm[Hg] Isabell Frank MD Work Phone: [facility] 04-09-2024 10:22-0400 Body height 170.2 cm Griselda Gallegos MD Work Phone: [facility] 04-09-2024 10:22-0400 Body mass index (BMI) [Ratio] 36.18 kg/m2 Griselda Gallegos MD Work Phone: [facility] 04-09-2024 10:22-0400 Body temperature 97.81 [degF] Griselda Gallegos MD Work Phone: [facility] 04-09-2024 10:22-0400 Body weight 104.78 kg Griselda Gallegos MD Work Phone: [facility] 04-09-2024 10:22-0400 Diastolic blood pressure 69 mm[Hg] Griselda Gallegos MD Work Phone: [facility] 04-09-2024 10:22-0400 Heart rate 61 /min Griselda Gallegos MD Work Phone: [facility] 04-09-2024 10:22-0400 Respiratory rate 16 /min Griselda Gallegos MD Work Phone: [facility] 04-09-2024 10:22-0400 SaO2% (BldA) [Mass fraction] 100 % Griselda Gallegos MD Work Phone: [facility] Comment on above: room air 04-09-2024 10:22-0400 Systolic blood pressure 151 mm[Hg] Griselda Gallegos MD Work Phone: [facility] 04-07-2024 13:56-0400 Body height 170.18 cm [facility] 04-07-2024 13:56-0400 Body mass index (BMI) [Ratio] 36.8 kg/m2 [facility] 04-07-2024 13:56-0400 Body temperature 97.8 [degF] [facility] 04-07-2024 13:56-0400 Body weight 106.7 kg [facility] 04-07-2024 13:56-0400 Diastolic blood pressure 66 mm[Hg] [facility] 04-07-2024 13:56-0400 Heart rate 68 /min [facility] 04-07-2024 13:56-0400 SaO2% (BldA) [Mass fraction] 96 % [facility] 04-07-2024 13:56-0400 Systolic blood pressure 120 mm[Hg] [facility] 04-06-2024 10:59-0400 Body height 170.2 cm Cayla Carey CHAMBERS Work Phone: [facility] 04-06-2024 10:59-0400 Body mass index (BMI) [Ratio] 36.57 kg/m2 Cayla Carey CHAMBERS Work Phone: [facility] 04-06-2024 10:59-0400 Body weight 105.92 kg Cayla Carey CAMACHO-MANAGER DISH Work Phone: [facility] 04-06-2024 10:59-0400 Heart rate 71 /min Cayla Carey CAMACHO-MANAGER DISH Work Phone: [facility] 04-06-2024 10:59-0400 SaO2% (BldA) [Mass fraction] 99 % Cayla CHAMBERS Work Phone: [facility] 03-28-2024 10:30-0400 Body temperature 98.6 [degF] Griselda Gallegos MD Work Phone: [facility] 03-28-2024 10:30-0400 Diastolic blood pressure 57 mm[Hg] Griselda Gallegos MD Work Phone: [facility] 03-28-2024 10:30-0400 Heart rate 68 /min Griselda Gallegos MD Work Phone: [facility] 03-28-2024 10:30-0400 Respiratory rate 16 /min Griselda Gallegos MD Work Phone: [facility] 03-28-2024 10:30-0400 SaO2% (BldA) [Mass fraction] 95 % Griselda Gallegos MD Work Phone: [facility] 03-28-2024 10:30-0400 Systolic blood pressure 118 mm[Hg] Griselda Gallegos MD Work Phone: [facility] 03-26-2024 02:34-0400 Body mass index (BMI) [Ratio] 37.07 kg/m2 Griselda Gallegos MD Work Phone: [facility] 03-26-2024 02:34-0400 Body weight 107.37 kg Griselda Gallegos MD Work Phone: [facility] 03-23-2024 08:55-0400 Body height 170.2 cm Griselda Gallegos MD Work Phone: [facility] 02-25-2024 10:18-0400 Body height 170.2 cm Kelsey Lozano CEMENTER HAND-MANAGER DISH Work Phone: [facility] 02-25-2024 10:18-0400 Body mass index (BMI) [Ratio] 37.26 kg/m2 Kelsey Lozano CEMENTER HAND-MANAGER DISH Work Phone: [facility] 02-25-2024 10:18-0400 Body temperature 98.2 [degF] Kelsey Lozano CEMENTER HAND-MANAGER DISH Work Phone: [facility] 02-25-2024 10:18-0400 Body weight 107.91 kg Kelsey Lozano CEMENTER HAND-MANAGER DISH Work Phone: [facility] 02-25-2024 10:18-0400 Diastolic blood pressure 76 mm[Hg] Kelsey Lozano CEMENTER HAND-MANAGER DISH Work Phone: [facility] 02-25-2024 10:18-0400 Heart rate 57 /min Kelsey Lozano CEMENTER HAND-MANAGER DISH Work Phone: [facility] 02-25-2024 10:18-0400 Respiratory rate 16 /min Kelsey Lozano CEMENTER HAND-MANAGER DISH Work Phone: [facility] 02-25-2024 10:18-0400 SaO2% (BldA) [Mass fraction] 97 % Kelsey Lozano CEMENTER HAND-MANAGER DISH Work Phone: [facility] 02-25-2024 10:18-0400 Systolic blood pressure 112 mm[Hg] Kelsey Lozano CEMENTER HAND-MANAGER DISH Work Phone: [facility] 02-24-2024 09:09-0400 Body height 170.18 cm [facility] 02-24-2024 09:09-0400 Body mass index (BMI) [Ratio] 36.9 kg/m2 [facility] 02-24-2024 09:09-0400 Body weight 107.04 kg [facility] 02-24-2024 09:09-0400 Diastolic blood pressure 68 mm[Hg] [facility] 02-24-2024 09:09-0400 Heart rate 62 /min [facility] 02-24-2024 09:09-0400 SaO2% (BldA) [Mass fraction] 98 % [facility] 02-24-2024 09:09-0400 Systolic blood pressure 112 mm[Hg] [facility] 02-20-2024 11:20-0400 Body height 170.2 cm Griselda Gallegos MD Work Phone: [facility] 02-20-2024 11:20-0400 Body mass index (BMI) [Ratio] 37.59 kg/m2 Griselda Gallegos MD Work Phone: [facility] 02-20-2024 11:20-0400 Body temperature 97.2 [degF] Griselda Gallegos MD Work Phone: [facility] 02-20-2024 11:20-0400 Body weight 108.86 kg Griselda Gallegos MD Work Phone: [facility] 02-20-2024 11:20-0400 Diastolic blood pressure 72 mm[Hg] Griselda Gallegos MD Work Phone: [facility] 02-20-2024 11:20-0400 Heart rate 62 /min Griselda Gallegos MD Work Phone: [facility] 02-20-2024 11:20-0400 Respiratory rate 16 /min Griselda Gallegos MD Work Phone: [facility] 02-20-2024 11:20-0400 SaO2% (BldA) [Mass fraction] 98 % Griselda Gallegos MD Work Phone: [facility] 02-20-2024 11:20-0400 Systolic blood pressure 148 mm[Hg] Griselda Gallegos MD Work Phone: [facility] 01-15-2024 11:08-0400 Body height 170.2 cm Rodrigo Saravia MD Work Phone: [facility] 01-15-2024 11:08-0400 Body mass index (BMI) [Ratio] 37.93 kg/m2 Rodrigo Saravia MD Work Phone: [facility] 01-15-2024 11:08-0400 Body temperature 98.01 [degF] Rodrigo Saravia MD Work Phone: [facility] 01-15-2024 11:08-0400 Body weight 109.86 kg Rodrigo Saravia MD Work Phone: [facility] 01-15-2024 11:08-0400 Diastolic blood pressure 60 mm[Hg] Rodrigo Saravia MD Work Phone: [facility] 01-15-2024 11:08-0400 Heart rate 68 /min Rodrigo Saravia MD Work Phone: [facility] 01-15-2024 11:08-0400 Respiratory rate 12 /min Rodrigo Saravia MD Work Phone: [facility] 01-15-2024 11:08-0400 SaO2% (BldA) [Mass fraction] 96 % Rodrigo Saravia MD Work Phone: [facility] 01-15-2024 11:08-0400 Systolic blood pressure 118 mm[Hg] Rodrigo Saravia MD Work Phone: [facility] 12-25-2023 08:16-0400 Body height 170.2 cm Cait Richardson MD Work Phone: [facility] Comment on above: Per patient 12-25-2023 08:16-0400 Body mass index (BMI) [Ratio] 37.07 kg/m2 Cait Richardson MD Work Phone: [facility] 12-25-2023 08:16-0400 Body weight 107.37 kg Cait Richardson MD Work Phone: [facility] 12-25-2023 08:16-0400 Diastolic blood pressure 68 mm[Hg] Cait Richardson MD Work Phone: [facility] 12-25-2023 08:16-0400 Heart rate 60 /min Cait Richardson MD Work Phone: [facility] 12-25-2023 08:16-0400 SaO2% (BldA) [Mass fraction] 98 % Cait Richardson MD Work Phone: [facility] 12-25-2023 08:16-0400 Systolic blood pressure 122 mm[Hg] Cait Richardson MD Work Phone: [facility] 12-04-2023 10:48-0400 Body height 170.2 cm Rodrigo Saravia MD Work Phone: [facility] 12-04-2023 10:48-0400 Body mass index (BMI) [Ratio] 37.21 kg/m2 Rodrigo Saravia MD Work Phone: [facility] 12-04-2023 10:48-0400 Body temperature 98.8 [degF] Rodrigo Saravia MD Work Phone: [facility] 12-04-2023 10:48-0400 Body weight 107.78 kg Rodrigo Saravia MD Work Phone: [facility] 12-04-2023 10:48-0400 Diastolic blood pressure 68 mm[Hg] Rodrigo Saravia MD Work Phone: [facility] 12-04-2023 10:48-0400 Heart rate 71 /min Rodrigo Saravia MD Work Phone: [facility] 12-04-2023 10:48-0400 Respiratory rate 18 /min Rodrigo Saravia MD Work Phone: [facility] 12-04-2023 10:48-0400 SaO2% (BldA) [Mass fraction] 97 % Rodrigo Saravia MD Work Phone: [facility] 12-04-2023 10:48-0400 Systolic blood pressure 94 mm[Hg] Rodrigo Saravia MD Work Phone: [facility] 09-30-2023 15:22-0400 Diastolic blood pressure 82 mm[Hg] Liza Isamar CEMENTER HAND-MANAGER DISH Work Phone: [facility] 09-30-2023 15:22-0400 Systolic blood pressure 132 mm[Hg] Liza Alexich CEMENTER HAND-MANAGER DISH Work Phone: [facility] 09-30-2023 13:51-0400 Body height 170.2 cm Liza Isamar CEMENTER HAND-MANAGER DISH Work Phone: [facility] 09-30-2023 13:51-0400 Body mass index (BMI) [Ratio] 35.91 kg/m2 Liza Tyivette CEMENTER HAND-MANAGER DISH Work Phone: [facility] 09-30-2023 13:51-0400 Body temperature 97.81 [degF] Liza Isamar CEMENTER HAND-MANAGER DISH Work Phone: [facility] 09-30-2023 13:51-0400 Body weight 104.01 kg Liza Penn CEMENTER HAND-MANAGER DISH Work Phone: [facility] 09-30-2023 13:51-0400 Heart rate 63 /min Liza Penn CEMENTER HAND-MANAGER DISH Work Phone: [facility] 09-30-2023 13:51-0400 Respiratory rate 16 /min Liza Penn CEMENTER HAND-MANAGER DISH Work Phone: [facility] 09-30-2023 13:51-0400 SaO2% (BldA) [Mass fraction] 98 % [facility] HAND-MANAGER DISH Work Phone: [facility] Comment on above: [facility] 2023 10:30-0500 Diastolic blood pressure 75 mm[Hg] Schuyler Sparks MD Work Phone: [facility] 2023 10:30-0500 Heart rate 58 /min Schuyler Sparks MD Work Phone: [facility] 2023 10:30-0500 Respiratory rate 22 /min Schuyler Sparks MD Work Phone: [facility] 2023 10:30-0500 SaO2% (BldA) [Mass fraction] 97 % Schuyler Sparks MD Work Phone: [facility] 2023 10:30-0500 Systolic blood pressure 158 mm[Hg] Schuyler Sparks MD Work Phone: [facility] 2023 09:59-0500 Body temperature 98.6 [degF] Schuyler Sparks MD Work Phone: [facility] 2023 09:09-0500 Body height 170.2 cm Schuyler Sparks MD Work Phone: [facility] 04-19-2023 10:26-0400 Body height 170.2 cm Javan Bark DPM Work Phone: [facility] 04-19-2023 10:26-0400 Body mass index (BMI) [Ratio] 38.4 kg/m2 Javan Bark DPM Work Phone: [facility] 04-19-2023 10:26-0400 Body temperature 97.7 [degF] Javan Bark DPM Work Phone: [facility] 04-19-2023 10:26-0400 Body weight 111.2 kg Javan Bark DPM Work Phone: [facility] 04-16-2023 14:21-0400 Body height 170.2 cm Geovanna Trubachik CEMENTER HAND-MANAGER DISH Work Phone: [facility] 04-16-2023 14:21-0400 Body mass index (BMI) [Ratio] 38.4 kg/m2 Geovanna Trubachik CEMENTER HAND-MANAGER DISH Work Phone: [facility] 04-16-2023 14:21-0400 Body temperature 98.71 [degF] Geovanna Trubachik CEMENTER HAND-MANAGER DISH Work Phone: [facility] 04-16-2023 14:21-0400 Body weight 111.22 kg Geovanna Trubachik CEMENTER HAND-MANAGER DISH Work Phone: [employer] [facility] 04-16-2023 14:21-0400 Diastolic blood pressure 74 mm[Hg] Geovanna Trubachik CEMENTER HAND-MANAGER DISH Work Phone: [facility] 04-16-2023 14:21-0400 Heart rate 86 /min Geovanna Trubachik CEMENTER HAND-MANAGER DISH Work Phone: [facility] 04-16-2023 14:21-0400 Respiratory rate 18 /min Geovanna Trubachik CEMENTER HAND-MANAGER DISH Work Phone: [facility] 04-16-2023 14:21-0400 SaO2% (BldA) [Mass fraction] 97 % Geovanna Miranda CEMENTER HAND-MANAGER DISH Work Phone: [facility] 04-16-2023 14:21-0400 Systolic blood pressure 120 mm[Hg] Geovanna Miranda CEMENTER HAND-MANAGER DISH Work Phone: [facility] 03-10-2023 23:11-0400 Body height 170.2 cm Ilia Shaffer MD Work Phone: [facility] 03-10-2023 23:11-0400 Body temperature 97.39 [degF] Ilia Shaffer MD Work Phone: [facility] 03-10-2023 23:11-0400 Diastolic blood pressure 70 mm[Hg] Ilia Shaffer MD Work Phone: [facility] 03-10-2023 23:11-0400 Heart rate 67 /min Ilia Shaffer MD Work Phone: [facility] 03-10-2023 23:11-0400 Respiratory rate 20 /min Ilia Shaffer MD Work Phone: [facility] 03-10-2023 23:11-0400 SaO2% (BldA) [Mass fraction] 100 % Ilia Shaffer MD Work Phone: [facility] 03-10-2023 23:11-0400 Systolic blood pressure 154 mm[Hg] Ilia Shaffer MD Work Phone: [facility] 12-10-2022 14:04-0400 Body height 170.2 cm Liza Rembertorogerioevansurjit CEMENTER HAND-MANAGER DISH Work Phone: [facility] 12-10-2022 14:04-0400 Body mass index (BMI) [Ratio] 37.79 kg/m2 Liza Toshiaevanich CEMENTER HAND-MANAGER DISH Work Phone: [facility] 12-10-2022 14:04-0400 Body temperature 97.59 [degF] Liza Penn CEMENTER HAND-MANAGER DISH Work Phone: [facility] 12-10-2022 14:04-0400 Body weight 109.45 kg Liza Penn CEMENTER HAND-MANAGER DISH Work Phone: [facility] 12-10-2022 14:04-0400 Diastolic blood pressure 74 mm[Hg] Liza Isamar CEMENTER HAND-MANAGER DISH Work Phone: [facility] 12-10-2022 14:04-0400 Heart rate 65 /min Liza Isamar CEMENTER HAND-MANAGER DISH Work Phone: [facility] 12-10-2022 14:04-0400 Respiratory rate 16 /min Liza Isamar CEMENTER HAND-MANAGER DISH Work Phone: [facility] 12-10-2022 14:04-0400 Systolic blood pressure 142 mm[Hg] Liza Penn CEMENTER HAND-MANAGER DISH Work Phone: [facility] 10-29-2022 09:57-0400 Body height 170.2 cm Geovanna Miranda CEMENTER HAND-MANAGER DISH Work Phone: [facility] 10-29-2022 09:57-0400 Body mass index (BMI) [Ratio] 37.34 kg/m2 Geovanna Miranda CEMENTER HAND-MANAGER DISH Work Phone: [facility] 10-29-2022 09:57-0400 Body temperature 97.5 [degF] Geovanna Miranda CEMENTER HAND-MANAGER DISH Work Phone: [facility] 10-29-2022 09:57-0400 Body weight 108.14 kg Geovanna Miranda CEMENTER HAND-MANAGER DISH Work Phone: [facility] 10-29-2022 09:57-0400 Diastolic blood pressure 58 mm[Hg] Geovanna Miranda CEMENTER HAND-MANAGER DISH Work Phone: [facility] 10-29-2022 09:57-0400 Heart rate 71 /min Geovanna Healyk CEMENTER HAND-MANAGER DISH Work Phone: [facility] 10-29-2022 09:57-0400 Respiratory rate 18 /min Geovanna Harkinschik CEMENTER HAND-MANAGER DISH Work Phone: [facility] 10-29-2022 09:57-0400 SaO2% (BldA) [Mass fraction] 97 % Geovanna Harkinschik CEMENTER HAND-MANAGER DISH Work Phone: [facility] 10-29-2022 09:57-0400 Systolic blood pressure 116 mm[Hg] Geovanna Miranda CEMENTER HAND-MANAGER DISH Work Phone: [facility] 10-26-2022 20:18-0400 Body height 170.2 cm Mary Lamport PA-C Work Phone: [facility] 10-26-2022 20:18-0400 Body mass index (BMI) [Ratio] 38.01 kg/m2 Mary Lamport PA-C Work Phone: [facility] 10-26-2022 20:18-0400 Body temperature 98.6 [degF] Mary Lamport PA-C Work Phone: [facility] 10-26-2022 20:18-0400 Body weight 110.09 kg Mary Lamport PA-C Work Phone: [facility] 10-26-2022 20:18-0400 Diastolic blood pressure 75 mm[Hg] Mary Lamport PA-C Work Phone: [facility] 10-26-2022 20:18-0400 Heart rate 74 /min Mary Lamport PA-C Work Phone: [facility] 10-26-2022 20:18-0400 Respiratory rate 18 /min Mary Lamport PA-C Work Phone: [facility] 10-26-2022 20:18-0400 SaO2% (BldA) [Mass fraction] 93 % Mary Lamport PA-C Work Phone: [facility] 10-26-2022 20:18-0400 Systolic blood pressure 122 mm[Hg] Mary Moreira PA-C Work Phone: [facility] 10-24-2022 07:18-0400 Body height 170.2 cm Maico Hernadez MD Work Phone: [facility] 10-24-2022 07:16-0400 Body temperature 97.9 [degF] Maico Hernadez MD Work Phone: [facility] 10-24-2022 07:16-0400 Diastolic blood pressure 67 mm[Hg] Maico Hernadez MD Work Phone: [facility] 10-24-2022 07:16-0400 Heart rate 67 /min Maico Hernadez MD Work Phone: [facility] 10-24-2022 07:16-0400 Respiratory rate 18 /min Maico Hernadez MD Work Phone: [facility] 10-24-2022 07:16-0400 SaO2% (BldA) [Mass fraction] 99 % Maico Hernadez MD Work Phone: [facility] 10-24-2022 07:16-0400 Systolic blood pressure 140 mm[Hg] Maico Hernadez MD Work Phone: [facility] 09-02-2022 12:57-0500 Body mass index (BMI) [Ratio] 36.59 kg/m2 Jayshree Vilchis CNP Work Phone: [facility] 09-02-2022 12:57-0500 Body temperature 99.61 [degF] Jayshree Vilchis CNP Work Phone: [facility] 09-02-2022 12:57-0500 Body weight 105.96 kg Jayshree Vilchis CNP Work Phone: [facility] 09-02-2022 12:57-0500 Diastolic blood pressure 72 mm[Hg] Jayshree Vilchis CNP Work Phone: [facility] 09-02-2022 12:57-0500 Heart rate 86 /min Jayshree Adkinsino MANAGER DISH Work Phone: [facility] 09-02-2022 12:57-0500 Respiratory rate 16 /min Jayshree Adkinsino MANAGER DISH Work Phone: [facility] 09-02-2022 12:57-0500 SaO2% (BldA) [Mass fraction] 96 % Jayshree Adkinsino MANAGER DISH Work Phone: [facility] 09-02-2022 12:57-0500 Systolic blood pressure 114 mm[Hg] Jayshree Adkinsino MANAGER DISH Work Phone: [facility] 08-30-2022 10:32-0500 Body height 170.2 cm Jayshree Adkinsino MANAGER DISH Work Phone: [facility] 08-30-2022 10:32-0500 Body mass index (BMI) [Ratio] 37.12 kg/m2 Jayshree Adkinsino MANAGER DISH Work Phone: [facility] 08-30-2022 10:32-0500 Body temperature 98.2 [degF] Jayshree Adkinsino MANAGER DISH Work Phone: [facility] 08-30-2022 10:32-0500 Body weight 107.5 kg Jayshree Adkinsino MANAGER DISH Work Phone: [facility] 08-30-2022 10:32-0500 Diastolic blood pressure 75 mm[Hg] Jayshree Adkinsino MANAGER DISH Work Phone: [facility] 08-30-2022 10:32-0500 Heart rate 92 /min Jayshree Adkinsino MANAGER DISH Work Phone: [facility] 08-30-2022 10:32-0500 Respiratory rate 16 /min Jayshree Adkinsino MANAGER DISH Work Phone: [facility] 08-30-2022 10:32-0500 SaO2% (BldA) [Mass fraction] 96 % Jayshree Adkinsino MANAGER DISH Work Phone: [facility] 08-30-2022 10:32-0500 Systolic blood pressure 113 mm[Hg] Jayshree Vilchis MANAGER DISH Work Phone: [facility] 04-21-2022 10:51-0400 Body height 170.2 cm Raheem Archuleta MD Work Phone: [facility] 04-21-2022 10:50-0400 Body temperature 98.01 [degF] Raheem Archuleta MD Work Phone: [facility] 04-21-2022 10:50-0400 Diastolic blood pressure 77 mm[Hg] Raheem Archuleta MD Work Phone: [facility] 04-21-2022 10:50-0400 Heart rate 67 /min Raheem Archuleta MD Work Phone: [facility] 04-21-2022 10:50-0400 Respiratory rate 16 /min Raheem Archuleta MD Work Phone: [facility] 04-21-2022 10:50-0400 SaO2% (BldA) [Mass fraction] 97 % Raheem Archuleta MD Work Phone: [facility] 04-21-2022 10:50-0400 Systolic blood pressure 140 mm[Hg] Raheem Archuleta MD Work Phone: [facility] 03-02-2022 14:25-0400 Body height 170.2 cm Geovannamarion Miranda CEMENTER HAND-MANAGER DISH Work Phone: [facility] 03-02-2022 14:25-0400 Body mass index (BMI) [Ratio] 35.15 kg/m2 Geovanna Gonzalezubachik CEMENTER HAND-MANAGER DISH Work Phone[facility] [facility] 03-02-2022 14:25-0400 Body temperature 98.1 [degF] Geovanna Miranda CEMENTER HAND-MANAGER DISH Work Phone: [facility] 03-02-2022 14:25-0400 Body weight 101.79 kg Geovanna Miranda CEMENTER HAND-MANAGER DISH Work Phone: [facility] 03-02-2022 14:25-0400 Diastolic blood pressure 68 mm[Hg] Geovanna Healyk CEMENTER HAND-MANAGER DISH Work Phone: [facility] 03-02-2022 14:25-0400 Heart rate 73 /min Geovanna Gonzalezubaneftalyk CEMENTER HAND-MANAGER DISH Work Phone: [facility] 03-02-2022 14:25-0400 Respiratory rate 18 /min Geovanna Gonzalezubaneftalyk CEMENTER HAND-MANAGER DISH Work Phone: [facility] [facility] 03-02-2022 14:25-0400 SaO2% (BldA) [Mass fraction] 97 % Geovanna Healyk CEMENTER HAND-MANAGER DISH Work Phone: [facility] 03-02-2022 14:25-0400 Systolic blood pressure 130 mm[Hg] Geovanna Healyk CEMENTER HAND-MANAGER DISH Work Phone: [facility] [employer] [facility] 01-08-2022 08:20-0400 Body height 170.2 cm Geovanna Healyk CEMENTER HAND-MANAGER DISH Work Phone: [facility] [employer] [facility] 01-08-2022 08:20-0400 Body mass index (BMI) [Ratio] 34.64 kg/m2 Geovanna Gonzalezubaneftalyk CEMENTER HAND-MANAGER DISH Work Phone: [facility] [employer] [facility] 01-08-2022 08:20-0400 Body temperature 98.01 [degF] Geovanna Healyk CEMENTER HAND-MANAGER DISH Work Phone: [facility] [employer] [facility] 01-08-2022 08:20-0400 Body weight 100.34 kg Geovanna Gonzalezubachik CEMENTER HAND-MANAGER DISH Work Phone: [facility] 01-08-2022 08:20-0400 Diastolic blood pressure 80 mm[Hg] Geovanna Gonzalezubachik CEMENTER HAND-MANAGER DISH Work Phone: [facility] 01-08-2022 08:20-0400 Heart rate 62 /min Geovanna Gonzalezubachik CEMENTER HAND-MANAGER DISH Work Phone: [facility] [employer] [facility] 01-08-2022 08:20-0400 Respiratory rate 18 /min Geovanna Miranda APRN-MANAGER DISH Work Phone: [facility] 01-08-2022 08:20-0400 SaO2% (BldA) [Mass fraction] 97 % Geovanna Miranda APRN-MANAGER DISH Work Phone: [facility] 01-08-2022 08:20-0400 Systolic blood pressure 122 mm[Hg] Geovanna CHAMBERS Work Phone: [facility] 01-04-2022 11:00-0400 Body height 170.2 cm Jennifer Marrufo DO Work Phone: [facility] 01-04-2022 11:00-0400 Body mass index (BMI) [Ratio] 33.8 kg/m2 Jennifer Marrufo DO Work Phone: [facility] 01-04-2022 11:00-0400 Body temperature 98.1 [degF] Jennifer Marrufo DO Work Phone: [facility] 01-04-2022 11:00-0400 Body weight 97.89 kg Jennifer Marrufo DO Work Phone: [facility] 01-04-2022 11:00-0400 Diastolic blood pressure 74 mm[Hg] Jennifer Marrufo DO Work Phone: [facility] 01-04-2022 11:00-0400 Heart rate 54 /min Jennifer Marrufo DO Work Phone: [facility] 01-04-2022 11:00-0400 Respiratory rate 20 /min Jennifer Marrufo DO Work Phone: [facility] 01-04-2022 11:00-0400 SaO2% (BldA) [Mass fraction] 97 % Jennifer Marrufo DO Work Phone: [facility] 01-04-2022 11:00-0400 Systolic blood pressure 134 mm[Hg] Jennifer Marrufo DO Work Phone: [facility] 11-30-2021 11:13-0400 Body height 170.2 cm Karon Howard MD Work Phone: [facility] 11-30-2021 11:13-0400 Body mass index (BMI) [Ratio] 33.47 kg/m2 Karon Howard MD Work Phone: [facility] 11-30-2021 11:13-0400 Body temperature 98.2 [degF] Karon Howard MD Work Phone: [facility] 11-30-2021 11:13-0400 Body weight 96.93 kg Karon Howard MD Work Phone: [facility] 11-30-2021 11:13-0400 Diastolic blood pressure 75 mm[Hg] Karon Howard MD Work Phone: [facility] 11-30-2021 11:13-0400 Heart rate 51 /min Karon Howard MD Work Phone: [facility] 11-30-2021 11:13-0400 Respiratory rate 16 /min Karon Howard MD Work Phone: [facility] 11-30-2021 11:13-0400 SaO2% (BldA) [Mass fraction] 96 % Karon Howard MD Work Phone: [facility] 11-30-2021 11:13-0400 Systolic blood pressure 131 mm[Hg] Karon Howard MD Work Phone: [facility] 10-26-2021 09:13-0400 Body mass index (BMI) [Ratio] 31.94 kg/m2 Suzie Giraldo MD, PhD Work Phone: [facility] 10-26-2021 09:13-0400 Body temperature 97.2 [degF] Suzie Giraldo MD, PhD Work Phone: [facility] 10-26-2021 09:130400 Body weight 92.49 kg Suzie Giraldo MD, PhD Work Phone: [facility] 10-26-2021 09:13-0400 Diastolic blood pressure 72 mm[Hg] Suzie Giraldo MD, PhD Work Phone: [facility] 10-26-2021 09:13-0400 Heart rate 59 /min Suzie Giraldo MD, PhD Work Phone: [facility] 10-26-2021 09:13-0400 Systolic blood pressure 128 mm[Hg] Suzie Giraldo MD, PhD Work Phone: [facility] 10-09-2021 [id number] Body height 170.2 cm Geovanna Eduardubachik CEMENTER HAND-MANAGER DISH Work Phone: [facility] 10-09-2021 13:11-0400 Body mass index (BMI) [Ratio] 32.62 kg/m2 Geovanna Eduardubachik CEMENTER HAND-MANAGER DISH Work Phone: [facility] 10-09-2021 13:11-0400 Body temperature 97.7 [degF] Geovanna Trubachik CEMENTER HAND-MANAGER DISH Work Phone: [facility] 10-09-2021 13:11-0400 Body weight 94.46 kg Geovanna Trubachik CEMENTER HAND-MANAGER [employer]ISH Work Phone: [facility] 10-09-2021 13:11-0400 Diastolic blood pressure 70 mm[Hg] Geovanna Trubachik CEMENTER HAND-MANAGER DISH Work Phone: [facility] 10-09-2021 13:11-0400 Heart rate 60 /min Geovanna Trubachik CEMENTER HAND-MANAGER [employer]ISH Work Phone: [facility] 10-09-2021 13:11-0400 Respiratory rate 18 /min Geovanna Trubachik CEMENTER HAND-MANAGER [employer]ISH Work Phone: [facility] 10-09-2021 13:11-0400 SaO2% (BldA) [Mass fraction] 98 % Geovanna Miranda CEMENTER HAND-MANAGER DISH Work Phone: [facility] 10-09-2021 13:11-0400 Systolic blood pressure 126 mm[Hg] Geovanna Miranda CEMENTER HAND-MANAGER [employer]ISH Work Phone: [facility] 09-18-2021 09:38-0400 Body mass index (BMI) [Ratio] 32.26 kg/m2 Andrew Trinidad CEMENTER HAND-MANAGER DISH Work Phone: [facility] 09-18-2021 09:38-0400 Body temperature 97.7 [degF] Andrew Trinidad CEMENTER HAND-MANAGER DISH Work Phone: [facility] 09-18-2021 09:38-0400 Body weight 93.44 kg Andrew Trinidad CEMENTER HAND-MANAGER [employer]ISH Work Phone: [facility] 09-18-2021 09:38-0400 Diastolic blood pressure 76 mm[Hg] Andrew Trinidad CEMENTER HAND-MANAGER [employer]ISH Work Phone: [facility] 09-18-2021 09:38-0400 Heart rate 56 /min Andrew Trinidad CEMENTER HAND-MANAGER [employer]ISH Work Phone: [facility] 09-18-2021 09:38-0400 Systolic blood pressure 133 mm[Hg] Andrew Trinidad CEMENTER HAND-MANAGER DISH Work Phone: [facility] 05-15-2018 15:08-0500 BMI (Body Mass Index) 39.63 kg/m2 [facility] Work Phone: 05-15-2018 15:08-0500 Body Temperature 97.11 [degF] [facility] Work Phone: 05-15-2018 15:08-0500 Height 170.2 cm Ari [facility] Work Phone: 05-15-2018 [id number] Weight 114.76 kg [facility] Work Phone: Encounters Encounter Date Encounter Type Care Provider Facility Start: 09-09-2024 ambulatory CAYLA Sloan ility:[facility] Start: 07-22-2024 ambulatory CAYLA Sloan ility:[facility] Start: 05-21-2024 End: 05-21-2024 Patient encounter procedure Liza M Isamar CEMENTER HAND-MANAGER DISH Work Phone: Bariatric Surgery [facility] Comment on above: Encounter for weight loss counseling (Primary Dx) Start: 05-21-2024 End: 05-29-2024 Postop follow up visit related to original px Liza Penn CEMENTER HAND-MANAGER DISH Work Phone: [facility]ariatric Surgery [facility] Comment on above: Obesity with body ma ss index greater than 30 (Primary Dx); Stage 3a chronic kidney disease; S/P bypass gastrojejunostomy; History of renal transplant; Vitamin D deficiency; Iron deficiency; Medication management; High serum vitamin A; S/P laparoscopic sleeve gastrectomy; At risk for inadequate intake of multiple nutrients Start: 05-21-2024 ambulatory LIZA PENN Facility:[facility] Start: 04-23-2024 End: 04-23-2024 Patient encounter procedure Liza M Alexsurjit CEMENTER HAND-MANAGER DISH Work Phone: Bariatric Surgery [facility] Comment on above: Encounter for weight loss counseling (Primary Dx) Start: 04-23-2024 End: 04-23-2024 Postop follow up visit related to original px Liza M Isamar CEMENTER HAND-MANAGER DISH Work Phone: Bariatric Surgery [facility] Comment on above: S/P bypass gastrojej unostomy (Primary Dx); Class 1 obesity with serious comorbidity and body mass index (BMI) of 33.0 to 33.9 in adult, unspecified obesity type; Post-operative state; History of obstructive sleep apnea; History of morbid obesity Start: 04-23-2024 ambulatory CAYLA Sloan ility:[facility] Start: 04-21-2024 End: 04-21-2024 Office outpatient visit 40 minutes Sam UNGER Work Phone: [facility] Comment on above: Kidney replaced by t ransplant (Primary Dx); Abnormal blood chemistry; Aftercare following organ transplant; Immunosuppressed status; High risk medication use; Hydronephrosis, unspecified hydronephrosis type; Hyperkalemia Start: 04-21-2024 ambulatory CAYLA mariety:[facility] Start: 04-21-2024 ambulatory ISABELL Paris ty:[facility] Start: 04-21-2024 End: 04-21-2024 Subsequent hospital visit by physician Isabell Frank MD Work Phone: [facility] Comment on above: Arrived Start: 04-21-2024 End: 04-21-2024 Office consultation new/estab patient 60 min Isabell Frank MD Work Phone: [facility] [place] Comment on above: Urinary retention (P rimary Dx) Start: 04-21-2024 ambulatory GRISELDA Lawrence ity:[facility] Start: 04-09-2024 End: 04-09-2024 Patient encounter procedure Bina Sheets RD Work Phone: Bariatric Surgery [facility] Comment on above: Encounter for weight loss counseling (Primary Dx) Start: 04-09-2024 End: 04-09-2024 Postop follow up visit related to original px Griselda Gallegos MD Work Phone: Bariatric Surgery [facility] Comment on above: Gastroesophageal ref lux disease without esophagitis (Primary Dx) Start: 04-09-2024 ambulatory SELF SELF Facility:[facility] Start: 04-07-2024 End: 04-07-2024 ambulatory [facility] Work Phone: Start: 04-07-2024 End: 04-07-2024 [facility] Work Phone: Start: 04-06-2024 End: 04-06-2024 Clinical Support Encounter Cayla Gonzalez CEMENTER HAND-MANAGER DISH Work Phone: [facility] [place] Comment on above: Urinary retention (P rimary Dx) Start: 04-06-2024 ambulatory CAYLA Sloan ility:[facility] Start: 03-23-2024 End: 03-28-2024 Encounter for other preprocedural examination GRISELDA GALLEGOS Facility:[facility] Start: 03-23-2024 End: 03-28-2024 Evaluation and management of inpatient Griselda Gallegos MD Work Phone: [email or web address] Comment on above: Elective surgery Start: 03-23-2024 End: 03-28-2024 Patient encounter status Griselda Gallegos MD Work Phone: [facility] Start: 03-09-2024 ambulatory CAYLA Sloan ility:[facility] Start: 02-27-2024 Non-patient / [facility]-visit [facility] Work Phone: Start: 02-25-2024 ambulatory KELSYE LOZANO Facilit y:[facility] Start: 02-25-2024 End: 02-25-2024 Office consultation new/estab patient 60 min Kelsey Lozano CEMENTER HAND-MANAGER DISH Work Phone: Pre-Procedure Evaluation and Assessment [facility] Comment on above: Preop exam [...] End: 02-25-2024 Patient encounter status Kelsey Lozano CEMENTER HAND-MANAGER DISH Work Phone: [facility] Work Phone: Start: 02-25-2024 ambulatory KELSEY LOZANO Facilit y:[facility] Start: 02-24-2024 End: 02-24-2024 ambulatory [facility] Work Phone: Start: 02-24-2024 End: 02-24-2024 Patient encounter procedure [facility] Work Phone: Start: 02-20-2024 End: 02-20-2024 Patient encounter procedure Griselda Gallegos MD Work Phone: Bariatric Surgery [facility] Comment on above: Encounter for weight loss counseling (Primary Dx) Start: 02-20-2024 End: 02-20-2024 Office outpatient visit 15 minutes Griselda Gallegos MD Work Phone: Bariatric Surgery [facility] Comment on above: Gastroesophageal ref lux disease without esophagitis (Primary Dx); Morbid obesity Start: 02-20-2024 ambulatory SELF SELF Facility:[facility] Start: 02-07-2024 [facility] Start: 01-15-2024 End: 01-15-2024 Office outpatient visit 25 minutes Rodrigo Saravia MD Work Phone: [facility] Comment on above: Morbid obesity (Prim gina Dx); Acute right ankle pain; Gastroesophageal reflux disease without esophagitis; Benign hypertension; DEMI (obstructive sleep apnea) Start: 01-15-2024 ambulatory SELF SELF [facility] Start: 12-31-2023 ambulatory LIZA PENN Facility:[facility] Start: 12-25-2023 End: 12-25-2023 Office consultation new/estab patient 60 min Cait Richardson MD Work Phone: [facility] [place] Comment on above: Obstructive sleep ap hu (adult) (pediatric) [G47.33] (Primary Dx) Start: 12-25-2023 ambulatory SELF SELF Facility:[facility] Start: 12-04-2023 End: 12-04-2023 Office outpatient visit 25 minutes Rodrigo Saravia MD Work Phone: [facility] Comment on above: Gastroesophageal ref lux disease without esophagitis (Primary Dx); Seborrheic dermatitis; Tinea pedis, unspecified laterality; Morbid obesity; Right ear impacted cerumen Start: 12-04-2023 ambulatory SELF SELF [facility] Start: 11-21-2023 [facility] Start: 11-20-2023 ambulatory LIZA [facility] Start: 11-15-2023 End: 11-15-2023 Patient encounter procedure [facility] Therapist Sleep Medicine [facility] Comment on above: S/P laparoscopic sle pearl gastrectomy; History of obstructive sleep apnea Obstructive sleep ap hu (adult) (pediatric) [G47.33] (Primary Dx); S/P laparoscopic sleeve gastrectomy; History of obstructive sleep apnea Start: 11-08-2023 End: 11-08-2023 Documentation procedure [facility] Start: 09-30-2023 End: 09-30-2023 Office outpatient visit 40 minutes Liza Penn CEMENTER HAND-MANAGER DISH Work Phone: Bariatric Surgery [facility] Comment on above: Gastroesophageal ref [...] End: 09-30-2023 Patient encounter status Liza Penn CEMENTER HAND-MANAGER DISH Work Phone: [facility] Start: 2023 End: 2023 Subsequent hospital visit by physician Schuyler Sparks MD Work Phone: [facility] Start: 05-28-2023 End: 05-28-2023 Office outpatient visit 15 minutes Aliza Davis MD Work Phone: [facility] [place] Comment on above: Lentigines (Primary Dx); Skin cancer screening; Actinic skin damage; SK (seborrheic keratosis); [place] angioma; Melanocytic nevus of lower extremity including hip, unspecified laterality; Melanocytic nevi of trunk; Melanocytic nevus of upper extremity, unspecified laterality; Neoplasm of uncertain behavior of skin Start: 05-06-2023 [facility] Start: 04-30-2023 ambulatory [facility] Start: 04-19-2023 End: 04-19-2023 Subsequent hospital visit by physician Javan ORTAM Work Phone: [facility] Comment on above: Arrived Start: 04-19-2023 End: 04-19-2023 Office outpatient visit 25 minutes Javan ORTAM Work Phone: [facility] Comment on above: Right foot pain (Alesia david Dx); Sprain of right ankle, unspecified ligament, initial encounter Start: 04-19-2023 [facility] Start: 04-16-2023 End: 04-16-2023 Office outpatient visit 25 minutes Geovannamarion Harkinsneftalyterrell CEMENTER HAND-MANAGER DISH Work Phone: [facility] Comment on above: Acute right ankle pa in (Primary Dx); Sprain of right medial ankle joint, initial encounter Start: 04-16-2023 [facility] Start: 03-10-2023 End: 03-11-2023 Emergency department patient visit Ilia Shaffer MD Work Phone: [facility] Start: 12-10-2022 End: 12-10-2022 Office outpatient visit 25 minutes Liza Penn CEMENTER HAND-MANAGER DISH Work Phone: Bariatric Surgery [facility] Comment on above: Class 2 severe obesi ty with serious comorbidity and body mass index (BMI) of 36.0 to 36.9 in adult, unspecified obesity type (Primary Dx); Gastroesophageal reflux disease without esophagitis; S/P laparoscopic sleeve gastrectomy Start: 10-29-2022 End: 10-29-2022 Office outpatient visit 25 minutes Geovanna Miranda CEMENTER HAND-MANAGER DISH Work Phone: [facility] Comment on above: Dog bite, initial en counter (Primary Dx); Encounter for post surgical wound check Start: 10-26-2022 End: 10-30-2022 [facility] Start: 10-26-2022 End: 10-26-2022 Office outpatient visit 15 minutes Mary Moreira PA-C Work Phone: [facility] [place] Comment on above: Dog bite of right brooks nd with infection, initial encounter (Primary Dx) Start: 10-24-2022 End: 10-24-2022 Emergency department patient visit Maico Hernadez MD Work Phone: [employer] [place] [facility] Start: 09-02-2022 End: 09-02-2022 [facility] Start: 09-02-2022 End: 09-02-2022 Office outpatient visit 15 minutes Jayshree Vilchis MANAGER DISH Work Phone: [facility] [place] Comment on above: Sinusitis, unspecifi ed chronicity, unspecified location (Primary Dx); Acute conjunctivitis of both eyes, unspecified acute conjunctivitis type Start: 08-30-2022 End: 08-30-2022 ambulatory JAYSHREE [facility] Start: 08-30-2022 End: 08-30-2022 Office outpatient visit 15 minutes Jayshree Vilchis MANAGER DISH Work Phone: [facility] [place] Comment on above: Viral URI (Primary D x) Start: 04-21-2022 End: 04-21-2022 Emergency department patient visit Raheem Archuleta MD Work Phone: [facility] Start: 04-20-2022 End: 04-20-[address] [facility] Start: 03-02-2022 End: 03-02-2022 Office outpatient visit 25 minutes Geovanna Miranda CEMENTER HAND-MANAGER DISH Work Phone: [facility] Comment on above: Low testosterone in male (Primary Dx); Acute bacterial conjunctivitis of right eye Start: 01-08-2022 End: 01-08-2022 Office outpatient visit 15 minutes Geovanna Miranda CEMENTER HAND-MANAGER DISH Work Phone: [facility] Comment on above: Erectile dysfunction , unspecified erectile dysfunction type (Primary Dx); Gastroesophageal reflux disease without esophagitis; Environmental and seasonal allergies Start: 01-04-2022 End: 01-04-2022 Office consultation new/estab patient 60 min Jennifer Marrufo DO Work Phone: Pre-Procedure Evaluation and Assessment [facility] Comment on above: Preop exam [...] Phone: Division of Urological Surgery at [facility] Comment on above: Polycystic kidney di sease (Primary Dx) Start: 10-26-2021 End: 10-26-2021 Office outpatient new 45 minutes Suzie Giraldo MD, PhD Work Phone: [facility] Comment on above: Kidney replaced by t ransplant (Primary Dx); Long-term use of immunosuppressant medication; Aftercare following organ transplant; Abnormal blood chemistry; Immunosuppressed status; High risk medication use; Other general symptoms and signs Start: 10-12-2021 End: 10-12-2021 Subsequent hospital visit by physician Geovanna Wayne uRben CEMENTER HAND-MANAGER DISH Work Phone: [facility] [place] [facility] Comment on above: Arrived Start: 10-09-2021 End: 10-09-2021 Office outpatient visit 25 minutes Geovanna Wayne Ruben CEMENTER HAND-MANAGER DISH Work Phone: [facility] Comment on above: Polycystic kidney di sease (Primary Dx); Acute bilateral low back pain without sciatica; Erectile dysfunction, unspecified erectile dysfunction type; -donor 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/25/2016; Lack of sexual desire Start: 09-18-2021 End: 09-18-2021 Office outpatient visit 15 minutes Andrew Stanley Amos CEMENTER [employer] Work Phone: [facility] Comment on above: Kidney replaced by t ransplant (Primary Dx); Abnormal blood chemistry; Immunosuppressed status; Aftercare following organ transplant; High risk medication use Start: 04-02-2019 End: 07-07-2019 Patient encounter status Andrew Amos CEMENTER [employer] Work Phone: [facility] Start: 04-02-2019 End: 07-07-2019 Preprocedural examination done Andrew Amos CEMENTER [employer] Work Phone: [facility] Start: 08-06-2018 End: 08-06-2018 Patient encounter procedure Geovanna Miranda Facility:[facility] Start: 06-18-2018 Patient encounter procedure [facility] Start: 05-27-2018 End: 05-27-2018 Patient encounter procedure Ari Ireland Work Phone: [facility] [place] [facility] Comment on above: Arrived Start: 05-20-2018 End: 05-20-2018 Patient encounter Maggi Mcdaniels [facility] Start: 05-15-2018 Patient encounter procedure [facility] Start: 05-15-2018 End: 05-15-2018 Office outpatient visit 25 minutes Ari Ireland Work Phone: [facility] Comment on above: Osteoarthritis of ri ght knee, unspecified osteoarthritis type (Primary Dx); Chronic pain of right knee Start: 05-15-2018 End: 05-15-2018 Patient encounter procedure Ari Ireland Work Phone: [facility] Start: 01-29-2018 Patient encounter procedure NARGIS GOLDMAN [facility] Start: 01-22-2018 Patient encounter procedure ROSY Cid [facility] Start: 01-15-2018 Patient encounter procedure ROSY Cid [facility] Start: 01-28-2017 End: 01-29-2017 Ambulatory [facility] Start: 01-21-2017 End: 01-22-2017 Ambulatory [facility] Start: 01-14-2017 End: 01-15-2017 Ambulatory PROVIDER UNKNOWN [facility] Start: 01-07-2017 End: 01-08-2017 Ambulatory PROVIDER UNKNOWN [facility] Start: 12-31-2016 End: 01-01-2017 Ambulatory PROVIDER UNKNOWN [place] [facility] Procedures Date Procedure Procedure Detail Performing Clinician Start: 09-09-2024 Follow-up visit Follow-up LIAZ PENN Start: 04-23-2024 H/O: 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 S/P bypass gastrojejunostomy Liza Penn [employer] Work Phone: Start: 04-21-2024 Creatinine blood Sam UNGER Work Phone: Start: 04-21-2024 Us trnsplnt kidney real time w/image docmtn Isabell Frank MD Work Phone: Start: 04-21-2024 Urnls dip stick/tablet rgnt auto w/o microscopy Isabell Frank MD Work Phone: Start: 03-28-2024 Assay of magnesium Jamel Uriarte MD Work Phone: Start: 03-27-2024 Drug screen quantitative tacrolimus Lauren Roman [facility] Work Phone: Start: 03-27-2024 Assay of magnesium [...] Start: 03-25-2024 Blood count complete automated Jesus daly MD Work Phone: Start: 03-25-2024 CBC AND ELECTRONIC DIFF Griselda sweet MD Work Phone: Start: 03-25-2024 Complete blood count with white cell differential, automated Griselda Gallegos MD Work Phone: Start: 03-25-2024 trnsplnt kidney real time w/image docmtn Jamel Uriarte MD Work Phone: Start: 03-25-2024 Assay of magnesium Griselda Gallegos MD Work Phone: Start: 03-25-2024 CONTINUOUS CARDIAC MONITORING STRIP Other Other Start: 03-25-2024 End: 03-25-2024 Antibody screen Griselda Gallegos MD Work Phone: Comment on above: Performed By: #### CA, IPB, MGO, CHM7 ## ## [facility] (DEFAULT) [address] [place] [address] Start: 03-25-2024 Assay of magnesium Jamel Uriarte MD Work Phone: Start: 03-25-2024 Drug screen quantitative tacrolimus Griselda Gallegos MD Work Phone: Start: 03-25-2024 PREPARE TO TRANSFUSE RED BLOOD CELLS Jesus Mckenzie MD Work Phone: Start: 03-25-2024 CONTINUOUS CARDIAC MONITORING STRIP Other Other Start: 03-25-2024 Assay of magnesium Jamel Uriarte MD Work Phone: Start: 03-25-2024 Drug screen quantitative tacrolimus Jyotnsa Bahena MD Work Phone: Start: 03-24-2024 Drug screen quantitative tacrolimus Jyotsna Bahena MD Work Phone: Start: 03-24-2024 Potassium serum plasma/whole blood Hayley Alcantar MD Work Phone: Start: 03-24-2024 CONTINUOUS CARDIAC MONITORING STRIP Other Other Start: 03-24-2024 Us trnsplnt kidney real time w/image docmtn Jamel [...] Phone: Start: 02-25-2024 Antibody screen Kelsey Lozano [employer]ER [employer]NAGER [employer] Work Phone: Start: 02-25-2024 Antibody screen CAYLA VELAZQUEZ Comment on above: Performed By: #### CA, IPB, MGO, CHM7 ## ## [facility] ([facility]) [address] [place] [address] Start: 02-25-2024 Blood typing serologic abo Kelsey Funez phil [employer] Work Phone: Start: 02-25-2024 CBC AND ELECTRONIC DIFF Kelsey Lozano [employer]ER [employer]GER [employer] Work Phone: Start: 02-25-2024 Complete blood count with white cell differential, automated Kelsey Lozano [employer]NAGER [employer] Work Phone: Start: 02-25-2024 Comprehensive metabolic panel Kelsey huizar [employer]ER [employer]NAGER [employer] Work Phone: Start: 12-04-2023 Removal impacted cerumen instrumentation elielat Rodrigo Saravia MD Work Phone: Start: 2023 INTERVENTIONAL UPPER ENDOSCOPY Liza Penn C[employer]ER [employer]NAGER [employer] Work Phone: Start: 03-10-2023 End: 03-10-2023 Radex [...] Radex spine lumbosacral minimum 4 views Geovanna A Trubachik [employer]ER [employer]MANAGER [employer] Work Phone: Start: 10-12-2021 Us retroperitoneal real time w/image complete Geovanna A Trubachik [employer]ER [employer]GER [employer] Work Phone: Start: 10-09-2021 Urnls dip stick/tablet rgnt auto w/o microscopy Geovanna A Trubachik [employer]GER [employer] Work Phone: Start: 09-25-2021 Lipid 1996 panel - Serum or Plasma Geovanna Miranda C[employer]ER [employer]NAGER [employer] Work Phone: Start: 05-01-2021 Lipid 1996 panel - Serum or Plasma Andrew Trinidad C[employer]ER [employer]NAGER [employer] Work Phone: Start: 08-12-2019 History of renal transplant History of renal transplant Andrew Trinidad C[employer]ER [employer]-MANAGER [employer] Work Phone: Start: 06-18-2018 Follow-up visit Follow-up ARI IRELAND Start: 05-27-2018 End: 05-27-2018 CBC, PLATELETS PANEL, MANUAL ENTER Other Other Start: 05-27-2018 End: 05-27-2018 NA,K,CL,CO2,BUN,CREA,GLUC, MANUAL ENTER Other Other Start: 05-27-2018 End: 05-27-2018 MRI of knee Ari Ireland Work Phone: Start: 04-08-2018 Lipid 1996 panel - Serum or Plasma Ari Ireland Start: 09-25-2016 History of renal transplant -donor 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/25/2016 Andrew Trinidad [employer]ER [employer]NAGER [employer] Work Phone: H/O: 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 S/P bypa ss gastrojejunostomy Liza Penn [employer]ER [employer]NAGER [employer] Work Phone: H/O: surgery History of surgery Kelsey Lozano [employer]ER [employer]NAGER [employer] Work Phone: History of renal transplant Kidn ey replaced by transplant Andrew Stanley Amos C[employer]ER HAND-MANAGER [employer] Work Phone: History of renal transplant Dece ased-donor 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/25/2016 Geovannamarion Miranda C[employer]ER [employer]-MANAGER [employer] Work Phone: History of renal transplant Dece ased-donor 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/25/2016 Geovanna Tone Miranda [employer]ER [employer]NAGER [employer] Work Phone: History of renal transplant Kidn ey replaced by transplant Suzie Giraldo MD, PhD Work Phone: History of renal transplant Dece ased-donor 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/25/2016 Jennifer Marrufo DO Work Phone: History of renal transplant Hist ory of kidney transplant History of renal transplant Dece ased-donor kidney transplant Kelsey Cid Sherlyn C[employer]ER HAND-MANAGER [employer] Work Phone: History of renal transplant Kidn ey replaced by transplant Alesiadanish Abhishek MBBS Work Phone: History of renal transplant Hist ory of renal transplant Liza Marin Rembertorogerioevansurjit CEMENTER HAND-MANAGER [employer]ISH Work Phone: Plan of Treatment Date Care Activity Detail Author Start: 2032 PNEUMOCOCCAL VACCINE SERIES (4 of 4 - PPSV23 or PCV20) PNEUMOCOCCAL VACCINE SERIES (4 of 4 - PPSV23 or PCV20) [facility] Start: 10-17-2027 Lipid panel LIPID SCREENING [facility] Start: 09-25-2026 Fasting lipid profile LIPID SCREENING [facility] Start: 09-25-2026 Lipid panel LIPID SCREENING [facility] Start: 07-10-2026 PNEUMOCOCCAL VACCINE SERIES (3 - PPSV23 if available, else PCV20) PNEUMOCOCCAL VACCINE SERIES (3 - PPSV23 if available, else PCV20) [facility] Start: 07-10-2026 PNEUMOCOCCAL VACCINE SERIES (3 - PPSV23 or PCV20) PNEUMOCOCCAL VACCINE SERIES (3 - PPSV23 or PCV20) [facility] Start: 07-10-2026 PNEUMOCOCCAL VACCINE SERIES (3 of 3 - PPSV23 or PCV20) PNEUMOCOCCAL VACCINE SERIES (3 of 3 - PPSV23 or PCV20) [facility] Start: 07-10-2026 PNEUMOCOCCAL VACCINE SERIES (3 of 4 - PPSV23) PNEUMOCOCCAL VACCINE SERIES (3 of 4 - PPSV23) [facility] Start: 07-10-2026 Pneumococcal Vaccine: Ped or At-Risk (3 - PPSV23 if available, else PCV20) Pneumococcal Vaccine: Ped or At-Risk (3 - PPSV23 if available, else PCV20) [facility] Start: 05-01-2026 Fasting lipid profile LIPID SCREENING [facility] Start: 01-04-2026 Tetanus vaccination [facility] Start: 10-29-2024 End: 10-29-2024 Patient encounter procedure 10/29/2024 9:45 AM EDT Office Visit [facility] Trans[facility] [place] [facility] [address] 11th [place] [phone] Kadeem Franco MBBS [address] 1st [place] [address] [facility] Trans[facility] Start: 09-09-2024 End: 09-09-2024 Telemedicine consultation with patient 09/09/2024 9:00 AM EDT Telemedicine Bariatric Surgery [facility] [address] [facility] [address] [place] [phone] Liza Penn, CEMENTER HAND-MANAGER [employer]ISH [address] [place] [address] [place] [phone] [facility] Start: 07-22-2024 End: 07-22-2024 Telemedicine consultation with patient 07/22/2024 11:00 AM EST Telemedicine Bariatric Surgery [facility] [address] [facility] [address] [place] [phone] Salbador Lawrence, RD [address] [facility] [address] [place] [phone] [facility] Start: 06-19-2024 End: 06-19-2024 Patient encounter procedure 06/19/2024 8:00 AM EST Office Visit [facility] [address] [place] [address] Anne-Marie Pope, CEMENTER HAND-MANAGER [employer]ISH [address] [place], [place] [phone] [facility] [place] Start: 06-02-2024 End: 06-02-2024 Patient encounter procedure 06/02/2024 1:30 PM EST Office Visit [facility] [place] [address] [place] [address] Aliza Davis MD [address] [place] [address] [facility] [place] Start: 06-01-2024 End: 06-01-2024 Patient encounter procedure 06/01/2024 3:15 PM EST Office Visit [facility] Outpatient Care [address] [place] [address] Isabell Frank MD [address] [facility] [address] [place] [address] [facility] [place] Start: 05-26-2024 End: 05-26-2024 Patient encounter procedure 05/26/2024 11:15 AM EST Office Visit [facility] [place] [address] [place] [address] Aliza Davis MD [address] [place] [address] [facility] [place] Start: 05-21-2024 End: 05-21-2024 Patient encounter procedure 05/21/2024 10:00 AM EST Office Visit Bariatric Surgery [facility] [address] [facility] [address] [place] [phone] Liza Penn, CEMENTER HAND-MANAGER DISH [address] [facility] [address] [place] [phone] [facility] Start: 04-23-2024 End: 04-23-2024 Patient encounter procedure 04/23/2024 10:00 AM EDT Office Visit Bariatric Surgery [facility] [address] [place] [address] [place] [phone] Liza Penn, CEMENTER HAND-MANAGER DISH [address] [facility] [address] [place] [phone] Bariatric Surgery [facility] Start: 04-21-2024 End: 04-21-2024 Patient encounter procedure 04/21/2024 3:00 PM EDT Office Visit [facility] Transplant [facility] [address] 11[address] [place] [address] Sam Weiss MBBS [address] [place] [address] [facility] Start: 04-21-2024 End: 04-21-2025 ALLOSCREEN RECIPIENT (POST TX PRA) [facility] Comment on above: Expected: 04/21/2024, Expires: Start: 04-21-2024 End: 04-21-2025 BK VIRUS DNA QN, PCR, PLASMA [facility] Comment on above: Expected: 04/21/2024, Expires: Start: 04-21-2024 End: 04-21-2025 CMV BY PCR, QUANTITATIVE, BLOOD [facility] Comment on above: Expected: 04/21/2024, Expires: Start: 04-16-2024 Prostate specific antigen measurement PROSTATE CANCER SCREENING DISCUSSION [facility] Start: 04-16-2024 Screening for malignant neoplasm of colon COLORECTAL CANCER SCREENING DISCUSSION [facility] Start: 04-16-2024 End: 04-16-2024 Patient encounter procedure 04/16/2024 9:00 AM EDT Office Visit [facility] [address] [facility] [place] [address] Rodrigo Saravia MD [address] [facility] [place] [address] [facility] Start: 04-09-2024 End: 04-09-2024 Patient encounter procedure Bariatric [facility] Start: 03-27-2024 End: 03-27-2025 CHEM 7 (LYTES,BUN,CREA,GLUC) CHEM 7 (LYTES,BUN,CREA,GLUC) Lab Routine Hydronephrosis, unspecified hydronephrosis type Hyperkalemia Expected: 03/27/2024, Expires: 03/27/2025 [facility] Comment on above: Expected: 03/27/2024, Expires: Start: [...] Telehealth Pre Procedure Preparation [address] [place] [address] Trisha Bass, TABATHA Telehealth Pre Procedure Preparation Start: 03-01-2024 COVID-19 VACCINE ( season) COVID-19 VACCINE ( season) [facility] Start: 03-01-2024 Influenza vaccination INFLUENZA VACCINE (#1) [facility] Start: 02-26-2024 End: 04-26-2024 CHEM 6 (LYTES, BUN CREA) CHEM 6 (LYTES, BUN CREA) Lab Routine Preop exam for internal medicine Expected: 02/26/2024, Expires: 04/26/2024 [facility] Comment on above: Expected: 02/26/2024, Expires: Start: 02-26-2024 End: 04-26-2024 URINALYSIS REFLEX TO CULTURE URINALYSIS REFLEX TO CULTURE Fluids Routine Preop exam for internal medicine Expected: 02/26/2024, Expires: 04/26/2024 [facility] Comment on above: Expected: 02/26/2024, Expires: Start: 02-25-2024 End: 02-25-2024 Patient encounter procedure 02/25/2024 10:30 AM EDT Pre-Operative Assessment Pre-Procedure Evaluation and Assessment [facility] [address] [facility] [address] [place] [phone] Kelsey Lozano, CEMENTER HAND-MANAGER [employer]ISH [address] [facility] [address] [place] [phone] Pre-Procedure Evaluation and Assessment [facility] Start: 02-07-2024 End: 02-07-2024 Telemedicine consultation with patient 02/07/2024 9:00 AM EDT Telemedicine [facility] [place] [address] [facility] [address] [place] [address] Anne-Marie Pope, CEMENTER HAND-MANAGER DISH [address] [place] [address] [facility] [place] Start: 01-15-2024 End: 01-14-2025 XR Ankle - right 3 Views XR ANKLE RIGHT 3+ VIEWS Imaging Routine Acute right ankle pain Expected: 01/15/2024, Expires: 01/14/2025 [facility] Comment on above: Expected: 01/15/2024, Expires: Start: 01-15-2024 End: 01-15-2024 Patient encounter procedure 01/15/2024 11:00 AM EDT Office Visit [facility] [address] [place] [address] Rodrigo Saravia MD [address] [place] [address] [facility] Start: 01-08-2024 End: 01-08-2024 Patient encounter procedure 01/08/2024 11:00 AM EDT Office Visit [facility] [place] [address] [facility] [address] [place] [address] Cait Richardson MD [address] [place] [address] [facility] [place] Start: 12-31-2023 End: 12-31-2023 Telemedicine consultation with patient 12/31/2023 1:30 PM EDT Telemedicine Bariatric Surgery [facility] [address] [place] [address] [place] [phone] Liza Penn, CEMENTER HAND-MANAGER [employer]ISH [address] [facility] [address] [place] [address] [facility] Start: 12-04-2023 End: 12-04-2023 Patient encounter procedure 12/04/2023 11:00 AM EDT Office Visit [facility] [address] [place] [address] Rodrigo Saravia MD [address] [place] [address] [facility] Start: 10-01-2023 End: 09-29-2024 Overnight pulse oximetry AL PLACE HOME SLEEP STUDY AL - OFFICE PERFORMED Routine S/P laparoscopic sleeve gastrectomy History of obstructive sleep apnea Expected: 10/01/2023, Expires: 09/29/2024 [facility] Comment on above: Expected: 10/01/2023, Expires: Start: 09-30-2023 End: 09-29-2024 NICOTINE AND METABOLITES,SERUM [facility] Comment on above: Expected: 09/30/2023, Expires: Start: 09-30-2023 End: 09-30-2024 VITAMIN A [facility] Comment on above: Expected: 09/30/2023, Expires: Start: 09-30-2023 End: 09-30-2024 VITAMIN B1 [facility] Comment on above: Expected: 09/30/2023, Expires: Start: 07-08-2023 COVID-19 VACCINE () COVID-19 VACCINE () [facility] Start: 06-26-2023 COVID-19 VACCINE () COVID-19 VACCINE () [facility] Comment on above: Postponed from 03/01/2023 (patient prefe rence) Start: 06-26-2023 Zoster vaccine hzv live for subcutaneous use ZOSTER (SHINGLES) VACCINE (1 of 2) [facility] Comment on above: Postponed from 1986 (patient prefe rence) Start: 2023 End: 2023 Patient encounter procedure 2023 9:30 AM EST Appointment [facility] [address] [facility] 2nd [place] [phone] Schuyler Sparks MD [address] [facility] [address] [facility] [address] [place] [address] [facility] Start: 05-28-2023 End: 05-28-2023 Patient encounter procedure 05/28/2023 11:00 AM EST Office Visit [facility] [place] [address] [place] [address] Aliza Davis MD [address] [place], [place] [phone] [facility] [place] Start: 05-10-2023 End: 05-10-2023 ambulatory 05/10/2023 9:20 AM EST Rehab Services Visit [facility] [address] [address] Javan Diego DPM [address] [place] [address] Landen Vallejo PTA [facility] Start: 05-08-2023 End: 05-08-2023 ambulatory 05/08/2023 9:20 AM EST Rehab Services Visit [facility] [address] [place] [address] Javan Diego, DPM [address] [place] [address] Landen Vallejo PTA [facility] Start: 05-06-2023 End: 05-06-2023 ambulatory 05/06/2023 9:20 AM EST Rehab Services Visit [facility] [address] [address] Javan Diego, DPM [address] [place] [address] Landen Vallejo PTA [facility] Start: 05-03-2023 End: 05-03-2023 Patient encounter procedure 05/03/2023 1:00 PM EDT Appointment [facility] [address] [facility] 2nd [place] [phone] Nahomy Santos MD [address] [facility] [address] [place] [phone] [facility] Start: 04-19-2023 End: 04-19-2023 Patient encounter procedure 04/19/2023 10:30 AM EDT Office Visit [facility] [address] [place] [address] Javan Diego, DPM [address] [place] [address] [facility] Start: 04-08-2023 Fasting lipid profile LIPID SCREENING [facility] Work Phone: Start: 03-26-2023 End: 03-26-2023 Telemedicine consultation with patient 03/26/2023 3:00 PM EDT Telemedicine Bariatric Surgery [facility] [address] [facility] [address] [place] [address] Liza Penn CEMENTER HAND-MANAGER DISH [address] [facility] [address] [place] [address] [facility] Start: 03-01-2023 [facility] Start: 01-07-2023 End: 01-07-2023 Telemedicine consultation with patient 01/07/2023 12:30 PM EDT Telemedicine Bariatric Surgery [facility] [address] [facility] [address] [place] [address] Liza Penn, CEMENTER HAND-MANAGER DISH [address] [facility] [address] [place] [address] [facility] Start: 01-04-2023 Prostate specific antigen measurement PROSTATE CANCER SCREENING DISCUSSION [facility] Start: 11-30-2022 End: 11-30-2022 Patient encounter procedure 11/30/2022 Office Visit Dermatology Aliza Davis MD [address] [facility] [facility] [address] [place] [address] [facility] [place] Start: 11-06-2022 End: 11-06-2022 Patient encounter procedure 11/06/2022 Office Visit Transplant Surgery Payal Mahoney CEMENTER HAND-MANAGER DISH [address] [place] [address] [facility] Start: 11-05-2022 End: 11-05-2022 Telemedicine consultation with patient 11/05/2022 Telemedicine General Surgery Liza Penn, CEMENTER HAND-MANAGER DISH [address] [place] [address] [place] [phone] B[facility]ric [facility] Start: 09-20-2022 End: 09-20-2022 Patient encounter procedure 09/20/2022 Office Visit Transplant Surgery Colin Hooper, CORNEL [address] [place] [address] [facility] Start: 07-17-2022 End: 07-17-2022 Patient encounter procedure 07/17/2022 Office Visit Family Medicine Geovanna Miranda, CEMENTER HAND-MANAGER DISH [address] [place] [address] [facility] Start: 05-31-2022 End: 05-31-2022 Patient encounter procedure [facility] [place] Start: 03-30-2022 End: 03-02-2023 FREE TESTOSTERONE FREE TESTOSTERONE Lab Routine Low testosterone in male Expected: 03/30/2022, Expires: 03/02/2023 [facility] Comment on above: Expected: 03/30/2022, Expires: 3 Start: 03-30-2022 End: 03-02-2023 Testosterone [Mass/volume] in Serum or Plasma TESTOSTERONE Lab Routine Low testosterone in male Expected: 03/30/2022, Expires: 03/02/2023 [facility] Comment on above: Expected: 03/30/2022, Expires: 3 Start: 03-01-2022 Influenza vaccination [facility] Start: 02-08-2022 End: 02-08-2022 Patient encounter procedure 02/08/2022 Office Visit Urology Charley Mccracken MD, PhD [address] [place] [address] [facility] Start: 01-23-2022 End: 01-23-2022 Evaluation and management of inpatient CCCT [facility] Comment on above: Polycystic kidney disease NEPHRECTOMY OPEN Start: 01-23-2022 End: 01-23-2022 Nephrectomy w/prtl ureterect opn rib rescj compl NEPHRECTOMY OPEN Polycystic kidney disease 01/23/2022 7:15 AM EDT [facility] Start: 01-08-2022 End: 01-08-2022 Patient encounter procedure 01/08/2022 Office Visit Family [facility] Geovanna Miranda, CEMENTER HAND-MANAGER DISH [address] [place] [address] [facility] Start: 12-12-2021 Colonoscopy COLORECTAL CANCER SCREENING DISCUSSION [facility] Start: 12-12-2021 Prostate specific antigen measurement PROSTATE CANCER SCREENING DISCUSSION [facility] Start: 12-12-2021 Screening for malignant neoplasm of colon COLORECTAL CANCER SCREENING DISCUSSION [facility] Start: 12-08-2021 End: 12-08-2021 Admission to same day surgery center 12/08/2021 Surgery Endoscopy Griselda Gallegos MD [address] [address] EGD DIAGNOSTIC [facility] Comment on above: EGD DIAGNOSTIC Start: 12-08-2021 End: 12-08-2021 Esophagogastroduodenoscopy transoral diagnostic EGD DIAGNOSTIC Gastroesophageal reflux disease without esophagitis S/P laparoscopic sleeve gastrectomy 12/08/2021 9:30 AM EDT [facility] Start: 12-08-2021 Subsequent hospital visit by physician 12/08/2021 Hospital Encounter Endoscopy Griselda Gallegos MD [address] [address] Gastroesophageal reflux disease without esophagitis [facility] Comment on above: Gastroesophageal reflux disease without esophagitis Start: 11-30-2021 End: 11-30-2021 Patient encounter procedure 11/30/2021 Office Visit Urology Karon Howard MD [address] 1st [place] [address] Division [facility] at [facility] Start: 10-09-2021 End: 10-09-2022 FREE TESTOSTERONE FREE TESTOSTERONE Lab Routine Erectile dysfunction, unspecified erectile dysfunction type Lack of sexual desire Expected: 10/09/2021, Expires: 10/09/2022 [facility] Comment on above: Expected: 10/09/2021, Expires: 3 Start: 10-09-2021 End: 10-09-2022 Testosterone [Mass/volume] in Serum or Plasma TESTOSTERONE Lab Routine Erectile dysfunction, unspecified erectile dysfunction type Lack of sexual desire Expected: 10/09/2021, Expires: 10/09/2022 [facility] Comment on above: Expected: 10/09/2021, Expires: 3 Start: 10-09-2021 End: 10-09-2022 US Kidney US RENAL Imaging Routine Polycystic kidney disease -donor 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/25/2016 Expected: 10/09/2021, Expires: 10/09/2022 [facility] Comment on above: Expected: 10/09/2021, Expires: 3 Start: 10-09-2021 End: 10-09-2022 XR Spine Lumbar and Sacrum 5 Views XR SPINE LUMBOSACRAL 5 VIEWS Imaging Routine Acute bilateral low back pain without sciatica Expected: 10/09/2021, Expires: 10/09/2022 [facility] Comment on above: Expected: 10/09/2021, Expires: 3 Start: 09-12-2021 COVID-19 VACCINE (3 - Booster for Jenna series) COVID-19 VACCINE (3 - Booster for Jenna series) [facility] Start: 09-12-2021 COVID-19 VACCINE (3 - Jenna risk series) COVID-19 VACCINE (3 - Jenna risk series) [facility] Start: 10-08-2020 COVID-19 VACCINE (2 - Jenna risk 3-dose series) COVID-19 VACCINE (2 - Jenna risk 3-dose series) [facility] Start: 10-08-2020 COVID-19 VACCINE (2 - Jenna risk series) COVID-19 VACCINE (2 - Jenna risk series) [facility] Start: 09-04-2018 End: 09-04-2018 Ambulatory 09/04/2018 Office Visit Transplant Surgery Colin Hooper MBBS [address] [place] [address] [phone] [facility] Office Start: 08-01-2018 End: 08-01-2018 Ambulatory 08/01/2018 Office Visit Orthopaedics Nargis Goldman, [employer] [address] [place] [id number] [facility] Start: 07-22-2018 Prostate specific antigen measurement PROSTATE CANCER SCREENING DISCUSSION [facility] Work Phone: Start: 05-27-2018 End: 05-27-2018 Ambulatory 05/27/2018 Appointment Magnetic Resonance Imaging Ari Ireland MD [address] [place] [address] [phone] [facility] Start: 05-15-2018 Ambulatory 05/15/2018 Procedure Pass Orthopaedics [facility] Start: 03-01-2018 Influenza vaccination INFLUENZA VACCINE (#1) [facility] Work Phone: Start: 2017 Colonoscopy COLON CANCER SCREENING DISCUSSION [facility] Work Phone: Start: 2017 Protein mass conc COLON CANCER SCREENING DISCUSSION [facility] Work Phone: Start: 2017 Screening for malignant neoplasm of colon Flexible sigmoidoscopy [facility] Start: 2017 Zoster vaccine hzv live for subcutaneous use ZOSTER (SHINGLES) VACCINE (1 of 2) [facility] Start: 1986 Administration of herpes zoster vaccine Zoster Vaccines (1 of 2) [facility] Start: 1986 Hepatitis B vaccination HEP B VACCINE (1 of 3 - 19+ 3-dose series) [facility] Start: 1986 Zoster vaccine hzv live for subcutaneous use ZOSTER (SHINGLES) VACCINE (1 of 2) [facility] Start: 1985 Hepatitis C screening Hepatitis C Screening [facility] Start: 1982 HIV screening HIV Screening [facility] Start: 1980 HIV screening HIV SCREENING DISCUSSION [facility] Work Phone: Start: 1979 Depression screening using PHQ-9 (Patient Health Questionnaire 9) score Depression Screening (PHQ-2/9) [facility] Start: 1970 History and physical examination, annual for health maintenance Wellness Visit [facility] Start: 1967 Prostate specific antigen measurement PSA Level [facility] Start: 1967 Screening for malignant neoplasm of colon [facility] Bldr irrigation smpl lavage &/instlj AL BLDR IRRIGATION SMPL LAVAGE &/INSTLJ AL Charge Routine Urinary retention Ordered: 04/06/2024 [facility] Comment on above: Ordered: 04/06/2024 Comprehensive metabo lic 2000 panel - Serum or Plasma [facility] Comprehensive metabo lic 2000 panel - Serum or Plasma [facility] Ecg routine ecg w/le ast 12 lds w/i&r AL ELECTROCARDIOGRAM, COMPLETE AL - OFFICE PERFORMED Routine Preop exam for internal medicine Polycystic kidney disease -donor 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/25/2016 Immunosuppression S/P laparoscopic sleeve gastrectomy Ordered: 01/04/2022 [facility] Comment on above: Ordered: 01/04/2022 Ecg routine ecg w/le ast 12 lds w/i&r AL ECG ROUTINE ECG W/LEAST 12 LDS W/I&R AL - OFFICE PERFORMED Routine Preop exam for internal medicine History of surgery Ordered: 02/25/2024 [facility] Comment on above: Ordered: 02/25/2024 Esophagogastroduoden oscopy transoral diagnostic EGD DIAGNOSTIC Gastroesophageal reflux disease without esophagitis S/P laparoscopic sleeve gastrectomy [facility] End: 03-27-2024 GENERAL PROCEDURE GENERAL PROCEDURE Procedures Routine Once for 1 Occurrences starting 03/27/2024 until 03/27/2024 [facility] Work Phone: Comment on above: Once for 1 Occurrences starting 03/27/20 24 until 03/27/2024 Gaurav post-voiding re sidual urine&/bladder cap AL GAURAV POST-VOIDING RESIDUAL URINE&/BLADDER CAP AL Charge Routine Urinary retention Ordered: 04/06/2024 [facility] Comment on above: Ordered: 04/06/2024 Gaurav post-voiding re sidual urine&/bladder cap AL GAURAV POST-VOIDING RESIDUAL URINE&/BLADDER CAP AL Charge Routine Urinary retention Ordered: 04/21/2024 [facility] Comment on above: Ordered: 04/21/2024 MRI of knee MRI KNEE RIGHT W ITHOUT CONTRAST Routine Chronic pain of right knee Osteoarthritis of right knee, unspecified osteoarthritis type Ordered: 05/15/2018 [facility] Work Phone: Comment on above: Ordered: 05/15/2018 Orthotics mgmt & tra ing initial enctr ea 15 mins AL ORTHOTICS MGMT & TRAINJ INITIAL ENCTR EA 15 MINS AL - OFFICE PERFORMED Routine Right foot pain Sprain of right ankle, unspecified ligament, initial encounter [facility] [facility] Comment on above: Ordered: 04/19/2023 End: 03-26-2024 PLACEMENT NEPHROSTOMY CATHETER PERCUTANEOUS W/ IMAGE GUIDANCE [facility] Work Phone: Comment on above: One Time for 1 Occurrences starting 03/02 until 03/26/2024 Polysomnography SCHEDULE HOME SL EEP STUDY PFT Routine S/P laparoscopic sleeve gastrectomy History of obstructive sleep apnea Obstructive sleep apnea (adult) (pediatric) Ordered: 09/30/2023 [facility] Comment on above: Ordered: 09/30/2023 AL REMOVE BRAY CATHETER AL CEE VE BRAY CATHETER AL - OFFICE PERFORMED Routine Urinary retention Ordered: 04/06/2024 [facility] Comment on above: Ordered: 04/06/2024 Radiography for bone length studies XR BONE LENGTH STUDY Routine Chronic pain of right knee 05/15/2018 3:03 PM EST [facility] Work Phone: Radiologic examination of knee X R KNEE RIGHT 4+ VIEWS Routine Chronic pain of right knee 05/15/2018 3:03 PM EST [facility] Work Phone: Shvg skin lesion 1 t runk/arm/leg diam 0.6-1.0 cm AL SHAV SKIN LES 0.6-1CM TRUNK,ARM,LEG AL Charge Routine Neoplasm of uncertain behavior of skin Ordered: 05/28/2023 [facility] Comment on above: Ordered: 05/28/2023 Standard ECG ECG ECG Routine S/P laparoscopic sleeve gastrectomy Vitamin D deficiency Iron deficiency Medication management Ordered: 09/30/2023 [facility] Comment on above: Ordered: 09/30/2023 SURG PATH REQUEST SURG PATH REQU EST Surg Path Routine Neoplasm of uncertain behavior of skin 05/28/2023 2:42 PM EST [facility] XR Ankle - right GE 3 Views [facility] XR Foot - right 3 Views XR FOOT RIGHT 3 VIEWS Imaging Routine Right foot pain 04/19/2023 10:49 AM EDT [facility] Work Phone: [facility] Immunizations Immunization Date Immunization Notes Care Provider [facility] 05-13-2023 influenza virus vacc ine, unspecified formulation Rodrigo Saravia MD Work Phone: [facility] 07-10-2021 pneumococcal polysaccharide vaccine, 23 valent Andrew Trinidad [employer] Work Phone: [facility] 04-18-2021 influenza virus vacc ine, unspecified formulation Jennifer Marrufo DO Work Phone: [facility] 09-10-2020 COVID-19 vaccine, AD 26, Jenna 0.5 ML Andrew Trinidad [employer] Work Phone: [facility] 09-12-2018 influenza, injectabl e, quadrivalent, preservative free Andrew Trinidad [employer] Work Phone: [facility] 01-05-2016 tetanus and diphther ia toxoids, adsorbed, preservative free, for adult use (2 Lf of tetanus toxoid and 2 Lf of diphtheria toxoid) Ari Ireland [facility] Work Phone: 12-30-2015 pneumococcal conjuga te vaccine, 13 valent Ari Ireland [facility] Work Phone: Payers Date Payer Category Payer Medicare [id number] 2018 Self-pay 2013 Medicare [id number] 2013 Medicare [id number] 2013 Medicare [id number] 1967 Unknown [id number] 2.16. 840.1.183456.3.579.2.903 1967 Unknown [id number] 2.16. 840.1.074452.3.579.2.903 1967 Unknown [id number] 2.16. 840.1.965358.3.579.2.903 1967 Unknown [id number] 2.16. 840.1.258565.3.579.2.903 1967 Unknown [id number] 2.16.8 40.1.181727.3.579.2.983 1967 Unknown [id number] 2.16.8 40.1.577172.3.579.2.983 1967 Unknown [id number] 2.16.8 40.1.493920.3.579.2.983 1967 Unknown [id number] 2.16.8 40.1.714343.3.579.2.983 1967 Unknown [id number] 2.16.8 40.1.708986.3.579.2.983 1967 Unknown [id number] 2.16.8 40.1.150433.3.579.2.983 1967 Unknown [id number] 2.16.8 40.1.319743.3.579.2.983 1967 Unknown [id number] 2.16.8 40.1.033307.3.579.2.983 1967 Unknown [id number] 2.16.8 40.1.113281.3.579.2.983 1967 Unknown [id number] 2.16.8 40.1.095036.3.579.2.983 1967 Unknown [id number] 2.16. 840.1.749741.3.579.2.594 1967 Unknown [id number] 2.16. 840.1.821384.3.579.2.594 1967 Unknown [id number] 2.16. 840.1.921885.3.579.2.594 1967 Unknown [id number] 2.16. 840.1.125031.3.579.2.594 1967 Unknown [id number] 2.16 840.1.099128.3.579.2.594 1967 Unknown [id number] 2.16. 840.1.427297.3.579.2.594 1967 Unknown [id number] 2.16. 840.1.088286.3.579.2.594 1967 Unknown [id number] 2.16. 840.1.249554.3.579.2.594 1967 Unknown [id number] 2.16. 840.1.119946.3.579.2.594 1967 Unknown [id number] 2.16. 840.1.664455.3.579.2.594 1967 Unknown [id number] 2.16. 840.1.055667.3.579.2.594 1967 Unknown [id number] 2.16. 840.1.413974.3.579.2.594 1967 Unknown [id number] 2.16. 840.1.867230.3.579.2.594 1967 Unknown [id number] 2.16. 840.1.949560.3.579.2.594 1967 Unknown [id number] 2.16. 840.1.042201.3.579.2.594 1967 Unknown [id number] 2.16. 840.1.549040.3.579.2.594 1967 Unknown [id number] 2.16. 840.1.596063.3.579.2.594 1967 Unknown [id number] 2.16. 840.1.016998.3.579.2.594 1967 Unknown [id number] 2.16. 840.1.083438.3.579.2.594 1967 Unknown [id number] 2.16. 840.1.114079.3.579.2.594 1967 Unknown [id number] 2.16. 840.1.688850.3.579.2.594 Medicaid Medicaid [id number] Unknown [id number] 2.16.840 .1.812304.3.579.2.531 Social History Date Type Detail Facility Start: 05-15-2018 End: 02-20-2024 Tobacco smoking status NHIS Former smoker [facility] Work Phone: Start: 07-01-1982 End: 12-30-1999 History of tobacco use Current smoker [facility] Work Phone: Start: 07-01-1982 End: 12-30-1999 History of tobacco use Cigarette Smoker [facility] Work Phone: Start: 05-15-2018 End: 05-21-2024 Cigarettes smoked current (pack per day) - Reported [facility] Work Phone: Start: 1965 Sex Assigned At Not on file O [facility] Work Phone: Start: 11-30-2016 End: 02-20-2024 Tobacco use and exposure Smokeless tobacco non-user [facility] Start: 08-17-2021 End: 12-25-2023 Alcohol intake Current non-drinker of alcohol (finding) [facility] Start: 09-08-2021 End: 10-27-2022 Exposure to SARS-CoV-2 (event) Not sure [facility] End: 07-01-1999 History of tobacco use Pipe Smoker [facility] Start: 01-21-2022 History SDOH Alcohol Comment none [facility] Start: 08-30-2022 End: 05-21-2024 Alcohol intake Ex-drinker (finding) [facility] Start: 09-02-2022 End: 05-21-2024 Tobacco use panel [facility] Adolescent depressio n screening assessment 0 [facility] Gender identity Identifies as ma le gender (finding) [facility] Start: 09-02-2018 Sexual orientation Heterosexual (fin ding) [facility] History of tobacco use Passive smoker [facility] Start: 1965 Sex Assigned At Male F [facility] Has the electric, gas, oil, or water company threatened to shut off services in your home in past 12Mo No [facility] (I/We) worried whether (my/our) food would run out before (I/we) got money to buy more. Never true [facility] NEGATED: Highlighted rowStart: NINF History of tobacco use Passive smoker [facility] Medical Equipment Procedure Code Equipment Code Equipment Origin al Text Equipment Identifier Dates [id number] Uh Covidien Mesh Open Skirt [id number] Start: 05-09-2017 [id number] Uh [employer]ien Mesh Open Skirt [id number] Start: 05-09-2017 [id number] Uh [employer] Mesh Open Skirt [id number] Start: 05-09-2017 [id number] Uh [employer]ien Mesh Open Skirt [id number] Start: 05-09-2017 [id number] Uh [employer] Mesh Open Skirt [id number] Start: 05-09-2017 Mesh Marlex 10in X 14in - [id number] Start: 02-27-2019 [id number] Uh [employer] Mesh Open Skirt [id number] Comment on above: Description: [id number] Uh [employer] Mesh Open Skirt [id number] Start: 05-09-2017 Comment on above: Description: [id number] X Goals Date Patient Goal Desired Activity /State Personal health goal Comment on above: Formatting of this n ote might be different from the original. Short Term Goal The patient will demonstrate good adherence and understanding to recommended home exercise program for maintenance of functional gains Skilled Nursing Goal Increase R ankle PF Strength to [...] and household activities. Clinical Notes 09-25-2016 to 05-29-2024 Assessment & Plan Note - REYES Massey - 05/29/2024 9:52 PM ESTAssessment & Plan Note - REYES Massey - 05/29/2024 9:52 PM ESTPatient Instructions Note Date & Type Note Facility 05-29-2024 Evaluation + Plan note Associated Problem(s): S/P bypass gastrojejunostomy Labs: orders written for new lab studies as appropriate; see orders, printed lab order to do nutrition labs in ~ [address] consult is requested. Pharmacist consult is not requested. Continue following with Cayla Velazquez to discuss preventive health recommendations. Encouraged vitamin/mineral supplement use as appropriate. Goals as identified below. [facility] 05-29-2024 Miscellaneous Notes Associated Problem(s): S/P bypass gastrojejunostomy Labs: orders written for new lab studies as appropriate; see orders, printed lab order to do nutrition labs in ~ [address] consult is requested. Pharmacist consult is not requested. Continue following with Cayla Velazquez to discuss preventive health recommendations. Encouraged vitamin/mineral supplement use as appropriate. Goals as identified below. documented in this encounter [facility] 05-21-2024 History of Present illness Narrative Visited with patient per Liza Peralta CNP request. S/p GJ on 03/23/2024. He continues to tolerate step 4 well and is meeting both fluid and protein goals daily. He endorses a recent episode of discomfort due to eating too much during a meal. Discussed pre-portioning meals and snacks ahead of time and eating every couple of hours to prevent overeating. Patient verbalizes understanding of information provided. Bina Sheets MS, RDN, LD documented in this encounter [facility] 05-21-2024 History of Present illness Narrative Presents for surgical weight management follow up s/p GJ on 03-23-24. Weight is down 6# since last clinic visit on 04-23-24 and down 22# since DOS. He denies any nausea, vomiting, diarrhea, constipation, bloating and symptoms of reflux. Is drinking 64 oz of fluid and taking in 60-80 grams of protein daily. For exercise he is walking 4-5 days per week for 60-90 minutes. Images from the original note were not included. [facility] Comprehensive Weight Management, Metabolic & Bariatric Surgery Program Surgical Follow-Up Note CC: Follow-up (Presents for surgical weight management follow up s/p GJ on 03-23-24. Weight is down 6# since last clinic visit on 04-23-24 and down 22# since DOS. He denies any nausea, vomiting, diarrhea, constipation, bloating and symptoms of reflux. Is drinking 64 oz of fluid and taking in 60-80 grams of protein daily. For exercise he is walking 4-5 days per week for 60-90 minutes. ) HPI: Zoie Heath is a patient with a history of bariatric surgery. Specific concerns identified today include: for bariatric surgery follow up. He notes that he's got torn ligaments in his foot - recently identified on MRI and was told to expect ~ 3 months to recover (issues started in October). Plan to start elliptical and weight lifting. He's typically exercised 3 days a week along with his spouse. Weights 1-3 times a week. At home is 204.4 and has a digital scale that transmits to phone. [place] Problem S/P Bypass Gastrojejunostomy As of current [...] sx Weight Data: At time of gastroj conversion (03/23/24): 231 lbs 0 oz. At time of sleeve surgery: 249 lbs. 14 oz. Highest weight in the year prior to surgery: 261 lbs. 13 oz. Date: 07-07-19 He reports a goal weight of 170-175 pounds. Last weighed this in his 20s. Email on file: [email or web address] does not want to be on surgical patient support group email list. BMI Readings from Last 1 Encounters: 05/21/24 32.83 kg/m Wt Readings from Last 3 Encounters: 05/21/24 95.1 kg (209 lb 9.6 oz) 04/23/24 97.7 kg (215 lb 6.4 oz) 04/21/24 98.6 kg (217 lb 4.8 oz) Total weight decrease since surgery: 40 lbs. Is down one size in pants since conversion surgery. ROS: Hydration/Nutrition: is drinking > 64 oz fluids; eating >60 grm protein via 08/29-2 meal(s)/snack(s) daily; is not tracking intake. Supplements: per med list Activity: doing physical activity outside of ADLs 4-5 days per week Constitutional: denies recent acute illness, fever or chills and denies fatigue; is not currently using CPAP. GI: Negative for abdominal pain, nausea , vomiting, diarrhea, constipation, flushing, dumping, and GERD ; Advocates n/a; Hair/skin: no issues at this time. Social History Tobacco Use Smoking status: Former Current packs/day: 0.00 Average packs/day: 1 pack/day for 20.0 years (20.0 ttl pk-yrs) Types: Cigarettes Start date: 07/01/1982 Quit date: 12/30/1999 Years since quittin.4 Passive exposure: Past Smokeless tobacco: Never Substance Use Topics Alcohol use: Not Currently Comment: none I have reviewed the patient's medical history in detail. Vital Signs BP 142/79 (BP Location: Left arm, BP Position: Sitting) Pulse 70 Temp 98.1 F (36.7 C) (Temporal) Resp 16 Ht 1.702 m (5' 7 ) Wt 95.1 kg (209 lb 9.6 oz) SpO2 99% BMI 32.83 kg/m Smoking Status Former Exam Constitutional: They [...] the clinical situation. Assessment/Plan S/P bypass gastrojejunostomy Labs: orders written for new lab studies as appropriate; see orders, printed lab order to do nutrition labs in ~ [address] is requested. Pharmacist consult is not requested. Continue following with Cayla Velazquez to discuss preventive health recommendations. Encouraged vitamin/mineral supplement use as appropriate. Goals as identified below. Activity restrictions: No lifting restrictions >2 mos post-op. Lifestyle recommendations for healthy weight adequate hydration (64 oz or more for most patients, mostly water), nutrition (60 - 80 gm protein daily; calorie/portion-controlled), activity (working toward/maintaining >=150 min / wk including cardio and strength), healthy self-care and adequate sleep. Ongoing protein rich diet and resistance training are jane to maintain healthy body composition. Disposition: patient with a history of gastro-jejunostomy on 03/23/24 needs Consult with Dietitian 30 min Epic video visit follow up with Liza Penn in 4 months for bariatric surgery follow up and for review of testing. ACTIVITY TIME Direct communication with the patient 19 minutes Other patient care activities related to this service including chart/data review, coordination of care, and/or preparation of documentation. minutes Total time spent on this service. 19 minutes documented in this encounter [facility] 05-21-2024 Instructions REYES Massey - 05/21/2024 10:00 AM EST Images from the original note were not included. GENERAL INSTRUCTIONS FOLLOWING BARIATRIC SURGERY Such as GASTRIC BYPASS & SLEEVE GASTRECTOMY This handout is designed to help you remember the very important lifestyle changes you must follow after surgery and it also will help you recognize some side effects of the surgery. One of the most important ways to support success post surgery is to follow up regularly, as directed, more often early post-op and then at least once a year. Our scheduling center can be reached at [phone]. Please call 3 months before you wish to be seen. NUTRITION RELATED BLOOD WORK (LABS): It is very important to periodically check labs after bariatric surgery. We recommend checking labs 6 months after surgery and then at least once per year. To do this ahead of your appointment, please contact us for a lab order 3-4 weeks in advance if you are doing labs outside of [facility] and at least 2 weeks in advance for labs to be drawn at [facility]. DAILY VITAMINS: Take 1 vitamin daily or 2 multivitamins daily (or a complete bariatric vitamin). Take Calcium Citrate with Vitamin D 600mg twice a day (may already be included in complete bariatric vitamin). For best absorption, do not take Calcium and Iron supplements together - should be 2 hours apart. Take 500mcg of Vitamin B12 sublingually (under your tongue) daily (may be included in complete bariatric vitamin). We recommend 3,000 units (75 mcg) of vitamin D supplementation daily for all bariatric surgery patients (may be included in complete bariatric vitamin; some patients may need a higher dose). DO NOT TAKE NSAIDS (non-steroidal anti-inflammatory medications) & other pain meds that can irritate the stomach such as: Ibuprofen, Advil, Motrin, Aleve, Aspirin (and salicylates including Pepto Bismol), Naproxen - and other medications in this class. If you're unsure, check with a pharmacist or health care provider. However, Tylenol (acetaminophen) is okay! CONSTIPATION: to help prevent or relieve constipation you should: Drink plenty of water; ongoing goal of at least 64 oz a day. Take Miralax - this is usually given at discharge and is available over the counter. It may take several days to help. Milk of Magnesia - also available over the counter. Takes 30 min - 6 hours and may take more than 1 dose. If no results please call our office or your primary care provider. DUMPING SYNDROME--Dumping Syndrome happens when your stomach contents are dumped into your small intestine quickly. Often this happens soon after eating and symptoms can range from mild to severe. This can happen if you eat and drink at the same time, take too big a bite, or have more than 10 grams of sugar in one meal or snack. In most cases dumping improves on its own. SYMPTOMS: (immediately-1hour after eating) nausea, vomiting, abdominal pain, cramps, diarrhea, dizziness, lightheadedness, bloating, belching LATER SYMPTOMS: (1hr-3hrs after eating) sweating, weakness, fatigue, anxiety, heart palpitations, fainting, mental confusion, shakiness. NEW EATING HABITS--The surgery that you had will restrict how much you are able to eat and drink. To avoid problems please follow these guidelines below: Eat small amounts. Eat and drink slowly and chew food thoroughly. Wait 30 min after meals/solid food to drink liquids; it is best to wait 30mins after drinking liquids to eat solid food. Try new foods one at a time. NO high sugar foods! (less than 10 grams per meal or snack). Be careful with high starch (carbohydrate) foods as these can turn to sugar when digested and cause similar problems. Limit/avoid alcohol. Don't drink alcohol until 6 months after surgery, to let your stomach heal. Don't drink alcohol if you haven't had anything to eat within the last 2-3 hours. Alcohol may make you more intoxicated (drunk/tipsy) than you expect, which can be unsafe! POST-OPERATIVE RESTRICTIONS/INSTRUCTIONS 2 weeks after surgery: You may walk and do stairs. No water exercise until incision sites are well-healed (no scabs). Do not lift more than 10 lbs for 2 weeks after your surgery. Do not lift more than 25 lbs until 2 months after your surgery. Do not drive until you are 2 weeks post-op or after your first follow-up appointment. 2 months after surgery: No lifting restriction. You may add intensity to your exercise routine, including weight training. After advancing to step 3 diet and until 6 months after surgery: If you have your gallbladder, we recommend Actigall (ursodiol) 300mg twice a day until you are 6 months post-op (rapid weight loss period) to help prevent gallbladder disease. Ongoing: Nutrition labs - let us know where you want to complete your labs, which we can discuss at your 6 month follow up visit and then each year and your annual follow up. *Under no circumstances should you smoke after surgery. Smoking will increase your risk for developing ulcers and other post-op complications. We encourage at least 30 minutes of daily exercise. Weight training can increase your metabolism! Free Support Group - we strongly recommend you attend support group meetings We are currently offering a virtual support group on and Saturday from 5 - 6 p.m. via [employer]. To sign up, email [email or web address]. Remember to check your spam folder if you don't see the messages in your inbox. Your most recent recorded weights and BMI: Wt Readings from Last 3 Encounters: 05/21/24 95.1 kg (209 lb 9.6 oz) 04/23/24 97.7 kg (215 lb 6.4 oz) 04/21/24 98.6 kg (217 lb 4.8 oz) ; BMI Readings from Last 1 Encounters: 05/21/24 32.83 kg/m [facility] outpatient labs can be drawn at any of the following locations: Outpatient Blood Drawing Stations A Department of [facility] Services offered vary by location. For the latest clinical laboratory information, please visit [facility][email or web address]- services. Outpatient Care [facility], Room 2148 Saturday-Saturday, 7:30 a.m.-5:30 p.m. 543 2. Outpatient Care [place] [address] [facility], [address] Saturday-Saturday, 7:30 a.m.-5 p.m. 3. Outpatient Care [place] [address] [facility], [address] Saturday-Saturday, 7:30 a.m.-4:30 p.m. 4. Outpatient Care [place] [address] [facility] Saturday-Saturday, 8 a.m.-4:30 p.m. 5. [place] Out[facility] [facility], [address] Saturday-Saturday, 7:00 a.m.-5:00 p.m. 6. [facility] [address] First Floor, Room [address]1100 Saturday-Saturday, 7:30 a.m.-4:30 p.m. 7. Outpatient Care [place] [address] [facility] Saturday-Saturday, 7:30 a.m.-5 p.m. Saturday, 8 a.m.-12 p.m. 8. [facility] [address] [facility] First Floor, Room 1400 Saturday-Saturday, 8 a.m.-4:30 p.m. 9. Outpatient Care [address], [address] Saturday-Saturday, 8 a.m.-4:30 p.m. 10. [facility], Room 1001 Saturday-Saturday, 7 a.m.-5 p.m. documented in this encounter [facility] 04-23-2024 History of Present illness Narrative Patient was referred to automatic typewriter inspector by Liza Peralta CNP for step IV [...] slowly with well-tolerated foods. Discussed continuing with pre-/multivitamin, 1,200-1,500 mg calcium citrate, and 500 mcg [...] motivation to learn and/or adhere to recommendations Head Sugar Reprocess Operator resource utilized: No Spent 10 minutes with patient [id number] providing nutrition assessment and/or counseling/education and discussing step IV dietary guidelines. Bina Sheets MS, RDN, LD documented in this encounter [facility] 04-23-2024 Evaluation + Plan note Associated Problem(s): [...] or at 6 months or more post-op. [facility] 04-23-2024 Miscellaneous Notes Associated Problem(s): S/P bypass [...] more post-op. documented in this encounter [facility] 04-23-2024 History of Present illness Narrative [...] from last visit and DOS. ) HPI: Zoie Heath is a patient with a history of [...] this in his 20s. Email on file: [email or web address] is not on surgical patient support group [...] 60 - 80 gm protein daily via ; is not tracking intake. Supplements: per [...] post op visit. [facility] care Rx provided: n/a. Encouraged vitamin/mineral supplement [...] and recommendations documented in this encounter [facility] 04-21-2024 History of Present illness Narrative Images from the original note were not included. 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 Date of Kidney Transplant: 09/25/2016 7 years 6 months S/P transplant Primary Disease: Polycystic Kidneys Transplant Wash Box Operator: Kadeem Franco, Primary Care physician: Cayla Velazquez [...] results found for: CYCLOSPORIN , CYCLOSPORIN2 , [id number] , CYCLORAND No results found for: CYCLOSPORINE [...] CMVPCR Negative 07/08/2019 CMVPCR negative 07/08/2019 EBVBYPCR <199901/23/2017 EBVBYPCR <199911/21/2016 EBVBYPCR <199911/07/2016 BKVIRALP <500 06/05/2017 BKVIRALP <500 04/24/2017 BKVIRALP <500 03/27/2017 CURRENT MEDICATIONS: Alclometasone Dipropionate, Cetirizine, Flintstones Complete, Ketoconazole, Montelukast, Mycophenolate, OLANZapine, Pantoprazole, Polyethylene glycol, Sucralfate, Tacrolimus, Terbinafine, aspirin, carBAMazepine, escitalopram, magnesium oxide, rOPINIRole, and sildenafil citrate [facility] - [address] [facility] [address] [facility] [address] [facility] [address] Change in lab frequency / new order today: no Labs needed in clinic today? no enter orders & screen shot Images from the original note were not included. Nursing Assessment In Clinic Patient is accompanied to clinic today by: self only Did patient require a wheelchair or medical transport for appointment: no Is patient employed: no (Needed for [employer] forms) VITALS BP Readings from Last 3 [...] 2 times daily. PREFERRED LAB AND PHARMACY: [facility] [address] [place], [place] [address]KLEVER BAGLEY. [address] [place] [address] [id number] [facility] [id number] - [place] [address] - [address] [facility] [address] ROS and SCREEN: Chest Pain: negative Cough: negative SOB: negative Abd Pain: negative Nausea: negative Vomiting: negative Diarrhea: negative Constipation: negative Dysuria: negative; notes UOP has been baseline since hospital discharge. Edema: BLE edema Tremors: positive Headaches: negative Wound issues: negative Have a Primary Care provider? yes Cayla Banks in [place] Been seen in the last 12 months? yes QUESTIONS OR CONCERNS TO ADDRESS WITH PHYSICIAN: Notes he has had labs checked locally since hospital discharge, creatinine was 3.23 on 04/18/24. No tacrolimus level with that draw. Images from the original note were not included. Today we were happy to see Zoie Heath at [facility] Post Transplant Office for evaluation and management of immunosuppression and associated conditions in the setting of solid organ transplantation. As you may be aware Mr. Heath is a 58 y.o. year-old male. He [...] to contact me. documented in this encounter [facility] 04-21-2024 Instructions Isabell Zuleta RN - 04/21/2024 3:00 PM EDT - Return to see Dr. Franco in 6 months. - Labs today in clinic. documented in this encounter [facility] 04-21-2024 History of Present illness Narrative U/A dip was performed and results documented. Bladder Scan for Post-Void Residual: Bladder scan was performed for a residual of 101ml Patient tolerated well with no complaints. Results recorded to IHIS flow sheet. Referring provider: Griselda Gallegos MD Chief Complaint Elevated PVR Hydronephrosis of transplant kidney HPI Mr. Heath is a 58 y.o. male with history [...] Laterality: Right; Surgeon: Netta Titus MD; Location: [facility] INTERVENTIONAL RADIOLOGY (VIR) EGD DIAGNOSTIC N/A 03/23/2024 Laterality: N/A; Surgeon: Griselda Gallegos MD; Location: [facility] SAME DAY SURGERY MAIN OR NEPHRECTOMY OPEN Bilateral 01/23/2022 Laterality: Bilateral; Surgeon: Charley Mccracken MD, PhD; Location: [facility] MAIN OR NEPHRECTOMY 2021 APPENDECTOMY LAPAROSCOPIC N/A 12/26/2019 Laterality: N/A; Surgeon: Rosy Lynn DO; Location: [facility] MAIN OR GASTRECTOMY LONGITUDINAL (SLEEVE) LAPAROSCOPIC N/A 08/10/2019 Laterality: N/A; Surgeon: Griselda Gallegos MD; Location: [facility] SAME DAY SURGERY MAIN OR EGD DIAGNOSTIC N/A 08/10/2019 Laterality: N/A; Surgeon: Griselda Gallegos MD; Location: [facility] SAME DAY SURGERY MAIN OR EGD DIAGNOSTIC N/A 04/24/2019 Laterality: N/A; Surgeon: Nahomy Santos MD; Location: [facility] ENDOSCOPY LAPAROTOMY EXPLORATORY N/A 02/27/2019 Laterality: N/A; Surgeon: Raul Lott MD; Location: [facility] MAIN OR HERNIA REPAIR 02/27/2019 REPAIR HERNIA UMBILICAL OPEN W/ MESH N/A 05/09/2017 Laterality: N/A; Surgeon: CORNEL Elizondo; Location: [facility] MAIN OR KIDNEY TRANSPLANT W/O MORONGO NEPHRECTOMY N/A 09/25/2016 Laterality: N/A; Surgeon: Jose Shaw MD; Location: [facility] MAIN OR AL ARTHROSCOPY KNEE MENISCAL TRNSPLJ MED/LAT Right 11/12/2014 [...] with several of these cysts in the king salmon kidneys have increased density probably secondary to hemorrhage however low-grade malignancy would be difficult to exclude. 4. Diverticulosis without diverticulitis. Assessment/Plan Mr. Heath is a 58 y.o. male with hydronephrosis [...] for follow up plan Isabell Frank MD Surface Water Manager of Urology documented in this encounter [facility] 04-09-2024 History of Present illness Narrative Patient was referred to automatic typewriter inspector by Dr. Griselda Gallegos for step III [...] step III foods. Reviewed with patient adding 4604-1755 mg calcium citrate and 500mcg of Sublingual [...] motivation to learn and/or adhere to recommendations Head Sugar Reprocess Operator resource utilized: No Spent 12 minutes with patient [id number] providing nutrition assessment and/or counseling/education and discussing step III dietary guidelines. Bina Sheets MS, RDN, LD documented in this encounter [facility] 04-09-2024 History of Present illness Narrative First Post-Operative Visit Goals Marker Response/Education Standards Reviewed MD/CLOCK AND WATCH HANDS DIPPER notified of deviation from standard 1. 64 [...] no, Post op Standard discussed. Reviewed with MD/CLOCK AND WATCH HANDS DIPPER. Gave wound care and instructions. Verbal understanding [...] Comment: 18. Have you disposed of the [facility] prescribed opioid pills? [] Yes [] No # of narcotic pills remaining: [] If no, discussed disposal how, where, and why. [] Comment: LEARNING ASSESSMENT Learning needs identified: Yes Learner: patient Readiness to learn: No barriers; Ready to learn First Post-Operative Visit Goals Marker Response/Education Standards Reviewed MD/CLOCK AND WATCH HANDS DIPPER notified of deviation from standard 1. 64 [...] no, Post op Standard discussed. Reviewed with MD/CLOCK AND WATCH HANDS DIPPER. Gave wound care and instructions. Verbal understanding [...] op education provided as needed. Referred to [facility] office staff as needed. [] Comment: [x] No 17. Primary care 1 month post op scheduled [x] Yes [] No [] If no, Post op standard reviewed, education provided [] Comment: 18. Have you disposed of the [facility] prescribed opioid pills? [] Yes [...] Will meet with RD for nutrition education. Zoie Heath presents today 2 weeks after having undergone [...] Laterality: Right; Surgeon: Netta Titus MD; Location: [facility] INTERVENTIONAL RADIOLOGY (VIR) EGD DIAGNOSTIC N/A 03/23/2024 Laterality: N/A; Surgeon: Griselda Gallegos MD; Location: [facility] SAME DAY SURGERY MAIN OR NEPHRECTOMY OPEN Bilateral 01/23/2022 Laterality: Bilateral; Surgeon: Charley Mccracken MD, PhD; [facility] NEPH[facility] 2021 APPENDECTOMY LAPAROSCOPIC N/A 12/26/2019 Laterality: N/A; Surgeon: Rosy Lynn DO; [facility] OR GASTRECTOMY LONGITUDINAL (SLEEVE) LAPAROSCOPIC N/A 08/10/2019 Laterality: N/A; Surgeon: Griselda Gallegos MD; Location: [facility] SAME DAY SURGERY MAIN OR EGD DIAGNOSTIC N/A 08/10/2019 Laterality: N/A; Surgeon: Griselda Gallegos MD; Location: [facility] SAME DAY SURGERY MAIN OR EGD DIAGNOSTIC N/A 04/24/2019 Laterality: N/A; Surgeon: Nahomy Santos MD; Location: [facility] ENDOSCOPY LAPAROTOMY EXPLORATORY N/A 02/27/2019 Laterality: N/A; Surgeon: Raul Lott MD; Location: [facility] MAIN OR HERNIA REPAIR 02/27/2019 REPAIR HERNIA UMBILICAL OPEN W/ MESH N/A 05/09/2017 Laterality: N/A; Surgeon: CORNEL Elizondo; Location: [facility] MAIN OR KIDNEY TRANSPLANT W/O MORONGO NEPHRECTOMY N/A 09/25/2016 Laterality: N/A; Surgeon: Jose Shaw MD; Location: [facility] MAIN OR AL ARTHROSCOPY KNEE MENISCAL TRNSPLJ MED/LAT Right 11/12/2014 [...] needed Pantoprazole (Protonix) [address] tablet [...] diet. 2. The patient will see our radiotelegraph operator servicer today 3. We encouraged exercise and/or increasing overall activity as appropriate. 4. Prescription offered as needed. 5. The patient will follow up in 2 weeks or earlier if needed. documented in this encounter [facility] 04-06-2024 History of Present illness Narrative Pt was given an explanation regarding the voiding trial and wishes to proceed. Pt undressed and the bray bag was removed from the catheter. 420 mL of 0.9%NaCl was slowly instilled into the bladder. The balloon of a 16 Guyanese catheter was then deflated. The patient voiced [...] questions arise documented in this encounter [facility] 03-28-2024 History of Present illness Narrative Patient discharged to home per MD order. Charge nurse reviewed bariatric diet instructions, post-surgical instructions, and urinary catheter instructions. Additional catheter supplies including leg bag sent with patient. Mr. Heath verbalized understanding regarding follow up appointments, medications, [...] Addendum I saw and personally examined Mr. Heath with the renal team. I discussed the [...] above Volume expand Primo Barber MD, DIANN Surface Water Manager of Clinical Medicine [facility] A dual assessment of skin condition was performed by this automatic typewriter inspector and Tere MAYS. Skin Assessment: Skin within [...] Spouse: Yes Name and Contact information: Derick Heath Spouse [phone] Adult Child(edgardo), List All Adult Children: Yes [...] Practitioner) Coordinator Transplant (Inactive) as PCP - Truck Driver Rubbish Collector Roberto Carlos Davey MD as Consulting Physician (Nephrology) Environment/Caregivers Is the patient from a facility or penitentiary?: No Patient lives with: Spouse or Partner [...] Is the patient on Anticoagulation? : No [facility] [id number] - [place] [address] - [address] [facility] [address] [facility] [address] [address] Does the patient or healthcare sales representative express financial concerns? : No Employed?: Retired Coping/Stress Concerns about patient s coping and stress?: No Concerns about patient s caregiver s coping and stress?: No Values and Beliefs Cultural or yazidi practices that may impact discharge planning and/or [...] Home Brad Silva RN, BSN, ACM Clinical Recruitment And Outreach Assistant [facility] Bariatric Surgery Progress Note Subjective: Reports no [...] IV Piggyback:100] Out: 550 [Urine:550] Recent Labs 03/23/2492303/24/24156 POTASSIUM 5.1* 5.5* CREATSERUM 2.08* 2.17* Physical Exam: Gen: sitting up in bed, alert and oriented, in no acute distress Lungs: unlabored breathing on room air Cardiac: regular rate and rhythm on hall monitor Abdomen: soft, appropriately-tender, non-distended, laparoscopic incisions well approximated, dry, without signs of infection. Labs: WBC/Hgb/Hct/Plts: 14.38/9.3/28.3/179 (03/24 157) Na/K+/Phos/Mg/Ca: 138/5.5/2.7/1.9/8.6 (03/24 157) Bun/Creat/Cl/CO2/Glucose: 45/2.17/111/19/144 (03/24 015) Assessment/Plan: Zoie Heath is a 58 y.o. male with Class [...] 9:53 AM Bariatric Surgery Post-Operative Check ID/CC: Zoie Heath is a 58 y.o. male who is [...] or psychosis, appropriate mood and affect Assessment/Plan: Zoie Heath is a 58 y.o. male who is [...] please do not hesitate to page the instruction dean resident Jamel Uriarte MD PGY-1 Anesthesiology Bariatric ([facility]) Surgery Service Pager: [phone] 03/23/24 5:54 PM On admission to [facility], from OR a dual RN initial assessment of skin condition was performed by Roberto Carlos Morgan RN and Andrew MASY. Skin Assessment: Skin within defined limits:Yes Adilson Score: 19 LDA Added:No Roberto Carlos Morgan RN [facility] Plan of care note [...] Optimal Pain Control and Function Outcome: Progressing [facility] 03-28-2024 Miscellaneous Notes Problem: Adult Inpatient [...] Diversional Activities: television smartphone Pain Management Interventions: [id number]-ynjkp dosing utilized pain medication given pain management [...] Progress Brad Silva RN, BSN, ACM Clinical Recruitment And Outreach Assistant Problem: Adult Inpatient Plan of Care Goal: [...] Pulse ox with Rn. Patient family updated. Zoie Heath ([id number]) PRE OPERATIVE DIAGNOSIS Gastroesophageal reflux disease without [...] Anesthesiologist: Kurt Gonzalez MD; Yulia Hong MD Venetian Blind Cleaner And Repairer: JADEN Vaughan; JADEN Orosco Student Anesthesiologist Insurance Claim Representative: Jayshree West SURGICAL STAFF Fashion Artist: Della Ace RN; Prema Rodriguez RN Scrub Person: Mary Angel COMPLICATIONS None ESTIMATED BLOOD LOSS Minimal SPECIMENS No specimen sent * No specimens in log * Jyotsna Bahena MD March 23, 2024 1:47 PM OPERATIVE/PROCEDURE REPORT Surgeon(s)/Proceduralist(s) and Insurance Claim Representative(s): Surgeon(s) and Role: * Griselda Gallegos - [...] the stapler was used to create a zdpa-wi-cobs anastomosis. The common opening was closed with [...] moderate pain. VSS. documented in this encounter [facility] 03-27-2024 Plan of care note Plan of [...] PER Bentley MD PGY4 General Surgery *[id number] [facility] Work Phone: 03-27-2024 Plan of care note Transplant Nephrology Plan of Care Tac trough remains elevated. Reduce Tac to 4mg/4mg. [facility] 03-27-2024 Plan of care note Problem: Adult Inpatient Plan of Care Goal: Plan of Care Review Outcome: Progressing Problem: Bariatric Surgery Goal: Optimal Coping with Surgery Outcome: Progressing Goal: Absence of Infection Signs and Symptoms Outcome: Progressing Goal: Optimal Pain Control and Function Outcome: Progressing Intervention: Prevent or Manage Pain Flowsheets (Taken 03/27/2024 0936) Diversional Activities: television smartphone Pain Management Interventions: vlajed-yvw-dzdqc dosing utilized pain medication given pain management plan reviewed with patient/caregiver relaxation techniques promoted T [facility] 03-27-2024 Consult note Formatting of is note might be different from the [...] low. [x]Tray table within reach. [x]Physician and clinical services director notified of the above Education Patient/Family informed to notify nurse of any complications including pain, redness, swelling, or leaking post-insertion. Thank you for allowing our team to participate in the care of this patient. Vascular Access Team [phone] [facility] 03-27-2024 Consult note Formatting of is note might be different from the [...] low. [x]Tray table within reach. [x]Physician and clinical services director notified of the above Education Patient/Family informed to notify nurse of any complications including pain, redness, swelling, or leaking post-insertion. Thank you for allowing our team to participate in the care of this patient. Vascular Access Team [phone] Associated Order(s): IP CONSULT TO INTERVENTIONAL RADIOLOGY Interventional Radiology Consult Note [facility] dynamometer mechanic [id number] - [facility] dynamometer mechanic [id number] Admission Date: 03/23/2024 Requesting Provider/Service: Hayley Alcantar MD Reason for Consult: h/o renal transplant 2017, now with severe hydronephrosis. pls assess for nephrostogram and transplant neph tube placement per transplant surgery HPI: Zoie Heath is a 58 y.o. male with a [...] kidney, similar to the prior exam. Impression/Plan: Zoie Heath is a 58 y.o. year old male [...] SURGERY CONSULT NOTE: Consult: 03/25/2024, 7:37 AM Furniture Finisher Apprentice: Aurora Guardado MD Reason for Consult: 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 CURRENT HOSPITALIZATION LOS: Admit Date: 03/23/2024 [facility] Hospital LOS: 2 days Zoie Heath is a 58 y.o. 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 Shaw 08/2016 and bilateral nephrectomies ([place], 2021), currently POD2 from laparoscopic conversion of [...] Laterality: N/A; Surgeon: Griselda Gallegos MD; Location: [facility] SAME DAY SURGERY MAIN OR NEPHRECTOMY OPEN Bilateral 01/23/2022 Laterality: Bilateral; Surgeon: Charley Mccracken MD, PhD; Location: [facility] [facility] APPENDECTOMY LAPAROSCOPIC N/A 12/26/2019 Laterality: N/A; Surgeon: Rosy Lynn DO; Location: [facility] MAIN OR GASTRECTOMY LONGITUDINAL (SLEEVE) LAPAROSCOPIC N/A 08/10/2019 Laterality: N/A; Surgeon: Griselda Gallegos MD; Location: [facility] SAME DAY SURGERY MAIN OR EGD DIAGNOSTIC N/A 08/10/2019 Laterality: N/A; Surgeon: Griselda Gallegos MD; Location: [facility] SAME DAY SURGERY MAIN OR EGD DIAGNOSTIC N/A 04/24/2019 Laterality: N/A; Surgeon: Nahomy Santos MD; Location: [facility] ENDOSCOPY LAPAROTOMY EXPLORATORY N/A 02/27/2019 Laterality: N/A; Surgeon: Raul Lott MD; Location: [facility] MAIN OR HERNIA REPAIR 02/27/2019 REPAIR HERNIA UMBILICAL OPEN W/ MESH N/A 05/09/2017 Laterality: N/A; Surgeon: CORNLE Elizondo; Location: [facility] MAIN OR KIDNEY TRANSPLANT W/O MORONGO NEPHRECTOMY N/A 09/25/2016 Laterality: N/A; Surgeon: Jose Shaw MD; Location: [facility] MAIN OR AL ARTHROSCOPY KNEE MENISCAL TRNSPLJ MED/LAT Right 11/12/2014 [...] Jyotsna Bahena MD 40 mg at 03/24/24 0803 Escitalopram (LEXAPRO) tablet 20 mg 20 mg Oral QAM Jyotsna Bahena MD 20 mg at 03/24/24 0803 Haloperidol (HALDOL) tablet 0.5 mg 0.5 mg Oral Q6H PRN Jyotsna Bahena MD Lactated ringers IV solution Intravenous Continuous Jamel Uriarte MD 50 mL/hr at 03/25/24 0358 Rate Verify at 03/25/24 0358 Montelukast (SINGULAIR) tablet 10 mg 10 mg Oral Daily Tiki Mi APRN-TAMY Mycophenolate oral suspension 750 mg 750 mg [...] Q6HNS Jyotsna Bahena MD 4 mg at 03/23/241827 oxyCODONE (ROXICODONE) tablet 5 mg 5 mg Oral Q3H PRN Jyotsna Bahena MD 5 mg at 03/23/242030 Pantoprazole (PROTONIX) tablet DR 40 mg 40 mg Oral BID Tiki Mi APRN-MANAGER DISH 40 mg at 03/24/24 165 Polyethylene glycol [...] 1 g Oral BID AC Tiki Mi APRN-MANAGER DISH 1 g at 03/24/24 165 tacrolimus (PROGRAF) susp 6 mg 6 mg [...] indices Labs-CBC: WBC/Hgb/Hct/Plts: 9.82/8.0/25.1/150 (03/25 310) Labs-Chem 7([facility]): Bun/Creat/Cl/CO2/Glucose: 47/2.60/110/24/111 (03/25 310) Na/K+/Phos/Mg/Ca: 141/5.0/2.9/1.9/8.7 (03/25 310) Labs-Coags: ASSESSMENT/PLAN: Zoie Heath is a 58 y.o. male with PMH [...] Laterality: N/A; Surgeon: Griselda Gallegos MD; Location: [facility] SAME DAY SURGERY MAIN OR NEPHRECTOMY OPEN Bilateral 01/23/2022 Laterality: Bilateral; Surgeon: Charley Mccracken MD, PhD; [facility] 2021 APPENDECTOMY LAPAROSCOPIC N/A 12/26/2019 Laterality: N/A; Surgeon: Rosy Lynn DO; Location: [facility] MAIN OR GASTRECTOMY LONGITUDINAL (SLEEVE) LAPAROSCOPIC N/A 08/10/2019 Laterality: N/A; Surgeon: Griselda Gallegos MD; Location: [facility] SAME DAY SURGERY MAIN OR EGD DIAGNOSTIC N/A 08/10/2019 Laterality: N/A; Surgeon: Griselda Gallegos MD; Location: [facility] SAME DAY SURGERY MAIN OR EGD DIAGNOSTIC N/A 04/24/2019 Laterality: N/A; Surgeon: Nahomy Santos MD; Location: [facility] ENDOSCOPY LAPAROTOMY EXPLORATORY N/A 02/27/2019 Laterality: N/A; Surgeon: Raul Lott MD; Location: [facility] MAIN OR HERNIA REPAIR 02/27/2019 REPAIR HERNIA UMBILICAL OPEN W/ MESH N/A 05/09/2017 Laterality: N/A; Surgeon: CORNEL Elizondo; Location: [facility] MAIN OR KIDNEY TRANSPLANT W/O MORONGO NEPHRECTOMY N/A 09/25/2016 Laterality: N/A; Surgeon: Jose Shaw MD; Location: [facility] MAIN OR AL ARTHROSCOPY KNEE MENISCAL TRNSPLJ MED/LAT Right 11/12/2014 [...] Neuro: Awake and alert Bun/Creat/Cl/CO2/Glucose: 45/2.17/111/19/144 (03/24 0157) WBC/Hgb/Hct/Plts: 14.38/9.3/28.3/179 (03/24 015) Assessment / Plan 56M with HX of [...] Addendum I saw and personally examined Mr. Heath with the renal team. I discussed the [...] CREATSERUM 1.53 01/02/2022 Primo Barber MD, DIANN Surface Water Manager of Clinical Medicine [facility] documented in this encounter [facility] 03-26-2024 Plan of care note Problem: [...] Optimal Pain Control and Function Outcome: Progressing [facility] 03-26-2024 Consult note Associated Order (s): IP CONSULT TO INTERVENTIONAL RADIOLOGY Interventional Radiology Consult Note [facility] dynamometer mechanic [id number] - [facility] dynamometer mechanic [id number] Admission Date: 03/23/2024 Requesting Provider/Service: Hayley Alcantar MD Reason for Consult: h/o renal transplant 2016, now with severe hydronephrosis. pls assess for nephrostogram and transplant neph tube placement per transplant surgery HPI: Zoie Heath is a 58 y.o. male with a [...] kidney, similar to the prior exam. Impression/Plan: Zoie Heath is a 58 y.o. year old male [...] increase the time from consult to procedure. [facility] Work Phone: 03-25-2024 Plan of care note [...] team. PER Bentley MD PGY4 General Surgery *[id number] [facility] 03-25-2024 Plan of care note Problem: Adult [...] Goal: Optimal Coping with Surgery Outcome: Progressing [facility] 03-25-2024 Consult note Associated Order (s): IP CONSULT TO SURGERY - TRANSPLANT (RENAL) TRANSPLANT SURGERY CONSULT NOTE: Consult: 03/25/2024, 7:37 AM Furniture Finisher Apprentice: Aurora Guardado MD Reason for Consult: 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 CURRENT HOSPITALIZATION LOS: Admit Date: 03/23/2024 [facility] LOS: 2 days Zoie Heath is a 58 y.o. 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 Shaw 08/2016 and bilateral nephrectomies (, 2021), currently POD2 from laparoscopic conversion of [...] Laterality: N/A; Surgeon: Griselda Gallegos MD; Location: [facility] SAME DAY SURGERY MAIN OR NEPHRECTOMY OPEN Bilateral 01/23/2022 Laterality: Bilateral; Surgeon: Charley Mccracken MD, PhD; Location: [facility] MAIN OR NEPHRECTOMY 2021 APPENDECTOMY LAPAROSCOPIC N/A 12/26/2019 Laterality: N/A; Surgeon: Rosy Lynn DO; Location: [facility] MAIN OR GASTRECTOMY LONGITUDINAL (SLEEVE) LAPAROSCOPIC N/A 08/10/2019 Laterality: N/A; Surgeon: Griselda Gallegos MD; Location: [facility] SAME DAY SURGERY MAIN OR EGD DIAGNOSTIC N/A 08/10/2019 Laterality: N/A; Surgeon: Griselda Gallegos MD; Location: [facility] SAME DAY SURGERY MAIN OR EGD DIAGNOSTIC N/A 04/24/2019 Laterality: N/A; Surgeon: Nahomy Santos MD; Location: [facility] ENDOSCOPY LAPAROTOMY EXPLORATORY N/A 02/27/2019 Laterality: N/A; Surgeon: Raul Lott MD; Location: [facility] MAIN OR HERNIA REPAIR 02/27/2019 REPAIR HERNIA UMBILICAL OPEN W/ MESH N/A 05/09/2017 Laterality: N/A; Surgeon: CORNEL Elizondo; Location: [facility] MAIN OR KIDNEY TRANSPLANT W/O MORONGO NEPHRECTOMY N/A 09/25/2016 Laterality: N/A; Surgeon: Jose Shaw MD; Location: [facility] MAIN OR AL ARTHROSCOPY KNEE MENISCAL TRNSPLJ MED/LAT Right 11/12/2014 [...] QAM REYES Ann 81 mg at 03/24/24 08 carBAMazepine (TEGRETOL) chewable tablet 200 mg 200 mg Oral QAM RYEES Ann 200 mg at 03/24/24 08 carBAMazepine (TEGRETOL) chewable tablet 300 mg 300 mg Oral Nightly Jyotsna Bahena MD 300 mg at 03/24/242021 Cetirizine (ZyrTEC) tablet 10 mg 10 mg Oral Daily REYES Ann Cyclobenzaprine (FLEXERIL) tablet 5 mg 5 mg Oral TID PRN Jyotsna Bahena MD 5 mg at 03/24/242024 Enoxaparin Sodium (LOVENOX) injection 40 mg 40 mg Subcutaneous Q24H Jyotsna Bahena MD 40 mg at 03/24/24802 Escitalopram (LEXAPRO) tablet 20 mg 20 mg Oral QAM Jyotsna Bahena MD 20 mg at 03/24/24 08 Haloperidol (HALDOL) tablet 0.5 mg 0.5 mg Oral Q6H PRN Jyotsna Bahena MD Lactated ringers IV solution Intravenous Continuous Jamel Uriarte MD 50 mL/hr at 03/25/24 0358 Rate Verify at 03/25/24 0358 Montelukast (SINGULAIR) tablet 10 mg 10 mg Oral Daily Tiki Mi APRN-TAMY Mycophenolate oral suspension 750 mg 750 mg [...] 1 g 1 g Oral BID AC REYES Ann 1 g at 03/24/24 165 tacrolimus (PROGRAF) susp 6 mg 6 mg [...] indices Labs-CBC: WBC/Hgb/Hct/Plts: 9.82/8.0/25.1/150 (03/25 310) Labs-Chem 7([facility]): Bun/Creat/Cl/CO2/Glucose: 47/2.60/110/24/111 (03/25 310) Na/K+/Phos/Mg/Ca: 141/5.0/2.9/1.9/8.7 (03/25 310) Labs-Coags: ASSESSMENT/PLAN: Zoie Heath is a 58 y.o. male with PMH [...] he will need a nephrostogram by IR. [facility] Work Phone: 03-24-2024 Consult note Associated Order [...] N/A; Surgeon: Griselda Gallegos MD; Location: [facility] SAME DAY SURGERY MAIN OR NEPHRECTOMY OPEN Bilateral 01/23/2022 Laterality: Bilateral; Surgeon: Charley Mccracken MD, PhD; Location: [facility] MAIN OR NEPHRECTOMY 2021 APPENDECTOMY LAPAROSCOPIC N/A 12/26/2019 Laterality: N/A; Surgeon: Rosy Lynn DO; Location: [facility] MAIN OR GASTRECTOMY LONGITUDINAL (SLEEVE) LAPAROSCOPIC N/A 08/10/2019 Laterality: N/A; Surgeon: Griselda Gallegos MD; Location: [facility] SAME DAY SURGERY MAIN OR EGD DIAGNOSTIC N/A 08/10/2019 Laterality: N/A; Surgeon: Griselda Gallegos MD; Location: [facility] SAME DAY SURGERY MAIN OR EGD DIAGNOSTIC N/A 04/24/2019 Laterality: N/A; Surgeon: Nahomy Santos MD; Location: [facility] ENDOSCOPY LAPAROTOMY EXPLORATORY N/A 02/27/2019 Laterality: N/A; Surgeon: Raul Lott MD; Location: [facility] MAIN OR HERNIA REPAIR 02/27/2019 REPAIR HERNIA UMBILICAL OPEN W/ MESH N/A 05/09/2017 Laterality: N/A; Surgeon: CORNEL Elizondo; Location: [facility] MAIN OR KIDNEY TRANSPLANT W/O MORONGO NEPHRECTOMY N/A 09/25/2016 Laterality: N/A; Surgeon: Jose Shaw MD; Location: [facility] MAIN OR AL ARTHROSCOPY KNEE MENISCAL TRNSPLJ MED/LAT Right 11/12/2014 [...] Addendum I saw and personally examined Mr. Heath with the renal team. I discussed the [...] CREATSERUM 1.53 01/02/2022 Primo Barber MD, DIANN Surface Water Manager of Clinical Medicine [facility] 03-24-2024 Nurse Note 03/24/24 1115 Medication Prior Auth Medication Requiring Prior Auth SUCRALFATE Dosage Form Tablet Intervention spoke with team Outcome Prior Auth Started Medication PA Process Complete? In Progress Brad Silva RN, BSN, ACM Clinical Recruitment And Outreach Assistant [facility] 03-24-2024 Plan of care note Problem: Adult [...] Coughing and I/S therapy/use was also encouraged. [facility] 03-23-2024 Plan of care note Problem: Adult Inpatient Plan of Care Goal: Plan of Care Review Outcome: Progressing Goal: Optimal Comfort and Wellbeing Outcome: Progressing Problem: Bariatric Surgery Goal: Optimal Coping with Surgery Outcome: Progressing Goal: Effective Gastrointestinal Motility and Elimination Outcome: Progressing Goal: Optimal Pain Control and Function Outcome: Progressing [facility] 03-23-2024 Plan of care note Problem: Adult [...] is within reach. Will continue to monitor [facility] 03-23-2024 Nurse Note Patient met PACU discharge criteria. Phone report given to TABATHA Townsend. Patient transported on telemetry and cont. Pulse ox with Rn. Patient family updated. [facility] 03-23-2024 Surgery Postoperative evaluation and management note Zoie Heath ([id number]) PRE OPERATIVE DIAGNOSIS Gastroesophageal reflux disease without [...] Anesthesiologist: Kurt Gonzalez MD; Yulia Hong MD Venetian Blind Cleaner And Repairer: JADEN Vaughan; JADEN Orosco Student Anesthesiologist Insurance Claim Representative: Jayshree West SURGICAL STAFF Fashion Artist: Della Ace RN; Prema Rodriguez RN Scrub Person: Mary Ortiz COMPLICATIONS None ESTIMATED BLOOD LOSS Minimal SPECIMENS No specimen sent * No specimens in log * Jyotsna Bahena MD March 23, 2024 1:47 PM [facility] Work Phone: 03-23-2024 Surgery Postoperative evaluation and management note OPERATIVE/PROCEDURE REPORT Surgeon(s)/Proceduralist(s) and Insurance Claim Representative(s): Surgeon(s) and Role: * Griselda Gallegos - [...] the stapler was used to create a [id number] anastomosis. The common opening was closed with [...] scrubbed the entire case. Griselda Gallegos MD [facility] 03-23-2024 Nurse Note Patient arrived to PACU 8 from OR . Patient stable and attached to monitors. Bedside report from Dahlia Bahena MD and JADEN Krishnan. Patient turned side to side to remove extra linens. Patient denies nausea, states has moderate pain. VSS. [facility] 03-23-2024 Hospital Discharge instructions Jamel Uriarte MD - 03/23/2024 9:10 AM EDT Reminder about all medications: You may take tablets and capsules whole that are smaller than a dime. All tablets and capsules that are larger than a dime should be split or opened until you are on the Step 3 diet. BARIATRIC SURGERY MEDICATIONS FOR PAIN CONTROL Tylenol (Acetaminophen): you may take [id number] Tylenol as needed every 6 hours. Do [...] or Cigarette smoke (including second-hand smoke). VITAMINS Arlene's Complete Chewable vitamin: take it twice per [...] the Bariatric Surgery Clinic Call Center at [phone]. It is important that you try to contact the Bariatric Surgery Clinic Call Center during morning hours if you feel that you may need to be seen the same day before closing time. After 4pm weekdays and on weekends an urgent need that is not an emergency may be handled by the General Surgery Resident [employer] Insights Lead: Call the hospital tape keller operator at [phone] to ask for the on-call General Surgery Resident to be paged. You may choose to send a [email or web address] / [email or web address] message to your provider for non-urgent questions that can be addressed on the next business day. If you are unable to reach your doctor and it is a medical emergency, dial 911 or report to the nearest Emergency Department for evaluation. LINK: AFTER BARIATRIC SURGERY BOOKLET: (YOU CAN COPY AND PASTE THIS LINK INTO YOUR WEB BROWSER FROM THE AFTER VISIT SUMMARY IN [email or web address] IF YOU WANT AN ELECTRONIC COPY OF THE BOOKLET YOU WERE GIVEN IN THE HOSPITAL): [email or web address] [facility] Comprehensive Weight Management & Bariatric Surgery The following attachments cannot be sent through Care Everywhere.Home Care for Bray Catheter: Male ([facility]) ([place])Caring for Your Urinary Catheter: Video ([place])documented in this encounter [facility] 03-23-2024 History and physical note Perioperative Surgical [...] level Jamel Uriarte MD PGY-1 Anesthesiology Bariatric ([facility]) Surgery Service Pager: [phone] [facility] 03-23-2024 History and physical note Perioperative Surgical [...] level Jamel Uriarte MD PGY-1 Anesthesiology Bariatric ([facility]) Surgery Service Pager: [phone] documented in this encounter [facility] 02-25-2024 History and physical note Images from the original note were not included. PREOPERATIVE ASSESSMENT H&P [facility] [place] Name: Zoie Heath Date of Surgery: 03/23/2024 . Surgeon: Oscar Pre-Op Diagnosis: GERD without esophagitis. Planned Procedure: lap conversion of sleeve to gastric bypass, egd Anesthesia Type: planned for general anesthesia SUMMARY AND RECOMMENDATIONS Pending lab results from Outside Facility. Strict NPO Diet recommended. Zoie Heath is a 58 y.o. year old patient [...] denies a history of cardiac events or CA. Denies chest pain, palpitation or worsening SOB over the last few months ASSESSMENT AND PLAN- # Functional status - METS: Moderate: 4-7 METS functional status. 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 # Pre-operative Risk Evaluation: Patient Meets the Following RCRI Criteria (RCRI): None: 0 criteria suggesting a 3.9% risk of major cardiac events or within 30 days. Zoie Heath is at a Acceptable risk based on [...] and Cross -Preadmission URINALYSIS REFLEX TO CULTURE AL ECG, CLINIC PERFORMED Lab A/P - Lab Results Component Value Date SODIUM 135 02/25/2024 POTASSIUM 5.0 02/25/2024 CHLORIDE 102 02/25/2024 CO2 26 02/25/2024 BUN 45 (H) 02/25/2024 CREATSERUM 2.65 (H) 02/25/2024 GLUCOSE 95 02/25/2024 This CLOCK AND WATCH HANDS DIPPER called patient and notified him of abnormal lab results. Instructed patient to hold Chlorthalidone and Losartan for 2 days, increase water intake and that I will place orders for a repeat lab draw on 02/27/2024 at [facility] near patient's home. I asked patient to reach out to his Wash Box Operator, Dr. Davey at the OR in [place], [place] to regarding lab results. Abnormal results were [...] us to participate in the care of Zoie Heath. Note to patient: The 21st Century Cures Act makes medical notes like these available to patients in the interest of transparency. However, be advised this is a medical document. It is intended as xprw-hj-yvcr communication. It is written in medical language and may contain abbreviations or verbiage that are unfamiliar. It may appear blunt or direct. Medical documents are intended to carry relevant information, facts as evident, and the clinical opinion of the practitioner. Mmodal dictation software may have been used to write this note. Please excuse any errors that may have occurred as a result of the dictation. Kelsey Lozano, CEMENTER HAND-TAMY [facility] Perioperative [facility] [address] [facility] Review of Systems (OSUROS) Review of [...] Bilateral; Surgeon: Charley Mccracken MD, PhD; Location: [facility] MAIN OR NEPHRECTOMY 2021 APPENDECTOMY LAPAROSCOPIC N/A 12/26/2019 Laterality: N/A; Surgeon: Rosy Lynn DO; Location: [facility] MAIN OR GASTRECTOMY LONGITUDINAL (SLEEVE) LAPAROSCOPIC N/A 08/10/2019 Laterality: N/A; Surgeon: Griselda Gallegos MD; Location: [facility] SAME DAY SURGERY MAIN OR EGD DIAGNOSTIC N/A 08/10/2019 Laterality: N/A; Surgeon: Griselda Gallegos MD; Location: [facility] SAME DAY SURGERY MAIN OR EGD DIAGNOSTIC N/A 04/24/2019 Laterality: N/A; Surgeon: Nahomy Santos MD; Location: [facility] ENDOSCOPY LAPAROTOMY EXPLORATORY N/A 02/27/2019 Laterality: N/A; Surgeon: Raul Lott MD; Location: [facility] MAIN OR HERNIA REPAIR 02/27/2019 REPAIR HERNIA UMBILICAL OPEN W/ MESH N/A 05/09/2017 Laterality: N/A; Surgeon: CORNEL Elizondo; Location: [facility] MAIN OR KIDNEY TRANSPLANT W/O MORONGO NEPHRECTOMY N/A 09/25/2016 Laterality: N/A; Surgeon: Jose Shaw MD; Location: [facility] MAIN OR AL ARTHROSCOPY KNEE MENISCAL TRNSPLJ MED/LAT Right 11/12/2014 [...] Practitioner) Coordinator Transplant (Inactive) as PCP - Truck Driver Rubbish Collector Roberto Carlos Davey MD as Consulting Physician [...] & ECG findings with Anesthesiologist Dr. Dykes. [facility] 02-25-2024 History and physical note Images from the original note were not included. [facility] Date of Surgery: 03/23/2024 . Surgeon: Oscar Pre-Op Diagnosis: GERD without esophagitis. Planned Procedure: lap conversion of sleeve to gastric bypass, egd Anesthesia Type: planned for general anesthesia SUMMARY AND RECOMMENDATIONS Pending lab results from Outside Facility. Strict NPO Diet recommended. Zoie Heath is a 58 y.o. year old patient [...] denies a history of cardiac events or CA. Denies chest pain, palpitation or worsening SOB over the last few months ASSESSMENT AND PLAN- # Functional status - METS: Moderate: 4-7 METS functional status. 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 # Pre-operative Risk Evaluation: Patient Meets the Following RCRI Criteria (RCRI): None: 0 criteria suggesting a 3.9% risk of major cardiac events or within 30 days. Zoie Heath is at a Acceptable risk based on [...] and Cross -Preadmission URINALYSIS REFLEX TO CULTURE AL ECG, CLINIC PERFORMED Lab A/P - Lab Results Component Value Date SODIUM 135 02/25/2024 POTASSIUM 5.0 02/25/2024 CHLORIDE 102 02/25/2024 CO2 26 02/25/2024 BUN 45 (H) 02/25/2024 CREATSERUM 2.65 (H) 02/25/2024 GLUCOSE 95 02/25/2024 This CLOCK AND WATCH HANDS DIPPER called patient and notified him of abnormal lab results. Instructed patient to hold Chlorthalidone and Losartan for 2 days, increase water intake and that I will place orders for a repeat lab draw on 02/27/2024 at [facility] near patient's home. I asked patient to reach out to his Wash Box Operator, Dr. Davey at the OR in [place], [place] to regarding lab results. Abnormal results were [...] us to participate in the care of Zoie Heath. Note to patient: The Century Cures Act makes medical notes like these available to patients in the interest of transparency. However, be advised this is a medical document. It is intended as zmwv-zx-vtwq communication. It is written in medical language and may contain abbreviations or verbiage that are unfamiliar. It may appear blunt or direct. Medical documents are intended to carry relevant information, facts as evident, and the clinical opinion of the practitioner. Tow Choice dictation software may have been used to write this note. Please excuse any errors that may have occurred as a result of the dictation. Kelsey Lozano, CEMENTER HAND-MANAGER DISH [facility] [address] [facility] Review of Systems (OSUROS) Review of [...] also in the note above. [facility] Blood pressure 112/76, pulse 57, temperature 98.2 [...] Charley Mccracken MD, PhD; [facility] 2021 APPENDECTOMY LAPAROSCOPIC N/A 12/26/2019 Laterality: N/A; Surgeon: Rosy Lynn DO; Location: [facility] MAIN OR GASTRECTOMY LONGITUDINAL (SLEEVE) LAPAROSCOPIC N/A 08/10/2019 Laterality: N/A; Surgeon: Griselda Gallegos MD; Location: [facility] SAME DAY SURGERY MAIN OR EGD DIAGNOSTIC N/A 08/10/2019 Laterality: N/A; Surgeon: Griselda Gallegos MD; Location: [facility] SAME DAY SURGERY MAIN OR EGD DIAGNOSTIC N/A 04/24/2019 Laterality: N/A; Surgeon: Nahomy Santos MD; Location: [facility] ENDOSCOPY LAPAROTOMY EXPLORATORY N/A 02/27/2019 Laterality: N/A; Surgeon: Raul Lott MD; Location: [facility] MAIN OR HERNIA REPAIR 02/27/2019 REPAIR HERNIA UMBILICAL OPEN W/ MESH N/A 05/09/2017 Laterality: N/A; Surgeon: CORNEL Elizondo; Location: [facility] MAIN OR KIDNEY TRANSPLANT W/O MORONGO NEPHRECTOMY N/A 09/25/2016 Laterality: N/A; Surgeon: Jose Shaw MD; Location: [facility] MAIN OR AL ARTHROSCOPY KNEE MENISCAL TRNSPLJ MED/LAT Right 11/12/2014 [...] Practitioner) Coordinator Transplant (Inactive) as PCP - Truck Driver Rubbish Collector Roberto Carlos Davey MD as Consulting Physician [...] Dr. Dykes. documented in this encounter [facility] 02-25-2024 Instructions Della Purdy LPN - 02/25/2024 10:30 AM EDT PRIOR TO SURGERY INSTRUCTIONS Please follow these instructions prior to surgery to help us minimize delays and complications to your surgery THE FOLLOWING MEDICATIONS LABS, STUDIES, AND CONSULTATIONS WERE ORDERED TODAY: Orders Placed This Encounter CBC, EDIF, PLATELET COMPREHENSIVE METABOLIC PANEL Type and Cross -Preadmission AL ECG, CLINIC PERFORMED PREOPERATIVE MEDICATION INSTRUCTIONS Below are instructions for what to do with your medicines before your surgery/procedure. Take the medications marked take the morning of surgery/procedure with a sip of water. Please follow this table below for instructions on which medications to hold prior to surgery If you have a change in daily medications prior to surgery/procedure, call the [facility] at [phone]. Current Outpatient Medications Medication Sig Instructions: Alclometasone [...] as, but not limited to, fish oil ([place]-3), garlic, glucosamine -chondroitin, gingko, ginseng, probiotics, or [...] Do not wear artificial nails or nail austrian the day of surgery. Do NOT bring [...] site for 48 hours prior to surgery. [place] your teeth and rinse your mouth the [...] your scheduled surgery, please notify our team ([facility] clinic) and your surgeon's office. You may need to have your surgery moved, as we would not want to put you at risk for complications, You MUST arrange for a responsible adult to drive you to your procedure, stay for the surgery, listen to discharge instructions, and drive you home after surgery, otherwise your surgery may be cancelled. SURGERY LOCATIONS [facility] [address] [address] Parking: Engineering Test Mechanic or Safe Auto Garage Phone-Main [place] [phone]-Ask for the Surgery Department Please call for any questions, delay of arrival, cancellation, or illness on the day of surgery. [facility] [address] 1st Floor Surgery Center [place], [place] [address] Please call for any questions, delay of arrival, cancellation, or illness on the day of surgery. [facility] [address] [facility] [address] [place], [place] [address] Please call for any questions, delay of arrival, cancellation, or illness on the day of surgery. [facility] [address] [place], [place] [address] Please call for any questions, delay of arrival, cancellation, or illness on the day of surgery. PLEASE BRING YOUR MEDICATIONS WITH YOU IN THE ORIGINAL BOTTLES, ON THE DAY OF SURGERY. [facility] [address] [place] [address] Please call for any questions, delay of arrival, cancellation, or illness on the day of surgery. PLEASE BRING YOUR MEDICATIONS WITH YOU IN THE ORIGINAL BOTTLES, ON THE DAY OF SURGERY. [facility] [address] [place], [place] [address] Please call for any questions, delay of arrival, cancellation, or illness on the day of surgery. [facility] [address] [place], [place] [address] Please call for any questions, delay of arrival, cancellation, or illness on the day of surgery. OPAC Preoperative Testing Clinic [place] [phone] AVS/EEH documented in this encounter [facility] 02-20-2024 History of Present illness Narrative Pre-Operative Diet Education Met with Zoie who was referred by Dr. Griselda Gallegos [...] motivation to learn and/or adhere to recommendations Head Sugar Reprocess Operator resource utilized: No Spent 10 minutes with patient loao-py-sscd providing nutrition assessment and/or counseling/education Bina Sheets MS, RDN, LD documented in this encounter [facility] 02-20-2024 History of Present illness Narrative Surgeon [...] surgical consent 3 [x] 1. Introduced to [facility] Nursing Clinical Care Management and call [...] may also forward it on to a CLOCK AND WATCH HANDS DIPPER and or the surgeon, or dietitian, as appropriate. 4 [x] 1. Identified location of surgery as [address] with arrival location at the main hospital entrance at Registration. Advised: 2. Preregistration - The hospital will call to pre-register patients for surgery. For patients that have not been called within 2 days of the surgery date, they should call Preregistration at [phone] or [phone]. Patients with MYChart should log in to [...] hospital in case they don't like the [facility] provided shakes. 10 [x] 1. [...] within 1 month of surgery. 2. Offered [facility] resources as needed. [facility] accepts patients in attending clinic [...] on How to Use an Incentive Spirometer/Breathing Drafter Detail. [facility] Patient Education information sheet included in clinic pre-op bag. 2. Reviewed use of a pillow to splint the abdomen for coughing and deep breathing. 17 [x] Reinforced the importance of calling surgery procedural scheduling at [phone] for the development of any untoward symptoms such as a cold, new infection, etc. That might develop before surgery. A surgery may be cancelled up to and including the day of surgery for any pt with symptomatic contraindications to surgery. 18 [x] Advised to bring cell phone and fiberglass insulation installer on the day of surgery. (Patients can [...] Living Will and Health Care Power of Speech And Hearing Clinic Director forms (if you have them). G. Your cell phone and fiberglass insulation installer. Your phone will be used as a [...] visit within 2 weeks of discharge. [facility] MANAGER DISH will then see the patient at subsequent post-operative visits of 1 month, 2 months, 6 months, then annually. 2. Reviewed importance to be seen annually by a bariatric gas plant specialist and to have a nutritional lab [...] diet review and post op diet Subjective: Zoie Heath is a 58 y.o. obese male who [...] Bilateral; Surgeon: Charley Mccracken MD, PhD; Location: [facility] MAIN OR NEPHRECTOMY 2021 APPENDECTOMY LAPAROSCOPIC N/A 12/26/2019 Laterality: N/A; Surgeon: Rosy Lynn DO; Location: [facility] MAIN OR GASTRECTOMY LONGITUDINAL (SLEEVE) LAPAROSCOPIC N/A 08/10/2019 Laterality: N/A; Surgeon: Griselda Gallegos MD; Location: [facility] SAME DAY SURGERY MAIN OR EGD DIAGNOSTIC N/A 08/10/2019 Laterality: N/A; Surgeon: Griselda Gallegos MD; Location: [facility] SAME DAY SURGERY MAIN OR EGD DIAGNOSTIC N/A 04/24/2019 Laterality: N/A; Surgeon: Nahomy Santos MD; Location: [facility] ENDOSCOPY LAPAROTOMY EXPLORATORY N/A 02/27/2019 Laterality: N/A; Surgeon: Raul Lott MD; Location: [facility] MAIN OR HERNIA REPAIR 02/27/2019 REPAIR HERNIA UMBILICAL OPEN W/ MESH N/A 05/09/2017 Laterality: N/A; Surgeon: CORNEL Elizondo; Location: [facility] MAIN OR KIDNEY TRANSPLANT W/O MORONGO NEPHRECTOMY N/A 09/25/2016 Laterality: N/A; Surgeon: Jose Shaw MD; Location: [facility] MAIN OR AL ARTHROSCOPY KNEE MENISCAL TRNSPLJ MED/LAT Right 11/12/2014 [...] HGBA1C 5.6 11/20/2023 HGBA1C 5.0 10/16/2022 Assessment: Zoie Heath has clinically severe reflux and specifically desires a laparoscopic revision with a gastrojejunostomy and may-en-y reconstruction. Plan: Zoie Heath was informed of their options that included [...] consent was signed. He will see our radiotelegraph operator servicer prior to starting the 3 week liver [...] this visit: yes documented in this encounter [facility] 02-20-2024 Instructions Lidia Rosenthal - 02/20/2024 11:00 AM EDT BEFORE SURGERY: PRE-PROCEDURE PREPARATION (COMPAC) Date: 03/09/24 Call Time: 11:30 am Patients who are scheduled for a surgical or other procedure at [facility] may be required to complete a pre-operative [...] are completely informed about what to expect. [facility] PREOPERATIVE ASSESSMENT CENTER (OPAC) Date: 02/25/24 Arrival Time: 10:15 am Located at: [facility] [address] - 1st floor of the pavilion, [address] [place] [address] PLEASE REGISTER ON THE 1ST FLOOR PAVILION Please allow 2 hours for your OPAC [...] to discuss with the doctor or nurse [facility] doctors and staff are educators who teach [...] to surgery, please contact our office at [phone] Please note that this schedule is subject [...] you do [place] [address] [place] [address], Patient Admissions (1st room on the right) Office #: [phone] Fax #: [phone] CURRENT COVID VISITOR POLICY: These visitor policy [...] service home, an adult, other than the local hazmat driver, needs to ride with you for your safety. This person will also be responsible for communicating post-operative instructions to you. If you would like to sign up for text messages for [facility] appointment reminders text [facility] TO [phone]. You will receive a response within a [...] the hospital. Do not wear makeup, nail austrian or hair pins to the hospital. Please [...] a living will or durable power of vocational examiner, please bring a copy of the documents [...] your doctor s office. Driving Directions to [facility] From the North ([place], [place] and [place]) Take any major highway to [address] south to the Ozzy[employer] Provider Resource Holdingsnear exit Turn left onto [address] ([address] turns into [place] [address]card) Take [employer] Icard to [employer]ociety[employer] Inc[employer] Turn left onto [address] Turn left onto [address] Turn right onto [address] See Parking Directions - Continued From the South ([facility] and [place]) Take any major highway to [address] north to [address] to the [address] exit Turn right onto [address] Turn right onto [place] [address] Turn left to stay on [place] [address]card Turn left onto [address] Turn left onto [address] Turn right onto [address] See Parking Directions - Continued From the East ([place], [place] and [place]) Take any major highway to [address] to [address] north to the [address] exit Turn right onto [address] Turn right onto [place] [address] Turn left to stay on [place] [address] Turn left onto [address] Turn left onto [address] Turn right onto [address] See Parking Directions - Continued From the West ([place], [place] and [place]) Take any major highway to [address] to [address] to the the [address] exit Turn right onto [address] Turn right onto [place] [address] Turn left to stay on [place] [address] Turn left onto [address] Turn left onto [address] Turn right onto [address] See Parking Directions - Continued Parking Directions - Continued Patient Engineering Test Mechanic Continued: Take [address] past the intersection of [address] and [address]. Continue straight to the front of [facility] ([facility]). Pull into Patient Engineering Test Mechanic on your right. [employer] [facility] [address] [facility] [place] [address] Continued: From [address], turn left onto [facility]. The [employer] is located on the left and is connected to the medical center by a walkway bridge on the second fl oor. [address] [place] [address] Continued: Take [address] to [address] [...] ticket to any information desk in the [facility] to receive your discount ticket. Financial [...] prior to the procedure being performed. A healthcare sales representative from the [facility] will contact you to pre-register you for your services. If you have not received a call by two days prior to your procedure date, please call our Pre-Registration Department at [phone] or [phone]. By calling us in advance, your wait time will be reduced. Our trained representatives can assist you in discussing both your physician and hospital obligations. Are you a [employer] / Net[employer] user? If yes, you can log on and complete a pre-registration questionnaire. Study Manager: You are not eligible for Financial Assistance if you are entering the [facility] solely to seek medical treatment. We want to make sure all patients have access to quality healthcare services at [facility], and we are committed to working with [...] These options include helping you apply for: [place] Medicaid (if your income meets guidelines) The Affordable Care Act Insurance Exchange Program. Other federal/state assistance programs Or establish a payment plan Other Assistance: [facility] offers an additional sliding scale financial assistance [...] please contact the Financial Counseling Department at [phone] between 8 a.m. and 5 p.m. weekdays. A financial counselor can assist you with the application process. You will be screened for all potential programs. If you appear to be eligible for Medicaid, you will be assisted through the application process. As a Medicaid recipient, your physician fees and facility fees could be covered. Services not covered by [facility] financial assistance program: Physician Fees Transportation fees Dental Services Medically unnecessary services Prescriptions Durable Medical Equipment We Are 100% Tobacco-Free At [facility] [place], we care about the health of our patients, visitors and staff. That s why all of our locations - inside and outside - are 100% tobacco-free. We understand that nicotine is addictive, and we regret the inconvenience to tobacco users. However, as an academic medical center with leading cancer and heart hospitals, creating a healthy environment for everyone who attends, works and visits our Medical Center is important. documented in this encounter [facility] 01-15-2024 History of Present illness Narrative Nurse [...] possible weight loss surgery Patient seen TAMY suzanne Penn on 09/30/23. Patient's highest weight [...] second portion of the duodenum. - The BERGERNO pH capsule was deployed. - No specimens [...] to physical therapy documented in this encounter [facility] 01-15-2024 Instructions Rodrigo Saravia MD - [...] to physical therapy documented in this encounter [facility] 12-25-2023 History of Present illness Narrative This MA verified the patients name and date of . Zoie Heath is a 58 y.o. male who comes [...] that includes cholecystectomy (2004); shoulder surgery (Left, 2008); knee surgery (Left, 1992); hernia repair (Right, 01/08/2012); creation arteriovenous fistula w/ autogenous graft (Left, 2009); tonsillectomy; kidney transplant w/o king salmon nephrectomy (N/A, 09/25/2016); pr arthroscopy knee meniscal [...] 2. Ordering autotitrating CPAP. He will use [employer]. He understands that untreated DEMI is associated with heart failure, atrial fibrillation, strokes, HTN, and impaired glucose tolerance. 3. He should avoid respiratory suppressants as these can worsen sleep disordered breathing. 4. He should never drive if drowsy and should loop puller at a safe place if he [...] associated with improvement in sleep disordered breathing. Zoie Heath should exercise regularly and watch his diet. documented in this encounter [facility] 12-25-2023 Instructions Cait Richardson MD - 12/25/2023 8:30 AM EDT [employer] 4.7(216) Home health care service [address] DEMI Education: You have obstructive sleep [...] and become drowsy or sleepy, you should loop puller to a safe place. Below are our drowsy driving tips. PAP Machine Care: You should clean your PAP regularly (see your PAP field sales associate site for more details) Daily cleaning 1. [...] and exercise program that can be maintained assisted. The [facility] does have a Living Well Program to help patients achieve their weight loss goals in a healthy and safe manor. This consists of a 6 month program that focuses on weight loss, nutrition, stress management and exercise. https://[email or web address]/serena ght-management/weight-management- nonsurgical/living-well [facility] for Wellness and Prevention First floor of the [address] [address] For more information please call [phone]. documented in this encounter [facility] 12-04-2023 History of Present illness Narrative Nurse [...] possible weight loss surgery Patient seen TAMY suzanne Alexsurjit on 09/30/23. Patient's highest weight on 07/06/2019 [...] disease, diabetes, etc. documented in this encounter [facility] 12-04-2023 Instructions Rodrigo Saravia MD - [...] disease, diabetes, etc. documented in this encounter [facility] 12-04-2023 Procedure note Associated Ord er(s): EAR CERUMEN REMOVAL Post-Procedure Diagnose(s): Right ear impacted cerumen EAR CERUMEN REMOVAL Date/Time: 12/04/2023 11:00 AM Performed by: Rodrigo Saravia MD Authorized by: Rodrigo Saravia MD Procedure: Visualization: otoscopy Impaction noted: yes Location details: Right ear Procedure type: curette Patient tolerance: Tolerated well, no immediate complications [facility] 12-04-2023 Procedure note Associated Ord er(s): EAR CERUMEN REMOVAL Post-Procedure Diagnose(s): Right ear impacted cerumen EAR CERUMEN REMOVAL Date/Time: 12/04/2023 11:00 AM Performed by: Rodrigo Saravia MD Authorized by: Rodrigo Saravia MD Procedure: Visualization: otoscopy Impaction noted: yes Location details: Right ear Procedure type: curette Patient tolerance: Tolerated well, no immediate complications documented in this encounter [facility] 11-15-2023 History of Present illness Narrative Encounter for [facility] Home Sleep Apnea Test Patient has completed home sleep testing through [facility]. The data has been reviewed and sent to the interpreting physician. documented in this encounter [facility] 11-15-2023 History of Present illness Narrative [facility] Patient has completed home sleep testing through [facility]. The data has been reviewed and sent to the interpreting physician. documented in this encounter [facility] 11-08-2023 History of Present illness Narrative Images [...] Sleep Medicine Director, Sleep Disorders Center [facility] FAX: [phone] Email: [email or web address] documented in this encounter [facility] 09-30-2023 History of Present illness Narrative Presents [...] Yes [] No, Provided Website to review: [email or web address] 3. Is interested in the: [] Sleeve [...] Screening Assessment completed [x] Yes [] No CLOCK AND WATCH HANDS DIPPER vs MD Visit General Visit Information: Reinforced instruction on the following as needed: 1. Pt instructed to consider self as an applicant for surgery. Pt will become a candidate for surgery when all initial Providers (CLOCK AND WATCH HANDS DIPPER/RD/Psychologist) have approved the patient to move forward. 2. Notified that all bariatric surgeries are elective. Instructed that will see either medical claims processor or CEMENTER HAND-MANAGER DISH today. Currently, RD and Psychologist may both be completed remotely for initial evaluation of surgical requirements if not already completed. 3. Will see Surgeon MD at a pre-operative visit after completing surgery requirements. 4. Expect that a Financial Public Policy Associate will be in contact within the next 2 weeks and will assist with insurance requirements and programming navigation. The coordinator will follow the pt from the point of contact through surgical approval and scheduling. 5. Testing plan: If a Lab draw is requested today, it will be completed in the [facility] lab. An EKG will be done in the [place] here on site. Done if none has been completed within the last 6 months, or if otherwise indicated. Call Center Instruction: 1. There are no direct department calls. When calling the office ([phone]), the Call Center staff will notify the appropriate parties. 2. Encouraged the use of MY Chart and assisted with set up as needed. 3. Instructed and demonstrated as needed: sign up for [facility] [phone] text message appointment reminders as applicable. 4. Reminded that the clinic office is open for calls M-F between 8:00am and 3:30pm. There is a Bariatric Surgery resident instruction dean after this at [phone] Pt has 24 hour 7 days per week access to assistance. Assigned Clinic RN Instruction: An assigned clinic nurse will follow pt care along with today's Provider as of this date and throughout pre and postoperative care. A nurse is generally the initial person to receive the MY Chart and Call Center messages for the physicians and CLOCK AND WATCH HANDS DIPPER's. These messages are triaged and answered by the nurse and forwarded on to a Provider as needed. Lab review process 1. Pt may see testing results in MYCHART. In general, pts will receive a call, [place] LocksmithHART message, or letter from the Provider after [...] have the order placed. Language Preference [x] Argentine [] Other: Badge Number of Head Sugar Reprocess Operator: Orientation [x] Oriented to room and space [...] sign our bariatric surgery patient agreement. PCP: eGovanna Miranda Reviewed weight history, goals, desired surgery, occupation & post operative support Goal weight/Surgery goals: to resolve GERD/severe reflux; weight goal 180 - 185 lbs. Weight issues date back to: early adult years - after leaving the [place] & they have tried the following to lose weight: bariatric surgery (sleeve). phentermine (Adipex/Lomaira) - limited in dosing due to kidney disease / s/p renal transplant; couldn't use top or Well due to renal fxn. 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 Social [...] [] Insurance/Program Requirements per our Program Financial Public Policy Associate. All patients will be checked for nicotine/cotinine [...] surgery increases risk for stricture and ulcer. [facility]'s Bariatric Surgery website is here: [email or web address] [email or web address]/[place]rena ght-management/bariatric-surgery Link to watch [facility] Bariatric Surgery info session is here: [email or web address] Link to watch Dr. Santos's interview with a patient is here: [email or web address] Phone numbers for scheduling [facility] [phone]. [facility] (pulmonary consult, sleep studies, sleep consult): [phone]. EGD [phone], option 2. Comprehensive Weight Management Nurse Practitioner, Dietitian, Psychologist or Cattle Alley Worker appointments: [phone]. Liza Penn APRN-TMAY, with surgeons Griselda Gallegos, Maikel Frank, Schuyler Sparks, Danny Ireland, & [...] scanned into IHIS. documented in this encounter [facility] 2023 Nurse Surgical operation note MD armando to HELADIO. IV removed. DC teaching reviewed. Pt declines help getting dressed. Family present. [facility] 2023 Nurse Note MD tr tabares DC. IV removed. DC teaching reviewed. Pt declines help getting dressed. Family present. documented in this encounter [facility] 2023 Nurse Note Sedation vitals and monitoring provided by anesthesia. [facility] 2023 Miscellaneous Notes Sedation vitals and monitoring [...] recorder via UPS. documented in this encounter [facility] 2023 History and physical note ENDOSCOPIC PREPROCEDURE HISTORY AND PHYSICAL HISTORY OF PRESENT ILLNESS: Zoie Heath is a 58 y.o. male seen in the pre-procedure area at [facility] ENDOSCOPY. The indication for endoscopic evaluation [...] Bilateral; Surgeon: Charley Mccracken MD, PhD; Location: [facility] MAIN OR NEPHRECTOMY 2021 APPENDECTOMY LAPAROSCOPIC N/A 12/26/2019 Laterality: N/A; Surgeon: Rosy Lynn DO; Location: [facility] MAIN OR GASTRECTOMY LONGITUDINAL (SLEEVE) LAPAROSCOPIC N/A 08/10/2019 Laterality: N/A; Surgeon: Griselda Gallegos MD; Location: [facility] SAME DAY SURGERY MAIN OR EGD DIAGNOSTIC N/A 08/10/2019 Laterality: N/A; Surgeon: Griselda Gallegos MD; Location: [facility] SAME DAY SURGERY MAIN OR EGD DIAGNOSTIC N/A 04/24/2019 Laterality: N/A; Surgeon: Nahomy Santos MD; Location: [facility] ENDOSCOPY LAPAROTOMY EXPLORATORY N/A 02/27/2019 Laterality: N/A; Surgeon: Raul Lott MD; Location: [facility] MAIN OR HERNIA REPAIR 02/27/2019 REPAIR HERNIA UMBILICAL OPEN W/ MESH N/A 05/09/2017 Laterality: N/A; Surgeon: CORNEL Elizondo; Location: [facility] MAIN OR KIDNEY TRANSPLANT W/O MORONGO NEPHRECTOMY N/A 09/25/2016 Laterality: N/A; Surgeon: Jose Shaw MD; Location: [facility] MAIN OR AL KNEE SCOPE, MENISC TRANSPLANT Right 11/12/2014 right [...] using Monitored Anesthesia Care. Schuyler Sparks MD [facility] Work Phone: 2023 History and physical note ENDOSCOPIC PREPROCEDURE HISTORY AND PHYSICAL HISTORY OF PRESENT ILLNESS: Zoie Heath is a 58 y.o. male seen in the pre-procedure area at [facility] ENDOSCOPY. The indication for endoscopic evaluation [...] Bilateral; Surgeon: Charley Mccracken MD, PhD; Location: [facility] MAIN OR NEPHRECTOMY 2021 APPENDECTOMY LAPAROSCOPIC N/A 12/26/2019 Laterality: N/A; Surgeon: Rosy Lynn DO; Location: [facility] MAIN OR GASTRECTOMY LONGITUDINAL (SLEEVE) LAPAROSCOPIC N/A 08/10/2019 Laterality: N/A; Surgeon: Griselda Gallegos MD; Location: [facility] SAME DAY SURGERY MAIN OR EGD DIAGNOSTIC N/A 08/10/2019 Laterality: N/A; Surgeon: Griselda Gallegos MD; Location: [facility] SAME DAY SURGERY MAIN OR EGD DIAGNOSTIC N/A 04/24/2019 Laterality: N/A; Surgeon: Nahomy Santos MD; Location: [facility] ENDOSCOPY LAPAROTOMY EXPLORATORY N/A 02/27/2019 Laterality: N/A; Surgeon: Raul Lott MD; Location: [facility] MAIN OR HERNIA REPAIR 02/27/2019 REPAIR HERNIA UMBILICAL OPEN W/ MESH N/A 05/09/2017 Laterality: N/A; Surgeon: CORNEL Elizondo; Location: [facility] MAIN OR KIDNEY TRANSPLANT W/O MORONGO NEPHRECTOMY N/A 09/25/2016 Laterality: N/A; Surgeon: Jose Shaw MD; Location: [facility] MAIN OR AL KNEE SCOPE, MENISC TRANSPLANT Right 11/12/2014 right [...] Schuyler Sparks MD documented in this encounter [facility] 2023 Nurse Note Bergeron teaching done with pt. He has been off of PPI x 1 week and has no stated nickel allergy. Pt states his worst symptoms are reflux and heartburn. He was taught how to record these, plus meals and sleep. Pt voices understanding. Box was given to return recorder via [employer]. [facility] 05-28-2023 History of Present illness Narrative [...] MD, in the presence of a medical parts counter sales person. [x] A full body skin exam was [...] Neoplasm of uncertain behavior of skin D48.5 AL SHAV SKIN LES 0.6-1CM TRUNK,ARM,LEG SURG PATH [...] , served as a scribe and medical parts counter sales person for this exam/procedure on 05/28/2023 This exam/procedure was conducted by Aliza Davis MD in the presence of a medical parts counter sales person I have reviewed this documentation scribed above and it is accurate as of 05/28/2023 12:25 PM Aliza Davis MD Surface Water Manager Division of Dermatology [facility] documented in this encounter [facility] 05-28-2023 Instructions Sarah Guerra - 05/28/2023 [...] oxide). Some that I recommend include: - Burmese Gold Botanical Mineral Sunscreen - SPF 30 [...] within fourteen days. Results are autoreleased on echoecho before being reviewed by the physician. Please [...] pressure on the wound and call your supervisor steel division or go to your local emergency room. Pain: Local anesthesia will wear off in approximately 1-3 hours. The area may burn, throb, feel tender or sore but should NOT be excruciatingly painful. If your wound hurts, take Tylenol or Extra-Strength Tylenol (acetaminophen) as directed on bottle, as needed. If Tylenol does not control the pain, alternate between Tylenol and Ibuprofen Call your supervisor steel division for pain not controlled by Tylenol and [...] removed (over the counter) Who to call [facility] Dermatology at for problems Saturday through Saturday in the morning or afternoon. For Urgent problems in the evenings or after hours, call the hospital tape keller operator at and ask for the Boiler Fireman instruction dean. TEST RESULTS: We will make every effort to communicate your biopsy test results within ten business days. Certain results may take longer, but are usually received within fourteen days. Results are autoreleased on ENJOREhart before being reviewed by the physician. Please allow 3 business days after results are released for the physician to review results and determine management. Your results will be communicated to you in one of three ways; Mailed to you Plan B FundingharGuides[employer]ob Message Reviewed with you over the phone If you have any questions about your visit today or your tests, please call us at [phone] Option 4. Please wait 14 days prior to calling for test results This flipbook was created as a guide to Mohs micrographic surgery, but it has helpful information about healing towards the end. documented in this encounter [facility] 04-22-2023 History of Present illness Narrative Date [...] his ankle. He was seen in the [place] [facility] on March 11, 2023, a [...] Bilateral; Surgeon: Charley Mccracken MD, PhD; Location: [facility] MAIN OR NEPHRECTOMY 2021 APPENDECTOMY LAPAROSCOPIC N/A 12/26/2019 Laterality: N/A; Surgeon: Rosy Lynn DO; Location: [facility] MAIN OR GASTRECTOMY LONGITUDINAL (SLEEVE) LAPAROSCOPIC N/A 08/10/2019 Laterality: N/A; Surgeon: Griselda Gallegos MD; Location: [facility] SAME DAY SURGERY MAIN OR EGD DIAGNOSTIC N/A 08/10/2019 Laterality: N/A; Surgeon: Griselda Gallegos MD; Location: [facility] SAME DAY SURGERY MAIN OR EGD DIAGNOSTIC N/A 04/24/2019 Laterality: N/A; Surgeon: Nahomy Santos MD; Location: [facility] ENDOSCOPY LAPAROTOMY EXPLORATORY N/A 02/27/2019 Laterality: N/A; Surgeon: Raul Lott MD; Location: [facility] MAIN OR HERNIA REPAIR 02/27/2019 REPAIR HERNIA UMBILICAL OPEN W/ MESH N/A 05/09/2017 Laterality: N/A; Surgeon: CORNEL Elizondo; Location: [facility] MAIN OR KIDNEY TRANSPLANT W/O MORONGO NEPHRECTOMY N/A 09/25/2016 Laterality: N/A; Surgeon: Jose Shaw MD; Location: [facility] MAIN OR AL KNEE SCOPE, MENISC TRANSPLANT Right 11/12/2014 right [...] as tolerated and he does physical therapy. (DOC:[id number]) Review of Systems Constitutional: Negative for chills, [...] diabetic *No dentures/partials documented in this encounter [facility] 04-16-2023 History of Present illness Narrative [...] elevation to help. documented in this encounter [facility] 03-11-2023 Emergency department Note Pts right foot wrapped in an michael bandage. Pt verbalized understanding of DC instructions. He denied any further complaints and ambulated out of er [facility] 03-11-2023 Emergency department Note Pts right foot wrapped in an michael bandage. Pt verbalized understanding of DC instructions. He denied any further complaints and ambulated out of er Emergency Department Report [facility] EMERGENCY MEDICINE Service Date:.03/11/23 PCP: Geovanna Miranda Chief Complaint: Chief Complaint Patient presents with Foot Pain Fell and injured inside of right foot at 1530 today. Denies taking any medication wire brush maker. HPI Zoie Heath is a 57 y.o. [...] Bilateral; Surgeon: Charley Mccracken MD, PhD; Location: [facility] MAIN OR NEPHRECTOMY 2021 APPENDECTOMY LAPAROSCOPIC N/A 12/26/2019 Laterality: N/A; Surgeon: Rosy Lynn DO; Location: [facility] MAIN OR GASTRECTOMY LONGITUDINAL (SLEEVE) LAPAROSCOPIC N/A 08/10/2019 Laterality: N/A; Surgeon: Griselda Gallegos MD; Location: [facility] SAME DAY SURGERY MAIN OR EGD DIAGNOSTIC N/A 08/10/2019 Laterality: N/A; Surgeon: Griselda Gallegos MD; Location: [facility] SAME DAY SURGERY MAIN OR EGD DIAGNOSTIC N/A 04/24/2019 Laterality: N/A; Surgeon: Nahomy Santos MD; Location: [facility] ENDOSCOPY LAPAROTOMY EXPLORATORY N/A 02/27/2019 Laterality: N/A; Surgeon: Raul Lott MD; Location: [facility] MAIN OR HERNIA REPAIR 02/27/2019 REPAIR HERNIA UMBILICAL OPEN W/ MESH N/A 05/09/2017 Laterality: N/A; Surgeon: CORNEL Elizondo; Location: [facility] MAIN OR KIDNEY TRANSPLANT W/O MORONGO NEPHRECTOMY N/A 09/25/2016 Laterality: N/A; Surgeon: Jose Shaw MD; Location: [facility] MAIN OR AL KNEE SCOPE, MENISC TRANSPLANT Right 11/12/2014 right [...] pack to area. documented in this encounter [facility] 03-11-2023 Hospital Discharge instructions Ilia Shaffer [...] through Care Everywhere.Pain and Pain Control ([facility]) ([place])Ankle Sprain ([place])Ankle Sprain: Rehab Exercises ([place])RICE: General Info ([place])documented in this encounter [facility] 03-10-2023 Physician Emergency department Note Emergency Department Report [facility] EMERGENCY MEDICINE Service Date:.03/11/23 PCP: Geovanna Miranda Chief Complaint: Chief Complaint Patient presents with Foot Pain Fell and injured inside of right foot at 1530 today. Denies taking any medication wire brush maker. HPI Zoie Heath is a 57 y.o. [...] Bilateral; Surgeon: Charley Mccracken MD, PhD; Location: [facility] MAIN OR NEPHRECTOMY 2021 APPENDECTOMY LAPAROSCOPIC N/A 12/26/2019 Laterality: N/A; Surgeon: Rosy Lynn DO; Location: [facility] MAIN OR GASTRECTOMY LONGITUDINAL (SLEEVE) LAPAROSCOPIC N/A 08/10/2019 Laterality: N/A; Surgeon: Griselda Gallegos MD; Location: [facility] SAME DAY SURGERY MAIN OR EGD DIAGNOSTIC N/A 08/10/2019 Laterality: N/A; Surgeon: Griselda Gallegos MD; Location: [facility] SAME DAY SURGERY MAIN OR EGD DIAGNOSTIC N/A 04/24/2019 Laterality: N/A; Surgeon: Nahomy Santos MD; Location: [facility] ENDOSCOPY LAPAROTOMY EXPLORATORY N/A 02/27/2019 Laterality: N/A; Surgeon: Raul Lott MD; Location: [facility] MAIN OR HERNIA REPAIR 02/27/2019 REPAIR HERNIA UMBILICAL OPEN W/ MESH N/A 05/09/2017 Laterality: N/A; Surgeon: CORNEL Elizondo; Location: [facility] MAIN OR KIDNEY TRANSPLANT W/O MORONGO NEPHRECTOMY N/A 09/25/2016 Laterality: N/A; Surgeon: Jose Shaw MD; Location: [facility] MAIN OR AL KNEE SCOPE, MENISC TRANSPLANT Right 11/12/2014 right [...] . . Ilia Shaffer MD 03/11/23 0022 [facility] 03-10-2023 Emergency department Note Has rt inner foot/ankle pain. + Rt pedal pulse, moves toes easily. Fresh Ice pack to area. [facility] 12-10-2022 History of Present illness Narrative [...] time of visit. Continue following with Geovanna Miranda to discuss preventive health recommendations. 3. [...] service. 28 minutes documented in this encounter [facility] 10-29-2022 History of Present illness Narrative History of Present Illness Dog Bite Onset: Saturday. Bite by own dog (age 14), up [...] if s/sx persist/worsen. documented in this encounter [facility] 10-26-2022 History of Present illness Narrative Images from the original note were not included. Patient Name: [facility] Location: Zoie Heath [facility] [place] [address] Date Of : Date Of Visit: 1965 10/26/2022 MRN# Provider: [id number] Mary Moreira PA-C Chief Complaint Patient presents [...] dog that he knew. He presented to [facility] ED in [place]. The ED provider sutured a wound between [...] for this visit. documented in this encounter [facility] 10-24-2022 Emergency department Note Triple antibiotic ointment applied to laceration post suture. Non-stick dressing applied and wrapped with kerlix [facility] 10-24-2022 Emergency department Note Triple antibiotic ointment applied to laceration post suture. Non-stick dressing applied and wrapped with kerlix Cleansed laceration with hibiclens and sterile water, bleeding controlled. Emergency Department Report [facility] EMERGENCY MEDICINE Service Date:.10/24/22 PCP: Geovanna Miranda Chief Complaint: No chief complaint on file. HPI Zoie Heaht is a 57 y.o. male presents to [...] Charley Mccracken MD, PhD; Location: [facility] MAIN OR APPENDECTOMY LAPAROSCOPIC N/A 12/26/2019 Laterality: [...] Location: [facility] MAIN OR KIDNEY TRANSPLANT W/O MORONGO NEPHRECTOMY N/A 09/25/2016 Laterality: N/A; Surgeon: Jose Shaw MD; Location: [facility] MAIN OR AL KNEE SCOPE, MENISC TRANSPLANT Right 11/12/2014 right [...] follow up in Aug 2021. Scheduling phone [phone] CAPSULE Take [...] MD 10/24/22 0731 documented in this encounter [facility] 10-24-2022 Emergency department Note Cleansed laceration with hibiclens and sterile water, bleeding controlled. [facility] 10-24-2022 Physician Emergency department Note Emergency Department Report [facility] EMERGENCY MEDICINE Service Date:.10/24/22 PCP: Geovanna Miranda Chief Complaint: No chief complaint on [...] Charley Mccracken MD, PhD; Location: [facility] MAIN OR APPENDECTOMY LAPAROSCOPIC N/A 12/26/2019 Laterality: [...] Location: [facility] MAIN OR KIDNEY TRANSPLANT W/O MORONGO NEPHRECTOMY N/A 09/25/2016 Laterality: N/A; Surgeon: Jose Shaw MD; Location: [facility] MAIN OR AL KNEE SCOPE, MENISC TRANSPLANT Right 11/12/2014 right [...] follow up in Aug 2021. Scheduling phone [phone] [address]MEPRAZ[address]LE [address] CAPSULE Take [...] information. . Maico Hernadez MD 10/24/22 0731 [employer] [facility] [employer] Work Phone: 09-03-2022 Note Addended by: ANDREW BINGHAM on: 09/03/2022 09:41 AM Modules accepted: Orders [facility] 09-03-2022 Miscellaneous Notes Addended by: ANDREW MCDUFFIE on: 09/03/2022 09:41 AM Modules accepted: Orders documented in this encounter [facility] 09-02-2022 Instructions Jayshree Vilchis CNP - 09/02/2022 1:23 PM EST Plan: Zithromax and Polytrim as prescribed. Call your background check coordinator nurse today to notify of the [...] attachments cannot be sent through Care Everywhere.Conjunctivitis ([place])Taking Care of [place] at Home: Video ([place])Here's Help: How to Give Yourself Eyedrops or Eye Ointment: Video ([place])Sinusitis ([place])documented in this encounter [facility] 09-02-2022 Instructions Jayshree Vilchis CNP - 09/02/2022 1:23 PM EST Plan: Zithromax and Polytrim as prescribed. Call your background check coordinator nurse today to notify of the [...] attachments cannot be sent through Care Everywhere.Conjunctivitis ([place])Taking Care of [place] at Home: Video ([place])Here's Help: How to Give Yourself Eyedrops or Eye Ointment: Video ([place])Sinusitis ([place])documented in this encounter [facility] 09-02-2022 History of Present illness Narrative Images from the original note were not included. Patient Name: [facility] Location: Zoie Hdez[address] Date Of : Date Of Visit: 1965 09/02/2022 MRN# Provider: [id number] Jayshree Vilchis CNP Chief Complaint Patient presents [...] Zithromax and Polytrim as prescribed. Call your background check coordinator nurse today to notify of the [...] Zithromax and Polytrim as prescribed. Call your background check coordinator nurse today to notify of the new medications you are taking and inquire if any additional lab work is necessary. Make a follow up appointment with your primary care provider within 7 days for recheck. If symptoms worsen, change, or new symptoms develop go instead immediately to the nearest emergency room for further evaluation and treatment. documented in this encounter [facility] 09-02-2022 History of Present illness Narrative Images from the original note were not included. Patient Name: [facility] Location: Zoie Heath [address] [place] [id number] Date Of : Date Of Visit: 1965 09/02/2022 MRN# Provider: [id number] Jayshree Vilchis CNP Chief Complaint Patient presents [...] Zithromax and Polytrim as prescribed. Call your background check coordinator nurse today to notify of the [...] Zithromax and Polytrim as prescribed. Call your background check coordinator nurse today to notify of the new medications you are taking and inquire if any additional lab work is necessary. Make a follow up appointment with your primary care provider within 7 days for recheck. If symptoms worsen, change, or new symptoms develop go instead immediately to the nearest emergency room for further evaluation and treatment. documented in this encounter [facility] 08-30-2022 Instructions Jayshree Vilchis CNP - [...] evaluation and treatment. documented in this encounter [facility] 08-30-2022 History of Present illness Narrative Images from the original note were not included. Patient Name: [facility] Location: Zoie Heath [address] [facility] [id number] Date Of : Date Of Visit: 1965 08/30/2022 MRN# Provider: [id number] Jayshree Vilchis CNP Chief Complaint Patient presents [...] evaluation and treatment. documented in this encounter [facility] 04-21-2022 Emergency department Note Patient presented discharge instructions and education to follow up with an roller skate assembler and picker and sorter load and unload medications from the pharmacy. Patient left this ED ambulatory with a steady gait and even respirations. [facility] 04-21-2022 Emergency department Note Patient presented discharge instructions and education to follow up with an roller skate assembler and picker and sorter load and unload medications from the pharmacy. Patient left this ED ambulatory with a steady gait and even respirations. Patient's vision assessed. 20/50 with both eyes. But unable to see anything with affected eye. He did state that he wears bifocals normally and has terrible vision. Dr. Archuleta aware of his baseline vision. EMERGENCY DEPARTMENT REPORT [facility] SERV[facility] DATE: 04/21/22 PCP: Geovanna Miranda CHIEF COMPLAINT: Right eye redness Chief [...] to the emergency department or see an steaming cabinet tender. Patient wears contacts. REVIEW OF SYSTEMS: As [...] Bilateral; Surgeon: Charley Mccracken MD, PhD; Location: [facility] MAIN OR APPENDECTOMY LAPAROSCOPIC N/A 12/26/2019 Laterality: N/A; Surgeon: Rosy Lynn DO; Location: [facility] MAIN OR GASTRECTOMY LONGITUDINAL (SLEEVE) LAPAROSCOPIC N/A 08/10/2019 Laterality: N/A; Surgeon: Griselda Gallegos MD; Location: [facility] SAME DAY SURGERY MAIN OR EGD DIAGNOSTIC N/A 08/10/2019 Laterality: N/A; Surgeon: Griselda Gallegos MD; Location: [facility] SAME DAY SURGERY MAIN OR EGD DIAGNOSTIC N/A 04/24/2019 Laterality: N/A; Surgeon: Nahomy Santos MD; Location: [facility] ENDOSCOPY LAPAROTOMY EXPLORATORY N/A 02/27/2019 Laterality: N/A; Surgeon: Raul Lott MD; Location: [facility] MAIN OR HERNIA REPAIR 02/27/2019 REPAIR HERNIA UMBILICAL OPEN W/ MESH N/A 05/09/2017 Laterality: N/A; Surgeon: CORNEL Elizondo; Location: [facility] MAIN OR KIDNEY TRANSPLANT W/O MORONGO NEPHRECTOMY N/A 09/25/2016 Laterality: N/A; Surgeon: Jose Shaw MD; Location: [facility] MAIN OR AL KNEE SCOPE, MENISC TRANSPLANT Right 11/12/2014 right [...] follow up in Aug 2021. Scheduling phone [phone] ROPINIROLE 0.5 MG TABLET Take 0.5 mg [...] Portions of this chart were created using [employer] electronic dictation. Please excuse any typographical or grammatical errors contained herein. Raheem Archuleta MD 04/21/22 1120 TO Ed with c/o right eye redness. Denies pain, itching, FB sensation, and injury. Saw urgent care tomorrow and was advised to seek emergent treatment and possible steaming cabinet tender eval. documented in this encounter [facility] 04-21-2022 Hospital Discharge instructions Raheem Archuleta MD - 04/21/2022 11:12 AM EDT You will need to see an eye doctor [place]. The following attachments cannot be sent through Care Everywhere.Iritis ([place])documented in this encounter [facility] 04-21-2022 Emergency department Note Patient's vision assessed. 20/50 with both eyes. But unable to see anything with affected eye. He did state that he wears bifocals normally and has terrible vision. Dr. Archuleta aware of his baseline vision. [facility] 04-21-2022 Physician Emergency department Note EMERGENCY DEPARTMENT REPORT [facility] EMERGENCY MEDICINE SERVICE DATE: 04/21/22 PCP: Geovanna Miranda CHIEF COMPLAINT: Right eye redness Chief Complaint Patient presents with Eye Problem Right eye redness x2 days, denies injury and pain HPI: Zoie Haeth is a 56 y.o. male who presents with complaint of right eye redness. Onset of redness the previous day. No change in vision. Patient reports no associated pain at this time. Patient reports course to be improving. Patient was evaluated in the urgent care setting the previous day. Patient was informed to present to the emergency department or see an steaming cabinet tender. Patient wears contacts. REVIEW OF SYSTEMS: As [...] Bilateral; Surgeon: Charley Mccracken MD, PhD; Location: [facility] MAIN OR APPENDECTOMY LAPAROSCOPIC N/A 12/26/2019 Laterality: N/A; Surgeon: Rosy Lynn DO; Location: [facility] MAIN OR GASTRECTOMY LONGITUDINAL (SLEEVE) LAPAROSCOPIC N/A 08/10/2019 Laterality: N/A; Surgeon: Griselda Gallegos MD; Location: [facility] SAME DAY SURGERY MAIN OR EGD DIAGNOSTIC N/A 08/10/2019 Laterality: N/A; Surgeon: Griselda Gallegos MD; Location: [facility] SAME DAY SURGERY MAIN OR EGD DIAGNOSTIC N/A 04/24/2019 Laterality: N/A; Surgeon: Nahomy Santos MD; Location: [facility] ENDOSCOPY LAPAROTOMY EXPLORATORY N/A 02/27/2019 Laterality: N/A; Surgeon: Raul Lott MD; Location: [facility] MAIN OR HERNIA REPAIR 02/27/2019 REPAIR HERNIA UMBILICAL OPEN W/ MESH N/A 05/09/2017 Laterality: N/A; Surgeon: CORNEL Elizondo; Location: [facility] MAIN OR KIDNEY TRANSPLANT W/O MORONGO NEPHRECTOMY N/A 09/25/2016 Laterality: N/A; Surgeon: Jose Shaw MD; Location: [facility] MAIN OR AL KNEE SCOPE, MENISC TRANSPLANT Right 11/12/2014 right [...] follow up in Aug 2021. Scheduling phone [phone] ROPINIROLE 0.5 MG TABLET Take 0.5 mg [...] Portions of this chart were created using [employer] electronic dictation. Please excuse any typographical or grammatical errors contained herein. Raheem Archuleta MD 04/21/22 1120 [facility] 04-21-2022 Emergency department Note TO Ed with c/o right eye redness. Denies pain, itching, FB sensation, and injury. Saw urgent care tomorrow and was advised to seek emergent treatment and possible steaming cabinet tender eval. [facility] 03-02-2022 History of Present illness Narrative [...] resolution with tx. documented in this encounter [facility] 01-08-2022 Instructions REYES Shook - 01/08/2022 [...] sooner if needed. documented in this encounter [facility] 01-08-2022 History of Present illness Narrative History of Present Illness Erectile Dysfunction There is a complaint of erectile problems. Onset of problem was the beginning of the year and is described as cant last (will obtain erection, however, this will not last and then, at times, unable to even obtain an erection, also, dont get the urge to want to have sex. picker and sorter load and unload erections - Yes: will awaken with one [...] and feels like medication is effective. EDWARDO Zoie presents to the office today for [...] take second does with Prilosec. Allergies Zoie Heath presents for follow up for allergies. Eyes [...] sooner if needed. documented in this encounter [facility] 01-04-2022 History and physical note History of Present Illness Mr. Heath is a 56 y.o. male is being evaluated in [facility] due to his medical condition(s) S/p gastric bypass - 2019 Hypertension- stable on medication Kidney transplant 2016 - history of polycystic kidney disease GERD- stable on medication DEMI on CPAP- resolved since wt loss which increases his risk for perioperative complications. Name: Zoie Heath Date of Surgery: 01/23/2022 Surgeon: Kaykay Pre-Op Diagnosis: chronic pain due to king salmon kidney - polycystic kidney disease Planned Procedure: EXAM UNDER ANESTHESIA, OPEN BILATERAL MORONGO NEPHRECTOMY Do you take Aspirin? Yes, prevenative [...] Staff Patient location during procedure: OR Room: [facility] Attending: Danny Mina MD Performed by: [...] Placed This Encounter Type and Cross -Preadmission AL ECG, CLINIC PERFORMED Lab A/P - Labs [...] ASA 3 or more DO Jono Cano [facility] Perioperative Clinic The [address] Review of Systems Review of Systems Constitutional: [...] Laterality: N/A; Surgeon: Rosy Lynn DO; Location: [facility] MAIN OR GASTRECTOMY LONGITUDINAL (SLEEVE) LAPAROSCOPIC N/A 08/10/2019 Laterality: N/A; Surgeon: Griselda Gallegos MD; Location: [facility] SAME DAY SURGERY MAIN OR EGD DIAGNOSTIC N/A 08/10/2019 Laterality: N/A; Surgeon: Griselda Gallegos MD; Location: [facility] SAME DAY SURGERY MAIN OR EGD DIAGNOSTIC N/A 04/24/2019 Laterality: N/A; Surgeon: Nahomy Santos MD; Location: [facility] ENDOSCOPY LAPAROTOMY EXPLORATORY N/A 02/27/2019 Laterality: N/A; Surgeon: Raul Lott MD; Location: [facility] MAIN OR HERNIA REPAIR 02/27/2019 REPAIR HERNIA UMBILICAL OPEN W/ MESH N/A 05/09/2017 Laterality: N/A; Surgeon: CORNEL Elizondo; Location: [facility] MAIN OR KIDNEY TRANSPLANT W/O MORONGO NEPHRECTOMY N/A 09/25/2016 Laterality: N/A; Surgeon: Jose Shaw MD; Location: [facility] MAIN OR AL KNEE SCOPE, MENISC TRANSPLANT Right 11/12/2014 right [...] LACTIFEROUS DUCT TONSILLECTOMY Patient Care Team: Geovanna Miranda APRN-TAMY as PCP - General (Nurse Practitioner - Family) Coordinator Transplant (Inactive) as 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 01-04-2022 History and physical note History of Present Illness Mr. Heath is a 56 y.o. male is being evaluated in [facility] due to his medical condition(s) S/p gastric bypass - 2019 Hypertension- stable on medication Kidney transplant 2016 - history of polycystic kidney disease GERD- stable on medication DEMI on CPAP- resolved since wt loss which increases his risk for perioperative complications. Name: Zoie Heath Date of Surgery: 01/23/2022 Surgeon: Kaykay Pre-Op Diagnosis: chronic pain due to king salmon kidney - polycystic kidney disease Planned Procedure: EXAM UNDER ANESTHESIA, OPEN BILATERAL MORONGO NEPHRECTOMY Do you take Aspirin? Yes, prevenative [...] Staff Patient location during procedure: OR Room: [facility] Attending: Danny Mina MD Performed by: [...] Placed This Encounter Type and Cross -Preadmission AL ECG, CLINIC PERFORMED Lab A/P - Labs [...] DO Jono Cano [facility] Perioperative Clinic The [place] [id number] [facility] Review of Systems Review of Systems [...] Psychiatric/Behavioral: Negative for suicidal ideas. [facility] Exam Vitals and nursing note reviewed. Constitutional: [...] Laterality: N/A; Surgeon: Nahomy Santos MD; [facility] END[facility]COPY LAPAROTOMY EXPLORATORY N/A 02/27/2019 Laterality: N/A; Surgeon: Raul oLtt MD; Location: [facility] MAIN OR HERNIA REPAIR 02/27/2019 REPAIR HERNIA UMBILICAL OPEN W/ MESH N/A 05/09/2017 Laterality: N/A; Surgeon: CORNEL Elizondo; Location: [facility] MAIN OR KIDNEY TRANSPLANT W/O MORONGO NEPHRECTOMY N/A 09/25/2016 Laterality: N/A; Surgeon: Jose Shaw MD; Location: [facility] MAIN OR AL KNEE SCOPE, MENISC TRANSPLANT Right 11/12/2014 right [...] LACTIFEROUS DUCT TONSILLECTOMY Patient Care Team: Geovanna Miranda APRN-TAMY as PCP - General (Nurse Practitioner - Family) Coordinator Transplant (Inactive) 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 - [place] your teeth and rinse your mouth the morning of surgery. - Do NOT bring your dentures or partials with you into surgery. They may be lost. Give them to someone to bring to you after surgery. If you are unable to complete your scheduled testing or appointments made by [facility] please contact [facility] at [phone]. Failure to do so could delay or [...] Information Management Department for all records requests. [phone] [phone] documented in this encounter [facility] 11-30-2021 History and physical note Images [...] graft (Left, 2009); tonsillectomy; kidney transplant w/o king salmon nephrectomy (N/A, 09/25/2016); pr knee scope, menisc [...] 4, Warm. No clubbing. No cyanosis. Skin: [place], warm and dry. No rashes noted. Diagnostic [...] with several of these cysts in the king salmon kidneys have increased density probably secondary to [...] in consultation for consideration for bilateral robotic king salmon nephrectomy of polycystic kidneys which are painfully [...] patient that I do think a bilateral king salmon nephrectomy is indicated given his symptoms. I typically perform this operation through the conventional midline open approach. I have discussed the case via e-mail with my colleague Dr. Mccracken who has experience robotic surgeon. I recommended that the patient consult with Dr. Mccracken for consideration of bilateral robotic king salmon nephrectomy. In the meantime I do not believe he needs any additional imaging. We will refer him to [facility] for preoperative clearance. [facility] Work Phone: 11-30-2021 History and physical note [...] graft (Left, 2009); tonsillectomy; kidney transplant w/o king salmon nephrectomy (N/A, 09/25/2016); pr knee scope, menisc [...] 4, Warm. No clubbing. No cyanosis. Skin: [place], warm and dry. No rashes noted. Diagnostic [...] with several of these cysts in the king salmon kidneys have increased density probably secondary to [...] in consultation for consideration for bilateral robotic king salmon nephrectomy of polycystic kidneys which are painfully [...] patient that I do think a bilateral king salmon nephrectomy is indicated given his symptoms. I typically perform this operation through the conventional midline open approach. I have discussed the case via e-mail with my colleague Dr. Mccracken who has experience robotic surgeon. I recommended that the patient consult with Dr. Mccracken for consideration of bilateral robotic king salmon nephrectomy. In the meantime I do not believe he needs any additional imaging. We will refer him to [facility] for preoperative clearance. documented in this encounter [facility] 10-26-2021 Instructions Dexter Mcgrath RN - 10/26/2021 10:31 AM EDT - Referral placed with Urology - Return to clinic 09/20/2022 with CORNEL Jones as scheduled documented in this encounter [facility] 10-26-2021 History of Present illness Narrative Images from the original note were not included. 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 Date of Kidney Transplant: 09/25/2016 Primary Disease: Polycystic Kidneys Transplant Wash Box Operator: Ariel Hooper Primary Care physician: Geovanna Miranda Evaluation for nephrectomy IMMUNOSUPPRESSION AND LABS: [...] omeprazole, rOPINIRole, sildenafil citrate, tacrolimus, and terbinafine [place] [address] [address] [place] [address] [place] [address] Change in lab frequency / new order today: no Labs needed in clinic today? no COORDINATOR NOTES: Images from the original note were not included. 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 Date of Kidney Transplant: 09/25/2016 Primary Disease: Polycystic Kidneys Transplant Wash Box Operator: Ariel Hooper Primary Care physician: Geovanna Miranda Last Transplant Appointment: Evaluation for nephrectomy [...] omeprazole, rOPINIRole, sildenafil citrate, tacrolimus, and terbinafine [place] [address] [address] [facility] [address] Change in lab frequency / new order [...] date not found documented in this encounter [facility] 10-09-2021 Instructions REYES Shook - 10/09/2021 [...] sooner if needed. documented in this encounter [facility] 10-09-2021 History of Present illness Narrative [...] the urge to want to have sex. picker and sorter load and unload erections - Yes: will awaken with one [...] sooner if needed. documented in this encounter [facility] 09-18-2021 History of Present illness Narrative Images from the original note were not included. Today we were happy to see Zoie Heath at [facility] Post Transplant Office for evaluation [...] done by local vascular Dr. Stringer in [facility] in [place], [place]. Had an incarcerated ventral hernia in [...] Laterality: N/A; Surgeon: Griselda Gallegos MD; Location: [facility] SAME DAY SURGERY MAIN OR EGD DIAGNOSTIC N/A 08/10/2019 Laterality: N/A; Surgeon: Griselda Gallegos MD; Location: [facility] SAME DAY SURGERY MAIN OR EGD DIAGNOSTIC N/A 04/24/2019 Laterality: N/A; Surgeon: Nahomy Santos MD; Location: [facility] ENDOSCOPY LAPAROTOMY EXPLORATORY N/A 02/27/2019 Laterality: N/A; Surgeon: Raul Lott MD; Location: [facility] MAIN OR HERNIA REPAIR 02/27/2019 REPAIR HERNIA UMBILICAL OPEN W/ MESH N/A 05/09/2017 Laterality: N/A; Surgeon: CORNEL Elizondo; Location: [facility] MAIN OR KIDNEY TRANSPLANT W/O MORONGO NEPHRECTOMY N/A 09/25/2016 Laterality: N/A; Surgeon: Jose Shaw MD; Location: [facility] MAIN OR AL KNEE SCOPE, MENISC TRANSPLANT Right 11/12/2014 right [...] capsule Take 1 capsule by mouth daily. October trial MWF dosing after 2 weeks. rOPINIRole [...] Preventative Health PCP Mr. Heath follows with Geovanna Miranda for primary care. 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 Return to Clinic: The patient will follow-up with us in clinic in one year however we will see patient earlier should the need arise. We have ordered transplant specific labs per the center s guidelines to monitor and assess for toxicities from immunosuppressant drug therapy. Andrew Trinidad, MSN MANAGER DISH Transplant Nurse Practitioner [facility] [place] [address] documented in this encounter [facility] 09-25-2016 Evaluation note Diagnosis Polycystic kidney disease Polycystic kidney, unspecified type -donor 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/25/2016 Kidney replaced by transplant [facility] replaced by transplant- Primary Abnormal blood chemistry Other abnormal blood chemistry Immunosuppressed status Unspecified disorder of immune mechanism Aftercare following organ transplant High risk medication use Encounter for long-term (current) use of other medications [facility] Diagnosis Polycystic kidney disease- Primary Polycystic kidney, unspecified type Acute bilateral low back pain without sciatica Erectile dysfunction, unspecified erectile dysfunction type -donor 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/25/2016 Kidney replaced by transplant Lack of sexual desire Hypoactive sexual desire disorder [facility] Diagnosis Acute bilateral low back pain without sciatica [facility] Diagnosis Kidney replaced by [...] laparoscopic sleeve gastrectomy [facility] Diagnosis Polycystic kidney disease- Primary Polycystic kidney, unspecified type Gastroesophageal reflux disease without esophagitis Esophageal reflux S/P laparoscopic sleeve gastrectomy [facility] Diagnosis Preop exam for internal medicine- [...] kidney, unspecified type documented [facility]* Diagnosis Erectile dysfunction, unspecified erectile dysfunction type- Primary Gastroesophageal reflux disease without esophagitis Esophageal reflux Environmental and seasonal allergies Polycystic kidney disease Polycystic kidney, unspecified type [facility] Diagnosis Low testosterone in male- Primary Acute bacterial conjunctivitis of right eye [facility]* Diagnosis Redness of right eye- Primary Redness or discharge of eye [facility]* Diagnosis Viral URI- Primary Acute upper respiratory infections of unspecified site [facility] Diagnosis Sinusitis, unspecified chronicity, unspecified location- Primary Acute conjunctivitis of both eyes, unspecified acute conjunctivitis type [facility]* Diagnosis Sinusitis, unspecified chronicity, unspecified location- Primary Acute conjunctivitis of both eyes, unspecified acute conjunctivitis type [facility] Diagnosis Laceration of right hand without foreign body, initial encounter- Primary [facility]* Diagnosis Dog bite of right hand with infection, initial encounter- Primary [facility]* Diagnosis Dog bite, initial encounter- Primary Encounter for post surgical wound check [facility]* Diagnosis Class 2 severe obesity with serious comorbidity and body mass index (BMI) of 36.0 to 36.9 in adult, unspecified obesity type- Primary Gastroesophageal reflux disease without esophagitis Esophageal reflux S/P laparoscopic sleeve gastrectomy [facility] Diagnosis Sprain of right ankle, unspecified ligament, initial encounter- Primary Sprain of right foot, initial encounter [facility] Diagnosis Acute right ankle pain- Primary Sprain of right medial ankle joint, initial encounter [facility] Diagnosis Right foot pain- Primary Pain in limb Sprain of right ankle, unspecified ligament, initial encounter [facility] Diagnosis Lentigines- Primary Other dyschromia Skin [...] behavior of skin [facility] Diagnosis Gastroesophageal reflux disease without esophagitis Esophageal reflux S/P laparoscopic sleeve gastrectomy [facility] Diagnosis Gastroesophageal reflux disease, unspecified whether [...] sleep apnea [facility] Diagnosis S/P laparoscopic sleeve gastrectomy History of obstructive sleep apnea [facility] Diagnosis Gastroesophageal reflux disease without esophagitis- Primary Esophageal reflux Seborrheic dermatitis Seborrheic dermatitis, unspecified Tinea pedis, unspecified laterality Morbid obesity Right ear impacted cerumen Impacted cerumen [facility] Diagnosis Obstructive sleep apnea (adult) (pediatric) [G47.33]- Primary Obstructive sleep apnea (adult) (pediatric) S/P laparoscopic sleeve gastrectomy History of obstructive sleep apnea [facility] Diagnosis Obstructive sleep apnea (adult) (pediatric) [G47.33]- Primary Obstructive sleep apnea (adult) (pediatric) documented [facility]* Diagnosis Morbid obesity- Primary Acute right ankle pain Gastroesophageal reflux disease without esophagitis Esophageal reflux Benign hypertension Essential hypertension, benign DEMI (obstructive sleep apnea) Obstructive sleep apnea (adult) (pediatric) [facility] Diagnosis Gastroesophageal reflux disease without esophagitis- Primary Esophageal reflux Morbid obesity Gastroesophageal reflux disease without esophagitis Esophageal reflux Morbid obesity [facility] Diagnosis Encounter for weight loss counseling- Primary Gastroesophageal reflux disease without esophagitis Esophageal reflux Morbid obesity [facility] Diagnosis Onset Date Resolution Status History of gastric bypass [place] History of kidney transplant acute Screening for lipid disorders acute Screening for prostate cancer acute [facility] [place] Work Phone: Evaluation note* Diagnosis Preop exam [...] Morbid obesity [facility] Diagnosis Elective surgery- Primary Unspecified elective surgery for purposes other than remedying health states Gastroesophageal reflux disease without esophagitis Esophageal reflux Morbid obesity Preop exam for internal medicine Other specified pre-operative examination Hydronephrosis, unspecified hydronephrosis type Nausea Nausea alone Hyperkalemia Hyperpotassemia Obesity Obesity, unspecified [facility] Diagnosis Urinary retention- Primary Retention of urine, unspecified [facility] Diagnosis Onset Date Resolution Status Anxiety acute Depression acute GERD (gastroesophageal reflux disease) acute History of gastric bypass [place] History of kidney transplant acute Hypertension acute DEMI (obstructive sleep apnea) acute Right ankle pain acute Screening for lipid disorders acute Screening for prostate cancer acute Elevated serum creatinine [place] History of kidney transplant acute Hospital discharge follow-up acute Low hemoglobin acute [facility] [place] Work Phone: Evaluation note* Diagnosis Encounter for weight loss counseling- Primary [facility] Diagnosis Gastroesophageal reflux disease without esophagitis- Primary Esophageal reflux [facility] Diagnosis Urinary retention- Primary Retention of urine, unspecified Urinary retention Retention of urine, unspecified [facility] Diagnosis Kidney replaced by transplant- Primary Abnormal blood chemistry Other abnormal blood chemistry Aftercare following organ transplant Immunosuppressed status Unspecified disorder of immune mechanism High risk medication use Encounter for long-term (current) use of other medications Hydronephrosis, unspecified hydronephrosis type Hyperkalemia Hyperpotassemia [facility] Diagnosis Urinary retention Retention of urine, unspecified [facility] Diagnosis S/P bypass gastrojejunostomy- Primary Intestinal bypass or anastomosis status Class 1 obesity with serious comorbidity and body mass index (BMI) of 33.0 to 33.9 in adult, unspecified obesity type Post-operative state Other postprocedural status History of obstructive sleep apnea History of morbid obesity [facility] Diagnosis S/P bypass gastrojejunostomy- Primary Intestinal bypass or anastomosis status Class 1 obesity with serious comorbidity and body mass index (BMI) of 33.0 to 33.9 in adult, unspecified obesity type Post-operative state Other postprocedural status History of obstructive sleep apnea History of morbid obesity Encounter for weight loss counseling- Primary [facility] Diagnosis S/P bypass gastrojejunostomy- Primary Intestinal bypass or anastomosis status Class 1 obesity with serious comorbidity and body mass index (BMI) of 33.0 to 33.9 in adult, unspecified obesity type Post-operative state Other postprocedural status History of obstructive sleep apnea History of morbid obesity Encounter for weight loss counseling- Primary [facility] Diagnosis S/P bypass gastrojejunostomy- Primary Intestinal bypass or anastomosis status Class 1 obesity with serious comorbidity and body mass index (BMI) of 33.0 to 33.9 in adult, unspecified obesity type Post-operative state Other postprocedural status History of obstructive sleep apnea History of morbid obesity Obesity with body mass index greater than 30- Primary Stage 3a chronic kidney disease S/P bypass gastrojejunostomy Intestinal bypass or anastomosis status History of renal transplant Kidney replaced by transplant Vitamin D deficiency Unspecified vitamin D deficiency Iron deficiency Other disorders of iron metabolism Medication management Encounter for other specified aftercare High serum vitamin A S/P laparoscopic sleeve gastrectomy At risk for inadequate intake of multiple nutrients [facility]* Attachments The following attachments cannot be sent through Care Everywhere. * Hand Laceration: Stitches ([place]) [facility]* Attachments The following attachments cannot be sent through Care Everywhere. * Pain and Pain Control ([facility]) ([place]) [facility] Attachments The following attachments cannot be sent through Care Everywhere. * Bites: Animal ([place]) documented in this encounterOhioHealthInstructions* Attachments The following attachments cannot be sent through Care Everywhere. * Ankle Sprain ([place]) documented in this encounterGeorgetown Behavioral HospitalReason for referral (narrative)* Consultation (Routine) - New Request Specialty Diagnoses / Procedures Referred By Shruthi perry Referred To Contact Urology Diagnoses Kidney replaced by transplant Aftercare following organ transplant Suzie Giraldo MD, PhD [address] [place] [address] Referral ID Status Reason Start Date Expiration Date V isits Requested Visits Authorized [id number] New Request 10/26/2021 11/20/2022 1 1 [facility] Consultation (Urgent) - New Request Specialty Diagnoses / Procedures Referred By Contac t Referred To Contact Family Medicine Diagnoses Sprain of right ankle, unspecified ligament, initial encounter Sprain of right foot, initial encounter Ilia Shaffer MD [address] [place] [address] Geovanna Miranda, CEMENTER HAND-MANAGER DISH [address] [place] [address] Referral ID Status Reason Start Date Expiration Date V isits Requested Visits Authorized [id number] New Request 03/11/2023 04/04/2024 1 1 [facility] for referral (narrative)* Consultation (Routine) - New Request Specialty Diagnoses / Procedures Referred By Contac t Referred To Contact Podiatry Diagnoses Acute right ankle pain Sprain of right medial ankle joint, initial encounter Geovanna Miranda, CEMENTER HAND-MANAGER DISH [address] [place] [address] Javan Diego, DPM [address] [place] [address] Referral ID Status Reason Start Date Expiration Date V isits Requested Visits Authorized [id number] New Request 04/16/2023 05/10/2024 1 1 [facility] for referral (narrative)* Consultation (Routine) - New Request Specialty Diagnoses / Procedures Referred By Contac t Referred To Contact PreOp Diagnoses Gastroesophageal reflux disease without esophagitis Griselda Gallegos MD [address] [place] [address] Referral ID Status Reason Start Date Expiration Date V isits Requested Visits Authorized [id number] New Request 02/20/2024 03/16/2025 1 1 [facility] ([facility]ative)* Consultation (Routine) - New Request Specialty Diagnoses / Procedures Referred By Contac t Referred To Contact Transplant Surgery Diagnoses Hydronephrosis, unspecified hydronephrosis type Griselda Gallegos MD [address] [place] [address] Referral ID Status Reason Start Date Expiration Date V isits Requested Visits Authorized [id number] New Request 03/27/2024 04/21/2025 1 1 * Consultation (Routine) - New Request Specialty Diagnoses / Procedures Referred By Contac t Referred To Contact Urology Diagnoses Hydronephrosis, unspecified hydronephrosis type Griselda Gallegos MD [address] [place] [address] Referral ID Status Reason Start Date Expiration Date V isits Requested Visits Authorized [id number] New Request 03/27/2024 04/21/2025 1 1 * (Routine) Specialty Diagnoses / Procedures Referred By Milesac t Referred To Contact [address] [place] [address] Referral ID Status Reason Start Date Expiration Date Visits Re quested Visits Authorized * Radiology (Routine) - New Request Specialty Diagnoses / Procedures Referred By Shruthi t Referred To Contact Procedures US RENAL TRANSPLANT SCAN Griselda Gallegos MD [address] [place] [address] Referral ID Status Reason Start Date Expiration Date V isits Requested Visits Authorized [id number] New Request 03/25/2024 04/19/2025 1 1 * Radiology (Routine) - New Request Specialty Diagnoses / Procedures Referred By Shruthi t Referred To Contact Procedures US RENAL TRANSPLANT SCAN Griselda Gallegos MD [address] [place] [address] Referral ID Status Reason Start Date Expiration Date V isits Requested Visits Authorized [id number] New Request 03/24/2024 04/18/2025 1 1 * Unlisted Procedure Code (Routine) - New Request Specialty Diagnoses / Procedures Referred By Contac t Referred To Contact Procedures PLATELET MONITORING PER PROTOCOL Jyotsna Bahena MD [address] [place] [address] Referral ID Status Reason Start Date Expiration Date V isits Requested Visits Authorized [id number] New Request 03/23/2024 04/17/2025 1 1 * Unlisted Procedure Code (Routine) - New Request Specialty Diagnoses / Procedures Referred By Contac t Referred To Contact Procedures DVT/VTE RISK ASSESSMENT Jyotsna Bahena MD [address] [place] [address] Referral ID Status Reason Start Date Expiration Date V isits Requested Visits Authorized [id number] New Request 03/23/2024 04/17/2025 1 1 [facility] visit Narrative* Auth/Cert Specialty Diagnoses / Procedures Referred By Contac t Referred To Contact Diagnoses Gastroesophageal reflux disease without esophagitis Morbid obesity Gastroesophageal reflux disease without esophagitis [K21.9] Morbid obesity [E66.01] Procedures AL UNLISTED LAPAROSCOPY PROCEDURE STOMACH AL ESOPHAGOGASTRODUODENOSCOPY TRANSORAL DIAGNOSTIC CONVERSION SLEEVE TO MAY-EN-Y GASTRIC BYPASS LAPAROSCOPIC EGD DIAGNOSTIC Griselda Gallegos MD [address] [place] [address] [facility] [address] [place] [address] Referral ID Status Reason Start Date Expiration Date Visits Re quested Visits Authorized [id number] 1 1 [facility] Summary Purpose Family History No Family History [...] type Procedures MRI KNEE RIGHT WITHOUT CONTRAST AL MRI LOWER EXTREM JT, W/O CONTRAST Ari Ireland MD [address] [place] [address] Status Reason Specialty Diagnoses / Procedures Referred By Contact Referred To Contact New Request Diagnoses Chronic pain of right knee Procedures XR KNEE RIGHT 4+ VIEWS Ari Ireland MD [address] [place] [address] Status Reason Specialty Diagnoses / Procedures Referred By Contact Referred To Contact New Request Diagnoses Chronic pain of right knee Procedures XR BONE LENGTH STUDY Ari Ireland MD [address] [place] [address] Specialty Diagnoses / Procedures Referred By Contac t Referred To Contact Diagnoses Polycystic kidney disease -donor kidney transplant Procedures RENAL Geovanna Miranda, CEMENTER HAND-MANAGER DISH [address] [place] [address] Referral ID Status Reason Start Date Expiration Date V isits Requested Visits Authorized [id number] Auth Not Needed 10/09/2021 11/03/2022 1 1 Specialty Diagnoses / Procedures Referred By Contac t Referred To Contact Ultrasound Diagnoses Polycystic kidney disease -donor kidney transplant Procedures US RENAL Geovanna Miranda, CEMENTER HAND-MANAGER DISH [address] [place] [address] [facility] [address] [place] [address] Referral ID Status Reason Start Date Expiration Date Visits Re quested Visits Authorized [id number] Closed 10/09/2021 11/03/2022 1 1 Specialty Diagnoses / Procedures Referred By Contac t Referred To Contact PreOp Diagnoses Polycystic kidney disease Elena Hu, CEMENTER HAND-MANAGER DISH [address] [place] [address] Referral ID Status Reason Start Date Expiration Date V isits Requested Visits Authorized [id number] New Request 11/30/2021 12/25/2022 1 1 Specialty Diagnoses / Procedures Referred By Milesac t Referred To Contact Podiatry / Physical Therapy Diagnoses Right foot pain Sprain of right ankle, unspecified ligament, initial encounter Javan Diego, [facility] [address] [place] [address] [facility] [address] [address] Referral ID Status Reason Start Date Expiration Date Visits Requested Visits Authorized [id number] Authorized - [facility] 04/19/2023 05/13/2024 6 6 Scheduling Instructions . Specialty Diagnoses / Procedures Referred By Shruthi t Referred To Contact Diagnoses Gastroesophageal reflux disease without esophagitis S/P laparoscopic sleeve gastrectomy Procedures INTERVENTIONAL UPPER ENDOSCOPY AL ESOPHAGOGASTRODUODENOSCOPY TRANSORAL DIAGNOSTIC Liza Penn, CEMENTER HAND-MANAGER DISH [address] [address] Referral ID Status Reason Start Date Expiration Date V isits Requested Visits Authorized [id number] Pending Review 11/05/2022 11/30/2023 1 1 Specialty Diagnoses / Procedures Referred By Contac t Referred To Contact Diagnoses S/P laparoscopic sleeve gastrectomy Vitamin D deficiency Iron deficiency Medication management Procedures ECG Liza Penn M, CEMENTER HAND-MANAGER DISH [address] [place] [address] Referral ID Status Reason Start Date Expiration Date V isits Requested Visits Authorized [id number] New Request 09/30/2023 10/24/2024 1 1 Specialty Diagnoses / Procedures Referred By Contac t Referred To Contact Diagnoses S/P laparoscopic sleeve gastrectomy History of obstructive sleep apnea Obstructive sleep apnea (adult) (pediatric) Procedures SCHEDULE HOME SLEEP STUDY Liza Penn, CEMENTER HAND-MANAGER DISH [address] [place] [address] [place] [address] Referral ID Status Reason Start Date Expiration Date V isits Requested Visits Authorized [id number] New Request 09/30/2023 10/24/2024 1 1 Specialty Diagnoses / Procedures Referred By Contac t Referred To Contact Diagnoses Obstructive sleep apnea (adult) (pediatric) Procedures CPAP / BPAP SETUP FOR HOME Cait Richardson MD [address] [place] [address] Referral ID Status Reason Start Date Expiration Date V isits Requested Visits Authorized [id number] New Request 12/25/2023 01/18/2025 1 1 Specialty Diagnoses / Procedures [facility] Referred To Contact Diagnoses Urinary retention Procedures [place] [address] [place] [address] [address] [place] [address] Referral ID Status Reason Start Date Expiration Date V isits Requested Visits Authorized [id number] New Request 04/21/2024 05/16/2025 1 1 History of Present Illness * Ari Ireland MD - 05/15/2018 2:50 PM EST Formatting of this note may be different from the original. Dictation on: 05/15/2018 3:50 PM by: ARI IRELAND [[email or web address]] I have reviewed the findings of the clinical academic support director and agree with their assessment. Ari Ireland MD Ortho Nurse Patient Intake Room#: 1 Right knee pain Has had cortisone and just finished up Euflexxa injections with no help, PT years ago Date: 05/15/2018 3:12 PM Patient: Zoie Heath MR#: [id number] : 1965 Age: 52 y.o. Referring Physician: [...] Location: [facility] MAIN OR KIDNEY TRANSPLANT W/O MORONGO NEPHRECTOMY N/A 09/25/2016 Laterality: N/A; Surgeon: Jose Shaw MD; Location: [facility] MAIN OR AL KNEE SCOPE, MENISC TRANSPLANT Right 11/12/2014 right [...] []cane, []bracing Are you followed by a threading machine tender? [] [x] Name: Are you followed by [...] 05/15/2018 3:12 PM Patient: Zoie Heath MR#: [id number] : 1965 Age: 52 y.o. Referring Physician: [...] Location: [facility] MAIN OR KIDNEY TRANSPLANT W/O MORONGO NEPHRECTOMY N/A 09/25/2016 Laterality: N/A; Surgeon: Jose Shaw MD; Location: [facility] MAIN OR AL KNEE SCOPE, MENISC TRANSPLANT Right 11/12/2014 right [...] []cane, []bracing Are you followed by a threading machine tender? [] [x] Name: Are you followed by [...] section and content) DATE CREATED AUTHOR 12/24/2017 [facility] DATE CREATED AUTHOR AUTHOR'S ORGANIZ ATION 12/25/2017 [facility] DATE CREATED AUTHOR AUTHOR'S ORGANIZ ATION 07/02/2018 [facility] DATE CREATED AUTHOR AUTHOR'S ORGANIZ ATION 08/19/2018 [facility] DATE CREATED AUTHOR AUTHOR'S ORGANIZ ATION 10/31/2022 [facility] DATE CREATED AUTHOR AUTHOR'S ORGANIZ ATION 01/18/2024 [facility] DATE CREATED AUTHOR AUTHOR'S ORGANIZ ATION 02/22/2024 [facility] DATE CREATED AUTHOR AUTHOR'S ORGANIZ ATION 11/28/2024 [facility] Reason for Visit (unrecogniz ed section and content) Reason Comments New Patient Specialty Diagnoses / Procedures Referred By Contac t Referred To Contact Pulmonary Disease / Sleep Medicine Diagnoses new bariatric Procedures NEW BARIATRIC PATIENT Self, Self Cait Richardson MD [address] [place] [address] Referral ID Status Reason Start Date Expiration Date V isits Requested Visits Authorized [id number] New Request 01/08/2024 02/01/2025 1 1 Reason Comments Pain Reason Comments Medication Refill Status Reason Specialty Diagnoses / Procedures Re ferred By Contact Referred To Contact Closed Diagnoses Chronic pain of right knee Osteoarthritis of right knee, unspecified osteoarthritis type Procedures MRI KNEE RIGHT WITHOUT CONTRAST AL MRI LOWER EXTREM JT, W/O CONTRAST Ari Ireland MD [address] [place] [address] Status Reason Specialty Diagnoses / Procedures Referred By Contact Referred To Contact New Request Diagnoses Chronic pain of right knee Procedures XR BONE LENGTH STUDY Ari Ireland MD [address] [place] [address] Reason Comments Kidney Recipient Follow-up Reason Comments Back Pain Specialty Diagnoses / Procedures Referred By Contac t Referred To Contact Ultrasound Diagnoses Polycystic kidney disease -donor kidney transplant Procedures RENAL Geovanna Miranda, CEMENTER HAND-MANAGER DISH [address] [place] [address] [facility] [address] [place] [address] Referral ID Status Reason Start Date Expiration Date Visits Re quested Visits Authorized [id number] Closed 10/09/2021 11/03/2022 1 1 Reason Comments Kidney Recipient Follow-up Specialty Diagnoses / Procedures Referred By Contac t Referred To Contact Urology Diagnoses Kidney replaced by transplant Aftercare following organ transplant Suzie Giraldo MD, PhD [address] [place] [address] Referral ID Status Reason Start Date Expiration Date V isits Requested Visits Authorized [id number] New Request 10/26/2021 11/20/2022 1 1 Reason Comments Pre-operative Consultation Specialty Diagnoses / Procedures Referred By Contac t Referred To Contact PreOp Diagnoses Polycystic kidney disease Elena Hu, CEMENTER HAND-MANAGER DISH [address] [place] [address] Referral ID Status Reason Start Date Expiration Date V isits Requested Visits Authorized [id number] New Request 11/30/2021 12/25/2022 1 1 Reason [...] at 1530 today. Denies taking any medication wire brush maker. Reason Comments Ankle Pain Reason Comments New Patient New Pt, Rt ankle amber n. DOI 03/11/23(39 days) Michael Wrap from ED with minimal relief. 4/10 pain at rest, 6/10 pain with WB/Activity. Specialty Diagnoses / Procedures Referred By Shruthi perry Referred To Contact Podiatry Diagnoses Acute right ankle pain Sprain of right medial ankle joint, initial encounter Geovanna Miranda, CEMENTER HAND-MANAGER DISH [address] [place] [address] Javan Diego, DPM [address] [place] [phone] Referral ID Status Reason Start Date Expiration Date V isits Requested Visits Authorized [id number] New Request 04/16/2023 05/10/2024 1 1 Reason Comments Skin Exam Specialty Diagnoses / Procedures Referred By Shruthi perry Referred To Contact Diagnoses Gastroesophageal reflux disease without esophagitis S/P laparoscopic sleeve gastrectomy Procedures INTERVENTIONAL UPPER ENDOSCOPY AL ESOPHAGOGASTRODUODENOSCOPY TRANSORAL DIAGNOSTIC Liza Penn, CEMENTER HAND-MANAGER DISH [address] [facility] [address] [place] [address] Referral ID Status Reason Start Date Expiration Date V isits Requested Visits Authorized [id number] Pending Review 11/05/2022 11/30/2023 1 1 Reason [...] Procedures SCHEDULE HOME SLEEP STUDY Liza Penn, CEMENTER HAND-MANAGER DISH [address] [facility] [address] [place] [address] Referral ID Status Reason Start Date Expiration Date V isits Requested Visits Authorized [id number] New Request 09/30/2023 10/24/2024 1 1 Reason [...] week. Specialty Diagnoses / Procedures Referred By Contac t Referred To Contact General Surgery Diagnoses Pre op Pt Name: Zoie Heath MD: Dr. Gallegos Insurance: Anthem Medicare Auth#: [id number] Procedure: 23120 (Gj), 20922 (Revision), 09775 (EGD) DOS: 05/08/24 - filler date Inpatient stay Procedures NEW BARIATRIC PATIENT Rodrigo Saravia MD [address] [place] [address] Griselda Gallegos MD [address] [place] [address] Referral ID Status Reason Start Date Expiration Date V isits Requested Visits Authorized [id number] New Request 02/20/2024 03/16/2025 1 1 Reason Comments Follow-up Specialty Diagnoses / Procedures Referred By Shruthi perry Referred To Contact PreOp Diagnoses Gastroesophageal reflux disease without esophagitis Griselda Gallegos MD [address] [place] [address] Referral ID Status Reason Start Date Expiration Date V isits Requested Visits Authorized [id number] New Request 02/20/2024 03/16/2025 1 1 Reason [...] type Griselda Gallegos MD [address] [place] [phone] Referral ID Status Reason Start Date Expiration Date V isits Requested Visits Authorized [id number] New Request 03/27/2024 04/21/2025 1 1 Specialty Diagnoses / Procedures Referred By Shruthi perry Referred To Contact Diagnoses Urinary retention Procedures US RENAL TRANSPLANT SCAN Isabell Frank MD [address] [facility] [address] [place] [address] Referral ID Status Reason Start Date Expiration Date V isits Requested Visits Authorized [id number] New Request 04/21/2024 05/16/2025 1 1 Reason Comments Follow-up Sleeve to May-En-Y 03/23/2024. Had some N/V 10 days ago, thinks it was eating too much, no problems since. Fluid intake 1 gallon per day, protein intake eats first every meal, 1 shake per day. Bowels working well. Exercise is walking .5-1 mile daily, Weight is down 15 lbs from last visit and DOS. Reason Comments Follow-up Presents for surgica l weight management follow up s/p GJ on 03-23-24. Weight is down 6# since last clinic visit on 04-23-24 and down 22# since DOS. He denies any nausea, vomiting, diarrhea, constipation, bloating and symptoms of reflux. Is drinking 64 oz of fluid and taking in 60-80 grams of protein daily. For exercise he is walking 4-5 days per week for 60-90 minutes. Care Teams (unrecognized sec tion and content) Automatic Steel Tie Adjuster Relationship Specialty Start Date End Date Transplant, Coordinator [address] [place] [phone] PCP - Truck Driver Rubbish Collector 08/23/10 Geovanna Miranda APRN-MANAGER DISH PCP - General Nurse Practitioner - Family 07/16/17 Automatic Steel Tie Adjuster Relationship Specialty Start Date End Date Transplant, Coordinator [address] [place] [phone] PCP - Truck Driver Rubbish Collector 08/23/10 Geovanna Miranda APRN-MANAGER DISH PCP - General Nurse Practitioner - Family 07/16/17 Automatic Steel Tie Adjuster Relationship Specialty Start Date End Date Transplant, Coordinator [address] [place] [phone] PCP - Truck Driver Rubbish Collector 08/23/10 Geovanna Miranda APRN-MANAGER DISH PCP - General Nurse Practitioner - Family 07/16/17 Automatic Steel Tie Adjuster Relationship Specialty Start Date End Date Transplant, Coordinator [address] [place] [phone] PCP - Truck Driver Rubbish Collector 08/23/10 Geovanna Miranda CEMENTER HAND-MANAGER DISH PCP - General Nurse Practitioner - Family 07/16/17 Automatic Steel Tie Adjuster Relationship Specialty Start Date End Date Transplant, Coordinator [address] [place] [address], [place] [phone] PCP - Truck Driver Rubbish Collector 08/23/10 Geovanna Miranda CEMENTER HAND-MANAGER DISH PCP - General Nurse Practitioner - Family 07/16/17 Automatic Steel Tie Adjuster Relationship Specialty Start Date End Date Transplant, Coordinator [address] [place] [address], [place] [phone] PCP - Truck Driver Rubbish Collector 08/23/10 Geovanna Miranda CEMENTER HAND-MANAGER DISH PCP - General Nurse Practitioner - Family 07/16/17 Automatic Steel Tie Adjuster Relationship Specialty Start Date End Date Transplant, Coordinator [address] [place] [address], [place] [phone] PCP - Truck Driver Rubbish Collector 08/23/10 Geovanna Miranda CEMENTER HAND-MANAGER DISH PCP - General Nurse Practitioner - Family 07/16/17 Automatic Steel Tie Adjuster Relationship Specialty Start Date End Date Transplant, Coordinator [address] [place] [address], [place] [phone] PCP - Truck Driver Rubbish Collector 08/23/10 Geovanna Miranda CEMENTER HAND-MANAGER DISH PCP - General Nurse Practitioner - Family 07/16/17 Automatic Steel Tie Adjuster Relationship Specialty Start Date End Date Transplant, Coordinator [address] [place] [address], [place] [phone] PCP - Truck Driver Rubbish Collector 08/23/10 Geovanna Miranda CEMENTER HAND-MANAGER DISH PCP - General Nurse Practitioner - Family 07/16/17 Automatic Steel Tie Adjuster Relationship Specialty Start Date End Date Transplant, Coordinator [address] [place] [phone] PCP - Truck Driver Rubbish Collector 08/23/10 Geovanna Miranda APRN-MANAGER DISH PCP - General Nurse Practitioner - Family 07/16/17 Automatic Steel Tie Adjuster Relationship Specialty Start Date End Date Geovanna Miranda CNP [address] [place] [address] PCP - General Nurse Practitioner 04/20/22 Automatic Steel Tie Adjuster Relationship Specialty Start Date End Date Geovanna Miranda CNP [address] [place] [address] PCP - General Nurse Practitioner 04/20/22 Automatic Steel Tie Adjuster Relationship Specialty Start Date End Date Geovanna Miranda CNP [address] [place] [address] PCP - General Nurse Practitioner 04/20/22 Automatic Steel Tie Adjuster Relationship Specialty Start Date End Date Transplant, Coordinator [address] [place] [phone] PCP - Truck Driver Rubbish Collector 08/23/10 Geovanna Miranda APRN-MANAGER DISH PCP - General Nurse Practitioner - Family 07/16/17 Automatic Steel Tie Adjuster Relationship Specialty Start Date End Date Geovanna Miranda CNP [address] [place] [address] PCP - General Nurse Practitioner 04/20/22 Automatic Steel Tie Adjuster Relationship Specialty Start Date End Date Transplant, Coordinator [address] [place] [phone] PCP - Truck Driver Rubbish Collector 08/23/10 Geovanna Miranda APRN-MANAGER DISH PCP - General Nurse Practitioner - Family 07/16/17 Automatic Steel Tie Adjuster Relationship Specialty Start Date End Date Transplant, Coordinator [address] [place] [address], [place] [address] PCP - Truck Driver Rubbish Collector 08/23/10 Geovanna Miranda APRN-MANAGER DISH [address] [place] [address], [place] [address] PCP - General Nurse Practitioner - Family 07/16/17 Automatic Steel Tie Adjuster Relationship Specialty Start Date End Date Transplant, Coordinator [address] [place] [address], [place] [phone] PCP - Truck Driver Rubbish Collector 08/23/10 Geovanna Miranda CEMENTER HAND-MANAGER DISH [address] [place] [address], [place] [phone] PCP - General Nurse Practitioner - Family 07/16/17 Automatic Steel Tie Adjuster Relationship Specialty Start Date End Date Transplant, Coordinator [address] [place] [address], [place] [phone] PCP - Truck Driver Rubbish Collector 08/23/10 Geovanna Miranda CEMENTER HAND-MANAGER DISH [address] [place] [address], [place] [address] PCP - General Nurse Practitioner - Family 07/16/17 Automatic Steel Tie Adjuster Relationship Specialty Start Date End Date Transplant, Coordinator [address] [place] [address], [place] [phone] PCP - Truck Driver Rubbish Collector 08/23/10 Geovanna Miranda APRN-MANAGER DISH [address] [place] [address], [place] [phone] PCP - General Nurse Practitioner - Family 07/16/17 Automatic Steel Tie Adjuster Relationship Specialty Start Date End Date Transplant, Coordinator [address] [place] [address], [place] [phone] PCP - Truck Driver Rubbish Collector 08/23/10 Geovanna Miranda APRN-TAMY [address] [place] [address], [place] [phone] PCP - General Nurse Practitioner - Family 07/16/17 Automatic Steel Tie Adjuster Relationship Specialty Start Date End Date Transplant, Coordinator [address] [place] [address], [place] [phone] PCP - Truck Driver Rubbish Collector 08/23/10 Geovanna Miranda APRN-MANAGER DISH [address] [place] [address], [place] [phone] PCP - General Nurse Practitioner - Family 07/16/17 Automatic Steel Tie Adjuster Relationship Specialty Start Date End Date Transplant, Coordinator [address] [place] [address], [place] [phone] PCP - Truck Driver Rubbish Collector 08/23/10 Geovanna Miranda APRN-CNP [address] [place] [address], [place] [phone] PCP - General Nurse Practitioner - Family 07/16/17 Automatic Steel Tie Adjuster Relationship Specialty Start Date End Date Transplant, Coordinator [address] [place] [address], [place] [phone] PCP - Truck Driver Rubbish Collector 08/23/10 Geovanna Miranda APRN-CNP [address] [place] [address], [place] [phone] PCP - General Nurse Practitioner - Family 07/16/17 Automatic Steel Tie Adjuster Relationship Specialty Start Date End Date Transplant, Coordinator [address] [place] [address], [place] [phone] PCP - Truck Driver Rubbish Collector 08/23/10 Geovanna Miranda APRN-MANAGER DISH [address] [place] [phone] PCP - General Nurse Practitioner - Family 07/16/17 Automatic Steel Tie Adjuster Relationship Specialty Start Date End Date Transplant, Coordinator [address] [place] [phone] PCP - Truck Driver Rubbish Collector 08/23/10 Geovanna Miranda APRN-MANAGER DISH [address] [place] [phone] PCP - General Nurse Practitioner - Family 07/16/17 11/19/23 Automatic Steel Tie Adjuster Relationship Specialty Start Date End Date Transplant, Coordinator [address] [place] [address], [place] [phone] PCP - Truck Driver Rubbish Collector 08/23/10 Automatic Steel Tie Adjuster Relationship Specialty Start Date End Date Transplant, Coordinator [address] [place] [phone] PCP - Truck Driver Rubbish Collector 08/23/10 Geovanna Miranda CEMENTER HAND-MANAGER DISH [address] [place] [phone] PCP - General Nurse Practitioner - Family 07/16/17 11/19/23 Rodrigo Saravia MD [address] [place] [address] PCP - General Family Medicine 12/04/23 Automatic Steel Tie Adjuster Relationship Specialty Start Date End Date Transplant, Coordinator [address] [place] [phone] PCP - Truck Driver Rubbish Collector 08/23/10 Rodrigo Saravia MD [address] [place] [address] PCP - General Family Medicine 12/04/23 Automatic Steel Tie Adjuster Relationship Specialty Start Date End Date Transplant, Coordinator [address] [place] [phone] PCP - Truck Driver Rubbish Collector 08/23/10 Rodrigo Saravia MD [address] [place] [address] PCP - General Family Medicine 12/04/23 Automatic Steel Tie Adjuster Relationship Specialty Start Date End Date Transplant, Coordinator [address] [place], [place] [phone] PCP - Truck Driver Rubbish Collector 08/23/10 Rodrigo Saravia MD [address] [place] [address] PCP - General Family Medicine 12/04/23 Automatic Steel Tie Adjuster Relationship Specialty Start Date End Date Transplant, Coordinator [address] [place] [phone] PCP - Truck Driver Rubbish Collector 08/23/10 Rodrigo Saravia MD [address] [place] [address] PCP - General Family Medicine 12/04/23 Team Status: Active Member Role Status Dates Cayla Velazquez APRN CLOCK AND WATCH HANDS DIPPER-C Primary Care Provider Active Team Status: Inactive Member Role Status Dates Cayla Velazquez APRN CLOCK AND WATCH HANDS DIPPER-C Primary Care Provider, Attending Provider Active Start: February 24, 2024 End: February 24, 2024 Automatic Steel Tie Adjuster Relationship Specialty Start Date End Date Transplant, Coordinator [address] [place] [phone] PCP - Truck Driver Rubbish Collector 08/23/10 Cayla Velazquez CNP [address] [place] [phone] (Fax) PCP - General Certified Nurse Practitioner 02/25/24 Roberto Carlos Davey MD [address] [place] [address] Consulting Physician Nephrology 02/25/24 Automatic Steel Tie Adjuster Relationship Specialty Start Date End Date Transplant, Coordinator [address] [place] [phone] PCP - Truck Driver Rubbish Collector 08/23/10 Cayla Velazquez CNP [address] [place] [address] PCP - General Certified Nurse Practitioner 02/25/24 Roberto Carlos Davey MD [address] [place] [address] Consulting Physician Nephrology 02/25/24 Automatic Steel Tie Adjuster Relationship Specialty Start Date End Date Transplant, Coordinator [address] [place] [phone] PCP - Truck Driver Rubbish Collector 08/23/10 Cayla Velazquez CNP [address] [place] [address] PCP - General Certified Nurse Practitioner 02/25/24 Roberto Carlos Davey MD [address] [place] [address] Consulting Physician Nephrology 02/25/24 Team Status: Active Member Role Status Dates Cayla Velazquez APRN CLOCK AND WATCH HANDS DIPPER-C Primary Care Provider, Attending Provider Active Start: February 27, 2024 Team Status: Inactive Member Role Status Dates Cayla Velazquez APRN CLOCK AND WATCH HANDS DIPPER-C Primary Care Provider, Attending Provider Active Start: April 07, 2024 End: April 07, 2024 Automatic Steel Tie Adjuster Relationship Specialty Start Date End Date Transplant, Coordinator [address] [place] [phone] PCP - Truck Driver Rubbish Collector 08/23/10 Cayla Velazquez CNP [address] [place] [address] PCP - General Certified Nurse Practitioner 02/25/24 Roberto Carlos Davey MD [address] [place] [address] Consulting Physician Nephrology 02/25/24 Automatic Steel Tie Adjuster Relationship Specialty Start Date End Date Transplant, Coordinator [address] [place] [phone] PCP - Truck Driver Rubbish Collector 08/23/10 Cayla Velazquez CNP [address] [place] [address] PCP - General Certified Nurse Practitioner 02/25/24 Roberto Carlos Davey MD [address] [place] [address] Consulting Physician Nephrology 02/25/24 Automatic Steel Tie Adjuster Relationship Specialty Start Date End Date Transplant, Coordinator [address] [place] [phone] PCP - Truck Driver Rubbish Collector 08/23/10 Cayla Velazquez CNP [address] [place] [phone] (Fax) PCP - General Certified Nurse Practitioner 02/25/24 Roberto Carlos Davey MD [address] [place] [address] Consulting Physician Nephrology 02/25/24 Automatic Steel Tie Adjuster Relationship Specialty Start Date End Date Transplant, Coordinator [address] [place] [phone] PCP - Truck Driver Rubbish Collector 08/23/10 Cayla Velazquez CNP [address] [place] [phone] (Fax) PCP - General Certified Nurse Practitioner 02/25/24 Roberto Carlos Davey MD [address] [place] [address] Consulting Physician Nephrology 02/25/24 Automatic Steel Tie Adjuster Relationship Specialty Start Date End Date Transplant, Coordinator [address] [place] [phone] PCP - Truck Driver Rubbish Collector 08/23/10 Cayla Velazquez CNP [address] [place] [address] (Fax) PCP - General Certified Nurse Practitioner 02/25/24 Roberto Carlos Davey MD [address] [place] [address] Consulting Physician Nephrology 02/25/24 Automatic Steel Tie Adjuster Relationship Specialty Start Date End Date Transplant, Coordinator [address] [place] [phone] PCP - Truck Driver Rubbish Collector 08/23/10 Cayla Velazquez CNP [address] [place] [phone] PCP - General Certified Nurse Practitioner 02/25/24 Roberto Carlos Davey MD [address] [place] [address] Consulting Physician Nephrology 02/25/24 Automatic Steel Tie Adjuster Relationship Specialty Start Date End Date Transplant, Coordinator [address] [place] [phone] PCP - Truck Driver Rubbish Collector 08/23/10 Cayla Velazquez CNP [address] [place] [address] PCP - General Certified Nurse Practitioner 02/25/24 Roberto Carlos Davey MD [address] [place] [address] Consulting Physician Nephrology 02/25/24 Scheduled Active and Recently Administ ered Medications (unrecognized section and content) Medication Order 04/19/2022 04/20/2022 04/21/2022 proparacaine (ALCAINE) 0.5 % ophthalmic solution 2 drop (COMPLETED) 2 drop, Right Eye, ONCE, 1 dose, On 04/21/22 at 1130 1115 (Given - Provid er: Andrew Guan RN - Comment: per Dr. Archuleta for bedside procedure) Scheduled Medication Order 10/22/2022 10/23/2022 10/24/2022 pjyjvkii-ddifenoull-oioxmjrfd (NEOSPORIN) 400-5-5000 ointment 1 Application. (COMPLETED) 1 Application., Topical, ONCE, 1 dose, On Sat10/24/22 at 0800 0749 (Given - Provid er: Amairani Au RN - Comment: was applied and rest sent home with patient) Scheduled Medication Order 03/09/2023 03/10/2023 03/11/2023 Acetaminophen (TYLENOL) tablet 650 mg (COMPLETED) 650 mg, Oral, ONCE, 1 dose, On Sat03/11/23 at 0000 2348 (Given - Provider: Patience Hurtado RN) Scheduled Medication Order 03/26/2024 03/27/2024 03/28/2024 Acetaminophen (TYLENOL) tablet 650 mg 650 mg, Oral, EVERY 6 HOURS NON-STANDARD, First dose on Sat03/23/24 at 1530, Until Discontinued, Administer if tolerating PO. Do not exceed 4000 mg in 24 hours., Post-op/Post-Proc 0531 (Given - Provider: Sarah Mireles RN)0849 (Given - Provider: Aline Israel RN)1628 (Given - Provider: Aline Israel RN)2014 (Given - Provider: Sarah Mireles RN) 0145 [...] Chino RN) 0908 (Given - Provider: Kg Blackburn RN) carBAMazepine (TEGRETOL) chewable tablet 200 mg 200 mg, Oral, DAILY EVERY MORNING, First dose (after last modification) on Sat03/24/24 at 0900, Until Discontinued 0844 (Given - Provider: Aline Israel RN) 0810 (Given - Provider: Gamal Chino RN) 0910 (Given - Provider: Kg Blackburn, TABATHA) carBAMazepine (TEGRETOL) chewable tablet 300 mg 300 mg, Oral, Nightly, First dose on Sat03/23/24 at 2100, Until Discontinued 2014 (Given - Provider: Sarah Mireles RN) 2040 (Given - Provider: Kg Blackburn, RN) Cetirizine (ZyrTEC) tablet 10 mg 10 mg, Oral, DAILY, First dose on Sat03/24/24 at 1400, Until Discontinued 08 (Given - Provider: Aline Israel RN) 08 (Given - Provider: Gamal Chino RN) 09 (Given - Provider: Kg Blackburn RN) Enoxaparin [...] Indications: DVT/PE prophylaxis, Post-op/Post-Proc, On hold since Dee 03/26/2024 at 0922 until manually unheld 0841 (Given - Provider: Aline Israel RN)0922 (Held by provider - Provider: Jamel Uriarte [...] or side of thighs., Indications: DVT/PE prophylaxis 09 (Not Given - Provider: Kg Blackburn RN - Reason: Patient/family refused) Escitalopram (LEXAPRO) tablet 20 mg 20 mg, Oral, DAILY EVERY MORNING, First dose on Sat03/24/24 at 0900, Until Discontinued 0847 (Given - Provider: Aline Israel RN) 0811 (Given - Provider: Gamal Chino RN) 0911 (Given - Provider: Kg Blackburn, TABATHA) Iohexol (OMNIPAQUE) 300 MG/ML vial 50 mL (COMPLETED) 50 mL, Intravenous, ONCE, 1 dose, On Sat03/27/24 at 1400, Extravasation Risk, Intra-op/Intra-Proc 1400 (Due)1436 (Given - Provider: Netta Titus MD) Montelukast (SINGULAIR) tablet 10 mg 10 mg, Oral, DAILY, First dose on Sat03/24/24 at 1400, Until Discontinued 0843 (Given - Provider: Aline Israel RN) 0808 (Given - Provider: Gamal Chino RN) 09 (Given - Provider: Kg Blackburn, TABATHA) Mycophenolate oral suspension 750 mg 750 mg, Oral, 2 TIMES DAILY (Solid Organ Transplant), First dose on Sat03/23/24 at 2000, Until Discontinued, May be administered via a nasogastric tube (minimum 8 Guyanese, 1.7 mm interior diameter); oral suspension should not be mixed with other medications. Storage Change-Refrigeration no longer required 0848 (Given - Provider: Aline Israel RN)2013 (Given - Provider: Sarah Mireles RN) 0811 (Given - Provider: Gamal Chino RN)2038 (Given - Provider: Kg Blackburn, TABATHA) 09 (Given - Provider: Kg Blackburn, RN) OLANZapine (zyPREXA) tablet 2.5 mg 2.5 mg, Oral, DAILY AT BEDTIME, First dose on Sat03/23/24 at 2100, Until Discontinued 2013 (Given - Provider: Sarah Mireles RN) 2040 (Given - Provider: Kg Blackburn, RN) Ondansetron (ZOFRAN) tablet 4 mg(Linked Group 1) 4 mg, Oral, EVERY 6 HOURS NON-STANDARD, First dose on Sat03/23/24 at 1930, Until Discontinued, Post-op/Post-Proc 313 (Not Given - Provider: Sarah Mireles RN - Reason: Patient sleeping)0531 (Given - Provider: Sarah Mireles RN)1209 (Given - Provider: Ailne Israel RN)2013 (Given - Provider: Sarah Mireles RN) 0040 (Given - Provider: Sarah Mireles RN)0808 (Given - Provider: Gamal Chino, TABATHA)1509 (Given - Provider: Gamal Chino RN)203 (Given - Provider: Kg Blackburn RN) 0103 (Given - Provider: Frederick Campos, TABATHA)0908 (Given - Provider: Kg Blackburn RN)1330 (Canceled [...] (See Alternative - Provider: Sarah Mireles RN) 0040 (See Alternative - Provider: Sarah Mireles RN)0808 (See Alternative - Provider: Gamal Chino, TABATHA)1509 (See Alternative - Provider: Gamal Chino RN)203 (See Alternative - Provider: Kg Blackburn, TABATHA) 0103 (See Alternative - Provider: Frederick Campos, [...] Gamal Chino RN)1644 (Given - Provider: Maxwell Lopez RN) 0908 (Given - Provider: Kg Blackburn RN) Polyethylene glycol (MIRALAX) packet 17 g 17 g, Oral, DAILY, First dose on Sat03/24/24 at 0900, Until Discontinued, Post-op/Post-Proc 0836 (Given - Provider: Aline Israel RN) 0819 (Not Given - Provider: Gamal Chino RN - Reason: Other - Comment: NPO for IR) 09 (Given - Provider: Kg Blackburn, RN) rOPINIRole (REQUIP) tablet 0.5 mg 0.5 mg, Oral, DAILY AT BEDTIME, First dose on Sat03/23/24 at 2100, Until Discontinued, Max 24 mg/day 2014 (Given - Provider: Sarah Mireles RN) 2037 (Given - Provider: Kg Blackburn, TABATHA) Sucralfate (CARAFATE) tablet 1 g 1 g, Oral, 2 TIMES DAILY BEFORE MEALS, First dose on Sat03/23/24 at 1600, Until Discontinued, Avoid administration of other oral medications within 2 hours of sucralfate. Put pill into a tablespoon of water to create a slurry. 0843 (Given - Provider: Aline Israel RN)1629 (Given - Provider: Aline Israel RN) 0808 (Given - Provider: Gamal Chino, TABATHA)1644 (Given - Provider: Maxwell Lopez, TABATHA) 0907 (Given - Provider: Kg Blackburn, TABATHA) Tacrolimus (PROGRAF) capsule 4 mg 4 mg, [...] route needed. 2039 (Given - Provider: Kg Blackburn, TABATHA) 904 (Given - Provider: Kg Blackburn, TABATHA) Tacrolimus (PROGRAF) capsule 5 mg (CANCELED) 5 [...] Mireles RN) 0811 (Given - Provider: Gamal Chino, RN) Continuous Medication Order 03/26/2024 03/27/2024 03/28/2024 [...] CONTINUOUS, Starting on Sat03/27/24 at 0000, Until 03/28/24 at 1526 0038 ($$New Bag$$ - Provider: Sarah Mireles RN)0442 (Rate/Dose Verify - Provider: Sarah Mireles RN)0541 (Stopped - Provider: Sarah Mireles RN)0549 (Restarted - Provider: Gamal Chino RN)0819 ($$New Bag$$ - Provider: Gamal Chino, RN)0859 (Paused - Provider: Gamal Chino, RN)0905 (Restarted - Provider: Gamal Chino, RN)1052 (Stopped - Provider: Gamal Chino, TABATHA)1053 (Stopped - Provider: Gamal Chino, RN) PRN Medication Order 03/26/2024 03/27/2024 03/28/2024 Ampicillin-Sulbactam Sodium (UNASYN) 3 g in sodium chloride 0.9% (MB PLUS) 100 mL (total volume) IVPB (COMPLETED) 3 g, Intravenous, Administer over 30 Minutes, WATER SYSTEM OPERATOR TO PROCEDURE, 1 dose, Starting on Sat03/27/24 at 1017, Until Sat03/27/24 at 1501, Surgical Prophylaxis, Initiate antibiotic administration 30-60 minutes prior to surgical incision and complete administration prior to surgical incision., Pre-op/Pre-Proc 1240 ($$New Bag$$ - Provider : Bee Mccurdy, RN)1501 (Stopped - Provider: Gamal Chino RN) Cyclobenzaprine (FLEXERIL) tablet 5 mg 5 mg, Oral, 3 TIMES DAILY NEEDED, Starting on Sat03/23/24 at 1459, Until 03/28/24 at 1527, Mild [...] Maxwell Hsu RN)1426 (Given - Provider: Maxwell Hsu RN) Haloperidol (HALDOL) tablet 0.5 mg 0.5 mg, [...] Maxwell Hsu, RN)1426 (Given - Provider: Maxwell Hsu, RN) oxyCODONE (ROXICODONE) tablet 5 mg 5 [...] BE BASED ON THE PRIMARY CLINICAL RECORDS. [facility]. provides no warranty or guarantee of the accuracy or completeness of information in this document.
[2025-02-25 11:06] LABS: Alanine Aminotransferase 20 U/L (16-63); Albumin Globulin Ratio 1.2; Albumin Level 3.6 g/dL (3.4-5.0); Alkaline Phosphatase 74 U/L (46-116); Anion Gap 7.0; Aspartate Amino Transferase 16 U/L (15-37); Blood Urea Nitrogen 23.0 mg/dL (7.0-18.0); Calcium 9.3 mg/dL (8.5-10.1); Carbon Dioxide 30.3 mmol/L (21.0-32.0); Chloride 107 mmol/L (98-107); Cholesterol 142 mg/dL (<=200); Estimated GFR (African America 53 (>=60 mL/min/1.73m^2); Estimated GFR (Non-African Ame 44 (>=60 mL/min/1.73m^2); Globulin 3.0 g/dL; Glucose 91 mg/dL (74-106); HDL Cholesterol 80 mg/dL (40-60); Potassium 5.3 mmol/L (3.5-5.1); Sodium 139 mmol/L (136-145); TSH W/ REFLEX FT4 2.523 uIU/mL (0.358-3.740); Total Protein 6.6 g/dL (6.4-8.2); Triglycerides 57 mg/dL (<=150); VLDL CHOLESTEROL 11.4 mg/dL
[2025-02-25 11:18] LABS: Iron 71.0 ug/dL (65.0-175.0); Percent Iron Saturation 25.4 %; Total Iron Binding Capacity 279.0 ug/dL (250.0-450.0)
[2025-02-25 11:42] LABS: Ferritin 253.0 ng/mL (26.0-388.0)
[2025-02-26 04:07] LABS: Vitamin B12 420 pg/mL (232-1245)
== END 2025-02-25 09:48 | disposition home or self-care (01) ==
LOC: LAB 09:49
PROVIDERS: PCP Nurse Practitioner Family; Visit Provider Nurse Practitioner Family
DX: I12.9 Hypertensive chronic kidney disease with stage 1 through stage 4 chronic kidney disease, or unspecified chronic kidney disease (principal); N18.9 Chronic kidney disease, unspecified; Z13.220 Encounter for screening for lipoid disorders; R53.83 Other fatigue; Z12.5 Encounter for screening for malignant neoplasm of prostate
CPT/HCPCS: 36415; 80053; 80061; 82306; 82607; 82728; 83540; 83550; 84443; G0103

== ENCOUNTER 2025-05-10 12:00 | Outpatient (OUT) | payer MEDICARE, SELFPAY ==
--- OUTSIDE RECORDS SUMMARY | 2025-05-10 12:05 | XMS_ITS | Continuity of Care Document ---
Author Organization [facility] [place] Address [address] [place] [phone] Phone [phone] Care Team Providers Care Stratigraphy Teacher Name Role Phone [facility] Care Team Information Weigh And Charge Worker + [phone] Social History Type Date Description Comments Sex Male Tobacco Use Start: Unknown End: Unknown Patient is a former smoker PT STOPPED IN 1999 Smoking Status Reviewed: 07/01/99 Patient is a former smoker PT STOPPED IN 1999 Results Test Acquired Date Facility Test Result H/L Range N ote BUN - Urea Nitrogen 06/25/2012 [facility] (000)-000-0000BUN - Urea Inmeasfs35Ykrgegyt Serum Mass/Vol06/25/2012[facility] (000)-000-0000Creatine Serum Mass/Vol4.41Electrolytes Panel06/25/2012[facility] (000)-000-0000Carbon Wbbvdsb90Ruogqpzy850Ktjomgpgq3.4Zfmqlu335.Calcium, Fjzitytpit33/26/2012[facility] (000)-000-0000Calcium Blood8.6Japfxshfol5.9.Hemoglobin And Ipmmmbksln00/03/2011 [facility] (000)-000-2587Axmmkuujmi82.0Vicmzmkdty75.9BUN - Urea Mgugaaro63/03/2011[facility] (000)-000-0000BUN - Urea Sutrsvvx96Xtpbameb Serum Mass/Vol10/31/2010[facility] (000)-000-0000Creatine Serum Mass/Vol4.06Electrolytes Panel10/31/2010[facility] (000)-000-0000Carbon Tyucvzv72Vyszakuk099Movydgywm1.9Iecgla189.Calcium, Rojphzpepr10/03/2011[facility] (000)-000-0000Calcium Blood8.4Aqjqefvlpg3.8.Intact Parathyroid Qgbxumv6710/31/2010 [facility] [phone].Intact Parathyroid Qdnjuwd681 Encounters Type Date Location Provider Dx Diagnosis Office Visit 02/20/2011 3:30p [facility] Sean Hancock M.D. 753.13 Polycystic Kidney Disease, Adult 401.0 Hypertension Maligna nt Essential 588.81 Hyperparathyroidism, Renal 285.21 Anemia In Chronic Ki dney Disease Office Visit 08/17/2010 10:40a [facility] Sean Hancock M.D. 753.13 Polycystic Kidney Disease, Adult 585.4 Chronic Kidney Disea se Stage 4 401.0 Hypertension Maligna nt Essential 588.81 Hyperparathyroidism, Renal Office Visit 05/02/2010 9:40a [facility] Sean sharp M.D. 753.13 Polycystic Kidney [...] N18.6 End stage renal disease Maria Luisa Hanccok M.D. 03/30/2016 Z99.2 Dependence on renal dialysis Sean Hancock M.D. 02/29/2016 N18.6 End stage renal disease Maria Luisa Hancock M.D. 02/29/2016 Z99.2 Dependence on renal dialysis Sean Hancock M.D. 01/29/2016 N18.6 End stage renal disease Maria Luisa Hancock M.D. 01/29/2016 Z99.2 Dependence on renal dialysis Sean Hancock M.D. 12/29/2015 N18.6 End stage renal disease Maria Liusa Hancock M.D. 12/29/2015 Z99.2 Dependence on renal dialysis Sean Hancock M.D. 11/29/2015 N18.6 End stage renal disease Maria Luisa Hancock M.D. 11/29/2015 Z99.2 Dependence on renal dialysis Sean Hancock M.D. 10/29/2015 N18.6 End stage renal disease Maria Luisa Hancock M.D. 10/29/2015 Z99.2 Dependence on renal dialysis Sean Hacnock M.D. 09/29/2015 N18.6 End stage renal disease Maria Luisa Hancock M.D. 09/29/2015 Z99.2 Dependence on renal dialysis Sean Hancock M.D. 08/29/2015 N18.6 End stage renal disease Maria Luisa Hancock M.D. 08/29/2015 Z99.2 Dependence on renal dialysis Sean Hancock M.D. 07/31/2015 N18.6 End stage renal [...] Renal Failure/End St age Renal Disease Aurora Hacnock M.D. 11/27/2014 789.00 Pain Abdominal Unspec Site [...] M.D. 05/30/2011 V45.11 Renal Dialysis Status Sean Hanocck M.D. 05/02/2011 585.6 End Stage Renal Disease [...] 02/22/2011 585.6 End Stage Renal Disease Bryce son Scott Smith 02/22/2011 753.13 Polycystic Kidne y [...] Sean pitts M.D. 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 09/05/2009 585.4 Chronic Kidney Disease Stage IV Severe Sean Hancock M.D. 09/05/2009 401.0 Hypertension Malignant Sean Hancock M.D. 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
--- OUTSIDE RECORDS SUMMARY | 2025-05-10 12:12 | XMS_ITS | CCD ---
Author Organization [facility] ion Partnership [facility] Care Team Providers Care Office Manager Name Role Phone UNKNOWN, PROVIDER Unavailable Unavailable [...] UNKNOWN, PROVIDER Unavailable Unavailable Transplant, Coordinator Unavailable [phone] Ruben, Geovanna A Unavailable FOSTERARI Unavailable [...] NARGIS Unavailable Unavailable JONES, NARGIS Unavailable Unavailable Eduardubachaz, Geovanna A Primary Care Unavailable Familia Stringer Attending Unavailable Transplant, Coordinator Unavailable [phone] Ruben INSURANCE SALES SPECIALIST-CYBER DEFENSE FORENSICS ANALYST, Geovanna A Primary Care Provide r Transplant, Coordinator Unavailable Transplant, Coordinator Unavailable Trubachik INSURANCE SALES SPECIALIST-[facility], [facility] A Primary Care Provide r Trubachik CYBER DEFENSE FORENSICS ANALYST, [facility] Shu Primary Care Provider Trubachik INSURANCE SALES SPECIALIST-[facility], Geovanna A Primary Care Provide r JAYSHREE VILCHIS Attending Unavailable TRUBACHIK, GEOVANNA SUH Primary Care Unavailable JAYSHREE VILCHIS Attending Unavailable TRUBACHIK, GEOVANNA SHU Primary Care Unavailable CHARLEY PASTRANA Attending Unavailable TRUBACHIK, GEOVANNA SHU Primary Care Unavailable TRUBACHIK, GEOVANNA SHU Primary Care Unavailable MARY MOREIRA Attending Unavailable Transplant, Coordinator Unavailable [phone] Trubachik INSURANCE SALES SPECIALIST-[facility], [facility] A Primary Care Provide r Transplant, Coordinator Unavailable Trubachik INSURANCE SALES SPECIALIST-[facility], [facility] A Primary Care Provide r Transplant, Coordinator Unavailable Trubachik INSURANCE SALES SPECIALIST-[facility], [facility] Primary Care Provider Unavailable Transplant, Coordinator Unavailable Rodrigo Saravia MD Primary Care Provider [phone] Rodrigo Saravia MD Primary Care Provider [phone] TRUBACHIK, GEOVANNA Primary Care Unavailable SELF, [...] Unavailabl e TYCHONIEVICH, LIZA Referring Unavailabl e TYCHOGERALDINE, LIZA Attending Unavailabl ILIA Bennett Attending Unavailable TRUBACHIK, GEOVANNA Primary Care Unavailable TRUBACHIK, GEOVANNA Primary Care Unavailable BARK, JAVAN E Referring Unavailable BARK, JAVAN E Attending Unavailable TRUBACHIK, GEOVANNA Primary Care Unavailable BARK, JAVAN E Referring Unavailable BARK, JAVAN E Attending Unavailable Rohrbacher TAMY, [facility] Primary Care Provider Roberto Carlos Davey MD Unavailable Rohrbacher INSURANCE SALES SPECIALIST, [facility] Primary Care Provider Rohrbacher INSURANCE SALES SPECIALIST, Cayla Attending Provider [phone] ROHRBACHER, CAYLA Primary Care Unavailable ROHRBACHER, CAYLA Referring Unavailable LIZA PENN Attending Unavaila ble ROHRBACHER, CAYLA Primary Care Unavailable SELF, SELF Referring Unavailable GRISELDA GALLEGOS Attending Unavailable LINDARBACHER, CAYLA Primary Care Unavailable LIZA PENN Attending Unavaila ble SELF, SELF Referring Unavailable ROHRBACHER, CAYLA Primary Care Unavailable SELF, SELF Referring Unavailable SAM WEISS Attending Unavailable SWEIGERT, ISABELL E Referring Unavailable SWEIGERT, ISABELL E Attending Unavailable ROHRBACHER, [facility] Primary Care Unavailable GRISELDA GALLEGOS Referring Unavailable ROHRBACHER, CAYLA Primary Care Unavailable GRISELDA GALLEGOS Attending Unavailable SELF, SELF Referring Unavailable ROHRBACHER, CAYLA Primary Care Unavailable ROHRBACHER, CAYLA Primary Care Unavailable GRISELDA GALLEGOS Attending Unavailable SELF, SELF Referring Unavailable ROHRBACHER, CAYLA Referring Unavailable ROHRBACHER, CAYLA Primary Care Unavailable CAYLA GONZALEZ Attending Unavailable ROHRBACHER, CAYLA Primary Care Unavailable ROHRBACHER, CAYLA Referring Unavailable BINA SHEETS Attending Unavailable ROHRBACHER, [facility] Primary Care Unavailable ROHRBACHER, CAYLA Referring Unavailable LIZA PENN Attending Unavaila GRISELDA Dimas Attending Unavailable GRISELDA GALLEGOS Admitting Unavailable CONSULT, NEPHROLOGY - TRANSPLANT (MED) Consultin g Unavailable KHAVARI, FERESHTE Primary Care Unavailable ROHRBACHER, CAYLA Primary Care Unavailable ROHRBACHER, CAYLA Referring Unavailable SALBADOR LAWRENCE Attending Unavailable CAYLA VELAZQUEZ Primary Care Unavailable LIZA PENN Attending Unavaila ble SELF, SELF Referring Unavailable Allergies Allergy ClassificationReported Allergen(s)Allergy TypeDate of OnsetReaction(s) Facility (20 sources)*SeasonalPropensity to adverse reactions to -[id number] (20 sources)Non-steroidal anti-inflammatory agentPropensity to adverse reactions to [id number] Medications Current Medications MedicationDrug Class(es)DatesSig (Normalized)Sig (Original)acyclovir 0.05 mg/mg topical ointment (5 sources)Herpesvirus Nucleoside Analog DNA Polymerase Inhibitor, Herpes Simplex Virus Nucleoside Analog DNA Polymerase Inhibitor, Herpes Zoster Virus Nucleoside Analog DNA Polymerase InhibitorStart: 79-82-1955jkeufximg 5 % Ointment Apply topically to all lesions 6 times daily X 7 days. 1 Tube 0 03/28/2018 [id number] 200 actuat albuterol 0.09 mg/actuat metered dose inhaler (5 sources)beta2-Adrenergic AgonistStart: 08-30-2022 End: 60-62-7313gxmk 2 puff(s) by inhalation every six hours as needed for wheezingalbuterol 90 mcg/actuation inhaler Indications: Viral URI Inhale 2 (two) puffs every 6 (six) hours as needed for wheezing . 6.7 g 0 08/30/2022 Active alclometasone dipropionate 0.5 mg/ml topical cream (20 sources)CorticosteroidStart: 74-53-5773Ngabgkzoxwoih 0.05 % cream Active 1 APPLIC TOPICAL Twice daily February 24, 2024 12:00am Complies with drug therapy Start: 98-88-8195Nrpfkhxlbzdct Dipropionate 0.05 % Cream Indications: Seborrheic dermatitis Apply 0.05 mg topically As directed as needed. Apply to affected area 1-2 times daily when skin flared 60 g 1 04/24/2024 ActiveStart: 04-01-2020 End: 22-17-3862Reqqxrpwhghdm Dipropionate 0.05 % Cream Indications: Seborrheic dermatitis Apply to affected area 1-2 times daily when skin flared 45 g 3 04/01/2020 12/04/2023 DiscontinuedStart: 29-19-7694ymmymqrmisshk (ACLOVATE) 0.05 % cream Apply to affected area 1-2 times daily when skin flared 0 04/01/2020 Activeamoxicillin 875 mg / clavulanate 125 mg oral tablet (3 sources)Penicillin-class AntibacterialStart: 60-66-9105agvj 1 tablet by mouth twice dailyAmoxicillin-clavulanate 875-125 MG tablet Take 1 tablet by mouth Twice daily. 0 10/26/2022 Activeasenapine 2.5 mg sublingual tablet (5 sources)Atypical AntipsychoticStart: 91-31-3617Qooathhtw Maleate (SAPHRIS) 2.5 MG Tab SL 2.5 mg at bedtime. 01/14/2018 Activeaspirin 81 mg delayed release oral tablet (20 sources)Platelet Aggregation Inhibitor, Nonsteroidal Anti-inflammatory Drug Start: 36-63-0069fggo 1 tablet by mouth once dailyAspirin 81 mg Tablet,Delayed Release (Dr/Ec) Active 81 MG PO Daily August 06, 2018 1:00am Complies with drug therapyStart: 10-14-2017 End: 29-71-8650ubnxhgi 81 MG Chew Tab chewable tablet Chew 1 tablet daily every morning. Take this 1 to 2 hours after taking sucralfate slurry. 30 tablet 11 03/27/2024 Activeazithromycin 250 mg oral tablet (2 sources)Macrolide AntimicrobialStart: 09-02-2022 End: 95-51-7277qkqv 2 tablets by mouth once daily, then take 1 tablet by mouth once dailyazithromycin (ZITHROMAX) 250 MG tablet Indications: Sinusitis, unspecified chronicity, unspecified location Take 2 (two) tablets (500 mg total) by mouth daily for 1 day, THEN 1 (one) tablet (250 mg total) daily for 4 days. 6 tablet 0 09/02/2022 09/07/2022 Activebenzonatate 100 mg oral capsule (4 sources)Non-narcotic AntitussiveStart: 08-30-2022 End: 22-58-7281dywh 1 capsule by mouth three times daily as needed for cough benzonatate (TESSALON) 100 MG capsule Indications: Viral URI Take 1 (one) capsule (100 mg total) bymouth 3 (three) times a day as needed for cough . 20 capsule 0 08/30/2022 09/06/2022 ActivecarBAMazepine 100 mg chewable tablet (20 sources)Mood StabilizerStart: 04-21-2021 End: 55-32-3312vwoWLPagwupbg 100 MG Chew Tab Take 2 tablets daily in the morning and 3 tablets daily in the evening 12/04/2023 ActiveStart: 12-11-0416kupc 1 tablet by mouth once daily at bedtimeCarbamazepine 100 mg Tablet,Chewable Active 300 MG PO Daily at bedtime August 06, 2018 1:00am Complies with drug therapy Start: 08-06-2018 End: 30-07-3571cpvh 200 mg by mouth once daily in the mg, Oral, DAILY EVERY MORNING, First dose (after last modification) on Sat03/24/24 at 0900, Unti l DiscontinuedStart: 08-06-2018 End: 26-14-5058mfti 300 mg by mouth once wtsmi722 mg, Oral, Nightly, First dose on Sat03/23/24 at 2100, Until DiscontinuedStart: 67-09-0654tknEXVadxefkf 100 MG Chew Tab Take 200 mg in the morning & take 200 mg tab along with a 100 mg tab for a total dose of 300 mg in the evening. 14 tablet 0 12/30/2017 ActiveStart: 38-54-6196zinWMSoxvuxad 200 MG Tab Take 200 mg in the morning & take 200 mg tab along with a 100 mg tab for a total dose of 300 mg in the evening. 28 tablet 0 12/30/2017 Activecetirizine hydrochloride 10 mg oral tablet (20 sources)Histamine-1 Receptor AntagonistStart: 08-06-2018 End: 22-15-9136xahk 1 tablet by mouth once dailyCetirizine 10 mg tablet Active 10 MG PO Daily 90 90 February 25, 2025 9:27am Complies with drug therapyStart: 02-11-2018 End: 72-45-7766fpiv 1 tablet by mouth once dailycetirizine 10 MG Tab tablet Take 1 tablet by mouth daily. 30 tablet 5 05/20/2018 ActiveCpap (Continuous Positive Airway Pressure) (2 sources)Start: 62-84-3541Eimf (Continuous Positive Airway Pressure) Active 0 .Route February 24, 2024 12:00am As directedStart: 55-26-3161Ksdi (Continuous Positive Airway Pressure) Active 0 .ROUTE February 24, 2024 12:00am As directed Cpap (Continuous Positive Airway Pressure) unit (1 source)Start: 56-85-6754Srig (Continuous Positive Airway Pressure) unit Active 0 .Route February 24, 2024 12:00am As directedfluticasone propionate 0.05 mg/actuat metered dose nasal spray (5 sources)CorticosteroidStart: 59-74-6563denmminenll 50 MCG/ACT Suspension nasal spray 2 sprays by Nasal route daily. 1 Bottle 2 04/15/2017 Active ketoconazole 20 mg/ml topical cream (20 sources)Azole AntifungalStart: 80-09-2016Zjxkdduycrnq 2 % cream Active 1 APPLIC TOPICAL Daily February 24, 2024 12:00am Complies with drug therapyStart: 22-58-9009Tdjjqmnoskds 2 % Cream cream Indications: Seborrheic dermatitis Apply 1 Application topically dailyas needed. Apply to affected area up to twice daily --> okay to use every day without breaks if needed 60 g 1 04/24/2024 Active Start: 04-01-2020 End: 19-11-4452djsixwwieyiu 2 % Cream cream Indications: Seborrheic dermatitis Apply to affected area up to twice daily --> okay to use every day without breaks if needed 30 g 3 04/01/2020 12/04/2023 DiscontinuedStart: 04-01-2020 ketoconazole (NIZORAL) 2 % cream Apply to affected area up to twice daily --> okay to use every day without breaks if needed 0 04/01/2020 ActiveStart: 70-38-7585bvwhxcqjepgm 2 % Shampoo shampoo Apply 1 Application topically 3 times weekly. 120 mL 5 11/05/2017 ActiveMagnesium Oxide (20 sources)Start: 03-51-2543urgj 1 tablet by mouth twice dailymagnesium oxide 400 (241.3 Mg) MG tablet Take 1 tablet by mouth 2 times daily. 180 tablet 3 09/18/2021 ActiveStart: 09-15-2020 End: 50-23-6378kwpd 1 tablet by mouth twice dailymagnesium oxide 400 (241.3 Mg) MG tablet Take 1 tablet by mouth 2 times daily. 180 tablet 3 09/18/2021 Active Start: 96-16-9469oczj 1 tablet by mouth twice dailyMagnesium Oxide 400 mg (241.3 mg magnesium) Tablet Active 400 MG PO Twice daily August 06, 2018 1:00am Complies with drug therapyStart: 13-02-4961ajcf 1 tablet by mouth twice daily magnesium oxide 400 (241.3 Mg) MG Tab tablet Take 1 tablet by mouth 2 times daily. 60 tablet 11 02/27/2018 ActivemethylPREDNISolone 4 mg oral tablet (1 source)CorticosteroidStart: 55-57-2402cycz 1 tablet by mouth once Methylprednisolone (Medrol (Scooter)) 4 mg tablets,dose pack Active 0 PO per package directions February 25, 2025 12:00am PO PER PKG DIR Complies with drug therapymontelukast 10 mg oral tablet (20 sources)Leukotriene Receptor AntagonistStart: 08-06-2018 End: 36-08-6195ugwe 1 tablet by mouth once dailyMontelukast 10 mg tablet Active 10 MG PO Daily 90 90 February 25, 2025 9:28am Complies with drug therapyStart: 94-97-4656jvvq 1 tablet by mouth once dailymontelukast 10 MG Tab tablet Take 1 tablet by mouth daily. 30 tablet 5 03/11/2018 Activemulti (3 sources)Start: 30-26-2790ximke Active PO February 24, 2024 12:00am Complies with drug therapyStart: 02-41-7160aaqaq Active PO February 24, 2024 12:00am ofloxacin 3 mg/ml ophthalmic solution (4 sources)Quinolone AntimicrobialStart: 04-21-2022 End: 15-64-0280qbuc 1 drop(s) into the eye(s) four times dailyofloxacin 0.3 % ophthalmic solution Place 1 drop in right eye 4 times daily. 5 mL 0 04/21/2022 Activeondansetron 4 mg oral tablet (12 sources)Serotonin-3 Receptor AntagonistStart: 52-86-6460yujf 1 tablet by mouth every six hoursOndansetron Hcl 4 mg tablet Active 4 MG PO Every 6 hours April 07, 2024 12:00am Complies with drug therapyStart: 03-27-2024 End: 46-12-9814Oxguynfvxtz 4 MG tablet Indications: Nausea Take 1 tablet by mouth 3 times daily for 14 days. Take scheduled for the first 7 days, then take as needed 42 tablet 03/27/2024 04/10/2024 ActiveStart: 03-23-2024 End: 41-40-4622Vwiqhrndvjj (ZOFRAN) tablet 4 mgStart: 75-56-5937ipxc 1 tablet by mouth every eight hours as neededondansetron 4 MG Tab take 1 tablet by mouth every 8 hours as needed for Nausea / Vomiting or Nausea.. 90 tablet 1 02/22/2017 Activepantoprazole 40 mg delayed release oral tablet (20 sources)Proton Pump InhibitorStart: 97-13-8441Pyjhqdysiygy Active MG PO February 24, 2024 12:00amStart: 12-31-2023 End: 64-35-0017Kmmprgtvodru 40 mg tablet,delayed release (DR/EC) Active MG PO February 24, 2024 12:00am Complies with drug therapyStart: 60-74-2763lovs 1 tablet by mouth twice dailyPantoprazole (Protonix) [address] tablet DR Take 1 tablet by mouth 2 times daily. 180 tablet 2 03/07/2023 ActiveStart: 12-10-2022 take 1 tablet by mouth twice dailyPantoprazole (Protonix) [address] tablet DR Take 1 tablet by mouth 2 times daily. 180 tablet 0 12/10/2022 Activepolymyxin b 87455 unt/ml / trimethoprim 1 mg/ml ophthalmic solution (3 sources)Dihydrofolate Reductase Inhibitor Antibacterial, Polymyxin-class AntibacterialStart: 09-02-2022 End: 84-96-0271vrwa 1 drop(s) into the eye(s) every six hourstrimethoprim- polymyxin b (POLYTRIM) 10,000 unit- 1 mg/mL Drop ophthalmic solution Indications: Acute conjunctivitis of both eyes, unspecified acute conjunctivitis type Apply 1 (one) drop to eye every6 (six) hours for 7 days . 10 mL 0 09/02/2022 09/03/2022 DiscontinuedStart: 03-02-2022 End: 16-42-2020pcna 1 drop(s) into the eye(s) every four hourspolymyxin b- trimethoprim 25359-7.1 UNIT/ML-% Solution ophthalmic solution Place 1 drop in both eyesevery 4 hours for 7 days. 10 mL 0 03/02/2022 03/09/2022 Active sildenafil 100 mg oral tablet (20 sources)Phosphodiesterase 5 InhibitorStart: 10-09-2021 End: 65-70-7486Tbooybdyhj 100 mg tablet Active 100 MG PO Daily as needed February 24, 2024 12:00am administer 30 minutes to 4 hours before activity Complies with drug therapyStart: 74-99-4390rimqissbbJ (VIAGRA) 100 MG tablet Take 0.5 (one-half) tablet to 1 (one) tablet (50-100 mg total) bymouth as needed . 0 10/09/2021 Activesucralfate 1000 mg oral tablet (14 sources)Aluminum ComplexStart: 03-23-2024 End: 31-71-9394kkjc 1 tablet by mouth twice dailySucralfate (Carafate) 1 gram tablet Active 1 GM PO Twice daily April 07, 2024 12:00am Complies with drug therapytacrolimus 1 mg oral capsule (20 sources)Calcineurin Inhibitor ImmunosuppressantStart: 70-45-6675ouvq 5 capsules by mouth every twelve hoursTacrolimus 1 mg capsule Active 5 MG PO Q12H February 25, 2025 9:00am Complies with drug therapyStart: 04-07-2024 End: 92-86-1029khua 4 capsules by mouth every twelve hoursTacrolimus 1 mg capsule Discontinued 4 MG PO Q12H April 07, 2024 1:59pm February 25, 2025 9:00amStart: 61-22-2925vgdp 4 mg by mouth every twelve hoursTacrolimus Active 4 MG PO Q12H April 07, 2024 1:59pmStart: 03-27-2024 End: 88-68-5551plxx 4 mg by mouth every twelve hours4 mg, Oral, EVERY 12 HOURS, First dose (after last modification) on Sat03/27/24 at 2100, Until Discontinued, Do not split, break, crush, or open doses of this medication. Contact pharmacy if altered dose or route needed. Do not split, break, crush, or open doses of this medication. Contact pharmacyif altered dose or route needed.Start: 03-25-2024 End: 56-67-3447qkjn 5 mg by mouth every twelve hours5 mg, Oral, EVERY 12 HOURS, First dose on Sat03/25/24 at 2100, Until Discontinued, Do not split, break, crush, or open doses of this medication. Contact pharmacy if altered dose or route needed. Do not split, break, crush, or open doses of this medication. Contact pharmacy if altered dose or route needed.Start: 03-23-2024 End: mg, Oral, EVERY 12 HOURS, First dose on Sat03/23/24 at 2100, Until Discontinued, Caution check route of administration. For sublingual administration, place liquid under tongue and allow absorption.Start: 05-18-2021 End: 33-76-1986nzcv 1 capsule by mouth twice dailyTacrolimus (PROGRAF) 1 MG capsule Take 6 capsules by mouth 2 times daily. 12/04/2023 ActiveStart: 08-06-2018 End: 99-41-3508reoc 6 mg by mouth every twelve hoursTacrolimus 1 mg Capsule Discontinued 6 MG PO Q12H August 06, 2018 1:00am April 07, 2024 2:01pm Start: 08-06-2018 End: 09-02-7145ocfo 6 mg by mouth every twelve hoursTacrolimus Discontinued 6 MG PO Q12H August 06, 2018 1:00am April 07, 2024 2:01pmStart: 31-22-8086uiyt 6 capsules by mouth every twelve hours, then take 1 capsule by mouthtacrolimus (generic) 1 MG Cap capsule Take 6 capsules by mouth every 12 hours. Diagnosis Code: ICD 9:V42.0, ICD 10:Z94.0 - Kidney transplant 09/25/2016 360 capsule 11 02/27/2018 Activetamsulosin hydrochloride 0.4 mg oral capsule (7 sources)alpha-Adrenergic BlockerStart: 31-49-7221gstz 1 capsule by mouth once dailyTamsulosin HCl 0.4 MG capsule Take 1 capsule by mouth daily. 90 capsule 3 04/21/2024 Activeterbinafine hydrochloride 10 mg/ml topical cream (20 sources)Allylamine AntifungalStart: 43-16-6056Pyvvfczkmox 1 % Cream cream Indications: Tinea pedis, unspecified laterality Place 1 Application onskin As directed as needed. Apply to affected area (feet) twice daily 12/04/2023 Active Start: 04-01-2020 End: 41-76-6791klnwqdvbadd 1 % Cream cream Indications: Tinea pedis, unspecified laterality Apply to affected area(feet) twice daily 36 g 3 04/01/2020 12/04/2023 Discontinuedtestosterone cypionate 200 mg/ml injectable solution (9 sources)AndrogenStart: 06-70-3352Hzfkwkpyfdpp Cypionate 200 MG/ML Solution Indications: Low testosterone in male Inject 200 mg as directed every 28 days. 5 mL 1 03/12/2022 ActiveStart: 12-50-7832qlermolptyap cypionate (DEPOTESTOTERONE CYPIONATE) 200 mg/mL injection Inject 1 mL (200 mg total) as directed every 28 days . 0 03/12/2022 ActiveStart: 37-07-8952Fewimqcuyybh 1.62 % Gel Indications: Low testosterone in male 40.5 mg applied once daily in the morning to the shoulder and upper arms 75 g 0 03/02/2022 Active Completed/Discontinued Medications MedicationDrug Class(es)DatesSig (Normalized)Sig (Original)acetaminophen 325 mg oral tablet (13 sources)Start: 03-23-2024 End: 79-19-6846ifnk 1 tablet by mouth every six nriqo290 mg, Oral, EVERY 6 HOURS NON-STANDARD, First dose on Sat03/23/24 at 1530, Until Discontinued, Administer if tolerating PO. Do not exceed 4000 mg in 24 hours., Post-op/Post-ProcStart: 03-23-2024 End: 95-62-3966wsyd 4000 mg by mouth every twenty-four rtxit837 mg, Oral, ONCE, 1 dose, On Sat03/23/24 at 0845, Maximum dose of acetaminophen is 4000 mg from al l sources in 24 hours., Pre-op/Pre-ProcStart: 03-11-2023 End: 00-27-0582Tafqxbnraonzm (TYLENOL) tablet 650 mgStart: 01-25-2022 End: 79-28-5811clff 3 tablets by mouth every eight hoursacetaminophen 325 MG tablet Take 3 tablets by mouth every 8 hours for 5 days. 45 tablet 0 01/25/2022 12/10/2022 Discontinued (Therapy completed)Ampicillin-Sulbactam Sodium (UNASYN) 3 g in sodium chloride 0.9% (MB PLUS) 100 mL (total volume) IVPB (1 source)Start: 03-27-2024 End: g, Intravenous, Administer over 30 Minutes, SHIFT SUPERVISOR TO PROCEDURE, 1 dose, Starting on Sat03/27/24at 1017, Until Sat03/27/24 at 1501, Surgical Prophylaxis, Initiate antibiotic administration 30-60 minutes prior to surgical incision and complete administration prior to surgical incision., Pre-op/Pre-ProcAprepitant (APONVIE) injection 32 mg (1 source)Start: 03-23-2024 End: mg, Intravenous, ONCE, 1 dose, On Sat03/23/24 at 0845, Give by rapid IV push over 30 seconds.bacitracin 0.5 unt/mg / neomycin 0.0035 mg/mg / polymyxin b 10 unt/mg topical ointment (1 source)Aminoglycoside Antibacterial, Polymyxin-class AntibacterialStart: 10-24-2022 End: 60-20-3776fqzycmdb-bacitracin-polymyxin (NEOSPORIN) 400-5-5000 ointment 1 Application.calcium chloride 0.0014 meq/ml / potassium chloride 0.004 meq/ml / sodium chloride 0.103 meq/ml / sodium lactate 0.028 meq/ml injectable solution (3 sources)Start: 03-23-2024 End: 64-69-8286Glbghttnlcp, at 125 mL/hr, CONTINUOUS, Starting on Sat03/27/24 at 0000, Until Sat03/28/24 at 1526calcium citrate 1040 mg oral tablet (20 sources)Start: 02-24-2024 End: 41-78-5534eqoc 2 tablets by mouth once dailyCalcium Citrate 250 mg calcium tablet Discontinued 500 MG PO Daily February 24, 2024 12:00am April 07, 2024 2:01pmStart: 02-24-2024 End: 10-05-1954llfu 500 mg by mouth once dailyCalcium Citrate Discontinued 500 MG PO Daily February 24, 2024 12:00am April 07, 2024 2:01pm End: 76-67-3560wvqw 600 mg by mouth twice dailyCALCIUM CITRATE PO Take 600 mg by mouth 2 times daily. 03/27/2024 Discontinued (Stop Taking at Discharge)take 600 mg by mouth twice dailyCALCIUM CITRATE PO Take 600 mg by mouth 2 times daily. Activetake 1200 mg by mouth twice dailyCALCIUM CITRATE PO Take 1,200 mg by mouth 2 times daily. Activetake 1200 mg by mouth once dailyCALCIUM CITRATE PO Take 1,200 mg by mouth daily. 0 ActivecefTRIAXone 1000 mg injection (2 sources)Cephalosporin AntibacterialStart: 10-26-2022 End: 12-84-9241bcfJXJRZjde (ROCEPHIN) injection 1,000 mgStart: 10-26-2022 End: 03-68-8635udbKDFCHaek (ROCEPHIN) injection 1,000 mgchlorthalidone 25 mg oral tablet (19 sources)Thiazide-like DiureticStart: 02-24-2024 End: 54-54-0356zgdo 1 tablet by mouth once dailyChlorthalidone 25 mg tablet Discontinued 25 MG PO Daily February 24, 2024 12:00am April 0742:00pm cyclobenzaprine hydrochloride 10 mg oral tablet (1 source)Muscle RelaxantStart: 03-23-2024 End: 71-25-8191qmsx 5 mg by mouth three times daily as needed for pain5 mg, Oral, 3 TIMES DAILY NEEDED, Starting on Sat03/23/24 at 1459, Until Sat03/28/24 at 1527, Mild Pain, Post-op/Post-Proc0.4 ml enoxaparin sodium 100 mg/ml prefilled syringe (2 sources)Low Molecular Weight HeparinStart: 03-24-2024 End: 90-58-7288zbadnt 40 mg by subcutaneous injection every twenty-four hours40 mg, Subcutaneous, EVERY 24 HOURS, First dose (after last modification) on Sat03/28/24 at 0900, Until Discontinued, For SUBCUTANEOUS route ONLY: alternate injection sites between left and right abdominal wall, pinching location and avoiding area around navel. If unable to use abdominal sites, mayuse the front or side of thighs., Indications: DVT/PE prophylaxisescitalopram 10 mg oral tablet (20 sources)Serotonin Reuptake InhibitorStart: 03-24-2024 End: 43-56-1657cwqy 20 mg by mouth once daily in the rzujzsb06 mg, Oral, DAILY EVERY MORNING, First dose on Sat03/24/24 at 0900, Until DiscontinuedStart: 99-73-3118fhfo 1 tablet by mouth once dailyEscitalopram Oxalate 20 mg Tablet Active 20 MG PO Daily August 06, 2018 1:00am Complies with drug therapyStart: 26-10-4702konf 1 tablet by mouth at bedtimeescitalopram 20 MG Tab tablet Take 20 mg by mouth at bedtime. 04/29/2015 Activefamotidine 20 mg oral tablet (1 source)Histamine-2 Receptor AntagonistStart: 04-21-2021 End: 40-32-2852sffp 1 tablet by mouth twice dailyfamotidine 20 MG tablet Take 1 tablet by mouth 2 times daily. 60 tablet 5 04/21/2021 09/18/2021 Discontinued Flintstones Complete 18 MG Chew Tab (11 sources)Start: 13-63-6851Tdgqtskottx Complete 18 MG Chew Tab Chew 1 tablet 2 times daily. 03/27/2024 ActiveFurosemide (1 source)Loop DiureticStart: 03-24-2024 End: 50-05-406977 mg, Intravenous, ONCE, 1 dose, On Sat03/24/24 at 0615, Administer by slow IV push at a rate not exceeding 40mg/minhaloperidol 0.5 mg oral tablet (1 source)Typical AntipsychoticStart: 03-23-2024 End: 59-16-5477wcwb 1 tablet by mouth every six hours as needed0.5 mg, Oral, EVERY 6 HOURS NEEDED, Starting on Sat03/23/24 at 1459, Until 03/28/24 at 1526, nausea/vomiting 2nd line, Post-op/Post-Proc1 ml heparin sodium, porcine 5000 unt/ml prefilled syringe (1 source)Unfractionated Heparin, Anti-coagulantStart: 03-23-2024 End: 45,000 Units, Subcutaneous, PRE-OP, 1 dose, On Sat03/23/24 at 0845, Pre-op/Pre-Proclosartan potassium 25 mg oral tablet (20 sources)Angiotensin 2 Receptor BlockerStart: 09-19-2022 End: 08-37-3737vncm 1 tablet by mouth once dailyLosartan 25 mg tablet Discontinued 25 MG PO Daily February 24, 2024 12:00am April 07, 2024 2:00pm Start: 09-15-2020 End: 33-21-2028blda 1 tablet by mouth once dailyLosartan 25 MG tablet Take 1 tablet by mouth daily. 90 tablet 3 09/19/2022 ActiveMultiple Vitamins-Minerals (Multivitamins) Chew Tab (20 sources)Start: 08-12-2019 End: 72-49-7508Ffirvvef Vitamins-Minerals (Multivitamins) Chew Tab Indications: S/P laparoscopic sleeve gastrectomy Chew 2 tablets daily. May take pediatric or adult chalky chewable vitamin; double the recommended daily dose. 08/12/2019 03/27/2024 Discontinued (Stop Taking at Discharge)Start: 19-78-2735Zltagdmj Vitamins-Minerals (Multivitamins) Chew Tab Indications: S/P laparoscopic sleeve gastrectomy Chew 2 tablets daily. May take pediatric or adult chalky chewable vitamin; double the recommended daily dose. 08/12/2019 ActiveStart: 08-12-2019 Multiple Vitamins-Minerals (Multivitamins) Chew Tab Indications: S/P laparoscopic sleeve gastrectomy Chew 2 tablets daily. May take pediatric or adult chalky chewable vitamin; double the recommended daily dose. 0 08/12/2019 Activemycophenolate mofetil 200 mg/ml oral suspension (10 sources)Start: 03-27-2024 End: 25-69-3022Orcjluwpwbjeu 200 MG/ML Recon Susp oral suspension Take 3.75 mL by mouth 2 times daily, at 0800 [id number] for 14 days. Can go back to taking Myfortic after 14 days. 105 mL 03/27/2024 04/23/2024 Discontinued (Therapy completed)Start: 03-23-2024 End: 93-44-4420673 mg, Oral, 2 TIMES DAILY (Solid Organ Transplant), First dose on 03/23/24 at 2000, Until Discontinued, May be administered via a nasogastric tube (minimum 8 Spanish, 1.7 mm interior diameter); oral suspension should not be mixed with other medications. Storage Change-Refrigeration no longer requiredmycophenolic acid 180 mg delayed release oral tablet (20 sources)Antimetabolite ImmunosuppressantStart: 36-68-0816buax 3 tablets by mouth every twelve hoursmycophenolate sodium (MYFORTIC) 180 MG EC tablet Take 3 (three) tablets (540 mg total) by mouth every 12 (twelve) hours . 0 09/18/2021 ActiveStart: 05-18-2021 End: 48-77-9671vmvk 3 tablets by mouth every twelve hoursmycophenolate sodium (MYFORTIC) [address] Take 3 tablets by mouth every 12 hours. 560 tablet 3 0 09/18/2021 03/27/2024 Discontinued (Stop Taking at Discharge)Start: 08-06-2018 take 2 tablets by mouth twice dailyMycophenolate Sodium 180 mg Tablet,Delayed Release (Dr/Ec) Active 360 MG PO Twice daily August 06, 2018 1:00am Complies with drug therapyStart: 91-79-6049jbci 360 mg by mouth twice dailyMycophenolate Sodium Active 360 MG PO Twice daily August 06, 2018 1:00amStart: 09-18-2017 take 2 tablets by mouth every twelve hoursmycophenolate sodium (generic) [address] Take 2 tablets by mouth every 12 hours. 120 tablet 11 09/18/2017 Active OLANZapine 5 mg oral tablet (20 sources)Atypical AntipsychoticStart: 03-23-2024 End: 02-35-9032imli 2.5 mg by mouth once daily at bedtime2.5 mg, Oral, DAILY AT BEDTIME, First dose on Sat03/23/24 at 2100, Until DiscontinuedStart: 02-24-2024 take 1 tablet by mouth once dailyOlanzapine 2.5 mg tablet Active 2.5 MG PO Daily February 24, 2024 12:00am Complies with drug therapyStart: 04-21-2021 End: 43-85-4350vzdk 1 tablet by mouth at bedtimeOLANZapine 2.5 MG tablet Take 1 tablet by mouth at bedtime. 12/04/2023 Activeomeprazole 40 mg delayed release oral capsule (20 sources)Proton Pump InhibitorStart: 11-09-2022 End: 46-28-5382lofg 1 capsule by mouth twice dailyomeprazole [address] capsule Indications: Gastroesophageal reflux disease without esophagitis , S/P laparoscopic sleeve gastrectomy Take 1 capsule by mouth 2 times daily. 180 capsule 3 11/09/2022 12/10/2022 Discontinued (Alternate therapy)Start: 02-23-2022 End: 35-44-6578rkjb 1 capsule by mouth once dailyomeprazole [address] capsule Take 1 capsule by mouth daily. 90 capsule 0 09/05/2022 10/29/2022 Discontinued (Therapy completed)Start: 08-17-2021 End: 60-06-4426teyx 1 capsule by mouth once dailyomeprazole [address] capsule Indications: Gastroesophageal reflux disease without esophagitis , S/P laparoscopic sleeve gastrectomy Take 1 capsule by mouth daily. 90 capsule 0 11/03/2021 ActiveStart: 08-06-2018 End: 81-20-5812kmnb 2 capsules by mouth once dailyOmeprazole 20 mg Capsule,Delayed Release(Dr/Ec) Discontinued 40 MG PO Daily August 06, 2018 1:00am February 24, 2024 9:34amStart: 08-06-2018 End: 79-45-2343rpek 40 mg by mouth once dailyOmeprazole Discontinued 40 MG PO Daily August 06, 2018 1:00am February 24, 2024 9:34amStart: 85-20-5984eupu 1 tablet by mouth every twelve hoursOmeprazole [address] take 20 mg by mouth every 12 hours. 04/29/2015 ActiveoxyCODONE hydrochloride 5 mg oral tablet (3 sources)Opioid AgonistStart: 03-25-2024 End: 40-82-6313zeui 1 tablet by mouth every six hours as needed5 mg, Oral, EVERY 6 HOURS NEEDED, Starting on Sat03/25/24 at 1105, Until Sat03/28/24 at 1526, Moderate Pain, Severe Pain, Post-op/Post-ProcStart: 03-23-2024 End: 25-54-6330xtkk 1 tablet by mouth every three hours as needed5 mg, Oral, EVERY 3 HOURS NEEDED, Starting on Sat03/23/24 at 1459, Until Sat03/25/24 at 1106, Moderate Pain, Severe Pain, Post-op/Post-ProcStart: 01-25-2022 End: 35-76-5741ukmHZVHGX 5 MG tablet Indications: Polycystic kidney disease Take 1 tablet by mouth every 6 hours as needed for Moderate Pain or Severe Pain for up to 5 doses. 5 tablet 0 01/25/2022 03/02/2022 Discontinued (Therapy completed) patiromer 8400 mg powder for oral suspension (4 sources)Potassium Binder End: 62-47-5965ztckoifhp 8.4 g Pack Take by mouth daily. 0 04/16/2023 Discontinued (Therapy completed)phentermine hydrochloride 8 mg oral tablet (3 sources)Sympathomimetic Amine AnorecticStart: 03-07-2023 End: 42-67-4770kwit 36-36.9 tablets by mouth once dailyPhentermine HCl 8 MG tablet Indications: Class 2 severe obesity with serious comorbidity and body ma ss index (BMI) of 36.0 to 36.9 in adult, unspecified obesity type , Gastroesophageal reflux diseasewithout esophagitis , S/P laparoscopic sleeve gastrectomy 1 tab PO QD 30 tablet 0 03/07/2023 04/16/2023 Discontinued (Therapy completed)Start: 12-10-2022 End: 18-86-0871mmzd 36-36.9 tablets by mouth once daily in the morning Phentermine HCl 8 MG tablet Indications: Class 2 severe obesity with serious comorbidity and body mass index (BMI) of 36.0 to 36.9 in adult, unspecified obesity type , Gastroesophageal reflux diseasewithout esophagitis , S/P laparoscopic sleeve gastrectomy Take 0.5 tab PO QAM x 7d; then if BP 30 tablet 0 12/10/2022 01/09/2023 Activepolyethylene glycol 3350 45482 mg powder for oral solution (7 sources)Osmotic LaxativeStart: 03-24-2024 End: 55-82-7582Bmftkdyhvahb glycol (MiraLax) 17 GM/SCOOP Powder powder Take 17 g by mouth daily as needed for Constipation. 225 g 03/27/2024 04/21/2024 Discontinued (Therapy completed)Prochlorperazine (COMPAZINE) injection 5 mg (1 source)Start: 03-23-2024 End: 39-59-6604hgae 5 mg intravenously every six hours as neededProchlorperazine (COMPAZINE) injection 5 mgproparacaine hydrochloride 5 mg/ml ophthalmic solution (1 source)Local AnestheticStart: 04-21-2022 End: 83-41-9160qzttenzrayyv (ALCAINE) 0.5 % ophthalmic solution 2 droprOPINIRole 0.5 mg oral tablet (20 sources)Nonergot Dopamine AgonistStart: 03-23-2024 End: 77-95-4097hhzl 0.5 mg by mouth once daily at bedtime0.5 mg, Oral, DAILY AT BEDTIME, First dose on Sat03/23/24 at 2100, Until Discontinued, Max 24 mg/day Start: 57-74-9480xvlm 2 tablets by mouth once daily at bedtimeRopinirole 0.25 mg tablet Active 0.5 MG PO Daily at bedtime February 24, 2024 9:32am Complies with drug therapyStart: 17-82-8064nayz 0.5 mg by mouth once daily at bedtime Ropinirole Active 0.5 MG PO Daily at bedtime February 24, 2024 9:32amStart: 08-06-2018 End: 08-09-9834sysw 1 tablet by mouth once daily at bedtimeRopinirole 0.25 mg tablet Discontinued 0.25 MG PO Daily at bedtime August 06, 2018 1:00am February 24, 2024 9:35amrOPINIRole 0.25 MG Tab take 0.25 mg by mouth at bedtime.. Jcqowm75 ml sodium bicarbonate 84 mg/ml injection (1 source)Start: 03-24-2024 End: mEq, Intravenous, ONCE, 1 dose, On Sat03/24/24 at 15327910 ml sodium chloride 9 mg/ml injection (1 source)Start: 03-23-2024 End: 92-88-3261Hiwaxbzuecf, at 20 mL/hr, NEEDED, Starting on Sat03/23/24 at 1459, Until 03/28/24 at 1527, Carrier Fluid - See Admin. Inst, 250mL 0.9NS to be used as carrier fluid for intermittent small volumeor piggyback medication administration as needed. Infusion rate of the carrier fluid should be set at 20 mL/hr unless the rate as the intermittent medication is less than 20 mL/hr. For intermittent medications with a rate less than 20 mL/hr set the carrier fluid at that rate of the intermittent or piggy back medication., Post-op/Post-Procsodium zirconium cyclosilicate 5000 mg powder for oral suspension (19 sources)Start: 02-24-2024 End: 18-47-3770Nrohmu Zirconium Cyclosilicate (Lokelma) 5 gram powder in packet Discontinued 5 GM PO Daily February 24, 2024 12:00am April 07, 2024 2:00pm Sodium Zirconium Cyclosilicate (Lokelma) 5 g Pack powder Take 2 packets by mouth daily. Activevitamin b12 0.5 mg oral tablet (20 sources)Vitamin N15Fkdmt: 09-26-2021 End: 62-89-8031xhzi 2 tablets by mouth once daily in the morningcyanocobalamin 500 MCG tablet Take 2 tablets by mouth daily every morning. 12/04/2023 03/27/2024 Discontinued (Stop Taking at Discharge)Start: 31-96-4354lmqv 2 tablets by mouth once dailycyanocobalamin 500 MCG tablet Take 2 tablets by mouth daily. 60 tablet 11 08/22/2020 Active Problems Active Problems Problem ClassificationProblemDateDocumented DateEpisodic/Chronic Administrative/social admission (20 sources)Patient encounter status; Translations: [Dietary counseling and surveillance]Onset: 04-02-2019 Resolved: 601841-76-6759UpjeqwiyRhvhuygk reactions (6 sources)Allergic disposition; 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 degeneration]Onset: 939999-03-2941QhbghfjwUdlnuee disorders (20 sources)Anxiety disorder; Translations: [Anxiety disorder, unspecified] 72-79-0458NoxthuhWmauldt and circulatory congenital anomalies (1 source)Patent foramen ovale; Translations: [PFO (patent foramen ovale)] 23-67-7870NqemietHjpbmqf kidney disease (20 sources)End stage renal disease; Translations: [History of renal transplant] Onset: 09-24-2016 Resolved: 252451-28-5729KfwjciqOuegpttmfw and other anemia (2 sources)Hemoglobin low; Translations: [Anemia, unspecified]00-44-0184Myisswcf Deficiency and other anemia (1 source)Anemia, unspecified; Translations: [Anemia, unspecified]04-07-2024 EpisodicE Codes: Natural/environment (3 sources)Dog bite - wound; Translations: [Bitten by dog, initial encounter] Onset: 35-19-9398LcwrvyquTxvnejcywh disorders (20 sources)Gastroesophageal reflux disease; Translations: [Gastro-esophageal reflux disease without esophagitis]Onset: 01-15-2024 Resolved: 557916-42-9819NtbojsaPzdrifyfb hypertension (20 sources)Essential hypertension; Translations: [Essential (primary) hypertension]Onset: 499312-13-3844LxeuiieKdglokqlnpa of prostate (1 source)Benign prostatic hypertrophy with outflow obstruction; Translations: [Benign prostatic hyperplasia with lower urinary tract symptoms]ChronicImmunity disorders (20 sources)Immunodeficiency, unspecified; Translations: [Immunosuppression] Onset: 09-25-2016 Resolved: 457540-58-5529TqxgkihOfqvaykwmpbf; infection of eye (except that caused by tuberculosis or sexually transmitteddisease) (5 sources)Acute infectious conjunctivitis; Translations: [Unspecified acute conjunctivitis, right eye]Onset: 24-98-7541GwzachqzHzgfysp and fatigue (1 source)Fatigue; Translations: [Other fatigue]52-63-4873QevnirbmKnjfavudhcrmw mental health disorders (1 source)Lack or loss of sexual desire; 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]ChronicMood disorders (20 sources)Depressive disorder; Translations: [Depression]83-31-8913Fknbvic Neoplasms of unspecified nature or uncertain behavior (1 source)Neoplasm of uncertain behavior of skin; Translations: [Neoplasm of uncertain behavior of skin]78-02-1704UudvmoghDqqxtfjeorg deficiencies (20 sources)Vitamin D deficiency; Translations: [Vitamin D deficiency, unspecified]Onset: 04-02-2019 Resolved: 080572-59-0653LjpxknzRvkasqnkbem deficiencies (20 sources)Iron deficiency; Translations: [Iron deficiency]Onset: 04-02-2019 Resolved: 229958-46-4380TzjnzuwpGdfw wounds of extremities (4 sources)Laceration of hand without foreign body; Translations: [Laceration without foreign body of right hand, initial encounter]Onset: 31-07-0602Fwphdoac Other aftercare (3 sources)Transplant follow-up; Translations: [Encounter for aftercare following other organ transplant]ChronicOther aftercare (2 sources)Encounter for aftercare following other organ transplant; Translations: [Encounter for aftercare following other organ transplant]Onset: 58-53-5007NhtzvojJokvd aftercare (3 sources)Taking high risk medication; Translations: [Other oysterman (current) drug therapy]EpisodicOther aftercare (1 source)Long-term current use of immunosuppressive drug; Translations: [Other retirement (current) drug therapy]EpisodicOther aftercare (1 source)Wound ; Translations: [Encounter for other specified surgical aftercare]EpisodicOther aftercare (2 sources)Post-discharge follow-up; Translations: [Encounter for follow-up examination after completed treatment for conditions other than malignant neoplasm]64-90-3656CmozhrgmRajkb aftercare (1 source)Encounter for follow-up examination after completed treatment for conditions other than malignant neoplasm; Translations: [Other follow-up examination]06-76-2949QocqtgplUwvql and unspecified benign neoplasm (1 source)Senile angioma; Translations: [Hemangioma of skin and subcutaneous tissue]45-62-9261TidkbxgiDrrlr and unspecified benign neoplasm (1 source)Melanocytic nevus of lower limb; Translations: [Melanocytic nevi of unspecified lower limb, including hip]70-69-4502IqucpashNqkcu and unspecified benign neoplasm (1 source)Melanocytic nevus of trunk; Translations: [Melanocytic nevi of trunk] 25-75-3229BmqdoeiqYnmnx and unspecified benign neoplasm (1 source)Melanocytic nevus of upper limb; Translations: [Melanocytic nevi of unspecified upper limb, including shoulder]45-44-2792YeimijvnTqpgf connective tissue disease (20 sources)Nocturnal muscle spasm ; Translations: [Other muscle spasm] 53-63-5386XpkxjwvzXbrvv connective tissue disease (1 source)Pain in right foot; Translations: [Pain in right foot]04-19-2023 EpisodicOther diseases of kidney and ureters (20 sources)Hyperparathyroidism due to renal insufficiency; Translations: [Secondary hyperparathyroidism of renal origin]45-58-2292ScwwnhbCbvzz diseases of kidney and ureters (2 sources)Hydronephrosis; Translations: [Unspecified hydronephrosis]03-27-2024 EpisodicOther ear and sense organ disorders (1 source)Impacted cerumen in right ear; Translations: [Impacted cerumen, right ear]92-05-3789FpgmebheXeidh eye disorders (1 source)Red right eye; Translations: [Other specified disorders of eye and adnexa]EpisodicOther gastrointestinal disorders (2 sources)Intestinal bypass and anastomosis status; 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]Onset: 03-03-9868DzrmfexQtecu gastrointestinal disorders (20 sources)History of sleeve gastrectomy; Translations: [Bariatric surgery status]Onset: 890834-27-2211ZmxizayyYrsqb gastrointestinal disorders (4 sources)History of bypass of stomach; Translations: [Bariatric surgery status]76-54-6161JotifjqjNzzin gastrointestinal disorders (2 sources)Bariatric surgery status; Translations: [Bariatric surgery status] 22-59-2141OkqsfoddOgpay hereditary and degenerative nervous system conditions (20 sources)Restless legs; Translations: [Restless legs syndrome]Onset: 264356-49-0000GgvzxhuEmjsc inflammatory condition of skin (1 source)Seborrheic dermatitis; Translations: [Seborrheic dermatitis, unspecified]07-71-0195IynmngruOvhle inflammatory condition of skin (2 sources)Seborrheic dermatitis, unspecified; Translations: [Seborrheic dermatitis, unspecified]Onset: 00-41-6751TmuuuxxoJcxmv male genital disorders (2 sources)Male erectile dysfunction, unspecified; Translations: [Impotence of organic origin]ChronicOther nervous system disorders (2 sources)Other chronic pain; Translations: [Other chronic pain]Onset: 85-50-0701OinkmzzSjriw nervous system disorders (4 sources)H/O: respiratory disease; Translations: [Personal history of other diseases of the nervous system and sense organs]40-81-2518YiloppnfYaalt non- traumatic joint disorders (2 sources)Pain in right knee; Translations: [Pain in right knee]Onset: 52-31-2454VmlcsnyzWmusa non-traumatic joint disorders (2 sources)Acute ankle pain; Translations: [Pain in right ankle and joints of right foot]16-53-9973LpxlrzxyXcohy non-traumatic joint disorders (3 sources)Pain in right ankle and joints of right foot; Translations: [Pain in joint, ankle and foot]Onset: 22-16-1832EeskjtdbLygtd non-traumatic joint disorders (4 sources)Ankle pain; Translations: [Pain in right ankle and joints of right foot]37-31-2556QsssehopWapra nutritional; endocrine; and metabolic disorders (20 sources)Morbid (severe) obesity due to excess calories; Translations: [Severe obesity]Onset: 05-10-2017 Resolved: 099267-78-3158UibtirjGzoxk nutritional; endocrine; and metabolic disorders (20 sources)Obesity; Translations: [Obesity, unspecified]Onset: 03-23-2024 Resolved: 892635-62-6252IofsxwmNyesm nutritional; endocrine; and metabolic disorders (1 source)Body mass index 30+ - obesity; Translations: [Obesity, unspecified] 48-62-5101FgxzbnrUwbwf nutritional; endocrine; and metabolic disorders (2 sources)Body mass index (BMI) 33.0-33.9, adult; Translations: [Body mass index (BMI) 33.0-33.9, adult]Onset: 94-51-5670QsalfpjMgnmn nutritional; endocrine; and metabolic disorders (1 source)H/O: endocrine disorder; Translations: [Personal history of other endocrine, nutritional and metabolic disease]70-88-6160WfqzuzseShciz nutritional; endocrine; and metabolic disorders (1 source)H/O: obesity; Translations: [Personal history of other endocrine, nutritional and metabolic disease]62-91-1473WvidyvaaTwwvu skin disorders (1 source)Lentiginosis; Translations: [Other melanin hyperpigmentation] 97-32-9758ZbyvhrybGsixq skin disorders (1 source)Seborrheic keratosis; Translations: [Other seborrheic keratosis] 74-27-9815YpnppkfuDogeg upper respiratory disease (20 sources)Allergic disposition; Translations: [Other allergic rhinitis]Onset: 265249-45-8551TkvwqrzLhyvs upper respiratory disease (1 source)Allergic rhinitis; Translations: [Allergic rhinitis, unspecified] 48-33-7920AqfhconNbbvr upper respiratory disease (2 sources)Seasonal allergic rhinitis; Translations: [Other seasonal allergic rhinitis]20-58-4051AjlgvqjXvwvi upper respiratory infections (4 sources)Sinusitis; Translations: [Chronic sinusitis, unspecified]Onset: 98-97-5216VwqvwihJyelk upper respiratory infections (4 sources)Viral upper respiratory tract infection; Translations: [Acute upper respiratory infection, unspecified]Onset: 36-19-8999WymdmxlaVpgrdrca codes; unclassified (20 sources)Obstructive sleep apnea syndrome; Translations: [Obstructive sleep apnea (adult) (pediatric)]Onset: 07-07-2019 Resolved: 087998-33-8095WzvzocmYchrgieq codes; unclassified (3 sources)Obstructive sleep apnea (adult) (pediatric); Translations: [Obstructive sleep apnea (adult)(pediatric)]Onset: 07-13-0821IuxtursCovugvqe codes; unclassified (1 source)Other general symptoms and signs; Translations: [Other general symptoms]EpisodicResidual codes; unclassified (1 source)At risk of nutritional deficit; Translations: [Other specified personal risk factors, not elsewhereclassified]25-00-7298XlnngsvaTfvfhhld codes; unclassified (1 source)History of radical nephrectomy; Translations: [Acquired absence of kidney]32-42-9611TgnuizfnKgiyzhpf codes; unclassified (2 sources)Bilateral lower limb edema; Translations: [Localized edema]02-25-2024 EpisodicResidual codes; unclassified (1 source)Postoperative state; Translations: [Other specified postprocedural states]34-07-7618QgltgrcyWcymgbti codes; unclassified (1 source)At risk for imbalanced nutrition, less than body requirements; Translations: [Other specified personal risk factors, not elsewhere classified] 16-69-1309EtoprytvCtil and subcutaneous tissue infections (2 sources)Local infection of the skin and subcutaneous tissue, unspecified; Translations: [Local infection ofthe skin and subcutaneous tissue, unspecified] Onset: 34-13-1725FwcwtrwrXapjoecsxzi; intervertebral disc disorders; other back problems (2 sources)Acute low back pain; Translations: [Acute bilateral low back pain without sciatica]EpisodicUnclassified (1 source)Follow-up / 145()Onset: 46-32-1117Lsdwmzycfdyl (1 source)MRI Results / 555()Onset: 39-92-7840Ojymzpjfsomo (1 source)Knee Pain / [id number]()Onset: 96-22-0486Jquvpnbnomvq (1 source)Obesity, class 1; Translations: [Obesity, class 1]Onset: 03-23-2024 Past or Other Problems Problem ClassificationProblemDateDocumented DateEpisodic/ChronicAbdominal hernia (20 sources)Umbilical hernia without obstruction AND without gangrene ; Translations: [Umbilical hernia]Onset: 04-24-2017 Resolved: 869706-99-1590AnucvlbfMiumztywt pain (20 sources)Right lower quadrant pain; Translations: [Right lower quadrant pain] Onset: 02-19-2017 Resolved: 683283-21-8607IotsdhicYvhtblljarpq and other appendiceal conditions (20 sources)Appendicitis; Translations: [Unspecified appendicitis]Onset: 12-26-2019 Resolved: 279734-74-0194HcmogkecSntovbpa mellitus without complication (20 sources)Prediabetes; Translations: [Prediabetes]Onset: 04-02-2019 Resolved: 380669-46-6772EmcuamkpXjqzj and electrolyte disorders (4 sources)Hyperkalemia; Translations: [Hyperkalemia]Onset: EpisodicGenitourinary congenital anomalies (20 sources)Multiple congenital cysts of kidney; 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]Onset: 09-24-2016 Resolved: 760451-44-9549RzpuypaBuxtxghoblvhu symptoms and ill-defined conditions (5 sources)Retention of urine; Translations: [Retention of urine, unspecified] Onset: 880352-11-1272RrfxxmnnPvolsftkgn obstruction without hernia (20 sources)Partial obstruction of small bowel; Translations: [Partial intestinal obstruction, unspecified as to cause]Onset: 02-28-2019 Resolved: 121962-03-1597NlkiwaihKlwo disorders (20 sources)Mood disordersOnset: 11-30-2021 Resolved: 897803-30-6957Yicvndc (20 sources)Tinea cruris; Translations: [Tinea cruris]Onset: 02-11-2018 Resolved: 848309-89-8098OtvrrxkiQicsyd and vomiting (3 sources)Nausea; Translations: [Nausea]Onset: 892819-00-6355Nrrpuyhs Other aftercare (2 sources)Other oysterman (current) drug therapy; Translations: [Other retirement (current) drug therapy]Onset: 57-28-4541GvjvirtpTztfa connective tissue disease (2 sources)Pain in right foot; Translations: [Pain in right foot]Onset: 75-76-1077UnevikmhMlyii diseases of kidney and ureters (2 sources)Unspecified hydronephrosis; Translations: [Unspecified hydronephrosis]Onset: 82-25-9564MomcobpaDjdmd eye disorders (2 sources)Ocular pain, right eye; Translations: [Ocular pain, right eye]Onset: 44-64-5979NyxrkhjqPjbmp lower respiratory disease (20 sources)Snoring; Translations: [Snoring] Resolved: [id number] nervous system disorders (2 sources)Personal history of other diseases of the nervous system and sense organs; Translations: [Personal history of other diseases of the nervous system and sense organs]Onset: 61-81-0489VcbmqfyaZshio non-traumatic joint disorders (2 sources)Knee pain; Translations: [Knee Pain]Onset: 51-28-7969ZuahpatySraxo non-traumatic joint disorders (2 sources)Pain in left knee; Translations: [Pain in left knee]Onset: 01-15-2018 EpisodicOther nutritional; endocrine; and metabolic disorders (20 sources)Obesity, unspecified; Translations: [Obese class I]Onset: 02-19-2017 Resolved: 585396-23-9523MujawkxTnsyr nutritional; endocrine; and metabolic disorders (20 sources)Body mass index 40+ - severely obese; Translations: [Morbid (severe) obesity due to excess calories]Onset: 02-28-2019 Resolved: 656470-27-5248BfhzlmdPihko nutritional; endocrine; and metabolic disorders (20 sources)Morbid obesity; Translations: [Morbid (severe) obesity due to excess calories]Onset: 07-16-2019 Resolved: 483033-81-8809LmjfyqwNnvbq nutritional; endocrine; and metabolic disorders (20 sources)Weight gain; Translations: [Abnormal weight gain]Onset: 04-02-2019 Resolved: 894827-29-7644SmfuatpfIrbkt nutritional; endocrine; and metabolic disorders (11 sources)Weight increased; Translations: [Abnormal weight gain]Onset: 04-02-2019 Resolved: 284168-89-9630JgyhxbsvKyfjb nutritional; endocrine; and metabolic disorders (2 sources)Personal history of other endocrine, nutritional and metabolic disease; Translations: [Personal history of other endocrine, nutritional and metabolic disease]Onset: 53-62-9799IsujjbqjBmrht screening for suspected conditions (not mental disorders or infectious disease) (14 sources)Blood chemistry abnormal; Translations: [Abnormal finding of blood chemistry, unspecified]Onset: 20-68-6943NqhffgnnUxstpcgf codes; unclassified (5 sources)Patient awaiting renal transplant; Translations: [Kidney transplant candidate]Onset: 09-24-2016 Resolved: 995907-21-7986KegkgutRaomfvos codes; unclassified (20 sources)Awaiting transplantation of kidney; Translations: [Awaiting organ transplant status]Onset: 09-24-2016 Resolved: 754804-57-1257DqlokkrCnqctdrt codes; unclassified (20 sources)History of repair of umbilical hernia; Translations: [Encounter for follow-up examination after completed treatment for conditions other than malignant neoplasm]Onset: 05-10-2017 Resolved: 453963-26-1559SamisrxxCokpvjja codes; unclassified (2 sources)Other specified postprocedural states; Translations: [Other specified postprocedural states]Onset: 73-36-3419ImydttayNzuvqnfvk and history of mental health and substance abuse codes (20 sources)Ex-smoker; Translations: [Personal history of nicotine dependence] Onset: 222526-80-9415PklzzvjlVnzjpsh and strains (12 sources)Sprain of right ankle; Translations: [Sprain of unspecified ligament of right ankle, initial encounter]Onset: 756367-54-2218Sgylhbuo Unclassified (1 source)Osteoarthritis of right knee, unspecified osteoarthritis type Unclassified (1 source)MRI Results; Translations: [MRI Results]Onset: 67-14-6726Yqcofipetdvz (5 sources)Onset: 03-10-2023 Resolved: 877886-26-1127Chrjtiddrznf (1 source)Obesity, class 1; Translations: [Obesity, class 1]Onset: 04-23-2024 Results Test NameValueInterpretationReference RangeFacilityALLOSCREEN RECIPIENT (POST TX PRA)on [id number] SPECIFICITY CLASS COMMENTAntibody Specificity testing performed by [employer]. cPRA calculation based on identification of HLA antibody specificities at MFI >2000 and/or presence of CREG antibodies. [facility] Memorial HospitalComment on above:Result Comment: Some of the reagents used for testing in the Clinical Histocompatibility Laboratoryhave yet to be approved by the FDA. Our certification by CLIA to perform high complexity tests allows us to use these reagents in the context of a stringent QC program, and obviates the need for FDA approval.Testing performed by the [facility] Clinical Histocompatibility Laboratory. [facility] number: [id number]. CLIA number: [id number], Director: Everton Hernandez,PhD, F([facility]).Performed By: #### MINDY CHM7, IPB #### [facility] (DEFAULT) [address] [address]NWKFYBVX SPECIFICITY INTERPRETATIONDetectedCommunity Memorial HospitalComment on above:Performed By: #### SHAHNAZ GUILLENM7, IPB #### [facility] (DEFAULT) [address] [place] [address] 46617JZTIN I SPECIFICITIESC:18[facility] Memorial HospitalComment on above:Performed By: #### MGSeema, CHM7, IPB #### [facility] (DEFAULT) [address] [place] [address] 27442HBDRU II SPECIFICITIESNot detectedCommunity Memorial HospitalComment on above:Performed By: #### MGSeema CHM7, IPB #### [facility] (DEFAULT) [address] [address]cCQQ3 %Zkbv1DlncMetrohealth Cleveland Heights Medical CenterComment on above:Performed By: #### MGO, CHM7, IPB #### [facility] (DEFAULT) [address] [place] [address] 34444CZ VIRUS DNA QN, PCR, PLASMAon 17-71-1478Ca Viral Load, Plasma <500Normal<500[facility] Medical CenterComment on above:Order Comment: This test was performed using a real time PCR assay. The dynamic range for this assay is 500-5,000,000 copies/mL. This test was developed and its performance characteristics determinedby The Clinical Microbiology Laboratory at The [facility]. It has not been cleared or approved by the FDA. The laboratory is regulated under CLIA as qualified to perform high-complexity testing. This test is used for clinical purposes. It should not be regarded as investigational or for research.Performed By: #### BKBP #### [facility] (DEFAULT) [address],PLATELETS [phone] distribution width (RBC) [Ratio]12.3 %10.9 - 14.3 %[facility] HospitalHematocrit (Bld) [Volume fraction]30.7 %Low39.6 - 48.8 %[facility] HospitalHemoglobin (Bld) [Mass/Vol]9.5 g/dLLow13.4 - 16.8 g/dLMarietta Memorial HospitalInterpretation and review of laboratory resultsAbnormSheltering Arms HospitalMCH (RBC) [Entitic mass]29.0 pg26.1 - 33.3 pgMarietta Memorial HospitalMCHC (RBC) [Mass/Vol]30.9 g/dLLow31.9 - 36.5 g/dLMarietta Memorial HospitalMCV (RBC) [Entitic vol]93.6 fL 79.0 - 94.5 [facility] CampusPlatelet mean volume (Bld) [Entitic vol] 12.4 fLHigh8.7 - 12.3 [facility] CampusPlatelets (Bld) [#/Vol]175 10*3/uL146 - 337 K/uLMarietta Memorial HospitalRBC (Bld) [#/Vol]3.28 10*6/uLLow [facility] HospitalWBC (Bld) [#/Vol]6.63 10*3/uL3.73 - 10.10 K/uLU [facility] CenterHematocrit (Bld) [Volume fraction] 30.7 %Low39.6-48.8[facility] Medical CenterComment on above: Performed By: #### HEMOGC #### [facility] (DEFAULT) [address] [place] [address] 12072Ntgndmdstv (Bld) [Mass/Vol]9.5 g/dLLow13.4-16.8[facility] CenterComment on above:Performed By: #### HEMOGC #### [facility] (DEFAULT) [address] [place] [address] 48017DQD (RBC) [Entitic vol]93.6 rKOhekwi41.0-94.5[facility] CenterComment on above:Performed By: #### HEMOGC #### [facility] (DEFAULT) [address] [place] [address] 01249Escl Cell Hgb29.0 zlLnyors37.1-33.3[facility] CenterComment on above:Performed By: #### HEMOGC #### [facility] (DEFAULT) [address] [place] [address] 87077Bafk Cell Hgb Conc30.9 g/dLLow31.9-36.5[facility] CenterComment on above:Performed By: #### HEMOGC #### [facility] (DEFAULT) [address] [place] [address] 30236Mbnthzzs mean volume (Bld) [Entitic vol]12.4 fLHigh8.7-12.3 [facility] CenterComment on above:Performed By: #### HEMOGC #### [facility] (DEFAULT) [address] [place] [address] 60208Htjjptppl (Bld) [#/Vol]175 10*3/kXPujsnr792-600EiooMetrohealth Cleveland Heights Medical CenterComment on above:Performed By: #### HEMOGC #### [facility] (DEFAULT) [address] [place] [address] 55635GKA (Bld) [#/Vol]3.28 10*6/uLLow4.38-5.83[facility] CenterComment on above:Performed By: #### HEMOGC #### [facility] (DEFAULT) [address] [place], [place] [address]SOQ Hgnpglnhahrj04.3 %Tevzcx63.9-14.3[facility] CenterComment on above:Performed By: #### HEMOGC #### [facility] (DEFAULT) [address] [place] [address] 93517BOC (Bld) [#/Vol]6.63 10*3/uLNormal3.73-10.10[facility] CenterComment on above:Performed By: #### HEMOGC #### [facility] (DEFAULT) [address] [place] [address] 26171IZNW 7 (LYTES,BUN,CREA,GLUC)on 49-11-7725Stzfr gap [Moles/Vol] 13 mmol/L7 - 17 mmol/[facility] HospitalChloride [Moles/Vol]106 mmol/L98 - 108 mmol/[facility] HospitalCO2 [Moles/Vol]24 mmol/L21 - 31 mmol/[facility] HospitalCreatinine [Mass/Vol]2.35 mg/dLHigh0.70 - 1.30 mg/dLMarietta Memorial HospitaleGFR, CKD-EPI, Wyci24Mdd- PINMemorial Health [facility] Comment on above:Reported eGFR is based on the CKD-EPI 2020 equation using creatinine, age, and sex.Glucose [Mass/Vol]99 mg/dL70 - 99 mg/dLMarietta Memorial HospitalInterpretation and review of laboratory resultsAbnormSheltering Arms HospitalOsmolality Calc [Osmolality]296[facility] HospitalPotassium [Moles/Vol]4.6 mmol/L3.5 - 5.0 mmol/[facility] Southodium [Moles/Vol] 138 mmol/L135 - 145 mmol/[facility] HospitalUrea nitrogen [Mass/Vol]29 mg/dLHigh7 - 25 mg/dLOSU [facility] HospitalUrea nitrogen/Creatinine [Mass ratio]12 mg/mgOSU [facility] HospitalOSU [facility] HospitalAnion gap [Moles/Vol]13 mmol/LNormal7-17[facility] CenterComment on above:Performed By: #### JUAN GUILLEN, IPB #### [facility] (DEFAULT) [address] [place], [place] [address]Mwczuuna [Moles/Vol]106 mmol/JEtbkof34-249ZhpbMetrohealth Cleveland Heights Medical CenterComment on above:Performed By: #### JUAN GUILLEN, IPB #### [facility] (DEFAULT) [address] [place] [address] 78844LK8 [Moles/Vol]24 mmol/ETcagfe10-71NpuhMetrohealth Cleveland Heights Medical CenterComment on above:Performed By: #### JUAN GUILLEN, IPB #### [facility] (DEFAULT) [address] [place] [address] 08320Bhoscbrsxc [Mass/Vol]2.35 mg/dLHigh0.70-1.30[facility] CenterComment on above:Performed By: #### JUAN GUILLEN, IPB #### [facility] (DEFAULT) [address] [place] [address] 48701SRY/1.73 sq M.predicted among non-blacks MDRD (S/P/Bld) [Vol rate/Area]32 mL/min/{1.73_m2}Low>=60[facility] Comment on above:Result Comment: Reported eGFR is based on the CKD-EPI 2020 equation using creatinine, age, and sex.Performed By: #### JUAN GUILLEN, IPB #### [facility] (DEFAULT) [address] [place] [address] 75727Hduuoki [Mass/Vol]99 mg/hVBjunlv69-09FdchMetrohealth Cleveland Heights Medical CenterComment on above:Performed By: #### JUAN GUILLEN, IPB #### [facility] (DEFAULT) [address] [place] [address] 48062Dmsbzhtqwf [Osmolality]296 mosm/yhFkiawi289-742DqxeMetrohealth Cleveland Heights Medical CenterComment on above:Performed By: #### JUAN GUILLEN, IPB #### [facility] (DEFAULT) [address] [place] [address], [place] [address]Fffcvzyfy [Moles/Vol]4.6 mmol/LNormal3.5-5.0[facility] CenterComment on above:Performed By: #### JUAN GUILLEN, IPB #### [facility] (DEFAULT) [address] [place] [address], [place] [address]Rlhdqy [Moles/Vol]138 mmol/ODwiisp819-933DzpyMetrohealth Cleveland Heights Medical CenterComment on above:Performed By: #### JUAN GUILLEN, IPB #### [facility] (DEFAULT) [address] [place] [address] 91355Tklw nitrogen [Mass/Vol]29 mg/dLHigh7-25[facility] CenterComment on above:Performed By: #### JUAN GUILLEN, IPB #### [facility] (DEFAULT) [address] [place] [address] 29044Jeto nitrogen/Creatinine [Mass ratio]12 mg/mgNormalOhio Ohiohealth Berger HospitalComment on above:Performed By: #### JUAN GUILLEN, IPB #### [facility] (DEFAULT) [address] [place] [address] 32615XXY BY PCR, QUANTITATIVE, BLOODon [id number] By Pcr, Iu/Ml, Plasma<50Normal<50[facility] Medical CenterComment on above: Order Comment: This test was performed using a real time CMV PCR assay. The dynamic range for this assay is 50-156,000,000 IU/mL. Results should be interpreted in conjunction with other clinical and laboratory.Performed By: #### JUAN GUILLEN, IPB #### [facility] (DEFAULT) [address] [place] [address] 90004TJCN URINE DIPSTICK AUTOMATEDon [id number] sediment LM Ql (Urine sed)[facility] HospitalAppearance (U)clearOSU [facility] HospitalBacteria LM Ql (Urine sed)[facility] HospitalBilirubin Ql (U) NegativeOSU [facility] HospitalCasts LM.LPF (Urine sed) [#/Area][facility] HospitalColor (U)yellowOSU [facility] HospitalCrystals LM Nom (Urine sed)[facility] HospitalEpithelial cells.squamous LM.HPF (Urine sed) [#/Area][facility] HospitalFlow cytometry specialist review Vikas (Unsp spec) [Interp][facility] HospitalGlucose Auto test strip (U) [Mass/Vol] Negativemg/dLOSU [facility] HospitalKetones [Mass/Vol]Negativemg/dLOSU [facility] HospitalLeukocyte esterase Qn (U)[facility] HospitalLeukocyte esterase Test strip Ql (U)NegativeOSU [facility] HospitalMicroscopic observation Gram stain Nom (Bronch spec)[facility] HospitalNitrite Ql (U) NegativeOSU [facility] HospitalpH (U)6.0 [pH]5 - 7[facility] Protein Ql (U)Negativemg/dLOSU [facility] HospitalRBC LM.HPF (Urine sed) [#/Area]OSMercy Health [facility] Regional Medical CenterRBC Ql (U)NegativeOSU [facility] Specific gravity (U) [Rel density]1.0101.001 - 1.035OSMercy Health [facility] Center Transitional cells LM Ql (Urine sed)[facility] HospitalUrobilinogen Qn (U) 0.2[facility] HospitalWBC LM.HPF (Urine sed) [#/Area][facility] HospitalOSMercy Health [facility] Regional Medical CenterURINE PROTEIN/CREA RATIO, RANDOMon 04-21-2024 Creatinine (24H U) [Mass/Vol]73.10 mg/dLOSMercy Health Springfield Regional Medical CenterProtein Unsp time (U) [Mass/Vol]4 mg/dLOSU [facility] HospitalProtein/Creatinine (U) [Mass ratio]0.055 mg/mgOSU [facility] HospitalOSU [facility] HospitalCreatinine (U) [Mass/Vol]73.10 mg/dLCommunity [facility] Hospital Comment on above:Performed By: #### UPCR #### [facility] (DEFAULT) [address] [place], [place] [address]Fadp/Creat Ratio0.055 mg/mgCommunity Memorial HospitalComment on above:Performed By: #### UPCR #### [facility] (DEFAULT) [address] [place], [place] [address]Lcaivif Ql (U)4 mg/dLCommunity Memorial HospitalComment on above:Performed By: #### UPCR #### [facility] (DEFAULT) [address] [place] [address] 60606BD RENAL TRANSPLANT SCANon [id number] RENAL TRANSPLANT SCAN EXAM: US RENAL TRANSPLANT [...] urinary tract symptoms 4. No pelvic ascites [facility]US for transplanted kidney limitedon [id number]: 1. Slight heterogeneous echotexture of the transplant [...] urinary tract symptoms 4. No pelvic ascites RADIOLOGY EXAM: US RENAL TRANSPLANT SCAN, 04/21/2024 13:27 [...] Abdomen: No ascites in the visualized images. Hayder Mahmood MBBS - 04/21/2024 EXAM: US RENAL TRANSPLANT [...] urinary tract symptoms 4. No pelvic ascites [facility] HospitalRadiology Study observation (narrative)[facility] HospitalUS for transplanted kidney limitedOrdered By: Hayder Orourke on [id number] [facility] Work Phone: pLACEMENT NEPHROSTOMY CATHETER PERCUTANEOUS W/ IMAGE GUIDANCEon [id number] NEPHROSTOMY CATHETER PERCUTANEOUS W/ IMAGE GUIDANCEEXAM: IR PLACEMENT NEPHROSTOMY CATHETER PERCUTANEOUS W/ IMAGE [...] Given Rate: 0 Route: Intravenous; 2:26 PM 9/27/24 midazolam (VERSED) injection 10 mg Given 0.5 [...] medication(s), I spent 41 minutes of continuous tgbk-ek-edew time with the patient. COMPARISON: Transplant kidney [...] passage of contrast into the bladder. Transplant net architect was contacted during the case and decision [...] Titus MD - Arrived (more content not included)...Normal [facility] CenterCBC,PLATELETSon 19-36-1178Jaizparujqv distribution width (RBC) [Ratio]12.5 %10.9 - 14.3 %[facility] Hematocrit (Bld) [Volume fraction]23.3 %Low39.6 - 48.8 %[facility] HospitalHemoglobin (Bld) [Mass/Vol]7.5 g/dLLow13.4 - 16.8 g/dLMarietta Memorial HospitalInterpretation and review of laboratory resultsAbnormHighland District HospitalH (RBC) [Entitic mass]30.0 pg26.1 - 33.3 pgMarietta Memorial HospitalMCHC (RBC) [Mass/Vol]32.2 g/dL31.9 - 36.5 g/dLMarietta Memorial HospitalMCV (RBC) [Entitic vol]93.2 fL79.0 - 94.5 [facility] Main CampusPlatelet mean volume (Bld) [Entitic vol]11.6 fL8.7 - 12.3 [facility] CampusPlatelets (Bld) [#/Vol]136 10*3/nWLhy912 - 337 K/[facility]red HealthcareRBC (Bld) [#/Vol] 2.50 10*6/uLLowMarietta Memorial HospitalWBC (Bld) [#/Vol]5.12 10*3/uL3.73 - 10.10 K/[facility] HospitalHematocrit (Bld) [Volume fraction]23.3 %Low39.6-48.8[facility] Comment on above:Performed By: #### JUAN GUILLEN, IPB #### [facility] (DEFAULT) [address] [address]Aplazbtpzn (Bld) [Mass/Vol]7.5 g/dLLow13.4-16.8[facility] CenterComment on above:Performed By: #### JUAN GUILLEN, IPB #### [facility] (DEFAULT) [address] [address]YEI (RBC) [Entitic vol]93.2 gQMhonsf71.0-94.5[facility] CenterComment on above:Performed By: #### JUAN GUILLEN, IPB #### [facility] (DEFAULT) [address] [place] [address] 69599Edsq Cell Hgb30.0 ovFzukte18.1-33.3[facility] CenterComment on above:Performed By: #### JUAN GUILLEN, IPB #### [facility] (DEFAULT) [address] [place] [address] 83219Lvum Cell Hgb Conc32.2 g/jLYnzfru65.9-36.5[facility] CenterComment on above:Performed By: #### JUAN GUILLEN, IPB #### [facility] (DEFAULT) [address] [place] [address] 87849Bhnrnitc mean volume (Bld) [Entitic vol]11.6 fLNormal8.7-12.3 [facility] CenterComment on above:Performed By: #### JUAN GUILLEN, IPB #### [facility] (DEFAULT) [address] [place] [address] 15118Khhoqdybf (Bld) [#/Vol]136 10*3/nDEsh732-822BvurMetrohealth Cleveland Heights Medical CenterComment on above:Performed By: #### JUAN GUILLEN, IPB #### [facility] (DEFAULT) [address] [place] [address] 32975GPB (Bld) [#/Vol]2.50 10*6/uLLow4.38-5.83[facility] CenterComment on above:Performed By: #### JUAN GUILLEN, IPB #### [facility] (DEFAULT) [address] [place] [address] 08057VSW Fbkpbroxtpfq69.5 %Vqxjjg87.9-14.3[facility] CenterComment on above:Performed By: #### JUAN GUILLEN, IPB #### [facility] (DEFAULT) [address] [place], [place] [address]NNX (Bld) [#/Vol]5.12 10*3/uLNormal3.73-10.10[facility] CenterComment on above:Performed By: #### MGO, CHM7, IPB #### [facility] (DEFAULT) [address] [place], [place] [address]HGYI 7 (LYTES,BUN,CREA,GLUC)on 22-54-0813Okqpi gap [Moles/Vol] 13 mmol/L7 - 17 mmol/[facility] HospitalChloride [Moles/Vol]107 mmol/L98 - 108 mmol/[facility] HospitalCO2 [Moles/Vol]23 mmol/L21 - 31 mmol/[facility] HospitalCreatinine [Mass/Vol]2.15 mg/dLHigh0.70 - 1.30 mg/dLMarietta Memorial HospitaleGFR, CKD-EPI, Uxjg99Lgd- [facility] Comment on above:Reported eGFR is based on the CKD-EPI 2020 equation using creatinine, age, and sex.Glucose [Mass/Vol]87 mg/dL70 - 99 mg/dLMarietta Memorial HospitalInterpretation and review of laboratory resultsAbnoOhioHealth Dublin Methodist HospitalOsmolality Calc [Osmolality]300OSMercy Health Springfield Regional Medical CenterPotassium [Moles/Vol]4.8 mmol/L3.5 - 5.0 mmol/[facility] Southodium [Moles/Vol] 138 mmol/L135 - 145 mmol/[facility] HospitalUrea nitrogen [Mass/Vol]41 mg/dLHigh7 - 25 mg/dLMarietta Memorial HospitalUrea nitrogen/Creatinine [Mass ratio]19 mg/mgMarietta Memorial HospitalAnion gap [Moles/Vol]13 mmol/LNormal7-17 [facility] CenterComment on above:Performed By: #### HEMOGC #### [facility] (DEFAULT) [address] [place], [place] [address]Asmfgtjt [Moles/Vol]107 mmol/JAfhdqa42-012DdrjMetrohealth Cleveland Heights Medical CenterComment on above:Performed By: #### HEMOGC #### [facility] (DEFAULT) [address] [place] [address] 52848PQ0 [Moles/Vol]23 mmol/RScahem97-04PucwMetrohealth Cleveland Heights Medical CenterComment on above:Performed By: #### HEMOGC #### [facility] (DEFAULT) [address] [place] [address] 15540Whyvgyhrjw [Mass/Vol]2.15 mg/dLHigh0.70-1.30[facility] CenterComment on above:Performed By: #### HEMOGC #### [facility] (DEFAULT) [address] [place] [address] 78919OQE/1.73 sq M.predicted among non-blacks MDRD (S/P/Bld) [Vol rate/Area]35 mL/min/{1.73_m2}Low>=60[facility] Comment on above:Result Comment: Reported eGFR is based on the CKD-EPI 2020 equation using creatinine, age, and sex.Performed By: #### HEMOGC #### [facility] (DEFAULT) [address] [place] [address] 69266Jmmxikg [Mass/Vol]87 mg/dACfyoxp12-80HkciMetrohealth Cleveland Heights Medical CenterComment on above:Performed By: #### HEMOGC #### [facility] (DEFAULT) [address] [place] [address] 08530Rifywspapc [Osmolality]300 mosm/rmMxcsqz500-995IppuMetrohealth Cleveland Heights Medical CenterComment on above:Performed By: #### HEMOGC #### [facility] (DEFAULT) [address] [place] [address] 14674Lurncawpk [Moles/Vol]4.8 mmol/LNormal3.5-5.0[facility] CenterComment on above:Performed By: #### HEMOGC #### [facility] (DEFAULT) [address] [place] [address] 13073Yuzswz [Moles/Vol]138 mmol/BRxranj703-487IbbdMetrohealth Cleveland Heights Medical CenterComment on above:Performed By: #### HEMOGC #### [facility] (DEFAULT) [address] [place], [place] [address]Rfnd nitrogen [Mass/Vol]41 mg/dLHigh7-25[facility] CenterComment on above:Performed By: #### HEMOGC #### [facility] (DEFAULT) [address] [place], [place] [address]Ihca nitrogen/Creatinine [Mass ratio]19 mg/mgNormMagruder HospitalComment on above:Performed By: #### HEMOGC #### [facility] (DEFAULT) [address] [place] [address] 03042NDEITACKNsa 40-22-8431Gomvckkna [Mass/Vol]1.7 mg/dL1.6 - 2.6 mg/dLOSMercy Health Springfield Regional Medical CenterMagnesium [Mass/Vol]1.7 mg/dLNormal1.6-2.6[facility] CenterComment on above:Performed By: #### HEMOGC #### [facility] (DEFAULT) [address] [place] [address] 915[address]Hm Panel Informationon 45-90-4060Vyatbwtfjljaud and review of laboratory resultsNormSutter Davis Hospital PHOSPHATE, INORGANICon 21-17-4180Jzbmmzyjj [Mass/Vol]2.8 mg/dL2.2 - 4.6 mg/dLMarietta Memorial HospitalPhosphorous2.8 mg/dLNormal2.2-4.6[facility] CenterComment on above:Performed By: #### MGO, CHM7, IPB #### [facility] (DEFAULT) [address] [place] [address] 51361TSFKBIIRKS LEVEL, TROUGH (PRE DRUG LEVEL)on 03-28-2024 Tacrolimus (Bld) [Mass/Vol]6.7 ng/mLBone Marrow Transplant: 5.0-15.0 Kidney/Pancreatic Transplant: 0 to 3 months: 8.0-10.0, 3 to 12 months: 6.0-8.0, >12 months: 4.0-6.0[facility] HospitalMethod performed is a chemiluminescent microparticle immunoasssay on the MOGL Activity Therapy Specialist i2000. The range is based on experience at [facility] and users should be aware that target concentrations vary widely depending on concomitant therapy, time post- transplant, and desired degree of immunosuppression.[facility] HospitalOSMer[facility] Regional Medical CenterCBC,PLATELETSon [id number] distribution width (RBC) [Ratio]12.5 %10.9 - 14.3 %[facility] HospitalHematocrit (Bld) [Volume fraction]23.5 %Low39.6 - 48.8 %[facility] HospitalHemoglobin (Bld) [Mass/Vol]7.5 g/dLLow13.4 - 16.8 g/dLMarietta Memorial HospitalInterpretation and review of laboratory resultsAbnormalOFort Hamilton HospitalMCH (RBC) [Entitic mass]30.4 pg26.1 - 33.3 pgMarietta Memorial HospitalMCHC (RBC) [Mass/Vol]31.9 g/dL31.9 - 36.5 g/dLMarietta Memorial HospitalMCV (RBC) [Entitic vol]95.1 fLHigh 79.0 - 94.5 [facility] Main CampusPlatelet mean volume (Bld) [Entitic vol] [facility] HospitalComment on above:Not measuredPlatelets (Bld) [#/Vol]128 10*3/vCTlh351 - 337 K/uLMarietta Memorial HospitalRBC (Bld) [#/Vol]2.47 10*6/uL LowMarietta Memorial HospitalWBC (Bld) [#/Vol]5.55 10*3/uL3.73 - 10.10 K/uLKaiser South San Francisco Medical CenterHematocrit (Bld) [Volume fraction] 23.5 %Low39.6-48.8[facility] Medical CenterComment on above: Performed By: #### HEMOGC #### [facility] (DEFAULT) [address] [place] [address] 08075Rryodyzndg (Bld) [Mass/Vol]7.5 g/dLLow13.4-16.8[facility] Medical CenterComment on above:Performed By: #### HEMOGC #### [facility] (DEFAULT) [address] [place] [address] 92048SQF (RBC) [Entitic vol]95.1 lYLptj02.0-94.5[facility] Medical CenterComment on above:Performed By: #### HEMOGC #### [facility] (DEFAULT) [address] [place] [address] 51950Wnxc Cell Hgb30.4 qpYorzad39.1-33.3[facility] Medical CenterComment on above:Performed By: #### HEMOGC #### [facility] (DEFAULT) [address] [place] [address] 53132Kkye Cell Hgb Conc31.9 g/zUNyuyuk59.9-36.5[facility] Medical CenterComment on above:Performed By: #### HEMOGC #### [facility] (DEFAULT) [address] [place] [address] 82983Deuz Platelet VolumeNormalOProMedica Memorial HospitalComment on above:Result Comment: Not measuredPerformed By: #### HEMOGC #### [facility] (DEFAULT) [address] [place] [address] 60108Jvdhzpgsf (Bld) [#/Vol]128 10*3/mJRhk486-372PlyfMetrohealth Cleveland Heights Medical CenterComment on above:Performed By: #### HEMOGC #### [facility] (DEFAULT) [address] [place] [address] 37729EEL (Bld) [#/Vol]2.47 10*6/uLLow4.38-5.83[facility] Medical CenterComment on above:Performed By: #### HEMOGC #### [facility] (DEFAULT) [address] [place], [place] [address]TGO Fjwahyeaznia87.5 %Zvxexg17.9-14.3[facility] Medical CenterComment on above:Performed By: #### HEMOGC #### [facility] (DEFAULT) [address] [place], [place] [address]XGX (Bld) [#/Vol]5.55 10*3/uLNormal3.73-10.10[facility] Medical CenterComment on above:Performed By: #### HEMOGC #### [facility] (DEFAULT) [address] [place], [place] [address]GHQX 7 (LYTES,BUN,CREA,GLUC)on 69-21-7008Jiobt gap [Moles/Vol] 12 mmol/L7 - 17 mmol/[facility] HospitalChloride [Moles/Vol]111 mmol/L High98 - 108 mmol/[facility] HospitalCO2 [Moles/Vol]22 mmol/L21 - 31 mmol/[facility] HospitalCreatinine [Mass/Vol]2.24 mg/dLHigh0.70 - 1.30 mg/dLMarietta Memorial HospitaleGFR, CKD-EPI, Whoi60Ofq- PINMemorial Health System Selby General HospitalComment on above:Reported eGFR is based on the CKD-EPI 2020 equation using creatinine, age, and sex.Glucose [Mass/Vol]92 mg/dL70 - 99 mg/dLMarietta Memorial HospitalInterpretation and review of laboratory resultsAbnoOhioHealth Dublin Methodist HospitalOsmolality Calc [Osmolality]305OSMercy Health Springfield Regional Medical CenterPotassium [Moles/Vol]4.9 mmol/L3.5 - 5.0 mmol/[facility] Southodium [Moles/Vol] 140 mmol/L135 - 145 mmol/[facility] HospitalUrea nitrogen [Mass/Vol]43 mg/dLHigh7 - 25 mg/dLMarietta Memorial HospitalUrea nitrogen/Creatinine [Mass ratio]19 mg/mgMarietta Memorial HospitalAnion gap [Moles/Vol]12 mmol/LNormal7-17 [facility] CenterComment on above:Performed By: #### JUAN GUILLEN, IPB #### [facility] (DEFAULT) [address] [place] [address] 69191Kysjtctq [Moles/Vol]111 mmol/AYopq84-997YlhnMetrohealth Cleveland Heights Medical CenterComment on above:Performed By: #### JUAN GUILLEN, IPB #### [facility] (DEFAULT) [address] [place] [address] 65861DB7 [Moles/Vol]22 mmol/VAzethm05-58DwewMetrohealth Cleveland Heights Medical CenterComment on above:Performed By: #### JUAN GUILLEN, IPB #### [facility] (DEFAULT) [address] [place] [address] 93614Cuyphmrnyz [Mass/Vol]2.24 mg/dLHigh0.70-1.30[facility] Medical CenterComment on above:Performed By: #### JUAN GUILLEN, IPB #### [facility] (DEFAULT) [address] [place] [address] 78286CYD/1.73 sq M.predicted among non-blacks MDRD (S/P/Bld) [Vol rate/Area]34 mL/min/{1.73_m2}Low>=60[facility] Comment on above:Result Comment: Reported eGFR is based on the CKD-EPI 2020 equation using creatinine, age, and sex.Performed By: #### JUAN GUILLEN, IPB #### [facility] (DEFAULT) [address] [place] [address] 12914Mhignor [Mass/Vol]92 mg/hEDiifjg80-24AiyeMetrohealth Cleveland Heights Medical CenterComment on above:Performed By: #### JUAN GUILLEN, IPB #### [facility] (DEFAULT) [address] [place] [address] 08356Dcvwvojbkj [Osmolality]305 mosm/hnKddkwr488-011NposMetrohealth Cleveland Heights Medical CenterComment on above:Performed By: #### JUAN GUILLEN, IPB #### [facility] (DEFAULT) [address] [place] [address] 95992Fwdcbdjus [Moles/Vol]4.9 mmol/LNormal3.5-5.0[facility] CenterComment on above:Performed By: #### JUAN GUILLEN, IPB #### [facility] (DEFAULT) [address] [place] [address] 05204Mxqidc [Moles/Vol]140 mmol/GJqtyvi190-248WxtrMetrohealth Cleveland Heights Medical CenterComment on above:Performed By: #### JUAN GUILLEN, IPB #### [facility] (DEFAULT) [address] [place] [address] 47051Sxrd nitrogen [Mass/Vol]43 mg/dLHigh7-25OhTuscarawas HospitalComment on above:Performed By: #### JUAN GUILLEN, IPB #### [facility] (DEFAULT) [address] [place] [address] 89318Ofdg nitrogen/Creatinine [Mass ratio]19 mg/mgNormMagruder HospitalComment on above:Performed By: #### JUAN GUILLEN, IPB #### [facility] (DEFAULT) [address] [place] [address] 82412DVGKLUE PROCEDUREon 19-30-0518GXSMarietta Memorial Hospital Radiology Study observation (narrative)[facility] HospitalMAGNESIUMon [id number] [Mass/Vol]1.8 mg/dL1.6 - 2.6 mg/dLMarietta Memorial Hospital Magnesium [Mass/Vol]1.8 mg/dLNormal1.6-2.6[facility] CenterComment on above:Performed By: #### JUAN GUILLEN, IPB #### [facility] (DEFAULT) [address] [place] [address] 29431Uo Panel Informationon [phone] and review of laboratory resultsNormSheltering Arms HospitalOSMercy Health Springfield Regional Medical Center PHOSPHATE, INORGANICon [id number] [Mass/Vol]2.7 mg/dL2.2 - 4.6 mg/dLMarietta Memorial HospitalPhosphorous2.7 mg/dLNormal2.2-4.6[facility] CenterComment on above:Performed By: #### MGO, CHM7, IPB #### [facility] (DEFAULT) [address] [place] [address] 16194YZHRKMS TO TRANSFUSE RED BLOOD CELLSon [phone]/RH(D) TYPEPositiveMarietta Memorial HospitalBLOOD COMPONENT TYPERed Cells, Leukoreduced [facility] HospitalEXPIRATION [id number] Memorial Hospital Product ABO/RH(D)PositiveOSMercy Health Springfield Regional Medical CenterProduct ABO/RH(D) [id number] [facility] HospitalPRODUCT [id number] Memorial HospitalUNIT [id number] Memorial HospitalUNIT STATUSAvailableOSCapital Health System ([facility])PT,INR,PTTon 65-13-4495xOCK Coag (PPP) [Time]33.0 [facility] CenterU [facility] HospitalINR Coag (Bld) [Relative time]1.1 {INR}0.9 - 1.1[facility] HospitalInterpretation and review of laboratory results AbnormalOSU [facility] County HospitalPT Coag (PPP) [Time]14.6 sHigUniversity Hospitals Elyria Medical CenterOSU [facility] HospitalaPTT Coag (Bld) [Time]33.0 sNormal 24.0-34.3[facility] Medical CenterComment on above:Performed By: #### PTPTT #### [facility] (DEFAULT) [address] [place], [place] [address]BAX Coag (PPP) [Relative time]1.1 {INR}Normal0.9-1.1[facility] Medical CenterComment on above:Performed By: #### PTPTT #### [facility] (DEFAULT) [address] [place] [address] 35535AP Coag (PPP) [Time]14.6 sHigh11.9-14.2OhTuscarawas HospitalComment on above:Performed By: #### PTPTT #### [facility] (DEFAULT) [address] [place] [address] 74402EBXOVTQMJB LEVEL, TROUGH (PRE DRUG LEVEL)on 03-27-2024 Tacrolimus, Trough6.7 ng/mLNormalBone Marrow Transplant: 5.0-15.0 Kidney/Pancreatic Transplant: 0 to 3 months: 8.0-10.0, 3 to 12 months: 6.0-8.0, >12 months: 4.0-6.0[facility] Medical CenterComment on above: Order Comment: Please draw at specified interval PRIOR to dose. Do not hold dose to wait for level.Specimens batched twice per day, (M-F) and once per day weekendsMethod performed is a chemiluminescent microparticle immunoasssay on the Cash Activity Therapy Specialist i2000.The range is based on [facility] users should be aware that target concentrations vary widely depending on concomitant therapy, time post-transplant, and desired degree of immunosuppression.Performed By: #### MGO, CHM7, IPB #### [facility] (DEFAULT) [address] [place] [address] 82469Eermjxigqf (Bld) [Mass/Vol]7.8 ng/mLBone Marrow Transplant: 5.0-15.0 Kidney/Pancreatic Transplant: 0 to 3 months: 8.0-10.0, 3 to 12 months: 6.0-8.0, >12 months: 4.0-6.0[facility] HospitalMethod performed is a chemiluminescent microparticle immunoasssay on the Cash Activity Therapy Specialist i2000. The range is based on experience at [facility] and users should be aware that target concentrations vary widely depending on concomitant therapy, time post- transplant, and desired degree of immunosuppression.[facility] HospitalOSU [facility] HospitalTacrolimus, Trough7.8 ng/mLNormalBone Marrow Transplant: 5.0-15.0 Kidney/Pancreatic Transplant: 0 to 3 months: 8.0-10.0, 3 to 12 months: 6.0-8.0, >12 months: 4.0-6.0[facility] Medical CenterComment on above:Order Comment: Please draw at specified interval PRIOR to dose. Do not hold dose to wait for level.Specimens batched twice per day, (M-F) and once per day weekendsMethod performed is a chemiluminescent microparticle immunoasssay on the MOGL Activity Therapy Specialist i2000.The range is based on [facility] users should be aware that target concentrations vary widely depending on concomitant therapy, time post-transplant, and desired degree of immunosuppression.Performed By: #### MGO, CHM7, IPB #### [facility] (DEFAULT) [address] [id number],PLATELETSon 71-18-5845Kmyajzddsoh distribution width (RBC) [Ratio]12.8 %10.9 - 14.3 %[facility] HospitalHematocrit (Bld) [Volume fraction]25.1 %Low39.6 - 48.8 %[facility] HospitalHemoglobin (Bld) [Mass/Vol]8.0 g/dLLow13.4 - 16.8 g/dLMarietta Memorial HospitalInterpretation and review of laboratory resultsAbnormHighland District HospitalH (RBC) [Entitic mass]30.4 pg26.1 - 33.3 pgOSHarrison Community HospitalHC (RBC) [Mass/Vol]31.9 g/dL31.9 - 36.5 g/dLMarietta Memorial HospitalMCV (RBC) [Entitic vol]95.4 fLHigh 79.0 - 94.5 [facility] Main CampusPlatelet mean volume (Bld) [Entitic vol] [facility] HospitalComment on above:Not measuredPlatelets (Bld) [#/Vol]141 10*3/dYYls417 - 337 K/uLOSMercy Health Springfield Regional Medical CenterRBC (Bld) [#/Vol]2.63 10*6/uL LowMarietta Memorial HospitalWBC (Bld) [#/Vol]6.70 10*3/uL3.73 - 10.10 K/uLOSU [facility] HospitalOS[facility] HospitalHematocrit (Bld) [Volume fraction] 25.1 %Low39.6-48.8[facility] Medical CenterComment on above: Performed By: #### JUAN GUILLEN, IPB #### [facility] (DEFAULT) [address] [place] [address] 68283Wtvomsaygp (Bld) [Mass/Vol]8.0 g/dLLow13.4-16.8[facility] Medical CenterComment on above:Performed By: #### JUAN GUILLEN, IPB #### [facility] (DEFAULT) [address] [place] [address] 53606NOO (RBC) [Entitic vol]95.4 mGGnrq76.0-94.5[facility] Medical CenterComment on above:Performed By: #### JUAN GUILLEN, IPB #### [facility] (DEFAULT) [address] [place] [address] 06080Mqyp Cell Hgb30.4 cgRbozpa72.1-33.3[facility] CenterComment on above:Performed By: #### SHAHNAZ GUILLENM7, IPB #### [facility] (DEFAULT) [address] [place] [address] 95288Zvma Cell Hgb Conc31.9 g/zFCjxxjh27.9-36.5[facility] CenterComment on above:Performed By: #### MGSHAHNAZ StephensonMTeresa, IPB #### [facility] (DEFAULT) [address] [place] [address] 83841Cgxk Platelet VolumeNormalOhio Ohiohealth Berger HospitalComment on above:Result Comment: Not measuredPerformed By: #### MGSeema CHM7, IPB #### [facility] (DEFAULT) [address] [place] [address] 31978Sxrwntmsg (Bld) [#/Vol]141 10*3/eFTji140-627GojlMetrohealth Cleveland Heights Medical CenterComment on above:Performed By: #### JUAN GUILLEN, IPB #### [facility]DEFAULT[facility] [address] [place] [address] 03047NHJ (Bld) [#/Vol]2.63 10*6/uLLow4.38-5.83[facility] CenterComment on above:Performed By: #### JUAN GUILLEN, IPB #### [facility] (DEFAULT) [address] [place] [address] 39622OKL Bcchqnhysymi26.8 %Ytuyty49.9-14.3[facility] Medical CenterComment on above:Performed By: #### JUAN GUILLEN, IPB #### [facility] (DEFAULT) [address] [place] [address] 35440EUL (Bld) [#/Vol]6.70 10*3/uLNormal3.73-10.10[facility] CenterComment on above:Performed By: #### JUAN GUILLEN, IPB #### [facility] (DEFAULT) [address] [place] [address] 58264WHXP 7 (LYTES,BUN,CREA,GLUC)on 23-24-9786Rwazz gap [Moles/Vol] 13 mmol/L7 - 17 mmol/[facility] HospitalChloride [Moles/Vol]111 mmol/L High98 - 108 mmol/[facility] HospitalCO2 [Moles/Vol]21 mmol/L21 - 31 mmol/[facility] HospitalCreatinine [Mass/Vol]2.32 mg/dLHigh0.70 - 1.30 mg/dLMarietta Memorial HospitaleGFR, CKD-EPI, Yaoi95Mmx- PINFOFort Hamilton HospitalComment on above:Reported eGFR is based on the CKD-EPI 2020 equation using creatinine, age, and sex.Glucose [Mass/Vol]96 mg/dL70 - 99 mg/dLMarietta Memorial HospitalInterpretation and review of laboratory resultsAbnormalOUnityPoint Health-Keokuk Medical CenterOsmolality Calc [Osmolality]305[facility] HospitalPotassium [Moles/Vol]5.1 mmol/LHigh3.5 - 5.0 mmol/LOSU [facility] Children's Medical Centerodium [Moles/Vol]140 mmol/L135 - 145 mmol/[facility]ITALU [facility] HospitalUrea nitrogen [Mass/Vol]43 mg/dLHigh7 - 25 mg/dLMarietta Memorial HospitalUrea nitrogen/Creatinine [Mass ratio]19 mg/mgMarietta Memorial HospitalAnion gap [Moles/Vol]13 mmol/LNormal7-17[facility] CenterComment on above:Performed By: #### HEMOGC #### [facility] (DEFAULT) [address] [place] [address] 73007Cojdwnab [Moles/Vol]111 mmol/FTbfc75-271PrpeMetrohealth Cleveland Heights Medical CenterComment on above:Performed By: #### HEMOGC #### [facility] (DEFAULT) [address] [place] [address] 93848FL8 [Moles/Vol]21 mmol/SZmsfvi04-08HonyMetrohealth Cleveland Heights Medical CenterComment on above:Performed By: #### HEMOGC #### [facility] (DEFAULT) [address] [place] [address] 86494Mtawbjhuzn [Mass/Vol]2.32 mg/dLHigh0.70-1.30[facility] CenterComment on above:Performed By: #### HEMOGC #### [facility] (DEFAULT) [address] [address]TAI/1.73 sq M.predicted among non-blacks MDRD (S/P/Bld) [Vol rate/Area]32 mL/min/{1.73_m2}Low>=60[facility] Comment on above:Result Comment: Reported eGFR is based on the CKD-EPI 2020 equation using creatinine, age, and sex.Performed By: #### HEMOGC #### [facility] (DEFAULT) [address] [address]Tzzfzdq [Mass/Vol]96 mg/eRRcwddb87-41DiavMetrohealth Cleveland Heights Medical CenterComment on above:Performed By: #### HEMOGC #### [facility] (DEFAULT) [address] [place] [address] 02766Fcpfhvsied [Osmolality]305 mosm/nlNoycgb263-524TmqtMetrohealth Cleveland Heights Medical CenterComment on above:Performed By: #### HEMOGC #### [facility] (DEFAULT) [address] [place] [address] 73599Lxyhaclyh [Moles/Vol]5.1 mmol/LHigh3.5-5.0[facility] CenterComment on above:Performed By: #### HEMOGC #### [facility] (DEFAULT) [address] [place] [address] 04946Zxlpxx [Moles/Vol]140 mmol/LGsfouq676-557NnbvMetrohealth Cleveland Heights Medical CenterComment on above:Performed By: #### HEMOGC #### [facility] (DEFAULT) [address] [place] [address] 43945Wixf nitrogen [Mass/Vol]43 mg/dLHigh7-25[facility] CenterComment on above:Performed By: #### HEMOGC #### [facility] (DEFAULT) [address] [place] [address] 66775Ktmn nitrogen/Creatinine [Mass ratio]19 mg/mgNormalOhio Ohiohealth Berger HospitalComment on above:Performed By: #### HEMOGC #### [facility] (DEFAULT) [address] [place] [address] 11943DZTYEOXWQG CARDIAC MONITORING STRIPon [phone] Health Springfield Regional Medical CenterOSMercy Health Springfield Regional Medical CenterMAGNESIUMon 13-39-3385Kqogliuox [Mass/Vol]1.8 mg/dL1.6 - 2.6 mg/dLMarietta Memorial HospitalMagnesium [Mass/Vol] 1.8 mg/dLNormal1.6-2.6[facility] CenterComment on above:Performed By: #### HEMOGC #### [facility] (DEFAULT) [address] [place], [place] [address]Fk Panel Informationon 57-59-4666Fzsgtarfvrowch and review of laboratory resultsNormSutter Davis Hospital PHOSPHATE, INORGANICon 21-72-4024Bdbcaujoz [Mass/Vol]2.3 mg/dL2.2 - 4.6 mg/dLMarietta Memorial HospitalPhosphorous2.3 mg/dLNormal2.2-4.6[facility] CenterComment on above:Performed By: #### HEMOGC #### [facility] (DEFAULT) [address] [place] [address] 85478ZGCLUTTWJI LEVEL, TROUGH (PRE DRUG LEVEL)on 03-26-2024 Tacrolimus (Bld) [Mass/Vol]8.5 ng/mLBone Marrow Transplant: 5.0-15.0 Kidney/Pancreatic Transplant: 0 to 3 months: 8.0-10.0, 3 to 12 months: 6.0-8.0, >12 months: 4.0-6.0OSMercy Health Springfield Regional Medical CenterMethod performed is a chemiluminescent microparticle immunoasssay on the Cash Activity Therapy Specialist i2000. The range is based on experience at [facility] and users should be aware that target concentrations vary widely depending on concomitant therapy, time post- transplant, and desired degree of immunosuppression.[facility] HospitalOSMercy Health Springfield Regional Medical CenterTacrolimus, Trough8.5 ng/mLNormalBone Marrow Transplant: 5.0-15.0 Kidney/Pancreatic Transplant: 0 to 3 months: 8.0-10.0, 3 to 12 months: 6.0-8.0, >12 months: 4.0-6.0[facility] CenterComment on above:Order Comment: Please draw at specified interval PRIOR to dose. Do not hold dose to wait for level.Specimens batched twice per day, (M-F) and once per day weekendsMethod performed is a chemiluminescent microparticle immunoasssay on the Cash Activity Therapy Specialist i2000.The range is based on experience at [facility] users should be aware that target concentrations vary widely depending on concomitant therapy, time post-transplant, and desired degree of immunosuppression.Performed By: #### HEMOGC #### [facility] (DEFAULT) [address] [place], [place] [address]EQSXOXMhx 66-14-0479Jlayecl [Mass/Vol]8.7 mg/dL8.6 - 10.5 mg/dLOSMercy Health Springfield Regional Medical CenterCalcium [Mass/Vol]8.7 mg/dLNormal8.6-10.5[facility] Medical CenterComment on above:Performed By: #### HEMOGC #### [facility] (DEFAULT) [address] [place], [place] [address]XLW AND ELECTRONIC DIFFon [phone] (Bld) [#/Vol] K/uL0.00 - 0.09 K/uLMarietta Memorial HospitalBasophils/100 WBC (Bld)0.4 %[facility] HospitalDifferential cell count method Nom (Bld)Electronic DifferentialMarietta Memorial HospitalEosinophils (Bld) [#/Vol]0.16 10*3/uL0.00 - 0.48 K/uLMarietta Memorial HospitalEosinophils/100 WBC (Bld)2.2 %[facility] HospitalErythrocyte distribution width (RBC) [Ratio]13.2 %10.9 - 14.3 %[facility] HospitalComment on above:This is an appended report. These results have been appended to a previously preliminary verified report.Hematocrit (Bld) [Volume fraction]21.3 %Low39.6 - 48.8 %[facility] HospitalComment on above:This is an appended report. These results have been appended to a previously preliminary verified report.Hemoglobin (Bld) [Mass/Vol]6.5 g/dL Critically low13.4 - 16.8 g/dLMarietta Memorial HospitalComment on above:This result has been called to ALINE ISRAEL RN by João Peña on 03 25 2024 at 1727, and has beenread back. This is an appended report. These results have been appended to a previously preliminary verified report. Immature granulocytes (Bld) [#/Vol]0.04 10*3/uLNINF - 0.07 K/uLMarietta Memorial HospitalImmature granulocytes/100 WBC (Bld)0.6 %[facility] Interpretation and review of laboratory resultsAbnoOhioHealth Dublin Methodist Hospital Lymphocytes (Bld) [#/Vol]1.05 10*3/uL0.83 - 3.57 K/[facility] Lymphocytes/100 WBC (Bld)14.7 %[facility] Memorial HospitalMCH (RBC) [Entitic mass] 29.7 pg26.1 - 33.3 pgMarietta Memorial HospitalComment on above:This is an appended report. These results have been appended to a previously preliminary verified report.MCHC (RBC) [Mass/Vol]30.5 g/dLLow31.9 - 36.5 g/dLMarietta Memorial HospitalComment on above:This is an appended report. These results have been appended to a previously preliminary verified report.MCV (RBC) [Entitic vol]97.3 lACebd62.0 - 94.5 [facility] Main CampusComment on above:This is an appended report. These results have been appended to a previously preliminary verified report.Monocytes (Bld) [#/Vol]0.44 10*3/uL0.24 - 0.93 K/Kindred HealthcareMonocytes/100 WBC (Bld)6.2 %[facility] HospitalNeutrophils (Bld) [#/Vol]5.43 10*3/uL1.57 - 6.19 K/uLMarietta Memorial HospitalNucleated RBC/100 WBC (Bld) [Ratio]0.0 %[facility] HospitalComment on above:This is an appended report. These results have been appended to a previously preliminary verified report.Platelet mean volume (Bld) [Entitic vol][facility] HospitalComment on above:Not measuredPlatelets (Bld) [#/Vol]121 10*3/uLLow 146 - 337 K/uLMarietta Memorial HospitalComment on above:This is an appended report. These results have been appended to a previously preliminary verified re port.RBC (Bld) [#/Vol]2.19 10*6/uLLowMarietta Memorial HospitalComment on above: This is an appended report. These results have been appended to a previously preliminary verified report.Segmented neutrophils/100 WBC (Bld)75.9 %[facility] HospitalWBC (Bld) [#/Vol]7.15 10*3/uL3.73 - 10.10 K/uLMarietta Memorial HospitalComment on above:This is an appended report. These results have been appended to a previously preliminary verified report.[facility] Abs Baso Auto<Normal0.00-0.09[facility] CenterComment on above:Performed By: #### HEMOGC #### [facility] (DEFAULT) [address] [address]Fkkeeyded/100 WBC (Bld)0.4 %NormalMetrohealth Cleveland Heights Medical CenterComment on above:Performed By: #### HEMOGC #### [facility] (DEFAULT) [address] [address]UOEQ STATUSElectronic DifferentialNoalOProMedica Memorial HospitalComment on above:Performed By: #### HEMOGC #### [facility] (DEFAULT) [address] [address]Hafuwsisuir (Bld) [#/Vol]0.16 10*3/uLNormal0.00-0.48[facility] CenterComment on above:Performed By: #### HEMOGC #### [facility] (DEFAULT) [address] [address]Vtkiywqmuxd/100 WBC (Bld)2.2 %NormalMetrohealth Cleveland Heights Medical CenterComment on above:Performed By: #### HEMOGC #### [facility] (DEFAULT) [address] [address]Rtrrresqwa (Bld) [Volume fraction]21.3 %Low39.6-48.8[facility] Medical CenterComment on above:Result Comment: This is an appended report. These results have been appended to a previously preliminary verified report.Performed By: #### HEMOGC #### [facility] (DEFAULT) [address] [place] [address]Pvsqyjxods (Bld) [Mass/Vol]6.5 g/dLCritically low13.4-16.8[facility] CenterComment on above:Result Comment: This result has been called to ALINE ISRAEL RN by João Peña on 03 25 2024 at 172 7, and has been read back. This is an appended report. These results have been appended to a previously preliminary verified report.Performed By: #### HEMOGC #### [facility] (DEFAULT) [address] [address]Oiaqliij Grans %0.6 %NormalMetrohealth Cleveland Heights Medical CenterComment on above:Performed By: #### HEMOGC #### [facility] (DEFAULT) [address] [address]Uunxyogu Grans Absolute0.04 K/uLNormal<=0.07[facility] CenterComment on above:Performed By: #### HEMOGC #### [facility] (DEFAULT) [address] [place] [address]Evrpucwxyca (Bld) [#/Vol]1.05 10*3/uLNormal0.83-3.57[facility] CenterComment on above:Performed By: #### HEMOGC #### [facility] (DEFAULT) [address] [address]Glswismmjys/100 WBC (Bld)14.7 %[facility] HospitalComment on above:Performed By: #### HEMOGC #### [facility] (DEFAULT) [address] [place] [address] 45334TPD (RBC) [Entitic vol]97.3 vWOlzs26.0-94.5[facility] CenterComment on above:Result Comment: This is an appended report. These results have been appended to a previously preliminary verified report.Performed By: #### HEMOGC #### [facility] (DEFAULT) [address] [place] [address]Juku Cell Hgb29.7 feOkvpan37.1-33.3[facility] CenterComment on above:Result Comment: This is an appended report. These results have been appended to a previously preliminary verified report.Performed By: #### HEMOGC #### [facility] (DEFAULT) [address] [address]Udoe Cell Hgb Conc30.5 g/dLLow31.9-36.5[facility] CenterComment on above:Result Comment: This is an appended report. These results have been appended to a previously preliminary verified report.Performed By: #### HEMOGC #### [facility] (DEFAULT) [address] [place] [address]Iknt Platelet VolumeNormalOhio Ohiohealth Berger HospitalComment on above:Result Comment: Not measuredPerformed By: #### HEMOGC #### [facility] (DEFAULT) [address] [place] [address]Pixdnfybm (Bld) [#/Vol]0.44 10*3/uLNormal0.24-0.93[facility] CenterComment on above:Performed By: #### HEMOGC #### [facility] (DEFAULT) [address] [address]Kphgepyye/100 WBC (Bld)6.2 %NormalMetrohealth Cleveland Heights Medical CenterComment on above:Performed By: #### HEMOGC #### [facility] (DEFAULT) [address] [place] [address] 005[address]Twtwwmhik RBC0.0 /100 WBCNormal<=0.2[facility] CenterComment on above:Result Comment: This is an appended report. These results have been appended to a previously preliminary verified report.Performed By: #### HEMOGC #### [facility] (DEFAULT) [address] [place] [address]Raxoeofid (Bld) [#/Vol]121 10*3/vBAwf923-060XmrkMetrohealth Cleveland Heights Medical CenterComment on above:Result Comment: This is an appended report. These results have been appended to a previously preliminary verified report.Performed By: #### HEMOGC #### [facility] (DEFAULT) [address] [place] [address] 579[address]QZJ (Bld) [#/Vol]2.19 10*6/uLLow4.38-5.83[facility] CenterComment on above:Result Comment: This is an appended report. These results have been appended to a previously preliminary verified report.Performed By: #### HEMOGC #### [facility] (DEFAULT) [address] [place] [address]PUA Ehmafiqgagde99.2 %Gzlfyo20.9-14.3[facility] CenterComment on above:Result Comment: This is an appended report. These results have been appended to a previously preliminary verified report.Performed By: #### HEMOGC #### [facility] (DEFAULT) [address] [place] [address] 436[address]Wfvm + Bands Auto75.9 %NormalMetrohealth Cleveland Heights Medical CenterComment on above:Performed By: #### HEMOGC #### [facility] (DEFAULT) [address] [place] [address]47[address]Cqwr + Bands,Absolute Auto5.43 K/uLNormal1.57-6.19[facility] CenterComment on above:Performed By: #### HEMOGC #### [facility] (DEFAULT) [address] [place] [address] 93422QVM (Bld) [#/Vol]7.15 10*3/uLNormal3.73-10.10[facility] CenterComment on above:Result Comment: This is an appended report. These results have been appended to a previously preliminary verified report.Performed By: #### HEMOGC #### [facility] (DEFAULT) [address] [place] [address] 18564HWG,PLATELETSon 26-35-1713Msmzhfqnkzq distribution width (RBC) [Ratio]13.1 %10.9 - 14.3 %[facility] HospitalHematocrit (Bld) [Volume fraction]26.8 %Low39.6 - 48.8 %[facility] HospitalHemoglobin (Bld) [Mass/Vol]8.2 g/dLLow13.4 - 16.8 g/dLMarietta Memorial HospitalInterpretation and review of laboratory resultsAbnormHighland District HospitalH (RBC) [Entitic mass]29.4 pg26.1 - 33.3 pgMarietta Memorial HospitalMCHC (RBC) [Mass/Vol]30.6 g/dLLow31.9 - 36.5 g/dLMarietta Memorial HospitalMCV (RBC) [Entitic vol]96.1 fL High79.0 - 94.5 [facility] CampusPlatelet mean volume (Bld) [Entitic vol]11.4 fL8.7 - 12.3 [facility] CampusPlatelets (Bld) [#/Vol]148 10*3/uL146 - 337 K/uLMarietta Memorial HospitalRBC (Bld) [#/Vol]2.79 10*6/uLLow [facility] HospitalWBC (Bld) [#/Vol]8.94 10*3/uL3.73 - 10.10 K/uLMarietta Memorial HospitalOSMercy Health Springfield Regional Medical CenterHematocrit (Bld) [Volume fraction] 26.8 %Low39.6-48.8[facility] CenterComment on above: Performed By: #### HEMOGC #### [facility] (DEFAULT) [address] [address]Ofwxvfrprz (Bld) [Mass/Vol]8.2 g/dLLow13.4-16.8[facility] CenterComment on above:Performed By: #### HEMOGC #### [facility] (DEFAULT) [address] [place] [address] 04181TWY (RBC) [Entitic vol]96.1 lECtug95.0-94.5[facility] CenterComment on above:Performed By: #### HEMOGC #### [facility] (DEFAULT) [address] [place] [address]25[address]Fpus Cell Hgb29.4 ksOsgfzb01.1-33.3[facility] CenterComment on above:Performed By: #### HEMOGC #### [facility] (DEFAULT) [address] [place] [address] 040[address]Vmgq Cell Hgb Conc30.6 g/dLLow31.9-36.5[facility] CenterComment on above:Performed By: #### HEMOGC #### [facility] (DEFAULT) [address] [place] [address] 29237Vmoexmup mean volume (Bld) [Entitic vol]11.4 fLNormal8.7-12.3 [facility] CenterComment on above:Performed By: #### HEMOGC #### [facility] (DEFAULT) [address] [place] [address] 47679Azzmlkhdh (Bld) [#/Vol]148 10*3/fIXdjmyn663-316YkhbMetrohealth Cleveland Heights Medical CenterComment on above:Performed By: #### HEMOGC #### [facility] (DEFAULT) [address] [place] [address] 666[address]GON (Bld) [#/Vol]2.79 10*6/uLLow4.38-5.83[facility] CenterComment on above:Performed By: #### HEMOGC #### [facility] (DEFAULT) [address] [place] [address] 33272SDH Wtrqyoijrsmn29.1 %Pfpvkp39.9-14.3[facility] CenterComment on above:Performed By: #### HEMOGC #### [facility] (DEFAULT) [address] [place], [place] [address]YJP (Bld) [#/Vol]8.94 10*3/uLNormal3.73-10.10[facility] CenterComment on above:Performed By: #### HEMOGC #### [facility] (DEFAULT) [address] [place], [place] [address]Itkmpmmekih distribution width (RBC) [Ratio]13.2 %10.9 - 14.3 %[facility] HospitalHematocrit (Bld) [Volume fraction]25.2 %Low39.6 - 48.8 %[facility] HospitalHemoglobin (Bld) [Mass/Vol]8.0 g/dLLow13.4 - 16.8 g/dL [facility] HospitalInterpretation and review of laboratory resultsAbnormal [facility] HospitalMCH (RBC) [Entitic mass]29.9 pg26.1 - 33.3 pgMarietta Memorial HospitalMCHC (RBC) [Mass/Vol]31.7 g/dLLow31.9 - 36.5 g/dLMarietta Memorial HospitalMCV (RBC) [Entitic vol]94.0 fL79.0 - 94.5 [facility] CampusPlatelet mean volume (Bld) [Entitic vol]11.5 fL8.7 - 12.3 [facility] CampusPlatelets (Bld) [#/Vol]149 10*3/uL146 - 337 K/uLMarietta Memorial HospitalRBC (Bld) [#/Vol]2.68 10*6/uLLowU [facility] HospitalWBC (Bld) [#/Vol]8.93 10*3/uL3.73 - 10.10 K/uLU [facility] HospitalOSMercy Health Springfield Regional Medical CenterHematocrit (Bld) [Volume fraction]25.2 %Low39.6-48.8[facility] CenterComment on above:Performed By: #### JUAN GUILLEN, IPB #### [facility] (DEFAULT) [address] [place] [address] 38[address]Hivqlzjeff (Bld) [Mass/Vol]8.0 g/dLLow13.4-16.8[facility] CenterComment on above:Performed By: #### JUAN GUILLEN, IPB #### [facility] (DEFAULT) [address] [place] [address] 701[address]BZE (RBC) [Entitic vol]94.0 mEWzbvky43.0-94.5[facility] CenterComment on above:Performed By: #### JUAN GUILLEN, IPB #### [facility] (DEFAULT) [address] [place] [address] 249[address]Wzct Cell Hgb29.9 zdYdinja83.1-33.3[facility] CenterComment on above:Performed By: #### JUAN GUILLEN, IPB #### [facility] (DEFAULT) [address] [place] [address] 019[address]Uhid Cell Hgb Conc31.7 g/dLLow31.9-36.5[facility] CenterComment on above:Performed By: #### JUAN GUILLEN, IPB #### [facility] (DEFAULT) [address] [place] [address] 78[address]Gfeyvnub mean volume (Bld) [Entitic vol]11.5 fLNormal8.7-12.3 [facility] CenterComment on above:Performed By: #### JUAN GUILLEN, IPB #### [facility] (DEFAULT) [address] [place] [address] 96389Gnxskizwo (Bld) [#/Vol]149 10*3/zMSyobgk486-347SdttMetrohealth Cleveland Heights Medical CenterComment on above:Performed By: #### JUAN GUILLEN, IPB #### [facility] (DEFAULT) [address] [place], [place] [address]SKT (Bld) [#/Vol]2.68 10*6/uLLow4.38-5.83[facility] CenterComment on above:Performed By: #### JUAN GUILLEN, IPB #### [facility] (DEFAULT) [address] [place], [place] [address]JAT Arioqaoezfyz57.2 %Yuwrce16.9-14.3[facility] CenterComment on above:Performed By: #### JUAN GUILLEN, IPB #### [facility] (DEFAULT) [address] [place] [address] 595[address]QRY (Bld) [#/Vol]8.93 10*3/uLNormal3.73-10.10[facility] CenterComment on above:Performed By: #### JUAN GUILLEN, IPB #### [facility] (DEFAULT) [address] [place] [address] 64490Qtnavfyjjch distribution width (RBC) [Ratio]13.2 %10.9 - 14.3 %[facility] HospitalHematocrit (Bld) [Volume fraction]25.1 %Low39.6 - 48.8 %[facility] HospitalHemoglobin (Bld) [Mass/Vol]8.0 g/dLLow13.4 - 16.8 g/dL [facility] HospitalInterpretation and review of laboratory resultsAbnormal [facility] HospitalMCH (RBC) [Entitic mass]30.2 pg26.1 - 33.3 pgMarietta Memorial HospitalMCHC (RBC) [Mass/Vol]31.9 g/dL31.9 - 36.5 g/dLMarietta Memorial HospitalMCV (RBC) [Entitic vol]94.7 lJQrhh88.0 - 94.5 [facility] Platelet mean volume (Bld) [Entitic vol]11.7 fL8.7 - 12.3 [facility] CampusPlatelets (Bld) [#/Vol]150 10*3/uL146 - 337 K/[facility]U [facility] RBC (Bld) [#/Vol]2.65 10*6/uLLowU [facility] HospitalWBC (Bld) [#/Vol]9.82 10*3/uL3.73 - 10.10 K/uLU [facility] HospitalOSU [facility] Hematocrit (Bld) [Volume fraction]25.1 %Low39.6-48.8[facility] CenterComment on above:Performed By: #### HEMOGC #### [facility] (DEFAULT) [address] [address]Uzdyawgocm (Bld) [Mass/Vol]8.0 g/dLLow13.4-16.8[facility] CenterComment on above:Performed By: #### HEMOGC #### [facility] (DEFAULT) [address] [place] [address] 908[address]WEX (RBC) [Entitic vol]94.7 hVJbas74.0-94.5[facility] CenterComment on above:Performed By: #### HEMOGC #### [facility] (DEFAULT) [address] [place] [address] 36042Qzpx Cell Hgb30.2 ekOsilib79.1-33.3[facility] CenterComment on above:Performed By: #### HEMOGC #### [facility] (DEFAULT) [address] [place] [address]Akri Cell Hgb Conc31.9 g/wRCdunwn89.9-36.5[facility] CenterComment on above:Performed By: #### HEMOGC #### [facility] (DEFAULT) [address] [place] [address] 45538Uolbqqrv mean volume (Bld) [Entitic vol]11.7 fLNormal8.7-12.3 [facility] CenterComment on above:Performed By: #### HEMOGC #### [facility] (DEFAULT) [address] [place], [place] [address]Wfjjqcigp (Bld) [#/Vol]150 10*3/tKDimpbd895-723LlhvMetrohealth Cleveland Heights Medical CenterComment on above:Performed By: #### HEMOGC #### [facility] (DEFAULT) [address] [place], [place] [address]DIB (Bld) [#/Vol]2.65 10*6/uLLow4.38-5.83[facility] CenterComment on above:Performed By: #### HEMOGC #### [facility] (DEFAULT) [address] [place] [address] 29[address]BMK Cwctknseeuwt93.2 %Kntfcr95.9-14.3[facility] CenterComment on above:Performed By: #### HEMOGC #### [facility] (DEFAULT) [address] [place] [address] 622[address]MHW (Bld) [#/Vol]9.82 10*3/uLNormal3.73-10.10[facility] CenterComment on above:Performed By: #### HEMOGC #### [facility] (DEFAULT) [address] [place] [address] 70898CUVO 7 (LYTES,BUN,CREA,GLUC)on 98-46-8323Xvyvu gap [Moles/Vol] 11 mmol/L7 - 17 mmol/[facility] HospitalChloride [Moles/Vol]112 mmol/L High98 - 108 mmol/[facility] HospitalCO2 [Moles/Vol]24 mmol/L21 - 31 mmol/[facility] HospitalCreatinine [Mass/Vol]2.49 mg/dLHigh0.70 - 1.30 mg/dLU [facility] HospitaleGFR, CKD-EPI, Dibg93Vnh- PINFOSU [facility] HospitalComment on above:Reported eGFR is based on the CKD-EPI 2020 equation using creatinine, age, and sex.Glucose [Mass/Vol]96 mg/dL70 - 99 mg/dLOSU [facility]xner Medical CenterOsmolality Calc [Osmolality]310HighU [facility] Potassium [Moles/Vol]5.0 mmol/L3.5 - 5.0 mmol/LOSU [facility] Medical Centerodium [Moles/Vol]142 mmol/L135 - 145 mmol/[facility] HospitalUrea nitrogen [Mass/Vol]45 mg/dLHigh7 - 25 mg/dLMarietta Memorial HospitalUrea nitrogen/Creatinine [Mass ratio]18 mg/mgMarietta Memorial HospitalAnion gap [Moles/Vol]11 mmol/LNormal7-17[facility] CenterComment on above:Performed By: #### JUAN GUILLEN, IPB #### [facility] (DEFAULT) [address] [place], [place] [address]Aeoazezi [Moles/Vol]112 mmol/TBimv11-719UeqgMetrohealth Cleveland Heights Medical CenterComment on above:Performed By: #### JUAN GUILLEN, IPB #### [facility] (DEFAULT) [address] [place], [place] [address]MP2 [Moles/Vol]24 mmol/RSgelff09-08CzqbMetrohealth Cleveland Heights Medical CenterComment on above:Performed By: #### JUAN GUILLEN, IPB #### [facility] (DEFAULT) [address] [place] [address] 70167Erxhogyaiw [Mass/Vol]2.49 mg/dLHigh0.70-1.30[facility] CenterComment on above:Performed By: #### JUAN GUILLEN, IPB #### [facility] (DEFAULT) [address] [place] [address]JOE/1.73 sq M.predicted among non-blacks MDRD (S/P/Bld) [Vol rate/Area]30 mL/min/{1.73_m2}Low>=60[facility] Comment on above:Result Comment: Reported eGFR is based on the CKD-EPI 2020 equation using creatinine, age, and sex.Performed By: #### JUAN GUILLEN, IPB #### [facility] (DEFAULT) [address] [place] [address] 795[address]Kaizeho [Mass/Vol]96 mg/uQXmeoga37-36OgifMetrohealth Cleveland Heights Medical CenterComment on above:Performed By: #### JUAN GUILLEN, IPB #### [facility] (DEFAULT) [address] [place] [address] 95[address]Taxnbucrjl [Osmolality]310 mosm/fuCmzt042-105MwkiMetrohealth Cleveland Heights Medical CenterComment on above:Performed By: #### JUAN GUILLEN, IPB #### [facility] (DEFAULT) [address] [place] [address] 50[address]Exiwjwdyu [Moles/Vol]5.0 mmol/LNormal3.5-5.0[facility] CenterComment on above:Performed By: #### JUAN GUILLEN, IPB #### [facility] (DEFAULT) [address] [place] [address] 36[address]Wxehxp [Moles/Vol]142 mmol/NWfmizb943-036EdszMetrohealth Cleveland Heights Medical CenterComment on above:Performed By: #### JUAN GUILLEN, IPB #### [facility] (DEFAULT) [address] [place] [address] 06989Wtuv nitrogen [Mass/Vol]45 mg/dLHigh7-25[facility] CenterComment on above:Performed By: #### JUAN GUILLEN, IPB #### [facility] (DEFAULT) [address] [place] [address] 69345Uhyb nitrogen/Creatinine [Mass ratio]18 mg/mgNormalOhiMercy Health St. Elizabeth Boardman HospitalComment on above:Performed By: #### JUAN GUILLEN, IPB #### [facility] (DEFAULT) [address] [place] [address] 30742Yncar gap [Moles/Vol]12 mmol/L7 - 17 mmol/LOSU [facility] HospitalChloride [Moles/Vol]111 mmol/LHigh98 - 108 mmol/[facility] CO2 [Moles/Vol]24 mmol/L21 - 31 mmol/[facility] HospitalCreatinine [Mass/Vol]2.51 mg/dLHigh0.70 - 1.30 mg/dLMarietta Memorial HospitaleGFR, CKD-EPI, Gaqn74Nwz- PINFOFort Hamilton HospitalComment on above:Reported eGFR is based on the CKD-EPI 2020 equation using creatinine, age, and sex.Glucose [Mass/Vol] 110 mg/zQIocq41 - 99 mg/dLMarietta Memorial HospitalInterpretation and review of laboratory resultsAbnoOhioHealth Dublin Methodist HospitalOsmolality Calc [Osmolality] 310HighMarietta Memorial HospitalPotassium [Moles/Vol]5.2 mmol/LHigh3.5 - 5.0 mmol/[facility] Southodium [Moles/Vol]142 mmol/L135 - 145 mmol/[facility] HospitalUrea nitrogen [Mass/Vol]43 mg/dLHigh7 - 25 mg/dLMarietta Memorial HospitalUrea nitrogen/Creatinine [Mass ratio]17 mg/mgMarietta Memorial HospitalAnion gap [Moles/Vol]12 mmol/LNormal7-17[facility] CenterComment on above:Performed By: #### JUAN GUILLEN, IPB #### [facility] (DEFAULT) [address] [place], [place] [address]Gofmwggz [Moles/Vol]111 mmol/FKoxx21-115OzkhMetrohealth Cleveland Heights Medical CenterComment on above:Performed By: #### JUAN GUILLEN, IPB #### [facility] (DEFAULT) [address] [place], [place] [address]IX1 [Moles/Vol]24 mmol/BTutibs80-35XkttMetrohealth Cleveland Heights Medical CenterComment on above:Performed By: #### JUAN GUILLEN, IPB #### [facility] (DEFAULT) [address] [place], [place] [address]Xuufliewfr [Mass/Vol]2.51 mg/dLHigh0.70-1.30[facility] CenterComment on above:Performed By: #### JUAN GUILLEN, IPB #### [facility] (DEFAULT) [address] [place] [address] 00743YVA/1.73 sq M.predicted among non-blacks MDRD (S/P/Bld) [Vol rate/Area]29 mL/min/{1.73_m2}Low>=60[facility] Comment on above:Result Comment: Reported eGFR is based on the CKD-EPI 2020 equation using creatinine, age, and sex.Performed By: #### JUAN GUILLEN, IPB #### [facility] (DEFAULT) [address] [place] [address] 03330Scjzgsy [Mass/Vol]110 mg/mHCqug42-27DerjMetrohealth Cleveland Heights Medical CenterComment on above:Performed By: #### JUAN GUILLEN, IPB #### [facility] (DEFAULT) [address] [place] [address] 11162Iurgxismgd [Osmolality]310 mosm/xySdoj918-370GnujMetrohealth Cleveland Heights Medical CenterComment on above:Performed By: #### JUAN GUILLEN, IPB #### [facility] (DEFAULT) [address] [place] [address] 13205Mjmuffntv [Moles/Vol]5.2 mmol/LHigh3.5-5.0[facility] CenterComment on above:Performed By: #### JUAN GUILLEN, IPB #### [facility] (DEFAULT) [address] [place] [address] 02215Dbqzkt [Moles/Vol]142 mmol/WLbfpqq920-837LhfhMetrohealth Cleveland Heights Medical CenterComment on above:Performed By: #### JUAN GUILLEN, IPB #### [facility] (DEFAULT) [address] [place] [address] 58586Cjks nitrogen [Mass/Vol]43 mg/dLHigh7-25[facility] CenterComment on above:Performed By: #### JUAN GUILLEN, IPB #### [facility] (DEFAULT) [address] [place], [place] [address]Spls nitrogen/Creatinine [Mass ratio]17 mg/mgNoMercy HealthComment on above:Performed By: #### JUAN GUILLEN, IPB #### [facility] (DEFAULT) [address] [place], [place] [address]Uswkg gap [Moles/Vol]12 mmol/L7 - 17 mmol/[facility] HospitalChloride [Moles/Vol]110 mmol/LHigh98 - 108 mmol/[facility] CO2 [Moles/Vol]24 mmol/L21 - 31 mmol/[facility] HospitalCreatinine [Mass/Vol]2.60 mg/dLHigh0.70 - 1.30 mg/dLMarietta Memorial HospitaleGFR, CKD-EPI, Gwnt84Yfe- [facility] Hospital - YoungstownComment on above:Reported eGFR is based on the CKD-EPI 2020 equation using creatinine, age, and sex.Glucose [Mass/Vol] 111 mg/lUCpss26 - 99 mg/dLMarietta Memorial HospitalInterpretation and review of laboratory resultsAbSumma HealthOsmolality Calc [Osmolality] 309HighMarietta Memorial HospitalPotassium [Moles/Vol]5.0 mmol/L3.5 - 5.0 mmol/L [facility]odium [Moles/Vol]141 mmol/L135 - 145 mmol/[facility]aritan HospitalUrea nitrogen [Mass/Vol]47 mg/dLHigh7 - 25 mg/dLMarietta Memorial HospitalUrea nitrogen/Creatinine [Mass ratio]18 mg/mgMarietta Memorial Hospital Anion gap [Moles/Vol]12 mmol/LNormal7-17[facility] CenterComment on above:Performed By: #### HEMOGC #### [facility] (DEFAULT) [address] [place], [place] [address]Tehluaou [Moles/Vol]110 mmol/ZZtcn46-609FwzpMetrohealth Cleveland Heights Medical CenterComment on above:Performed By: #### HEMOGC #### [facility] (DEFAULT) [address] [place] [address] 81735GK9 [Moles/Vol]24 mmol/DOmdued46-00VtpxMetrohealth Cleveland Heights Medical CenterComment on above:Performed By: #### HEMOGC #### [facility] (DEFAULT) [address] [place] [address] 28734Dnqlxnmbcu [Mass/Vol]2.60 mg/dLHigh0.70-1.30[facility] Medical CenterComment on above:Performed By: #### HEMOGC #### [facility] (DEFAULT) [address] [address]OKA/1.73 sq M.predicted among non-blacks MDRD (S/P/Bld) [Vol rate/Area]28 mL/min/{1.73_m2}Low>=60[facility] Comment on above:Result Comment: Reported eGFR is based on the CKD-EPI 2020 equation using creatinine, age, and sex.Performed By: #### HEMOGC #### [facility] (DEFAULT) [address] [place] [address] 09021Jdnvoth [Mass/Vol]111 mg/lAZpqx75-13DkngMetrohealth Cleveland Heights Medical CenterComment on above:Performed By: #### HEMOGC #### [facility] (DEFAULT) [address] [place] [address] 02699Knzkmjngbl [Osmolality]309 mosm/beAvps666-877UqlaMetrohealth Cleveland Heights Medical CenterComment on above:Performed By: #### HEMOGC #### [facility] (DEFAULT) [address] [place] [address] 97010Vsiyxhvwz [Moles/Vol]5.0 mmol/LNormal3.5-5.0[facility] Medical CenterComment on above:Performed By: #### HEMOGC #### [facility] (DEFAULT) [address] [place] [address] 52986Vbhgzo [Moles/Vol]141 mmol/RUqrajp339-156NldfMetrohealth Cleveland Heights Medical CenterComment on above:Performed By: #### HEMOGC #### [facility] (DEFAULT) [address] [place], [place] [address]Tdzt nitrogen [Mass/Vol]47 mg/dLHigh7-25[facility] Medical CenterComment on above:Performed By: #### HEMOGC #### [facility] (DEFAULT) [address] [place], [place] [address]Ucsz nitrogen/Creatinine [Mass ratio]18 mg/mgNormalOhio Ohiohealth Berger HospitalComment on above:Performed By: #### HEMOGC #### [facility] (DEFAULT) [address] [place] [address] 11490JHEDOTKAYM CARDIAC MONITORING STRIPon [id number] [facility] HospitalOSMercy Health Springfield Regional Medical CenterMAGNESIUMon 94-21-8854Vgzgdejrwskcjj and review of laboratory resultsNormalOFort Hamilton HospitalMagnesium [Mass/Vol] 1.9 mg/dL1.6 - 2.6 mg/dLOSU [facility] HospitalMagnesium [Mass/Vol]1.9 mg/dL Normal1.6-2.6[facility] CenterComment on above: Performed By: #### JUAN GUILLEN, IPB #### OSMaximino [facility] (DEFAULT) [address] [place] [address] 30550Jdcrvaezc [Mass/Vol]1.9 mg/dL1.6 - 2.6 mg/dLOSU [facility] HospitalMagnesium [Mass/Vol]1.9 mg/dLNormal1.6-2.6[facility] CenterComment on above:Performed By: #### JUAN GUILLEN, IPB #### [facility] (DEFAULT) [address] [place] [address] 20579Vrcabkjhu [Mass/Vol]1.9 mg/dL1.6 - 2.6 mg/dLOSU [facility] HospitalMagnesium [Mass/Vol]1.9 mg/dLNormal1.6-2.6[facility] CenterComment on above:Performed By: #### HEMOGC #### [facility] (DEFAULT) [address] [address]Jw Panel Informationon 39-79-6846LTO/RH(D) TYPEPositiveOSMercy Health Springfield Regional Medical CenterBLOOD COMPONENT TYPERed Cells, LeukoreducedOSMercy Health Springfield Regional Medical CenterEXPIRATION [id number] Health Springfield Regional Medical CenterProduct ABO/RH(D)PositiveOSU [facility] HospitalProduct ABO/RH(D) [id number] [facility] HospitalPRODUCT [id number] Memorial HospitalUNIT NUMBER [id number] Memorial HospitalInterpretation and review of laboratory resultsAbnormSheltering Arms HospitalOSMercy Health Springfield Regional Medical CenterOSMercy Health Springfield Regional Medical CenterMethod performed is a chemiluminescent microparticle immunoasssay on the Cash Activity Therapy Specialist i2000. The range is based on experience at [facility] and users should be aware that target concentrations vary widely depending on concomitant therapy, time post- transplant, and desired degree of immunosuppression.[facility] Medical CenterInterpretation and review of laboratory resultsNormSutter Davis HospitalInterpretation and review of laboratory resultsNormSutter Davis Hospital PHOSPHATE, INORGANICon [id number] [Mass/Vol]2.1 mg/dLLow2.2 - 4.6 mg/dL [facility] HospitalPhosphorous2.1 mg/dLLow2.2-4.6[facility] CenterComment on above:Performed By: #### MGO, CHM7, IPB #### [facility] (DEFAULT) [address] [address]Egdtvruqn [Mass/Vol]2.6 mg/dL2.2 - 4.6 mg/dLMarietta Memorial HospitalPhosphorous2.6 mg/dLNormal2.2-4.6[facility] CenterComment on above:Performed By: #### MGO, CHM7, IPB #### [facility] (DEFAULT) [address] [place], [place] [address]Zvpdfraoz [Mass/Vol]2.9 mg/dL2.2 - 4.6 mg/dLOSMercy Health Springfield Regional Medical CenterPhosphorous2.9 mg/dLNormal2.2-4.6Ohio [facility]health Berger HospitalComment on above:Performed By: #### HEMOGC #### OSMercy Health Springfield Regional Medical Center (DEFAULT) [address] [place], [place] [address]NNCGPSN TO TRANSFUSE RED BLOOD CELLSon [id number] STATUS releasedOSMercy Health Springfield Regional Medical CenterUNIT STATUSAvailableOSVirtua MarltonTACROLIMUS LEVEL, TROUGH (PRE DRUG LEVEL)on 03-25-2024 Tacrolimus (Bld) [Mass/Vol]8.2 ng/mLBone Marrow Transplant: 5.0-15.0 Kidney/Pancreatic Transplant: 0 to 3 months: 8.0-10.0, 3 to 12 months: 6.0-8.0, >12 months: 4.0-6.0M[facility] Memorial HospitalMethod performed is a chemiluminescent microparticle immunoasssay on the Cash Activity Therapy Specialist i2000. The range is based on experience at U and users should be aware that target concentrations vary widely depending on concomitant therapy, time post- transplant, and desired degree of immunosuppression.[facility] Tacrolimus (Bld) [Mass/Vol]8.6 ng/mLBone Marrow Transplant: 5.0-15.0 Kidney/Pancreatic Transplant: 0 to 3 months: 8.0-10.0, 3 to 12 months: 6.0-8.0, >12 months: 4.0-6.0M[facility]etta Memorial HospitalTacrolimus (Bld) [Mass/Vol]9.0 ng/mL Bone Marrow Transplant: 5.0-15.0 Kidney/Pancreatic Transplant: 0 to 3 months: 8.0-10.0, 3 to 12 months: 6.0-8.0, >12 months: 4.0-6.0OSMercy Health Springfield Regional Medical Center Tacrolimus, Trough8.2 ng/mLNormalBone Marrow Transplant: 5.0-15.0 Kidney/Pancreatic Transplant: 0 to 3 months: 8.0-10.0, 3 to 12 months: 6.0-8.0, >12 months: 4.0-6.0[facility] Medical CenterComment on above: Order Comment: Please draw at specified interval PRIOR to dose. Do not hold dose to wait for level.Specimens batched twice per day, (M-F) and once per day weekendsMethod performed is a chemiluminescent microparticle immunoasssay on the Cash Activity Therapy Specialist i2000.The range is based on experience [facility] users should be aware that target concentrations vary widely depending on concomitant therapy, time post-transplant, and desired degree of immunosuppression.Performed By: #### MGJUAN Stephenson, IPB #### [facility] (DEFAULT) [address] [place] [address]Nlxhztufcp, Trough9.0 ng/mLNormalBone Marrow Transplant: 5.0- 15.0 Kidney/Pancreatic Transplant: 0 to 3 months: 8.0-10.0, 3 to 12 months: 6.0- 8.0, >12 months: 4.0-6.0[facility] CenterComment on above:Order Comment: Please draw at specified interval PRIOR to dose. Do not hold dose to wait for level.Specimens batched twice per day, (M-F) and once per day weekendsMethod performed is a chemiluminescent microparticle immunoasssay on the Cash Activity Therapy Specialist i2000.The range is based on experience at [facility] users should be aware that target concentrations vary widely depending on concomitant therapy, time post-transplant, and desired degree of immunosuppression.Performed By: #### MGSHAHNAZ StephensonM7, IPB #### [facility] (DEFAULT) [address] [address]LHJG AND SCREENon [id number]/RH(D) TYPEPositiveNoMercy HealthComment on above:Performed By: #### HEMOGC #### [facility] (DEFAULT) [address] [address]Yaxnyru Ptsplwao93/28/2024 23:59NormSheltering Arms HospitalComment on above:Performed By: #### HEMOGC #### [facility] (DEFAULT) [address] [place] [address] 19[address]KJ RENAL TRANSPLANT SCANon [id number] RENAL TRANSPLANT SCAN EXAM: US RENAL TRANSPLANT [...] exam 2. Resistivity indices within normal limits. NSumma Health Akron CampusUS for transplanted kidney limitedon [id number]: 1. Severe hydronephrosis in the right lower quadrant transplant kidney, similar to the prior exam 2. Resistivity indices within normal limits. RADIOLOGY EXAM: US RENAL TRANSPLANT SCAN, 03/25/2024 16:15 [...] Abdomen: No ascites in the visualized images. RADIOLOGYIsmail, Maurice Wayne DO - 03/25/2024 EXAM: US RENAL TRANSPLANT [...] exam 2. Resistivity indices within normal limits. [facility] HospitalRadiology Study observation (narrative)[facility] Memorial HospitalUS for transplanted kidney limitedOrdered By: Maurice Corbett on [id number] Memorial Hospital Work Phone: cALCIUMon [phone] [Mass/Vol]8.6 mg/dL8.6 - 10.5 mg/dLMarietta Memorial HospitalCalcium [Mass/Vol]8.6 mg/dLNormal8.6-10.5[facility] CenterComment on above:Order Comment: To be collected on THQ8Vkvtsnxze By: #### HEMOGC #### [facility] (DEFAULT) [address] [address]SNG,PLATELETSon [phone] distribution width (RBC) [Ratio]12.9 %10.9 - 14.3 %[facility] Memorial HospitalHematocrit (Bld) [Volume fraction]28.3 %Low39.6 - 48.8 %[facility] HospitalHemoglobin (Bld) [Mass/Vol]9.3 g/dLLow13.4 - 16.8 g/dLMarietta Memorial HospitalInterpretation and review of laboratory resultsAbnormalOFort Hamilton HospitalMCH (RBC) [Entitic mass]30.4 pg26.1 - 33.3 pgMarietta Memorial HospitalMCHC (RBC) [Mass/Vol]32.9 g/dL31.9 - 36.5 g/dLMarietta Memorial HospitalMCV (RBC) [Entitic vol]92.5 fL79.0 - 94.5 [facility] HealthCare Main CampusPlatelet mean volume (Bld) [Entitic vol]11.6 fL8.7 - 12.3 [facility] Main CampusPlatelets (Bld) [#/Vol]179 10*3/uL146 - 337 K/Kindred HealthcareRBC (Bld) [#/Vol]3.06 10*6/uLLowMarietta Memorial HospitalWBC (Bld) [#/Vol]14.38 10*3/uLHigh3.73 - 10.10 K/Kindred HealthcareOSMercy Health Springfield Regional Medical CenterHematocrit (Bld) [Volume fraction]28.3 % Low39.6-48.8[facility] CenterComment on above:Order Comment: To be collected on NIQ0Huxgggppp By: #### HEMOGC #### [facility] (DEFAULT) [address] [place] [address] 390[address]Btwcfohfgh (Bld) [Mass/Vol]9.3 g/dLLow13.4-16.8[facility] Medical CenterComment on above:Order Comment: To be collected on UNJ6Xqbhnpmly By: #### HEMOGC #### [facility] (DEFAULT) [address] [place] [address] 480[address]DME (RBC) [Entitic vol]92.5 aDGfmnkb99.0-94.5[facility] CenterComment on above:Order Comment: To be collected on AIY0Dpjbbdajv By: #### HEMOGC #### [facility] (DEFAULT) [address] [place] [address]18[address]Koqb Cell Hgb30.4 puRfctyl41.1-33.3[facility] CenterComment on above:Order Comment: To be collected on POD1 Performed By: #### HEMOGC #### [facility] (DEFAULT) [address] [place] [address] 40723Tehb Cell Hgb Conc32.9 g/xQDukcag76.9-36.5[facility] CenterComment on above:Order Comment: To be collected on JQK0Osroownis By: #### HEMOGC #### [facility] (DEFAULT) [address] [place] [address] 17736Tbudbmrv mean volume (Bld) [Entitic vol]11.6 fLNormal8.7-12.3 [facility] CenterComment on above:Order Comment: To be collected on YAC3Qronkkihn By: #### HEMOGC #### [facility] (DEFAULT) [address] [place] [address] 785[address]Nnjydlifx (Bld) [#/Vol]179 10*3/eSSqhrhc236-120WjzkMetrohealth Cleveland Heights Medical CenterComment on above:Order Comment: To be collected on JYM5Ieafthfcz By: #### HEMOGC #### [facility] (DEFAULT) [address] [place] [address] 88823ZHK (Bld) [#/Vol]3.06 10*6/uLLow4.38-5.83[facility] CenterComment on above:Order Comment: To be collected on POD1 Performed By: #### HEMOGC #### [facility] (DEFAULT) [address] [place] [address] 70216QGE Xxizgmbdajci11.9 %Blujlf57.9-14.3[facility] CenterComment on above:Order Comment: To be collected on POD1 Performed By: #### HEMOGC #### [facility] (DEFAULT) [address] [place] [address] 33145IPQ (Bld) [#/Vol]14.38 10*3/uLHigh3.73-10.10[facility] CenterComment on above:Order Comment: To be collected on LAY7Nxizfozuz By: #### HEMOGC #### [facility] (DEFAULT) [address] [place] [address] 78[address]CFAD 7 (LYTES,BUN,CREA,GLUC)on 07-17-2413Yjtgu gap [Moles/Vol] 14 mmol/L7 - 17 mmol/[facility] HospitalChloride [Moles/Vol]111 mmol/L High98 - 108 mmol/[facility] HospitalCO2 [Moles/Vol]19 mmol/LLow21 - 31 mmol/[facility] HospitalCreatinine [Mass/Vol]2.17 mg/dLHigh0.70 - 1.30 mg/dLMarietta Memorial HospitaleGFR, CKD-EPI, Gmal65Gto- PINFOFort Hamilton HospitalComment on above:Reported eGFR is based on the CKD-EPI 2020 equation using creatinine, age, and sex.Glucose [Mass/Vol]144 mg/yPKnsw16 - 99 mg/dLMarietta Memorial HospitalInterpretation and review of laboratory resultsAbnoOhioHealth Dublin Methodist HospitalOsmolality Calc [Osmolality]306HighMarietta Memorial Hospital Potassium [Moles/Vol]5.5 mmol/LHigh3.5 - 5.0 mmol/[facility] Sodium [Moles/Vol]138 mmol/L135 - 145 mmol/[facility] HospitalUrea nitrogen [Mass/Vol]45 mg/dLHigh7 - 25 mg/dLMarietta Memorial HospitalUrea nitrogen/Creatinine [Mass ratio]21 mg/mgMarietta Memorial HospitalAnion gap [Moles/Vol]14 mmol/LNormal7-17[facility] CenterComment on above:Order Comment: To be collected on LMT9Zxcfsbmrt By: #### HEMOGC #### [facility] (DEFAULT) [address] [place], [place] [address]Zubezzry [Moles/Vol]111 mmol/IYcsl34-812RaslMetrohealth Cleveland Heights Medical CenterComment on above:Order Comment: To be collected on POD1 Performed By: #### HEMOGC #### [facility] (DEFAULT) [address] [place], [place] [address]KC2 [Moles/Vol]19 mmol/ONxe34-52TwnpMetrohealth Cleveland Heights Medical CenterComment on above:Order Comment: To be collected on GEN0Momkfpzyc By: #### HEMOGC #### [facility] (DEFAULT) [address] [place], [place] [address]Aamwkpamew [Mass/Vol]2.17 mg/dLHigh0.70-1.30[facility] CenterComment on above:Order Comment: To be collected on VJA4Qktcckoug By: #### HEMOGC #### [facility] (DEFAULT) [address] [place] [address] 23172IIM/1.73 sq M.predicted among non-blacks MDRD (S/P/Bld) [Vol rate/Area]35 mL/min/{1.73_m2}Low>=60[facility] Comment on above:Order Comment: To be collected on MHX0Tlnwub Comment: Reported eGFR is based on the CKD-EPI 2020 equation using creatinine, age, and sex. Performed By: #### HEMOGC #### [facility] (DEFAULT) [address] [place] [address] 02155Hgedlvm [Mass/Vol]144 mg/qAMsty45-59XhcaMetrohealth Cleveland Heights Medical CenterComment on above:Order Comment: To be collected on POD1 Performed By: #### HEMOGC #### [facility] (DEFAULT) [address] [place] [address] 86333Evcaopyfcy [Osmolality]306 mosm/srVtpm725-654YxeeMetrohealth Cleveland Heights Medical CenterComment on above:Order Comment: To be collected on DIS0Geclneucs By: #### HEMOGC #### [facility] (DEFAULT) [address] [place] [address]15[address]Wvtlswkyo [Moles/Vol]5.5 mmol/LHigh3.5-5.0[facility] CenterComment on above:Order Comment: To be collected on HZR3Jddxmtxdp By: #### HEMOGC #### [facility] (DEFAULT) [address] [place] [address]13[address]Agbzqz [Moles/Vol]138 mmol/HPooses958-874DirnMetrohealth Cleveland Heights Medical CenterComment on above:Order Comment: To be collected on POD1 Performed By: #### HEMOGC #### [facility] (DEFAULT) [address] [place] [address] 274[address]Guos nitrogen [Mass/Vol]45 mg/dLHigh7-25[facility] CenterComment on above:Order Comment: To be collected on POD1 Performed By: #### HEMOGC #### [facility] (DEFAULT) [address] [place], [place] [address]Msoi nitrogen/Creatinine [Mass ratio]21 mg/mgNormalOhio Ohiohealth Berger HospitalComment on above:Order Comment: To be collected on KVV5Sfodqkdys By: #### HEMOGC #### [facility] (DEFAULT) [address] [place], [place] [address]CCILDMGFMH CARDIAC MONITORING STRIPon 91-71-6151BBFMercy Health Springfield Regional Medical CenterMAGNESIUMon 65-82-5981Eihbntvze [Mass/Vol]1.9 mg/dL1.6 - 2.6 mg/dL [facility] HospitalMagnesium [Mass/Vol]1.9 mg/dLNormal1.6-2.6[facility] CenterComment on above:Order Comment: To be collected on FWU2Qzaljjbjy By: #### HEMOGC #### [facility] (DEFAULT) [address] [place] [address]Bj Panel Informationon 25-20-8086Jxnxqzvfabwliw and review of laboratory resultsNoEncino Hospital Medical Center PHOSPHATE, INORGANICon 15-33-2899Amgjolpmg [Mass/Vol]2.7 mg/dL2.2 - 4.6 mg/dLMarietta Memorial HospitalPhosphorous2.7 mg/dLNormal2.2-4.6[facility] CenterComment on above:Order Comment: To be collected on POD1 Performed By: #### HEMOGC #### [facility] (DEFAULT) [address] [place] [address]CJSIEEJGCei 96-21-0229Irkkfjnqlorcwj and review of laboratory resultsNoOhioHealth Dublin Methodist HospitalPotassium [Moles/Vol]5.0 mmol/L3.5 - 5.0 mmol/LOSU [facility] Ocean Medical CenterPotassium [Moles/Vol]5.0 mmol/LNormal3.5-5.0[facility] CenterComment on above: Order Comment: First draw 6-8 hours after administration of potassium eliminating medications per Hyperkalemia treatment guideline.Performed By: #### HEMOGC #### [facility] (DEFAULT) [address] [place] [address] 12[address]Calnbuhth [Moles/Vol]5.0 mmol/LNormal3.5-5.0[facility] CenterComment on above:Order Comment: First draw 6-8 hours after administration of potassium eliminating medications per Hyperkalemia treatment guideline.Performed By: #### JUAN GUILLEN, IPB #### [facility] (DEFAULT) [address] [address]DKERCDBXOLsxzxsa By: Liss Brito on 24-42-9954Guddgujatfcflu and review of laboratory resultsNormalOFort Hamilton HospitalPotassium [Moles/Vol]5.0 mmol/L3.5 - 5.0 mmol/LOSU [facility] HospitalOS[facility] HospitalTACROLIMUS LEVEL, TROUGH (PRE DRUG LEVEL)on 79-05-4398Ovezlktktb, Trough 8.6 ng/mLNormalBone Marrow Transplant: 5.0-15.0 Kidney/Pancreatic Transplant: 0 to 3 months: 8.0-10.0, 3 to 12 months: 6.0-8.0, >12 months: 4.0-6.0[facility] CenterComment on above:Order Comment: Please draw at specified interval PRIOR to dose. Do not hold dose to wait for level.Specimens batched twice per day, (M-F) and once per day weekendsMethod performed is a chemiluminescent microparticle immunoasssay on the Cash Activity Therapy Specialist i2000.The range is based on experience at [facility] users should be aware that target concentrations vary widely depending on concomitant therapy, time post- transplant, and desired degree of immunosuppression.Performed By: #### MGSHAHNAZ StephensonM7, IPB #### [facility] (DEFAULT) [address] [address]ZM RENAL TRANSPLANT SCANon [id number] RENAL TRANSPLANT SCAN EXAM: US RENAL TRANSPLANT [...] I have reviewed and approved this report. [facility] HospitalUS for transplanted kidney limitedon 34-90-3629JHXDKRRHTT: 1. Severe hydronephrosis of the transplant kidney. 2. Resistivity indices are normal. I personally viewed and interpreted these images and I have reviewed and approved this report. RADIOLOGY EXAM: US RENAL TRANSPLANT SCAN, 03/24/2024 14:39 [...] Abdomen: No ascites in the visualized images. RADIOLOGYIsabelle Escobar MD - 03/24/2024 EXAM: US RENAL [...] I have reviewed and approved this report. [facility] HospitalRadiology Study observation (narrative)[facility] HospitalUS for transplanted kidney limitedOrdered By: Isabelle Escobar on 33-63-1005CVPMarietta Memorial Hospital Work Phone: BASIC METABOLIC PANELon 66-95-1125Roczx gap [Moles/Vol]12 mmol/L7 - 17 mmol/[facility] HospitalCalcium [Mass/Vol]9.3 mg/dL8.6 - 10.5 mg/dLMarietta Memorial HospitalChloride [Moles/Vol]111 mmol/LHigh 98 - 108 mmol/[facility] HospitalCO2 [Moles/Vol]20 mmol/LLow21 - 31 mmol/[facility] HospitalCreatinine [Mass/Vol]2.08 mg/dLHigh0.70 - 1.30 mg/dLMarietta Memorial HospitaleGFR, CKD-EPI, Cyri51Nyk- PINFOFort Hamilton HospitalComment on above:Reported eGFR is based on the CKD-EPI 2020 equation using creatinine, age, and sex.Glucose [Mass/Vol]99 mg/dL70 - 99 mg/dLMarietta Memorial HospitalInterpretation and review of laboratory resultsAbnoOhioHealth Dublin Methodist HospitalOsmolality Calc [Osmolality]303OSMercy Health Springfield Regional Medical CenterPotassium [Moles/Vol]5.1 mmol/LHigh3.5 - 5.0 mmol/[facility] Southodium [Moles/Vol]138 mmol/L135 - 145 mmol/[facility] HospitalUrea nitrogen [Mass/Vol]47 mg/dLHigh7 - 25 mg/dLMarietta Memorial HospitalUrea nitrogen/Creatinine [Mass ratio]23 mg/mgKaiser South San Francisco Medical CenterAnion gap [Moles/Vol]12 mmol/LNormal7-17[facility] CenterComment on above:Performed By: #### HEMOGC #### [facility] (DEFAULT) [address] [place] [address] 52574Vzbjyrn [Mass/Vol]9.3 mg/dLNormal8.6-10.5[facility] Medical CenterComment on above:Performed By: #### HEMOGC #### [facility] (DEFAULT) [address] [place] [address] 62234Pkbqmxng [Moles/Vol]111 mmol/PByxi74-349KwdjMetrohealth Cleveland Heights Medical CenterComment on above:Performed By: #### HEMOGC #### [facility] (DEFAULT) [address] [place] [address] 905[address]JS5 [Moles/Vol]20 mmol/SKph81-38IfquMetrohealth Cleveland Heights Medical CenterComment on above:Performed By: #### HEMOGC #### [facility] (DEFAULT) [address] [place] [address] 40045Jvwnevjtuv [Mass/Vol]2.08 mg/dLHigh0.70-1.30[facility] Medical CenterComment on above:Performed By: #### HEMOGC #### [facility] (DEFAULT) [address] [place] [address] 36983NPO/1.73 sq M.predicted among non-blacks MDRD (S/P/Bld) [Vol rate/Area]37 mL/min/{1.73_m2}Low>=60[facility] Comment on above:Result Comment: Reported eGFR is based on the CKD-EPI 2020 equation using creatinine, age, and sex.Performed By: #### HEMOGC #### [facility] (DEFAULT) [address] [place] [address]Tykusdd [Mass/Vol]99 mg/sVVjmqiy86-06BlxjMetrohealth Cleveland Heights Medical CenterComment on above:Performed By: #### HEMOGC #### [facility] (DEFAULT) [address] [place] [address] 18474Qygyrwsplt [Osmolality]303 mosm/yrUbennz102-424EcqiMetrohealth Cleveland Heights Medical CenterComment on above:Performed By: #### HEMOGC #### [facility] (DEFAULT) [address] [place], [place] [address]Alucgivwm [Moles/Vol]5.1 mmol/LHigh3.5-5.0[facility] Heights Medical CenterComment on above:Performed By: #### HEMOGC #### [facility] (DEFAULT) [address] [place], [place] [address]Oulujh [Moles/Vol]138 mmol/YWvijzd403-813EbizMetrohealth Cleveland Heights Medical CenterComment on above:Performed By: #### HEMOGC #### [facility] (DEFAULT) [address] [place], [place] [address]Ozcl nitrogen [Mass/Vol]47 mg/dLHigh7-25[facility] Heights Medical CenterComment on above:Performed By: #### HEMOGC #### [facility] (DEFAULT) [address] [place], [place] [address]Jzlo nitrogen/Creatinine [Mass ratio]23 mg/mgNormalOProMedica Memorial HospitalComment on above:Performed By: #### HEMOGC #### [facility] (DEFAULT) [address] [place] [address] 13743MZGLQKLKYI CARDIAC MONITORING STRIPon 63-38-2727IINMarietta Memorial HospitalGLUCOSE POCon 00-36-1311Lrqogeb [Mass/Vol]104 mg/aSWdsg02 - 99 mg/dLMarietta Memorial HospitalInterpretation and review of laboratory results AbnormalOSMercy Health Springfield Regional Medical CenterPO Sample TypeCAPBLMarietta Memorial Hospital Test performed at address of the patient encounter.[facility] HospitalOSMercy Health Springfield Regional Medical CenterNo Panel InformationOrdered By: Unassigned Pacs on 28-86-5074VWXMarietta Memorial Hospital Work Phone: Basophils Auto (Bld) [#/Vol]on 23-53-7899Dqtxwoplz (Bld) [#/Vol]0.1 10 3/uL0.0-0.1FOhio State East HospitalBasophils/100 WBC Auto (Bld)on 52-95-8630Pktqnxqsn/100 WBC (Bld)0.6 %0.2-2.0[facility] HospitalCholesterol in LDL Calc [Mass/Vol]on 79-86-4739Aepqxfaomyy in LDL [Mass/Vol]87.8 mg/dLMercy Health Perrysburg HospitalComment on above:<100 mg/dl QITQCFH264-288 mg/dl NEAR OR ABOVE NKOTFKN033-271 mg/dl BORDERLINE UHSQ465-119 mg/dl HIGH>190 mg/dl VERY HIGHCholesterol in VLDL Calc [Mass/Vol]on 57-49-6175Qyrqphneihp in VLDL [Mass/Vol]25.2 mg/dLMercy Health Perrysburg HospitalEosinophils/100 WBC Auto (Bld)on 48-08-4494Vumpveelndk/100 WBC (Bld)1.5 % 0.9-7.0[facility] HospitalErythrocyte distribution width Auto (RBC) [Ratio]on 88-50-5337Nirsbklfoil distribution width (RBC) [Ratio]12.1 % 11.0-15.0[facility] HospitalEstimated glomerular filtration rate (GFR) non- Americanon 08-27-8870YLI/1.73 sq M.predicted among non-blacks MDRD (S/P/Bld) [Vol rate/Area]24 mL/min/{1.73_m2}Low>=60Mer[facility] HospitalGlobulin Calc (S) [Mass/Vol]on 01-41-5520Sudrofde (S) [Mass/Vol] 3.5 g/dLMercy Health Perrysburg HospitalHematocrit Auto (Bld) [Volume fraction] on 21-67-8421Lautzvlbxy (Bld) [Volume fraction]33.0 %Low42.0-54.0[facility] HospitalHemoglobin [Mass/volume] in Bloodon 31-81-8916Vfbrqbetwt (Bld) [Mass/Vol]10.9 g/dLLow14.0-18.0[facility] HospitalLaboratory - Chemistry and Chemistry - challengeon 96-10-7061Oywscsv [Mass/Vol]4.1 g/dL 3.4-5.0[facility] HospitalALP [Catalytic activity/Vol]81 U/L46-116 [facility] HospitalALT [Catalytic activity/Vol]21 U/L16-63 [facility] HospitalAST [Catalytic activity/Vol]15 U/L15-37 [facility] HospitalBilirubin [Mass/Vol]0.3 mg/dL0.2-1.0[facility] HospitalCalcium [Mass/Vol]9.6 mg/dL8.5-10.1FOhio State East HospitalChloride [Moles/Vol]103 mmol/M83-130YcmyarbteMercy Health Perrysburg HospitalCholesterol [Mass/Vol]160 mg/dL<=200[facility] Cholesterol in HDL [Mass/Vol]47 mg/fK95-96JhkjojnyoMercy Health Perrysburg Hospital Comment on above:> or =60 mg/dl - LOW CARDIOVASCULAR RISK<40 mg/dl - HIGH CARDIOVASCULAR RISKCO2 [Moles/Vol]24.1 mmol/L21.0-32.0[facility] HospitalCreatinine [Mass/Vol]2.77 mg/dLHigh0.70-1.30[facility] HospitalGFR/1.73 sq M.predicted MDRD (S/P/Bld) [Vol rate/Area]29 mL/min/{1.73_m2} Low>=60Mer[facility] HospitalGlucose [Mass/Vol]93 mg/gT63-967 [facility] HospitalPotassium [Moles/Vol]4.7 mmol/L3.5-5.1FOhio State East HospitalProtein [Mass/Vol]7.6 g/dL6.4-8.2FThe MetroHealth Systemodium [Moles/Vol]138 mmol/D666-786OzjvjiwicMercy Health Perrysburg HospitalTriglyceride [Mass/Vol]126 mg/dL<=150Mer[facility] HospitalUrea nitrogen [Mass/Vol]55.0 mg/dLHigh7.0-18.0[facility] HospitalUrea nitrogen/Creatinine [Mass ratio]19.9 mg/mgMercy Health Perrysburg Hospital Bilirubin Ql (U)NegativeNEGATIVEMercy Health Perrysburg HospitalGlucose (U) [Mass/Vol]NegativeNEGATIVEMercy Health Perrysburg HospitalKetones Ql (U) NegativeNEGATIVEMercy Health Perrysburg HospitalpH (U)6.0 [pH]5.0-9.0[facility] Hospitalpecific gravity (U) [Rel density]1.0151.005-1.025 [facility] HospitalUrobilinogen Qn (U)0.2 {Brodie'U}/dL0.2-1.0 [facility] HospitalLaboratory - Hematology and Cell countson 88-54-6476Digxsroo granulocytes/100 WBC (Bld)0.2 %0.0-0.5FOhio State East HospitalLaboratory - Specimen informationon 61-10-8956Zroiehdumr (U)CLEAR CLEARMercy Health Perrysburg HospitalColor (U)LT. YELLOWYELLOWMercy Health Perrysburg HospitalLaboratory - Urinalysison 12-28-2880Kjhgvcbkp esterase Test strip Ql (U)NegativeNEGATIVEMercy Health Perrysburg HospitalNitrite Ql (U) NegativeNEGATIVEMercy Health Perrysburg HospitalProtein Ql (U)NegativeNEG/TRACE [facility] HospitalLeukocytes [#/volume] corrected for nucleated erythrocytes in Blood by Automated counon 12-70-8835WMW corrected for nucl RBC Auto (Bld) [#/Vol]8.2 10 3/uL4.0-11.0[facility] Lymphocytes Auto (Bld) [#/Vol]on 30-64-2076Yshrjbdlsrt (Bld) [#/Vol]1.9 10 3/uL 1.2-3.8[facility] HospitalLymphocytes/100 WBC Auto (Bld)on 54-94-3442Fjhtefgkjez/100 WBC (Bld)22.8 %20.5-60.0[facility] CampusH Auto (RBC) [Entitic mass]on 36-26-3968XIM (RBC) [Entitic mass]29.8 pg 25.9-34.0[facility] HospitalMCHC Auto (RBC) [Mass/Vol]on 81-01-1221GPTP (RBC) [Mass/Vol]33.0 g/dL29.9-35.2FOhio State East HospitalMCV Auto (RBC) [Entitic vol]on 01-42-0205MCI (RBC) [Entitic vol]90.2 fL 80.0-94.0[facility] HospitalMonocytes Auto (Bld) [#/Vol]on 43-53-6320Gbsdmiurm (Bld) [#/Vol]0.5 10 3/uL0.3-0.8[facility] HospitalMonocytes/100 WBC Auto (Bld)on 04-92-8653Vkisoufog/100 WBC (Bld)5.5 % 1.7-12.0[facility] HospitalNeutrophils Auto (Bld) [#/Vol]on 89-72-9995Kfqbezczumk (Bld) [#/Vol]5.7 10 3/uL1.4-6.5FOhio State East HospitalNeutrophils/100 WBC Auto (Bld)on 97-05-9956Jbzlsynyytu/100 WBC (Bld)69.4 % 43.0-75.0[facility] HospitalNo Panel Informationon 02-27-2024 Eosinophils # (Auto)0.1 10 3/uL0.0-0.7FOhio State East HospitalImmature Granulocyte # (Auto)0.02 10 3/uL0.00-0.03[facility] Prostate Specific Antigen Screen1.95 ng/mL<=4.00[facility] HospitalUrine Microscopic ReviewChillicothe VA Medical CenterUrine Occult BloodNegativeNEGATIVEMercy Health Perrysburg HospitalPlatelet mean volume Auto (Bld) [Entitic vol]on 52-24-1816Sbwfesml mean volume (Bld) [Entitic vol]11.1 fL 9.5-13.5FOhio State East HospitalPlatelets Auto (Bld) [#/Vol]on 65-80-5666Uwqpfoyjg (Bld) [#/Vol]203 10 3/jO105-915LfpbveslcMercy Health Perrysburg HospitalRBC Auto (Bld) [#/Vol]on 20-21-0252KFD (Bld) [#/Vol]3.66 10 6/uLLow 4.70-6.10[facility] Allen Hospitalerum or plasma albumin/globulin mass ratioon 18-52-5374Kicovcd/Globulin [Mass ratio]1.2 {ratio}[facility] Hospitalerum or plasma anion gap determinationon 21-40-2716Wzygz gap [Moles/Vol]15.6 mmol/LFThe MetroHealth Systemerum or plasma total cholesterol/high density lipoprotein (HDL) cholesterol mass lotus 02-27-2024 Cholesterol.total/Cholesterol in HDL [Mass ratio]3.4 {ratio}[facility] HospitalComment on above:3.3 - 4.4 LOW RISK4.4 - 7.1 AVERAGE RISK7.1 - 11.0 MODERATE RISK>11.0 HIGH RISKCBC AND ELECTRONIC DIFFon 50-92-3599Fcpipltya (Bld) [#/Vol]0.05 10*3/uL0.00 - 0.09 K/uLOSMercy Health Springfield Regional Medical CenterBasophils/100 WBC (Bld)0.5 %[facility] HospitalDifferential cell count method Nom (Bld) Electronic DifferentialOSMercy Health Springfield Regional Medical CenterEosinophils (Bld) [#/Vol]0.16 10*3/uL0.00 - 0.48 K/uLOSMercy Health Springfield Regional Medical CenterEosinophils/100 WBC (Bld)1.5 % [facility] HospitalErythrocyte distribution width (RBC) [Ratio]12.2 %10.9 - 14.3 %[facility] HospitalHematocrit (Bld) [Volume fraction]34.6 %Low39.6 - 48.8 %[facility] HospitalHemoglobin (Bld) [Mass/Vol]11.2 g/dLLow13.4 - 16.8 g/dLMarietta Memorial HospitalImmature granulocytes (Bld) [#/Vol]0.04 10*3/uLNINF - 0.07 K/uLOSMercy Health Springfield Regional Medical CenterImmature granulocytes/100 WBC (Bld)0.4 %[facility] HospitalInterpretation and review of laboratory resultsAbnormalOSU [facility] County HospitalLymphocytes (Bld) [#/Vol]2.14 10*3/uL 0.83 - 3.57 K/uLOSU [facility] HospitalLymphocytes/100 WBC (Bld)20.3 %[facility] HospitalMCH (RBC) [Entitic mass]29.3 pg26.1 - 33.3 pgOSU Wood County HospitalMCHC (RBC) [Mass/Vol]32.4 g/dL31.9 - 36.5 g/dLMarietta Memorial HospitalMCV (RBC) [Entitic vol]90.6 fL79.0 - 94.5 [facility] Monocytes (Bld) [#/Vol]0.50 10*3/uL0.24 - 0.93 K/[facility] Monocytes/100 WBC (Bld)4.7 %[facility] HospitalNeutrophils (Bld) [#/Vol] 7.65 10*3/uLHigh1.57 - 6.19 K/[facility]red HealthcareNucleated RBC/100 WBC (Bld) [Ratio]0.0 %NINMemorial Health System Selby General HospitalPlatelet mean volume (Bld) [Entitic vol]11.1 fL8.7 - 12.3 [facility] CampusPlatelets (Bld) [#/Vol]218 10*3/uL146 - 337 K/uLMarietta Memorial HospitalRBC (Bld) [#/Vol]3.82 10*6/uLLowRegency Hospital Cleveland Eastegmented neutrophils/100 WBC (Bld)72.6 %[facility] HospitalWBC (Bld) [#/Vol]10.54 10*3/uLHigh3.73 - 10.10 K/uLMarietta Memorial HospitalOSMercy Health Springfield Regional Medical CenterCOMPREHENSIVE METABOLIC PANELon 42-62-6485Suhwkki [Mass/Vol]4.6 g/dL3.5 - 5.0 g/dLMarietta Memorial HospitalALP [Catalytic activity/Vol]71 U/L32 - 126 U/[facility] HospitalALT [Catalytic activity/Vol]13 U/L10 - 52 U/[facility] HospitalAnion gap [Moles/Vol]12 mmol/L7 - 17 mmol/[facility] HospitalAST [Catalytic activity/Vol]15 U/L10 - 39 U/[facility] HospitalBilirubin [Mass/Vol]0.4 mg/dLNINF - 1.5 mg/dLOSMercy Health Springfield Regional Medical CenterCalcium [Mass/Vol]10.0 mg/dL8.6 - 10.5 mg/dLMarietta Memorial HospitalChloride [Moles/Vol]102 mmol/L98 - 108 mmol/L [facility] HospitalCO2 [Moles/Vol]26 mmol/L21 - 31 mmol/LOSU [facility] HospitalCreatinine [Mass/Vol]2.65 mg/dLHigh0.70 - 1.30 mg/dLOSMercy Health Springfield Regional Medical CentereGFR, CKD-EPI, Iwsn48Gig- PINFOFort Hamilton HospitalComment on above:Reported eGFR is based on the CKD-EPI 2020 equation using creatinine, age, and sex.Glucose [Mass/Vol]95 mg/dL70 - 99 mg/dLMarietta Memorial Hospital Interpretation and review of laboratory resultsAbnormSheltering Arms Hospital Osmolality Calc [Osmolality]297[facility] HospitalPotassium [Moles/Vol]5.0 mmol/L3.5 - 5.0 mmol/LOS[facility] HospitalProtein [Mass/Vol]7.8 g/dL6.4 - 8.3 g/dLRegency Hospital Cleveland Eastodium [Moles/Vol]135 mmol/L135 - 145 mmol/[facility] HospitalUrea nitrogen [Mass/Vol]45 mg/dLHigh7 - 25 mg/dLMarietta Memorial HospitalUrea nitrogen/Creatinine [Mass ratio]17 mg/mgOSMercy Health Springfield Regional Medical CenterOSMercy Health Springfield Regional Medical CenterTYPE AND SCREEN - PREADMISSIONon 02-25-2024 ABO/RH(D) TYPEPositiveOSCapital Health System ([facility])EAR CERUMEN REMOVALon 13-09-3531JndnczihRodrigo Saravia MD 12/04/2023 11:45 AM EAR CERUMEN REMOVAL Date/Time: 12/04/2023 11:00 AM Performed by: Rodrigo Saravia MD Authorized by: Rodrigo Saravia MD Procedure: Visualization: otoscopy Impaction noted: yes Location details: Right ear Procedure type: curette Patient tolerance: Tolerated well, no immediate complicationsSt. Charles Hospitaliology Study observation (narrative)[facility]. PYLORI STOOL AGon 11-22-2023H. PYLORI STOOL AGNegativeThe Surgical Hospital at SouthwoodsComment on above:Result Comment: Reference range: Negative PERFORMED AT [facility]ITALPerformed By: #### LHPYG #### Testing performed at [facility] [address] [place] [address] [address] [place], [place] [address]HKG REQUESTon 73-46-5371GCI [phone] and [phone] [facility] at SouthwoodsComment on above:Performed By: #### LHPYG #### Testing performed at [facility] [address] [place] [address] [address] [place], [place] [address]MVK REQUESTon 35-56-9850FQJ [phone] [facility] Hospital at SouthwoodsHEMOGLOBIN A1Con 79-28-0298Olwuwkd [Mass/Vol]114 mg/dLThe Surgical Hospital at SouthwoodsHbA1c (Bld) [Mass fraction]5.6 %Normal[address] [place] [address] Comment on above:Result Comment: NORMAL <5.7% PREDIABETES 5.7-6.4% DIABETES 6.5% OR HIGHERPTH INTACTOrdered By: Kaia Ni on 10-01-2023 Interpretation and review of laboratory resultsAbSumma Health Parathyrin.intact [Mass/Vol]76.2 pg/tJSnwp16.0 - 72.0 pg/mLMarietta Memorial HospitalOSMercy Health Springfield Regional Medical CenterCBC,PLATELETSon 28-90-8194Jgevmfxeujy distribution width (RBC) [Ratio]12.7 %10.9 - 14.3 %[facility] Hematocrit (Bld) [Volume fraction]37.8 %Low39.6 - 48.8 %[facility] HospitalHemoglobin (Bld) [Mass/Vol]12.2 g/dLLow13.4 - 16.8 g/dLMarietta Memorial HospitalInterpretation and review of laboratory resultsAbSumma HealthMCH (RBC) [Entitic mass]28.7 pg26.1 - 33.3 pgOSU Wood County HospitalMCHC (RBC) [Mass/Vol]32.3 g/dL31.9 - 36.5 g/dLMarietta Memorial HospitalMCV (RBC) [Entitic vol]88.9 fL79.0 - 94.5 [facility] CampusPlatelet mean volume (Bld) [Entitic vol]11.2 fL8.7 - 12.3 [facility] CampusPlatelets (Bld) [#/Vol]191 10*3/uL146 - 337 K/uLMarietta Memorial HospitalRBC (Bld) [#/Vol]4.25 10*6/uLLowMarietta Memorial HospitalWBC (Bld) [#/Vol]8.38 10*3/uL3.73 - 10.10 K/uLMarietta Memorial HospitalOSMercy Health Springfield Regional Medical CenterCOMPREHENSIVE METABOLIC PANELon 35-34-0725Lvoqxwq [Mass/Vol]4.4 g/dL3.5 - 5.0 g/dLMarietta Memorial HospitalALP [Catalytic activity/Vol]60 U/L32 - 126 U/[facility] HospitalALT [Catalytic activity/Vol]11 U/L10 - 52 U/[facility] HospitalAnion gap [Moles/Vol]16 mmol/L7 - 17 mmol/[facility] HospitalAST [Catalytic activity/Vol]12 U/L10 - 39 U/[facility] HospitalBilirubin [Mass/Vol]0.3 mg/dLNINF - 1.5 mg/dLMarietta Memorial HospitalCalcium [Mass/Vol]9.7 mg/dL8.6 - 10.5 mg/dLMarietta Memorial HospitalChloride [Moles/Vol]105 mmol/L98 - 108 mmol/L [facility] HospitalCO2 [Moles/Vol]25 mmol/L21 - 31 mmol/[facility] HospitalCreatinine [Mass/Vol]1.72 mg/dLHigh0.70 - 1.30 mg/dLMarietta Memorial HospitaleGFR, CKD-EPI, Jccr89Ymh- PINFOFort Hamilton HospitalComment on above:Reported eGFR is based on the CKD-EPI 2020 equation using creatinine, age, and sex.Glucose [Mass/Vol]78 mg/dL70 - 99 mg/dLMarietta Memorial Hospital Interpretation and review of laboratory resultsAbSumma Health Osmolality Calc [Osmolality]302[facility] HospitalPotassium [Moles/Vol]5.0 mmol/L3.5 - 5.0 mmol/LOS[facility] HospitalProtein [Mass/Vol]6.9 g/dL6.4 - 8.3 g/dLOSPremier Health Atrium Medical Centerodium [Moles/Vol]141 mmol/L135 - 145 mmol/LOS[facility] HospitalUrea nitrogen [Mass/Vol]31 mg/dLHigh7 - 25 mg/dLMarietta Memorial HospitalUrea nitrogen/Creatinine [Mass ratio]18 mg/mgOSMercy Health Springfield Regional Medical CenterFERRITINon 25-87-1510Rrnzplip [Mass/Vol]381.3 ng/kDYisg38.5 - 307.3 ng/mL [facility] HospitalInterpretation and review of laboratory resultsAbnormal OSMercy Health Springfield Regional Medical CenterOSMercy Health Springfield Regional Medical CenterFOLATE, SERUMOrdered By: Mayo Wick on 63-36-6586Lmfgpv [Mass/Vol]44.78 ng/mL5.38 - PINF ng/mLMarietta Memorial HospitalInterpretation and review of laboratory resultsNoOhioHealth Dublin Methodist HospitalOSMercy Health Springfield Regional Medical CenterIRON/IRON BINDING/TRANSFERRINon 63-04-5792Fcmbtajokxohpn and review of laboratory resultsNoOhioHealth Dublin Methodist HospitalIron [Mass/Vol]91 ug/dLOSMercy Health Springfield Regional Medical CenterIron binding capacity [Mass/Vol]295[facility] HospitalIron saturation [Mass fraction]31 %20 - 55 %[facility] HospitalTransferrin [Mass/Vol]236 mg/dL200 - 400 mg/dLMarietta Memorial HospitalNo Panel Informationon 96-74-1353CEZMercy Health Springfield Regional Medical CenterVITAMIN B12on 35-97-4588Vaagktsnu (Vitamin B12) [Mass/Vol]513 pg/mL211 - 911 pg/mLOSU Wexner Medical CenterComment on above:Testing of Methylmalonic Acid and Intrinsic Factor Blocking Antibody are recommended if clinical suspicion for pernicious anemia due to B12 deficiency is high for patients with intermediate B12 levels (211 to 400 pg/mL) to rule out spurious heterophile antibodies.Interpretation and review of laboratory resultsNoOhioHealth Dublin Methodist HospitalOSMercy Health Springfield Regional Medical CenterVITAMIN D (25-HYDROXY,TOTAL)on 89-26-1868Atmzebgxochfhf and review of laboratory resultsNoOhioHealth Dublin Methodist HospitalVitamin D+Metabolites [Mass/Vol]41.0 ng/mL30.0 - 100.0 ng/mLMarietta Memorial HospitalComment on above:<10 Deficiency 10-29 Insufficiency 30-100 Optimal Level >100 Possible Toxicity Vitamin D values have been shown to be falsely decreased in lipemic samples and should be interpreted with caution. [facility] CenterINTERVENTIONAL UPPER ENDOSCOPY on 06-81-9857W[facility] Patient Name: Zoie Heath Procedure Date: 2023 9:29 AM Date of : 1965 Admit Type: Outpatient Age: 58 Room: [place] [address] Gender: Male Note Status: Finalized Attending MD: Schuyler Sparks MD, [id number] Procedure: Upper GI endoscopy Indications: Surveillance procedure, [...] the patient. Procedure Code(s): --- Professional --- 39165, Esophagogastroduodenoscopy, flexible, transoral; diagnostic, including collection of specimen(s) by brushing or washing, when performed (separate procedure) Diagnosis Code(s): --- Professional --- Z98.84, Bariatric surgery status R10.13, Epigastric pain R12, Heartburn Z09, Encounter for follow-up examination after completed treatment for conditions other than (more content not included)...LAB, [facility] HospitalRadiology Study observation (narrative)[facility] HospitalNo Panel Informationon 00-15-2002QXQRMXENIK: Radiographically negative right foot and right ankle. RADIOLOGYEXAM: XR FOOT RIGHT 3 VIEWS, XR ANKLE [...] maintained. No soft tissue swelling is seen. Felix Ambrosio MD - 03/11/2023 EXAM: XR FOOT RIGHT 3 [...] Radiographically negative right foot and right ankle. FoodzieNo Panel InformationOrdered By: Felix Adame on 03-11-2023 [employer] Work Phone: XR ANKLE RIGHT 3+ VIEWSon 49-98-7843RT ANKLE RIGHT 3+ VIEWSEXAM: XR FOOT RIGHT 3 VIEWS, XR ANKLE [...] IMPRESSION: Radiographically negative right foot and right ankle.[facility] SouthwoodsXR FOOT RIGHT 3 VIEWSon 18-58-3263XF FOOT RIGHT 3 VIEWSEXAM: XR FOOT RIGHT 3 VIEWS, XR ANKLE [...] IMPRESSION: Radiographically negative right foot and right ankle.[facility] SouthwoodsXR Ankle - right 3 Viewson 37-67-1855Tcdftagof Study observation (narrative)[facility] ClinicXR Foot - right 3 Viewson 28-85-9291Yksmsanki Study observation (narrative)[facility] ClinicPSA, REFLEX TO FREE AND TOTAL PSAon 31-23-0118Tfrpfowxazprmc and review of laboratory resultsNormalOSU [facility] County HospitalProstate specific Ag [Mass/Vol]0.68 ng/mL<=4.00[facility] HospitalComment on above:This test was performed on the MoveEZ Immunoassay platform which is a 2-step sandwich chemiluminescent immunoassay. It is important to note that assays using different manufacturers and/or methods may not be comparable.[facility] HospitalTYPE AND SCREEN - PREADMISSIONon 46-56-1310ZIH/RH(D) TYPEPositiveOSU Wood County HospitalOSU [facility] County HospitalXR Spine Lumbar and Sacrum 5 Viewson 69-19-6414OXYOIRBFKP: No evidence of acute fracture or dislocation. No significant degeneration. RADIOLOGYEXAM: XR SPINE LUMBOSACRAL 5 VIEWS HISTORY: Low back pain. COMPARISON: None. TECHNIQUE: 5 views. FINDINGS: 5 lumbar type vertebrae are present. Pedicles are intact. Vertebral body heights and disc spaces are well-maintained. No evidence of acute fracture or dislocation. Radha Liu DO - 10/13/2021 EXAM: XR SPINE LUMBOSACRAL 5 VIEWS HISTORY: Low back pain. COMPARISON: None. TECHNIQUE: 5 views. FINDINGS: 5 lumbar type vertebrae are present. Pedicles are intact. Vertebral body heights and disc spaces are well-maintained. No evidence of acute fracture or dislocation. IMPRESSION IMPRESSION: No evidence of acute fracture or dislocation. No significant degeneration. [facility] ClinicXR Spine Lumbar and Sacrum 5 ViewsOrdered By: Radha Tejada on 04-95-1755VsnwaOhioHealth Marion General Hospital Work Phone: US Kidneyon 40-48-6480WKDERUHHZB: 1. Polycystic kidneys. 2. Mild hydronephrosis of the right lower quadrant renal transplant which allowing for differences in technique is similar to CT from 12/25/2019. RADIOLOGYEXAM: US RENAL INDICATION: Polycystic kidney disease. Renal [...] CT. Bladder: Normal. Bilateral ureteral jets seen. RADIOLOGYCedeno Trisha Gonzalez MD - 10/12/2021 EXAM: US RENAL INDICATION: [...] technique is similar to CT from 12/25/2019. [facility] ClinicRadiology Study observation (narrative)[facility] ClinicUS KidneyOrdered By: Trisha Gonzalez on 96-80-1601DvoabOhioHealth Marion General Hospital Work Phone: xr Spine Lumbar and Sacrum 5 Viewson 10-12-2021 Radiology Study observation (narrative)[facility] ClinicPOCT URINALYSIS DIPSTICK AUTOMATED W/O SCOPon 67-41-0528Ysgaxbean sediment LM Ql (Urine sed) [facility] ClinicAppearance (U)CLEARCleveland ClinicBacteria LM Ql (Urine sed)[facility] ClinicBilirubin Ql (U)NegativeCleveland ClinicCasts LM.LPF (Urine sed) [#/Area][facility] ClinicColor (U)YELLOWCleveland Clinic Crystals LM Nom (Urine sed)[facility] ClinicEpithelial cells.squamous LM.HPF (Urine sed) [#/Area][facility] ClinicFlow cytometry specialist review Vikas (Unsp spec) [Interp][facility] ClinicGlucose Auto test strip (U) [Mass/Vol] Negativemg/dLCleveland ClinicInterpretation and review of laboratory results NormalCleveland ClinicKetones [Mass/Vol]Negativemg/dLCleveland Clinic Leukocyte esterase Qn (U)Cleveland ClinicLeukocyte esterase Test strip Ql (U) NegativeCleveland ClinicNitrite Ql (U)NegativeCleveland ClinicpH (U)7.0 [pH][facility] ClinicProtein Ql (U)Negativemg/dLCleveland ClinicRBC LM.HPF (Urine sed) [#/Area][facility] ClinicRBC Ql (U)NegativeC[facility] Clinic Specific gravity (U) [Rel density]1.025Cleveland ClinicTransitional cells LM Ql (Urine sed)Cleveland ClinicUrobilinogen Qn (U)0.2AOhioHealth Marion General HospitalWBC LM.HPF (Urine sed) [#/Area][facility] DaytonECG 12 lead ECG on 05-76-0026ZMC 12 lead ECGAKRON [place] [address] Electrocardiograph Report Signed Patient: Zoie Heath MR#: [id number] : 1965 Acct:[id number] Age/Sex: 53 / M ADM Date: 08/06/18 Loc: [place] Room: Type: [facility] Attending Dr: Familia Stringer MD Ordering [...] Jiménez DO 08/06/18 0759 Signed By: 08/06/18 1203[facility] 08-06-2018L Specimen: [id number] Received: 08/06/18 Status: EMILIE Sanchez Num: [id number] Spec Type: Surgical Subm Dr: Familia Stringer MD Tissues: A Fistula (LT UP ARM FISTULA) Procedures: HE Stain, Gross/Micro L3 Patient Age/Sex Location Account Attending Physician Zoie Heath 53/[facility] [place] [id number] Familia Stringer MD SPEC NUM: [id number] RECD: 08/06/18 STATUS: EMILIE LAURA NUM: [id number] ZULEIMA: 08/06/[address] [facility] [address]: Familia Stringer MD ENTERED: 08/06/18 [facility] DR: ADAM TYPE: Surgical DEPT: S ENTERED BY: [id number] RECV BY: [id number] ORDERED: HE Stain, Gross/Micro L3 ORDERED: HE [...] specimen is red, laminated, gelatinous blood clot. Industrial Truck Driver sections are submitted in one cassette. (OCTAVIO/ORACIO/mary anne) Microscopic One glass slide with H E stained material has been examined. The microscopic findings support the above pathologic diagnosis. 77[address] A. Fistula - LT UP ARM FISTULA Specimen: [id number] Received: 08/06/18 Status: EMILIE Laura Num: [id number] Spec Type: Surgical Subm Dr: Familia Stringer MD Tissues: A Fistula (LT UP ARM FISTULA) Procedures: SONYA Garner, Gross/Micro L3 Patient: Zoie Heath [id number] (Continued) Signed (signature on file) Jone Bentley MD 08/07/18 1512Normal [facility] HospitalPotassiumon 33-46-5092Wfgdjlrhm molar conc4.9 mmol/LNormal3.5-5.1FOhio State East HospitalComment on above:Result Comment: PERFORMED BY: [facility] [address] SERVICESDahl[address] [id number] PATHOLOGIST INTELLIGENCE DIRECTOR CLARIBEL MCKENZIE M.D.Performed By: #### K #### [facility] [address] [place] [id number] USACBC, PLATELETS PANEL, MANUAL ENTERon 25-85-9354YPR, PLATELETS, MANUAL ENTERInvalid Interpretation CodeLAB, OSUHEMATOCRIT (HCT), MANUAL ZOVOL00Alovfao Interpretation CodeLAB, OSUHemoglobin (HGB), MANUAL ENTER 16.1Invalid Interpretation CodeLAB, OSUMEAN CELL HGB CONCENTRATION, MANUAL ENTER Invalid Interpretation CodeLAB, OSUMEAN CELL VOLUME, MANUAL ENTERInvalid Interpretation CodeLAB, OSUMEAN PLATELET VOLUME, MANUAL ENTERInvalid Interpretation CodeLAB, OSUPLATELETS, MANUAL ZLZKS662Vrdwzin Interpretation Code LAB, OSUWBC, MANUAL ENTER7.2Invalid Interpretation CodeLAB, OSU NA,K,CL,CO2,BUN,CREA,GLUC, MANUAL ENTERon 23-59-6170Slhmz Urea Nitrogen (BUN), MANUAL OPLTE19Gkwbyiy Interpretation CodeLAB, OSUCarbon Diox(CO2), MANUAL ENTER 26Invalid Interpretation CodeLAB, OSUChloride (CL), MANUAL MNBUC459Jqhtqis Interpretation CodeLAB, OSUCREATININE, SERUM, MANUAL ENTER1.7Invalid Interpretation CodeLAB, OSUGLUCOSE, MANUAL CWPLM724Eukueho Interpretation Code LAB, OSUPOTASSIUM (K+), MANUAL ENTER5.5Invalid Interpretation CodeLAB, OSUSODIUM (NA), MANUAL GLHOF233 mmol/LInvalid Interpretation CodeLAB, OSUUrinalysison 02-61-8089GUO Test strip #/vol (U)Invalid Interpretation CodeLAB, OSUFax Request on 77-55-0426Wgh [id number] Health Greene MemorialComcorewell health ludington hospital on above: Performed By: #### FX ####[facility] [address] [place] [id number] lab Director: Reji Sandoval 12:58 01/28/17NormalGalion Community HospitalComment on above:Performed By: #### FX ####[facility] Zcbitsrfsj[address] [place] [address] Lab Director: Dr. Bryce Vaughn, LAKESHApecimen #[id number] Health Greene MemorialComment on above: Performed By: #### FX ####[facility] Nsogtzquoi[address] [place] [address] Lab Director: Dr. Bryce Vaughn, DOTacrolimus Lvlon 27-41-0404Rexv Dose7. at [address] [place], [place] [address]Comment on above:Performed By: #### LTAC ####[facility] Jrzlfrz353 [facility] [place] [address] Vxsfhysuvq LevelSee Ref. Lab reportSelect Medical Specialty Hospital - YoungstownComment on above: Performed By: #### LTAC ####[facility] Waskrwz779 [facility] [address] Dja Requeston 89-92-3328Ihs [id number] Health Upper Valley Medical CenterComment on above:Performed By: #### FX ####[facility] Kjjzxrqvmi415 [place] [address] Lab Director: Dr. Bryce Vaughn, DOFaxed ByS 01/21/17 @ [facility] MemorialComment on above:Performed By: #### FX ####[facility] [address]qnvgwhbpg014 [place] [address] Lab Director: Dr. Bryce Vaughn, DOLipid Profile on 41-18-1353Xchrofwusec341 mg/kFUyxnpa597 - 199[facility] Comment on above:Performed By: #### LIP2 ####[facility] Okcjmsj217 [facility] [place] [address] Onjroqyoaqi in VLDL mass conc 13.0 mg/dLNormal<50.0[facility] HospitalComment on above:Performed By: #### LIP2 ####[facility] Hospitalyrus6[address] [facility] [place] [address] UuyrixnFzlbssQzfpctp Community HospitalComment on above:Result Comment: Suggested Reference RangeDesirable <200 mg/dLBoderline High 200- 239mg/dLHigh >240 mg/dLPerformed By: #### LIP2 ####[facility] Hospitalyrus629 [facility] [place]Kim[place] 1148220 Ykweevtm Risk2.88 NormalNationwide Children'S Hospital HospitalComment on above:Performed By: #### LIP2 ####[facility] Centerus6[address] [place] [address] [phone] Risk Ref TextNoParkview Health Montpelier Hospital HospitalComment on above: Result Comment: Risk Ratio Men Women1/2 Average 3.433.27Average 4.97 4.442X Average 9.55 7.053X Eritkbr92.99 11.04Performed By: #### LIP2 ####[facility] Centerus629 [facility] [place] [address] WAH Ehlnflomzyj70 mg/iOTdljnb50 - 60BuRegency Hospital Cleveland East HospitalComment on above: Performed By: #### LIP2 ####[facility] Hospitalyrus629 [facility] [place]Lindsey [place] [id number] DAT Lugrgndutvh23 mg/dlNormal0 - 100[facility] HospitalComment on above:Performed By: #### LIP2 ####[facility] Hospitalyrus629 [facility] [place] [address] Tireazgj # Vitros 5600NoParkview Health Montpelier Hospital HospitalComment on above:Performed By: #### LIP2 ####[facility] Hospitalyrus629 [place] [address] Umrvwlgskqwz47 mg/dLNormal<150[facility] CompanyComment on above:Performed By: #### LIP2 ####[facility] [address] [place] [address] Qxdwmmdsff Lvlon 68-11-2840Ctuu Dose01.20.2017 AT 2300NoMiddletown HospitalComment on above:Performed By: #### LTAC ####[facility] [address] [place] [address] [phone] ByLabcorp Suburban Community Hospital & Brentwood HospitalComment on above:Performed By: #### LTAC ####[facility] Ehkleydqad7[address] [place] [address] Lab Director: Dr. Bryce Vaughn, LAKESHApecimen #[id number] Health Greene MemorialComment on above: Performed By: #### LTAC ####[facility] Poclqmhdgr257 [place] [address] Lab Director: Dr. Bryce Vaughn, DOPerformed By: #### FX ####[facility] Zjpflsvmya892 [place] [address] Lab Director: Dr. Bryce Vaughn, DOTacrolimus LevelSee Ref. Lab reportSelect Medical Specialty Hospital - YoungstownComment on above:Performed By: #### LTAC ####[facility] U[address]igmmx[address] [place] [address] Ybdgghtiqz Lvl7.4 [facility] MemorialComment on above:Performed By: #### LTAC ####[facility] Gndngzepid516 [place] [address] Lab Director: Dr. Bryce Vaughn, DOTacrolimus Lvl Ref [facility]aconess HospitalComment on above:Result Comment: Reference range: 2.0 to 20.0 Unit: ng/mL(NOTE) Trough (immediately following transplant) 15.0 Trough (steady state, 2 weeks or more after transplant): 3.0 - 8.0 Detection Limit = 1.0 Performed by LC-MS/MS technology.PERFORMED AT [facility] CENTERPerformed By: #### LTAC ####[facility] Zfemjabkzy637 [place] [address] lab Director: SUSAN Sandovalbaptist health [facility]ange 00-11-1252RqlwxkgtjLkdn: OutpatientDictated by: Signed by: Transcribed by: Transcribed Date/Time: 01/04/2017 12:06Dictation Date/Time: 01/02/2017 10:49Report: DATE OF SERVICE: 12/26/2016 DIAGNOSTIC STUDIES/INTERPRETATION: Three views of the left wrist taken in our office today interpreted by me demonstrate a distal radius fracture, which is nondisplaced and non-angulated. The fracture lines are less evident and there are signs of callus healing compared to previous study. The metacarpals and remaining components of the wrist remain well aligned. No other acute osseous abnormalities noted.[facility] MemorialTacrolimus Lvlon 01-14-2017 Last Dose01-13-17 AT 2200Select [facility]ty Hospital - YoungstownComment on above: Performed By: #### LTAC ####[facility] Amkexsw[address] [place] [address] Rita's Medical CenterComcorewell health ludington hospital on above:Performed By: #### LTAC ####[facility] Rigoiwjgdm103 [place] [address] lab Director: Dr. Bryce Vaughn, DOSpecimen #[id number] [facility] on above:Performed By: #### LTAC ####[facility] Tygjujmwrr844 [place] [address] Lab Director: Dr. Bryce Vaughn, DOTacrolimus LevelSee Ref. Lab reportLima City Hospital on above:Performed By: #### LTAC ####[facility] [address] [place] [id number] Mbyxpauued Lvl8.7[facility] on above: Performed By: #### LTAC ####[facility] [address]baelrjtvu[address] [place] [address] Lab Director: Dr. Bryce Vaughn, DOTacrolimus Lvl Ref [facility] on above:Result Comment: Reference range: 2.0 to 20.0 Unit: ng/mL(NOTE) Trough (immediately following transplant) 15.0 Trough (steady state, 2 weeks or more after transplant): 3.0 - 8.0 Detection Limit = 1.0 Performed by LC-MS/MS technology.PERFORMED AT [facility] CENTERPerformed By: #### LTAC ####[facility] [address] [place] [address] lab Director: Dr. Bryce Vaughn, DOTacrolimus Lvlon 18-49-0767Qdow Dose7.9.[address] [place] [address] on above:Performed By: #### LTAC ####[facility] Lvvvihi[address] [place] [address] Kbxubcoyu ByBethesda North Hospital on above:Performed By: #### LTAC ####[facility] Jxtpixalgy200 [place] [address] Lab Director: Dr. Bryce Vaughn, DOSpecimen #[id number] Health Institute on above:Performed By: #### LTAC ####[facility] Flhubyyuhe[address] [place] [address] Lab Director: Dr. Bryce Vaughn, DOTacrolimus LevelSee Ref. Lab reportLima City Hospital on above:Performed By: #### LTAC ####[facility] [address]fi[address] [place] [id number] Aafusgssmx Lvl7.2NProMedica Defiance Regional HospitalComcorewell health ludington hospital on above: Performed By: #### LTAC ####[facility] Iqordoxvfn325 [place] [address] [facility] Director: Dr. Bryce Vaughn, DOTacrolimus Lvl Ref [facility] on above:Result Comment: Reference range: 2.0 to 20.0 Unit: ng/mL(NOTE) Trough (immediately following transplant) 15.0 Trough (steady state, 2 weeks or more after transplant): 3.0 - 8.0 Detection Limit = 1.0 Performed by LC-MS/MS technology.PERFORMED AT [facility] CENTERPerformed By: #### LTAC ####[facility] [address] [place] [address] [facility] Director: Dr. Bryce Vaughn, DOTacrolimus Lvlon 94-55-3438Dxfj Dose7 [address] [place] [address] on above:Performed By: #### LTAC ####[facility] [address]cganq[address] [place] [address] Fzpmhmphq ByBethesda North Hospital on above:Performed By: #### LTAC ####[facility] Uriiuszizy207 [place] [address] lab Director: Dr. Bryce Vaughn, DOSpecimen #[id number] Health Institute on above:Performed By: #### LTAC ####[facility] Pqdbbbgnxg527 [place] [address] lab Director: Dr. Bryce Vaughn, DOTacrolimus LevelSee Ref. [facility] on above:Performed By: #### LTAC ####[facility] Yyyqflu[address] [place] [address] Gbmhyusvfr Lvl8.3NormDuke Raleigh Hospitalon Summit Medical Center - CasperComment on above: Performed By: #### LTAC ####[facility] [address]wiqhrlpwd348 [place] [address] Lab Director: Dr. Bryce Vaughn, DOTacrolimus Lvl Ref TextNormalGalion Summit Medical Center - CasperComment on above:Result Comment: Reference range: 2.0 to 20.0 Unit: ng/mL(NOTE) Trough (immediately following transplant) 15.0 Trough (steady state, 2 weeks or more after transplant): 3.0 - 8.0 Detection Limit = 1.0 Performed by LC-MS/MS technology.PERFORMED AT [facility] CENTERPerformed By: #### LTAC ####[facility] Nkneeiiweu278 [place] [address] lab Director: Dr. Bryce Vaughn, DO Vital Signs Date TimeVital SignValuePerforming MmqqaxhjuIbwypjdq31-08-9591 08:56-0400Body beuyvd720.18 cmCayla Velazquez APRN Work Phone: [facility]08-28-2025 08:56-0400 Body mass index (BMI) [Ratio]26.2 kg/d6WzsutjpkCayla Velazquez APRN Work Phone: [facility]08-28-2025 08:56-0400 Body .7 [degF]Cayla Velazquez APRN Work Phone: [facility]08-28-2025 08:56-0400 Body efpkfq06.74 kgCayla Velazquez APRN Work Phone: [facility]08-28-2025 08:56-0400 Diastolic blood tzdfqroh14 mm[Hg]Cayla Velazquez APRN Work Phone: [facility]08-28-2025 08:56-0400 Heart rate51 /Pasha Velazquez INSURANCE SALES SPECIALIST Work Phone: [facility]08-28-2025 08:56-0400 SaO2% (BldA) [Mass fraction]99 %Cayla Velazquez INSURANCE SALES SPECIALIST Work Phone: [facility]08-28-2025 08:56-0400 Systolic blood vunxmjkx170 mm[Hg]Cayla Velazquez INSURANCE SALES SPECIALIST Work Phone: [facility]11-21-2024 10:04-0500 Body imialv514.2 cmKiyudelkaadeola Johnsonich INSURANCE SALES SPECIALIST-CYBER DEFENSE FORENSICS ANALYST Work Phone: [facility]11-21-2024 10:04-0500Body mass index (BMI) [Ratio]32.83 kg/u6Qrrzhphadeola Johnsonich INSURANCE SALES SPECIALIST-CYBER DEFENSE FORENSICS ANALYST Work Phone: [facility]11-21-2024 10:04-0500Body dfckxiqgjyy03.1 [degF]Liza [facility]back[facility] INSURANCE SALES SPECIALIST-CYBER DEFENSE FORENSICS ANALYST Work Phone: [facility]11-21-2024 10:04-0500Body qfovrt94.07 kgKiservando Penn INSURANCE SALES SPECIALIST-CYBER DEFENSE FORENSICS ANALYST Work Phone: [facility]11-21-2024 10:04-0500 Diastolic blood izypkjcj96 mm[Hg]Liza Johnsonupl[facility] INSURANCE SALES SPECIALIST-CYBER DEFENSE FORENSICS ANALYST Work Phone: [facility]11-21-2024 10:04-0500Heart rate70 /minLiza Popenational park medical center INSURANCE SALES SPECIALIST-CYBER DEFENSE FORENSICS ANALYST Work Phone: [facility]11-21-2024 10:04-0500 Respiratory rate16 /minGeorgeadeola Srguillermoashleyevich INSURANCE SALES SPECIALIST-CYBER DEFENSE FORENSICS ANALYST Work Phone: [facility]11-21-2024 10:04-0944FaC4% (BldA) [Mass fraction]99 %Liza Penn INSURANCE SALES SPECIALIST-CYBER DEFENSE FORENSICS ANALYST Work Phone: [phone]50[facility]11-21-2024 10:04-0500Systolic blood mm[Hg]Liza Johnsonich INSURANCE SALES SPECIALIST-CYBER DEFENSE FORENSICS ANALYST Work Phone: [phone]10-24-2024 09:56-0400Body vtrrij576.2 cmKiservando Penn INSURANCE SALES SPECIALIST-CYBER DEFENSE FORENSICS ANALYST Work Phone: [phone]72[facility]10-24-2024 09:56-0400Body mass index (BMI) [Ratio]33.74 kg/n6Ddxggqwservando Navanilatrice INSURANCE SALES SPECIALIST-CYBER DEFENSE FORENSICS ANALYST Work Phone: [phone]14[facility]10-24-2024 09:56-0400Body xpdkysmeytj07.2 [degF]Liza Penn INSURANCE SALES SPECIALIST-CYBER DEFENSE FORENSICS ANALYST Work Phone: [phone]13[facility]10-24-2024 09:56-0400Body lazqcy69.7 kgKiservando Penn INSURANCE SALES SPECIALIST-CYBER DEFENSE FORENSICS ANALYST Work Phone: [phone]25[facility]10-24-2024 09:56-0400 Diastolic blood vkggwdic18 mm[Hg]Liza Johnsonich INSURANCE SALES SPECIALIST-CYBER DEFENSE FORENSICS ANALYST Work Phone: [phone]10-24-2024 09:56-0400Heart rate63 /minKirsten Tychonievanich INSURANCE SALES SPECIALIST-CYBER DEFENSE FORENSICS ANALYST Work Phone: [phone]10-24-2024 09:56-0400 Respiratory rate16 /minKirsten Tychonievich INSURANCE SALES SPECIALIST-CYBER DEFENSE FORENSICS ANALYST Work Phone: [phone]10-24-2024 09:56-2756EeG5% (BldA) [Mass fraction]100 %Liza Navanievanich INSURANCE SALES SPECIALIST-CYBER DEFENSE FORENSICS ANALYST Work Phone: [facility] HospitalComment on above:toom air 04-23-2024 09:56-0400Systolic blood mm[Hg]Liza Penn APRN-CYBER DEFENSE FORENSICS ANALYST Work Phone: [facility]10-22-2024 14:13-0400Body mass index (BMI) [Ratio]34.03 kg/v4Xoquqduoqmcoleman UNGER Work Phone: [phone]10-22-2024 14:13-0400Body wvqwzqkodjl39.1 [degF]Sam UNGER Work Phone: [phone]5927[facility]10-22-2024 14:13-0400Body .57 kgSam UNGER Work Phone: [phone])[facility]3687[facility]10-22-2024 14:13-0400 Diastolic blood rsbudjzb08 mm[Hg]Sam UNGER Work Phone: [phone]4086[facility]10-22-2024 14:13-0400Heart rate72 /minSam UNGER Work Phone: [phone] [place], [place] [address]57[facility]10-22-2024 14:13-0400Systolic blood lcdhguai358 mm[Hg]Sam UNGER Work Phone: [phone]4593[facility]10-22-2024 11:24-0400Body mass index (BMI) [Ratio]33.63 kg/c9AfsdpIsabell Frank MD Work Phone: [phone]10-22-2024 11:24-0400Body wnkunp80.39 kgIsabell Frank MD Work Phone: [phone]10-22-2024 11:24-0400 Diastolic blood taaascug55 mm[Hg]Isabell Frank MD Work Phone: [phone]10-22-2024 11:24-0400Heart rate60 /Alhaji Frank MD Work Phone: [facility]10-22-2024 11:24-3494GtG9% (BldA) [Mass fraction]99 %Isabell Frank MD Work Phone: [phone]10-22-2024 11:24-0400Systolic blood hovcoupb585 mm[Hg]Isabell Frank MD Work Phone: [phone]85[facility]10-10-2024 10:22-0400Body ijzjzk056.2 cmSlori Gallegos MD Work Phone: [phone]58[facility]10-10-2024 10:22-0400Body mass index (BMI) [Ratio]36.18 kg/l7KnjpdGriselda Gallegos MD Work Phone: [phone]10-10-2024 10:22-0400Body ywuvpevrhst10.81 [degF]Griselda Gallegos MD Work Phone: [phone]10-10-2024 10:22-0400Body mubyej348.78 kgGriselda Gallegos MD Work Phone: [phone]53[facility]10-10-2024 10:22-0400 Diastolic blood dtbafrps99 mm[Hg]Griselda Gallegos MD Work Phone: [facility]10-10-2024 10:22-0400Heart rate61 /Katarina Gallegos MD Work Phone: [facility]10-10-2024 10:22-0400 Respiratory rate16 /Katarina Gallegos MD Work Phone: [facility]10-10-2024 10:22-9614LdZ3% (BldA) [Mass fraction]100 %Griselda Gallegos MD Work Phone: [facility] HospitalComment on above:room air 04-09-2024 10:22-0400Systolic blood mm[Hg]Griselda Gallegos MD Work Phone: [facility]10-08-2024 13:56-0400Body bfogyj238.18 cmMer[facility]10-08-2024 13:56-0400Body mass index (BMI) [Ratio]36.8 kg/e7JpihrgsbuMercy Health Perrysburg Hospital10-08-2024 13:56-0400Body xtussbprgcq01.8 [degF][facility]10-08-2024 13:56-0400Body kmkdoe626.7 kgMercy Health [facility]sburg Hospital10-08-2024 13:56-0400Diastolic blood mm[Hg][facility] 04-07-2024 13:56-0400Heart rate68 /[facility] 04-07-2024 13:56-7107WuV6% (BldA) [Mass fraction]96 %[facility]10-08-2024 13:56-0400Systolic blood ispmixor237 mm[Hg][facility]10-07-2024 10:59-0400Body vrigwv146.2 cmCayla Gonzalez APRN-CYBER DEFENSE FORENSICS ANALYST Work Phone: [phone]10-07-2024 10:59-0400Body mass index (BMI) [Ratio]36.57 kg/q6OftcocdbCayla Gonzalez APRN-CYBER DEFENSE FORENSICS ANALYST Work Phone: [phone]10-07-2024 10:59-0400Body hwyrtm540.92 kgCayla Gonzalez APRN-CYBER DEFENSE FORENSICS ANALYST Work Phone: [phone]10-07-2024 10:59-0400Heart rate71 /Pasha Gonzalez APRN-CYBER DEFENSE FORENSICS ANALYST Work Phone: [phone]10-07-2024 10:59-4456WgP9% (BldA) [Mass fraction]99 %Cayla Gonzalez APRN-CYBER DEFENSE FORENSICS ANALYST Work Phone: [facility]09-28-2024 10:30-0400Body bizycrqfdir69.6 [degF]Griselda Gallegos MD Work Phone: [facility]09-28-2024 10:30-0400 Diastolic blood mm[Hg]Griselda Gallegos MD Work Phone: [facility]09-28-2024 10:30-0400Heart rate68 /Katarina Gallegos MD Work Phone: [facility]09-28-2024 10:30-0400 Respiratory rate16 /Katarina Gallegos MD Work Phone: [facility]09-28-2024 10:30-8937QrB9% (BldA) [Mass fraction]95 %Griselda Gallegos MD Work Phone: [facility]09-28-2024 10:30-0400Systolic blood ehexldtx975 mm[Hg]Griselda Gallegos MD Work Phone: [facility]09-26-2024 02:34-0400Body mass index (BMI) [Ratio]37.07 kg/f0InzzrGriselda Gallegos MD Work Phone: [facility]09-26-2024 02:34-0400Body .37 kgGriselda Gallegos MD Work Phone: [facility]09-23-2024 08:55-0400Body isfmzr129.2 cmSlori Gallegos MD Work Phone: [facility]08-27-2024 10:18-0400Body rrcour400.2 cmSulma Plata INSURANCE SALES SPECIALIST-CYBER DEFENSE FORENSICS ANALYST Work Phone: [facility]08-27-2024 10:18-0400Body mass index (BMI) [Ratio]37.26 kg/g5Mttdym Sherlyn INSURANCE SALES SPECIALIST-CYBER DEFENSE FORENSICS ANALYST Work Phone: [phone] [place], [place] 5164608-27-2024 10:18-0400Body ejymjkuyzex09.2 [degF]Sulma Plata INSURANCE SALES SPECIALIST-CYBER DEFENSE FORENSICS ANALYST Work Phone: [phone] [place], [place] 5164608-27-2024 10:18-0400Body awojre124.91 kgChristopheedgar Joynerner INSURANCE SALES SPECIALIST-CYBER DEFENSE FORENSICS ANALYST Work Phone: [phone] [place], [place] 5164608-27-2024 10:18-0400 Diastolic blood iksddlcz93 mm[Hg]Sulma Joynerner INSURANCE SALES SPECIALIST-CYBER DEFENSE FORENSICS ANALYST Work Phone: [phone] [place], [place] 5164608-27-2024 10:18-0400Heart rate57 /minSulma Plata INSURANCE SALES SPECIALIST-CYBER DEFENSE FORENSICS ANALYST Work Phone: [phone] [place], [place] 5164608-27-2024 10:18-0400 Respiratory rate16 /minSulma Plata INSURANCE SALES SPECIALIST-CYBER DEFENSE FORENSICS ANALYST Work Phone: [phone] [place], [place] 5164608-27-2024 10:184782ZfC7% (BldA) [Mass fraction]97 %Sulma Plata INSURANCE SALES SPECIALIST-CYBER DEFENSE FORENSICS ANALYST Work Phone: [phone] [place], [place] 5164608-27-2024 10:18-0400Systolic blood knlkqijm069 mm[Hg]Sulma Joynerner INSURANCE SALES SPECIALIST-CYBER DEFENSE FORENSICS ANALYST Work Phone: [phone] [place], [place] 5164608-26-2024 09:09-0400Body .18 cmMer[facility]08-26-2024 09:09-0400Body mass index (BMI) [Ratio]36.9 kg/g0JsrcumemkMercy Health [facility] Hospital08-26-2024 09:09-0400Body nkycng079.04 kgMercy Health [facility] Hospital08-26-2024 09:09-0400Diastolic blood hdtbvqsy01 mm[Hg][facility] 02-24-2024 09:09-0400Heart rate62 /minMercy Health Perrysburg Hospital 02-24-2024 09:09-2376CoF4% (BldA) [Mass fraction]98 %[facility]08-26-2024 09:09-0400Systolic blood idphyvao975 mm[Hg][facility]08-22-2024 11:20-0400Body udphon910.2 cmSlori Gallegos MD Work Phone: [phone]08-22-2024 11:20-0400Body mass index (BMI) [Ratio]37.59 kg/e0NjezpGriselda Gallegos MD Work Phone: [phone]15[facility]08-22-2024 11:20-0400Body bcfxjuyzotq36.2 [degF]Griselda Gallegos MD Work Phone: [phone]08-22-2024 11:20-0400Body zjgetq048.86 kgGriselda Gallegos MD Work Phone: 1(397)[address]08-22-2024 11:20-0400 Diastolic blood ysovnreq29 mm[Hg]Griselda Gallegos MD Work Phone: 1(928)842-72[facility]08-22-2024 11:20-0400Heart rate62 /Katarina Gallegos MD Work Phone: 1(610)180[facility]95[facility]08-22-2024 11:20-0400 Respiratory rate16 /Katarina Gallegos MD Work Phone: 1(324)013-58[facility]08-22-2024 11:20-3491NmY3% (BldA) [Mass fraction]98 %Griselda Gallegos MD Work Phone: 1(022)567-47[facility]08-22-2024 11:20-0400Systolic blood cytqpndk938 mm[Hg]Griselda Gallegos MD Work Phone: 1(159)586-56[facility]07-17-2024 11:08-0400Body fiwnhf203.2 Eitan Saravia MD Work Phone: [facility]07-17-2024 11:08-0400Body mass index (BMI) [Ratio]37.93 kg/i3OwgltmlyRodrigo Saravia MD Work Phone: 1(606)333-[address] [place], [place] 1153007-17-2024 11:08-0400Body hihgmpxoxtd25.01 [degF]Rodrigo Saravia MD Work Phone: 1(627)931-[address] [place], [place] 7569107-17-2024 11:08-0400Body weight 109.86 kgRodrigo Saravia MD Work Phone: 1(074)504-[address] [place], [place] 7569107-17-2024 11:08-0400Diastolic blood ckhzjenv94 mm[Hg]Rodrigo Saravia MD Work Phone: 1(873)[address]07-17-2024 11:08-0400Heart rate68 /minRodrigo Saravia MD Work Phone: 1(669)[address]07-17-2024 11:08-0400Respiratory rate12 /minRodrigo Saravia MD Work Phone: 1(217)[address]07-17-2024 11:08-5949PkZ2% (BldA) [Mass fraction]96 %Rodrigo Saravia MD Work Phone: 1(433)192-[address] [place], [place] 7569107-17-2024 11:08-0400Systolic blood mm[Hg]Rodrigo Saravia MD Work Phone: 1(982)[address]06-26-2024 08:16-0400Body height 170.2 Beto Richardson MD [facility] 12-25-2023 08:16-0400Body mass index (BMI) [Ratio]37.07 kg/x0TszwhmCait Richardson MD Work Phone: [facility]06-26-2024 08:16-0400Body eaoaxc545.37 kgCait Richardson MD Work Phone: [facility]06-26-2024 08:16-0400 Diastolic blood zddttdny15 mm[Hg]Cait Richardson MD Work Phone: [facility]06-26-2024 08:16-0400Heart rate60 /minCait Richardson MD Work Phone: [facility]06-26-2024 08:16-5413IgS8% (BldA) [Mass fraction]98 %Cait Richardson MD Work Phone: [facility]06-26-2024 08:16-0400Systolic blood isatuklq333 mm[Hg]Cait Richardson MD Work Phone: [facility]06-05-2024 10:48-0400Body swviti230.2 cmRodrigo Saravia MD Work Phone: 1(639)321-[address] [place], [place] 1153006-05-2024 10:48-0400Body mass index (BMI) [Ratio]37.21 kg/n5WsildcjaRodrigo Saravia MD Work Phone: 1(648)509-[address] [place], [place] 1153006-05-2024 10:48-0400Body uipnykfsnkb87.8 [degF]Rodrigo Saravia MD Work Phone: 1(904)173-[address] [place], [place] 1153006-05-2024 10:48-0400Body weight 107.78 kgRodrigo Saravia MD Work Phone: [facility]06-05-2024 10:48-0400Diastolic blood mlmkxeku44 mm[Hg]Rodrigo Saravia MD Work Phone: 1(297)480-[address] [place], [place] 1153006-05-2024 10:48-0400Heart rate71 /minRodrigo Saravia MD Work Phone: 1(580)722-[address] [place], [place] 1153006-05-2024 10:48-0400Respiratory rate18 /minRodrigo Saravia MD Work Phone: [facility]06-05-2024 10:48-2767HbK2% (BldA) [Mass fraction]97 %Rodrigo Saravia MD Work Phone: [facility]06-05-2024 10:48-0400Systolic blood lsjhyakl36 mm[Hg]Rodrigo Saravia MD Work Phone: [facility]04-01-2024 15:22-0400Diastolic blood mm[Hg]Liza Brandymarysurjit INSURANCE SALES SPECIALIST-CY[employer] DEFENSE [employer]ENS[employer] ANALYST Work Phone: 1(557)658-99[facility]04-01-2024 15:22-0400Systolic blood zsqosrok073 mm[Hg]Liza Tychogeraldine INSURANCE SALES SPECIALIST-CYBER DEFENSE FORENSICS ANALYST Work Phone: 1(557)755[facility]24[facility]04-01-2024 13:51-0400Body ejptva852.2 cmKiservando Penn INSURANCE SALES SPECIALIST-CYBER DEFENSE FORENSICS ANALYST Work Phone: 1([phone]36[facility]04-01-2024 13:51-0400Body mass index (BMI) [Ratio]35.91 kg/v7Njojtqv Tyguillermonilatrice INSURANCE SALES SPECIALIST-CYBER DEFENSE FORENSICS ANALYST Work Phone: [facility]04-01-2024 13:51-0400Body joiltjjxbzw26.81 [degF]Liza Penn INSURANCE SALES SPECIALIST-CYBER DEFENSE FORENSICS ANALYST Work Phone: 1(362)790-37[facility]04-01-2024 13:51-0400Body fznape899.01 kgKirsadeola Penn INSURANCE SALES SPECIALIST-CYBER DEFENSE FORENSICS ANALYST Work Phone: 1(556)725-[address] [place], [place] 7601704-01-2024 13:51-0400Heart rate63 /minKirsadeola Tyivette INSURANCE SALES SPECIALIST-CYBER DEFENSE FORENSICS ANALYST Work Phone: [facility]04-01-2024 13:51-0400 Respiratory rate16 /minKirsten Tychonilatrice INSURANCE SALES SPECIALIST-CYBER DEFENSE FORENSICS ANALYST Work Phone: [facility]04-01-2024 13:51-3361FmM3% (BldA) [Mass fraction]98 %Liza Brandygeraldine INSURANCE SALES SPECIALIST-CYBER DEFENSE FORENSICS ANALYST Work [facility]: [facility]roomair 2023 10:30-0500Diastolic blood yeznobco51 mm[Hg]Schuyler Sparks MD Work Phone: 1(916)[address] [place], [place] 1135912-05-2023 10:30-0500Heart rate58 /minSchuyler Sparks MD Work Phone: 1(560)[address] [place], [place] 1135912-05-2023 10:30-0500 Respiratory rate22 /minSchuyler Sparks MD Work Phone: 1(957)[address] [place], [place] 1135912-05-2023 10:30-2363KvZ2% (BldA) [Mass fraction]97 %Schuyler Sparks MD Work Phone: 1(818)[address] [place], [place] 1135912-05-2023 10:30-0500Systolic blood jkgsjexk849 mm[Hg]Schuyler Sparks MD Work Phone: 1(739)[address] [place], [place] 1135912-05-2023 09:59-0500Body xqvttqiagra36.6 [degF]Schuyler Sparks MD Work Phone: 1(491)[address] [place], [place] 1135912-05-2023 09:09-0500Body srnfso110.2 Margie Sparks MD Work Phone: 1(092)[address] [place], [place] 1135910-20-2023 10:26-0400Body xrbpku667.2 cmSnaldo Diego DPM Work Phone: [facility]10-20-2023 10:26-0400Body mass index (BMI) [Ratio]38.4 kg/l1Fzllvung Bark DPM Work Phone: [facility]10-20-2023 10:26-0400Body yjsllnqtihz48.7 [degF]Javan Bark DPM Work Phone: [facility]10-20-2023 10:26-0400Body weight 111.2 kgSaadriano Diego DPM Work Phone: [facility]10-17-2023 14:21-0400Body height 170.2 cmTrismartir Miranda INSURANCE SALES SPECIALIST-CY[employer] DEFENSE [employer] ANALYST Work Phone: [facility]10-17-2023 14:21-0400Body mass index (BMI) [Ratio]38.4 kg/z2MyqtzGeovanna Miranda INSURANCE SALES SPECIALIST-CY[employer] DEFENSE FORENSICS ANALYST Work Phone: [facility]10-17-2023 14:040Body ruxjirggmra28.71 [degF]Geovanna Miranda INSURANCE SALES SPECIALIST-CY[employer] DEFENSE [employer]ICS ANALYST Work Phone: [facility]10-17-2023 14:040Body weight 111.22 kgTrmariajose Miranda INSURANCE SALES SPECIALIST-CY[employer] DEFENSE FOR[employer]ICS ANALYST Work Phone: [facility]10-17-2023 14:21-0400Diastolic blood chfcrymu26 mm[Hg]Geovanna Miranda INSURANCE SALES SPECIALIST-CY[employer] DEFENSE [employer] ANALYST Work Phone: [facility]10-17-2023 14:21-0400Heart rate86 /minGeovanna Miranda INSURANCE SALES SPECIALIST-CYBER DEFENSE FOR[employer]ICS ANALYST Work Phone: [facility]10-17-2023 14:-0400Respiratory rate18 /minGeovanna Miranda INSURANCE SALES SPECIALIST-CYBER DEFENSE FORENSICS ANALYST Work Phone: [facility]10-17-2023 14:-1853KxT4% (BldA) [Mass fraction]97 %Geovanna Miranda INSURANCE SALES SPECIALIST-CY[employer] DEFENSE FORENSICS ANALYST Work Phone: [facility]10-17-2023 14:21-0400Systolic blood srfyevql621 mm[Hg]Geovanna Miranda INSURANCE SALES SPECIALIST-CY[employer] DEFENSE FOR[employer]ICS ANALYST Work Phone: [facility]09-10-2023 23:11-0400Body height 170.2 cmIlia Shaffer MD Work Phone: [facility]09-10-2023 23:11-0400Body eybnzcvnbfr24.39 [degF]Ilia Shaffer MD Work Phone: [facility]09-10-2023 23:110400Diastolic blood mm[Hg]Ilia Shaffer MD Work Phone: [facility]09-10-2023 23:110400Heart rate67 /Jesica Shaffer MD Work Phone: [facility]09-10-2023 23:110400Respiratory rate20 /Jesica Shafefr MD Work Phone: 1(266)159-[address] [place], [place] 5498309-10-2023 23:119004PsC0% (BldA) [Mass fraction]100 %Ilia Shaffer MD Work Phone: [facility]09-10-2023 23:110400Systolic blood kpfusueh132 mm[Hg]Ilia Shaffer MD Work Phone: [facility]06-12-2023 14:04-0400Body height 170.2 cmKirsadeola Popeevansurjit INSURANCE SALES SPECIALIST-CY[employer] DEFENSE [employer] ANALYST Work Phone: [facility]06-12-2023 14:04-0400Body mass index (BMI) [Ratio]37.79 kg/j4Zfrefbkadeola Johnsonich INSURANCE SALES SPECIALIST-CY[employer] DEFENSE [employer] ANALYST Work Phone: [facility]06-12-2023 14:04-0400Body lrekofdtsan48.59 [degF]Liza [facility] INSURANCE SALES SPECIALIST-CYBER DEFENSE [employer]ICS ANALYST Work Phone: [facility]06-12-2023 14:04-0400Body veijwu665.45 kgKirsadeola Johnsonupland hills health INSURANCE SALES SPECIALIST-CYBER DEFENSE [employer]ICS ANALYST Work Phone: [facility]06-12-2023 14:04-0400 Diastolic blood kekcvejl24 mm[Hg]Liza Isamar INSURANCE SALES SPECIALIST-[employer] DEFENSE [employer] ANALYST Work Phone: [facility]06-12-2023 14:04-0400Heart rate65 /minLiza Penn INSURANCE SALES SPECIALIST-CY[employer] DEFENSE [employer] ANALYST Work Phone: [facility]06-12-2023 14:04-0400 Respiratory rate16 /minKirsten Isamar INSURANCE SALES SPECIALIST-CYBER DEFENSE [employer]ICS ANALYST Work Phone: [facility]06-12-2023 14:04-0400Systolic blood bohytxql420 mm[Hg]Liza Penn INSURANCE SALES SPECIALIST-CY[employer] DEFENSE [employer] ANALYST Work Phone: [facility]05-01-2023 09:57-0400Body ulhsun445.2 cmTrismartir Miranda INSURANCE SALES SPECIALIST-CY[employer]ENSE [employer]ICS ANALYST Work Phone: 1(616)166-[address] [place], [place] 7569105-01-2023 09:57-0400Body mass index (BMI) [Ratio]37.34 kg/z7JinjvGeovanna Miranda INSURANCE SALES SPECIALIST-[employer]ENSE [employer] ANALYST Work Phone: 1(097)388-[address] [place], [place] 7569105-01-2023 09:57-0400Body nyabqwprojf86.5 [degF]Geovanna Miranda INSURANCE SALES SPECIALIST-CY[employer] DEFENSE [employer] ANALYST Work Phone: 1(525)510-[address] [place], [place] 7569105-01-2023 09:57-0400Body weight 108.14 kgGeovanna Miranda INSURANCE SALES SPECIALIST-CY[employer] DEFENSE FOR[employer] ANALYST Work Phone: 1(114)343-[address] [place], [place] 7569105-01-2023 09:57-0400Diastolic blood wffeueoy01 mm[Hg]Geovanna Miranda INSURANCE SALES SPECIALIST-CY[employer] DEFENSE FOR[employer]ICS ANALYST Work Phone: 1(478)172-[address] [place], [place] 7569105-01-2023 09:57-0400Heart rate71 /minGeovanna Miranda INSURANCE SALES SPECIALIST-CYBER DEFENSE FOR[employer]ICS ANALYST Work Phone: 1(187)166-[address] [place], [place] 7569105-01-2023 09:57-0400Respiratory rate18 /minGeovanna Miranda INSURANCE SALES SPECIALIST-CY[employer] DEFENSE [employer]ENSICS ANALYST Work Phone: 1(643)735-[address] [place], [place] 7569105-01-2023 09:57-3069GoO8% (BldA) [Mass fraction]97 %Geovanna Miranda INSURANCE SALES SPECIALIST-CYBER DEFENSE FORENSICS ANALYST Work Phone: 1(227)844-[address] [place], [place] 1153005-01-2023 09:57-0400Systolic blood yyvpzxnx114 mm[Hg]Geovanna Miranda INSURANCE SALES SPECIALIST-CYBER DEFENSE FORENSICS ANALYST Work Phone: [facility] [employer] Mpeqjc65-59-4101 20:18-0400Body height 170.2 cmDavid Lamport PA-C Work Phone: 1(664) [phone]itjzp37-00-7571 20:18-0400Body mass index (BMI) [Ratio]38.01 kg/j9Ncahp Lamport PA-C Work Phone: 1(136) [phone]udlak68-42-0329 20:18-0400Body etgrkxiizls65.6 [degF]Mary Lamport PA-C Work Phone: 1(818) [phone]cswjh45-18-1715 20:18-0400Body axdgur550.09 kg Mary Lamport PA-C Work Phone: 1(372) [phone]leVrgvxg23-26-0492 20:18-0400Diastolic blood mm[Hg]Mary Lamport PA-C Work Phone: 1(910) [phone]zdkix82-95-6660 20:18-0400Heart rate74 /minDavid Lamport PA-C Work Phone: 1(548) [phone]ztout32-46-5204 20:18-0400Respiratory rate18 /min Mary Lamport PA-C Work Phone: 1(591) [phone]fbajj58-44-2910 20:18-9899JoP0% (BldA) [Mass fraction]93 %Mary Lamport PA-C Work Phone: 1(570) [phone]ekkkc77-48-3789 20:18-0400Systolic blood pressure 122 mm[Hg]Mary Lamport PA-C Work Phone: 1(148) [phone]pyons13-48-6109 07:18-0400Body gaashw201.2 cm Maico Hernadez MD Work Phone: [facility] [employer] Vmspfs87-82-6451 07:16-0400Body nzcrlvupozz94.9 [degF]Maico [facility]adez MD Work Phone: [facility] [employer] Sxwglp96-03-1464 07:16-0400Diastolic blood ecewltyn47 mm[Hg]Maico [facility]adez MD Work Phone: [facility]-26-2023 07:16-0400Heart rate67 /minMaico Hernadez MD Work Phone: 1(650)522-[address] [place], [place] 5828204-26-2023 07:16-0400Respiratory rate18 /minMaico Hernadez MD Work Phone: 1(211)547-[address] [place], [place] 5828204-26-2023 07:16-9995LhO6% (BldA) [Mass fraction]99 %Maico Hernadez MD Work Phone: 1(247)221-[address] [place], [place] 5828204-26-2023 07:16-0400Systolic blood ayrptkkw351 mm[Hg]Maico Hernadez MD Work Phone: 1(007)242-[address] [place], [place] 5828203-05-2023 12:57-0500Body mass index (BMI) [Ratio]36.59 kg/x5Beevwuelizabeth Vilchis CNP Work Phone: 1(890) [phone]jsxgd69-93-6602 12:57-0500Body fligrfrorpc36.61 [degF]Jayshree Vilchis CNP Work Phone: 1(873) [phone]dvwic60-47-9891 12:57-0500Body vrhezz658.96 kg Jayshree Vilchis CNP Work Phone: 1(864) [phone]jZaavuq58-29-7995 12:57-0500Diastolic blood bfpcxviu27 mm[Hg]Jayshree Vilchis CNP Work Phone: 1(863) [phone]wxZicebg80-60-0969 12:57-0500Heart rate86 /minDvicky Vilchis CY[employer] DEFENSE [employer] ANALYST Work Phone: 1(167) [phone]cpvXtibhv97-99-4663 12:57-0500Respiratory rate16 /min Jayshree Vilchis CY[employer] DEFENSE FOR[employer] ANALYST Work Phone: 1(979) [phone]hplzl66-22-1129 12:57-7488AcU0% (BldA) [Mass fraction]96 %Jayshree Vilchis CYBER DEFENSE FORENSICS ANALYST Work Phone: 1(983) [phone]kmtvv02-91-1471 12:57-0500Systolic blood pressure 114 mm[Hg]Jayshree Vilchis CNP Work Phone: 1(123) [phone]aolta80-59-4554 10:32-0500Body rykoog794.2 cm Jayshree Vilchis CNP Work Phone: 1(606) [phone]rJrjklm42-28-4161 10:32-0500Body mass index (BMI) [Ratio]37.12 kg/y7Hifafbelizabeth Vilchis CYBER DEFENSE FORENSICS ANALYST Work Phone: 1(304) [phone]hxpeq37-20-5928 10:32-0500Body yhpzqscpxvw72.2 [degF]Jayshree Vilchis CNP Work Phone: 1(197) [phone]hppym17-74-1606 10:32-0500Body zesdif521.5 kg Jayshree Vilchis CNP Work Phone: 1(506) [phone]kowke21-41-7066 10:32-0500Diastolic blood kbqsgeoy86 mm[Hg]Jayshree Vilchis CNP Work Phone: 1(375) [phone]lmpuv93-89-5619 10:32-0500Heart rate92 /minDvicky Vilchis CNP Work Phone: 1(447) [phone]ezvrz58-92-1248 10:32-0500Respiratory rate16 /min Jayshree Vilchis CNP Work Phone: 1(164) [phone]gtGsinid49-25-1159 10:32-1404IoV8% (BldA) [Mass fraction]96 %Jayshree Vilchsi CNP Work Phone: 1(666) [phone]mluiq82-82-7632 10:32-0500Systolic blood pressure 113 mm[Hg]Jayshree Vilchis CY[employer] DEFENSE FOR[employer]ICS ANALYST Work Phone: 1(173) [phone]qqqeu86-69-1338 10:51-0400Body yzfays857.2 cm Raheem Archuleta MD Work Phone: [facility]10-22-2022 10:50-0400Body ufdilrorclt49.01 [degF]Raheem Archuleta MD Work Phone: 1(419)468-[address] [place], [place] 3611610-22-2022 10:50-0400Diastolic blood osecmekf98 mm[Hg]Raheem Archuleta MD Work Phone: 1(867)853-[address] [place], [place] 3611610-22-2022 10:50-0400Heart rate67 /minRaheem Archuleta MD Work Phone: 1(203)[address]10-22-2022 10:50-0400Respiratory rate16 /minRaheem Archuleta MD Work Phone: 1(532)[address] [place], [place] 2422610-22-2022 10:50-1357XiM2% (BldA) [Mass fraction]97 %Raheem Archuleta MD Work Phone: 1(786)[address]10-22-2022 10:50-0400Systolic blood vhwmhbhe963 mm[Hg]Raheem Archuleta MD Work Phone: 1(397)[address]09-02-2022 14:25-0400Body height 170.2 cmTunm cancer centermartir Miranda INSURANCE SALES SPECIALIST-[employer]ENSE [employer] ANALYST Work Phone: 1(615)255-[address] [place], [place] 7569109-02-2022 14:25-0400Body mass index (BMI) [Ratio]35.15 kg/s7Yghugmariajose Healyk INSURANCE SALES SPECIALIST-CY[employer] DEFENSE [employer]ICS ANALYST Work Phone: 1(789)998-[address] [place], [place] 7569109-02-2022 14:25-0400Body pqnhhzigbvn73.1 [degF]Geovanna Harkinschik INSURANCE SALES SPECIALIST-CY[employer] DEFENSE FOR[employer]ICS ANALYST Work Phone: 1(112)518-[address] [place], [place] 7569109-02-2022 14:25-0400Body weight 101.79 kgTrmariajose Miranda INSURANCE SALES SPECIALIST-CY[employer] DEFENSE FORENSICS ANALYST Work Phone: 1(541)111-[address] [place], [place] 7569109-02-2022 14:25-0400Diastolic blood jncegcyr89 mm[Hg]Geovanna Miranda INSURANCE SALES SPECIALIST-CY[employer] DEFENSE FORENSICS ANALYST Work Phone: 1(682)650-[address] [place], [place] 7569109-02-2022 14:25-0400Heart rate73 /minTrmariajose Healyk INSURANCE SALES SPECIALIST-CYBER DEFENSE FORENSICS ANALYST Work Phone: 1(337)461-[address] [place], [place] 7569109-02-2022 14:25-0400Respiratory rate18 /minTrmariajose Miranda INSURANCE SALES SPECIALIST-CYBER DEFENSE FORENSICS ANALYST Work Phone: 1(568)144-[address] [place], [place] 1153009-02-2022 14:25-1800TyQ0% (BldA) [Mass fraction]97 %Geovanna Miranda APRN-CYBER DEFENSE FORENSICS ANALYST Work Phone: 1(598)783-[address] [place], [place] 1153009-02-2022 14:25-0400Systolic blood mm[Hg]Geovanna Miranda APRN-CYBER DEFENSE FORENSICS ANALYST Work Phone: 1(506)206-[address] [place], [place] 7569107-11-2022 08:20-0400Body height 170.2 cmTunm cancer centermartir Miranda INSURANCE SALES SPECIALIST-CYBER DEFENSE FORENSICS ANALYST Work Phone: 1(716)267-[address] [place], [place] 7569107-11-2022 08:20-0400Body mass index (BMI) [Ratio]34.64 kg/r3IwgcwGeovanna Miranda INSURANCE SALES SPECIALIST-CY[employer] DEFENSE FORENSICS ANALYST Work Phone: 1(826)180-[address] [place], [place] 1153007-11-2022 08:20-0400Body uhezkublvnj91.01 [degF]Geovanna Miranda INSURANCE SALES SPECIALIST-CY[employer] DEFENSE FOR[employer]ICS ANALYST Work Phone: 1(671)876-[address] [place], [place] 7569107-11-2022 08:20-0400Body weight 100.34 kgGeovanna Miranda INSURANCE SALES SPECIALIST-CYBER DEFENSE FORENSICS ANALYST Work Phone: 1(692)354-[address] [place], [place] 7569107-11-2022 08:20-0400Diastolic blood asjdnpgg92 mm[Hg]Geovanna Miranda APRN-CYBER DEFENSE FORENSICS ANALYST Work Phone: 1(234)902-[address] [place], [place] 7569107-11-2022 08:20-0400Heart rate62 /minGeovanna Miranda INSURANCE SALES SPECIALIST-CYBER DEFENSE FORENSICS ANALYST Work Phone: 1(125)107-[address] [place], [place] 7569107-11-2022 08:20-0400Respiratory rate18 /minGeovanna Miranda INSURANCE SALES SPECIALIST-CYBER DEFENSE FORENSICS ANALYST Work Phone: 1(245)345-[address] [place], [place] 7569107-11-2022 08:20-7334SlC0% (BldA) [Mass fraction]97 %Geovanna Miranda APRN-CYBER DEFENSE FORENSICS ANALYST Work Phone: 1(371)806-[address] [place], [place] 7569107-11-2022 08:20-0400Systolic blood apfptigm201 mm[Hg]Geovanna Miranda INSURANCE SALES SPECIALIST-CY[employer] DEFENSE FORENSICS ANALYST Work Phone: [facility] [employer] Ebtndv37-15-4341 11:00-0400Body height 170.2 cmCarmen Marrufo DO Work Phone: 1(592)[address]07-07-2022 11:00-0400Body mass index (BMI) [Ratio]33.8 kg/n0Kfdzuq Marrufo DO Work Phone: 1(664)[address] [place], [place] 5164607-07-2022 11:00-0400Body wfodruiglwu41.1 [degF]Jennifer Marrufo DO Work Phone: 1(864)[address] [place], [place] 5164607-07-2022 11:00-0400Body .89 kgCarmen Marrufo DO Work Phone: 1(636)[address] [place], [place] 5164607-07-2022 11:00-0400 Diastolic blood mm[Hg]Jennifer Marrufo DO Work Phone: 1(917)[address]07-07-2022 11:00-0400Heart rate54 /minCarmen Marrufo DO Work Phone: 1(267)[address] [place], [place] 5164607-07-2022 11:00-0400 Respiratory rate20 /minCarmen Marrufo DO Work Phone: 1(030)[address] [place], [place] 5164607-07-2022 11:00-9190GbS1% (BldA) [Mass fraction]97 %Jennifer Marrufo DO Work Phone: 1(202)[address]07-07-2022 11:00-0400Systolic blood lopknteg671 mm[Hg]Jennifer Marrufo DO Work Phone: 1(235)[address] [place], [place] 5164606-02-2022 11:13-0400Body yksiza422.2 Skip Howard MD Work Phone: [facility]06-02-2022 11:13-0400Body mass index (BMI) [Ratio]33.47 kg/s1RihsdhnyKaron Howard MD Work Phone: [facility]06-02-2022 11:13-0400Body ykmzzpnfsmt89.2 [degF]Karon Howard MD Work Phone: [facility]06-02-2022 11:13-0400Body owxmmo65.93 kgKaron Howard MD Work Phone: [facility]06-02-2022 11:13-0400 Diastolic blood cmngpywo76 mm[Hg]Karon Howard MD Work Phone: [address] [place], [place] 4524606-02-2022 11:13-0400Heart rate51 /Carlos Enrique Howard MD Work Phone: [address] [place], [place] 4524606-02-2022 11:13-0400 Respiratory rate16 /Carlos Enrique Howard MD Work Phone: [facility]06-02-2022 11:13-0698CaW3% (BldA) [Mass fraction]96 %Karon Howard MD Work Phone: [facility]06-02-2022 11:13-0400Systolic blood zmqebiff676 mm[Hg]Karon Howard MD Work Phone: [facility]04-28-2022 09:13-0400Body mass index (BMI) [Ratio]31.94 kg/m2Suzie Giraldo MD, PhD Work Phone: [facility]04-28-2022 09:13-0400Body dylytrwiuej13.2 [degF]Suzie Giraldo MD, PhD Work Phone: [facility]04-28-2022 09:13-0400Body lhrvxu57.49 kgSuzie Giraldo MD, PhD Work Phone: [facility]04-28-2022 09:13-0400 Diastolic blood kblkftij63 mm[Hg]Suzie Giraldo MD, PhD Work Phone: [facility]04-28-2022 09:130400Heart rate59 /minSuzie Giraldo MD, PhD Work Phone: [facility]04-28-2022 09:130Systolic blood dxqylhhu900 mm[Hg]Suzie Giraldo MD, PhD Work Phone: [facility]04-11-2022 13:110400Body gjmjuz913.2 cmTtristen Miranda INSURANCE SALES SPECIALIST-[employer] DEFENSE FOR[employer] ANALYST Work Phone: 1(720)574-[address] [place], [place] 1153004-11-2022 13:11-0400Body mass index (BMI) [Ratio]32.62 kg/j6OlgscGeovanna Miranda INSURANCE SALES SPECIALIST-[employer] DEFENSE [employer] ANALYST Work Phone: 1(774)964-[address] [place], [place] 1153004-11-2022 13:110400Body qzhefxswjan61.7 [degF]Geovanna Miranda INSURANCE SALES SPECIALIST-[employer] DEFENSE [employer] ANALYST Work Phone: 1(311)942-[address] [place], [place] 1153004-11-2022 13:11-0400Body weight 94.46 kgGeovanna Miranda INSURANCE SALES SPECIALIST-[employer] DEFENSE [employer] ANALYST Work Phone: 1(053)166-[address] [place], [place] 1153004-11-2022 13:110400Diastolic blood vzzadrdb81 mm[Hg]Geovanna Miranda INSURANCE SALES SPECIALIST-[employer] DEFENSE [employer] ANALYST Work Phone: 1(997)202-[address] [place], [place] 1153004-11-2022 13:110400Heart rate60 /minGeovanna Miranda INSURANCE SALES SPECIALIST-[employer]ENSE [employer] ANALYST Work Phone: 1(689)178-[address] [place], [place] [address]3004-11-2022 13:110400Respiratory rate18 /minTrish Nirajk INSURANCE SALES SPECIALIST-[employer] DEFENSE [employer]ICS ANALYST Work Phone: 1(168)592-[address] [place], [place] 1153004-11-2022 13:11-9189AaM5% (BldA) [Mass fraction]98 %Geovanna Miranda INSURANCE SALES SPECIALIST-[employer]ENSE [employer] ANALYST Work Phone: 1(419)492-[address] [place], [place] 1153004-11-2022 13:11-0400Systolic blood bizikpig008 mm[Hg]Geovanna Miranda INSURANCE SALES SPECIALIST-[employer]ENSE [employer] ANALYST Work Phone: [facility]03-21-2022 09:38-0400Body mass index (BMI) [Ratio]32.26 kg/u6Cvamih [place] INSURANCE SALES SPECIALIST-CYBER DEFENSE FORENSICS ANALYST Work Phone: [phone]03-21-2022 09:38-0400Body gmwoufoqvir60.7 [degF]Andrew Pringlewell INSURANCE SALES SPECIALIST-CYBER DEFENSE FORENSICS ANALYST Work Phone: [phone] [place], [place] 2990703-21-2022 09:38-0400Body ryfcud23.44 kgRachejose roberto [place] INSURANCE SALES SPECIALIST-CYBER DEFENSE FORENSICS ANALYST Work Phone: [phone] [place], [place] 2990703-21-2022 09:38-0400 Diastolic blood aksglckp78 mm[Hg]Andrew Pringlewell INSURANCE SALES SPECIALIST-CYBER DEFENSE FORENSICS ANALYST Work Phone: [phone] [place], [place] 2990703-21-2022 09:38-0400Heart rate56 /minRachel [place] INSURANCE SALES SPECIALIST-CYBER DEFENSE FORENSICS ANALYST Work Phone: [phone] [place], [place] 2990703-21-2022 09:38-0400Systolic blood wclwwbaq190 mm[Hg]Andrew Trinidad INSURANCE SALES SPECIALIST-CYBER DEFENSE FORENSICS ANALYST Work Phone: [phone]11-15-2018 15:08-0500BMI (Body Mass Index)39.63 kg/d6[facility] Work Phone: 1([phone]) 964-997111-15-2018 15:08-0500Body Extrlhyzwwx73.11 [degF][facility] Work Phone: 1([phone] 15:08-1274Agohrb366.2 [facility] Work Phone: 1([phone]) 322-767911-15-2018 15:08-8279Ytpqlp745.76 kgNov[facility] Health [facility] Work Phone: Encounters Encounter DateEncounter TypeCare ProviderFacilityStart: 33-23-6394rdppyrfunxmarjan FORDacility:[facility]: 02-25-2025 End: 10-75-2013rppkyjybpkVtmmnycoGayle Velazquez APRN Work Phone: [facility] Work Phone: Start: 02-25-2025 End: 99-74-7057Vxcuvgn encounter procedureCayla Loor INSURANCE SALES SPECIALIST [facility] Work Phone: Start: 02-25-2025 End: 02-82-6300Dqdywtg encounter statusChrissieyossi Castañedareginoacher JANICE [facility] Cent[facility]art: 27-89-5247aehgpacxatBMPIQXEI ROHRBACHER Facility:[facility]: 31-47-7245dkwtelmxsfFAJPWJVF ROHRBACHER Facility:[facility]: 05-21-2024 End: 92-25-1468Jokiuey encounter Praful Penn APRN-CYBER DEFENSE FORENSICS ANALYST Work Phone: [facility] Comment on above:Encounter for weight loss counseling (Primary Dx)Start: 05-21-2024 End: 82-32-9869Qbropy follow up visit related to original Sergo Penn INSURANCE SALES SPECIALIST-CYBER DEFENSE FORENSICS ANALYST Work Phone: [facility] Comment on above:Obesity with body mass index greater than 30 (Primary Dx); Stage 3a chronic kidney disease; S/P bypass gastrojejunostomy; History of renal transplant; Vitamin D deficiency; Iron deficiency; Medication management; High serum vitamin A; S/P laparoscopic sleeve gastrectomy; At risk for inadequate intake of multiple nutrientsStart: 17-49-3921qqtusqqfhwmarjan FORDacility:[facility]: 04-23-2024 End: 12-65-7808Xuubjmk encounter Praful Penn APRN-CYBER DEFENSE FORENSICS ANALYST Work Phone: [facility] Comment on above:Encounter for weight loss counseling (Primary Dx)Start: 04-23-2024 End: 86-85-3413Qiqcfx follow up visit related to original Sergo Penn INSURANCE SALES SPECIALIST-CYBER DEFENSE FORENSICS ANALYST Work Phone: [facility] Comment on above:S/P bypass gastrojejunostomy (Primary Dx); Class 1 obesity with serious comorbidity and body mass index (BMI) of 33.0 to 33.9 in adult, unspecified obesity type; Post-operative state; History of obstructive sleep apnea; History of morbid obesityStart: 55-87-1644pskmgvlpuwCQLWCNPE ROHRBACHER Facility:[facility]: 04-21-2024 End: 68-25-2079Xzuukk outpatient visit 40 minutesSam UNGER Work Phone: [facility] HospitalComment on above:Kidney replaced by transplant (Primary Dx); Abnormal blood chemistry; Aftercare following organ transplant; Immunosuppressed status; High risk medication use; Hydronephrosis, unspecified hydronephrosis type; HyperkalemiaStart: 21-88-1565bigiskekjhHIJLSKKN ROHRBACHERFacility:[facility]: 37-23-5119hfhcusgnsjWFODOAniceto MCCLELLANDacility:[facility] Start: 04-21-2024 End: 32-89-3264Jlbofqqolh hospital visit by Gayla Frank MD Work Phone: Imaging DoanComment on above:ArrivedStart: 04-21-2024 End: 91-38-7674Qfnpim consultation new/estab patient 60 Alhaji Frank MD Work Phone: [facility] hospitalComment on above:Urinary retention (Primary Dx)Start: 40-04-3556dlauwgefpfHTUHT A BRETHAUER Facility:[facility]: 04-09-2024 End: 95-51-5429Uqpghtt encounter procedureBina Sheets RD Work Phone: [facility] Comment on above:Encounter for weight loss counseling (Primary Dx)Start: 04-09-2024 End: 86-48-4857Qkokzs follow up visit related to original pxStmarilyn Gallegos MD Work Phone: Bariatric Surgery [facility] Comment on above:Gastroesophageal reflux disease without esophagitis (Primary Dx)Start: 52-65-6907mahzzscqqsSBPDI A BRETHAUERFacility:[facility] Start: 04-07-2024 End: 77-27-7326rnazqqrszwRkzoyytavCleveland Clinic [facility]inte [facility] Work Phone: Start: 04-07-2024 End: 24-22-4738Zrqtwlq encounter procedureUnc Health Chatham Physician GroupOhio State East Hospital Work Phone: Start: 04-06-2024 End: 66-87-3052Hfhpomsp Support EncounterCayla Gonzalez INSURANCE SALES SPECIALIST-CYBER DEFENSE FORENSICS ANALYST Work Phone: [facility] InstituteComment on above:Urinary retention (Primary Dx)Start: 56-27-4742rqinsewvluLNWHCJUG ROHRBACHER Facility:[facility]: 03-23-2024 End: 67-74-5803Emuieirvz for other preprocedural examinationSTACY Tone GALLEGOS Facility:[facility]: 03-23-2024 End: 57-62-9521Egemruihqp and management of inpatientStacy Tone Gallegos MD Work Phone: [phone] on above:Elective surgeryStart: 03-23-2024 End: 81-62-8068Mnjpsee encounter statusStmarilyn Gallegos MD Work Phone: [facility]art: 17-00-8162Cxj-patient / Non-visitUnc Health Chatham Physician GroupSt. Anne Hospital [facility] Work Phone: Start: 02-25-2024 End: 49-99-6654Bzuibe consultation new/estab patient 60 minSulma Plata INSURANCE SALES SPECIALIST-CYBER DEFENSE FORENSICS ANALYST Work Phone: [phone]-Qfcmdmvqk Evaluation and Assessment [facility] Outpatient CareComment on above:Preop exam for internal medicine (Primary Dx); Gastroesophageal reflux disease without esophagitis; History of surgery; Essential hypertension; PFO (patent foramen ovale); DEMI (obstructive sleep apnea); Allergic rhinitis, unspecified seasonality, unspecified trigger; Former smoker; History of hyperparathyroidism; -donor kidney transplant; History of radical nephrectomy; Depression, unspecified depression type; Anxiety disorder, unspecified type; Bilateral lower extremity edema; H/O gastric sleeveStart: 02-25-2024 End: 19-94-1775Pwcfiye encounter statusSulma Plata [facility] Work Phone: [facility] Work Phone: Start: 02-24-2024 End: 99-31-6505nnvndyxwfpPfigyzdwmCleveland Clinic [facility]inte [facility] Work Phone: Start: 02-24-2024 End: 19-01-2275Aibgwvx encounter procedureUnc Health Chatham Physician GroupOhio State East Hospital Work Phone: Start: 02-20-2024 End: 23-22-7789Xasbstc encounter procedureSlori Gallegos MD Work Phone: [facility] Comment on above:Encounter for weight loss counseling (Primary Dx)Start: 02-20-2024 End: 87-21-7116Hzozff outpatient visit 15 minutesGriselda Gallegos MD Work Phone: [facility] Comment on above:Gastroesophageal reflux disease without esophagitis (Primary Dx); Morbid obesityStart: 01-15-2024 End: 71-01-0910Sadupd outpatient visit 25 minutesFerjosephine Saravia MD Work Phone: [facility] HospitalComcorewell health lud[facility] hospital on above:Morbid obesity (Primary Dx); Acute right ankle pain; Gastroesophageal reflux disease without esophagitis; Benign hypertension; DEMI (obstructive sleep apnea)Start: 93-37-9802suqapdwzfsURUW [facility] Medical Centerbtart: 12-25-2023 End: 41-71-8342Blmsnt consultation new/estab patient 60 Daisy Richardson MD Work Phone: [facility] Care [place]Comment on above: Obstructive sleep apnea (adult) (pediatric) [G47.33] (Primary Dx)Start: 12-04-2023 End: 37-65-0913Biytcq outpatient visit 25 minutesRodrigo Saravia MD Work Phone: [facility] HospitalComment on above: Gastroesophageal reflux disease without esophagitis (Primary Dx); Seborrheic dermatitis; Tinea pedis, unspecified laterality; Morbid obesity; Right ear impacted cerumenStart: 53-07-5040slduskwwhdKHHE SELFAvita Galion HospitalStart: 43-35-6769kvppbpdugsHTKKSQRSelect Medical Specialty [facility] Start: 45-92-3537zubcfxrlatJDKYUNFBrown Memorial Hospitaltart: 11-15-2023 End: 98-31-4590Zfqvgxl encounter procedureLas Palmas Medical Center Outpatient CareComment on above:S/P laparoscopic sleeve gastrectomy; History of obstructive sleep apneaObstructive sleep apnea (adult) (pediatric) [G47.33] (Primary Dx); S/P laparoscopic sleeve gastrectomy; History of obstructive sleep apneaStart: 11-08-2023 End: 84-21-5882Qeuzbrdrpqcxe procedureBanner CareStart: 09-30-2023 End: 23-72-2396Hxqait outpatient visit 40 minutesLiza Penn INSURANCE SALES SPECIALIST-CYBER DEFENSE FORENSICS ANALYST Work Phone: Bariatric Surgery [facility] Comment on above:Gastroesophageal reflux disease, unspecified whether esophagitis present (Primary Dx); Class 2 severe obesity with serious comorbidity and body mass index (BMI) of 35.0 to 35.9 in adult,unspecified obesity type; Obstructive sleep apnea (adult) (pediatric); Vitamin D deficiency; Iron deficiency; Medication management; S/P laparoscopic sleeve gastrectomy; At risk for inadequate intake of multiple nutrients; Pre-op testing; History of obstructive sleep apneaStart: 09-30-2023 End: 48-56-4453Ecnmyje encounter statusLiza Penn APRN-CYBER DEFENSE FORENSICS ANALYST Work Phone: [facility] Centertart: 2023 End: 95-09-4272Udkuxukuzd hospital visit by Emma Sparks MD Work Phone: [facility] EndoscopyStart: 05-28-2023 End: 43-39-5711Adqeqe outpatient visit 15 minutesCatstan Davis MD Work Phone: [facility]atology Outpatient Care CarlsbadComcorewell health ludington hospital on above:Lentigines (Primary Dx); Skin cancer screening; Actinic skin damage; SK (seborrheic keratosis); [place] angioma; Melanocytic nevus of lower extremity including hip, unspecified laterality; Melanocytic nevi of trunk; Melanocytic nevus of upper extremity, unspecified laterality; Neoplasm of uncertain behavior of skinStart: 35-83-3722kndbgffycfIDEXB TRUBACHICorina [facility] HospitalStart: 66-08-4236tdwjpfdqorWDUIYLima Memorial Hospitaltart: 04-19-2023 End: 72-59-0566Bwabbrkpil hospital visit by Alondra Diego DPM Work Phone: [facility] Radiology Roy OrthoComcorewell health ludington hospital on above: ArrivedStart: 04-19-2023 End: 16-94-5577Dfolfk outpatient visit 25 Grayson Diego DPM Work Phone: aviSaint [facility] University Hospital PodiatryComment on above:Right foot pain (Primary Dx); Sprain of right ankle, unspecified ligament, initial encounterStart: 04-19-2023 ambulatoryNORTHERN STATE HOSPITALCrescencio Roy HospitalStart: 04-16-2023 End: 37-40-4252Vmojep outpatient visit 25 minutesGeovanna Miranda INSURANCE SALES SPECIALIST-CYBER DEFENSE FORENSICS ANALYST Work Phone: [facility] HospitalComcorewell health lud[facility] hospital on above:Acute right ankle pain (Primary Dx); Sprain of right medial ankle joint, initial encounterStart: 30-65-2572geqqrhblfvSouth Georgia Medical Center Lanier HospitalStart: 03-10-2023 End: 86-37-9368Chlzwmzcn department patient visitIlia Shaffer MD Work Phone: [facility] MedicineStart: 12-10-2022 End: 62-02-7242Largtw outpatient visit 25 Cameron Penn INSURANCE SALES SPECIALIST-CYBER DEFENSE FORENSICS ANALYST Work Phone: [facility] Comment on above:Class 2 severe obesity with serious comorbidity and body mass index (BMI) of 36.0 to 36.9 in adult,unspecified obesity type (Primary Dx); Gastroesophageal reflux disease without esophagitis; S/P laparoscopic sleeve gastrectomyStart: 10-29-2022 End: 18-26-7234Omafik outpatient visit 25 apolinarEduardmariajose Wayne Ruben INSURANCE SALES SPECIALIST-CYBER DEFENSE FORENSICS ANALYST Work Phone: [facility]cp [facility] Children - GreenvilleComment on above:Dog bite, initial encounter (Primary Dx); Encounter for post surgical wound checkStart: 10-26-2022 End: 75-24-9539dxojcaecwuVISLCRawson-Neal Hospital Urgent CareStart: 10-26-2022 End: 03-12-7552Tlrfjh outpatient visit 15 minutesMary Moreira PA-C Work Phone: [facility] BucyrusComment on above:Dog bite of right hand with infection, initial encounter (Primary Dx)Start: 10-24-2022 End: 08-38-2944Bjjtjdnmx department patient visitMaico Hernadez MD Work Phone: [facility] MedicineStart: 09-02-2022 End: 35-65-2442luuezdltyqBHPCMI ILIA VILCHISInkeara [facility] Urgent CareStart: 09-02-2022 End: 06-76-6854Sgiqef outpatient visit 15 minutesDaelizabeth Vilchis CYBER DEFENSE FORENSICS ANALYST Work Phone: [facility] BucyrusComment on above: Sinusitis, unspecified chronicity, unspecified location (Primary Dx); Acute conjunctivitis of both eyes, unspecified acute conjunctivitis typeStart: 08-30-2022 End: 69-23-0682brbiircpmsHSNHXYBeaumont Hospital Urgent CareStart: 08-30-2022 End: 17-06-8271Vuwtbx outpatient visit 15 minutesDaniel Ilia Vilchis CYBER DEFENSE FORENSICS ANALYST Work Phone: [facility] BucyrusComment on above:Viral URI (Primary Dx)Start: 04-21-2022 End: 02-55-6077Dtokhgbtm department patient visitRaheem Archuleta MD Work Phone: [facility] Hospitaldb [facility] MedicineStart: 04-20-2022 End: 78-61-5650fckamcrrmiQFUURLZFirstHealth Urgent CareStart: 03-02-2022 End: 90-83-6811Slbunc outpatient visit 25 minutesTrish A TrIntegrity Directional Services INSURANCE SALES SPECIALIST-CYBER DEFENSE FORENSICS ANALYST Work Phone: [employer] [facility] Medical CenterComment on above:Low testosterone in male (Primary Dx); Acute bacterial conjunctivitis of right eyeStart: 01-08-2022 End: 78-77-1860Jbxjbw outpatient visit 15 minutesTrish A [employer] INSURANCE SALES SPECIALIST-[employer] Work Phone: [employer] [facility] CenterComcorewell health lud[facility] hospital on above: Erectile dysfunction, unspecified erectile dysfunction type (Primary Dx); Gastroesophageal reflux disease without esophagitis; Environmental and seasonal allergiesStart: 01-04-2022 End: 35-92-4896Qhjaxb consultation new/estab patient 60 minCarmen Stanley Marrufo DO Work Phone: [phone]-Shhynmeuj Evaluation and Assessment [facility] Outpatient CareComment on above:Preop exam for internal medicine (Primary Dx); Polycystic kidney disease; -donor 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/25/2016; Immunosuppression; S/P laparoscopic sleeve gastrectomy; BPH with obstruction/lower urinary tract symptomsStart: 01-04-2022 End: 43-34-5866Ndkpqjl encounter statusCarmen R Marrufo DO Work Phone: [phone]-Xiqivwzkr Evaluation and Assessment [facility] Outpatient CareStart: 11-30-2021 End: 16-17-6630Yelgxb outpatient new 45 Lo Howard MD Work Phone: [facility] HospitalComment on above:Polycystic kidney disease (Primary Dx)Start: 10-26-2021 End: 93-17-0839Ibksay outpatient new 45 minutesSuzie Giraldo MD, PhD Work Phone: [facility]plant [facility] SystemComment on above:Kidney replaced by transplant (Primary Dx); Long-term use of immunosuppressant medication; Aftercare following organ transplant; Abnormal blood chemistry; Immunosuppressed status; High risk medication use; Other general symptoms and signsStart: 10-12-2021 End: 71-45-2856Jnbpydihnj hospital visit by physicianGeovanna Miranda APRN-CYBER DEFENSE FORENSICS ANALYST Work Phone: [facility] Diagnostic RadiologyComment on above: ArrivedStart: 10-09-2021 End: 40-88-5135Iqgljd outpatient visit 25 minutesTrmariajose Miranda APRN-CYBER DEFENSE FORENSICS ANALYST Work Phone: [facility] HospitalComment on above: Polycystic kidney disease (Primary Dx); Acute bilateral low back pain without sciatica; Erectile dysfunction, unspecified erectile dysfunction type; -donor 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/25/2016; Lack of sexual desireStart: 09-18-2021 End: 93-14-2019Lppepu outpatient visit 15 minutesRaranjeet Trinidad INSURANCE SALES SPECIALIST-CYBER DEFENSE FORENSICS ANALYST Work Phone: ComR[facility] ([facility] ExpressComment on above:Kidney replaced by transplant (Primary Dx); Abnormal blood chemistry; Immunosuppressed status; Aftercare following organ transplant; High risk medication useStart: 04-02-2019 End: 37-46-0344Imokkiv encounter statusRachel [place] INSURANCE SALES SPECIALIST-CYBER DEFENSE FORENSICS ANALYST Work Phone: [facility] Centertart: 04-02-2019 End: 44-84-3859Ohgfmcqpaghsk examination doneRachel Amos INSURANCE SALES SPECIALIST-CYBER DEFENSE FORENSICS ANALYST Work Phone: [facility] Centertart: 08-06-2018 End: 09-62-4507Seqyyyp encounter procedureTrmariajose Weisscility:[facility] Hospitaltart: 17-79-1613Xtihvld encounter procedureSCOMADDY IRELAND [facility] HospitalStart: 05-27-2018 End: 56-17-1659Felurev encounter procedureSjesus Ireland Work Phone: Rosy Whitmoreyrus MRIComment on above:ArrivedStart: 05-20-2018 End: 67-96-6957Ggfldlp encounterAmy [facility] LouisStart: 53-43-8573Umzatag encounter procedureSCOMADDY IRELANDLyons Va Medical Center HospitalStart: 05-15-2018 End: 19-38-3017Lxewbw outpatient visit 25 Brigida Ireland Work Phone: [facility] OrthopedicsComment on above: Osteoarthritis of right knee, unspecified osteoarthritis type (Primary Dx); Chronic pain of right kneeStart: 05-15-2018 End: 58-02-4573Sruohac encounter procedureSjesus Ireland Work Phone: [facility] Hospitaldayan [facility] RadiologyStart: 45-74-8581Ybmjarm encounter procedureJORDLINDA [facility] HospitalStart: 77-61-0471Nodymje encounter procedureKYFAMILIA Cid [facility] HospitalStart: 94-56-1833Wdmljie encounter procedureKYFAMILIA Cdi [facility] Centertart: 01-28-2017 End: 84-47-2739RuevcgkvyaOQYHNSZFTrinity Health Grand Rapids Hospitaltart: 01-21-2017 End: 11-64-9356EhfnhcwbxaLZPTUHDEAscension Macomb-Oakland Hospitaltart: 01-14-2017 End: 23-36-3209AfvkayiffcIVVYZJVN UNKNOWNLewis County General Hospitalion [facility] - Buffalotart: 01-07-2017 End: 04-30-8304KjgwncguzkUMYVUIFT UNKNOWNDayton Children's Hospitaltart: 12-31-2016 End: 81-41-5049HqhcyhbazeHXVYUMXW [facility] Procedures DateProcedureProcedure DetailPerforming ClinicianStart: 07-92-0716Dutsat-up visitFollow-upLIZA PENNStart: 04-23-2024H/O: 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S/P bypass gastrojejunostomyLiza Penn INSURANCE SALES SPECIALIST-CYBER DEFENSE FORENSICS ANALYST Work Phone: Start: 97-50-8006Rkwlzrqxvp bloodPriyawing Abhishek PLASCENCIA Work Phone: Start: 84-30-5785Yp trnsplnt kidney real time w/image Mandeep Frank MD Work Phone: Start: 27-86-1511Kpbaz dip stick/tablet rgnt auto w/o microscopyIsabell Frank MD Work Phone: Start: 41-26-6298Kfgkq of magnesiumJamel Uriarte MD Work Phone: Start: 23-21-0267Pjmd screen quantitative tacrolimus Lauren Roman [facility] Work Phone: Start: 92-80-0802Obvtv of magnesiumJamel Uriarte MD Work Phone: Start: 06-88-6716Tntd screen quantitative tacrolimus Jamel Uriarte MD Work Phone: Start: 06-21-1850RIXNLILKWH CARDIAC MONITORING STRIP Other OtherStart: 66-08-8444Fgcnx count complete Shayla Uriarte MD Work Phone: Start: 43-51-8777BIWFGUFNTX CARDIAC MONITORING STRIP Other OtherStart: 09-64-6398Coftm of Primo Uriarte MD Work Phone: Start: 53-32-1984Lgfi screen quantitative tacrolimus Jyotsna Bahena MD Work Phone: Start: 57-59-8481Iazrl count complete automatedJesus Mckenzie MD Work Phone: start: 36-06-1323DYO AND ELECTRONIC DIFFStacy Tone Gallegos MD Work Phone: Start: 82-67-4502Zxlzttra blood count with white cell differential, automatedStmarilyn Gallegos MD Work Phone: Start: 41-97-6694Gy trnsplnt kidney real time w/image Modesto Uriarte MD Work Phone: start: 93-24-3668Bdfev of Elizabeth Gallegos MD Work Phone: Start: 44-03-1213PWRWIJHDHW CARDIAC MONITORING STRIP Other OtherStart: 03-25-2024 End: 06-12-3962Btvtjqou Radha Gallegos MD Work Phone: Comment on above:Performed By: #### HEMOGC #### [facility] ([facility]) [address] [place] [address]Hscje: 59-41-9321Hxauw of Primo Uriarte MD Work Phone: Start: 84-62-7246Vlun screen quantitative tacrolimus Griselda Gallegos MD Work Phone: Start: 82-51-5790RCHUDAZ TO TRANSFUSE RED BLOOD CELLS Jesus Mckenzie MD Work Phone: start: 80-22-9525URJCXMNXET CARDIAC MONITORING STRIP Other OtherStart: 95-92-9220Dtzqx of Primo Uriarte MD Work Phone: Start: 07-25-5036Djop screen quantitative tacrolimus Jyotsna Bahena MD Work Phone: Start: 26-97-6410Iwaw screen quantitative tacrolimus Jyotsna Bahena MD Work Phone: Start: 07-51-9218Drbstmxjb serum plasma/whole blood Hayley Alcantar MD Work Phone: Start: 05-21-4550XUHYUUVJUL CARDIAC MONITORING STRIP Other OtherStart: 79-53-9268Ie trnsplnt kidney real time w/image Modesto Uriarte MD Work Phone: Start: 40-05-5483Bzlnfddzp serum plasma/whole blood Hayley Alcantar MD Work Phone: Start: 48-54-8826Atrgd of Yesenia Bahena MD Work Phone: Start: 91-79-2781TLOGFOLIOS CARDIAC MONITORING STRIP Other OtherStart: 00-39-8099FADWOXAOJH CARDIAC MONITORING STRIPOther OtherStart: 00-06-1079UNMOQCB RHYTHMOther OtherStart: 03-23-2024 End: 67-50-2539Pwiwnparozpqtvcjbdphjvwdnv transoral diagnosticStarodger Gallegos MD Work Phone: Start: 03-23-2024 End: 45-91-7896Lrgmxgba laparoscopic procedure stomachStmarilyn Gallegos MD Work Phone: Start: 35-21-0842Yozok metabolic panel calcium total Griseldarodger Gallegos MD Work Phone: Start: 07-34-3308Hbhlnkt measurement, bloodGriselda Gallegos MD Work Phone: Start: 77-73-5994Fnfoaeaf screenOlivia Sherlyn INSURANCE SALES SPECIALIST-CYBER DEFENSE FORENSICS ANALYST Work Phone: Start: 03-77-6762Tkocz typing serologic aboOlivia L Sherlyn INSURANCE SALES SPECIALIST-CYBER DEFENSE FORENSICS ANALYST Work Phone: Start: 13-40-9680KDN AND ELECTRONIC DIFFOlivia L Sherlyn INSURANCE SALES SPECIALIST-CYBER DEFENSE FORENSICS ANALYST Work Phone: Start: 80-24-5340Goifjxtj blood count with white cell differential, automatedOlivia L Sherlyn INSURANCE SALES SPECIALIST-CYBER DEFENSE FORENSICS ANALYST Work Phone: Start: 65-88-7710Twkryicibxqmc metabolic panelOlivia L Sherlyn INSURANCE SALES SPECIALIST-CYBER DEFENSE FORENSICS ANALYST Work Phone: Start: 17-75-7648Yzkgpjr impacted cerumen instrumentation unilatFereshoralia Saravia MD Work Phone: Start: 13-31-5959CGFXZPRJTFEDUQ UPPER ENDOSCOPYKirsten Tomas Penn INSURANCE SALES SPECIALIST-CYBER DEFENSE FORENSICS ANALYST Work Phone: Start: 03-10-2023 End: 76-10-2103Agbmw ankle complete minimum 3 viewsIlia Shaffer MD Work Phone: Start: 16-35-2237Rbzps 1996 panel - Serum or Plasma Maico Hernadez MD Work Phone: Start: 54-75-8976Btuyojmb screenCarmen Marrufo DO Work Phone: Start: 37-66-9481Rwrxd typing serologic aboCarmen R Marrufo DO Work Phone: Start: 73-18-9556PHA screeningMicaleks Mccracken MD, PhD Work Phone: Start: 07-83-7287Ghtuu spine lumbosacral minimum 4 viewsTrish A Trubachik INSURANCE SALES SPECIALIST-CYBER DEFENSE FORENSICS ANALYST Work Phone: Start: 99-27-2891Aj retroperitoneal real time w/image completeTrish A Trubachik INSURANCE SALES SPECIALIST-CYBER DEFENSE FORENSICS ANALYST Work Phone: Start: 18-01-8901Ogbpx dip stick/tablet rgnt auto w/o microscopyTrish A Trubachik INSURANCE SALES SPECIALIST-CYBER DEFENSE FORENSICS ANALYST Work Phone: Start: 61-73-5879Sglaj 1996 panel - Serum or Plasma Geovanna Chapaubachik INSURANCE SALES SPECIALIST-CYBER DEFENSE FORENSICS ANALYST Work Phone: Start: 12-03-5639Rpllg 1996 panel - Serum or Plasma Andrew Trinidad INSURANCE SALES SPECIALIST-CYBER DEFENSE FORENSICS ANALYST Work Phone: Start: 79-29-2175Fvuizgx of renal transplantHistory of renal transplantRachel Amos INSURANCE SALES SPECIALIST-CYBER DEFENSE FORENSICS ANALYST Work Phone: Start: 83-81-4702Sjauid-up visitFollow-[facility] MuskogeeMADDY IRELAND Start: 05-27-2018 End: 51-40-1540BHT, PLATELETS PANEL, MANUAL ENTEROther OtherStart: 05-27-2018 End: 43-36-8701PQ,K,CL,CO2,BUN,CREA,GLUC, MANUAL ENTEROther OtherStart: 05-27-2018 End: 69-41-7489CIH of [facility] Centerjesus Ireland Work Phone: Start: 86-46-0011Hzhsp 1996 panel - Serum or Plasma Ari IreladnStart: 05-89-9498Wposysz of renal transplantDeceased-donor 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/25/2016Rachel Amos INSURANCE SALES SPECIALIST-CYBER DEFENSE FORENSICS ANALYST Work Phone: H/O: 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S/P bypass gastrojejunostomy Liza Penn INSURANCE SALES SPECIALIST-CYBER DEFENSE FORENSICS ANALYST Work Phone: H/O: surgeryHistory of surgerySulma Plata INSURANCE SALES SPECIALIST-CYBER DEFENSE FORENSICS ANALYST Work Phone: History of renal transplantKidney replaced by transplantRachel R Amos INSURANCE SALES SPECIALIST-CYBER DEFENSE FORENSICS ANALYST Work Phone: History of renal transplantDeceased-donor 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/25/2016Trmariajose Miranda INSURANCE SALES SPECIALIST-CYBER DEFENSE FORENSICS ANALYST Work Phone: History of renal transplantDeceased-donor 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/25/2016Trish Tone Miranda INSURANCE SALES SPECIALIST-CYBER DEFENSE FORENSICS ANALYST Work Phone: History of renal transplantKidney replaced by Brandy Giraldo MD, PhD Work Phone: History of renal transplantDeceased-donor 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/25/2016Jennifer Marrufo DO Work Phone: History of renal transplantHistory of kidney transplantHistory of renal transplantDeceased-donor kidney transplantOlivia Jose Roberto Plata INSURANCE SALES SPECIALIST-CYBER DEFENSE FORENSICS ANALYST Work Phone: History of renal transplantKidney replaced by transplantSam UNGER Work Phone: History of renal transplantHistory of renal transplant Liza Penn INSURANCE SALES SPECIALIST-CYBER DEFENSE FORENSICS ANALYST Work Phone: History of renal transplantHistory of kidney transplantJeulises Velazquez INSURANCE SALES SPECIALIST CYBER DEFENSE FORENSICS ANALYST Plan of Treatment DateCare ActivityDetailAuthorStart: 90-43-1163HGPLEDBZKCGK VACCINE SERIES (4 of 4 - PPSV23 or PCV20)PNEUMOCOCCAL VACCINE SERIES (4 of 4 - PPSV23 or PCV20)[facility] Centertart: 43-32-5252Ufgcp panelLIPID SCREENINGSelect Medical [facility], Avontart: 21-41-4212Nvbcioe lipid profileLIPID SCREENINGCleveland Clinic Start: 88-34-9419Ikcoi panelLIPID SCREENINGSelect Medical [facility], Avontart: 07-10-2026 PNEUMOCOCCAL VACCINE SERIES (3 - PPSV23 if available, else PCV20)PNEUMOCOCCAL VACCINE SERIES (3 - PPSV23 if available, else PCV20)[facility]art: 70-10-5094PHPWVMAEKUFA VACCINE SERIES (3 - PPSV23 or PCV20)PNEUMOCOCCAL VACCINE SERIES (3 - PPSV23 or PCV20)[facility]art: 62-93-9472KXBUPDTAJIXO VACCINE SERIES (3 of 3 - PPSV23 or PCV20)PNEUMOCOCCAL VACCINE SERIES (3 of 3 - PPSV23 or PCV20)OSPrem[facility] Health [facility]rium Medical Centertart: 87-20-9814IIRVIVMWXLBB VACCINE SERIES (3 of 4 - PPSV23)PNEUMOCOCCAL VACCINE SERIES (3 of 4 - PPSV23)[facility]: 16-80-3843Gwemnpdahyqg Vaccine: Ped or At-Risk (3 - PPSV23 if available, else PCV20)Pneumococcal Vaccine: Ped or At-Risk (3 - PPSV23 if available, else PCV20)[facility] HospitalStart: 32-03-2223Tsnknwe lipid profileLIPID SCREENINGOSPremier Health Atrium Medical Centertart: 23-19-3036Yzcndti vaccinationOSPremier Health Atrium Medical Centertart: 10-29-2024 End: 00-67-1405Ihqqejw encounter uxalgndos45/01/2025 9:45 AM EDT Office Visit [facility] Transplant [place] [facility] Spine [facility] [address]th [place] [address] Kadeem Franco MBBS [address] 1st [place] [address] [facility] Transplant [facility]: 09-09-2024 End: 14-53-1071Lbpqmnujnbpc consultation with bctssmm0309/09/2024 9:00 AM EDT Telemedicine Bariatric Surgery [facility] [address] [facility] [address] [place] [address] Liza Penn, INSURANCE SALES SPECIALIST-CYBER DEFENSE FORENSICS ANALYST [address] [place] [address] Bariatric [facility] Start: 07-22-2024 End: 01-53-7692Mervvokyxkdh consultation with wrqbfig2707/22/2024 11:00 AM EST Telemedicine Bariatric Surgery [facility] [address] [place] [address] [place] [address] Bariatric Surgery [facility] CareStart: 06-19-2024 End: 94-56-4417Nohniqt encounter maldlyqkq17/20/2024 8:00 AM EST Office Visit Sleep Medicine Outpatient Care [address] [address] Eloy Smith, INSURANCE SALES SPECIALIST-CYBER DEFENSE FORENSICS ANALYST [address] [place] [address] [facility] [place]Start: 06-02-2024 End: 80-61-5950Wgdaalr encounter swdliaqfw33/03/2024 1:30 PM EST Office Visit [facility] [place] [address] [place], [place] [address] Aliza Davis MD [address] [place] [address] [facility] [place]: 06-01-2024 End: 37-45-8759Tyluktu encounter ykgjardrg81/02/2024 3:15 PM EST Office Visit Urology Outpatient Care [address] [place] [address] Isabell Frank MD [address] [place], [place] [id number] [facility]: 05-26-2024 End: 58-01-8935Nhucnka encounter /26/2024 11:15 AM EST Office Visit [facility] [place] [address] [place], [place] [phone] Aliza Davis MD [address] [place], [place] [address] [facility] [place] Start: 05-21-2024 End: 72-41-3303Qgsakog encounter wnkhkmovd21/21/2024 10:00 AM EST Office Visit Bariatric Surgery [facility] [address] [place] [address] Liza Penn, INSURANCE SALES SPECIALIST-CYBER DEFENSE FORENSICS ANALYST [address] [place] [address] [facility] CareStart: 04-23-2024 End: 27-12-4325Jmkepfv encounter /24/2024 10:00 AM EDT Office Visit Bariatric Surgery [facility] [address] [place] [address] Liza Penn, INSURANCE SALES SPECIALIST-CYBER DEFENSE FORENSICS ANALYST [address] [place] [address] [facility] CareStart: 04-21-2024 End: 04-20-2472Nmvztdi encounter bzkmroyxi19/22/2024 3:00 PM EDT Office Visit [facility] Transplant [place] [facility] [address] 11[address] [place] [address] Sam Weiss MBBS [address] [place] [address] [facility] Transplant [place] [facility]: 04-21-2024 End: 71-68-5651NYEDMOZLXN RECIPIENT (POST TX PRA)[facility] Comment on above:Expected: 04/21/2024, Expires: 04/21/2025Start: 04-21-2024 End: 52-25-5041GF VIRUS DNA QN, PCR, PLASMAOSMercy Health Springfield Regional Medical CenterComment on above:Expected: 04/21/2024, Expires: 04/21/2025Start: 04-21-2024 End: 19-44-5085RTB BY PCR, QUANTITATIVE, BLOODOSMercy Health Springfield Regional Medical CenterComment on above:Expected: 04/21/2024, Expires: 04/21/2025Start: 61-02-8479Kouqeiec specific antigen measurementPROSTATE CANCER SCREENING DISCUSSIONSelect Medical [facility], Avontart: 60-00-9285Mlmeonuuh for malignant neoplasm of colonCOLORECTAL CANCER SCREENING DISCUSSIONSelect Medical [facility], Avontart: 04-16-2024 End: 81-41-0665Zjpiigq encounter /17/2024 9:00 AM EDT Office Visit [facility] [address] [place] [address] Rodrigo Saravia MD [address] [place] [address] [facility]Start: 04-09-2024 End: 62-17-0378Miyswmm encounter procedureBariatric Surgery [facility] CareStart: 03-27-2024 End: 75-80-2076QPTB 7 (LYTES,BUN,CREA,GLUC)CHEM 7 (LYTES,BUN,CREA,GLUC) Lab Routine Hydronephrosis, unspecified hydronephrosis type Hyperkalemia Expected: 03/27/2024, Expires: 03/27/2025[facility] HospitalComment on above: Expected: 03/27/2024, Expires: 03/27/2025Start: 03-23-2024 End: 28-40-0992Wzsrsvinorpgnxxgbqhnzezorp transoral diagnosticEGD DIAGNOSTIC Gastroesophageal reflux disease without esophagitis Morbid obesity 03/23/2024 10:20 AM EDTOSU SAME DAY SURGERY MAIN ORStart: 03-23-2024 End: 74-60-5877Frjmopjulq and management of inpatientBASUComment on above: Gastroesophageal reflux disease without esophagitisCONVERSION SLEEVE TO MAY-EN-Y GASTRIC BYPASS LAPAROSCOPICStart: 03-23-2024 End: 72-95-7041Fmseqzas laparoscopic procedure stomachCONVERSION SLEEVE TO MAY-EN-Y GASTRIC BYPASS LAPAROSCOPIC Gastroesophageal reflux disease without e sophagitis Morbid obesity 03/23/2024 10:20 AM EDTOCINC[facility]NAT[facility] MAIN OR Start: 03-09-2024 End: 94-88-4979lmettgwfje58/09/2024 11:30 AM EDT Pre-Operative Nurse Assessment Telehealth Pre Procedure Preparation [address] [place] [address] Trisha Bass RNTelekindred healthcare Pre Procedure PreparationStart: 21-39-8434MTVYB-19 VACCINE ()COVID-19 VACCINE ()U [facility] Centertart: 88-71-9143Phgzfohft vaccinationINFLUENZA VACCINE (#1)[facility] SystemStart: 02-26-2024 End: 50-98-9931KDOV 6 (LYTES, BUN CREA)CHEM 6 (LYTES, BUN CREA) Lab Routine Preop exam for internal medicine Expected: 02/26/2024, Expires: 04/26/2024[facility] HospitalComment on above:Expected: 02/26/2024, Expires: 04/26/2024 Start: 02-26-2024 End: 41-71-6200AVRYPLETMN REFLEX TO CULTUREURINALYSIS REFLEX TO CULTURE Fluids Routine Preop exam for internal medicine Expected: 02/26/2024, Expires: 04/26/2024[facility] HospitalComment on above:Expected: 02/26/2024, Expires: 04/26/2024Start: 02-25-2024 End: 10-28-5255Vbcdvsr encounter bmyhffwoy29/27/2024 10:30 AM EDT Pre-Operative Assessment Pre-Procedure Evaluation and Assessment [facility] [address] [place] [phone] Sulma Plata, INSURANCE SALES SPECIALIST-CYBER DEFENSE FORENSICS ANALYST [address] [facility] [address] [place] [phone] Pre-Procedure Evaluation and Assessment [facility] CareStart: 02-07-2024 End: 55-18-0305Pkbygoaaahmd consultation with qqbkecn3202/07/2024 9:00 AM EDT Telemedicine Sleep Medicine Outpatient Care [address] [address] Eloy Smith, INSURANCE SALES SPECIALIST-CYBER DEFENSE FORENSICS ANALYST [address] [place] [address] [facility] [place]: 01-15-2024 End: 67-19-9009CO Ankle - right 3 ViewsXR ANKLE RIGHT 3+ VIEWS Imaging Routine Acute right ankle pain Expected: 01/15/2024, Expires: 01/14/2025[facility] SystemComment on above:Expected: 01/15/2024, Expires: 01/14/2025Start: 01-15-2024 End: 97-56-2186Lhphxdl encounter iwooasxun80/17/2024 11:00 AM EDT Office Visit [facility] [address] [place] [address] Rodrigo Saravia MD [address] [place] [address] [facility]Start: 01-08-2024 End: 19-09-4111Cuolqat encounter zgardanxg17/10/2024 11:00 AM EDT Office Visit [facility] Outpatient Care [address] [address] Cait Richardson MD [address] [place] [address] [facility] [place] Start: 12-31-2023 End: 08-34-0917Alyurykzyfth consultation with pwdrvnx4712/31/2023 1:30 PM EDT Telemedicine Bariatric Surgery [facility] [address] [place] [phone] Liza Penn, INSURANCE SALES SPECIALIST-CYBER DEFENSE FORENSICS ANALYST [address] [place] [address] Bariatric Surgery [facility] Start: 12-04-2023 End: 83-50-6226Kldcxaa encounter /05/2024 11:00 AM EDT Office Visit [facility] [address] [place] [address] Rodrigo Saravia MD [address] [place] [address] [facility] HospitalStart: 10-01-2023 End: 05-51-0599Spgpzzqht pulse oximetryPR PLACE HOME SLEEP STUDY [place] - OFFICE PERFORMED Routine S/P laparoscopic sleeve gastrectomy Historyof obstructive sleep apnea Expected: 10/01/2023, Expires: 09/29/2024[facility] Comment on above:Expected: 10/01/2023, Expires: 09/29/2024Start: 09-30-2023 End: 27-96-3335NEURMQYN AND METABOLITES,SERUMMarietta Memorial HospitalComment on above:Expected: 09/30/2023, Expires: 09/29/2024Start: 09-30-2023 End: 32-55-5645EIFQDUS AOSU [facility] HospitalComment on above:Expected: 09/30/2023, Expires: 09/30/2024Start: 09-30-2023 End: 41-00-7564XQKTLDO B1Marietta Memorial HospitalComment on above:Expected: 09/30/2023, Expires: 09/30/2024Start: 74-75-0096RVCJX-19 VACCINE ()COVID-19 VACCINE ()[facility]tart: 14-90-8323YWYCG-19 VACCINE ( season)COVID-19 VACCINE ( season)[facility] ClinicComment on above:Postponed from 03/01/2023 (patient preference)Start: 34-70-8225Vqtodp vaccine hzv live for subcutaneous useZOSTER (SHINGLES) VACCINE (1 of 2)[facility] ClinicComment on above:Postponed from 1986 (patient preference)Start: 2023 End: 46-56-4206Imxuwxg encounter mdtrpofjz55/05/2023 9:30 AM EST Appointment [facility] Endoscopy [address] [facility] 2nd [place] [address] Schuyler Sparks MD [address] [place] [address] [facility]oscopyStart: 05-28-2023 End: 63-59-2297Gxlpjej encounter waznvkjdp77/28/2023 11:00 AM EST Office Visit [facility] [place] [address] [place] [address] Aliza Davis MD [address] [place], [place] [phone] [facility] [place] Start: 05-10-2023 End: 37-02-5630lvkeewynhu40/10/2023 9:20 AM EST Rehab Services [facility] [place] [address] Javan Diego DPM [address] [place] [address] Landen Vallejo PTAA[facility]ita [facility] [place]cyrusStart: 05-08-2023 End: 64-99-6942uvkmzakuor96/08/2023 9:20 AM EST Rehab Services Visit [facility] [place] [phone] Javan Diego, DPM [address] [facility] [place] [address] Landen Vallejo PTAAvidayan Therapy and Sport Medicine [place]rusStart: 05-06-2023 End: 21-55-4589ndyccjiwtn28/06/2023 9:20 AM EST Rehab Services Visit [facility] [place] [phone] Javan Diego, DPM [address] [facility] [place] [address] Landen Vallejo PTAAvidayan Therapy [facility] Sport Medicine [place]usStart: 05-03-2023 End: 80-55-3137Cnmejdc encounter qbxaqqrhe04/03/2023 1:00 PM EDT Appointment [facility] [address] [facility] 2nd [place] [address] Nahomy Santos MD [address] [facility] [address] [place] [address] [facility]oscopyStart: 04-19-2023 End: 45-33-1129Pgymnpa encounter slqrvpivp62/20/2023 10:30 AM EDT Office Visit [facility] [address] [place] [address] Javan Diego, DPM [address] [place] [address] [facility] PodiatryStart: 34-64-3674Wqhqhyz lipid profileLIPID SCREENING [facility] Work Phone: Start: 03-26-2023 End: 18-27-8206Aahjryhhtjsa consultation with eitclwv4703/26/2023 3:00 PM EDT Telemedicine Bariatric Surgery [facility] [address] [place] [address] Liza Penn INSURANCE SALES SPECIALIST-CYBER DEFENSE FORENSICS ANALYST [address] [facility] [address] [place] [address] Bariatric Surgery [facility] Start: 49-45-3271KcsirnonzHancock County Hospitaltart: 01-07-2023 End: 44-21-4473Naxflusfzoaq consultation with ttqzsmx3301/07/2023 12:30 PM EDT Telemedicine Bariatric Surgery [facility] [address] [facility] [address] [place] [address] Liza Penn, INSURANCE SALES SPECIALIST-CYBER DEFENSE FORENSICS ANALYST [address] [place] [address] [place] [address] Bariatric Surgery [facility] Start: 44-70-1584Jimayxvz specific antigen measurementPROSTATE CANCER SCREENING DISCUSSIONOSPremier Health Atrium Medical Centertart: 11-30-2022 End: 64-57-9032Rksxksv encounter oewltmpkr68/02/2023 Office Visit Dermatology Aliza Davis MD [address] [place] [address] Dermatology Outpatient Care [facility]: 11-06-2022 End: 47-19-2125Vobegir encounter lrlsidpjf32/09/2023 Office Visit Transplant Surgery Payal Mahoney, INSURANCE SALES SPECIALIST-CYBER DEFENSE FORENSICS ANALYST [address]th [place] [address] [facility]: 11-05-2022 End: 20-39-6418Pmbgmsyrnybx consultation with zhktwqx9911/05/2022 Telemedicine General Surgery Liza Penn, INSURANCE SALES SPECIALIST-CYBER DEFENSE FORENSICS ANALYST [address] [facility] [address] [place] [address] [facility] CareStart: 09-20-2022 End: 61-92-4618Mptovta encounter yiazfeimq68/23/2023 Office Visit Transplant Surgery Colin Hooper MBBS [address] [place] [address] [facility] HospitalStart: 07-17-2022 End: 57-09-6055Oygqiir encounter lhesaktel66/17/2023 Office Visit Family Medicine Geovanna Miranda, INSURANCE SALES SPECIALIST-CYBER DEFENSE FORENSICS ANALYST [address] [place] [address] [facility]: 05-31-2022 End: 43-59-2381Nyilllm encounter procedureDermatology Outpatient Care [place] Start: 03-30-2022 End: 58-46-9875LTOV TESTOSTERONEFREE TESTOSTERONE Lab Routine Low testosterone in male Expected: 03/30/2022, Expires: 03/02/2023[facility] HospitalComment on above:Expected: 03/30/2022, Expires: 03/02/2023Start: 03-30-2022 End: 82-88-9873Vkeytnpscnvs [Mass/volume] in Serum or PlasmaTESTOSTERONE Lab Routine Low testosterone in male Expected: 03/30/2022, Expires: 03/02/2023[facility] HospitalComment on above:Expected: 03/30/2022, Expires: 03/02/2023Start: 24-55-4143OlkmaqgdiLeonard J. Chabert Medical Centertart: 02-08-2022 End: 72-42-7591Yxoggkg encounter ufyiobaau45/11/2022 Office Visit Urology Charley Mccracken MD, PhD [address] [place] [address] [facility]: 01-23-2022 End: 62-19-3804Uhivjpjegs and management of inpatientCCCT PERIOPComment on above:Polycystic kidney diseaseNEPHRECTOMY OPENStart: 01-23-2022 End: 71-06-5125Ugmiwwwzdpw w/prtl ureterect opn rib rescj complNEPHRECTOMY OPEN Polycystic kidney disease 01/23/2022 7:15 AM [facility]DSWED[facility]IN ORStart: 01-08-2022 End: 17-90-2682Lwzordt encounter /11/2022 Office Visit Family [facility] Geovanna Miranda, INSURANCE SALES SPECIALIST-CYBER DEFENSE FORENSICS ANALYST [address] [place] [address] [facility] HospitalStart: 27-92-3395GrpldrldvmcUNMZMUOTAE CANCER SCREENING DISCUSSIONOSU [facility] CenterStart: 77-98-0986Yglmcafs specific antigen measurementPROSTATE CANCER SCREENING DISCUSSIONOSU [facility] CenterStart: 61-60-0593Gzdqyaaqr for malignant neoplasm of colonCOLORECTAL CANCER SCREENING DISCUSSIONSelect Medical [facility], Avontart: 12-08-2021 End: 92-80-9964Reeepsetx to same day surgery wtkqup6512/08/2021 Surgery Endoscopy Griselda Gallegos MD [address] [place] [phone] EGD DIAGNOSTICOSU Farhad EndoscopyComment on above:EGD DIAGNOSTICStart: 12-08-2021 End: 22-57-8980Rhcyyjzyyzqaecxkxmqblgxnhn transoral diagnosticEGD DIAGNOSTIC Gastroesophageal reflux disease without esophagitis S/P laparoscopic sleeve gastrectomy 12/08/2021 9:30 AM [facility] ENDOSCOPYStart: 84-71-7518Rcxynniprd hospital visit by gseuqkhtd16/10/2022 Hospital Encounter Endoscopy Griselda Gallegos MD [address] [address] Gastroesophageal reflux disease without e sophagitisOSU [facility] EndoscopyComment on above:Gastroesophageal reflux disease without esophagitisStart: 11-30-2021 End: 07-92-9578Oixkxff encounter /02/2022 Office Visit Urology Karon Howard MD [address] 1st [place] [address] Division of Urological Surgery [facility]: 10-09-2021 End: 26-33-8878AIEQ TESTOSTERONEFREE TESTOSTERONE Lab Routine Erectile dysfunction, unspecified erectile dysfunction type Lack of sexual desire Expected: 10/09/2021, Expires: 10/09/2022[facility] HospitalComment on above: Expected: 10/09/2021, Expires: 10/09/2022Start: 10-09-2021 End: 13-13-1517Mbsnvrxstbkv [Mass/volume] in Serum or PlasmaTESTOSTERONE Lab Routine Erectile dysfunction, unspecified erectile dysfunction type Lack of sexualdesire Expected: 10/09/2021, Expires: 10/09/2022[facility] HospitalComment on above:Expected: 10/09/2021, Expires: 10/09/2022Start: 10-09-2021 End: 35-38-3971AE KidneyUS RENAL Imaging Routine Polycystic kidney disease -donor 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/25/2016 Expected: 10/09/2021, Expires: 10/09/2022[facility] HospitalComment on above:Expected: 10/09/2021, Expires: 10/09/2022Start: 10-09-2021 End: 70-64-9974NV Spine Lumbar and Sacrum 5 ViewsXR SPINE LUMBOSACRAL 5 VIEWS Imaging Routine Acute bilateral low back pain without sciatica Expected: 10/09/2021, Expires: 10/09/2022[facility] HospitalComment on above:Expected: 10/09/2021, Expires: 10/09/2022Start: 28-16-2112RZYBH-19 VACCINE (3 - Booster for Jenna series)COVID-19 VACCINE (3 - Booster for Jenna series)[facility] SystemStart: 19-63-2553MRWKA-19 VACCINE (3 - Jenna risk series)COVID-19 VACCINE (3 - Jenna risk series)[facility] SystemStart: 95-60-1609PEYOP-19 VACCINE (2 - Jenna risk 3-dose series)COVID-19 VACCINE (2 - Jenna risk 3- dose series)[facility]Gen[facility] CenterStart: 92-62-6432OZPPV-19 VACCINE (2 - Jenna risk series)COVID-19 VACCINE (2 - Jenna risk series)[facility] CenterStart: 09-04-2018 End: 96-15-5855Nqyugamyha33/07/2019 Office Visit Transplant Surgery Colin Hooper, MBJOSE ALBERTO [address] [place] [address] [facility] Transplant Center Post Transplant OfficeStart: 08-01-2018 End: 40-84-1141Jjuvlvtvjg27/01/2019 Office Visit Orthopaedics Nargis Figueroa, INSURANCE SALES SPECIALIST-CYBER DEFENSE FORENSICS ANALYST [address] [place] [address] [facility] OrthopedicsStart: 58-19-7566Swtskcwz specific antigen measurementPROSTATE CANCER SCREENING [facility] Work Phone: Start: 05-27-2018 End: 93-96-8865Hzqspbmthe58/27/2018 Appointment Magnetic Resonance Imaging Ari Ireland MD [address] [place] [address] [facility] Hospitalyrus MRIStart: 97-97-3681Nuuhwtyuxf69/15/2018 Procedure Pass [facility] OrthopedicsStart: 00-30-8808Adicgeehu vaccination INFLUENZA VACCINE (#1)[facility] Work Phone: Start: 79-50-2477MwcfbftigjqFCAWB CANCER SCREENING [facility] Work Phone: Start: 42-00-0103Hbszlyb mass concCOLON CANCER SCREENING [facility] Work Phone: Start: 34-61-0364Svzzmuczm for malignant neoplasm of colonFlexible sigmoidoscopyOhioHealthStart: 21-80-0741Utrzde vaccine hzv live for subcutaneous useZOSTER (SHINGLES) VACCINE (1 of 2)[facility] Start: 65-09-0971Vpnfocmuirhcfd of herpes zoster vaccineZoster Vaccines (1 of 2) [facility] HospitalStart: 81-56-6862Nagqixwqo B vaccinationHEP B VACCINE (1 of 3 - 19+ 3- dose series)[facility]tart: 43-60-4098Kosvby vaccine hzv live for subcutaneous useZOSTER (SHINGLES) VACCINE (1 of 2)[facility] Avontart: 47-21-1606Omhomqrvt C screeningHepatitis C ScreeningOhioHealthStart: 1982 HIV screeningHIV ScreeningOhioHealthStart: 28-75-1895PCA screeningHIV SCREENING [facility] Work Phone: Start: 24-25-9506Qacfignwkg screening using PHQ-9 (Patient Health Questionnaire 9) scoreDepression Screening (PHQ-2/9)[facility] Start: 57-38-8502Nvjmchs and physical examination, annual for health maintenance Wellness VisitOhioHealthStart: 38-89-0838Pztrtbhe specific antigen measurement PSA LevelOhioHealthStart: 81-97-1614Vikrkwjgd for malignant neoplasm of colon Corey HospitalBldr irrigation smpl lavage &/instljPR BLDR IRRIGATION SMPL LAVAGE &/INSTLJ NV Charge Routine Urinary retention Ordered: 04/06/2024[facility] HospitalComment on above:Ordered: 04/06/2024omprehensive metabolic 1999 panel - Serum or [facility] HospitalComprehensive metabolic 1999 panel - Serum or [facility] HospitalComprehensive metabolic 1999 panel - Serum or [facility] HospitalEcg routine ecg w/least 12 lds w/i&rPR ELECTROCARDIOGRAM, COMPLETE NV - OFFICE PERFORMED Routine Preop exam for internal medicine Polycystic kidney disease -donor 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/25/2016 Immunosuppression S/P laparoscopic sl eeve gastrectomy Ordered: 2[facility] HospitalComment on above: Ordered: 01/04/2022Ecg routine ecg w/least 12 lds w/i&rPR ECG ROUTINE ECG W/LEAST 12 LDS W/I&R NV - OFFICE PERFORMED Routine Preop exam for internal me dicine History of surgery Ordered: 02/25/2024OSMer[facility] CenterComment on above:Ordered: 02/25/2024Esophagogastroduodenoscopy transoral diagnosticEGD DIAGNOSTIC Gastroesophageal reflux disease without esophagitis S/P laparoscopic sleeve gastrectomyOSC[facility] End: 46-11-1854RNLJULX PROCEDUREGENERAL PROCEDURE Procedures Routine Once for 1 Occurrences starting 03/27/2024 until 03/27/2024OSMer[facility] Work Phone: comment on above:Once for 1 Occurrences starting 03/27/2024 until 03/27/2024Meas post-voiding residual urine&/bladder capPR GAURAV POST-VOIDING RESIDUAL URINE&/BLADDER CAP NV Charge Routine Urinary retention Ordered: 04/06/2024OSMercy Health Springfield Regional Medical CenterComment on above:Ordered: 04/06/2024 Gaurav post-voiding residual urine&/bladder capPR GAURAV POST-VOIDING RESIDUAL URINE&/BLADDER CAP NV Charge Routine Urinary retention Ordered: 04/21/2024OSMercy Health Springfield Regional Medical CenterComment on above:Ordered: 04/21/2024MRI of kneeMRI KNEE RIGHT WITHOUT CONTRAST Routine Chronic pain of right knee Osteoarthritis of right knee, unspecified osteoarthritis type Ordered: 05/15/2018[facility] Work Phone: Comment on above:Ordered: 05/15/2018Orthotics mgmt & traing initial enctr ea 15 minsPR ORTHOTICS MGMT & TRAINJ INITIAL ENCTR EA 15 MINS NV - OFFICE PERFORMED Routine Right foot pain Sprain of right ankle, unspecified ligament, initial encounter Ordered: 04/19/2023[facility] Comment on above:Ordered: 04/19/2023 End: 57-25-0399ISUPLMKOI NEPHROSTOMY CATHETER PERCUTANEOUS W/ IMAGE GUIDANCEOSMercy Health [facility] Center Work Phone: comqvoz on above:One Time for 1 Occurrences starting 03/26/2024 until 03/26/2024olysomnographySCHEDULE HOME SLEEP STUDY PFT Routine S/P laparoscopic sleeve gastrectomy History of obstructive sleep apnea Obstructive sleep apnea (adult) (pediatric) Ordered: 09/30/2023OSMercy Health Springfield Regional Medical CenterComment on above:Ordered: 4PR REMOVE BRAY CATHETERPR REMOVE BRAY CATHETER NV - OFFICE PERFORMED Routine Urinary retention Ordered: 04/06/2024[facility] HospitalComment on above:Ordered: 04/06/2024 Radiography for bone length studiesXR BONE LENGTH STUDY Routine Chronic pain of right knee 05/15/2018 3:[address] [facility] Work Phone: Radiologic examination of kneeXR KNEE RIGHT 4+ VIEWS Routine Chronic pain of right knee 05/15/2018 3:[address] [facility] Work Phone: Shvg skin lesion 1 trunk/arm/leg diam 0.6-1.0 cmPR SHAV SKIN LES 0.6-1CM TRUNK,ARM,LEG NV Charge Routine Neoplasm of uncertain behavior of skin Ordered: 05/28/2023[facility] HospitalComment on above: Ordered: 05/28/2023Standard ECGECG ECG Routine S/P laparoscopic sleeve gastrectomy Vitamin D deficiency Iron deficiency Medicationmanagement Ordered: 09/30/2023[facility] HospitalComment on above:Ordered: 09/30/2023SURG PATH REQUESTSURG PATH REQUEST Surg Path Routine Neoplasm of uncertain behavior of skin 05/28/2023 2:42 PM [facility] GE 3 Views [facility]XR Foot - right 3 ViewsXR FOOT RIGHT 3 VIEWS Imaging Routine Right foot pain 04/19/2023 10:49 AM [facility] [employer] [facility] Work Phone: [facility] Immunizations Immunization DateImmunizationNotesCare MnuukfbzZbwqjzav72-23-0317mimhhwmep virus vaccine, unspecified formulationRodrigo Saravia MD Work Phone: [facility] HospitalEC[facility]-SAFE Zyfxce33-51-5835vfzvrcowjxbo polysaccharide vaccine, 23 valentRachel Amos INSURANCE SALES SPECIALIST-CYBER DEFENSE FORENSICS ANALYST Work Phone: [facility] HospitalStksvh30-73-4317xzbsbbfxc virus vaccine, unspecified formulationCarmen Marrufo DO Work Phone: [facility] HospitalNkguvb59-87-9167PMVXI-51 vaccine, AD26, Jenna 0.5 MLRachel Vienna INSURANCE SALES SPECIALIST-CYBER DEFENSE FORENSICS ANALYST Work Phone: [facility] HospitalXpzbyi16-15-1078shgkguqcn, injectable, quadrivalent, preservative freeRachel Amos INSURANCE SALES SPECIALIST-CYBER DEFENSE FORENSICS ANALYST Work Phone: [facility] HospitalAsmpxz55-93-2055nortrog and diphtheria toxoids, adsorbed, preservative free, for adult use (2 Lf of tetanus toxoid and 2 Lf of diphtheria toxoid)[facility] Work Phone: [phone]grnreso conjugate vaccine, 13 valent [facility] Work Phone: Payers DatePayer CategoryPayerPolicy [id number] 2019Self-pay [id number] 2014Medicare [id number] 2.0.1.988792.3.57[id number] 2..1.083878.3.57[id number] 2.0.1.629779.3.57[id number] 2.16840.1.671437.3.57[id number] 2.16840.1.443961.3.57[id number] 2.16.840.1.350312.3.57[id number] 2.16.840.1.373497.3.57[id number] 2.16.840.1.316060.3.579.2.06792-37-5687Detgqrx1946 2.16.840.1.093503.3.57[id number] 2.840.1.454269.3.57[id number] 2.840.1.930228.3.57[id number] 2.840.1.414294.3.57[id number] 2.840.1.225011.3.57[id number] 2.840.1.456578.3.57[id number] 2.840.1.612984.3.57[id number] 2.840.1.706442.3.57[id number] 2.16840.1.745892.3.57[id number] 2.840.1.417628.3.57[id number] 2.840.1.469589.3.57[id number] 2.840.1.659581.3.57[id number] 2.16.840.1.077384.3.57[id number] 2.16.840.1.626101.3.579.[id number] 2.16.840.1.357908.3.57[id number] 2.16.840.1.314247.3.57[id number] 2.16.840.1.689126.3.57[id number] 2.16.840.1.891138.3.57[id number] 2..840.1.051027.3.57[id number] 2.16.840.1.020454.3.5[id number] 2.16.840.1.508165.3.579.2.531 Social History DateTypeDetailFacilityStart: 05-15-2018 End: 17-86-5469Qczndou smoking status NHISFormer [facility] Work Phone: Start: 07-01-1982 End: 49-60-9059Xteeoba of tobacco useCurrent [facility] Work Phone: Start: 07-01-1982 End: 92-22-7046Smhagih of tobacco useCigarette [facility] Work Phone: Start: 05-15-2018 End: 60-82-3215Wkgozzsljo smoked current (pack per day) - [facility] Work Phone: Start: 14-73-3005Fjl Assigned At [facility] CenterNot on [facility] Work Phone: Start: 11-30-2016 End: 50-53-4046Fllzusp use and exposureSmokeless tobacco non-userOSU [facility] Children's Medical Centertart: 08-17-2021 End: 69-80-8121Xsixviz intakeCurrent non-drinker of alcohol (finding)[facility]tart: 09-08-2021 End: 15-67-0240Evvlmlie to SARS-CoV-2 (event)Not sureMarietta Memorial Hospital End: 43-52-6163Oheaacd of tobacco usePipe SmokerOSPremier Health Atrium Medical Centertart: 59-37-6273Fvcdajm SDOH Alcohol [facility] SystemStart: 08-30-2022 End: 79-45-6749Ryizaig intakeEx-drinker (finding)[facility] HospitalStart: 09-02-2022 End: 27-63-5610Giiwbne use panelOhioHealthAdolescent depression screening ejjcrxesrz8SBNMarietta Memorial HospitalGender identityIdentifies as male gender (finding)[facility] Easttart: 13-78-7134Bsshgp orientation Heterosexual (finding)[facility] HospitalHistory of tobacco usePassive smokerOSPremier Health Atrium Medical Centertart: 03-86-9477Lzg Assigned At [facility] SystemHas the electric, gas, oil, or water company threatened to shut off services in your home in past 12MoNoOSU [facility](I/We) worried whether (my/our) food would run out before (I/we) got money to buy more.Never trueOSU Barney Children's Medical CenterexMale (finding)[facility] HospitalNEGATED: Highlighted rowStart: NINFHistory of tobacco use Passive smokerOSMercy Health [facility] Medical Equipment Procedure CodeEquipment CodeEquipment Original TextEquipment IdentifierDates [id number] Covidien Mesh Open Skirt 86z61ya [id number]: 31-75-0966Jwt3655x Uh Covidien Mesh Open Skirt 86n65qx [id number]: 64-71-8715Soi8112l Uh Covidien Mesh Open Skirt 10f63hd [id number]: 69-23-7363Pdm0097y Uh Covidien Mesh Open Skirt 18x13pp Upi2523zqhPewer: 77-98-5944Bgi6049q Uh Covidien Mesh Open Skirt 53g96ss Wtj7108crqIpnks: 78-02-3541Csdb Marlex 10in X 14in - [id number]_jopDdlez: 99-01-1417Rtw5555c Covidien Mesh Open Skirt 22t76bi [id number]_adrPtwobat on above:Description: [id number] Covidien Mesh Open Skirt 21x58jy [id number]_tjxCmwst: 38-67-0655Mhqfjuk on above:Description: [id number] Goals DatePatient GoalDesired Activity/StatePersonal health goalComment on above: Short Term Goal The patient will demonstrate good adherence and understanding to recommended home exercise program for maintenance of functional gains Residential Goal Increase R ankle PF Strength to 4+ to 5/5 demonstrated by ability to perform at least 15 single legheel raises to facilitate normalization of gait and [...] household activities. Clinical Notes 09-25-2016 to 05-29-2024 Note Date & DmyjGpyuRcjzjduy57-24-6664 Evaluation + Plan note* Assessment & Plan Note - REYES Massey - 05/29/2024 9:52 PM ESTAssociated Problem(s): S/P bypass gastrojejunostomy Labs: orders written for new lab studies as appropriate; see orders, printed lab order to do nutrition labs in ~ [address] consult is requested. Pharmacist consult is not requested. Continue following with Cayla Velazquez to discuss preventive health recommendations. Encouraged vitamin/mineral supplement use as appropriate. Goals as identified below. [facility]11-29-2024 Miscellaneous Notes* Assessment & Plan Note - REYES Massey - 05/29/2024 9:52 PM ESTAssociated Problem(s): S/P bypass gastrojejunostomy Labs: orders written for new lab studies as appropriate; see orders, printed lab order to do nutrition labs in ~ [address] is requested. Pharmacist consult is not requested. Continue following with Cayla Velazquez to discuss preventive health recommendations. Encouraged vitamin/mineral supplement use as appropriate. Goals as identified below. documented in this encounterOSU [facility]11-21-2024 History of Present illness Narrative* Bina Sheets RD - 05/21/2024 10:30 AM EST Visited with patient per Liza Peralta CNP request. S/p GJ on 03/23/2024. He continues to tolerate step 4 well and is meeting both fluid and protein goals daily. He endorses a recent episodeof discomfort due to eating too much during a meal. Discussed pre-portioning meals and snacks aheadof time and eating every couple of hours to prevent overeating. Patient verbalizes understanding ofinformation provided. Bina Sheets MS, RDN, LD documented in this encounterOSU [facility]11-21-2024 History of Present illness Narrative* Hetal Willis RN - 05/21/2024 10:00 AM EST Presents for surgical weight management follow up s/p GJ on 03-23-24. Weight is down 6# since last clinic visit on 04-23-24 and down 22# since DOS. He denies any nausea, vomiting, diarrhea, constipation, bloating and symptoms of reflux. Is drinking 64 oz of fluid and taking in 60-80 grams of proteindaily. For exercise he is walking 4-5 days per week for 60-90 minutes. * Liza Penn, INSURANCE SALES SPECIALIST-CYBER DEFENSE FORENSICS ANALYST - 05/21/2024 10:00 AM EST Images from [...] this in his 20s. Email on file: [email or web address] does not want to be on surgical [...] oz fluids; eating >60 grm protein via 08/29- 2 meal(s)/snack(s) daily; is not tracking intake. Supplements: [...] / wk including cardio and strength), healthy self- care and adequate sleep. Ongoing protein rich diet [...] this service. 19 minutes documented in this encounterMarietta Memorial Hospital11-21-2024 Instructions* Patient Instructions* Liza Penn, INSURANCE SALES SPECIALIST-CYBER DEFENSE FORENSICS ANALYST - 05/21/2024 10:00 AM EST Images from [...] Our scheduling center can be reached at [phone]. Please call 3 months before you wish to be seen. NUTRITION RELATED BLOOD WORK (LABS): It is very important to periodically check labs after bariatric surgery. We recommend checking labs6 months after surgery and then at least [...] (and salicylates including Pepto Bismol), Naproxen - andother medications in this class. If you're unsure, [...] 6 hours and may take more than 1dose. If no results please call our office or your primary care provider. DUMPING SYNDROME--Dumping Syndrome happens when your stomach contents are dumped into your small intestine quickly. Often this happens soon after eating and symptoms can range from mild to severe. This can happen if you eat and drink at the same time, take too big a bite, or have more than 10 gramsof sugar in one meal or snack. In [...] the last 2-3 hours. Alcohol may make youmore intoxicated (drunk/tipsy) than you expect, which can be unsafe! POST-OPERATIVE RESTRICTIONS/INSTRUCTIONS 2 weeks after surgery: You may walk and do stairs. No water exercise until incision sites are well- healed (no scabs). Do not lift more than [...] Saturday from 5 - 6 p.m. via [employer]. To sign up, email [email or web address]. Remember to check your spam folder if you don't see the messages in your inbox. Your most recent recorded weights and BMI: Wt Readings from Last 3 Encounters: 05/21/24 95.1 kg (209 lb 9.6 oz) 04/23/24 97.7 kg (215 lb 6.4 oz) 04/21/24 98.6 kg (217 lb 4.8 oz) ; BMI Readings from Last 1 Encounters: 05/21/24 32.83 kg/m OS outpatient labs can be drawn at any of the following locations: Outpatient Blood Drawing Stations A Department of [facility] Services offered vary by location. For the latest clinical laboratory information, please visit [facility]/[email or web address]. Outpatient Care [facility], Room 2148 Saturday-Saturday, 7:30 a.m.-5:30 p.m. 543 2. Outpatient Care [address], [address] Saturday-Saturday, 7:30 a.m.-5 p.m. 3. Outpatient Care [place] [address] [facility] [address], [address] Saturday-Saturday, 7:30 a.m.-4:30 p.m. 4. Outpatient Care [place] [address] [facility] Saturday-Saturday, 8 a.m.-4:30 p.m. 5. [place] [facility] [address] [facility], [address] Saturday-Saturday, 7:00 a.m.-5:00 p.m. 6. [facility] [address] First Floor, Room [address]1100 Saturday-Saturday, 7:30 a.m.-4:30 p.m. 7. Outpatient Care [place] [address] [facility] Saturday-Saturday, 7:30 a.m.-5 p.m. Saturday, 8 a.m.-12 p.m. 8. [facility] [address] [facility] First Floor, Room 1400 Saturday-Saturday, 8 a.m.-4:30 p.m. 9. Outpatient Care [address], [address] Saturday-Saturday, 8 a.m.-4:30 p.m. 10. [place] [address] [facility], Room 1001 Saturday-Saturday, 7 a.m.-5 p.m. documented in this encounterMarietta Memorial Hospital10-24-2024 History of Present illness Narrative* Bina Sheets RD - 04/23/2024 10:30 AM EDT Patient was referred to telegraphic typewriter installer by Liza Peralta CNP for step IV diet advancement. Patientis about 1 month s/p Sleeve gastrectomy to [...] least 60 grams of protein and >64 ozfluid daily. Advanced to step IV, encouraging 60-80 gm of protein and >64oz of sugar free, decaf, and non- carbonated fluids. Discussed supplementing protein intake at meals/snacks. [...] motivation to learn and/or adhere to recommendations Labels Molder resource utilized: No Spent 10 minutes with patient vcuo-av-ltzv providing nutrition assessment and/or counseling/education and discussing step IV dietary guidelines. Bina Sheets MS, RDN, LD documented in this encounterMarietta Memorial Hospital10-24-2024 Evaluation + Plan note* Assessment & Plan Note - REYES Massey - 04/23/2024 10:20 AM EDTAssociated Problem(s): S/P bypass gastrojejunostomy 1 months post gastro-jejunostomy. Should now be following the Step [address] referral is desired by the provider/patient at this time. Labs will be checked 6 months post op, typically ordered at 2 month post op visit. Continue following with [facility] Facilityreginocarolinas [facility]care [facility] Rx provided: n/a. Encouraged vitamin/mineral supplement use [...] or at 6 months or more post-op. [facility]10-24-2024 Miscellaneous Notes* Assessment & Plan Note - REYES Massey - 04/23/2024 10:20 AM EDTAssociated Problem(s): S/P bypass gastrojejunostomy 1 months post gastro-jejunostomy. Should now be following the Step [address] referral is desired by the provider/patient at this time. Labs will be checked 6 months post op, typically ordered at 2 month post op visit. Continue following with Cayla [facility] Rx provided: n/a. Encouraged vitamin/mineral supplement use [...] months or more post-op. documented in this encounterMarietta Memorial Hospital10-24-2024 History of Present illness Narrative* REYES Massey - 04/23/2024 10:00 AM EDT Images from the original note were not [...] this in his 20s. Email on file: [email or web address] is not on surgical patient support group [...] op visit. Continue following with Cayla [facility] care Rx provided: n/a. Encouraged [...] a history of vertical sleeve gastrectomy and gastro- jejunostomy conversion on 03/23/24 to follow up in 1 month for bariatric surgery follow up. 30 min clinic visit, reason: early post op with Kourtney Simon in Dr. Gallegos clinic to be scheduledby staff/patient. ACTIVITY TIME Direct communication with the patient 19 minutes Other patient care activities related to this service including chart/data review, coordination of care, and/or preparation of documentation. 5 minutes Total time spent on this service. 24 minutes * Anca Sam RN - 04/23/2024 10:00 AM EDT LEARNING ASSESSMENT Learning needs identified: Yes Learner: [...] TEACHING Time spent teaching 10 Met with [facility] for diet review and recommendations documented in this encounterOSU [facility]10[facility]-20[facility] History of Present illness Narrative* Kendall Delatorre RN - 04/21/2024 3:00 PM EDT Images from the original note were not included. PREP SHEET FOR NEPHROLOGY CLINIC Patient Name: Zoie Heath Sap Basis Consultant: Chris Curtis Date of Kidney Transplant: 09/25/2016 9 years 6 months S/P transplant Primary Disease: Polycystic Kidneys Transplant Feed Mill Manager: Kadeem Franco, Primary Care physician: Cayla [...] hydronephrosis so no nephrostomy was placed. Patient alsohad increased creatinine at that time, and tacrolimus levels were elevated. Patient's tacrolimus was decreased to 4 mg bid. IMMUNOSUPPRESSION AND LABS: Current Immunosuppressive Medication(s) Immunosuppressive Agents Mycophenolate 200 MG/ML Recon Susp oral suspension Take 3.75 mL by mouth 2 times daily, at 0800 [id number] for 14 days. Can go back to taking Myfortic after 14 days. Tacrolimus (PROGRAF) 1 MG capsule Take 6 capsules by mouth 2 times daily. Patient taking differently: Take 4 capsules by mouth 2 times daily. I/S levels: No results found for: CYCLOSPORIN , CYCLOSPORIN2 , ESXQUKITQ1AL , CYCLORAND No results found for: CYCLOSPORINE [...] escitalopram, magnesium oxide, rOPINIRole, and sildenafil citrate [facility] - [address] - [place] [address] [facility] [address] Change in lab frequency / new order today: no Labs needed in clinic today? no enter orders & screen shot * Isabell Zuleta RN - 04/21/2024 3:00 PM EDT Images from the original note were not included. Nursing Assessment In Clinic Patient is accompanied to clinic today by: self only Did patient require a wheelchair or medical transport for appointment: no Is patient employed: no (Needed for [email or web address] forms) VITALS BP Readings from Last 3 [...] by mouth 2 times daily, at 0800 [id number] for 14 days. Can go back to taking Myfortic after 14 days. Tacrolimus (PROGRAF) 1 MG capsule Take 6 capsules by mouth 2 times daily. Patient taking differently: Take 4 capsules by mouth 2 times daily. PREFERRED LAB AND PHARMACY: [facility] - [address] - [place] [id number] [facility] [address] [id number] [place] [address] - [address] [facility] [address] [place] [address] ROS and SCREEN: Chest Pain: negative Cough: negative SOB: negative Abd Pain: negative Nausea: negative Vomiting: negative Diarrhea: negative Constipation: negative Dysuria: negative; notes UOP has been baseline since hospital discharge. Edema: BLE edema Tremors: positive Headaches: negative Wound issues: negative Have a Primary Care provider? yes Cayla Banks in [place] Been seen in the last 12 months? yes QUESTIONS OR CONCERNS TO ADDRESS WITH PHYSICIAN: Notes he has had labs checked locally since hospital discharge, creatinine was 3.23 on 04/18/24. Notacrolimus level with that draw. * CORNEL Masterson - 04/21/2024 3:00 PM EDT Images from the original note were not included. Today we were happy to see Zoie Heath at [facility] Post Transplant Office for evaluation and management of immunosuppression and associated conditions in the setting of solid organ transplantation. As you may be aware Mr. Heath is a 58 y.o. year-old male. He received an organ transplant from a [facility] on 09/25/2016 (Kidney). The patient is currently 2765 days outfrom transplantation. 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 He was discharged with his bray catheter and this was removed on 04/06/24 after successful void trial in the urology clinic with a PVR of 2 cc. Plan for today - feeling well. Renal function on labs 2 days ago was 3.2 but [facility] he is still not at baseline of 1.7. We will obtain chem 7 next week to continue monitoring for improvement. UPC minimal. BK, alloscreen pending. No change in IS. Will follow with general nephrology and dermatology. US with improving hydronephrosis and follows with Dr. Watson started him on flomax. The patient was [...] daily. (Patient taking differently: Take 1 tablet bymouth daily every morning.) escitalopram 20 MG tablet [...] by mouth 2 times daily, at 0800 [id number] for 14 days. Can go back to [...] by mouth 2 times daily, at 0800 [id number] for 14 days. Can go back to [...] nature of patients health needs by furnishing carefor the patients complex, chronic condition that will require ongoing care with myself or someone from the transplant team. Thank you for allowing us to partake in the care of your patient. Should you have any questions please do not hesitate to contact me. [facility] Instructions* Patient Instructions* Isabell Zuleta RN - 04/21/2024 3:00 PM EDT - Return to see Dr. Franco in 6 months. - Labs today in clinic. [facility] History of Present illness Narrative* Mariah Sevilla - 04/21/2024 11:30 AM EDT U/A dip was performed and results documented. * Bessie Garibay - 04/21/2024 11:30 AM EDT Bladder Scan for Post-Void Residual: Bladder scan was performed for a residual of 101ml Patient tolerated well with no complaints. Results recorded to IHIS flow sheet. * Isabell Frank MD - 04/21/2024 11:30 AM EDT Referring provider: Griselda Gallegos MD Chief Complaint Elevated PVR Hydronephrosis of transplant kidney HPI Mr. Heath is a 58 y.o. male with history of anxiety/depression who presents with hydronephrosis ofthe transplant kidney, elevated PVR, and rising Cr. [...] Laterality: Right; Surgeon: Netta Titus MD; Location: [facility] INTERVENTIONAL RADIOLOGY (VIR) EGD DIAGNOSTIC N/A 03/23/2024 Laterality: N/A; Surgeon: Griselda Gallegos MD; Location: [facility] SAME DAY SURGERY MAIN OR NEPHRECTOMY OPEN Bilateral 01/23/2022 Laterality: Bilateral; Surgeon: Charley Mccracken MD, PhD; Location: [facility] MAIN OR NEPHRECTOMY 2021 APPENDECTOMY LAPAROSCOPIC N/A 12/26/2019 Laterality: N/A; Surgeon: Rosy Lynn DO; Location: [facility] MAIN OR GASTRECTOMY LONGITUDINAL (SLEEVE) LAPAROSCOPIC N/A 08/10/2019 Laterality: N/A; Surgeon: Griselda Gallegos MD; Location: [facility] SAME DAY SURGERY MAIN OR EGD DIAGNOSTIC N/A 08/10/2019 Laterality: N/A; Surgeon: Griselda Gallegos MD; Location: [facility] SAME DAY SURGERY MAIN OR EGD DIAGNOSTIC N/A 04/24/2019 Laterality: N/A; Surgeon: Nahomy Santos MD; Location: [facility] ENDOSCOPY LAPAROTOMY EXPLORATORY N/A 02/27/2019 Laterality: N/A; Surgeon: Raul Lott MD; Location: [facility] MAIN OR HERNIA REPAIR 02/27/2019 REPAIR HERNIA UMBILICAL OPEN W/ MESH N/A 05/09/2017 Laterality: N/A; Surgeon: CORNEL Elizondo; Location: [facility] MAIN OR KIDNEY TRANSPLANT W/O [place] NEPHRECTOMY N/A 09/25/2016 Laterality: N/A; Surgeon: Jose Shaw MD; Location: [facility] MAIN OR NV ARTHROSCOPY KNEE MENISCAL TRNSPLJ MED/LAT Right 11/12/2014 [...] daily. (Patient taking differently: Take 1 tablet bymouth daily every morning.) 90 tablet 3 escitalopram [...] by mouth 2 times daily, at 0800 [id number] for 14 days. Can go back to [...] by mouth as needed for Erectile Dysfunction. 30tablet 2 Sucralfate 1 g tablet Take 1 [...] 11/07/2016 The 10-year ASCVD risk score (Rufus DK, et al., 2019) is: 6.7%* Values used [...] with several of these cysts in the [place] kidneys have increased density probably secondary to hemorrhage however low-grade malignancy would be difficult to exclude. 4. Diverticulosis without diverticulitis. Assessment/Plan Mr. Heath is a 58 y.o. male with hydronephrosis of the transplant kidney, elevated PVR, and risingCr. - No ureteral obstruction seen on antegrade [...] for follow up plan Isabell Frank MD Sales Office Administrator of Urology [facility] History of Present illness Narrative* Bina Sheets, RD - 04/09/2024 11:00 AM EDT Patient was referred to telegraphic typewriter installer by Dr. Griselda Gallegos for step III [...] least 60 grams of protein and 64 ozfluid daily. Endorses some episodes of self-advancement with [...] step III foods. Reviewed with patient adding 1781-0682 mg calcium citrate and 500mcg of Sublingual [...] motivation to learn and/or adhere to recommendations Labels Molder resource utilized: No Spent 12 minutes with patient [id number] providing nutrition assessment and/or counseling/education and discussing step III dietary guidelines. Bina Sheets, MS, RDN, LD documented in this [facility]10-10-[facility]24 History of Present illness Narrative* Ilan Ventura RN - 04/09/2024 10:30 AM EDT First Post-Operative Visit Goals Marker Response/Education Standards Reviewed MD/DEFENSIVE FIRE CONTROL SYSTEMS OPERATOR notified of deviation from standard 1. 64 [...] no, Post op Standard discussed. Reviewed with MD/DEFENSIVE FIRE CONTROL SYSTEMS OPERATOR. Gave wound care and instructions. Verbal understanding [...] 18. Have you disposed of the [facility] prescribed opioid pills? [] Yes [] No # of narcotic pills remaining: [] If no, discussed disposal how, where, and why. [] Comment: * Bette Mtz RN - 04/09/2024 10:30 AM EDT LEARNING ASSESSMENT Learning needs identified: Yes Learner: patient Readiness to learn: No barriers; Ready to learn First Post-Operative Visit Goals Marker Response/Education Standards Reviewed MD/DEFENSIVE FIRE CONTROL SYSTEMS OPERATOR notified of deviation from standard 1. 64 [...] no, Post op Standard discussed. Reviewed with MD/DEFENSIVE FIRE CONTROL SYSTEMS OPERATOR. Gave wound care and instructions. Verbal understanding [...] op education provided as needed. Referred to [facility] office staff as needed. [] Comment: [x] No 17. Primary care 1 month post op scheduled [x] Yes [] No [] If no, Post op standard reviewed, education provided [] Comment: 18. Have you disposed of the [facility] prescribed opioid pills? [] Yes [] No # of narcotic pills remaining: [] If no, discussed disposal how, where, and why. [] Comment: none prescribed * Griselda Gallegos MD - 04/09/2024 10:30 AM EDT Chief Complaint Patient presents with Post Op [...] He does not have negative symptoms including nausea,vomiting, reflux symptoms, bloating, diarrhea or constipation, or [...] Laterality: Right; Surgeon: Netta Titus MD; [facility] INTER[facility] (VIR) EGD DIAGNOSTIC N/A 03/23/2024 Laterality: N/A; Surgeon: Griselda Gallegos MD; Location: [facility] SAME DAY SURGERY MAIN OR NEPHRECTOMY OPEN Bilateral 01/23/2022 Laterality: Bilateral; Surgeon: Charley Mccracken MD, PhD; Location: [facility] MAIN OR NEPHRECTOMY 2021 APPENDECTOMY LAPAROSCOPIC N/A 12/26/2019 Laterality: N/A; Surgeon: Rosy Lynn DO; Location: [facility] MAIN OR GASTRECTOMY LONGITUDINAL (SLEEVE) LAPAROSCOPIC N/A 08/10/2019 Laterality: N/A; Surgeon: Griselda Gallegos MD; Location: [facility] SAME DAY SURGERY MAIN OR EGD DIAGNOSTIC N/A 08/10/2019 Laterality: N/A; Surgeon: Griselda Gallegos MD; Location: [facility] SAME DAY SURGERY MAIN OR EGD DIAGNOSTIC N/A 04/24/2019 Laterality: N/A; Surgeon: Nahomy Santos MD; Location: [facility] ENDOSCOPY LAPAROTOMY EXPLORATORY N/A 02/27/2019 Laterality: N/A; Surgeon: Raul Lott MD; Location: [facility] MAIN OR HERNIA REPAIR 02/27/2019 REPAIR HERNIA UMBILICAL OPEN W/ MESH N/A 05/09/2017 Laterality: N/A; Surgeon: CORNEL Elizondo; Location: [facility] MAIN OR KIDNEY TRANSPLANT W/O SEMINOLE NEPHRECTOMY N/A 09/25/2016 Laterality: N/A; Surgeon: Jose Shaw MD; Location: [facility] MAIN OR NV ARTHROSCOPY KNEE MENISCAL TRNSPLJ MED/LAT Right 11/12/2014 [...] daily. (Patient taking differently: Take 1 tablet bymouth daily every morning.) escitalopram 20 MG tablet [...] by mouth 2 times daily, at 0800 [id number] for 14 days. Can go back to [...] diet. 2. The patient will see our concrete boom operator today 3. We encouraged exercise and/or increasing overall activity as appropriate. 4. Prescription offered as needed. 5. The patient will follow up in 2 weeks or earlier if needed. [facility] History of Present illness Narrative* Jo Rosales RN - 04/06/2024 11:00 AM EDT Pt was given an explanation regarding the voiding trial and wishes to proceed. Pt undressed and the bray bag was removed from the catheter. 420 mL of 0.9%NaCl was slowly instilled into the bladder. The balloon of a 16 Spanish catheter was then deflated. The patient voiced an urge to urinate and the catheter was removed. The patient tolerated the procedure well. Pt was allowed to void. 420 mL of clear urine was returned and a PVR was performed and showed 2 mL of urine in the bladder Provider, Cayla Gonzalez CNP, was immediately available in the suite for any questions or concerns. * REYES Kirk - 04/06/2024 11:00 AM EDT Nurse Visit. I was present in the clinic area and available should any issues or questions arise [facility] History of Present illness Narrative* Kg Blackburn RN - 03/28/2024 1:00 PM EDT Patient discharged to home per MD order. Charge nurse reviewed bariatric diet instructions, post-surgical instructions, and urinary catheter instructions. Additional catheter supplies including leg bag sent with patient. Mr. Heath verbalized understanding regarding follow up appointments, medications, catheter care requirements, and when to notify health care provider/surgery team. Patient left facility via wheelchair with car ride en-route home. * Gamal Chino RN - 03/27/2024 2:50 PM EDT Pt is back from IR. No neph tubes placed. Assessment complete and the only difference is in urine being bloody/blood tinged which is expected. Will check vitals and monitor. * Gamal Chino RN - 03/27/2024 10:58 AM EDT Pt left to IR in stable condition accompanied by transport. * Aline Israel RN - 03/25/2024 6:[address] Mckenzie of Hgb results=6.5 * Aline Israel RN - 03/25/2024 5:36 PM EDT Sent secure message to Dr Banks that hgb result=6.5 * Enrique Ambriz MD - 03/25/2024 3:03 PM EDT Transplant Nephrology Follow Up Subjective Resting in bed today. No overnight events. Objective: BP 137/60 (BP Location: Left arm, BP Position: Lying) Pulse 71 Temp 98.6 F (37 C) (Oral) Resp16 Ht 1.702 m (5' 7 ) Wt [...] above Volume expand Primo Barber MD, DIANN Sales Office Administrator of Clinical Medicine [facility] * Aline Israel RN - 03/25/2024 10:48 AM EDT A dual assessment of skin condition was performed by this telegraphic typewriter installer and Tere MAYS. Skin Assessment: Skin within defined limits:Yes Except surgical incisions Adilson Score: 20 LDA Added:No Aline Israel RN * Griselda Gallegos MD - 03/25/2024 7:05 AM EDT BARIATRIC SURGERY ATTENDING Day 2 s/p lap sleeve to bypass for severe GERD Preop his creatinine had bumped transiently to 2.6 but came down to 2.0 the day of surgery. Back upto 2.6 today. UO 2600 yesterday. Renal ultrasound [...] clear liquids for now. Griselda Gallegos MD * Tiki Mi, JANICE-CYBER DEFENSE FORENSICS ANALYST - 03/24/2024 1:12 PM EDT Post Bariatric Surgery education reviewed with the patient. Topics covered: Step 2 pureed diet essentials; home medications-what to take, hold and crush/split; medications to be prescribed to controlpain and nausea at discharge; getting in 60 gm protein and 64 oz fluid each day at home/recording amounts in the handbook provided and home BP monitoring. Explained the goal to get to 40-48 oz of fluid intake by early evening tomorrow for discharge to home. The patient was provided opportunities toask questions and seek clarification. Staff will continue to reinforce daily while inpatient. REYES Ann, 03/24/2024 1:12 PM * Jayshree Franklin RN - 03/24/2024 11:14 AM EDT Advised primary team that Carafate may require PA * Jayshree Franklin RN - 03/24/2024 11:13 AM EDT Discharge Planning Patient Assessment Admission Assessment Patient [...] Name and Contact information: Derick Heath Spouse [phone] Adult Child(edgardo), List All Adult Children: Yes [...] Practitioner) Coordinator Transplant (Inactive) as PCP - Sap Basis Consultant Roberto Carlos Davey MD as Consulting Physician (Nephrology) Environment/Caregivers Is the patient from a facility or chcf?: No Patient lives with: Spouse or Partner [...] Is the patient on Anticoagulation? : No [facility] [id number] - [place] [address] [address] [facility] [address] Test Equipment Mechanic Does the patient or real estate representative express financial concerns? : No Employed?: Retired Coping/Stress Concerns about patient s coping and stress?: No Concerns about patient s caregiver s coping and stress?: No Values and Beliefs Cultural or mormon practices that may impact discharge planning and/or [...] Home Brad Silva RN, BSN, ACM Clinical Repair Technician * Jamel Uriarte MD - 03/24/2024 9:52 AM EDT Christo Bariatric Surgery Progress Note Subjective: Reports no [...] air Cardiac: regular rate and rhythm on hospitality intern Abdomen: soft, appropriately-tender, non-distended, laparoscopic incisions well approximated, dry, without signs of infection. Labs: WBC/Hgb/Hct/Plts: 14.38/9.3/28.3/179 (03/24 157) Na/K+/Phos/Mg/Ca: 138/5.5/2.7/1.9/8.6 (03/24 157) Bun/Creat/Cl/CO2/Glucose: 45/2.17/111/19/144 (03/24 157) Assessment/Plan: Zoie Heath is a 58 y.o. male with Class III Obesity, Body mass index is 36.59 kg/m ., who is 1 Day Post-Op following Procedure(s) (LRB): CONVERSION SLEEVE TO MAY-EN-Y GASTRIC BYPASS LAPAROSCOPIC (N/A) EGD DIAGNOSTIC (N/A). Fluid management/Diet: MIV 150ml/hr and will go down to 50ml/hr later today if po intake and urine output are adequate; Step 1 bariatric liquid protein diet- encourage 6 oz per hour oral intake. DVT [...] evaluation Jamel Uriarte MD, 03/24/2024 9:53 AM * Jamel Uriarte MD - 03/23/2024 5:53 PM EDT Bariatric Surgery Post-Operative Check ID/CC: Zoie Heath [...] not voided, has ambulated, has attempted PO. Thepatient has no other immediate concerns. Objective: BP [...] please do not hesitate to page the technical publications writer resident Jamel Uriarte MD PGY-1 Anesthesiology Bariatric ([facility]) Surgery Service Pager: [phone] 03/23/24 5:54 PM * Roberto Carlos Morgan RN - 03/23/2024 4:06 PM EDT [facility] from OR a dual RN initial assessment of skin condition was performed by Roberto Carlos Morgan RN and Andrew MAYS. Skin Assessment: Skin within defined limits:Yes Adilson Score: 19 LDA Added:No Roberto Carlos Morgan RN documented [facility] Plan of care note* Plan of Care - Frederick Campos RN - 03/28/2024 12:11 AM EDT Problem: Adult Inpatient Plan of Care Goal: Plan of Care Review Outcome: Progressing Goal: Patient-Specific Goal (Individualized) Outcome: Progressing Goal: Absence of Hospital-Acquired Illness or Injury Outcome: Progressing Goal: Optimal Comfort and Wellbeing Outcome: Progressing Goal: Readiness for Transition of Care Outcome: Progressing Problem: VTE (Venous Thromboembolism) Goal: Tissue Perfusion Outcome: Progressing Problem: Pain Acute Goal: Optimal Pain Control and Function Outcome: Progressing [facility] Miscellaneous Notes* Plan of Care - Frederick Campos RN - 03/28/2024 12:11 AM EDT Problem: Adult Inpatient Plan of Care Goal: Plan of Care Review Outcome: Progressing Goal: Patient-Specific Goal (Individualized) Outcome: Progressing Goal: Absence of Hospital-Acquired Illness or Injury Outcome: Progressing Goal: Optimal Comfort and Wellbeing Outcome: Progressing Goal: Readiness for Transition of Care Outcome: Progressing Problem: VTE (Venous Thromboembolism) Goal: Tissue Perfusion Outcome: Progressing Problem: Pain Acute Goal: Optimal Pain Control and Function Outcome: Progressing * Plan of Care - Per Bentley MD - 03/27/2024 2:57 PM EDT Plan of care update - Notified intra-procedurally [...] follow-up with the transplant center for continued follow- up to ensure Cr continues to normalize, ludwig [...] PER Bentley MD PGY4 General Surgery *[id number] * Plan of Care - Enrique Ambriz MD - 03/27/2024 2:00 PM EDT Transplant Nephrology Plan of Care Tac trough remains elevated. Reduce Tac to 4mg/4mg. * Plan of Care - Gamal Chino RN - 03/27/2024 9:36 AM EDT Problem: Adult Inpatient Plan of Care Goal: Plan of Care Review Outcome: Progressing Problem: Bariatric Surgery Goal: Optimal Coping with Surgery Outcome: Progressing Goal: Absence of Infection Signs and Symptoms Outcome: Progressing Goal: Optimal Pain Control and Function Outcome: Progressing Intervention: Prevent or Manage Pain Flowsheets (Taken 03/27/2024 0936) Diversional Activities: television smartphone Pain Management Interventions: [id number] dosing utilized pain medication given pain management plan reviewed with patient/caregiver relaxation techniques promoted * Plan of Care - Aline Israel RN - 03/26/2024 10:23 AM EDT Problem: Adult Inpatient Plan of Care Goal: [...] Optimal Pain Control and Function Outcome: Progressing * Plan of Care - Per Bentley MD - 03/25/2024 6:01 PM EDT Plan of care update - Repeat U/S [...] PER Bentley MD PGY4 General Surgery *[id number] * Plan of Care - Aline Israel RN - 03/25/2024 10:43 AM EDT Problem: Adult Inpatient Plan of Care Goal: [...] Goal: Optimal Coping with Surgery Outcome: Progressing * Nursing Notes - Jayshree Franklin RN - 03/24/2024 11:15 AM EDT 03/24/24 1115 Medication Prior Auth Medication Requiring Prior Auth SUCRALFATE Dosage Form Tablet Intervention spoke with team Outcome Prior Auth Started Medication PA Process Complete? In Progress Brad Silva RN, BSN, ACM Clinical Repair Technician * Plan of Care - Roberto Carlos Morgan RN - 03/24/2024 9:38 AM EDT Problem: Adult Inpatient Plan of Care Goal: [...] Coughing and I/S therapy/use was also encouraged. * Plan of Care - Franny Hurley RN - 03/23/2024 8:55 PM EDT Problem: Adult Inpatient Plan of Care Goal: Plan of Care Review Outcome: Progressing Goal: Optimal Comfort and Wellbeing Outcome: Progressing Problem: Bariatric Surgery Goal: Optimal Coping with Surgery Outcome: Progressing Goal: Effective Gastrointestinal Motility and Elimination Outcome: Progressing Goal: Optimal Pain Control and Function Outcome: Progressing * Plan of Care - Roberto Carlos Morgan RN - 03/23/2024 4:05 PM EDT Problem: Adult Inpatient Plan of Care Goal: [...] is within reach. Will continue to monitor * Nursing Notes - Andrew Norris RN - 03/23/2024 2:30 PM EDT Patient met PACU discharge criteria. Phone report given to TABATHA Townsend. Patient transported on telemetry and cont. Pulse ox with Rn. Patient family updated. * Brief Op Note - Jyotsna Bahena MD - 03/23/2024 1:47 PM EDT Zoie Heath ([id number]) PRE OPERATIVE DIAGNOSIS Gastroesophageal reflux disease without [...] Anesthesiologist: Kurt Gonzalez MD; Yulia Hong MD Electric Motor Assembler And Tester: JADEN Vaughan; JADEN Orosco Student Anesthesiologist Turbine Mechanic: Jayshree West SURGICAL STAFF Director Of Premium Seat Sales: Della Ace, TABATHA; Prema Rodriguez RN Scrub Person: Mary Ortiz COMPLICATIONS None ESTIMATED BLOOD LOSS Minimal SPECIMENS No specimen sent * No specimens in log * Jyotsna Bahena MD March 23, 2024 1:47 PM * Op Note - Griselda Gallegos MD - 03/23/2024 1:46 PM EDT OPERATIVE/PROCEDURE REPORT Surgeon(s)/Proceduralist(s) and Turbine Mechanic(s): Surgeon(s) and Role: * Griselda Gallegos - [...] the main operating room and a identified byname, MRN, and date of . A sign [...] upper abdomen under direct vision. There were omentaladhesions to the anterior abdominal wall from his [...] Ligasure device. The May limb was marked witha suture. A 150 cm May limb was measured and approximated to the end of the biliopancreatic limb. Adjacent enterotomies were created with ultrasonic rosibel and a saldana load of the stapler was used to create a [id number] anastomosis. The common opening was closed with a transverse firing of the stap ler and reinforcement stitches were placed at both [...] piece of stomach was removed through the 12mm port. Once this was completed, the May limb was brought up in the antecolic-antegastric position sewn to the posterior gastric pouch with running 2-0 Surgidac suture. Adjacent enterotomy and gastr otomy were created with ultrasonic rosbiel and the purple load of the stapler was used to create a 1.5 cm linear stapled anastomosis. The common opening was closed with a running 2-0 Polysorb suture. An imbricating anterior layer was placed using 2-0 Surgidac to complete the 2-layer anastomosis. Thebowel clamp was placed on the May limb. The endoscope was used to provide air insufflation and a leak test was performed, which was negative for any air leaks and the endoscopic view was normal. Themesenteric defect was then closed behind the May [...] the operating room, and taken to recovery roomin stable condition. Estimated Blood Loss: minimal Specimens: - None Implantable Devices: None Drains: - None Complications: None Dr. Gallegos was scrubbed the entire case. Griselda Gallegos MD * Nursing Notes - Andrew Norris RN - 03/23/2024 1:45 PM EDT Patient arrived to PACU 8 from OR . Patient stable and attached to monitors. Bedside report from Dahlia Bahena MD and JADEN Krishnan. Patient turned side to side to remove extra linens. Patient denies nausea, states has moderate pain. VSS. [facility] Plan of care note* Plan of Care - Per Bentley MD - 03/27/2024 2:57 PM EDT Plan of care update - Notified intra-procedurally [...] follow-up with the transplant center for continued follow- up to ensure Cr continues to normalize, ludwig [...] PER Bentley MD PGY4 General Surgery *[id number] [facility] Work Phone: [phone] Plan of care note* Plan of Care - Enrique Ambriz MD - 03/27/2024 2:00 PM EDT Transplant Nephrology Plan of Care Tac trough remains elevated. Reduce Tac to 4mg/4mg. [facility] Plan of care note* Plan of Care - Gamal Chino RN - 03/27/2024 9:36 AM EDT Problem: Adult Inpatient Plan of Care Goal: Plan of Care Review Outcome: Progressing Problem: Bariatric Surgery Goal: Optimal Coping with Surgery Outcome: Progressing Goal: Absence of Infection Signs and Symptoms Outcome: Progressing Goal: Optimal Pain Control and Function Outcome: Progressing Intervention: Prevent or Manage Pain Flowsheets (Taken 03/27/2024 0936) Diversional Activities: television smartphone Pain Management Interventions: zgcjyh-rcz-[id number] dosing utilized pain medication given pain management plan reviewed with patient/caregiver relaxation techniques promoted [facility]09[facility] Consult note* Yue Leon RN - 03/27/2024 9:19 AM EDT Consults Vascular Access Consult Note Assessment: Patient [...] low. [x]Tray table within reach. [x]Physician and iron worker notified of the above Education Patient/Family informed to notify nurse of any complications including pain, redness, swelling, or leaking post-insertion. Thank you for allowing our team to participate in the care of this patient. Vascular Access Team [phone] [facility] [facility] Consult note* Yue Leon RN - 03/27/2024 9:19 AM EDT Consults Vascular Access Consult Note Assessment: Patient [...] low. [x]Tray table within reach. [x]Physician and iron worker notified of the above Education Patient/Family informed to notify nurse of any complications including pain, redness, swelling, or leaking post-insertion. Thank you for allowing our team to participate in the care of this patient. Vascular Access Team [phone] * Salbador Hardy MD - 03/26/2024 9:08 AM EDTAssociated Order(s): IP CONSULT TO INTERVENTIONAL RADIOLOGY Inter[phone] - [facility] manager icu [phone] Admission Date: 03/23/2024 Requesting Provider/Service: Hayley Alcantar [...] increase the time from consult to procedure. 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 CURRENT HOSPITALIZATION LOS: Admit Date: 03/23/2024 [facility] Hospital LOS: 2 days Zoie Heath is [...] Laterality: N/A; Surgeon: Griselda Gallegos MD; Location: [facility] SAME DAY SURGERY MAIN OR NEPHRECTOMY OPEN Bilateral 01/23/2022 Laterality: Bilateral; Surgeon: Charley Mccracken MD, PhD; Location: [facility] MAIN OR NEPHRECTOMY 2021 APPENDECTOMY LAPAROSCOPIC N/A 12/26/2019 Laterality: N/A; Surgeon: Rosy Lynn DO; Location: [facility] MAIN OR GASTRECTOMY LONGITUDINAL (SLEEVE) LAPAROSCOPIC N/A 08/10/2019 Laterality: N/A; Surgeon: Griselda Gallegos MD; Location: [facility] SAME DAY SURGERY MAIN OR EGD DIAGNOSTIC N/A 08/10/2019 Laterality: N/A; Surgeon: Griselda Gallegos MD; Location: [facility] SAME DAY SURGERY MAIN OR EGD DIAGNOSTIC N/A 04/24/2019 Laterality: N/A; Surgeon: Nahomy Santos MD; Location: [facility] ENDOSCOPY LAPAROTOMY EXPLORATORY N/A 02/27/2019 Laterality: N/A; Surgeon: Raul Lott MD; Location: [facility] MAIN OR HERNIA REPAIR 02/27/2019 REPAIR HERNIA UMBILICAL OPEN W/ MESH N/A 05/09/2017 Laterality: N/A; Surgeon: CORNEL Elizondo; Location: [facility] MAIN OR KIDNEY TRANSPLANT W/O SEMINOLE NEPHRECTOMY N/A 09/25/2016 Laterality: N/A; Surgeon: Jose Shaw MD; Location: [facility] MAIN OR NV ARTHROSCOPY KNEE MENISCAL TRNSPLJ MED/LAT Right 11/12/2014 [...] Q6HNS Jyotsna Bahena MD 650 mg at 532 aspirin chewable tablet 81 mg 81 mg Oral QAM REYES Ann 81 mg at 03/24/24 08 carBAMazepine (TEGRETOL) chewable tablet 200 mg 200 mg Oral QAM REYES Ann 200 mg at 03/24/24 08 carBAMazepine (TEGRETOL) chewable tablet 300 mg 300 mg Oral Nightly Jyotsna Bahena MD 300 mgat 03/24/242021 Cetirizine (ZyrTEC) tablet 10 mg 10 [...] mg 10 mg Oral Daily Tiki Mi APRN-CYBER DEFENSE FORENSICS ANALYST Mycophenolate oral suspension 750 mg 750 mg Oral bid Jyotsna Bahena MD 750 mg at 03/24/242020 OLANZapine (zyPREXA) tablet 2.5 mg 2.5 mg Oral QHS Jyotsna Bahena MD 2.5 mg at 03/24/242154 Ondansetron (ZOFRAN) tablet 4 mg 4 mg Oral Q6HNS Jyotsna Bahena MD 4 mg at 03/25/24102 Or Ondansetron 4mg/2ml (ZOFRAN) injection 4 mg 4 mg Intravenous Q6HNS Jyotsna Bahena MD 4 mg at03/23/241827 oxyCODONE (ROXICODONE) tablet 5 mg 5 mg Oral Q3H PRN Jyotsna Bahena MD 5 mg at 03/23/242030 Pantoprazole (PROTONIX) tablet DR 40 mg 40 mg Oral BID Tiki Mi APRN-CYBER DEFENSE FORENSICS ANALYST 40 mg at 03/24/24 165 Polyethylene glycol (MIRALAX) packet 17 g 17 g Oral Daily Jyotsna Bahena MD 17 g at 803 Prochlorperazine (COMPAZINE) injection 5 mg 5 mg [...] 1 g Oral BID AC Tiki Mi APRN-CYBER DEFENSE FORENSICS ANALYST 1 g at 03/24/241652 tacrolimus (PROGRAF) susp [...] indices Labs-CBC: WBC/Hgb/Hct/Plts: 9.82/8.0/25.1/150 (03/25 310) Labs-Chem 7([facility]): Bun/Creat/Cl/CO2/Glucose: 47/2.60/110/24/111 (03/25 310) Na/K+/Phos/Mg/Ca: 141/5.0/2.9/1.9/8.7 [...] Transplant - Renal Associated attestation - Suzie Girlado MD, PhD - 03/25/2024 11:09 AM EDT I. Suzie Giraldo MD, PhD, have independently seen and examined the patient, reviewed the labs, discussed the patient with the fellow/resident and agree with the note. I agree with the team plan: please repeat renal ultrasound to see if hydronephrosis improve with Bray. If not he will need a nephrostogram by IR. * Enrique Ambriz MD - 03/24/2024 1:40 PM EDTAssociated Order(s): IP CONSULT TO NEPHROLOGY - TRANSPLANT [...] Surgeon: Charley Mccracken MD, PhD; [facility] NEPHRECTOMY 2021 APPENDECTOMY LAPAROSCOPIC N/A 12/26/2019 Laterality: N/A; Surgeon: Rosy Lynn DO; Location[facility] MAIN OR GASTRECTOMY LONGITUDINAL (SLEEVE) LAPAROSCOPIC N/A 08/10/2019 Laterality: N/A; Surgeon: Griselda Gallegos MD; Location: [facility] SAME DAY SURGERY MAIN OR EGD DIAGNOSTIC N/A 08/10/2019 Laterality: N/A; Surgeon: Griselda Gallegos MD; Location: [facility] SAME DAY SURGERY MAIN OR EGD DIAGNOSTIC N/A 04/24/2019 Laterality: N/A; Surgeon: Nahomy Santos MD; Location: [facility] ENDOSCOPY LAPAROTOMY EXPLORATORY N/A 02/27/2019 Laterality: N/A; Surgeon: Raul Lott MD; Location: [facility] MAIN OR HERNIA REPAIR 02/27/2019 REPAIR HERNIA UMBILICAL OPEN W/ MESH N/A 05/09/2017 Laterality: N/A; Surgeon: CORNEL Elizondo; Location: [facility] MAIN OR KIDNEY TRANSPLANT W/O SEMINOLE NEPHRECTOMY N/A 09/25/2016 Laterality: N/A; Surgeon: Jose Shaw MD; Location: [facility] MAIN OR NV ARTHROSCOPY KNEE MENISCAL TRNSPLJ MED/LAT Right 11/12/2014 [...] maternal grandmother; Diabetes in his father and sister;Hypertension in his mother; Kidney Disease in his [...] Bun/Creat/Cl/CO2/Glucose: 45/2.17/111/19/144 (03/24 0157) WBC/Hgb/Hct/Plts: 14.38/9.3/28.3/179 (03/24 0157) Assessment / Plan 56M with HX of [...] CREATSERUM 1.53 01/02/2022 Primo Barber MD, DIANN Sales Office Administrator of Clinical Medicine [facility] Plan of care note* Plan of Care - Aline Israel RN - 03/26/2024 10:23 AM EDT Problem: Adult Inpatient Plan of Care Goal: [...] Optimal Pain Control and Function Outcome: [facility] Consult note* Salbador Hardy MD - 03/26/2024 9:08 AM EDTAssociated Order(s): IP CONSULT TO INTERVENTIONAL RADIOLOGY Inter[facility] Rad[facility] [id number] - [facility] manager icu [id number] Admission Date: 03/23/2024 Requesting Provider/Service: Hayley Alcantar [...] increase the time from consult to procedure. [facility] Work Phone: 1(691) 437-962509-25-2024 Plan of care note* Plan of Care - Per Bentley MD - 03/25/2024 6:01 PM EDT Plan of care update - Repeat U/S [...] PER Bentley MD PGY4 General Surgery *[id number] [facility]09-25-[facility] Plan of care note* Plan of Care - Aline Israel RN - 03/25/2024 10:43 AM EDT Problem: Adult Inpatient Plan of Care Goal: [...] Goal: Optimal Coping with Surgery Outcome: Progressing [facility]09-25-2024 Consult note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 CURRENT HOSPITALIZATION LOS: Admit Date: 03/23/2024 [facility] Hospital LOS: 2 days Zoie Heath is [...] Laterality: N/A; Surgeon: Griselda Gallegos MD; Location: [facility] SAME DAY SURGERY MAIN OR NEPHRECTOMY OPEN Bilateral 01/23/2022 Laterality: Bilateral; Surgeon: Charley Mccracken MD, PhD; Location: [facility] MAIN OR NEPHRECTOMY 2021 APPENDECTOMY LAPAROSCOPIC N/A 12/26/2019 Laterality: N/A; Surgeon: Rosy Lynn DO; Location: [facility] MAIN OR GASTRECTOMY LONGITUDINAL (SLEEVE) LAPAROSCOPIC N/A 08/10/2019 Laterality: N/A; Surgeon: Griselda Gallegos MD; Location: [facility] SAME DAY SURGERY MAIN OR EGD DIAGNOSTIC N/A 08/10/2019 Laterality: N/A; Surgeon: Griselda Gallegos MD; Location: [facility] SAME DAY SURGERY MAIN OR EGD DIAGNOSTIC N/A 04/24/2019 Laterality: N/A; Surgeon: Nahomy Santos MD; Location: [facility] ENDOSCOPY LAPAROTOMY EXPLORATORY N/A 02/27/2019 Laterality: N/A; Surgeon: Raul Lott MD; Location: [facility] MAIN OR HERNIA REPAIR 02/27/2019 REPAIR HERNIA UMBILICAL OPEN W/ MESH N/A 05/09/2017 Laterality: N/A; Surgeon: CORNEL Elizondo; Location: [facility] MAIN OR KIDNEY TRANSPLANT W/O SEMINOLE NEPHRECTOMY N/A 09/25/2016 Laterality: N/A; Surgeon: Jose Shaw MD; Location: [facility] MAIN OR NV ARTHROSCOPY KNEE MENISCAL TRNSPLJ MED/LAT Right 11/12/2014 [...] Q6HNS Jyotsna Bahena MD 650 mg at 532 aspirin chewable tablet 81 mg 81 mg Oral QAM REYES Ann 81 mg at 03/24/24 08 carBAMazepine (TEGRETOL) chewable tablet 200 mg 200 mg Oral QAM REYES Ann 200 mg at 03/24/24 08 carBAMazepine (TEGRETOL) chewable tablet 300 mg 300 mg Oral Nightly Jyotsna Bahena MD 300 mgat 03/24/242021 Cetirizine (ZyrTEC) tablet 10 mg 10 [...] Q6HNS Jyotsna Bahena MD 4 mg at 03/25/24102 Or Ondansetron 4mg/2ml (ZOFRAN) injection 4 mg 4 mg Intravenous Q6HNS Jyotsna Bahena MD 4 mg at03/23/241827 oxyCODONE (ROXICODONE) tablet 5 mg 5 mg Oral Q3H PRN Jyotsna Bahena MD 5 mg at 03/23/242030 Pantoprazole (PROTONIX) tablet DR 40 mg 40 mg Oral BID Tiki Mi APRN-CYBER DEFENSE FORENSICS ANALYST 40 mg at 03/24/24 165 Polyethylene glycol (MIRALAX) packet 17 g 17 g Oral Daily Jyotsna Bahena MD 17 g at 803 Prochlorperazine (COMPAZINE) injection 5 mg 5 mg [...] 1 g Oral BID AC Tiki Mi APRN-CYBER DEFENSE FORENSICS ANALYST 1 g at 03/24/241652 tacrolimus (PROGRAF) susp [...] indices Labs-CBC: WBC/Hgb/Hct/Plts: 9.82/8.0/25.1/150 (03/25 310) Labs-Chem 7([facility]): Bun/Creat/Cl/CO2/Glucose: 47/2.60/110/24/111 (03/25 310) Na/K+/Phos/Mg/Ca: 141/5.0/2.9/1.9/8.7 [...] he will need a nephrostogram by IR. [facility] Work Phone: 1(295) 144-130709-24-2024 Consult note* Enrique Ambriz MD - 03/24/2024 1:40 PM EDTAssociated Order(s): IP CONSULT TO NEPHROLOGY - TRANSPLANT [...] Laterality: N/A; Surgeon: Griselda Gallegos MD; Location: [facility] SAME DAY SURGERY MAIN OR NEPHRECTOMY OPEN Bilateral 01/23/2022 Laterality: Bilateral; Surgeon: Charley Mccracken MD, PhD; [facility] 2021 APPENDECTOMY LAPAROSCOPIC N/A 12/26/2019 Laterality: N/A; Surgeon: Rosy Lynn DO; [facility] MAIN OR GASTRECTOMY LONGITUDINAL (SLEEVE) LAPAROSCOPIC N/A 08/10/2019 Laterality: N/A; Surgeon: Griselda Gallegos MD; Location: [facility] SAME DAY SURGERY MAIN OR EGD DIAGNOSTIC N/A 08/10/2019 Laterality: N/A; Surgeon: Griselda Gallegos MD; Location: [facility] SAME DAY SURGERY MAIN OR EGD DIAGNOSTIC N/A 04/24/2019 Laterality: N/A; Surgeon: Nahomy Santos MD; Location: [facility] ENDOSCOPY LAPAROTOMY EXPLORATORY N/A 02/27/2019 Laterality: N/A; Surgeon: Raul Lott MD; Location: [facility] MAIN OR HERNIA REPAIR 02/27/2019 REPAIR HERNIA UMBILICAL OPEN W/ MESH N/A 05/09/2017 Laterality: N/A; Surgeon: CORNEL Elizondo; Location: [facility] MAIN OR KIDNEY TRANSPLANT W/O SEMINOLE NEPHRECTOMY N/A 09/25/2016 Laterality: N/A; Surgeon: Jose Shaw MD; Location: [facility] MAIN OR NV ARTHROSCOPY KNEE MENISCAL TRNSPLJ MED/LAT Right 11/12/2014 [...] maternal grandmother; Diabetes in his father and sister;Hypertension in his mother; Kidney Disease in his [...] CREATSERUM 1.53 01/02/2022 Primo Barber MD, DIANN Sales Office Administrator of Clinical Medicine [facility]09-24-20[facility] Nurse Note* Nursing Notes - Jayshree Franklin RN - 03/24/2024 11:15 AM EDT 03/24/24 1115 Medication Prior Auth Medication Requiring Prior Auth SUCRALFATE Dosage Form Tablet Intervention spoke with team Outcome Prior Auth Started Medication PA Process Complete? In Progress Brad Silva RN, BSN, ACM Clinical Repair Technician [facility]09-24-2024 Plan of care note* Plan of Care - Roberto Carlos Morgan RN - 03/24/2024 9:38 AM EDT Problem: Adult Inpatient Plan of Care Goal: [...] Coughing and I/S therapy/use was also encouraged. [facility]09-23-20[facility] Plan of care note* Plan of Care - Franny Hurley RN - 03/23/2024 8:55 PM EDT Problem: Adult Inpatient Plan of Care Goal: Plan of Care Review Outcome: Progressing Goal: Optimal Comfort and Wellbeing Outcome: Progressing Problem: Bariatric Surgery Goal: Optimal Coping with Surgery Outcome: Progressing Goal: Effective Gastrointestinal Motility and Elimination Outcome: Progressing Goal: Optimal Pain Control and Function Outcome: Progressing [facility]09-23-20[facility] Plan of care note* Plan of Care - Roberto Carlos Morgan RN - 03/23/2024 4:05 PM EDT Problem: Adult Inpatient Plan of Care Goal: [...] is within reach. Will continue to monitor [facility]09-23-20[facility] Nurse Note* Nursing Notes - Andrew Norris RN - 03/23/2024 2:30 PM EDT Patient met PACU discharge criteria. Phone report given to TABATHA Townsend. Patient transported on telemetry and cont. Pulse ox with Rn. Patient family updated. [facility]09-23-2024 Surgery Postoperative evaluation and management note* Brief Op Note - Jyotsna Bahena MD - 03/23/2024 1:47 PM EDT Zoie Heath ([id number]) PRE OPERATIVE DIAGNOSIS Gastroesophageal reflux disease without [...] Anesthesiologist: Kurt Gonzalez MD; Yulia Hong MD Electric Motor Assembler And Tester: JADEN Vaughan; JADEN Orosco Student Anesthesiologist Turbine Mechanic: Jayshree West SURGICAL STAFF Director Of Premium Seat Sales: Della Ace, TABATHA; Prema Rodriguez, TABATHA Scrub Person: Mary Ortiz COMPLICATIONS None ESTIMATED BLOOD LOSS Minimal SPECIMENS No specimen sent * No specimens in log * Jyotsna Bahena MD March 23, 2024 1:47 PM [facility] Work Phone: 1(663) 943-701609-23-2024 Surgery Postoperative evaluation and management note* Op Note - Griselda Gallegos MD - 03/23/2024 1:46 PM EDT OPERATIVE/PROCEDURE REPORT Surgeon(s)/Proceduralist(s) and Turbine Mechanic(s): Surgeon(s) and Role: * Griselda Gallegos - [...] the main operating room and a identified byname, MRN, and date of . A sign [...] upper abdomen under direct vision. There were omentaladhesions to the anterior abdominal wall from his prior umbilical hernia repair and prior bilateral nephrectomies and these were easily taken down using Ligasure. After we were able to retract the omentum above the transverse colong, the ligament of Treitz was easily identified and the small bowel divided 50 cm distal to the ligament of Treitz. A saldnaa load of the linear stapler was used to divide the bowel and then the mesentery was divided with the Ligasure device. The May limb was marked witha suture. A 150 cm May limb was measured and approximated to the end of the biliopancreatic limb. Adjacent enterotomies were created with ultrasonic rosibel and a saldana load of the stapler was used to create a zkwg-nd-spfr anastomosis. The common opening was closed with a transverse firing of the stap ler and reinforcement stitches were placed at both [...] piece of stomach was removed through the 12mm port. Once this was completed, the May limb was brought up in the antecolic-antegastric position sewn to the posterior gastric pouch with running 2-0 Surgidac suture. Adjacent enterotomy and gastr otomy were created with ultrasonic rosibel and the purple load of the stapler was used to create a 1.5 cm linear stapled anastomosis. The common opening was closed with a running 2-0 Polysorb suture. An imbricating anterior layer was placed using 2-0 Surgidac to complete the 2-layer anastomosis. Thebowel clamp was placed on the May limb. The endoscope was used to provide air insufflation and a leak test was performed, which was negative for any air leaks and the endoscopic view was normal. Themesenteric defect was then closed behind the May [...] the operating room, and taken to recovery roomin stable condition. Estimated Blood Loss: minimal Specimens: - None Implantable Devices: None Drains: - None Complications: None Dr. Gallegos was scrubbed the entire case. Griselda Gallegos MD [facility]09-23-2024 Nurse Note* Nursing Notes - Andrew Norris RN - 03/23/2024 1:45 PM EDT Patient arrived to PACU 8 from OR . Patient stable and attached to monitors. Bedside report from Dahlia Bahena MD and JADEN Krishnan. Patient turned side to side to remove extra linens. Patient denies nausea, states has moderate pain. VSS. [facility]09-23-2024 Hospital Discharge instructions* Discharge Instructions* Jamel Uriarte MD - 03/23/2024 9:10 AM EDT Reminder about all medications: You may take tablets and capsules whole that are smaller than a dime. All tablets and capsules that are larger than a dime should be split or opened until you are on the Step 3 diet. BARIATRIC SURGERY MEDICATIONS FOR PAIN CONTROL Tylenol (Acetaminophen): you may take brce-nfu-gtnfyyz Tylenol as needed every 6 hours. Do not takemore than 4,000mg in 24 hours because it [...] Miralax twice daily, you may take Milk ofMagnesia as directed on the bottle to assist with constipation. It is also okay to use a suppository to assist with constipation after surgery. Please contact the Bariatric Surgery Clinic if you havenot had a bowel movement 5 days from the day of surgery. TO DECREASE STOMACH ACID AND PREVENT ULCERS Take scheduled anti-acid medication as directed for the first three months (90 days) after surgery to prevent ulcers. Avoid things that can irritate the stomach lining such as Aspirin, Ibuprofen, Aleve, Advil, Motrin,Excedrin, Alcohol, Caffeine or Cigarette smoke (including second-hand [...] pressure will fluctuate while you are losing weightrapidly and your medications may need to be adjusted. If your blood pressure is consistently higherthan 140/90 or the top number is less [...] from your site and increased bruising or alump forms or gets larger under your skin [...] movements. This can be normal after surgery onthe stomach, but should resolve in a day [...] dizziness or feeling unsteady, problems talking, difficulty swallowing,and/or numbness or muscle weakness as these can be signs of a stroke CONTACT INFORMATION During usual business hours 8am-4pm, you may call the Bariatric Surgery Clinic Call Center at [phone]. It is important that you try to contact the Bariatric Surgery Clinic Call Center during morning hours if you feel that you may need to be seen the same day before closing time. After 4pm weekdays and on weekends an urgent need that is not an emergency may be handled by the General Surgery Resident Internal Review And Audit Compliance: Call the hospital erco machine operator at [phone] to ask for the on-call General Surgery Resident to be paged. You may choose to send a [employer] message to your provider for non-urgent questions that can be addressed on the next business day. If you are unable to reach your doctor and it is a medical emergency, dial 911 or report to the nearest Emergency Department for evaluation. LINK: AFTER BARIATRIC SURGERY BOOKLET: (YOU CAN COPY AND PASTE THIS LINK INTO YOUR WEB BROWSER FROMTHE AFTER VISIT SUMMARY IN [employer] IF YOU WANT AN ELECTRONIC COPY OF THE BOOKLET YOU WERE GIVEN IN THE HOSPITAL): [email or web address] Comprehensive Weight Management & Bariatric Surgery * Attachments The following attachments cannot be sent through Care Everywhere. * Home Care for Bray Catheter: Male ([facility]) (Mont[place]grin) * Caring for Your Urinary Catheter: Video (Montenegrin) [facility] History and physical note* Jamel Uriarte MD - 03/23/2024 9:06 AM EDT Perioperative Surgical History and Physical Pre-op diagnoses: [...] level Jamel Uriarte MD PGY-1 Anesthesiology Bariatric ([facility]) Surgery Service Pager: [phone] [facility]09-23-2024 History and physical note* Jamel Uriarte MD - 03/23/2024 9:06 AM EDT Perioperative Surgical History and Physical Pre-op diagnoses: [...] level Jamel Uriarte MD PGY-1 Anesthesiology Bariatric ([place]) Surgery Service Pager: [phone] [facility] History and physical note* Sulma Jose Roberto Plata, INSURANCE SALES SPECIALIST-CYBER DEFENSE FORENSICS ANALYST - 02/25/2024 10:30 AM EDT Images from the original note were not included. PREOPERATIVE ASSESSMENT [facility] Name: Zoie Heath Date of Surgery: 03/23/2024 [...] - after patient had transplant, was told takeit daily. Do you take anti-coagulations? no Beta Matthew: no Patient denies a history of cardiac events or SC. Denies chest pain, palpitation or worsening SOB over the last few months ASSESSMENT AND PLAN- # Functional status - METS: Moderate: 4-7 METS functional status. 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 (Patient taking differently: Take 1 tablet bymouth daily every morning.) Chlorthalidone (THALITONE PO) Take [...] Take 1 packet by mouth Every morning. 2hrsafter all meds Tacrolimus (PROGRAF) 1 MG capsule [...] and Cross -Preadmission URINALYSIS REFLEX TO CULTURE NV ECG, CLINIC PERFORMED Lab A/P - Lab Results Component Value Date SODIUM 135 02/25/2024 POTASSIUM 5.0 02/25/2024 CHLORIDE 102 02/25/2024 CO2 26 02/25/2024 BUN 45 (H) 02/25/2024 CREATSERUM 2.65 (H) 02/25/2024 GLUCOSE 95 02/25/2024 This DEFENSIVE FIRE CONTROL SYSTEMS OPERATOR called patient and notified him of abnormal lab results. Instructed patient to hold Chlorthalidone and Losartan for 2 days, increase water intake and that I will place orders for a repeat labdraw on 02/27/2024 at [facility] near patient's home. I asked patient to reach out to his Feed Mill Manager, Dr. Davey at the [facility] in [place], [place] to regarding lab results. Abnormal results [...] medical notes like these available to patients inthe interest of transparency. However, be advised this is a medical document. It is intended as fgwq-vk-irnt communication. It is written in medical language and may contain abbreviations or verbiagethat are unfamiliar. It may appear blunt or direct. Medical documents are intended to carry relevant information, facts as evident, and the clinical opinion of the practitioner. Timeliner dictation software may have been used to write this note. Please excuse any errors that may have occurred as a result of the dictation. Sulma Plata, INSURANCE SALES SPECIALIST-CYBER DEFENSE FORENSICS ANALYST [facility] The [address] Review of Systems ([facility]) Review of Systems [...] Bilateral; Surgeon: Charley Mccracken MD, PhD; Location: [facility] MAIN OR NEPHRECTOMY 2021 APPENDECTOMY LAPAROSCOPIC N/A 12/26/2019 Laterality: N/A; Surgeon: Rosy Lynn DO; Location: [facility] MAIN OR GASTRECTOMY LONGITUDINAL (SLEEVE) LAPAROSCOPIC N/A 08/10/2019 Laterality: N/A; Surgeon: Griselda Gallegos MD; Location: [facility] SAME DAY SURGERY MAIN OR EGD DIAGNOSTIC N/A 08/10/2019 Laterality: N/A; Surgeon: Griselda Gallegos MD; Location: [facility] SAME DAY SURGERY MAIN OR EGD DIAGNOSTIC N/A 04/24/2019 Laterality: N/A; Surgeon: Nahomy Santos MD; Location: [facility] ENDOSCOPY LAPAROTOMY EXPLORATORY N/A 02/27/2019 Laterality: N/A; Surgeon: Raul Lott MD; [facility] OR HERNIA REPAIR 02/27/2019 REPAIR HERNIA UMBILICAL OPEN W/ MESH N/A 05/09/2017 Laterality: N/A; Surgeon: CORNEL Elizondo; Location: [facility] MAIN OR KIDNEY TRANSPLANT W/O SEMINOLE NEPHRECTOMY N/A 09/25/2016 Laterality: N/A; Surgeon: Jose Shaw MD; Location: [facility] MAIN OR NV ARTHROSCOPY KNEE MENISCAL TRNSPLJ MED/LAT Right 11/12/2014 [...] Practitioner) Coordinator Transplant (Inactive) as PCP - Sap Basis Consultant Roberto Carlos Davey MD as Consulting Physician [...] & ECG findings with Anesthesiologist Dr. Dykes. [facility]08-27-2024 History and physical note* REYES Flores - 02/25/2024 10:30 AM EDT Images from the original note were not included. [facility]ie [facility] Date of Surgery: 03/23/2024 [...] - after patient had transplant, was told takeit daily. Do you take anti-coagulations? no Beta Matthew: no Patient denies a history of cardiac events or SC. Denies chest pain, palpitation or worsening SOB over the last few months ASSESSMENT AND PLAN- # Functional status - METS: Moderate: 4-7 METS functional status. 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 (Patient taking differently: Take 1 tablet bymouth daily every morning.) Chlorthalidone (THALITONE PO) Take [...] Take 1 packet by mouth Every morning. 2hrsafter all meds Tacrolimus (PROGRAF) 1 MG capsule [...] and Cross -Preadmission URINALYSIS REFLEX TO CULTURE NV ECG, CLINIC PERFORMED Lab A/P - Lab Results Component Value Date SODIUM 135 02/25/2024 POTASSIUM 5.0 02/25/2024 CHLORIDE 102 02/25/2024 CO2 26 02/25/2024 BUN 45 (H) 02/25/2024 CREATSERUM 2.65 (H) 02/25/2024 GLUCOSE 95 02/25/2024 This DEFENSIVE FIRE CONTROL SYSTEMS OPERATOR called patient and notified him of abnormal lab results. Instructed patient to hold Chlorthalidone and Losartan for 2 days, increase water intake and that I will place orders for a repeat labdraw on 02/27/2024 at [place] [facility] near patient's home. I asked patient to reach out to his Feed Mill Manager, Dr. Davey at the [place] in [place], [place] to regarding lab results. Abnormal results [...] medical notes like these available to patients inthe interest of transparency. However, be advised this is a medical document. It is intended as [id number] communication. It is written in medical language and may contain abbreviations or verbiagethat are unfamiliar. It may appear blunt or direct. Medical documents are intended to carry relevant information, facts as evident, and the clinical opinion of the practitioner. Timeliner dictation software may have been used to write this note. Please excuse any errors that may have occurred as a result of the dictation. Sulma Plata, INSURANCE SALES SPECIALIST-CYBER DEFENSE FORENSICS ANALYST [facility] [address] [facility] Review of Systems (OSUROS) Review of [...] Surgeon: Charley Mccracken MD, PhD; [facility] NEPHRECTOMY 2021 APPENDECTOMY LAPAROSCOPIC N/A 12/26/2019 Laterality: N/A; Surgeon: Rosy Lynn DO; [facility] GASTRECTOMY LONGITUDINAL (SLEEVE) LAPAROSCOPIC N/A 08/10/2019 Laterality: N/A; Surgeon: Griselda Gallegos MD; [facility] MAIN OR EGD DIAGNOSTIC N/A 08/10/2019 Laterality: N/A; Surgeon: Griselda Gallegos MD; [facility] MAIN OR EGD DIAGNOSTIC N/A 04/24/2019 Laterality: N/A; Surgeon: Nahomy Santos MD; [facility] ENDOSCOPY LAPAROTOMY EXPLORATORY N/A 02/27/2019 Laterality: N/A; Surgeon: Raul Lott MD; [facility] MAIN OR HERNIA REPAIR 02/27/2019 REPAIR HERNIA UMBILICAL OPEN W/ MESH N/A 05/09/2017 Laterality: N/A; Surgeon: CORNEL Elizondo; [facility] MA[facility] OR KIDNEY TRANSPLANT W/O SEMINOLE NEPHRECTOMY N/A 09/25/2016 Laterality: N/A; Surgeon: Jose Shaw MD; [facility] MA[facility] OR NV ARTHROSCOPY KNEE MENISCAL TRNSPLJ MED/LAT Right 11/12/2014 [...] Practitioner) Coordinator Transplant (Inactive) as PCP - Sap Basis Consultant Roberto Carlos Davey MD as Consulting Physician [...] with Anesthesiologist Dr. Dykes. documented in this [facility] Instructions* Patient Instructions* Della Purdy LPN - 02/25/2024 10:30 AM EDT PRIOR TO SURGERY INSTRUCTIONS Please follow these instructions prior to surgery to help us minimize delays and complications to your surgery THE FOLLOWING MEDICATIONS LABS, STUDIES, AND CONSULTATIONS WERE ORDERED TODAY: Orders Placed This Encounter CBC, EDIF, PLATELET COMPREHENSIVE METABOLIC PANEL Type and Cross -Preadmission NV ECG, CLINIC PERFORMED PREOPERATIVE MEDICATION INSTRUCTIONS Below are instructions for what to do with your medicines before your surgery/procedure. Take the medications marked take the morning of surgery/procedure with a sip of water. Please follow this table below for instructions on which medications to hold prior to surgery If you have a change in daily medications prior to surgery/procedure, call the [facility] Clinic at [phone]. Current Outpatient Medications Medication Sig Instructions: Alclometasone [...] daily. (Patient taking differently: Take 1 tablet bymouth daily every morning.) Take morning of surgery. [...] by mouth as needed for Erectile Dysfunction. Donot take morning of surgery Sodium Zirconium Cyclosilicate (Lokelma) 5 g Pack powder Take 1 packet by mouth Every morning. 2hrsafter all meds Do not take morning of [...] as, but not limited to, fish oil ([place]-3), garlic,glucosamine -chondroitin, gingko, ginseng, probiotics, or multivitamins) 2 [...] (CHG) before your surgery. Your nurse has givenyou CHG soap today and written instructions; Getting [...] and taking longer to wake up from a nesthesia. If you do have a diagnosis of obstructive sleep apnea, we ask you to bring your own CPAP/Autopap orany machine/devices you use for the treatment of [...] hairpieces, makeup, dentures, glasses or contact lenses onday of surgery. Do not wear artificial nails or nail georgian the day of surgery. Do NOT bring [...] site for 48 hours prior to surgery. Darby your teeth and rinse your mouth the [...] your scheduled surgery, please notify our team (OPAC clinic)and your surgeon's office. You may need to have your surgery moved, as we would not want to put youat risk for complications, You MUST arrange for a responsible adult to drive you to your procedure, stay for the surgery, listen to discharge instructions, and drive you home after surgery, otherwise your surgery may be cancelled. SURGERY LOCATIONS [facility] [address] [address] Parking: Oncology Social Work or [employer] Phone-Main OR [phone]-Ask for the Surgery Department Please call for any questions, delay of arrival, cancellation, or illness on the day of surgery. [facility] [address] [facility] 1st Floor Surgery Center [place], [place] [address] Please call for any questions, delay of arrival, cancellation, or illness on the day of surgery. [facility] [address] [place], [place] [address] Please call for any questions, delay of arrival, cancellation, or illness on the day of surgery. [facility] [place] [address] [place], [place] [address] Please call for any questions, delay of arrival, cancellation, or illness on the day of surgery. PLEASE BRING YOUR MEDICATIONS WITH YOU IN THE ORIGINAL BOTTLES, ON THE DAY OF SURGERY. [facility] [address] [place] [address] Please call for any questions, delay of arrival, cancellation, or illness on the day of surgery. PLEASE BRING YOUR MEDICATIONS WITH YOU IN THE ORIGINAL BOTTLES, ON THE DAY OF SURGERY. [facility] [address] [place], [place] [address] Please call for any questions, delay of arrival, cancellation, or illness on the day of surgery. [facility] [address] [place], [place] [address] Please call for any questions, delay of arrival, cancellation, or illness on the day of surgery. [facility] Preoperative Testing Clinic [place] [phone] AVS/EEH documented in this encounterMarietta [facility]08-[facility] History of Present illness Narrative* Bina Angel Sudeep, RD - 02/20/2024 11:30 AM EDT Pre-Operative Diet Education Met with Zoie who [...] carb meal replacement shakes to help reduce liver- volume for surgery. Encouraged him to use non-starchy [...] motivation to learn and/or adhere to recommendations Labels Molder resource utilized: No Spent 10 minutes with patient [id number] providing nutrition assessment and/or counseling/education Bina Sheets, MS, RDN, LD documented in this encounterU [facility] History of Present illness Narrative* Anca Sam RN - 02/20/2024 11:00 AM EDT Surgeon Pre-operative Visit: Bariatric Surgery Nurse Education [...] surgical consent 3 [x] 1. Introduced to [facility] Nursing Clinical Care Management and call triage process. The outpatientregistered nurse team assists with patient care and calls to the department through the Call Centerand MY Chart. 2. RN's in the clinic support physician and Nurse Practitioner office care. Discussed that messagessent to a Provider are seen at multiple levels, and may default to the nursing team that supports that individual. The nurse will respond to the messages. He/she may also forward it on to a DEFENSIVE FIRE CONTROL SYSTEMS OPERATOR and orthe surgeon, or dietitian, as appropriate. 4 [x] 1. Identified location of surgery as [address] [place] [address] with arrival location at the main hospital entrance at Registration. Advised: 2. Preregistration - The hospital will call to pre-register patients for surgery. For patients thathave not been called within 2 days of the surgery date, they should call Preregistration at [phone] or [phone]. Patients with MYChart should log in to [...] plan is drafted in final preparation for surgeryincluding: A. Type and cross-match for blood B. [...] is required in order to have confirmation ofcontinued use, dosage, and effect. 8 [x] 1. Discussed wearing and use of abdominal binder to be received in- patient. If binder is uncomfortable, may also use [...] in case they don't like the [facility] provided shakes. 10 [x] 1. Discussed having [...] straw which is not to be used aftersurgery) 12 [x] Regarding DEMI, reminded to bring [...] 1 month of surgery. 2. Offered [facility] resources as needed. [facility] Internal Medicine accepts patients in attending clinic and residents clinic. Call 15 [x] 1. Pre-Surgery Drink: Reviewed and instructed on the use of the pre- surgery drink to be usedthe night before and the morning of surgery. This information is included in the Having Bariatric Surgery Book and other individual booklets/handouts that may be received today from the RN and the Mario Alberto parrish. 2. Advised that the surgical drink is used to decrease hunger, thirst, and nausea before surgery and to improve recovery after surgery. The Dietitian will provide additional instructions if the patient is diabetic. 16 [x] 1. Incentive Spirometer: Completed education on How to Use an Incentive Spirometer/BreathingExerciser. [facility] Patient Education information sheet included in clinic pre-op bag. 2. Reviewed use of a pillow to splint the abdomen for coughing and deep breathing. 17 [x] Reinforced the importance of calling surgery procedural scheduling at [phone] for thedevelopment of any untoward symptoms such as a cold, new infection, etc. That might develop before surgery. A surgery may be cancelled up to and including the day of surgery for any pt with symptomatic contraindications to surgery. 18 [x] Advised to bring cell phone and polysomnograph tech on the day of surgery. (Patients can [...] Living Will and Health Care Power of Power Plant Supervisor forms (if you have them). G. Your cell phone and polysomnograph tech. Your phone will be used as a [...] at the 1st post op visit within 2weeks of discharge. The [place] CYBER DEFENSE FORENSICS ANALYST will then see the patient at subsequent post-operativevisits of 1 month, 2 months, 6 months, then annually. 2. Reviewed importance to be seen annually by a bariatric technical documentation specialist and to have a nutritional lab review annually so that specific nuances of bariatric care are addressed. 21 [x] 1. Discussed ability to obtain lab draw pre-visit for the 6 month and annual visits. Patientis to contact the office if he/she chooses [...] shrink diet review and post op diet * Griselda Gallegos MD - 02/20/2024 11:00 AM EDT Subjective: Zoie Heath is a 58 y.o. [...] Bilateral; Surgeon: Charley Mccracken MD, PhD; Location: [facility] MAIN OR NEPHRECTOMY 2021 APPENDECTOMY LAPAROSCOPIC N/A 12/26/2019 Laterality: N/A; Surgeon: Rosy Lynn DO; Location: [facility] MAIN OR GASTRECTOMY LONGITUDINAL (SLEEVE) LAPAROSCOPIC N/A 08/10/2019 Laterality: N/A; Surgeon: Griselda Gallegos MD; Location: [facility] SAME DAY SURGERY MAIN OR EGD DIAGNOSTIC N/A 08/10/2019 Laterality: N/A; Surgeon: Griselda Gallegos MD; Location: [facility] SAME DAY SURGERY MAIN OR EGD DIAGNOSTIC N/A 04/24/2019 Laterality: N/A; Surgeon: Nahomy Santos MD; [facility] ENDOSCOPY LAPAROTOMY EXPLORATORY N/A 02/27/2019 Laterality: N/A; Surgeon: Raul Lott MD; [facility] MAIN OR HERNIA REPAIR 02/27/2019 REPAIR HERNIA UMBILICAL OPEN W/ MESH N/A 05/09/2017 Laterality: N/A; Surgeon: CORNEL Elizondo; [facility] MAIN OR KIDNEY TRANSPLANT W/O SEMINOLE NEPHRECTOMY N/A 09/25/2016 Laterality: N/A; Surgeon: Jose Shaw MD; [facility] MA[facility] OR NV ARTHROSCOPY KNEE MENISCAL TRNSPLJ MED/LAT Right 11/12/2014 [...] lb) SpO2 98% BMI 37.59 kg/m Smoking StatusFormer Body mass index is 37.59 kg/m . [...] informed of their options that included continued, non- operative medical management. We spent 20 Minutes discussing [...] open operation, wound complications such as infections andhernias, strictures in the pouch, nutritional problems including low iron, B12, calcium, and others, gall stones, body image issues related to loose skin, internal hernias, marginal ulcers (shouldn'tsmoke or take NSAIDs), watch consumption of alcohol, and other rare non-discussed complications We discussed that our goal is to ameliorate reflux and not to obtain a specific body mass index. Heunderstands the risks and benefits and wishes to proceed with the procedure. The consent was signed. He will see our concrete boom operator prior to starting the 3 week liver [...] Opioid therapy will be considered last-line for uncontrollablepain: yes 3. PONV: The patient was educated that nausea control will be managed by a protocol that includes preoperative prophylaxis with a scopolamine patch, intraoperative treatment of zofran/phenergan and Dexamethasone, and post- operative symptom control: yes 4. The patient will [...] drink 2 hours prior to the scheduled surgicaltime: yes 7. The patient was instructed to [...] leaving this visit: yes documented in this encounterU [facility] Instructions* Patient Instructions* Lidia Rosenthal - 02/20/2024 11:00 AM EDT BEFORE SURGERY: PRE-PROCEDURE PREPARATION (COMPAC) Date: 03/09/24 Call Time: 11:30 am Patients who are scheduled for a surgical or other procedure at [facility] may be required to complete a pre-operative phone/video call. A nurse will collect information about your health, fitness, previous operations, allergies and more. This helps prepare the surgeon, the anesthesiologist and youby identifying any potential anesthetic, surgical or post-operative complications. If applicable, you may be referred to undergo an electrocardiogram (ECG), blood or urine tests or other tests. You will also receive pre- and post-surgery instructions to help ensure you are completely informedabout what to expect. [facility] ([facility]) Date: 02/25/24 Arrival Time: 10:15 am Located at: [facility] [address] - 1st floor [address] [facility], [address] [place] [address] PLEASE REGISTER ON THE 1ST FLOOR [place] Please allow 2 hours for your OPAC appointment. Your physician has chosen to send you to the OPAC to have your preoperative testing completed. The OPAC is a single site that will help coordinate your preoperative needs and provide you with the information and education you need prior to your surgery. This could include tests and assessments suchas: Medical history and physical examination EKG Blood [...] to discuss with the doctor or nurse [facility] doctors and staff are educators [...] to surgery, please contact our office at [phone] Please note that this schedule is subject to change, you may be contacted up to 24 hours in advanceof surgery for any necessary adjustments. This may include an arrival time as early as 5:00 AM. Please plan accordingly. [x] SURGERY SCHEDULE YOUR SURGERY DATE: 03/23/24 ARRIVAL TIME: You will receive an automated call 24-48 hours prior to surgery please call if you do [place] [address] [place] in [address], Patient Admissions (1st room on the right) Office #: [phone] Fax #: [phone] CURRENT COVID VISITOR POLICY: These visitor policy [...] service home, an adult, other than the otr flatbed company truck driver, needs to ride with you for your safety. This person will also be responsible for communicatingpost-operative instructions to you. If you would like to sign up for text messages for [facility] appointment reminders text [facility] TO [phone].You will receive a response within a few [...] them before a surgery can also increase thechance of bleeding. Apixiban (Eliquis) Clopidogrel (Plavix) Dabigatran [...] your surgery to prevent problems. Use this listas a guide. If you are not sure [...] the hospital. Do not wear makeup, nail georgian or hair pins to the hospital. Please [...] a living will or durable power of contract attorney, please bring a copy of the documents [...] You will need 2 of the 4-ounce bottlesor Hibiclens Foam wash. There may be a [...] to the part on your body where thesurgery will be done. Be sure to wash [...] the shower, do a sponge bath each time.Do not wash your hair unless you are [...] your doctor s office. Driving Directions to [facility] From the North ([place], [place] and [place]) Take any major highway to [place] [address] to the [address] exit Turn left onto [address] ([place] turns into [employer] [place]) Take [employer] [place] to [employer] Turn left onto [employer] [address] Turn left onto [address] Turn right onto [facility] [address] [facility] See Parking Directions - Continued From the South ([facility] and [place]) Take any major highway to [address] to [address] to the [address] exit Turn right onto [address] Turn right onto [address] [place] Turn left to stay on [address] [place] Turn left onto [address] Turn left onto [address] Turn right onto [address] See Parking Directions - Continued From the East ([place], [place] and [place]) Take any major highway to [address] to the [address] exit Turn right onto [address] Turn right onto [address] [place] Turn left to stay on [address] [place] Turn left onto [address] Turn left onto [address] Turn right onto [address] See Parking Directions - Continued From the West ([place], [place] and [place]) Take any major highway to [address] to [address] to the the [address] exit Turn right onto [address] Turn right onto [address] [place] Turn left to stay on [address] [place] Turn left onto [address] Turn left onto [address] Turn right onto [address] See Parking Directions - Continued Parking Directions - Continued Patient Oncology Social Work Continued: Take [address] past the intersection of [address] and [address]. Continue straight to the front of [facility] Pull into Patient Oncology Social Work on your right. [employer] [address] [facility] [place] [address] Continued: From [address], turn left onto [facility]. The [employer] is located on the left and is connected to the medical center by a walkway bridge on the second fl oor. [address] [place] [address] Continued: Take [address] to [address] [...] an authorization prior to the procedure. Our pre- cert office will be contacting your insurance to see if authorization is required. If you have questions about how much your insurance will pay, please contact your insurance directly. Please be prepared to pay your co-pay, co- insurance, or deductible on the day of your surgery. We request patients with insurance that is less than 100% coverage to pay a deposit prior to the procedure being performed. A real estate representative from the [facility] will contact you to pre-register you for your services. If you have not received a call by two days prior to your procedure date, please call our Pre-Registration Department at [phone] or [phone]. By calling us in advance, your wait time will be reduced. Our trained representatives can assist you in discussing both your physician and hospital obligations. Are you a [employer] user? If yes, you can log on and complete a pre-registration questionnaire. Credit Card Associate: You are not eligible for Financial Assistance if you are entering the [facility] solely to seek medical treatment. We want to make sure all patients have access to quality healthcare services at [facility], and we are committed to [...] an assistance program. Our financial counselors can helpyou complete applications for government-sponsored programs, describe other financial assistance programs that can help offset costs, or structure workable payment plans for your required medical treatment if you meet certain financial criteria. They can also assist you in explaining your options related to the Affordable Care Act. These options include helping you apply for: [place] Medicaid (if your income meets guidelines) The Affordable Care Act Insurance Exchange Program. Other federal/state assistance programs Or establish a payment plan Other Assistance: [facility] offers an additional sliding scale [...] please contact the Financial Counseling Department at [phone] between 8 a.m. and 5 p.m. weekdays. A financial counselor can assist you with the application process. You will be screened for all potential programs. If you appear to beeligible for Medicaid, you will be assisted through the application process. As a Medicaid recipient, your physician fees and facility fees could be covered. Services not covered by [facility] financial assistance program: Physician Fees Transportation fees Dental Services Medically unnecessary services Prescriptions Durable Medical Equipment We Are 100% Tobacco-Free At The [facility], we care about the health of our patients, visitors andstaff. That s why all of our locations - inside and outside - are 100% tobacco-free. We understand that nicotine is addictive, and we regret the inconvenience to tobacco users. However, as an academic [facility] with leading cancer and [facility] hospitals, creating a healthy environment for everyone who attends, works and visits our [facility] is important. documented in this encounterM[facility]07-17-[facility]24 History of Present illness Narrative* Viet Parker LPN - 01/15/2024 11:00 AM EDT Nurse Note: Review of Systems Constitutional: Negative [...] Psychiatric/Behavioral: Negative for sleep disturbance. Nursing Assessment: * Rodrigo Saravia MD - 01/15/2024 11:00 AM EDT Subjective History of Present Illness 58 year old white male with past medical history status post kidney transplant on 09/25/16 due to polycystic kidney disease, restless leg syndrome, former smoker with last use 24 years ago, HTN, immunosuppression, obesity, hyperparathyroidism, allergies, depression, ckd III, anxiety, and status lapar oscopic sleeve gastrectomy in 08/10/2019 presenting for obesity [...] change (3 pound gain). Negative for activity change,appetite change, chills, diaphoresis, fatigue and fever. HENT: Negative for congestion, ear discharge, ear pain, facial swelling, mouth sores, postnasal drip, rhinorrhea, sinus pressure, sinus pain, sore throat, tinnitus, trouble swallowing and voice change. Eyes: Negative for redness and itching. Respiratory: Negative for apnea, cough, choking, chest tightness, shortness of breath, wheezing andstridor. Cardiovascular: Positive for leg swelling. Negative for chest pain and palpitations. Gastrointestinal: Negative for abdominal distention, abdominal pain, anal bleeding, blood in stool,constipation, diarrhea, nausea, rectal pain and vomiting. Endocrine: [...] Patient would be a candidate for weight losssurgery due to hypertension, chronic kidney disease, obesity, [...] refer to physical therapy documented [facility] this [facility]07-17-[facility] Instructions* Patient Instructions* Rodrigo Saravia MD - 01/15/2024 11:00 AM EDT Morbid obesity with uncontrolled GERd. Patient failed diet and exercise . Gained 4 pounds in last month. Patient due to foot pain unable to exercise hard. Patient would be a candidate for weight losssurgery due to hypertension, chronic kidney disease, obesity, [...] refer to physical therapy documented in this [facility]06-26-2024 History of Present illness Narrative* Olinda Chapman - 12/25/2023 8:30 AM EDT This MA verified the patients name and date of . * Cait Richardson MD - 12/25/2023 8:30 AM EDT Zoie Heath is a 58 y.o. male [...] decreased GFR, Depression (2010), Diverticulosis, Dry skin, ESRDon dialysis (02/22/2011), Fatigue, GERD (gastroesophageal reflux disease), Hyperparathyroidism, secondary renal, Hyperphosphatemia, Inguinal hernia, Insomnia, Kidney transplant recipient, Migraine, Night muscle spasms, Obesity (BMI 30-39.9), Obesity, Class III, BMI 40-49.9 (morbid obesity) (01/29/2019), DEMI on CPAP, Osteoarthritis of knee, Polycystic kidney disease (1999), Snoring, and Umbilical hernia. Past Family History family history includes Alzheimer's in his maternal grandmother; Diabetes in his father and sister;Hypertension in his mother; Kidney Disease in his mother; Other - Specify in his maternal grandfather. Past Social History He reports that he quit smoking about 24 years ago. His smoking use included cigarettes. He startedsmoking about 41 years ago. He has a [...] graft (Left, 2009); tonsillectomy; kidney transplant w/o shoshone-bannock nephrectomy (N/A, 09/25/2016); pr arthroscopy knee meniscal [...] 11.2 oz). His blood pressure is 122/68 andhis pulse is 60. His oxygen saturation is [...] 2. Ordering autotitrating CPAP. He will use [employer]. He understands that untreated DEMI is associated with heart failure, atrial fibrillation, strokes, HTN, and impaired glucose tolerance. 3. He should avoid respiratory suppressants as these can worsen sleep disordered breathing. 4. He should never drive if drowsy and should hook puller at a safe place if he [...] and watch his diet. documented in this encounterMari[facility]06-26-2024 Instructions* Patient Instructions* Cait Richardson MD - 12/25/2023 8:30 AM EDT [employer] 4.7(942) [facility] care service [address] [place] [address] DEMI Education: You have obstructive sleep apnea [...] and become drowsy or sleepy, you should hook puller to a safe place. Below are our drowsy driving tips. PAP Machine Care: You should clean your PAP regularly (see your PAP sanding machine buffer site for more details) Daily cleaning 1. [...] dish soap. Swirl equipment for at least 5minutes. Rinse well and air dry. Hang hose [...] and exercise program that can be maintained retirement. The [facility] does have a Living Well Program to help patients achieve their weight loss goals in a healthy and safe manor. This consists of a 6 month program that focuses on weight loss, nutrition, stress management and exercise. [email or web address] vin-[facility] First floor of the [place] [address] For more information please call [phone]. documented in [facility] History of Present illness Narrative* Snehal Inman LPN - 12/04/2023 11:00 AM EDT * Snehal Inman LPN - 12/04/2023 11:00 AM EDT Nurse Note: Review of Systems Constitutional: Negative [...] bariatric surgery. Paperwork has been faxed over. * Rodrigo Saravia MD - 12/04/2023 11:00 AM EDT Subjective History of Present Illness 58 year old white male with past medical history status post kidney transplant on 09/25/16 due to polycystic kidney disease, restless leg syndrome, former smoker with last use 24 years ago, HTN, immunosuppression, obesity, hyperparathyroidism, allergies, depression, ckd III, anxiety, and status lapar oscopic sleeve gastrectomy in 08/10/2019 presenting for obesity [...] Has mid chest burning with burning in backof throat with nausea and foul taste in [...] 46. Normal liver function. Normal white blood cell8.38, hemoglobin 12.2, hematocrit 37.8 and platelet count [...] choking, chest tightness, shortness of breath, wheezing andstridor. Cardiovascular: Positive for leg swelling (unchanged leg swelling). Negative for chest pain and palpitations. Gastrointestinal: Negative for abdominal distention, abdominal pain, anal bleeding, blood in stool,constipation, diarrhea, nausea, rectal pain and vomiting. Endocrine: [...] heart disease, diabetes, etc. documented in this [facility]06-05-2024 Instructions* Patient Instructions* Rodrigo Saravia MD - 12/04/2023 11:00 AM [...] heart disease, diabetes, etc. documented in this [facility]06-05-2024 Procedure note* Rodrigo Saravia MD - 12/04/2023 11:00 AM EDTAssociated Order(s): EAR CERUMEN REMOVAL Post-Procedure Diagnose(s): Right ear impacted cerumen EAR CERUMEN REMOVAL Date/Time: 12/04/2023 11:00 AM Performed by: Rodrigo Saravia MD Authorized by: Rodrigo Saravia MD Procedure: Visualization: otoscopy Impaction noted: yes Location details: Right ear Procedure type: curette Patient tolerance: Tolerated well, no immediate complications [facility]06-05-2024 Procedure note* Rodrigo Saravia MD - 12/04/2023 11:00 AM EDTAssociated Order(s): EAR CERUMEN REMOVAL Post-Procedure Diagnose(s): Right ear impacted cerumen EAR CERUMEN REMOVAL Date/Time: 12/04/2023 11:00 AM Performed by: Rodrigo Saravia MD Authorized by: Rodrigo Saravia MD Procedure: Visualization: otoscopy Impaction noted: yes Location details: Right ear Procedure type: curette Patient tolerance: Tolerated well, no immediate complications documented in this [facility]05-17-[facility] History of Present illness Narrative* Justice Knight - 11/15/2023 3:40 PM EDT Encounter for [facility] Home Sleep Apnea Test Patient has completed home sleep testing through [facility]. The data has been reviewed and sent to the interpreting physician. documented in this encounterMarietta [facility] Hospital05-17-2024 History of Present illness Narrative* Justice Knight - 11/15/2023 3:40 PM EDT Encounter for [facility] Home Sleep Apnea Test Patient has completed home sleep testing through [facility]. The data has been reviewed and sent to the interpreting physician. documented in this encounterMarietta [facility] Hospital05-10-2024 History of Present illness Narrative* Justice Knight - 11/08/2023 10:45 AM EDT Images from the original note were not included. HSAT ordered by Liza Penn during office visit on 09/30/2023 DX - DEMI Previously DX. Please review. * Talat Carbajal MD - 11/08/2023 10:45 AM EDT I reviewed the request for the sleep study. The patient was evaluated by the requesting provider and the indication for the study is appropriate. I concur with the planned study. Additional information for the sleep study include: none Talat Carbajal M.D. Professor of Internal Medicine and Neuroscience Division of Pulmonary, Allergy, Critical Care, and Sleep Medicine Director, Sleep Disorders Center [facility] FAX: [phone] Email: [email or web address] documented in this encounterOS[facility] History of Present illness Narrative* Hetal Willis RN - 09/30/2023 2:00 PM EDT Presents for surgical weight management evaluation. Is [...] strength training 2-3 days per week for 60- 90 minutes. New Patient Bariatric SURGERY Consult Visit. [...] Screening Assessment completed [x] Yes [] No DEFENSIVE FIRE CONTROL SYSTEMS OPERATOR vs MD Visit General Visit Information: Reinforced instruction on the following as needed: 1. Pt instructed to consider self as an applicant for surgery. Pt will become a candidate for surgery when all initial Providers (DEFENSIVE FIRE CONTROL SYSTEMS OPERATOR/RD/Psychologist) have approved the patient to move forward. 2. Notified that all bariatric surgeries are elective. Instructed that will see either medical records analyst or INSURANCE SALES SPECIALIST-CYBER DEFENSE FORENSICS ANALYST today. Currently, RD and Psychologist may both be completed remotely for initial evaluation of surgical requirements if not already completed. 3. Will see Surgeon MD at a pre-operative visit after completing surgery requirements. 4. Expect that a Financial Public Administration Professor will be in contact within the next 2 weeks and will assist with insurance requirements and programming navigation. The coordinator will follow the pt from the point of contact through surgical approval and scheduling. 5. Testing plan: If a Lab draw is requested today, it will be completed in the [facility] lab. [facility]. Done if none has been completed within the last 6 months, or if otherwise indicated. Call Center Instruction: 1. There are no direct department calls. When calling the office ([phone]), the Call Center staff will notify the appropriate parties. 2. Encouraged the use of MY Chart and assisted with set up as needed. 3. Instructed and demonstrated as needed: sign up for [facility] [phone] text message appointment reminders as applicable. 4. Reminded that the clinic office is open for calls M-F between 8:00am and 3:30pm. There is a Bariatric Surgery resident technical publications writer after this at [phone] Pt has 24 hour 7 days per week access to assistance. Assigned Clinic RN Instruction: An assigned clinic nurse will follow pt care along with today's Provider as of this date and throughout pre and postoperative care. A nurse is generally the initial person to receive the MY Chart andCall Center messages for the physicians and DEFENSIVE FIRE CONTROL SYSTEMS OPERATOR's. These messages are triaged and answered by the nurse and forwarded on to a Provider as needed. Lab review process 1. Pt may see testing results in MYCHART. In general, pts will receive a call, [employer] message, or letter from the Provider after all testing orders from today are resulted. 2. Instructed regarding subsequent routine labs which are done at 6 months and annually. Pt may contact the office 2 weeks before an appt to have their lab orders for the future appointment placed sothat results can be reviewed at the point of care, rather than retrospectively. Pts need to call with the name of the facility or Provider and a fax number to have the order placed. Language Preference [x] Montenegrin [] Other: Badge Number of Labels Molder: Orientation [x] Oriented to room and space as needed Stated understanding of educational instructions provided today. Additional questions answered. [x]Yes [] No If no, additional questions answered: 1. 2. 3. * Liza Penn, INSURANCE SALES SPECIALIST-CYBER DEFENSE FORENSICS ANALYST - 09/30/2023 2:00 PM EDT [facility] Surgical Weight Management Evaluation Note CC: New Patient (Presents for surgical weight management evaluation. Is interested in a revision. Psych eval has been completed. He was Negative for DEMI. NC is 18. Highest reported weight is 250# andlowest adult weight was 193#. He is currently [...] an opportunity to review, discuss, and sign ourbariatric surgery patient agreement. PCP: Geovanna Miranda Reviewed weight history, goals, desired surgery, occupation & post operative support Goal weight/Surgery goals: to resolve GERD/severe reflux; weight goal 180 - 185 lbs. Weight issues date back to: early adult years - after leaving the [employer] & they have tried the following to lose weight: bariatric surgery (sleeve). phentermine (Adipex/Lomaira) - limited in dosingdue to kidney disease / s/p renal transplant; couldn't use top or Well due to renal fxn. 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 Social [...] urinary frequency, urinary incontinence, and history of kidneystones; Advocates: kidney disease / s/p renal transplant [...] 4.8 oz) SpO2 98% Comment: roomair BMI 35.91kg/m Smoking Status Former Body mass index is [...] Psychiatric: Affect appropriate for situation. Assessment: Zoie Jose Roberto Heath is requesting consideration for is interested in gastro- jejunostomy to treat their obesity with common related [...] Insurance/Program Requirements per our Program Financial Public Administration Professor. All patients will be checked for nicotine/cotinine [...] can get need to use effective contraception pre- operatively, cannot have surgery sooner than 12 months [...] surgery increases risk for stricture and ulcer. [facility]'s Bariatric Surgery website is here: [email or web address] Link to watch [facility] Bariatric Surgery info session is here: [email or web address] Link to watch Dr. Santos's interview with a patient is here: [email or web address] Phone numbers for scheduling [facility] [phone]. [facility] (pulmonary consult, sleep studies, sleep consult): [phone]. EGD [phone], option 2. Comprehensive Weight Management Nurse Practitioner, Dietitian, Psychologist or Frit Maker appointments: [phone]. REYES Massey, with surgeons Griselda Gallegos, Maikel Frank, Schuyler [...] and specifically pre-op weight management for revision * FRANCISCO Scott - 09/30/2023 2:00 PM EDT 12 Lead ECG performed per provider's order, per policy. Sign off provided by REYES Peña. Tracing to be scanned into IHIS. documented in this encounterMarietta [facility] Hospital12-05-2023 Nurse Surgical operation note* Rufino Sánchez RN - 2023 11:20 AM EST MD armando to DC. IV removed. DC teaching reviewed. Pt declines help getting dressed. Family present. [facility]12[facility] Nurse Note* Rufino Sánchez RN - 2023 11:20 AM EST MD armando to DC. IV removed. DC teaching reviewed. Pt declines help getting dressed. Family present. documented in this encounterMarietta [facility] Hospital12-05-2023 Nurse Note* Nursing Notes - Alex Rascon RN - 2023 9:41 AM EST Sedation vitals and monitoring provided by anesthesia. [facility]12-05-[facility]23 Miscellaneous Notes* Nursing Notes - Alex Rascon RN - 2023 9:41 AM EST Sedation vitals and monitoring provided by anesthesia. * Nursing Notes - Cecily Prieto RN - 2023 9:30 AM EST Bergeron teaching done with pt. He has been off of PPI x 1 week and has no stated nickel allergy. Pt states his worst symptoms are reflux and heartburn. He was taught how to record these, plus meals andsleep. Pt voices understanding. Box was given to return recorder via UPS. documented in this encounterMarietta [facility] Hospital12-05-2023 History and physical note* Jayshree Mckeon MD - 2023 9:30 AM EST ENDOSCOPIC PREPROCEDURE HISTORY AND PHYSICAL HISTORY OF PRESENT ILLNESS: Zoie Heath is a 58 y.o. male seen in the pre-procedure area at [facility]. The indicationfor endoscopic evaluation includes: Gastroesophageal reflux disease without [...] Bilateral; Surgeon: Charley Mccracken MD, PhD; Location: [facility] MAIN OR NEPHRECTOMY 2021 APPENDECTOMY LAPAROSCOPIC N/A 12/26/2019 Laterality: N/A; Surgeon: Rosy Lynn DO; Location: [facility] MAIN OR GASTRECTOMY LONGITUDINAL (SLEEVE) LAPAROSCOPIC N/A 08/10/2019 Laterality: N/A; Surgeon: Griselda Gallegos MD; Location: [facility] SAME DAY SURGERY MAIN OR EGD DIAGNOSTIC N/A 08/10/2019 Laterality: N/A; Surgeon: Griselda Gallegos MD; Location: [facility] SAME DAY SURGERY MAIN OR EGD DIAGNOSTIC N/A 04/24/2019 Laterality: N/A; Surgeon: Nahomy Santos MD; Location: [facility] LAPAROTOMY EXPLORATORY N/A 02/27/2019 Laterality: N/A; Surgeon: Raul Lott MD; Location: [facility] MAIN OR HERNIA REPAIR 02/27/2019 REPAIR HERNIA UMBILICAL OPEN W/ MESH N/A 05/09/2017 Laterality: N/A; Surgeon: CORNEL Elizondo; Location: [facility] MAIN OR KIDNEY TRANSPLANT W/O SEMINOLE NEPHRECTOMY N/A 09/25/2016 Laterality: N/A; Surgeon: Jose Shaw MD; Location: [facility] MAIN OR NV KNEE SCOPE, MENISC TRANSPLANT Right 11/12/2014 right [...] ..Please obtain future renewals of this prescription fromyour primary care provider. CALCIUM CITRATE PO 1,200 [...] directed as needed. Apply to affected area 1-2times daily when skin flared), Disp: 45 g, [...] Take 2 tablets daily in the morning and3 tablets daily in the evening), Disp: 150 [...] twice daily --> okay to use every daywithout breaks if needed (Patient taking differently: Apply [...] affected area (feet) twice daily (Patient taking differently:Place 1 Application on skin As directed as [...] using Monitored Anesthesia Care. Schuyler Sparks MD [facility] Work Phone: 1(259) 390-188012-05-2023 History and physical note* Jayshree Mckeon MD - 2023 9:30 AM EST ENDOSCOPIC PREPROCEDURE HISTORY AND PHYSICAL HISTORY OF PRESENT ILLNESS: Zoie Heath is a 58 y.o. male seen in the pre-procedure area at [facility]. The indicationfor endoscopic evaluation includes: Gastroesophageal reflux disease without [...] Bilateral; Surgeon: Charley Mccracken MD, PhD; Location: [facility] MAIN OR NEPHRECTOMY 2021 APPENDECTOMY LAPAROSCOPIC N/A 12/26/2019 Laterality: N/A; Surgeon: Rosy Lynn DO; [facility] GASTRECTOM[facility] LONGITUDINAL (SLEEVE) LAPAROSCOPIC N/A 08/10/2019 Laterality: N/A; Surgeon: Griselda Gallegos MD; [facility] EGD DIAGNOSTIC N/A 08/10/2019 Laterality: N/A; Surgeon: Griselda Gallegos MD; [facility] EGD DIAGNOSTIC N/A 04/24/2019 Laterality: N/A; Surgeon: Nahomy Santos MD; [facility] LAPAROTOMY EXPLORATORY N/A 02/27/2019 Laterality: N/A; Surgeon: Raul Lott MD; [facility] HERNIA REPAIR 02/27/2019 REPAIR HERNIA UMBILICAL OPEN W/ MESH N/A 05/09/2017 Laterality: N/A; Surgeon: CORNEL Elizondo; [facility] KIDNEY TRANSPLANT W/O SEMINOLE NEPHRECTOMY N/A 09/25/2016 Laterality: N/A; Surgeon: Jose Shaw MD; Location: [facility] MAIN OR NV KNEE SCOPE, MENISC TRANSPLANT Right 11/12/2014 right [...] ..Please obtain future renewals of this prescription fromyour primary care provider. CALCIUM CITRATE PO 1,200 [...] directed as needed. Apply to affected area 1-2times daily when skin flared), Disp: 45 g, [...] Take 2 tablets daily in the morning and3 tablets daily in the evening), Disp: 150 [...] twice daily --> okay to use every daywithout breaks if needed (Patient taking differently: Apply [...] affected area (feet) twice daily (Patient taking differently:Place 1 Application on skin As directed as [...] Care. Schuyler Sparks MD documented in this encounterOS[facility]12[facility] Nurse Note* Nursing Notes - Cecily Prieto RN - 2023 9:30 AM EST Bergeron teaching done with pt. He has been off of PPI x 1 week and has no stated nickel allergy. Pt states his worst symptoms are reflux and heartburn. He was taught how to record these, plus meals andsleep. Pt voices understanding. Box was given to return recorder via UPS. [facility] History of Present illness Narrative* Aliza Davis MD - 05/28/2023 11:00 AM EST -Referring Provider for today's consult: Self, Self [...] decreased GFR, Depression (2010), Diverticulosis, Dry skin, ESRDon dialysis (02/22/2011), Fatigue, GERD (gastroesophageal reflux disease), [...] MD, in the presence of a medical entertainment & media correspondent. [x] A full body skin exam was [...] Neoplasm of uncertain behavior of skin D48.5 NV SHAV SKIN LES 0.6-1CM TRUNK,ARM,LEG SURG PATH [...] skin monthly at home and watch for growing/changinglesions and call us immediately if they notice any changes. - Discussed importance of photoprotection Nevi - Discussed risk of melanoma in growing/changing moles. Advised monthly self exams, was educated onthe ABCD of moles, and broad spectrum SPF [...] prescriptions requested or ordered in this encounter I, Sarah Guerra LPN , served as a scribe and medical entertainment & media correspondent for this exam/procedure on 05/28/2023 This exam/procedure was conducted by Aliza Davis MD in the presence of a medical entertainment & media correspondent I have reviewed this documentation scribed above and it is accurate as of 05/28/2023 12:25 PM Aliza Davis MD Sales Office Administrator Division of Dermatology [facility] documented in this encounterOSMer[facility]11-28-[facility] Instructions* Patient Instructions* Sarah Charlie - 05/28/2023 11:00 AM EST Images from [...] on areas of the body that have beenexposed to the sun, such as the head, [...] dioxide or zinc oxide). Some that I recommendinclude: - [place] Gold Botanical Mineral Sunscreen - SPF 30 [...] biopsy test results within ten business days. Certainresults may take longer, but are usually received within fourteen days. Results are autoreleased on [employer] before being reviewed by the physician. Please allow 3 businessdays after results are released for the physician [...] timed by the clock. If bleeding has notstopped, apply pressure for 20 more minutes along with ice. If bleeding still has not stopped, continue holding pressure on the wound and call your nuclear pharmacist or go to your local emergency room. Pain: Local anesthesia will wear off in approximately 1-3 hours. The area may burn, throb, feel tender orsore but should NOT be excruciatingly painful. If your wound hurts, take Tylenol or Extra-Strength Tylenol (acetaminophen) as directed on bottle, as needed. If Tylenol does not control the pain, alternate between Tylenol and Ibuprofen Call your nuclear pharmacist for pain not controlled by Tylenol and [...] area once an hour for 20 minutes viky time. Call your Doctor if you have: [...] removed (over the counter) Who to call [facility] Dermatology at for problems Saturday through Saturday in the morning or afternoon. For Urgent problems in the evenings or after hours, call the hospital erco machine operator at and ask for the [employer] technical publications writer. TEST RESULTS: We will make every effort to communicate your biopsy test results within ten business days. Certainresults may take longer, but are usually received within fourteen days. Results are autoreleased on [employer] before being reviewed by the physician. Please allow 3 businessdays after results are released for the physician to review results and determine management. Your results will be communicated to you in one of three ways; Mailed to you [employer] Message Reviewed with you over the phone If you have any questions about your visit today or your tests, please call us at [phone] Option 4. Please wait 14 days prior to calling for test results This flipbook was created as a guide to Mohs micrographic surgery, but it has helpful information about healing towards the end. [facility] of Present illness Narrative* Javan Diego DPM - 04/22/2023 9:40 AM EDT Date of Service : 04/19/2023 CHIEF COMPLAINT: [...] his ankle. He was seen in the [place] [facility] on March 11, 2023, a [...] Laterality: N/A; Surgeon: Rosy Lynn DO; Location: [facility] MAIN OR GASTRECTOMY LONGITUDINAL (SLEEVE) LAPAROSCOPIC N/A 08/10/2019 Laterality: N/A; Surgeon: Griselda Gallegos MD; Location: [facility] SAME DAY SURGERY MAIN OR EGD DIAGNOSTIC N/A 08/10/2019 Laterality: N/A; Surgeon: Griselda Gallegos MD; Location: [facility] SAME DAY SURGERY MAIN OR EGD DIAGNOSTIC N/A 04/24/2019 Laterality: N/A; Surgeon: Nahomy Santos MD; Location: [facility] ENDOSCOPY LAPAROTOMY EXPLORATORY N/A 02/27/2019 Laterality: N/A; Surgeon: Raul Lott MD; Location: [facility] MAIN OR HERNIA REPAIR 02/27/2019 REPAIR HERNIA UMBILICAL OPEN W/ MESH N/A 05/09/2017 Laterality: N/A; Surgeon: CORNEL Elizondo; Location: [facility] MAIN OR KIDNEY TRANSPLANT W/O SEMINOLE NEPHRECTOMY N/A 09/25/2016 Laterality: N/A; Surgeon: Jose Shaw MD; Location: [facility] MAIN OR NV KNEE SCOPE, MENISC TRANSPLANT Right 11/12/2014 right [...] directed as needed. Apply to affected area 1-2times daily when skin flared), Disp: 45 g, [...] Take 2 tablets daily in the morning and3 tablets daily in the evening), Disp: 150 [...] twice daily --> okay to use every daywithout breaks if needed (Patient taking differently: Apply [...] affected area (feet) twice daily (Patient taking differently:Place 1 Application on skin As directed as [...] as tolerated and he does physical therapy. (DOC:[id number]) * Chiquita Wharton LPN - 04/19/2023 10:30 AM EDT Review of Systems Constitutional: Negative for chills, [...] *Not diabetic *No dentures/partials documented in this [facility]10-17-2023 History of Present illness Narrative* Geovanna Miranda APRN-CYBER DEFENSE FORENSICS ANALYST - 04/16/2023 2:00 PM EDT Subjective History of Present Illness Right Ankle Pain Zoie Heath presents with ankle pain that started 03/10/2023. This was in association to an injury/accident. 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 Location of pain: [...] for ear pain, nosebleeds, postnasal drip, rhinorrhea, sinuspressure, sinus pain, sneezing and sore throat. Eyes: [...] with sprain and reviewed this. Given educational informationregarding this referral in for Dr Diego for repeat imaging if determined needed and to discuss immobilization for healing. Will F/U pending referral results. Discussed rest, ice, elevation to help. [facility] Note* Kg Hurtado RN - 03/11/2023 12:34 AM EDT Pts right foot wrapped in an michael bandage. Pt verbalized understanding of DC instructions. He deniedany further complaints and ambulated out of er [facility]09-11-[facility] Emergency department Note* Kg Hurtado RN - 03/11/2023 12:34 AM EDT Pts right foot wrapped in an michael bandage. Pt verbalized understanding of DC instructions. He deniedany further complaints and ambulated out of er * Ilia Shaffer MD - 03/10/2023 11:16 PM EDT Emergency Department Report [facility] EMERGENCY MEDICINE Service Date:.03/11/23 PCP: Geovanna Miranda Chief Complaint: Chief Complaint Patient presents with Foot Pain Fell and injured inside of right foot at 1530 today. 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 His tetanus [...] Bilateral; Surgeon: Charley Mccracken MD, PhD; Location: [facility] MAIN OR NEPHRECTOMY 2021 APPENDECTOMY LAPAROSCOPIC N/A 12/26/2019 Laterality: N/A; Surgeon: Rosy Lynn DO; Location: [facility] MAIN OR GASTRECTOMY LONGITUDINAL (SLEEVE) LAPAROSCOPIC N/A 08/10/2019 Laterality: N/A; Surgeon: Griselda Gallegos MD; Location: [facility] SAME DAY SURGERY MAIN OR EGD DIAGNOSTIC N/A 08/10/2019 Laterality: N/A; Surgeon: Griselda Gallegos MD; Location: [facility] SAME DAY SURGERY MAIN OR EGD DIAGNOSTIC N/A 04/24/2019 Laterality: N/A; Surgeon: Nahomy Santos MD; Location: [facility] ENDOSCOPY LAPAROTOMY EXPLORATORY N/A 02/27/2019 Laterality: N/A; Surgeon: Raul Lott MD; Location: [facility] MAIN OR HERNIA REPAIR 02/27/2019 REPAIR HERNIA UMBILICAL OPEN W/ MESH N/A 05/09/2017 Laterality: N/A; Surgeon: CORNEL Elizondo; Location: [facility] MAIN OR KIDNEY TRANSPLANT W/O SEMINOLE NEPHRECTOMY N/A 09/25/2016 Laterality: N/A; Surgeon: Jose Shaw MD; Location: [facility] MAIN OR NV KNEE SCOPE, MENISC TRANSPLANT Right 11/12/2014 right [...] deformity, ecchymosis or lacerations. Tenderness present over themedial malleolus. No lateral malleolus, ATF ligament, AITF ligament, CF ligament, posterior TF ligament, base of 5th metatarsal or proximal fibula tenderness. Normal range of motion. Anterior drawer test negative. Normal pulse. Right Achilles Tendon: Normal. Right foot: Normal range of motion and normal capillary refill. Swelling and tenderness present. Nodeformity, bunion, Charcot foot, foot drop, prominent metatarsal heads, laceration, bony tendernessor crepitus. Normal pulse. Neurological: Mental Status: He is alert. Vital Signs During ED Visit Patient Vitals for the past 24 hrs: BP Temp Temp src Pulse Resp SpO2 Height 09/10/23 2311 154/70 97.4 F (36.3 C) Oral [...] knee pain. States his tetanus immunization is up-to-date.X-ray of the ankle and foot reviewed by [...] . . Ilia Shaffer MD 03/11/23 0022 * Beti Enciso RN - 03/10/2023 11:13 PM EDT Has rt inner foot/ankle pain. + Rt pedal pulse, moves toes easily. Fresh Ice pack to area. documented in this [facility]09-11-[facility]23 Hospital Discharge instructions* Discharge Instructions* Ilia Shaffer MD - 03/11/2023 12:16 AM EDT Call your doctor for follow-up appointment. Apply ice 5 times a day 15 minutes a time as needed forpain and swelling over the next 48 hours. Continue to wear the Michael wrap until you follow-up with your primary doctor. You can take Tylenol 650 mg every 6 hours as needed for pain. If worsening symptoms come back to the ER. * Attachments The following attachments cannot be sent through Care Everywhere. * Pain and Pain Control ([facility]) (Montenegrin) * Ankle Sprain (Montenegrin) * Ankle Sprain: Rehab Exercises (Montenegrin) * RICE: General Info (Montenegrin) documented in this [facility]09-10-2023 Physician Emergency department Note* Ilia Shaffer MD - 03/10/2023 11:16 PM EDT Emergency Department Report [facility] EMERGENCY MEDICINE Service Date:.03/11/23 PCP: Geovanna Miranda Chief Complaint: Chief Complaint Patient presents with Foot Pain Fell and injured inside of right foot at 1530 today. 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 His tetanus [...] Bilateral; Surgeon: Charley Mccracken MD, PhD; Location: [facility] MAIN OR NEPHRECTOMY 2021 APPENDECTOMY LAPAROSCOPIC N/A 12/26/2019 Laterality: N/A; Surgeon: Rosy Lynn DO; Location: [facility] MAIN OR GASTRECTOMY LONGITUDINAL (SLEEVE) LAPAROSCOPIC N/A 08/10/2019 Laterality: N/A; Surgeon: Griselda Gallegos MD; Location: [facility] SAME DAY SURGERY MAIN OR EGD DIAGNOSTIC N/A 08/10/2019 Laterality: N/A; Surgeon: Griselda Gallegos MD; Location: [facility] SAME DAY SURGERY MAIN OR EGD DIAGNOSTIC N/A 04/24/2019 Laterality: N/A; Surgeon: Nahomy Santos MD; Location: [facility] ENDOSCOPY LAPAROTOMY EXPLORATORY N/A 02/27/2019 Laterality: N/A; Surgeon: Raul Lott MD; Location: [facility] MAIN OR HERNIA REPAIR 02/27/2019 REPAIR HERNIA UMBILICAL OPEN W/ MESH N/A 05/09/2017 Laterality: N/A; Surgeon: CORNEL Elizondo; Location: [facility] MAIN OR KIDNEY TRANSPLANT W/O SEMINOLE NEPHRECTOMY N/A 09/25/2016 Laterality: N/A; Surgeon: Jose Shaw MD; Location: [facility] MAIN OR NV KNEE SCOPE, MENISC TRANSPLANT Right 11/12/2014 right [...] deformity, ecchymosis or lacerations. Tenderness present over themedial malleolus. No lateral malleolus, ATF ligament, AITF ligament, CF ligament, posterior TF ligament, base of 5th metatarsal or proximal fibula tenderness. Normal range of motion. Anterior drawer test negative. Normal pulse. Right Achilles Tendon: Normal. Right foot: Normal range of motion and normal capillary refill. Swelling and tenderness present. Nodeformity, bunion, Charcot foot, foot drop, prominent metatarsal heads, laceration, bony tendernessor crepitus. Normal pulse. Neurological: Mental Status: He [...] knee pain. States his tetanus immunization is up-to-date.X-ray of the ankle and foot reviewed by [...] . . Ilia Shaffer MD 03/11/23 0022 [facility]09-10-20[facility] Emergency department Note* Beti Enciso RN - 03/10/2023 11:13 PM EDT Has rt inner foot/ankle pain. + Rt pedal pulse, moves toes easily. Fresh Ice pack to area. [facility]06-12-20[facility] History of Present illness Narrative* Liza Penn APRN-CYBER DEFENSE FORENSICS ANALYST - 12/10/2022 2:30 PM EDT [facility] Follow-Up Visit: [...] this service. 28 minutes [facility] History of Present illness Narrative* REYES Shook - 10/29/2022 10:00 AM EDT History of Present Illness Dog Bite Onset: Saturday the . Bite by own dog (age 12), up to date with rabies vaccination. Location: inbetween 2nd and third digits. Patient tried to get dog on bed and and reached for his collar and dog bit him. Aggravating factors: when fingers. Has been lisa taping 2nd and third digits.Sensitive to heat. Relieving factors: Tylenol and lisa taping. Also on Augmentin. Associated s/sx:heat to palm and some discomfort (relieved with [...] ATB and new medication). Negative for abdominal pain,blood in stool and nausea. Genitourinary: Negative for [...] He is obese. He is not ill-appearing, toxic- appearing or diaphoretic. Psychiatric: Behavior: Behavior is cooperative. Neck: Normal range of motion. Neck supple. Cardiovascular: Normal rate, regular rhythm, S1 normal, S2 normal and intact distal pulses. Murmur heard. Systolic murmur is present with a grade of 2/6 Pulmonary/Chest: Effort normal and breath sounds normal. Abdominal: Soft. Normal appearance and bowel sounds are normal. There is no tenderness. There is norebound and no CVA tenderness. Surgical scars throughout [...] the right dorsal hand. No drainage and minimalsurrounding redness right around the wound. No swelling up into wrist or arm as it was before. Healing well. Psychiatric: Memory and affect normal. His mood appears not anxious. He does not exhibit a depressed mood. Mental Status Oriented to person, place, and time. Assessment and Plan Dog Bite/Wound F/U: reviewed all recent ED and urgent care notations. Area healing well with almostcomplete resolution of redness previously seen. Will finish off course with Augmentin and to scheduled for November 07 for suture removal. Encouraged on continuing with lisa taping and encouraged on steri- strip. Will F/U as needed. To call/return if s/sx persist/worsen. documented in this [facility]04-28-2023 History of Present illness Narrative* Mary Moreira PA-C - 10/26/2022 8:33 PM EDT Images from the original note were not included. Patient Name: [facility] Location: [place] [address] [facility] [address] Date Of : Date Of Visit: 1965 10/26/2022 MRN# Provider: [id number] Mary Moreira PA-C Chief Complaint Patient presents [...] lymphangitis. The pharmacies are closed at this timeof night. I did go ahead and give [...] presented to [facility] ED in [place]. The ED provider sutured a wound between [...] redness is extending up onto the dorsal aspectof the right wrist. He also has red [...] to 1 (one) tablet (50-100 mg total) bymouth as needed . tacrolimus (PROGRAF) 1 MG [...] file for this visit. documented in this [id number] Emergency department Note* Amairani Au RN - 10/24/2022 7:40 AM EDT Triple antibiotic ointment applied to laceration post suture. Non-stick dressing applied and wrapped with kerlix [facility]04-26-2023 Emergency department Note* Amairani Au RN - 10/24/2022 7:40 AM EDT Triple antibiotic ointment applied to laceration post suture. Non-stick dressing applied and wrapped with kerlix * Amairani Au RN - 10/24/2022 7:20 AM EDT Cleansed laceration with hibiclens and sterile water, bleeding controlled. * Maico Hernadez MD - 10/24/2022 7:14 AM EDT Emergency Department Report [facility] EMERGENCY MEDICINE Service Date:.10/24/22 PCP: Geovanna Miranda Chief Complaint: No chief complaint on file. JOE Heath is a 57 y.o. male presents to the ED with chief complaint of laceration to the righthand. States this morning he got cut in [...] Surgeon: Charley Mccracken MD, PhD; [facility] MA[facility] OR APPENDECTOMY LAPAROSCOPIC N/A 12/26/2019 Laterality: N/A; Surgeon: Rosy Lynn DO; Location: [facility] MAIN OR GASTRECTOMY LONGITUDINAL (SLEEVE) LAPAROSCOPIC N/A 08/10/2019 Laterality: N/A; Surgeon: Griselda Gallegos MD; Location: [facility] SAME DAY SURGERY MAIN OR EGD DIAGNOSTIC N/A 08/10/2019 Laterality: N/A; Surgeon: Griselda Gallegos MD; Location: [facility] SAME DAY SURGERY MAIN OR EGD DIAGNOSTIC N/A 04/24/2019 Laterality: N/A; Surgeon: Nahomy Santos MD; Location: [facility] ENDOSCOPY LAPAROTOMY EXPLORATORY N/A 02/27/2019 Laterality: N/A; Surgeon: Raul Lott MD; Location: [facility] MAIN OR HERNIA REPAIR 02/27/2019 REPAIR HERNIA UMBILICAL OPEN W/ MESH N/A 05/09/2017 Laterality: N/A; Surgeon: CORNEL Elizondo; Location: [facility] MAIN OR KIDNEY TRANSPLANT W/O SEMINOLE NEPHRECTOMY N/A 09/25/2016 Laterality: N/A; Surgeon: Jose Shaw MD; Location: [facility] MAIN OR NV KNEE SCOPE, MENISC TRANSPLANT Right 11/12/2014 right knee scope with lateral meniscus repair per Dr. Zepeda HERNIA REPAIR Right 01/08/2012 inguinal - uncomplicated HERNIA REPAIR 01/08/2012 umbilical - incarcerated CREATION ARTERIOVENOUS FISTULA W/ AUTOGENOUS GRAFT Left 2010 CREATION ARTERIOVENOUS FISTULA W/ NONAUTOGENOUS GRAFT 2010 SHOULDER SURGERY Left 2008 clavicle repair and shoulder arthroscopy CHOLECYSTECTOMY 2005 KNEE SURGERY Left 1993 arthroscopy ADENOIDECTOMY EXCISION FISTULA LACTIFEROUS DUCT TONSILLECTOMY [...] follow up in Aug 2021. Scheduling phone [phone] CAPSULE Take [...] was then brought together using 4 0 Ethilonsuture. Closure required 4 simple interrupted sutures. Good [...] Hernadez MD 10/24/22 0731 documented [facility] Emergency department Note* Amairani Au RN - 10/24/2022 7:20 AM EDT Cleansed laceration with hibiclens and sterile water, bleeding controlled. [facility]04-26-2023 Physician Emergency department Note* Maico Hernadez MD - 10/24/2022 7:14 AM EDT Emergency Department Report [facility] EMERGENCY MEDIC[facility] Service Date:.10/24/22 PCP: Geovanna Miranda Chief Complaint: No chief complaint on file. HPI Zoie Heath is a 57 y.o. male presents to the ED with chief complaint of laceration to the righthand. States this morning he got cut in [...] Bilateral; Surgeon: Charley Mccracken MD, PhD; Location: [facility] MAIN OR APPENDECTOMY LAPAROSCOPIC N/A 12/26/2019 Laterality: N/A; Surgeon: Rosy Lynn DO; Location: [facility] MAIN OR GASTRECTOMY LONGITUDINAL (SLEEVE) LAPAROSCOPIC N/A 08/10/2019 Laterality: N/A; Surgeon: Griselda Gallegos MD; Location: [facility] SAME DAY SURGERY MAIN OR EGD DIAGNOSTIC N/A 08/10/2019 Laterality: N/A; Surgeon: Griselda Gallegos MD; Location: [facility] SAME DAY SURGERY MAIN OR EGD DIAGNOSTIC N/A 04/24/2019 Laterality: N/A; Surgeon: Nahomy Santos MD; Location: [facility] ENDOSCOPY LAPAROTOMY EXPLORATORY N/A 02/27/2019 Laterality: N/A; Surgeon: Raul Lott MD; Location: [facility] MAIN OR HERNIA REPAIR 02/27/2019 REPAIR HERNIA UMBILICAL OPEN W/ MESH N/A 05/09/2017 Laterality: N/A; Surgeon: CORNEL Elizondo; Location: [facility] MAIN OR KIDNEY TRANSPLANT W/O SEMINOLE NEPHRECTOMY N/A 09/25/2016 Laterality: N/A; Surgeon: Jose Shaw MD; Location: [facility] MAIN OR NV KNEE SCOPE, MENISC TRANSPLANT Right 11/12/2014 right [...] follow up in Aug 2021. Scheduling phone [phone] [address]ME[address]AZ[address]LE [address] CAPSULE Take [...] was then brought together using 4 0 Ethilonsuture. Closure required 4 simple interrupted sutures. Good [...] information. . Maico Hernadez MD 10/24/22 0731 [facility] Work Phone: 1(799) 768-210303-06-2023 Note* Addendum Note - Andrew Mcduffie CNP - 09/03/2022 9:41 AM ESTAddended by: ANDREW MCDUFFIE on: 09/03/2022 09:41 AM Modules accepted: Orders [id number] Miscellaneous Notes* Addendum Note - Andrew Mcduffie CNP - 09/03/2022 9:41 AM ESTAddended by: ANDREW MCDUFFIE on: 09/03/2022 09:41 AM Modules accepted: Orders documented in this [id number] Instructions* Patient Instructions* Jayshree Vilchis CNP - 09/02/2022 1:23 PM EST Plan: Zithromax and Polytrim as prescribed. Call your research project coordinator nurse today to notify of the new medications you are taking and inquire if any additional lab work is necessary. Make a follow up appointment with your primary care provider within 7 days for recheck. If symptoms worsen, change, or new symptoms develop go instead immediately to the nearest emergency room for further evaluation and treatment. * Attachments The following attachments cannot be sent through Care Everywhere. * Conjunctivitis (Mont[place]grin) * Taking Care of Pinkeye at Home: Video ([place]grin) * Here's Help: How to Give Yourself Eyedrops or Eye Ointment: Video ([place]grin) * Sinusitis ([place]grin) documented in this [id number] Instructions* Patient Instructions* Jayshree Vilchis CNP - 09/02/2022 1:23 PM EST Plan: Zithromax and Polytrim as prescribed. Call your research project coordinator nurse today to notify of the new medications you are taking and inquire if any additional lab work is necessary. Make a follow up appointment with your primary care provider within 7 days for recheck. If symptoms worsen, change, or new symptoms develop go instead immediately to the nearest emergency room for further evaluation and treatment. * Attachments The following attachments cannot be sent through Care Everywhere. * Conjunctivitis ([place]grin) * Taking Care of Pinkeye at Home: Video (Mont[place]grin) * Here's Help: How to Give Yourself Eyedrops or Eye Ointment: Video (Mont[place]grin) * Sinusitis ([place]grin) documented in this [id number] History of Present illness Narrative* Jayshree Vilchis CNP - 09/02/2022 1:01 PM EST Images from the original note were not included. Patient Name: [facility] Location: [place] Heath [address] [facility] [address] Date Of : Date Of Visit: 1965 09/02/2022 MRN# Provider: [id number] Jayshree Vilchis CNP Chief Complaint Patient presents [...] Zithromax and Polytrim as prescribed. Call your research project coordinator nurse today to notify of the [...] still has runny nose, cough, woke up withmatted eyes ) Sinus pain, pressure, drainage, cough, eye redness, matting eye discharge, eye irritation. Symptomsstarted few days ago and worsening. Denies sharp eye pain, vision loss, double vision. Denies any accident fall or trauma. Illness Associated symptoms include congestion, eye discharge, eye itching, eye redness, rhinorrhea, a sorethroat and coughing. Pertinent negatives include no ear [...] to 1 (one) tablet (50-100 mg total) bymouth as needed . tacrolimus (PROGRAF) 1 MG [...] Zithromax and Polytrim as prescribed. Call your research project coordinator nurse today to notify of the new medications you are taking and inquire if any additional lab work is necessary. Make a follow up appointment with your primary care provider within 7 days for recheck. If symptoms worsen, change, or new symptoms develop go instead immediately to the nearest emergency room for further evaluation and treatment. documented in this [id number] History of Present illness Narrative* Jayshree Vilchis CNP - 09/02/2022 1:01 PM EST Images from the original note were not included. Patient Name: [facility] Location: [place] Heath [address] [facility] [address] Date Of : Date Of Visit: 1965 09/02/2022 N# Provider: [id number] Jayshree Vilchis CNP Chief Complaint Patient presents [...] Zithromax and Polytrim as prescribed. Call your research project coordinator nurse today to notify of the [...] still has runny nose, cough, woke up withmatted eyes ) Sinus pain, pressure, drainage, cough, eye redness, matting eye discharge, eye irritation. Symptomsstarted few days ago and worsening. Denies sharp eye pain, vision loss, double vision. Denies any accident fall or trauma. Illness Associated symptoms include congestion, eye discharge, eye itching, eye redness, rhinorrhea, a sorethroat and coughing. Pertinent negatives include no ear [...] to 1 (one) tablet (50-100 mg total) bymouth as needed . tacrolimus (PROGRAF) 1 MG [...] Zithromax and Polytrim as prescribed. Call your research project coordinator nurse today to notify of the new medications you are taking and inquire if any additional lab work is necessary. Make a follow up appointment with your primary care provider within 7 days for recheck. If symptoms worsen, change, or new symptoms develop go instead immediately to the nearest emergency room for further evaluation and treatment. documented in this [id number] Instructions* Patient Instructions* Jayshree Vilchis CNP - 08/30/2022 11:03 AM [...] further evaluation and treatment. documented in this [id number] History of Present illness Narrative* Jayshree Vilchis CNP - 08/30/2022 10:43 AM EST Images from the original note were not included. Patient Name: [facility] Location: [facility] [facility] [address] Date Of : Date Of Visit: 1965 08/30/2022 MRN# Provider: [id number] Jayshree Vilchis CNP Chief Complaint Patient presents [...] pain, shortness of breath, wheezing, diarrhea, vomiting orrash. Review Of Systems Review of Systems Constitutional: [...] to 1 (one) tablet (50-100 mg total) bymouth as needed . tacrolimus (PROGRAF) 1 MG [...] further evaluation and treatment. documented in this [id number] Emergency department Note* Andrew Guan RN - 04/21/2022 11:17 AM EDT Patient presented discharge instructions and education to follow up with an indoor plant technician and pick upmedications from the pharmacy. Patient left this ED ambulatory with a steady gait and even respirations. [facility]10-22-20[facility] Emergency department Note* Andrew Guan RN - 04/21/2022 11:17 AM EDT Patient presented discharge instructions and education to follow up with an indoor plant technician and pick upmedications from the pharmacy. Patient left this ED ambulatory with a steady gait and even respirations. * Andrew Guan RN - 04/21/2022 10:59 AM EDT Patient's vision assessed. 20/50 with both eyes. But unable to see anything with affected eye. He did state that he wears bifocals normally and has terrible vision. Dr. Archuleta aware of his baseline vision. * Raheem Archuleta MD - 04/21/2022 10:56 AM EDT EMERGENCY DEPARTMENT REPORT [facility] EMERGENCY MEDICINE SERVICE DATE: 04/21/22 PCP: Geovanna Miranda CHIEF COMPLAINT: Right eye redness Chief Complaint Patient presents with Eye Problem Right eye redness x2 days, denies injury and pain HPI: Zoie Heath is a 56 y.o. male who presents with complaint of right eye redness. Onset of rednessthe previous day. No change in vision. Patient reports no associated pain at this time. Patient reports course to be improving. Patient was evaluated in the urgent care setting the previous day. Patient was informed to present to the emergency department or see an donor services team leader. Patient wears contacts. REVIEW OF SYSTEMS: As [...] Bilateral; Surgeon: Charley Mccracken MD, PhD; Location: [facility] MAIN OR APPENDECTOMY LAPAROSCOPIC N/A 12/26/2019 Laterality: N/A; Surgeon: Rosy Lynn DO; Location: [facility] MAIN OR GASTRECTOMY LONGITUDINAL (SLEEVE) LAPAROSCOPIC N/A 08/10/2019 Laterality: N/A; Surgeon: Griselda Gallegos MD; Location: [facility] SAME DAY SURGERY MAIN OR EGD DIAGNOSTIC N/A 08/10/2019 Laterality: N/A; Surgeon: Griselda Gallegos MD; Location: [facility] SAME DAY SURGERY MAIN OR EGD DIAGNOSTIC N/A 04/24/2019 Laterality: N/A; Surgeon: Nahomy Santos MD; Location: [facility] ENDOSCOPY LAPAROTOMY EXPLORATORY N/A 02/27/2019 Laterality: N/A; Surgeon: Raul Lott MD; Location: [facility] MAIN OR HERNIA REPAIR 02/27/2019 REPAIR HERNIA UMBILICAL OPEN W/ MESH N/A 05/09/2017 Laterality: N/A; Surgeon: CORNEL Elizondo; Location: [facility] MAIN OR KIDNEY TRANSPLANT W/O SEMINOLE NEPHRECTOMY N/A 09/25/2016 Laterality: N/A; Surgeon: Jose Shaw MD; Location: [facility] MAIN OR NV KNEE SCOPE, MENISC TRANSPLANT Right 11/12/2014 right [...] follow up in Aug 2021. Scheduling phone [phone] ROPINIROLE 0.5 MG TABLET Take 0.5 mg [...] Portions of this chart were created using [employer] electronic dictation. Please excuse any typographical or grammatical errors contained herein. Raheem Archuleta MD 04/21/22 1120 * Aliza Escobedo RN - 04/21/2022 10:53 AM EDT TO Ed with c/o right eye redness. Denies pain, itching, FB sensation, and injury. Saw urgent care tomorrow and was advised to seek emergent treatment and possible donor services team leader eval. [facility] Discharge instructions* Discharge Instructions* Raheem Archuleta MD - 04/21/2022 11:12 AM EDT You will need to see an eye doctor B[facility]. * Attachments The following attachments cannot be sent through Care Everywhere. * Iritis (Montenegrin) documented in this [facility]10-22-2022 Emergency department Note* Andrew Guan RN - 04/21/2022 10:59 AM EDT Patient's vision assessed. 20/50 with both eyes. But unable to see anything with affected eye. He did state that he wears bifocals normally and has terrible vision. Dr. Archuleta aware of his baseline vision. [facility]10-22-2022 Physician Emergency department Note* Raheem Archuleta MD - 04/21/2022 10:56 AM EDT EMERGENCY DEPARTMENT REPORT [facility] EMERGENCY MEDICINE SERVICE DATE: 04/21/22 PCP: Geovanna Miranda CHIEF COMPLAINT: Right eye redness Chief Complaint Patient presents with Eye Problem Right eye redness x2 days, denies injury and pain HPI: Zoie Heath is a 56 y.o. male who presents with complaint of right eye redness. Onset of rednessthe previous day. No change in vision. Patient reports no associated pain at this time. Patient reports course to be improving. Patient was evaluated in the urgent care setting the previous day. Patient was informed to present to the emergency department or see an donor services team leader. Patient wears contacts. REVIEW OF SYSTEMS: As [...] Bilateral; Surgeon: Charley Mccracken MD, PhD; [facility] OR APPENDECTOMY LAPAROSCOPIC N/A 12/26/2019 Laterality: [...] Laterality: N/A; Surgeon: Raul Lott MD; Location: [facility] MAIN OR HERNIA REPAIR 02/27/2019 REPAIR HERNIA UMBILICAL OPEN W/ MESH N/A 05/09/2017 Laterality: N/A; Surgeon: CORNEL Elizondo; Location: [facility] MAIN OR KIDNEY TRANSPLANT W/O SEMINOLE NEPHRECTOMY N/A 09/25/2016 Laterality: N/A; Surgeon: Jose Shaw MD; Location: [facility] MAIN OR NV KNEE SCOPE, MENISC TRANSPLANT Right 11/12/2014 right [...] follow up in Aug 2021. Scheduling phone [phone] ROPINIROLE 0.5 MG TABLET Take 0.5 mg [...] Portions of this chart were created using [employer] electronic dictation. Please excuse any typographical or grammatical errors contained herein. Raheem Archuleta MD 04/21/22 1120 [facility]10-22-20[facility] Emergency department Note* Aliza Escobedo RN - 04/21/2022 10:53 AM EDT TO Ed with c/o right eye redness. Denies pain, itching, FB sensation, and injury. Saw urgent care tomorrow and was advised to seek emergent treatment and possible donor services team leader eval. [facility]09-02-2022 History of Present illness Narrative* Geovanna Miranda, JANICE-CYBER DEFENSE FORENSICS ANALYST - 03/02/2022 2:30 PM EDT History of Present Illness Low Testosterone Recent [...] for congestion, ear pain, nosebleeds, postnasal drip, sinuspressure, sinus pain, sneezing and sore throat. Eyes: [...] He is obese. He is not ill-appearing, toxic- appearing or diaphoretic. Psychiatric: Behavior: Behavior is cooperative. Neck: Normal range of motion. Neck supple. Cardiovascular: Normal rate, regular rhythm, S1 normal, S2 normal and intact distal pulses. Murmur heard. Systolic murmur is present with a grade of 2/6 Pulmonary/Chest: Effort normal and breath sounds normal. Abdominal: Soft. Normal appearance and bowel sounds are normal. There is no tenderness. There is norebound and no CVA tenderness. Surgical scars throughout [...] ADR's. Discussed compresses as well as appropriate cleaningof eye and avoidance of any triggers. F/U as needed. To call/retrun fi s/sx worsen, progress or no resolution with tx. [facility] Instructions* Patient Instructions* REYES Shook - 01/08/2022 8:59 AM EDT [...] prevent dust mites, HEPA filter in furnace/air conditionerand vacuum, stay indoors with windows shut as much as possible with high pollen counts, keep away from smoke/burning, cool mist humidification, nasal saline spray. will f/u in 6 months. sooner if needed. [facility] History of Present illness Narrative* REYES Shook - 01/08/2022 8:30 AM EDT History of Present Illness Erectile Dysfunction There is a complaint of erectile problems. Onset of problem was the beginning of the year and is described as cant last (will obtain erection, however, this will not last and then, at times, unable to even obtain an erection, also, dont get the urge to want to have sex. 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 EDWARDO Huynh presents to the office today for follow-up [...] for congestion, ear pain, nosebleeds, postnasal drip, sinuspressure, sinus pain, sneezing and sore throat. Eyes: [...] He is obese. He is not ill-appearing, toxic- appearing or diaphoretic. Psychiatric: Behavior: Behavior is cooperative. [...] normal. There is no tenderness. There is norebound and no CVA tenderness. Surgical scars throughout [...] prevent dust mites, HEPA filter in furnace/air conditionerand vacuum, stay indoors with windows shut as much as possible with high pollen counts, keep away from smoke/burning, cool mist humidification, nasal saline spray. will f/u in 6 months. sooner if needed. documented in this [facility]07-07-2022 History and physical note* Jennifer Angel Marrufo, DO - 01/04/2022 1:30 PM EDT History of Present Illness Mr. Heath is a 56 y.o. male is being evaluated in [facility] due to his medical condition(s) S/p gastric bypass - 2019 Hypertension- stable on medication Kidney transplant 2016 - history of polycystic kidney disease GERD- stable on medication DEMI on CPAP- resolved since wt loss which increases his risk for perioperative complications. Name: Zoie Heath Date of Surgery: 01/23/2022 Surgeon: Kaykay Pre-Op Diagnosis: chronic pain due to shoshone-bannock kidney - polycystic kidney disease Planned Procedure: EXAM UNDER ANESTHESIA, OPEN BILATERAL SEMINOLE NEPHRECTOMY Do you take Aspirin? Yes, prevenative [...] Staff Patient location during procedure: OR Room: [facility] Attending: Danny Mina MD Performed by: [...] yard, walks up 2 flights of steps. Winter CP or SOb. BP Readings from Last 3 Encounters: 01/04/22 134/74 01/04/22 141/80 11/30/21 131/75 1. Hypertension - stable on medication PLAN: he has no history of coronary artery disease or cerebral vascular accident. No cardiovascularstents. CARDIAC TESTING: ECG - 01/04/2022, sinus bradycardia [...] differently: Apply 1 Application topically daily as needed.Apply to affected area up to twice daily [...] by mouth daily. (Patient taking differently: Take 40mg by mouth daily every morning.) rOPINIRole 0.5 [...] Placed This Encounter Type and Cross -Preadmission NV ECG, CLINIC PERFORMED Lab A/P - Labs [...] ASA 3 or more DO Jono Cano Perioperative Clinic [facility] [address] [facility] Review of Systems Review of Systems [...] Laterality: N/A; Surgeon: Rosy Lynn DO; Location: [facility] MAIN OR GASTRECTOMY LONGITUDINAL (SLEEVE) LAPAROSCOPIC N/A 08/10/2019 Laterality: N/A; Surgeon: Griselda Gallegos MD; Location: [facility] SAME DAY SURGERY MAIN OR EGD DIAGNOSTIC N/A 08/10/2019 Laterality: N/A; Surgeon: Griselda Gallegos MD; Location: [facility] SAME DAY SURGERY MAIN OR EGD DIAGNOSTIC N/A 04/24/2019 Laterality: N/A; Surgeon: Nahomy Santos MD; Location: [facility] ENDOSCOPY LAPAROTOMY EXPLORATORY N/A 02/27/2019 Laterality: N/A; Surgeon: Raul Lott MD; Location: [facility] MAIN OR HERNIA REPAIR 02/27/2019 REPAIR HERNIA UMBILICAL OPEN W/ MESH N/A 05/09/2017 Laterality: N/A; Surgeon: CORNEL Elizondo; Location: [facility] MAIN OR KIDNEY TRANSPLANT W/O SEMINOLE NEPHRECTOMY N/A 09/25/2016 Laterality: N/A; Surgeon: Jose Shaw MD; Location: [facility] MAIN OR NV KNEE SCOPE, MENISC TRANSPLANT Right 11/12/2014 right [...] DUCT TONSILLECTOMY Patient Care Team: Geovanna Miranda APRN-CYBER DEFENSE FORENSICS ANALYST as PCP - General (Nurse Practitioner - Family) Coordinator Transplant (Inactive) as PCP - Sap Basis Consultant Family History Problem Relation Age of Onset [...] Never Other Topics Concern Domestic Violence No [facility]07-07-2022 History and physical note* Jennifer Marrufo DO - 01/04/2022 1:30 PM EDT History of Present Illness Mr. Heath is a 56 y.o. male is being evaluated in [facility] due to his medical condition(s) S/p gastric bypass - 2019 Hypertension- stable on medication Kidney transplant 2016 - history of polycystic kidney disease GERD- stable on medication DEMI on CPAP- resolved since wt loss which increases his risk for perioperative complications. Name: Zoie Heath Date of Surgery: 01/23/2022 Surgeon: Kaykay Pre-Op Diagnosis: chronic pain due to shoshone-bannock kidney - polycystic kidney disease Planned Procedure: EXAM UNDER ANESTHESIA, OPEN BILATERAL SEMINOLE NEPHRECTOMY Do you take Aspirin? Yes, prevenative [...] Staff Patient location during procedure: OR Room: [facility] Attending: Danny Mina MD Performed by: [...] yard, walks up 2 flights of steps. Hedenies CP or SOb. BP Readings from Last 3 Encounters: 01/04/22 134/74 01/04/22 141/80 11/30/21 131/75 1. Hypertension - stable on medication PLAN: he has no history of coronary artery disease or cerebral vascular accident. No cardiovascularstents. CARDIAC TESTING: ECG - 01/04/2022, sinus bradycardia [...] differently: Apply 1 Application topically daily as needed.Apply to affected area up to twice daily [...] by mouth daily. (Patient taking differently: Take 40mg by mouth daily every morning.) rOPINIRole 0.5 [...] Placed This Encounter Type and Cross -Preadmission NV ECG, CLINIC PERFORMED Lab A/P - Labs [...] ASA 3 or more DO Jono Cano [facility] Perioperative Clinic [facility] [address] [facility] Review of Systems Review of Systems [...] Psychiatric/Behavioral: Negative for suicidal ideas. [facility] Exam Vitals and nursing note reviewed. Constitutional: [...] Laterality: N/A; Surgeon: Rosy Lynn DO; Location: [facility] MAIN OR GASTRECTOMY LONGITUDINAL (SLEEVE) LAPAROSCOPIC N/A 08/10/2019 Laterality: N/A; Surgeon: Griselda Gallegos MD; Location: [facility] SAME DAY SURGERY MAIN OR EGD DIAGNOSTIC N/A 08/10/2019 Laterality: N/A; Surgeon: Griselda Gallegos MD; Location: [facility] SAME DAY SURGERY MAIN OR EGD DIAGNOSTIC N/A 04/24/2019 Laterality: N/A; Surgeon: Nahomy Santos MD; Location: [facility] ENDOSCOPY LAPAROTOMY EXPLORATORY N/A 02/27/2019 Laterality: N/A; Surgeon: Raul Lott MD; Location: [facility] MAIN OR HERNIA REPAIR 02/27/2019 REPAIR HERNIA UMBILICAL OPEN W/ MESH N/A 05/09/2017 Laterality: N/A; Surgeon: CORNEL Elizondo; Location: [facility] MAIN OR KIDNEY TRANSPLANT W/O SEMINOLE NEPHRECTOMY N/A 09/25/2016 Laterality: N/A; Surgeon: Jose Shaw MD; Location: [facility] MAIN OR NV KNEE SCOPE, MENISC TRANSPLANT Right 11/12/2014 right [...] DUCT TONSILLECTOMY Patient Care Team: Geovanna Miranda APRN-CYBER DEFENSE FORENSICS ANALYST as PCP - General (Nurse Practitioner - Family) Coordinator Transplant (Inactive) as PCP - Sap Basis Consultant Family History Problem Relation Age of Onset [...] Concern Domestic Violence No [facility] Instructions* Patient Instructions* Cayla Dean RN - 01/04/2022 11:13 AM [...] is ok to take up until the dayof surgery. Patient Pre-Operative Instructions: Diet Instructions: -NO [...] site one week prior to surgery. - Darby your teeth and rinse your mouth the morning of surgery. - Do NOT bring your dentures or partials with you into surgery. They may be lost. Give them to someone to bring to you after surgery. If you are unable to complete your scheduled testing or appointments made by [facility] please contact [facility] at [phone]. Failure to do so could delay or [...] (CHG) before your surgery. Your nurse has givenyou CHG soap today and written instructions; Getting Your Skin Ready for Surgery . Please review the instructions carefully prior to your surgery. ASPEN/MUSA Please contact Medical Information Management Department for all records requests. [phone] [phone] documented in this encounterMari[facility]06[facility] History and physical note* Elena Hu, INSURANCE SALES SPECIALIST-CYBER DEFENSE FORENSICS ANALYST - 11/30/2021 11:00 AM EDT Images from the original note were not [...] decreased GFR, Depression (2010), Diverticulosis, Dry skin, ESRDon dialysis (02/22/2011), Fatigue, GERD (gastroesophageal reflux disease), Hyperparathyroidism, secondary renal, Hyperphosphatemia, Inguinal hernia, Insomnia, Kidney transplant recipient, Migraine, Night muscle spasms, Obesity (BMI 30-39.9), Obesity, Class III, BMI 40-49.9 (morbid obesity) (01/29/2019), DEMI on CPAP, Osteoarthritis of knee, Polycystic kidney disease (1999), Snoring, and Umbilical hernia. Past Surgical History: He has a past surgical history that includes cholecystectomy (2004); shoulder surgery (Left, 2007);knee surgery (Left, 1992); hernia repair (Right, 01/08/2012); creation arteriovenous fistula w/ autogenous graft (Left, 2009); tonsillectomy; kidney transplant w/o shoshone-bannock nephrectomy (N/A, 09/25/2016); pr knee scope, menisc transplant (Right, 11/12/2014); adenoidectomy; hernia repair (01/08/2012); creation arteriovenous fistula w/ nonautogenous graft (2009); repair hernia umbilical open w/ mesh (N/A, 05/09/2017); excision fistula lactiferous duct; laparotomy exploratory (N/A, 02/27/2019); hernia repair (02/27/2019); egd diagnostic (N/A, 04/24/2019); gastrectomy longitudinal (sleeve) laparoscopic(N/A, 08/10/2019); egd diagnostic (N/A, 08/10/2019); and appendectomy [...] 4, Warm. No clubbing. No cyanosis. Skin: [place], warm and dry. No rashes noted. Diagnostic [...] with several of these cysts in the shoshone-bannock kidneys have increased density probably secondary to [...] patient and agree with the history, findings, andassessment as documented by Elena Hu N.P., below. I discussed the case with Elena Hu N.P. I have edited the document as appropriate. In addition: Zoie Heath is a 56 y.o. male who presents in consultation for consideration for bilateral robotic shoshone-bannock nephrectomy of polycystic kidneys which are painfully symptomatic. He was referred by Dr. Giraldo. He has a past medical history of umbilical hernia repair and right inguinal hernia repair with mesh. On examination he has a small periumbilical scar and a right lower quadrant Garcia incision.The Garcia incision is the 1 that herniated and was repaired with mesh. The umbilical hernia was repaired separately had a previous occasion and the patient believes he has mesh in this area. I reviewed images from the November 2019 CT scan. The renal transplant is in the right iliac fossa. I advised the patient that I do think a bilateral shoshone-bannock nephrectomy is indicated given his symptoms. I typically perform this operation through the conventional midline open approach. I have discussed the case via e-mail with my colleague Dr. Mccracken who has experience robotic surgeon. I recommended that the patient consult with Dr. Mccracken for consideration of bilateral robotic shoshone-bannock nephrectomy. In the meantime I do not believe he needs any additional imaging. We will refer him to [facility] for preoperative clearance. [facility] Work Phone: 1(215) 446-356306-02-2022 History and physical note* Elena Sanford Mayte, INSURANCE SALES SPECIALIST-CYBER DEFENSE FORENSICS ANALYST - 11/30/2021 11:00 AM EDT Images from the original note were not [...] decreased GFR, Depression (2010), Diverticulosis, Dry skin, ESRDon dialysis (02/22/2011), Fatigue, GERD (gastroesophageal reflux disease), Hyperparathyroidism, secondary renal, Hyperphosphatemia, Inguinal hernia, Insomnia, Kidney transplant recipient, Migraine, Night muscle spasms, Obesity (BMI 30-39.9), Obesity, Class III, BMI 40-49.9 (morbid obesity) (01/29/2019), DEMI on CPAP, Osteoarthritis of knee, Polycystic kidney disease (1999), Snoring, and Umbilical hernia. Past Surgical History: He has a past surgical history that includes cholecystectomy (2004); shoulder surgery (Left, 2007);knee surgery (Left, 1992); hernia repair (Right, 01/08/2012); creation arteriovenous fistula w/ autogenous graft (Left, 2009); tonsillectomy; kidney transplant w/o shoshone-bannock nephrectomy (N/A, 09/25/2016); pr knee scope, menisc transplant (Right, 11/12/2014); adenoidectomy; hernia repair (01/08/2012); creation arteriovenous fistula w/ nonautogenous graft (2009); repair hernia umbilical open w/ mesh (N/A, 05/09/2017); excision fistula lactiferous duct; laparotomy exploratory (N/A, 02/27/2019); hernia repair (02/27/2019); egd diagnostic (N/A, 04/24/2019); gastrectomy longitudinal (sleeve) laparoscopic(N/A, 08/10/2019); egd diagnostic (N/A, 08/10/2019); and appendectomy [...] 4, Warm. No clubbing. No cyanosis. Skin: [place], warm and dry. No rashes noted. Diagnostic [...] with several of these cysts in the shoshone-bannock kidneys have increased density probably secondary to [...] patient and agree with the history, findings, andassessment as documented by Elena Hu N.P., below. I discussed the case with Elena Hu N.P. I have edited the document as appropriate. In addition: Zoie Heath is a 56 y.o. male who presents in consultation for consideration for bilateral robotic shoshone-bannock nephrectomy of polycystic kidneys which are painfully symptomatic. He was referred by Dr. Giraldo. He has a past medical history of umbilical hernia repair and right inguinal hernia repair with mesh. On examination he has a small periumbilical scar and a right lower quadrant Garcia incision.The Garcia incision is the 1 that herniated and was repaired with mesh. The umbilical hernia was repaired separately had a previous occasion and the patient believes he has mesh in this area. I reviewed images from the November 2019 CT scan. The renal transplant is in the right iliac fossa. I advised the patient that I do think a bilateral shoshone-bannock nephrectomy is indicated given his symptoms. I typically perform this operation through the conventional midline open approach. I have discussed the case via e-mail with my colleague Dr. Mccracken who has experience robotic surgeon. I recommended that the patient consult with Dr. Mccracken for consideration of bilateral robotic shoshone-bannock nephrectomy. In the meantime I do not believe he needs any additional imaging. We will refer him to [facility] for preoperative clearance. [facility]* Patient Instructions* Dexter Mcgrath RN - 10/26/2021 10:31 AM EDT - Referral placed with Urology - Return to clinic 09/20/2022 with CORNEL Jones as scheduled [facility] History of Present illness Narrative* Cheryl Baker RN - 10/26/2021 9:45 AM EDT Images from the original note were not included. PREP SHEET FOR NEPHROLOGY CLINIC Patient Name: Zoie Heath Sap Basis Consultant: Chris Curtis Date of Kidney Transplant: 09/25/2016 Primary Disease: Polycystic Kidneys Transplant Feed Mill Manager: Ariel Hooper Primary Care physician: Geovanna Miranda [...] omeprazole, rOPINIRole, sildenafil citrate, tacrolimus, and terbinafine [place] [address] - [place] [address] [facility] [address] Change in lab frequency / new order today: no Labs needed in clinic today? no COORDINATOR NOTES: * Suzie Giraldo MD, PhD - 10/26/2021 9:45 AM EDT Images from the original note were not included. PREP SHEET FOR NEPHROLOGY CLINIC Patient Name: Zoie Heath Sap Basis Consultant: Chris Curtis Date of Kidney Transplant: 09/25/2016 Primary Disease: Polycystic Kidneys Transplant Feed Mill Manager: Ariel Hooper Primary Care physician: Geovanna Miranda [...] omeprazole, rOPINIRole, sildenafil citrate, tacrolimus, and terbinafine [place] [address] [address] - [place] [id number] [address] [facility] [address] Change in lab frequency / new order [...] by mouth as needed for Erectile Dysfunction. 30tablet 2 tacrolimus (PROGRAF) 1 MG capsule Take 5 capsules by mouth 2 times daily. 900 capsule 3 terbinafine 1 % Cream cream Apply to affected area (feet) twice daily 36 g 3 No current facility-administered medications for this visit. Mr. Heath is scheduled to return [facility] the [facility] on Visit date not found [facility] Instructions* Patient Instructions* REYES Shook - 10/09/2021 2:46 PM EDT [...] months. sooner if needed. documented in [facility] encounterC[facility]22 History of Present illness Narrative* Geovanna Miranda, INSURANCE SALES SPECIALIST-CYBER DEFENSE FORENSICS ANALYST - 10/09/2021 2:00 PM EDT History of Present Illness Back Pain Zoie [...] the urge to want to have sex. 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 There is no tenderness. There is norebound and no CVA tenderness. Surgical scars throughout [...] months. sooner if needed. documented in this encounterC[facility]03-21-[facility]22 History of Present illness Narrative* REYES Baires - 09/18/2021 9:30 AM EDT Images from the original note were not included. Today we were happy to see Zoie Heath at [facility] Post Transplant Office for evaluation and management of immunosuppression and associated conditions in the setting of solid organ transplantation. As you may be aware Mr. Heath is a 56 y.o. year-o ld male with a past medical history of [...] underwent a ventral hernia repair by Dr. Saman Erazo in May. Had L upper arm AVF removed in 2018, done by local vascular Dr. Stringer in [facility] in [place], [place]. 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 [...] skin issues, and follow up with his nuclear pharmacist.This, in combination with his current medical regimen should help improve blood pressure, cholesterol levels, energy level, and will help prevent oysterman health complications, and may improve quality and length of life. Return to Clinic: The patient will follow-up with us in clinic in one year however we will see patient earlier shouldthe need arise. We have ordered transplant specific labs per the center s guidelines to monitor andassess for toxicities from immunosuppressant drug therapy. SAPNA Blood CYBER DEFENSE FORENSICS ANALYST Transplant Nurse Practitioner [facility] [place] [address] documented in this encounterM[facility]28-[facility] Evaluation note * Diagnosis Polycystic kidney disease Polycystic kidney, unspecified type -donor 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/25/2016 Kidney replaced by transplant [facility] Diagnosis Kidney replaced by transplant- Primary Abnormal blood chemistry Other abnormal blood chemistry Immunosuppressed status Unspecified disorder of immune mechanism Aftercare following organ transplant High risk medication use Encounter for long-term (current) use of other medications [facility] Diagnosis Polycystic kidney disease- Primary Polycystic kidney, unspecified type Acute bilateral low back pain without sciatica Erectile dysfunction, unspecified erectile dysfunction type -donor 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/25/2016 Kidney replaced by transplant Lack of sexual desire Hypoactive sexual desire disorder [facility] Diagnosis Acute bilateral low back pain without sciatica [facility] Diagnosis Kidney replaced by transplant- Primary [...] laparoscopic sleeve gastrectomy [facility] Diagnosis Polycystic kidney disease- Primary Polycystic kidney, unspecified type Gastroesophageal reflux disease without esophagitis Esophageal reflux S/P laparoscopic sleeve gastrectomy [facility] Diagnosis Preop exam for internal [...] kidney, unspecified type [facility] Diagnosis Erectile dysfunction, unspecified erectile dysfunction type- Primary Gastroesophageal reflux disease without esophagitis Esophageal reflux Environmental and seasonal allergies Polycystic kidney disease Polycystic kidney, unspecified type [facility]* Diagnosis Low testosterone in male- Primary Acute bacterial conjunctivitis of right eye [facility]* Diagnosis Redness of right eye- Primary Redness or discharge of eye [facility]* Diagnosis Viral URI- Primary Acute upper respiratory infections of unspecified site documented in this encounter [facility] note* Diagnosis Sinusitis, unspecified chronicity, unspecified location- Primary Acute conjunctivitis of both eyes, unspecified acute conjunctivitis type documented in this encounter [facility] note* Diagnosis Sinusitis, unspecified chronicity, unspecified location- Primary Acute conjunctivitis of both eyes, unspecified acute conjunctivitis type documented in this encounter [facility] note* Diagnosis Laceration of right hand without foreign body, initial encounter- Primary documented in this encounter [facility]* Diagnosis Dog bite of right hand with infection, initial encounter- Primary documented in this encounter [facility] note* Diagnosis Dog bite, initial encounter- Primary Encounter for post surgical wound check documented in this encounter [facility] note* Diagnosis Class 2 severe obesity with serious comorbidity and body mass index (BMI) of 36.0 to 36.9 in adult,unspecified obesity type- Primary Gastroesophageal reflux disease without esophagitis Esophageal reflux S/P laparoscopic sleeve gastrectomy [facility]* Diagnosis Sprain of right ankle, unspecified ligament, initial encounter- Primary Sprain of right foot, initial encounter [facility] Diagnosis Acute right ankle pain- Primary Sprain of right medial ankle joint, initial encounter documented in this encounter [facility] note* Diagnosis Right foot pain- Primary Pain in limb Sprain of right ankle, unspecified ligament, initial encounter documented in this encounter [facility] note* Diagnosis Lentigines- Primary Other dyschromia Skin [...] behavior of skin [facility]* Diagnosis Gastroesophageal reflux disease without esophagitis Esophageal reflux S/P laparoscopic sleeve gastrectomy [facility] this [facility]* Diagnosis Gastroesophageal reflux disease, unspecified whether esophagitis present- Primary Class 2 severe obesity with serious comorbidity and body mass index (BMI) of 35.0 to 35.9 in adult,unspecified obesity type Obstructive sleep apnea (adult) (pediatric) Vitamin D deficiency Unspecified vitamin D deficiency Iron deficiency Other disorders of iron metabolism Medication management Encounter for other specified aftercare S/P laparoscopic sleeve gastrectomy At risk for inadequate intake of multiple nutrients Pre-op testing Preoperative examination, unspecified History of obstructive sleep apnea [facility] Diagnosis S/P laparoscopic sleeve gastrectomy History of obstructive sleep apnea [facility] Diagnosis Gastroesophageal reflux disease without esophagitis- Primary Esophageal reflux Seborrheic dermatitis Seborrheic dermatitis, unspecified Tinea pedis, unspecified laterality Morbid obesity Right ear impacted cerumen Impacted cerumen [facility]* Diagnosis Obstructive sleep apnea (adult) (pediatric) [G47.33]- Primary Obstructive sleep apnea (adult) (pediatric) S/P laparoscopic sleeve gastrectomy History of obstructive sleep apnea [facility] Diagnosis Obstructive sleep apnea (adult) (pediatric) [G47.33]- Primary Obstructive sleep apnea (adult) (pediatric) [facility] Diagnosis Morbid obesity- Primary Acute right ankle pain Gastroesophageal reflux disease without esophagitis Esophageal reflux Benign hypertension Essential hypertension, benign DEMI (obstructive sleep apnea) Obstructive sleep apnea (adult) (pediatric) [facility]* Diagnosis Gastroesophageal reflux disease without esophagitis- Primary Esophageal reflux Morbid obesity Gastroesophageal reflux disease without esophagitis Esophageal reflux Morbid obesity [facility] Diagnosis Encounter for weight loss counseling- Primary Gastroesophageal reflux disease without esophagitis Esophageal reflux Morbid obesity [facility]* Diagnosis Onset Date Resolution Status History of gastric bypass acuteHistory of kidney transplantacuteScreening for lipid disordersacute Screening for prostate canceracute [facility] Work Phone: Evaluation note* Diagnosis Preop exam [...] Morbid obesity [facility]* Diagnosis Elective surgery- Primary Unspecified elective surgery for purposes other than remedying health states Gastroesophageal reflux disease without esophagitis Esophageal reflux Morbid obesity Preop exam for internal medicine Other specified pre-operative examination Hydronephrosis, unspecified hydronephrosis type Nausea Nausea alone Hyperkalemia Hyperpotassemia Obesity Obesity, unspecified [facility]* Diagnosis Urinary retention- Primary Retention of urine, unspecified [facility]* Diagnosis Onset Date Resolution Status Anxiety acuteDepressionacuteGERD (gastroesophageal reflux disease)acuteHistory of gastric bypassacuteHistory of kidney transplantacuteHypertensionacuteOSA (obstructive sleep apnea)acuteRight ankle painacuteScreening for lipid disorders acuteScreening for prostate canceracuteElevated serum creatinineacuteHistory of kidney transplantacuteHospital discharge follow-[facility] Work Phone: Evaluation note* Diagnosis Encounter for weight loss counseling- Primary [facility]* Diagnosis Gastroesophageal reflux disease without esophagitis- Primary Esophageal reflux [facility]* Diagnosis Urinary retention- Primary Retention of urine, unspecified Urinary retention Retention of urine, unspecified [facility]* Diagnosis Kidney replaced by transplant- Primary Abnormal blood chemistry Other abnormal blood chemistry Aftercare following organ transplant Immunosuppressed status Unspecified disorder of immune mechanism High risk medication use Encounter for long-term (current) use of other medications Hydronephrosis, unspecified hydronephrosis type Hyperkalemia Hyperpotassemia [facility]* Diagnosis Urinary retention Retention of urine, unspecified [facility]* Diagnosis S/P bypass gastrojejunostomy- Primary Intestinal bypass or anastomosis status Class 1 obesity with serious comorbidity and body mass index (BMI) of 33.0 to 33.9 in adult, unspecified obesity type Post-operative state Other postprocedural status History of obstructive sleep apnea History of morbid obesity [facility] Diagnosis S/P bypass gastrojejunostomy- Primary Intestinal bypass or anastomosis status Class 1 obesity with serious comorbidity and body mass index (BMI) of 33.0 to 33.9 in adult, unspecified obesity type Post-operative state Other postprocedural status History of obstructive sleep apnea History of morbid obesity Encounter for weight loss counseling- Primary [facility] Diagnosis S/P bypass gastrojejunostomy- Primary Intestinal bypass or anastomosis status Class 1 obesity with serious comorbidity and body mass index (BMI) of 33.0 to 33.9 in adult, unspecified obesity type Post-operative state Other postprocedural status History of obstructive sleep apnea History of morbid obesity Encounter for weight loss counseling- Primary [facility]* Diagnosis S/P bypass gastrojejunostomy- Primary Intestinal [...] multiple nutrients [facility]* Diagnosis Onset Date Resolution Status Admit Date Anxiety acuteAugust 2024 8:53amCKD (chronic kidney disease)acuteAugust 2024 8:53amDepressionacuteAugust 2024 8:53amGERD (gastroesophageal reflux disease)acuteAugust 2024 8:53amHistory of gastric bypassacuteAugust 2024 8:53amHistory of kidney transplantacuteAugust 2024 8:53amHypertension acuteAugust 2024 8:53amOSA (obstructive sleep apnea)acuteAugust 2024 8:53amRight ankle painacuteAugust 2024 8:53amScreening for lipid disordersacuteAugust 2024 8:53amScreening for prostate canceracuteAugust 2024 8:53amSeasonal allergic rhinitisacuteAugust 2024 8:53amWellness examinationacuteAugust 2024 8:53am [facility] Work Phone: Hospital Discharge instructions* Attachments The following attachments cannot be sent through Care Everywhere. * Hand Laceration: Stitches ([place]) documented in this encounterCleveland ClinicHospital Discharge instructions* Attachments The following attachments cannot be sent through Care Everywhere. * Pain and Pain Control ([facility]) ([place]) [facility]* Attachments The following attachments cannot be sent through Care Everywhere. * Bites: Animal ([place]) documented in this encounterOhioHealthInstructions* Attachments The following attachments cannot be sent through Care Everywhere. * Ankle Sprain ([place]) documented in this encounterCleveland ClinicRefult[facility] for [facility] (narrative)* Consultation (Routine) - New RequestSpecialtyDiagnoses / ProceduresReferred By ContactReferred To ContactUrology Diagnoses Kidney replaced by transplant Aftercare following organ transplant Suzie Giraldo MD, PhD [address] [place] [address] Referral IDStatusReasonStart DateExpiration DateVisits RequestedVisits [id number] Request/ [facility] (narrative)* Consultation (Urgent) - New RequestSpecialtyDiagnoses / ProceduresReferred By ContactReferred To ContactFamily Medicine Diagnoses Sprain of right ankle, unspecified ligament, initial encounter Sprain of right foot, initial encounter Ilia Shaffer MD [address] [place] [address] Geovanna Miranda, INSURANCE SALES SPECIALIST-CYBER DEFENSE FORENSICS ANALYST [address] [place] [address] Referral IDStatusReasonStart DateExpiration DateVisits RequestedVisits [id number] Request/ [facility] for referral (narrative)* Consultation (Routine) - New RequestSpecialtyDiagnoses / ProceduresReferred By ContactReferred To Contact Podiatry Diagnoses Acute right ankle pain Sprain of right medial ankle joint, initial encounter Geovanna Miranda, INSURANCE SALES SPECIALIST-CYBER DEFENSE FORENSICS ANALYST [address] [place] [address] Javan Diego [facility] [address] [place] [address] Referral IDStatusReasonStart DateExpiration DateVisits RequestedVisits [id number]/ [facility] for referral (narrative)* Consultation (Routine) - New RequestSpecialtyDiagnoses / ProceduresReferred By ContactReferred To Contact PreOp Diagnoses Gastroesophageal reflux disease without esophagitis Griselda Gallegos MD [address] [place] [address] Referral IDStatusReasonStart DateExpiration DateVisits RequestedVisits [id number] Request/ [facility] for referral (narrative)* Consultation (Routine) - New RequestSpecialtyDiagnoses / ProceduresReferred By ContactReferred To ContactTransplant Surgery Diagnoses Hydronephrosis, unspecified hydronephrosis type Griselda Gallegos MD [address] [place] [address] Referral IDStatusReasonStart DateExpiration DateVisits RequestedVisits [id number] Request/ * Consultation (Routine) - New RequestSpecialtyDiagnoses / ProceduresReferred By ContactReferred To ContactUrology Diagnoses Hydronephrosis, unspecified hydronephrosis type Griselda Gallegos MD [address] [place] [address] Referral IDStatusReasonStart DateExpiration DateVisits RequestedVisits [id number] Request/ * (Routine)SpecialtyDiagnoses / ProceduresReferred By ContactReferred To Contact [address] [place] [address] Referral IDStatusReasonStart DateExpiration DateVisits RequestedVisits Authorized * Radiology (Routine) - New RequestSpecialtyDiagnoses / ProceduresReferred By ContactReferred To Contact Procedures US RENAL TRANSPLANT SCAN Griselda Gallegos MD [address] [place] [address] Referral IDStatusReasonStart DateExpiration DateVisits RequestedVisits [id number] Request9/25/ * Radiology (Routine) - New RequestSpecialtyDiagnoses / ProceduresReferred By ContactReferred To Contact Procedures US RENAL TRANSPLANT SCAN Griselda Gallegos MD [address] [place] [address] Referral IDStatusReasonStart DateExpiration DateVisits RequestedVisits [id number] Request/ * Unlisted Procedure Code (Routine) - New RequestSpecialtyDiagnoses / Procedures Referred By ContactReferred To Contact Procedures PLATELET MONITORING PER PROTOCOL Jyotsna Bahena MD [address] [place] [address] Referral IDStatusReasonStart DateExpiration DateVisits RequestedVisits [id number] Request/ * Unlisted Procedure Code (Routine) - New RequestSpecialtyDiagnoses / Procedures Referred By ContactReferred To Contact Procedures DVT/VTE RISK ASSESSMENT Jyotsna Bahena MD [address] [place] [address] Referral IDStatusReasonStart DateExpiration DateVisits RequestedVisits [id number] Request/ [facility] (narrative)No reason for referral information availablePremier Health Work Phone: Reason for visit Narrative* Auth/CertSpecialty Diagnoses / ProceduresReferred By ContactReferred To Contact Diagnoses Gastroesophageal reflux disease without esophagitis Morbid obesity Gastroesophageal reflux disease without esophagitis [K21.9] Morbid obesity [E66.01] Procedures NV UNLISTED LAPAROSCOPY PROCEDURE STOMACH NV ESOPHAGOGASTRODUODENOSCOPY TRANSORAL DIAGNOSTIC CONVERSION SLEEVE TO MAY-EN-Y GASTRIC BYPASS LAPAROSCOPIC EGD DIAGNOSTIC Griselda Gallegos MD [address] [place] [address] [facility] [address] [place] [address] Referral IDStatusReasonStart DateExpiration DateVisits RequestedVisits [id number] [facility] Summary Purpose Family History No Family History Records Found Relationship Condition Age at Onset Recorded Date/T mari mother Hypertension Unknown Advance Directives No Advanced Directives Records FoundLatest Code Status on File Code StatusDate ActivatedDate InactivatedCommentsFull Code12/26/2019 9:39 AMFull Code08/11/2019 5:40 AM12/26/2019 9:39 AMFull Code08/10/2019 11:52 AM08/10/2019 5:13 PMFull Code02/28/2019 5:06 AM08/10/2019 11:52 AMFull Code02/28/2019 5:06 AM 02/28/2019 5:06 AMCode StatusDate ActivatedDate InactivatedCommentsFull Code 12/26/2019 9:39 AMFull Code08/11/2019 5:40 AM12/26/2019 9:39 AMFull Code08/10/2019 11:52 AM08/10/2019 5:13 PMFull Code02/28/2019 5:06 AM08/10/2019 11:52 AMFull Code 02/28/2019 5:06 AM02/28/2019 5:06 AMCode StatusDate ActivatedDate Inactivated CommentsFull Code01/23/2022 5:28 AM01/23/2022 4:46 PMFull Code12/26/2019 9:39 AM 01/23/2022 5:28 AMCode StatusDate ActivatedDate InactivatedCommentsFull Code 01/23/2022 5:28 AM01/23/2022 4:46 PMCode StatusDate ActivatedDate Inactivated CommentsFull Code12/26/2019 9:39 AM01/23/2022 5:28 AMFull Code08/11/2019 5:40 AM 12/26/2019 9:39 AMFull Code08/10/2019 11:52 AM08/10/2019 5:13 PMFull Code02/28/2019 5:06 AM08/10/2019 11:52 AMCode StatusDate ActivatedDate InactivatedCommentsFull Code01/23/2022 5:28 AM01/23/2022 4:46 PMCode StatusDate ActivatedDate Inactivated CommentsFull Code12/26/2019 9:39 AM01/23/2022 5:28 AMFull Code08/11/2019 5:40 AM 12/26/2019 9:39 AMFull Code08/10/2019 11:52 AM08/10/2019 5:13 PMFull Code02/28/2019 5:06 AM08/10/2019 11:52 AMDate ActivatedDate InactivatedComments01/23/2022 5:28 AM 01/23/2022 4:46 PMDate ActivatedDate InactivatedComments12/26/2019 9:39 AM 01/23/2022 5:28 AMDate ActivatedDate InactivatedComments08/11/2019 5:40 AM 12/26/2019 9:39 AMDate ActivatedDate InactivatedComments08/10/2019 11:52 AM 08/10/2019 5:13 PMDate ActivatedDate InactivatedComments02/28/2019 5:06 AM 08/10/2019 11:52 AMDate ActivatedDate InactivatedComments01/23/2022 5:28 AM 01/23/2022 4:46 PMDate ActivatedDate InactivatedComments12/26/2019 9:39 AM 01/23/2022 5:28 AMDate ActivatedDate InactivatedComments08/11/2019 5:40 AM 12/26/2019 9:39 AMDate ActivatedDate InactivatedComments08/10/2019 11:52 AM 08/10/2019 5:13 PMDate ActivatedDate InactivatedComments02/28/2019 5:06 AM 08/10/2019 11:52 AM Advance Directive Response Recorded Date/ Time Advance Directives No August 01, 2018 3:35pm Date ActivatedDate InactivatedComments02/27/2024 8:23 PMDate ActivatedDate InactivatedComments01/23/2022 5:28 AM01/23/2022 4:46 PMDate ActivatedDate InactivatedComments12/26/2019 9:39 AM01/23/2022 5:28 AMDate ActivatedDate InactivatedComments08/11/2019 5:40 AM12/26/2019 9:39 AMDate ActivatedDate InactivatedComments08/10/2019 11:52 AM08/10/2019 5:13 PMDate ActivatedDate InactivatedComments03/23/2024 8:42 AMDate ActivatedDate InactivatedComments 02/27/2024 8:23 PM03/23/2024 8:42 AMDate ActivatedDate InactivatedComments 01/23/2022 5:28 AM01/23/2022 4:46 PMDate ActivatedDate InactivatedComments 12/26/2019 9:39 AM01/23/2022 5:28 AMDate ActivatedDate InactivatedComments 08/11/2019 5:40 AM12/26/2019 9:39 AMDate ActivatedDate InactivatedComments 03/23/2024 8:42 AMDate ActivatedDate InactivatedComments02/27/2024 8:23 PM 03/23/2024 8:42 AMDate ActivatedDate InactivatedComments01/23/2022 5:28 AM 01/23/2022 4:46 PMDate ActivatedDate InactivatedComments12/26/2019 9:39 AM 01/23/2022 5:28 AMDate ActivatedDate InactivatedComments08/11/2019 5:40 AM 12/26/2019 9:39 AM Reason for Referral StatusReasonSpecialtyDiagnoses / ProceduresReferred By ContactReferred To ContactAut Not Needed Diagnoses Chronic pain of right knee Osteoarthritis of right knee, unspecified osteoarthritis type Procedures MRI KNEE RIGHT WITHOUT CONTRAST NV MRI LOWER EXTREM JT, W/O CONTRAST Ari Ireland MD [address] [place] [id number] StatusReasonSpecialtyDiagnoses / ProceduresReferred By ContactReferred To ContactNew Request Diagnoses Chronic pain of right knee Procedures XR KNEE RIGHT 4+ VIEWS Ari Ireland MD [address] [place], [place] [id number] StatusReasonSpecialtyDiagnoses / ProceduresReferred By ContactReferred To ContactNew Request Diagnoses Chronic pain of right knee Procedures XR BONE LENGTH STUDY Ari Ireland MD [address] [place] [address] SpecialtyDiagnoses / ProceduresReferred By ContactReferred To Contact Diagnoses Polycystic kidney disease -donor kidney transplant Procedures RENAL TrGeovanna sutton, INSURANCE SALES SPECIALIST-CYBER DEFENSE FORENSICS ANALYST [address] [place] [address] Referral IDStatusReasonStart DateExpiration DateVisits RequestedVisits [id number] Not [id number] / ProceduresReferred By ContactReferred To ContactUltrasound Diagnoses Polycystic kidney disease -donor kidney transplant Procedures RENAL TrGeovanna sutton, INSURANCE SALES SPECIALIST-CYBER DEFENSE FORENSICS ANALYST [address] [place] [address] Jared Buc [facility] [address] [place] [address] Referral IDStatusReasonStart DateExpiration DateVisits RequestedVisits [id number]/11/20225/6/687509YheksgjvkIrguhlaur / Procedures Referred By ContactReferred To ContactPreOp Diagnoses Polycystic kidney disease Elena Hu, INSURANCE SALES SPECIALIST-CYBER DEFENSE FORENSICS ANALYST [address] [place] [address] Referral IDStatusReasonStart DateExpiration DateVisits RequestedVisits [id number] [id number] / Procedures Referred By ContactReferred To ContactPodiatry / Physical Therapy Diagnoses Right foot pain Sprain of right ankle, unspecified ligament, initial encounter Javan Diego DPM [address] [place] [address] [facility] [address] [address] Referral IDStatusBevasonCorning DateExpiration DateVisits RequestedVisits [id number] - Community [id number] Scheduling Instructions . SpecialtyDiagnoses / ProceduresReferred By ContactReferred To Contact Diagnoses Gastroesophageal reflux disease without esophagitis S/P laparoscopic sleeve gastrectomy Procedures INTERVENTIONAL UPPER ENDOSCOPY NV ESOPHAGOGASTRODUODENOSCOPY TRANSORAL DIAGNOSTIC Liza Penn INSURANCE SALES SPECIALIST-CYBER DEFENSE FORENSICS ANALYST [address] [facility] [address] [place] [address] Referral IDStatusReasonart DateExpiration DateVisits RequestedVisits [id number] [id number] / ProceduresReferred By ContactReferred To Contact Diagnoses S/P laparoscopic sleeve gastrectomy Vitamin D deficiency Iron deficiency Medication management Procedures ECG Liza Penn, INSURANCE SALES SPECIALIST-CYBER DEFENSE FORENSICS ANALYST [address] [facility] [address] [place] [address] Referral IDStatusReasonCorning DateExpiration DateVisits RequestedVisits [id number] [id number] / Procedures Referred By ContactReferred To Contact Diagnoses S/P laparoscopic sleeve gastrectomy History of obstructive sleep apnea Obstructive sleep apnea (adult) (pediatric) Procedures SCHEDULE HOME SLEEP STUDY Liza Penn INSURANCE SALES SPECIALIST-CYBER DEFENSE FORENSICS ANALYST [address] [facility] [address] [place] [address] Referral IDStatusasonCorning DateExpiration DateVisits RequestedVisits [id number] [id number] / Procedures Referred By ContactReferred To Contact Diagnoses Obstructive sleep apnea (adult) (pediatric) Procedures CPAP / BPAP SETUP FOR HOME Richardson, Cait M, MD [address] [place] [address] Referral IDStatusReasonStart DateExpiration DateVisits RequestedVisits [id number] Request/[id number] / Procedures Referred By ContactReferred To Contact Diagnoses Urinary retention Procedures US RENAL TRANSPLANT SCAN Isabell Frank MD [address] [facility] [address] [place] [address] Referral IDStatusReasonStart DateExpiration DateVisits RequestedVisits [id number] Sqqpfpj51/ History of Present Illness * Ari Ireland MD - 05/15/2018 2:50 PM EST Formatting of this note may be different from the original. Dictation on: 05/15/2018 3:50 PM by: ARI IRELAND [[email or web address]] I have reviewed the findings of the clinical peer support specialist and agree with their assessment. Ari Ireland MD Ortho Nurse Patient Intake Room#: 1 Right knee pain Has had cortisone and just finished up Euflexxa injections with no help, PT years ago Date: 05/15/2018 3:12 PM Patient: Zoie Heath MR#: [id number] : 1965 Age: 52 y.o. Referring Physician: [...] Location: [facility] MAIN OR KIDNEY TRANSPLANT W/O SEMINOLE NEPHRECTOMY N/A 09/25/2016 Laterality: N/A; Surgeon: Jose Shaw MD; Location: [facility] MAIN OR NV KNEE SCOPE, MENISC TRANSPLANT Right 11/12/2014 right [...] []cane, []bracing Are you followed by a interpreter for the deaf? [] [x] Name: Are you followed by [...] 05/15/2018 3:12 PM Patient: Zoie Heath MR#: [id number] : 1965 Age: 52 y.o. Referring Physician: [...] Presence of Pain: complains of pain/discomfort (05/15/18 150) Pain Location: knee, right (05/15/18 1509) Select Pain Scale: DVPRS (Defense and Veterans Pain Rating Scale) (Adult- Cognitively Intact) (05/15/18 1509) Pain Location: knee, right (05/15/18 1509) Select Pain Scale: DVPRS (Defense and Veterans Pain Rating Scale) (Adult- Cognitively Intact) (05/15/18 7318) Recent Labs No results found for: CRP [...] Location: [facility] MA[facility] OR KIDNEY TRANSPLANT W/O SEMINOLE NEPHRECTOMY N/A 09/25/2016 Laterality: N/A; Surgeon: Jose Shaw MD; Location: [facility] MAIN OR NV KNEE SCOPE, MENISC TRANSPLANT Right 11/12/2014 right [...] []cane, []bracing Are you followed by a interpreter for the deaf? [] [x] Name: Are you followed by [...] have dentures? no in this encounter Assessments DiagnosisOsteoarthritis of right knee, unspecified osteoarthritis type - Primary Chronic pain of right knee Chief Complaint and Reason for Visit Chief Complaint Establish Reason for Visit History of gastric b ypass History of kidney transplant Screening for lipid disorders Screening for prostate cancer Chief Complaint Establish [facility]Reason for VisitAnxiety Depression GERD (gastroesophageal reflux disease) History of gastric bypass History of kidney transplant Hypertension DEMI (obstructive sleep apnea) Right ankle pain Screening for lipid disorders Screening for prostate cancer Elevated serum creatinine History of kidney transplant Hospital discharge follow-up Low hemoglobin Chief Complaint Admit Date wellness February 25, 2025 8: 53am Reason for Visit Admit Date Anxiety February 25, 2025 8: 53am CKD (chronic kidney disease) January 8:53am Depression February 25, 2025 8: 53am GERD (gastroesophageal reflux disease) A ugust 2024 8:53am History of gastric bypass February 25, 025 8:53am History of kidney transplant January 8:53am Hypertension February 25, 2025 8: 53am DEMI (obstructive sleep apnea) January 8:53am Right ankle pain February 25, 2025 8: 53am Screening for lipid disorders January 8:53am Screening for prostate cancer January 8:53am Seasonal allergic rhinitis February 25, 2025 8:53am Wellness examination February 25, 2025 8 :53am Additional Source Comments (unrecognized sect ion and content) No Status Records FoundNo Status Records FoundNo Status Records FoundNo Status Records FoundNo Status Records FoundNo Status Records FoundNo Status Records FoundNo Status Records Found INFORMATION SOURCE (unrecogn ized section and content) DATE CREATED AUTHOR 12/24/[address] [facility] DATE CREATED AUTHOR AUTHOR'S ORGANIZ ATION 12/25/2017 [facility] DATE CREATED AUTHOR AUTHOR'S ORGANIZ ATION 07/02/2018 [facility] DATE CREATED AUTHOR AUTHOR'S ORGANIZ ATION 08/19/2018 [facility] DATE CREATED AUTHOR AUTHOR'S ORGANIZ ATION 10/31/2022 [facility] DATE CREATED AUTHOR AUTHOR'S ORGANIZ ATION 01/18/2024 [facility] DATE CREATED AUTHOR AUTHOR'S ORGANIZ ATION 02/22/2024 [facility] DATE CREATED AUTHOR AUTHOR'S ORGANIZ ATION 03/09/2025 [facility] Reason for Visit (unrecogniz ed section and content) ReasonCommentsNew PatientSpecialtyDiagnoses / ProceduresReferred By Contact Referred To ContactPulmonary Disease / Sleep Medicine Diagnoses new bariatric Procedures NEW BARIATRIC PATIENT Self, Self Cait Richardson MD [address] [place] [address] Referral IDStatusReasonStart DateExpiration DateVisits RequestedVisits [id number] Request/[id number]Whukrocb Medication RefillStatusReasonSpecialtyDiagnoses / ProceduresReferred By Contact Referred To ContactClosed Diagnoses Chronic pain of right knee Osteoarthritis of right knee, unspecified osteoarthritis type Procedures MRI KNEE RIGHT WITHOUT CONTRAST NV MRI LOWER EXTREM JT, W/O CONTRAST Ari Ireland MD [address] [place] [address] StatusReasonSpecialtyDiagnoses / ProceduresReferred By ContactReferred To ContactNew Request Diagnoses Chronic pain of right knee Procedures XR BONE LENGTH STUDY Ari Ireland MD [address] [place] [address] ReasonCommentsKidney Recipient Follow-upReasonCommentsBack PainSpecialty Diagnoses / ProceduresReferred By ContactReferred To ContactUltrasound Diagnoses Polycystic kidney disease -donor kidney transplant Procedures RENAL Gevoanna Miranda, INSURANCE SALES SPECIALIST-CYBER DEFENSE FORENSICS ANALYST [address] [place] [address] Jared Buc [facility]trasound [address] [place] [address] Referral IDStatusReasonStart DateExpiration DateVisits RequestedVisits [id number]/11/20225/6/770738SakhnnHjysjeruNkswwy Recipient Follow-upSpecialtyDiagnoses / ProceduresReferred By ContactReferred To Contact Urology Diagnoses Kidney replaced by transplant Aftercare following organ transplant Suzie Giraldo MD, PhD [address] [place] [address] Referral IDStatusReasonStart DateExpiration DateVisits RequestedVisits [id number] [id number]-zymkwznco ConsultationSpecialtyDiagnoses / ProceduresReferred By ContactReferred To ContactPreOp Diagnoses Polycystic kidney disease Elena Hu, INSURANCE SALES SPECIALIST-CYBER DEFENSE FORENSICS ANALYST [address] [place] [address] Referral IDStatusReasonStart DateExpiration DateVisits RequestedVisits [id number] [id number] DysfunctionEsophageal RefluxOtherAllergiesReasonCommentsOtherLow testosterone ReasonCommentsEye ProblemRight eye redness x2 days, denies injury and painReason CommentsIllnessLeft ear pain, congestion, cough, body aches, chills. Does not want covid test. Pt has kidney transplant, concerned about which meds he can take for cold/fluReasonCommentsIllnessWas seen , Pt still has runny nose, cough, woke up with matted eyesReasonCommentsLacerationPatient ambulatory to ED 1 with complaints of a laceration to his right hand while working on some machinery in the basement this morning. He states it was not crushed nor does he have any reason to believe it is broken.ReasonCommentsWound CheckPatient got bit by a dog on 10/24, went to ER they closed with stitches, now his entire right hand is swollen going up past his wrist with increased pain in the palm ReasonCommentsED Follow-upWas dog bitten 10/24/22 was at ER and received four stitches, follow up with Urgent Care on Saturday, received two abx at that time. Is following up with Geovanna today.ReasonCommentsFollow-upHere to discuss weight loss medication. Had sleeve 2019. Kidney transplant recipient. Does cardio/we ight lifting 3x weekly. Tries to follow low CHO meal plan. Gets 60 gm protein daily and drinks >60 oz fluid daily. Weight has increased 11# since 11/15/22. ReasonCommentsFoot PainFell and injured inside of right foot at 1530 today. 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 DOI 03/11/23(39 days) Michael Wrap from ED with minimal relief. 4/10 pain at rest, 6/10 pain with WB/Activity.SpecialtyDiagnoses / ProceduresReferred By ContactReferred To ContactPodiatry Diagnoses Acute right ankle pain Sprain of right medial ankle joint, initial encounter Geovanna Miranda, INSURANCE SALES SPECIALIST-CYBER DEFENSE FORENSICS ANALYST [address] [place] [address] Javan Diego DPM [address] [place] [address] Referral IDStatusReasonStart DateExpiration DateVisits RequestedVisits [id number] Bmxwwlx08/[id number] Exam SpecialtyDiagnoses / ProceduresReferred By ContactReferred To Contact Diagnoses Gastroesophageal reflux disease without esophagitis S/P laparoscopic sleeve gastrectomy Procedures INTERVENTIONAL UPPER ENDOSCOPY NV ESOPHAGOGASTRODUODENOSCOPY TRANSORAL DIAGNOSTIC Liza Penn, INSURANCE SALES SPECIALIST-CYBER DEFENSE FORENSICS ANALYST [address] [facility] [address] [place] [address] Referral IDStatusReasonStutopia DateExpiration DateVisits RequestedVisits [id number] Review/[id number] Patient Presents for surgical weight management evaluation. Is [...] strength training 2-3 days per week for 60- 90 minutes.ReasonCommentsRecord ReviewReasonCommentsSleep StudyHypersomnia SpecialtyDiagnoses / ProceduresReferred By ContactReferred To Contact Diagnoses S/P laparoscopic sleeve gastrectomy History of obstructive sleep apnea Obstructive sleep apnea (adult) (pediatric) Procedures SCHEDULE HOME SLEEP STUDY Liza Penn, INSURANCE SALES SPECIALIST-CYBER DEFENSE FORENSICS ANALYST [address] [facility] [address] [place] [address] Referral IDStatusReasonCorning DateExpiration DateVisits RequestedVisits [id number] Request/[id number] Management SessionReasonCommentsFollow-up6 WeeksSeborrheic DermatitisOthertinea pedis,Right ear impacted cerumenMorbid ObesityReasonCommentsHeartburnHere to schedule Gastro J due to GERD. Sleeve 08/10/2019 GERD started 18 months ago. Pre op weight 249 lbs, lowest post op 194 lbs. +DEMI getting C pap next week.Specialty Diagnoses / ProceduresReferred By ContactReferred To ContactGeneral Surgery Diagnoses Pre op Pt Name: Zoie Heath MD: Dr. Gallegos Insurance: An[employer] Medicare Auth#: [id number] Procedure: 92161 (Gj), 00961 (Revision), 14626 (EGD) DOS: 05/08/24 - filler date Inpatient stay Procedures NEW BARIATRIC PATIENT Rodrigo Saravia MD [address] [place] [address] Griselda Gallegos MD [address] [place] [address] Referral IDStatusReasonCorning DateExpiration DateVisits RequestedVisits [id number] Request/[id number]-ds SpecialtyDiagnoses / ProceduresReferred By ContactReferred To ContactPreOp Diagnoses Gastroesophageal reflux disease without esophagitis Griselda Gallegos MD [address] [place] [address] Referral IDStatusRe[facility] DateExpiration DateVisits RequestedVisits [id number] Request/[id number] Op VisitHere for first post op visit for sleeve to RNY 03/23/24. Denies n/v. No heartburn, no dysphagia. Bowels move daily. Incisions with no redness or swelling. Drinking > 64 oz daily andgetting > 60 gm protein daily.Weight is unchanged since DOS. Will meet with RD for nutrition education.ReasonCommentsNew Patient HydronephrosisSpecialtyDiagnoses / ProceduresReferred By ContactReferred To ContactUrology Diagnoses Hydronephrosis, unspecified hydronephrosis type Griselda Gallegos MD [address] [place] [address] Referral IDStatNguyenCorning DateExpiration DateVisits RequestedVisits [id number] Request/[id number] / ProceduresReferred By ContactReferred To Contact Diagnoses Urinary retention Procedures US RENAL TRANSPLANT SCAN Isabell Frank MD [address] [facility] [address] [place] [address] Referral IDStatusReasonStart DateExpiration DateVisits RequestedVisits [id number] Zyanzsc96/22/643632/[id number]-ubHypbjn to May-En-Y 03/23/2024. Had some N/V 10 days ago, thinks it was eating too much, no problemssince. Fluid intake 1 gallon per day, protein intake eats first every meal, 1 shake per day. Bowelsworking well. Exercise is walking .5-1 mile daily, Weight is down 15 lbs from last visit and DOS.ReasonCommentsFollow-up Presents for surgical weight management follow up s/p GJ on 03-23-24. Weight is down 6# since last clinic visit on 04-23-24 and down 22# since DOS. He denies any nausea, vomiting, diarrhea, constipation, bloating and symptoms of reflux. Is drinking 64 oz of fluid and taking in 60-80 grams of proteindaily. For exercise he is walking 4-5 days per week for 60-90 minutes. Care Teams (unrecognized sec tion and content) Team MemberRelationshipSpecialtyStart DateEnd Date Transplant, Coordinator [address] [place] [address] PCP - Transplant Coordinator08/23/10 Geovanna Miranda APRN-CYBER DEFENSE FORENSICS ANALYST PCP - GeneralNurse Practitioner - Family07/16/17Team MemberRelationshipSpecialty Start DateEnd Date Transplant, Coordinator [address] [place] [address] PCP - Transplant Coordinator2 Geovanna Miranda APRN-CYBER DEFENSE FORENSICS ANALYST PCP - GeneralNurse Practitioner - Family07/16/17Team MemberRelationshipSpecialty Start DateEnd Date Transplant, Coordinator [address] [place] [address], [place] [address] PCP - Transplant Coordinator08/23/10 Geovanna Miranda APRN-CYBER DEFENSE FORENSICS ANALYST PCP - GeneralNurse Practitioner - Family07/16/17Team MemberRelationshipSpecialty Start DateEnd Date Transplant, Coordinator [address] [place] [address], [place] [address] PCP - Transplant Coordinator08/23/10 Geovanna Miranda APRN-CYBER DEFENSE FORENSICS ANALYST PCP - GeneralNurse Practitioner - Family07/16/17Team MemberRelationshipSpecialty Start DateEnd Date Transplant, Coordinator [address] [place] [address] PCP - Transplant Coordinator08/23/10 Geovanna Miranda INSURANCE SALES SPECIALIST-CYBER DEFENSE FORENSICS ANALYST PCP - GeneralNurse Practitioner - Family07/16/17Team MemberRelationshipSpecialty Start DateEnd Date Transplant, Coordinator [address] [place] [address], [place] [address] PCP - Transplant Coordinator08/23/10 Geovanna Miranda APRN-CYBER DEFENSE FORENSICS ANALYST PCP - GeneralNurse Practitioner - Family07/16/17Team MemberRelationshipSpecialty Start DateEnd Date Transplant, Coordinator [address] [place] [address], [place] [address] PCP - Transplant Coordinator08/23/10 Geovanna Miranda APRN-CYBER DEFENSE FORENSICS ANALYST PCP - GeneralNurse Practitioner - Family07/16/17Team MemberRelationshipSpecialty Start DateEnd Date Transplant, Coordinator [address] [place] [address] PCP - Transplant Coordinator08/23/10 Geovanna Miranda APRN-CYBER DEFENSE FORENSICS ANALYST PCP - GeneralNurse Practitioner - Family07/16/17Team MemberRelationshipSpecialty Start DateEnd Date Transplant, Coordinator [address] [place] [address] PCP - Transplant Coordinator08/23/10 Geovanna Miranda APRN-CYBER DEFENSE FORENSICS ANALYST PCP - GeneralNurse Practitioner - Family07/16/17Team MemberRelationshipSpecialty Start DateEnd Date Transplant, Coordinator [address] [place] [address] PCP - Transplant Coordinator08/23/10 Geovanna Miranda APRN-CYBER DEFENSE FORENSICS ANALYST PCP - GeneralNurse Practitioner - Family07/16/17Team MemberRelationshipSpecialty Start DateEnd Date Geovanna Miranda CYBER DEFENSE FORENSICS ANALYST [address] [place] [address] PCP - GeneralNurse Zmhwmmbyjelh36/21/22Team MemberRelationshipSpecialtyStart DateEnd Date Geovanna Miranda CYBER DEFENSE FORENSICS ANALYST [address] [place] [address] PCP - GeneralNurse Lwzweydiictf88/21/22Team MemberRelationshipSpecialtyStart DateEnd Date Geovanna Miranda CYBER DEFENSE FORENSICS ANALYST [address] [place] [address] PCP - GeneralNurse Dtuoozgfikhs70/21/22Team MemberRelationshipSpecialtyStart DateEnd Date Transplant, Coordinator [address] [place] [address] PCP - Transplant Coordinator08/23/10 Geovanna Miranda APRN-CNP PCP - GeneralNurse Practitioner - Family07/16/17Team MemberRelationshipSpecialty Start DateEnd Date Geovanna Miranda, CYBER DEFENSE FORENSICS ANALYST [address] [place] [address] PCP - GeneralNurse Zltkrgwkuzgl17/21/22Team MemberRelationshipSpecialtyStart DateEnd Date Transplant, Coordinator [address] [place] [address] PCP - Transplant Coordinator2 Geovanna Miranda APRN-TAMY PCP - GeneralNurse Practitioner - Family07/16/17Team MemberRelationshipSpecialty Start DateEnd Date Transplant, Coordinator [address] [place] [address] PCP - Transplant Coordinator2 Geovanna Miranda APRN-TAMY [address] [place] [phone] PCP - GeneralNurse Practitioner - Family07/16/17Team MemberRelationshipSpecialty Start DateEnd Date Transplant, Coordinator [address] [place] [phone] PCP - Transplant Coordinator2 Geovanna Miranda APRN-TAMY [address] [place] [address] PCP - GeneralNurse Practitioner - Family07/16/17Team MemberRelationshipSpecialty Start DateEnd Date Transplant, Coordinator [address] [place] [address], [place] [address] PCP - Transplant Coordinator08/23/10 Geovanna Miranda APRN-CYBER DEFENSE FORENSICS ANALYST [address] [place] [address] PCP - GeneralNurse Practitioner - Family07/16/17Team MemberRelationshipSpecialty Start DateEnd Date Transplant, Coordinator [address] [place] [address], [place] [address] PCP - Transplant Coordinator08/23/10 Geovanna Miranda APRN-CYBER DEFENSE FORENSICS ANALYST [address] [place] [address] PCP - GeneralNurse Practitioner - Family07/16/17Team MemberRelationshipSpecialty Start DateEnd Date Transplant, Coordinator [address] [place] [address] PCP - Transplant Coordinator08/23/10 Geovanna Miranda APRN-CYBER DEFENSE FORENSICS ANALYST [address] [place] [address] PCP - GeneralNurse Practitioner - Family07/16/17Team MemberRelationshipSpecialty Start DateEnd Date Transplant, Coordinator [address] [place] [address] PCP - Transplant Coordinator08/23/10 Geovanna Miranda APRN-CYBER DEFENSE FORENSICS ANALYST [address] [place] [address] PCP - GeneralNurse Practitioner - Family07/16/17Team MemberRelationshipSpecialty Start DateEnd Date Transplant, Coordinator [address] [place] [address] PCP - Transplant Coordinator08/23/10 Geovanna Miranda APRN-CYBER DEFENSE FORENSICS ANALYST [address] [place] [address] PCP - GeneralNurse Practitioner - Family07/16/17Team MemberRelationshipSpecialty Start DateEnd Date Transplant, Coordinator [address] [place] [address] PCP - Transplant Coordinator08/23/10 Geovanna Miranda APRN-CYBER DEFENSE FORENSICS ANALYST [address] [place] [address] PCP - GeneralNurse Practitioner - Family07/16/17Team MemberRelationshipSpecialty Start DateEnd Date Transplant, Coordinator [address] [place] [address] PCP - Transplant Coordinator08/23/10 Geovanna Miranda APRN-CYBER DEFENSE FORENSICS ANALYST [address] [place] [address] PCP - GeneralNurse Practitioner - Family07/16/17Team MemberRelationshipSpecialty Start DateEnd Date Transplant, Coordinator [address] [place] [address] PCP - Transplant Coordinator08/23/10 Geovanna Miranda APRN-TAMY [address] [place] [address] PCP - GeneralNurse Practitioner - Family1/Team MemberRelationship SpecialtyStart DateEnd Date Transplant, Coordinator [address] [place] [address] PCP - Transplant Coordinator08/23/10Team MemberRelationshipSpecialtyStart DateEnd Date Transplant, Coordinator [address] [place] [address] PCP - Transplant Coordinator2 Geovanna Miranda APRN-CYBER DEFENSE FORENSICS ANALYST [address] [place] [address] PCP - GeneralNurse Practitioner - Family1 Rodrigo Saravia MD [address] [place] [address] PCP - GeneralFamily Medicine12/04/23Team MemberRelationshipSpecialtyStart DateEnd Date Transplant, Coordinator [address] [place] [phone] PCP - Transplant Coordinator08/23/10 Rodrigo Saravia MD [address] [place] [address] PCP - GeneralFamily Medicine12/04/23Team MemberRelationshipSpecialtyStart DateEnd Date Transplant, Coordinator [address] [place] [phone] PCP - Transplant Coordinator2 Rodrigo Saravia MD [address] [place] [address] PCP - GeneralFamily Medicine12/04/23Team MemberRelationshipSpecialtyStart DateEnd Date Transplant, Coordinator [address] [place] [address] [phone] PCP - Transplant Coordinator08/23/10 Rodrigo Saravia MD [address] [place] [address] PCP - GeneralFamily Medicine12/04/23Team MemberRelationshipSpecialtyStart DateEnd Date Transplant, Coordinator [address] [place] [address] [phone] PCP - Transplant Coordinator08/23/10 Rodrigo Saravia MD [address] [place] [address] PCP - GeneralFamily Medicine12/04/23 Team Status: Active Member Role Status Dates Cayla Velazquez APRN DEFENSIVE FIRE CONTROL SYSTEMS OPERATOR-C Primary Care Provider Active Team Status: Inactive Member Role Status Dates Cayla Velazquez APRN DEFENSIVE FIRE CONTROL SYSTEMS OPERATOR-C Primary Care Provider, Attending Provider Active Start: February 24, 2024 End: February 24, 2024Team MemberRelationshipSpecialtyStart DateEnd Date Transplant, Coordinator [address] [place] [address] [phone] PCP - Transplant Coordinator08/23/10 Cayla Velazquez CNP [address] [place] [address] PCP - GeneralCertified Nurse Practitioner02/25/24 Roberto Carlos Davey MD [address] [place] [address] Consulting PhysicianNephrology02/25/24Team MemberRelationshipSpecialtyStart Date End Date Transplant, Coordinator [address] [place] [phone] PCP - Transplant Coordinator08/23/10 Cayla Velazquez CNP [address] [place] [address] PCP - GeneralCertified Nurse Practitioner02/25/24 Roberto Carlos Davey MD [address] [place] [address] Consulting PhysicianNephrology02/25/24Team MemberRelationshipSpecialtyStart Date End Date Transplant, Coordinator [address] [place] [phone] PCP - Transplant Coordinator08/23/10 Cayla Velazquez CNP [address] [place] [phone] PCP - GeneralCertified Nurse Practitioner02/25/24 Roberto Carlos Davey MD [address] [place] [address] Consulting PhysicianNephrology02/25/24 Team Status: Active Member Role Status Dates Cayla Velazquez APRN DEFENSIVE FIRE CONTROL SYSTEMS OPERATOR-C Primary Care Provider, Attending Provider Active Start: February 27, 2024 Team Status: Inactive Member Role Status Dates Cayla Velazquez APRN DEFENSIVE FIRE CONTROL SYSTEMS OPERATOR-C Primary Care Provider, Attending Provider Active Start: April 07, 2024 End: April 07, 2024Team MemberRelationshipSpecialtyStart DateEnd Date Transplant, Coordinator [address] [place] [phone] PCP - Transplant Coordinator08/23/10 Cayla Velazquez CNP [address] [place] [address] (Fax) PCP - GeneralCertified Nurse Practitioner02/25/24 Roberto Carlos Davey MD [address] [place] [address] Consulting PhysicianNephrology02/25/24Team MemberRelationshipSpecialtyStart Date End Date Transplant, Coordinator [address] [place] [phone] PCP - Transplant Coordinator2 Cayla Velazquez CNP [address] [place] [phone] PCP - GeneralCertified Nurse Practitioner02/25/24 Roberto Carlos Davey MD [address] [place] [address] Consulting PhysicianNephrology02/25/24Team MemberRelationshipSpecialtyStart Date End Date Transplant, Coordinator [address] [place] [phone] PCP - Transplant Coordinator2 Cayla Velazquez CNP [address] [place] [address] PCP - GeneralCertified Nurse Practitioner02/25/24 Roberto Carlos Davey MD [address] [place] [address] Consulting PhysicianNephrology02/25/24Team MemberRelationshipSpecialtyStart Date End Date Transplant, Coordinator [address] [place] [phone] PCP - Transplant Coordinator2 Cayla Velazquez CNP [address] [place] [address] PCP - GeneralCertified Nurse Practitioner02/25/24 Roberto Carlos Davey MD [address] [place] [address] Consulting PhysicianNephrology02/25/24Team MemberRelationshipSpecialtyStart Date End Date Transplant, Coordinator [address] [place] [phone] PCP - Transplant Coordinator2 Cayla Velazquez CNP [address] [place] [phone] PCP - GeneralCertified Nurse Practitioner02/25/24 Roberto Carlos Davey MD [address] [place], [place] [phone] Consulting PhysicianNephrology02/25/24Team MemberRelationshipSpecialtyStart Date End Date Transplant, Coordinator [address] [place] [phone] PCP - Transplant Coordinator2 Cayla Velazquez CNP [address] [place] [address] PCP - GeneralCertified Nurse Practitioner02/25/24 Roberto Carlos Davey MD [address] [place] [address] Consulting PhysicianNephrology02/25/24Team MemberRelationshipSpecialtyStart Date End Date Transplant, Coordinator [address] [place] [phone] PCP - Transplant Coordinator08/23/10 Cayla Velazquez CNP [address] [place] [address] PCP - GeneralCertified Nurse Practitioner02/25/24 Roberto Carlos Davey MD [address] [place] [address] Consulting PhysicianNephrology02/25/24 Team Status: Inactive Member Role Status Dates Cayla Velazquez APRN DEFENSIVE FIRE CONTROL SYSTEMS OPERATOR-C Primary Care Provider Active Start: February 25, 2025 End: February 25, 2025Cayla Velazquez APRN DEFENSIVE FIRE CONTROL SYSTEMS OPERATOR-CAttending ProviderActive Start: February 25, 2025 End: February 25, 2025 Scheduled Active and Recently Administ ered Medications (unrecognized section and content) Medication Order// proparacaine (ALCAINE) 0.5 % ophthalmic solution 2 drop (COMPLETED) 2 drop, Right Eye, ONCE, 1 dose, On 04/21/22 at 1130 * 1115 (Given - Provider: Andrew Guan RN - Comment: per Dr. Archuleta for bedside procedure) Medication Order/// vbpxtyyh-aiadtwxwsp-hctidokpd (NEOSPORIN) 400-5-5000 ointment 1 Application. (COMPLETED) 1 Application., Topical, ONCE, 1 dose, On Sat10/24/22 at 0800 * 0749 (Given - Provider: Amairani Au RN - Comment: was applied and rest sent home with patient) Medication Order//05/2023 Acetaminophen (TYLENOL) tablet 650 mg (COMPLETED) 650 mg, Oral, ONCE, 1 dose, On Sat03/11/23 at 0000 * 2348 (Given - Provider: Kg Hurtado, RN) Medication Order03/26//// Acetaminophen (TYLENOL) tablet 650 mg 650 mg, Oral, EVERY 6 HOURS NON-STANDARD, First dose on Sat03/23/24 at 1530, Until Discontinued, Administer if tolerating PO. Do not exceed 4000 mg in 24 hours., Post-op/Post-Proc * 0531 (Given - Provider: Sarah Mireles RN) * 0849 (Given - Provider: Aline Israel, TABATHA) * 1628 (Given - Provider: Aline Israel RN) * 2013 (Given - Provider: Sarah Mireles RN) * 0145 (Not Given - Provider: Sarah Mireles RN - Reason: Patient sleeping) * 0808 (Given - Provider: Gamal Chino, TABATHA) * 1509 (Given - Provider: Gamal Chino, TABATHA) * 2038 (Given - Provider: Kg Blackburn, TABATHA) * 0334 (Not Given - Provider: Frederick Campos RN - Reason: Patient sleeping) * 0909 (Given - Provider: Kg Blackburn, TABATHA) aspirin chewable tablet 81 mg 81 mg, Oral, DAILY EVERY MORNING, First dose on Sat03/24/24 at 0900, Until Discontinued, Give two hours after am carafate slurry please * 0844 (Given - Provider: Aline Israel RN) * 0808 (Given - Provider: Gamal Chino, TABATHA) * 0908 (Given - Provider: Kg Blackburn, TABATHA) carBAMazepine (TEGRETOL) chewable tablet 200 mg 200 mg, Oral, DAILY EVERY MORNING, First dose (after last modification) on Sat03/24/24 at 0900, Until Discontinued * 0844 (Given - Provider: Aline Israel RN) * 0810 (Given - Provider: Gamal Chino RN) * 0910 (Given - Provider: Kg Blackburn, TABATHA) carBAMazepine (TEGRETOL) chewable tablet 300 mg 300 mg, Oral, Nightly, First dose on Sat03/23/24 at 2100, Until Discontinued * 2015 (Given - Provider: Sarah Mireles RN) * 2040 (Given - Provider: Kg Blackburn, TABATHA) Cetirizine (ZyrTEC) tablet 10 mg 10 mg, Oral, DAILY, First dose on Sat03/24/24 at 1400, Until Discontinued * 0843 (Given - Provider: Aline Israel RN) * 0808 (Given - Provider: Gamal Chino, RN) * 0908 (Given - Provider: Kg Blackburn RN) Enoxaparin [...] Dee 03/26/2024 at 0922 until manually unheld * 0841 (Given - Provider: Aline Israel RN) * 0922 (Held by provider - Provider: Jamel Uriarte MD - Reason: Other) * 0900 (Automatically Held - Provider: Jamel Uriarte MD) * 1451 (Unheld by provider - Provider: Jamel Uriarte MD) Enoxaparin Sodium (LOVENOX) injection 40 mg 40 mg, Subcutaneous, EVERY 24 HOURS, First dose (after last modification) on Sat03/28/24 at 0900, Until Discontinued, For SUBCUTANEOUS route ONLY: alternate injection sites between left and right abdominal wall, pinching location and avoiding area around navel. If unable to use abdominal sites, mayuse the front or side of thighs., Indications: DVT/PE prophylaxis * 0913 (Not Given - Provider: Kg Blackburn RN - Reason: Patient/family refused) Escitalopram (LEXAPRO) tablet 20 mg 20 mg, Oral, DAILY EVERY MORNING, First dose on Sat03/24/24 at 0900, Until Discontinued * 0847 (Given - Provider: Aline Israel RN) * 0811 (Given - Provider: Gamal Chino, TABATHA) * 0911 (Given - Provider: Kg Blackburn RN) Iohexol (OMNIPAQUE) 300 MG/ML vial 50 mL (COMPLETED) 50 mL, Intravenous, ONCE, 1 dose, On Sat03/27/24 at 1400, Extravasation Risk, Intra-op/Intra-Proc * 1400 (Due) * 1436 (Given - Provider: Netta Titus MD) Montelukast (SINGULAIR) tablet 10 mg 10 mg, Oral, DAILY, First dose on Sat03/24/24 at 1400, Until Discontinued * 0843 (Given - Provider: Aline Israel RN) * 0808 (Given - Provider: Gamal Chino RN) * 0907 (Given - Provider: Kg Blackburn, TABATHA) Mycophenolate oral suspension 750 mg 750 mg, Oral, 2 TIMES DAILY (Solid Organ Transplant), First dose on Sat03/23/24 at 2000, Until Discontinued, May be administered via a nasogastric tube (minimum 8 Spanish, 1.7 mm interior diameter); oral suspension should not be mixed with other medications. Storage Change-Refrigeration no longer required * 0848 (Given - Provider: Aline Israel RN) * 2013 (Given - Provider: Sarah Mireles RN) * 0811 (Given - Provider: Gamal Chino, TABATHA) * 2038 (Given - Provider: Kg Blackburn, TABATHA) * 0905 (Given - Provider: Kg Blackburn, TABATHA) OLANZapine (zyPREXA) tablet 2.5 mg 2.5 mg, Oral, DAILY AT BEDTIME, First dose on Sat03/23/24 at 2100, Until Discontinued * 2013 (Given - Provider: Sarah Mireles RN) * 2040 (Given - Provider: Kg Blackburn, TABATHA) Ondansetron (ZOFRAN) tablet 4 mg(Linked Group 1) 4 mg, Oral, EVERY 6 HOURS NON-STANDARD, First dose on Sat03/23/24 at 1930, Until Discontinued, Post-op/Post-Proc * 0314 (Not Given - Provider: Sarah Mireles RN - Reason: Patient sleeping) * 0531 (Given - Provider: Sarah Mireles RN) * 1209 (Given - Provider: Aline Israel RN) * 2013 (Given - Provider: Sarah Mireles RN) * 004 (Given - Provider: Sarah Mireles RN) * 0808 (Given - Provider: Gamal Chino, TABATHA) * 1509 (Given - Provider: Gamal Chino, RN) * 203 (Given - Provider: Kg Blackburn, TABATHA) * 0103 (Given - Provider: Frederick Campos, TABATHA) * 0908 (Given - Provider: Kg Blackburn RN) * 1330 (Canceled Entry - Provider: System Discharge - Comment: Automatically canceled at discontinue of medication order) Ondansetron 4mg/2ml (ZOFRAN) injection 4 mg(Linked Group 1) 4 mg, Intravenous, EVERY 6 HOURS NON-STANDARD, First dose on Sat03/23/24 at 1930, Until Discontinued, If unable to take oral ondansetron., Post-op/Post-Proc * 0314 (See Alternative - Provider: Sarah Mireles RN) * 0531 (See Alternative - Provider: Sarah Mireles RN) * 1209 (See Alternative - Provider: Aline Israel, TABATHA) * 2013 (See Alternative - Provider: Sarah Mireles RN) * 0040 (See Alternative - Provider: Sarah Mireles RN) * 0808 (See Alternative - Provider: Gamal Chino RN) * 1509 (See Alternative - Provider: Gamal Chino, TABATHA) * 203 (See Alternative - Provider: Kg Blackburn, TABATHA) * 0103 (See Alternative - Provider: Frederick Campos RN) * 0908 (See Alternative - Provider: Kg Blackburn, TABATHA) * 1330 (Canceled Entry - Provider: System Discharge - Comment: Automatically canceled at discontinue of medication order) Pantoprazole (PROTONIX) tablet DR 40 mg 40 mg, Oral, 2 TIMES DAILY, First dose (after last modification) on Sat03/24/24 at 0900, Until Discontinued, Taken whole., Indications: Inpt Stress Ulcer Prophylaxis, Post-op/Post-Proc * 0843 (Given - Provider: Aline Israel, TABATHA) * 1628 (Given - Provider: Aline Israel, RN) * 0808 (Given - Provider: Gamal Chino, TABATHA) * 1644 (Given - Provider: Maxwell Lopez RN) * 0908 (Given - Provider: Kg Blackburn RN) Polyethylene glycol (MIRALAX) packet 17 g 17 g, Oral, DAILY, First dose on Sat03/24/24 at 0900, Until Discontinued, Post-op/Post-Proc * 0836 (Given - Provider: Aline Israel RN) * 0819 (Not Given - Provider: Gamal Chino RN - Reason: Other - Comment: NPO for IR) * 0913 (Given - Provider: Kg Blackburn, RN) rOPINIRole (REQUIP) tablet 0.5 mg 0.5 mg, Oral, DAILY AT BEDTIME, First dose on Sat03/23/24 at 2100, Until Discontinued, Max 24 mg/day * 2014 (Given - Provider: Sarah Mireles RN) * 2037 (Given - Provider: Kg Blackburn, TABATHA) Sucralfate (CARAFATE) tablet 1 g 1 g, Oral, 2 TIMES DAILY BEFORE MEALS, First dose on Sat03/23/24 at 1600, Until Discontinued, Avoidadministration of other oral medications within 2 hours of sucralfate. Put pill into a tablespoon of water to create a slurry. * 0843 (Given - Provider: Aline Israel RN) * 1629 (Given - Provider: Aline Israel RN) * 0808 (Given - Provider: Gamal Chino, TABATHA) * 1644 (Given - Provider: Maxwell Lopez RN) * 0907 (Given - Provider: Kg Blackburn, TABATHA) Tacrolimus (PROGRAF) capsule 4 mg 4 mg, Oral, EVERY 12 HOURS, First dose (after last modification) on Sat03/27/24 at 2100, Until Discontinued, Do not split, break, crush, or open doses of this medication. Contact pharmacy if altered dose or route needed. Do not split, break, crush, or open doses of this medication. Contact pharmacyif altered dose or route needed. * 2039 (Given - Provider: Kg Blackburn RN) * 0905 (Given - Provider: Kg Blackburn, TABATHA) Tacrolimus (PROGRAF) capsule 5 mg (CANCELED) 5 mg, Oral, EVERY 12 HOURS, First dose on Sat03/25/24 at 2100, Until Discontinued, Do not split, break, crush, or open doses of this medication. Contact pharmacy if altered dose or route needed. Do not split, break, crush, or open doses of this medication. Contact pharmacy if altered dose or route n eeded. * 0845 (Given - Provider: Aline Israel, RN) * 2013 (Given - Provider: Sarah Mireles RN) * 0811 (Given - Provider: Gamal Chino, RN) Medication Order/ Lactated ringers IV solution () Intravenous, at 50 mL/hr, CONTINUOUS, Starting on Sat03/23/24 at 1500, Until Sat03/27/24 at 0000, Post-op/Post-Proc * 0157 (Rate/Dose Verify - Provider: Sarah Mireles RN) * 0533 ($$New Bag$$ - Provider: Sarah Mireles RN) * 0833 (Rate/Dose Verify - Provider: Aline Israel RN) * 1207 (Rate/Dose Verify - Provider: Aline Israel RN) * 1208 (Rate/Dose Verify - Provider: Aline Israel RN) * 1625 (Rate/Dose Verify - Provider: Aline Israel RN) * 2200 (Rate/Dose Verify - Provider: Sarah Mireles RN) * 0037 (Restarted - Provider: Sarah Mireles RN) * 0038 (Stopped - Provider: Sarah Mireles RN) * 0042 (Stopped - Provider: Sarah Mireles RN) Lactated ringers IV solution Intravenous, at 125 mL/hr, CONTINUOUS, Starting on Sat03/27/24 at 0000, Until Sat03/28/24 at 1526 * 0038 ($$New Bag$$ - Provider: Sarah Mireles RN) * 0442 (Rate/Dose Verify - Provider: Sarah Mireles RN) * 0541 (Stopped - Provider: Sarah Mireles RN) * 0549 (Restarted - Provider: Gamal Chino, RN) * 0819 ($$New Bag$$ - Provider: Gamal Chino, RN) * 0859 (Paused - Provider: Gamal Chino, RN) * 0905 (Restarted - Provider: Gamal Chino, RN) * 1052 (Stopped - Provider: Gamal Chino, RN) * 1053 (Stopped - Provider: Gamal Chino, RN) Medication Order// Ampicillin-Sulbactam Sodium (UNASYN) 3 g in sodium chloride 0.9% (MB PLUS) 100 mL (total volume) IVPB (COMPLETED) 3 g, Intravenous, Administer over 30 Minutes, SHIFT SUPERVISOR TO PROCEDURE, 1 dose, Starting on Sat03/27/24at 1017, Until Sat03/27/24 at 1501, Surgical Prophylaxis, Initiate antibiotic administration 30-60 minutes prior to surgical incision and complete administration prior to surgical incision., Pre-op/Pre-Proc * 1240 ($$New Bag$$ - Provider: Bee Mccurdy, RN) * 1501 (Stopped - Provider: Gamal Chino, TABATHA) Cyclobenzaprine (FLEXERIL) tablet 5 mg 5 mg, Oral, 3 TIMES DAILY NEEDED, Starting on Sat03/23/24 at 1459, Until 03/28/24 at 1527, Mild Pain, Post-op/Post-Proc fentaNYL (SUBLIMAZE) injection 300 mcg () 300 mcg, Intravenous, Administer over 2 Minutes, ADMINISTER DIRECTED, Starting on Sat03/27/24 [id number], Until Sat03/27/24 at 1552, intraoperative pain management, Administration during procedure asdirected by physician. Recorded MAR dose is cumulative amount given during procedure., Intra-op/Intra-Proc * 1354 (Given - Provider: Maxwell Hsu, TABATHA) * 1416 (Given - Provider: Maxwell Hsu, TABATHA) * 1426 (Given - Provider: Maxwell Hsu, RN) Haloperidol (HALDOL) tablet 0.5 mg 0.5 mg, Oral, EVERY 6 HOURS NEEDED, Starting on Sat03/23/24 at 1459, Until 03/28/24 at 1526, nausea/vomiting 2nd line, Post-op/Post-Proc Lidocaine 2 % injection (COMPLETED) ONCE NEEDED, 1 dose, Starting on Sat03/27/24 at 1437, Until Sat03/27/24 at 1437, Intra-op/Intra-Proc * 1437 (Given - Provider: Netta Titus MD) midazolam (VERSED) injection 10 mg () 10 mg, Intravenous, ADMINISTER DIRECTED, Starting on Sat03/27/24 at 1353, Until Sat03/27/24 at 1752, Procedural sedation, Administer during procedure as directed by physician. Recorded MAR dose iscumulative amount given during procedure., Intra-op/Intra-Proc * 1354 (Given - Provider: Maxwell Hsu RN) * 1416 (Given - Provider: Maxwell Hsu RN) * 1426 (Given - Provider: Maxwell Hsu RN) oxyCODONE [...] line (if NOT tolerating PO), For IV route:dilute dose with 10mL normal saline and give [...] used as carrier fluid for intermittent small volumeor piggyback medication administration as needed. Infusion rate of the carrier fluid should be set at 20 mL/hr unless the rate as the intermittent medication is less than 20 mL/hr. For intermittent medications with a rate less than 20 mL/hr set the carrier fluid at that rate of the intermittent or piggy back medication., Post-op/Post-Proc Order Group 1: Ondansetron (ZOFRAN) tablet 4 [...] line (if NOT tolerating PO), For IV route:dilute dose with 10mL normal saline and give [...] sectionGoals may be documented in an alternate sectionGoals may be documented in an [...] BE BASED ON THE PRIMARY CLINICAL RECORDS. [employer] provides no warranty or guarantee of the accuracy or completeness of information in this document.
[2025-05-10 12:42] LABS: Hematocrit 33.3 % (42.0-54.0); Hemoglobin 10.8 g/dL (14.0-18.0); Immature Granulocytes Abs Auto 0.01 10^3/uL (0.00-0.03); Immature Granulocytes Pct Auto 0.2 % (0.0-0.5); Lymphocytes Absolute Auto 1.2 10^3/uL (1.2-3.8); Mean Corpuscular HGB Conc 32.4 g/dL (29.9-35.2); Mean Corpuscular Hemoglobin 29.9 pg (25.9-34.0); Mean Corpuscular Volume 92.2 fL (80.0-94.0); Platelet Count 156 10^3/uL (150-450); Red Blood Count 3.61 10^6/uL (4.70-6.10); White Blood Count 4.3 10^3/uL (4.0-11.0)
[2025-05-10 14:35] LABS: Iron 89.0 ug/dL (65.0-175.0); Percent Iron Saturation 33.6 %; Total Iron Binding Capacity 265.0 ug/dL (250.0-450.0)
[2025-05-10 15:49] LABS: Alanine Aminotransferase 27 U/L (16-63); Albumin Globulin Ratio 1.4; Albumin Level 3.7 g/dL (3.4-5.0); Alkaline Phosphatase 82 U/L (46-116); Anion Gap 12.8; Aspartate Amino Transferase 14 U/L (15-37); Blood Urea Nitrogen 21.0 mg/dL (7.0-18.0); Calcium 9.1 mg/dL (8.5-10.1); Carbon Dioxide 25.0 mmol/L (21.0-32.0); Chloride 105 mmol/L (98-107); Estimated GFR (African America 50 (>=60 mL/min/1.73m^2); Estimated GFR (Non-African Ame 41 (>=60 mL/min/1.73m^2); Globulin 2.7 g/dL; Glucose 85 mg/dL (74-106); Potassium 4.8 mmol/L (3.5-5.1); Sodium 138 mmol/L (136-145); Total Protein 6.4 g/dL (6.4-8.2)
[2025-05-10 16:10] LABS: Ferritin 206.0 ng/mL (26.0-388.0); Folate 5.60 ng/mL (8.60-58.90)
[2025-05-11 04:07] LABS: Vitamin B12 754 pg/mL (232-1245)
[2025-05-11 07:10] LABS: Transferrin 240 mg/dL (177-329)
== END 2025-05-10 12:01 | disposition home or self-care (01) ==
LOC: LAB 12:02
PROVIDERS: PCP Nurse Practitioner Family
DX: E55.9 Vitamin D deficiency, unspecified (principal); Z98.84 Bariatric surgery status; N18.31 Chronic kidney disease, stage 3a; N25.81 Secondary hyperparathyroidism of renal origin; E61.1 Iron deficiency; Z79.899 Other long term (current) drug therapy; Z91.89 Other specified personal risk factors, not elsewhere classified
CPT/HCPCS: 36415; 80053; 82306; 82607; 82728; 82746; 83540; 83550; 83970; 84425; 84466; 84590; 85025

== ENCOUNTER 2025-06-23 16:01 | Emergency (ER) | payer MEDICARE, SELFPAY ==
[2025-06-23 16:04] VITALS: BP 127/70; PULSE 78; TEMP 37.1; O2SAT 97; BMI 25.2
--- NOTE | 2025-06-23 16:20 | PC.NURSE ---
right eye red and watery, pt has contact lens in at tis time. denies any problems with lreft eye
--- OUTSIDE RECORDS SUMMARY | 2025-06-23 16:26 | XMS_ITS | Continuity of Care Document ---
Author Organization [facility] Address [address] [place] [address] Phone [phone] Care Team Providers Care International Student Counselor Name Role Phone [facility] Care Team Information Windshield Repair Technician + [phone] Social History Type Date Description Comments Sex Male Tobacco Use Start: Unknown End: Unknown Patient is a former smoker PT STOPPED IN 1999 Smoking Status Reviewed: 07/01/99 Patient is a former smoker PT STOPPED IN 1999 Results Test Acquired Date Facility Test Result H/L Range N ote BUN - Urea Nitrogen 06/25/2012 [facility] (000)-000-0000BUN - Urea Bewchufl86Vgnbpkfm Serum Mass/Vol06/25/2012[facility] (000)-000-0000Creatine Serum Mass/Vol4.41Electrolytes Panel06/25/2012[facility] (000)-000-0000Carbon Omhnajh38Ocuwzoqy457Rcrrbqvsw4.3Nfipms134.Calcium, Peqjmsdkjd01/26/2012[facility] (000)-000-0000Calcium Blood8.9Blretfugoa7.9.Hemoglobin And Sdokgxpzwx72/03/2011 [facility] (000)-000-1191Aviibtpbyu82.4Qdmhybihyu53.9BUN - Urea Netkzqtn76/03/2011[facility] (000)-000-0000BUN - Urea Arwtfljo48Dusmtobu Serum Mass/Vol10/31/2010[facility] (000)-000-0000Creatine Serum Mass/Vol4.06Electrolytes Panel10/31/2010[facility] (000)-000-0000Carbon Fnvngri53Pradsdbn002Lkiqifebj6.9Vyclxb098.Calcium, Jpxcjfgbnr84/03/2011[facility] (000)-000-0000Calcium Blood8.8Caiuomwfav4.8.Intact Parathyroid Igkzaau4710/31/2010 [facility] [phone].Intact Parathyroid Frwutyk462 Encounters Type Date Location Provider Dx Diagnosis Office Visit 02/20/2011 3:30p [place] [facility] Sean Hancock M.D. 753.13 Polycystic Kidney Disease, Adult 401.0 Hypertension Maligna nt Essential 588.81 Hyperparathyroidism, Renal 285.21 Anemia In Chronic Ki dney Disease Office Visit 08/17/2010 10:40a [place] [facility] Sean Hancock M.D. 753.13 Polycystic Kidney Disease, Adult 585.4 Chronic Kidney Disea se Stage 4 401.0 Hypertension Maligna nt Essential 588.81 Hyperparathyroidism, Renal Office Visit 05/02/2010 9:40a [place] [facility] Sean sharp M.D. 753.13 Polycystic Kidney [...] Renal Failure/End St age Renal Disease Sean Hancokc M.D. 01/28/2013 V45.11 Renal Dialysis Status Sean [...]
--- OUTSIDE RECORDS SUMMARY | 2025-06-23 16:26 | XMS_ITS | Patient Health Record ---
Author Organization [facility] [place] Address [address] [place] [address] Care Team Providers Care Microwave Technician Name Role Phone Cayla Velazquez CNP Primary Care Provider U mendozaailtita Allergies Allergen (clinical drug ingredient) Drug/Non Drug Allergy documented on EMR Reaction Allergy Type Onset Date Status Non-steroidal anti-inflammatory agent (FN) NSAIDs Unkn own Drug Allergy Active Reason For Referral No Information Medications Medication SIG (Take, Route, Frequency, Duration) Notes Start Date End Date Status Alclometasone Dipropionate 0.05 % 1 application Externally Twice a day 03/04/2024ctiveAspirin 81 81 MG1 tablet Orally Once a day03/04/2024ctive Calcium 600 MG1 tablet with meals Orally Twice a day03/04/2024ctiveLokelma 5 GM 1 packet dissolved in water Ndqubb9603/04/2024ctiveLosartan Potassium 25 MG1 tablet Orally Once a day03/04/2024ctiveMagnesium 400 MGas directed Orally 03/04/2024ctiveMontelukast Sodium 10 MG1 tablet Orally Once a day03/04/2024 ActiveOLANZapine 5 MG 1 tablet Orally Once a day 2.5mg at bedtime 03/04/2024ctiverOPINIRole HCl 5 MG1 tablet Orally Three times a day03/04/2024 ActiveTacrolimus 1 MG as directed Orally 6 tabs every 12 hours 03/04/2024ctiveVitamin B 12 500 MCG 1 tablet Orally Once a day 2 tabs 03/04/2024ctivepredniSONE 10 MG3 tablets once a day for 3 days, 2 tablets once a day for 3 days, 1 tablet once a day for 3 days Orally; Duration: 9 days 03/04/2024Unknown Social History Tobacco Use: Social History Observation Description Date Details (start date - stop date) Never Smoker NA - NA Tobacco Control (Standard) Question Answer Notes Tobacco use: Nonsmoker Problems Problem Type SNOMED Code ICD Code Onset Dates Problem Status W/U Status Risk Notes Problem Arthralgia of the an kle and/or foot (270762460) Pain in right ankle and joints of right foot (M25.571) Activeconfirmed Plan Of Treatment Pending Test Test Name Order Date XR Ankle RT (3 views) * (161) 03/04/2024 XR Foot RT (3 views) * 03/04/2024 MRI Ankle RT w/o contrast ([facility]) XR ankle RT min 3V 03/04/2024 XR foot RT min 3V 03/04/2024 MR ankle RT wo con 05/08/2024 Insurance Providers Payer Name Payer Address Payer Phone Subscriber Number Group Number Insured Name Patient Relationship to Insured Coverage Start Date Coverage End Date BCBS OUT OF STATE [address] [place] [id number] [id number] Fontenot Self - patient is the insured Medical (General) History Medical History History ICD Code gastroesophageal reflux disease (GERD) kidney diseaseSurgical History Surgery Date(Month/Year) fistula removal 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/14bilateral nephrectomy 12/20gastric sleeve 09/17 cholecystectomyappendectomyfistulaleft knee scopetonsillectomyhernia repair Hospitalization History Reason Date(Month/Year) see above
--- NOTE | 2025-06-23 16:59 | ED.GENADUL1 ---
HPI HPI - General Adult General Chief complaint: Eye Problems Stated complaint: EYES BOTHERING HIM Time Seen by Provider: 06/23/25 16:02 Source: patient Mode of arrival: walk-in History of Present Illness HPI narrative: Patient is a 60-year-old male presenting to the emergency department for evaluation of right-sided eye redness. Patient states that over the last 2 days he has been having increasing redness and discharge from the right eye. He states that symptoms are worse in the morning where he develops with goopy discharge in the right eye. He denies any involvement of the left eye. He denies double vision, blurry vision, or any other ocular complaints. No history of trauma. He denies headache, nausea, vomiting, photophobia, or any other concerning symptoms. He denies fevers or chills. No chest pain or shortness of breath. States hen has a history of kidney transplant back in 2017 and is on immunosuppressants. Related Data Home Medications ?Medication ?Instructions ?Recorded ?Confirmed aspirin 81 mg capsule 81 mg PO DAILY 06/25/23 06/25/23 carbamazepine 200 mg 200 mg PO BID 06/25/23 06/25/23 capsule,extended release [id number] cetirizine 10 mg tablet (All Day 10 mg PO DAILY 06/25/23 06/25/23 Allergy (cetirizine)) escitalopram oxalate 20 mg tablet 20 mg PO QDAY 06/25/23 06/25/23 (Lexapro) magnesium 200 mg tablet 400 mg PO BID 06/25/23 06/25/23 montelukast 10 mg tablet 10 mg PO DAILY 06/25/23 06/25/23 (Singulair) mycophenolate sodium 180 mg 1,080 mg PO BID 06/25/23 06/25/23 tablet,delayed release (Myfortic) olanzapine 2.5 mg tablet 2.5 mg PO DAILY 06/25/23 06/25/23 ropinirole 0.5 mg tablet 0.5 mg PO DAILY 06/25/23 06/25/23 ropinirole 0.5 mg tablet 0.5 mg PO DAILY 06/25/23 06/25/23 Previous Rx's ?Medication ?Instructions ?Recorded azithromycin 250 mg tablet See Rx Instructions PO .COMPLEX #6 06/25/23 tabs [id number]-styiqtdmguxrren-NH 5 ml PO Q6H PRN cold symptoms #118 06/25/23 2 mg-30 mg-10 mg/5 mL oral syrup mL (Bromfed DM) azithromycin 250 mg tablet 250 mg PO DAILY 4 days #4 tabs 10/29/23 (Zithromax) polymyxin B sulfate 10,000 2 drp ophthalmic (eye) QID 7 days 06/23/25 unit-trimethoprim 1 mg/mL eye drops #10 mL Allergies Allergy/AdvReac Type Severity Reaction Status Date / Time NSAIDS (Non-Steroidal Allergy Verified 10/29/23 22:24 Anti-Inflamma Review of Systems ROS Status of ROS 10 or more systems reviewed and unremarkable except as noted in history and below PFSH PFSH Social History Smoking status: Former smoker Little interest or pleasure in doing things: not at all Feeling down, depressed, or hopeless: not at all Exam Narrative Exam Narrative: CONSTITUTIONAL: Well-appearing, answering questions and following commands appropriately SKIN: Was warm and dry. EYES: Right-sided conjunctival and scleral injection with mild amount of exudates. PERRLA. EOMI. No periorbital edema or blepharitis. Visual acuity intact. No proptosis. Left eye within normal limits. EARS, NOSE, THROAT: Moist oral mucosa. RESPIRATORY: Nonlabored respirations. CARDIOVASCULAR: Normal rate and regular rhythm. There is no S3, S4, murmur, rub. GASTROINTESTINAL: Abdomen is nondistended. MUSCULOSKELETAL: No peripheral edema. NEUROLOGIC: Patient is awake and alert. Facies were symmetrical. Constitutional Vital Signs, click to edit/add: Last Vital Signs Temp 98.7 F 06/23/25 16:04 Pulse 78 06/23/25 16:04 Resp 18 06/23/25 16:04 BP 127/70 06/23/25 16:04 Pulse Ox 97 06/23/25 16:04 O2 Del Method Room Air 06/23/25 16:04 Course Vital Signs Vital signs: Vital Signs Temperature 98.7 F 06/23/25 16:04 Pulse Rate 78 06/23/25 16:04 Respiratory Rate 18 06/23/25 16:04 Blood Pressure 127/70 06/23/25 16:04 Pulse Oximetry 97 06/23/25 16:04 Oxygen Delivery Method Room Air 06/23/25 16:04 Temperature 98.7 F 06/23/25 16:04 Pulse Rate 78 06/23/25 16:04 Respiratory Rate 18 06/23/25 16:04 Blood Pressure 127/70 06/23/25 16:04 Pulse Oximetry 97 06/23/25 16:04 Oxygen Delivery Method Room Air 06/23/25 16:04 Medical Decision Making MDM Narrative Medical decision making narrative: Patient is a 60-year-old male presenting to the emergency department for 2-day history of right eye erythema and discharge. Vital signs are within normal limits. He is afebrile and hemodynamically stable. His history/physical examination is consistent with right-sided conjunctivitis, likely bacterial. No proptosis or evidence of preseptal cellulitis. I do believe the patient is stable for discharge. They were instructed to follow up with his PCP should his symptoms persist. Return precautions were given including any new or worsening symptoms. They were given a prescription for Polytrim eyedrops 4 times daily x 7 days. Patient understands and agrees to the plan. FINAL IMPRESSION: #Acute right-sided conjunctivitis DISPOSITION: Discharged home CONDITION: Good Discharge Plan Discharge Chief Complaint: Eye Problems Clinical Impression: Bacterial conjunctivitis Patient Disposition: Home, Self-Care Time of Disposition Decision: 16:19 Condition: Good Mode of Transportation: Private Vehicle Prescriptions / Home Meds: New polymyxin B sulf-trimethoprim 10,000 unit- 1 mg/mL drops 2 drp ophthalmic (eye) QID 7 Days Qty: 10 0RF No Action olanzapine 2.5 mg tablet 2.5 mg PO DAILY magnesium 200 mg tablet 400 mg PO BID cetirizine [All Day Allergy (cetirizine)] 10 mg tablet 10 mg PO DAILY montelukast [Singulair] 10 mg tablet 10 mg PO DAILY ropinirole 0.5 mg tablet 0.5 mg PO DAILY ropinirole 0.5 mg tablet 0.5 mg PO DAILY aspirin 81 mg capsule 81 mg PO DAILY carbamazepine 200 mg capsule, ER multiphase 12 hr 200 mg PO BID escitalopram oxalate [Lexapro] 20 mg tablet 20 mg PO QDAY mycophenolate sodium [Myfortic] 180 mg tablet,delayed release (DR/EC) 1,080 mg PO BID [id number] [Bromfed DM] 2-30-10 mg/5 mL syrup 5 ml PO Q6H PRN (Reason: cold symptoms) Qty: 118 0RF azithromycin 250 mg tablet See Rx Instructions .ROUTE .COMPLEX Qty: 6 0RF Rx Instructions: For 250 mg dose pack: take 500 mg today (day 1), then 250 mg for 4 days (days 2-5) azithromycin [Zithromax] 250 mg tablet 250 mg PO DAILY 4 Days Qty: 4 0RF Rx Instructions: start on day 2 of therapy Print Language: Japanese Instructions: Conjunctivitis (ED) Referrals: ASHU EVANS [Primary Care Provider, Unknown] - 1 week Discharge Date/Time: 06/23/25 16:26
== END 2025-06-23 16:26 | disposition home or self-care (01) ==
PROVIDERS: Emergency Provider Student in an Organized Health Care Education/Training Program; PCP Nurse Practitioner Family
DX: H10.31 Unspecified acute conjunctivitis, right eye (principal); Z94.0 Kidney transplant status; Z79.60 Long term (current) use of unspecified immunomodulators and immunosuppressants; Z87.891 Personal history of nicotine dependence
CPT/HCPCS: 99283